=== PATIENT | female | born 1950 | race Caucasian/White ===

== ENCOUNTER → 2020-01-26 13:47 | Outpatient (BNVA) | payer MEDICARE, MEDICAID, SELFPAY | PROVIDERS: PCP Pediatrics; Visit Provider Surgery | DX: K40.90 Unilateral inguinal hernia, without obstruction or gangrene, not specified as recurrent (principal) | CPT/HCPCS: 99212 ==

== ENCOUNTER 2020-03-06 18:59 | Emergency (ER) | payer MEDICARE, MEDICAID, SELFPAY ==
[2020-03-06 19:07] VITALS: BP 185/91; PULSE 70; PULSE 74; RESP 18; TEMP 36.5; O2SAT 98; BMI 26.6
[2020-03-06 19:19] VITALS: BP 210/103; PULSE 69; RESP 18
--- NOTE | 2020-03-06 19:19 | XR_ITS ---
EXAMINATION: XR CHEST CLINICAL INFORMATION: Altered mental status COMPARISON: 12/29/2019 TECHNIQUE: Frontal view of the chest was obtained. FINDINGS: Again noted is a TAVR, spine stimulator and extensive clips in the midepigastrium. Heart size within normal limits. No evidence of CHF. Bibasilar atelectasis is seen, unchanged. XR/XR chest 1V IMPRESSION: No acute intrathoracic disease.
--- NOTE | 2020-03-06 19:19 | ECG_ITS ---
Test Reason : DIALYSIS Blood Pressure : / mmHG Vent. Rate : 075 BPM Atrial Rate : 075 BPM P-R Int : 218 ms QRS Dur : 098 ms QT Int : 434 ms P-R-T Axes : 069 -47 058 degrees QTc Int : 484 ms Sinus rhythm with 1st degree A-V block Left axis deviation Septal infarct (cited on or before 03-SEP-2014) Abnormal ECG When compared with ECG of 29-DEC-2019 09:39, QRS axis Shifted left Referred By: Bon Sanders Electronically Signed By:NEY VIVEROS
--- NOTE | 2020-03-06 19:35 | ED_ITS ---
HPI - General Adult General Chief complaint: General Medical Stated complaint: Dialysis Time Seen by Provider: 03/06/20 19:19 Source: patient Mode of arrival: EMS Limitations: no limitations History of Present Illness HPI narrative: patient's history of alcohol use cirrhosis and kidney failure on dialysis for last 1 year patient had dialysis 2 days ago and is due for dialysis tomorrow came by EMS for increased weakness lethargic since yesterday patient had chills also denied any fever cold symptoms cough shortness of breath Onset (ago): day(s) (1) Related Data Home Medications Medication Instructions Recorded Confirmed amlodipine 10 mg tablet 10 mg PO DAILY 01/26/20 aspirin 81 mg tablet,delayed 81 mg PO QAM 01/26/20 release famotidine 20 mg tablet mg PO 01/26/20 folic acid 1 mg tablet 1 mg PO DAILY 01/26/20 levothyroxine 25 mcg tablet 25 mcg PO DAILY 01/26/20 oxycodone 5 mg tablet 5 mg PO BID PRN 01/26/20 ropinirole 0.5 mg tablet 0.5 mg PO BEDTIME 01/26/20 rosuvastatin 10 mg tablet 10 mg PO BEDTIME 01/26/20 venlafaxine 37.5 mg 37.5 mg PO DAILY 01/26/20 capsule,extended release 24 hr Previous Rx's Medication Instructions Recorded cefuroxime axetil 250 mg PO BID 7 Days #14 tab 03/07/20 Allergies Allergy/AdvReac Type Severity Reaction Status Date / Time Sulfa (Sulfonamide Allergy Mild HIVES Unverified 12/16/19 15:47 Antibiotics) Heparin Analogues Allergy Unknown UNKNOWN Unverified 12/16/19 15:47 [Heparin Agents] verapamil Allergy Unknown unknown Verified 01/26/20 14:08 Review of Systems Review of Systems: REVIEW OF SYSTEMS: Pertinent positives and negatives are stated above in the history. GEN: no fever, chills+ , fatigue+ HEENT: no nasal congestion, sore throat, ear pain NEURO: no headache, dizziness, focal weakness PULM: no cough, shortness of breath CV: no chest pain, palpitations, LE edema ABD: no abdominal pain, nausea, vomiting, diarrhea : no dysuria, urgency, frequency SKIN: no rash ROS otherwise negative x 10 PMFSH Past Medical History Medical History Anemia Arthritis Asthma Bronchitis Cirrhosis COPD (chronic obstructive pulmonary disease) Coronary artery disease DJD (degenerative joint disease) of thoracic spine End-stage renal disease (ESRD) Neuropathy Surgical History History of liver transplant History of surgery on arm Social History Social History Alcohol intake: former Smoking Status: Current every day smoker Use of substances other than those prescribed or required for medical reasons: No Advance Directives: No Physical Exam Vital Signs: Vital Signs: Last Vital Signs Temp 97.4 F 03/06/20 22:32 Pulse 66 03/06/20 22:32 Resp 18 03/06/20 22:32 BP 195/104 H 03/06/20 22:32 Pulse Ox 96 03/06/20 22:32 Body Mass Index 26.6 VITAL SIGNS: Reviewed. GENERAL: Well developed, well nourished, in no acute distress. HEAD: Normocephalic/atraumatic, EYES: PERRLA No pallor/icterus noted OROPHARYNX: Oral mucosa moist no oral lesions NECK: Supple, no adenopathy LUNGS: Normal breath sounds. No adventitious sounds or accessory muscle use CARDIOVASCULAR: Regular rate and rhythm without noted murmurs, no JVD or lower extremity edema. ABDOMEN: Soft, non-tender, non-distended with normal bowel sounds. No rigidity. No guarding. No palpable masses or hernias noted MUSCULOSKELETAL: No tenderness, deformities, EXTREMITIES: No cyanosis or edema. SKIN: no rashes, ulcerations, jaundice, pallor NEUROLOGIC: Alert and oriented x 3. Strength and sensation to light touch were grossly intact normal speech Course Course Course Narrative: patient with dialysis renal failure urine shows wbc's suggestive of UTI patient feeling weak will give her IV Rocephin her lactic acid is normal white counts are normal in complaining of subjective weakness no signs of sepsis at this time will admit patient for weakness and UTI as patient lives alone and feeling weak Reevaluation(s) Reevaluation #1: pt decided to go Home by [facility] , will dc her home Medical Decision Making [facility] Narrative Medical decision making narrative: patient has nonspecific complaints weakness has slight UTI by WBC counts are normal not septic also has end-stage renal di sease plan for dialysis in the morning gave her Rocephin patient became very erratic and anxious not sure she is safe to go home as patient lives alone will get case management in 1 Lab Data Result diagrams: 03/06/20 19:37 03/06/20 20:36 Labs: Lab Results 03/06/20 03/06/20 03/06/20 Range/Units 19:37 19:37 19:37 WBC 7.1 (4.8-10.8) X10*3/uL RBC 4.53 (4.20-5.50) X10*6/uL Hgb 12.6 (12.0-16.0) g/dl Hct 40.2 (37-47) % MCV 88.7 (80-98) fL MCH 27.8 (27.0-33.0) pg MCHC 31.3 (31.0-35.0) g/dl RDW 17.2 H (11.0-16.0) % Plt Count 181 (160-400) X10*3/uL MPV 10.7 (9.4-12.3) fL Immature Gran % (Auto) 0.1 (0.0-0.4) % Neut % (Auto) 84.1 H (45-73) % Lymph % (Auto) 11.5 L (20-40) % [place]lin % (Auto) 3.5 (2-11) % Eos % (Auto) 0.4 (0-4) % Baso % (Auto) 0.4 (0-2) % Lymph # (Auto) 0.8 L (1.2-4.9) X10*3/uL [place] # (Auto) 0.3 (0.1-1.2) X10*3/uL Eos # (Auto) 0.0 (0.0-0.4) X10*3/uL Baso # (Auto) 0.0 (0.0-0.2) X10*3/uL Abs Immat Gran (auto) 0.01 (0.00-0.03) X10*3/uL Absolute Neuts (auto) 6.0 (2.0-8.3) X10*3/uL Absolute Nucleated RBC 0.000 (0.0-0.012) X10*3/uL Nucleated RBC % (auto) 0.0 (0.0-0.2) /100WBC PT (10.8-13.0) SEC INR (0.9-1.1) Sodium Cancelled Potassium Cancelled Chloride Cancelled Carbon Dioxide Cancelled Anion Gap Cancelled BUN Cancelled Creatinine Cancelled Estim Creat Clear Calc Cancelled Estimated GFR Cancelled Random Glucose Cancelled Lactic Acid 0.6 (0.5-2.0) mmol/L Calcium Cancelled Total Bilirubin Cancelled Direct Bilirubin Cancelled AST Cancelled ALT Cancelled Alkaline Phosphatase Cancelled Total Protein Cancelled Albumin Cancelled Urine Color Urine Appearance Urine pH (5.0-8.0) Ur Specific [place] (1.005-1.025) Urine Protein (NEG-TRACE) MG/DL Urine Glucose (UA) (NEG) MG/DL Urine Ketones (NEG) MG/DL Urine Blood (NEG) Urine Nitrite (NEG) Ur Leukocyte Esterase (NEG) Urine RBC (0) /HPF Urine WBC (0-4) /HPF Ur Squamous Epith Cells /LPF Urine Bacteria /LPF Coronavirus (PCR) (Negative) Influenza Type A (PCR) (Negative) Influenza Type B (PCR) (Negative) RSV RNA Qual (PCR) (Negative) 03/06/20 03/06/20 03/06/20 Range/Units 19:38 20:34 20:36 WBC (4.8-10.8) X10*3/uL RBC (4.20-5.50) X10*6/uL Hgb (12.0-16.0) g/dl Hct (37-47) % MCV (80-98) fL MCH (27.0-33.0) pg MCHC (31.0-35.0) g/dl RDW (11.0-16.0) % Plt Count (160-400) X10*3/uL MPV (9.4-12.3) fL Immature Gran % (Auto) (0.0-0.4) % Neut % (Auto) (45-73) % Lymph % (Auto) (20-40) % [place] % (Auto) (2-11) % Eos % (Auto) (0-4) % Baso % (Auto) (0-2) % Lymph # (Auto) (1.2-4.9) X10*3/uL [place] # (Auto) (0.1-1.2) X10*3/uL Eos # (Auto) (0.0-0.4) X10*3/uL Baso # (Auto) (0.0-0.2) X10*3/uL Abs Immat Gran (auto) (0.00-0.03) X10*3/uL Absolute Neuts (auto) (2.0-8.3) X10*3/uL Absolute Nucleated RBC (0.0-0.012) X10*3/uL Nucleated RBC % (auto) (0.0-0.2) /100WBC PT 11.7 (10.8-13.0) SEC INR 1.0 (0.9-1.1) Sodium 137 Potassium 5.2 H Chloride 98 Carbon Dioxide 22 Anion Gap 22 H BUN 52 H Creatinine 6.89 H* Estim Creat Clear Calc 7.5 Estimated GFR 6 Random Glucose 93 Lactic Acid (0.5-2.0) mmol/L Calcium 8.3 L Total Bilirubin 0.4 Direct Bilirubin 0.2 AST 24 ALT 14 Alkaline Phosphatase 112 Total Protein 6.5 Albumin 3.8 Urine Color Urine Appearance Urine pH (5.0-8.0) Ur Specific [place] (1.005-1.025) Urine Protein (NEG-TRACE) MG/DL Urine Glucose (UA) (NEG) MG/DL Urine Ketones (NEG) MG/DL Urine Blood (NEG) Urine Nitrite (NEG) Ur Leukocyte Esterase (NEG) Urine RBC (0) /HPF Urine WBC (0-4) /HPF Ur Squamous Epith Cells /LPF Urine Bacteria /LPF Coronavirus (PCR) NEGATIVE (Negative) Influenza Type A (PCR) NEGATIVE (Negative) Influenza Type B (PCR) NEGATIVE (Negative) RSV RNA Qual (PCR) NEGATIVE (Negative) 03/06/20 Range/Units 23:04 WBC (4.8-10.8) X10*3/uL RBC (4.20-5.50) X10*6/uL Hgb (12.0-16.0) g/dl Hct (37-47) % MCV (80-98) fL MCH (27.0-33.0) pg MCHC (31.0-35.0) g/dl RDW (11.0-16.0) % Plt Count (160-400) X10*3/uL MPV (9.4-12.3) fL Immature Gran % (Auto) (0.0-0.4) % Neut % (Auto) (45-73) % Lymph % (Auto) (20-40) % [place] % (Auto) (2-11) % Eos % (Auto) (0-4) % Baso % (Auto) (0-2) % Lymph # (Auto) (1.2-4.9) X10*3/uL [place] # (Auto) (0.1-1.2) X10*3/uL Eos # (Auto) (0.0-0.4) X10*3/uL Baso # (Auto) (0.0-0.2) X10*3/uL Abs Immat Gran (auto) (0.00-0.03) X10*3/uL Absolute Neuts (auto) (2.0-8.3) X10*3/uL Absolute Nucleated RBC (0.0-0.012) X10*3/uL Nucleated RBC % (auto) (0.0-0.2) /100WBC PT (10.8-13.0) SEC INR (0.9-1.1) Sodium Potassium Chloride Carbon Dioxide Anion Gap BUN Creatinine Estim Creat Clear Calc Estimated GFR Random Glucose Lactic Acid (0.5-2.0) mmol/L Calcium Total Bilirubin Direct Bilirubin AST ALT Alkaline Phosphatase Total Protein Albumin Urine Color YELLOW Urine Appearance HAZY Urine pH 7.5 (5.0-8.0) Ur Specific [place] 1.020 (1.005-1.025) Urine Protein 2+ H (NEG-TRACE) MG/DL Urine Glucose (UA) NEG (NEG) MG/DL Urine Ketones NEG (NEG) MG/DL Urine Blood 2+ H (NEG) Urine Nitrite NEG (NEG) Ur Leukocyte Esterase 1+ H (NEG) Urine RBC 5-9 H (0) /HPF Urine WBC 15-29 H (0-4) /HPF Ur Squamous Epith Cells 3+ /LPF Urine Bacteria 2+ /LPF Coronavirus (PCR) (Negative) Influenza Type A (PCR) (Negative) Influenza Type B (PCR) (Negative) RSV RNA Qual (PCR) (Negative) ECG Data Attestation: I personally reviewed and interpreted this ECG as follows: Interpretation: normal sinus rhythm with heart rate of 75 left axis deviation normal interval no acute ST T wave changes impression no acute ischemia Discharge Plan Discharge Clinical Impression: Weakness, Acute UTI Patient Disposition: Home, Self-Care Instructions: Weakness (ED), Urinary Tract Infection in Older Adults (ED) Additional Instructions: have dialysis in the morning as scheduled Take antibiotics for slight UTI which you have. Report to the ER if high fever vomiting not feeling good Prescriptions: New cefuroxime axetil 250 mg tablet 250 mg PO BID 7 Days Qty: 14 RF: 0 No Action oxycodone 5 mg tablet 5 mg PO BID PRNRF: 0 amlodipine 10 mg tablet 10 mg PO DAILY RF: 0 ropinirole 0.5 mg tablet 0.5 mg PO BEDTIME RF: 0 rosuvastatin 10 mg tablet 10 mg PO BEDTIME RF: 0 venlafaxine 37.5 mg capsule,extended release 24hr 37.5 mg PO DAILY RF: 0 aspirin 81 mg tablet,delayed release (DR/EC) 81 mg PO QAM RF: 0 famotidine 20 mg tablet PO RF: 0 folic acid 1 mg tablet 1 mg PO DAILY RF: 0 levothyroxine 25 mcg tablet 25 mcg PO DAILY RF: 0
[2020-03-06 19:44] LABS: MANUAL DIFF FLAG NO
[2020-03-06 19:48] LABS: Basophils Percent Auto 0.4 % (0-2); Eosinophils Percent Auto 0.4 % (0-4); Hematocrit 40.2 % (37-47); Hemoglobin 12.6 g/dl (12.0-16.0); Imm Gran Abs Auto 0.01 X10*3/uL (0.00-0.03); Imm Gran Pct Auto 0.1 % (0.0-0.4); Lymphocytes Absolute Auto 0.8 X10*3/uL (1.2-4.9); Lymphocytes Percent Auto 11.5 % (20-40); Mean Corpuscular HGB Conc 31.3 g/dl (31.0-35.0); Mean Corpuscular Hemoglobin 27.8 pg (27.0-33.0); Mean Corpuscular Volume 88.7 fL (80-98); Mean Platelet Volume 10.7 fL (9.4-12.3); Monocytes Absolute Auto 0.3 X10*3/uL (0.1-1.2); Monocytes Percent Auto 3.5 % (2-11); Neutrophils Percent Auto 84.1 % (45-73); Platelet Count 181 X10*3/uL (160-400); Red Blood Count 4.53 X10*6/uL (4.20-5.50); Red Cell Distribution Width 17.2 % (11.0-16.0); White Blood Count 7.1 X10*3/uL (4.8-10.8)
[2020-03-06 20:26] LABS: Lactic Acid 0.6 mmol/L (0.5-2.0)
[2020-03-06 20:28] LABS: Influenza A PCR NEGATIVE (Negative); Influenza B PCR NEGATIVE (Negative); Resp Syncy Virus RNA Qual PCR NEGATIVE (Negative); SARS COV2 PCR INHOUSE NEGATIVE (Negative)
[2020-03-06 20:50] LABS: Prothrombin Time 11.7 SEC (10.8-13.0)
[2020-03-06 21:43] LABS: Alanine Aminotransferase 14 U/L (0-31); Albumin Level 3.8 g/dL (3.5-5.0); Alkaline Phosphatase 112 U/L (39-117); Anion Gap 22 (12-20); Aspartate Amino Transferase 24 U/L (5-31); Bilirubin Direct 0.2 mg/dL (0.0-0.5); Bilirubin Total 0.4 mg/dL (0.0-1.0); Blood Urea Nitrogen 52 mg/dL (9-16); Calcium 8.3 mg/dL (8.4-10.2); Carbon Dioxide 22 mmol/L (22-29); Chloride 98 mmol/L (96-108); Creatinine Clr Calc Pharmacy 7.5; Estimated Glomerular Filt Rate 6; Glucose Random 93 mg/dL (60-115); Potassium 5.2 mmol/l (3.3-5.1); Sodium 137 mmol/L (135-145); Total Protein 6.5 g/dL (6.5-8.0)
[2020-03-06 22:32] VITALS: BP 195/104; PULSE 66; RESP 18; TEMP 36.3; O2SAT 96
[2020-03-06 23:10] LABS: Appearance Urine HAZY; Color Urine YELLOW; Glucose Urine UA NEG (NEG); Leukocyte Esterase Urine 1+ (NEG); Nitrite Urine NEG (NEG); PH 7.5 (5.0-8.0); Urine Blood 2+ (NEG); Urine Ketones NEG (NEG); Urine Protein 2+ MG/DL (NEG-TRACE)
[2020-03-06 23:16] LABS: Bacteria Urine 2+ /LPF; Squamous Epithelial Cell Urine 3+ /LPF
--- NOTE | 2020-03-06 23:21 | PC.NURSE ---
pt reports feeling weak and shakey. pt passed po challenge. monitoring at this time.
--- NOTE | 2020-03-07 | PC.NURSE ---
Pt stated i cant eat and drink. pt passed po challenge. without difficulty.
--- NOTE | 2020-03-07 00:03 | CT_ITS ---
EXAMINATION: CT HEAD WITHOUT CONTRAST CLINICAL INFORMATION: Altered mental status. COMPARISON: Multiple priors, most recently 12/29/2019 TECHNIQUE: Contiguous axial imaging was performed from the skull base to vertex without intravenous administration of contrast. This CT examination was performed using dose optimization techniques as appropriate, variously including the following: *Automated exposure control *Adjustment of mA and/or kV according to patient size (this includes techniques or standardized protocols for targeted exams where dose is matched to indication/reason for exam; i.e. extremities or head) *Use of iterative reconstruction technique DLP: 887 mGy-cm FINDINGS: There is no evidence of acute intracranial hemorrhage or territorial infarction. No abnormal mass effect or midline shift is seen. Villa to white matter differentiation is well preserved. No extra-axial fluid collections are identified. The ventricles are normal in size. Mild chronic white matter small vessel ischemic changes redemonstrated. The osseous structures and soft tissues are normal. The mastoid air cells and visualized portions of the paranasal sinuses are well aerated. CT/CT head/brain wo con IMPRESSION: No acute intracranial pathology.
[2020-03-07] MEDS: cefTRIAXone sodium 1 GM in 0.9 % Sodium Chloride 50 ML IV (00:27)
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
[2020-03-07 02:00] VITALS: RESP 18
--- NOTE | 2020-03-07 02:35 | PC.NURSE ---
pt now sleeping. staff remains at bedside for safety.
== END 2020-03-07 02:51 | disposition home or self-care (01) ==
PROVIDERS: Emergency Provider Internal Medicine
DX: R53.1 Weakness (principal); Z20.828 Contact with and (suspected) exposure to other viral communicable diseases; N30.00 Acute cystitis without hematuria; N18.6 End stage renal disease; Z99.2 Dependence on renal dialysis; K70.30 Alcoholic cirrhosis of liver without ascites
CPT/HCPCS: 0241U; 36415; 70450; 71045; 80048; 80076; 81001; 83605; 85025; 85610; 87040; 87086; 93005; 96365; 99284; J0696

== ENCOUNTER 2020-03-08 12:42 | Inpatient (IN) | payer MEDICARE, MEDICAID, SELFPAY ==
[2020-03-08 12:48] VITALS: BP 198/90; BP 200/91; PULSE 80; PULSE 85; RESP 16; TEMP 37; O2SAT 96; O2SAT 97; BMI 23.1
--- NOTE | 2020-03-08 13:13 | ECG_ITS ---
Test Reason : AMS Blood Pressure : / mmHG Vent. Rate : 081 BPM Atrial Rate : 081 BPM P-R Int : 204 ms QRS Dur : 108 ms QT Int : 420 ms P-R-T Axes : 053 -27 073 degrees QTc Int : 487 ms Normal sinus rhythm Septal infarct (cited on or before 03-SEP-2014) Abnormal ECG When compared with ECG of 06-MAR-2020 20:22, No significant change was found Referred By: Evelina Sterling Electronically Signed By:NEY VIVEROS
--- NOTE | 2020-03-08 13:16 | XR_ITS ---
EXAMINATION: XR CHEST CLINICAL INFORMATION: The kidneys. COMPARISON: Chest 03/06/2020 TECHNIQUE: Frontal view of the chest was obtained. FINDINGS: The lungs are well-expanded with platelike atelectasis right lung base. Rest of lungs are expanded and clear. The heart size is borderline enlarged. Pulmonary vascularity is normal. There is aortic valve stent in place. The surgical maninder in the epigastric region from previous intervention. There is a spinal electrode in mid dorsal spine. No gross bony abnormality. XR/XR chest 1V IMPRESSION: No acute process. Borderline cardiomegaly. No major change from 12/29/2019
--- NOTE | 2020-03-08 13:17 | ED.GENADULT ---
HPI - General Adult General Chief complaint: General Medical Stated complaint: diff speaking,weakness Time Seen by Provider: 03/08/20 13:03 Source: patient and EMS Mode of arrival: EMS History of Present Illness HPI narrative: 69-year-old female with a past medical history of alcohol use cirrhosis, kidney failure on dialysis (T/T/Sat), asthma, COPD, CAD, recent UTI diagnosed on 03/06, presenting to ED complaining increased lethargy/generalized fatigue & weakness. Patient was seen in the ED 2 days ago for same symptoms, plan was for admission for weakness and UTI however patient refused and went home. Patient denies taking prescribed Ceftin for UTI, also missed dialysis yesterday. Denies fever, chills, SOB/CP, abdominal pain, nausea/vomiting. Patient denies fall/trauma Onset (ago): day(s) Related Data Home Medications Medication Instructions Recorded Confirmed amlodipine 10 mg tablet 10 mg PO DAILY 01/26/20 03/08/20 aspirin 81 mg tablet,delayed 81 mg PO QAM 01/26/20 03/08/20 release famotidine 20 mg tablet 20 mg PO BID 01/26/20 03/08/20 folic acid 1 mg tablet 1 mg PO DAILY 01/26/20 03/08/20 levothyroxine 25 mcg tablet 25 mcg PO DAILY 01/26/20 03/08/20 oxycodone 5 mg tablet 5 mg PO BID PRN 01/26/20 03/08/20 ropinirole 0.5 mg tablet 0.5 mg PO BEDTIME 01/26/20 03/08/20 rosuvastatin 10 mg tablet 10 mg PO BEDTIME 01/26/20 03/08/20 venlafaxine 37.5 mg 37.5 mg PO DAILY 01/26/20 03/08/20 capsule,extended release 24 hr allopurinol 100 mg PO DAILY 03/08/20 03/08/20 docusate sodium [DOK] 100 mg PO BID 03/08/20 03/08/20 fluorouracil 1 appl TOPICAL DAILY 03/08/20 03/08/20 sevelamer carbonate 1,600 mg PO TIDAC 03/08/20 03/08/20 sucralfate 1 g PO Q6H PRN 03/08/20 03/08/20 tacrolimus 1 mg PO BID 03/08/20 03/08/20 Previous Rx's Medication Instructions Recorded cefuroxime axetil 250 mg PO BID 7 Days #14 tab 03/07/20 Allergies Allergy/AdvReac Type Severity Reaction Status Date / Time Sulfa (Sulfonamide Allergy Mild HIVES Unverified 12/16/19 15:47 Antibiotics) Heparin Analogues Allergy Unknown UNKNOWN Unverified 12/16/19 15:47 [Heparin Agents] verapamil Allergy Unknown unknown Verified 01/26/20 14:08 Review of Systems Review of Systems: Constitutional: No Weight loss, No Fever, No Chills, + Fatigue, + Malaise Cardiovascular: No Chest Pain, No SOB, No Edema, No Palpitations Respiratory: No Cough, No Sputum, No Dyspnea Gastrointestinal: No Nausea, No Vomiting, No Diarrhea, No Constipation, No Abdominal pain Genitourinary: No Dysuria, No Urinary Frequency, No Hematuria Musculoskeletal: No joint pain, No Myalgias, No Joint Swelling Skin: No Skin Lesions, No rash Neuro: + Weakness, No Numbness Yes all other systems are reviewed and are negative [facility] Past Medical History Attestation statement: The following information was validated with the patient. Medical History (Updated 03/08/20 @ 16:55 by CHUCKY Jain) Anemia Arthritis Asthma Bronchitis Cirrhosis COPD (chronic obstructive pulmonary disease) Coronary artery disease DJD (degenerative joint disease) of thoracic spine End-stage renal disease (ESRD) Neuropathy Surgical History (Updated 03/08/20 @ 16:50 by Erick Venegas MD) History of liver transplant History of surgery on arm Social History Social History Alcohol intake: unknown Smoking Status: Unknown if ever smoked Use of substances other than those prescribed or required for medical reasons: Unknown Advance Directives: No Advance Directives Information Provided: Yes Physical Exam Vital Signs: Vital Signs: Last Vital Signs Temp 98.6 F 03/08/20 14:00 Pulse 81 03/08/20 14:00 Resp 16 03/08/20 14:00 BP 189/90 H 03/08/20 14:00 Pulse Ox 98 03/08/20 14:00 Body Mass Index 23.1 Const: General: lethargic Orientation/consciousness: oriented to person, oriented to place and lethargic Limitations: no limitations HENMT: Other: Atraumatic Head: Yes normal to inspection Ears: hearing grossly normal bilaterally General nose exam: Normal external nose present Face and sinus: Yes normal facial exam Eyes: General: appearance normal, both eyes and all related structures Pupils: Equal, round and reactive pupils present EOM: EOMs intact bilaterally Neck: Neck: Yes normal visual inspection and Yes no meningeal signs Resp: Effort & Inspection: normal respiratory effort Auscultation: clear to auscultation bilaterally and no wheezes Cardio: Rate: regular rate Heart sounds: S1 normal heart sound present and S2 normal heart sound present GI: Inspection: Yes normal to inspection Palpation (GI): Soft to palpation, nontender, no guarding and not rigid Skin: Other: + ecchymosis of bilateral arms and superficial abrasions/skin tears Rashes: no rashes Neuro: General: oriented to person, oriented to place, moves all extremities, no meningeal signs and no focal motor deficits Cranial nerves: Yes Equal, round and reactive pupils present Speech: Other speech findings present (Neuro) (Slowed) Gait exam (Neuro): Normal gait present Extrem: Other: No LE edema General: Yes normal to inspection Course Course Course Narrative: -patient has been continually refusing labs, imaging, and COVID-19 swab -1600--no leukocytosis, H&H at baseline, lactic negative, ammonia WNL, troponin 105.9 > likely from renal dysfunction -head CT and CXR today without acute findings -1653--potassium 5.3, anion gap 20, BUN/creatinine elevated 84/9.0 > as anticipated due to patient missing dialysis. patient admitted to hospitalist Medical Decision Making [facility] Narrative Medical decision making narrative: 69-year-old female with a past medical history of alcohol use cirrhosis, kidney failure on dialysis (T/T/Sat), asthma, COPD, CAD, recent UTI diagnosed on 03/06, presenting to ED complaining increased lethargy/generalized fatigue & weakness. On exam hypertensive, NAD, A&Ox2, superficial bruising/skin tears noted, no focal deficits. Concern for encephalopathy/metabolic abnormalities due to ESRD and missing HD vs infectious etiology or sepsis with recent UTI not properly treated vs ICH. Plan: EKG, labs, Head CT, CXR, Lactic, Blood Cx, IV Ceftriaxone for previous UTI, anticipated admission Lab Data Result diagrams: 03/08/20 13:41 03/08/20 15:51 Labs: Lab Results 03/08/20 03/08/20 03/08/20 Range/Units 13:38 13:41 13:41 WBC 9.0 (4.8-10.8) X10*3/uL RBC 4.13 L (4.20-5.50) X10*6/uL Hgb 11.5 L (12.0-16.0) g/dl Hct 36.4 L (37-47) % MCV 88.1 (80-98) fL MCH 27.8 (27.0-33.0) pg MCHC 31.6 (31.0-35.0) g/dl RDW 17.5 H (11.0-16.0) % Plt Count 167 (160-400) X10*3/uL MPV 11.0 (9.4-12.3) fL Immature Gran % (Auto) 0.3 (0.0-0.4) % Neut % (Auto) 81.6 H (45-73) % Lymph % (Auto) 11.8 L (20-40) % [place] % (Auto) 5.3 (2-11) % Eos % (Auto) 0.3 (0-4) % Baso % (Auto) 0.7 (0-2) % Lymph # (Auto) 1.1 L (1.2-4.9) X10*3/uL [place] # (Auto) 0.5 (0.1-1.2) X10*3/uL Eos # (Auto) 0.0 (0.0-0.4) X10*3/uL Baso # (Auto) 0.1 (0.0-0.2) X10*3/uL Abs Immat Gran (auto) 0.03 (0.00-0.03) X10*3/uL Absolute Neuts (auto) 7.3 (2.0-8.3) X10*3/uL Absolute Nucleated RBC 0.000 (0.0-0.012) X10*3/uL Nucleated RBC % (auto) 0.0 (0.0-0.2) /100WBC PT 12.2 (10.8-13.0) SEC INR 1.0 (0.9-1.1) APTT 32.5 (24.1-38.0) SEC Sodium Potassium Chloride Carbon Dioxide Anion Gap BUN Creatinine Estim Creat Clear Calc Estimated GFR Random Glucose Lactic Acid 0.9 (0.5-2.0) mmol/L Calcium Magnesium Total Bilirubin Direct Bilirubin AST ALT Alkaline Phosphatase Ammonia (13-55) umol/L Troponin I High Sens (<3.5-17.0) ng/L Total Protein Albumin COVID-19 ([facility]) (Negative) COVID-19 Clin Com 03/08/20 03/08/20 03/08/20 Range/Units 13:41 13:41 14:40 WBC (4.8-10.8) X10*3/uL RBC (4.20-5.50) X10*6/uL Hgb (12.0-16.0) g/dl Hct (37-47) % MCV (80-98) fL MCH (27.0-33.0) pg MCHC (31.0-35.0) g/dl RDW (11.0-16.0) % Plt Count (160-400) X10*3/uL MPV (9.4-12.3) fL Immature Gran % (Auto) (0.0-0.4) % Neut % (Auto) (45-73) % Lymph % (Auto) (20-40) % [place] % (Auto) (2-11) % Eos % (Auto) (0-4) % Baso % (Auto) (0-2) % Lymph # (Auto) (1.2-4.9) X10*3/uL [place] # (Auto) (0.1-1.2) X10*3/uL Eos # (Auto) (0.0-0.4) X10*3/uL Baso # (Auto) (0.0-0.2) X10*3/uL Abs Immat Gran (auto) (0.00-0.03) X10*3/uL Absolute Neuts (auto) (2.0-8.3) X10*3/uL Absolute Nucleated RBC (0.0-0.012) X10*3/uL Nucleated RBC % (auto) (0.0-0.2) /100WBC PT (10.8-13.0) SEC INR (0.9-1.1) APTT (24.1-38.0) SEC Sodium Cancelled Potassium Cancelled Chloride Cancelled Carbon Dioxide Cancelled Anion Gap Cancelled BUN Cancelled Creatinine Cancelled Estim Creat Clear Calc Cancelled Estimated GFR Cancelled Random Glucose Cancelled Lactic Acid (0.5-2.0) mmol/L Calcium Cancelled Magnesium Cancelled Total Bilirubin Cancelled Direct Bilirubin Cancelled AST Cancelled ALT Cancelled Alkaline Phosphatase Cancelled Ammonia 41 (13-55) umol/L Troponin I High Sens 105.9 H (<3.5-17.0) ng/L Total Protein Cancelled Albumin Cancelled COVID-19 ([facility]) (Negative) COVID-19 Clin Com 03/08/20 03/08/20 Range/Units 15:51 16:19 WBC (4.8-10.8) X10*3/uL RBC (4.20-5.50) X10*6/uL Hgb (12.0-16.0) g/dl Hct (37-47) % MCV (80-98) fL MCH (27.0-33.0) pg MCHC (31.0-35.0) g/dl RDW (11.0-16.0) % Plt Count (160-400) X10*3/uL MPV (9.4-12.3) fL Immature Gran % (Auto) (0.0-0.4) % Neut % (Auto) (45-73) % Lymph % (Auto) (20-40) % [place] % (Auto) (2-11) % Eos % (Auto) (0-4) % Baso % (Auto) (0-2) % Lymph # (Auto) (1.2-4.9) X10*3/uL [place] # (Auto) (0.1-1.2) X10*3/uL Eos # (Auto) (0.0-0.4) X10*3/uL Baso # (Auto) (0.0-0.2) X10*3/uL Abs Immat Gran (auto) (0.00-0.03) X10*3/uL Absolute Neuts (auto) (2.0-8.3) X10*3/uL Absolute Nucleated RBC (0.0-0.012) X10*3/uL Nucleated RBC % (auto) (0.0-0.2) /100WBC PT (10.8-13.0) SEC INR (0.9-1.1) APTT (24.1-38.0) SEC Sodium 142 Potassium 5.3 H Chloride 102 Carbon Dioxide 17 L Anion Gap 28 H BUN 84 H* D Creatinine 9.02 H* Estim Creat Clear Calc 6.0 Estimated GFR 4 Random Glucose 66 Lactic Acid (0.5-2.0) mmol/L Calcium 7.3 L D Magnesium 2.2 Total Bilirubin 0.4 Direct Bilirubin 0.2 AST 28 ALT 15 Alkaline Phosphatase 105 Ammonia (13-55) umol/L Troponin I High Sens (<3.5-17.0) ng/L Total Protein 6.1 L Albumin 3.4 L COVID-19 ([facility]) Negative (Negative) COVID-19 Clin Com See Note Discharge Plan Discharge Clinical Impression: Acute UTI, AMS (altered mental status), End-stage renal disease (ESRD) Patient Disposition: Admitted As Inpatient
--- NOTE | 2020-03-08 13:38 | CT_ITS ---
EXAMINATION: CT HEAD WITHOUT CONTRAST CLINICAL INFORMATION: Fall COMPARISON: Previous head CT scans most recent from yesterday TECHNIQUE: Contiguous axial imaging was performed from the skull base to vertex without intravenous administration of contrast. This CT examination was performed using dose optimization techniques as appropriate, variously including the following: *Automated exposure control *Adjustment of mA and/or kV according to patient size (this includes techniques or standardized protocols for targeted exams where dose is matched to indication/reason for exam; i.e. extremities or head) *Use of iterative reconstruction technique DLP: 1132 mGy-cm FINDINGS: Exam is limited due to motion artifact. There is no evidence of an extra-axial collection. There is no evidence of intra-axial or extra-axial hemorrhage. The extra-axial CSF spaces adjacent to the frontal lobes are slightly prominent questionable for mild atrophy. Ventricles and extra-axial CSF spaces are otherwise appropriate. There is mild nonspecific periventricular white matter disease. No mass, mass effect or infarct is seen. Review of bone windows is normal. Visualized paranasal sinuses, mastoid air cells and middle ears are clear. CT/CT head/brain wo con IMPRESSION: No acute intracranial pathology.
--- NOTE | 2020-03-08 13:44 | PC.NURSE ---
Pt is admentally refusing COVID swab, swearing, yelling I dont have it , confused alert and oriented to place and person. Will attempt to swab at a later time
[2020-03-08 13:51] LABS: MANUAL DIFF FLAG NO
[2020-03-08 13:54] LABS: Basophils Absolute Auto 0.1 X10*3/uL (0.0-0.2); Basophils Percent Auto 0.7 % (0-2); Eosinophils Percent Auto 0.3 % (0-4); Hematocrit 36.4 % (37-47); Hemoglobin 11.5 g/dl (12.0-16.0); Imm Gran Abs Auto 0.03 X10*3/uL (0.00-0.03); Imm Gran Pct Auto 0.3 % (0.0-0.4); Lymphocytes Absolute Auto 1.1 X10*3/uL (1.2-4.9); Lymphocytes Percent Auto 11.8 % (20-40); Mean Corpuscular HGB Conc 31.6 g/dl (31.0-35.0); Mean Corpuscular Hemoglobin 27.8 pg (27.0-33.0); Mean Corpuscular Volume 88.1 fL (80-98); Monocytes Absolute Auto 0.5 X10*3/uL (0.1-1.2); Monocytes Percent Auto 5.3 % (2-11); Neutrophils Absolute Auto 7.3 X10*3/uL (2.0-8.3); Neutrophils Percent Auto 81.6 % (45-73); Platelet Count 167 X10*3/uL (160-400); Red Blood Count 4.13 X10*6/uL (4.20-5.50); Red Cell Distribution Width 17.5 % (11.0-16.0)
[2020-03-08 14:00] VITALS: BP 189/90; PULSE 81; RESP 16; TEMP 37; O2SAT 98
[2020-03-08 14:02] LABS: Prothrombin Time 12.2 SEC (10.8-13.0)
[2020-03-08 14:05] LABS: Partial Thromboplastin Time 32.5 SEC (24.1-38.0)
--- NOTE | 2020-03-08 14:12 | PC.NURSE ---
Pt refusing most/all care at this time, fixated on COVID test, attempted to re-direct/give reassurance, pt remains agitated/confused, attempting to get oob, not allowing IV fluids/labs/ ekg. Provider aware
[2020-03-08 14:30] LABS: Lactic Acid 0.9 mmol/L (0.5-2.0)
[2020-03-08 14:33] LABS: Troponin-I High Sensitivity 105.9 ng/L (<3.5-17.0)
[2020-03-08] MEDS: LORazepam 2 MG/ML VIAL 1 MG IVPUSH (14:56)
[2020-03-08] MEDS: 0.9 % Sodium Chloride 1,000 ML 999 ML IVCONT (14:56)
[2020-03-08] MEDS: cefTRIAXone sodium 1 GM in 0.9 % Sodium Chloride 50 ML IV (14:56)
--- NOTE | 2020-03-08 15:06 | PC.NURSE ---
Called sister, Jena, with darcy and dr. chan, pt hesitant but agreeable to additional labs and medication, medicated per mar after much redirection, pt remains confused, agitated, and sometimes physically combative.
[2020-03-08 15:20] LABS: Ammonia 41 umol/L (13-55)
--- NOTE | 2020-03-08 16:23 | PC.NURSE ---
Pt is sleeping on and off, remains mildly agitated when awoke. Dr. Neal able to obtain covid swab.
[2020-03-08 16:44] LABS: COVID-19 Test Negative (Negative); IDNOW Serial# 9DD0AD1C
[2020-03-08 16:45] LABS: Alanine Aminotransferase 15 U/L (0-31); Albumin Level 3.4 g/dL (3.5-5.0); Alkaline Phosphatase 105 U/L (39-117); Anion Gap 28 (12-20); Aspartate Amino Transferase 28 U/L (5-31); Bilirubin Direct 0.2 mg/dL (0.0-0.5); Bilirubin Total 0.4 mg/dL (0.0-1.0); Blood Urea Nitrogen 84 mg/dL (9-16); Calcium 7.3 mg/dL (8.4-10.2); Carbon Dioxide 17 mmol/L (22-29); Chloride 102 mmol/L (96-108); Estimated Glomerular Filt Rate 4; Glucose Random 66 mg/dL (60-115); Magnesium 2.2 mg/dL (1.6-2.6); Potassium 5.3 mmol/l (3.3-5.1); Sodium 142 mmol/L (135-145); Total Protein 6.1 g/dL (6.5-8.0)
--- NOTE | 2020-03-08 16:55 | PM.IMHP ---
History of Present Illness Date of Service: 03/08/20 Chief Complaint: ams 69F Past med history of end-stage renal disease on hemodialysis and history of alcoholic cirrhosis status post liver transplant with functioning liver. Was sent in by her sister due to altered mental status. Patient was in ED 2 days prior to presentation with similar presentation. At that time she was alert enough to leave against medical advice. Workup at that point revealed urine with positive and wbc's, thought to be UTI, however, urine cultures since been negative. Patient continued to decline, she does not eat or drink very well. She was too weak to go day hemodialysis her last session which was Friday. It is unclear whether she went last Friday. Patient's sister came to visit her on day of presentation and found extremely lethargic, minimally verbal, unable to get out of bed, therefore called ambulance. Patient herself is not participatory or following commands or answering any questions. in ED labs Significant for increase in BUN from 52 to 84. Review of Systems Review of Systems: Constitutional: Denies fever, denies Chills, weak, no appetite Eyes: denies blurry vision ENT: denies sore throat CVS: denies chest pain Respiratory: Denies dyspnea GI: no abdominal pain : denies dysuria MSK: denies neck pain Skin: denies rash Neuro: motor weakness Psych: denies suicidal ideation Endocrine: denies heat/cold intoleratnce Hematologic: denies easy bleeding Allergy: denies hives [facility] Medical History Anemia Arthritis Asthma Bronchitis Cirrhosis COPD (chronic obstructive pulmonary disease) Coronary artery disease DJD (degenerative joint disease) of thoracic spine End-stage renal disease (ESRD) Neuropathy Pertinent family history: denies cad Surgical History History of liver transplant History of surgery on arm Social History (Updated 03/08/20 @ 16:59 by Erick Venegas MD) Alcohol intake: former Smoking Status: Unknown if ever smoked Use of substances other than those prescribed or required for medical reasons: Unknown Advance Directives: No Advance Directives Information Provided: Yes Meds Allergies Allergy/AdvReac Type Severity Reaction Status Date / Time Sulfa (Sulfonamide Allergy Mild HIVES Unverified 12/16/19 15:47 Antibiotics) Heparin Analogues Allergy Unknown UNKNOWN Unverified 12/16/19 15:47 [Heparin Agents] verapamil Allergy Unknown unknown Verified 01/26/20 14:08 Home Medications Medication Instructions Recorded Confirmed Type amlodipine 10 mg tablet 10 mg PO DAILY 01/26/20 03/08/20 History aspirin 81 mg tablet,delayed 81 mg PO QAM 01/26/20 03/08/20 History release famotidine 20 mg tablet 20 mg PO BID 01/26/20 03/08/20 History folic acid 1 mg tablet 1 mg PO DAILY 01/26/20 03/08/20 History levothyroxine 25 mcg tablet 25 mcg PO DAILY 01/26/20 03/08/20 History oxycodone 5 mg tablet 5 mg PO BID PRN 01/26/20 03/08/20 History ropinirole 0.5 mg tablet 0.5 mg PO BEDTIME 01/26/20 03/08/20 History rosuvastatin 10 mg tablet 10 mg PO BEDTIME 01/26/20 03/08/20 History venlafaxine 37.5 mg 37.5 mg PO DAILY 01/26/20 03/08/20 History capsule,extended release 24 hr allopurinol 100 mg PO DAILY 03/08/20 03/08/20 History docusate sodium [DOK] 100 mg PO BID 03/08/20 03/08/20 History fluorouracil 1 appl TOPICAL DAILY 03/08/20 03/08/20 History sevelamer carbonate 1,600 mg PO TIDAC 03/08/20 03/08/20 History sucralfate 1 g PO Q6H PRN 03/08/20 03/08/20 History tacrolimus 1 mg PO BID 03/08/20 03/08/20 History Physical Exam Vital Signs and Narrative: Vital Signs: Last Vital Signs Temp 98.6 F 03/08/20 14:00 Pulse 81 03/08/20 14:00 Resp 16 03/08/20 14:00 BP 189/90 H 03/08/20 14:00 Pulse Ox 98 03/08/20 14:00 Body Mass Index 23.1 General: lethargic but awake, not answering questions HEENT: atraumatic Neck: normal to visual inspection CVS: S1, S2, RRR Resp: CTA bilateral Chest: non tender GI: soft, non tender, non distended : no CVA tenderness Skin: no rashes Extremities: no edema Neuro: grossly intact, not participatory Psych: impaired insight Results Labs CBC and Chem 7: 03/08/20 13:41 03/08/20 15:51 Labs: Laboratory Results - last 24 hr 03/08/20 03/08/20 03/08/20 13:38 13:41 13:41 MCV 88.1 MCH 27.8 MCHC 31.6 RDW 17.5 H Plt Count 167 MPV 11.0 Immature Gran % (Auto) 0.3 Neut % (Auto) 81.6 H Lymph % (Auto) 11.8 L [place] % (Auto) 5.3 Eos % (Auto) 0.3 Baso % (Auto) 0.7 Lymph # (Auto) 1.1 L [place] # (Auto) 0.5 Eos # (Auto) 0.0 Baso # (Auto) 0.1 Abs Immat Gran (auto) 0.03 Absolute Neuts (auto) 7.3 Absolute Nucleated RBC 0.000 Nucleated RBC % (auto) 0.0 PT 12.2 INR 1.0 APTT 32.5 Anion Gap Estim Creat Clear Calc Estimated GFR Random Glucose Lactic Acid 0.9 Calcium Magnesium Total Bilirubin Direct Bilirubin AST ALT Alkaline Phosphatase Ammonia Troponin I High Sens Total Protein Albumin COVID-19 ([facility]) COVID-[place] 03/08/20 03/08/20 03/08/20 13:41 13:41 14:40 MCV MCH MCHC RDW Plt Count MPV Immature Gran % (Auto) Neut % (Auto) Lymph % (Auto) [place] % (Auto) Eos % (Auto) Baso % (Auto) Lymph # (Auto) [place] # (Auto) Eos # (Auto) Baso # (Auto) Abs Immat Gran (auto) Absolute Neuts (auto) Absolute Nucleated RBC Nucleated RBC % (auto) PT INR APTT Anion Gap Cancelled Estim Creat Clear Calc Cancelled Estimated GFR Cancelled Random Glucose Cancelled Lactic Acid Calcium Cancelled Magnesium Cancelled Total Bilirubin Cancelled Direct Bilirubin Cancelled AST Cancelled ALT Cancelled Alkaline Phosphatase Cancelled Ammonia 41 Troponin I High Sens 105.9 H Total Protein Cancelled Albumin Cancelled COVID-19 ([facility]) COVID-Close Com 03/08/20 03/08/20 15:51 16:19 MCV MCH MCHC RDW Plt Count MPV Immature Gran % (Auto) Neut % (Auto) Lymph % (Auto) [place] % (Auto) Eos % (Auto) Baso % (Auto) Lymph # (Auto) [place] # (Auto) Eos # (Auto) Baso # (Auto) Abs Immat Gran (auto) Absolute Neuts (auto) Absolute Nucleated RBC Nucleated RBC % (auto) PT INR APTT Anion Gap 28 H Estim Creat Clear Calc 6.0 Estimated GFR 4 Random Glucose 66 Lactic Acid Calcium 7.3 L D Magnesium 2.2 Total Bilirubin 0.4 Direct Bilirubin 0.2 AST 28 ALT 15 Alkaline Phosphatase 105 Ammonia Troponin I High Sens Total Protein 6.1 L Albumin 3.4 L COVID-19 ([facility]) Negative COVID-19 Clin Com See Note Imaging Radiologist's Impressions: Impressions Chest X-Ray 03/08/20 13:16 IMPRESSION: No acute process. Borderline cardiomegaly. No major change from 12/29/[address] 03/08/20 13:38 IMPRESSION: No acute intracranial pathology. Assessment and Plan (1) Metabolic encephalopathy: Status: Acute (2) Cirrhosis: Problem details: s/p transplant, liver functioning Status: Acute (3) End-stage renal disease (ESRD): Status: Acute 69F presented with weaknes, ams metabolic encephalopathy differential: Uremic encephalopathy from missing hemodialysis, malnutrition, UTI, pseudodementia from depression nephrology consult psych eval empiric ceftriaxone hold ropinorole, oxycodone history of liver cirrhosis status post transplant continue tacrolimus cad asa, crestor
[2020-03-08 17:20] VITALS: BP 182/84; PULSE 83; RESP 14; TEMP 36.8; O2SAT 95
[2020-03-08 17:56] LABS: Troponin-I High Sensitivity 97.2 ng/L (<3.5-17.0)
[2020-03-08 18:57] VITALS: BP 179/84; PULSE 84; RESP 16; O2SAT 98
[2020-03-08 21:11] VITALS: BP 203/91; PULSE 88; RESP 19; TEMP 36.2; O2SAT 96
--- NOTE | 2020-03-08 22:47 | PC.NURSE ---
PATIENT VERY ANXIOUS,IRRITATED,CONFUSED AND UNCOOPERATIVE.HIGH BP 203/91,REFUSED RECHECK AND MEDS.DR BEE NOTIFIED VIA [employer].NO NEW ORDERS OF THIS POINT.
[2020-03-08 23:56] VITALS: BP 196/94; PULSE 81; RESP 20; TEMP 36.6; O2SAT 98
[2020-03-09] VITALS (7 sets, daily range): BP systolic 166–198; BP diastolic 82–104; PULSE 78–128; RESP 18–20; TEMP 36.2–36.9; O2SAT 95–99
[2020-03-09] MEDS: 0.9 % Sodium Chloride Flush 3 ML SYRINGE IVFLUSH ×2 (00:05→08:52)
[2020-03-09] MEDS: hydrOXYzine HCL 25 MG TABLET PO (00:47)
[2020-03-09 06:36] LABS: MANUAL DIFF FLAG NO
[2020-03-09 06:40] LABS: Basophils Absolute Auto 0.1 X10*3/uL (0.0-0.2); Basophils Percent Auto 0.7 % (0-2); Eosinophils Absolute Auto 0.1 X10*3/uL (0.0-0.4); Hematocrit 34.6 % (37-47); Hemoglobin 11.3 g/dl (12.0-16.0); Imm Gran Abs Auto 0.02 X10*3/uL (0.00-0.03); Imm Gran Pct Auto 0.3 % (0.0-0.4); Lymphocytes Absolute Auto 1.4 X10*3/uL (1.2-4.9); Lymphocytes Percent Auto 18.9 % (20-40); Mean Corpuscular HGB Conc 32.7 g/dl (31.0-35.0); Mean Corpuscular Hemoglobin 28.5 pg (27.0-33.0); Mean Corpuscular Volume 87.4 fL (80-98); Mean Platelet Volume 11.2 fL (9.4-12.3); Monocytes Absolute Auto 0.6 X10*3/uL (0.1-1.2); Neutrophils Absolute Auto 5.2 X10*3/uL (2.0-8.3); Neutrophils Percent Auto 71.1 % (45-73); Platelet Count 148 X10*3/uL (160-400); Red Blood Count 3.96 X10*6/uL (4.20-5.50); Red Cell Distribution Width 17.3 % (11.0-16.0); White Blood Count 7.3 X10*3/uL (4.8-10.8)
[2020-03-09 07:42] LABS: Anion Gap 30 (12-20); Blood Urea Nitrogen 94 mg/dL (9-16); Calcium 8.2 mg/dL (8.4-10.2); Carbon Dioxide 15 mmol/L (22-29); Chloride 101 mmol/L (96-108); Creatinine Clr Calc Pharmacy 5.2; Estimated Glomerular Filt Rate 4; Glucose Random 67 mg/dL (60-115); Potassium 5.6 mmol/l (3.3-5.1); Sodium 140 mmol/L (135-145)
[2020-03-09] MEDS: Venlafaxine HCl ER 37.5 MG CAP.ER.24H PO (08:51)
[2020-03-09] MEDS: amLODIPine Besylate 10 MG TABLET PO (08:51)
[2020-03-09] MEDS: Folic Acid 1 MG TABLET PO (08:51)
[2020-03-09] MEDS: Famotidine 20 MG TABLET PO (08:51)
[2020-03-09] MEDS: Tacrolimus 1 MG CAPSULE PO (08:51)
[2020-03-09] MEDS: Docusate Sodium 100 MG CAPSULE PO (08:51)
[2020-03-09] MEDS: Aspirin Enteric Coated 81 MG TABLET.DR PO (08:52)
[2020-03-09] MEDS: allopurinoL 100 MG TABLET PO (08:52)
--- NOTE | 2020-03-09 09:36 | MHC.CM.PN ---
CM met with pt who reports she lives alone but her son has been staying with her. She initially said he was there to help but later said he was not cooperative . pt reported having no services but being open top having referrals made if services were recommended. pt was able to provide some information but did have moments of difficulty and would pause or say I don't know . pt informed that her sister would be contacted for more information. Pt agreeable. Pts medicare rights explained to her. CM contacted pts sister/HCP, Jena Flowers ([phone]) who reports the pt does live alone but her son has been there quite a long time and refuses to leave. Jena reports the pt will lose her home if they discover her son is staying there. she states [place] has asked him to leave and he just doesn't. Jena reports the pt is also a hoarder. She expresses concern that if pt requires home services, a report may be filed due to the pts son being there and the condition of the home. Jena reports the pt does not have services at home and uses a rollator to ambulate. Pt lives in [facility] in [place], [place]. Pt goes to HD Tue-Carla-Sat at [facility] in [place]. According to pts sister, she typically goes as scheduled however they sometimes have difficulty due to not being able to access pts veins. Jena reports the pt usually drives herself to HD and at baseline is independent with no memory impairment. Current DC plan is TBD, home vs home with [facility] and [facility] referral.
--- NOTE | 2020-03-09 10:20 | MHC.CLN ---
CHANGED DIET PER RENAL R/T ESRD ON HD
--- NOTE | 2020-03-09 10:21 | P.PNIM_ITS ---
Subjective Subjective Date of Service: 03/09/20 Interval History: more alert, but weak, doesnt remember much from yesterday Cardiovascular Cardiovascular: Reports no additional cardiovascular complaints Respiratory Respiratory: Reports no additional respiratory complaints Physical Exam Vital Signs: Vital Signs: Last Vital Signs Temp 97.9 F 03/09/20 08:00 Pulse 80 03/09/20 08:00 Resp 20 03/09/20 08:00 BP 187/84 H 03/09/20 08:00 Pulse Ox 97 03/09/20 08:00 Body Mass Index 23.1 General: lethargic, slow speech, chronically ill appearing, no acute distress Resp: CTA bilateral CVS: S1,S2,RRR GI: soft, non tender, non distended Neuro: motor grossly intact Psych: impaired insight Objective Data Current Medications Generic Name Dose Route Start Last Admin Trade Name Freq PRN Reason Stop Dose Admin Allopurinol 100 mg 03/09/20 09:00 03/09/20 08:52 Allopurinol 100 Mg Tablet PO 100 mg DAILY [facility] Administration Amlodipine Besylate 10 mg 03/09/20 09:00 03/09/20 08:51 Amlodipine Besylate 10 Mg Tablet PO 10 mg DAILY [facility] Administration Protocol Aspirin 81 mg 03/09/20 09:00 03/09/20 08:52 Aspirin Enteric Coated 81 Mg Tablet.Dr PO 81 mg DAILY [facility] Administration Atorvastatin Calcium 40 mg 03/08/20 21:00 03/08/20 21:28 Atorvastatin Calcium 40 Mg Tablet PO Not Given BEDTIME [facility] Docusate Sodium 100 mg 03/08/20 21:00 03/09/20 08:51 Docusate Sodium 100 Mg Capsule PO 100 mg BID [facility] Administration Famotidine 20 mg 03/08/20 21:00 03/09/20 08:51 Famotidine 20 Mg Tablet PO 20 mg BID [facility] Administration Folic Acid 1 mg 03/09/20 09:00 03/09/20 08:51 Folic Acid 1 Mg Tablet PO 1 mg DAILY [facility] Administration Ceftriaxone Sodium 1 gm/ 50 mls @ 100 mls/hr 03/09/20 15:00 Sodium Chloride IV Q24H [facility] Levothyroxine Sodium 25 mcg 03/09/20 06:30 03/09/20 06:17 Levothyroxine Sodium 25 Mcg Tablet PO Not Given DAILY@0630 [facility] Pharmacy Consult 1 each 03/08/20 13:13 Consult Rx Perform Med Rec MISCELLANE ONCE PRN Consult order Sevelamer HCl 1,600 mg 03/09/20 07:30 03/09/20 08:51 Sevelamer Hcl 800 Mg Tablet PO 1,600 mg TIDAC [facility] Administration Sodium Chloride 3 ml 03/09/20 00:00 03/09/20 08:52 0.9 % Sodium Chloride Flush 3 Ml Syringe IVFLUSH 3 ml QSHIFT [facility] Administration Sucralfate 1 gm 03/08/20 16:43 Sucralfate 1 Gm Tablet PO Q6H PRN pain Tacrolimus 1 mg 03/08/20 21:00 03/09/20 08:51 Tacrolimus 1 Mg Capsule PO 1 mg BID [facility] Administration Trazodone HCl 25 mg 03/09/20 21:00 Trazodone Hcl 25 Mg Halftab PO BEDTIME [facility] Venlafaxine HCl 37.5 mg 03/09/20 09:00 03/09/20 08:51 Venlafaxine Hcl Er 37.5 Mg Cap.Er.24h PO 37.5 mg DAILY [facility] Administration Labs CBC & Chem 7: 03/09/20 05:53 03/09/20 05:53 Assessment and Plan (1) Metabolic encephalopathy: Status: Acute (2) Cirrhosis: Problem details: s/p transplant, liver functioning Status: Acute (3) End-stage renal disease (ESRD): Status: Acute Assessment and Plan: 69F presented with weaknes, ams metabolic encephalopathy likely multifactorial differential includes: Uremic encephalopathy from missing hemodialysis, malnutrition, UTI, pseudodementia from depression plan for HD today a bit more alert today psych eval continue empiric ceftriaxone continue to hold ropinorole, oxycodone history of liver cirrhosis status post transplant continue tacrolimus cad asa, crestor
--- NOTE | 2020-03-09 10:41 | PM.PNNEP ---
Subjective Subjective Date of Service: 03/09/20 Interval history: remains weak, no complaints today, has difficulty finding words Physical Exam Vital Signs: Vital Signs: Last Vital Signs Temp 97.9 F 03/09/20 08:00 Pulse 80 03/09/20 08:00 Resp 20 03/09/20 08:00 BP 187/84 H 03/09/20 08:00 Pulse Ox 97 03/09/20 08:00 Body Mass Index 23.1 oral moist mucosa lungs clear s1s2 abd soft +BSs ext no edema LUE AVF+thrill neuro difficultyr finding words, non focal Assessment & Plan Assessment and plan (1) End-stage renal disease (ESRD): Problem details: missed HD on friday, patient will have HD today Status: Acute (2) AMS (altered mental status): Problem details: ?UTI related, usually missing one treatment of dialysis does not cause this degree of encephalopathy, would check ammonia levels, consider decrease opioids (not sure who prescribes as outpt), treat for UTI, and follow course post dialysis. consider MRI brain and neuro eval if no improvement post HD Pt on Immunosuppression consider ADMINISTRATIVE PROCESSOR infectious processes if no improvement. Status: Acute (3) Hyperkalemia: Problem details: HD today Status: Acute (4) Cirrhosis: Problem details: s/p transplant, liver functioning, on TACROLIMUS Continue immunosuppressive therapy. Status: Acute Assessment and Plan: HD and plan as otlined above. will keep HD on TTS as per her regimen. Resume phos binders address HTN on amlodipine 10 mg daily, if persistent HTN start carvedilol 12.5 mg PO BID and use hydralazine 10 mg IV Q 4 hr prn for SBP>170 Time Spent With Patient Time: Total time spent is greater than 50% in coordination of care (as documented) at patient's floor/unit and/or counseling patient:
--- NOTE | 2020-03-09 13:52 | CONS_ITS ---
DATE OF SERVICE: 03/09/2020 REASON FOR CONSULTATION: Evaluation of end-stage kidney disease, due for hemodialysis. HISTORY OF PRESENT ILLNESS: Ms. Chery is a very pleasant 69-year-old female with known medical history of end-stage kidney disease on intermittent hemodialysis at the [facility] on Friday, , Friday, who was brought into [facility] for evaluation of change in mental status. The patient has been in the emergency room prior to this visit a couple of days before for evaluation of increased weakness and UTI. She was prescribed antibiotics/Ceftin for UTI and was sent back home. Subsequently, came 2 days later with increasing change in mental status. The patient was very lethargic and reported increased fatigue and weakness. Along with this, she had some bruising and skin tears on her right hand. She missed her dialysis treatment on Friday. On evaluation, she was found to have a white count of 9000, hemoglobin of 11.5, a potassium of 5.3, a BUN of 84 mg/dL and a creatinine of 9 mg/dL. Repeat lab earlier this morning showed a potassium level of 5.6, a BUN of 94 and a creatinine of 10 mg/dL. Her blood pressure has been elevated up to 187/84. The patient continues to report very weak and has had difficulty finding words. PAST MEDICAL HISTORY: As mentioned above, ESRD on intermittent hemodialysis on Friday, , and Friday; liver cirrhosis with history of liver transplant, on tacrolimus long-term therapy; hyperlipidemia; depression; gout; hypertension; hypothyroidism; degenerative joint disease; COPD. OUTPATIENT MEDICATIONS: Include amlodipine 10 mg daily, baby aspirin 81 mg a day, famotidine 20 mg twice a day, folic acid 1 mg daily, levothyroxine 25 mcg daily, oxycodone 5 mg b.i.d. p.r.n., ropinirole 0.5 mg daily at bedtime, rosuvastatin 10 mg daily at bedtime, venlafaxine 37.5 mg daily, allopurinol 100 mg daily, Colace 100 mg twice a day, sevelamer 1600 mg 3 times a day with meals, sucralfate 1 gram q.6 hours p.r.n., and tacrolimus 1 mg twice a day. PAST SURGICAL HISTORY: As mentioned above. Orthotopic liver transplantation in the past, history of left upper extremity AV fistula creation. ALLERGIES: SULFAS, HEPARIN, AND VERAPAMIL. REVIEW OF SYSTEMS: The patient reports increased weakness, fatigue, difficulty finding words as mentioned above. Denies any nausea, vomiting, diarrhea, abdominal pain, melena, headache, visual changes, chest pain, shortness of breath, palpitations, cough, hemoptysis, hematemesis, or bright red blood per rectum. Rest of the 10-point review of systems is negative. LABORATORY DATA: As mentioned above. In addition, a chest x-ray showed no infiltrates. Head CT showed no acute intracranial pathology. IMPRESSION: Ms. Chery is a very pleasant 69-year-old female with known history of end-stage kidney disease on intermittent hemodialysis on Friday, , and Friday, who has been admitted to the hospital with change in mental status, increased weakness, fatigue, previous urinary tract infection; on oral antibiotics. She has missed her dialysis treatment on Friday. She has continued to have increased symptoms of lethargy, likely associated with worsening encephalopathic disorder. She has been evaluated by Psych during hospital stay. She was started on IV antibiotics for urinary tract infection, and presently she is due for dialysis today. 1. End-stage renal disease. 2. History of liver cirrhosis status post liver transplantation, on long-term immunosuppression. 3. History of hypertension. 4. Recent urinary tract infection. RECOMMENDATIONS: She does have some degree of encephalopathy possibly associated with lack of dialysis and recent infection. The concern would be also for hepatic encephalopathy associated with her current state. At the present time, I would like her to arrange for dialysis treatment today as per her usual regimen x4 hours through her left upper arm AV fistula. I agree with the use of antibiotics for urinary tract infection. Check liver function studies and pneumonia. If mental status does not clear, consider MRI of the brain and Neurology consultation. She may also benefit from Mary-psych evaluation. At the end she was tested for COVID-19 which was negative. We will continue to follow during the hospital stay. Thank you for the consultation. Best regards, MD ROSANA Galeano/RD / [id number]
--- NOTE | 2020-03-09 15:36 | P.CNPS_ITS ---
History of Present Illness Date of Service: 03/09/2020 Chief Complaint: ams Reason for Consult: Depression, decreased appetite Requesting physician: Erick Venegas Discussed with referring provider: Yes Sources of Information: patient interviewed and chart reviewed HPI Narrative: patient is a 69 year old female with ESRD on HD, currently medically admitted with AMS after sister found her to be weak, minimally verbally responsive and unable to get out of bed. She also missed HD earlier this week. Pt seen in room 454. Awake, though appeared to be quite drowsy. Difficulty with word finding , slowed speech, minimal responses, displeased with having to answer questions. Denies any depressive sx, declines any medication changes to current antidepressants. Reports her PCP manges those medications and she can change them if she thinks I need it . Review of Systems Review of Systems Yes Unobtainable due to mental status (lethargic) [facility] Medical History Anemia Arthritis Asthma Bronchitis Cirrhosis COPD (chronic obstructive pulmonary disease) Coronary artery disease DJD (degenerative joint disease) of thoracic spine End-stage renal disease (ESRD) Neuropathy Surgical History History of liver transplant History of surgery on arm Diagnostics Vital Signs (24Hr): Vital Signs - 24 hr 03/08/20 17:20 03/08/20 18:57 03/08/20 21:11 Temperature 98.2 F 97.2 F Pulse Rate 83 84 88 Respiratory Rate 14 16 19 Blood Pressure 182/84 H 179/84 H 203/91 H Pulse Oximetry 95 98 96 03/08/20 23:56 03/09/20 04:00 03/09/20 08:00 Temperature 98 F 98.1 F 97.9 F Pulse Rate 81 85 80 Respiratory Rate 20 18 20 Blood Pressure 196/94 H 198/82 H 187/84 H Pulse Oximetry 98 97 97 03/09/20 12:00 03/09/20 15:29 Temperature 98.5 F 97.2 F Pulse Rate 83 78 Respiratory Rate 20 20 Blood Pressure 173/85 H 179/89 H Pulse Oximetry 99 95 Body Mass Index 23.1 Labs Results: 03/09/20 05:53 03/09/20 05:53 Labs: Laboratory Results - last 48 hr 03/08/20 03/08/2020 13:38 13:41 13:41 WBC 9.0 RBC 4.13 L Hgb 11.5 L Hct 36.4 L MCV 88.1 MCH 27.8 MCHC 31.6 RDW 17.5 H Plt Count 167 MPV 11.0 Immature Gran % (Auto) 0.3 Neut % (Auto) 81.6 H Lymph % (Auto) 11.8 L Coal % (Auto) 5.3 Eos % (Auto) 0.3 Baso % (Auto) 0.7 Lymph # (Auto) 1.1 L Coal # (Auto) 0.5 Eos # (Auto) 0.0 Baso # (Auto) 0.1 Abs Immat Gran (auto) 0.03 Absolute Neuts (auto) 7.3 Absolute Nucleated RBC 0.000 Nucleated RBC % (auto) 0.0 PT 12.2 INR 1.0 APTT 32.5 Sodium Potassium Chloride Carbon Dioxide Anion Gap BUN Creatinine Estim Creat Clear Calc Estimated GFR Random Glucose Lactic Acid 0.9 Calcium Magnesium Total Bilirubin Direct Bilirubin AST ALT Alkaline Phosphatase Ammonia Troponin I High Sens Total Protein Albumin COVID-19 ([facility]) COVID-19 [employer] 03/08/20 03/08/20 03/08/20 13:41 13:41 14:40 WBC RBC Hgb Hct MCV MCH MCHC RDW Plt Count MPV Immature Gran % (Auto) Neut % (Auto) Lymph % (Auto) Coal % (Auto) Eos % (Auto) Baso % (Auto) Lymph # (Auto) Coal # (Auto) Eos # (Auto) Baso # (Auto) Abs Immat Gran (auto) Absolute Neuts (auto) Absolute Nucleated RBC Nucleated RBC % (auto) PT INR APTT Sodium Cancelled Potassium Cancelled Chloride Cancelled Carbon Dioxide Cancelled Anion Gap Cancelled BUN Cancelled Creatinine Cancelled Estim Creat Clear Calc Cancelled Estimated GFR Cancelled Random Glucose Cancelled Lactic Acid Calcium Cancelled Magnesium Cancelled Total Bilirubin Cancelled Direct Bilirubin Cancelled AST Cancelled ALT Cancelled Alkaline Phosphatase Cancelled Ammonia 41 Troponin I High Sens 105.9 H Total Protein Cancelled Albumin Cancelled COVID-19 ([facility]) COVID-19 [employer] 03/08/20 03/08/20 03/08/20 15:51 16:19 17:18 WBC RBC Hgb Hct MCV MCH MCHC RDW Plt Count MPV Immature Gran % (Auto) Neut % (Auto) Lymph % (Auto) Coal % (Auto) Eos % (Auto) Baso % (Auto) Lymph # (Auto) Coal # (Auto) Eos # (Auto) Baso # (Auto) Abs Immat Gran (auto) Absolute Neuts (auto) Absolute Nucleated RBC Nucleated RBC % (auto) PT INR APTT Sodium 142 Potassium 5.3 H Chloride 102 Carbon Dioxide 17 L Anion Gap 28 H BUN 84 H* D Creatinine 9.02 H* Estim Creat Clear Calc 6.0 Estimated GFR 4 Random Glucose 66 Lactic Acid Calcium 7.3 L D Magnesium 2.2 Total Bilirubin 0.4 Direct Bilirubin 0.2 AST 28 ALT 15 Alkaline Phosphatase 105 Ammonia Troponin I High Sens 97.2 H Total Protein 6.1 L Albumin 3.4 L COVID-19 ([facility]) Negative COVID-19 Clin Com See Note 03/09/20 03/09/20 05:53 05:53 WBC 7.3 RBC 3.96 L Hgb 11.3 L Hct 34.6 L MCV 87.4 MCH 28.5 MCHC 32.7 RDW 17.3 H Plt Count 148 L MPV 11.2 Immature Gran % (Auto) 0.3 Neut % (Auto) 71.1 Lymph % (Auto) 18.9 L Coal % (Auto) 8.0 Eos % (Auto) 1.0 Baso % (Auto) 0.7 Lymph # (Auto) 1.4 Coal # (Auto) 0.6 Eos # (Auto) 0.1 Baso # (Auto) 0.1 Abs Immat Gran (auto) 0.02 Absolute Neuts (auto) 5.2 Absolute Nucleated RBC 0.000 Nucleated RBC % (auto) 0.0 PT INR APTT Sodium 140 Potassium 5.6 H Chloride 101 Carbon Dioxide 15 L Anion Gap 30 H BUN 94 H* Creatinine 10.32 H* Estim Creat Clear Calc 5.2 Estimated GFR 4 Random Glucose 67 Lactic Acid Calcium 8.2 L D Magnesium Total Bilirubin Direct Bilirubin AST ALT Alkaline Phosphatase Ammonia Troponin I High Sens Total Protein Albumin COVID-19 ([facility]) COVID-19 Clin Com Imaging Radiology Impressions: ITS Impressions Chest X-Ray 03/08/20 13:16 IMPRESSION: No acute process. Borderline cardiomegaly. No major change from 12/29/[address] 03/08/20 13:38 IMPRESSION: No acute intracranial pathology. Mental Status Exam Mental Status Exam Patient Appearance: Fatigued Patient Orientation: Person, Place and Situation Level of Consciousness: Drowsy and Lethargic Patient Behavior: Guarded and Fatigued Mood Description: Flat Affect Description: Flat and Apprehensive Speech Pattern: Difficulty Finding Words and Delayed Thought Process: Intact and Slowed Thinking Thought Content: positive for Intact Medications Medications Current Medications Generic Name Dose Route Start Last Admin Trade Name Freq PRN Reason Stop Dose Admin Allopurinol 100 mg 03/09/20 09:00 03/09/20 08:52 Allopurinol 100 Mg Tablet PO 100 mg DAILY [facility] Administration Amlodipine Besylate 10 mg 03/09/20 09:00 03/09/20 08:51 Amlodipine Besylate 10 Mg Tablet PO 10 mg DAILY [facility] Administration Protocol Aspirin 81 mg 03/09/20 09:00 03/09/20 08:52 Aspirin Enteric Coated 81 Mg Tablet. PO 81 mg DAILY [facility] Administration Atorvastatin Calcium 40 mg 03/08/20 21:00 03/08/20 21:28 Atorvastatin Calcium 40 Mg Tablet PO Not Given BEDTIME [facility] Docusate Sodium 100 mg 03/08/20 21:00 03/09/20 08:51 Docusate Sodium 100 Mg Capsule PO 100 mg BID [facility] Administration Famotidine 20 mg 03/08/20 21:00 03/09/20 08:51 Famotidine 20 Mg Tablet PO 20 mg BID [facility] Administration Folic Acid 1 mg 03/09/20 09:00 03/09/20 08:51 Folic Acid 1 Mg Tablet PO 1 mg DAILY [facility] Administration Ceftriaxone Sodium 1 gm/ 50 mls @ 100 mls/hr 03/09/20 15:00 Sodium Chloride IV Q24H [facility] Levothyroxine Sodium 25 mcg 03/09/20 06:30 03/09/20 06:17 Levothyroxine Sodium 25 Mcg Tablet PO Not Given DAILY@0630 [facility] Pharmacy Consult 1 each 03/08/20 13:13 Consult Rx Perform Med Rec MISCELLANE ONCE PRN Consult order Sevelamer HCl 1,600 mg 03/09/20 07:30 03/09/20 15:00 Sevelamer Hcl 800 Mg Tablet PO Not Given TIDAC [facility] Sodium Chloride 3 ml 03/09/20 00:00 03/09/20 08:52 0.9 % Sodium Chloride Flush 3 Ml Syringe IVFLUSH 3 ml QSHIFT [facility] Administration Sucralfate 1 gm 03/08/20 16:43 Sucralfate 1 Gm Tablet PO Q6H PRN pain Tacrolimus 1 mg 03/08/20 21:00 03/09/20 08:51 Tacrolimus 1 Mg Capsule PO 1 mg BID [facility] Administration Trazodone HCl 25 mg 03/09/20 21:00 Trazodone Hcl 25 Mg Halftab PO BEDTIME [facility] Venlafaxine HCl 37.5 mg 03/09/20 09:00 03/09/20 08:51 Venlafaxine Hcl Er 37.5 Mg Cap.Er.24h PO 37.5 mg DAILY [facility] Administration Allergies Allergies Allergy/AdvReac Type Severity Reaction Status Date / Time Sulfa (Sulfonamide Allergy Mild HIVES Verified 03/08/20 22:49 Antibiotics) Heparin Analogues Allergy Unknown UNKNOWN Verified 03/08/20 22:50 [Heparin Agents] verapamil Allergy Unknown unknown Verified 03/08/20 22:50 Assessment & Plan Assessment & Plan (1) Metabolic encephalopathy: Status: Acute Code(s): G93.41 - Metabolic encephalopathy Recommendations: unclear etiology 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
[2020-03-09] MEDS: Metoprolol Tartrate 5 MG/5 ML VIAL IVPUSH (23:32)
[2020-03-10] VITALS (8 sets, daily range): BP systolic 164–191; BP diastolic 77–91; PULSE 71–81; RESP 18–20; TEMP 36.4–37.1; O2SAT 97–99
[2020-03-10] MEDS: Levothyroxine Sodium 25 MCG TABLET PO (06:27)
[2020-03-10 06:33] LABS: Hematocrit 37.2 % (37-47); MANUAL DIFF FLAG SCAN; PLT CLUMP 1; Red Cell Distribution Width 17.3 % (11.0-16.0); SCAN SMEAR FLAG 1
[2020-03-10 06:36] LABS: Basophils Absolute Auto 0.1 X10*3/uL (0.0-0.2); Basophils Percent Auto 0.6 % (0-2); Eosinophils Absolute Auto 0.1 X10*3/uL (0.0-0.4); Eosinophils Percent Auto 0.9 % (0-4); Imm Gran Abs Auto 0.03 X10*3/uL (0.00-0.03); Imm Gran Pct Auto 0.4 % (0.0-0.4); Lymphocytes Absolute Auto 1.1 X10*3/uL (1.2-4.9); Lymphocytes Percent Auto 14.2 % (20-40); Mean Corpuscular HGB Conc 32.3 g/dl (31.0-35.0); Mean Corpuscular Hemoglobin 27.6 pg (27.0-33.0); Mean Corpuscular Volume 85.7 fL (80-98); Mean Platelet Volume 10.1 fL (9.4-12.3); Monocytes Absolute Auto 0.8 X10*3/uL (0.1-1.2); Monocytes Percent Auto 10.1 % (2-11); Neutrophils Absolute Auto 5.8 X10*3/uL (2.0-8.3); Neutrophils Percent Auto 73.8 % (45-73); Platelet Count 128 X10*3/uL (160-400); Red Blood Count 4.34 X10*6/uL (4.20-5.50); White Blood Count 7.9 X10*3/uL (4.8-10.8)
--- NOTE | 2020-03-10 07:27 | PC.NURSE ---
7P-7A SHIFT; PATIENT IN DIALYSIS BEGINNING OF SHIFT, PATIENT COMPLETED DIALYSIS AND BACK TO ROOM AT 2130. PATIENT ALERT TO SELF, UPON COMPLETION OF DIALYSIS PATIENT'S HEART RATE ELEVATED TO 100-TEENS TO 130s, AND PER TELE MONITORING PATIENT IS IN AFIB, BP 163/103. MD NOTIFIED, ORDER FOR IV LOPRESSOR 5 MG. NO EKG AT THIS TIME PER MD. IMC RN TO ADMINISTER IV LOPRESSOR, PATIENT REFUSING. MD NOTIFIED AND MD AT PATIENT'S BEDSIDE EDUCATING PATIENT ON IMPORTANCE OF TAKING MEDICATION. PATIENT AGREED. BP TAKEN 194/97, HR 128. ALSO, PATIENT REFUSED ALL PO BEDTIME MEDICATIONS AND IV ROCEPHIN ANTIBIOTIC. MD MADE AWARE.
--- NOTE | 2020-03-10 07:35 | PC.NURSE ---
0600; 1 OF 2 BLOOD CULTURES, GRAM STAIN RESULTS: GRAM POSITIVE COCCI IN CLUSTERS. MD NOTIFIED.
[2020-03-10 07:39] LABS: Anion Gap 21 (12-20); Blood Urea Nitrogen 28 mg/dL (9-16); Calcium 9.2 mg/dL (8.4-10.2); Carbon Dioxide 20 mmol/L (22-29); Chloride 100 mmol/L (96-108); Creatinine Clr Calc Pharmacy 10.6; Estimated Glomerular Filt Rate 8; Glucose Fasting 83 mg/dL (60-99); Potassium 4.6 mmol/l (3.3-5.1); Sodium 136 mmol/L (135-145)
[2020-03-10 07:59] LABS: SLIDE REVIEW VERIFIED
--- NOTE | 2020-03-10 10:09 | HO.PM.IMPN ---
Subjective Subjective Date of Service: 03/10/20 Interval History: tired, weak Cardiovascular Cardiovascular: Reports no additional cardiovascular complaints Respiratory Respiratory: Reports no additional respiratory complaints Physical Exam Vital Signs: Vital Signs: Last Vital Signs Temp 98.7 F 03/10/20 08:00 Pulse 75 03/10/20 08:00 Resp 20 03/10/20 08:00 BP 186/82 H 03/10/20 08:00 Pulse Ox 98 03/10/20 08:00 Body Mass Index 23.1 General: much more alert, but still sluggish Resp: CTA bilateral CVS: S1,S2,RRR GI: soft, non tender, non distended Neuro: diffuse weakness Psych: slow, flat affect Objective Data Current Medications Generic Name Dose Route Start Last Admin Trade Name Freq PRN Reason Stop Dose Admin Allopurinol 100 mg 03/09/20 09:00 03/09/20 08:52 Allopurinol 100 Mg Tablet PO 100 mg DAILY [facility] Administration Amlodipine Besylate 10 mg 03/09/20 09:00 03/09/20 08:51 Amlodipine Besylate 10 Mg Tablet PO 10 mg DAILY [facility] Administration Protocol Aspirin 81 mg 03/09/20 09:00 03/09/20 08:52 Aspirin Enteric Coated 81 Mg Tablet.Dr PO 81 mg DAILY [facility] Administration Atorvastatin Calcium 40 mg 03/08/20 21:00 03/09/20 22:54 Atorvastatin Calcium 40 Mg Tablet PO Not Given BEDTIME [facility] Docusate Sodium 100 mg 03/08/20 21:00 03/09/20 22:54 Docusate Sodium 100 Mg Capsule PO Not Given BID [facility] Famotidine 20 mg 03/08/20 21:00 03/09/20 22:54 Famotidine 20 Mg Tablet PO Not Given BID [facility] Folic Acid 1 mg 03/09/20 09:00 03/09/20 08:51 Folic Acid 1 Mg Tablet PO 1 mg DAILY [facility] Administration Ceftriaxone Sodium 1 gm/ 50 mls @ 100 mls/hr 03/09/20 22:00 03/09/20 22:59 Sodium Chloride IV Not Given Q24H [facility] Levothyroxine Sodium 25 mcg 03/09/20 06:30 03/10/20 06:27 Levothyroxine Sodium 25 Mcg Tablet PO 25 mcg DAILY@0630 [facility] Administration Lidocaine HCl 1 appl 03/09/20 15:53 Lidocaine 4 % Cream Kit TOPICAL ONCE PRN hd access Protocol Pharmacy Consult 1 each 03/08/20 13:13 Consult Rx Perform Med Rec MISCELLANE ONCE PRN Consult order Sevelamer HCl 1,600 mg 03/09/20 07:30 03/09/20 18:43 Sevelamer Hcl 800 Mg Tablet PO Not Given TIDAC [facility] Sodium Chloride 3 ml 03/09/20 00:00 03/10/20 00:55 0.9 % Sodium Chloride Flush 3 Ml Syringe IVFLUSH Not Given QSHIFT [facility] Sucralfate 1 gm 03/08/20 16:43 Sucralfate 1 Gm Tablet PO Q6H PRN pain Tacrolimus 1 mg 03/08/20 21:00 03/09/20 22:54 Tacrolimus 1 Mg Capsule PO Not Given BID [facility] Trazodone HCl 25 mg 03/09/20 21:00 03/09/20 22:55 Trazodone Hcl 25 Mg Halftab PO Not Given BEDTIME [facility] Venlafaxine HCl 37.5 mg 03/09/20 09:00 03/09/20 08:51 Venlafaxine Hcl Er 37.5 Mg Cap.Er.24h PO 37.5 mg DAILY [facility] Administration Labs CBC & Chem 7: 03/10/20 05:52 03/10/20 05:52 Microbiology Microbiology Results: Microbiology 03/08/20 13:37 Blood - Venous Blood Culture - Preliminary 03/08/20 14:40 Blood - Venous Blood Culture - Preliminary No growth after 24 hours. Assessment and Plan (1) Metabolic encephalopathy: Status: Acute (2) Cirrhosis: Problem details: s/p transplant, liver functioning, on TACROLIMUS Continue immunosuppressive therapy. Status: Acute (3) End-stage renal disease (ESRD): Problem details: missed HD on friday, patient will have HD today Status: Acute Assessment and Plan: 69F presented with weaknes, ams metabolic encephalopathy likely multifactorial differential includes: Uremic encephalopathy from missing hemodialysis, malnutrition, UTI, pseudodementia from depression, toxic from oxycodone s/p HD yesterday and significantly more awake today continue empiric ceftriaxone, cultures negative continue to hold ropinorole, oxycodone plan for PT eval, possible str history of liver cirrhosis status post transplant continue tacrolimus cad asa, crestor
[2020-03-10] MEDS: Folic Acid 1 MG TABLET PO (10:10)
[2020-03-10] MEDS: allopurinoL 100 MG TABLET PO (10:10)
[2020-03-10] MEDS: Famotidine 20 MG TABLET PO ×2 (10:10→21:20)
[2020-03-10] MEDS: Aspirin Enteric Coated 81 MG TABLET.DR PO (10:10)
[2020-03-10] MEDS: amLODIPine Besylate 10 MG TABLET PO (10:10)
[2020-03-10] MEDS: Venlafaxine HCl ER 37.5 MG CAP.ER.24H PO (10:11)
[2020-03-10] MEDS: 0.9 % Sodium Chloride Flush 3 ML SYRINGE IVFLUSH ×3 (10:11→21:21)
[2020-03-10] MEDS: Tacrolimus 1 MG CAPSULE PO ×2 (10:11→21:20)
--- NOTE | 2020-03-10 11:06 | MHC.CM.PN ---
pt does not want to go to STR, she would not even give me ref. choices. pt is sched. to have PT eval today. if the recomendation is for STR then pt may be willing to go to str, in which case we will revisit and make refs. if pt goes home then [facility] c nsg and home pt can follow, pt was open to this and requested a ref. to [facility] which has been done. cm to cont. to follow.
--- NOTE | 2020-03-10 13:18 | MHC.CM.PN ---
pt has reconsidered her position on going to STR, now she is requesting refs be put in for str's in [facility] being her first choice. these refs have been made. cm to cont. to follow.
[2020-03-10] MEDS: cefTRIAXone sodium 1 GM in 0.9 % Sodium Chloride 50 ML IV (21:20)
[2020-03-10] MEDS: Atorvastatin Calcium 40 MG TABLET PO (21:20)
[2020-03-10] MEDS: Docusate Sodium 100 MG CAPSULE PO (21:20)
[2020-03-10] MEDS: traZODone HCL 25 MG HALFTAB PO (21:20)
[2020-03-11 04:00] VITALS: BP 160/73; PULSE 72; RESP 18; TEMP 37.1; O2SAT 98
[2020-03-11] MEDS: Levothyroxine Sodium 25 MCG TABLET PO (06:10)
--- NOTE | 2020-03-11 10:22 | P.PNIM_ITS ---
Subjective Subjective Date of Service: 03/11/20 Interval History: weak, otherwise much better Cardiovascular Cardiovascular: Reports no additional cardiovascular complaints Respiratory Respiratory: Reports no additional respiratory complaints Physical Exam Vital Signs: Vital Signs: Last Vital Signs Temp 98.8 F 03/11/20 04:00 Pulse 72 03/11/20 04:00 Resp 18 03/11/20 04:00 BP 160/73 H 03/11/20 04:00 Pulse Ox 98 03/11/20 04:00 Body Mass Index 23.1 General: AO X 3, no acute distress Resp: CTA bilateral CVS: S1,S2,RRR GI: soft, non tender, non distended Neuro: motor grossly intact Psych: appropriate affect Objective Data Current Medications Generic Name Dose Route Start Last Admin Trade Name Freq PRN Reason Stop Dose Admin Allopurinol 100 mg 03/09/20 09:00 03/11/20 08:24 Allopurinol 100 Mg Tablet PO Not Given DAILY [facility] Amlodipine Besylate 10 mg 03/09/20 09:00 03/11/20 08:24 Amlodipine Besylate 10 Mg Tablet PO Not Given DAILY [facility] Protocol Aspirin 81 mg 03/09/20 09:00 03/11/20 08:27 Aspirin Enteric Coated 81 Mg Tablet.Dr PO Not Given DAILY [facility] Atorvastatin Calcium 40 mg 03/08/20 21:00 03/10/20 21:20 Atorvastatin Calcium 40 Mg Tablet PO 40 mg BEDTIME [facility] Administration Docusate Sodium 100 mg 03/08/20 21:00 03/11/20 08:27 Docusate Sodium 100 Mg Capsule PO Not Given BID [facility] Famotidine 20 mg 03/08/20 21:00 03/11/20 08:27 Famotidine 20 Mg Tablet PO Not Given BID [facility] Folic Acid 1 mg 03/09/20 09:00 03/11/20 08:27 Folic Acid 1 Mg Tablet PO Not Given DAILY [facility] Ceftriaxone Sodium 1 gm/ 50 mls @ 100 mls/hr 03/09/20 22:00 03/10/20 22:00 Sodium Chloride IV Infused Q24H [facility] Infusion Levothyroxine Sodium 25 mcg 03/09/20 06:30 03/11/20 06:10 Levothyroxine Sodium 25 Mcg Tablet PO 25 mcg DAILY@0630 [facility] Administration Lidocaine HCl 1 appl 03/09/20 15:53 Lidocaine 4 % Cream Kit TOPICAL ONCE PRN hd access Protocol Lidocaine HCl 0.5 ml 03/11/20 07:45 03/11/20 08:23 Lidocaine Hcl 1 % Mpf 2 Ml Ampul SUBCUT Not Given [id number] [facility] Pharmacy Consult 1 each 03/08/20 13:13 Consult Rx Perform Med Rec MISCELLANE ONCE PRN Consult order Sevelamer HCl 1,600 mg 03/09/20 07:30 03/11/20 08:23 Sevelamer Hcl 800 Mg Tablet PO Not Given TIDAC [facility] Sodium Chloride 3 ml 03/09/20 00:00 03/11/20 08:23 0.9 % Sodium Chloride Flush 3 Ml Syringe IVFLUSH Not Given QSHIFT [facility] Sucralfate 1 gm 03/08/20 16:43 Sucralfate 1 Gm Tablet PO Q6H PRN pain Tacrolimus 1 mg 03/08/20 21:00 03/11/20 08:27 Tacrolimus 1 Mg Capsule PO Not Given BID [facility] Trazodone HCl 25 mg 03/09/20 21:00 03/10/20 21:20 Trazodone Hcl 25 Mg Halftab PO 25 mg BEDTIME [facility] Administration Venlafaxine HCl 37.5 mg 03/09/20 09:00 03/11/20 08:28 Venlafaxine Hcl Er 37.5 Mg Cap.Er.24h PO Not Given DAILY [facility] Labs CBC & Chem 7: 03/10/20 05:52 03/10/20 05:52 Microbiology Microbiology Results: Microbiology 03/08/20 14:40 Blood - Venous Blood Culture - Preliminary No growth after 48 hours. 03/08/20 13:37 Blood - Venous Blood Culture - Preliminary Assessment and Plan (1) Metabolic encephalopathy: Status: Acute (2) Cirrhosis: Problem details: s/p transplant, liver functioning, on TACROLIMUS Continue immunosuppressive therapy. Status: Acute (3) End-stage renal disease (ESRD): Problem details: missed HD on friday, patient will have HD today Status: Acute Assessment and Plan: 69F presented with weaknes, ams metabolic encephalopathy likely multifactorial differential includes: Uremic encephalopathy from missing hemodialysis, malnutrition, UTI, pseudodementia from depression, toxic from oxycodone s/p HD times 2 and significantly more awake continue empiric ceftriaxone, cultures negative continue to hold ropinorole, oxycodone plan for possible str when available history of liver cirrhosis status post transplant continue tacrolimus cad asa, crestor
[2020-03-11 11:56] VITALS: BP 141/91; PULSE 101; RESP 18; TEMP 36.9; O2SAT 97
[2020-03-11] MEDS: amLODIPine Besylate 10 MG TABLET PO (15:11)
[2020-03-11] MEDS: 0.9 % Sodium Chloride Flush 3 ML SYRINGE IVFLUSH ×2 (15:12→21:22)
[2020-03-11] MEDS: Aspirin Enteric Coated 81 MG TABLET.DR PO (15:12)
[2020-03-11 16:00] VITALS: BP 180/84; PULSE 80; RESP 16; O2SAT 95
[2020-03-11 20:00] VITALS: BP 140/71; PULSE 81; RESP 16; TEMP 37.3; O2SAT 96
[2020-03-11] MEDS: Docusate Sodium 100 MG CAPSULE PO (21:22)
[2020-03-11] MEDS: traZODone HCL 25 MG HALFTAB PO (21:22)
[2020-03-11] MEDS: Tacrolimus 1 MG CAPSULE PO (21:22)
[2020-03-11] MEDS: cefTRIAXone sodium 1 GM in 0.9 % Sodium Chloride 50 ML IV (21:22)
[2020-03-11] MEDS: Famotidine 20 MG TABLET PO (21:22)
[2020-03-11] MEDS: Atorvastatin Calcium 40 MG TABLET PO (21:22)
[2020-03-11 23:48] VITALS: BP 141/74; PULSE 76; RESP 18; TEMP 37; O2SAT 98
--- NOTE | 2020-03-12 | XR_ITS ---
EXAMINATION: LEFT HAND/WRIST.. CLINICAL INFORMATION: Pain. COMPARISON: None TECHNIQUE: 3 views. FINDINGS: There is diffuse osteopenia with no visible fracture, dislocation or subluxation. There is loss of first carpometacarpal joint, PIP and DIP joint space. There is periarticular spurring along the PIP joint fifth digit with mild soft tissue swelling. The MCP joints are preserved. Soft tissues are unremarkable. XR/XR hand wrist LT IMPRESSION: Mild osteopenia. No acute fracture or dislocation seen. Degenerative osteoarthritic changes first carpometacarpal, PIP and DIP joints. There is periarticular spurring and soft tissue swelling fifth digit.
[2020-03-12 03:23] VITALS: BP 148/67; PULSE 76; RESP 18; TEMP 36.9; O2SAT 97
[2020-03-12] MEDS: Levothyroxine Sodium 25 MCG TABLET PO (06:04)
[2020-03-12 08:00] VITALS: BP 142/84; PULSE 85; RESP 18; TEMP 36.5; O2SAT 97
[2020-03-12] MEDS: Docusate Sodium 100 MG CAPSULE PO (08:52)
[2020-03-12] MEDS: Aspirin Enteric Coated 81 MG TABLET.DR PO (08:52)
[2020-03-12 08:53] VITALS: BP 148/67; PULSE 76
[2020-03-12] MEDS: Venlafaxine HCl ER 37.5 MG CAP.ER.24H PO (08:53)
[2020-03-12] MEDS: Folic Acid 1 MG TABLET PO (08:53)
[2020-03-12] MEDS: Famotidine 20 MG TABLET PO ×2 (08:53→20:46)
[2020-03-12] MEDS: Tacrolimus 1 MG CAPSULE PO ×2 (08:53→20:46)
[2020-03-12] MEDS: amLODIPine Besylate 10 MG TABLET PO (08:53)
[2020-03-12] MEDS: allopurinoL 100 MG TABLET PO (08:53)
[2020-03-12] MEDS: 0.9 % Sodium Chloride Flush 3 ML SYRINGE IVFLUSH ×3 (08:56→23:27)
--- NOTE | 2020-03-12 10:21 | HO.PM.IMPN ---
Subjective Subjective Date of Service: 03/12/20 Interval History: feeling ebtter Cardiovascular Cardiovascular: Reports no additional cardiovascular complaints Gastrointestinal Gastrointestinal: Reports no additional gastrointestinal complaints Physical Exam Vital Signs: Vital Signs: Last Vital Signs Temp 97.7 F 03/12/20 08:00 Pulse 76 03/12/20 08:53 Resp 18 03/12/20 08:00 BP 148/67 H 03/12/20 08:53 Pulse Ox 97 03/12/20 08:00 Body Mass Index 23.1 General: AO X 3, no acute distress Resp: CTA bilateral CVS: S1,S2,RRR GI: soft, non tender, non distended Neuro: motor grossly intact Psych: appropriate affect Objective Data Current Medications Generic Name Dose Route Start Last Admin Trade Name Freq PRN Reason Stop Dose Admin Allopurinol 100 mg 03/09/20 09:00 03/12/20 08:53 Allopurinol 100 Mg Tablet PO 100 mg DAILY [facility] Administration Amlodipine Besylate 10 mg 03/09/20 09:00 03/12/20 08:53 Amlodipine Besylate 10 Mg Tablet PO 10 mg DAILY [facility] Administration Protocol Aspirin 81 mg 03/09/20 09:00 03/12/20 08:52 Aspirin Enteric Coated 81 Mg Tablet.Dr PO 81 mg DAILY [facility] Administration Atorvastatin Calcium 40 mg 03/08/20 21:00 03/11/20 21:22 Atorvastatin Calcium 40 Mg Tablet PO 40 mg BEDTIME [facility] Administration Docusate Sodium 100 mg 03/08/20 21:00 03/12/20 08:52 Docusate Sodium 100 Mg Capsule PO 100 mg BID [facility] Administration Famotidine 20 mg 03/08/20 21:00 03/12/20 08:53 Famotidine 20 Mg Tablet PO 20 mg BID [facility] Administration Folic Acid 1 mg 03/09/20 09:00 03/12/20 08:53 Folic Acid 1 Mg Tablet PO 1 mg DAILY [facility] Administration Ceftriaxone Sodium 1 gm/ 50 mls @ 100 mls/hr 03/09/20 22:00 03/11/20 21:59 Sodium Chloride IV Infused Q24H [facility] Infusion Levothyroxine Sodium 25 mcg 03/09/20 06:30 03/12/20 06:04 Levothyroxine Sodium 25 Mcg Tablet PO 25 mcg DAILY@0630 [facility] Administration Lidocaine HCl 1 appl 03/09/20 15:53 Lidocaine 4 % Cream Kit TOPICAL ONCE PRN hd access Protocol Lidocaine HCl 0.5 ml 03/11/20 07:45 03/11/20 15:13 Lidocaine Hcl 1 % Mpf 2 Ml Ampul SUBCUT Not Given [id number] [facility] Pharmacy Consult 1 each 03/08/20 13:13 Consult Rx Perform Med Rec MISCELLANE ONCE PRN Consult order Sevelamer HCl 1,600 mg 03/09/20 07:30 03/12/20 08:52 Sevelamer Hcl 800 Mg Tablet PO 1,600 mg TIDAC [facility] Administration Sodium Chloride 3 ml 03/09/20 00:00 03/12/20 08:56 0.9 % Sodium Chloride Flush 3 Ml Syringe IVFLUSH 3 ml QSHIFT [facility] Administration Sucralfate 1 gm 03/08/20 16:43 Sucralfate 1 Gm Tablet PO Q6H PRN pain Tacrolimus 1 mg 03/08/20 21:00 03/12/20 08:53 Tacrolimus 1 Mg Capsule PO 1 mg BID [facility] Administration Trazodone HCl 25 mg 03/09/20 21:00 03/11/20 21:22 Trazodone Hcl 25 Mg Halftab PO 25 mg BEDTIME [facility] Administration Venlafaxine HCl 37.5 mg 03/09/20 09:00 03/12/20 08:53 Venlafaxine Hcl Er 37.5 Mg Cap.Er.24h PO 37.5 mg DAILY [facility] Administration Labs CBC & Chem 7: 03/10/20 05:52 03/10/20 05:52 Microbiology Microbiology Results: Microbiology 03/08/20 13:37 Blood - Venous Blood Culture - Final Coagulase-neg Staphyloccocus 03/08/20 14:40 Blood - Venous Blood Culture - Preliminary No growth after 48 hours. Assessment and Plan (1) Metabolic encephalopathy: Status: Acute (2) Cirrhosis: Problem details: s/p transplant, liver functioning, on TACROLIMUS Continue immunosuppressive therapy. Status: Acute (3) End-stage renal disease (ESRD): Problem details: missed HD on friday, patient will have HD today Status: Acute Assessment and Plan: 69F presented with weaknes, ams metabolic encephalopathy likely multifactorial differential includes: Uremic encephalopathy from missing hemodialysis, malnutrition, UTI, pseudodementia from depression, toxic from oxycodone s/p HD times 2 and significantly more awake continue empiric ceftriaxone, cultures negative continue to hold ropinorole, oxycodone stable for dc plan for possible str when available, as unsafe at home at this time history of liver cirrhosis status post transplant continue tacrolimus cad asa, crestor
[2020-03-12 11:26] VITALS: BP 136/72; PULSE 76; RESP 16; TEMP 36.4; O2SAT 97
--- NOTE | 2020-03-12 13:03 | MHC.CM.PN ---
CM informed pt could DC to STR today if a bed were secured. CM followed up on previously made referrals. One facility was offering a bed however did not have one available today. CM contacted pts sister/HCP Jena Flowers ([phone]) and informed her that the pt had refused referrals to several of the area SNFs and the search area would have to be widened. Jena reported the pt had been to several of the area rehabs and was not allowed to return to some of them. CM informed Jena that the pt initially said she would only go to [facility]. She reports the pt was at [facility] for STR and had someone pick her up so she could go to her house and get more belongings and they decided she could not return to that facility. Jena believes the pt is refusing [facility] because she worked there years ago and may be worried about seeing someone she knows, Jena will call and explain that the facility changed hands and likely has new staff. CM will make more referrals including [facility], based on discussion with HCP. Pt does require HD three times per week which also may be a barrier to placement. [facility], a facility that has dialysis on site, is following and may have a bed Friday. A referral was also made to [facility] based on their on site HD.
--- NOTE | 2020-03-12 15:18 | MHC.CM.PN ---
CM RECEIVED A CALL FROM PTS SISTER WHO ASKED FOR UPDATES ON PTS REFERRALS. RAYRAY EXPLAINED ONLY [facility] AND [facility] WERE OFFERING BUT NO ONE HAD A BED AVAILABLE BEFORE FRIDAY, SHE REPORTS THE PT HAS BEEN TO [facility] IN THE PAST AND HAD DIFFICULTY THERE. RAYRAY WILL FOLLOW UP ON REFERRAL FRIDAY MORNING AND CONTACT GABRIEL TO DISCUSS BED AVAILABILITY.
[2020-03-12 15:48] VITALS: BP 131/72; PULSE 82; RESP 18; TEMP 36.4; O2SAT 98
--- NOTE | 2020-03-12 18:15 | PC.NURSE ---
PATIENT COMPLAINED OF LEFT WRIST PAIN. PATIENT ASKED THIS RN TO SEE IF IT IS BROKEN OR SPRAINED. NOTIFIED DOCTOR JONO. NEW ORDER FOR A X-RAY OF THE WRIST. X-RAY SHOWS NO FRACTURES OR DISLOCATIONS.
[2020-03-12 20:00] VITALS: BP 143/67; PULSE 80; RESP 16; TEMP 37; O2SAT 97
[2020-03-12] MEDS: Atorvastatin Calcium 40 MG TABLET PO (20:46)
[2020-03-12] MEDS: cefTRIAXone sodium 1 GM in 0.9 % Sodium Chloride 50 ML IV (20:47)
[2020-03-13] VITALS: BP 144/79; PULSE 83; RESP 16; TEMP 37; O2SAT 98
[2020-03-13] MEDS: Acetaminophen 325 MG TABLET 650 MG PO (03:47)
[2020-03-13 03:57] VITALS: BP 143/74; PULSE 82; RESP 16; TEMP 36.9
--- NOTE | 2020-03-13 06:00 | MHC.PIE ---
p; pt c/o h/a and pain to nel arms/hands 09/07. pt asking for tylenol i; dr macedo notified; new order tylenol 650 mg po now e; pt asleep in bed, no sign of pain noted in facial expressions, will con to monitor
[2020-03-13 08:00] VITALS: BP 160/84; PULSE 76; RESP 18; TEMP 36.4; O2SAT 97
[2020-03-13 08:04] VITALS: BP 160/84; PULSE 76
[2020-03-13] MEDS: amLODIPine Besylate 10 MG TABLET PO (08:04)
[2020-03-13] MEDS: allopurinoL 100 MG TABLET PO (08:04)
[2020-03-13] MEDS: Folic Acid 1 MG TABLET PO (08:04)
[2020-03-13] MEDS: Famotidine 20 MG TABLET PO (08:04)
[2020-03-13] MEDS: Venlafaxine HCl ER 37.5 MG CAP.ER.24H PO (08:06)
[2020-03-13] MEDS: Docusate Sodium 100 MG CAPSULE PO (08:06)
[2020-03-13] MEDS: Aspirin Enteric Coated 81 MG TABLET.DR PO (08:06)
[2020-03-13] MEDS: Tacrolimus 1 MG CAPSULE PO (08:09)
[2020-03-13] MEDS: 0.9 % Sodium Chloride Flush 3 ML SYRINGE IVFLUSH (08:15)
[2020-03-13 11:11] VITALS: BP 153/74; PULSE 70; RESP 18; TEMP 36.6; O2SAT 97
[2020-03-13 11:54] VITALS: BP 153/74; PULSE 70; O2SAT 97
--- NOTE | 2020-03-13 12:44 | PM.DS ---
DS: Providers Provider Date of admission: 03/08/20 16:55 Primary care physician: Unknown Physician Consults: 03/08/20 20:24 Consult to Nephrology Routine Consulting Provider: Marko Umanzor Reason for consultation: esrd, missed HD Consult to Psychiatry Routine Consulting Provider: Jennifer Pimentel Reason for consultation: depression, not eating DS: Diagnosis Discharge Diagnosis (1) Metabolic encephalopathy: Status: Acute (2) Cirrhosis: Status: Acute Problem details: s/p transplant, liver functioning, on TACROLIMUS Continue immunosuppressive therapy. (3) End-stage renal disease (ESRD): Status: Acute Problem details: missed HD on friday, patient will have HD today DS: Medications Discharge Medications Home Medications: Home Medications Medication Instructions Recorded Confirmed amlodipine 10 mg tablet 10 mg PO DAILY 01/26/20 03/08/20 aspirin 81 mg tablet,delayed 81 mg PO QAM 01/26/20 03/08/20 release famotidine 20 mg tablet 20 mg PO BID 01/26/20 03/08/20 folic acid 1 mg tablet 1 mg PO DAILY 01/26/20 03/08/20 levothyroxine 25 mcg tablet 25 mcg PO DAILY 01/26/20 03/08/20 rosuvastatin 10 mg tablet 10 mg PO BEDTIME 01/26/20 03/08/20 venlafaxine 37.5 mg 37.5 mg PO DAILY 01/26/20 03/08/20 capsule,extended release 24 hr allopurinol 100 mg PO DAILY 03/08/20 03/08/20 docusate sodium [DOK] 100 mg PO BID 03/08/20 03/08/20 fluorouracil 1 appl TOPICAL DAILY 03/08/20 03/08/20 sevelamer carbonate 1,600 mg PO TIDAC 03/08/20 03/08/20 sucralfate 1 g PO Q6H PRN 03/08/20 03/08/20 tacrolimus 1 mg PO BID 03/08/20 03/08/20 Previous Rx's Medication Instructions Recorded cefuroxime axetil 250 mg PO BID 7 Days #10 tab 03/13/20 DS: Summary Hospital Course Hospital Course: patient was admitted for with toxic metabolic encephalopathy. Likely multifactorial due to uremic encephalopathy from missed hemodialysis, possible UTI, oxycodone use. Patient underwent hemodialysis, or oxycodone was held as was her ropinirole. She was given ceftriaxone. Urine culture was negative. Patient's mental status returned to baseline. She was seen by Physical therapy who recommended continuing home PT. she will complete 5 more days of p.o. Ceftin.. Time Spent with Patient Time attestation: Total time spent providing and/or coordinating discharge services: Physical Exam Vital Signs: Vital Signs: Last Vital Signs Temp 97.8 F 03/13/20 11:11 Pulse 70 03/13/20 11:54 Resp 18 03/13/20 11:11 BP 153/74 H 03/13/20 11:54 Pulse Ox 97 03/13/20 11:54 Body Mass Index 23.1 General: AO X 3, no acute distress Resp: CTA bilateral CVS: S1,S2,RRR GI: soft, non tender, non distended Neuro: motor grossly intact Psych: appropriate affect DS: Data Data Completed and Pending Labs on day of discharge: 03/08/20 13:13 ECG 12 lead EKG Stat EKG Documentation DIRECTED 03/08/20 13:16 XR chest 1V Stat cefTRIAXone sodium [Rocephin] 1 gm 0.9 % Sodium Chloride [Ns] 50 ml IV ONCE 03/08/20 13:30 0.9 % Sodium Chloride [Ns] 1,000 ml IVCONT 999 mls/hr 03/08/20 13:38 CT head/brain wo con Stat Lactic Acid Stat 03/08/20 13:41 Complete Blood Count Auto Diff Stat Partial Thromboplastin Time Stat Prothrombin Time INR Stat Troponin-I High Sensitivity Stat 03/08/20 13:57 cefTRIAXone sodium [Rocephin] 1 gm .ROUTE .STK-MED ONE 03/08/20 14:40 Ammonia Stat 03/08/20 14:48 LORazepam [Ativan] 1 mg IVPUSH ONCE ONE 03/08/20 14:50 LORazepam [Ativan] 2 mg .ROUTE .STK-MED ONE 03/08/20 15:51 Basic Metabolic Panel Stat Liver Panel Stat Magnesium Stat 03/08/20 16:19 COVID-19 ID NOW ([place]) Stat 03/08/20 16:43 oxyCODONE HCl Immed Release [Roxicodone] 5 mg PO BID PRN 03/08/20 16:50 Transfer Order Routine 03/08/20 17:18 Troponin-I High Sensitivity Stat 03/08/20 Dinner Cardiac Diet 03/08/20 22:00 Heparin Sodium,Porcine 5,000 unit SUBCUT Q12H 03/08/20 23:32 hydrOXYzine HCL [Atarax] 25 mg PO ONCE ONE 03/09/20 05:53 Basic Metabolic Panel DAILY@0600 Complete Blood Count Auto Diff DAILY@0600 03/09/20 15:00 cefTRIAXone sodium [Rocephin] 1 gm 0.9 % Sodium Chloride [Ns] 50 ml IV Q24H 03/09/20 16:11 Lidocaine HCl 1 % MPF [Xylocaine 1 % MPF] 0.5 ml SUBCUT ONCE ONE 03/09/20 21:19 Metoprolol Tartrate [Lopressor] 5 mg IVPUSH ONCE ONE 03/10/20 05:52 BMP [Basic Metabolic Panel Fasting] Routine Complete Blood Count Auto Diff Routine SLIDE REVIEW Routine 03/10/20 21:12 cefTRIAXone sodium [Rocephin] 1 gm .ROUTE .STK-MED ONE 03/11/20 21:15 cefTRIAXone sodium [Rocephin] 1 gm .ROUTE .STK-MED ONE 03/12/20 XR hand wrist LT Routine 03/12/20 20:40 cefTRIAXone sodium [Rocephin] 1 gm .ROUTE .STK-MED ONE 03/13/20 03:39 Acetaminophen [Tylenol] 650 mg PO ONCE ONE Laboratory Last Values WBC 7.9 X10*3/uL (4.8-10.8) 03/10/20 05:52 RBC 4.34 X10*6/uL (4.20-5.50) 03/10/20 05:52 Hgb 12.0 g/dl (12.0-16.0) 03/10/20 05:52 Hct 37.2 % (37-47) 03/10/20 05:52 MCV 85.7 fL (80-98) 03/10/20 05:52 MCH 27.6 pg (27.0-33.0) 03/10/20 05:52 MCHC 32.3 g/dl (31.0-35.0) 03/10/20 05:52 RDW 17.3 % (11.0-16.0) H 03/10/20 05:52 Plt Count 128 X10*3/uL (160-400) L 03/10/20 05:52 MPV 10.1 fL (9.4-12.3) 03/10/20 05:52 Immature Gran % (Auto) 0.4 % (0.0-0.4) 03/10/20 05:52 Neut % (Auto) 73.8 % (45-73) H 03/10/20 05:52 Lymph % (Auto) 14.2 % (20-40) L 03/10/20 05:52 [place] % (Auto) 10.1 % (2-11) 03/10/20 05:52 Eos % (Auto) 0.9 % (0-4) 03/10/20 05:52 Baso % (Auto) 0.6 % (0-2) 03/10/20 05:52 Lymph # (Auto) 1.1 X10*3/uL (1.2-4.9) L 03/10/20 05:52 [place] # (Auto) 0.8 X10*3/uL (0.1-1.2) 03/10/20 05:52 Eos # (Auto) 0.1 X10*3/uL (0.0-0.4) 03/10/20 05:52 Baso # (Auto) 0.1 X10*3/uL (0.0-0.2) 03/10/20 05:52 Abs Immat Gran (auto) 0.03 X10*3/uL (0.00-0.03) 03/10/20 05:52 Absolute Neuts (auto) 5.8 X10*3/uL (2.0-8.3) 03/10/20 05:52 Absolute Nucleated RBC 0.000 X10*3/uL (0.0-0.012) 03/10/20 05:52 Nucleated RBC % (auto) 0.0 /100WBC (0.0-0.2) 03/10/20 05:52 Smear Tech's Comments VERIFIED 03/10/20 05:52 PT 12.2 SEC (10.8-13.0) 03/08/20 13:41 INR 1.0 (0.9-1.1) 03/08/20 13:41 APTT 32.5 SEC (24.1-38.0) 03/08/20 13:41 Sodium 136 mmol/L (135-145) 03/10/20 05:52 Potassium 4.6 mmol/l (3.3-5.1) 03/10/20 05:52 Chloride 100 mmol/L (96-108) 03/10/20 05:52 Carbon Dioxide 20 mmol/L (22-29) L 03/10/20 05:52 Anion Gap 21 (12-20) H 03/10/20 05:52 BUN 28 mg/dL (9-16) H D 03/10/20 05:52 Creatinine 5.08 mg/dL (0.5-1.4) H* 03/10/20 05:52 Estim Creat Clear Calc 10.6 03/10/20 05:52 Estimated GFR 8 03/10/20 05:52 Random Glucose 67 mg/dL (60-115) 03/09/20 05:53 Fasting Glucose 83 mg/dL (60-99) 03/10/20 05:52 Lactic Acid 0.9 mmol/L (0.5-2.0) 03/08/20 13:38 Calcium 9.2 mg/dL (8.4-10.2) D 03/10/20 05:52 Magnesium 2.2 mg/dL (1.6-2.6) 03/08/20 15:51 Total Bilirubin 0.4 mg/dL (0.0-1.0) 03/08/20 15:51 Direct Bilirubin 0.2 mg/dL (0.0-0.5) 03/08/20 15:51 AST 28 U/L (5-31) 03/08/20 15:51 ALT 15 U/L (0-31) 03/08/20 15:51 Alkaline Phosphatase 105 U/L (39-117) 03/08/20 15:51 Ammonia 41 umol/L (13-55) 03/08/20 14:40 Troponin I High Sens 97.2 ng/L (<3.5-17.0) H 03/08/20 17:18 Total Protein 6.1 g/dL (6.5-8.0) L 03/08/20 15:51 Albumin 3.4 g/dL (3.5-5.0) L 03/08/20 15:51 COVID-19 ([facility]) Negative (Negative) 03/08/20 16:19 COVID-19 Clin Com See Note 03/08/20 16:19 Preliminary micro results at discharge 03/08/20 14:40 Blood Culture - Preliminary Blood - Venous No growth after 48 hours. Discharge Plan Discharge Patient Disposition: Home Health Service Referrals: Physician,Unknown [Primary Care Provider] - Discharge Medications: Continued sucralfate 1 gram tablet 1 g PO Q6H PRN (Reason: pain) RF: 0 allopurinol 100 mg tablet 100 mg PO DAILY RF: 0 docusate sodium [DOK] 100 mg capsule 100 mg PO BID RF: 0 tacrolimus 1 mg capsule 1 mg PO BID RF: 0 sevelamer carbonate 800 mg tablet 1,600 mg PO TIDAC RF: 0 fluorouracil 5 % cream 1 appl topical DAILY RF: 0 cefuroxime axetil 250 mg tablet 250 mg PO BID 7 Days Qty: 10 RF: 0 amlodipine 10 mg tablet 10 mg PO DAILY RF: 0 rosuvastatin 10 mg tablet 10 mg PO BEDTIME RF: 0 venlafaxine 37.5 mg capsule,extended release 24hr 37.5 mg PO DAILY RF: 0 aspirin 81 mg tablet,delayed release (DR/EC) 81 mg PO QAM RF: 0 famotidine 20 mg tablet 20 mg PO BID RF: 0 folic acid 1 mg tablet 1 mg PO DAILY RF: 0 levothyroxine 25 mcg tablet 25 mcg PO DAILY RF: 0 Discontinued oxycodone 5 mg tablet 5 mg PO BID PRN (Reason: Pain) RF: 0 ropinirole 0.5 mg tablet 0.5 mg PO BEDTIME RF: 0 Discharge Orders: Discharge Order (Routine); Ordered 03/13/20 Ordered By: Erick Venegas Diet: advance to usual diet Activity on Discharge: As tolerated Visit Report Forms: Patient Portal Discharge page Care Plan Goals: recovery Health Concerns: ams Plan of Treatment: home pt, stop oxycodone and ropinorole, 5 more days ceftin
--- NOTE | 2020-03-13 12:49 | MHC.CM.PN ---
pt is being dcd today lory from [facility] [phone] notified of dc pt is going home with hvns as well for sn and pt
--- NOTE | 2020-03-13 12:51 | MHC.CM.PN ---
spoke with pts sister jhonatan who offered to provide transportaion home pt if we are unable to make transportaion arrangements
--- NOTE | 2020-03-13 13:08 | W.MHC.F2F ---
Service Date Service Date: 03/13/20 Reasons for Services Homebound: Leaving the home is medically contraindicated at this time without the asist of a device and/or another person due th the listed conditions above and below. Certification: Based on the above findings, I certify that this patient is confined to the home and needs intermittent longterm care, physical therapy and/or speech therapy, or continues to need occupational therapy. The patient is under my care, and I have initiated the establishment of the plan of care. The patient will be followed by a physician who will periodically review the plan of care.
--- NOTE | 2020-03-13 13:37 | MHC.CM.PN ---
CHAIR BRITTANY BOOKED FOR PT FOOR 2:30 TODAY TO TRANSPORT PT HOME PT REPOPRTS HAVING THE [facility]ER OF [employer] LEAVE HER DOOR UNCLOCKED [facility]IE NOTIFIED OF DC WELL [facility] SISTER GABRIEL IS AWARE OF DC TODAY ALSO
== END 2020-03-13 15:29 | disposition home health service (06) | DRG 682 ==
LOC: HO.ED 16:19 → HO.IMC 20:17
PROVIDERS: Physician Assistant; Admitting Provider Internal Medicine; Emergency Provider Emergency Medicine Emergency Medical Services; Visit Provider Internal Medicine
DX: I12.0 Hypertensive chronic kidney disease with stage 5 chronic kidney disease or end stage renal disease (principal); G93.41 Metabolic encephalopathy; N18.6 End stage renal disease; Z94.4 Liver transplant status; Z91.14 Patient's other noncompliance with medication regimen; E87.5 Hyperkalemia; Z99.2 Dependence on renal dialysis; Z91.15 Patient's noncompliance with renal dialysis; K70.30 Alcoholic cirrhosis of liver without ascites; Z20.828 Contact with and (suspected) exposure to other viral communicable diseases; Z88.2 Allergy status to sulfonamides; Z79.82 Long term (current) use of aspirin; Z79.890 Hormone replacement therapy; Z79.899 Other long term (current) drug therapy
CPT/HCPCS: 0241U; 36415; 70450; 71045; 73110; 73130; 80048; 80076; 81001; 82140; 83605; 83735; 84484; 85025; 85610; 85730; 87040; 87086; 87147; 87635; 90999; 93005; 96361; 96365; 96375; 97110; 97116; 97162; 99233; 99284; 99285; J0696; J2060

== ENCOUNTER 2020-03-30 10:05 | Outpatient (REF) | payer MEDICARE, MEDICAID, SELFPAY ==
--- NOTE | 2020-03-30 | MM_ITS ---
EXAMINATION: MM SCREENING DIGITAL BREAST TOMOSYNTHESIS, BILATERAL CLINICAL INFORMATION: Screening. Asymptomatic. The lifetime risk of breast cancer based on the Tyrer-Cuzick Model is 4%. COMPARISON: Mammography: 05/14/2017, 04/18/2016 TECHNIQUE: Digital breast tomosynthesis is performed in both the craniocaudal and mediolateral oblique views along with computer-aided detection (CAD). Synthesized 2D images are generated from the tomosynthesis. FINDINGS: There are scattered areas of fibroglandular density (ACR BI-RADS breast composition Category b). Parenchymal pattern borders on predominantly fatty. Background stromal densities are stable. There are extensive bilateral vascular and ductal secretory calcifications and some round calcifications again seen. No significant changes. MM/MM tomosynthesis screening BI IMPRESSION: No mammographic evidence of malignancy. ASSESSMENT: BI-RADS 2: Benign RECOMMENDATION: Routine annual mammography screening. This patient's information was entered into a reminder system with a target due date for their next mammogram.
--- NOTE | 2020-03-30 | MM_ITS ---
EXAMINATION: BONE DENSITOMETRY CLINICAL INDICATION: Screening for osteoporosis. COMPARISON: Previous BD dated 04/18/2016 and baseline BD dated 03/18/2014. CT abdomen and pelvis 12/29/2019. TECHNIQUE: Using a [employer] DXA System (software version: 13.1) manufactured by [employer], dual-energy x-ray absorptiometry was performed of the lumbar spine and left hip. The images are of good technical quality. Summary results are attached. FINDINGS: AP SPINE L2-L4 (L3) (excluding L1 and L3): The data of L1-L4 has been changed to exclude the L1 and L3 vertebral bodies, which show vertebral compressions on CT 12/29/2019. Current: BMD 1.166 g/cm2, Z-score 1.4, T-score -0.3, normal, 6.5% decrease from previous, 10.2% decrease from baseline (<5% change is not significant). Prior: BMD 1.247 g/cm2. Baseline: BMD 1.299 g/cm2. LEFT FEMUR, NECK: Current: BMD 0.681 g/cm2, Z-score -0.9, T-score -2.6, osteoporosis. Prior: BMD 0.897 g/cm2. Baseline: BMD 0.882 g/cm2. LEFT FEMUR, TOTAL: Current: BMD 0.679 g/cm2, Z-score -1.2, T-score -2.6, osteoporosis, 20.3% decrease from previous, 26.1% decrease from baseline (<5% change is not significant). Prior: BMD 0.852 g/cm2. Baseline: BMD 0.919 g/cm2. IDENTIFIED RISK FACTORS: Early menopause, secondary osteoporosis, recurrent falls, height loss, low calcium intake, renal, history of fracture (adult). HISTORY OF FRACTURE: Spine, wrist. MEDICATIONS: Calcitonin. MM/XR DEXA axial skeleton IMPRESSION: 1. DIAGNOSIS: Severe osteoporosis based on the lowest T-score value of -2.6 in the femur neck and total femur and history of vertebral compression fractures applying World Health Organization criteria. 2. 10-YEAR FRACTURE RISK PREDICTION, FRAX: Major osteoporotic fracture (clinical spine, forearm, hip or shoulder) 22.5%. Hip fracture 5.8%. 3. Treatment Recommendations: NOF guidelines recommend consideration for treatment in postmenopausal women and men age 50 and older presenting with the following: -A hip or vertebral (clinical or morphometric) fracture. -T-score less than or equal to -2.5 at the femoral neck or spine after appropriate evaluation to exclude secondary causes. -Low bone mass at the hip or spine and a 10-year fracture probability by FRAX of greater than or equal to 3% for hip fracture or greater than or equal to 20% for major osteoporotic fracture based on the [place] adapted WHO algorithm. 4. Other Recommendations: All treatment decisions require clinical judgment and consideration of individual patient factors, including patient preferences, comorbidities, previous drug use, risk factors not captured in the FRAX model (e.g. frailty, falls, vitamin D deficiency, increased bone turnover, interval significant decline in bone density) and possible under or overestimation of fracture risk by FRAX. Additional medical evaluation for secondary cause of low bone mineral density may be appropriate. FUTURE SCAN RECOMMENDATION: People with diagnosed cases of osteoporosis or at high risk for fracture should have regular bone mineral density tests. For patients eligible for Medicare, routine testing is allowed once every 2 years. The testing frequency can be increased to one year for patients who have rapidly progressing disease, those who are receiving or discontinuing medical therapy to restore bone mass, or have additional risk factors.i
== END 2020-03-30 10:06 | disposition home or self-care (01) ==
LOC: HO.MAMMO 10:05
PROVIDERS: Visit Provider Pediatrics
DX: Z12.31 Encounter for screening mammogram for malignant neoplasm of breast (principal); M81.0 Age-related osteoporosis without current pathological fracture
CPT/HCPCS: 77063; 77067; 77080

== ENCOUNTER 2020-05-12 10:51 | Outpatient (REF) | payer MEDICARE, MEDICAID, SELFPAY ==
--- NOTE | ~2020-05-12 | CT_ITS ---
EXAMINATION: CT CHEST WITH CONTRAST CLINICAL INFORMATION: Left vocal cord paralysis COMPARISON: Previous chest x-ray February 2020 TECHNIQUE: Multidetector volumetric CT imaging of the chest was obtained after the administration of 65 mL of Omnipaque 350 intravenous contrast without immediate adverse reactions. Axial MIP volume rendering provided. Sagittal and coronal reformatted images were obtained. This CT examination was performed using dose optimization techniques as appropriate, variously including the following: *Automated exposure control *Adjustment of mA and/or kV according to patient size (this includes techniques or standardized protocols for targeted exams where dose is matched to indication/reason for exam; i.e. extremities or head) *Use of iterative reconstruction technique DLP: 148 mGy-cm FINDINGS: LUNGS: There is an irregularly-shaped linear 3 x 6 mm calcified right upper lobe nodule axial image 69 series 7. This may represent a calcified broncholiths. There is a 2 mm calcified left lower lobe nodule axial image 78 series 7. The lungs are otherwise clear. MEDIASTINUM: The heart is enlarged. There is an aortic valve stent graft. There is no pericardial effusion. There is mild coronary artery calcification. There are no enlarged hilar or mediastinal lymph nodes. There is a 7 x 8 mm precarinal mediastinal lymph node and a small 4 mm AP window lymph node. PLEURA: There is a 1.5 x 2 cm partially calcified right thyroid nodule. There is a subcentimeter left thyroid nodule. AXILLA: No lymphadenopathy. UPPER ABDOMEN: There are postsurgical changes from liver transplant. There is a low-attenuation cystic areas seen in the itz hepatis. This is unchanged from previous CT scans. The kidneys are small. There are bilateral renal cysts. There are bilateral renal calcifications questionable for small stones versus vascular calcifications. OSSEOUS STRUCTURES: There are degenerative changes of the spine. There are old mild T11 and L1 vertebral body compression fractures. There is a stimulator in the lower thoracic spinal canal with tip at the superior endplate of the T8 vertebral body. CT/CT chest w con IMPRESSION: Small calcified pulmonary nodules. No suspicious nodule. No enlarged hilar or mediastinal lymph nodes. Aortic valve stent graft, enlarged heart and mild coronary artery calcification. 1.5 x 2 cm partially calcified right thyroid nodule. Follow-up thyroid ultrasound recommended due to size. Stable postsurgical changes following liver transplant. Small kidneys with bilateral low-attenuation renal lesions probably representing cysts. Bilateral renal vascular calcifications questionable for small renal stones versus vascular calcifications.
[2020-05-12] MEDS: iohexoL 350 MG/ML 100 ML INFUS..BTL 65 ML IV (12:34)
== END 2020-05-12 10:52 | disposition home or self-care (01) ==
LOC: HO.CT 10:51
PROVIDERS: Visit Provider Otolaryngology
DX: J38.01 Paralysis of vocal cords and larynx, unilateral (principal)
CPT/HCPCS: 71260; Q9967

== ENCOUNTER 2020-06-09 10:35 | Outpatient (REF) | payer MEDICARE, MEDICAID, SELFPAY ==
--- NOTE | ~2020-06-09 | US_ITS ---
EXAMINATION: US THYROID CLINICAL INFORMATION: Single thyroid nodule. COMPARISON: None TECHNIQUE: Linear transducer grayscale and color Doppler examination with attention to the region of the thyroid. FINDINGS: SIZE: Measurements of the thyroid lobes and nodules are given in sagittal, anteroposterior and transverse dimensions respectively. Right Thyroid Lobe: 4.5 x 1.5 x 1.9 cm, volume 6.7 mL. Parenchyma: The gland echotexture is heterogeneous. Thyroid vascularity is normal. Left Thyroid Lobe: 4.3 x 1.6 x 1.1 cm, volume 4.0 mL. Parenchyma: The gland echotexture is homogeneous. Thyroid vascularity is normal. Isthmus: 0.1 cm in maximum AP dimension. Estimated total number of nodules greater than or equal to 1 cm: 1. Product Safety Officer nodules are described as follows: 1. Location: Right midpole. Size: 2.1 x 1.6 x 1.7 cm, volume 3.0 mL. Nodule characteristics: Composition: Solid/almost completely solid (2). Echogenicity: Hyperechoic (1). Shape: Not taller than wide (0). Margins: Smooth (0). Echogenic Foci: None (0). ACR TI-RADS total points: 3 ACR TI-RADS category: 3 2. Location: Right medial inferior. Size: 0.6 x 0.4 x 0.5 cm, volume 0.06 mL. Nodule characteristics: Composition: Solid (2). Echogenicity: Isoechoic (1). Shape: Not taller than wide (0). Margins: Smooth (0). Echogenic Foci: Macrocalcifications (1). ACR TI-RADS total points: 4 ACR TI-RADS category: 4 NODES: Small lymph nodes seen in the right neck. US/US thyroid IMPRESSION: Solid lesion midpole right lobe. TI-RADS RECOMMENDATION: A follow-up in one year can be performed. ACR TI-RADS RECOMMENDATION REFERENCE: Ultrasound-guided fine-needle aspiration, followup ultrasound, no further follow up. * TR1 (0 point) and TR 2 (2 points): No FNA or follow up * TR3 (3 points): FNA if more than or equal to 2.5 cm in maximum dimension, followup ultrasound in 1, 3 and 5 years if 1.5 to 2.4 cm in maximum dimension. * TR4 (4-6 points): FNA if more than or equal to 1.5 cm in maximum dimension, followup ultrasound in 1, 2, 3 and 5 years if 1 to 1.4 cm in maximum dimension. * TR5 (more than or equal to 7 points): FNA if more than or equal to 1 cm in maximum dimension, followup ultrasound every year for 5 years if 0.5 to 0.9 cm in maximum dimension. * TR3, TR4 or TR5 nodules that are below the size threshold for follow up receive no follow up.
== END 2020-06-09 10:36 | disposition home or self-care (01) ==
LOC: HO.HMGCX 10:35
PROVIDERS: Visit Provider Pediatrics
DX: L04.1 Acute lymphadenitis of trunk (principal)
CPT/HCPCS: 76536

== ENCOUNTER → 2020-08-04 09:06 | Outpatient (BNVA) | payer MEDICARE, MEDICAID, SELFPAY | PROVIDERS: PCP Pediatrics; Referring Provider Pediatrics; Visit Provider Surgery | DX: K40.90 Unilateral inguinal hernia, without obstruction or gangrene, not specified as recurrent (principal) | CPT/HCPCS: 99212 ==

== ENCOUNTER 2020-08-14 09:37 | Inpatient (IN) | payer MEDICARE, MEDICAID, SELFPAY ==
[2020-08-07 11:07] VITALS: BMI 22.8
--- NOTE | 2020-08-08 | ECG_ITS ---
Test Reason : PREOP Blood Pressure : / mmHG Vent. Rate : 074 BPM Atrial Rate : 074 BPM P-R Int : 188 ms QRS Dur : 090 ms QT Int : 434 ms P-R-T Axes : 089 007 048 degrees QTc Int : 481 ms Normal sinus rhythm Septal infarct (cited on or before 03-SEP-2014) Abnormal ECG When compared with ECG of 08-MAR-2020 14:02, No significant change was found Referred By: Yuli Fowler Electronically Signed By:Ralf Daniel
--- NOTE | 2020-08-08 11:01 | P.CONAN_ITS ---
Documented by User: Yuli Fowler 08/11/20 10:58 HPI - Anesthesia Eval Consult details Narrative: 69yo F for Left Hernia Repair Inguinal AV fistula LUE s/p tvar 2017 s/p liver tx 2008 esrd on hd awaiting renal tx Case reviewed with Dr Ragland. OK to proceed without updated ECHO under MAC. lytes dos PMFSH Active Problems Active Problems: All Active Problems (Updated 08/07/20 @ 11:50 by oMnik Mahmood) Left inguinal hernia (Acute) Acute UTI (Acute) AMS (altered mental status) (Acute) S/P TAVR (transcatheter aortic valve replacement) (Acute) Metabolic encephalopathy (Acute) Hyperkalemia (Acute) Cirrhosis (Acute) End-stage renal disease (ESRD) (Acute) Past Medical History Medical History Anemia Anxiety and depression Arthritis Asthma AV fistula Bronchitis Cirrhosis COPD (chronic obstructive pulmonary disease) Coronary artery disease COVID-19 vaccine series completed DJD (degenerative joint disease) of thoracic spine End-stage renal disease (ESRD) GERD (gastroesophageal reflux disease) Gout Hemodialysis patient History of blood transfusion History of transcatheter aortic valve replacement (TAVR) Murmur Neuropathy Patient on waiting list for kidney transplant Family History Family history of problems with anesthesia: No Surgical History Surgical History History of liver transplant History of surgery on arm Hx of colonoscopy History of Problems with Anesthesia: No Social History Social History Household Members: None Housing: House Are you a primary health care analyst to a significant other at home: No Do you presently have visiting nurse or other home services: Yes ([facility]-help with light housekeeping,laundry) Alcohol intake: former Year quit: 2008 Smoking Status: Former smoker Smoking Quit Date: Use of substances other than those prescribed or required for medical reasons: No Have you been hit, kicked, punched, or otherwise hurt by someone within the past year? If so, by whom?: No Are you DNR?: No Advance Directives: No Advance Directives Information Provided: No Advance Directives on File: No Recently lost weight without trying: No service: No Current occupational status: retired Meds Allergies Allergy/AdvReac Type Severity Reaction Status Date / Time Sulfa (Sulfonamide Allergy Intermediate HIVES Verified 08/07/20 10:48 Antibiotics) Heparin Analogues Allergy Unknown UNKNOWN Verified 03/08/20 22:50 [Heparin Agents] verapamil Allergy Unknown unknown Verified 03/08/20 22:50 Home Medications Medication Instructions Recorded Confirmed Last Taken Type aspirin 81 mg tablet,delayed 81 mg PO QAM 01/26/20 08/07/20 Unknown History release famotidine 20 mg tablet 20 mg PO BID 01/26/20 08/07/20 Unknown History folic acid 1 mg tablet 1 mg PO DAILY 01/26/20 08/07/20 Unknown History levothyroxine 25 mcg tablet 25 mcg PO DAILY 01/26/20 08/07/20 Unknown History rosuvastatin 10 mg tablet 10 mg PO BEDTIME 01/26/20 08/07/20 Unknown History venlafaxine 37.5 mg 37.5 mg PO DAILY 01/26/20 08/07/20 Unknown History capsule,extended release 24 hr allopurinol 100 mg PO DAILY 03/08/20 08/07/20 Unknown History docusate sodium [DOK] 100 mg PO BID PRN 03/08/20 08/07/20 Unknown History sevelamer carbonate 1,600 mg PO TIDAC 03/08/20 08/07/20 Unknown History sucralfate 1 g PO Q6H PRN 03/08/20 08/07/20 Unknown History tacrolimus 1 mg PO BID 03/08/20 08/07/20 Unknown History albuterol sulfate [Ventolin HFA] 2 puff INHALATION Q4-6H PRN 08/07/20 08/07/20 Unknown History oxycodone 1 tab PO BID PRN 08/07/20 08/07/20 Unknown History Exam Exam Date and Time: August 08, 2020 1101 Height,Weight and Vital Signs: Height 5 ft 8 in Weight 68.039 kg Narrative Narrative: EKG 07/2020 Vent. Rate : 074 BPM Atrial Rate : 074 BPM P-R Int : 188 ms QRS Dur : 090 ms QT Int : 434 ms P-R-T Axes : 089 007 048 degrees QTc Int : 481 ms Normal sinus rhythm Septal infarct (cited on or before 03-SEP-2014) Abnormal ECG When compared with ECG of 08-MAR-2020 14:02, No significant change was found ECHO 2018 LVEF 73%. Bioprosthetic AV with expected velocites/gradients and mild paravalvular aortic regurg LVH Biatrial enlargement Airway Mallampati Class: II TM Dist: >3cm Neck ROM: Full Denture: Upper and Lower Heart: RRR +valve Lungs: CTAB Assessment and Plan Assessment Anesthesia Assessment: Anesthesia Plan Discussed (mac vs ga) and PAT Visit Documented by User: Kristen Ragland 08/14/20 09:56 [facility] Past Medical History Medical History Anemia Anxiety and depression Arthritis Asthma AV fistula Bronchitis Cirrhosis COPD (chronic obstructive pulmonary disease) Coronary artery disease COVID-19 vaccine series completed DJD (degenerative joint disease) of thoracic spine End-stage renal disease (ESRD) GERD (gastroesophageal reflux disease) Gout Hemodialysis patient History of blood transfusion History of transcatheter aortic valve replacement (TAVR) Murmur Neuropathy Patient on waiting list for kidney transplant Surgical History Surgical History History of liver transplant History of surgery on arm Hx of colonoscopy Social History Social History Household Members: None Housing: House Are you a primary health care analyst to a significant other at home: No Do you presently have visiting nurse or other home services: Yes ([facility]-help with light housekeeping,laundry) Alcohol intake: former Year quit: 2008 Smoking Status: Former smoker Smoking Quit Date: 1969' Use of substances other than those prescribed or required for medical reasons: No Have you been hit, kicked, punched, or otherwise hurt by someone within the past year? If so, by whom?: No Are you DNR?: No Advance Directives: No Advance Directives Information Provided: No Advance Directives on File: No Recently lost weight without trying: No service: No Current occupational status: retired Meds Allergies Allergy/AdvReac Type Severity Reaction Status Date / Time Sulfa (Sulfonamide Allergy Intermediate HIVES Verified 08/07/20 10:48 Antibiotics) Heparin Analogues Allergy Unknown UNKNOWN Verified 03/08/20 22:50 [Heparin Agents] verapamil Allergy Unknown unknown Verified 03/08/20 22:50 Home Medications Medication Instructions Recorded Confirmed Last Taken Type aspirin 81 mg tablet,delayed 81 mg PO QAM 01/26/20 08/07/20 Unknown History release famotidine 20 mg tablet 20 mg PO BID 01/26/20 08/07/20 Unknown History folic acid 1 mg tablet 1 mg PO DAILY 01/26/20 08/07/20 Unknown History levothyroxine 25 mcg tablet 25 mcg PO DAILY 01/26/20 08/07/20 Unknown History rosuvastatin 10 mg tablet 10 mg PO BEDTIME 01/26/20 08/07/20 Unknown History venlafaxine 37.5 mg 37.5 mg PO DAILY 01/26/20 08/07/20 Unknown History capsule,extended release 24 hr allopurinol 100 mg PO DAILY 03/08/20 08/07/20 Unknown History docusate sodium [DOK] 100 mg PO BID PRN 03/08/20 08/07/20 Unknown History sevelamer carbonate 1,600 mg PO TIDAC 03/08/20 08/07/20 Unknown History sucralfate 1 g PO Q6H PRN 03/08/20 08/07/20 Unknown History tacrolimus 1 mg PO BID 03/08/20 08/07/20 Unknown History albuterol sulfate [Ventolin HFA] 2 puff INHALATION Q4-6H PRN 08/07/20 08/07/20 Unknown History oxycodone 1 tab PO BID PRN 08/07/20 08/07/20 Unknown History Exam Airway Mallampati Class: II TM Dist: >3cm Neck ROM: Full Assessment and Plan Assessment Anesthesia Assessment: Anesthesia Plan Discussed and Chart Reviewed Final Anesthetic Review NPO: Yes ASA Class: IV Final Preanesthetic Review: No Changes in Pt Med Stat, Meds/Allgs Chart Reviewed, Consent Obtained/Reviewed and Anes Risks/Benef Reviewed Patient Risk: High Procedure Risk: Low Assessment/Block/Sedation in SS: Assess/Block/Sedation-SS Anesthetic Plan Anesthetic Plan: MAC: Disposition: Standard PACU
[2020-08-08 12:01] VITALS: BP 178/90; PULSE 78; RESP 16; O2SAT 98
[2020-08-08 13:33] LABS: Hematocrit 38.9 % (37-47); Hemoglobin 12.5 g/dl (12.0-16.0); Mean Corpuscular HGB Conc 32.1 g/dl (31.0-35.0); Mean Corpuscular Hemoglobin 30.3 pg (27.0-33.0); Mean Corpuscular Volume 94.4 fL (80-98); Mean Platelet Volume 11.1 fL (9.4-12.3); Platelet Count 220 X10*3/uL (160-400); Red Blood Count 4.12 X10*6/uL (4.20-5.50); Red Cell Distribution Width 14.8 % (11.0-16.0); White Blood Count 7.9 X10*3/uL (4.8-10.8)
[2020-08-08 13:50] LABS: Alanine Aminotransferase 16 U/L (0-31); Alkaline Phosphatase 152 U/L (39-117); Anion Gap 15 (12-20); Aspartate Amino Transferase 22 U/L (5-31); Bilirubin Total 0.6 mg/dL (0.0-1.0); Blood Urea Nitrogen 25 mg/dL (9-16); Calcium 7.6 mg/dL (8.4-10.2); Carbon Dioxide 32 mmol/L (22-29); Chloride 96 mmol/L (96-108); Glucose Random 102 mg/dL (60-115); Potassium 4.5 mmol/L (3.3-5.1); Sodium 138 mmol/L (135-145); Total Protein 6.9 g/dL (6.5-8.0)
[2020-08-08 14:11] LABS: Creatinine Clr Calc Pharmacy 12.5; Estimated Glomerular Filt Rate 10
[2020-08-14] VITALS (10 sets, daily range): BP systolic 132–195; BP diastolic 65–90; PULSE 61–72; RESP 16–20; TEMP 36.1–36.6; O2SAT 97–100
--- NOTE | 2020-08-14 10:14 | MHC.SHP ---
Pre-Procedural Eval Section A The patient is an INPATIENT: No Changes since office visit: Yes Patient answered all questions; No Cold of Flu in the past 2 weeks, No New Medical Problems and No Changes in Medication The History & Physical has been completed within 30 days and I have reviewed it.: Yes Section B Chief Complaint: s/p inguinal Hernia repair Allergies: Allergies Allergy/AdvReac Type Severity Reaction Status Date / Time Sulfa (Sulfonamide Allergy Intermediate HIVES Verified 08/07/20 10:48 Antibiotics) Heparin Analogues Allergy Unknown UNKNOWN Verified 03/08/20 22:50 [Heparin Agents] verapamil Allergy Unknown unknown Verified 03/08/20 22:50 Plan Diagnosis/Plan: Unchanged I have reviewed the history and physical and performed a pertinent physical examination on my patient. No changes have occurred unless specified.
[2020-08-14] MEDS: 0.9 % Sodium Chloride 1,000 ML 50 ML IVCONT (10:16)
--- NOTE | 2020-08-14 11:52 | W.PM.OPN ---
Operative Note Operative Note Date of Service: 08/14/20 Narrative: Preoperative diagnosis: Left inguinal hernia Postoperative diagnosis: Same Procedure: Repair of left inguinal hernia with mesh Surgeon: Chele Hyde MD Last Dipper: ELVER Wong Anesthesia: MAC plus local Indications for procedure: 69-year-old female patient with history of liver transplant end-stage renal disease awaiting renal transplant presenting with a symptomatic left inguinal hernia. Initial attempts at watchful waiting were unsuccessful as the patient continued to have symptoms required ED visits for reduction of the hernia. She presents today for repair of the left inguinal hernia with mesh. She will be observed overnight and will require dialysis tomorrow. Operative findings: Large indirect left inguinal hernia extending down to the pubis. Specimen: Hernia sac Estimated blood loss: 10 mL Complications: None Procedure details: Patient was brought to the OR and placed in a supine position. After administering MAC anesthesia the patient's left inguinal abdomen was prepped with ChloraPrep and draped in a sterile fashion. A surgical time-out was called and the consent confirmed. Patient received preoperative antibiotics and Venodyne boots were in place. Local anesthesia consisting of lidocaine 1% plain was infiltrated over the left inguinal ligament. Incision was then made with a scalpel and carried down through subcutaneous tissue past Job's fashion up to the external oblique aponeurosis. Additional anesthesia consisting of Sensorcaine with epinephrine 0.25% was infiltrated in the subcutaneous tissue and below the external oblique aponeurosis. This was then incised with a scalpel widened with the Metzenbaum scissors. The round ligament was then dissected free from the inguinal canal and retracted using a [place] drain. The round ligament was noted to be thickened suggestive of an indirect hernia. The floor of the inguinal canal was normal. The fibers of the round ligament were and a large hernia sac identified. This was dissected down to the internal ring suture ligated and excised. This was sent to pathology as a specimen. Dissection through the internal ring created a preperitoneal space. This was then opened further with a Ray-July sponge. A medium PHS mesh was then obtained in the circular underlay placed it within the preperitoneal space through the internal ring. A slit was made in the mesh at the internal ring and wrapped around the round ligament. The mesh overlay was secured to the pubic tubercle, conjoined tendon, and shelving edge of the inguinal ligament using 0 Polysorb suture. The mesh was secured around the internal ring again using the 0 Polysorb suture to the shelving edge of the inguinal ligament. Wounds were then irrigated and suctioned dry. The external oblique aponeurosis was then closed using a running 2 0 Polysorb suture. Job's fascia and dermis reapproximated using interrupted 3-0 Polysorb sutures. Skin was then closed using a running subcuticular 4-0 Polysorb suture. Steri-Strips 2 x 2 gauze and Tegaderm were then applied. The patient tolerated the procedure well. Sponge instrument and needle counts reported as correct. The patient was transferred to PACU in stable condition.
[2020-08-14 11:54] LABS: Anion Gap 21 (12-20); Carbon Dioxide 25 mmol/L (22-29); Chloride 96 mmol/L (96-108); Potassium 5.4 mmol/L (3.3-5.1); Sodium 137 mmol/L (135-145)
[2020-08-14] MEDS: oxyCODONE HCl Immed Release 5 MG TABLET PO ×2 (11:59→22:16)
[2020-08-14] MEDS: Acetaminophen 325 MG TABLET 650 MG PO (12:00)
[2020-08-14] MEDS: HYDROmorphone HCl 0.5 MG/0.5 ML SYRINGE IVPUSH ×3 (12:21→20:01)
--- NOTE | 2020-08-14 13:59 | PM.IMCN ---
History of Present Illness Data of Consult Service Date: 08/14/20 Requesting physician: Chele Hyde Primary Care Provider: Vanessa Hu MD [facility] Reason for consult: Medical Management 61-year-old woman admitted by General surgery and is status post inguinal hernia repair. Surgery was unremarkable. Patient's vital signs have been stable though her blood pressure is on the higher side. She does have history of end-stage renal disease and liver cirrhosis status post liver transplant on tacrolimus. She has been able to eat a small amount full liquids without any nausea or vomiting. She reports no pain at this time as her surgical incisions still feels numb. She is currently resting in bed with no acute medical complaints. Review of Systems Review of Systems: Denies any recent fever chills or decrease in appetite respiratory denies any shortness of breath coverage production cardiovascular is adjustment of any PND or edema gastrointestinal small dressing to left lower extremity genitourinary denies any dysuria frequency or hematuria musculoskeletal denies any joint pain or swelling neuropsych denies any weakness or seizures all other systems reviewed are negative [facility] Medical History Anemia Anxiety and depression Arthritis Asthma AV fistula Bronchitis Cirrhosis COPD (chronic obstructive pulmonary disease) Coronary artery disease COVID-19 vaccine series completed DJD (degenerative joint disease) of thoracic spine End-stage renal disease (ESRD) GERD (gastroesophageal reflux disease) Gout Hemodialysis patient History of blood transfusion History of transcatheter aortic valve replacement (TAVR) Murmur Neuropathy Patient on waiting list for kidney transplant Surgical History History of liver transplant History of surgery on arm Hx of colonoscopy Social History Household Members: None Housing: House Are you a primary day care aide to a significant other at home: No Do you presently have visiting nurse or other home services: Yes ([facility]-help with light housekeeping,laundry) Alcohol intake: former Year quit: 2008 Smoking Status: Former smoker Smoking Quit Date: Use of substances other than those prescribed or required for medical reasons: No Have you been hit, kicked, punched, or otherwise hurt by someone within the past year? If so, by whom?: No Are you DNR?: No Advance Directives: No Advance Directives Information Provided: No Advance Directives on File: No Recently lost weight without trying: No service: No Current occupational status: retired Meds Allergies Allergy/AdvReac Type Severity Reaction Status Date / Time Sulfa (Sulfonamide Allergy Intermediate HIVES Verified 08/14/20 10:44 Antibiotics) Heparin Analogues Allergy Unknown UNKNOWN Verified 08/14/20 10:44 [Heparin Agents] verapamil Allergy Unknown unknown Verified 08/14/20 10:44 Active Medications: Current Medications Generic Name Dose Route Start Last Admin Trade Name Freq PRN Reason Stop Dose Admin Acetaminophen 650 mg 08/14/20 13:50 Acetaminophen 325 Mg Tablet PO Q6H PRN Pain, Mild (Pain Scale 1-3) Albuterol Sulfate 2 puff 08/14/20 13:50 Albuterol Sulfate 90 Mcg 8 Gm Inhaler INHALE Q4-6H PRN Shortness Of Breath Or Wheezing Allopurinol 100 mg 08/15/20 09:00 Allopurinol 100 Mg Tablet PO DAILY [facility] Aspirin 81 mg 08/14/20 13:50 Aspirin Enteric Coated 81 Mg Tablet.Dr TATUM YOON [facility] Docusate Sodium 100 mg 08/14/20 13:50 Docusate Sodium 100 Mg Capsule PO BID PRN Constipation Famotidine 20 mg 08/14/20 21:00 Famotidine 20 Mg Tablet PO BID [facility] Folic Acid 1 mg 08/15/20 09:00 Folic Acid 1 Mg Tablet PO DAILY [facility] Hydromorphone HCl 0.5 mg 08/14/20 13:50 Hydromorphone Hcl 0.5 Mg/0.5 Ml Syringe IVPUSH Q4H PRN Pain, Severe (Pain Scale 7-10) Levothyroxine Sodium 25 mcg 08/15/20 09:00 Levothyroxine Sodium 25 Mcg Tablet PO DAILY [facility] Lidocaine HCl 20 ml 08/14/20 13:50 Lidocaine Hcl 1 % 20 Ml Vial SUBCUT 08/14/20 13:51 ONCE ONE Non-Formulary Medication 1,600 mg 08/14/20 16:30 Sevelamer Carbonate PO TIDAC [facility] Non-Formulary Medication 10 mg 08/14/20 21:00 Rosuvastatin PO BEDTIME [facility] Ondansetron HCl 4 mg 08/14/20 13:50 Ondansetron Hcl 4 Mg/2 Ml Vial IVPUSH Q8H PRN Nausea and Vomiting Oxycodone HCl 5 mg 08/14/20 13:50 Oxycodone Hcl Immed Release 5 Mg Tablet PO BID PRN Pain Oxycodone HCl 5 mg 08/14/20 13:50 Oxycodone Hcl Immed Release 5 Mg Tablet PO Q6H PRN Pain, Moderate (Pain Scale 4-6 Sodium Chloride 3 ml 08/14/20 16:00 0.9 % Sodium Chloride Flush 3 Ml Syringe IVFLUSH QSHIFT [facility] Sucralfate 1 gm 08/14/20 13:50 Sucralfate 1 Gm Tablet PO Q6H PRN pain Tacrolimus 1 mg 08/14/20 21:00 Tacrolimus 1 Mg Capsule PO BID [facility] Temazepam 15 mg 08/14/20 13:50 Temazepam 15 Mg Capsule PO BEDTIME PRN Insomnia Venlafaxine HCl 37.5 mg 08/15/20 09:00 Venlafaxine Hcl Er 37.5 Mg Cap.Er.24h PO DAILY [facility] Home Medications Medication Instructions Recorded Confirmed Last Taken Type aspirin 81 mg tablet,delayed 81 mg PO QAM 01/26/20 08/07/20 Unknown History release famotidine 20 mg tablet 20 mg PO BID 01/26/20 08/07/20 Unknown History folic acid 1 mg tablet 1 mg PO DAILY 01/26/20 08/07/20 Unknown History levothyroxine 25 mcg tablet 25 mcg PO DAILY 01/26/20 08/07/20 Unknown History rosuvastatin 10 mg tablet 10 mg PO BEDTIME 01/26/20 08/07/20 Unknown History venlafaxine 37.5 mg 37.5 mg PO DAILY 01/26/20 08/07/20 Unknown History capsule,extended release 24 hr allopurinol 100 mg PO DAILY 03/08/20 08/07/20 Unknown History docusate sodium [DOK] 100 mg PO BID PRN 03/08/20 08/07/20 Unknown History sevelamer carbonate 1,600 mg PO TIDAC 03/08/20 08/07/20 Unknown History sucralfate 1 g PO Q6H PRN 03/08/20 08/07/20 Unknown History tacrolimus 1 mg PO BID 03/08/20 08/07/20 Unknown History albuterol sulfate [Ventolin HFA] 2 puff INHALATION Q4-6H PRN 08/07/20 08/07/20 Unknown History oxycodone 1 tab PO BID PRN 08/07/20 08/07/20 Unknown History amlodipine 1 tab PO DAILY 08/14/20 Unknown History calcium citrate [Calcitrate] 400 mg PO DAILY 08/14/20 Unknown History cholecalciferol (vitamin D3) 1 tab PO DAILY 08/14/20 Unknown History clonazepam 1 tab PO DAILY PRN 08/14/20 Unknown History hydroxyzine HCl 1 tab PO BID 08/14/20 Unknown History ropinirole 1 tab PO BEDTIME 08/14/20 Unknown History venlafaxine 1 tab PO DAILY 08/14/20 Unknown History Physical Exam Vital Signs and Narrative: Vital Signs: Last Vital Signs Temp 97.8 F 08/14/20 12:42 Pulse 63 08/14/20 12:42 Resp 16 08/14/20 12:42 BP 169/76 H 08/14/20 12:42 Pulse Ox 99 08/14/20 12:42 Body Mass Index 22.8 Appearing in no acute distress head is normocephalic atraumatic eyes pupils are PERRLA sclera is anicteric mouth throat mucous membranes are intact and moist neck is supple no lymphadenopathy, no JVD noted lung sounds are clear to auscultation heart regular rate rhythm, clear S1, S2 positive bowel sounds, abdomen is soft, still numb, surgical dressing in place, did not visualize incision neuro patient is alert x3, no focal deficits Results Labs CBC and Chem 7: 08/08/20 12:40 08/14/20 09:35 Labs: Laboratory Results - last 24 hr 08/14/20 09:35 Anion Gap 21 H Assessment and Plan (1) Left inguinal hernia: Status: Acute 61-year-old man admitted by General surgery and status post inguinal hernia repair. Left inguinal hernia repair. -management as per surgical team -pain management Hyperkalemia. 5.4 -Trend BMP End-stage renal disease. On dialysis Friday, and Friday -nephrology consultation for dialysis Liver cirrhosis. Status post liver transplant. -continue tacrolimus Hypertension. Eleavted BP. Also secondary to pain -Amlodipine COPD. No exacerbation. -albuterol as needed Hypothyroidism. -continue levothyroxine Depression. -continue home medications DVT prophylaxis as per surgical team Full code Attending: Dr. Pereira
[2020-08-14] MEDS: Aspirin Enteric Coated 81 MG TABLET.DR PO (15:20)
[2020-08-14] MEDS: 0.9 % Sodium Chloride Flush 3 ML SYRINGE IVFLUSH (16:03)
--- NOTE | 2020-08-14 16:48 | PM.CNNEP ---
History of Present Illness Reason for Consult Consult date: 08/14/20 Chief Complaint Chief complaint: Left inguinal hernia, ESRD [facility] Past Medical History Medical History Anemia Anxiety and depression Arthritis Asthma AV fistula Bronchitis Cirrhosis COPD (chronic obstructive pulmonary disease) Coronary artery disease COVID-19 vaccine series completed DJD (degenerative joint disease) of thoracic spine End-stage renal disease (ESRD) GERD (gastroesophageal reflux disease) Gout Hemodialysis patient History of blood transfusion History of transcatheter aortic valve replacement (TAVR) Murmur Neuropathy Patient on waiting list for kidney transplant Surgical History Surgical History History of liver transplant History of surgery on arm Hx of colonoscopy Social History Social History Household Members: None Housing: House Are you a primary caregivers non medical to a significant other at home: No Do you presently have visiting nurse or other home services: Yes ([facility]-help with light housekeeping,laundry) Alcohol intake: former Year quit: 2008 Smoking Status: Former smoker Smoking Quit Date: Use of substances other than those prescribed or required for medical reasons: No Currently Displaying Signs/Symptoms of Drug Intoxication Withdrawal: No Have you been hit, kicked, punched, or otherwise hurt by someone within the past year? If so, by whom?: No Are you DNR?: No Advance Directives: No Advance Directives Information Provided: No Advance Directives on File: No Do you have thoughts of harming others: None Do you have a plan to hurt others: No Plan Recently lost weight without trying: No service: No Current occupational status: retired Meds Allergies Allergy/AdvReac Type Severity Reaction Status Date / Time Sulfa (Sulfonamide Allergy Intermediate HIVES Verified 08/14/20 10:44 Antibiotics) Heparin Analogues Allergy Unknown UNKNOWN Verified 08/14/20 10:44 [Heparin Agents] verapamil Allergy Unknown unknown Verified 08/14/20 10:44 Active Medications: Current Medications Generic Name Dose Route Start Last Admin Trade Name Freq PRN Reason Stop Dose Admin Acetaminophen 650 mg 08/14/20 13:50 Acetaminophen 325 Mg Tablet PO Q6H PRN Pain, Mild (Pain Scale 1-3) Albuterol Sulfate 2 puff 08/14/20 13:50 Albuterol Sulfate 90 Mcg 8 Gm Inhaler INHALE Q4H PRN Shortness Of Breath Or Wheezing Allopurinol 100 mg 08/15/20 09:00 Allopurinol 100 Mg Tablet PO DAILY [facility] Aspirin 81 mg 08/14/20 13:50 08/14/20 15:20 Aspirin Enteric Coated 81 Mg Tablet.Dr PO 81 mg DAILY [facility] Administration Atorvastatin Calcium 40 mg 08/14/20 21:00 Atorvastatin Calcium 40 Mg Tablet PO BEDTIME [facility] Docusate Sodium 100 mg 08/14/20 13:50 Docusate Sodium 100 Mg Capsule PO BID PRN Constipation Famotidine 20 mg 08/14/20 21:00 Famotidine 20 Mg Tablet PO BID [facility] Folic Acid 1 mg 08/15/20 09:00 Folic Acid 1 Mg Tablet PO DAILY [facility] Hydromorphone HCl 0.5 mg 08/14/20 13:50 08/14/20 15:43 Hydromorphone Hcl 0.5 Mg/0.5 Ml Syringe IVPUSH 0.5 mg Q4H PRN Administration Pain, Severe (Pain Scale 7-10) Levothyroxine Sodium 25 mcg 08/15/20 06:00 Levothyroxine Sodium 25 Mcg Tablet PO DAILY@0600 [facility] Ondansetron HCl 4 mg 08/14/20 13:50 Ondansetron Hcl 4 Mg/2 Ml Vial IVPUSH Q8H PRN Nausea and Vomiting Oxycodone HCl 5 mg 08/14/20 13:50 Oxycodone Hcl Immed Release 5 Mg Tablet PO BID PRN Pain Oxycodone HCl 5 mg 08/14/20 13:50 Oxycodone Hcl Immed Release 5 Mg Tablet PO Q6H PRN Pain, Moderate (Pain Scale 4-6 Pharmacy Consult 1 each 08/14/20 15:12 Consult Rx Perform Med Rec MISCELLANE ONCE PRN Consult order Sevelamer Carbonate 1,600 mg 08/14/20 16:30 Sevelamer Carbonate 800 Mg Powd.Pack PO TIDAC [facility] Sevelamer HCl 1,600 mg 08/14/20 17:00 Sevelamer Hcl 800 Mg Tablet PO 08/14/20 17:01 ONCE ONE Sodium Chloride 3 ml 08/14/20 16:00 08/14/20 16:03 0.9 % Sodium Chloride Flush 3 Ml Syringe IVFLUSH 3 ml QSHIFT [facility] Administration Sucralfate 1 gm 08/14/20 13:50 Sucralfate 1 Gm Tablet PO Q6H PRN pain Tacrolimus 1 mg 08/14/20 21:00 Tacrolimus 1 Mg Capsule PO BID [facility] Temazepam 15 mg 08/14/20 13:50 Temazepam 15 Mg Capsule PO BEDTIME PRN Insomnia Venlafaxine HCl 25 mg 08/15/20 09:00 Venlafaxine Hcl 25 Mg Tablet PO DAILY [facility] Home Medications Medication Instructions Recorded Confirmed Last Taken Type aspirin 81 mg tablet,delayed 81 mg PO QAM 01/26/20 08/07/20 08/13/20 History release famotidine 20 mg tablet 20 mg PO BID 01/26/20 08/14/20 08/14/20 09:00 History folic acid 1 mg tablet 1 mg PO DAILY 01/26/20 08/07/20 08/13/20 History levothyroxine 25 mcg tablet 25 mcg PO DAILY 01/26/20 08/14/20 08/14/20 06:00 History rosuvastatin 10 mg tablet 10 mg PO BEDTIME 01/26/20 08/07/20 08/13/20 History allopurinol 100 mg PO DAILY 03/08/20 08/07/20 08/13/20 History docusate sodium [DOK] 100 mg PO BID PRN 03/08/20 08/07/20 Unknown History sevelamer carbonate 1,600 mg PO TIDAC 03/08/20 08/07/20 08/13/20 History sucralfate 1 g PO Q6H PRN 03/08/20 08/07/20 Unknown History tacrolimus 1 mg PO BID 03/08/20 08/14/20 08/14/20 09:00 History albuterol sulfate [Ventolin HFA] 2 puff INHALATION Q4-6H PRN 08/07/20 08/07/20 Unknown History oxycodone 1 tab PO BID PRN 08/07/20 08/07/20 Unknown History Fluorouracil 5% Topical Cream 1 appl TOPICAL DAILY 08/14/20 08/14/20 Unknown History calcium citrate [Calcitrate] 400 mg PO USEASDIRECTD 08/14/20 08/14/20 Unknown History cholecalciferol (vitamin D3) 1 tab PO DAILY 08/14/20 08/14/20 08/13/20 History clonazepam 1 tab PO DAILY PRN 08/14/20 08/14/20 Unknown History cyclobenzaprine 10 mg PO BID PRN 08/14/20 08/14/20 Unknown History hydroxyzine HCl 1 tab PO BID PRN 08/14/20 08/14/20 Unknown History loperamide 2 mg PO Q4H PRN 08/14/20 08/14/20 Unknown History methyl salicylate-menthol [BenGay] 1 ea TOPICAL DAILY PRN 08/14/20 08/14/20 08/13/20 History ondansetron HCl [Zofran] 4 mg PO Q8H PRN 08/14/20 08/14/20 Unknown History ropinirole 1 tab PO BEDTIME 08/14/20 08/14/20 08/13/20 History venlafaxine 1 tab PO DAILY 08/14/20 08/14/20 08/14/20 History Physical Exam Vital Signs: Last Vital Signs Temp 97 F 08/14/20 16:00 Pulse 68 08/14/20 16:00 Resp 20 08/14/20 16:00 BP 172/82 H 08/14/20 16:00 Pulse Ox 98 08/14/20 16:00 Body Mass Index 22.8 oral moist mucosa lungs clear s1s2 abd soft mild tender in hernia repar area AF +thrill neuro non focal Results Lab Results Result Diagrams: 08/08/20 12:40 08/14/20 09:35 Lab results: Chemistry 08/14/20 09:35 Sodium 137 Potassium 5.4 H Carbon Dioxide 25 Assessment and Plan (1) End-stage renal disease (ESRD): Problem details: plan for HD in AM Status: Acute (2) Cirrhosis: Problem details: s/p transplant, liver functioning, on TACROLIMUS Continue immunosuppressive therapy. Status: Acute (3) Hyperkalemia: Problem details: HD tomorrow Friday regular HD day Status: Acute when able to eat resume low K diet Procedures Date of Service Date of Service: 08/14/20
[2020-08-14] MEDS: Famotidine 20 MG TABLET PO (19:55)
[2020-08-14] MEDS: Atorvastatin Calcium 40 MG TABLET PO (19:55)
[2020-08-14] MEDS: Tacrolimus 1 MG CAPSULE PO (19:56)
[2020-08-14] MEDS: Sucralfate 1 GM TABLET PO (22:20)
--- NOTE | 2020-08-14 22:29 | CONS_ITS ---
DATE OF SERVICE: REASON FOR CONSULTATION: Evaluation of ESRD. HISTORY OF PRESENT ILLNESS: Ms. 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 She has been on intermittent hemodialysis at the [facility], she undergoes hemodialysis on Friday, , Friday via left upper extremity AV fistula. She has been doing remarkably well. She has been admitted to the hospital for elective hernia repair. She had uneventful procedure. She has had a longstanding history of hypertension and liver cirrhosis, for which she remains post liver transplantation on immunosuppression, tacrolimus therapy. She has been doing reasonably well. Denies any specific symptoms this afternoon, call for consultation as she will need dialysis tomorrow morning. 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. Anemia, arthritis, asthma, bronchitis, liver disease, cirrhosis, gout, depression, degenerative joint disease, aortic valve stenosis, status post transcatheter aortic valve replacement. PAST SURGICAL HISTORY: Liver transplant, left upper extremity AV fistula creation, colonoscopy. SOCIAL HISTORY: Lives at home by herself. She used to smoke and quit back in 2008. Denies any illicit drug use. FAMILY HISTORY: Noncontributory. ALLERGIES: SULFAS, HEPARIN, AND VERAPAMIL. MEDICATIONS: Acetaminophen, albuterol, allopurinol, aspirin, Colace, famotidine, folic acid, hydromorphone, lidocaine p.r.n., Zofran, temazepam, venlafaxine, and tacrolimus. REVIEW OF SYSTEMS: Presently, she denies any nausea, vomiting, diarrhea, abdominal pain, melena, headache, visual changes, chest pain, shortness of breath, palpitations, cough, hemoptysis, hematemesis, or bright red blood per rectum. Rest of the 10-point review of systems negative. PHYSICAL EXAMINATION: VITAL SIGNS: Her blood pressure is 169/76, heart rate of 63 per minute, oxygen saturation 99% on room air. HEENT: Oral moist mucosa. NECK: Reveals no jugular venous distention. LUNGS: Clear. HEART: S1, S2. No S3, no S4. No murmurs. ABDOMEN: Soft, nontender, nondistended. Positive bowel sounds. Minimal discomfort on the surgical site, status post hernia repair. NEUROLOGIC: Nonfocal. Left upper extremity AV fistula. LABORATORY DATA: Potassium 5.4, hemoglobin 12.5. IMPRESSION: Ms. 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 She does have a mild hyperkalemia, potassium of 5.4, which presently requires no acute urgent treatment. We will plan to do her regular dialysis treatment first thing tomorrow, Friday a.m. Continue with her current antihypertensive regimen including amlodipine and immunosuppression including tacrolimus for history of liver cirrhosis. Continue with antidepressant therapy, which she needs on a regular basis. If there is any concern for hypertension, may add hydralazine 10 mg IV p.r.n. q.4 hours for systolic blood pressure above 180. We will go ahead and plan for dialysis first thing Friday. Thank you for allowing me to be part of her care. MD ROSANA Galeano/RD / [phone]
[2020-08-15] VITALS: BP 171/81; PULSE 66; RESP 16; TEMP 37.2; O2SAT 99
[2020-08-15] MEDS: HYDROmorphone HCl 0.5 MG/0.5 ML SYRINGE IVPUSH ×2 (00:08→04:12)
[2020-08-15 04:00] VITALS: BP 107/61; PULSE 94; RESP 18; TEMP 37; O2SAT 100
[2020-08-15] MEDS: Acetaminophen 325 MG TABLET 650 MG PO ×2 (04:58→20:15)
[2020-08-15] MEDS: Levothyroxine Sodium 25 MCG TABLET PO (04:59)
[2020-08-15] MEDS: oxyCODONE HCl Immed Release 5 MG TABLET PO (04:59)
[2020-08-15] MEDS: ondansetron HCL 4 MG/2 ML VIAL IVPUSH (07:33)
[2020-08-15] MEDS: 0.9 % Sodium Chloride Flush 3 ML SYRINGE IVFLUSH ×3 (07:37→22:30)
[2020-08-15 07:58] VITALS: BP 176/81; PULSE 68; RESP 17; TEMP 36.5; O2SAT 97
[2020-08-15] MEDS: oxyCODONE HCl Immed Release 5 MG TABLET 10 MG PO ×2 (08:21→13:42)
[2020-08-15] MEDS: hydrOXYzine HCL 25 MG TABLET PO ×2 (09:15→20:15)
[2020-08-15] MEDS: allopurinoL 100 MG TABLET PO (09:38)
[2020-08-15] MEDS: Venlafaxine HCL 25 MG TABLET PO (09:38)
[2020-08-15] MEDS: Folic Acid 1 MG TABLET PO (09:38)
[2020-08-15] MEDS: Tacrolimus 1 MG CAPSULE PO ×2 (09:38→22:27)
[2020-08-15] MEDS: Famotidine 20 MG TABLET PO ×2 (09:38→22:27)
[2020-08-15] MEDS: Aspirin Enteric Coated 81 MG TABLET.DR PO (09:38)
--- NOTE | 2020-08-15 10:19 | HO.POSTANES ---
Post Anesthesia Evaluation Post Anesthesia Evaluation Vital Signs: Vital Signs Temp Pulse Resp BP Pulse Ox 08/15/20 07:58 97.7 F 68 17 176/81 H 97 08/15/20 04:00 98.6 F 94 18 107/61 100 08/15/20 00:00 98.9 F 66 16 171/81 H 99 Anesthesia: Monitored Mental Status: Awake Pain Control: Satisfactory Nausea/Vomiting: None Hydration: Adequate Anesthesia-Related Issues: No Anes. Related Issues
--- NOTE | 2020-08-15 12:30 | PM.PNGS ---
Subjective Subjective Date of Service: 08/15/20 Interval history: Patient complaining of incisional pain and swelling, reports having difficulty sleeping due to the pain. 5 mg of oxycodone is not touching her pain. Physical Exam Vital Signs: Vital Signs: Last Vital Signs Temp 97.7 F 08/15/20 07:58 Pulse 68 08/15/20 07:58 Resp 17 08/15/20 07:58 BP 176/81 H 08/15/20 07:58 Pulse Ox 97 08/15/20 07:58 Body Mass Index 22.8 Const: General: cooperative, no acute distress and in distress Nutritional Appearance: thin Orientation/consciousness: patient oriented x3 Resp: Effort & Inspection: normal respiratory effort GI: Other: Incision in the left groin is ecchymotic with some bloody discharge on the dressing. Dressing was changed and dry sterile dressing applied. No active bleeding identified. Skin: General skin exam: no rashes or lesions noted Neuro: General: patient oriented x3 Progress Note: A&P Assessment and plan (1) Left inguinal hernia: Status: Acute Assessment and Plan: Patient is postop day 1 status post left inguinal hernia repair. Major problems now are pain control following the procedure. She is due for dialysis this morning. I will adjust her pain medication and reassess this afternoon for possible discharge to home. She expressed understanding and agrees with the plan. Fall Risk Details Current Medications: Current Medications Generic Name Dose Route Start Last Admin Trade Name Freq PRN Reason Stop Dose Admin Acetaminophen 650 mg 08/14/20 13:50 08/15/20 04:58 Acetaminophen 325 Mg Tablet PO 650 mg Q6H PRN Administration Pain, Mild (Pain Scale 1-3) Albuterol Sulfate 2 puff 08/14/20 13:50 Albuterol Sulfate 90 Mcg 8 Gm Inhaler INHALE Q4H PRN Shortness Of Breath Or Wheezing Allopurinol 100 mg 08/15/20 09:00 08/15/20 09:38 Allopurinol 100 Mg Tablet PO 100 mg DAILY [facility] Administration Aspirin 81 mg 08/14/20 13:50 08/15/20 09:38 Aspirin Enteric Coated 81 Mg Tablet. PO 81 mg DAILY [facility] Administration Atorvastatin Calcium 40 mg 08/14/20 21:00 08/14/20 19:55 Atorvastatin Calcium 40 Mg Tablet PO 40 mg BEDTIME [facility] Administration Docusate Sodium 100 mg 08/14/20 13:50 Docusate Sodium 100 Mg Capsule PO BID PRN Constipation Famotidine 20 mg 08/14/20 21:00 08/15/20 09:38 Famotidine 20 Mg Tablet PO 20 mg BID [facility] Administration Folic Acid 1 mg 08/15/20 09:00 08/15/20 09:38 Folic Acid 1 Mg Tablet PO 1 mg DAILY [facility] Administration Hydromorphone HCl 0.5 mg 08/14/20 13:50 08/15/20 04:12 Hydromorphone Hcl 0.5 Mg/0.5 Ml Syringe IVPUSH 0.5 mg Q4H PRN Administration Pain, Severe (Pain Scale 7-10) Hydroxyzine HCl 25 mg 08/15/20 08:15 08/15/20 09:15 Hydroxyzine Hcl 25 Mg Tablet PO 25 mg Q6H PRN Administration Itching Levothyroxine Sodium 25 mcg 08/15/20 06:00 08/15/20 04:59 Levothyroxine Sodium 25 Mcg Tablet PO 25 mcg DAILY@0600 [facility] Administration Ondansetron HCl 4 mg 08/14/20 13:50 08/15/20 07:33 Ondansetron Hcl 4 Mg/2 Ml Vial IVPUSH 4 mg Q8H PRN Administration Nausea and Vomiting Oxycodone HCl 10 mg 08/15/20 08:04 08/15/20 08:21 Oxycodone Hcl Immed Release 5 Mg Tablet PO 10 mg Q4H PRN Administration Pain, Moderate (Pain Scale 4-6 Pharmacy Consult 1 each 08/14/20 15:12 Consult Rx Perform Med Rec MISCELLANE ONCE PRN Consult order Sevelamer Carbonate 1,600 mg 08/14/20 16:30 08/15/20 12:11 Sevelamer Carbonate 800 Mg Powd.Pack PO Not Given TIDAC [facility] Sodium Chloride 3 ml 08/14/20 16:00 08/15/20 07:37 0.9 % Sodium Chloride Flush 3 Ml Syringe IVFLUSH 3 ml QSHIFT [facility] Administration Sucralfate 1 gm 08/14/20 13:50 08/14/20 22:20 Sucralfate 1 Gm Tablet PO 1 gm Q6H PRN Administration pain Tacrolimus 1 mg 08/14/20 21:00 08/15/20 09:38 Tacrolimus 1 Mg Capsule PO 1 mg BID [facility] Administration Temazepam 15 mg 08/14/20 13:50 Temazepam 15 Mg Capsule PO BEDTIME PRN Insomnia Venlafaxine HCl 25 mg 08/15/20 09:00 08/15/20 09:38 Venlafaxine Hcl 25 Mg Tablet PO 25 mg DAILY [facility] Administration Time Spent With Patient Time: Total time spent is greater than 50% in coordination of care (as documented) at patient's floor/unit and/or counseling patient: Time with patient: 15 - 24 minutes Procedures Date of Service Date of Service: 08/15/20
--- NOTE | 2020-08-15 13:52 | PM.PNNEP ---
Subjective Subjective Date of Service: 08/15/20 Physical Exam Vital Signs: Vital Signs: Last Vital Signs Temp 97.7 F 08/15/20 07:58 Pulse 68 08/15/20 07:58 Resp 17 08/15/20 07:58 BP 176/81 H 08/15/20 07:58 Pulse Ox 97 08/15/20 07:58 Body Mass Index 22.8 oral moist mucosa lungs clear s1s2 abd soft +pain surgical site ext no edema AVF+thrill neuro NOn focal Objective Data Labs CBC & Chem 7: 08/08/20 12:40 08/14/20 09:35 Assessment & Plan Assessment and plan (1) End-stage renal disease (ESRD): Problem details: HD TTS Status: Acute (2) Hyperkalemia: Problem details: HD TTS, tolerated HD well, ?DC if still inhouse will dialyze on MEGAN her regular day, pls KEEP LOW K diet Status: Acute (3) Left inguinal hernia: Problem details: s/p repair Status: Acute Time Spent With Patient Time: Total time spent is greater than 50% in coordination of care (as documented) at patient's floor/unit and/or counseling patient: Procedures Date of Service Date of Service: 08/15/20
[2020-08-15 14:44] LABS: Anion Gap 18 (12-20); Blood Urea Nitrogen 18 mg/dL (9-16); Calcium 7.4 mg/dL (8.4-10.2); Carbon Dioxide 23 mmol/L (22-29); Chloride 97 mmol/L (96-108); Creatinine Clr Calc Pharmacy 14.9; Estimated Glomerular Filt Rate 12; Glucose Random 124 mg/dL (60-115); Potassium 4.6 mmol/L (3.3-5.1); Sodium 133 mmol/L (135-145)
[2020-08-15 15:02] VITALS: BP 170/64; PULSE 76; RESP 16; TEMP 36.2; O2SAT 99
--- NOTE | 2020-08-15 15:25 | P.PNIM_ITS ---
Subjective Subjective Date of Service: 08/15/20 Interval History: Left inguinal incision area pain, hyperkalemia. Review of Systems Patient denies any chest pain or shortness of breath or fever or chills. Still has left inguinal area pain, no los discharge. Physical Exam Vital Signs: Vital Signs: Last Vital Signs Temp 97.2 F 08/15/20 15:02 Pulse 76 08/15/20 15:02 Resp 16 08/15/20 15:02 BP 170/64 H 08/15/20 15:02 Pulse Ox 99 08/15/20 15:02 Body Mass Index 22.8 Physical exam: Constitutional: Not in acute distress Cvs: [id number], [id number] , no murmur res: clear to auscultation ,no rhonchii or wheezing abd: no rebound or guarding ,nt, bs present.left inguinal incision area pain but no discharge . ext pulses present , no cyanosis neuro: axo3 , nonfocal. Objective Data Current Medications Generic Name Dose Route Start Last Admin Trade Name Freq PRN Reason Stop Dose Admin Acetaminophen 650 mg 08/14/20 13:50 08/15/20 04:58 Acetaminophen 325 Mg Tablet PO 650 mg Q6H PRN Administration Pain, Mild (Pain Scale 1-3) Albuterol Sulfate 2 puff 08/14/20 13:50 Albuterol Sulfate 90 Mcg 8 Gm Inhaler INHALE Q4H PRN Shortness Of Breath Or Wheezing Allopurinol 100 mg 08/15/20 09:00 08/15/20 09:38 Allopurinol 100 Mg Tablet PO 100 mg DAILY STACI Administration Aspirin 81 mg 08/14/20 13:50 08/15/20 09:38 Aspirin Enteric Coated 81 Mg Tablet.Dr PO 81 mg DAILY STACI Administration Atorvastatin Calcium 40 mg 08/14/20 21:00 08/14/20 19:55 Atorvastatin Calcium 40 Mg Tablet PO 40 mg BEDTIME STACI Administration Docusate Sodium 100 mg 08/14/20 13:50 Docusate Sodium 100 Mg Capsule PO BID PRN Constipation Famotidine 20 mg 08/14/20 21:00 08/15/20 09:38 Famotidine 20 Mg Tablet PO 20 mg BID STACI Administration Folic Acid 1 mg 08/15/20 09:00 08/15/20 09:38 Folic Acid 1 Mg Tablet PO 1 mg DAILY STACI Administration Hydromorphone HCl 0.5 mg 08/14/20 13:50 08/15/20 04:12 Hydromorphone Hcl 0.5 Mg/0.5 Ml Syringe IVPUSH 0.5 mg Q4H PRN Administration Pain, Severe (Pain Scale 7-10) Hydroxyzine HCl 25 mg 08/15/20 08:15 08/15/20 09:15 Hydroxyzine Hcl 25 Mg Tablet PO 25 mg Q6H PRN Administration Itching Levothyroxine Sodium 25 mcg 08/15/20 06:00 08/15/20 04:59 Levothyroxine Sodium 25 Mcg Tablet PO 25 mcg DAILY@0600 STACI Administration Ondansetron HCl 4 mg 08/14/20 13:50 08/15/20 07:33 Ondansetron Hcl 4 Mg/2 Ml Vial IVPUSH 4 mg Q8H PRN Administration Nausea and Vomiting Oxycodone HCl 10 mg 08/15/20 08:04 08/15/20 13:42 Oxycodone Hcl Immed Release 5 Mg Tablet PO 10 mg Q4H PRN Administration Pain, Moderate (Pain Scale 4-6 Pharmacy Consult 1 each 08/14/20 15:12 Consult Rx Perform Med Rec MISCELLANE ONCE PRN Consult order Sevelamer Carbonate 1,600 mg 08/14/20 16:30 08/15/20 12:11 Sevelamer Carbonate 800 Mg Powd.Pack PO Not Given TIDAC [facility] Sodium Chloride 3 ml 08/14/20 16:00 08/15/20 07:37 0.9 % Sodium Chloride Flush 3 Ml Syringe IVFLUSH 3 ml QSHIFT [facility] Administration Sucralfate 1 gm 08/14/20 13:50 08/14/20 22:20 Sucralfate 1 Gm Tablet PO 1 gm Q6H PRN Administration pain Tacrolimus 1 mg 08/14/20 21:00 08/15/20 09:38 Tacrolimus 1 Mg Capsule PO 1 mg BID STACI Administration Temazepam 15 mg 08/14/20 13:50 Temazepam 15 Mg Capsule PO BEDTIME PRN Insomnia Venlafaxine HCl 25 mg 08/15/20 09:00 08/15/20 09:38 Venlafaxine Hcl 25 Mg Tablet PO 25 mg DAILY STACI Administration Labs CBC & Chem 7: 08/08/20 12:40 08/15/20 14:00 Assessment and Plan (1) Left inguinal hernia: Problem details: s/p repair Status: Acute (2) Hyperkalemia: Problem details: HD TTS, tolerated HD well, ?DC if still inhouse will dialyze on MEGAN her regular day, pls KEEP LOW K diet Status: Acute Assessment and Plan: 61-year-old man admitted by General surgery and status post inguinal hernia repair. 1.Left inguinal hernia repair. -management as per surgical team, switched to oxycodone 10 mg daily -pain management bowel regimen -continue colace , miralex Surgery to reeval the plan in afternoon depending on patient's pain. 2.Hyperkalemia. 5.4 s/p hd -resolved. 3.End-stage renal disease. On dialysis Friday, and Friday -nephrology consultation for dialysis 4.Liver cirrhosis. Status post liver transplant. -continue tacrolimus 5.Hypertension. Eleavted BP. Also secondary to pain -Amlodipine 6.COPD. No exacerbation. -albuterol as needed 7.Hypothyroidism. -continue levothyroxine 8.Depression. -continue home medications DVT prophylaxis as per surgical team
--- NOTE | 2020-08-15 15:36 | MHC.CM.PN ---
NURSE CONCERT SINGER NOTE ELECTRONIC MEDICAL RECORD REVIEWED ALONG WITH CASE DISCUSSED WITH STAFF NURSE AND ON MULTIPLE DISCIPLINARY ROUNDS S/P LEFT INGUINAL HERNIA REPAIR 08/14/20 PER DOCUMENTATION PATIENT WITH PAST HISTORY OF LIVER CIRRHOSIS POST LIVER TRANSPLANT SHE ALSO HAS END STAGE RENAL DISEASE AND HAS BEEN ON HEMODIALYSIS SHE REPORTED SHE IS FOLLOWED BY A DOCTOR IN [facility] AND HAS COMPLETED ON THE TESTING AND WAITING FOR A KIDNEY TRANSPLANT LIST SHE LIVES ALONE , HAS FAMILY IN AREA BUT THEY ARE VERY BUSY AND WORK, SHE WALKS DAILY SHE HAS A CANE AND A WALKER FOR LONGER DISTANCES. SHE HAS [facility] FOR LAUNDRY 1X WEEKLY. SHE HAS NO VNA NO DME SERVICES, [facility] ON [facility] T-T-F- AT 7AM PCP DR MAYLIN PHIPPS [facility]
[2020-08-15] MEDS: polyethylene glycoL 3350 17 GM POWD.PACK PO (16:39)
[2020-08-15] MEDS: HYDROmorphone HCl 2 MG TABLET PO ×2 (17:23→21:49)
[2020-08-15 19:11] VITALS: BP 174/70; PULSE 71; RESP 16; TEMP 36.5; O2SAT 98
[2020-08-15] MEDS: Atorvastatin Calcium 40 MG TABLET PO (22:27)
[2020-08-16] VITALS: BP 180/90; PULSE 71; RESP 18; TEMP 37; O2SAT 98
[2020-08-16] MEDS: HYDROmorphone HCl 2 MG TABLET PO ×2 (02:34→06:36)
[2020-08-16 04:00] VITALS: BP 174/90; PULSE 72; RESP 71; TEMP 36.4; O2SAT 95
[2020-08-16] MEDS: Levothyroxine Sodium 25 MCG TABLET PO (06:33)
[2020-08-16] MEDS: hydrOXYzine HCL 25 MG TABLET PO (06:37)
[2020-08-16 07:41] VITALS: BP 183/81; PULSE 73; RESP 21; TEMP 36.5; O2SAT 97
--- NOTE | 2020-08-16 09:03 | W.MHC.F2F ---
Service Date Service Date: 08/16/20 Encounter Date of encounter: 08/16/20 Encounter: examination of the left inguinal incision reveals some bloody discharge from the incision which will require daily dressing changes Reasons for Services Signs and symptoms assessed: Vital signs, left inguinal incision evaluated Reason for intermediate: wound care and postoperative assessment and/or care MD Overseeing Care: Chele Hyde Homebound: Leaving the home is medically contraindicated at this time without the asist of a device and/or another person due th the listed conditions above and below. Reason homebound: unsteady gait / fall risk, pain with ambulation and weakness related to hospital stay Homebound supporting statement: Patient has pain with ambulation due to her recent surgery. Certification: Based on the above findings, I certify that this patient is confined to the home and needs intermittent intermediate care, physical therapy and/or speech therapy, or continues to need occupational therapy. The patient is under my care, and I have initiated the establishment of the plan of care. The patient will be followed by a physician who will periodically review the plan of care.
--- NOTE | 2020-08-16 09:06 | PM.DS ---
DS: Providers Provider Date of Service: 08/16/20 Date of admission: 08/14/20 09:37 Date of discharge: 08/16/20 Primary care physician: Vanessa Hu MD Admitting clinician: Chele Hyde Consults: 08/14/20 13:50 Consult to Hospitalist Routine Consulting Provider: Hospitalist Reason For Exam: s/p hernia repair, ESRD, needs dialysis tomorrow 08/14/20 14:17 Consult to Nephrology Routine Consulting Provider: Marko Umanzor Reason for consultation: esrd dialysis t,th,sa Has provider been notified: No Discharging clinician: Chele Hyde DS: Diagnosis Discharge Diagnosis (1) Left inguinal hernia: Status: Acute Problem details: s/p repair (2) Hyperkalemia: Status: Acute Problem details: HD TTS, tolerated HD well, ?DC if still inhouse will dialyze on MEGAN her regular day, pls KEEP LOW K diet DS: Medications Discharge Medications Home Medications: Home Medications Medication Instructions Recorded Confirmed aspirin 81 mg tablet,delayed 81 mg PO QAM 01/26/20 08/07/20 release famotidine 20 mg tablet 20 mg PO BID 01/26/20 08/14/20 folic acid 1 mg tablet 1 mg PO DAILY 01/26/20 08/07/20 levothyroxine 25 mcg tablet 25 mcg PO DAILY 01/26/20 08/14/20 rosuvastatin 10 mg tablet 10 mg PO BEDTIME 01/26/20 08/07/20 allopurinol 100 mg PO DAILY 03/08/20 08/07/20 docusate sodium [DOK] 100 mg PO BID PRN 03/08/20 08/07/20 sevelamer carbonate 1,600 mg PO TIDAC 03/08/20 08/07/20 sucralfate 1 g PO Q6H PRN 03/08/20 08/07/20 tacrolimus 1 mg PO BID 03/08/20 08/14/20 albuterol sulfate [Ventolin HFA] 2 puff INHALATION Q4-6H PRN 08/07/20 08/07/20 Fluorouracil 5% Topical Cream 1 appl TOPICAL DAILY 08/14/20 08/14/20 calcium citrate 400 mg PO USEASDIRECTD 08/14/20 08/14/20 cholecalciferol (vitamin D3) 1 tab PO DAILY 08/14/20 08/14/20 clonazepam 1 tab PO DAILY PRN 08/14/20 08/14/20 cyclobenzaprine 10 mg PO BID PRN 08/14/20 08/14/20 hydroxyzine HCl 1 tab PO BID PRN 08/14/20 08/14/20 loperamide 2 mg PO Q4H PRN 08/14/20 08/14/20 methyl salicylate-menthol 1 ea TOPICAL DAILY PRN 08/14/20 08/14/20 ondansetron HCl [Zofran] 4 mg PO Q8H PRN 08/14/20 08/14/20 ropinirole 1 tab PO BEDTIME 08/14/20 08/14/20 venlafaxine 1 tab PO DAILY 08/14/20 08/14/20 Previous Rx's Medication Instructions Recorded hydromorphone [Dilaudid] 2 mg PO Q4-6H PRN #20 tab 08/16/20 DS: Summary Hospital Course Hospital Course: 69-year-old female previously evaluated for left inguinal hernia now presenting with increased symptoms related to protrusion of the hernia causing increased pain. Most recently she was being evaluated at the orthopedic office and developed severe pain. She was placed in a supine position and a heating blanket applied. Following this, the hernia reduced and her pain improved. She remains on the renal transplant list is undergoing renal dialysis on Friday and Saturdays. She is being followed by [facility] for possible renal transplant. She previously underwent a Liver Transplantation. She denies nausea, vomiting, fever, or chills. She was scheduled for repair of this symptomatic and partially incarcerated left inguinal hernia. She has a previous history of a aortic valve replacement as well. Because of her multiple medical problems the decision was made to keep the patient as an extended recovery. She was taken to the OR on 08/14/2020 for repair of the left inguinal hernia with mesh. A large indirect hernia was identified extending into the pubis. This was repaired using a medium PHS mesh. A small sliding component was noted within the hernia. She tolerated the procedure well, and as planned she was placed as an extended recovery. A hospitalist consultation and nephrology consultation was obtained. Arrangements were made for hemodialysis for following day. On postoperative day 1 the patient reported severe pain in the left inguinal region with swelling and bruising. The left inguinal dressing was changed and an area of ecchymosis was identified but no hematoma. Wounds were clean and intact. Dressings were reapplied. Because of the bruising and swelling she was observed for another 24 hours. She underwent hemodialysis and tolerated this well. She was able to get out of bed and walk with a walker but reported some pain with ambulation. The pain also was noted with changes of position out of bed. On postoperative day 2, the patient felt much improved with better pain control and no further swelling. Wounds were clean, dry and intact. She was tolerating a regular diet without nausea or vomiting. Patient has subsequently discharged to home in stable condition. She will follow up in the office approximately 1 week for wound check. She was instructed to call for fever, chills, increased pain or swelling or other concerns regarding her incision. Time Spent with Patient Time attestation: Total time spent providing and/or coordinating discharge services: Discharge coordination time: Less than 30 minutes Quality: Stroke Does the patient have a stroke diagnosis?: No Physical Exam Vital Signs: Vital Signs: Last Vital Signs Temp 97.7 F 08/16/20 07:41 Pulse 73 08/16/20 07:41 Resp 21 H 08/16/20 07:41 BP 183/81 H 08/16/20 07:41 Pulse Ox 97 08/16/20 07:41 Body Mass Index 22.8 Const: General: cooperative, comfortable, alert and awake Nutritional Appearance: thin Orientation/consciousness: patient oriented x3 Limitations: no limitations Resp: Effort & Inspection: normal respiratory effort, no audible wheezes, no cough and no stridor GI: Other: Left inguinal incision is clean, dry, and intact with surrounding ecchymosis but no hematoma Palpation (GI): Soft to palpation, nontender, no guarding and not rigid Skin: Other: Warm, dry, no rash Neuro: General: patient oriented x3 Extrem: General: Yes normal to inspection DS: Data Data Completed and Pending Completed studies during hospitalization [Text1]: Pending at discharge 08/14/20 10:58 Surgical [PTH] Routine Procedures Performance of Urinary Filtration, Intermittent, Less than 6 Hours Per Day (03/08/20) Labs on day of discharge: Laboratory Results - last 24 hr 08/15/20 14:00 Sodium 133 L Potassium 4.6 Chloride 97 Carbon Dioxide 23 Anion Gap 18 BUN 18 H Creatinine 3.64 H Estim Creat Clear Calc 14.9 Estimated GFR 12 Random Glucose 124 H Calcium 7.4 L Discharge Plan Discharge Patient Disposition: Home Health Service Discharge Diagnosis: Left inguinal hernia Referrals: [facility] [Other] - 1 Day (DISCHARGED HOME WITH RESUMPTION OF YOUR HEMODIALYSIS AT THE [facility] FRIDAY -FRIDAY-SAT 7AM ) [facility] [Outside] - 1 Day (patient to have the [facility] for [facility] come out every other day forsurgical qwound assessment and dresisng chnages, spoke with bedside nurse today she will provide dressing teaching and give patient some supplies, , she will be transferred by the [facility] transportation van ) Vanessa Hu MD [Primary Care Provider] - 1 Week Chele Hyde MD [Physician] - 2 Weeks Discharge Medications: New hydromorphone [Dilaudid] 2 mg tablet 2 mg PO Q4-6H PRN (Reason: pain) Qty: 20 RF: 0 polyethylene glycol 3350 [Miralax] 17 gram/dose powder 17 g PO DAILY PRN (Reason: constipation) Qty: 119 RF: 0 Continued albuterol sulfate [Ventolin HFA] 90 mcg/actuation Hfa Aerosol Inhaler 2 puff INHALATION Q4-6H PRN (Reason: Shortness Of Breath Or Wheezing) RF: 0 venlafaxine 25 mg tablet 1 tab PO DAILY RF: 0 clonazepam 0.5 mg tablet 1 tab PO DAILY PRN (Reason: panic attack) RF: 0 ropinirole 0.5 mg tablet 1 tab PO BEDTIME RF: 0 hydroxyzine HCl 25 mg tablet 1 tab PO BID PRN (Reason: Itching) RF: 0 calcium citrate 200 mg (950 mg) Tablet 400 mg PO USEASDIRECTD RF: 0 cholecalciferol (vitamin D3) 50 mcg (2,000 unit) tablet 1 tab PO DAILY RF: 0 cyclobenzaprine 10 mg Tablet 10 mg PO BID PRN (Reason: Muscle Spasm) RF: 0 ondansetron HCl [Zofran] 4 mg Tablet 4 mg PO Q8H PRN (Reason: Nausea) RF: 0 loperamide 2 mg Tablet 2 mg PO Q4H PRN (Reason: Diarrhea) RF: 0 methyl salicylate-menthol Gel 1 ea TOPICAL DAILY PRN (Reason: Dry Skin) RF: 0 Fluorouracil 5% Topical Cream 1 appl topical DAILY RF: 0 sucralfate 1 gram tablet 1 g PO Q6H PRN (Reason: pain) RF: 0 allopurinol 100 mg tablet 100 mg PO DAILY RF: 0 docusate sodium [DOK] 100 mg capsule 100 mg PO BID PRN (Reason: Constipation) RF: 0 tacrolimus 1 mg capsule 1 mg PO BID RF: 0 sevelamer carbonate 800 mg tablet 1,600 mg PO TIDAC RF: 0 rosuvastatin 10 mg tablet 10 mg PO BEDTIME RF: 0 aspirin 81 mg tablet,delayed release (DR/EC) 81 mg PO QAM RF: 0 famotidine 20 mg tablet 20 mg PO BID RF: 0 folic acid 1 mg tablet 1 mg PO DAILY RF: 0 levothyroxine 25 mcg tablet 25 mcg PO DAILY RF: 0 Discontinued oxycodone 5 mg tablet 1 tab PO BID PRN (Reason: Pain) RF: 0 Discharge Orders: Discharge Order (Routine); Ordered 08/16/20 Ordered By: Chele Hyde Diet: regular diet Activity on Discharge: No heavy lifting Stand Alone Forms: Patient Portal Discharge page Activity Restrictions/Additional Instructions: No lifting > 10 pounds for 4 weeks No driving for one week Ice to the incision x 24 hours Change left inguinal dressing daily Follow up in office in one week. Care Plan Goals: return to previous level of physical activity Health Concerns: ESRD, left inguinal hernia Plan of Treatment: Dressing changes to left groin daily until dry; s/p repair of left inguinal hernia with mesh Assessment: Left inguinal hernia Discharge Date/Time: 08/16/20 13:23
--- NOTE | 2020-08-16 09:07 | HO.PM.IMPN ---
Subjective Subjective Date of Service: 08/17/20 Interval History: Left inguinal incision area pain, hyperkalemia. Review of Systems Patient denies any chest pain or shortness of breath or abdominal pain or fever chills or cough or phlegm. Still has some soreness in inguinal area. Physical Exam Vital Signs: Vital Signs: Last Vital Signs Temp 97.7 F 08/16/20 07:41 Pulse 73 08/16/20 07:41 Resp 21 H 08/16/20 07:41 BP 183/81 H 08/16/20 07:41 Pulse Ox 97 08/16/20 07:41 Body Mass Index 22.8 Constitutional: Not in acute distress Cvs: rrr, [id number] , no murmur res: clear to auscultation ,no rhonchii or wheezing abd: no rebound or guarding ,nt, bs present.left inguinal incision area soreness improving but no discharge . ext pulses present , no cyanosis neuro: axo3 , nonfocal. Objective Data Current Medications Generic Name Dose Route Start Last Admin Trade Name Yuvalq PRN Reason Stop Dose Admin Acetaminophen 650 mg 08/14/20 13:50 08/15/20 20:15 Acetaminophen 325 Mg Tablet PO 650 mg Q6H PRN Administration Pain, Mild (Pain Scale 1-3) Albuterol Sulfate 2 puff 08/14/20 13:50 Albuterol Sulfate 90 Mcg 8 Gm Inhaler INHALE Q4H PRN Shortness Of Breath Or Wheezing Allopurinol 100 mg 08/15/20 09:00 08/15/20 09:38 Allopurinol 100 Mg Tablet PO 100 mg DAILY STACI Administration Aspirin 81 mg 08/14/20 13:50 08/15/20 09:38 Aspirin Enteric Coated 81 Mg Tablet.Dr PO 81 mg DAILY STACI Administration Atorvastatin Calcium 40 mg 08/14/20 21:00 08/15/20 22:27 Atorvastatin Calcium 40 Mg Tablet PO 40 mg BEDTIME STACI Administration Docusate Sodium 100 mg 08/14/20 13:50 Docusate Sodium 100 Mg Capsule PO BID PRN Constipation Famotidine 20 mg 08/14/20 21:00 08/15/20 22:27 Famotidine 20 Mg Tablet PO 20 mg BID STACI Administration Folic Acid 1 mg 08/15/20 09:00 08/15/20 09:38 Folic Acid 1 Mg Tablet PO 1 mg DAILY STACI Administration Hydromorphone HCl 2 mg 08/15/20 16:44 08/16/20 06:36 Hydromorphone Hcl 2 Mg Tablet PO 2 mg Q4H PRN Administration Pain, Severe (Pain Scale 7-10) Hydromorphone HCl 1 mg 08/15/20 16:45 Hydromorphone Hcl 2 Mg Tablet PO Q4H PRN Pain, Moderate (Pain Scale 4-6 Hydroxyzine HCl 25 mg 08/15/20 08:15 08/16/20 06:37 Hydroxyzine Hcl 25 Mg Tablet PO 25 mg Q6H PRN Administration Itching Levothyroxine Sodium 25 mcg 08/15/20 06:00 08/16/20 06:33 Levothyroxine Sodium 25 Mcg Tablet PO 25 mcg DAILY@0600 STACI Administration Ondansetron HCl 4 mg 08/14/20 13:50 08/15/20 07:33 Ondansetron Hcl 4 Mg/2 Ml Vial IVPUSH 4 mg Q8H PRN Administration Nausea and Vomiting Pharmacy Consult 1 each 08/14/20 15:12 Consult Rx Perform Med Rec MISCELLANE ONCE PRN Consult order Polyethylene Glycol 17 gm 08/15/20 15:45 08/15/20 16:39 Polyethylene Glycol 3350 17 Gm Powd.Pack PO 17 gm DAILY STACI Administration Sevelamer HCl 1,600 mg 08/15/20 16:45 08/16/20 07:31 Sevelamer Hcl 800 Mg Tablet PO 1,600 mg TIDAC STACI Administration Sodium Chloride 3 ml 08/14/20 16:00 08/15/20 22:30 0.9 % Sodium Chloride Flush 3 Ml Syringe IVFLUSH 3 ml QSHIFT STACI Administration Sucralfate 1 gm 08/14/20 13:50 08/14/20 22:20 Sucralfate 1 Gm Tablet PO 1 gm Q6H PRN Administration pain Tacrolimus 1 mg 08/14/20 21:00 08/15/20 22:27 Tacrolimus 1 Mg Capsule PO 1 mg BID STACI Administration Temazepam 15 mg 08/14/20 13:50 Temazepam 15 Mg Capsule PO BEDTIME PRN Insomnia Venlafaxine HCl 25 mg 08/15/20 09:00 08/15/20 09:38 Venlafaxine Hcl 25 Mg Tablet PO 25 mg DAILY STACI Administration Labs CBC & Chem 7: 08/08/20 12:40 08/15/20 14:00 Assessment and Plan (1) Hyperkalemia: Problem details: HD TTS, tolerated HD well, ?DC if still inhouse will dialyze on MEGAN her regular day, pls KEEP LOW K diet Status: Acute Assessment and Plan: 61-year-old man admitted by General surgery and status post inguinal hernia repair. 1.Left inguinal hernia repair. -management as per surgical team, oxycodone -pain management bowel regimen -continue colace , miralex Surgery to reeval the plan in afternoon depending on patient's pain. 2.Hyperkalemia. s/p hd -resolved. 3.End-stage renal disease. On dialysis Friday, and Friday -nephrology consultation for dialysis 4.Liver cirrhosis. Status post liver transplant. -continue tacrolimus 5.Hypertension. Eleavted BP. Also secondary to pain -Amlodipine 6.COPD. No exacerbation. -albuterol as needed 7.Hypothyroidism. -continue levothyroxine 8.Depression. -continue home medications DVT prophylaxis as per surgical team Will sign off now please call us for any questions.
[2020-08-16] MEDS: Tacrolimus 1 MG CAPSULE PO (10:30)
[2020-08-16] MEDS: Famotidine 20 MG TABLET PO (10:31)
[2020-08-16] MEDS: Docusate Sodium 100 MG CAPSULE PO (10:31)
[2020-08-16] MEDS: Folic Acid 1 MG TABLET PO (10:31)
[2020-08-16] MEDS: allopurinoL 100 MG TABLET PO (10:31)
[2020-08-16] MEDS: polyethylene glycoL 3350 17 GM POWD.PACK PO (10:31)
[2020-08-16] MEDS: Venlafaxine HCL 25 MG TABLET PO (10:31)
[2020-08-16] MEDS: Aspirin Enteric Coated 81 MG TABLET.DR PO (10:31)
--- NOTE | 2020-08-16 11:36 | MHC.CM.PN ---
Addendum entered by Noemí Blackwell 08/16/20 12:01: [facility] can not go out to services patient qd secondary to her going to hemodialysis 3x weekly (under her medicare this would be double dipping) tiger texted to surgeon and he reported they can go out every other day and patient will be taught by staff nurse how to change the dressing this was acceptable to patient Original Note: nurse adult daycare coordinator note electronic medical record reviewed and case discussed with staff nurse and met with patient , per surgeons she will need daily dressing changes by the vna , updated the [facility] and will check availability [facility] incision site assessment and dressing changes [facility] called to [facility] and faxed discharge summary .labs and dialysis faxed to them [facility] van
[2020-08-16 12:00] VITALS: RESP 18
== END 2020-08-16 13:23 | disposition home health service (06) | DRG 350 ==
LOC: HO.SSSA 09:41 → HO.S3 12:26
PROVIDERS: Internal Medicine; Nurse Practitioner; Admitting Provider Surgery; PCP Pediatrics; Visit Provider Surgery
PROC: 0YU60JZ Supplement Left Inguinal Region with Synthetic Substitute, Open Approach (ICD-10-PCS; CPT 49505; principal; 2020-08-14 10:50)
DX: K40.90 Unilateral inguinal hernia, without obstruction or gangrene, not specified as recurrent (principal); N18.6 End stage renal disease; I12.0 Hypertensive chronic kidney disease with stage 5 chronic kidney disease or end stage renal disease; Z94.4 Liver transplant status; Z94.0 Kidney transplant status; E87.5 Hyperkalemia; Z99.2 Dependence on renal dialysis; J44.9 Chronic obstructive pulmonary disease, unspecified; E03.9 Hypothyroidism, unspecified; F32.9 Major depressive disorder, single episode, unspecified; Z87.891 Personal history of nicotine dependence; Z88.2 Allergy status to sulfonamides; Z79.82 Long term (current) use of aspirin; Z79.890 Hormone replacement therapy; Z79.899 Other long term (current) drug therapy
CPT/HCPCS: 49505; 36415; 80048; 80051; 80053; 85027; 88302; 90999; 93005; 99024; 99232; C1781; J0690; J1100; J1170; J2250; J2405; J3010

== ENCOUNTER → 2020-08-24 15:02 | Outpatient (BNVA) | payer MEDICARE, MEDICAID, SELFPAY | PROVIDERS: PCP Pediatrics; Visit Provider Surgery | DX: Z48.815 Encounter for surgical aftercare following surgery on the digestive system (principal); Z87.19 Personal history of other diseases of the digestive system | CPT/HCPCS: 99212 ==

== ENCOUNTER 2021-02-01 09:35 | Inpatient (IN) | payer MEDICARE, MEDICAID, SELFPAY ==
--- NOTE | ~2021-02-01 | NM_ITS ---
Myocardial perfusion study Indication: Pulmonary edema with calculated performance evaluate for myocardial ischemia Technique: The patient was brought in for a Lexiscan perfusion study on 02/05/2021. Patient performed low-level exercise and was injected 0.4 mg of Lexiscan intravenously. Within a minute of injection, 25 mCi of sestamibi was given intravenously. Images were obtained using the SPECT gamma camera interlaced with the gating device. Images were obtained in supine position. Resting perfusion study was performed on 02/06/2021. Patient was administered 25 mCi of sestamibi intravenously at rest. Images were then obtained in supine position. Images obtained with and without CT attenuation. Total DLP 106 mGy-cm. Images were processed with the software and compared side to side in short axis, horizontal long axis and vertical long axis views. Findings: The stress perfusion study showed nonattenuated images show mildly reduced uptake in the inferolateral wall as well as mildly to moderately reduced uptake in the distal anterior wall of the LV myocardium. Remainder of the LV myocardium is normally perfused. Attenuation corrected images show mildly to moderately reduced uptake in the mid and distal anterior as well as moderately reduced cardiac and mildly reduced uptake in the chest and inferolateral wall of the LV myocardium.. The gated study shows normal LV systolic function with calculated LVEF of 70%. LV cavity is mildly dilated size. The gated study shows normal wall thickening and contraction of segments. Resting study shows nonattenuated images as well as attenuation corrected images. show mostly normal uptake of radiotracer in all segments of LV myocardium Gating at rest reveals normal systolic wall motion with ejection fraction at 67%. The findings are consistent with mild to moderate intensity reversible defect of the mid and distal anterior, apex as well as adjacent anterolateral wall, consistent with ischemia in the LAD territory NM/NM tj perf SPECT rest & str Impression: 1. Myocardial perfusion imaging study shows moderate size mild to moderate intensity LAD territory ischemia 2. Gated LVEF is 57% with stress and 67% with rest 3. Transient ischemic dilatation present EKG is nondiagnostic for ischemia
--- NOTE | ~2021-02-01 | XR_ITS ---
EXAMINATION: XR CHEST CLINICAL INFORMATION: Mental status change. COMPARISON: Chest radiograph dated from 03/08/2020. TECHNIQUE: AP view of the chest was obtained. FINDINGS: New multifocal patchy airspace opacities. No significant pleural effusion or pneumothorax. Stable appearance of the cardiomediastinal silhouette including the presence of an aortic valve and a spinal electrode projecting over the mid thoracic spine. No acute osseous abnormalities. Epigastric surgical clips. XR/XR chest 1V IMPRESSION: New multifocal patchy airspace disease, concerning for multifocal pneumonia. Correlate clinically and follow-up to ensure resolution.
--- NOTE | ~2021-02-01 | CT_ITS ---
EXAMINATION: CT HEAD WITHOUT CONTRAST CLINICAL INFORMATION: Mental status change. COMPARISON: CT head dated from 03/08/2020. TECHNIQUE: Contiguous axial imaging was performed from the skull base to vertex without intravenous administration of contrast. This CT examination was performed using dose optimization techniques as appropriate, variously including the following: *Automated exposure control *Adjustment of mA and/or kV according to patient size (this includes techniques or standardized protocols for targeted exams where dose is matched to indication/reason for exam; i.e. extremities or head) *Use of iterative reconstruction technique DLP: 735 mGy-cm FINDINGS: There is no evidence of acute intracranial hemorrhage or edematous territorial infarction. A few foci of hypoattenuation in the periventricular and deep white matter are consistent with mild microangiopathy. Villa-white matter differentiation is preserved. There is a small chronic lacunar infarct adjacent to the left caudate on image 18 of series 8. There is unchanged prominence of the extra-axial space adjacent to the frontal lobes. No evidence for obstructive hydrocephalus. No abnormal mass effect or midline shift. No extra-axial fluid collections. No acute soft tissue or osseous abnormalities. The mastoid air cells and paranasal sinuses are clear. CT/CT head/brain wo con IMPRESSION: No evidence of acute intracranial hemorrhage or edematous territorial infarction.
--- NOTE | ~2021-02-01 | CT_ITS ---
EXAMINATION: CT ABDOMEN AND PELVIS WITHOUT CONTRAST CLINICAL INFORMATION: Left-sided abdominal tenderness and mental status change. COMPARISON: CT abdomen/pelvis dated from 12/29/2019. CT chest dated from 05/12/2020. TECHNIQUE: Multidetector volumetric imaging was performed from the superior aspect of the liver through the pubic symphysis. Sagittal and coronal reformatted images were obtained on the technologist's workstation. This CT examination was performed using dose optimization techniques as appropriate, variously including the following: *Automated exposure control *Adjustment of mA and/or kV according to patient size (this includes techniques or standardized protocols for targeted exams where dose is matched to indication/reason for exam; i.e. extremities or head) *Use of iterative reconstruction technique DLP: 735 mGy-cm FINDINGS: LUNG BASES: New multifocal patchy airspace opacities with new small bilateral pleural effusions since May. Cardiomegaly with trace amount of pericardial fluid. Aortic valve stent is visualized. There are coronary calcifications. LIVER, GALLBLADDER, AND BILIARY TREE: Postsurgical changes following a liver transplant. The noncontrast liver appears normal in size, tip in attenuation without focal abnormalities. The CBD is dilated up to 1.3 cm which is unchanged since 2019. There is no intrahepatic biliary duct dilatation. PANCREAS: Slightly atrophic without focal abnormalities. The main pancreatic duct is nondilated. There is no significant peripancreatic fat stranding or free fluid. SPLEEN: Unremarkable. ADRENAL GLANDS: Unremarkable. KIDNEYS AND URETERS: Atrophic kidneys with vascular calcifications. There is redemonstration of a 1.4 cm cyst in the lateral surface of the mid pole of the right kidney. Unchanged calcification in the upper pole of the right kidney. No hydronephrosis. There is very mild bilateral perinephric fat stranding, similar to prior. BLADDER: Underdistended limiting evaluation of wall thickening. There is no significant perivesical fat stranding or free fluid. GASTROINTESTINAL TRACT: There is a small hiatal hernia. There are a few prominent loops of small bowel in the left upper abdomen measuring up to 3.3 cm in maximum diameter (image 39 of series 14) and in the right lower quadrant (image 50 of series 14). There is no associated wall thickening or inflammatory changes. The distal colon is under distended which limits assessment of wall thickening. There is extensive colonic diverticulosis but no significant associated inflammatory changes to suspect acute diverticulitis or colitis. There is no bowel obstruction. ABDOMINAL WALL: Architectural distortion in the left inguinal canal (image 78 of series 14) possibly from prior hernia repair without significant hernia recurrence. There is a small fat-containing right inguinal hernia and a small fat-containing umbilical hernia. There is redemonstration of soft tissue thickening with a linear configuration in the right upper abdomen on image 40 of series 14, likely sequela of prior surgery. There is a subtle midline abdominal scar. There is redemonstration of a neurostimulator with lead terminating in the posterior thecal sac at the level of the lower thoracic spine. LYMPH NODES: Evaluation of lymph nodes is limited in the absence of intravenous contrast and decreased intra-abdominal fat. Accounting for these limitations, no bulky lymphadenopathy is identified. VASCULAR: Extensive atherosclerotic disease of the abdominal aorta and its major branches. The abdominal aorta is of normal caliber. There is redemonstration of several prominent vascular collaterals and varicosities in the left retroperitoneum suggesting portal hypertension. PELVIC VISCERA: Unremarkable. OSSEOUS STRUCTURES: L5 vertebroplasty/kyphoplasty cement is redemonstrated. Stable compression deformities at T11, L1, and L3. No acute or aggressive osseous abnormalities. Degenerative changes in both hips. Unchanged sclerotic bony lesion in the left sacrum on image [address]/CT abdomen pelvis wo con IMPRESSION: Chest: Multifocal patchy opacities and small bilateral pleural effusions, new since May and worrisome for a multifocal infection. Correlate clinically and follow-up to ensure resolution. Abdomen/pelvis: There are a few prominent loops of small bowel of uncertain significance in the absence of associated wall thickening or inflammatory changes. This could be seen in the setting of gastroenteritis or segmental ileus. Less likely, very early and partial small bowel obstruction. There is extensive diverticulosis of the sigmoid colon without significant associated inflammatory changes to suspect acute diverticulitis. Other chronic findings are detailed in the body of the report.
[2021-02-01 09:50] VITALS: BP 180/100; BP 187/100; PULSE 105; PULSE 110; RESP 28; TEMP 37.1; O2SAT 88; O2SAT 95; BMI 25.6
--- NOTE | 2021-02-01 09:56 | ECG_ITS ---
Test Reason : mental status change Blood Pressure : / mmHG Vent. Rate : 102 BPM Atrial Rate : 102 BPM P-R Int : 200 ms QRS Dur : 140 ms QT Int : 368 ms P-R-T Axes : 000 -25 103 degrees QTc Int : 479 ms Sinus tachycardia Left anterior fascicular block Non-specific intra-ventricular conduction block Minimal voltage criteria for LVH, may be normal variant ( [place] product ) T wave abnormality, consider lateral ischemia Abnormal ECG QRS duration has increased Heart rate has increased Left anterior fascicular block is new Referred By: Hamzah Tomlinson Electronically Signed By:SAVITA ORDOÑEZ MD
--- NOTE | 2021-02-01 10:00 | ED.GENADULT ---
HPI - General Adult General Chief complaint: Weakness Stated complaint: AMS Time Seen by Provider: 02/01/21 09:55 Source: patient Mode of arrival: ambulatory Limitations: altered mental status History of Present Illness HPI narrative: 70-year-old female on hemodialysis, patient did not show for dialysis this sent EMS stir house patient found in bed with change mental status, patient decline headache, or chest pain, or abdominal pain, or fever, or chills. Patient found to be satting at 88% on room air, with tachypnea patient declined any abdominal pain, but found to have left lower quadrant tenderness without rebound tenderness. Related Data Home Medications Medication Instructions Recorded Confirmed aspirin 81 mg tablet,delayed 81 mg PO QAM 01/26/20 08/07/20 release famotidine 20 mg tablet 20 mg PO BID 01/26/20 08/14/20 folic acid 1 mg tablet 1 mg PO DAILY 01/26/20 08/07/20 levothyroxine 25 mcg tablet 25 mcg PO DAILY 01/26/20 08/14/20 rosuvastatin 10 mg tablet 10 mg PO BEDTIME 01/26/20 08/07/20 allopurinol 100 mg tablet 100 mg PO DAILY 03/08/20 08/07/20 docusate sodium 100 mg capsule 100 mg PO BID PRN 03/08/20 08/07/20 (DOK) sevelamer carbonate 800 mg tablet 1,600 mg PO TIDAC 03/08/20 08/07/20 sucralfate 1 gram tablet 1 g PO Q6H PRN 03/08/20 08/07/20 tacrolimus 1 mg capsule, 1 mg PO BID 03/08/20 08/14/20 immediate-release albuterol sulfate 90 mcg/actuation 2 puff INHALATION Q4-6H PRN 08/07/20 08/07/20 aerosol inhaler (Ventolin HFA) Fluorouracil 5% Topical Cream 1 appl TOPICAL DAILY 08/14/20 08/14/20 calcium citrate 200 mg (950 mg) 400 mg PO USEASDIRECTD 08/14/20 08/14/20 tablet cholecalciferol (vitamin D3) 50 1 tab PO DAILY 08/14/20 08/14/20 mcg (2,000 unit) tablet clonazepam 0.5 mg tablet 1 tab PO DAILY PRN 08/14/20 08/14/20 cyclobenzaprine 10 mg tablet 10 mg PO BID PRN 08/14/20 08/14/20 hydroxyzine HCl 25 mg tablet 1 tab PO BID PRN 08/14/20 08/14/20 loperamide 2 mg tablet 2 mg PO Q4H PRN 08/14/20 08/14/20 methyl salicylate-menthol topical 1 ea TOPICAL DAILY PRN 08/14/20 08/14/20 gel ondansetron HCl 4 mg tablet 4 mg PO Q8H PRN 08/14/20 08/14/20 (Zofran) ropinirole 0.5 mg tablet 1 tab PO BEDTIME 08/14/20 08/14/20 venlafaxine 25 mg tablet 1 tab PO DAILY 08/14/20 08/14/20 Previous Rx's Medication Instructions Recorded hydromorphone 2 mg tablet 2 mg PO Q4-6H PRN #20 tab 08/16/20 (Dilaudid) polyethylene glycol 3350 17 17 g PO DAILY PRN #119 g 08/16/20 gram/dose oral powder (Miralax) Allergies Allergy/AdvReac Type Severity Reaction Status Date / Time Sulfa (Sulfonamide Allergy Intermediate HIVES Verified 08/14/20 10:44 Antibiotics) Heparin Analogues Allergy Unknown UNKNOWN Verified 08/14/20 10:44 [Heparin Agents] verapamil Allergy Unknown unknown Verified 08/14/20 10:44 Review of Systems Review of Systems: All other systems are reviewed and are negative Constitutional: Reports as per HPI and Reports no additional constitutional complaints Eyes: Reports as per HPI and Reports no additional eye complaints Reports system reviewed and no additional complaints, except as documented Cardiovascular: Reports as per HPI and Reports no additional cardiovascular complaints Respiratory: Reports as per HPI and Reports no additional respiratory complaints Gastrointestinal: Reports as per HPI and Reports no additional gastrointestinal complaints Genitourinary: Reports no additional female genitourinary complaints Musculoskeletal: Reports no additional musculoskeletal complaints Skin/Breast: Reports system reviewed and no additional complaints, except as docu Psychiatric: Reports no additional psychiatric complaints Endocrine: Reports no additional endocrine complaints Hematologic/Lymphatic: Reports no additional hematologic/lymphatic complaints Allergic/Immunologic: Reports no additional allergic/immunologic complaints Reports system reviewed and no additional complaints, except as documented and Reports Abnormal speech present [facility] Past Medical History Medical History Anemia Anxiety and depression Arthritis Asthma AV fistula Bronchitis Cirrhosis COPD (chronic obstructive pulmonary disease) Coronary artery disease COVID-19 vaccine series completed DJD (degenerative joint disease) of thoracic spine End-stage renal disease (ESRD) GERD (gastroesophageal reflux disease) Gout Hemodialysis patient History of blood transfusion History of transcatheter aortic valve replacement (TAVR) Hyperkalemia Left inguinal hernia Murmur Neuropathy Patient on waiting list for kidney transplant Surgical History History of liver transplant History of surgery on arm Hx of colonoscopy Social History Social History Household Members: None Housing: House Are you a primary animal caretaker supervisor to a significant other at home: No Do you presently have visiting nurse or other home services: Yes ([facility]-help with light housekeeping,laundry) Alcohol intake: former Year quit: 2008 Advance Directives: Yes Advance Directives on File: Yes Advance Directives Date on File: 03/08/20 service: No Current occupational status: retired Physical Exam Vital Signs: Vital Signs: Last Vital Signs Temp 98.8 F 02/01/21 09:50 Pulse 105 H 02/01/21 09:50 Resp 28 H 02/01/21 09:50 BP 187/100 H 02/01/21 09:50 Pulse Ox 88 L 02/01/21 09:50 Body Mass Index 25.6 Vital signs have been reviewed as appeared to be correct. Blood pressure elevated. Heart rate elevated. Respiration rate normal. Temperature normal. Oxygen saturation normal. Appearance: Alert. No acute distress. Head: Normal external exam. Normocephalic. Atraumatic. No Blankenship signs noted. No raccoon eyes noted Eyes: PERRLA. EOMI. Conjunctiva and sclera normal. Eyelids normal. ENT: TM's Normal. Pharynx normal. Uvula midline. Moist mucous membranes. No trismus noted. No drooling noted. No muffled voice noted. Neck: Normal inspection. Neck supple. FROM. No adenopathy. Thyroid Normal. No meningeal signs. No neck mass noted. CVS: Normal heart rate and rhythm. Heart sound normal. No murmurs noted. Pulses normal throughout. Respiratory: No respiratory distress. Painless inspiration. Breath sounds normal. No wheezes/rales/rhonchi noted. Chest nontender. No accessory muscle usage noted or decreased air movement noted. Abdomen: Soft and nontender. Bowel sounds normal in all 4 quadrants. No distention noted. No organomegaly noted. No visible injury noted. Back: No CVA tenderness. Full range of motion noted. Skin: Skin warm and dry. Normal skin color. Normal skin turgor. No rashes/lesions/lacerations noted. Extremities: No lower extremity edema. Extremities exhibit normal range of motion. Extremities nontender. Neuro:. Cranial nerve exam: II-XII are grossly intact No motor deficit. No sensory deficit. Reflexes normal. Course Course Course Narrative: Assessment and plan: 70-year-old female with end-stage renal disease on dialysis, patient did not show up for dialysis EMS were sent home and found to be in mental status change, workup is consistent with community-acquired pneumonia with SIRS meeting criteria, will gentle hydration, start on antibiotic, case discussed with Juma from renal will admit the patient for inpatient dialysis. Medical Decision Making Medical Records Medical records reviewed: Yes I reviewed the patient's medical records. Lab Data Lab results reviewed: Yes I reviewed the patient's lab results. Result diagrams: 02/01/21 10:11 02/01/21 10:11 Labs: Lab Results 02/01/21 02/01/21 02/01/21 Range/Units 10:10 10:11 10:11 WBC 14.0 H (4.8-10.8) X10*3/uL RBC 3.80 L (4.20-5.50) X10*6/uL Hgb 11.5 L (12.0-16.0) g/dl Hct 34.9 L (37.0-47.0) % MCV 91.8 (80.0-98.0) fL MCH 30.3 (27.0-33.0) pg MCHC 33.0 (31.0-35.0) g/dl RDW 14.9 (11.0-16.0) % Plt Count 144 L (160-400) X10*3/uL MPV 9.9 (9.4-12.3) fL Immature Gran % (Auto) 0.4 (0.0-0.4) % Neut % (Auto) 83.2 H (45-73) % Lymph % (Auto) 9.7 L (20-40) % [place] % (Auto) 6.1 (2-11) % Eos % (Auto) 0.2 (0-4) % Baso % (Auto) 0.4 (0-2) % Lymph # (Auto) 1.4 (1.2-4.9) X10*3/uL [place] # (Auto) 0.9 (0.1-1.2) X10*3/uL Eos # (Auto) 0.0 (0.0-0.4) X10*3/uL Baso # (Auto) 0.1 (0.0-0.2) X10*3/uL Abs Immat Gran (auto) 0.06 H (0.00-0.03) X10*3/uL Absolute Neuts (auto) 11.67 H (2.0-8.3) x10*3/uL Absolute Nucleated RBC 0.000 (0.0-0.012) X10*3/uL Nucleated RBC % (auto) 0.0 (0.0-0.2) /100WBC Sodium 135 (135-145) mmol/L Potassium 7.8 H* D (3.3-5.1) mmol/L Chloride 98 (96-108) mmol/L Carbon Dioxide 19 L (22-29) mmol/L Anion Gap 26 H (12-20) BUN 92 H* D (9-16) mg/dL Creatinine 12.65 H* (0.5-1.4) mg/dL Estim Creat Clear Calc 4.3 Estimated GFR 3 Random Glucose 81 (60-115) mg/dL Lactic Acid (0.5-2.0) mmol/L Calcium 9.5 D (8.4-10.2) mg/dL Total Bilirubin 0.5 (0.0-1.0) mg/dL Direct Bilirubin 0.3 (0.0-0.5) mg/dL AST 21 (5-31) U/L ALT 15 (0-31) U/L Alkaline Phosphatase 80 D (39-117) U/L Troponin I High Sens (<3.5-17.0) ng/L B-Natriuretic Peptide 8241 H (<100) pg/mL Total Protein 6.3 L (6.5-8.0) g/dL Albumin 3.5 (3.5-5.0) g/dL Lipase 29 (8-78) U/L COVID-19 ([facility]) (Negative) COVID-19 Clin Com 02/01/21 02/01/21 02/01/21 Range/Units 10:11 10:11 10:19 WBC (4.8-10.8) X10*3/uL RBC (4.20-5.50) X10*6/uL Hgb (12.0-16.0) g/dl Hct (37.0-47.0) % MCV (80.0-98.0) fL MCH (27.0-33.0) pg MCHC (31.0-35.0) g/dl RDW (11.0-16.0) % Plt Count (160-400) X10*3/uL MPV (9.4-12.3) fL Immature Gran % (Auto) (0.0-0.4) % Neut % (Auto) (45-73) % Lymph % (Auto) (20-40) % [place] % (Auto) (2-11) % Eos % (Auto) (0-4) % Baso % (Auto) (0-2) % Lymph # (Auto) (1.2-4.9) X10*3/uL [place] # (Auto) (0.1-1.2) X10*3/uL Eos # (Auto) (0.0-0.4) X10*3/uL Baso # (Auto) (0.0-0.2) X10*3/uL Abs Immat Gran (auto) (0.00-0.03) X10*3/uL Absolute Neuts (auto) (2.0-8.3) x10*3/uL Absolute Nucleated RBC (0.0-0.012) X10*3/uL Nucleated RBC % (auto) (0.0-0.2) /100WBC Sodium (135-145) mmol/L Potassium (3.3-5.1) mmol/L Chloride (96-108) mmol/L Carbon Dioxide (22-29) mmol/L Anion Gap (12-20) BUN (9-16) mg/dL Creatinine (0.5-1.4) mg/dL Estim Creat Clear Calc Estimated GFR Random Glucose (60-115) mg/dL Lactic Acid 1.5 (0.5-2.0) mmol/L Calcium (8.4-10.2) mg/dL Total Bilirubin (0.0-1.0) mg/dL Direct Bilirubin (0.0-0.5) mg/dL AST (5-31) U/L ALT (0-31) U/L Alkaline Phosphatase (39-117) U/L Troponin I High Sens 680.1 H* (<3.5-17.0) ng/L B-Natriuretic Peptide (<100) pg/mL Total Protein (6.5-8.0) g/dL Albumin (3.5-5.0) g/dL Lipase (8-78) U/L COVID-19 ([facility]) Negative (Negative) COVID-19 Clin Com See Note Imaging Data Chest x-ray: Radiologist's impression: New multifocal patchy airspace disease, concerning for multifocal pneumonia. Correlate clinically and follow-up to ensure resolution. ? CT scan - head: Radiologist's impression: No evidence of acute intracranial hemorrhage or edematous territorial infarction. CT scan - abdomen: Radiologist's impression: Chest: Multifocal patchy opacities and small bilateral pleural effusions, new since May and worrisome for a multifocal infection. Correlate clinically and follow-up to ensure resolution. ? Abdomen/pelvis: There are a few prominent loops of small bowel of uncertain significance in the absence of associated wall thickening or inflammatory changes. This could be seen in the setting of gastroenteritis or segmental ileus. Less likely, very early and partial small bowel obstruction. ? There is extensive diverticulosis of the sigmoid colon without significant associated inflammatory changes to suspect acute diverticulitis. ? ECG Data Attestation: I personally reviewed and interpreted this ECG as follows: Interpretation: Sinus tachycardia at 1 2 beats per minutes, left axis deviation, LVH. Critical Care Time Critical Care Time Critical Care Time: Yes Total Critical Care Time: 60 Attestation: I spent 60 minutes providing critical care service to the patient, this including time spent at the bedside to evaluate the patient, reassess the patient, monitoring vital signs, review labs, and radiographic studies, counseling the patient/family, discussing the case with consultants, disposition the patient. Discharge Plan Discharge Clinical Impression: End-stage renal disease (ESRD), AMS (altered mental status), Acute hyperkalemia, Pneumonia Patient Disposition: Admitted As Inpatient
[2021-02-01 10:16] LABS: MANUAL DIFF FLAG NO
[2021-02-01 10:17] LABS: Basophils Absolute Auto 0.1 X10*3/uL (0.0-0.2); Basophils Percent Auto 0.4 % (0-2); Eosinophils Percent Auto 0.2 % (0-4); Hematocrit 34.9 % (37.0-47.0); Hemoglobin 11.5 g/dl (12.0-16.0); Imm Gran Abs Auto 0.06 X10*3/uL (0.00-0.03); Imm Gran Pct Auto 0.4 % (0.0-0.4); Lymphocytes Absolute Auto 1.4 X10*3/uL (1.2-4.9); Lymphocytes Percent Auto 9.7 % (20-40); Mean Corpuscular Hemoglobin 30.3 pg (27.0-33.0); Mean Corpuscular Volume 91.8 fL (80.0-98.0); Mean Platelet Volume 9.9 fL (9.4-12.3); Monocytes Absolute Auto 0.9 X10*3/uL (0.1-1.2); Monocytes Percent Auto 6.1 % (2-11); Neutrophils Absolute Auto 11.67 x10*3/uL (2.0-8.3); Neutrophils Percent Auto 83.2 % (45-73); Platelet Count 144 X10*3/uL (160-400); Red Cell Distribution Width 14.9 % (11.0-16.0)
--- NOTE | 2021-02-01 10:27 | PC.NURSE ---
labs drawn, iv placed, cxr completed at bedside, awaiting ct scan. pt continues to yell no no no when being told that blood work and imaging will be ordered and started. when asked why pt saying no by this rn, pt continues to just say no no no . [facility] for dc needs.
[2021-02-01 10:28] LABS: Lactic Acid 1.5 mmol/L (0.5-2.0)
[2021-02-01 10:42] LABS: COVID-19 Test Negative (Negative)
[2021-02-01 10:50] LABS: Troponin-I High Sensitivity 680.1 ng/L (<3.5-17.0)
[2021-02-01 10:51] LABS: Alanine Aminotransferase 15 U/L (0-31); Albumin Level 3.5 g/dL (3.5-5.0); Alkaline Phosphatase 80 U/L (39-117); Anion Gap 26 (12-20); Aspartate Amino Transferase 21 U/L (5-31); Bilirubin Direct 0.3 mg/dL (0.0-0.5); Bilirubin Total 0.5 mg/dL (0.0-1.0); Blood Urea Nitrogen 92 mg/dL (9-16); Calcium 9.5 mg/dL (8.4-10.2); Carbon Dioxide 19 mmol/L (22-29); Chloride 98 mmol/L (96-108); Creatinine Clr Calc Pharmacy 4.3; Estimated Glomerular Filt Rate 3; Glucose Random 81 mg/dL (60-115); Lipase 29 U/L (8-78); Potassium 7.8 mmol/L (3.3-5.1); Sodium 135 mmol/L (135-145); Total Protein 6.3 g/dL (6.5-8.0)
[2021-02-01 11:05] LABS: B Type Natriuretic Peptide 8241 pg/mL (<100)
[2021-02-01] MEDS: cefTRIAXone sodium 1 GM in 0.9 % Sodium Chloride 50 ML IV (11:12)
[2021-02-01] MEDS: 0.9 % Sodium Chloride 1,000 ML 500 ML IVCONT (11:12)
[2021-02-01] MEDS: Calcium Gluconate/NaCl,Iso-Osm 1 GM/50 ML PLAST..BAG IV (12:01)
[2021-02-01] MEDS: Sodium Bicarbonate 8.4% 50 MEQ/50 ML VIAL IVPUSH (12:01)
[2021-02-01] MEDS: Azithromycin 500 MG in 0.9 % Sodium Chloride 250 ML 125 MG IV (12:01)
[2021-02-01] MEDS: Sodium Polystyrene Sulfon/Sorb 15 GM/60 ML ORAL.SUSP 30 GM PO (12:02)
--- NOTE | 2021-02-01 12:33 | P.HPHOSP_ITS ---
History of Present Illness Date of Service: 02/01/21 <CHUCKY Weinstein - Last Filed: 02/01/21 13:56> Attending physician on admission: Juancho Henriquez <CHUCKY Weinstein - Last Filed: 02/01/21 13:56> Chief Complaint: AMS <CHUCKY Weinstein - Last Filed: 02/01/21 13:56> This is a 70-year-old female with history of ESRD was brought to the emergency department due to altered mental status. History was primarily obtained from her sister at the bedside as the patient is confused and unable to provide any significant history. She reportedly did not go to dialysis on Friday, the reason is unclear. She went to visit her son yesterday and he called the patient's sister saying that something was not right with her. Today she did not show up to dialysis again and EMS was sent for a wellness check. She was found in bed and confused. She was brought to the hospital for further evaluation. Found to be hypoxic with an oxygen saturation of 88% on room air chest x-ray showed concern over multifocal pneumonia. She was started on IV antibiotics brain CT showed no acute abnormalities. Lab work showed elevated potassium at 7.8. She received calcium glucagon, Kayexalate and sodium bicarbonate. <CHUCKY Weinstein - Last Filed: 02/01/21 13:56> Review of Systems Neurologic: Reports confusion <CHUCKY Weinstein - Last Filed: 02/01/21 13:56> Psychiatric: Psychiatric: Reports confusion <CHUCKY Weinstein - Last Filed: 02/01/21 13:56> [facility] Medical History: Medical History Anemia Anxiety and depression Arthritis Asthma AV fistula Bronchitis Cirrhosis COPD (chronic obstructive pulmonary disease) Coronary artery disease COVID-19 vaccine series completed DJD (degenerative joint disease) of thoracic spine End-stage renal disease (ESRD) GERD (gastroesophageal reflux disease) Gout Hemodialysis patient History of blood transfusion History of transcatheter aortic valve replacement (TAVR) Hyperkalemia Left inguinal hernia Murmur Neuropathy Patient on waiting list for kidney transplant <CHUCKY Weinstein Last Filed: 02/01/21 13:56> Functional capacity: uses cane/walker <CHUCKY Weinstein - Last Filed: 02/01/21 13:56> Pertinent family history: no known h/o cad <CUHCKY Weinstein - Last Filed: 02/01/21 13:56> Surgical History: Surgical History History of liver transplant History of surgery on arm Hx of colonoscopy <CHUCKY Weinstein - Last Filed: 02/01/21 13:56> Social History: Social History Household Members: Unknown / Unable to assess Housing: Unknown / Unable to assess Are you a primary family day care provider to a significant other at home: No Unable to assess alcohol history related to: Unable to respond Alcohol intake: former Year quit: 2008 Patient Tobacco Use Status: Tobacco use Unknown Use of substances other than those prescribed or required for medical reasons: Unable to respond Advance Directives: Yes Advance Directives on File: Yes Advance Directives Date on File: 03/08/20 Recently lost weight without trying: Unsure Patient : No : No Poor oral hygiene: Yes (Upper dentures. No bottom teeth or dentures. Mouth dry.) service: No Current occupational status: retired <CHUCKY Weinstein - Last Filed: 02/01/21 13:56> Meds Allergies/Adverse reactions: Allergies Allergy/AdvReac Type Severity Reaction Status Date / Time Sulfa (Sulfonamide Allergy Intermediate HIVES Verified 08/14/20 10:44 Antibiotics) Heparin Analogues Allergy Unknown UNKNOWN Verified 08/14/20 10:44 [Heparin Agents] verapamil Allergy Unknown unknown Verified 08/14/20 10:44 <CHUCKY Weinstein - Last Filed: 02/01/21 13:56> Active Medications: Current Medications Acetaminophen (Acetaminophen 325 Mg Tablet) 650 mg PO Q6H PRN PRN Reason: Pain, Mild (Pain Scale 1-3) Docusate Sodium (Docusate Sodium 100 Mg Capsule) 100 mg PO DAILY PRN PRN Reason: Constipation Azithromycin 500 mg/ Sodium (Chloride) 250 mls @ 125 mls/hr IV ONCE ONE Stop: 02/01/21 12:58 Last Admin: 02/01/21 12:01 Dose: 125 mls/hr Documented by: Sodium Chloride (Ns) 1,000 mls @ 500 mls/hr IVCONT .Q2H STACI Stop: 02/01/21 12:59 Last Admin: 02/01/21 11:12 Dose: 500 mls/hr Documented by: Ceftriaxone Sodium 1 gm/ (Sodium Chloride) 50 mls @ 100 mls/hr IV Q24H STACI Doxycycline Hyclate 100 mg/ (Sodium Chloride) 250 mls @ 166.67 mls/hr IV Q12H STACI Ondansetron HCl (Ondansetron Hcl 4 Mg/2 Ml Vial) 4 mg IVPUSH Q8H PRN PRN Reason: Nausea and Vomiting Pharmacy Consult (Consult Rx Perform Med Rec) 1 each MISCELLANE ONCE PRN PRN Reason: Consult order Sodium Chloride (0.9 % Sodium Chloride Flush 3 Ml Syringe) 3 ml IVFLUSH QSHIFT [facility] <CHUCKY Weinstein - Last Filed: 02/01/21 13:56> Home medications: Home Medications Medication Instructions Recorded Confirmed Last Taken Type aspirin 81 mg tablet,delayed 81 mg PO QAM 01/26/20 02/01/21 08/13/20 History release famotidine 20 mg tablet 20 mg PO DAILY 01/26/20 02/01/21 08/14/20 09:00 History folic acid 1 mg tablet 1 mg PO DAILY 01/26/20 02/01/21 08/13/20 History rosuvastatin 10 mg tablet 10 mg PO BEDTIME 01/26/20 02/01/21 08/13/20 History allopurinol 100 mg tablet 100 mg PO DAILY 03/08/20 02/01/21 08/13/20 History docusate sodium 100 mg capsule 100 mg PO BID PRN 03/08/20 02/01/21 Unknown History (DOK) tacrolimus 1 mg capsule, 1 mg PO BID 03/08/20 02/01/21 08/14/20 09:00 History immediate-release albuterol sulfate 90 mcg/actuation 2 puff INHALATION Q4-6H PRN 08/07/20 02/01/21 Unknown History aerosol inhaler (Ventolin HFA) calcium citrate 200 mg (950 mg) 400 mg PO USEASDIRECTD 08/14/20 02/01/21 Unknown History tablet cholecalciferol (vitamin D3) 50 1 tab PO DAILY 08/14/20 02/01/21 08/13/20 History mcg (2,000 unit) tablet clonazepam 0.5 mg tablet 1 tab PO DAILY PRN 08/14/20 02/01/21 Unknown History hydroxyzine HCl 25 mg tablet 1 tab PO TID PRN 08/14/20 02/01/21 Unknown History ondansetron HCl 4 mg tablet 4 mg PO Q8H PRN 08/14/20 02/01/21 Unknown History (Zofran) ropinirole 0.5 mg tablet 1 tab PO BEDTIME 08/14/20 02/01/21 08/13/20 History venlafaxine 25 mg tablet 1 tab PO DAILY 08/14/20 02/01/21 08/14/20 History famotidine 20 mg tablet 1 tab PO BEDTIME PRN 02/01/21 02/01/21 Unknown History levothyroxine 100 mcg tablet 1 tab PO DAILY 02/01/21 02/01/21 Unknown History oxycodone 5 mg tablet 1 tab PO BID PRN 02/01/21 02/01/21 Unknown History <CHUCKY Weinstein - Last Filed: 02/01/21 13:56> Physical Exam Vital Signs and Narrative: Vital Signs: Last Vital Signs Temp 98.8 F 02/01/21 09:50 Pulse 105 H 02/01/21 09:50 Resp 28 H 02/01/21 09:50 BP 187/100 H 02/01/21 09:50 Pulse Ox 88 L 02/01/21 09:50 Body Mass Index 25.6 <CHUCKY Weinstein - Last Filed: 02/01/21 13:56> Const: General: alert, awake and confusion <CHUCKY Weinstein Last Filed: 02/01/21 13:56> Nutritional Appearance: well nourished <CHUCKY Weinstein Last Filed: 02/01/21 13:56> Orientation/consciousness: oriented to person and confusion <CHUCKY Weinstein Last Filed: 02/01/21 13:56> HENMT: Other: dry mucous membranes <CHUCKY Weinstein Last Filed: 02/01/21 13:56> Head: Yes normocephalic and Yes atraumatic <CHUCKY Weinstein - Last Filed: 02/01/21 13:56> Eyes: Sclerae: sclerae normal <CHUCKY Weinstein - Last Filed: 02/01/21 13:56> Pupils: Equal, round and reactive pupils present <CHUCKY Weinstein - Last Filed: 02/01/21 13:56> Resp: Effort & Inspection: normal respiratory effort and no respiratory distress <CHUCKY Weinstein - Last Filed: 02/01/21 13:56> Cardio: Rate: regular rate <CHUCKY Weinstein - Last Filed: 02/01/21 13:56> Rhythm: regular rhythm <CHUCKY Weinstein - Last Filed: 02/01/21 13:56> GI: Palpation (GI): Soft to palpation and nontender <CHUCKY Weinstein - Last Filed: 02/01/21 13:56> Neuro: General: oriented to person and confusion <CHUCKY Weinstein - Last Filed: 02/01/21 13:56> Cranial nerves: Yes CN's II-XII intact bilaterally, Yes Equal, round and reactive pupils present and Yes Bilaterally intact EOM present <CHUCKY Weinstein - Last Filed: 02/01/21 13:56> Extrem: Other: no leg edema <CHUCKY Weinstein - Last Filed: 02/01/21 13:56> Results Labs CBC and Chem 7: : 02/02/21 05:54 02/02/21 05:54 <CHUCKY Weinstein - Last Filed: 02/01/21 13:56> Labs: Laboratory Results - last 24 hr 02/01/21 02/01/21 02/01/21 10:10 10:11 10:11 MCV 91.8 MCH 30.3 MCHC 33.0 RDW 14.9 Plt Count 144 L MPV 9.9 Immature Gran % (Auto) 0.4 Neut % (Auto) 83.2 H Lymph % (Auto) 9.7 L [place] % (Auto) 6.1 Eos % (Auto) 0.2 Baso % (Auto) 0.4 Lymph # (Auto) 1.4 [place] # (Auto) 0.9 Eos # (Auto) 0.0 Baso # (Auto) 0.1 Abs Immat Gran (auto) 0.06 H Absolute Neuts (auto) 11.67 H Absolute Nucleated RBC 0.000 Nucleated RBC % (auto) 0.0 Anion Gap 26 H Estim Creat Clear Calc 4.3 Estimated GFR 3 Random Glucose 81 Lactic Acid Calcium 9.5 D Total Bilirubin 0.5 Direct Bilirubin 0.3 AST 21 ALT 15 Alkaline Phosphatase 80 D Troponin I High Sens B-Natriuretic Peptide 8241 H Total Protein 6.3 L Albumin 3.5 Lipase 29 COVID-19 ([facility]) COVID-19 Clin Com 02/01/21 02/01/21 02/01/21 10:11 10:11 10:19 MCV MCH MCHC RDW Plt Count MPV Immature Gran % (Auto) Neut % (Auto) Lymph % (Auto) [place] % (Auto) Eos % (Auto) Baso % (Auto) Lymph # (Auto) [place] # (Auto) Eos # (Auto) Baso # (Auto) Abs Immat Gran (auto) Absolute Neuts (auto) Absolute Nucleated RBC Nucleated RBC % (auto) Anion Gap Estim Creat Clear Calc Estimated GFR Random Glucose Lactic Acid 1.5 Calcium Total Bilirubin Direct Bilirubin AST ALT Alkaline Phosphatase Troponin I High Sens 680.1 H* B-Natriuretic Peptide Total Protein Albumin Lipase COVID-19 ([facility]) Negative COVID-19 Clin Com See Note <CHUCKY Weinstein - Last Filed: 02/01/21 13:56> Imaging Radiologist's Impressions: Impressions Abdomen/Pelvis CT 02/01/21 09:55 IMPRESSION: Chest: Multifocal patchy opacities and small bilateral pleural effusions, new since May and worrisome for a multifocal infection. Correlate clinically and follow-up to ensure resolution. Abdomen/pelvis: There are a few prominent loops of small bowel of uncertain significance in the absence of associated wall thickening or inflammatory changes. This could be seen in the setting of gastroenteritis or segmental ileus. Less likely, very early and partial small bowel obstruction. There is extensive diverticulosis of the sigmoid colon without significant associated inflammatory changes to suspect acute diverticulitis. Other chronic findings are detailed in the body of the report. Chest X-Ray 02/01/21 09:56 IMPRESSION: New multifocal patchy airspace disease, concerning for multifocal pneumonia. Correlate clinically and follow-up to ensure resolution. Head CT 02/01/21 09:57 IMPRESSION: No evidence of acute intracranial hemorrhage or edematous territorial infarction. <CHUCKY Weinstien - Last Filed: 02/01/21 13:56> Assessment and Plan (1) Acute hyperkalemia: Status: Acute <CHUCKY Weinstein - Last Filed: 02/01/21 13:56> (2) Pneumonia: Status: Acute <CHUCKY Weinstein - Last Filed: 02/01/21 13:56> (3) AMS (altered mental status): Status: Acute <CHUCKY Weinstein - Last Filed: 02/01/21 13:56> This is a 70-year-old female with history of ESRD on hemodialysis brought to the emergency department and found to have altered mental status, pneumonia and hyperkalemia Hyperkalemia In the setting of missing dialysis Status post calcium gluconate, Kayexalate, sodium bicarb in the ED Urgent dialysis planned Repeat BMP this afternoon Metabolic encephalopathy Likely secondary to uremia/hyperkalemia Brain CT negative, no focal neurological deficits Should improve with dialysis Acute respiratory failure with hypoxia Oxygen saturation eat 88% on room air Likely multifactorial related to pulmonary edema from missing dialysis as well as pneumonia Continue supplemental oxygen as needed ESRD on HD , , missed HD Friday urgent HD for hyperkalemia, AMS Multifocal pneumonia Continue IV antibiotics Follow blood cultures Elevated troponin Likely related to ESRD Will trend Med rec pending at this time dvt ppx - allergic to heparin analogs, compression device HCP-sister Wendy Bella [phone] Code status-full code <CHUCKY Weinstein - Last Filed: 02/01/21 13:56> This is a 70-year-old female with history of ESRD on hemodialysis brought to the emergency department and found to have altered mental status, pneumonia and hyperkalemia Hyperkalemia In the setting of missing dialysis Status post calcium gluconate, Kayexalate, sodium bicarb in the ED Urgent dialysis planned Repeat BMP this afternoon Metabolic encephalopathy Likely secondary to uremia/hyperkalemia Brain CT negative, no focal neurological deficits Should improve with dialysis Acute respiratory failure with hypoxia Oxygen saturation eat 88% on room air Likely multifactorial related to pulmonary edema from missing dialysis as well as pneumonia Continue supplemental oxygen as needed ESRD on HD , , Sa missed HD Friday urgent HD for hyperkalemia, AMS Multifocal pneumonia Continue IV antibiotics Follow blood cultures Elevated troponin Likely related to ESRD Will trend Med rec pending at this time dvt ppx - allergic to heparin analogs, compression device HCP-sister Wendy Bella [phone] Code status-full code I saw and examined and participate in mittal portion of E/M service, I agree with a/p, findings as documented by midlevel provider above--T. Mlsarah <Juancho Henriquez MD - Last Filed: 02/02/21 11:08> Quality Stroke Does the patient have a stroke diagnosis?: No <CHUCKY Weinstein - Last Filed: 02/01/21 13:56> VTE Prior VTE?: No <CHUCKY Weinstein - Last Filed: 02/01/21 13:56> VTE Risk Level:: Medical - moderate - high <CHUCKY Weinstein - Last Filed: 02/01/21 13:56> VTE Device Contraindication: N/A - Device Ordered <CHUCKY Weinstein - Last Filed: 02/01/21 13:56> VTE Drug Contraindication: N/A - Med Ordered <CHUCKY Weinstein - Last Filed: 02/01/21 13:56>
[2021-02-01 12:50] VITALS: BP 179/98; PULSE 120; RESP 18; O2SAT 89
[2021-02-01 12:56] VITALS: O2SAT 93
--- NOTE | 2021-02-01 13:28 | PC.NURSE ---
Pt's o2 demand increasing and is now on 6liters via Saab cannula with sats 90-93%. Natalie LOCKE aware. 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 Doxycycline not yet given in anticipation for dialysis.
--- NOTE | 2021-02-01 13:59 | PHA.MEDREC ---
Pharmacy Consult ? Medication Reconciliation Pharmacy has completed the medication reconciliation. Received medication list from dialysis Elise Guerra PharmD
[2021-02-01] MEDS: Doxycycline Hyclate 100 MG in 0.9 % Sodium Chloride 250 ML 166.67 MG IV (14:26)
[2021-02-01 14:47] LABS: Troponin-I High Sensitivity 595.4 ng/L (<3.5-17.0)
[2021-02-01 15:45] VITALS: BP 171/105; PULSE 114; RESP 24; TEMP 36.9; O2SAT 94
--- NOTE | 2021-02-01 16:13 | PM.CNNEP ---
History of Present Illness Reason for Consult Consult date: 02/01/21 Reason for consult: Hyperkalemia Chief Complaint Chief complaint: hyperkalemia, hypoxia History of Present Illness Narrative: Guadalupe is a 70-year-old female with history of ESRD was brought to the emergency department due to altered mental status.? History was primarily obtained from her sister at the bedside as the patient is confused and unable to provide any significant history.? She reportedly did not go to dialysis on Friday, the reason is unclear.? She went to visit her son yesterday and he called the patient's sister saying that something was not right with her.? Today she did not show up to dialysis again and EMS was sent for a wellness check.? She was found in bed and confused.? She was brought to the hospital for further evaluation.? Found to be hypoxic with an oxygen saturation of 88% on room air chest x-ray showed concern over multifocal pneumonia.? She was started on IV antibiotics brain CT showed no acute abnormalities.? Lab work showed elevated potassium at 7.8.?Nephrology was consulted to assist in her clinical care during her current hospital stay. Review of Systems Review of Systems Yes Unobtainable due to mental status Reports confusion Psychiatric: Reports confusion PMFSH Past Medical History Medical History Anemia Anxiety and depression Arthritis Asthma AV fistula Bronchitis Cirrhosis COPD (chronic obstructive pulmonary disease) Coronary artery disease COVID-19 vaccine series completed DJD (degenerative joint disease) of thoracic spine End-stage renal disease (ESRD) GERD (gastroesophageal reflux disease) Gout Hemodialysis patient History of blood transfusion History of transcatheter aortic valve replacement (TAVR) Hyperkalemia Left inguinal hernia Murmur Neuropathy Patient on waiting list for kidney transplant Functional capacity: uses cane/walker Family History Family history: reviewed and not pertinent Surgical History Surgical History History of liver transplant History of surgery on arm Hx of colonoscopy Social History Social History (Updated 02/01/21 @ 12:39 by CHUCKY Weinstein) Household Members: None Housing: House Are you a primary care aide to a significant other at home: No Do you presently have visiting nurse or other home services: Yes ([facility]-help with light housekeeping,laundry) Alcohol intake: former Year quit: 2008 Use of substances other than those prescribed or required for medical reasons: No Advance Directives: Yes Advance Directives on File: Yes Advance Directives Date on File: 03/08/20 service: No Current occupational status: retired Meds Allergies Allergy/AdvReac Type Severity Reaction Status Date / Time Sulfa (Sulfonamide Allergy Intermediate HIVES Verified 08/14/20 10:44 Antibiotics) Heparin Analogues Allergy Unknown UNKNOWN Verified 08/14/20 10:44 [Heparin Agents] verapamil Allergy Unknown unknown Verified 08/14/20 10:44 Active Medications: Current Medications Acetaminophen (Acetaminophen 325 Mg Tablet) 650 mg PO Q6H PRN PRN Reason: Pain, Mild (Pain Scale 1-3) Albuterol Sulfate (Albuterol Sulfate 90 Mcg 8 Gm Inhaler) 1 puff INHALE Q4H PRN PRN Reason: Shortness Of Breath Or Wheezin Allopurinol (Allopurinol 100 Mg Tablet) 100 mg PO DAILY [facility] Aspirin (Aspirin Enteric Coated 81 Mg Tablet.Dr) 81 mg PO DAILY [facility] Atorvastatin Calcium (Atorvastatin Calcium 20 Mg Tablet) 20 mg PO BEDTIME [facility] Calcium Carbonate (Calcium Carbonate 500 Mg Tablet) 500 mg PO DAILY PRN PRN Reason: DIALYSIS Docusate Sodium (Docusate Sodium 100 Mg Capsule) 100 mg PO DAILY PRN PRN Reason: Constipation Famotidine (Famotidine 20 Mg Tablet) 20 mg PO DAILY [facility] Folic Acid (Folic Acid 1 Mg Tablet) 1 mg PO DAILY [facility] Ceftriaxone Sodium 1 gm/ (Sodium Chloride) 50 mls @ 100 mls/hr IV Q24H [facility] Doxycycline Hyclate 100 mg/ (Sodium Chloride) 250 mls @ 166.67 mls/hr IV Q12H [facility] Last Admin: 02/01/21 14:26 Dose: 166.67 mls/hr Documented by: Levothyroxine Sodium (Levothyroxine Sodium 100 Mcg Tablet) 100 mcg PO DAILY [facility] Ondansetron HCl (Ondansetron Hcl 4 Mg/2 Ml Vial) 4 mg IVPUSH Q8H PRN PRN Reason: Nausea and Vomiting Pharmacy Consult (Consult Rx Perform Med Rec) 1 each MISCELLANE ONCE PRN PRN Reason: Consult order Sodium Chloride (0.9 % Sodium Chloride Flush 3 Ml Syringe) 3 ml IVFLUSH QSHIFT [facility] Last Admin: 02/01/21 16:07 Dose: Not Given Documented by: Tacrolimus (Tacrolimus 1 Mg Capsule) 1 mg PO BID [facility] Venlafaxine HCl (Venlafaxine Hcl 25 Mg Tablet) 25 mg PO DAILY [facility] Vitamin D (Cholecalciferol (Vitamin D3) 25 Mcg Tablet) 50 mcg PO DAILY [facility] Home Medications Medication Instructions Recorded Confirmed Last Taken Type aspirin 81 mg tablet,delayed 81 mg PO QAM 01/26/20 02/01/21 08/13/20 History release famotidine 20 mg tablet 20 mg PO DAILY 01/26/20 02/01/21 08/14/20 09:00 History folic acid 1 mg tablet 1 mg PO DAILY 01/26/20 02/01/21 08/13/20 History rosuvastatin 10 mg tablet 10 mg PO BEDTIME 01/26/20 02/01/21 08/13/20 History allopurinol 100 mg tablet 100 mg PO DAILY 03/08/20 02/01/21 08/13/20 History docusate sodium 100 mg capsule 100 mg PO BID PRN 03/08/20 02/01/21 Unknown History (DOK) tacrolimus 1 mg capsule, 1 mg PO BID 03/08/20 02/01/21 08/14/20 09:00 History immediate-release albuterol sulfate 90 mcg/actuation 2 puff INHALATION Q4-6H PRN 08/07/20 02/01/21 Unknown History aerosol inhaler (Ventolin HFA) calcium citrate 200 mg (950 mg) 400 mg PO USEASDIRECTD 08/14/20 02/01/21 Unknown History tablet cholecalciferol (vitamin D3) 50 1 tab PO DAILY 08/14/20 02/01/21 08/13/20 History mcg (2,000 unit) tablet clonazepam 0.5 mg tablet 1 tab PO DAILY PRN 08/14/20 02/01/21 Unknown History hydroxyzine HCl 25 mg tablet 1 tab PO TID PRN 08/14/20 02/01/21 Unknown History ondansetron HCl 4 mg tablet 4 mg PO Q8H PRN 08/14/20 02/01/21 Unknown History (Zofran) ropinirole 0.5 mg tablet 1 tab PO BEDTIME 08/14/20 02/01/21 08/13/20 History venlafaxine 25 mg tablet 1 tab PO DAILY 08/14/20 02/01/21 08/14/20 History famotidine 20 mg tablet 1 tab PO BEDTIME PRN 02/01/21 02/01/21 Unknown History levothyroxine 100 mcg tablet 1 tab PO DAILY 02/01/21 02/01/21 Unknown History oxycodone 5 mg tablet 1 tab PO BID PRN 02/01/21 02/01/21 Unknown History Physical Exam Vital Signs: Last Vital Signs Temp 98.4 F 02/01/21 15:45 Pulse 114 H 02/01/21 15:45 Resp 24 H 02/01/21 15:45 BP 171/105 H 02/01/21 15:45 Pulse Ox 94 02/01/21 15:45 Body Mass Index 25.6 Const General: confusion Orientation/consciousness: confusion HENMT Head: Yes normocephalic and Yes atraumatic Neck Neck: Yes supple Resp Auscultation: diminished lung sounds Cardio Rate: regular rate Rhythm: regular rhythm GI Palpation (GI): Soft to palpation Neuro Other: confused General: moves all extremities and confusion Results Lab Results Result Diagrams: 02/01/21 10:11 02/01/21 10:11 Lab results: Chemistry 02/01/21 10:11 Sodium 135 Potassium 7.8 H* D Carbon Dioxide 19 L BUN 92 H* D Creatinine 12.65 H* Calcium 9.5 D Hematology 02/01/21 10:11 WBC 14.0 H Hgb 11.5 L Plt Count 144 L Assessment and Plan (1) End-stage renal disease (ESRD): Status: Acute Usually gets HD on TTS Has not had HD this week Hyperkalemic- medically treated Shall arrange urgent HD Low K diet; Phos binders with meals All medications should be dosed for GFR Shall closely follow up closely Procedures Date of Service Date of Service: 02/01/21
[2021-02-01] MEDS: Aspirin Enteric Coated 81 MG TABLET.DR PO (16:34)
[2021-02-01 16:53] LABS: Blood Urea Nitrogen 93 mg/dL (9-16); Calcium 9.1 mg/dL (8.4-10.2); Creatinine Clr Calc Pharmacy 4.2; Estimated Glomerular Filt Rate 3; Glucose Random 97 mg/dL (60-115)
[2021-02-01 17:03] LABS: Anion Gap 26 (12-20); Carbon Dioxide 20 mmol/L (22-29); Chloride 100 mmol/L (96-108); Potassium 5.7 mmol/L (3.3-5.1); Sodium 140 mmol/L (135-145)
--- NOTE | 2021-02-01 17:44 | MHC.CM.PN ---
CM attempted to meet with patient. Pt with AMS. Only answers YES to CM questions. Pt searching for words. IMM reviewed and signed by Jena Flowers per protocol 02/01/2021@1635. Sister/HCP Jena Flowers present. CM interviewed HCP and reviewed medical record. Pt lives in elderly housing. Pt uses a walker and still drives. 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 Pt is fully vaccinated with Moderna. Given at dialysis. Pt has dialysis at [facility] in [place], Friday, and Friday. Pt has received a liver transplant and is on a waiting list for a kidney. Sister states patient did not show up for dialysis on Friday or Today. When she arrived at her sisters, the ambulance was already there. Sister states she was told the patient was driving erratically yesterday and sister states the car is dented along the side. Sister also tells CM that her sister is a hoarder. D/C plan depending on hospital course. Home vs STR. Sister/HCP wanted to update the HCP, but CM explained that even though the addresses have changed, it was still valid and CM would need for her sister to be more lucid to complete another. Explained that CM can update a new HCP while patient is hospitalized when she becomes more lucid after dialysis treatments. CM to follow for d/c needs.
--- NOTE | 2021-02-01 19:10 | PM.EVENT ---
Event Note Date of Service: 02/01/21 Event Note: Called to see patient since noted to have ventricular rate 150s tele monitor showing atrial fibrillation Patient admitted this morning due to acute mental status and diagnosed to have hyperkalemia due to missing hemodialysis Currently patient receiving hemodialysis awake alert, denies chest pain, shortness of breath or palpitation On examination No acute distress Heart irregularly irregular Extremities no edema Assessment plan New onset atrial fibrillation Reviewed old records it shows that patient is status post TAVR with bioprosthetic valve at [facility] in 2018, no history of AFib, not on beta-pamela Likely AFib due to volume overload, electrolyte abnormality, no evidence of hypoxia, noted to elevated troponin ? ischemia Will checks EKG, TSH and obtain echocardiogram to check for wall motion abnormality Will give IV Lopressor 5 mg, follow clinical course, continue aspirin and Lipitor Patient receiving hemodialysis will have maximum fluid removed.
[2021-02-01 19:18] VITALS: BP 154/96; PULSE 146
[2021-02-01] MEDS: Metoprolol Tartrate 5 MG/5 ML VIAL IVPUSH (19:18)
[2021-02-01 20:11] LABS: Thyroid Stimulating Hormone 0.14 uIU/mL (0.32-4.0)
[2021-02-01 22:25] VITALS: BMI 25.4
[2021-02-01 22:31] VITALS: BP 98/82; PULSE 88; RESP 17; TEMP 36.9; O2SAT 98
[2021-02-02] VITALS (8 sets, daily range): BP systolic 135–189; BP diastolic 64–98; PULSE 71–120; RESP 14–19; TEMP 36.4–37.1; O2SAT 93–100
[2021-02-02] MEDS: Doxycycline Hyclate 100 MG in 0.9 % Sodium Chloride 250 ML 166.67 MG IV ×2 (00:48→14:05)
[2021-02-02] MEDS: 0.9 % Sodium Chloride Flush 3 ML SYRINGE IVFLUSH ×4 (00:48→20:57)
--- NOTE | 2021-02-02 05:34 | PC.NURSE ---
AM VSS. Telemetry Afib 110-120. Pt drowsy-arouses to voice. Pt is still confused, unable to stay awake and unable to answer questions. When asked her name, pt looks at you but doesn't answer. She then closes her eyes and goes back to sleep. IV antibiotics given as ordered. Kept pt NPO due to lethargy. Fistula in LA +bruit and thrill. Dressing, CD&I. Bed alarm on for safety. Will continue to monitor.
[2021-02-02 06:21] LABS: MANUAL DIFF FLAG NO
[2021-02-02 06:44] LABS: Basophils Percent Auto 0.3 % (0-2); Eosinophils Absolute Auto 0.1 X10*3/uL (0.0-0.4); Eosinophils Percent Auto 0.6 % (0-4); Hematocrit 36.1 % (37.0-47.0); Hemoglobin 11.4 g/dl (12.0-16.0); Imm Gran Abs Auto 0.08 X10*3/uL (0.00-0.03); Imm Gran Pct Auto 0.7 % (0.0-0.4); Lymphocytes Absolute Auto 1.8 X10*3/uL (1.2-4.9); Lymphocytes Percent Auto 15.8 % (20-40); Mean Corpuscular HGB Conc 31.6 g/dl (31.0-35.0); Mean Corpuscular Hemoglobin 29.8 pg (27.0-33.0); Mean Corpuscular Volume 94.5 fL (80.0-98.0); Monocytes Percent Auto 9.1 % (2-11); Neutrophils Absolute Auto 8.4 x10*3/uL (2.0-8.3); Neutrophils Percent Auto 73.5 % (45-73); Platelet Count 140 X10*3/uL (160-400); Red Blood Count 3.82 X10*6/uL (4.20-5.50); Red Cell Distribution Width 15.3 % (11.0-16.0); White Blood Count 11.5 X10*3/uL (4.8-10.8)
[2021-02-02 06:52] LABS: Anion Gap 22 (12-20); Blood Urea Nitrogen 34 mg/dL (9-16); Calcium 8.1 mg/dL (8.4-10.2); Carbon Dioxide 18 mmol/L (22-29); Chloride 102 mmol/L (96-108); Potassium 4.4 mmol/L (3.3-5.1); Sodium 138 mmol/L (135-145)
[2021-02-02 07:12] LABS: Creatinine Clr Calc Pharmacy 8.4; Estimated Glomerular Filt Rate 7; Glucose Random 57 mg/dL (60-115)
--- NOTE | 2021-02-02 07:30 | CA_ITS ---
Transthoracic Echocardiogram Patient (Last, First, Middle): Guadalupe Kay, Gender: Female Date of : 1950 Age: 70 Procedure Date: 02/02/2021 Procedure Type: Transthoracic Echocardiogram [place] [facility] [place]: 167.64 cm Weight: 71.22 kg BSA: 1.80 m2 Heart Rate: bpm BP: 135 / 80 mmHg Group Practice Pediatrician: YVETTE/KESHIA Referring MD: Alvino Jones MD Cargo Worker: Jermaine Yepez MD Symptoms: at fib elevated trop Study Quality: Fair ECG Rhythm: Sinus Conclusions: - 1. Mildly reduced LV systolic function with mild LVH with impaired relaxation filling pattern with wall motion abnormality in RCA territory 2. Mildly dilated left atrium 3. Normally function bioprosthetic aortic valve with mean gradient of 11 mm mercury 4. Normal RV systolic pressure 5. No gross pericardial effusion Findings Left Ventricle Normal left ventricular cavity size. There is mildly increased left ventricular wall thickness. The left ventricular systolic function is mildly decreased. The visually estimated ejection fraction is between 45-50%. Spectral Doppler is indicative of an impaired relaxation filling pattern. E/E prime ratio is between 8 and 15 consistent with indeterminate filling pressures. Wall Motion Rest Echo Findings The apical inferior, mid inferior, apical septum, mid inferoseptal, and mid anteroseptal segments are hypokinetic. The basal inferior and basal inferoseptal segments are akinetic. All other scored wall segments showed normal motion. Right Ventricle Normal right ventricular cavity size. There is borderline right ventricular systolic function. Atria The left atrium is mildly dilated. Interatrial shunt cannot be excluded. The right atrium is likely dilated. Aortic Valve A bioprosthetic aortic valve is present. The prosthetic aortic valve appears to be functioning normally. The mean gradient is 11 mmHg. There is no aortic valve regurgitation. The bioprosthetic valve is well seated with no abnormal rocking motion Mitral Valve There is mild anterior and moderate posterior mitral leaflet thickening. There is mild mitral annular calcification. There is trace mitral valve regurgitation. There is no mitral valve stenosis. Pulmonic Valve The pulmonic valve was not well visualized. Tricuspid Valve Likely normal tricuspid valve structure and function. There is mild tricuspid valve regurgitation. The right ventricular systolic pressure is normal. The right ventricular systolic pressure is 37 mmHg. Normal right atrial pressure. There is no evidence of pulmonary hypertension. Great Vessels All visible segments of the aorta are normal in size. The pulmonary artery was not well visualized. Venous The inferior vena cava is normal in size and collapses greater than 50% with inspiration. Pericardium/Pleural There is no evidence of pericardial effusion. Prior Study Comparison Changes noted compared to prior study dated: 05/04/2018. LV systolic function is reduced with new wall motion abnormality Measurements 2D Linear Measurements IVSd: 1.29 0.6-0.9/0.6-1.0 cm LVIDd: 4.77 3.9-5.3/4.2-5.9 cm LVIDd Index: 2.65 2.4-3.2/2.2-3.1 cm/m2 LVIDs: 3.34 2.0-3.6 cm LVPWd: 1.13 0.7-1.1 cm Ao Root: 3.50 2.1-3.5 cm LA Diam: 4.80 2.7-3.8/3.0-4.0 cm LAIDs Index: 2.67 1.5-2.3 cm/m2 LV Mass: 273.69 67-162/88-224 g LV Mass Index: 152.05 43-95/49-115 g/m2 LVOT Diam: 2.00 3.0+(-)1.3 cm 2D Systolic Function EF 4C: 46.40 >55% EF 2C: 49.10 >55% EF BiP: 46.90 >55% Mitral Valve MV Pk E: 0.72 MV PK A: 0.99 MV Decel Time: 247.00 E/A: 0.70 E'Lateral: 7.40 E'Medial: 4.46 E/E' Med: 16.20 E/E' Lat: 9.80 PHT: 72.00 MVA PHT: 3.06 Decel Luce: 2.93 Aortic Valve AoV Pk Hayden: 2.05 AoV Mn Hayden: 1.56 AoV VTI: 0.39 AoV Pk Grad: 17.00 Aov Mn Grad: 11.00 ERNESTINE Cont.VTI: 1.50 LVOT LVOT Pk Hayden: 0.95 LVOT Mn Hayden: 0.60 LVOT VTI: 0.19 LVOT Pk Grad: 4.00 LVOT Mn Grad: 2.00 LVOT Diam: 2.00 LVOT Area: 3.14 Diastolic Function MV Pk E: 0.72 MV Pk A: 0.99 E/A: 0.70 E'Medial: 4.46 E/E' Med: 16.20 E' Laterial: 7.40 E/E' Lat: 9.80 Right Ventricle TAPSE (mm): 1.65 TVS' Hayden: 10.80 Tricuspid Valve TR Pk Hayden: 2.93 TR Pk Grad: 34.00 RA Press: 3.00 RVSP: 37.00 Great Vessels Aorta Ao Root-2D: 3.50 2.0-3.7 cm Ao Asc: 3.60 2.1-3.4 cm Ao Arch: 2.90 Updated in Other Vendor System with Status of Final Jermaine Yepez MD electronically signed on 02/02/2021 3:29:13 PM with status of Final
[2021-02-02 07:53] LABS: Glucose, Whole Blood 65 mg/dL (60-115)
[2021-02-02 07:57] LABS: Glucose, Whole Blood 64 mg/dL (60-115)
[2021-02-02 08:29] LABS: Free T4 (Free Thyroxine) 0.88 ng/dL (0.71-1.85)
[2021-02-02 08:38] LABS: Glucose, Whole Blood 108 mg/dL (60-115)
--- NOTE | 2021-02-02 09:19 | ECG_ITS ---
Test Reason : converted to sinus Blood Pressure : / mmHG Vent. Rate : 088 BPM Atrial Rate : 088 BPM P-R Int : 204 ms QRS Dur : 092 ms QT Int : 448 ms P-R-T Axes : 020 -07 165 degrees QTc Int : 542 ms Sinus rhythm with occasional Premature ventricular complexes Minimal voltage criteria for LVH, may be normal variant ( Duane product ) Anteroseptal infarct , age undetermined ST elevation in Anterior leads T-wave inversion in Anterolateral leads Prolonged QT Abnormal ECG When compared with ECG of 01-FEB-2021 10:18, T wave inversion now evident in Anterolateral leads QRS duration has decreased Heart rate has decreased Premature ventricular complexes are new Referred By: Natalie Fernandez Electronically Signed By:SAVITA ORDOÑEZ MD
[2021-02-02] MEDS: Cholecalciferol (Vitamin D3) 25 MCG TABLET 50 MCG PO (09:51)
[2021-02-02] MEDS: Venlafaxine HCL 25 MG TABLET PO (09:51)
[2021-02-02] MEDS: Aspirin Enteric Coated 81 MG TABLET.DR PO (09:51)
[2021-02-02] MEDS: allopurinoL 100 MG TABLET PO (09:52)
[2021-02-02] MEDS: Famotidine 20 MG TABLET PO (09:52)
[2021-02-02] MEDS: Folic Acid 1 MG TABLET PO (09:52)
[2021-02-02] MEDS: Tacrolimus 1 MG CAPSULE PO ×2 (09:52→20:57)
[2021-02-02 09:53] LABS: Magnesium 2.4 mg/dL (1.6-2.6)
[2021-02-02] MEDS: cefTRIAXone sodium 1 GM in 0.9 % Sodium Chloride 50 ML IV (10:45)
[2021-02-02] MEDS: Levothyroxine Sodium 75 MCG TABLET PO (10:45)
--- NOTE | 2021-02-02 10:52 | P.CONCA_ITS ---
History of Present Illness History of Present Illness Date of Service: 02/02/21 Requesting physician: Natalie Fernandez Consult reason: atrial fibrillation Chief complaint: Atrial fibrillation, elevated troponins Narrative: I was requested to see Guadalupe in cardiology consultation today as she was admitted with altered mental status yesterday after missing a dialysis session brought in with all altered mental status and hypoxemia. Chest x-ray was suggestive of multifocal pneumonia. She had elevated troponins. She also had marked hyperkalemia. Underwent urgent dialysis yesterday. During dialysis she developed atrial fibrillation rapid ventricular response. Overnight she was rapid and this morning is converted back to sinus rhythm. Initial EKG on presentation showed sinus tachycardia with nonspecific intraventricular conducti on delay most likely related to hyperkalemia. Repeat EKG this morning shows normal sinus rhythm with narrow QRS complexes leftward axis with deep T-wave inversions in the precordial leads suggestive myocardial ischemia. Her troponin on admissions were elevated in the 600 range, down trending to 500 range. She had no chest discomfort, however this is difficult to evaluate. Patient says she feels tired. She is currently being treated with dialysis, antibiotics and supportive care. She is using oxygen currently. Her respiratory status seems to have improved. She is well aware of her overall prior history at this time. She said she had transcatheter aortic valve replacement about couple years ago at [facility]. Has coronary artery disease and prior stenting, known year at this point in time for her. She also has history of liver transplant done at [facility]. She also has end-stage renal disease on hemodialysis. Her BNP was markedly elevated yesterday. Review of Systems Review of Systems: Yes Unobtainable due to mental condition and Unobtainable due to mental status [facility] Past Medical History Medical History Anemia Anxiety and depression Arthritis Asthma AV fistula Bronchitis Cirrhosis COPD (chronic obstructive pulmonary disease) Coronary artery disease COVID-19 vaccine series completed DJD (degenerative joint disease) of thoracic spine End-stage renal disease (ESRD) GERD (gastroesophageal reflux disease) Gout Hemodialysis patient History of blood transfusion History of transcatheter aortic valve replacement (TAVR) Hyperkalemia Left inguinal hernia Murmur Neuropathy Patient on waiting list for kidney transplant Functional capacity: uses cane/walker Family History Family history: reviewed and not pertinent Surgical History Surgical History History of liver transplant History of surgery on arm Hx of colonoscopy Social History Social History Household Members: Unknown / Unable to assess Housing: Unknown / Unable to assess Are you a primary career technical education instructor to a significant other at home: No Unable to assess alcohol history related to: Unable to respond Alcohol intake: former Year quit: 2008 Patient Tobacco Use Status: Tobacco use Unknown Use of substances other than those prescribed or required for medical reasons: Unable to respond Advance Directives: Yes Advance Directives on File: Yes Advance Directives Date on File: 03/08/20 Recently lost weight without trying: Unsure Patient : No : No Poor oral hygiene: Yes (Upper dentures. No bottom teeth or dentures. Mouth dry.) service: No Current occupational status: retired [employer] Allergies Allergy/AdvReac Type Severity Reaction Status Date / Time Sulfa (Sulfonamide Allergy Intermediate HIVES Verified 08/14/20 10:44 Antibiotics) Heparin Analogues Allergy Unknown UNKNOWN Verified 08/14/20 10:44 [Heparin Agents] verapamil Allergy Unknown unknown Verified 08/14/20 10:44 Active Medications: Current Medications Acetaminophen (Acetaminophen 325 Mg Tablet) 650 mg PO Q6H PRN PRN Reason: Pain, Mild (Pain Scale 1-3) Albuterol Sulfate (Albuterol Sulfate 90 Mcg 8 Gm Inhaler) 1 puff INHALE Q4H PRN PRN Reason: Shortness Of Breath Or Wheezin Allopurinol (Allopurinol 100 Mg Tablet) 100 mg PO DAILY [facility] Last Admin: 02/02/21 09:52 Dose: 100 mg Documented by: Aspirin (Aspirin Enteric Coated 81 Mg Tablet.) 81 mg PO DAILY [facility] Last Admin: 02/02/21 09:51 Dose: 81 mg Documented by: Atorvastatin Calcium (Atorvastatin Calcium 20 Mg Tablet) 20 mg PO BEDTIME [facility] Last Admin: 02/01/21 23:15 Dose: Not Given Documented by: Calcium Carbonate (Calcium Carbonate 500 Mg Tablet) 500 mg PO DAILY PRN PRN Reason: DIALYSIS Docusate Sodium (Docusate Sodium 100 Mg Capsule) 100 mg PO DAILY PRN PRN Reason: Constipation Famotidine (Famotidine 20 Mg Tablet) 20 mg PO DAILY [facility] Last Admin: 02/02/21 09:52 Dose: 20 mg Documented by: Folic Acid (Folic Acid 1 Mg Tablet) 1 mg PO DAILY [facility] Last Admin: 02/02/21 09:52 Dose: 1 mg Documented by: Ceftriaxone Sodium 1 gm/ (Sodium Chloride) 50 mls @ 100 mls/hr IV Q24H [facility] Last Admin: 02/02/21 10:45 Dose: 100 mls/hr Documented by: Doxycycline Hyclate 100 mg/ (Sodium Chloride) 250 mls @ 166.67 mls/hr IV Q12H [facility] Last Infusion: 02/02/21 02:20 Dose: Infused Documented by: Levothyroxine Sodium (Levothyroxine Sodium 75 Mcg Tablet) 75 mcg PO DAILY@0630 [facility] Last Admin: 02/02/21 10:45 Dose: 75 mcg Documented by: Ondansetron HCl (Ondansetron Hcl 4 Mg/2 Ml Vial) 4 mg IVPUSH Q8H PRN PRN Reason: Nausea and Vomiting Pharmacy Consult (Consult Rx Perform Med Rec) 1 each MISCELLANE ONCE PRN PRN Reason: Consult order Sodium Chloride (0.9 % Sodium Chloride Flush 3 Ml Syringe) 3 ml IVFLUSH QSHIFT [facility] Last Admin: 02/02/21 09:59 Dose: 3 ml Documented by: Tacrolimus (Tacrolimus 1 Mg Capsule) 1 mg PO BID [facility] Last Admin: 02/02/21 09:52 Dose: 1 mg Documented by: Venlafaxine HCl (Venlafaxine Hcl 25 Mg Tablet) 25 mg PO DAILY [facility] Last Admin: 02/02/21 09:51 Dose: 25 mg Documented by: Vitamin D (Cholecalciferol (Vitamin D3) 25 Mcg Tablet) 50 mcg PO DAILY [facility] Last Admin: 02/02/21 09:51 Dose: 50 mcg Documented by: Home Medications Medication Instructions Recorded Confirmed Last Taken Type aspirin 81 mg tablet,delayed 81 mg PO QAM 01/26/20 02/01/21 08/13/20 History release famotidine 20 mg tablet 20 mg PO DAILY 01/26/20 02/01/21 08/14/20 09:00 History folic acid 1 mg tablet 1 mg PO DAILY 01/26/20 02/01/21 08/13/20 History rosuvastatin 10 mg tablet 10 mg PO BEDTIME 01/26/20 02/01/21 08/13/20 History allopurinol 100 mg tablet 100 mg PO DAILY 03/08/20 02/01/21 08/13/20 History docusate sodium 100 mg capsule 100 mg PO BID PRN 03/08/20 02/01/21 Unknown History (DOK) tacrolimus 1 mg capsule, 1 mg PO BID 03/08/20 02/01/21 08/14/20 09:00 History immediate-release albuterol sulfate 90 mcg/actuation 2 puff INHALATION Q4-6H PRN 08/07/20 02/01/21 Unknown History aerosol inhaler (Ventolin HFA) calcium citrate 200 mg (950 mg) 400 mg PO USEASDIRECTD 08/14/20 02/01/21 Unknown History tablet cholecalciferol (vitamin D3) 50 1 tab PO DAILY 08/14/20 02/01/21 08/13/20 History mcg (2,000 unit) tablet clonazepam 0.5 mg tablet 1 tab PO DAILY PRN 08/14/20 02/01/21 Unknown History hydroxyzine HCl 25 mg tablet 1 tab PO TID PRN 08/14/20 02/01/21 Unknown History ondansetron HCl 4 mg tablet 4 mg PO Q8H PRN 08/14/20 02/01/21 Unknown History (Zofran) ropinirole 0.5 mg tablet 1 tab PO BEDTIME 08/14/20 02/01/21 08/13/20 History venlafaxine 25 mg tablet 1 tab PO DAILY 08/14/20 02/01/21 08/14/20 History famotidine 20 mg tablet 1 tab PO BEDTIME PRN 02/01/21 02/01/21 Unknown History levothyroxine 100 mcg tablet 1 tab PO DAILY 02/01/21 02/01/21 Unknown History oxycodone 5 mg tablet 1 tab PO BID PRN 02/01/21 02/01/21 Unknown History Physical Exam Vital Signs: Vital Signs: Last Vital Signs Temp 98.5 F 02/02/21 07:55 Pulse 90 02/02/21 07:55 Resp 19 02/02/21 07:55 BP 189/98 H 02/02/21 07:55 Pulse Ox 99 02/02/21 07:55 Body Mass Index 25.4 Const: General: cooperative, comfortable, ill appearing and tired appearing Nutritional Appearance: thin Orientation/consciousness: oriented to person and oriented to place HENMT: Head: Yes normocephalic and Yes atraumatic Neck: Neck: Yes trachea midline, Yes supple and Yes no JVD Resp: Effort & Inspection: decreased respiratory effort Auscultation: no rales, wheezes and diminished lung sounds Cardio: Palpation: normal PMI Rate: regular rate Rhythm: regular rhythm Heart sounds: S1 normal heart sound present, S2 normal heart sound present, no click, no gallops and no murmurs GI: Auscultation: normal bowel sounds Skin: General skin exam: no rashes or lesions noted Neuro: General: oriented to person, oriented to place and no focal motor deficits Extrem: General: Yes no clubbing, cyanosis or edema Results Labs and Meds Result diagrams: 02/02/21 05:54 02/02/21 05:54 Lab results: Laboratory Results - last 24 hr 02/01/21 02/01/21 02/01/21 10:10 14:14 16:24 WBC RBC Hgb Hct MCV MCH MCHC RDW Plt Count MPV Immature Gran % (Auto) Neut % (Auto) Lymph % (Auto) [place] % (Auto) Eos % (Auto) Baso % (Auto) Lymph # (Auto) [place] # (Auto) Eos # (Auto) Baso # (Auto) Abs Immat Gran (auto) Absolute Neuts (auto) Absolute Nucleated RBC Nucleated RBC % (auto) Sodium 140 Potassium 5.7 H D Chloride 100 Carbon Dioxide 20 L Anion Gap 26 H BUN 93 H* Creatinine 12.92 H* Estim Creat Clear Calc 4.2 Estimated GFR 3 POC Glucose Random Glucose 97 Calcium 9.1 Magnesium Troponin I High Sens 595.4 H* B-Natriuretic Peptide 8241 H TSH 0.14 L Free T4 02/02/21 02/02/21 02/02/21 05:54 05:54 07:36 WBC 11.5 H RBC 3.82 L Hgb 11.4 L Hct 36.1 L MCV 94.5 MCH 29.8 MCHC 31.6 RDW 15.3 Plt Count 140 L MPV 11.0 Immature Gran % (Auto) 0.7 H Neut % (Auto) 73.5 H Lymph % (Auto) 15.8 L [place] % (Auto) 9.1 Eos % (Auto) 0.6 Baso % (Auto) 0.3 Lymph # (Auto) 1.8 [place] # (Auto) 1.0 Eos # (Auto) 0.1 Baso # (Auto) 0.0 Abs Immat Gran (auto) 0.08 H Absolute Neuts (auto) 8.4 H Absolute Nucleated RBC 0.000 Nucleated RBC % (auto) 0.0 Sodium 138 Potassium 4.4 D Chloride 102 Carbon Dioxide 18 L Anion Gap 22 H BUN 34 H D Creatinine 6.36 H* Estim Creat Clear Calc 8.4 Estimated GFR 7 POC Glucose 65 Random Glucose 57 L* Calcium 8.1 L D Magnesium 2.4 Troponin I High Sens B-Natriuretic Peptide TSH Free T4 0.88 02/02/21 02/02/21 07:54 08:34 WBC RBC Hgb Hct MCV MCH MCHC RDW Plt Count MPV Immature Gran % (Auto) Neut % (Auto) Lymph % (Auto) [place] % (Auto) Eos % (Auto) Baso % (Auto) Lymph # (Auto) [place] # (Auto) Eos # (Auto) Baso # (Auto) Abs Immat Gran (auto) Absolute Neuts (auto) Absolute Nucleated RBC Nucleated RBC % (auto) Sodium Potassium Chloride Carbon Dioxide Anion Gap BUN Creatinine Estim Creat Clear Calc Estimated GFR POC Glucose 64 108 Random Glucose Calcium Magnesium Troponin I High Sens B-Natriuretic Peptide TSH Free T4 Imaging Radiologist's impression: Impressions Abdomen/Pelvis CT 02/01/21 09:55 IMPRESSION: Chest: Multifocal patchy opacities and small bilateral pleural effusions, new since May and worrisome for a multifocal infection. Correlate clinically and follow-up to ensure resolution. Abdomen/pelvis: There are a few prominent loops of small bowel of uncertain significance in the absence of associated wall thickening or inflammatory changes. This could be seen in the setting of gastroenteritis or segmental ileus. Less likely, very early and partial small bowel obstruction. There is extensive diverticulosis of the sigmoid colon without significant associated inflammatory changes to suspect acute diverticulitis. Other chronic findings are detailed in the body of the report. Head CT 02/01/21 09:57 IMPRESSION: No evidence of acute intracranial hemorrhage or edematous territorial infarction. Assessment and Plan (1) Congestive heart failure: Status: Acute Patient's pulmonary findings on admission are most suggestive of pulmonary edema, multifocal pneumonia cannot be ruled out. However marked BNP elevation, missing a dialysis and prior cardiovascular issues are suggestive more of congestive heart failure issue. She seems to have clinically improved. Continue dialysis session as needed as per renal team. Continue supportive c are. Continue to follow chest x-ray and BNP. Obtain echocardiogram to assess for LV systolic function given her EKG changes, could represent stress-induced cardiomyopathy/myocardial injury related to acute heart failure and missing her dialysis session in setting of prior known CAD. (2) Elevated troponin: Status: Acute Elevated troponins are most suggestive myocardial injury secondary to acute medical illness with hypoxia and pulmonary edema as well as known underlying CAD and anti renal disease. This is not suggestive primary acute coronary syndrome. EKG shows new changes in the lateral leads. No need for IV heparin. Echocardiogram as above. Continue her usual medical therapy with low- dose aspirin therapy, and anti ischemic therapy with metoprolol and add Norvasc. Her blood pressure remains difficult control can add hydralazine to her regimen as well. Continue statin therapy. (3) Paroxysmal atrial fibrillation: Status: Acute Patient developed atrial fibrillation during dialysis session, most likely due to acute medical illness and rapidly changing electrolyte balance. However given her underlying structural heart issues likely to have recurrent atrial fibrillation the future. If she develops again atrial fibrillation may require antiarrhythmic drug support to prevent recurrent atrial fibrillation. Echocardiogram as above. Given her risk for thromboembolic complication should consider adding oral anticoagulation, consider Eliquis 2.5 mg b.i.d. given her end-stage renal disease status. Will follow with you. Procedures Date of Service Date of Service: 02/02/21
--- NOTE | 2021-02-02 14:01 | P.PNNP_ITS ---
Subjective Subjective Date of Service: 02/02/21 Principal diagnosis: no complaint ths AM Physical Exam Vital Signs: Vital Signs: Last Vital Signs Temp 98.5 F 02/02/21 07:55 Pulse 90 02/02/21 07:55 Resp 19 02/02/21 07:55 BP 189/98 H 02/02/21 07:55 Pulse Ox 99 02/02/21 07:55 Body Mass Index 25.4 oral moist mucosa on O2 supplements lungs rales on Rt base s1s2 irregular ext no edema, LUE AVF +thrill Objective Data Labs CBC & Chem 7: 02/02/21 05:54 02/02/21 05:54 Labs: Laboratory Results - last 24 hr 02/01/21 02/01/21 02/02/21 14:14 16:24 05:54 WBC 11.5 H RBC 3.82 L Hgb 11.4 L Hct 36.1 L MCV 94.5 MCH 29.8 MCHC 31.6 RDW 15.3 Plt Count 140 L MPV 11.0 Immature Gran % (Auto) 0.7 H Neut % (Auto) 73.5 H Lymph % (Auto) 15.8 L [place] % (Auto) 9.1 Eos % (Auto) 0.6 Baso % (Auto) 0.3 Lymph # (Auto) 1.8 [place] # (Auto) 1.0 Eos # (Auto) 0.1 Baso # (Auto) 0.0 Abs Immat Gran (auto) 0.08 H Absolute Neuts (auto) 8.4 H Absolute Nucleated RBC 0.000 Nucleated RBC % (auto) 0.0 Sodium 140 Potassium 5.7 H D Chloride 100 Carbon Dioxide 20 L Anion Gap 26 H BUN 93 H* Creatinine 12.92 H* Estim Creat Clear Calc 4.2 Estimated GFR 3 POC Glucose Random Glucose 97 Calcium 9.1 Magnesium Troponin I High Sens 595.4 H* TSH 0.14 L Free T4 02/02/21 02/02/21 02/02/21 05:54 07:36 07:54 WBC RBC Hgb Hct MCV MCH MCHC RDW Plt Count MPV Immature Gran % (Auto) Neut % (Auto) Lymph % (Auto) [place] % (Auto) Eos % (Auto) Baso % (Auto) Lymph # (Auto) [place] # (Auto) Eos # (Auto) Baso # (Auto) Abs Immat Gran (auto) Absolute Neuts (auto) Absolute Nucleated RBC Nucleated RBC % (auto) Sodium 138 Potassium 4.4 D Chloride 102 Carbon Dioxide 18 L Anion Gap 22 H BUN 34 H D Creatinine 6.36 H* Estim Creat Clear Calc 8.4 Estimated GFR 7 POC Glucose 65 64 Random Glucose 57 L* Calcium 8.1 L D Magnesium 2.4 Troponin I High Sens TSH Free T4 0.88 02/02/21 08:34 WBC RBC Hgb Hct MCV MCH MCHC RDW Plt Count MPV Immature Gran % (Auto) Neut % (Auto) Lymph % (Auto) [place] % (Auto) Eos % (Auto) Baso % (Auto) Lymph # (Auto) [place] # (Auto) Eos # (Auto) Baso # (Auto) Abs Immat Gran (auto) Absolute Neuts (auto) Absolute Nucleated RBC Nucleated RBC % (auto) Sodium Potassium Chloride Carbon Dioxide Anion Gap BUN Creatinine Estim Creat Clear Calc Estimated GFR POC Glucose 108 Random Glucose Calcium Magnesium Troponin I High Sens TSH Free T4 Microbiology Microbiology Results: Microbiology 02/01/21 10:10 Blood - Venous Blood Culture - Preliminary No growth after 24 hours. Procedures Date of Service Date of Service: 02/02/21 Assessment & Plan Assessment and plan (1) Acute hyperkalemia: Start date: 02/02/21 Status: Acute (2) End-stage renal disease (ESRD): Status: Acute Assessment and Plan: resolved HyperK post HD Liver transplant on buttermaker helper imunosuppression, continue with her immunosuppression. as per [facility] h/o TAVR at [facility], new onset afib check consider cards eval Multifocal PNA on antibx consider adding coverage for atypical and oportunistic infections in a pt with know buttermaker helper immunosuppression plan HD in AM Assessment and Plan: plan to resume HD in AM Time Spent With Patient Time: Total time spent is greater than 50% in coordination of care (as documented) at patient's floor/unit and/or counseling patient: Progress Note: Quality Stroke Does the patient have a stroke diagnosis?: No
--- NOTE | 2021-02-02 14:03 | MHC.CM.PN ---
Female 70 DX HyperK+ Hypoxia. HD T/TH/Sat. DP resumption of HD and [facility] [employer] services. Family will provide transportation home.
--- NOTE | 2021-02-02 14:07 | HO.PM.IMPN ---
Subjective Subjective Date of Service: 02/02/21 <CHUCKY Weinstein - Last Filed: 02/02/21 14:40> 02/24/21 <Juancho Henriquez MD - Last Filed: 02/24/21 16:12> Interval History: seen and examined this morning follow up for encephalopathy, hyperkalemia Went into rapid AFib last evening during dialysis. Received a dose of IV Lopressor with good effect Less confused this morning, reports feeling better <CHUCKY Weinstein - Last Filed: 02/02/21 14:40> Review of Systems Review of Systems: Yes all other systems are reviewed and are negative <CHUCKY Weinstein - Last Filed: 02/02/21 14:40> Constitutional Constitutional: Denies chills and Denies fever(s) <CHUCKY Weinstein Last Filed: 02/02/21 14:40> Cardiovascular Cardiovascular: Denies chest pain <CHUCKY Weinstein - Last Filed: 02/02/21 14:40> Respiratory Respiratory: Denies cough <CHUCKY Weinstein - Last Filed: 02/02/21 14:40> Gastrointestinal Gastrointestinal: Denies abdominal pain <CHUCKY Weinstein Last Filed: 02/02/21 14:40> Physical Exam Vital Signs: Vital Signs: Last Vital Signs Temp 98.5 F 02/02/21 07:55 Pulse 90 02/02/21 07:55 Resp 19 02/02/21 07:55 BP 189/98 H 02/02/21 07:55 Pulse Ox 99 02/02/21 07:55 Body Mass Index 25.4 <CHUCKY Weinstein - Last Filed: 02/02/21 14:40> Const: General: alert and awake <CHUCKY Weinstein Last Filed: 02/02/21 14:40> Nutritional Appearance: well nourished <CHUCKY Weinstein Last Filed: 02/02/21 14:40> Orientation/consciousness: oriented to person and oriented to place <CHUCKY Weinstein Last Filed: 02/02/21 14:40> HENMT: Other: dry mucous membranes <CHUCKY Weinstein - Last Filed: 02/02/21 14:40> Head: Yes normocephalic and Yes atraumatic <CHUCKY Weinstein Last Filed: 02/02/21 14:40> Eyes: Sclerae: sclerae normal <CHUCKY Weinstein Last Filed: 02/02/21 14:40> Pupils: Equal, round and reactive pupils present <CHUCKY Weinstein Last Filed: 02/02/21 14:40> Resp: Effort & Inspection: normal respiratory effort and no respiratory distress <CHUCKY Weinstein Last Filed: 02/02/21 14:40> Cardio: Rate: regular rate <CHUCKY Weinstein Last Filed: 02/02/21 14:40> Rhythm: regular rhythm <CHUCKY Weinstein Last Filed: 02/02/21 14:40> GI: Palpation (GI): Soft to palpation and nontender <CHUCKY Weinstein - Last Filed: 02/02/21 14:40> Neuro: General: oriented to person and oriented to place <CHUCKY Weinstein Last Filed: 02/02/21 14:40> Cranial nerves: Yes CN's II-XII intact bilaterally, Yes Equal, round and reactive pupils present and Yes Bilaterally intact EOM present <CHUCKY Weinstein Last Filed: 02/02/21 14:40> Extrem: Other: no leg edema <CHUCKY Weinstein Last Filed: 02/02/21 14:40> Objective Data Active Medications Acetaminophen (Acetaminophen 325 Mg Tablet) 650 mg PO Q6H PRN PRN Reason: Pain, Mild (Pain Scale 1-3) Albuterol Sulfate (Albuterol Sulfate 90 Mcg 8 Gm Inhaler) 1 puff INHALE Q4H PRN PRN Reason: Shortness Of Breath Or Wheezin Allopurinol (Allopurinol 100 Mg Tablet) 100 mg PO DAILY REPLACED BY [facility] Last Admin: 02/02/21 09:52 Dose: 100 mg Documented by: REJI Aspirin (Aspirin Enteric Coated 81 Mg Tablet.) 81 mg PO DAILY REPLACED BY [facility] Last Admin: 02/02/21 09:51 Dose: 81 mg Documented by: REJI Atorvastatin Calcium (Atorvastatin Calcium 20 Mg Tablet) 20 mg PO BEDTIME REPLACED BY [facility] Last Admin: 02/01/21 23:15 Dose: Not Given Documented by: VIVINA Non-Admin Reason: Off unit: Dialysis Calcium Carbonate (Calcium Carbonate 500 Mg Tablet) 500 mg PO DAILY PRN PRN Reason: DIALYSIS Docusate Sodium (Docusate Sodium 100 Mg Capsule) 100 mg PO DAILY PRN PRN Reason: Constipation Famotidine (Famotidine 20 Mg Tablet) 20 mg PO DAILY REPLACED BY [facility] Last Admin: 02/02/21 09:52 Dose: 20 mg Documented by: REJI Folic Acid (Folic Acid 1 Mg Tablet) 1 mg PO DAILY REPLACED BY [facility] Last Admin: 02/02/21 09:52 Dose: 1 mg Documented by: REJI Ceftriaxone Sodium 1 gm/ (Sodium Chloride) 50 mls @ 100 mls/hr IV Q24H REPLACED BY [facility] Last Infusion: 02/02/21 11:39 Dose: 0 mls/hr Documented by: REJI Doxycycline Hyclate 100 mg/ (Sodium Chloride) 250 mls @ 166.67 mls/hr IV Q12H REPLACED BY [facility] Last Infusion: 02/02/21 02:20 Dose: 0 mls/hr Documented by: VIVIAN Levothyroxine Sodium (Levothyroxine Sodium 75 Mcg Tablet) 75 mcg PO DAILY@0630 REPLACED BY [facility] Last Admin: 02/02/21 10:45 Dose: 75 mcg Documented by: REJI Ondansetron HCl (Ondansetron Hcl 4 Mg/2 Ml Vial) 4 mg IVPUSH Q8H PRN PRN Reason: Nausea and Vomiting Pharmacy Consult (Consult Rx Perform Med Rec) 1 each MISCELLANE ONCE PRN PRN Reason: Consult order Sodium Chloride (0.9 % Sodium Chloride Flush 3 Ml Syringe) 3 ml IVFLUSH QSHIFT REPLACED BY [facility] Last Admin: 02/02/21 09:59 Dose: 3 ml Documented by: REJI Tacrolimus (Tacrolimus 1 Mg Capsule) 1 mg PO BID REPLACED BY [facility] Last Admin: 02/02/21 09:52 Dose: 1 mg Documented by: REJI Venlafaxine HCl (Venlafaxine Hcl 25 Mg Tablet) 25 mg PO DAILY REPLACED BY [facility] Last Admin: 02/02/21 09:51 Dose: 25 mg Documented by: REJI Vitamin D (Cholecalciferol (Vitamin D3) 25 Mcg Tablet) 50 mcg PO DAILY [facility] Last Admin: 02/02/21 09:51 Dose: 50 mcg Documented by: REJI <CHUCKY Weinstein - Last Filed: 02/02/21 14:40> Labs CBC & Chem 7: : 02/04/21 06:06 02/06/21 06:28 <CHUCKY Weinstein - Last Filed: 02/02/21 14:40> Labs: Laboratory Results - last 24 hr 02/01/21 02/01/21 02/02/21 14:14 16:24 05:54 MCV 94.5 MCH 29.8 MCHC 31.6 RDW 15.3 Plt Count 140 L MPV 11.0 Immature Gran % (Auto) 0.7 H Neut % (Auto) 73.5 H Lymph % (Auto) 15.8 L [place] % (Auto) 9.1 Eos % (Auto) 0.6 Baso % (Auto) 0.3 Lymph # (Auto) 1.8 [place] # (Auto) 1.0 Eos # (Auto) 0.1 Baso # (Auto) 0.0 Abs Immat Gran (auto) 0.08 H Absolute Neuts (auto) 8.4 H Absolute Nucleated RBC 0.000 Nucleated RBC % (auto) 0.0 Anion Gap 26 H Estim Creat Clear Calc 4.2 Estimated GFR 3 POC Glucose Random Glucose 97 Calcium 9.1 Magnesium Troponin I High Sens 595.4 H* TSH 0.14 L Free T4 02/02/21 02/02/21 02/02/21 05:54 07:36 07:54 MCV MCH MCHC RDW Plt Count MPV Immature Gran % (Auto) Neut % (Auto) Lymph % (Auto) [place] % (Auto) Eos % (Auto) Baso % (Auto) Lymph # (Auto) [place] # (Auto) Eos # (Auto) Baso # (Auto) Abs Immat Gran (auto) Absolute Neuts (auto) Absolute Nucleated RBC Nucleated RBC % (auto) Anion Gap 22 H Estim Creat Clear Calc 8.4 Estimated GFR 7 POC Glucose 65 64 Random Glucose 57 L* Calcium 8.1 L D Magnesium 2.4 Troponin I High Sens TSH Free T4 0.88 11/05/21 08:34 MCV MCH MCHC RDW Plt Count MPV Immature Gran % (Auto) Neut % (Auto) Lymph % (Auto) [place] % (Auto) Eos % (Auto) Baso % (Auto) Lymph # (Auto) [place] # (Auto) Eos # (Auto) Baso # (Auto) Abs Immat Gran (auto) Absolute Neuts (auto) Absolute Nucleated RBC Nucleated RBC % (auto) Anion Gap Estim Creat Clear Calc Estimated GFR POC Glucose 108 Random Glucose Calcium Magnesium Troponin I High Sens TSH Free T4 <CHUCKY Weinstein - Last Filed: 02/02/21 14:40> Microbiology Microbiology Results: Microbiology 02/01/21 10:10 Blood Culture - Preliminary Blood - Venous No growth after 24 hours. <CHUCKY Weinstein - Last Filed: 02/02/21 14:40> Assessment and Plan (1) Paroxysmal atrial fibrillation: Status: Acute <CHUCKY Weinstein - Last Filed: 02/02/21 14:40> (2) Elevated troponin: Status: Acute <CHUCKY Weinstein - Last Filed: 02/02/21 14:40> Assessment and Plan: This is a 70-year-old female with history of ESRD on hemodialysis brought to the emergency department and found to have altered mental status, pneumonia and hyperkalemia New onset paroxysmal atrial fibrillation HR elevated overnight, received 1 dose IV metoprolol with good effect. This morning converted back to normal sinus rhythm [id number] score 4, will start renally dosed eliquis per cardiology recommendation Elevated troponin, type 2 NSTEMI likely r/t underlying medical illness/hypoxia on a background of CAD. no chest pain repeat EKG 02/02 showing new t wave inversions seen by cardiology, no need for IV heparin echo pending continue asa, statin will start low dose metoprolol uncontrolled HTN will start norvasc, metoprolol monitor bp closely Hyperkalemia Resolved following dialysis tx w/ calcium gluconate, Kayexalate, sodium bicarb in the ED Metabolic encephalopathy. Improving. Likely secondary to uremia/hyperkalemia Brain CT negative, no focal neurological deficits Oxycodone, clonazepam and ropinirole are on hold h/o previous admission for encephalopathy which was thought to be multifactorial due to uremic encephalopathy from missed hemodialysis as well as medications. At that time her oxycodone and ropinirole were discontinued Acute respiratory failure with hypoxia Oxygen saturation eat 88% on room air Likely multifactorial related to pulmonary edema from missing dialysis as well as pneumonia Continue supplemental oxygen as needed ESRD on HD , missed HD Friday last HD 02/01 nephrology following Multifocal pneumonia Continue IV antibiotics started 02/01 Follow blood cultures h/o liver transplant continue tacrolimus Hypothyroidism Status post total thyroidectomy TSH, low at 0.14 with free T4 0.88 continue lower dose of synthroid repeat thyroid functions as outpatient Mood continue effexor dvt ppx - allergic to heparin analogs, compression device HCP-sister Wendy Bella [phone] Code status-full code <CHUCKY Weinstein - Last Filed: 02/02/21 14:40> This is a 70-year-old female with history of ESRD on hemodialysis brought to the emergency department and found to have altered mental status, pneumonia and hyperkalemia New onset paroxysmal atrial fibrillation HR elevated overnight, received 1 dose IV metoprolol with good effect. This morning converted back to normal sinus rhythm [id number] score 4, will start renally dosed eliquis per cardiology recommendation Elevated troponin, type 2 NSTEMI likely r/t underlying medical illness/hypoxia on a background of CAD. no chest pain repeat EKG 02/02 showing new t wave inversions seen by cardiology, no need for IV heparin echo pending continue asa, statin will start low dose metoprolol uncontrolled HTN will start norvasc, metoprolol monitor bp closely Hyperkalemia Resolved following dialysis tx w/ calcium gluconate, Kayexalate, sodium bicarb in the ED Metabolic encephalopathy. Improving. Likely secondary to uremia/hyperkalemia Brain CT negative, no focal neurological deficits Oxycodone, clonazepam and ropinirole are on hold h/o previous admission for encephalopathy which was thought to be multifactorial due to uremic encephalopathy from missed hemodialysis as well as medications. At that time her oxycodone and ropinirole were discontinued Acute respiratory failure with hypoxia Oxygen saturation eat 88% on room air Likely multifactorial related to pulmonary edema from missing dialysis as well as pneumonia Continue supplemental oxygen as needed ESRD on HD , missed HD Friday last HD 02/01 nephrology following Multifocal pneumonia Continue IV antibiotics started 11/4 Follow blood cultures h/o liver transplant continue tacrolimus Hypothyroidism Status post total thyroidectomy TSH, low at 0.14 with free T4 0.88 continue lower dose of synthroid repeat thyroid functions as outpatient Mood continue effexor dvt ppx - allergic to heparin analogs, compression device HCP-sister Wendy Bella [phone] Code status-full code Seen/evaluated and discussed with midlevel and I agree withmagdy dye <Juancho Henriquez MD - Last Filed: 02/24/21 16:12> Quality Stroke Does the patient have a stroke diagnosis?: No <CHUCKY Weinstein - Last Filed: 02/02/21 14:40> VTE Prior VTE?: No <CHUCKY Weinstein - Last Filed: 02/02/21 14:40> VTE Risk Level:: Medical - moderate - high <CHUCKY Weinstein - Last Filed: 02/02/21 14:40> VTE Device Contraindication: N/A - Device Ordered <CHUCKY Weinstein - Last Filed: 02/02/21 14:40> VTE Drug Contraindication: N/A - Med Ordered <CHUCKY Weinstein - Last Filed: 02/02/21 14:40>
--- NOTE | 2021-02-02 14:08 | P.PNNP_ITS ---
Subjective Subjective Date of Service: 02/03/21 Principal diagnosis: no complaint ths AM Physical Exam Vital Signs: Vital Signs: Last Vital Signs Temp 98.5 F 02/02/21 07:55 Pulse 90 02/02/21 07:55 Resp 19 02/02/21 07:55 BP 189/98 H 02/02/21 07:55 Pulse Ox 99 02/02/21 07:55 Body Mass Index 25.4 Objective Data Labs CBC & Chem 7: 02/03/21 06:51 02/03/21 06:51 Labs: Laboratory Results - last 24 hr 02/01/21 02/01/21 02/02/21 14:14 16:24 05:54 WBC 11.5 H RBC 3.82 L Hgb 11.4 L Hct 36.1 L MCV 94.5 MCH 29.8 MCHC 31.6 RDW 15.3 Plt Count 140 L MPV 11.0 Immature Gran % (Auto) 0.7 H Neut % (Auto) 73.5 H Lymph % (Auto) 15.8 L [place] % (Auto) 9.1 Eos % (Auto) 0.6 Baso % (Auto) 0.3 Lymph # (Auto) 1.8 [place] # (Auto) 1.0 Eos # (Auto) 0.1 Baso # (Auto) 0.0 Abs Immat Gran (auto) 0.08 H Absolute Neuts (auto) 8.4 H Absolute Nucleated RBC 0.000 Nucleated RBC % (auto) 0.0 Sodium 140 Potassium 5.7 H D Chloride 100 Carbon Dioxide 20 L Anion Gap 26 H BUN 93 H* Creatinine 12.92 H* Estim Creat Clear Calc 4.2 Estimated GFR 3 POC Glucose Random Glucose 97 Calcium 9.1 Magnesium Troponin I High Sens 595.4 H* TSH 0.14 L Free T4 02/02/21 02/02/21 02/02/21 05:54 07:36 07:54 WBC RBC Hgb Hct MCV MCH MCHC RDW Plt Count MPV Immature Gran % (Auto) Neut % (Auto) Lymph % (Auto) [place] % (Auto) Eos % (Auto) Baso % (Auto) Lymph # (Auto) [place] # (Auto) Eos # (Auto) Baso # (Auto) Abs Immat Gran (auto) Absolute Neuts (auto) Absolute Nucleated RBC Nucleated RBC % (auto) Sodium 138 Potassium 4.4 D Chloride 102 Carbon Dioxide 18 L Anion Gap 22 H BUN 34 H D Creatinine 6.36 H* Estim Creat Clear Calc 8.4 Estimated GFR 7 POC Glucose 65 64 Random Glucose 57 L* Calcium 8.1 L D Magnesium 2.4 Troponin I High Sens TSH Free T4 0.88 02/02/21 08:34 WBC RBC Hgb Hct MCV MCH MCHC RDW Plt Count MPV Immature Gran % (Auto) Neut % (Auto) Lymph % (Auto) [place] % (Auto) Eos % (Auto) Baso % (Auto) Lymph # (Auto) [place] # (Auto) Eos # (Auto) Baso # (Auto) Abs Immat Gran (auto) Absolute Neuts (auto) Absolute Nucleated RBC Nucleated RBC % (auto) Sodium Potassium Chloride Carbon Dioxide Anion Gap BUN Creatinine Estim Creat Clear Calc Estimated GFR POC Glucose 108 Random Glucose Calcium Magnesium Troponin I High Sens TSH Free T4 Microbiology Microbiology Results: Microbiology 02/01/21 10:10 Blood - Venous Blood Culture - Preliminary No growth after 24 hours. Procedures Date of Service Date of Service: 02/03/21 Assessment & Plan Time Spent With Patient Time: Total time spent is greater than 50% in coordination of care (as documented) at patient's floor/unit and/or counseling patient: Progress Note: Quality Stroke Does the patient have a stroke diagnosis?: No
[2021-02-02] MEDS: amLODIPine Besylate 5 MG TABLET PO (15:01)
[2021-02-02 15:09] LABS: Procalcitonin 3.43 ng/mL
[2021-02-02] MEDS: Atorvastatin Calcium 20 MG TABLET PO (20:57)
[2021-02-02] MEDS: Apixaban 2.5 MG TABLET PO (20:57)
[2021-02-02] MEDS: Metoprolol Tartrate 25 MG TABLET PO (20:57)
[2021-02-03] VITALS (7 sets, daily range): BP systolic 112–150; BP diastolic 60–69; PULSE 56–68; RESP 17–20; TEMP 36.3–36.6; O2SAT 96–100
--- NOTE | 2021-02-03 00:10 | CONS_ITS ---
DATE OF SERVICE: 02/02/2021 REASON FOR CONSULTATION: Evaluation of ESRD. HISTORY OF PRESENT ILLNESS: Ms. 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 She has been followed by transplant team at [facility] for many years, she has been on intermittent hemodialysis at [facility] via a left upper extremity AV fistula on Friday, , Friday. She was brought in overnight after being found confused at home, she did not show to dialysis on Friday, on as she did not show to dialysis a wellness call was done who called EMS. When EMS came she was in bed, very confused, was brought into the hospital for further evaluation. She was found hypoxic with oxygen saturations in the 88% range showed multifocal pneumonia. She was initiated on IV antibiotics, ceftriaxone and doxycycline. A brain CT showed no evidence of acute abnormalities. Her potassium was 7.8. She was given calcium gluconate, Kayexalate, sodium bicarbonate and was taken for urgent dialysis. This morning she is awake, alert, feels back to her baseline. She reports a history of diarrhea on Friday night, otherwise, she feels no other symptoms. Denies any fevers, chills, headache. She has noticed some yellow sputum production. She is due for dialysis tomorrow. 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 Liver transplantation on long-term immunosuppression. Hypertensive disease. Arthritis. Bronchitis. Liver cirrhosis. Degenerative joint disease. Gastroesophageal reflux disease. Gout. PAST SURGICAL HISTORY: Liver transplantation. Left upper extremity AV fistula. History of TAVR/transcatheter aortic valve replacement and history of colonoscopies. SOCIAL HISTORY: Lives at home by herself. Denies any history of smoking cigarettes or drinking alcohol. Denies illicit drugs. FAMILY HISTORY: Noncontributory. REVIEW OF SYSTEMS: Presently, denies any nausea, vomiting, diarrhea, abdominal pain, melena, headache, visual changes, chest pain, shortness of breath, palpitations. She reports cough with yellowish sputum. Denies any other symptoms on a 10-point review of systems. PHYSICAL EXAMINATION: GENERAL: On physical evaluation, she is alert, oriented x3. VITAL SIGNS: Blood pressure this morning is 142/70, heart rate of 88 per minute. She is on supplemental oxygen. Saturations have been 98% on 2 L nasal cannula. HEENT: Oral moist mucosa. LUNGS: Decreased breath sounds on both bases, right side with rales. HEART: S1, S2, irregular in rate and rhythm. Recent heart rate has been in the range of 88 to 120. ABDOMEN: Soft, nontender. Positive bowel sounds. EXTREMITIES: Showed no ankle edema. Left upper extremity with positive AV fistula, good thrill and good bruit. NEUROLOGIC: Nonfocal. LABORATORY DATA: Rest of the labs: Her potassium is now down to 4.4, bicarbonate is 18, creatinine 6.3 mg/dL. White cell count 11,000, coming down from 14,000; hemoglobin 11.4. COVID test was negative. IMAGING STUDIES: As mentioned above, chest x-ray with multiple patchy opacities consistent with multifocal pneumonia. Abdominal CT showed extensive diverticulosis, few prominent loops of small bowel and a CT scan showed no evidence of acute hemorrhage or abnormalities. IMPRESSION: Ms. Kay is a very pleasant 70-year-old female known to our service for long-term end-stage renal disease associated with calcineurin inhibitor nephrotoxicity on intermittent hemodialysis 3 times a week. 1. End-stage renal disease. 2. Hyperkalemia. 3. Multifocal pneumonia. She has received urgent dialysis, I appreciate medical team assisting, during the clinical presentation she also presented with sinus tachycardia and intraventricular conduction delay per EKGs, likely associated with hyperkalemic changes. This morning, her EKG showed normal sinus rhythm with T-wave inversions, troponins were elevated since admission and essentially unchanged, her volume status is near euvolemic, her potassium has been controlled as mentioned above. RECOMMENDATIONS: I would recommend to continue with IV antibiotics as you are doing for broader spectrum multifocal pneumonia or community-acquired pneumonia. If no improvement, consider Infectious Disease involvement as the patient is long-term immunosuppressed. Consider checking for other pathogens. Regarding atrial fibrillation, consider Cardiology consult. She has been seen in the past by Cardiology at [facility] as she has had a history of TAVR. For now, continue with metoprolol as is amlodipine for blood pressure control. From the ESRD perspective, we can hold off on resuming dialysis until tomorrow, her regular day which I have put orders in the computer system. I will be happy to continue to follow during the hospital stay. Thank you for allowing me to be part of her care. MD ROSANA Galeano/RD / [phone] ERIK
[2021-02-03] MEDS: Doxycycline Hyclate 100 MG in 0.9 % Sodium Chloride 250 ML 166.67 MG IV ×2 (01:01→15:44)
[2021-02-03] MEDS: Levothyroxine Sodium 75 MCG TABLET PO (06:35)
[2021-02-03 07:44] LABS: Hematocrit 30.8 % (37.0-47.0); Hemoglobin 9.7 g/dl (12.0-16.0); Mean Corpuscular HGB Conc 31.5 g/dl (31.0-35.0); Mean Corpuscular Hemoglobin 29.7 pg (27.0-33.0); Mean Corpuscular Volume 94.2 fL (80.0-98.0); Mean Platelet Volume 11.3 fL (9.4-12.3); Platelet Count 119 X10*3/uL (160-400); Red Blood Count 3.27 X10*6/uL (4.20-5.50); Red Cell Distribution Width 14.6 % (11.0-16.0)
[2021-02-03 08:13] LABS: Anion Gap 19 (12-20); Blood Urea Nitrogen 63 mg/dL (9-16); Calcium 7.8 mg/dL (8.4-10.2); Carbon Dioxide 20 mmol/L (22-29); Chloride 100 mmol/L (96-108); Creatinine Clr Calc Pharmacy 6.4; Estimated Glomerular Filt Rate 5; Glucose Random 81 mg/dL (60-115); Sodium 135 mmol/L (135-145)
[2021-02-03] MEDS: Venlafaxine HCL 25 MG TABLET PO (08:22)
[2021-02-03] MEDS: Cholecalciferol (Vitamin D3) 25 MCG TABLET 50 MCG PO (08:22)
[2021-02-03] MEDS: Apixaban 2.5 MG TABLET PO ×2 (08:22→20:35)
[2021-02-03] MEDS: Famotidine 20 MG TABLET PO (08:22)
[2021-02-03] MEDS: allopurinoL 100 MG TABLET PO (08:22)
[2021-02-03] MEDS: 0.9 % Sodium Chloride Flush 3 ML SYRINGE IVFLUSH ×3 (08:22→20:35)
[2021-02-03] MEDS: Aspirin Enteric Coated 81 MG TABLET.DR PO (08:23)
[2021-02-03] MEDS: Tacrolimus 1 MG CAPSULE PO ×2 (08:23→20:35)
[2021-02-03] MEDS: amLODIPine Besylate 5 MG TABLET PO (08:23)
[2021-02-03] MEDS: Folic Acid 1 MG TABLET PO (08:23)
[2021-02-03] MEDS: Metoprolol Tartrate 25 MG TABLET PO (08:44)
--- NOTE | 2021-02-03 12:00 | HO.PM.IMPN ---
Subjective Subjective Date of Service: 02/03/21 Interval History: seen and examined this morning reports episode of chest pressure overnight; resolved; none at this time still having cough, no fever, chills Review of Systems Review of Systems: Yes all other systems are reviewed and are negative Constitutional Constitutional: Denies chills and Denies fever(s) Cardiovascular Cardiovascular: Reports chest pain Respiratory Respiratory: Reports cough Physical Exam Vital Signs: Vital Signs: Last Vital Signs Temp 97.6 F 02/03/21 07:54 Pulse 66 02/03/21 08:44 Resp 20 02/03/21 07:54 BP 131/67 02/03/21 08:44 Pulse Ox 99 02/03/21 07:54 Body Mass Index 25.4 Const: General: comfortable, no acute distress, alert and awake Nutritional Appearance: well nourished HENMT: Other: dry mucous membranes Head: Yes normocephalic and Yes atraumatic Eyes: Sclerae: sclerae normal Pupils: Equal, round and reactive pupils present Resp: Effort & Inspection: normal respiratory effort and no respiratory distress Cardio: Rate: regular rate Rhythm: regular rhythm Heart sounds: Murmur heart sound present GI: Palpation (GI): Soft to palpation and nontender Neuro: Cranial nerves: Yes CN's II-XII intact bilaterally, Yes Equal, round and reactive pupils present and Yes Bilaterally intact EOM present Extrem: Other: no leg edema Objective Data Active Medications Acetaminophen (Acetaminophen 325 Mg Tablet) 650 mg PO Q6H PRN PRN Reason: Pain, Mild (Pain Scale 1-3) Albuterol Sulfate (Albuterol Sulfate 90 Mcg 8 Gm Inhaler) 1 puff INHALE Q4H PRN PRN Reason: Shortness Of Breath Or Wheezin Allopurinol (Allopurinol 100 Mg Tablet) 100 mg PO DAILY [facility] Last Admin: 02/03/21 08:22 Dose: 100 mg Documented by: MAX Amlodipine Besylate (Amlodipine Besylate 5 Mg Tablet) 5 mg PO DAILY [facility]; Protocol Last Admin: 02/03/21 08:23 Dose: 5 mg Documented by: MAX Aspirin (Aspirin Enteric Coated 81 Mg Tablet.) 81 mg PO DAILY [facility] Last Admin: 02/03/21 08:23 Dose: 81 mg Documented by: MAX Atorvastatin Calcium (Atorvastatin Calcium 20 Mg Tablet) 20 mg PO BEDTIME [facility] Last Admin: 02/02/21 20:57 Dose: 20 mg Documented by: ANTKALINA Calcium Carbonate (Calcium Carbonate 500 Mg Tablet) 500 mg PO DAILY PRN PRN Reason: DIALYSIS Docusate Sodium (Docusate Sodium 100 Mg Capsule) 100 mg PO DAILY PRN PRN Reason: Constipation Famotidine (Famotidine 20 Mg Tablet) 20 mg PO DAILY [facility] Last Admin: 02/03/21 08:22 Dose: 20 mg Documented by: MAX Folic Acid (Folic Acid 1 Mg Tablet) 1 mg PO DAILY [facility] Last Admin: 02/03/21 08:23 Dose: 1 mg Documented by: MAX Ceftriaxone Sodium 1 gm/ (Sodium Chloride) 50 mls @ 100 mls/hr IV Q24H [facility] Last Infusion: 02/02/21 11:39 Dose: 0 mls/hr Documented by: REJI Doxycycline Hyclate 100 mg/ (Sodium Chloride) 250 mls @ 166.67 mls/hr IV Q12H [facility] Last Infusion: 02/03/21 03:21 Dose: 0 mls/hr Documented by: TRUNG Levothyroxine Sodium (Levothyroxine Sodium 75 Mcg Tablet) 75 mcg PO DAILY@0630 [facility] Last Admin: 02/03/21 06:35 Dose: 75 mcg Documented by: ANTOIC Lidocaine HCl (Lidocaine Hcl 1 % Mpf 2 Ml Ampul) 0.5 ml SUBCUT TUTHSA@1645 [facility] Metoprolol Tartrate (Metoprolol Tartrate 50 Mg Tablet) 50 mg PO BID [facility]; Protocol Ondansetron HCl (Ondansetron Hcl 4 Mg/2 Ml Vial) 4 mg IVPUSH Q8H PRN PRN Reason: Nausea and Vomiting Pharmacy Consult (Consult Rx Perform Med Rec) 1 each MISCELLANE ONCE PRN PRN Reason: Consult order Sodium Chloride (0.9 % Sodium Chloride Flush 3 Ml Syringe) 3 ml IVFLUSH QSHIFT [facility] Last Admin: 02/03/21 08:22 Dose: 3 ml Documented by: MAX Tacrolimus (Tacrolimus 1 Mg Capsule) 1 mg PO BID [facility] Last Admin: 02/03/21 08:23 Dose: 1 mg Documented by: MAX Venlafaxine HCl (Venlafaxine Hcl 25 Mg Tablet) 25 mg PO DAILY [facility] Last Admin: 02/03/21 08:22 Dose: 25 mg Documented by: MAX Vitamin D (Cholecalciferol (Vitamin D3) 25 Mcg Tablet) 50 mcg PO DAILY [facility] Last Admin: 02/03/21 08:22 Dose: 50 mcg Documented by: MAX Labs CBC & Chem 7: 02/03/21 06:51 02/03/21 06:51 Labs: Laboratory Results - last 24 hr 02/02/21 02/03/21 02/03/21 08:54 06:51 06:51 MCV 94.2 MCH 29.7 MCHC 31.5 RDW 14.6 Plt Count 119 L MPV 11.3 Absolute Nucleated RBC 0.000 Nucleated RBC % (auto) 0.0 Anion Gap 19 Estim Creat Clear Calc 6.4 Estimated GFR 5 Random Glucose 81 Calcium 7.8 L Procalcitonin 3.43 Microbiology Microbiology Results: Microbiology 02/01/21 14:14 Blood Culture - Preliminary Blood - Venous No growth after 24 hours. 02/01/21 10:10 Blood Culture - Preliminary Blood - Venous No growth after 24 hours. Assessment and Plan (1) Paroxysmal atrial fibrillation: Status: Acute (2) Elevated troponin: Status: Acute (3) Pneumonia: Status: Acute (4) AMS (altered mental status): Status: Acute Assessment and Plan: This is a 70-year-old female with history of ESRD on hemodialysis brought to the emergency department and found to have altered mental status, pneumonia and hyperkalemia Unstable angina cardiac enzymes initially elevated on admission, thought to be secondary to acute illness/pneumonia. Had episode of chest pain overnight and given history of CAD, will treat for UA. repeat EKG 02/02 showing new twave inversions echo with WMA continue asa, statin, increase dose of metoprolol from 25 b.i.d. to 50 b.i.d. repeat trop now had been started on Eliquis for afib, cardiology rec d/c Eliquis and start IV heparin drip, but pt reports hives with heparin, will d/w phamacy about cross re-activity with lovenox New onset paroxysmal atrial fibrillation Converted back to NSR yesterdday [id number] score 4, started on renally dosed eliquis per cardiology recommendation. see above for update on AC HTN BP improved with addition of medication continue norvasc, increased dose metoprolol monitor bp closely Hyperkalemia Resolved following dialysis tx w/ calcium gluconate, Kayexalate, sodium bicarb in the ED Metabolic encephalopathy. Improving. seems back to baseline Likely secondary to uremia/hyperkalemia Brain CT negative, no focal neurological deficits Oxycodone, clonazepam and ropinirole are on hold h/o previous admission for encephalopathy which was thought to be multifactorial due to uremic encephalopathy from missed hemodialysis as well as medications. At that time her oxycodone and ropinirole were discontinued Acute respiratory failure with hypoxia Oxygen saturation eat 88% on room air. still requiring 6L NC Likely multifactorial related to pulmonary edema from missing dialysis as well as pneumonia Continue supplemental oxygen as needed ESRD on HD , , missed HD Friday last HD 02/01, dialysis planned for today nephrology following Multifocal pneumonia Continue IV antibiotics started 02/01 Follow blood cultures h/o liver transplant continue tacrolimus Hypothyroidism Status post total thyroidectomy TSH, low at 0.14 with free T4 0.88 continue lower dose of synthroid repeat thyroid functions as outpatient Mood continue effexor dvt ppx - allergic to heparin analogs, compression device HCP-sister Wendy Bella [phone] Code status-full code attending: dr. allen Quality Stroke Does the patient have a stroke diagnosis?: No VTE Prior VTE?: No VTE Risk Level:: Medical - moderate - high VTE Device Contraindication: N/A - Device Ordered VTE Drug Contraindication: N/A - Med Ordered
--- NOTE | 2021-02-03 13:01 | PM.PNCARD ---
Subjective Subjective Date of Service: 02/03/21 Principal diagnosis: no complaint ths AM Interval history: Patient developed chest heaviness, described as somebody sitting her chest last night. This resolved. No new EKGs or troponins were done. Patient currently comfortable. Undergoing dialysis. Denies any worsening shortness of breath. Review of Systems Constitutional: Reports malaise and Reports weakness Cardiovascular: Reports chest pain at rest and Reports dyspnea Respiratory: Reports cough and Reports dyspnea Gastrointestinal: Reports no additional gastrointestinal complaints Genitourinary: Reports no additional female genitourinary complaints Skin/Breast: Reports system reviewed and no additional complaints, except as docu Reports system reviewed and no additional complaints, except as documented and Reports weakness Physical Exam Vital Signs: Last Vital Signs Temp 97.6 F 02/03/21 07:54 Pulse 66 02/03/21 08:44 Resp 20 02/03/21 07:54 BP 131/67 02/03/21 08:44 Pulse Ox 99 02/03/21 07:54 Body Mass Index 25.4 Const General: cooperative, comfortable, no acute distress, alert, awake and tired appearing Nutritional Appearance: average body habitus Orientation/consciousness: patient oriented x3 Neck Neck: Yes trachea midline, Yes supple and Yes no JVD Resp Effort & Inspection: normal respiratory effort Auscultation: crackles bilateral at the base Cardio Jugular venous distension: no JVD Palpation: normal PMI Rate: regular rate Rhythm: regular rhythm Heart sounds: S1 normal heart sound present, S2 normal heart sound present, no click, no gallops and Murmur heart sound present systolic GI Auscultation: normal bowel sounds Skin General skin exam: no rashes or lesions noted Neuro General: patient oriented x3 and no focal motor deficits Extrem General: Yes no clubbing, cyanosis or edema Results Labs and Meds Result diagrams: 02/03/21 06:51 02/03/21 06:51 Lab results: Laboratory Results - last 24 hr 02/02/21 02/03/21 02/03/21 08:54 06:51 06:51 WBC 8.0 RBC 3.27 L Hgb 9.7 L Hct 30.8 L MCV 94.2 MCH 29.7 MCHC 31.5 RDW 14.6 Plt Count 119 L MPV 11.3 Absolute Nucleated RBC 0.000 Nucleated RBC % (auto) 0.0 Sodium 135 Potassium 4.0 Chloride 100 Carbon Dioxide 20 L Anion Gap 19 BUN 63 H D Creatinine 8.43 H* Estim Creat Clear Calc 6.4 Estimated GFR 5 Random Glucose 81 Calcium 7.8 L Procalcitonin 3.43 Progress Note: A&P Assessment and plan (1) Unstable angina: Status: Acute Assessment and Plan: Patient developed chest discomfort last night, with abnormal EKG prior to that and elevated troponin admission with prior CAD. Highly likely for acute coronary syndrome/unstable angina. This needs to be evaluated further in treated further. Continue metoprolol can maximize to 50 b.i.d.. Continue Norvasc. If develops recurrent chest discomfort use nitroglycerin as needed. Repeat EKGs and troponins. Start on parenteral anticoagulation. Hold on oral Eliquis therapy. Will require inpatient myocardial perfusion imaging. If she develops unrelenting chest discomfort or acute syndrome, will further require transfer for cardiac catheterization urgently. Will follow with you closely. Please keep me informed Continue high-intensity statin therapy. Also continue low-dose aspirin therapy. (2) CHF exacerbation: Status: Acute Assessment and Plan: Presentation with acute pulmonary edema. This was probably due to missing dialysis, ischemic etiology cannot be entirely ruled out. Pursue aggressive treatment for myocardial ischemia as above. Ischemic workup. Continue dialysis sessions as prescribed. Continue aggressive control of blood pressure. Fall Risk Details Current Medications: Current Medications Acetaminophen (Acetaminophen 325 Mg Tablet) 650 mg PO Q6H PRN PRN Reason: Pain, Mild (Pain Scale 1-3) Albuterol Sulfate (Albuterol Sulfate 90 Mcg 8 Gm Inhaler) 1 puff INHALE Q4H PRN PRN Reason: Shortness Of Breath Or Wheezin Allopurinol (Allopurinol 100 Mg Tablet) 100 mg PO DAILY [facility] Last Admin: 02/03/21 08:22 Dose: 100 mg Documented by: Amlodipine Besylate (Amlodipine Besylate 5 Mg Tablet) 5 mg PO DAILY [facility]; Protocol Last Admin: 02/03/21 08:23 Dose: 5 mg Documented by: Aspirin (Aspirin Enteric Coated 81 Mg Tablet.) 81 mg PO DAILY [facility] Last Admin: 02/03/21 08:23 Dose: 81 mg Documented by: Atorvastatin Calcium (Atorvastatin Calcium 20 Mg Tablet) 20 mg PO BEDTIME [facility] Last Admin: 02/02/21 20:57 Dose: 20 mg Documented by: Calcium Carbonate (Calcium Carbonate 500 Mg Tablet) 500 mg PO DAILY PRN PRN Reason: DIALYSIS Docusate Sodium (Docusate Sodium 100 Mg Capsule) 100 mg PO DAILY PRN PRN Reason: Constipation Famotidine (Famotidine 20 Mg Tablet) 20 mg PO DAILY [facility] Last Admin: 02/03/21 08:22 Dose: 20 mg Documented by: Folic Acid (Folic Acid 1 Mg Tablet) 1 mg PO DAILY [facility] Last Admin: 02/03/21 08:23 Dose: 1 mg Documented by: Ceftriaxone Sodium 1 gm/ (Sodium Chloride) 50 mls @ 100 mls/hr IV Q24H [facility] Last Infusion: 02/02/21 11:39 Dose: Infused Documented by: Doxycycline Hyclate 100 mg/ (Sodium Chloride) 250 mls @ 166.67 mls/hr IV Q12H [facility] Last Infusion: 02/03/21 03:21 Dose: Infused Documented by: Levothyroxine Sodium (Levothyroxine Sodium 75 Mcg Tablet) 75 mcg PO DAILY@0630 [facility] Last Admin: 02/03/21 06:35 Dose: 75 mcg Documented by: Lidocaine HCl (Lidocaine Hcl 1 % Mpf 2 Ml Ampul) 0.5 ml SUBCUT TUTHSA@1645 [facility] Metoprolol Tartrate (Metoprolol Tartrate 50 Mg Tablet) 50 mg PO BID [facility]; Protocol Ondansetron HCl (Ondansetron Hcl 4 Mg/2 Ml Vial) 4 mg IVPUSH Q8H PRN PRN Reason: Nausea and Vomiting Pharmacy Consult (Consult Rx Perform Med Rec) 1 each MISCELLANE ONCE PRN PRN Reason: Consult order Sodium Chloride (0.9 % Sodium Chloride Flush 3 Ml Syringe) 3 ml IVFLUSH QSHIFT [facility] Last Admin: 02/03/21 08:22 Dose: 3 ml Documented by: Tacrolimus (Tacrolimus 1 Mg Capsule) 1 mg PO BID [facility] Last Admin: 02/03/21 08:23 Dose: 1 mg Documented by: Venlafaxine HCl (Venlafaxine Hcl 25 Mg Tablet) 25 mg PO DAILY [facility] Last Admin: 02/03/21 08:22 Dose: 25 mg Documented by: Vitamin D (Cholecalciferol (Vitamin D3) 25 Mcg Tablet) 50 mcg PO DAILY [facility] Last Admin: 02/03/21 08:22 Dose: 50 mcg Documented by: Time Spent With Patient Time: Total time spent is greater than 50% in coordination of care (as documented) at patient's floor/unit and/or counseling patient: Time with patient: 25 - 35 minutes Progress Note: Quality Stroke Does the patient have a stroke diagnosis?: No Procedures Date of Service Date of Service: 02/03/21
[2021-02-03 13:17] LABS: Troponin-I High Sensitivity 301.3 ng/L (<3.5-17.0)
--- NOTE | 2021-02-03 13:49 | PM.PNNEP ---
Subjective Subjective Date of Service: 02/03/21 Principal diagnosis: no complaint ths AM Interval history: no concerns during HD Physical Exam Vital Signs: Vital Signs: Last Vital Signs Temp 97.6 F 02/03/21 07:54 Pulse 66 02/03/21 08:44 Resp 20 02/03/21 07:54 BP 131/67 02/03/21 08:44 Pulse Ox 99 02/03/21 07:54 Body Mass Index 25.4 oral moist mucosa lungs decreased BSs on bases s1s2 abd soft +BSs ext no edema LUE AVF OK Objective Data Labs CBC & Chem 7: 02/03/21 06:51 02/03/21 06:51 Labs: Laboratory Results - last 24 hr 02/02/21 02/03/21 02/03/21 08:54 06:51 06:51 WBC 8.0 RBC 3.27 L Hgb 9.7 L Hct 30.8 L MCV 94.2 MCH 29.7 MCHC 31.5 RDW 14.6 Plt Count 119 L MPV 11.3 Absolute Nucleated RBC 0.000 Nucleated RBC % (auto) 0.0 Sodium 135 Potassium 4.0 Chloride 100 Carbon Dioxide 20 L Anion Gap 19 BUN 63 H D Creatinine 8.43 H* Estim Creat Clear Calc 6.4 Estimated GFR 5 Random Glucose 81 Calcium 7.8 L Troponin I High Sens Procalcitonin 3.43 02/03/21 12:30 WBC RBC Hgb Hct MCV MCH MCHC RDW Plt Count MPV Absolute Nucleated RBC Nucleated RBC % (auto) Sodium Potassium Chloride Carbon Dioxide Anion Gap BUN Creatinine Estim Creat Clear Calc Estimated GFR Random Glucose Calcium Troponin I High Sens 301.3 H* Procalcitonin Microbiology Microbiology Results: Microbiology 02/01/21 10:10 Blood - Venous Blood Culture - Preliminary No growth after 48 hours. 02/01/21 14:14 Blood - Venous Blood Culture - Preliminary No growth after 24 hours. Procedures Date of Service Date of Service: 02/03/21 Assessment & Plan Assessment and plan (1) End-stage renal disease (ESRD): Status: Acute Assessment and Plan: COntinue with HD rx while inpatient Antibx therapy for PNA meds reviewed BP stable on DC plan to continue HD on TTS at [facility] Time Spent With Patient Time: Total time spent is greater than 50% in coordination of care (as documented) at patient's floor/unit and/or counseling patient: Progress Note: Quality Stroke Does the patient have a stroke diagnosis?: No
[2021-02-03] MEDS: cefTRIAXone sodium 1 GM in 0.9 % Sodium Chloride 50 ML IV (14:47)
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
[2021-02-03] MEDS: Metoprolol Tartrate 50 MG TABLET PO (20:35)
[2021-02-03] MEDS: Atorvastatin Calcium 20 MG TABLET PO (20:35)
[2021-02-03] MEDS: Acetaminophen 325 MG TABLET 650 MG PO (20:36)
[2021-02-04] VITALS (9 sets, daily range): BP systolic 117–155; BP diastolic 49–74; PULSE 51–69; RESP 18–20; TEMP 36.2–36.6; O2SAT 92–100
[2021-02-04 06:15] LABS: MANUAL DIFF FLAG NO
[2021-02-04 06:23] LABS: Basophils Percent Auto 0.4 % (0-2); Eosinophils Absolute Auto 0.3 X10*3/uL (0.0-0.4); Eosinophils Percent Auto 3.9 % (0-4); Hematocrit 31.8 % (37.0-47.0); Hemoglobin 10.2 g/dl (12.0-16.0); Imm Gran Abs Auto 0.02 X10*3/uL (0.00-0.03); Imm Gran Pct Auto 0.3 % (0.0-0.4); Lymphocytes Absolute Auto 1.7 X10*3/uL (1.2-4.9); Lymphocytes Percent Auto 23.3 % (20-40); Mean Corpuscular HGB Conc 32.1 g/dl (31.0-35.0); Mean Corpuscular Hemoglobin 29.6 pg (27.0-33.0); Mean Corpuscular Volume 92.2 fL (80.0-98.0); Mean Platelet Volume 12.1 fL (9.4-12.3); Monocytes Percent Auto 12.9 % (2-11); Neutrophils Absolute Auto 4.4 x10*3/uL (2.0-8.3); Neutrophils Percent Auto 59.2 % (45-73); Platelet Count 148 X10*3/uL (160-400); Red Blood Count 3.45 X10*6/uL (4.20-5.50); Red Cell Distribution Width 14.5 % (11.0-16.0); White Blood Count 7.4 X10*3/uL (4.8-10.8)
[2021-02-04] MEDS: Levothyroxine Sodium 75 MCG TABLET PO (06:40)
[2021-02-04] MEDS: Doxycycline Hyclate 100 MG in 0.9 % Sodium Chloride 250 ML 166.67 MG IV ×2 (06:40→15:24)
[2021-02-04 07:16] LABS: Anion Gap 16 (12-20); Blood Urea Nitrogen 44 mg/dL (9-16); Calcium 8.4 mg/dL (8.4-10.2); Carbon Dioxide 25 mmol/L (22-29); Chloride 102 mmol/L (96-108); Creatinine Clr Calc Pharmacy 8.7; Estimated Glomerular Filt Rate 7; Glucose Random 75 mg/dL (60-115); Potassium 4.2 mmol/L (3.3-5.1); Sodium 139 mmol/L (135-145)
[2021-02-04] MEDS: allopurinoL 100 MG TABLET PO (09:10)
[2021-02-04] MEDS: Aspirin Enteric Coated 81 MG TABLET.DR PO (09:10)
[2021-02-04] MEDS: Acetaminophen 325 MG TABLET 650 MG PO ×2 (09:10→17:13)
[2021-02-04] MEDS: Folic Acid 1 MG TABLET PO (09:10)
[2021-02-04] MEDS: Famotidine 20 MG TABLET PO (09:10)
[2021-02-04] MEDS: Venlafaxine HCL 25 MG TABLET PO (09:10)
[2021-02-04] MEDS: Apixaban 2.5 MG TABLET PO ×2 (09:10→23:05)
[2021-02-04] MEDS: Tacrolimus 1 MG CAPSULE PO ×2 (09:11→23:05)
[2021-02-04] MEDS: Cholecalciferol (Vitamin D3) 25 MCG TABLET 50 MCG PO (09:14)
[2021-02-04] MEDS: amLODIPine Besylate 5 MG TABLET PO (09:19)
[2021-02-04] MEDS: Metoprolol Tartrate 50 MG TABLET PO ×2 (09:20→23:05)
--- NOTE | 2021-02-04 11:15 | PM.PNCARD ---
Subjective Subjective Date of Service: 02/04/21 Principal diagnosis: no complaint ths AM Interval history: NO chest pain. Denies any worsening shortness of breath. Complains of some headache and seeing floaters. Being evaluated by hospitalist team. Blood pressure is slightly elevated again today. Review of Systems Constitutional: Reports headache(s) and Reports malaise Eyes: Reports floaters Reports headache(s) Cardiovascular: Reports no additional cardiovascular complaints Respiratory: Reports no additional respiratory complaints Musculoskeletal: Reports no additional musculoskeletal complaints Reports headache(s) Physical Exam Vital Signs: Last Vital Signs Temp 97.4 F 02/04/21 08:00 Pulse 63 02/04/21 09:20 Resp 20 02/04/21 08:00 BP 155/73 H 02/04/21 09:20 Pulse Ox 100 02/04/21 08:00 Body Mass Index 25.4 Const General: cooperative, comfortable, alert, awake and tired appearing Nutritional Appearance: average body habitus Orientation/consciousness: patient oriented x3 Neck Neck: Yes trachea midline, Yes supple and Yes no JVD Resp Effort & Inspection: normal respiratory effort Auscultation: clear to auscultation bilaterally Cardio Jugular venous distension: no JVD Rate: regular rate Rhythm: regular rhythm Heart sounds: S1 normal heart sound present, S2 normal heart sound present, no click, no gallops and no murmurs GI Auscultation: normal bowel sounds Skin General skin exam: no rashes or lesions noted and ecchymosis Neuro General: patient oriented x3 and no focal motor deficits Extrem General: Yes no clubbing, cyanosis or edema Results Labs and Meds Result diagrams: 02/04/21 06:06 02/04/21 06:06 Lab results: Laboratory Results - last 24 hr 02/03/21 02/04/21 02/04/21 12:30 06:06 06:06 WBC 7.4 RBC 3.45 L Hgb 10.2 L Hct 31.8 L MCV 92.2 MCH 29.6 MCHC 32.1 RDW 14.5 Plt Count 148 L MPV 12.1 Immature Gran % (Auto) 0.3 Neut % (Auto) 59.2 Lymph % (Auto) 23.3 [place] % (Auto) 12.9 H Eos % (Auto) 3.9 Baso % (Auto) 0.4 Lymph # (Auto) 1.7 [place] # (Auto) 1.0 Eos # (Auto) 0.3 Baso # (Auto) 0.0 Abs Immat Gran (auto) 0.02 Absolute Neuts (auto) 4.4 Absolute Nucleated RBC 0.000 Nucleated RBC % (auto) 0.0 Sodium 139 Potassium 4.2 Chloride 102 Carbon Dioxide 25 Anion Gap 16 BUN 44 H Creatinine 6.15 H* Estim Creat Clear Calc 8.7 Estimated GFR 7 Random Glucose 75 Calcium 8.4 D Troponin I High Sens 301.3 H* Progress Note: A&P Assessment and plan (1) Unstable angina: Status: Acute Assessment and Plan: Unstable angina with no recurrent chest pain. Her troponins had down trended yesterday. EKG still shows T-wave inversion in anterolateral leads. However she is allergic to heparin and given her N/C renal disease not a candidate for Lovenox. She was continued on Eliquis therapy. Continue aspirin therapy. Continue high-intensity statin therapy. Continue metoprolol therapy. Maximize Norvasc. Inpatient stress test tomorrow (2) CHF exacerbation: Status: Acute Assessment and Plan: Pulmonary edema on presentation, could be ischemic in addition to missing her dialysis session. Clinically doing well. Continue with dialysis. Continue management of hypertension. See above. Low-salt diet (3) Paroxysmal atrial fibrillation: Status: Acute Assessment and Plan: Paroxysmal atrial fibrillation, currently suppressed. No recurrence since then. Continue Eliquis. Continue metoprolol therapy. Will follow with you. Fall Risk Details Current Medications: Current Medications Acetaminophen (Acetaminophen 325 Mg Tablet) 650 mg PO Q6H PRN PRN Reason: Pain, Mild (Pain Scale 1-3) Last Admin: 02/04/21 09:10 Dose: 650 mg Documented by: Albuterol Sulfate (Albuterol Sulfate 90 Mcg 8 Gm Inhaler) 1 puff INHALE Q4H PRN PRN Reason: Shortness Of Breath Or Wheezin Allopurinol (Allopurinol 100 Mg Tablet) 100 mg PO DAILY [facility] Last Admin: 02/04/21 09:10 Dose: 100 mg Documented by: Amlodipine Besylate (Amlodipine Besylate 5 Mg Tablet) 5 mg PO DAILY [facility]; Protocol Last Admin: 02/04/21 09:19 Dose: 5 mg Documented by: Apixaban (Apixaban 2.5 Mg Tablet) 2.5 mg PO BID [facility] Last Admin: 02/04/21 09:10 Dose: 2.5 mg Documented by: Aspirin (Aspirin Enteric Coated 81 Mg Tablet.) 81 mg PO DAILY [facility] Last Admin: 02/04/21 09:10 Dose: 81 mg Documented by: Atorvastatin Calcium (Atorvastatin Calcium 20 Mg Tablet) 20 mg PO BEDTIME [facility] Last Admin: 02/03/21 20:35 Dose: 20 mg Documented by: Calcium Carbonate (Calcium Carbonate 500 Mg Tablet) 500 mg PO DAILY PRN PRN Reason: DIALYSIS Docusate Sodium (Docusate Sodium 100 Mg Capsule) 100 mg PO DAILY PRN PRN Reason: Constipation Famotidine (Famotidine 20 Mg Tablet) 20 mg PO DAILY [facility] Last Admin: 02/04/21 09:10 Dose: 20 mg Documented by: Folic Acid (Folic Acid 1 Mg Tablet) 1 mg PO DAILY [facility] Last Admin: 02/04/21 09:10 Dose: 1 mg Documented by: Ceftriaxone Sodium 1 gm/ (Sodium Chloride) 50 mls @ 100 mls/hr IV Q24H [facility] Last Infusion: 02/03/21 15:28 Dose: Infused Documented by: Doxycycline Hyclate 100 mg/ (Sodium Chloride) 250 mls @ 166.67 mls/hr IV Q12H [facility] Last Infusion: 02/04/21 08:23 Dose: Infused Documented by: Levothyroxine Sodium (Levothyroxine Sodium 75 Mcg Tablet) 75 mcg PO DAILY@0630 [facility] Last Admin: 02/04/21 06:40 Dose: 75 mcg Documented by: Lidocaine HCl (Lidocaine Hcl 1 % Mpf 2 Ml Ampul) 0.5 ml SUBCUT TUTHSA@1645 [facility] Last Admin: 02/03/21 17:19 Dose: Not Given Documented by: Metoprolol Tartrate (Metoprolol Tartrate 50 Mg Tablet) 50 mg PO BID [facility]; Protocol Last Admin: 02/04/21 09:20 Dose: 50 mg Documented by: Ondansetron HCl (Ondansetron Hcl 4 Mg/2 Ml Vial) 4 mg IVPUSH Q8H PRN PRN Reason: Nausea and Vomiting Pharmacy Consult (Consult Rx Perform Med Rec) 1 each MISCELLANE ONCE PRN PRN Reason: Consult order Sodium Chloride (0.9 % Sodium Chloride Flush 3 Ml Syringe) 3 ml IVFLUSH QSHIFT [facility] Last Admin: 02/04/21 08:23 Dose: Not Given Documented by: Tacrolimus (Tacrolimus 1 Mg Capsule) 1 mg PO BID [facility] Last Admin: 02/04/21 09:11 Dose: 1 mg Documented by: Venlafaxine HCl (Venlafaxine Hcl 25 Mg Tablet) 25 mg PO DAILY [facility] Last Admin: 02/04/21 09:10 Dose: 25 mg Documented by: Vitamin D (Cholecalciferol (Vitamin D3) 25 Mcg Tablet) 50 mcg PO DAILY [facility] Last Admin: 02/04/21 09:14 Dose: 50 mcg Documented by: Time Spent With Patient Time: Total time spent is greater than 50% in coordination of care (as documented) at patient's floor/unit and/or counseling patient: Time with patient: 25 - 35 minutes Progress Note: Quality Stroke Does the patient have a stroke diagnosis?: No Procedures Date of Service Date of Service: 02/04/21
--- NOTE | 2021-02-04 11:29 | HO.PM.IMPN ---
Subjective Subjective Date of Service: 02/04/21 Interval History: Seen and examined this morning Follow-up for encephalopathy, hyperkalemia, pneumonia reporting headache with floaters in both eyes no more chest pressure Review of Systems Review of Systems: Yes all other systems are reviewed and are negative Constitutional Constitutional: Denies chills and Denies fever(s) Cardiovascular Cardiovascular: Denies chest pain Gastrointestinal Gastrointestinal: Denies abdominal pain Physical Exam Vital Signs: Vital Signs: Last Vital Signs Temp 97.4 F 02/04/21 08:00 Pulse 63 02/04/21 09:20 Resp 20 02/04/21 08:00 BP 155/73 H 02/04/21 09:20 Pulse Ox 100 02/04/21 08:00 Body Mass Index 25.4 Const: General: comfortable, no acute distress, alert and awake Nutritional Appearance: well nourished Orientation/consciousness: oriented to person and oriented to place HENMT: Other: dry mucous membranes Head: Yes normocephalic and Yes atraumatic Eyes: Sclerae: sclerae normal Pupils: Equal, round and reactive pupils present Resp: Effort & Inspection: normal respiratory effort and no respiratory distress Cardio: Rate: regular rate Rhythm: regular rhythm Heart sounds: Murmur heart sound present GI: Palpation (GI): Soft to palpation and nontender Neuro: General: oriented to person and oriented to place Cranial nerves: Yes CN's II-XII intact bilaterally, Yes Equal, round and reactive pupils present and Yes Bilaterally intact EOM present Extrem: Other: no leg edema Objective Data Active Medications Acetaminophen (Acetaminophen 325 Mg Tablet) 650 mg PO Q6H PRN PRN Reason: Pain, Mild (Pain Scale 1-3) Last Admin: 02/04/21 09:10 Dose: 650 mg Documented by: MAX Albuterol Sulfate (Albuterol Sulfate 90 Mcg 8 Gm Inhaler) 1 puff INHALE Q4H PRN PRN Reason: Shortness Of Breath Or Wheezin Allopurinol (Allopurinol 100 Mg Tablet) 100 mg PO DAILY [facility] Last Admin: 02/04/21 09:10 Dose: 100 mg Documented by: MAX Amlodipine Besylate (Amlodipine Besylate 5 Mg Tablet) 5 mg PO DAILY [facility]; Protocol Last Admin: 02/04/21 09:19 Dose: 5 mg Documented by: MAX Apixaban (Apixaban 2.5 Mg Tablet) 2.5 mg PO BID [facility] Last Admin: 02/04/21 09:10 Dose: 2.5 mg Documented by: MAX Aspirin (Aspirin Enteric Coated 81 Mg Tablet.) 81 mg PO DAILY [facility] Last Admin: 02/04/21 09:10 Dose: 81 mg Documented by: MAX Atorvastatin Calcium (Atorvastatin Calcium 20 Mg Tablet) 20 mg PO BEDTIME [facility] Last Admin: 02/03/21 20:35 Dose: 20 mg Documented by: TRUNG Calcium Carbonate (Calcium Carbonate 500 Mg Tablet) 500 mg PO DAILY PRN PRN Reason: DIALYSIS Docusate Sodium (Docusate Sodium 100 Mg Capsule) 100 mg PO DAILY PRN PRN Reason: Constipation Famotidine (Famotidine 20 Mg Tablet) 20 mg PO DAILY [facility] Last Admin: 02/04/21 09:10 Dose: 20 mg Documented by: MAX Folic Acid (Folic Acid 1 Mg Tablet) 1 mg PO DAILY [facility] Last Admin: 02/04/21 09:10 Dose: 1 mg Documented by: MAX Ceftriaxone Sodium 1 gm/ (Sodium Chloride) 50 mls @ 100 mls/hr IV Q24H [facility] Last Infusion: 02/03/21 15:28 Dose: 0 mls/hr Documented by: MAX Doxycycline Hyclate 100 mg/ (Sodium Chloride) 250 mls @ 166.67 mls/hr IV Q12H [facility] Last Infusion: 02/04/21 08:23 Dose: 0 mls/hr Documented by: MAX Levothyroxine Sodium (Levothyroxine Sodium 75 Mcg Tablet) 75 mcg PO DAILY@0630 [facility] Last Admin: 02/04/21 06:40 Dose: 75 mcg Documented by: TRUNG Lidocaine HCl (Lidocaine Hcl 1 % Mpf 2 Ml Ampul) 0.5 ml SUBCUT TUTHSA@1645 [facility] Last Admin: 02/03/21 17:19 Dose: Not Given Documented by: MAX Non-Admin Reason: Given in Dialysis Metoprolol Tartrate (Metoprolol Tartrate 50 Mg Tablet) 50 mg PO BID [facility]; Protocol Last Admin: 02/04/21 09:20 Dose: 50 mg Documented by: MAX Ondansetron HCl (Ondansetron Hcl 4 Mg/2 Ml Vial) 4 mg IVPUSH Q8H PRN PRN Reason: Nausea and Vomiting Pharmacy Consult (Consult Rx Perform Med Rec) 1 each MISCELLANE ONCE PRN PRN Reason: Consult order Sodium Chloride (0.9 % Sodium Chloride Flush 3 Ml Syringe) 3 ml IVFLUSH QSHIFT [facility] Last Admin: 02/04/21 08:23 Dose: Not Given Documented by: MAX Non-Admin Reason: IV Running Tacrolimus (Tacrolimus 1 Mg Capsule) 1 mg PO BID [facility] Last Admin: 02/04/21 09:11 Dose: 1 mg Documented by: MAX Venlafaxine HCl (Venlafaxine Hcl 25 Mg Tablet) 25 mg PO DAILY [facility] Last Admin: 02/04/21 09:10 Dose: 25 mg Documented by: MAX Vitamin D (Cholecalciferol (Vitamin D3) 25 Mcg Tablet) 50 mcg PO DAILY [facility] Last Admin: 02/04/21 09:14 Dose: 50 mcg Documented by: MAX Labs CBC & Chem 7: 02/04/21 06:06 02/04/21 06:06 Labs: Laboratory Results - last 24 hr 02/03/21 02/04/21 02/04/21 12:30 06:06 06:06 MCV 92.2 MCH 29.6 MCHC 32.1 RDW 14.5 Plt Count 148 L MPV 12.1 Immature Gran % (Auto) 0.3 Neut % (Auto) 59.2 Lymph % (Auto) 23.3 [place] % (Auto) 12.9 H Eos % (Auto) 3.9 Baso % (Auto) 0.4 Lymph # (Auto) 1.7 [place] # (Auto) 1.0 Eos # (Auto) 0.3 Baso # (Auto) 0.0 Abs Immat Gran (auto) 0.02 Absolute Neuts (auto) 4.4 Absolute Nucleated RBC 0.000 Nucleated RBC % (auto) 0.0 Anion Gap 16 Estim Creat Clear Calc 8.7 Estimated GFR 7 Random Glucose 75 Calcium 8.4 D Troponin I High Sens 301.3 H* Microbiology Microbiology Results: Microbiology 02/01/21 14:14 Blood Culture - Preliminary Blood - Venous No growth after 48 hours. 02/01/21 10:10 Blood Culture - Preliminary Blood - Venous No growth after 48 hours. Assessment and Plan (1) Unstable angina: Status: Acute (2) Paroxysmal atrial fibrillation: Status: Acute (3) Acute hyperkalemia: Status: Acute (4) Pneumonia: Status: Acute Assessment and Plan: This is a 70-year-old female with history of ESRD on hemodialysis brought to the emergency department and found to have altered mental status, pneumonia and hyperkalemia Unstable angina No further episodes of chest pressure cardiac enzymes initially elevated on admission, thought to be secondary to acute illness/pneumonia. Had episode of chest pain overnight 02/02 and given history of CAD, will treat for UA. repeat EKG 02/02 showing new twave inversions echo with WMA continue asa, statin, increase dose of metoprolol from 25 b.i.d. to 50 b.i.d. repeat trop decreased from admission had been started on Eliquis for afib cardiology rec to change to IV heparin drip, but pt reports hives with heparin (Lovenox CI in ESRD, limited data with argatroban and bilvalrudin not available here) after discussion with Cardiology ultimately decided to resume Eliquis for AC plan for stress test Friday New onset paroxysmal atrial fibrillation Converted back to NSR [id number] score 4, started on renally dosed eliquis per cardiology recommendation. contiue metoprolol HTN BP improved with addition of medication continue norvasc, metoprolol monitor bp closely Acute respiratory failure with hypoxia Oxygen saturation eat 88% on room air. still requiring 6L NC Likely multifactorial related to pulmonary edema from missing dialysis as well as pneumonia Continue supplemental oxygen as needed ESRD on HD , missed HD Friday last HD 02/03 nephrology following Multifocal pneumonia Continue IV antibiotics started 02/01 Blood cultures negative x 48 hours Hyperkalemia Resolved following dialysis tx w/ calcium gluconate, Kayexalate, sodium bicarb in the ED Metabolic encephalopathy. Improving. seems back to baseline Likely secondary to uremia/hyperkalemia Brain CT negative, no focal neurological deficits Oxycodone, clonazepam and ropinirole are on hold h/o previous admission for encephalopathy which was thought to be multifactorial due to uremic encephalopathy from missed hemodialysis as well as medications. At that time her oxycodone and ropinirole were discontinued h/o liver transplant continue tacrolimus Hypothyroidism Status post total thyroidectomy TSH, low at 0.14 with free T4 0.88 continue lower dose of synthroid repeat thyroid functions as outpatient Mood continue effexor dvt ppx - allergic to heparin analogs, compression device HCP-sister Wendy Bella [phone] Code status-full code attending: dr. allen Quality Stroke Does the patient have a stroke diagnosis?: No VTE Prior VTE?: No VTE Risk Level:: Medical - moderate - high VTE Device Contraindication: N/A - Device Ordered VTE Drug Contraindication: N/A - Med Ordered
[2021-02-04] MEDS: Butalb/Acetamin/Caff 50/325/40 TABLET 1 TAB PO (12:10)
[2021-02-04] MEDS: cefTRIAXone sodium 1 GM in 0.9 % Sodium Chloride 50 ML IV (14:35)
[2021-02-04] MEDS: 0.9 % Sodium Chloride Flush 3 ML SYRINGE IVFLUSH (23:05)
[2021-02-04] MEDS: Atorvastatin Calcium 20 MG TABLET PO (23:05)
[2021-02-05] VITALS (8 sets, daily range): BP systolic 120–151; BP diastolic 53–71; PULSE 54–60; RESP 18–19; TEMP 36.1–37.1; O2SAT 96–98
--- NOTE | 2021-02-05 | CA_ITS ---
Acquisition Time: 2021-02-05 08:12:02 Total Exercise Time: 00:02:00 Test Indications: CP Medications: Protocol: LEXISCAN Max HR: 075 BPM 49% of Pred: 151 BPM Max BP: 126/070 mmHG Max Work Load: 1.0 METS Pharmacological stress test with Lexiscan injection, while sitting and kicking her legs, without anginal symptoms, without arrythmia, with normotensive response to injection, with nondiagnostic EKG for ischemia. In recovery she reported have mild lightheadedness and nausea that was treated with Aminophylline 75mg IVP with resolution of symptom. Nuclear images pending. Test reviewed with Dr Yepez. Referred By: Jermaine Yepez Overread By: IGNACIO SHAHID
[2021-02-05] MEDS: Doxycycline Hyclate 100 MG in 0.9 % Sodium Chloride 250 ML 166.67 MG IV ×2 (04:59→16:03)
[2021-02-05] MEDS: Levothyroxine Sodium 75 MCG TABLET PO (04:59)
--- NOTE | 2021-02-05 08:12 | PC.NURSE ---
Transferred to [facility] with RN in wheelchair for test. NPO since MN.
[2021-02-05] MEDS: 0.9 % Sodium Chloride Flush 3 ML SYRINGE IVFLUSH ×2 (10:56→16:03)
[2021-02-05] MEDS: Aspirin Enteric Coated 81 MG TABLET.DR PO (10:56)
[2021-02-05] MEDS: allopurinoL 100 MG TABLET PO (10:56)
[2021-02-05] MEDS: amLODIPine Besylate 5 MG TABLET PO (10:57)
[2021-02-05] MEDS: Folic Acid 1 MG TABLET PO (10:57)
[2021-02-05] MEDS: Venlafaxine HCL 25 MG TABLET PO (10:57)
[2021-02-05] MEDS: Cholecalciferol (Vitamin D3) 25 MCG TABLET 50 MCG PO (10:57)
[2021-02-05] MEDS: Famotidine 20 MG TABLET PO (10:57)
[2021-02-05] MEDS: Apixaban 2.5 MG TABLET PO ×2 (10:58→20:46)
[2021-02-05] MEDS: Tacrolimus 1 MG CAPSULE PO ×2 (11:01→20:46)
--- NOTE | 2021-02-05 11:18 | P.PNIM_ITS ---
Subjective Subjective Date of Service: 02/05/21 <CHUCKY Weinstein - Last Filed: 02/05/21 14:42> 02/24/21 <Juancho Henriquez MD - Last Filed: 02/24/21 16:27> Interval History: seen and examined this morning follow up for encephalopathy, pna, hyperkalemia no overnight events had first part of stress test this morning headache improved no recurrent episodes of chest pain off of oxygen <CHUCKY Weinstein - Last Filed: 02/05/21 14:42> Review of Systems Review of Systems: Yes all other systems are reviewed and are negative <CHUCKY Weinstein - Last Filed: 02/05/21 14:42> Constitutional Constitutional: Denies chills and Denies fever(s) <CHUCKY Weinstein - Last Filed: 02/05/21 14:42> Cardiovascular Cardiovascular: Denies chest pain <CHUCKY Weinstein - Last Filed: 02/05/21 14:42> Gastrointestinal Gastrointestinal: Denies abdominal pain <CHUCKY Weinstein - Last Filed: 02/05/21 14:42> Physical Exam Vital Signs: Vital Signs: Last Vital Signs Temp 97.0 F 02/05/21 07:29 Pulse 58 02/05/21 11:00 Resp 18 02/05/21 07:29 BP 140/71 H 02/05/21 11:00 Pulse Ox 97 02/05/21 07:29 Body Mass Index 25.4 <CHUCKY Weinstein - Last Filed: 02/05/21 14:42> Const: General: comfortable, no acute distress, alert and awake <CHUCKY Weinstein - Last Filed: 02/05/21 14:42> Nutritional Appearance: well nourished <CHUCKY Weinstein Last Filed: 02/05/21 14:42> Orientation/consciousness: oriented to person and oriented to place <CHUCKY Weinstein - Last Filed: 02/05/21 14:42> HENMT: Other: dry mucous membranes <CHUCKY Weinstein Last Filed: 02/05/21 14:42> Head: Yes normocephalic and Yes atraumatic <CHUCKY Weinstein - Last Filed: 02/05/21 14:42> Eyes: Sclerae: sclerae normal <CHUCKY Weinstein Last Filed: 11/18 14:42> Pupils: Equal, round and reactive pupils present <CHUCKY Weinstein Last Filed: 02/05/21 14:42> Resp: Effort & Inspection: normal respiratory effort and no respiratory distress <CHUCKY Weinstein - Last Filed: 02/05/21 14:42> Cardio: Rate: regular rate <CHUCKY Weinstein Last Filed: 02/05/21 14:42> Rhythm: regular rhythm <CHUCKY Weinstein Last Filed: 02/05/21 14:42> Heart sounds: Murmur heart sound present <CHUCKY Weinstein Last Filed: 02/05/21 14:42> GI: Palpation (GI): Soft to palpation and nontender <CHUCKY Weinstein Last Filed: 02/05/21 14:42> Neuro: General: oriented to person and oriented to place <CHUCKY Weinstein Last Filed: 02/05/21 14:42> Cranial nerves: Yes CN's II-XII intact bilaterally, Yes Equal, round and reactive pupils present and Yes Bilaterally intact EOM present <CHUCKY Weinstein - Last Filed: 02/05/21 14:42> Extrem: Other: no leg edema <CHUCKY Weinstein - Last Filed: 02/05/21 14:42> Objective Data Active Medications Acetaminophen (Acetaminophen 325 Mg Tablet) 650 mg PO Q6H PRN PRN Reason: Pain, Mild (Pain Scale 1-3) Last Admin: 02/04/21 17:13 Dose: 650 mg Documented by: MAX Albuterol Sulfate (Albuterol Sulfate 90 Mcg 8 Gm Inhaler) 1 puff INHALE Q4H PRN PRN Reason: Shortness Of Breath Or Wheezin Allopurinol (Allopurinol 100 Mg Tablet) 100 mg PO DAILY [facility] Last Admin: 02/05/21 10:56 Dose: 100 mg Documented by: MARCO A Amlodipine Besylate (Amlodipine Besylate 5 Mg Tablet) 5 mg PO DAILY [facility]; Protocol Last Admin: 02/05/21 10:57 Dose: 5 mg Documented by: MARCO A Apixaban (Apixaban 2.5 Mg Tablet) 2.5 mg PO BID [facility] Last Admin: 02/05/21 10:58 Dose: 2.5 mg Documented by: MARCO A Aspirin (Aspirin Enteric Coated 81 Mg Tablet.Dr) 81 mg PO DAILY [facility] Last Admin: 02/05/21 10:56 Dose: 81 mg Documented by: MARCO A Atorvastatin Calcium (Atorvastatin Calcium 20 Mg Tablet) 20 mg PO BEDTIME [facility] Last Admin: 02/04/21 23:05 Dose: 20 mg Documented by: ANTKALINA Calcium Carbonate (Calcium Carbonate 500 Mg Tablet) 500 mg PO DAILY PRN PRN Reason: DIALYSIS Docusate Sodium (Docusate Sodium 100 Mg Capsule) 100 mg PO DAILY PRN PRN Reason: Constipation Famotidine (Famotidine 20 Mg Tablet) 20 mg PO DAILY [facility] Last Admin: 02/05/21 10:57 Dose: 20 mg Documented by: MARCO A Folic Acid (Folic Acid 1 Mg Tablet) 1 mg PO DAILY [facility] Last Admin: 02/05/21 10:57 Dose: 1 mg Documented by: MARCO A Ceftriaxone Sodium 1 gm/ (Sodium Chloride) 50 mls @ 100 mls/hr IV Q24H [facility] Last Infusion: 02/04/21 15:22 Dose: 0 mls/hr Documented by: MAX Doxycycline Hyclate 100 mg/ (Sodium Chloride) 250 mls @ 166.67 mls/hr IV Q12H [facility] Last Infusion: 02/05/21 06:46 Dose: 0 mls/hr Documented by: TRUNG Levothyroxine Sodium (Levothyroxine Sodium 75 Mcg Tablet) 75 mcg PO DAILY@0630 [facility] Last Admin: 02/05/21 04:59 Dose: 75 mcg Documented by: ANTKALINA Lidocaine HCl (Lidocaine Hcl 1 % Mpf 2 Ml Ampul) 0.5 ml SUBCUT TUTHSA@1645 [facility] Last Admin: 02/03/21 17:19 Dose: Not Given Documented by: MAX Non-Admin Reason: Given in Dialysis Metoprolol Tartrate (Metoprolol Tartrate 50 Mg Tablet) 50 mg PO BID [facility]; Protocol Last Admin: 02/05/21 11:00 Dose: Not Given Documented by: MARCO A Non-Admin Reason: HR 58 Ondansetron HCl (Ondansetron Hcl 4 Mg/2 Ml Vial) 4 mg IVPUSH Q8H PRN PRN Reason: Nausea and Vomiting Pharmacy Consult (Consult Rx Perform Med Rec) 1 each MISCELLANE ONCE PRN PRN Reason: Consult order Sodium Chloride (0.9 % Sodium Chloride Flush 3 Ml Syringe) 3 ml IVFLUSH QSHIFT [facility] Last Admin: 02/05/21 10:56 Dose: 3 ml Documented by: MARCO A Tacrolimus (Tacrolimus 1 Mg Capsule) 1 mg PO BID [facility] Last Admin: 02/05/21 11:01 Dose: 1 mg Documented by: MARCO A Venlafaxine HCl (Venlafaxine Hcl 25 Mg Tablet) 25 mg PO DAILY [facility] Last Admin: 02/05/21 10:57 Dose: 25 mg Documented by: MARCO A Vitamin D (Cholecalciferol (Vitamin D3) 25 Mcg Tablet) 50 mcg PO DAILY [facility] Last Admin: 02/05/21 10:57 Dose: 50 mcg Documented by: MARCO A <CHUCKY Weinstein - Last Filed: 02/05/21 14:42> Labs CBC & Chem 7: : 02/04/21 06:06 02/06/21 06:28 <CHUCKY Weinstein - Last Filed: 02/05/21 14:42> Assessment and Plan (1) NSTEMI (non-ST elevated myocardial infarction): Status: Acute <CHUCKY Weinstein - Last Filed: 02/05/21 14:42> (2) Acute hyperkalemia: Status: Acute <CHUCKY Weinstein - Last Filed: 02/05/21 14:42> (3) Pneumonia: Status: Acute <CHUCKY Weinstein - Last Filed: 02/05/21 14:42> (4) AMS (altered mental status): Status: Acute <CHUCKY Weinstein - Last Filed: 02/05/21 14:42> Assessment and Plan: This is a 70-year-old female with history of ESRD on hemodialysis brought to the emergency department and found to have altered mental status, pne umonia and hyperkalemia Unstable angina No further episodes of chest pressure cardiac enzymes initially elevated on admission, thought to be secondary to acute illness/pneumonia. Had episode of chest pain overnight 02/02 and repeat EKG showed new twave inversions echo from 02/02 showing WMA First part of stress test done today (02/05), plan for resting images in AM continue asa, statin, increase dose of metoprolol from 25 b.i.d. to 50 b.i.d. had been started on Eliquis for afib cardiology rec to change to IV heparin drip, but pt reports hives with heparin (Lovenox CI in ESRD, limited data with argatroban and bilvalrudin not available here) after discussion with Cardiology ultimately decided to resume Eliquis for AC New onset paroxysmal atrial fibrillation Converted back to NSR [id number] score 4, started on renally dosed eliquis per cardiology recommendation. continue metoprolol HTN BP improved with addition of medication continue norvasc, metoprolol monitor bp closely Acute respiratory failure with hypoxia. Resolved, currently on room air Oxygen saturation eat 88% on room air. still requiring 6L NC Likely multifactorial related to pulmonary edema from missing dialysis as well as pneumonia ESRD on HD , last HD 02/03 nephrology following Multifocal pneumonia Continue IV antibiotics started 02/01, plan for total 7 days Blood cultures negative to date Metabolic encephalopathy. Improving. seems back to baseline Likely secondary to uremia/hyperkalemia Brain CT negative, no focal neurological deficits Oxycodone, clonazepam and ropinirole are on hold h/o previous admission for encephalopathy which was thought to be multifactorial due to uremic encephalopathy from missed hemodialysis as well as medications. At that time her oxycodone and ropinirole were discontinued Hyperkalemia Resolved following dialysis tx w/ calcium gluconate, Kayexalate, sodium bicarb in the ED h/o liver transplant continue tacrolimus Hypothyroidism Status post total thyroidectomy TSH, low at 0.14 with free T4 0.88 continue lower dose of synthroid repeat thyroid functions as outpatient Mood continue effexor dvt ppx - allergic to heparin analogs, compression device HCP-sister Wendy Bella [phone] Code status-full code attending: dr. Henriquez <CHUCKY Weinstein - Last Filed: 02/05/21 14:42> This is a 70-year-old female with history of ESRD on hemodialysis brought to the emergency department and found to have altered mental status, pneumonia and hyperkalemia Unstable angina No further episodes of chest pressure cardiac enzymes initially elevated on admission, thought to be secondary to acute illness/pneumonia. Had episode of chest pain overnight 02/02 and repeat EKG showed new twave inversions echo from 02/02 showing WMA First part of stress test done today (02/05), plan for resting images in AM continue asa, statin, increase dose of metoprolol from 25 b.i.d. to 50 b.i.d. had been started on Eliquis for afib cardiology rec to change to IV heparin drip, but pt reports hives with heparin (Lovenox CI in ESRD, limited data with argatroban and bilvalrudin not available here) after discussion with Cardiology ultimately decided to resume Eliquis for AC New onset paroxysmal atrial fibrillation Converted back to NSR [id number] score 4, started on renally dosed eliquis per cardiology recommendation. continue metoprolol HTN BP improved with addition of medication continue norvasc, metoprolol monitor bp closely Acute respiratory failure with hypoxia. Resolved, currently on room air Oxygen saturation eat 88% on room air. still requiring 6L NC Likely multifactorial related to pulmonary edema from missing dialysis as well as pneumonia ESRD on HD , last HD 02/03 nephrology following Multifocal pneumonia Continue IV antibiotics started 02/01, plan for total 7 days Blood cultures negative to date Metabolic encephalopathy. Improving. seems back to baseline Likely secondary to uremia/hyperkalemia Brain CT negative, no focal neurological deficits Oxycodone, clonazepam and ropinirole are on hold h/o previous admission for encephalopathy which was thought to be multifactorial due to uremic encephalopathy from missed hemodialysis as well as medications. At that time her oxycodone and ropinirole were discontinued Hyperkalemia Resolved following dialysis tx w/ calcium gluconate, Kayexalate, sodium bicarb in the ED h/o liver transplant continue tacrolimus Hypothyroidism Status post total thyroidectomy TSH, low at 0.14 with free T4 0.88 continue lower dose of synthroid repeat thyroid functions as outpatient Mood continue effexor dvt ppx - allergic to heparin analogs, compression device HCP-sister Wendy Bella [phone] Code status-full code attending: dr. Henriquez I saw patient and discussed finding with midlevel provider and i agree with the above <Juancho Henriquez MD - Last Filed: 02/24/21 16:27> Quality Stroke Does the patient have a stroke diagnosis?: No <CHUCKY Weinstein - Last Filed: 02/05/21 14:42> VTE Prior VTE?: No <CHUCKY Weinstein - Last Filed: 02/05/21 14:42> VTE Risk Level:: Medical - moderate - high <CHUCKY Weinstein - Last Filed: 02/05/21 14:42> VTE Device Contraindication: N/A - Device Ordered <CHUCKY Weinstein - Last Filed: 02/05/21 14:42> VTE Drug Contraindication: N/A - Med Ordered <CHUCKY Weinstein - Last Filed: 02/05/21 14:42>
--- NOTE | 2021-02-05 11:21 | PM.PNCARD ---
Subjective Subjective Date of Service: 02/05/21 Principal diagnosis: no complaint ths AM Interval history: She states that she is exhausted but otherwise denies any anginal type chest pains. Review of Systems Review of Systems Yes all other systems are reviewed and are negative Cardiovascular: Reports as per HPI, Reports no additional cardiovascular complaints, Denies acrocyanosis, Denies cool extremities, Denies painful fingertips, Denies chest pain, Denies chest pain at rest, Denies diaphoresis, Denies syncope, Denies irregular heart rhythm, Denies claudication, Denies leg edema, Denies lightheadedness, Denies palpitations and Denies dyspnea Respiratory: Denies dyspnea Denies syncope Endocrine: Denies palpitations Physical Exam Vital Signs: Last Vital Signs Temp 97.7 F 02/05/21 11:17 Pulse 58 02/05/21 11:17 Resp 18 02/05/21 11:17 BP 151/63 H 02/05/21 11:17 Pulse Ox 96 02/05/21 11:17 Body Mass Index 25.4 Const General: cooperative and no acute distress [facility] Other: Unremarkable Neck Neck: Yes normal visual inspection Chest Chest palpation & inspection: normal inspection of the chest Resp Auscultation: clear to auscultation bilaterally, no crackles and no wheezes Cardio Jugular venous distension: no JVD Palpation: normal PMI Heart sounds: S1 normal heart sound present, S2 normal heart sound present, no gallops, Murmur heart sound present (2/6 JESSICA aortic area) and no rubs GI Palpation (GI): Soft to palpation Back/Spine/Pelvis Other: unremarkable Skin General skin exam: no rashes or lesions noted Neuro Cranial nerves: Yes Other cranial nerve findings present Extrem General: Yes no clubbing, cyanosis or edema Psych Mental Status: other Results Labs and Meds Result diagrams: 02/04/21 06:06 02/04/21 06:06 Progress Note: A&P Assessment and plan (1) NSTEMI (non-ST elevated myocardial infarction): Status: Acute (2) Elevated troponin: Status: Acute (3) Paroxysmal atrial fibrillation: Status: Acute (4) S/P TAVR (transcatheter aortic valve replacement): Status: Acute (5) End-stage renal disease (ESRD): Status: Acute (6) History of liver transplant: Status: Acute Assessment and Plan: She denies any further chest pains at this time. Undergoing stress perfusion imaging to assess for etiology of her chest discomfort that she has had earlier. Otherwise, recent echocardiogram with LVEF 45-50%; wall motion abnormalities noted. Normally functioning TAVR valve. Will follow-up with you. Fall Risk Details Current Medications: Current Medications Acetaminophen (Acetaminophen 325 Mg Tablet) 650 mg PO Q6H PRN PRN Reason: Pain, Mild (Pain Scale 1-3) Last Admin: 02/04/21 17:13 Dose: 650 mg Documented by: Albuterol Sulfate (Albuterol Sulfate 90 Mcg 8 Gm Inhaler) 1 puff INHALE Q4H PRN PRN Reason: Shortness Of Breath Or Wheezin Allopurinol (Allopurinol 100 Mg Tablet) 100 mg PO DAILY [facility] Last Admin: 02/05/21 10:56 Dose: 100 mg Documented by: Amlodipine Besylate (Amlodipine Besylate 5 Mg Tablet) 5 mg PO DAILY [facility]; Protocol Last Admin: 02/05/21 10:57 Dose: 5 mg Documented by: Apixaban (Apixaban 2.5 Mg Tablet) 2.5 mg PO BID [facility] Last Admin: 02/05/21 10:58 Dose: 2.5 mg Documented by: Aspirin (Aspirin Enteric Coated 81 Mg Tablet.) 81 mg PO DAILY [facility] Last Admin: 02/05/21 10:56 Dose: 81 mg Documented by: Atorvastatin Calcium (Atorvastatin Calcium 20 Mg Tablet) 20 mg PO BEDTIME [facility] Last Admin: 02/04/21 23:05 Dose: 20 mg Documented by: Calcium Carbonate (Calcium Carbonate 500 Mg Tablet) 500 mg PO DAILY PRN PRN Reason: DIALYSIS Docusate Sodium (Docusate Sodium 100 Mg Capsule) 100 mg PO DAILY PRN PRN Reason: Constipation Famotidine (Famotidine 20 Mg Tablet) 20 mg PO DAILY [facility] Last Admin: 02/05/21 10:57 Dose: 20 mg Documented by: Folic Acid (Folic Acid 1 Mg Tablet) 1 mg PO DAILY [facility] Last Admin: 02/05/21 10:57 Dose: 1 mg Documented by: Ceftriaxone Sodium 1 gm/ (Sodium Chloride) 50 mls @ 100 mls/hr IV Q24H [facility] Last Infusion: 02/04/21 15:22 Dose: Infused Documented by: Doxycycline Hyclate 100 mg/ (Sodium Chloride) 250 mls @ 166.67 mls/hr IV Q12H [facility] Last Infusion: 02/05/21 06:46 Dose: Infused Documented by: Levothyroxine Sodium (Levothyroxine Sodium 75 Mcg Tablet) 75 mcg PO DAILY@0630 [facility] Last Admin: 02/05/21 04:59 Dose: 75 mcg Documented by: Lidocaine HCl (Lidocaine Hcl 1 % Mpf 2 Ml Ampul) 0.5 ml SUBCUT TUTHSA@1645 [facility] Last Admin: 02/03/21 17:19 Dose: Not Given Documented by: Metoprolol Tartrate (Metoprolol Tartrate 50 Mg Tablet) 50 mg PO BID [facility]; Protocol Last Admin: 02/05/21 11:00 Dose: Not Given Documented by: Ondansetron HCl (Ondansetron Hcl 4 Mg/2 Ml Vial) 4 mg IVPUSH Q8H PRN PRN Reason: Nausea and Vomiting Pharmacy Consult (Consult Rx Perform Med Rec) 1 each MISCELLANE ONCE PRN PRN Reason: Consult order Sodium Chloride (0.9 % Sodium Chloride Flush 3 Ml Syringe) 3 ml IVFLUSH QSHIFT [facility] Last Admin: 02/05/21 10:56 Dose: 3 ml Documented by: Tacrolimus (Tacrolimus 1 Mg Capsule) 1 mg PO BID [facility] Last Admin: 02/05/21 11:01 Dose: 1 mg Documented by: Venlafaxine HCl (Venlafaxine Hcl 25 Mg Tablet) 25 mg PO DAILY [facility] Last Admin: 02/05/21 10:57 Dose: 25 mg Documented by: Vitamin D (Cholecalciferol (Vitamin D3) 25 Mcg Tablet) 50 mcg PO DAILY [facility] Last Admin: 02/05/21 10:57 Dose: 50 mcg Documented by: Time Spent With Patient Time: Total time spent is greater than 50% in coordination of care (as documented) at patient's floor/unit and/or counseling patient: Time with patient: less than 15 minutes Progress Note: Quality Stroke Does the patient have a stroke diagnosis?: No Procedures Date of Service Date of Service: 02/05/21
[2021-02-05] MEDS: Acetaminophen 325 MG TABLET 650 MG PO (12:48)
[2021-02-05] MEDS: Butalb/Acetamin/Caff 50/325/40 TABLET 1 TAB PO (14:41)
[2021-02-05] MEDS: cefTRIAXone sodium 1 GM in 0.9 % Sodium Chloride 50 ML IV (14:41)
[2021-02-05] MEDS: Metoprolol Tartrate 50 MG TABLET PO (20:45)
[2021-02-05] MEDS: Atorvastatin Calcium 20 MG TABLET PO (20:45)
--- NOTE | 2021-02-05 23:08 | PC.NURSE ---
Pt a&ox4, vss. NS first degree block on tele. +bs, voiding adequately. LS clear on RA. Tolerating diet. LUE AV fistula, + bruie/thrill. Pt refusing alarms, educated on safety and hospital environment. Ambulating indept with RW.
[2021-02-06] VITALS (10 sets, daily range): BP systolic 109–152; BP diastolic 48–73; PULSE 53–70; RESP 16–18; TEMP 36.2–36.6; O2SAT 95–99
[2021-02-06] MEDS: 0.9 % Sodium Chloride Flush 3 ML SYRINGE IVFLUSH ×3 (00:35→21:36)
[2021-02-06] MEDS: Doxycycline Hyclate 100 MG in 0.9 % Sodium Chloride 250 ML 166.67 MG IV (04:46)
[2021-02-06] MEDS: Levothyroxine Sodium 75 MCG TABLET PO (06:13)
[2021-02-06 08:14] LABS: Anion Gap 20 (12-20); Blood Urea Nitrogen 87 mg/dL (9-16); Calcium 7.9 mg/dL (8.4-10.2); Carbon Dioxide 18 mmol/L (22-29); Chloride 104 mmol/L (96-108); Creatinine Clr Calc Pharmacy 5.5; Estimated Glomerular Filt Rate 4; Glucose Random 68 mg/dL (60-115); Sodium 137 mmol/L (135-145)
[2021-02-06] MEDS: Venlafaxine HCL 25 MG TABLET PO (08:52)
[2021-02-06] MEDS: Aspirin Enteric Coated 81 MG TABLET.DR PO (08:52)
[2021-02-06] MEDS: amLODIPine Besylate 5 MG TABLET PO (08:52)
[2021-02-06] MEDS: Folic Acid 1 MG TABLET PO (08:54)
[2021-02-06] MEDS: Metoprolol Tartrate 50 MG TABLET PO (08:55)
[2021-02-06] MEDS: allopurinoL 100 MG TABLET PO (08:55)
[2021-02-06] MEDS: Apixaban 2.5 MG TABLET PO ×2 (08:55→21:36)
[2021-02-06] MEDS: Famotidine 20 MG TABLET PO (08:55)
[2021-02-06] MEDS: Tacrolimus 1 MG CAPSULE PO ×2 (08:56→21:36)
[2021-02-06] MEDS: Cholecalciferol (Vitamin D3) 25 MCG TABLET 50 MCG PO (08:56)
--- NOTE | 2021-02-06 10:08 | HO.PM.IMPN ---
Subjective Subjective Date of Service: 02/06/21 Interval History: seen and examined this morning no overnight events cough improving Review of Systems Review of Systems: Yes all other systems are reviewed and are negative Constitutional Constitutional: Denies chills and Denies fever(s) Cardiovascular Cardiovascular: Denies chest pain Respiratory Respiratory: Denies cough Gastrointestinal Gastrointestinal: Denies abdominal pain Physical Exam Vital Signs: Vital Signs: Last Vital Signs Temp 97.9 F 02/06/21 07:12 Pulse 60 02/06/21 08:55 Resp 16 02/06/21 07:12 BP 114/48 L 02/06/21 08:55 Pulse Ox 98 02/06/21 07:12 Body Mass Index 25.4 Const: General: comfortable, no acute distress, alert and awake Nutritional Appearance: well nourished Orientation/consciousness: oriented to person and oriented to place HENMT: Other: dry mucous membranes Head: Yes normocephalic and Yes atraumatic Eyes: Sclerae: sclerae normal Pupils: Equal, round and reactive pupils present Resp: Effort & Inspection: normal respiratory effort and no respiratory distress Cardio: Rate: regular rate Rhythm: regular rhythm Heart sounds: Murmur heart sound present GI: Palpation (GI): Soft to palpation and nontender Neuro: General: oriented to person and oriented to place Cranial nerves: Yes CN's II-XII intact bilaterally, Yes Equal, round and reactive pupils present and Yes Bilaterally intact EOM present Extrem: Other: no leg edema Objective Data Active Medications Acetaminophen (Acetaminophen 325 Mg Tablet) 650 mg PO Q6H PRN PRN Reason: Pain, Mild (Pain Scale 1-3) Last Admin: 02/05/21 12:48 Dose: 650 mg Documented by: MARCO A Albuterol Sulfate (Albuterol Sulfate 90 Mcg 8 Gm Inhaler) 1 puff INHALE Q4H PRN PRN Reason: Shortness Of Breath Or Wheezin Allopurinol (Allopurinol 100 Mg Tablet) 100 mg PO DAILY [facility] Last Admin: 02/06/21 08:55 Dose: 100 mg Documented by: MARCO A Amlodipine Besylate (Amlodipine Besylate 5 Mg Tablet) 5 mg PO DAILY [facility]; Protocol Last Admin: 02/06/21 08:52 Dose: 5 mg Documented by: MARCO A Apixaban (Apixaban 2.5 Mg Tablet) 2.5 mg PO BID [facility] Last Admin: 02/06/21 08:55 Dose: 2.5 mg Documented by: MARCO A Aspirin (Aspirin Enteric Coated 81 Mg Tablet.) 81 mg PO DAILY [facility] Last Admin: 02/06/21 08:52 Dose: 81 mg Documented by: MARCO A Atorvastatin Calcium (Atorvastatin Calcium 20 Mg Tablet) 20 mg PO BEDTIME [facility] Last Admin: 02/05/21 20:45 Dose: 20 mg Documented by: GOPI Calcium Carbonate (Calcium Carbonate 500 Mg Tablet) 500 mg PO DAILY PRN PRN Reason: DIALYSIS Docusate Sodium (Docusate Sodium 100 Mg Capsule) 100 mg PO DAILY PRN PRN Reason: Constipation Famotidine (Famotidine 20 Mg Tablet) 20 mg PO DAILY [facility] Last Admin: 02/06/21 08:55 Dose: 20 mg Documented by: MARCO A Folic Acid (Folic Acid 1 Mg Tablet) 1 mg PO DAILY [facility] Last Admin: 02/06/21 08:54 Dose: 1 mg Documented by: MARCO A Ceftriaxone Sodium 1 gm/ (Sodium Chloride) 50 mls @ 100 mls/hr IV Q24H [facility] Stop: 02/10/21 14:59 Last Infusion: 02/05/21 15:39 Dose: 0 mls/hr Documented by: MARCO A Doxycycline Hyclate 100 mg/ (Sodium Chloride) 250 mls @ 166.67 mls/hr IV Q12H [facility] Stop: 02/10/21 15:59 Last Infusion: 02/06/21 06:21 Dose: 0 mls/hr Documented by: RAVI Levothyroxine Sodium (Levothyroxine Sodium 75 Mcg Tablet) 75 mcg PO DAILY@0630 [facility] Last Admin: 02/06/21 06:13 Dose: 75 mcg Documented by: RAVI Lidocaine HCl (Lidocaine Hcl 1 % Mpf 2 Ml Ampul) 0.5 ml SUBCUT TUTHSA@1645 [facility] Last Admin: 02/03/21 17:19 Dose: Not Given Documented by: MAX Non-Admin Reason: Given in Dialysis Metoprolol Tartrate (Metoprolol Tartrate 50 Mg Tablet) 50 mg PO BID [facility]; Protocol Last Admin: 02/06/21 08:55 Dose: 50 mg Documented by: MARCO A Ondansetron HCl (Ondansetron Hcl 4 Mg/2 Ml Vial) 4 mg IVPUSH Q8H PRN PRN Reason: Nausea and Vomiting Pharmacy Consult (Consult Rx Perform Med Rec) 1 each MISCELLANE ONCE PRN PRN Reason: Consult order Sodium Chloride (0.9 % Sodium Chloride Flush 3 Ml Syringe) 3 ml IVFLUSH QSHIFT [facility] Last Admin: 02/06/21 08:56 Dose: 3 ml Documented by: MARCO A Tacrolimus (Tacrolimus 1 Mg Capsule) 1 mg PO BID [facility] Last Admin: 02/06/21 08:56 Dose: 1 mg Documented by: MARCO A Venlafaxine HCl (Venlafaxine Hcl 25 Mg Tablet) 25 mg PO DAILY [facility] Last Admin: 02/06/21 08:52 Dose: 25 mg Documented by: MARCO A Vitamin D (Cholecalciferol (Vitamin D3) 25 Mcg Tablet) 50 mcg PO DAILY [facility] Last Admin: 02/06/21 08:56 Dose: 50 mcg Documented by: MARCO A Labs CBC & Chem 7: 02/04/21 06:06 02/06/21 06:28 Labs: Laboratory Results - last 24 hr 02/06/21 06:28 Anion Gap 20 Estim Creat Clear Calc 5.5 Estimated GFR 4 Random Glucose 68 Calcium 7.9 L Assessment and Plan (1) NSTEMI (non-ST elevated myocardial infarction): Status: Acute (2) Unstable angina: Status: Acute (3) History of liver transplant: Status: Acute (4) Paroxysmal atrial fibrillation: Status: Acute (5) Acute hyperkalemia: Status: Acute (6) Pneumonia: Status: Acute (7) Metabolic encephalopathy: Status: Acute Assessment and Plan: This is a 70-year-old female with history of ESRD on hemodialysis CAD, s/p TAVR, HFrEF (EF 45%), liver transplant on tacrolimus, brought to the emergency department and found to have altered mental status, pneumonia and hyperkalemia Unstable angina No further episodes of chest pressure cardiac enzymes initially elevated on admission, thought to be secondary to acute illness/pneumonia. Had episode of chest pain overnight 02/02 and repeat EKG showed new twave inversions echo from 02/02 showing WMA continue asa, statin, metoprolol had been started on Eliquis for afib cardiology rec to change to IV heparin drip, but pt reports hives with heparin (Lovenox CI in ESRD, limited data with argatroban and bilvalrudin not available here) after discussion with Cardiology ultimately decided to resume Eliquis for AC First part of stress test done 02/05, plan for resting images today - further management based on outcome New onset paroxysmal atrial fibrillation Converted back to NSR [id number] score 4, started on renally dosed eliquis per cardiology recommendation. continue metoprolol HTN BP improved with addition of medication continue norvasc, metoprolol monitor bp closely Acute respiratory failure with hypoxia. Resolved, currently on room air Oxygen saturation eat 88% on room air. still requiring 6L NC Likely multifactorial related to pulmonary edema from missing dialysis as well as pneumonia ESRD on HD , , last HD 02/03 nephrology following Multifocal pneumonia Continue IV antibiotics started 02/01, plan for total 7 days. will change to PO doxy, po ceftin (renally dosed, when scheduled dose falls on dialysis day, administer after dialysis) Blood cultures negative to date Metabolic encephalopathy. Improving. seems back to baseline Likely secondary to uremia/hyperkalemia Brain CT negative, no focal neurological deficits Oxycodone, clonazepam and ropinirole are on hold h/o previous admission for encephalopathy which was thought to be multifactorial due to uremic encephalopathy from missed hemodialysis as well as medications. At that time her oxycodone and ropinirole were discontinued Hyperkalemia Resolved following dialysis tx w/ calcium gluconate, Kayexalate, sodium bicarb in the ED h/o liver transplant continue tacrolimus Hypothyroidism Status post total thyroidectomy TSH, low at 0.14 with free T4 0.88 continue lower dose of synthroid repeat thyroid functions as outpatient Mood continue effexor dvt ppx - allergic to heparin analogs, compression device HCP-sister Wendy Bella [phone] Code status-full code attending: dr. allen dispo - patient refusing rehab, wants to go home Quality Stroke Does the patient have a stroke diagnosis?: No VTE Prior VTE?: No VTE Risk Level:: Medical - moderate - high VTE Device Contraindication: N/A - Device Ordered VTE Drug Contraindication: N/A - Med Ordered
--- NOTE | 2021-02-06 10:49 | PM.PNCARD ---
Subjective Subjective Date of Service: 02/06/21 Principal diagnosis: no complaint ths AM Interval history: No cardiac symptoms. Generally not feeling well, nausea, vomited. Review of Systems Review of Systems Yes all other systems are reviewed and are negative Cardiovascular: Reports as per HPI, Reports no additional cardiovascular complaints, Denies acrocyanosis, Denies cool extremities, Denies painful fingertips, Denies chest pain, Denies chest pain at rest, Denies diaphoresis, Denies syncope, Denies irregular heart rhythm, Denies claudication, Denies leg edema, Denies lightheadedness, Denies palpitations and Denies dyspnea Respiratory: Denies dyspnea Denies syncope Endocrine: Denies palpitations Physical Exam Vital Signs: Last Vital Signs Temp 97.9 F 02/06/21 07:12 Pulse 60 02/06/21 08:55 Resp 16 02/06/21 07:12 BP 114/48 L 02/06/21 08:55 Pulse Ox 98 02/06/21 07:12 Body Mass Index 25.4 Const General: cooperative and no acute distress [facility] Other: Unremarkable Neck Neck: Yes normal visual inspection Chest Chest palpation & inspection: normal inspection of the chest Resp Auscultation: clear to auscultation bilaterally, no crackles and no wheezes Cardio Jugular venous distension: no JVD Palpation: normal PMI Heart sounds: S1 normal heart sound present, S2 normal heart sound present, no gallops, Murmur heart sound present (2/6 JESSICA aortic area) and no rubs GI Palpation (GI): Soft to palpation Back/Spine/Pelvis Other: unremarkable Skin General skin exam: no rashes or lesions noted Neuro Cranial nerves: Yes Other cranial nerve findings present Extrem General: Yes no clubbing, cyanosis or edema Psych Mental Status: other Results Labs and Meds Result diagrams: 02/04/21 06:06 02/06/21 06:28 Lab results: Laboratory Results - last 24 hr 02/06/21 06:28 Sodium 137 Potassium 5.0 Chloride 104 Carbon Dioxide 18 L Anion Gap 20 BUN 87 H* D Creatinine 9.68 H* Estim Creat Clear Calc 5.5 Estimated GFR 4 Random Glucose 68 Calcium 7.9 L Progress Note: A&P Assessment and plan (1) NSTEMI (non-ST elevated myocardial infarction): Status: Acute (2) Elevated troponin: Status: Acute (3) Paroxysmal atrial fibrillation: Status: Acute (4) S/P TAVR (transcatheter aortic valve replacement): Status: Acute (5) End-stage renal disease (ESRD): Status: Acute (6) History of liver transplant: Status: Acute Assessment and Plan: She denies any further chest pains at this time. Undergoing stress perfusion imaging to assess for etiology of her chest discomfort that she has had earlier. Otherwise, recent echocardiogram with LVEF 45-50%; wall motion abnormalities noted. Normally functioning TAVR valve. Disposition pending stress test findings. Fall Risk Details Current Medications: Current Medications Acetaminophen (Acetaminophen 325 Mg Tablet) 650 mg PO Q6H PRN PRN Reason: Pain, Mild (Pain Scale 1-3) Last Admin: 02/05/21 12:48 Dose: 650 mg Documented by: Albuterol Sulfate (Albuterol Sulfate 90 Mcg 8 Gm Inhaler) 1 puff INHALE Q4H PRN PRN Reason: Shortness Of Breath Or Wheezin Allopurinol (Allopurinol 100 Mg Tablet) 100 mg PO DAILY [facility] Last Admin: 02/06/21 08:55 Dose: 100 mg Documented by: Amlodipine Besylate (Amlodipine Besylate 5 Mg Tablet) 5 mg PO DAILY [facility]; Protocol Last Admin: 02/06/21 08:52 Dose: 5 mg Documented by: Apixaban (Apixaban 2.5 Mg Tablet) 2.5 mg PO BID [facility] Last Admin: 02/06/21 08:55 Dose: 2.5 mg Documented by: Aspirin (Aspirin Enteric Coated 81 Mg Tablet.) 81 mg PO DAILY [facility] Last Admin: 02/06/21 08:52 Dose: 81 mg Documented by: Atorvastatin Calcium (Atorvastatin Calcium 20 Mg Tablet) 20 mg PO BEDTIME [facility] Last Admin: 02/05/21 20:45 Dose: 20 mg Documented by: Calcium Carbonate (Calcium Carbonate 500 Mg Tablet) 500 mg PO DAILY PRN PRN Reason: DIALYSIS Cefuroxime Axetil (Cefuroxime Axetil 250 Mg Tablet) 250 mg PO DAILY@1900 [facility] Docusate Sodium (Docusate Sodium 100 Mg Capsule) 100 mg PO DAILY PRN PRN Reason: Constipation Doxycycline Hyclate (Doxycycline Hyclate 100 Mg Tablet) 100 mg PO BID [facility] Famotidine (Famotidine 20 Mg Tablet) 20 mg PO DAILY [facility] Last Admin: 02/06/21 08:55 Dose: 20 mg Documented by: Folic Acid (Folic Acid 1 Mg Tablet) 1 mg PO DAILY [facility] Last Admin: 02/06/21 08:54 Dose: 1 mg Documented by: Levothyroxine Sodium (Levothyroxine Sodium 75 Mcg Tablet) 75 mcg PO DAILY@0630 [facility] Last Admin: 02/06/21 06:13 Dose: 75 mcg Documented by: Lidocaine HCl (Lidocaine Hcl 1 % Mpf 2 Ml Ampul) 0.5 ml SUBCUT TUTHSA@1645 [facility] Last Admin: 02/03/21 17:19 Dose: Not Given Documented by: Metoprolol Tartrate (Metoprolol Tartrate 50 Mg Tablet) 50 mg PO BID [facility]; Protocol Last Admin: 02/06/21 08:55 Dose: 50 mg Documented by: Ondansetron HCl (Ondansetron Hcl 4 Mg/2 Ml Vial) 4 mg IVPUSH Q8H PRN PRN Reason: Nausea and Vomiting Pharmacy Consult (Consult Rx Perform Med Rec) 1 each MISCELLANE ONCE PRN PRN Reason: Consult order Sodium Chloride (0.9 % Sodium Chloride Flush 3 Ml Syringe) 3 ml IVFLUSH QSHIFT [facility] Last Admin: 02/06/21 08:56 Dose: 3 ml Documented by: Tacrolimus (Tacrolimus 1 Mg Capsule) 1 mg PO BID [facility] Last Admin: 02/06/21 08:56 Dose: 1 mg Documented by: Venlafaxine HCl (Venlafaxine Hcl 25 Mg Tablet) 25 mg PO DAILY [facility] Last Admin: 02/06/21 08:52 Dose: 25 mg Documented by: Vitamin D (Cholecalciferol (Vitamin D3) 25 Mcg Tablet) 50 mcg PO DAILY [facility] Last Admin: 02/06/21 08:56 Dose: 50 mcg Documented by: Time Spent With Patient Time: Total time spent is greater than 50% in coordination of care (as documented) at patient's floor/unit and/or counseling patient: Time with patient: less than 15 minutes Progress Note: Quality Stroke Does the patient have a stroke diagnosis?: No Procedures Date of Service Date of Service: 02/06/21
--- NOTE | 2021-02-06 10:54 | W.PM.DNNEP ---
Subjective Subjective Principal diagnosis: no complaint ths AM This patient was seen during dialysis. Interval history: due for dialysis today Physical Exam Vital Signs: Vital Signs: Last Vital Signs Temp 97.9 F 02/06/21 07:12 Pulse 60 02/06/21 08:55 Resp 16 02/06/21 07:12 BP 114/48 L 02/06/21 08:55 Pulse Ox 98 02/06/21 07:12 Body Mass Index 25.4 oral moist mucosa lungs decrease BSs on bases s1s2 abd soft nt ext no edema LUE AVF Assessment & Plan Assessment and plan (1) End-stage renal disease (ESRD): Start date: 02/06/21 Status: Acute Assessment and Plan: due for HD today continue on TTS schedule (2) Pneumonia: Status: Acute Assessment and Plan: continue antibx therapy as per medical team Time Spent With Patient Time: Total time spent is greater than 50% in coordination of care (as documented) at patient's floor/unit and/or counseling patient: Procedures Date of Service Date of Service: 02/06/21
--- NOTE | 2021-02-06 11:22 | PC.NURSE ---
Patient transferred to [facility] this am at 0845 and then went to dialysis immediately after. Currently still in dialysis at this time.
--- NOTE | 2021-02-06 13:59 | PC.NURSE ---
HR currently in 40-50's while in dialysis. asymptomatic at this time. bp 142/70. Dr Jones aware. suggested looking at Lopressor AM dose for adjustment
--- NOTE | 2021-02-06 14:57 | MHC.CM.PN ---
met with pts sister jhonatan ,pt is in dialysis pt anne will indicate what is a safe dc plan at this point dc planb is tbd home with servcies and hvns vs str sister would requesta a mrehab near her in [place]
[2021-02-06] MEDS: oxyCODONE HCl Immed Release 5 MG TABLET PO (21:35)
[2021-02-06] MEDS: Atorvastatin Calcium 20 MG TABLET PO (21:35)
[2021-02-06] MEDS: Metoprolol Tartrate 25 MG TABLET PO (21:36)
[2021-02-07 04:00] VITALS: BP 133/60; PULSE 51; RESP 18; TEMP 36.5; O2SAT 97
[2021-02-07 07:37] VITALS: BP 145/65; PULSE 56; RESP 17; TEMP 36.7; O2SAT 92
[2021-02-07 08:58] VITALS: BP 145/65; PULSE 68
[2021-02-07] MEDS: Folic Acid 1 MG TABLET PO (08:58)
[2021-02-07] MEDS: Metoprolol Tartrate 25 MG TABLET PO (08:58)
[2021-02-07] MEDS: Tacrolimus 1 MG CAPSULE PO (08:58)
[2021-02-07] MEDS: Venlafaxine HCL 25 MG TABLET PO (08:58)
[2021-02-07] MEDS: Cholecalciferol (Vitamin D3) 25 MCG TABLET 50 MCG PO (08:58)
[2021-02-07] MEDS: Famotidine 20 MG TABLET PO (08:58)
[2021-02-07] MEDS: Aspirin Enteric Coated 81 MG TABLET.DR PO (08:58)
[2021-02-07 08:59] VITALS: BP 145/65; PULSE 68
[2021-02-07] MEDS: Apixaban 2.5 MG TABLET PO (08:59)
[2021-02-07] MEDS: allopurinoL 100 MG TABLET PO (08:59)
[2021-02-07] MEDS: amLODIPine Besylate 5 MG TABLET PO (08:59)
--- NOTE | 2021-02-07 11:49 | P.PNCA_ITS ---
Subjective Subjective Date of Service: 02/07/21 Principal diagnosis: no complaint ths AM Interval history: No chest pain or cardiac symptoms. Review of Systems Review of Systems Yes all other systems are reviewed and are negative Cardiovascular: Reports as per HPI, Reports no additional cardiovascular complaints, Denies acrocyanosis, Denies cool extremities, Denies painful fi ngertips, Denies chest pain, Denies chest pain at rest, Denies diaphoresis, Denies syncope, Denies irregular heart rhythm, Denies claudication, Denies leg edema, Denies lightheadedness, Denies palpitations and Denies dyspnea Respiratory: Denies dyspnea Denies syncope Endocrine: Denies palpitations Physical Exam Vital Signs: Last Vital Signs Temp 98.1 F 02/07/21 07:37 Pulse 68 02/07/21 08:59 Resp 17 02/07/21 07:37 BP 145/65 H 02/07/21 08:59 Pulse Ox 92 02/07/21 07:37 Body Mass Index 25.4 Const General: cooperative and no acute distress [facility] Other: Unremarkable Neck Neck: Yes normal visual inspection Chest Chest palpation & inspection: normal inspection of the chest Resp Auscultation: clear to auscultation bilaterally, no crackles and no wheezes Cardio Jugular venous distension: no JVD Palpation: normal PMI Heart sounds: S1 normal heart sound present, S2 normal heart sound present, no gallops, Murmur heart sound present (2/6 JESSICA aortic area) and no rubs GI Palpation (GI): Soft to palpation Back/Spine/Pelvis Other: unremarkable Skin General skin exam: no rashes or lesions noted Neuro Cranial nerves: Yes Other cranial nerve findings present Extrem General: Yes no clubbing, cyanosis or edema Psych Mental Status: other Results Labs and Meds Result diagrams: 02/04/21 06:06 02/06/21 06:28 Imaging Radiologist's impression: Impressions Myocardial Perfusion Scan Nuc Med 02/03/21 13:24 Impression: 1. Myocardial perfusion imaging study shows moderate size mild to moderate intensity LAD territory ischemia 2. Gated LVEF is 57% with stress and 67% with rest 3. Transient ischemic dilatation present EKG is nondiagnostic for ischemia Progress Note: A&P Assessment and plan (1) NSTEMI (non-ST elevated myocardial infarction): Status: Acute (2) Elevated troponin: Status: Acute (3) Paroxysmal atrial fibrillation: Status: Acute (4) S/P TAVR (transcatheter aortic valve replacement): Status: Acute (5) End-stage renal disease (ESRD): Status: Acute (6) History of liver transplant: Status: Acute Assessment and Plan: Recent echocardiogram with LVEF of 45-50%; wall motion abnormalities in the right coronary artery territory. Normally functioning bioprosthetic aortic valve. In the stress perfusion imaging, reported to have moderate-sized ischemia in the LAD territory. Overall, not clear if these are true findings or artifactual as she has had normal cardiac catheterization in 2017 at [facility], preTAVR. Other findings current admission including diffuse T inversions across the pericardium are also different from the original admission EKG where T-waves are upright. High sensitive troponins are 680, 595 and 301. Overall confusing picture. She has had apparently had chest pain earlier in the admission but nothing at this time. Has had episodes of nausea since yesterday. We will plan for diagnostic cardiac catheterization and we discussed this with the patient and she is agreeable. We will transfer her to [facility] today. Possibly cardiac catheterization tomorrow. Will hold Abiola. Fall Risk Details Current Medications: Current Medications Acetaminophen (Acetaminophen 325 Mg Tablet) 650 mg PO Q6H PRN PRN Reason: Pain, Mild (Pain Scale 1-3) Last Admin: 02/05/21 12:48 Dose: 650 mg Documented by: Albuterol Sulfate (Albuterol Sulfate 90 Mcg 8 Gm Inhaler) 1 puff INHALE Q4H PRN PRN Reason: Shortness Of Breath Or Wheezin Allopurinol (Allopurinol 100 Mg Tablet) 100 mg PO DAILY [facility] Last Admin: 02/07/21 08:59 Dose: 100 mg Documented by: Amlodipine Besylate (Amlodipine Besylate 5 Mg Tablet) 5 mg PO DAILY [facility]; Protocol Last Admin: 02/07/21 08:59 Dose: 5 mg Documented by: Apixaban (Apixaban 2.5 Mg Tablet) 2.5 mg PO BID [facility] Last Admin: 02/07/21 08:59 Dose: 2.5 mg Documented by: Aspirin (Aspirin Enteric Coated 81 Mg Tablet.) 81 mg PO DAILY [facility] Last Admin: 02/07/21 08:58 Dose: 81 mg Documented by: Atorvastatin Calcium (Atorvastatin Calcium 20 Mg Tablet) 20 mg PO BEDTIME [facility] Last Admin: 02/06/21 21:35 Dose: 20 mg Documented by: Calcium Carbonate (Calcium Carbonate 500 Mg Tablet) 500 mg PO DAILY PRN PRN Reason: DIALYSIS Cefuroxime Axetil (Cefuroxime Axetil 250 Mg Tablet) 250 mg PO DAILY@1900 [facility] Last Admin: 02/06/21 18:39 Dose: 250 mg Documented by: Docusate Sodium (Docusate Sodium 100 Mg Capsule) 100 mg PO DAILY PRN PRN Reason: Constipation Doxycycline Hyclate (Doxycycline Hyclate 100 Mg Tablet) 100 mg PO BID [facility] Last Admin: 02/07/21 08:58 Dose: 100 mg Documented by: Famotidine (Famotidine 20 Mg Tablet) 20 mg PO DAILY [facility] Last Admin: 02/07/21 08:58 Dose: 20 mg Documented by: Folic Acid (Folic Acid 1 Mg Tablet) 1 mg PO DAILY [facility] Last Admin: 02/07/21 08:58 Dose: 1 mg Documented by: Levothyroxine Sodium (Levothyroxine Sodium 75 Mcg Tablet) 75 mcg PO DAILY@0630 [facility] Last Admin: 02/07/21 06:37 Dose: Not Given Documented by: Lidocaine HCl (Lidocaine Hcl 1 % Mpf 2 Ml Ampul) 0.5 ml SUBCUT TUTA@1645 [facility] Last Admin: 02/06/21 15:42 Dose: Not Given Documented by: Lidocaine HCl (Lidocaine Hcl 1 % Mpf 2 Ml Ampul) 0.5 ml SUBCUT TUTA@1645 [facility] Last Admin: 02/06/21 15:42 Dose: Not Given Documented by: Metoprolol Tartrate (Metoprolol Tartrate 25 Mg Tablet) 25 mg PO BID [facility]; Protocol Last Admin: 02/07/21 08:58 Dose: 25 mg Documented by: Ondansetron HCl (Ondansetron Hcl 4 Mg/2 Ml Vial) 4 mg IVPUSH Q8H PRN PRN Reason: Nausea and Vomiting Pharmacy Consult (Consult Rx Perform Med Rec) 1 each MISCELLANE ONCE PRN PRN Reason: Consult order Sodium Chloride (0.9 % Sodium Chloride Flush 3 Ml Syringe) 3 ml IVFLUSH QSHIFT [facility] Last Admin: 02/07/21 08:59 Dose: Not Given Documented by: Tacrolimus (Tacrolimus 1 Mg Capsule) 1 mg PO BID [facility] Last Admin: 02/07/21 08:58 Dose: 1 mg Documented by: Venlafaxine HCl (Venlafaxine Hcl 25 Mg Tablet) 25 mg PO DAILY [facility] Last Admin: 02/07/21 08:58 Dose: 25 mg Documented by: Vitamin D (Cholecalciferol (Vitamin D3) 25 Mcg Tablet) 50 mcg PO DAILY [facility] Last Admin: 02/07/21 08:58 Dose: 50 mcg Documented by: Time Spent With Patient Time: Total time spent is greater than 50% in coordination of care (as documented) at patient's floor/unit and/or counseling patient: Time with patient: less than 15 minutes Progress Note: Quality Stroke Does the patient have a stroke diagnosis?: No Procedures Date of Service Date of Service: 02/07/21
[2021-02-07 11:50] VITALS: BP 109/52; PULSE 53; RESP 16; TEMP 36.5; O2SAT 98
--- NOTE | 2021-02-07 12:55 | MHC.CM.PN ---
per rounds pt maybe transferred to [facility]
--- NOTE | 2021-02-07 14:31 | P.PNIM_ITS ---
Subjective Subjective Date of Service: 02/07/21 Interval History: cc: chest pain interval history: resolved Cardiovascular Cardiovascular: Reports no additional cardiovascular complaints Respiratory Respiratory: Reports no additional respiratory complaints Physical Exam Vital Signs: Vital Signs: Last Vital Signs Temp 97.7 F 02/07/21 11:50 Pulse 53 02/07/21 11:50 Resp 16 02/07/21 11:50 BP 109/52 L 02/07/21 11:50 Pulse Ox 98 02/07/21 11:50 Body Mass Index 25.4 General: AO X 3, no acute distress Resp: CTA bilateral, no accessory muscles used CVS: S1,S2,RRR GI: soft, non tender, non distended Neuro: motor grossly intact, alert Psych: appropriate affect, appropriate insight Objective Data Active Medications Acetaminophen (Acetaminophen 325 Mg Tablet) 650 mg PO Q6H PRN PRN Reason: Pain, Mild (Pain Scale 1-3) Last Admin: 02/05/21 12:48 Dose: 650 mg Documented by: MARCO A Albuterol Sulfate (Albuterol Sulfate 90 Mcg 8 Gm Inhaler) 1 puff INHALE Q4H PRN PRN Reason: Shortness Of Breath Or Wheezin Allopurinol (Allopurinol 100 Mg Tablet) 100 mg PO DAILY [facility] Last Admin: 02/07/21 08:59 Dose: 100 mg Documented by: MARGARITA Amlodipine Besylate (Amlodipine Besylate 5 Mg Tablet) 5 mg PO DAILY [facility]; Protocol Last Admin: 02/07/21 08:59 Dose: 5 mg Documented by: MARGARITA Apixaban (Apixaban 2.5 Mg Tablet) 2.5 mg PO BID [facility] Last Admin: 02/07/21 08:59 Dose: 2.5 mg Documented by: MARGARITA Aspirin (Aspirin Enteric Coated 81 Mg Tablet.) 81 mg PO DAILY [facility] Last Admin: 02/07/21 08:58 Dose: 81 mg Documented by: MARGARITA Atorvastatin Calcium (Atorvastatin Calcium 20 Mg Tablet) 20 mg PO BEDTIME [facility] Last Admin: 02/06/21 21:35 Dose: 20 mg Documented by: ABDELRAHMAN Calcium Carbonate (Calcium Carbonate 500 Mg Tablet) 500 mg PO DAILY PRN PRN Reason: DIALYSIS Cefuroxime Axetil (Cefuroxime Axetil 250 Mg Tablet) 250 mg PO DAILY@1900 [facility] Last Admin: 02/06/21 18:39 Dose: 250 mg Documented by: MAX Docusate Sodium (Docusate Sodium 100 Mg Capsule) 100 mg PO DAILY PRN PRN Reason: Constipation Doxycycline Hyclate (Doxycycline Hyclate 100 Mg Tablet) 100 mg PO BID [facility] Last Admin: 02/07/21 08:58 Dose: 100 mg Documented by: MARGARITA Famotidine (Famotidine 20 Mg Tablet) 20 mg PO DAILY [facility] Last Admin: 02/07/21 08:58 Dose: 20 mg Documented by: MARGARITA Folic Acid (Folic Acid 1 Mg Tablet) 1 mg PO DAILY [facility] Last Admin: 02/07/21 08:58 Dose: 1 mg Documented by: MARGARITA Levothyroxine Sodium (Levothyroxine Sodium 75 Mcg Tablet) 75 mcg PO DAILY@0630 [facility] Last Admin: 02/07/21 06:37 Dose: Not Given Documented by: GILBERT Non-Admin Reason: Patient Refused Lidocaine HCl (Lidocaine Hcl 1 % Mpf 2 Ml Ampul) 0.5 ml SUBCUT TUTA@1645 [facility] Last Admin: 02/06/21 15:42 Dose: Not Given Documented by: MARCO A Non-Admin Reason: Given in Dialysis Lidocaine HCl (Lidocaine Hcl 1 % Mpf 2 Ml Ampul) 0.5 ml SUBCUT TUTA@1645 [facility] Last Admin: 02/06/21 15:42 Dose: Not Given Documented by: MARCO A Non-Admin Reason: Given in Dialysis Metoprolol Tartrate (Metoprolol Tartrate 25 Mg Tablet) 25 mg PO BID [facility]; Protocol Last Admin: 02/07/21 08:58 Dose: 25 mg Documented by: MARGARITA Ondansetron HCl (Ondansetron Hcl 4 Mg/2 Ml Vial) 4 mg IVPUSH Q8H PRN PRN Reason: Nausea and Vomiting Pharmacy Consult (Consult Rx Perform Med Rec) 1 each MISCELLANE ONCE PRN PRN Reason: Consult order Sodium Chloride (0.9 % Sodium Chloride Flush 3 Ml Syringe) 3 ml IVFLUSH QSHIFT [facility] Last Admin: 02/07/21 08:59 Dose: Not Given Documented by: MARGARITA Non-Admin Reason: No Access Tacrolimus (Tacrolimus 1 Mg Capsule) 1 mg PO BID [facility] Last Admin: 02/07/21 08:58 Dose: 1 mg Documented by: MARGARITA Venlafaxine HCl (Venlafaxine Hcl 25 Mg Tablet) 25 mg PO DAILY [facility] Last Admin: 02/07/21 08:58 Dose: 25 mg Documented by: MARGARITA Vitamin D (Cholecalciferol (Vitamin D3) 25 Mcg Tablet) 50 mcg PO DAILY [facility] Last Admin: 02/07/21 08:58 Dose: 50 mcg Documented by: MARGARITA Labs CBC & Chem 7: 02/04/21 06:06 02/06/21 06:28 Microbiology Microbiology Results: Microbiology 02/01/21 14:14 Blood Culture - Final Blood - Venous No growth after 5 days. 02/01/21 10:10 Blood Culture - Final Blood - Venous No growth after 5 days. Assessment and Plan (1) NSTEMI (non-ST elevated myocardial infarction): Status: Acute (2) Unstable angina: Status: Acute (3) History of liver transplant: Status: Acute (4) Paroxysmal atrial fibrillation: Status: Acute (5) Acute hyperkalemia: Status: Acute (6) Pneumonia: Status: Acute (7) Metabolic encephalopathy: Status: Acute Assessment and Plan: 70-year-old female with history of ESRD on hemodialysis CAD, s/p TAVR, HFrEF (EF 45%), liver transplant on tacrolimus, brought to the emergency department and found to have altered mental status, pneumonia and hyperkalemia Unstable angina No further episodes of chest pressure cardiac enzymes initially elevated on admission, thought to be secondary to acute illness/pneumonia. Had episode of chest pain overnight 02/02 and repeat EKG showed new twave inversions echo from 02/02 showing WMA continue asa, statin, metoprolol stress test postiive, plan for transfer for cath New onset paroxysmal atrial fibrillation Converted back to NSR [id number] score 4, started on renally dosed eliquis per cardiology recommendation. (now on hold for cath) continue metoprolol HTN BP improved with addition of medication continue norvasc, metoprolol monitor bp closely Acute respiratory failure with hypoxia. Resolved, currently on room air ESRD on HD , , Sa last HD 02/03 nephrology following Multifocal pneumonia Continue antibiotics started 02/01, plan for total 7 days. now on PO doxy, po ceftin (renally dosed, when scheduled dose falls on dialysis day, administer after dialysis) Blood cultures negative to date Metabolic encephalopathy. Improving. seems back to baseline Likely secondary to uremia/hyperkalemia Brain CT negative, no focal neurological deficits Oxycodone, clonazepam and ropinirole are on hold h/o previous admission for encephalopathy which was thought to be multifactorial due to uremic encephalopathy from missed hemodialysis as well as medications. At that time her oxycodone and ropinirole were discontinued Hyperkalemia Resolved following dialysis tx w/ calcium gluconate, Kayexalate, sodium bicarb in the ED h/o liver transplant continue tacrolimus Hypothyroidism Status post total thyroidectomy TSH, low at 0.14 with free T4 0.88 continue lower dose of synthroid repeat thyroid functions as outpatient Mood continue effexor dvt ppx - allergic to heparin analogs, compression device HCP-sister Wendy Bella [phone] Code status-full code dispo - [facility] when bed available Quality Stroke Does the patient have a stroke diagnosis?: No VTE Prior VTE?: No VTE Risk Level:: Medical - moderate - high VTE Device Contraindication: N/A - Device Ordered VTE Drug Contraindication: N/A - Med Ordered
--- NOTE | 2021-02-07 14:42 | P.DS_ITS ---
DS: Providers Provider Date of Service: 02/07/21 Date of admission: 02/01/21 12:14 Primary care physician: Vanessa Hu MD Consults: 02/01/21 12:19 Consult to Nephrology Routine Consulting Provider: Marty Dennison Reason for consultation: esrd, missed HD; hyperkalemia Has provider been notified: No 02/02/21 09:33 Consult to Cardiology Routine Consulting Provider: Jermaine Yepez Reason for consultation: elevated trops; new afib; ekg changes Has provider been notified: No DS: Diagnosis Discharge Diagnosis (1) NSTEMI (non-ST elevated myocardial infarction): Status: Acute (2) Unstable angina: Status: Acute (3) History of liver transplant: Status: Acute (4) Paroxysmal atrial fibrillation: Status: Acute (5) Acute hyperkalemia: Status: Acute (6) Pneumonia: Status: Acute (7) Metabolic encephalopathy: Status: Acute DS: Summary Hospital Course Hospital Course: 70-year-old female with history of ESRD on hemodialysis CAD, s/p TAVR, HFrEF (EF 45%), liver transplant on tacrolimus, brought to the emergency department and found to have altered mental status, pneumonia and hyperkalemia. pateint was treated for unstable angina, no heparin due to documented allergy (history of hives). stress test was positive, plan to transfer to [facility] for catheterization. She was found to have new onset atrial fibrillation. She converted back to normal sinus rhythm. She was started on Eliquis, this is now held for catheterization. Course was complicated by acute hypoxic respiratory failure due to multifocal pneumonia, she was treated with 7 days of antibiotics and she is now on room air. Patient Initially presented with metabolic encephalopathy due to uremia and hypoxia. This quickly resolved and she is back at her baseline. For her hyperkalemia this resolved after dialysis. For liver transplant she was continued on prograf. Time Spent with Patient Time attestation: Total time spent providing and/or coordinating discharge services: Discharge coordination time: Greater than 30 minutes Quality: Stroke Does the patient have a stroke diagnosis?: No Physical Exam Vital Signs: Vital Signs: Last Vital Signs Temp 97.7 F 02/07/21 11:50 Pulse 53 02/07/21 11:50 Resp 16 02/07/21 11:50 BP 109/52 L 02/07/21 11:50 Pulse Ox 98 02/07/21 11:50 Body Mass Index 25.4 General: AO X 3, no acute distress Resp: CTA bilateral, no accessory muscles used CVS: S1,S2,RRR GI: soft, non tender, non distended Neuro: motor grossly intact, alert Psych: appropriate affect, appropriate insight DS: Data Data Completed and Pending Completed studies during hospitalization [Text1]: Procedures Performance of Urinary Filtration, Intermittent, Less than 6 Hours Per Day (08/14/20) Supplement Left Inguinal Region with Synthetic Substitute, Open Approach (08/14/20) Discharge Plan Discharge Patient Disposition: Xfer Acute [facility] Discharge Diagnosis: acs Referrals: Vanessa Hu MD [Primary Care Provider] - 1 Week Discharge Medications: New amlodipine 5 mg Tablet 5 mg PO DAILY Qty: 0 RF: 0 metoprolol tartrate 25 mg Tablet 25 mg PO BID Qty: 0 RF: 0 Continued albuterol sulfate [Ventolin HFA] 90 mcg/actuation Hfa Aerosol Inhaler 2 puff INHALATION Q4-6H PRN (Reason: Shortness Of Breath Or Wheezing) RF: 0 venlafaxine 25 mg tablet 1 tab PO DAILY RF: 0 clonazepam 0.5 mg tablet 1 tab PO DAILY PRN (Reason: panic attack) RF: 0 ropinirole 0.5 mg tablet 1 tab PO BEDTIME RF: 0 hydroxyzine HCl 25 mg tablet 1 tab PO TID PRN (Reason: Itching) RF: 0 calcium citrate 200 mg (950 mg) Tablet 400 mg PO USEASDIRECTD RF: 0 cholecalciferol (vitamin D3) 50 mcg (2,000 unit) tablet 1 tab PO DAILY RF: 0 ondansetron HCl [Zofran] 4 mg Tablet 4 mg PO Q8H PRN (Reason: Nausea) RF: 0 allopurinol 100 mg tablet 100 mg PO DAILY RF: 0 docusate sodium [DOK] 100 mg capsule 100 mg PO BID PRN (Reason: Constipation) RF: 0 tacrolimus 1 mg capsule 1 mg PO BID RF: 0 levothyroxine 100 mcg tablet 1 tab PO DAILY RF: 0 oxycodone 5 mg tablet 1 tab PO BID PRN (Reason: pain) RF: 0 famotidine 20 mg tablet 1 tab PO BEDTIME PRN (Reason: Acid Reflux) RF: 0 rosuvastatin 10 mg tablet 10 mg PO BEDTIME RF: 0 aspirin 81 mg tablet,delayed release (DR/EC) 81 mg PO QAM RF: 0 famotidine 20 mg tablet 20 mg PO DAILY RF: 0 folic acid 1 mg tablet 1 mg PO DAILY RF: 0 Discharge Orders: Discharge Order (Routine); Ordered 02/07/21 Ordered By: Erick Venegas Diet: advance to usual diet Activity on Discharge: As tolerated Stand Alone Forms: Patient Portal Discharge page Care Plan Goals: recovery Health Concerns: acs Plan of Treatment: transfer to [facility] for cath Assessment: see above
--- NOTE | 2021-02-07 14:46 | MHC.CM.PN ---
Patient is discharged to [facility] via ALS.
[2021-02-07 15:37] VITALS: BP 120/54; PULSE 56; RESP 18; TEMP 37; O2SAT 96
--- NOTE | 2021-02-07 17:20 | PC.NURSE ---
Report called to RN at [facility], to transfer to room 123, . To be transferred via [facility].
[2021-02-07] MEDS: Acetaminophen 325 MG TABLET 650 MG PO (18:09)
== END 2021-02-07 18:44 | disposition short-term general hospital (02) | DRG 193 ==
LOC: HO.ED 11:30 → HO.EDOVER 13:27 → HO.IMC 17:27
PROVIDERS: Hospitalist; Admitting Provider Physician Assistant Medical; Emergency Provider Emergency Medicine; PCP Pediatrics; Visit Provider Internal Medicine
DX: J18.9 Pneumonia, unspecified organism (principal); G93.41 Metabolic encephalopathy; J96.01 Acute respiratory failure with hypoxia; N18.6 End stage renal disease; I21.A1 Myocardial infarction type 2; Z94.4 Liver transplant status; I12.0 Hypertensive chronic kidney disease with stage 5 chronic kidney disease or end stage renal disease; I25.110 Atherosclerotic heart disease of native coronary artery with unstable angina pectoris; K21.9 Gastro-esophageal reflux disease without esophagitis; M10.9 Gout, unspecified; E87.5 Hyperkalemia; I48.0 Paroxysmal atrial fibrillation; E89.0 Postprocedural hypothyroidism; Z91.15 Patient's noncompliance with renal dialysis; Z20.822 Contact with and (suspected) exposure to COVID-19; Z95.2 Presence of prosthetic heart valve; Z99.2 Dependence on renal dialysis; Z88.2 Allergy status to sulfonamides; Z79.82 Long term (current) use of aspirin; Z79.890 Hormone replacement therapy; Z79.899 Other long term (current) drug therapy
CPT/HCPCS: 36415; 70450; 71045; 74176; 78452; 80048; 80076; 82947; 83605; 83690; 83735; 83880; 84145; 84439; 84443; 84484; 85025; 85027; 87040; 87635; 90999; 93005; 93017; 93306; 96365; 96367; 96375; 99285; 99291; A9500; J0456; J0610; J0696; J2785

== ENCOUNTER 2021-05-18 14:48 | Outpatient (REF) | payer MEDICARE, MEDICAID, SELFPAY ==
--- NOTE | ~2021-05-18 | MM_ITS ---
EXAMINATION: MM SCREENING DIGITAL BREAST TOMOSYNTHESIS, BILATERAL CLINICAL INFORMATION: Screening. Asymptomatic. The lifetime risk of breast cancer based on the Tyrer-Cuzick Model is 4%. COMPARISON: Mammography: 03/30/2020, 05/14/2017, 04/18/2016, 01/12/2015 TECHNIQUE: Digital breast tomosynthesis is performed in both the craniocaudal and mediolateral oblique views along with computer-aided detection (CAD). Synthesized 2D images are generated from the tomosynthesis. FINDINGS: The breasts are almost entirely fatty (ACR BI-RADS breast composition Category a). Background stromal markings are stable. There are numerous bilateral vascular and probable ductal secretory and dermal calcifications as before. Low right axillary tail node is similar to prior studies. Neither breast shows interval mass or architectural abnormality or developing density. No significant changes. MM/MM tomosynthesis screening BI IMPRESSION: No mammographic evidence of malignancy. ASSESSMENT: BI-RADS 2: Benign RECOMMENDATION: Routine annual mammography screening. This patient's information was entered into a reminder system with a target due date for their next mammogram.
== END 2021-05-18 14:49 | disposition home or self-care (01) ==
LOC: HO.MAMMO 14:48
PROVIDERS: Visit Provider Pediatrics
DX: Z12.31 Encounter for screening mammogram for malignant neoplasm of breast (principal)
CPT/HCPCS: 77063; 77067

== ENCOUNTER 2021-08-15 15:00 | Outpatient (RCR) | payer OTHER, SELFPAY ==
[2021-06-29 12:03] VITALS: BP 150/82; PULSE 71
== END 2021-09-04 11:32 | disposition home or self-care (01) ==
LOC: HO.PT 15:00
PROVIDERS: PCP Pediatrics; Visit Provider Internal Medicine Nephrology
DX: Z72.3 Lack of physical exercise (principal)
CPT/HCPCS: 97110; 97112; 97163

== ENCOUNTER 2021-10-17 22:23 | Emergency (ER) | payer OTHER, SELFPAY ==
[2021-10-17 22:47] VITALS: BP 135/87; PULSE 78; RESP 18; TEMP 37.3; O2SAT 99; BMI 23.6
[2021-10-17] MEDS: Lidocaine HCl 1 % MPF 5 ML VIAL INFILTRATI (23:24)
[2021-10-17] MEDS: Silver Nitrate Applicator STICK..EA. 1 APPL TOPICAL ×2 (23:24)
--- NOTE | 2021-10-18 00:55 | ED.WOUNDLAC ---
HPI - Wound/Laceration General Chief Complaint: Wound/Laceration Stated Complaint: skin scrape wont stop bleeding post op Time Seen by Provider: 10/17/21 23:10 Source: patient Mode of arrival: ambulatory Limitations: no limitations History of Present Illness HPI narrative: 71year-old female presents to ED from bleeding from biopsy wound on her chest wall. Patient had biopsy done at [facility] yesterday and since for seizure has had bleeding from the wound on her chest. Patient denies any weakness, dizziness, chest pain, shortness of breath. Related Data Home Medications Medication Instructions Recorded Confirmed aspirin 81 mg tablet,delayed 81 mg PO QAM 01/26/20 02/01/21 release famotidine 20 mg tablet 20 mg PO DAILY 01/26/20 02/01/21 folic acid 1 mg tablet 1 mg PO DAILY 01/26/20 02/01/21 rosuvastatin 10 mg tablet 10 mg PO BEDTIME 01/26/20 02/01/21 allopurinol 100 mg tablet 100 mg PO DAILY 03/08/20 02/01/21 docusate sodium 100 mg capsule 100 mg PO BID PRN Constipation 03/08/20 02/01/21 (DOK) tacrolimus 1 mg capsule, 1 mg PO BID 03/08/20 02/01/21 immediate-release albuterol sulfate 90 mcg/actuation 2 puff inhalation Q4-6H PRN 08/07/20 02/01/21 aerosol inhaler (Ventolin HFA) Shortness Of Breath Or Wheezing calcium citrate 200 mg (950 mg) 400 mg PO USEASDIRECTD 08/14/20 02/01/21 tablet cholecalciferol (vitamin D3) 50 1 tab PO DAILY 08/14/20 02/01/21 mcg (2,000 unit) tablet clonazepam 0.5 mg tablet 1 tab PO DAILY PRN panic attack 08/14/20 02/01/21 hydroxyzine HCl 25 mg tablet 1 tab PO TID PRN Itching 08/14/20 02/01/21 ondansetron HCl 4 mg tablet 4 mg PO Q8H PRN Nausea 08/14/20 02/01/21 (Zofran) ropinirole 0.5 mg tablet 1 tab PO BEDTIME 08/14/20 02/01/21 venlafaxine 25 mg tablet 1 tab PO DAILY 08/14/20 02/01/21 famotidine 20 mg tablet 1 tab PO BEDTIME PRN Acid Reflux 02/01/21 02/01/21 levothyroxine 100 mcg tablet 1 tab PO DAILY 02/01/21 02/01/21 oxycodone 5 mg tablet 1 tab PO BID PRN pain 02/01/21 02/01/21 Previous Rx's Medication Instructions Recorded amlodipine 5 mg tablet 5 mg PO DAILY #0 tabs 02/07/21 metoprolol tartrate 25 mg tablet 25 mg PO BID #0 tabs 02/07/21 Allergies Allergy/AdvReac Type Severity Reaction Status Date / Time Sulfa (Sulfonamide Allergy Intermediate HIVES Verified 08/14/20 10:44 Antibiotics) Heparin Analogues Allergy Unknown UNKNOWN Verified 08/14/20 10:44 [Heparin Agents] verapamil Allergy Unknown unknown Verified 08/14/20 10:44 Review of Systems Review of Systems: bleeding from postop ordered Yes all other systems are reviewed and are negative [facility] Past Medical History Medical History (Updated 10/18/21 @ 01:02 by CHUCKY Rios) Anemia Anxiety and depression Arthritis Asthma AV fistula Bronchitis Cirrhosis COPD (chronic obstructive pulmonary disease) Coronary artery disease COVID-19 vaccine series completed DJD (degenerative joint disease) of thoracic spine End-stage renal disease (ESRD) GERD (gastroesophageal reflux disease) Gout Hemodialysis patient History of blood transfusion History of transcatheter aortic valve replacement (TAVR) Hyperkalemia Left inguinal hernia Murmur Neuropathy Patient on waiting list for kidney transplant Surgical History (Updated 02/02/21 @ 14:02 by Marko Umanzor MD) History of liver transplant History of surgery on arm Hx of colonoscopy Social History Social History Household Members: Unknown / Unable to assess Housing: Unknown / Unable to assess Are you a primary certified social workers in health care to a significant other at home: No Unable to assess alcohol history related to: Unable to respond Alcohol intake: former Year quit: 2008 Patient Tobacco Use Status: Tobacco use Unknown Advance Directives: Yes Advance Directives on File: Yes Advance Directives Date on File: 03/08/20 service: No Current occupational status: retired Physical Exam Vital Signs: Vital Signs: Last Vital Signs Temp 99.1 F 10/17/21 22:47 Pulse 78 10/17/21 22:47 Resp 18 10/17/21 22:47 BP 135/87 10/17/21 22:47 Pulse Ox 99 10/17/21 22:47 O2 Del Method 10/17/21 22:47 BMI result Body Mass Index 23.6 Const: General: cooperative, healthy appearing, comfortable, no acute distress, well developed, alert, awake and Physically active Orientation/consciousness: patient oriented x3 HEENT: Head: Yes normal to inspection, Yes No palpable skull fracture present, Yes normocephalic, Yes atraumatic and No abrasion Eyes: General: appearance normal, both eyes and all related structures Neck: Neck: Yes normal visual inspection, Yes full ROM, Yes no lymphadenopathy, Yes no meningeal signs, Yes trachea midline, Yes supple, No anterior neck swelling and No tender Chest: Chest palpation & inspection: normal inspection of the chest and normal palpation of entire chest wall Chest/axillae images: 1. Bleeding from biopsy wound Resp: Effort & Inspection: normal respiratory effort and able to speak in complete sentences Auscultation: clear to auscultation bilaterally Cardio: Jugular venous distension: no JVD Heart sounds: S1 normal heart sound present and S2 normal heart sound present GI: Inspection: Yes normal to inspection and No abdominal wall ecchymosis Palpation (GI): Soft to palpation, not firm, nontender, no guarding and not rigid : General: No CVA tenderness and Yes no CVA tenderness Back/Spine/Pelvis: Back: no CVA tenderness, No CVA tenderness and No back tenderness Skin: General skin exam: no rashes or lesions noted and elasticity normal Neuro: General: patient oriented x3, gait normal, tone normal and no meningeal signs Cranial nerves: Yes CN's II-XII intact bilaterally Extrem: General: Yes normal to inspection and Yes full ROM Psych: Appearance: grossly normal, well kempt and not disheveled Course Course Course Narrative: Silver nitrate Reevaluation(s) Reevaluation #1: Dr. Valle placed silver nitrate on wound and wrapped with surgeon Gelfoam and bleeding resolved. Time: 01:00 MDM - Wound/Laceration MDM Narrative Medical decision making narrative: post op wound Discharge Plan Discharge Clinical Impression: Bleeding from wound Patient Disposition: Home, Self-Care Instructions: Wound Dehiscence (ED) Additional Instructions: Please follow up wtih PCP and Dermalotogist who perfomred procedure. REturn to the ED immediatley for worsening bleeding, chest pain, shortness of breath, fever, chills, weakness, dizzniess, or any other concerning symptoms. Prescriptions: No Action albuterol sulfate [Ventolin HFA] 90 mcg/actuation Hfa Aerosol Inhaler 2 puff INHALATION Q4-6H PRN (Reason: Shortness Of Breath Or Wheezing) venlafaxine 25 mg tablet 1 tab PO DAILY clonazepam 0.5 mg tablet 1 tab PO DAILY PRN (Reason: panic attack) ropinirole 0.5 mg tablet 1 tab PO BEDTIME hydroxyzine HCl 25 mg tablet 1 tab PO TID PRN (Reason: Itching) calcium citrate 200 mg (950 mg) Tablet 400 mg PO USEASDIRECTD Label Comments: PREVIOUSLY WAS DAILY BUT REPORTS ONLY DIALYSIS DAYS NOW Rx Instructions: DIALYSIS DAYS cholecalciferol (vitamin D3) 50 mcg (2,000 unit) tablet 1 tab PO DAILY ondansetron HCl [Zofran] 4 mg Tablet 4 mg PO Q8H PRN (Reason: Nausea) allopurinol 100 mg tablet 100 mg PO DAILY docusate sodium [DOK] 100 mg capsule 100 mg PO BID PRN (Reason: Constipation) tacrolimus 1 mg capsule 1 mg PO BID levothyroxine 100 mcg tablet 1 tab PO DAILY oxycodone 5 mg tablet 1 tab PO BID PRN (Reason: pain) famotidine 20 mg tablet 1 tab PO BEDTIME PRN (Reason: Acid Reflux) amlodipine 5 mg Tablet 5 mg PO DAILY Qty: 0 0RF Protocol: Hold for SBP< HOLD for SBP < : 90 metoprolol tartrate 25 mg Tablet 25 mg PO BID Qty: 0 0RF Protocol: Hold for SBP/HR < HOLD for SBP < : 90 HOLD for HR < : 60 rosuvastatin 10 mg tablet 10 mg PO BEDTIME aspirin 81 mg tablet,delayed release (DR/EC) 81 mg PO QAM famotidine 20 mg tablet 20 mg PO DAILY folic acid 1 mg tablet 1 mg PO DAILY Interventions: ED Discharge Assessment Last Done: 10/18/21 01:11 Discharge Date/Time: 10/18/21 01:11 Print Language: Occitan
== END 2021-10-18 01:11 | disposition home or self-care (01) ==
PROVIDERS: Emergency Provider Internal Medicine
DX: Z48.00 Encounter for change or removal of nonsurgical wound dressing (principal); Z79.899 Other long term (current) drug therapy
CPT/HCPCS: 99283

== ENCOUNTER 2022-01-13 17:22 | Inpatient (IN) | payer OTHER, SELFPAY ==
--- NOTE | ~2022-01-13 | XR_ITS ---
EXAMINATION: XR CHEST CLINICAL INFORMATION: Elevated BNP COMPARISON: 02/01/2021 TECHNIQUE: Frontal view of the chest was obtained. FINDINGS: The previously seen multifocal airspace disease at the time of the prior study has cleared. Heart size is normal without evidence of CHF, infiltrates or effusions. Some mild bibasilar atelectasis is present. Again noted are surgical clips near the GE junction along with a TAVR and spinal electrode overlying the midthoracic spine. Mild right hemidiaphragm elevation again noted. XR/XR chest 1V IMPRESSION: No acute intrathoracic disease. Airspace disease seen previously has cleared.
--- NOTE | ~2022-01-13 | US_ITS ---
EXAMINATION: US VENOUS ULTRASOUND WITH DOPPLER LOWER EXTREMITY, LEFT CLINICAL INFORMATION: Left lower extremity swelling and redness. COMPARISON: None TECHNIQUE: Ultrasound of the deep veins is performed from the hip to the calf with compression sonography and color and pulse Doppler assessment. Spectral analysis with color-flow imaging is performed. FINDINGS: There is normal venous compression and respiratory variation and augmented flow. The visualized common femoral vein, superficial femoral vein, profunda femoral vein, popliteal vein, and the trifurcation region shows no evidence of deep venous thrombosis. Unable to evaluate posterior tibial and peroneal veins due to extreme pain and tenderness. There is no significant popliteal fossa cyst. If the patient's symptoms persist, followup ultrasound in 5 days 7 days might be of value to exclude proximal propagation from a non-visualized calf vein. US/US venous duplex LE IMPRESSION: No DVT demonstrated in the left lower extremity.
[2022-01-13 17:46] VITALS: BP 159/68; PULSE 77; RESP 18; TEMP 36.6; O2SAT 96; BMI 24.3
[2022-01-13 18:18] LABS: MANUAL DIFF FLAG NO
[2022-01-13 18:22] LABS: Basophils Percent Auto 0.2 % (0-2); Eosinophils Absolute Auto 0.2 X10*3/uL (0.0-0.4); Eosinophils Percent Auto 1.7 % (0-4); Hematocrit 39.8 % (37.0-47.0); Hemoglobin 12.8 g/dl (12.0-16.0); Imm Gran Abs Auto 0.04 X10*3/uL (0.00-0.03); Imm Gran Pct Auto 0.4 % (0.0-0.4); Lymphocytes Absolute Auto 1.2 X10*3/uL (1.2-4.9); Lymphocytes Percent Auto 11.4 % (20-40); Mean Corpuscular HGB Conc 32.2 g/dl (31.0-35.0); Mean Corpuscular Hemoglobin 29.5 pg (27.0-33.0); Mean Corpuscular Volume 91.7 fL (80.0-98.0); Monocytes Absolute Auto 0.7 X10*3/uL (0.1-1.2); Monocytes Percent Auto 6.8 % (2-11); Neutrophils Absolute Auto 8.3 x10*3/uL (2.0-8.3); Neutrophils Percent Auto 79.5 % (45-73); Platelet Count 178 X10*3/uL (160-400); Red Blood Count 4.34 X10*6/uL (4.20-5.50); Red Cell Distribution Width 14.2 % (11.0-16.0); White Blood Count 10.4 X10*3/uL (4.8-10.8)
[2022-01-13 18:29] LABS: Lactic Acid 0.9 mmol/L (0.5-2.0)
[2022-01-13 18:56] LABS: Alanine Aminotransferase 14 U/L (0-31); Albumin Level 3.8 g/dL (3.5-5.0); Alkaline Phosphatase 92 U/L (39-117); Anion Gap 25 (12-20); Aspartate Amino Transferase 18 U/L (5-31); Bilirubin Total 0.6 mg/dL (0.0-1.0); Blood Urea Nitrogen 79 mg/dL (9-16); Calcium 9.3 mg/dL (8.4-10.2); Carbon Dioxide 23 mmol/L (22-29); Chloride 89 mmol/L (96-108); Creatinine Clr Calc Pharmacy 5.4; Estimated Glomerular Filt Rate 4; Glucose Random 121 mg/dL (60-115); Potassium 6.1 mmol/L (3.3-5.1); Sodium 131 mmol/L (135-145); Total Protein 6.7 g/dL (6.5-8.0)
--- NOTE | 2022-01-13 19:27 | ED_ITS ---
HPI - General Adult General Chief complaint: General Medical Stated complaint: leg injury, swollen, red Time Seen by Provider: 01/13/22 18:33 Source: patient Mode of arrival: ambulatory Limitations: no limitations History of Present Illness HPI narrative: 69-year-old female with a past medical history of alcohol use cirrhosis, kidney failure on dialysis (T/T/Sat), asthma, COPD, CAD presenting to the emergency dep artment with left lower leg pain, swelling, redness x4 days. Patient states this began night after her dialysis appointment. She does not recall where the redness began, however she states it has gotten severely worse. The patient skipped her dialysis appointment on Friday due to pain. Patient states she reports it is painful to the touch 4th worse with ambulation, better at rest. Reports it is severe, excruciating 10/10 pain. She item she has subjective fevers and chills. She states he has tried taking oxycodone for the pain and it did not relieve her pain. Patient denies history of DVT/PE. Patient states she smokes previously in her life but has not in many years. Ana Lilia florence takes 81 mg of aspirin daily. Denies chest pain, shortness of breath, dizziness, weakness, nausea,vomiting. Denies any trauma to the area Related Data Home Medications Medication Instructions Recorded Confirmed aspirin 81 mg tablet,delayed 81 mg PO QAM 01/26/20 02/01/21 release famotidine 20 mg tablet 20 mg PO DAILY 01/26/20 02/01/21 folic acid 1 mg tablet 1 mg PO DAILY 01/26/20 02/01/21 rosuvastatin 10 mg tablet 10 mg PO BEDTIME 01/26/20 02/01/21 allopurinol 100 mg tablet 100 mg PO DAILY 03/08/20 02/01/21 docusate sodium 100 mg capsule 100 mg PO BID PRN Constipation 03/08/20 02/01/21 (DOK) tacrolimus 1 mg capsule, 1 mg PO BID 03/08/20 02/01/21 immediate-release albuterol sulfate 90 mcg/actuation 2 puff inhalation Q4-6H PRN 08/07/20 02/01/21 aerosol inhaler (Ventolin HFA) Shortness Of Breath Or Wheezing calcium citrate 200 mg (950 mg) 400 mg PO USEASDIRECTD 08/14/20 02/01/21 tablet cholecalciferol (vitamin D3) 50 1 tab PO DAILY 08/14/20 02/01/21 mcg (2,000 unit) tablet clonazepam 0.5 mg tablet 1 tab PO DAILY PRN panic attack 08/14/20 02/01/21 hydroxyzine HCl 25 mg tablet 1 tab PO TID PRN Itching 08/14/20 02/01/21 ondansetron HCl 4 mg tablet 4 mg PO Q8H PRN Nausea 08/14/20 02/01/21 (Zofran) ropinirole 0.5 mg tablet 1 tab PO BEDTIME 08/14/20 02/01/21 venlafaxine 25 mg tablet 1 tab PO DAILY 08/14/20 02/01/21 famotidine 20 mg tablet 1 tab PO BEDTIME PRN Acid Reflux 02/01/21 02/01/21 levothyroxine 100 mcg tablet 1 tab PO DAILY 02/01/21 02/01/21 oxycodone 5 mg tablet 1 tab PO BID PRN pain 02/01/21 02/01/21 fluorouracil 5 % topical cream 1 appl topical BID 11/27/21 Previous Rx's Medication Instructions Recorded amlodipine 5 mg tablet 5 mg PO DAILY #0 tabs 02/07/21 metoprolol tartrate 25 mg tablet 25 mg PO BID #0 tabs 02/07/21 hydrocortisone 2.5 % topical cream 1 appl topical BID PRN skin 11/27/21 irritation #20 grams Allergies Allergy/AdvReac Type Severity Reaction Status Date / Time Sulfa (Sulfonamide Allergy Intermediate HIVES Verified 08/14/20 10:44 Antibiotics) Heparin Analogues Allergy Unknown UNKNOWN Verified 08/14/20 10:44 [Heparin Agents] verapamil Allergy Unknown unknown Verified 08/14/20 10:44 Review of Systems Review of Systems: Constitutional : No Weight loss, No Fever, No Chills, No Fatigue, No Malaise ENT/Mouth : No sore throat, No Rhinorrhea Eyes: No Eye Pain, No Swelling, No Redness Cardiovascular : No Chest Pain, No SOB, No Dyspnea on Exertion, No Orthopnea, No Edema, No Palpitations Respiratory : No Cough, No Sputum, No Wheezing Gastrointestinal : No Nausea, No Vomiting, No Diarrhea, No Constipation, No abdominal Pain, No Hematochezia, No Melena Genitourinary : No Dysuria, No Urinary Frequency, No Hematuria, Musculoskeletal : + joint pain, No Myalgias, Joint Swelling Skin : No Skin Lesions, No rash, + redness to LLE Neuro : No Weakness, No Numbness, No Dizziness, No Headache Psych : No Anxiety/Panic, No Depression All other systems reviewed and are negative Yes all other systems are reviewed and are negative [facility] Past Medical History Attestation statement: The following information was validated with the patient. Source: old records reviewed and nursing notes reviewed Medical History Anemia Anxiety and depression Arthritis Asthma AV fistula Bronchitis Cirrhosis COPD (chronic obstructive pulmonary disease) Coronary artery disease COVID-19 vaccine series completed DJD (degenerative joint disease) of thoracic spine End-stage renal disease (ESRD) GERD (gastroesophageal reflux disease) Gout Hemodialysis patient History of blood transfusion History of transcatheter aortic valve replacement (TAVR) Hyperkalemia Left inguinal hernia Murmur Neuropathy Patient on waiting list for kidney transplant Surgical History History of liver transplant History of surgery on arm Hx of colonoscopy Social History Social History Household Members: Unknown / Unable to assess Housing: Unknown / Unable to assess Are you a primary acute care occupational therapist to a significant other at home: No Unable to assess alcohol history related to: Unable to respond Alcohol intake: former Year quit: 2008 Patient Tobacco Use Status: Never used Tobacco Use of substances other than those prescribed or required for medical reasons: No Advance Directives: Yes Advance Directives on File: Yes Advance Directives Date on File: 03/08/20 service: No Current occupational status: retired Physical Exam ED Vital Signs: Vital Signs - 24 hr 01/13/22 17:46 01/13/22 20:38 01/13/22 21:31 Temperature 97.8 F 98.3 F 98.5 F Pulse Rate 77 74 104 H Respiratory Rate 18 14 15 Blood Pressure 159/68 H 178/85 H 160/56 H Pulse Oximetry 96 98 96 Oxygen Delivery Method Room Air Room Air BMI result Body Mass Index 24.3 vss Appearance: Alert.? Oriented X3.? No acute distress.? Head: Normocephalic, atraumatic, no step-offs or deformities Eyes: Pupils equal, round and reactive to light.? Neck: Normal inspection.? Neck supple.? CVS: Normal heart rate and rhythm.? Pulses normal.? Respiratory: No respiratory distress.? Breath sounds normal.? Abdomen: Soft and nontender.? Skin: Skin warm and dry.? Normal skin color.? Normal skin turgor.? Extremities: 3+ non pitting edema on the LLE knee down and 2+ non pitting edema on the RLE knee down.?- jossie bilaterally. No calf ttp. global weakness. Erythematous, tender, LLE from the knee down. painful to the touch. Full ROM to bilateral knees, pain free, pulses 2+ dorsalis pedis, posterior tibialis and anterior tibiallis equal and bilateral and normal sensation bilaterally to lower extremities. Neuro: Oriented X 3.? No motor deficit.? No sensory deficit. CN 2-12 intact Course Reevaluation(s) Reevaluation #1: CBC within normal limits. Chemistry reveals sodium of 131, patient will receive IV fluids. Potassium of 6.1 will receive Lokelma insulin D50 calcium gluconate, albuterol. Patient's chloride 89 will receive IV fluids. Patient is noted to have an elevated anion gap. BUN and creatinine significantly elevated 79 for BUN creatinine 9.56 consistent with patient missing dialysis on Friday. Will reach out to Nephrology as I plan to admit patient and she will require hemodialysis. Random glucose of 121. Lactic acid negative. Will initiate ceftriaxone and vancomycin for suspected erysipelas to left lower extremity. Time: 20:52 Reevaluation #2: Spoke to Dr. Draper, will dialyze patient tomorrow morning. Repeat BMP pending. Time: 23:17 Medical Decision Making [facility] Narrative Medical decision making narrative: 1834 71-year-old female presents with painful and red left lower extremity x4 days worsening. Patient also on hemodialysis and reports she missed dialysis on Friday secondary to pain. No history of DVT/PE. Subjective fevers and chills Physical examination with a significantly red and swollen left lower extremity from the knee down. Normal pulses. Normal sensation however very tender to the touch. Images in chart. Most likely erysipelas. Other differentials include cellulitis. Low suspicion for septic joint. Will rule out DVT although unlikely. No signs of arterial occlusion at this time. Will rule out electrolyte abnormalities as patient missed dialysis. Plan at this time is DVT study, blood cultures, lactic acid, basic labs, EKG. Medical Records Medical records reviewed: Yes I reviewed the patient's medical records. Lab Data Lab results reviewed: Yes I reviewed the patient's lab results. Result diagrams: 01/13/22 18:01 01/13/22 18:01 Labs: Lab Results 01/13/22 01/13/22 01/13/22 Range/Units 18:01 18:01 18:02 WBC 10.4 (4.8-10.8) X10*3/uL RBC 4.34 D (4.20-5.50) X10*6/uL Hgb 12.8 D (12.0-16.0) g/dl Hct 39.8 D (37.0-47.0) % MCV 91.7 (80.0-98.0) fL MCH 29.5 (27.0-33.0) pg MCHC 32.2 (31.0-35.0) g/dl RDW 14.2 (11.0-16.0) % Plt Count 178 (160-400) X10*3/uL MPV 11.0 (9.4-12.3) fL Immature Gran % (Auto) 0.4 (0.0-0.4) % Neut % (Auto) 79.5 H (45-73) % Lymph % (Auto) 11.4 L (20-40) % [place] % (Auto) 6.8 (2-11) % Eos % (Auto) 1.7 (0-4) % Baso % (Auto) 0.2 (0-2) % Lymph # (Auto) 1.2 (1.2-4.9) X10*3/uL [place] # (Auto) 0.7 (0.1-1.2) X10*3/uL Eos # (Auto) 0.2 (0.0-0.4) X10*3/uL Baso # (Auto) 0.0 (0.0-0.2) X10*3/uL Abs Immat Gran (auto) 0.04 H (0.00-0.03) X10*3/uL Absolute Neuts (auto) 8.3 (2.0-8.3) x10*3/uL Absolute Nucleated RBC 0.000 (0.0-0.012) X10*3/uL Nucleated RBC % (auto) 0.0 (0.0-0.2) /100WBC Sodium 131 L (135-145) mmol/L Potassium 6.1 H* D (3.3-5.1) mmol/L Chloride 89 L (96-108) mmol/L Carbon Dioxide 23 (22-29) mmol/L Anion Gap 25 H (12-20) BUN 79 H (9-16) mg/dL Creatinine 9.56 H* (0.5-1.4) mg/dL Estim Creat Clear Calc 5.4 Estimated GFR 4 Random Glucose 121 H (60-115) mg/dL Lactic Acid 0.9 (0.5-2.0) mmol/L Calcium 9.3 D (8.4-10.2) mg/dL Total Bilirubin 0.6 (0.0-1.0) mg/dL AST 18 (5-31) U/L ALT 14 (0-31) U/L Alkaline Phosphatase 92 (39-117) U/L B-Natriuretic Peptide (<100) pg/mL Total Protein 6.7 (6.5-8.0) g/dL Albumin 3.8 (3.5-5.0) g/dL 01/13/22 Range/Units 18:02 WBC (4.8-10.8) X10*3/uL RBC (4.20-5.50) X10*6/uL Hgb (12.0-16.0) g/dl Hct (37.0-47.0) % MCV (80.0-98.0) fL MCH (27.0-33.0) pg MCHC (31.0-35.0) g/dl RDW (11.0-16.0) % Plt Count (160-400) X10*3/uL MPV (9.4-12.3) fL Immature Gran % (Auto) (0.0-0.4) % Neut % (Auto) (45-73) % Lymph % (Auto) (20-40) % [place] % (Auto) (2-11) % Eos % (Auto) (0-4) % Baso % (Auto) (0-2) % Lymph # (Auto) (1.2-4.9) X10*3/uL [place] # (Auto) (0.1-1.2) X10*3/uL Eos # (Auto) (0.0-0.4) X10*3/uL Baso # (Auto) (0.0-0.2) X10*3/uL Abs Immat Gran (auto) (0.00-0.03) X10*3/uL Absolute Neuts (auto) (2.0-8.3) x10*3/uL Absolute Nucleated RBC (0.0-0.012) X10*3/uL Nucleated RBC % (auto) (0.0-0.2) /100WBC Sodium (135-145) mmol/L Potassium (3.3-5.1) mmol/L Chloride (96-108) mmol/L Carbon Dioxide (22-29) mmol/L Anion Gap (12-20) BUN (9-16) mg/dL Creatinine (0.5-1.4) mg/dL Estim Creat Clear Calc Estimated GFR Random Glucose (60-115) mg/dL Lactic Acid (0.5-2.0) mmol/L Calcium (8.4-10.2) mg/dL Total Bilirubin (0.0-1.0) mg/dL AST (5-31) U/L ALT (0-31) U/L Alkaline Phosphatase (39-117) U/L B-Natriuretic Peptide 808 H (<100) pg/mL Total Protein (6.5-8.0) g/dL Albumin (3.5-5.0) g/dL Critical Care Time Critical Care Time Critical Care Time: Yes Total Critical Care Time: 45 Attestation: I attest to this time spent taking care of the patient, obtaining history, physical, reviewing labs, imaging, speaking to my attending, speaking to specialist. Discharge Plan Discharge Clinical Impression: End-stage renal disease (ESRD), Acute hyperkalemia, Erysipelas Patient Disposition: Admitted As Inpatient
--- NOTE | 2022-01-13 19:32 | ECG_ITS ---
Test Reason : LEG SWELLING Blood Pressure : / mmHG Vent. Rate : 075 BPM Atrial Rate : 075 BPM P-R Int : 204 ms QRS Dur : 096 ms QT Int : 390 ms P-R-T Axes : 082 -13 029 degrees QTc Int : 435 ms Normal sinus rhythm Septal infarct (cited on or before 02-FEB-2021) Intra-ventricular conduction delay Borderline ECG When compared with ECG of 02-FEB-2021 09:21, Premature ventricular complexes are no longer Present Questionable change in initial forces of Septal leads T wave inversion no longer evident in Anterolateral leads QT has shortened Referred By: Homer Darden Electronically Signed By:SAVITA ORDOÑEZ MD
[2022-01-13] MEDS: cefTRIAXone sodium 1 GM in 0.9 % Sodium Chloride 50 ML IV (20:30)
[2022-01-13] MEDS: Sodium Zirconium Cyclosilicate 10 GM POWD.PACK PO (20:31)
[2022-01-13] MEDS: Morphine Sulfate 4 MG/ML CARTRIDGE IVPUSH (20:31)
[2022-01-13 20:38] VITALS: BP 178/85; PULSE 74; RESP 14; TEMP 36.8; O2SAT 98
[2022-01-13] MEDS: Albuterol Sulfate 7.5 MG, Albuterol Sulfate (0.083%) 2.5 MG 10 MG INHALE (20:48)
--- NOTE | 2022-01-13 20:50 | PC.NURSE ---
Pt aox4. Breaths even and unlabored. NSR on monitor with t wave elevation. Serum potassium 6.1. Abd soft and non tender with small wound noted on right upper quadrant. Left leg is warm, red, and edematous. Pt reports left leg pain, 10/10. Respiratory therapist at the bedside to administer medication. Pt aware of plan of care.
[2022-01-13 21:01] LABS: B Type Natriuretic Peptide 808 pg/mL (<100)
[2022-01-13] MEDS: vancomycin HCL 1,250 MG in 0.9 % Sodium Chloride 250 ML 166.67 MG IV (21:09)
[2022-01-13] MEDS: Calcium Gluconate/NaCl,Iso-Osm 1 GM/50 ML PLAST..BAG IV (21:13)
[2022-01-13] MEDS: Dextrose 50 % 25 GM/50 ML SYRINGE IVPUSH (21:15)
--- NOTE | 2022-01-13 21:17 | P.HPHOSP_ITS ---
History of Present Illness Date of Service: 01/13/22 Chief Complaint: Leg pain This is a 71-year-old female with a pertinent history of ESRD on hemodialysis, alcoholic cirrhosis status post liver transplant, hypothyroidism, essential hypertension, mood disorder, gout, obstructive lung disease not on home oxygen who presents to the emergency department for evaluation of left lower extremity pain. Patient states it started about 3 days prior to presentation. It is associated with redness from left knee to left ankle. The pain is constant, progressive, nonradiating and without any relieving and aggravating factors. Patient has difficulty ambulating due to the pain and missed her hemodialysis session on 01/12/2022. Denies any trauma. Does endorse chills but denies fever, chills, chest discomfort, palpitations, shortness of breath, changes in bowel habits. States a similar episode of lower extremity pain and redness happened about 12 years ago when she was bit by a cat. In the emergency department, patient was found to be hyperkalemic at 6.1. Nephrology was consulted for severe hyperkalemia Review of Systems Review of Systems: All 13 review of systems are negative except as noted in [facility] Medical History Anemia Anxiety and depression Arthritis Asthma AV fistula Bronchitis Cirrhosis COPD (chronic obstructive pulmonary disease) Coronary artery disease COVID-19 vaccine series completed DJD (degenerative joint disease) of thoracic spine End-stage renal disease (ESRD) GERD (gastroesophageal reflux disease) Gout Hemodialysis patient History of blood transfusion History of transcatheter aortic valve replacement (TAVR) Hyperkalemia Left inguinal hernia Murmur Neuropathy Patient on waiting list for kidney transplant Surgical History History of liver transplant History of surgery on arm Hx of colonoscopy Social History Household Members: Unknown / Unable to assess Housing: Unknown / Unable to assess Are you a primary nurse wound care to a significant other at home: No Unable to assess alcohol history related to: Unable to respond Alcohol intake: former Year quit: 2008 Patient Tobacco Use Status: Never used Tobacco Use of substances other than those prescribed or required for medical reasons: No Advance Directives: Yes Advance Directives on File: Yes Advance Directives Date on File: 03/08/20 service: No Current occupational status: retired Meds Allergies Allergy/AdvReac Type Severity Reaction Status Date / Time Sulfa (Sulfonamide Allergy Intermediate HIVES Verified 08/14/20 10:44 Antibiotics) Heparin Analogues Allergy Unknown UNKNOWN Verified 08/14/20 10:44 [Heparin Agents] verapamil Allergy Unknown unknown Verified 08/14/20 10:44 Active Medications: Current Medications Acetaminophen (Acetaminophen 325 Mg Tablet) 650 mg PO Q6H PRN PRN Reason: Pain, Mild (Pain Scale 1-3) Albuterol/Ipratropium (Albuterol/Iprat 2.5/0.5mg 3 Ml Ampul.Neb) 3 ml INHALE Q4H PRN PRN Reason: Wheezing Enoxaparin Sodium (Enoxaparin Sodium 30 Mg/0.3 Ml Syringe) 30 mg SUBCUT Q24H SC H Calcium Gluconate (Calcium Gluconate) 1 gm in 50 mls @ 50 mls/hr IV ONCE ONE Stop: 01/13/22 21:22 Last Admin: 01/13/22 21:13 Dose: 50 mls/hr Vancomycin HCl 1,250 mg/ (Sodium Chloride) 250 mls @ 166.667 mls/hr IV ONCE ONE Stop: 01/13/22 22:14 Last Admin: 01/13/22 21:09 Dose: 166.67 mls/hr Calcium Gluconate (Calcium Gluconate) 1 gm in 50 mls @ 50 mls/hr IV ONCE ONE Stop: 01/13/22 22:12 Melatonin (Melatonin 3 Mg Tablet) 6 mg PO BEDTIME PRN PRN Reason: Insomnia Ondansetron HCl (Ondansetron Hcl 4 Mg/2 Ml Vial) 4 mg IVPUSH Q8H PRN PRN Reason: Nausea and Vomiting Pharmacy Consult (Consult Rx Vancomycin Dosing) 1 each MISCELLANE DAILY PRN PRN Reason: Consult order Pharmacy Consult (Consult Rx Vancomycin Dosing) 1 each MISCELLANE DAILY PRN PRN Reason: Consult order Sodium Chloride (0.9 % Sodium Chloride Flush 3 Ml Syringe) [facility] Sodium Zirconium Cyclosilicate (Sodium Zirconium Cyclosilicate 10 Gm Powd.Pack) 10 gm PO BID [facility] Home Medications Medication Instructions Recorded Confirmed Last Taken Type aspirin 81 mg tablet,delayed 81 mg PO QAM 01/26/20 02/01/21 08/13/20 History release famotidine 20 mg tablet 20 mg PO DAILY 01/26/20 02/01/21 08/14/20 09:00 History folic acid 1 mg tablet 1 mg PO DAILY 01/26/20 02/01/21 08/13/20 History rosuvastatin 10 mg tablet 10 mg PO BEDTIME 01/26/20 02/01/21 08/13/20 History allopurinol 100 mg tablet 100 mg PO DAILY 03/08/20 02/01/21 08/13/20 History docusate sodium 100 mg capsule 100 mg PO BID PRN Constipation 03/08/20 02/01/21 Unknown History (DOK) tacrolimus 1 mg capsule, 1 mg PO BID 03/08/20 02/01/21 08/14/20 09:00 History immediate-release albuterol sulfate 90 mcg/actuation 2 puff inhalation Q4-6H PRN 08/07/20 02/01/21 Unknown History aerosol inhaler (Ventolin HFA) Shortness Of Breath Or Wheezing calcium citrate 200 mg (950 mg) 400 mg PO USEASDIRECTD 08/14/20 02/01/21 Unknown History tablet cholecalciferol (vitamin D3) 50 1 tab PO DAILY 08/14/20 02/01/21 08/13/20 History mcg (2,000 unit) tablet clonazepam 0.5 mg tablet 1 tab PO DAILY PRN panic attack 08/14/20 02/01/21 Unknown History hydroxyzine HCl 25 mg tablet 1 tab PO TID PRN Itching 08/14/20 02/01/21 Unknown History ondansetron HCl 4 mg tablet 4 mg PO Q8H PRN Nausea 08/14/20 02/01/21 Unknown History (Zofran) ropinirole 0.5 mg tablet 1 tab PO BEDTIME 08/14/20 02/01/21 08/13/20 History venlafaxine 25 mg tablet 1 tab PO DAILY 08/14/20 02/01/21 08/14/20 History famotidine 20 mg tablet 1 tab PO BEDTIME PRN Acid Reflux 02/01/21 02/01/21 Unknown History levothyroxine 100 mcg tablet 1 tab PO DAILY 02/01/21 02/01/21 Unknown History oxycodone 5 mg tablet 1 tab PO BID PRN pain 02/01/21 02/01/21 Unknown History fluorouracil 5 % topical cream 1 appl topical BID 11/27/21 Unknown History Physical Exam Vital Signs and Narrative: Vital Signs: Last Vital Signs Temp 98.3 F 01/13/22 20:38 Pulse 74 01/13/22 20:38 Resp 14 01/13/22 20:38 BP 178/85 H 01/13/22 20:38 Pulse Ox 98 01/13/22 20:38 O2 Del Method 01/13/22 17:46 BMI result Body Mass Index 24.3 Elderly female lying in bed in no distress Neck supple, no JVD Regular rate and rhythm, S1-S2 heard Decreased breath sound at bases, no wheezing or crackles appreciated Abdomen soft nontender, no guarding, no rigidity Patient is awake, alert and oriented to self, place, time and person ; no focal motor deficit Skin: Erythema present left lower extremity extending from knee to ankle with clear demarcation, associated warmth and tenderness present Psych: Normal mood Results Labs CBC and Chem 7: 01/13/22 18:01 01/13/22 18:01 Labs: Laboratory Results - last 24 hr 01/13/22 01/13/22 01/13/22 18:01 18:01 18:02 MCV 91.7 MCH 29.5 MCHC 32.2 RDW 14.2 Plt Count 178 MPV 11.0 Immature Gran % (Auto) 0.4 Neut % (Auto) 79.5 H Lymph % (Auto) 11.4 L [place] % (Auto) 6.8 Eos % (Auto) 1.7 Baso % (Auto) 0.2 Lymph # (Auto) 1.2 [place] # (Auto) 0.7 Eos # (Auto) 0.2 Baso # (Auto) 0.0 Abs Immat Gran (auto) 0.04 H Absolute Neuts (auto) 8.3 Absolute Nucleated RBC 0.000 Nucleated RBC % (auto) 0.0 Anion Gap 25 H Estim Creat Clear Calc 5.4 Estimated GFR 4 Random Glucose 121 H Lactic Acid 0.9 Calcium 9.3 D Total Bilirubin 0.6 AST 18 ALT 14 Alkaline Phosphatase 92 B-Natriuretic Peptide Total Protein 6.7 Albumin 3.8 01/13/22 18:02 MCV MCH MCHC RDW Plt Count MPV Immature Gran % (Auto) Neut % (Auto) Lymph % (Auto) [place] % (Auto) Eos % (Auto) Baso % (Auto) Lymph # (Auto) [place] # (Auto) Eos # (Auto) Baso # (Auto) Abs Immat Gran (auto) Absolute Neuts (auto) Absolute Nucleated RBC Nucleated RBC % (auto) Anion Gap Estim Creat Clear Calc Estimated GFR Random Glucose Lactic Acid Calcium Total Bilirubin AST ALT Alkaline Phosphatase B-Natriuretic Peptide 808 H Total Protein Albumin Imaging Radiologist's Impressions: Impressions Venous Duplex 01/13/22 19:29 IMPRESSION: No DVT demonstrated in the left lower extremity. Assessment and Plan (1) Acute hyperkalemia: Status: Acute (2) Erysipelas: Status: Acute (3) History of liver transplant: Status: Acute (4) End-stage renal disease (ESRD): Status: Acute Plan This is a 71-year-old female with a pertinent history of ESRD on hemodialysis, alcoholic cirrhosis status post liver transplant, hypothyroidism, essential hypertension, mood disorder, gout, obstructive lung disease not on home oxygen who presents to the emergency department for evaluation of left lower extremity pain. #. Hyperkalemia with EKG changes -due to missed hemodialysis session. Does have peaked T waves on admission. Will admit with cardiac cath lab radiology technologist. Patient given temporizing measures in the ER. Initiating Lokelma b.i.d and add calcium gluconate. Closely follow BMP. Nephrology consulted from the ER, appreciate recommendations. #. Left lower extremity erysipelas -initiating parenteral therapy due to extensive erythema. Will cover for MRSA in this patient with immuno compromising conditions. Continue vancomycin and monitor for improvement. #. End-stage renal disease -Friday//Friday. Nephrology on board as above #. Essential hypertension -continue home p.o. medications #. Mixed hyperlipidemia -on statin #. Mood disorder -continue p.o. medications. Mood stable DVT prophylaxis: Heparin Diet: Low-potassium low-sodium diet Full code Will admit as inpatient for need for IV antibiotics and evaluation and management of hyperkalemia. Quality Stroke Does the patient have a stroke diagnosis?: No VTE Prior VTE?: No VTE Risk Level:: Medical - moderate - high VTE Device Contraindication: Treatment Not Indicated VTE Drug Contraindication: N/A - Med Ordered
[2022-01-13 21:31] VITALS: BP 160/56; PULSE 104; RESP 15; TEMP 36.9; O2SAT 96
[2022-01-13] MEDS: Insulin Regular, Human 100 UNIT/ML 3 ML VIAL IVPUSH (21:37)
--- NOTE | 2022-01-13 21:52 | HE.PHANOTE ---
Lovenox was initially order however it is not recommended in dialysis patients. Best alternative is UFH. Patient has documented allergy the heparin analogues. SEPIDEH Le spoke with patient to confirm the reaction which is hives. Spoke with Dr. Vasquez, he wants to continue with heparin since patient is high risk. I reached out to Mimi to inform her to monitor the patient for a rash/hives after administering. If rash occurs, benadryl can be added on. Che Maier, PharmD
--- NOTE | 2022-01-13 22:03 | PHA.PROG ---
Admission Date/Time: Indication: Cellulitis Weight in k.575 kg Adjusted body weight in K.37 kg [place] body weight in K.9 Obesity Dosing Indication % IBW: 113% Serum Creatinine - Last 168 Hours 01/13/22 18:01 Creatinine 9.56 H* Estimated CrCl and GFR - Last 168 Hours 01/13/22 18:01 Estim Creat Clear Calc 5.4 Estimated GFR 4 Vancomycin Loading Dose: 1250 mg Current Vancomycin Dosing Regimen: dose by post-dialysis random level Date and Time for next Vancomycin Level to be drawn: 01/15 @ 1800 (will adjust if patient get diaylsis sooner) Pharmacist Comments on Vancomycin Plan: Patient's home dialysis schedule is [facility]. Waiting to see when nephro wants patient to relieve dialysis inpatient. Pharmacy will follow daily. Patient receive loading dose vancomyinc 1250 mg in the ED 0n 01/13 @5054. Patient will receive vancomycin post dialysis and will be dose base on a post dialysis random level. Pharmacy will follow and adjust daily as needed Che Maier, LewisD Vancomycin dosing will take advantage of [employer] as a clinical decision support tool that uses Bayesian modeling to calculate individual patient's pharmacokinetic parameters and forecast the patient's drug concentration time course with the target goal AUC 24 range of 400 - 600 mg/L/hr.
[2022-01-13] MEDS: Heparin Sodium,Porcine 5,000 UNIT/ML VIAL 5000 UNIT SUBCUT (22:15)
--- NOTE | 2022-01-13 22:22 | PC.NURSE ---
Pharmacy called regarding Heparin allergy. MD aware and will continue with order. Pharmacy and MD aware of heparin allergy and reaction. Pt aware of plan of care. Will continue to monitor. Pt able to ambulate to bathroom with assistance.
--- NOTE | 2022-01-13 22:27 | PC.NURSE ---
Pt ambulated to the bathroom with assistance. Unable to void at this time.
--- NOTE | 2022-01-14 | PC.NURSE ---
Calcium and Vanco infusion completed.
[2022-01-14] MEDS: Calcium Gluconate/NaCl,Iso-Osm 1 GM/50 ML PLAST..BAG IV ×2 (00:02→07:22)
[2022-01-14 00:12] LABS: INTERNATIONAL NORM RATIO 1.1 (0.9-1.1); Prothrombin Time 13.2 SEC (10.0-13.1)
[2022-01-14 00:13] VITALS: BP 160/69; PULSE 103; RESP 12; TEMP 36.8; O2SAT 97
[2022-01-14 00:34] LABS: Anion Gap 25 (12-20); Blood Urea Nitrogen 81 mg/dL (9-16); Carbon Dioxide 20 mmol/L (22-29); Chloride 92 mmol/L (96-108); Creatinine Clr Calc Pharmacy 5.3; Estimated Glomerular Filt Rate 4; Glucose Random 241 mg/dL (60-115); Potassium 4.8 mmol/L (3.3-5.1); Sodium 132 mmol/L (135-145)
[2022-01-14 00:49] VITALS: BP 158/72; PULSE 96; RESP 16; O2SAT 95
--- NOTE | 2022-01-14 01:37 | PC.NURSE ---
Pt ambulated to the bathroom with assistance. Unable to void at this time.
--- NOTE | 2022-01-14 03:27 | PC.NURSE ---
Pt ambulated to the bathroom with assistance. Unable to void at this time.
[2022-01-14 04:47] LABS: COVID-19 Test Negative (Negative)
[2022-01-14] MEDS: Heparin Sodium,Porcine 5,000 UNIT/ML VIAL 5000 UNIT SUBCUT ×2 (05:15→13:31)
[2022-01-14] MEDS: Sodium Zirconium Cyclosilicate 10 GM POWD.PACK PO (05:15)
[2022-01-14 06:07] LABS: MANUAL DIFF FLAG NO
[2022-01-14 06:09] LABS: Basophils Percent Auto 0.2 % (0-2); Eosinophils Percent Auto 0.3 % (0-4); Hematocrit 34.2 % (37.0-47.0); Hemoglobin 11.2 g/dl (12.0-16.0); Imm Gran Abs Auto 0.03 X10*3/uL (0.00-0.03); Imm Gran Pct Auto 0.3 % (0.0-0.4); Lymphocytes Absolute Auto 0.9 X10*3/uL (1.2-4.9); Lymphocytes Percent Auto 9.8 % (20-40); Mean Corpuscular HGB Conc 32.7 g/dl (31.0-35.0); Mean Corpuscular Hemoglobin 29.8 pg (27.0-33.0); Mean Platelet Volume 11.3 fL (9.4-12.3); Monocytes Absolute Auto 0.8 X10*3/uL (0.1-1.2); Monocytes Percent Auto 8.7 % (2-11); Neutrophils Absolute Auto 7.7 x10*3/uL (2.0-8.3); Neutrophils Percent Auto 80.7 % (45-73); Platelet Count 158 X10*3/uL (160-400); Red Blood Count 3.76 X10*6/uL (4.20-5.50); Red Cell Distribution Width 13.8 % (11.0-16.0); White Blood Count 9.6 X10*3/uL (4.8-10.8)
[2022-01-14 06:41] LABS: Anion Gap 25 (12-20); Blood Urea Nitrogen 86 mg/dL (9-16); Calcium 9.5 mg/dL (8.4-10.2); Carbon Dioxide 23 mmol/L (22-29); Chloride 91 mmol/L (96-108); Creatinine Clr Calc Pharmacy 5.2; Estimated Glomerular Filt Rate 4; Glucose Random 115 mg/dL (60-115); Potassium 6.1 mmol/L (3.3-5.1); Sodium 133 mmol/L (135-145)
[2022-01-14 07:15] LABS: Glucose, Whole Blood 105 mg/dL (60-115)
[2022-01-14] MEDS: Insulin Regular, Human 100 UNIT/ML 3 ML VIAL IVPUSH (07:24)
[2022-01-14] MEDS: Dextrose 50 % 25 GM/50 ML SYRINGE IVPUSH (07:27)
[2022-01-14] MEDS: 0.9 % Sodium Chloride Flush 3 ML SYRINGE IVFLUSH ×2 (07:32→21:45)
[2022-01-14 07:34] VITALS: BP 132/55; PULSE 79; RESP 16; O2SAT 98
--- NOTE | 2022-01-14 07:39 | PC.NURSE ---
pt alert and oriented, skin pwd, respirations even and unlabored. pt denies chest pain/sob but is reporting left leg pain and chronic back pain, left red all the way up to the knee, very warm to touch and tender. ns on the monitor tigered dr Vasquez that this rn is using the prn dextrose along with IV insulin to shift the potassium because the pt's poc was 105
--- NOTE | 2022-01-14 09:02 | PHA.MEDREC ---
Pharmacy Consult ? Medication Reconciliation Pharmacy has completed the medication reconciliation. Used pharmacy claims and the patient to compile list. Patient was not the best historian, could not remember last time taken. OF NOTE: patient says shes on metoprolol, however, I see no claims to support this.
--- NOTE | 2022-01-14 09:20 | PC.NURSE ---
pt of to dialysis
--- NOTE | 2022-01-14 12:08 | HO.PM.IMPN ---
Subjective Subjective Date of Service: 01/14/22 Interval History: Seen in f/u for Hyperkalemia d/t missed dialysis, left leg pain d/t erysepelas/cellulitis Interval history: pain in the left leg, dialysis is planned for hyperkalemia Review of Systems no fever, loeg pain, no confusion Physical Exam Vital Signs: Vital Signs: Last Vital Signs Temp 98.3 F 01/14/22 00:13 Pulse 79 01/14/22 07:34 Resp 16 01/14/22 07:34 BP 132/55 L 01/14/22 07:34 Pulse Ox 98 01/14/22 07:34 O2 Del Method 01/14/22 07:34 BMI result Body Mass Index 24.3 Const: Other: General: AO X 3, no acute distress Resp: CTA bilateral CVS: S1,S2,RRR GI: +BS, NT, no distention Skin: redness and tenderness of most left leg Neuro: motor grossly intact Psych: appropriate affect Objective Data Active Medications Acetaminophen (Acetaminophen 325 Mg Tablet) 650 mg PO Q6H PRN PRN Reason: Pain, Mild (Pain Scale 1-3) Albuterol/Ipratropium (Albuterol/Iprat 2.5/0.5mg 3 Ml Ampul.Neb) 3 ml INHALE Q4H PRN PRN Reason: Wheezing Dextrose (Dextrose 50 % 25 Gm/50 Ml Syringe) 25 gm IVPUSH Q15M PRN; Protocol PRN Reason: per Hypoglycemia Standing Ord. Last Admin: 01/14/22 07:27 Dose: 25 gm Documented By: DARIA Heparin Sodium (Porcine) (Heparin Sodium,Porcine 5,000 Unit/Ml Vial) 5,000 unit SUBCUT Q8H [facility] Last Admin: 01/14/22 05:15 Dose: 5,000 unit Documented By: ANGELICA Vancomycin HCl 500 mg/ Sodium (Chloride) 110 mls @ 110 mls/hr IV TUTHSA@2000 [facility] Melatonin (Melatonin 3 Mg Tablet) 6 mg PO BEDTIME PRN PRN Reason: Insomnia Ondansetron HCl (Ondansetron Hcl 4 Mg/2 Ml Vial) 4 mg IVPUSH Q8H PRN PRN Reason: Nausea and Vomiting Pharmacy Consult (Consult Rx Vancomycin Dosing) 1 each MISCELLANE DAILY PRN PRN Reason: Consult order Pharmacy Consult (Consult Rx Vancomycin Dosing) 1 each MISCELLANE DAILY PRN PRN Reason: Consult order Pharmacy Consult (Consult Rx Perform Med Rec) 1 each MISCELLANE ONCE PRN PRN Reason: Consult order Sodium Chloride (0.9 % Sodium Chloride Flush 3 Ml Syringe) 3 ml IVFLUSH QSHIFT [facility] Last Admin: 01/14/22 07:32 Dose: 3 ml Documented By: DARIA Sodium Zirconium Cyclosilicate (Sodium Zirconium Cyclosilicate 10 Gm Powd.Pack) 10 gm PO Q12H [facility] Last Admin: 01/14/22 05:15 Dose: 10 gm Documented By: ANGELICA Labs CBC & Chem 7: 01/14/22 05:26 01/14/22 05:26 Labs: Laboratory Results - last 24 hr 01/13/22 01/13/22 01/13/22 18:01 18:01 18:02 MCV 91.7 MCH 29.5 MCHC 32.2 RDW 14.2 Plt Count 178 MPV 11.0 Immature Gran % (Auto) 0.4 Neut % (Auto) 79.5 H Lymph % (Auto) 11.4 L [place] % (Auto) 6.8 Eos % (Auto) 1.7 Baso % (Auto) 0.2 Lymph # (Auto) 1.2 [place] # (Auto) 0.7 Eos # (Auto) 0.2 Baso # (Auto) 0.0 Abs Immat Gran (auto) 0.04 H Absolute Neuts (auto) 8.3 Absolute Nucleated RBC 0.000 Nucleated RBC % (auto) 0.0 PT INR Anion Gap 25 H Estim Creat Clear Calc 5.4 Estimated GFR 4 POC Glucose Random Glucose 121 H Lactic Acid 0.9 Calcium 9.3 D Total Bilirubin 0.6 AST 18 ALT 14 Alkaline Phosphatase 92 B-Natriuretic Peptide Total Protein 6.7 Albumin 3.8 COVID-19 ([facility]) COVID-19 Clin Com 01/13/22 01/13/22 01/13/22 18:02 23:57 23:57 MCV MCH MCHC RDW Plt Count MPV Immature Gran % (Auto) Neut % (Auto) Lymph % (Auto) [place] % (Auto) Eos % (Auto) Baso % (Auto) Lymph # (Auto) [place] # (Auto) Eos # (Auto) Baso # (Auto) Abs Immat Gran (auto) Absolute Neuts (auto) Absolute Nucleated RBC Nucleated RBC % (auto) PT 13.2 H INR 1.1 Anion Gap 25 H Estim Creat Clear Calc 5.3 Estimated GFR 4 POC Glucose Random Glucose 241 H Lactic Acid Calcium 9.0 Total Bilirubin AST ALT Alkaline Phosphatase B-Natriuretic Peptide 808 H Total Protein Albumin COVID-19 ([facility]) COVID-19 Clin Com 01/14/22 01/14/22 01/14/22 04:22 05:26 05:26 MCV 91.0 MCH 29.8 MCHC 32.7 RDW 13.8 Plt Count 158 L MPV 11.3 Immature Gran % (Auto) 0.3 Neut % (Auto) 80.7 H Lymph % (Auto) 9.8 L [place] % (Auto) 8.7 Eos % (Auto) 0.3 Baso % (Auto) 0.2 Lymph # (Auto) 0.9 L [place] # (Auto) 0.8 Eos # (Auto) 0.0 Baso # (Auto) 0.0 Abs Immat Gran (auto) 0.03 Absolute Neuts (auto) 7.7 Absolute Nucleated RBC 0.000 Nucleated RBC % (auto) 0.0 PT INR Anion Gap 25 H Estim Creat Clear Calc 5.2 Estimated GFR 4 POC Glucose Random Glucose 115 Lactic Acid Calcium 9.5 Total Bilirubin AST ALT Alkaline Phosphatase B-Natriuretic Peptide Total Protein Albumin COVID-19 ([facility]) Negative COVID-19 Clin Com See Note 01/14/22 07:10 MCV MCH MCHC RDW Plt Count MPV Immature Gran % (Auto) Neut % (Auto) Lymph % (Auto) [place] % (Auto) Eos % (Auto) Baso % (Auto) Lymph # (Auto) [place] # (Auto) Eos # (Auto) Baso # (Auto) Abs Immat Gran (auto) Absolute Neuts (auto) Absolute Nucleated RBC Nucleated RBC % (auto) PT INR Anion Gap Estim Creat Clear Calc Estimated GFR POC Glucose 105 Random Glucose Lactic Acid Calcium Total Bilirubin AST ALT Alkaline Phosphatase B-Natriuretic Peptide Total Protein Albumin COVID-19 ([facility]) COVID-19 Clin Com Assessment and Plan (1) Acute hyperkalemia: Status: Acute (2) Erysipelas: Status: Acute (3) Rash: Status: Acute Plan This is a 71-year-old female with a pertinent history of ESRD on hemodialysis, alcoholic cirrhosis status post liver transplant, hypothyroidism, essential hypertension, mood disorder, gout, obstructive lung disease not on home oxygen who presents to the emergency department for evaluation of left lower extremity pain. #.? Hyperkalemia with EKG changes -due to missed hemodialysis session. Does have peaked T waves on admission.? On tele. Got Lokelma 10 b.i.d and add calcium gluconate.? -Urgent dialysis is planned today, usually TTS dialysis. #.? Left lower extremity erysipelas/Cellulitis -On Vanco D2, cultures pending. -No DVT #.? End-stage renal disease -Friday//Friday.? Nephrology on board as above #.? Essential hypertension -continue home p.o. medications #.? Mixed hyperlipidemia -on statin #.? Mood disorder -continue p.o. medications.? Mood stable DVT prophylaxis:? Heparin Diet:? Low-potassium low-sodium diet Full code Quality Stroke Does the patient have a stroke diagnosis?: No VTE Prior VTE?: No VTE Risk Level:: Medical - moderate - high VTE Device Contraindication: Treatment Not Indicated VTE Drug Contraindication: N/A - Med Ordered
[2022-01-14] MEDS: Aspirin Enteric Coated 81 MG TABLET.DR PO (13:29)
[2022-01-14] MEDS: Metoprolol Tartrate 25 MG TABLET PO ×2 (13:30→21:45)
[2022-01-14] MEDS: Cholecalciferol (Vitamin D3) 25 MCG TABLET 50 MCG PO (13:30)
[2022-01-14] MEDS: oxyCODONE HCl Immed Release 5 MG TABLET PO ×2 (13:30→21:44)
[2022-01-14 13:37] VITALS: BP 141/71; PULSE 68; RESP 16; O2SAT 99
[2022-01-14] MEDS: Tacrolimus 1 MG CAPSULE PO ×2 (14:00→21:44)
[2022-01-14] MEDS: Venlafaxine HCL 25 MG TABLET PO (14:00)
--- NOTE | 2022-01-14 14:08 | MHC.CM.PN ---
Addendum entered by Jenelle Dumont 01/14/22 15:32: PT IS NOT ACTIVE WITH [facility]. MORE REFERRALS SENT OUT. SPOKE WITH SISTER/HCP GABRIEL WHO DOES NOT KNOW IF SHE IS ACTIVE WITH A VNA. GABRIEL IS ALSO WILLING TO TRANSPORT PT HOME IF NEEDED. Original Note: IMM DELIVERED CM MET WITH PT WHO LIVES ALONE IN AN APARTMENT. PT STATES SHE IS INDEPENDENT AND STILL DRIVES. SOMEWHAT LETHARGIC AT X'S DURING MEETING, JUST RETURNED FROM HD. USES WALKER/CANE, ATTENDS DIALYSIS T-TH-SAT AT [facility] ON [address]. STATES SHE IS ACTIVE WITH A VNA, BELIEVES IT IS [facility]. RETURN REFERRAL SENT. + HCP ON FILE, ROSE ANDREW X 4/ PCP DR. MAYLIN HDZ AT [facility]. DP: PT STATES SHE DRIVES HERSELF, UNSURE OF PLAN FOR TRANSPORT ON DC. WILL CONTINUE TO FOLLOW.
[2022-01-14 14:59] LABS: Vancomycin Trough 13.7 mcg/mL (10.0-20.0)
--- NOTE | 2022-01-14 15:06 | HE.PHANOTE ---
RE NALLELY [facility] TROUGH WAS 13.7. PT TO GET DIALYSIS TOMORROW AND THEN RESUME SCHEDULE OF TUTHSA. WILL PUT IN A 1X 500MG DOSE AND ANOTHER POST DIALYSIS TROUGH FOR TOMORROW SPRING
[2022-01-14 17:25] VITALS: BP 117/64; PULSE 68; RESP 18; TEMP 36.7; O2SAT 97
[2022-01-14] MEDS: vancomycin HCL 500 MG in 0.9 % Sodium Chloride 100 ML 110 MG IV (17:36)
[2022-01-14] MEDS: Sevelamer Carbonate Tablet 800 MG TABLET PO (17:38)
[2022-01-14 19:08] VITALS: BP 131/73; PULSE 81; RESP 18; TEMP 36.6; O2SAT 98
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
[2022-01-14] MEDS: rOPINIRole HCL 0.5 MG TABLET PO (21:45)
[2022-01-15] VITALS (7 sets, daily range): BP systolic 86–137; BP diastolic 42–63; PULSE 55–63; RESP 18–20; TEMP 36.2–36.4; O2SAT 94–99
[2022-01-15] MEDS: Heparin Sodium,Porcine 5,000 UNIT/ML VIAL 5000 UNIT SUBCUT ×2 (05:49→13:40)
[2022-01-15] MEDS: Levothyroxine Sodium 100 MCG TABLET PO (05:49)
[2022-01-15] MEDS: oxyCODONE HCl Immed Release 5 MG TABLET PO (05:49)
[2022-01-15] MEDS: Sodium Zirconium Cyclosilicate 10 GM POWD.PACK PO ×2 (05:49→17:07)
[2022-01-15 06:20] LABS: Basophils Percent Auto 0.4 % (0-2); Eosinophils Absolute Auto 0.3 X10*3/uL (0.0-0.4); Eosinophils Percent Auto 4.3 % (0-4); Hematocrit 36.1 % (37.0-47.0); Hemoglobin 11.9 g/dl (12.0-16.0); Imm Gran Abs Auto 0.06 X10*3/uL (0.00-0.03); Imm Gran Pct Auto 0.8 % (0.0-0.4); Lymphocytes Absolute Auto 1.6 X10*3/uL (1.2-4.9); Lymphocytes Percent Auto 21.2 % (20-40); MANUAL DIFF FLAG SCAN; Mean Corpuscular Hemoglobin 29.9 pg (27.0-33.0); Mean Corpuscular Volume 90.7 fL (80.0-98.0); Monocytes Percent Auto 13.8 % (2-11); Neutrophils Absolute Auto 4.4 x10*3/uL (2.0-8.3); Neutrophils Percent Auto 59.5 % (45-73); PLT CLUMP 1; Red Blood Count 3.98 X10*6/uL (4.20-5.50); Red Cell Distribution Width 14.1 % (11.0-16.0); SCAN SMEAR FLAG 1
[2022-01-15 06:47] LABS: Anion Gap 22 (12-20); Blood Urea Nitrogen 35 mg/dL (9-16); Calcium 8.7 mg/dL (8.4-10.2); Carbon Dioxide 18 mmol/L (22-29); Chloride 99 mmol/L (96-108); Creatinine Clr Calc Pharmacy 8.1; Estimated Glomerular Filt Rate 6; Glucose Random 80 mg/dL (60-115); Iron 43 mcg/dL (30-160); Percent Iron Saturation 23 % (15-50); Phosphorus 2.9 mg/dL (2.7-4.5); Potassium 5.2 mmol/L (3.3-5.1); Sodium 134 mmol/L (135-145); Total Iron Binding Capacity 185 mcg/dL (228-428); Unsaturated Iron Binding 142 ug/dL
[2022-01-15 07:02] LABS: Platelet Count 173 X10*3/uL (160-400); SLIDE REVIEW VERIFIED; White Blood Count 7.5 X10*3/uL (4.8-10.8)
[2022-01-15] MEDS: Metoprolol Tartrate 25 MG TABLET PO (08:13)
[2022-01-15] MEDS: Folic Acid 1 MG TABLET PO (08:13)
[2022-01-15] MEDS: Famotidine 20 MG TABLET PO (08:13)
[2022-01-15] MEDS: Sevelamer Carbonate Tablet 800 MG TABLET PO ×3 (08:13→17:07)
[2022-01-15] MEDS: Tacrolimus 1 MG CAPSULE PO (08:13)
[2022-01-15] MEDS: Venlafaxine HCL 25 MG TABLET PO (08:14)
[2022-01-15] MEDS: 0.9 % Sodium Chloride Flush 3 ML SYRINGE IVFLUSH ×2 (08:14→13:40)
[2022-01-15] MEDS: Aspirin Enteric Coated 81 MG TABLET.DR PO (08:14)
[2022-01-15] MEDS: Cholecalciferol (Vitamin D3) 25 MCG TABLET 50 MCG PO (08:14)
[2022-01-15] MEDS: Midodrine HCl 5 MG TABLET PO (08:20)
--- NOTE | 2022-01-15 09:45 | PC.NURSE ---
Patient brought to dialysis at this time via bed. Patient agreeable for procedure.
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
[2022-01-15] MEDS: allopurinoL 100 MG TABLET PO (17:07)
--- NOTE | 2022-01-15 19:09 | PM.PNNEP ---
Subjective Subjective Date of Service: 01/15/22 Interval history: Hyperkalemia, left lower extremity cellulitis Physical Exam Vital Signs: Vital Signs: Last Vital Signs Temp 97.4 F 01/15/22 15:00 Pulse 62 01/15/22 16:50 Resp 18 01/15/22 15:00 BP 110/58 L 01/15/22 16:50 Pulse Ox 94 01/15/22 15:00 O2 Del Method 01/15/22 15:00 BMI result Body Mass Index 24.3 Const: General: cooperative, comfortable and no acute distress HEENT: Head: Yes normocephalic and Yes atraumatic Neck: Neck: Yes no JVD Resp: Auscultation: clear to auscultation bilaterally Cardio: Jugular venous distension: no JVD Rate: regular rate Rhythm: regular rhythm Heart sounds: S1 normal heart sound present and S2 normal heart sound present GI: Auscultation: normal bowel sounds Neuro: General: tone normal and moves all extremities Extrem: General: Yes no clubbing, cyanosis or edema Objective Data Labs CBC & Chem 7: 01/15/22 05:47 01/15/22 05:47 Labs: Laboratory Results - last 24 hr 01/15/22 01/15/22 01/15/22 05:47 05:47 15:18 WBC 7.5 RBC 3.98 L Hgb 11.9 L Hct 36.1 L MCV 90.7 MCH 29.9 MCHC 33.0 RDW 14.1 Plt Count 173 MPV Not Reportable Immature Gran % (Auto) 0.8 H Neut % (Auto) 59.5 Lymph % (Auto) 21.2 [place] % (Auto) 13.8 H Eos % (Auto) 4.3 H Baso % (Auto) 0.4 Lymph # (Auto) 1.6 [place] # (Auto) 1.0 Eos # (Auto) 0.3 Baso # (Auto) 0.0 Abs Immat Gran (auto) 0.06 H Absolute Neuts (auto) 4.4 Absolute Nucleated RBC 0.000 Nucleated RBC % (auto) 0.0 Smear Tech's Comments VERIFIED Sodium 134 L Potassium 5.2 H Chloride 99 Carbon Dioxide 18 L Anion Gap 22 H BUN 35 H D Creatinine 6.48 H* Estim Creat Clear Calc 8.1 Estimated GFR 6 Random Glucose 80 Calcium 8.7 D Phosphorus 2.9 Iron 43 TIBC 185 L % Saturation 23 Unsat Iron Binding 142 Vancomycin Trough 15.0 Procedures Date of Service Date of Service: 01/15/22 Assessment & Plan Assessment and plan (1) End-stage renal disease (ESRD): Status: Acute Assessment and Plan: #ESRD on HD. HD per TTS schedule. Receiving 1Gm IV vancomycin post HD. WIll need to be communicated to outpatient HD unit. (7-10 days per ID note) [facility] [place] noted hyperkalemia. Will monitor for recirc study needs. Protect access arm K bath per protocol. NORMA per protocol. check phosphorus for am. rest per primary team. Time Spent With Patient Time: Total time spent is greater than 50% in coordination of care (as documented) at patient's floor/unit and/or counseling patient: Progress Note: Quality Stroke Does the patient have a stroke diagnosis?: No
--- NOTE | 2022-01-16 07:37 | HE.PHANOTE ---
RE NALLELY NO DOSE GIVEN TODAY; POST DISLYSIS TROUGH WAS 15. GET A TROUGH TOMORROW AFTER DIALYSIS. SPOKE TO SEPIDEH MORILLO TO CONFIRM SCHEDULE SPRING
[2022-01-16 07:38] VITALS: BP 113/62; PULSE 67; RESP 17; TEMP 36.4; O2SAT 94
--- NOTE | 2022-01-16 08:06 | P.CDIC_ITS ---
CDI Concurrent Query Documentation Clarification: PHYSICIAN'S DOCUMENTATION REQUEST Date of Query: 01/16/22 0807 Patient Name: Guadalupe Kay Admit Date: 01/13/22 Dear Doctor, Please review the following and provide your response in the progress notes. Clinical Indicators: Risk Factors/Clinical Indicators/Treatments H&P: PMH- Asthma Albuterol prn ordered (01/13) for sob and wheezing. Based on the above, please clarify in the Progress Notes further specificity regarding the type and acuity of the asthma: Type: * Mild intermittent - less than 2x/week * Mild persistent - more than 2x/week but not daily * Moderate persistent - daily and may restrict physical activity * Severe persistent - throughout the day with frequent attacks, limiting activities * Exercise induced * Chronic obstructive asthma * Other if known * Unable to determine Use of terms such as suspected, likely, concern for, or probable (associated with a specific diagnosis that is being evaluated, monitored, or treated as if it exists) are acceptable and can be coded in the inpatient setting, when documented at the time of discharge. Thank you, Cande Covarrubias [facility], CDIS Extension: [phone] Please use your independent medical judgment in providing your response. THIS QUERY IS PART OF THE PERMANENT MEDICAL RECORD Provider Response: Other Other Diagnosis: asthma mild intermittent
--- NOTE | 2022-01-16 08:06 | MHC.CDI.CONC ---
CDI Concurrent Query Documentation Clarification: PHYSICIAN'S DOCUMENTATION REQUEST Date of Query: 01/16/22 0807 Patient Name: Guadalupe Kay Admit Date: 01/13/22 Dear Doctor, Please review the following and provide your response in the progress notes. Clinical Indicators: Risk Factors/Clinical Indicators/Treatments H&P: PMH- Asthma Albuterol prn ordered (01/13) for sob and wheezing. Based on the above, please clarify in the Progress Notes further specificity regarding the type and acuity of the asthma: Type: Mild intermittent - less than 2x/week Mild persistent - more than 2x/week but not daily Moderate persistent - daily and may restrict physical activity Severe persistent - throughout the day with frequent attacks, limiting activities Exercise induced Chronic obstructive asthma Other if known Unable to determine Use of terms such as suspected, likely, concern for, or probable (associated with a specific diagnosis that is being evaluated, monitored, or treated as if it exists) are acceptable and can be coded in the inpatient setting, when documented at the time of discharge. Thank you, Cande Covarrubias [facility], CDIS Extension: [phone] Please use your independent medical judgment in providing your response. THIS QUERY IS PART OF THE PERMANENT MEDICAL RECORD Provider Response: Other Other Diagnosis: asthma mild intermittent
[2022-01-16 08:20] LABS: Anion Gap 21 (12-20); Blood Urea Nitrogen 25 mg/dL (9-16); Calcium 8.8 mg/dL (8.4-10.2); Carbon Dioxide 20 mmol/L (22-29); Chloride 99 mmol/L (96-108); Creatinine Clr Calc Pharmacy 9.6; Estimated Glomerular Filt Rate 8; Glucose Random 89 mg/dL (60-115); Phosphorus 2.4 mg/dL (2.7-4.5); Potassium 5.3 mmol/L (3.3-5.1); Sodium 135 mmol/L (135-145)
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
[2022-01-16] MEDS: 0.9 % Sodium Chloride Flush 3 ML SYRINGE IVFLUSH ×3 (10:35→21:07)
[2022-01-16] MEDS: Tacrolimus 1 MG CAPSULE PO ×2 (10:36→21:04)
[2022-01-16] MEDS: Sevelamer Carbonate Tablet 800 MG TABLET PO (10:36)
[2022-01-16] MEDS: Cholecalciferol (Vitamin D3) 25 MCG TABLET 50 MCG PO (10:36)
[2022-01-16] MEDS: Venlafaxine HCL 25 MG TABLET PO (10:37)
[2022-01-16] MEDS: Folic Acid 1 MG TABLET PO (10:37)
[2022-01-16] MEDS: Aspirin Enteric Coated 81 MG TABLET.DR PO (10:37)
[2022-01-16 12:00] VITALS: BP 108/57; PULSE 60; RESP 17; TEMP 36.4; O2SAT 95
--- NOTE | 2022-01-16 13:20 | HO.PM.IMPN ---
Subjective Subjective Date of Service: 01/17/22 Interval History: Hyperkalemia, left lower extremity cellulitis Review of Systems Denies any shortness of breath or abdominal pain or fever chills Leg is still swollen and very erythema Physical Exam Vital Signs: Vital Signs: Last Vital Signs Temp 97.6 F 01/16/22 12:00 Pulse 60 01/16/22 12:00 Resp 17 01/16/22 12:00 BP 108/57 L 01/16/22 12:00 Pulse Ox 95 01/16/22 12:00 O2 Del Method 01/16/22 12:00 BMI result Body Mass Index 24.3 ? aox3 ,not in distress Regular rate and rhythm, S1-S2 heard Decreased breath sound at bases, no wheezing or rales Abdomen soft nontender, no guarding, no rigidity ? small puch out wounds on abd ?she does not want me to examine -staff examined -seems clean , no dischrage. Skin:? Erythema present left lower extremity extending from knee to ankle with clear demarcation, associated warmth and tenderness present Psych: upset. Objective Data Active Medications Acetaminophen (Acetaminophen 325 Mg Tablet) 650 mg PO Q6H PRN PRN Reason: Pain, Mild (Pain Scale 1-3) Albuterol Sulfate (Albuterol Sulfate 90 Mcg 8 Gm Inhaler) 2 puff INHALE Q4H PRN PRN Reason: Shortness Of Breath Or Wheezing Albuterol/Ipratropium (Albuterol/Iprat 2.5/0.5mg 3 Ml Ampul.Neb) 3 ml INHALE Q4H PRN PRN Reason: Wheezing Allopurinol (Allopurinol 100 Mg Tablet) 100 mg PO TuThSa@1800 [facility] Last Admin: 01/15/22 17:07 Dose: 100 mg Documented By: KADI Aspirin (Aspirin Enteric Coated 81 Mg Tablet.) 81 mg PO DAILY [facility] Last Admin: 01/16/22 10:37 Dose: 81 mg Documented By: ARJUN Atorvastatin Calcium (Atorvastatin Calcium 20 Mg Tablet) 20 mg PO BEDTIME [facility] Last Admin: 01/15/22 20:48 Dose: Not Given Documented By: ABDELRAHMAN Non-Admin Reason: Patient Refused Calcium Carbonate (Calcium Carbonate 500 Mg Tablet) 500 mg PO DAILY [facility] Last Admin: 01/16/22 10:37 Dose: 500 mg Documented By: ARJUN Clonazepam (Clonazepam 1 Mg Tablet) 1 mg PO DAILY PRN PRN Reason: panic attack Dextrose (Dextrose 50 % 25 Gm/50 Ml Syringe) 25 gm IVPUSH Q15M PRN; Protocol PRN Reason: per Hypoglycemia Standing Ord. Last Admin: 01/14/22 07:27 Dose: 25 gm Documented By: DARIA Famotidine (Famotidine 20 Mg Tablet) 20 mg PO Q48H [facility] Last Admin: 01/15/22 08:13 Dose: 20 mg Documented By: KADI Folic Acid (Folic Acid 1 Mg Tablet) 1 mg PO DAILY [facility] Last Admin: 01/16/22 10:37 Dose: 1 mg Documented By: ARJUN Heparin Sodium (Porcine) (Heparin Sodium,Porcine 5,000 Unit/Ml Vial) 5,000 unit SUBCUT Q8H [facility] Last Admin: 01/16/22 05:20 Dose: Not Given Documented By: ABDELRAHMAN Non-Admin Reason: Patient Refused Hydrocortisone (Hydrocortisone 2.5 % Rectal Cr 30 Gm Tube) 1 appl TOPICAL BID PRN PRN Reason: skin irritation Hydroxyzine HCl (Hydroxyzine Hcl 25 Mg Tablet) 25 mg PO TID PRN PRN Reason: Itching Vancomycin HCl 1,000 mg/ (Sodium Chloride) 120 mls @ 110 mls/hr IV TUTHSA@2000 [facility] Levothyroxine Sodium (Levothyroxine Sodium 100 Mcg Tablet) 100 mcg PO DAILY@0600 [facility] Last Admin: 01/16/22 05:20 Dose: Not Given Documented By: ABDELRAHMAN Non-Admin Reason: Patient Refused Melatonin (Melatonin 3 Mg Tablet) 6 mg PO BEDTIME PRN PRN Reason: Insomnia Metoprolol Tartrate (Metoprolol Tartrate 25 Mg Tablet) 25 mg PO BID [facility]; Protocol Last Admin: 01/15/22 08:13 Dose: 25 mg Documented By: KADI Midodrine (Midodrine Hcl 5 Mg Tablet) 5 mg PO TuThSa [facility] Last Admin: 01/15/22 08:20 Dose: 5 mg Documented By: KADI Ondansetron HCl (Ondansetron Hcl 4 Mg/2 Ml Vial) 4 mg IVPUSH Q8H PRN PRN Reason: Nausea and Vomiting Oxycodone HCl (Oxycodone Hcl Immed Release 5 Mg Tablet) 5 mg PO Q6H PRN PRN Reason: Pain, Severe (Pain Scale 7-10) Last Admin: 01/15/22 05:49 Dose: 5 mg Documented By: ULYSSES Pharmacy Consult (Consult Rx Vancomycin Dosing) 1 each MISCELLANE DAILY PRN PRN Reason: Consult order Pharmacy Consult (Consult Rx Vancomycin Dosing) 1 each MISCELLANE DAILY PRN PRN Reason: Consult order Pharmacy Consult (Consult Rx Perform Med Rec) 1 each MISCELLANE ONCE PRN PRN Reason: Consult order Ropinirole HCl (Ropinirole Hcl 0.5 Mg Tablet) 0.5 mg PO BEDTIME [facility] Last Admin: 01/15/22 20:48 Dose: Not Given Documented By: ABDELRAHMAN Non-Admin Reason: Patient Refused Sevelamer Carbonate (Sevelamer Carbonate Tablet 800 Mg Tablet) 800 mg PO TIDWM [facility] Last Admin: 01/16/22 10:36 Dose: 800 mg Documented By: ARJUN Sodium Chloride (0.9 % Sodium Chloride Flush 3 Ml Syringe) 3 ml IVFLUSH QSHIFT [facility] Last Admin: 01/16/22 10:35 Dose: 3 ml Documented By: ARJUN Sodium Zirconium Cyclosilicate (Sodium Zirconium Cyclosilicate 10 Gm Powd.Pack) 10 gm PO Q12H [facility] Last Admin: 01/16/22 05:20 Dose: Not Given Documented By: ABDELRAHMAN Non-Admin Reason: Patient Refused Tacrolimus (Tacrolimus 1 Mg Capsule) 1 mg PO BID [facility] Last Admin: 01/16/22 10:36 Dose: 1 mg Documented By: ARJUN Venlafaxine HCl (Venlafaxine Hcl 25 Mg Tablet) 25 mg PO DAILY [facility] Last Admin: 01/16/22 10:37 Dose: 25 mg Documented By: ARJUN Vitamin D (Cholecalciferol (Vitamin D3) 25 Mcg Tablet) 50 mcg PO DAILY [facility] Last Admin: 01/16/22 10:36 Dose: 50 mcg Documented By: ARJUN Labs CBC & Chem 7: 01/15/22 05:47 01/16/22 07:24 Labs: Laboratory Results - last 24 hr 01/15/22 01/16/22 01/16/22 15:18 07:24 07:24 Anion Gap 21 H Estim Creat Clear Calc 9.6 Estimated GFR 8 Random Glucose 89 Calcium 8.8 Phosphorus 2.4 L Vancomycin Trough 15.0 Assessment and Plan (1) Acute hyperkalemia: Status: Acute (2) Erysipelas: Status: Acute Plan 71-year-old female with a pertinent history of ESRD on hemodialysis, alcoholic cirrhosis status post liver transplant, hypothyroidism, essential hypertension, mood disorder, gout, obstructive lung disease not on home oxygen who presents to the emergency department for evaluation of left lower extremity pain. #.? Hyperkalemia improving but still elevated continue HD. #.? Left lower extremity erysipelas/Cellulitis -On Vanco D2, cultures pending. -No DVT Id eval #.? End-stage renal disease -Friday//Friday.? Nephrology on board as above #.? Essential hypertension: flactuating hold metoprolol -continue midodrine. #.? Mixed hyperlipidemia -on statin #.? Mood disorder -continue p.o. medications.? Mood stable small punch out wounds on abd-d/w surgery-does not seems infection,possible related to surgical scar . patient willfollow up outpatient pcp,also she said they rearrange their outpatient dermatolgy appointment mild intermittent asthma: No shortness of breath, stable continue home medication. DVT prophylaxis:? Heparin Diet:? Low-potassium low-sodium diet. inpatient need : hyperkalemia requiring hemodialysis, left lower extremity cellulitis need IV antibiotic. Quality Stroke Does the patient have a stroke diagnosis?: No VTE Prior VTE?: No VTE Risk Level:: Medical - moderate - high VTE Device Contraindication: Treatment Not Indicated VTE Drug Contraindication: N/A - Med Ordered
--- NOTE | 2022-01-16 13:34 | P.PNNP_ITS ---
Subjective Subjective Date of Service: 01/16/22 Interval history: Hyperkalemia, left lower extremity cellulitis Chart Reviewed. Events noted. Physical Exam Vital Signs: Vital Signs: Last Vital Signs Temp 97.6 F 01/16/22 12:00 Pulse 60 01/16/22 12:00 Resp 17 01/16/22 12:00 BP 108/57 L 01/16/22 12:00 Pulse Ox 95 01/16/22 12:00 O2 Del Method 01/16/22 12:00 BMI result Body Mass Index 24.3 Const: General: cooperative and no acute distress Orientation/consciousness: patient oriented x3 HEENT: Head: Yes normocephalic and Yes atraumatic Resp: Auscultation: clear to auscultation bilaterally Cardio: Jugular venous distension: no JVD Rate: regular rate Rhythm: regular rhythm Heart sounds: S1 normal heart sound present and S2 normal heart sound present GI: Auscultation: normal bowel sounds Neuro: General: patient oriented x3 Extrem: General: Yes no clubbing, cyanosis or edema Objective Data Labs CBC & Chem 7: 01/15/22 05:47 01/16/22 07:24 Labs: Laboratory Results - last 24 hr 01/15/22 01/16/22 01/16/22 15:18 07:24 07:24 Sodium 135 Potassium 5.3 H Chloride 99 Carbon Dioxide 20 L Anion Gap 21 H BUN 25 H Creatinine 5.47 H* Estim Creat Clear Calc 9.6 Estimated GFR 8 Random Glucose 89 Calcium 8.8 Phosphorus 2.4 L Vancomycin Trough 15.0 Procedures Date of Service Date of Service: 01/16/22 Assessment & Plan Assessment and plan (1) End-stage renal disease (ESRD): Status: Acute Assessment and Plan: #ESRD on HD. HD per TTS schedule. Receiving 1Gm IV vancomycin post HD. WIll need to be communicated to outpatient HD unit. (7-10 days per ID note) [facility] [place] noted hyperkalemia. Suggest scheduling 10 Gm lokelma on Non-HD days. She should have URR calculated at time of next HD Protect access arm K bath per protocol. NORMA per protocol. Hold sevelamer for now. Phos on lower side. tacrolimus level pending. will follow up. (2) Acute hyperkalemia: Status: Acute Time Spent With Patient Time: Total time spent is greater than 50% in coordination of care (as documented) at patient's floor/unit and/or counseling patient: Progress Note: Quality Stroke Does the patient have a stroke diagnosis?: No
--- NOTE | 2022-01-16 14:46 | MHC.CM.PN ---
Addendum entered by Jeana Horne 01/16/22 15:45: PER MD, Discharge is on hold. LE cellulitis not improved. Original Note: IMM 01/16/22 Patient was evaluated by P.T.. The recommendation is home self care. 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 She has arranged for transport home.
[2022-01-16 16:00] VITALS: BP 120/59; PULSE 53; RESP 18; TEMP 36.6; O2SAT 97
[2022-01-16] MEDS: Sodium Zirconium Cyclosilicate 10 GM POWD.PACK PO (18:10)
[2022-01-16 19:14] VITALS: BP 118/56; PULSE 61; RESP 19; TEMP 36.5; O2SAT 99
[2022-01-16] MEDS: rOPINIRole HCL 0.5 MG TABLET PO (21:04)
[2022-01-16] MEDS: Atorvastatin Calcium 20 MG TABLET PO (21:04)
[2022-01-16 23:16] VITALS: BP 141/71; PULSE 80; RESP 18; TEMP 36.3; O2SAT 94
[2022-01-17 08:00] VITALS: BP 131/65; PULSE 75; RESP 16; TEMP 36.8; O2SAT 94
--- NOTE | 2022-01-17 08:46 | HE.PHANOTE ---
Matilde Espinosa Called Dialysis. Pt getting dialysis soon. Will put in post dialysis level for 1600 and reevaluate at that time Alon
--- NOTE | 2022-01-17 12:02 | P.DS_ITS ---
DS: Providers Provider Date of Service: 01/17/22 Date of admission: 01/13/22 21:11 Primary care physician: Vanessa Hu MD Consults: 01/13/22 23:15 Consult to Nephrology Stat Consulting Provider: Piedad Draper Reason for consultation: hyper k 01/15/22 09:39 Consult to Infectious Diseases Routine Consulting Provider: Katya Hanson Reason for consultation: Left lower extremity erysipelas/esrd-antibiotics manageent Has provider been notified: No 01/15/22 16:59 Consult to General Surgery Routine Consulting Provider: [facility] Surgeons Reason for consultation: b/l punch out wounds of abd Has provider been notified: No DS: Diagnosis Discharge Diagnosis (1) Acute hyperkalemia: Status: Acute (2) Erysipelas: Status: Acute DS: Summary Hospital Course Hospital Course: 71-year-old female with a pertinent history of ESRD on hemodialysis, alcoholic cirrhosis status post liver transplant, hypothyroidism, essential hypertension, mood disorder, gout, obstructive lung disease not on home oxygen who presents to the emergency department for evaluation of left lower extremity pain.? Patient states it started about 3 days prior to presentation.? It is associated with redness from left knee to left ankle.? The pain is constant, progressive, nonradiating and without any relieving and aggravating factors.? Patient has difficulty ambulating due to the pain and missed her hemodialysis session on 01/12/2022.? Denies any trauma.? Does endorse chills but denies fever, chills, chest discomfort, palpitations, shortness of breath, changes in bowel habits.? States a similar episode of lower extremity pain and redness happened about 12 years ago when she was bit by a cat. In the emergency department, patient was found to be hyperkalemic at 6.1.? Nephrology was consulted for severe hyperkalemia. Hospital course:Patient was admitted due to acute hyperkalemia and missing dialysis : Patient was started on hemodialysis and potassium is improving still borderline 5.2-5.3 range: Discussed with the nephrology will start Lokelma on non hemodialysis day and advised to continue low-potassium diet. Nephrology will repeat labs including BMP outpatient. LegErysipelas: Discussed with the nephrology patient will need-Would give 1 g IV with dialysis for ten days, Nephro will arrange it out patiently-[facility]. d/w nephro in detail. Abdominal punch out ( small areas): Patient says she was supposed to follow-up with tobacco sampler out patiently, seen by surgery here was thought to be related to her sports cars and further management outpatient as per Dermatology and PCP. plan: Continue to monitor-if any new symptoms including fever or worsening of leg pain or rash please go to nearest emergency room for further evaluation. Please complete the course of IV antibiotics as per Nephrology outpatient Follow-up with Dermatology for above. Above management discussed with the patient and her in detail length-both understand and in agreement with the above plan. Further management outpatient as per PCP. Time Spent with Patient Time attestation: Total time spent providing and/or coordinating discharge services: Discharge coordination time: Greater than 30 minutes Quality: Safe Use of Opioids Does Pt have an Active Cancer Diagnosis on the Problem List?: No Quality: Stroke Does the patient have a stroke diagnosis?: No Physical Exam Vital Signs: Vital Signs: Last Vital Signs Temp 98.3 F 01/17/22 08:00 Pulse 75 01/17/22 08:00 Resp 16 01/17/22 08:00 BP 131/65 01/17/22 08:00 Pulse Ox 94 01/17/22 08:00 O2 Del Method 01/17/22 08:00 BMI result Body Mass Index 24.3 aox3 ,not in distress Regular rate and rhythm, S1-S2 heard Decreased breath sound at bases, no wheezing or rales Abdomen soft nontender, no guarding, no rigidity ? small puch out wounds on abd ?she does not want me to examine -seems clean , no dischrage. Skin:? Erythema present left lower extremity -seems improving Psych: calm and cooperative DS: Data Data Completed and Pending Completed studies during hospitalization [Text1]: Procedures Performance of Urinary Filtration, Intermittent, Less than 6 Hours Per Day (02/01/21) Supplement Left Inguinal Region with Synthetic Substitute, Open Approach (08/14/20) Pending studies at discharge: ? 01/15/22 01/16/22 01/16/22 ? 15:18 07:24 07:24 Anion Gap ? ? ?21 H Estim Creat Clear Calc ? ? ?9.6 Estimated GFR ? ? ?8 Random Glucose ? ? ?89 Calcium ? ? ?8.8 Phosphorus ? ?2.4 L ? Vancomycin Trough ?15.0 ? ? Imaging Chest x-ray: Radiologist's impression: ITS Impressions Venous Duplex 01/13/22 19:29 IMPRESSION: No DVT demonstrated in the left lower extremity. Chest X-Ray 01/13/22 21:32 IMPRESSION: No acute intrathoracic disease. Airspace disease seen previously has cleared. Discharge Plan Discharge Anticipated Discharge Date/Time: 01/17/22 11:47 Patient Disposition: Home Health Service Discharge Diagnosis: Hyperkalemia, end-stage renal disease, leg cellulitis/erysipelas Referrals: [facility] [Outside] - 1 Week Physician,Nonstaff [Physician] - 1 Week Discharge Medications: New Lokelma 10 gram powder in packet 10 g PO .3xweek Qty: 11 0RF Rx Instructions: use loklema 3 times a week on non HD day. Continued albuterol sulfate [Ventolin HFA] 90 mcg/actuation Hfa Aerosol Inhaler 2 puff INHALATION Q4-6H PRN (Reason: Shortness Of Breath Or Wheezing) venlafaxine 25 mg tablet 1 tab PO DAILY ropinirole 0.5 mg tablet 1 tab PO BEDTIME hydroxyzine HCl 25 mg tablet 1 tab PO TID PRN (Reason: Itching) calcium citrate 200 mg (950 mg) Tablet 400 mg PO USEASDIRECTD Label Comments: PREVIOUSLY WAS DAILY BUT REPORTS ONLY DIALYSIS DAYS NOW Rx Instructions: DIALYSIS DAYS cholecalciferol (vitamin D3) 50 mcg (2,000 unit) tablet 1 tab PO DAILY ondansetron HCl [Zofran] 4 mg Tablet 4 mg PO Q8H PRN (Reason: Nausea) allopurinol 100 mg tablet 100 mg PO DAILY tacrolimus 1 mg capsule 1 mg PO BID levothyroxine 100 mcg tablet 1 tab PO DAILY oxycodone 5 mg tablet 1 tab PO BID PRN (Reason: pain) metoprolol tartrate 25 mg Tablet 25 mg PO BID Qty: 0 0RF Protocol: Hold for SBP/HR < HOLD for SBP < : 90 HOLD for HR < : 60 clonazepam 1 mg tablet 1 tab PO DAILY PRN (Reason: panic attack) midodrine 5 mg tablet 1 tab PO 3XW famotidine 20 mg tablet 1 tab PO BID rosuvastatin 5 mg tablet 1 tab PO DAILY sevelamer carbonate 800 mg tablet 1 tab PO TIDWM hydrocortisone 2.5 % cream 1 appl topical BID PRN (Reason: skin irritation) Qty: 20 0RF aspirin 81 mg tablet,delayed release (DR/EC) 81 mg PO QAM folic acid 1 mg tablet 1 mg PO DAILY Discharge Orders: Discharge Order (Routine); Ordered 01/17/22 Ordered By: Prince Florentino Diet: low potassium diet Activity on Discharge: As tolerated Stand Alone Forms: Patient Portal Discharge page Care Plan Goals: Patient was admitted due to acute hyperkalemia and missing dialysis : Patient was started on hemodialysis and potassium is improving still borderline 5.2-5.3 range: Discussed with the nephrology will start Lokelma on non hemodialysis day and advised to continue low-potassium diet. Nephrology will repeat labs including BMP outpatient. LegErysipelas: Discussed with the nephrology patient will need-Would give 1 g IV with dialysis for ten days, Nephro will arrange it out patiently-[facility]. d/w nephro in detail. Abdominal punch out ( small areas): Patient says she was supposed to follow-up with tobacco sampler out patiently, seen by surgery here was thought to be related to her sports cars and further management outpatient as per Dermatology and PCP. Health Concerns: Continue to monitor-if any new symptoms including fever or worsening of leg pain or rash please go to nearest emergency room for further evaluation. Please complete the course of IV antibiotics as per Nephrology outpatient Follow-up with Dermatology for above. Plan of Treatment: As above. Assessment: as above. Patient Instructions: Cellulitis (DC), Hyperkalemia (DC)
--- NOTE | 2022-01-17 12:12 | PM.PNNEP ---
Subjective Subjective Date of Service: 01/17/22 Interval history: Hyperkalemia, left lower extremity cellulitis Chart Reviewed. Events noted. Physical Exam Vital Signs: Vital Signs: Last Vital Signs Temp 98.3 F 01/17/22 08:00 Pulse 75 01/17/22 08:00 Resp 16 01/17/22 08:00 BP 131/65 01/17/22 08:00 Pulse Ox 94 01/17/22 08:00 O2 Del Method 01/17/22 08:00 BMI result Body Mass Index 24.3 Const: General: comfortable and no acute distress Orientation/consciousness: patient oriented x3 HEENT: Head: Yes No palpable skull fracture present, Yes normocephalic and Yes atraumatic Resp: Auscultation: clear to auscultation bilaterally Cardio: Jugular venous distension: no JVD Rate: regular rate Rhythm: regular rhythm Heart sounds: S1 normal heart sound present and S2 normal heart sound present GI: Auscultation: normal bowel sounds Neuro: General: patient oriented x3 Extrem: General: Yes no clubbing, cyanosis or edema Objective Data Labs CBC & Chem 7: 01/15/22 05:47 01/16/22 07:24 Procedures Date of Service Date of Service: 01/17/22 Assessment & Plan Assessment and plan (1) End-stage renal disease (ESRD): Status: Acute Assessment and Plan: #ESRD on HD. HD per TTS schedule. Receiving 1Gm IV vancomycin post HD. WIll need to be communicated to outpatient HD unit. (7-10 days per ID note). Ends on 02/05 [facility] [place] to have noted hyperkalemia. Suggest scheduling 10 Gm lokelma on Non-HD days. She should have URR calculated at time of next HD Protect access arm K bath per protocol. NORMA per protocol. Hold sevelamer for now. Phos on lower side. tacrolimus level pending. will follow up. Time Spent With Patient Time: Total time spent is greater than 50% in coordination of care (as documented) at patient's floor/unit and/or counseling patient: Progress Note: Quality Stroke Does the patient have a stroke diagnosis?: No
--- NOTE | 2022-01-17 12:23 | MHC.CM.PN ---
Patient has been medically cleared for dc to home today, self care. IMM addressed with Patient at bedside and original has been given to Patient and a copy has been placed on the chart.
[2022-01-17 13:03] LABS: Tacrolimus Prograf 4.4 mcg/L
--- NOTE | 2022-01-17 13:17 | MHC.CM.PN ---
Per MD, Patient needs VNA. [facility] has been notified of today's dc.
--- NOTE | 2022-01-17 13:34 | W.MHC.F2F ---
Service Date Service Date: 01/17/22 Encounter Date of encounter: 01/17/22 Encounter: leg erysiplas, hyperkalemia Reasons for Services Signs and symptoms assessed: leg erysiplas, hyperkalemia Reason for correction: medication management, medication treatment and teach disease management MD Overseeing Care: Vanessa Hu Homebound: Leaving the home is medically contraindicated at this time without the asist of a device and/or another person due th the listed conditions above and below. Reason homebound: weakness related to hospital stay Homebound supporting statement: Patient is generalized weak post hospitalization and needed help with going to appointment as well as lab draws Certification: Based on the above findings, I certify that this patient is confined to the home and needs intermittent correction care, physical therapy and/or speech therapy, or continues to need occupational therapy. The patient is under my care, and I have initiated the establishment of the plan of care. The patient will be followed by a physician who will periodically review the plan of care.
[2022-01-17 15:33] VITALS: BP 87/56; PULSE 70; RESP 16; TEMP 35.9; O2SAT 99
== END 2022-01-17 18:51 | disposition home health service (06) | DRG 640 ==
LOC: HO.ED 23:01 → HO.EDOVER 23:35 → HO.IMC 01-14 16:20
PROVIDERS: Internal Medicine; Internal Medicine Nephrology; Physician Assistant; Admitting Provider Student in an Organized Health Care Education/Training Program; Emergency Provider Internal Medicine; PCP Pediatrics; Visit Provider Internal Medicine
DX: E87.5 Hyperkalemia (principal); N18.6 End stage renal disease; I12.0 Hypertensive chronic kidney disease with stage 5 chronic kidney disease or end stage renal disease; D84.821 Immunodeficiency due to drugs; Z94.4 Liver transplant status; Z99.2 Dependence on renal dialysis; A46 Erysipelas; E03.9 Hypothyroidism, unspecified; F41.9 Anxiety disorder, unspecified; J45.20 Mild intermittent asthma, uncomplicated; F32.A Depression, unspecified; M10.9 Gout, unspecified; E78.2 Mixed hyperlipidemia; I25.10 Atherosclerotic heart disease of native coronary artery without angina pectoris; Z20.822 Contact with and (suspected) exposure to COVID-19; Z91.15 Patient's noncompliance with renal dialysis; Z79.621 Long term (current) use of calcineurin inhibitor; Z95.2 Presence of prosthetic heart valve; Z88.2 Allergy status to sulfonamides; Z88.8 Allergy status to other drugs, medicaments and biological substances; Z79.82 Long term (current) use of aspirin; Z79.890 Hormone replacement therapy; Z79.899 Other long term (current) drug therapy
CPT/HCPCS: 36415; 71045; 80048; 80053; 80197; 80202; 82947; 83540; 83605; 83880; 84100; 85025; 85610; 87635; 90935; 90999; 93005; 93971; 97162; 99285; J0610; J0696; J2270; J3370

== ENCOUNTER 2022-06-17 14:05 | Outpatient (REF) | payer OTHER, SELFPAY ==
--- NOTE | ~2022-06-17 | MM_ITS ---
EXAMINATION: MM SCREENING DIGITAL BREAST TOMOSYNTHESIS, BILATERAL CLINICAL INFORMATION: Screening. Asymptomatic. The lifetime risk of breast cancer based on the Tyrer-Cuzick Model is 3%. COMPARISON: Mammography: 05/18/2021, 03/30/2020, 05/14/2017 TECHNIQUE: Digital breast tomosynthesis is performed in both the craniocaudal and mediolateral oblique views along with computer-aided detection (CAD). Synthesized 2D images are generated from the tomosynthesis. Additional right MLO view is provided. FINDINGS: The breasts are almost entirely fatty (ACR BI-RADS breast composition Category a). Background stromal markings are stable. No developing density or architectural abnormality or significant mass. Again, there are numerous benign bilateral calcifications, most are vascular, ductal secretory, as well as dermal. The axilla and skin contours are unremarkable. There are no significant changes. MM/MM tomosynthesis screening BI IMPRESSION: No mammographic evidence of malignancy. ASSESSMENT: BI-RADS 2: Benign RECOMMENDATION: Routine annual mammography screening. This patient's information was entered into a reminder system with a target due date for their next mammogram.
== END 2022-06-17 14:06 | disposition home or self-care (01) ==
LOC: HO.MAMMO 14:05
PROVIDERS: PCP Pediatrics; Visit Provider Pediatrics
DX: Z12.31 Encounter for screening mammogram for malignant neoplasm of breast (principal)
CPT/HCPCS: 77063; 77067

== ENCOUNTER 2022-12-10 11:48 | Outpatient (REF) | payer OTHER, SELFPAY ==
--- NOTE | ~2022-12-10 | XR_ITS ---
EXAMINATION: XR FOOT, LEFT CLINICAL INFORMATION: Toe infection COMPARISON: None available. TECHNIQUE: AP, lateral, and oblique views of the left foot. FINDINGS: Osteopenia. No fracture or dislocation. There is osseous fusion across multiple interphalangeal joints, including the first digit interphalangeal joint as well as the proximal interphalangeal joints of the second and third digits. Mild degenerative change at the first metatarsophalangeal joint. Prominent plantar heel spur. Diffuse vascular calcifications. No osseous erosions. Mild diffuse soft tissue swelling. XR/XR foot LT min 3V IMPRESSION: 1. Osteopenia. No acute osseous abnormality. No osseous erosions. 2. Osseous fusion across multiple interphalangeal joints.
[2022-12-10 14:38] LABS: MANUAL DIFF FLAG NO
[2022-12-10 14:42] LABS: Basophils Absolute Auto 0.1 X10*3/uL (0.0-0.2); Basophils Percent Auto 0.4 % (0-2); Eosinophils Absolute Auto 0.1 X10*3/uL (0.0-0.4); Eosinophils Percent Auto 0.5 % (0-4); Hematocrit 41.3 % (37.0-47.0); Hemoglobin 12.7 g/dl (12.0-16.0); Imm Gran Abs Auto 0.06 X10*3/uL (0.00-0.03); Imm Gran Pct Auto 0.5 % (0.0-0.4); Lymphocytes Absolute Auto 1.3 X10*3/uL (1.2-4.9); Lymphocytes Percent Auto 9.8 % (20-40); Mean Corpuscular HGB Conc 30.8 g/dl (31.0-35.0); Mean Corpuscular Hemoglobin 27.4 pg (27.0-33.0); Mean Platelet Volume 10.9 fL (9.4-12.3); Monocytes Absolute Auto 0.9 X10*3/uL (0.1-1.2); Monocytes Percent Auto 6.7 % (2-11); Neutrophils Absolute Auto 10.5 x10*3/uL (2.0-8.3); Neutrophils Percent Auto 82.1 % (45-73); Platelet Count 289 X10*3/uL (160-400); Red Blood Count 4.64 X10*6/uL (4.20-5.50); Red Cell Distribution Width 16.4 % (11.0-16.0); White Blood Count 12.8 X10*3/uL (4.8-10.8)
[2022-12-10 14:56] LABS: C Reactive Protein 4.68 mg/dL (< or = 0.50)
[2022-12-10 15:27] LABS: Erythrocyte Sedimentation Rate 23 MM/HR (0-20)
== END 2022-12-10 11:49 | disposition home or self-care (01) ==
LOC: HO.CHCLDS 11:48
PROVIDERS: PCP Internal Medicine; Visit Provider Internal Medicine
DX: L08.9 Local infection of the skin and subcutaneous tissue, unspecified (principal)
CPT/HCPCS: 36415; 73630; 85025; 85652; 86140

== ENCOUNTER 2022-12-31 15:07 | Outpatient (REF) | payer OTHER, SELFPAY | END 2022-12-31 15:08 | disposition home or self-care (01) | LOC: HO.XRAY 15:07 | PROVIDERS: PCP Pediatrics; Visit Provider Pediatrics | DX: M54.9 Dorsalgia, unspecified (principal) | CPT/HCPCS: 72072; 72100 ==

== ENCOUNTER 2023-01-20 15:05 | Emergency (ER) | payer OTHER, SELFPAY ==
--- NOTE | ~2023-01-20 | CT_ITS ---
EXAMINATION: CT ABDOMEN AND PELVIS WITHOUT CONTRAST CLINICAL INFORMATION: Lower abdominal pain, rule out diverticulitis, obs. COMPARISON: 02/01/2021. TECHNIQUE: Multidetector volumetric imaging was performed from the superior aspect of the liver through the pubic symphysis without contrast per request. Sagittal and coronal reformatted images were obtained on the technologist workstation. This CT examination was performed using dose optimization techniques as appropriate, variously including the following: *Automated exposure control *Adjustment of mA and/or kV according to patient size (this includes techniques or standardized protocols for targeted exams where dose is matched to indication/reason for exam; i.e. extremities or head) *Use of iterative reconstruction technique DLP: 429 mGy-cm. FINDINGS: LUNG BASES: Minimal dependent atelectasis. TAVR stent. LIVER, GALLBLADDER, BILIARY TREE: Multiple surgical clips are seen about the liver suggesting the possibility of prior liver transplant with this configuration. This could be clinically correlated. Otherwise the non-contrast liver is normal in size, shape, and attenuation. No focal hepatic lesion or biliary ductal dilatation is present. The gallbladder surgically absent. PANCREAS: Unremarkable. SPLEEN: Unremarkable. ADRENAL GLANDS: Unremarkable. KIDNEYS AND URETERS: The kidneys are symmetrically atrophic and similar to the prior study. No hydronephrosis, hydroureter, or calculi seen. No perinephric stranding. BLADDER: Completely decompressed GASTROINTESTINAL TRACT: Colon is tortuous. Extensive colonic diverticulosis. No focal colonic wall thickening or pericolonic inflammatory change to suggest acute diverticulitis. No obstructive changes to the small bowel. Small portion of nonobstructed distal small bowel now extends within the right inguinal hernia ABDOMINAL WALL: Nonobstructed small bowel seen within the small right inguinal hernia. Patient is likely status post left inguinal hernia repair orphaned spinal stimulator lead is noted. LYMPHOVASCULAR STRUCTURES: Prominent vascular calcification within the aorta iliac system. Although this is a noncontrast study, spontaneous mesocaval shunt vessels are seen extending within the left retroperitoneum. PELVIC VISCERA: Unremarkable. OSSEUS STRUCTURES: Multilevel degenerative changes in the spine compression deformities of L1, L3, and L5 with vertebroplasty cement again seen at L5. The degree of compression deformities appears similar to the 02/01/[address]/CT abdomen pelvis wo IV con IMPRESSION: Extensive diverticulosis but no evidence for acute diverticulitis. Chronic appearing and postoperative changes as described above. Nonobstructed distal small bowel seen within the right inguinal hernia.
[2023-01-20 15:12] VITALS: BP 200/100; PULSE 70; O2SAT 98
[2023-01-20 15:20] VITALS: BP 174/76; PULSE 70; RESP 18; TEMP 36.7; O2SAT 99; BMI 25.8
--- NOTE | 2023-01-20 15:30 | ED_ITS ---
HPI - Abdominal Pain General Chief Complaint: Abdominal Pain Stated Complaint: ABD PAIN W/FALL PER EMS Time Seen by Provider: 01/20/23 15:26 Source: patient Mode of arrival: EMS Limitations: no limitations History of Present Illness HPI narrative: 72-year-old female with a pertinent history of gout, GERD, aortic valve replaced (TAVR) anxiety, depression, hyperkalemia, DJD thoracic spine, COPD, anemia, ESRD on hemodialysis (), alcoholic cirrhosis status post liver transplant, hypothyroidism, essential hypertension, mood disorder, gout, who presents to the emergency department for evaluation of abdominal pain. Patient states she has been having abdominal pain for approximately 4-5 weeks. She states that approximately 1 1/2 weeks ago she saw her PCP who started her on tizanidine and carbamazepine for her abdominal/back pain, she states that this has not helped. She states that today she had 4-5 episodes of abdominal pain she points to her lower abdomen when asked to localize the pain. She states the pain is a sharp stabbing pain which will last for minutes and then resolved. According to nursing notes the patient was folding laundry when she had the spasm/sharp pain in her abdomen, back caused her to buckle at the knees and fall to her knees. She then activated [facility] initially refuse transport but then did agree to come to the hospital for evaluation. She states that she has chronic back pain and takes oxycodone 10 mg every 4-6 hours as needed for pain. She states she has been having trouble walking at home even when she is using her walker. She states that she currently is having lower abdominal pain which is, constant, sharp and is 10/10. The patient denied fever, chills, rhinorrhea, chest pain, shortness of breath, nausea, vomiting, diarrhea. She is a dialysis patient she does not make urine. Patient states that she has not missed dialysis and she had a full dialysis on Friday. Related Data Home Medications Medication Instructions Recorded Confirmed aspirin 81 mg tablet,delayed 81 mg PO QAM 01/26/20 01/14/22 release folic acid 1 mg tablet 1 mg PO DAILY 01/26/20 01/14/22 allopurinol 100 mg tablet 100 mg PO DAILY 03/08/20 01/14/22 tacrolimus 1 mg capsule, 1 mg PO BID 03/08/20 01/14/22 immediate-release albuterol sulfate 90 mcg/actuation 2 puff inhalation Q4-6H PRN 08/07/20 01/14/22 aerosol inhaler (Ventolin HFA) Shortness Of Breath Or Wheezing calcium citrate 200 mg (950 mg) 400 mg PO USEASDIRECTD 08/14/20 01/14/22 tablet cholecalciferol (vitamin D3) 50 1 tab PO DAILY 08/14/20 01/14/22 mcg (2,000 unit) tablet hydroxyzine HCl 25 mg tablet 1 tab PO TID PRN Itching 08/14/20 01/14/22 ondansetron HCl 4 mg tablet 4 mg PO Q8H PRN Nausea 08/14/20 01/14/22 (Zofran) ropinirole 0.5 mg tablet 1 tab PO BEDTIME 08/14/20 01/14/22 venlafaxine 25 mg tablet 1 tab PO DAILY 08/14/20 01/14/22 levothyroxine 100 mcg tablet 1 tab PO DAILY 02/01/21 01/14/22 oxycodone 5 mg tablet 1 tab PO BID PRN pain 02/01/21 01/14/22 clonazepam 1 mg tablet 1 tab PO DAILY PRN panic attack 01/14/22 01/14/22 famotidine 20 mg tablet 1 tab PO BID 01/14/22 01/14/22 midodrine 5 mg tablet 1 tab PO 3XW 01/14/22 01/14/22 rosuvastatin 5 mg tablet 1 tab PO DAILY 01/14/22 01/14/22 sevelamer carbonate 800 mg tablet 1 tab PO TIDWM 01/14/22 01/14/22 alclometasone 0.05 % topical topical 02/13/22 ointment Previous Rx's Medication Instructions Recorded metoprolol tartrate 25 mg tablet 25 mg PO BID #0 tabs 02/07/21 hydrocortisone 2.5 % topical cream 1 appl topical BID PRN skin 11/27/21 irritation #20 grams sodium zirconium cyclosilicate 10 10 g PO .3xweek hyperkalemia #11 01/17/22 gram oral powder packet (Lokelma) ea Allergies Allergy/AdvReac Type Severity Reaction Status Date / Time Sulfa (Sulfonamide Allergy Intermediate HIVES Verified 02/13/22 14:50 Antibiotics) Heparin Analogues Allergy Unknown UNKNOWN Verified 02/13/22 14:50 [Heparin Agents] verapamil Allergy Unknown unknown Verified 02/13/22 14:50 Review of Systems Review of Systems Yes all other systems are reviewed and are negative [facility] Past Medical History Medical History Patient on waiting list for kidney transplant Gout History of transcatheter aortic valve replacement (TAVR) History of blood transfusion GERD (gastroesophageal reflux disease) Anxiety and depression AV fistula Hemodialysis patient COVID-19 vaccine series completed Murmur Hyperkalemia Left inguinal hernia DJD (degenerative joint disease) of thoracic spine Neuropathy End-stage renal disease (ESRD) COPD (chronic obstructive pulmonary disease) Coronary artery disease Bronchitis Asthma Arthritis Anemia Cirrhosis Surgical History Hx of colonoscopy History of liver transplant History of surgery on arm Social History Social History Household Members: None Housing: House Are you a primary intensive care ambulance paramedic to a significant other at home: No Do you presently have visiting nurse or other home services: No Unable to assess alcohol history related to: Unable to respond Alcohol intake: former Year quit: 2008 Patient Tobacco Use Status: Never used Tobacco e-Cigarette/Vaping Use: Never Used Second Hand Smoke Exposure: No Advance Directives: Yes Advance Directives on File: Yes Advance Directives Date on File: 03/08/20 service: No Current occupational status: retired Physical Exam ED Vital Signs: Vital Signs - 24 hr 01/20/23 15:20 Temperature 98.1 F Pulse Rate 70 Respiratory Rate 18 Blood Pressure 174/76 H Pulse Oximetry 99 Oxygen Delivery Method Room Air BMI result Body Mass Index 25.8 Vital signs were normal Exam: General: Awake, alert in no distress Head: Normocephalic, atraumatic EENT: PERRL, Lids normal, sclera normal, conjunctiva normal, nose normal , ears normal, throat without erythema or exudates Neck: Supple, no adenopathy, no trachea midline or C-spine tenderness Lung: breath sounds symmetric, no wheezing, rales or rhonchi Chest: symmetric movement, nontender Heart: regular rate and rhythm, normal S1, S2 no murmurs or rubs Abdomen: soft, distended hyperactive bowel sounds, diffuse tenderness with increased tenderness with palpation of the lower abdomen, no rebound Back: no vertebral tenderness, no CVAT Extremities: no deformities, moves all extremities symmetrically Skin: no rashes, no lesion, normal color and warmth Neuro: Awake, alert, oriented, normal speech, cranial nerves intact, moves all extremities symmetrically Psych: Pleasant, cooperative Medical Decision Making Medical Decision Making MDM Narrative: 72-year-old female with a pertinent history of gout, GERD, aortic valve replaced (TAVR) anxiety, depression, hyperkalemia, DJD thoracic spine, COPD, anemia, ESRD on hemodialysis (), alcoholic cirrhosis status post liver transplant, hypothyroidism, essential hypertension, mood disorder, gout, who presents to the emergency department for evaluation of abdominal pain times 4-5 weeks, multiple episodes per day, 5 episodes today with 1 episode having severe pain that caused her to buckle at the knee, fall and she activated her lifeline. Patient's vital signs were normal. Patient does have a distended abdomen with hyperactive bowel sounds, she has diffuse tenderness with increased tenderness palpation over lower abdomen. I ordered the following evaluation: CBC, CMP, lipase, CT scan of the abdomen pelvis without IV contrast. Patient does have chronic thoracic back pain and takes oxycodone at home. Recently seen by her PCP and started on muscle relaxants with no relief for pain. Patient was ordered to get oxycodone 10 mg orally. 19:12 The patient got minimal relief with the oral oxycodone, therefore oxycodone [address] scan of the abdomen pelvis did not reveal a clear cause for the patient's abdominal pain, however she does have multilevel degenerative changes in the spine compression deformities of L1, L3, and L5 with vertebroplasty cement again seen at L5. The degree of compression deformities appears similar to the 02/01/2021 CT scan. At this time, I suspect the patient's pain may be related to her degenerative lumbar disease. Patient was having difficulty walking here in the emergency department even using her walker. Given her persistent back pain, abdominal pain and unstable gait, I do not think that she can be discharged home and should be admitted for pain management, PT evaluation case management evaluation. I did discuss the patient with covering chairman & chief executive officer, Dr. Miranda he states the patient will be dialyzed in the morning. Patient was given lokelma 10 mg orally. I did discuss admission with the covering hospitalist. 20:20 The patient was seen by the hospitalist, Dr. Vasquez. The patient does not want to be placed in a nursing facility. Patient was able to walk using her walker without difficulty. The patient will be discharged home and advised to keep her dialysis appointment in the morning in to discuss getting further home services with her PCP. Differential Diagnosis Differential Diagnoses: The differential diagnosis associated with the presentation includes Differential diagnosis includes was not limited to pancreatitis, bowel obstruction, viral syndrome, gastritis, muscle spasm Admission/Observation Consideration of admission/observation: Escalation of care including admission/observation considered Lab Data 01/20/23 18:23 01/20/23 18:23 Labs: Lab Results 01/20/23 Range/Units 18:23 WBC 10.7 (4.8-10.8) X10*3/uL RBC 4.09 L (4.20-5.50) X10*6/uL Hgb 11.5 L (12.0-16.0) g/dl Hct 37.2 (37.0-47.0) % MCV 91.0 (80.0-98.0) fL MCH 28.1 (27.0-33.0) pg MCHC 30.9 L (31.0-35.0) g/dl RDW 16.9 H (11.0-16.0) % Plt Count 229 (160-400) X10*3/uL MPV 11.1 (9.4-12.3) fL Immature Gran % (Auto) 0.8 H (0.0-0.4) % Neut % (Auto) 77.8 H (45-73) % Lymph % (Auto) 14.7 L (20-40) % [place] % (Auto) 5.5 (2-11) % Eos % (Auto) 0.8 (0-4) % Baso % (Auto) 0.4 (0-2) % Lymph # (Auto) 1.6 (1.2-4.9) X10*3/uL [place] # (Auto) 0.6 (0.1-1.2) X10*3/uL Eos # (Auto) 0.1 (0.0-0.4) X10*3/uL Baso # (Auto) 0.0 (0.0-0.2) X10*3/uL Abs Immat Gran (auto) 0.09 H (0.00-0.03) X10*3/uL Absolute Neuts (auto) 8.3 (2.0-8.3) x10*3/uL Absolute Nucleated RBC 0.000 (0.0-0.012) X10*3/uL Nucleated RBC % (auto) 0.0 (0.0-0.2) /100WBC Sodium 138 (135-145) mmol/L Potassium 6.0 H* (3.3-5.1) mmol/L Chloride 101 (96-108) mmol/L Carbon Dioxide 27 (22-29) mmol/L Anion Gap 16 (12-20) BUN 53 H (9-16) mg/dL Creatinine 5.95 H* (0.5-1.4) mg/dL Estim Creat Clear Calc 9.4 Estimated GFR 7 Random Glucose 106 (60-115) mg/dL Calcium 9.0 (8.4-10.2) mg/dL Total Bilirubin 0.5 (0.0-1.0) mg/dL AST 18 (5-31) U/L ALT 12 (0-31) U/L Alkaline Phosphatase 167 H (39-117) U/L Total Protein 6.8 (6.5-8.0) g/dL Albumin 3.4 L (3.5-5.0) g/dL Lipase 42 (8-78) U/L Radiology Impression Discussion of test interpretation with radiology: I have reviewed the radiologist's reading. Radiologist Impression: EXAMINATION: CT ABDOMEN AND PELVIS WITHOUT CONTRAST CLINICAL INFORMATION: Lower abdominal pain, rule out diverticulitis, obs. COMPARISON: 02/01/2021. FINDINGS: LUNG BASES: Minimal dependent atelectasis. TAVR stent. LIVER, GALLBLADDER, BILIARY TREE: Multiple surgical clips are seen about the liver suggesting the possibility of prior liver transplant with this configuration. This could be clinically correlated. Otherwise the non-contrast liver is normal in size, shape, and attenuation. No focal hepatic lesion or biliary ductal dilatation is present. The gallbladder surgically absent. PANCREAS: Unremarkable. SPLEEN: Unremarkable. ADRENAL GLANDS: Unremarkable. KIDNEYS AND URETERS: The kidneys are symmetrically atrophic and similar to the prior study. No hydronephrosis, hydroureter, or calculi seen. No perinephric stranding. BLADDER: Completely decompressed GASTROINTESTINAL TRACT: Colon is tortuous. Extensive colonic diverticulosis. No focal colonic wall thickening or pericolonic inflammatory change to suggest acute diverticulitis. No obstructive changes to the small bowel. Small portion of nonobstructed distal small bowel now extends within the right inguinal hernia ABDOMINAL WALL: Nonobstructed small bowel seen within the small right inguinal hernia. Patient is likely status post left inguinal hernia repair orphaned spinal stimulator lead is noted. LYMPHOVASCULAR STRUCTURES: Prominent vascular calcification within the aorta iliac system. Although this is a noncontrast study, spontaneous mesocaval shunt vessels are seen extending within the left retroperitoneum. PELVIC VISCERA: Unremarkable. OSSEUS STRUCTURES: Multilevel degenerative changes in the spine compression deformities of L1, L3, and L5 with vertebroplasty cement again seen at L5. The degree of compression deformities appears similar to the 02/01/[address]/CT abdomen pelvis wo IV con IMPRESSION: Extensive diverticulosis but no evidence for acute diverticulitis. Chronic appearing and postoperative changes as described above. Nonobstructed distal small bowel seen within the right inguinal hernia. Dictated By: Amrit Dolan MD Medications Administered Discontinued Medications Generic Name Dose Route Start Last Admin Trade Name Freq PRN Reason Stop Dose Admin Bacitracin 1 appl 01/20/23 19:13 01/20/23 19:29 Bacitracin Oint 0.9 Gm Packet TOPICAL 01/20/23 19:14 1 appl ONCE ONE Administration Protocol Oxycodone HCl 10 mg 01/20/23 15:46 01/20/23 15:58 Oxycodone Hcl Immed Release 5 Mg Tablet PO 01/20/23 15:47 10 mg ONCE STA Administration Oxycodone HCl 10 mg 01/20/23 19:15 01/20/23 19:29 Oxycodone Hcl Immed Release 5 Mg Tablet PO 01/20/23 19:16 10 mg ONCE ONE Administration Discharge Plan Discharge Clinical Impression: Unsteady gait, Acute hyperkalemia, End stage chronic kidney disease Abdominal pain Qualifiers: Abdominal location: generalized Qualified Code(s): R10.84 - Generalized abdominal pain Back pain Qualifiers: Back pain location: low back pain Fall Qualifiers: Encounter type: initial encounter Qualified Code(s): W19.XXXA - Unspecified fall, initial encounter Patient Disposition: Home, Self-Care Instructions: Acute Low Back Pain (ED) Additional Instructions: Your blood work was unremarkable except for an elevated potassium. The CT scan of your abdomen and pelvis did not reveal a cause for your abdominal pain however you do have significant arthritis of your back in your abdominal pain is most likely caused by your arthritis of your back. Continue taking medications as prescribed by your primary care provider. You should discuss getting more services at home with her primary care provider. Make sure you keep your dialysis appointment tomorrow as scheduled. Follow-up with your doctor in 2 days. Please return to the emergency department if your symptoms get worse or if you develop any symptoms that are concerning to you. Prescriptions: No Action albuterol sulfate [Ventolin HFA] 90 mcg/actuation Hfa Aerosol Inhaler 2 puff INHALATION Q4-6H PRN (Reason: Shortness Of Breath Or Wheezing) venlafaxine 25 mg tablet 1 tab PO DAILY ropinirole 0.5 mg tablet 1 tab PO BEDTIME hydroxyzine HCl 25 mg tablet 1 tab PO TID PRN (Reason: Itching) calcium citrate 200 mg (950 mg) Tablet 400 mg PO USEASDIRECTD Patient Comments: PREVIOUSLY WAS DAILY BUT REPORTS ONLY DIALYSIS DAYS NOW Rx Instructions: DIALYSIS DAYS cholecalciferol (vitamin D3) 50 mcg (2,000 unit) tablet 1 tab PO DAILY ondansetron HCl [Zofran] 4 mg Tablet 4 mg PO Q8H PRN (Reason: Nausea) allopurinol 100 mg tablet 100 mg PO DAILY tacrolimus 1 mg capsule 1 mg PO BID levothyroxine 100 mcg tablet 1 tab PO DAILY oxycodone 5 mg tablet 1 tab PO BID PRN (Reason: pain) metoprolol tartrate 25 mg Tablet 25 mg PO BID Qty: 0 0RF Protocol: Hold for SBP/HR < HOLD for SBP < : 90 HOLD for HR < : 60 clonazepam 1 mg tablet 1 tab PO DAILY PRN (Reason: panic attack) midodrine 5 mg tablet 1 tab PO 3XW famotidine 20 mg tablet 1 tab PO BID rosuvastatin 5 mg tablet 1 tab PO DAILY sevelamer carbonate 800 mg tablet 1 tab PO TIDWM Lokelma 10 gram powder in packet 10 g PO .3xweek Qty: 11 0RF Rx Instructions: use loklema 3 times a week on non HD day. hydrocortisone 2.5 % cream 1 appl topical BID PRN (Reason: skin irritation) Qty: 20 0RF alclometasone 0.05 % ointment topical aspirin 81 mg tablet,delayed release (DR/EC) 81 mg PO QAM folic acid 1 mg tablet 1 mg PO DAILY
[2023-01-20] MEDS: oxyCODONE HCl Immed Release 5 MG TABLET 10 MG PO ×2 (15:58→19:29)
[2023-01-20 18:26] LABS: MANUAL DIFF FLAG NO
[2023-01-20 18:46] LABS: Basophils Percent Auto 0.4 % (0-2); Eosinophils Absolute Auto 0.1 X10*3/uL (0.0-0.4); Eosinophils Percent Auto 0.8 % (0-4); Hematocrit 37.2 % (37.0-47.0); Hemoglobin 11.5 g/dl (12.0-16.0); Imm Gran Abs Auto 0.09 X10*3/uL (0.00-0.03); Imm Gran Pct Auto 0.8 % (0.0-0.4); Lymphocytes Absolute Auto 1.6 X10*3/uL (1.2-4.9); Lymphocytes Percent Auto 14.7 % (20-40); Mean Corpuscular HGB Conc 30.9 g/dl (31.0-35.0); Mean Corpuscular Hemoglobin 28.1 pg (27.0-33.0); Mean Platelet Volume 11.1 fL (9.4-12.3); Monocytes Absolute Auto 0.6 X10*3/uL (0.1-1.2); Monocytes Percent Auto 5.5 % (2-11); Neutrophils Absolute Auto 8.3 x10*3/uL (2.0-8.3); Neutrophils Percent Auto 77.8 % (45-73); Platelet Count 229 X10*3/uL (160-400); Red Blood Count 4.09 X10*6/uL (4.20-5.50); Red Cell Distribution Width 16.9 % (11.0-16.0); White Blood Count 10.7 X10*3/uL (4.8-10.8)
[2023-01-20 18:50] LABS: Alanine Aminotransferase 12 U/L (0-31); Albumin Level 3.4 g/dL (3.5-5.0); Alkaline Phosphatase 167 U/L (39-117); Anion Gap 16 (12-20); Aspartate Amino Transferase 18 U/L (5-31); Bilirubin Total 0.5 mg/dL (0.0-1.0); Blood Urea Nitrogen 53 mg/dL (9-16); Carbon Dioxide 27 mmol/L (22-29); Chloride 101 mmol/L (96-108); Creatinine Clr Calc Pharmacy 9.4; Estimated Glomerular Filt Rate 7; Glucose Random 106 mg/dL (60-115); Lipase 42 U/L (8-78); Sodium 138 mmol/L (135-145); Total Protein 6.8 g/dL (6.5-8.0)
--- NOTE | 2023-01-20 19:28 | PC.NURSE ---
Critical creat 5.95 reported to SEPIDEH Mohan and provider Dr Miguel
[2023-01-20] MEDS: Bacitracin Oint 0.9 GM PACKET 1 APPL TOPICAL (19:29)
--- NOTE | 2023-01-20 20:41 | PHA.MEDREC ---
Pharmacy Consult ? Medication Reconciliation Pharmacy has completed the medication reconciliation.PAtient no a good historian has to use mostly claim history
[2023-01-20] MEDS: Sodium Zirconium Cyclosilicate 10 GM POWD.PACK PO (20:50)
== END 2023-01-20 21:42 | disposition home or self-care (01) ==
PROVIDERS: Emergency Provider Emergency Medicine Emergency Medical Services; PCP Pediatrics
DX: R10.84 Generalized abdominal pain (principal); R26.81 Unsteadiness on feet; N18.6 End stage renal disease; I25.10 Atherosclerotic heart disease of native coronary artery without angina pectoris; E87.5 Hyperkalemia; Z79.899 Other long term (current) drug therapy
CPT/HCPCS: 36415; 74176; 80053; 83690; 85025; 99284

== ENCOUNTER 2023-02-22 02:41 | Emergency (ER) | payer OTHER, SELFPAY ==
[2023-02-22 02:42] VITALS: BP 182/88; BP 182/96; PULSE 92; PULSE 93; RESP 20; TEMP 36.2; O2SAT 96; O2SAT 97; BMI 21.9
[2023-02-22 03:55] LABS: MANUAL DIFF FLAG NO
[2023-02-22 03:59] LABS: Basophils Absolute Auto 0.1 X10*3/uL (0.0-0.2); Basophils Percent Auto 0.5 % (0-2); Eosinophils Absolute Auto 0.1 X10*3/uL (0.0-0.4); Eosinophils Percent Auto 0.6 % (0-4); Hematocrit 28.4 % (37.0-47.0); Hemoglobin 9.1 g/dl (12.0-16.0); Imm Gran Abs Auto 0.08 X10*3/uL (0.00-0.03); Imm Gran Pct Auto 0.8 % (0.0-0.4); Lymphocytes Absolute Auto 1.1 X10*3/uL (1.2-4.9); Lymphocytes Percent Auto 11.2 % (20-40); Mean Corpuscular Hemoglobin 28.7 pg (27.0-33.0); Mean Corpuscular Volume 89.6 fL (80.0-98.0); Mean Platelet Volume 10.9 fL (9.4-12.3); Monocytes Absolute Auto 0.7 X10*3/uL (0.1-1.2); Monocytes Percent Auto 6.8 % (2-11); Neutrophils Percent Auto 80.1 % (45-73); Platelet Count 241 X10*3/uL (160-400); Red Blood Count 3.17 X10*6/uL (4.20-5.50); Red Cell Distribution Width 15.6 % (11.0-16.0)
[2023-02-22 04:18] LABS: Alanine Aminotransferase 8 U/L (0-31); Albumin Level 2.7 g/dL (3.5-5.0); Alkaline Phosphatase 170 U/L (39-117); Anion Gap 21 (12-20); Aspartate Amino Transferase 15 U/L (5-31); Bilirubin Total 0.4 mg/dL (0.0-1.0); Blood Urea Nitrogen 60 mg/dL (9-16); Calcium 8.7 mg/dL (8.4-10.2); Carbon Dioxide 21 mmol/L (22-29); Chloride 104 mmol/L (96-108); Creatinine Clr Calc Pharmacy 5.8; Estimated Glomerular Filt Rate 5; Glucose Random 105 mg/dL (60-115); Lipase 40 U/L (8-78); Potassium 6.1 mmol/L (3.3-5.1); Sodium 140 mmol/L (135-145); Total Protein 6.4 g/dL (6.5-8.0)
--- NOTE | 2023-02-22 04:38 | PC.NURSE ---
pt a hard stick, could not place IV, placed EJ to R neck
--- NOTE | 2023-02-22 04:46 | ED.GENADULT ---
HPI - General Adult General Chief complaint: Nausea/Vomiting/Diarrhea Stated complaint: nausea and vomiting Time Seen by Provider: 02/22/23 04:16 Source: patient Mode of arrival: ambulatory Limitations: no limitations History of Present Illness HPI narrative: Patient with history of end-stage renal disease on dialysis Friday//Friday missed her last dialysis 2 days ago since yesterday patient has been nauseated vomited few times having body aches has slight loose stools no signal abdominal pain feel weak and tired no cough or upper respiratory symptoms Related Data Home Medications Medication Instructions Recorded Confirmed aspirin 81 mg tablet,delayed 81 mg PO QAM 01/26/20 01/20/23 release allopurinol 100 mg tablet 100 mg PO DAILY 03/08/20 01/20/23 tacrolimus 1 mg capsule, 1 mg PO BID 03/08/20 01/20/23 immediate-release albuterol sulfate 90 mcg/actuation 2 puff inhalation Q4-6H PRN 08/07/20 01/20/23 aerosol inhaler (Ventolin HFA) Shortness Of Breath Or Wheezing calcium citrate 200 mg (950 mg) 400 mg PO USEASDIRECTD 08/14/20 01/20/23 tablet cholecalciferol (vitamin D3) 50 1 tab PO DAILY 08/14/20 01/20/23 mcg (2,000 unit) tablet hydroxyzine HCl 25 mg tablet 1 tab PO TID PRN Itching 08/14/20 01/20/23 ropinirole 0.5 mg tablet 1 tab PO BEDTIME 08/14/20 01/20/23 venlafaxine 25 mg tablet 1 tab PO DAILY 08/14/20 01/20/23 oxycodone 5 mg tablet 1 tab PO BID PRN pain 02/01/21 01/20/23 clonazepam 1 mg tablet 1 tab PO DAILY PRN panic attack 01/14/22 01/20/23 famotidine 20 mg tablet 1 tab PO BID 01/14/22 01/20/23 midodrine 5 mg tablet 1 tab PO 3XW 01/14/22 01/20/23 rosuvastatin 5 mg tablet 1 tab PO DAILY 01/14/22 01/20/23 sevelamer carbonate 800 mg tablet 1 tab PO TIDWM 01/14/22 01/20/23 cyclobenzaprine 10 mg tablet 10 mg PO TID 01/20/23 01/20/23 levothyroxine 88 mcg tablet 88 mcg PO DAILY 01/20/23 01/20/23 nystatin 100,000 unit/gram topical 1 appl topical BID 01/20/23 01/20/23 cream Previous Rx's Medication Instructions Recorded metoprolol tartrate 25 mg tablet 25 mg PO BID #0 tabs 02/07/21 sodium zirconium cyclosilicate 10 10 g PO .3xweek hyperkalemia #11 01/17/22 gram oral powder packet (Lokelma) ea Allergies Allergy/AdvReac Type Severity Reaction Status Date / Time Sulfa (Sulfonamide Allergy Intermediate HIVES Verified 02/13/22 14:50 Antibiotics) Heparin Analogues Allergy Unknown UNKNOWN Verified 02/13/22 14:50 [Heparin Agents] verapamil Allergy Unknown unknown Verified 02/13/22 14:50 Review of Systems Review of Systems: Yes all other systems are reviewed and are negative PMFSH Past Medical History Medical History Patient on waiting list for kidney transplant Gout History of transcatheter aortic valve replacement (TAVR) History of blood transfusion GERD (gastroesophageal reflux disease) Anxiety and depression AV fistula Hemodialysis patient COVID-19 vaccine series completed Murmur Hyperkalemia Left inguinal hernia DJD (degenerative joint disease) of thoracic spine Neuropathy End-stage renal disease (ESRD) COPD (chronic obstructive pulmonary disease) Coronary artery disease Bronchitis Asthma Arthritis Anemia Cirrhosis Surgical History Hx of colonoscopy History of liver transplant History of surgery on arm Social History Household Members: None Housing: House Are you a primary home health care respiratory therapist to a significant other at home: No Do you presently have visiting nurse or other home services: No Unable to assess alcohol history related to: Unable to respond Alcohol intake: former Year quit: 2008 Patient Tobacco Use Status: Never used Tobacco Smoked in Last 30 Days: No e-Cigarette/Vaping Use: Never Used Second Hand Smoke Exposure: No Use of substances other than those prescribed or required for medical reasons: No Advance Directives: Yes Advance Directives on File: Yes Advance Directives Date on File: 03/08/20 service: No Current occupational status: retired Physical Exam ED Vital Signs: Vital Signs - 24 hr 02/22/23 02:42 02/22/23 05:03 Temperature 97.2 F 97.0 F Pulse Rate 93 93 Respiratory Rate 20 18 Blood Pressure 182/96 H 169/80 H Pulse Oximetry 97 95 Oxygen Delivery Method Room Air Room Air BMI result Body Mass Index 21.9 Appearance: Alert. Oriented X3. No acute distress. Eyes: PERRLA, No Nystagmus ENT: Pharynx normal. Oral Mucosa moist Neck: Normal inspection. Neck supple. CVS: Normal heart rate and rhythm. Pulses normal. Respiratory: No respiratory distress. Equal air entry bilateral, no wheezing/rales/rhonchi Abdomen: Soft and nontender. Bowel sounds are present, no mass palpable, no CVA tenderness Skin: Skin warm and dry. Normal skin color. Normal skin turgor. Extremities: No lower extremity edema. No calf tenderness Neuro: Oriented X 3. No motor deficit. No sensory deficit.No cerebellar signs , cranial nerves II-XII intact Medications Administered Discontinued Medications Generic Name Dose Route Start Last Admin Trade Name Freq PRN Reason Stop Dose Admin Calcium Gluconate 2 gm in 100 mls @ 50 mls/hr 02/22/23 04:24 02/22/23 04:52 Calcium Gluconate IV 02/22/23 06:23 50 mls/hr ONCE ONE Administration Sodium Bicarbonate 50 meq 02/22/23 04:25 02/22/23 04:55 Sodium Bicarbonate 8.4% 50 Meq/50 Ml Syringe IVPUSH 02/22/23 04:26 50 meq ONCE ONE Administration Sodium Zirconium Cyclosilicate 10 gm 02/22/23 04:24 02/22/23 04:52 Sodium Zirconium Cyclosilicate 10 Gm Powd.Pack PO 02/22/23 04:25 10 gm ONCE ONE Administration Medical Decision Making Medical Decision Making [facility] Narrative: Patient with end-stage renal disease on dialysis missed dialysis comes here a body aches likely uremia as a cause for the symptoms have slow slight hyperkalemia without EKG changes Patient received sodium bicarb calcium gluconate and Lokelma for hyperkalemia and transferred to Dialysis Center to have dialysis in a.m. Differential Diagnosis Differential Diagnoses: The differential diagnosis associated with the presentation includes Viral syndrome/end-stage renal disease/uremia/metabolic Lab Data [facility] Lab Attestation statement: I reviewed the patient's lab results. 02/22/23 03:51 02/22/23 03:51 Labs: Lab Results 02/22/23 02/22/23 Range/Units 03:51 05:07 WBC 10.0 (4.8-10.8) X10*3/uL RBC 3.17 L D (4.20-5.50) X10*6/uL Hgb 9.1 L D (12.0-16.0) g/dl Hct 28.4 L D (37.0-47.0) % MCV 89.6 (80.0-98.0) fL MCH 28.7 (27.0-33.0) pg MCHC 32.0 (31.0-35.0) g/dl RDW 15.6 (11.0-16.0) % Plt Count 241 (160-400) X10*3/uL MPV 10.9 (9.4-12.3) fL Immature Gran % (Auto) 0.8 H (0.0-0.4) % Neut % (Auto) 80.1 H (45-73) % Lymph % (Auto) 11.2 L (20-40) % [place] % (Auto) 6.8 (2-11) % Eos % (Auto) 0.6 (0-4) % Baso % (Auto) 0.5 (0-2) % Lymph # (Auto) 1.1 L (1.2-4.9) X10*3/uL [place] # (Auto) 0.7 (0.1-1.2) X10*3/uL Eos # (Auto) 0.1 (0.0-0.4) X10*3/uL Baso # (Auto) 0.1 (0.0-0.2) X10*3/uL Abs Immat Gran (auto) 0.08 H (0.00-0.03) X10*3/uL Absolute Neuts (auto) 8.0 (2.0-8.3) x10*3/uL Absolute Nucleated RBC 0.000 (0.0-0.012) X10*3/uL Nucleated RBC % (auto) 0.0 (0.0-0.2) /100WBC Sodium 140 (135-145) mmol/L Potassium 6.1 H* (3.3-5.1) mmol/L Chloride 104 (96-108) mmol/L Carbon Dioxide 21 L (22-29) mmol/L Anion Gap 21 H (12-20) BUN 60 H (9-16) mg/dL Creatinine 8.66 H* (0.5-1.4) mg/dL Estim Creat Clear Calc 5.8 Estimated GFR 5 Random Glucose 105 (60-115) mg/dL Calcium 8.7 (8.4-10.2) mg/dL Total Bilirubin 0.4 (0.0-1.0) mg/dL AST 15 (5-31) U/L ALT 8 (0-31) U/L Alkaline Phosphatase 170 H (39-117) U/L Total Protein 6.4 L (6.5-8.0) g/dL Albumin 2.7 L (3.5-5.0) g/dL Lipase 40 (8-78) U/L Influenza Type A (PCR) NEGATIVE (Negative) Influenza Type B (PCR) NEGATIVE (Negative) RSV RNA Qual (PCR) NEGATIVE (Negative) SARS-CoV-2 RNA (RT-PCR) NEGATIVE (Negative) Independent Interpretation I performed an independent interpretation of an: EKG Interpretation: Normal sinus rhythm 192 beats per minute no acute ST deviation and no acute ischemia Critical Care Time Critical Care Time Critical Care Time: Yes Total Critical Care Time: 50 Attestation: The patient was critically ill with a high probability of imminent or life threatening deterioration. I spent greater than 60 minutes of discontinuous time evaluating the patient,delivering critical care at the bedside, discussing and evaluating pertinent data with consultants. Critical care time does not include time spent performing separately billable procedures or teaching. Total time spent performing critical care was 50 minutes. Discharge Plan Discharge Clinical Impression: End-stage renal disease (ESRD), Acute hyperkalemia Patient Disposition: Still a Patient Transfer Details: Okay to have dialysis today Instructions: Hyperkalemia (ED), End Stage Kidney Disease (ED) Prescriptions: No Action albuterol sulfate [Ventolin HFA] 90 mcg/actuation Hfa Aerosol Inhaler 2 puff INHALATION Q4-6H PRN (Reason: Shortness Of Breath Or Wheezing) venlafaxine 25 mg tablet 1 tab PO DAILY ropinirole 0.5 mg tablet 1 tab PO BEDTIME hydroxyzine HCl 25 mg tablet 1 tab PO TID PRN (Reason: Itching) calcium citrate 200 mg (950 mg) Tablet 400 mg PO USEASDIRECTD Patient Comments: PREVIOUSLY WAS DAILY BUT REPORTS ONLY DIALYSIS DAYS NOW Rx Instructions: DIALYSIS DAYS cholecalciferol (vitamin D3) 50 mcg (2,000 unit) tablet 1 tab PO DAILY allopurinol 100 mg tablet 100 mg PO DAILY tacrolimus 1 mg capsule 1 mg PO BID oxycodone 5 mg tablet 1 tab PO BID PRN (Reason: pain) metoprolol tartrate 25 mg Tablet 25 mg PO BID Qty: 0 0RF Protocol: Hold for SBP/HR < HOLD for SBP < : 90 HOLD for HR < : 60 clonazepam 1 mg tablet 1 tab PO DAILY PRN (Reason: panic attack) midodrine 5 mg tablet 1 tab PO 3XW Rx Instructions: ON DIALYSIS DAYS famotidine 20 mg tablet 1 tab PO BID rosuvastatin 5 mg tablet 1 tab PO DAILY sevelamer carbonate 800 mg tablet 1 tab PO TIDWM Lokelma 10 gram powder in packet 10 g PO .3xweek Qty: 11 0RF Rx Instructions: use loklema 3 times a week on non HD day. cyclobenzaprine 10 mg tablet 10 mg PO TID levothyroxine 88 mcg tablet 88 mcg PO DAILY nystatin 100,000 unit/gram cream 1 appl topical BID aspirin 81 mg tablet,delayed release (DR/EC) 81 mg PO QAM Interventions: ED Discharge Assessment Last Done: 02/22/23 06:14 Discharge Date/Time: 02/22/23 06:15
--- NOTE | 2023-02-22 04:50 | ECG_ITS ---
Test Reason : HYPOTENSION Blood Pressure : / mmHG Vent. Rate : 092 BPM Atrial Rate : 092 BPM P-R Int : 224 ms QRS Dur : 092 ms QT Int : 388 ms P-R-T Axes : 040 -11 075 degrees QTc Int : 479 ms Sinus rhythm with 1st degree A-V block Septal infarct (cited on or before 02-FEB-2021) Abnormal ECG When compared with ECG of 13-JAN-2022 20:38, T wave amplitude has decreased in Lateral leads Referred By: [place] Electronically Signed By:SAVITA ORDOÑEZ MD
[2023-02-22] MEDS: Sodium Zirconium Cyclosilicate 10 GM POWD.PACK PO (04:52)
[2023-02-22] MEDS: Calcium Gluconate/NaCl,Iso-Osm 2 GM/100 ML PLAST..BAG IV (04:52)
[2023-02-22] MEDS: Sodium Bicarbonate 8.4% 50 MEQ/50 ML SYRINGE IVPUSH (04:55)
[2023-02-22 05:03] VITALS: BP 169/80; PULSE 93; RESP 18; TEMP 36.1; O2SAT 95
[2023-02-22 05:49] LABS: Influenza A PCR NEGATIVE (Negative); Influenza B PCR NEGATIVE (Negative); Resp Syncy Virus RNA Qual PCR NEGATIVE (Negative); SARS COV2 PCR INHOUSE NEGATIVE (Negative)
--- NOTE | 2023-02-22 05:54 | PC.NURSE ---
pt resting in bed, IV EJ very positional, medication slow to go in d/t frequent downstream occlusion . no c/o pain or discomfort at this time. awaiting transport to dialysis. pt aware of plan of care
== END 2023-02-22 06:15 | disposition still patient (30) ==
PROVIDERS: Emergency Provider Internal Medicine
DX: N18.6 End stage renal disease (principal); Z99.2 Dependence on renal dialysis; E87.5 Hyperkalemia; Z20.822 Contact with and (suspected) exposure to COVID-19; Z20.828 Contact with and (suspected) exposure to other viral communicable diseases; I48.0 Paroxysmal atrial fibrillation; Z95.2 Presence of prosthetic heart valve; Z79.82 Long term (current) use of aspirin; Z79.899 Other long term (current) drug therapy
CPT/HCPCS: 0241U; 36415; 80053; 83690; 85025; 93005; 96374; 96375; 99285; J0613

== ENCOUNTER 2023-04-04 21:01 | Emergency (ER) | payer OTHER, SELFPAY ==
[2023-04-04 21:29] VITALS: BP 155/82; BP 172/66; PULSE 64; PULSE 75; RESP 18; O2SAT 98; O2SAT 99; BMI 23.8
[2023-04-04 21:32] VITALS: BP 172/66; PULSE 64; RESP 18; O2SAT 98
--- NOTE | 2023-04-04 21:33 | PC.NURSE ---
Pt presents to ED via EMS from home for reports of abd pain. Pt is a //Fri dialysis patient. On friday, her access site infiltrated and left her sore. Pt did not go to dialysis on as she did not feel well. Pt has been reporting abd pain and diarrhea over the past day. Pt stated she is concerned that her potassium may be increased due to not being at dialysis yesterday. Dr. Mcdonald is at the bedside at this time. 20gIV placed in the right AC, labs drawn and sent.
--- NOTE | 2023-04-04 21:40 | ED.GENADULT ---
HPI - General Adult General Chief complaint: Abdominal Pain Stated complaint: ABD PAIN, MISSED DIALYSIS Time Seen by Provider: 04/04/23 21:26 Source: patient Mode of arrival: EMS Limitations: no limitations History of Present Illness HPI narrative: patient comes to the emergency room complaining of 2 days of abdominal pain and general malaise. Patient is a dialysis patient. Patient states that yesterday she was supposed to get dialysis but she was not feeling well the for skipped it. Patient concerned that her potassium may be elevated . Patient had similar symptoms a month ago and her potassium was high. Patient denies any chest pain or shortness of breath. Patient states she has been having diarrhea for about 3 days. No nausea or vomiting. Patient complaining of diffuse abdominal cramping accompanied by diarrhea. Patient denies fever chills. Patient is currently on topical antibiotics, mupirocin for a skin biopsy of her right leg. Patient states that she has skin cancer lesions that frequently get it removed. Patient states it is either squamous versus basal cell. - patient complaining of mild left upper arm discomfort. Patient states that 3 days ago, when she was on dialysis, it infiltrated and she had baseball size lump at the site of the catheter. Related Data Home Medications Medication Instructions Recorded Confirmed aspirin 81 mg tablet,delayed 81 mg PO QAM 01/26/20 04/05/23 release allopurinol 100 mg tablet 100 mg PO DAILY 03/08/20 04/05/23 tacrolimus 1 mg capsule, 1 mg PO BID 03/08/20 04/05/23 immediate-release cholecalciferol (vitamin D3) 50 1 tab PO DAILY 08/14/20 04/05/23 mcg (2,000 unit) tablet hydroxyzine HCl 25 mg tablet 1 tab PO TID PRN Itching 08/14/20 04/05/23 ropinirole 0.5 mg tablet 1 tab PO BEDTIME 08/14/20 04/05/23 venlafaxine 25 mg tablet 1 tab PO DAILY 08/14/20 04/05/23 oxycodone 5 mg tablet 1 tab PO BID PRN pain 02/01/21 04/05/23 clonazepam 1 mg tablet 1 tab PO DAILY PRN panic attack 01/14/22 04/05/23 famotidine 20 mg tablet 1 tab PO BID 01/14/22 04/05/23 midodrine 5 mg tablet 1 tab PO 3XW 01/14/22 04/05/23 rosuvastatin 5 mg tablet 1 tab PO DAILY 01/14/22 04/05/23 cyclobenzaprine 10 mg tablet 10 mg PO TID 01/20/23 04/05/23 levothyroxine 88 mcg tablet 88 mcg PO DAILY 01/20/23 04/05/23 Previous Rx's Medication Instructions Recorded metoprolol tartrate 25 mg tablet 25 mg PO BID #0 tabs 02/07/21 sodium zirconium cyclosilicate 10 10 g PO .3xweek hyperkalemia #11 01/17/22 gram oral powder packet (Lokelid) ea Allergies Allergy/AdvReac Type Severity Reaction Status Date / Time Sulfa (Sulfonamide Allergy Intermediate HIVES Verified 02/13/22 14:50 Antibiotics) Heparin Analogues Allergy Unknown UNKNOWN Verified 02/13/22 14:50 [Heparin Agents] verapamil Allergy Unknown unknown Verified 02/13/22 14:50 Review of Systems Review of Systems: Constitutional : No Weight loss, No Fever, No Chills, No Night Sweats, No Fatigue, No Malaise ENT/Mouth : No Hearing loss, No Ear Pain, No Nasal Congestion, No Sinus Pain, No Hoarseness, No sore throat, No Rhinorrhea, No Swallowing Difficulty Eyes: No Eye Pain, No Swelling, No Redness, No Foreign Body, No Discharge, No Vision Changes Cardiovascular : No Chest Pain, No SOB, No Dyspnea on Exertion, No Orthopnea, No Edema, No Palpitations Respiratory : No Cough, No Sputum, No Wheezing, No Smoke Exposure, No Dyspnea Gastrointestinal : No Nausea, No Vomiting, Complaining of diarrhea and diffuse abdominal cramping Genitourinary : no irregular bleeding, No Dysuria, No Urinary Frequency, No Hematuria, No Urinary Incontinence, No Urgency, No Flank Pain, No Urinary Flow Changes, No Hesitancy Musculoskeletal : No joint pain, No Myalgias, No Joint Swelling Skin : No Skin Lesions, No rash Neuro : No Weakness, No Numbness, No Paresthesias, No Loss of Consciousness, No Dizziness, No Headache Psych : No Anxiety/Panic, No Depression, No SI/HI/AH/VH, No Social Issues, Heme/Lymph: No Bruising, No Bleeding,No Lymphadenopathy Endocrine : No Polyuria, No Polydipsia, No Temperature Intolerance PMFSH Past Medical History Onset Date is defined in the Problem List Problems that require an onset date and time if occurred within 24 hrs of arrival to the ED Aortic Dissection and Rupture; Neurologic impairment; Cardiopulmonary Arrest; Endotracheal Intubation; Insertion or Replacement of Mechanical Circulatory Assist Device Medical History Patient on waiting list for kidney transplant Gout History of transcatheter aortic valve replacement (TAVR) History of blood transfusion GERD (gastroesophageal reflux disease) Anxiety and depression AV fistula Hemodialysis patient COVID-19 vaccine series completed Murmur Hyperkalemia Left inguinal hernia DJD (degenerative joint disease) of thoracic spine Neuropathy End-stage renal disease (ESRD) COPD (chronic obstructive pulmonary disease) Coronary artery disease Bronchitis Asthma Arthritis Anemia Cirrhosis Surgical History Hx of colonoscopy History of liver transplant History of surgery on arm Social History Social History Household Members: None Housing: House Are you a primary personal care worker to a significant other at home: No Do you presently have visiting nurse or other home services: No Unable to assess alcohol history related to: Unable to respond Alcohol intake: former Year quit: 2008 Comment: pt refused bed alarm Patient Tobacco Use Status: Never used Tobacco Smoked in Last 30 Days: No e-Cigarette/Vaping Use: Never Used Second Hand Smoke Exposure: No Use of substances other than those prescribed or required for medical reasons: No Advance Directives: Yes Advance Directives on File: Yes Advance Directives Date on File: 03/08/20 service: No Current occupational status: retired Physical Exam ED Vital Signs: Vital Signs - 24 hr 04/04/23 21:29 04/04/23 21:32 04/05/23 00:00 Pulse Rate 64 64 79 Respiratory Rate 18 18 14 Blood Pressure 172/66 H 172/66 H 188/93 H Pulse Oximetry 98 98 96 Oxygen Delivery Method Room Air Room Air Room Air 04/05/23 04:00 Pulse Rate 66 Respiratory Rate 12 Blood Pressure 148/64 H Pulse Oximetry 96 Oxygen Delivery Method Room Air BMI result Body Mass Index 23.8 Const Other: Appearance: Alert. Oriented X3. No acute distress. Eyes: Pupils equal, round and reactive to light. ENT: Pharynx normal. Neck: Normal inspection. Neck supple. No lymph nodes noted. No crepitus CVS: Normal heart rate and rhythm. Pulses normal. Normal S1 and S2 Respiratory: No respiratory distress. Breath sounds normal. No Wheezing. No rales Abdomen: Soft , diffuse abdominal discomfort with palpation in all quadrants,No rigidity. No distention. Skin: Skin warm and dry. Normal skin color. Normal skin turgor. Incision in right lower extremity healing well, no signs of cellulitis, no drainage Extremities: No lower extremity edema. No Lacerations. No Rash Neuro: Oriented X 3. No motor deficit. No sensory deficit. Moving all extremities. No slurred speech. CN 2 through 12 grossly intact Psych: calm, cooperative, normal affect Course Course Course Narrative: - patient has no signs of respiratory distress or fluid overload - all of patient's labs pending Medications Administered Generic Name Dose Route Start Last Admin Trade Name Freq PRN Reason Stop Dose Admin Famotidine 20 mg 04/05/23 04:45 04/05/23 05:02 Famotidine 20 Mg Tablet PO 20 mg BID STACI Administration Metoprolol Tartrate 25 mg 04/05/23 04:45 04/05/23 05:02 Metoprolol Tartrate 25 Mg Tablet PO 25 mg BID STACI Administration Protocol Discontinued Medications Generic Name Dose Route Start Last Admin Trade Name Freq PRN Reason Stop Dose Admin Dextrose 50 gm 04/04/23 22:38 04/04/23 23:20 Dextrose 50 % 25 Gm/50 Ml Syringe IVPUSH 04/04/23 22:39 50 gm ONCE ONE Administration Calcium Gluconate 2 gm in 100 mls @ 50 mls/hr 04/04/23 22:38 04/05/23 01:08 Calcium Gluconate IV 04/05/23 00:37 Infused ONCE ONE Infusion Insulin Human Regular 10 unit 04/04/23 22:38 04/04/23 23:21 Insulin Regular, Human 100 Unit/Ml 3 Ml Vial IVPUSH 04/04/23 22:39 10 unit ONCE ONE Administration Sodium Bicarbonate 50 meq 04/04/23 22:38 04/04/23 23:20 Sodium Bicarbonate 8.4% 50 Meq/50 Ml Syringe IVPUSH 04/04/23 22:39 50 meq ONCE ONE Administration Medical Decision Making Medical Decision Making [facility] Narrative: -my interpretation of labs: White blood cell count within normal limits, hematology and hematocrit and platelets at baseline. Patient's potassium 6.6. Patient was given IV calcium gluconate,, D50, insulin and sodium bicarbonate. -my interpretation of CT scan of the abdomen: No obvious acute abnormality, bilateral kidneys significantly decreased in size -overall, patient feels much better. -patient does not produce urine -patient is scheduled for dialysis in the morning -patient requesting more care at home. However, also patient requesting to be discharged home because she has dialysis in the morning and does not want to miss it since she missed the last time. Discussed with the patient that I will put a referral for case management and they will follow up with her at home Differential Diagnosis Differential Diagnoses: The differential diagnosis associated with the presentation includes (Hyperkalemia, gastroenteritis, gastritis) Admission/Observation Consideration of admission/observation: Escalation of care including admission/observation considered (Given patient's labs and symptoms, admission was considered) Lab Data MDM Lab Attestation statement: I reviewed the patient's lab results. 04/04/23 21:27 04/05/23 00:46 Labs: Lab Results 04/04/23 04/04/23 04/05/23 Range/Units 21:27 23:43 00:46 WBC 8.9 (4.8-10.8) X10*3/uL RBC 3.57 L (4.20-5.50) X10*6/uL Hgb 10.7 L (12.0-16.0) g/dl Hct 34.1 L D (37.0-47.0) % MCV 95.5 (80.0-98.0) fL MCH 30.0 (27.0-33.0) pg MCHC 31.4 (31.0-35.0) g/dl RDW 15.1 (11.0-16.0) % Plt Count 168 D (160-400) X10*3/uL MPV 11.3 (9.4-12.3) fL Absolute Nucleated RBC 0.000 (0.0-0.012) X10*3/uL Nucleated RBC % (auto) 0.0 (0.0-0.2) /100WBC Sodium 142 142 (135-145) mmol/L Potassium 6.6 H* 5.4 H (3.3-5.1) mmol/L Chloride 104 106 (96-108) mmol/L Carbon Dioxide 26 26 (22-29) mmol/L Anion Gap 18 15 (12-20) BUN 52 H 51 H (9-16) mg/dL Creatinine 7.78 H* 7.79 H* (0.5-1.4) mg/dL Estim Creat Clear Calc 6.4 6.4 Estimated GFR 5 5 POC Glucose (60-115) mg/dL Random Glucose 109 170 H (60-115) mg/dL Calcium 9.5 D 9.7 (8.4-10.2) mg/dL Magnesium 2.8 H (1.6-2.6) mg/dL Total Bilirubin 0.4 (0.0-1.0) mg/dL AST 13 (5-31) U/L ALT 5 (0-31) U/L Alkaline Phosphatase 105 (39-117) U/L Total Protein 6.4 L (6.5-8.0) g/dL Albumin 3.1 L (3.5-5.0) g/dL Lipase 47 (8-78) U/L COVID-19 (ELROY) Negative (Negative) COVID-19 Clin Com See Note Influenza Type A (MARICARMEN) Negative (Negative) Influenza Type B (MARICARMEN) Negative (Negative) Influenza A & B Note See Note 04/05/23 Range/Units 04:30 WBC (4.8-10.8) X10*3/uL RBC (4.20-5.50) X10*6/uL Hgb (12.0-16.0) g/dl Hct (37.0-47.0) % MCV (80.0-98.0) fL MCH (27.0-33.0) pg MCHC (31.0-35.0) g/dl RDW (11.0-16.0) % Plt Count (160-400) X10*3/uL MPV (9.4-12.3) fL Absolute Nucleated RBC (0.0-0.012) X10*3/uL Nucleated RBC % (auto) (0.0-0.2) /100WBC Sodium (135-145) mmol/L Potassium (3.3-5.1) mmol/L Chloride (96-108) mmol/L Carbon Dioxide (22-29) mmol/L Anion Gap (12-20) BUN (9-16) mg/dL Creatinine (0.5-1.4) mg/dL Estim Creat Clear Calc Estimated GFR POC Glucose 71 (60-115) mg/dL Random Glucose (60-115) mg/dL Calcium (8.4-10.2) mg/dL Magnesium (1.6-2.6) mg/dL Total Bilirubin (0.0-1.0) mg/dL AST (5-31) U/L ALT (0-31) U/L Alkaline Phosphatase (39-117) U/L Total Protein (6.5-8.0) g/dL Albumin (3.5-5.0) g/dL Lipase (8-78) U/L COVID-19 (ELROY) (Negative) COVID-19 Clin Com Influenza Type A (MARICARMEN) (Negative) Influenza Type B (MARICARMEN) (Negative) Influenza A & B Note Independent Interpretation I performed an independent interpretation of an: EKG (My interpretation of EKG: Sinus rhythm, heart rate 66, no ST segment depression elevation, no T-wave inversion, QTC 400, no peaked T-waves) and CT Scan Radiology Impression Discussion of test interpretation with radiology: I have reviewed the radiologist's reading. Radiologist Impression: FINDINGS: LUNG BASES: Scarring/interstitial coarsening at the lung bases. LIVER, GALLBLADDER, AND BILIARY TREE: The liver is normal in size, shape, and attenuation. No focal hepatic lesion or biliary ductal dilatation is present. There has been a prior cholecystectomy PANCREAS: Unremarkable. SPLEEN: Unremarkable. ADRENAL GLANDS: Unremarkable. KIDNEYS AND URETERS: The kidneys are atrophic. Scattered renal calculi. There is no hydronephrosis. BLADDER: Unremarkable. GASTROINTESTINAL TRACT: There are diverticula throughout the colon. There appears to be mild mid sigmoid colonic thickening. ABDOMINAL WALL: There is a right inguinal hernia containing a small portion of bowel without evidence for bowel obstruction. LYMPH NODES: Normal. VASCULAR: Atherosclerotic plaque of the abdominal aorta and proximal branches. PELVIC VISCERA: Unremarkable. OSSEOUS STRUCTURES: The bony structures are heterogeneous/osteopenic. There is mild loss of height of multiple lower thoracic and lumbar vertebral bodies. There has been a prior L5 vertebroplasty. CT/CT abdomen pelvis wo IV con IMPRESSION: There appears to be mild mid sigmoid colonic thickening of uncertain significance. Consider a mild diverticulitis or a chronic diverticular process. There are diverticula throughout the colon. There is a right inguinal hernia containing a small portion of bowel without evidence of bowel obstruction. Heterogeneous/osteopenic appearance of the bony structures with mild loss of height of multiple lower thoracic and lumbar vertebral bodies. Critical Care Time Critical Care Time Critical Care Time: Yes Total Critical Care Time: 60 Attestation: I have personally provided critical care time. Time includes review of lab data, radiology results, discussion with consultants, and monitoring for potential decompensation. Intervention performed as documented. Discharge Plan Discharge Clinical Impression: Acute hyperkalemia, Abdominal pain Patient Disposition: Home, Self-Care Instructions: Hyperkalemia (ED) Additional Instructions: Please follow-up with your primary care physician tomorrow. If you have any worsening or new symptoms, please return to the emergency room or call 911 Prescriptions: No Action venlafaxine 25 mg tablet 1 tab PO DAILY ropinirole 0.5 mg tablet 1 tab PO BEDTIME hydroxyzine HCl 25 mg tablet 1 tab PO TID PRN (Reason: Itching) cholecalciferol (vitamin D3) 50 mcg (2,000 unit) tablet 1 tab PO DAILY allopurinol 100 mg tablet 100 mg PO DAILY tacrolimus 1 mg capsule 1 mg PO BID oxycodone 5 mg tablet 1 tab PO BID PRN (Reason: pain) metoprolol tartrate 25 mg Tablet 25 mg PO BID Qty: 0 0RF Protocol: Hold for SBP/HR < HOLD for SBP < : 90 HOLD for HR < : 60 clonazepam 1 mg tablet 1 tab PO DAILY PRN (Reason: panic attack) midodrine 5 mg tablet 1 tab PO 3XW Rx Instructions: ON DIALYSIS DAYS famotidine 20 mg tablet 1 tab PO BID rosuvastatin 5 mg tablet 1 tab PO DAILY Lokelma 10 gram powder in packet 10 g PO .3xweek Qty: 11 0RF Rx Instructions: use loklema 3 times a week on non HD day. cyclobenzaprine 10 mg tablet 10 mg PO TID levothyroxine 88 mcg tablet 88 mcg PO DAILY aspirin 81 mg tablet,delayed release (DR/EC) 81 mg PO QAM
[2023-04-05] VITALS: BP 188/93; PULSE 79; RESP 14; O2SAT 96
[2023-04-05 04:00] VITALS: BP 148/64; PULSE 66; RESP 12; O2SAT 96
--- NOTE | 2023-04-05 04:56 | MHC.EDTECH ---
call out to emil at [phone] to book transport for pt to dialysis, estimated eta given is [id number]
--- NOTE | 2023-04-05 05:07 | PC.NURSE ---
Pt is to be transported directly to her dialysis center in [place]. I attempted to call the facility to infom them of the current situation but no one was able to answer. I left a message with [facility] phone number requesting a call back.
== END 2023-04-05 07:33 | disposition home or self-care (01) ==
PROVIDERS: Emergency Provider Emergency Medicine
DX: R10.9 Unspecified abdominal pain (principal); E87.5 Hyperkalemia; R94.31 Abnormal electrocardiogram [ECG] [EKG]; Z20.822 Contact with and (suspected) exposure to COVID-19; Z20.828 Contact with and (suspected) exposure to other viral communicable diseases; Z79.899 Other long term (current) drug therapy
CPT/HCPCS: 36415; 74176; 80048; 80053; 82947; 83690; 83735; 85027; 87502; 87635; 93005; 96365; 96366; 96375; 99285; J0613

== ENCOUNTER → 2023-04-04 21:38 | Outpatient (BNV) | payer OTHER, SELFPAY | PROVIDERS: Emergency Provider Emergency Medicine; Visit Provider Internal Medicine Cardiovascular Disease | DX: I44.0 Atrioventricular block, first degree (principal); R94.31 Abnormal electrocardiogram [ECG] [EKG] | CPT/HCPCS: 93010 ==

== ENCOUNTER 2023-04-16 13:18 | Emergency (ER) | payer OTHER, SELFPAY ==
--- NOTE | ~2023-04-16 | CT_ITS ---
Examination: CT brain and CT cervical spine without contrast. Clinical indications: Fall, hallucinations. COMPARISON: CT brain 03/07/2020. TECHNIQUE: 5 mm thin axial and reformatted 2 mm thin sagittal and coronal images of brain were obtained without contrast. DLP [id number]. FINDINGS: Brain: There is no acute intra-axial, extra-axial bleed, masses or midline shift. There is no acute infarction evolution. There is no edema. The ballard to white matter differentiation is maintained normal. There is prominent bifrontal subarachnoid space. The lateral ventricles are symmetrical in size and configuration without enlargement. Bone windows reveal no calvarial abnormality. There is no scalp soft tissue abnormality. Bilateral paranasal sinuses and mastoid air cells are well-aerated. Cervical spine: There is reversal of cervical lordosis. The vertebral heights is normal. There is grade 1 anterolisthesis C4 over C5 and C7 over T1.. Rest of the vertebral alignment is normal. Mild loss of C5-C6, C6-C7 and C7-T1 disc heights is noted. The craniovertebral junction and the C1-C2 alignment is normal. No visible acute fracture, dislocation or subluxation seen. There is moderate right C2-C3 bilateral C3-C4 facet joint arthropathy and hypertrophy. The prevertebral and paravertebral soft tissues are normal. The airways widely patent. Lung apices are clear. CT/CT cervical spine wo IV con IMPRESSION: 1. No acute intracranial process seen. 2. There is reversal of cervical lordosis with grade 1 anterolisthesis C4 over C5 and C7 over T1. There are degenerative disc changes C5-C6, C6-C7 and C7-T1 disc levels. No visible acute fracture, dislocation or subluxation seen.
--- NOTE | ~2023-04-16 | CT_ITS ---
Examination: CT brain and CT cervical spine without contrast. Clinical indications: Fall, hallucinations. COMPARISON: CT brain 03/07/2020. TECHNIQUE: 5 mm thin axial and reformatted 2 mm thin sagittal and coronal images of brain were obtained without contrast. DLP [id number]. FINDINGS: Brain: There is no acute intra-axial, extra-axial bleed, masses or midline shift. There is no acute infarction evolution. There is no edema. The ballard to white matter differentiation is maintained normal. There is prominent bifrontal subarachnoid space. The lateral ventricles are symmetrical in size and configuration without enlargement. Bone windows reveal no calvarial abnormality. There is no scalp soft tissue abnormality. Bilateral paranasal sinuses and mastoid air cells are well-aerated. Cervical spine: There is reversal of cervical lordosis. The vertebral heights is normal. There is grade 1 anterolisthesis C4 over C5 and C7 over T1.. Rest of the vertebral alignment is normal. Mild loss of C5-C6, C6-C7 and C7-T1 disc heights is noted. The craniovertebral junction and the C1-C2 alignment is normal. No visible acute fracture, dislocation or subluxation seen. There is moderate right C2-C3 bilateral C3-C4 facet joint arthropathy and hypertrophy. The prevertebral and paravertebral soft tissues are normal. The airways widely patent. Lung apices are clear. CT/CT head/brain wo IV con IMPRESSION: 1. No acute intracranial process seen. 2. There is reversal of cervical lordosis with grade 1 anterolisthesis C4 over C5 and C7 over T1. There are degenerative disc changes C5-C6, C6-C7 and C7-T1 disc levels. No visible acute fracture, dislocation or subluxation seen.
--- NOTE | ~2023-04-16 | XR_ITS ---
EXAMINATION: XR CHEST CLINICAL INFORMATION: Weakness. COMPARISON: Chest 01/13/2022 TECHNIQUE: Frontal view of the chest was obtained. FINDINGS: The lungs are well-expanded and clear of acute process. Heart size and pulmonary vascularity is normal. There is TAVR stent, posterior mid thoracic spinal electrode visualized. Heart size is borderline enlarged. Pulmonary vascularity is normal. No gross bony abnormality seen. XR/XR chest 1V IMPRESSION: No acute cardiopulmonary process seen. No change from 01/13/2022.
--- NOTE | 2023-04-16 13:38 | ECG_ITS ---
Test Reason : HALLUCINATIONS Blood Pressure : / mmHG Vent. Rate : 059 BPM Atrial Rate : 059 BPM P-R Int : 230 ms QRS Dur : 092 ms QT Int : 412 ms P-R-T Axes : 035 -32 094 degrees QTc Int : 407 ms Sinus bradycardia with 1st degree A-V block Left axis deviation Septal infarct (cited on or before 02-FEB-2021) T wave abnormality, consider lateral ischemia Abnormal ECG When compared with ECG of 04-APR-2023 21:58, No significant changes seen Referred By: Jessica Neal Electronically Signed By:NEY VIVEROS
[2023-04-16 13:43] VITALS: BP 167/63; BP 176/77; PULSE 58; PULSE 60; RESP 16; TEMP 36.7; O2SAT 96; O2SAT 99; BMI 24.9
--- NOTE | 2023-04-16 13:47 | ED_ITS ---
HPI - Altered Mental Status General Chief Complaint: General Medical Stated Complaint: HALLUCINATIONS X'S DAYS PER EMS Time Seen by Provider: 04/16/23 13:24 Source: patient, EMS and old records reviewed Mode of arrival: EMS Limitations: no limitations History of Present Illness HPI narrative: 72 yo female with PMH of ESRD on HD T TH S - missed yesterday, ETOH cirrhosis s/p liver transplant on tacrolimus, hypothyroidism, HTN, mood disorder, gout, COPD not on home O2, GERD, anemia, notes two days ago she fell cannot really tell me why but since then she has been seeing flying teacups, purple dots, and small children in her home. She denies fevers, n/v/d, pain, change in medications. She missed HD because of this. Apparently a clinic lead came today and called 911. complaint: other (visual hallucinations) Onset (ago): day(s) (2) Timing confirmed by: other (self) Severity: moderate Consistency of symptoms: waxing and waning Context: other (states it started after she fell and hit her head) Associated symptoms: loss of appetite and malaise Related Data Home Medications Medication Instructions Recorded Confirmed aspirin 81 mg tablet,delayed 81 mg PO QAM 01/26/20 04/05/23 release allopurinol 100 mg tablet 100 mg PO DAILY 03/08/20 04/05/23 tacrolimus 1 mg capsule, 1 mg PO BID 03/08/20 04/05/23 immediate-release cholecalciferol (vitamin D3) 50 1 tab PO DAILY 08/14/20 04/05/23 mcg (2,000 unit) tablet hydroxyzine HCl 25 mg tablet 1 tab PO TID PRN Itching 08/14/20 04/05/23 ropinirole 0.5 mg tablet 1 tab PO BEDTIME 08/14/20 04/05/23 venlafaxine 25 mg tablet 1 tab PO DAILY 08/14/20 04/05/23 oxycodone 5 mg tablet 1 tab PO BID PRN pain 02/01/21 04/05/23 clonazepam 1 mg tablet 1 tab PO DAILY PRN panic attack 01/14/22 04/05/23 famotidine 20 mg tablet 1 tab PO BID 01/14/22 04/05/23 midodrine 5 mg tablet 1 tab PO 3XW 01/14/22 04/05/23 rosuvastatin 5 mg tablet 1 tab PO DAILY 01/14/22 04/05/23 cyclobenzaprine 10 mg tablet 10 mg PO TID 01/20/23 04/05/23 levothyroxine 88 mcg tablet 88 mcg PO DAILY 01/20/23 04/05/23 Previous Rx's Medication Instructions Recorded metoprolol tartrate 25 mg tablet 25 mg PO BID #0 tabs 02/07/21 sodium zirconium cyclosilicate 10 10 g PO .3xweek hyperkalemia #11 01/17/22 gram oral powder packet (Lokelma) ea Allergies Allergy/AdvReac Type Severity Reaction Status Date / Time Sulfa (Sulfonamide Allergy Intermediate HIVES Verified 02/13/22 14:50 Antibiotics) Heparin Analogues Allergy Unknown UNKNOWN Verified 02/13/22 14:50 [Heparin Agents] verapamil Allergy Unknown unknown Verified 02/13/22 14:50 Review of Systems 2 Review of Systems: Constitutional : No Fever, No Chills, pos Fatigue, pos malaise ENT/Mouth : No sore throat, No Rhinorrhea Eyes: No Eye Pain, No Swelling, No Redness Cardiovascular : No Chest Pain, No SOB, No Dyspnea on Exertion Respiratory : No Cough, No Sputum Gastrointestinal : No Nausea, No Vomiting, No Diarrhea, No abdominal Pain Genitourinary : No Dysuria, No Urinary Frequency, No Hematuria, Musculoskeletal : No joint pain, No Myalgias, No Joint Swelling Skin : No Skin Lesions, No rash Neuro : No Weakness, No Numbness, No Dizziness, no Headache Psych : No Anxiety/Panic, No Depression, pos visual hallucinations All other systems reviewed and are negative PMFSH Past Medical History Attestation statement: The following information was validated with the patient. Source: old records reviewed Onset Date is defined in the Problem List Problems that require an onset date and time if occurred within 24 hrs of arrival to the ED Aortic Dissection and Rupture; Neurologic impairment; Cardiopulmonary Arrest; Endotracheal Intubation; Insertion or Replacement of Mechanical Circulatory Assist Device Medical History Patient on waiting list for kidney transplant Gout History of transcatheter aortic valve replacement (TAVR) History of blood transfusion GERD (gastroesophageal reflux disease) Anxiety and depression AV fistula Hemodialysis patient COVID-19 vaccine series completed Murmur Hyperkalemia Left inguinal hernia DJD (degenerative joint disease) of thoracic spine Neuropathy End-stage renal disease (ESRD) COPD (chronic obstructive pulmonary disease) Coronary artery disease Bronchitis Asthma Arthritis Anemia Cirrhosis Surgical History Hx of colonoscopy History of liver transplant History of surgery on arm Social History Social History Household Members: None Housing: House Are you a primary care transition coordinator to a significant other at home: No Do you presently have visiting nurse or other home services: No Unable to assess alcohol history related to: Unable to respond Alcohol intake: former Year quit: 2008 Comment: pt refused bed alarm Patient Tobacco Use Status: Never used Tobacco Smoked in Last 30 Days: No e-Cigarette/Vaping Use: Never Used Second Hand Smoke Exposure: No Use of substances other than those prescribed or required for medical reasons: No Advance Directives: Yes Advance Directives on File: Yes Advance Directives Date on File: 03/08/20 service: No Current occupational status: retired Physical Exam ED Vital Signs: Vital Signs - 24 hr 04/16/23 13:43 04/16/23 14:30 04/16/23 15:11 Temperature 98.0 F 98.3 F Pulse Rate 58 58 60 Respiratory Rate 16 15 18 Blood Pressure 167/63 H 142/61 H 164/58 H Pulse Oximetry 96 97 Oxygen Delivery Method Room Air Room Air BMI result Body Mass Index 24.9 Appearance: Alert. Oriented X3. No acute distress. she is oriented x 3 but then states she is seeing things Eyes: Pupils equal, round and reactive to light. ENT: Pharynx normal. atraumatic Neck: Normal inspection. Neck supple. CVS: Normal heart rate and rhythm. Pulses normal. Respiratory: No respiratory distress. Breath sounds normal. Abdomen: Soft and nontender. Skin: Skin warm and dry. pale skin color. Normal skin turgor. Extremities: No lower extremity edema. No calf ttp Neuro: Oriented X 3. No motor deficit. No sensory deficit. Course Course Course Narrative: signed out to Dr. Valle pending urine and reassessment Medications Administered Generic Name Dose Route Start Last Admin Trade Name Freq PRN Reason Stop Dose Admin Calcium Gluconate 2 gm in 100 mls @ 50 mls/hr 04/16/23 15:01 04/16/23 15:20 Calcium Gluconate IV 04/16/23 17:00 50 mls/hr ONCE ONE Administration Discontinued Medications Generic Name Dose Route Start Last Admin Trade Name Anais PRN Reason Stop Dose Admin Sodium Zirconium Cyclosilicate 5 gm 04/16/23 15:01 04/16/23 15:20 Sodium Zirconium Cyclosilicate 5 Gm Powd.Pack PO 04/16/23 15:02 5 gm ONCE ONE Administration Medical Decision Making Medical Decision Making [facility] Narrative: 72 yo female with PMH of ESRD on HD T TH S - missed yesterday, ETOH cirrhosis s/p liver transplant on tacrolimus, hypothyroidism, HTN, mood disorder, gout, COPD not on home O2, GERD, anemia here with new onset hallucinations in the setting of head trauma. It is not clear why she fell but does not report a LOC. She is very vague about it. She will need labs, EKG, CXR, UA, TSH, ETOH level, ammonia - CT head is ordered - possible metabolic and toxic etiology vs BUN from missed HD. Differential Diagnosis Differential Diagnoses: The differential diagnosis associated with the presentation includes lyte abnormality, encephalopathy, stroke, head trauma Admission/Observation Consideration of admission/observation: Escalation of care including admission/observation considered trop at baseline lower than usual, K only 5.5 no EKG changes given calcium and lokelma no ICH on CT head Lab Data [facility] Lab Attestation statement: I reviewed the patient's lab results. 04/16/23 14:14 04/16/23 14:14 Labs: Lab Results 04/16/23 04/16/23 Range/Units 14:14 14:18 WBC 8.2 (4.8-10.8) X10*3/uL RBC 3.64 L (4.20-5.50) X10*6/uL Hgb 11.2 L (12.0-16.0) g/dl Hct 35.0 L (37.0-47.0) % MCV 96.2 (80.0-98.0) fL MCH 30.8 (27.0-33.0) pg MCHC 32.0 (31.0-35.0) g/dl RDW 15.9 (11.0-16.0) % Plt Count 190 (160-400) X10*3/uL MPV 11.3 (9.4-12.3) fL Immature Gran % (Auto) 0.4 (0.0-0.4) % Neut % (Auto) 71.1 (45-73) % Lymph % (Auto) 17.2 L (20-40) % [place] % (Auto) 7.2 (2-11) % Eos % (Auto) 3.7 (0-4) % Baso % (Auto) 0.4 (0-2) % Lymph # (Auto) 1.4 (1.2-4.9) X10*3/uL [place] # (Auto) 0.6 (0.1-1.2) X10*3/uL Eos # (Auto) 0.3 (0.0-0.4) X10*3/uL Baso # (Auto) 0.0 (0.0-0.2) X10*3/uL Abs Immat Gran (auto) 0.03 (0.00-0.03) X10*3/uL Absolute Neuts (auto) 5.8 (2.0-8.3) x10*3/uL Absolute Nucleated RBC 0.000 (0.0-0.012) X10*3/uL Nucleated RBC % (auto) 0.0 (0.0-0.2) /100WBC PT 11.8 (11.1-13.3) SEC INR 1.0 (0.9-1.1) VBG pH 7.43 (7.32-7.43) VBG pCO2 41 mmHg VBG pO2 50 mmHg VBG HCO3 28 H (22-26) mmol/L VBG O2 Saturation 81.0 % VBG Base Excess 3.7 mmol/L Sodium 137 (135-145) mmol/L Potassium 5.5 H (3.3-5.1) mmol/L Chloride 101 (96-108) mmol/L Carbon Dioxide 27 (22-29) mmol/L Anion Gap 15 (12-20) BUN 36 H (9-16) mg/dL Creatinine 9.01 H* (0.5-1.4) mg/dL Estim Creat Clear Calc 5.4 Estimated GFR 4 Random Glucose 98 (60-115) mg/dL Calcium 9.1 D (8.4-10.2) mg/dL Magnesium 2.8 H (1.6-2.6) mg/dL Total Bilirubin 0.3 (0.0-1.0) mg/dL Direct Bilirubin 0.2 (0.0-0.5) mg/dL AST 13 (5-31) U/L ALT 7 (0-31) U/L Alkaline Phosphatase 100 (39-117) U/L Ammonia 31 (13-55) umol/L Total Creatine Kinase 37 (26-140) U/L Troponin I High Sens 26.0 H (<3.5-17.0) ng/L Total Protein 6.0 L (6.5-8.0) g/dL Albumin 3.0 L (3.5-5.0) g/dL Lipase 10 (8-78) U/L TSH 0.18 L (0.32-4.0) uIU/mL Free T4 0.93 (0.71-1.85) ng/dL COVID-19 ([facility]) Negative (Negative) COVID-19 Clin Com See Note Independent Interpretation I performed an independent interpretation of an: EKG, Plain X-Ray and CT Scan Interpretation: Rate: 59 Rhythm: sinus bradycardia with 1st degree AVB [place]: left Normal P waves. Normal [place]. Normal QRS complex. ST T wave : no MARIA E, inverted t wave aVL qTC: 407 prior studies: no change from prior The study has been interpreted contemporaneously by me. . Radiology Impression Discussion of test interpretation with radiology: I have reviewed the radiologist's reading. Independent Historian Clinical information obtained from an independent historian. History obtained from or confirmed by: EMS External Record Review External record reviewed: Inpatient record Discharge Plan Discharge Clinical Impression: Hallucinations, visual Patient Disposition: Still a Patient Prescriptions: No Action venlafaxine 25 mg tablet 1 tab PO DAILY ropinirole 0.5 mg tablet 1 tab PO BEDTIME hydroxyzine HCl 25 mg tablet 1 tab PO TID PRN (Reason: Itching) cholecalciferol (vitamin D3) 50 mcg (2,000 unit) tablet 1 tab PO DAILY allopurinol 100 mg tablet 100 mg PO DAILY tacrolimus 1 mg capsule 1 mg PO BID oxycodone 5 mg tablet 1 tab PO BID PRN (Reason: pain) metoprolol tartrate 25 mg Tablet 25 mg PO BID Qty: 0 0RF Protocol: Hold for SBP/HR < HOLD for SBP < : 90 HOLD for HR < : 60 clonazepam 1 mg tablet 1 tab PO DAILY PRN (Reason: panic attack) midodrine 5 mg tablet 1 tab PO 3XW Rx Instructions: ON DIALYSIS DAYS famotidine 20 mg tablet 1 tab PO BID rosuvastatin 5 mg tablet 1 tab PO DAILY Lokelma 10 gram powder in packet 10 g PO .3xweek Qty: 11 0RF Rx Instructions: use loklema 3 times a week on non HD day. cyclobenzaprine 10 mg tablet 10 mg PO TID levothyroxine 88 mcg tablet 88 mcg PO DAILY aspirin 81 mg tablet,delayed release (DR/EC) 81 mg PO QAM
[2023-04-16 14:20] LABS: MANUAL DIFF FLAG NO
[2023-04-16 14:20] LABS: Venous Blood Gas Refer to POC result
[2023-04-16 14:23] LABS: VBG Base Excess 3.7 mmol/L; VBG HCO3 28 mmol/L (22-26); VBG pCO2 41 mmHg; VBG pH 7.43 (7.32-7.43); VBG pO2 50 mmHg
[2023-04-16 14:27] LABS: Prothrombin Time 11.8 SEC (11.1-13.3)
[2023-04-16 14:29] LABS: Ammonia 31 umol/L (13-55); Basophils Percent Auto 0.4 % (0-2); Eosinophils Absolute Auto 0.3 X10*3/uL (0.0-0.4); Eosinophils Percent Auto 3.7 % (0-4); Hemoglobin 11.2 g/dl (12.0-16.0); Imm Gran Abs Auto 0.03 X10*3/uL (0.00-0.03); Imm Gran Pct Auto 0.4 % (0.0-0.4); Lymphocytes Absolute Auto 1.4 X10*3/uL (1.2-4.9); Lymphocytes Percent Auto 17.2 % (20-40); Mean Corpuscular Hemoglobin 30.8 pg (27.0-33.0); Mean Corpuscular Volume 96.2 fL (80.0-98.0); Mean Platelet Volume 11.3 fL (9.4-12.3); Monocytes Absolute Auto 0.6 X10*3/uL (0.1-1.2); Monocytes Percent Auto 7.2 % (2-11); Neutrophils Absolute Auto 5.8 x10*3/uL (2.0-8.3); Neutrophils Percent Auto 71.1 % (45-73); Platelet Count 190 X10*3/uL (160-400); Red Blood Count 3.64 X10*6/uL (4.20-5.50); Red Cell Distribution Width 15.9 % (11.0-16.0); White Blood Count 8.2 X10*3/uL (4.8-10.8)
[2023-04-16 14:30] VITALS: BP 142/61; PULSE 58; RESP 15; TEMP 36.8; O2SAT 97
[2023-04-16 14:39] LABS: Alanine Aminotransferase 7 U/L (0-31); Alkaline Phosphatase 100 U/L (39-117); Anion Gap 15 (12-20); Aspartate Amino Transferase 13 U/L (5-31); Bilirubin Direct 0.2 mg/dL (0.0-0.5); Bilirubin Total 0.3 mg/dL (0.0-1.0); Blood Urea Nitrogen 36 mg/dL (9-16); Calcium 9.1 mg/dL (8.4-10.2); Carbon Dioxide 27 mmol/L (22-29); Chloride 101 mmol/L (96-108); Creatinine Clr Calc Pharmacy 5.4; Estimated Glomerular Filt Rate 4; Glucose Random 98 mg/dL (60-115); Lipase 10 U/L (8-78); Magnesium 2.8 mg/dL (1.6-2.6); Potassium 5.5 mmol/L (3.3-5.1); Sodium 137 mmol/L (135-145)
[2023-04-16 14:46] LABS: COVID-19 Test Negative (Negative); IDNOW Serial# 152EDE1D
[2023-04-16 14:57] LABS: TSH reflex Free T4 0.18 uIU/mL (0.32-4.0)
[2023-04-16 15:11] VITALS: BP 164/58; PULSE 60; RESP 18
[2023-04-16] MEDS: Sodium Zirconium Cyclosilicate 5 GM POWD.PACK PO (15:20)
[2023-04-16] MEDS: Calcium Gluconate/NaCl,Iso-Osm 2 GM/100 ML PLAST..BAG IV (15:20)
[2023-04-16 15:35] LABS: Free T4 (Free Thyroxine) 0.93 ng/dL (0.71-1.85)
--- NOTE | 2023-04-16 16:26 | MHC.EDTECH ---
Pt given warm blanket and assisted with atg architect phone.
[2023-04-16 16:56] VITALS: BP 162/62; PULSE 59; RESP 14; TEMP 36.8; O2SAT 96
--- NOTE | 2023-04-16 17:00 | MHC.EDTECH ---
Pt given diet yin keny per RN Gianluca, pt repositioned and given pillow
[2023-04-16 18:13] VITALS: BP 181/55; PULSE 60; RESP 16; TEMP 36.8; O2SAT 96
--- NOTE | 2023-04-16 18:19 | PC.NURSE ---
Assumed care of patient who states that she missed her dialysis appointment yesterday. She has a fistula in her left arm and an IV in her right arm.
[2023-04-16 19:51] VITALS: BP 181/78; PULSE 62; RESP 14; TEMP 36.8; O2SAT 97
== END 2023-04-16 20:57 | disposition home or self-care (01) ==
PROVIDERS: Emergency Medicine; Emergency Provider Internal Medicine; PCP Internal Medicine
DX: R44.1 Visual hallucinations (principal); Z11.52 Encounter for screening for COVID-19; I48.0 Paroxysmal atrial fibrillation; Z79.82 Long term (current) use of aspirin
CPT/HCPCS: 36415; 70450; 71045; 72125; 80048; 80076; 82140; 82550; 82803; 83690; 83735; 84439; 84443; 84484; 85025; 85610; 87635; 93005; 96365; 96366; 99285; J0613

== ENCOUNTER → 2023-04-16 13:38 | Outpatient (BNV) | payer OTHER, SELFPAY | PROVIDERS: Emergency Provider Internal Medicine; PCP Internal Medicine; Visit Provider Internal Medicine | DX: R00.1 Bradycardia, unspecified (principal); I44.0 Atrioventricular block, first degree | CPT/HCPCS: 93010 ==

== ENCOUNTER 2023-06-09 15:59 | Inpatient (IN) | payer OTHER, SELFPAY ==
--- NOTE | ~2023-06-09 | CT_ITS ---
EXAMINATION: CT ABDOMEN AND PELVIS WITHOUT CONTRAST CLINICAL INFORMATION: Diffuse lower abdominal pain. Tenderness to palpation. Nausea. COMPARISON: 04/05/2023 TECHNIQUE: Multidetector volumetric imaging was performed from the superior aspect of the liver through the pubic symphysis. Sagittal and coronal reformatted images were obtained on the technologist's workstation. This CT examination was performed using dose optimization techniques as appropriate, variously including the following: *Automated exposure control *Adjustment of mA and/or kV according to patient size (this includes techniques or standardized protocols for targeted exams where dose is matched to indication/reason for exam; i.e. extremities or head) *Use of iterative reconstruction technique DLP: 420 mGy-cm FINDINGS: LUNG BASES: Status post TAVR. Left heart enlargement. No parenchymal scarring is present at the lung bases. LIVER, GALLBLADDER, AND BILIARY TREE: Numerous surgical clips are present around the hepatic hilum, possibly the result of a prior transplant. Liver is normal in size and contour. No focal lesions or appreciable biliary ductal dilatation. The gallbladder appears surgically absent, though there is a dilated structure contiguous with the gallbladder situated within the gallbladder fossa, potentially corresponding to a distended cystic duct remnant. PANCREAS: Mild atrophy. No focal abnormalities. SPLEEN: Unremarkable. ADRENAL GLANDS: Unremarkable. KIDNEYS AND URETERS: [place] kidneys are atrophic, unchanged. Enthesopathic calcifications are present within the renal sinuses bilaterally. No nephrolithiasis or hydronephrosis. No hydroureter. BLADDER: Decompressed GASTROINTESTINAL TRACT: There is a long segment of circumferential wall thickening in the sigmoid colon with surrounding fat stranding and marked diverticulosis, most concerning for acute diverticulitis. Focal colitis is also possible, though less likely. No appreciable perforation. No surrounding abscess, though there is a trace amount of adjacent free fluid. Moderate volume of stool is present throughout the colon. A short segment of ileum extends into the right inguinal hernia without evidence of obstruction or strangulation. ABDOMINAL WALL: As noted above, there is a small bowel containing right inguinal hernia which is relatively short segment. No strangulation or obstruction. LYMPH NODES: No adenopathy. VASCULAR: Calcific atherosclerosis is present in the abdominal aorta and iliac arteries. There is a tortuous portosystemic collaterals on the left periaortic region in the midabdomen. PELVIC VISCERA: Unremarkable. OSSEOUS STRUCTURES: Bones are osteopenic. Superior endplate compression fractures at T9, T10, T11, T12, L1, L3, and L5 appear unchanged. Prior L5 vertebroplasty is noted. There is multilevel degenerative spondylosis. Osteoarthritis is evident in the hips and SI joints. No aggressive osseous lesions. CT/CT abdomen pelvis wo IV con IMPRESSION: 1. Circumferential inflammation in the sigmoid colon, favored to correspond to acute diverticulitis. Is more pronounced as compared to prior. No evidence of perforation or abscess. 2. Small bowel containing right inguinal hernia without evidence of obstruction or strangulation.
--- NOTE | 2023-06-09 16:08 | ED_ITS ---
HPI - Abdominal Pain General Chief Complaint: Abdominal Pain Stated Complaint: abd psin,past liver transplant, waiting for kidney Time Seen by Provider: 06/09/23 16:05 Source: patient Mode of arrival: EMS Limitations: no limitations History of Present Illness HPI narrative: Patient is a 72-year-old female who presents emergency department for evaluation via EMS. She expresses mid abdominal pain that radiates to the bilateral sides and into her back with onset yesterday evening. Associated nausea but denies any vomiting. Reports history of chronic constipation, endorses last bowel movement to be approximately 1 week ago. Admits to making very minimal urine output due to her end-stage renal disease, when asked whether she has noted any hematuria she does admit that she has noticed streaks of bright red blood in the toilet, uncertain whether it is when she is urinating or from her rectum. Denies associated fevers or chills. Denies history of chronic abdominal pain. Reports past history of liver transplant approximately 15 years ago, has history of diverticulitis. Related Data Home Medications Medication Instructions Recorded Confirmed aspirin 81 mg tablet,delayed 81 mg PO QAM 01/26/20 06/09/23 release allopurinol 100 mg tablet 100 mg PO DAILY 03/08/20 06/09/23 tacrolimus 1 mg capsule, 1 mg PO BID 03/08/20 06/09/23 immediate-release cholecalciferol (vitamin D3) 50 1 tab PO DAILY 08/14/20 06/09/23 mcg (2,000 unit) tablet hydroxyzine HCl 25 mg tablet 1 tab PO TID PRN Itching 08/14/20 06/09/23 ropinirole 0.5 mg tablet 1 tab PO BEDTIME 08/14/20 06/09/23 venlafaxine 25 mg tablet 1 tab PO DAILY 08/14/20 06/09/23 oxycodone 5 mg tablet 1 tab PO BID PRN Moderate Pain 02/01/21 06/09/23 (Scale Score 5-6) clonazepam 1 mg tablet 1 tab PO TUTHSA@0900 PRN anxiety 01/14/22 06/09/23 famotidine 20 mg tablet 1 tab PO BID 01/14/22 06/09/23 midodrine 5 mg tablet 1 tab PO TUTHSA PRN Hypotension 01/14/22 06/09/23 rosuvastatin 5 mg tablet 1 tab PO DAILY 01/14/22 06/09/23 levothyroxine 88 mcg tablet 88 mcg PO DAILY 01/20/23 06/09/23 albuterol sulfate 90 mcg/actuation 1 puff inhalation Q6H PRN wheezing 06/09/23 06/09/23 aerosol inhaler (Ventolin HFA) calcium citrate 200 mg (950 mg) 400 mg PO BID 06/09/23 06/09/23 tablet camphor 4 %-methyl salicylate 30 1 appl topical BEDTIME PRN Muscle 06/09/23 06/09/23 %-menthol 10 % topical cream Pain (Bengay Ultra Strength) sevelamer carbonate 800 mg tablet 800 mg PO TID 06/09/23 06/09/23 Previous Rx's Medication Instructions Recorded metoprolol tartrate 25 mg tablet 25 mg PO BID #0 tabs 02/07/21 Allergies Allergy/AdvReac Type Severity Reaction Status Date / Time Sulfa (Sulfonamide Allergy Intermediate HIVES Verified 06/09/23 16:25 Antibiotics) Heparin Analogues Allergy Unknown UNKNOWN Verified 06/09/23 16:25 [Heparin Agents] verapamil Allergy Unknown unknown Verified 06/09/23 16:25 Review of Systems Review of Systems Yes all other systems are reviewed and are negative PMFSH Past Medical History Attestation statement: The following information was validated with the patient. Source: old records reviewed Medical History Patient on waiting list for kidney transplant Gout History of transcatheter aortic valve replacement (TAVR) History of blood transfusion GERD (gastroesophageal reflux disease) Anxiety and depression AV fistula Hemodialysis patient COVID-19 vaccine series completed Murmur Hyperkalemia Left inguinal hernia DJD (degenerative joint disease) of thoracic spine Neuropathy End-stage renal disease (ESRD) COPD (chronic obstructive pulmonary disease) Coronary artery disease Bronchitis Asthma Arthritis Anemia Cirrhosis Surgical History Hx of colonoscopy History of liver transplant History of surgery on arm Social History Social History Household Members: None Housing: Apartment Are you a primary after school caregiver to a significant other at home: No Do you presently have visiting nurse or other home services: No Unable to assess alcohol history related to: Unable to respond Alcohol intake: former Year quit: 2008 Comment: pt refused bed alarm Patient Tobacco Use Status: Former Tobacco user Quit Date: 40 years ago Tobacco use type: Cigarette Cigarette Packs Per Day: 2 Cigarettes Per Day: 40.0 Years Smoked: 25 e-Cigarette/Vaping Use: Never Used Second Hand Smoke Exposure: No Advance Directives Date on File: 03/08/20 service: No Current occupational status: retired Physical Exam ED Vital Signs: Vital Signs - 24 hr 06/09/23 16:12 06/09/23 18:11 06/09/23 19:45 Temperature 98.5 F 98.6 F 98.4 F Pulse Rate 61 59 66 Respiratory Rate 18 16 16 Blood Pressure 160/70 H 120/51 L 114/54 L Pulse Oximetry 99 98 95 Oxygen Delivery Method Room Air Room Air Room Air BMI result Body Mass Index 24.0 Appearance: Alert.?Oriented to person, place and time. No acute distress.?Normal affect. Eyes: Pupils equal, round and reactive to light.? ENT: Pharynx normal.?? Neck: Normal inspection.? Neck supple.?? CVS: Heart sounds normal. Normal heart rate and rhythm.? Pulses normal.?? Respiratory: No respiratory distress.? Lung sounds clear to auscultation bilaterally?? Abdomen: Soft with guarding, exquisite left and right lower quadrant tenderness upon palpation, upper ABD mildly tender upon palpation. Hypo active bowel sounds. No pulsatile mass.??Horizontal surgical scar transabdominally Skin: Skin warm and dry.? Normal skin color.? Extremities: No lower extremity edema.? Neuro: Moves all extremities spontaneously. Sensation intact bilaterally. CN II- XII intact. No focal neuro deficits. Ambulates with normal steady gait. Course Reevaluation(s) Reevaluation #1: CBC reveals a mild leukocytosis of 11.2 with left shift, mild normocytic anemia H&H 11.4/36.8. Occult stool is positive. EKG reveals some acute changes when compared to prior in March 2023 including T-wave inversion in lead V2, biphasic T-waves in aVF, V3, V4, troponin 21.4 which is consistent with prior levels, suspect this is less likely secondary to ACS, however will obtain delta troponin. Hyperkalemic at 5.9, renal function consistent with baseline, hypocalcemia 7.5, patient receive calcium gluconate 2 g, D50 IV, insulin regular IV, sodium bicarb. Reevaluation #2: CT of the abdomen and pelvis reveals acute diverticulitis without evidence of perforation or abscess, right inguinal hernia without obstruction or strangulation. Pain is persistent despite morphine, feels not well enough to go home due to nausea and vomiting. IV Zosyn ordered. Spoke with hospitalist, Dr. Vasquez accepts patient for admission to medicine service Time: 20:50 Medical Decision Making Medical Decision Making MDM Narrative: Patient is a 72-year-old female with past medical history of arthritis, anemia, ETOH cirrhosis s/p liver transplant on tacrolimus, CAD, COPD, DJD of the thoracic spine, left inguinal hernia with repair, ESRD (with AV fistula to the left dialysis Friday, , Friday), GERD, TAVR, gout, presenting to emergency department for evaluation of abdominal pain and nausea as per HPI. On examination has exquisite tenderness diffusely across the lower abdomen and noted to be guarding, upper abdomen is tender as well but not as significant, no CVA tenderness. Will obtain CBC to evaluate for leukocytosis/ anemia, CMP and lipase to evaluate for abnormal electrolytes /abnormal renal function/ abnormal hepatic/biliary function, EKG and troponin to evaluate for ischemia/ACS. CT abdomen and pelvis and Urinalysis. Patient will receive Zofran IV and morphine IV Differential Diagnosis Differential Diagnoses: The differential diagnosis associated with the presentation includes (Diverticulitis, colitis, obstruction, appendicitis, hydronephrosis, cholecystitis, pancreatitis, GIB, UTI) Admission/Observation Consideration of admission/observation: Escalation of care including admission/observation considered (See narrative above and course narrative for further detail) Lab Data [facility] Lab Attestation statement: I reviewed the patient's lab results. (See course narrative) 06/09/23 16:47 06/09/23 16:47 Labs: Lab Results 06/09/23 06/09/23 06/09/23 Range/Units 16:47 16:48 16:51 WBC 11.2 H (4.8-10.8) X10*3/uL RBC 3.88 L (4.20-5.50) X10*6/uL Hgb 11.4 L (12.0-16.0) g/dl Hct 36.8 L (37.0-47.0) % MCV 94.8 (80.0-98.0) fL MCH 29.4 (27.0-33.0) pg MCHC 31.0 (31.0-35.0) g/dl RDW 15.9 (11.0-16.0) % Plt Count 200 (160-400) X10*3/uL MPV 10.9 (9.4-12.3) fL Immature Gran % (Auto) 0.4 (0.0-0.4) % Neut % (Auto) 78.2 H (45-73) % Lymph % (Auto) 12.6 L (20-40) % King[place]isher % (Auto) 7.6 (2-11) % Eos % (Auto) 0.8 (0-4) % Baso % (Auto) 0.4 (0-2) % Lymph # (Auto) 1.4 (1.2-4.9) X10*3/uL [place] # (Auto) 0.9 (0.1-1.2) X10*3/uL Eos # (Auto) 0.1 (0.0-0.4) X10*3/uL Baso # (Auto) 0.0 (0.0-0.2) X10*3/uL Abs Immat Gran (auto) 0.05 H (0.00-0.03) X10*3/uL Absolute Neuts (auto) 8.8 H (2.0-8.3) x10*3/uL Absolute Nucleated RBC 0.000 (0.0-0.012) X10*3/uL Nucleated RBC % (auto) 0.0 (0.0-0.2) /100WBC ESR 44 H (0-20) MM/HR PT 11.3 (11.1-13.3) SEC INR 0.9 (0.9-1.1) Sodium 138 (135-145) mmol/L Potassium 5.9 H (3.3-5.1) mmol/L Chloride 100 (96-108) mmol/L Carbon Dioxide 29 (22-29) mmol/L Anion Gap 15 (12-20) BUN 36 H (9-16) mg/dL Creatinine 6.42 H* (0.5-1.4) mg/dL Estim Creat Clear Calc 8.1 Estimated GFR 6 POC Glucose (60-115) mg/dL Random Glucose 91 (60-115) mg/dL Calcium 7.5 L D (8.4-10.2) mg/dL Magnesium 2.6 (1.6-2.6) mg/dL Total Bilirubin 0.4 (0.0-1.0) mg/dL AST 17 (5-31) U/L ALT 9 (0-31) U/L Alkaline Phosphatase 99 (39-117) U/L Troponin I High Sens 21.4 H (<3.5-17.0) ng/L C-Reactive Protein 4.14 H (< or = 0.50) mg/dL B-Natriuretic Peptide 2149 H (<100) pg/mL Total Protein 7.0 (6.5-8.0) g/dL Albumin 3.3 L (3.5-5.0) g/dL Lipase 21 (8-78) U/L Stool Occult Blood POSITIVE (NEGATIVE) Blood Type B Positive Antibody Screen NEGATIVE Crossmatch (AHG) See Detail 06/09/23 06/09/23 Range/Units 19:48 20:30 WBC (4.8-10.8) X10*3/uL RBC (4.20-5.50) X10*6/uL Hgb (12.0-16.0) g/dl Hct (37.0-47.0) % MCV (80.0-98.0) fL MCH (27.0-33.0) pg MCHC (31.0-35.0) g/dl RDW (11.0-16.0) % Plt Count (160-400) X10*3/uL MPV (9.4-12.3) fL Immature Gran % (Auto) (0.0-0.4) % Neut % (Auto) (45-73) % Lymph % (Auto) (20-40) % Kingfisher % (Auto) (2-11) % Eos % (Auto) (0-4) % Baso % (Auto) (0-2) % Lymph # (Auto) (1.2-4.9) X10*3/uL [place]isher # (Auto) (0.1-1.2) X10*3/uL Eos # (Auto) (0.0-0.4) X10*3/uL Baso # (Auto) (0.0-0.2) X10*3/uL Abs Immat Gran (auto) (0.00-0.03) X10*3/uL Absolute Neuts (auto) (2.0-8.3) x10*3/uL Absolute Nucleated RBC (0.0-0.012) X10*3/uL Nucleated RBC % (auto) (0.0-0.2) /100WBC ESR (0-20) MM/HR PT (11.1-13.3) SEC INR (0.9-1.1) Sodium (135-145) mmol/L Potassium (3.3-5.1) mmol/L Chloride (96-108) mmol/L Carbon Dioxide (22-29) mmol/L Anion Gap (12-20) BUN (9-16) mg/dL Creatinine (0.5-1.4) mg/dL Estim Creat Clear Calc Estimated GFR POC Glucose 49 L* 164 H (60-115) mg/dL Random Glucose (60-115) mg/dL Calcium (8.4-10.2) mg/dL Magnesium (1.6-2.6) mg/dL Total Bilirubin (0.0-1.0) mg/dL AST (5-31) U/L ALT (0-31) U/L Alkaline Phosphatase (39-117) U/L Troponin I High Sens (<3.5-17.0) ng/L C-Reactive Protein (< or = 0.50) mg/dL B-Natriuretic Peptide (<100) pg/mL Total Protein (6.5-8.0) g/dL Albumin (3.5-5.0) g/dL Lipase (8-78) U/L Stool Occult Blood (NEGATIVE) Blood Type Antibody Screen Crossmatch (AHG) Independent Interpretation I performed an independent interpretation of an: EKG Interpretation: Rate: 57 Rhythm:?Sinus rhythm first-degree AV block (seen prior) Normal P waves.? Prolonged MAITE; 224ms.?? Normal QRS complex.?? ST T wave :??No ST elevation, no ST depression. T-wave inversion in V2, biphasic T-waves in aVF, V3, V4 which is new when compared to prior EKG in March 2023 (prior biphasic T-wave III, aVL. V5, V6) qTC:478 prior studies:?Jamuary 2023 The study has been interpreted contemporaneously by me. Radiology Impression Discussion of test interpretation with radiology: I have reviewed the radiologist's reading. Radiologist Impression: CT/CT abdomen pelvis wo IV con IMPRESSION: 1. Circumferential inflammation in the sigmoid colon, favored to correspond to acute diverticulitis. Is more pronounced as compared to prior. No evidence of perforation or abscess. 2. Small bowel containing right inguinal hernia without evidence of obstruction or strangulation. Independent Historian Clinical information obtained from an independent historian. History obtained from or confirmed by: EMS External Record Review External record reviewed: Inpatient record and Outpatient record Medications Administered Generic Name Dose Route Start Last Admin Trade Name Freq PRN Reason Stop Dose Admin Hydromorphone HCl 1 mg 06/09/23 21:25 06/10/23 00:12 Hydromorphone Hcl 1 Mg/Ml Syringe IVPUSH 1 mg Q4H PRN Administration Pain, Severe (Pain Scale 7-10) Protocol Piperacillin Sod/Tazobactam 100 mls @ 200 mls/hr 06/09/23 22:00 06/09/23 22:59 Sod 4.5 gm/ Sodium Chloride IV Infused Q12H STACI Infusion Ondansetron HCl 4 mg 06/09/23 21:12 06/10/23 00:13 Ondansetron Hcl 4 Mg/2 Ml Vial IVPUSH 4 mg Q8H PRN Administration Nausea and Vomiting Sodium Chloride 3 ml 06/10/23 00:00 06/10/23 00:26 0.9 % Sodium Chloride Flush 3 Ml Syringe IVFLUSH Not Given QSHIFT STACI Trolamine Salicylate 1 appl 06/09/23 22:00 06/09/23 22:20 Trolamine Salicylate 10 % Cream 141 Gm Tube TOPICAL 1 appl BEDTIME PRN Administration Muscle Pain Discontinued Medications Generic Name Dose Route Start Last Admin Trade Name Freq PRN Reason Stop Dose Admin Dextrose 25 gm 06/09/23 17:48 06/09/23 18:17 Dextrose 50 % 25 Gm/50 Ml Syringe IVPUSH 06/09/23 17:49 25 gm ONCE ONE Administration Dextrose 25 gm 06/09/23 19:52 06/09/23 19:59 Dextrose 50 % 25 Gm/50 Ml Syringe IVPUSH 06/09/23 19:53 25 gm ONCE ONE Administration Calcium Gluconate 2 gm in 100 mls @ 400 mls/hr 06/09/23 17:48 06/09/23 19:15 Calcium Gluconate IV 06/09/23 18:02 Infused ONCE ONE Infusion Insulin Human Regular 5 unit 06/09/23 17:48 06/09/23 18:18 Insulin Regular, Human 100 Unit/Ml 3 Ml Vial IVPUSH 06/09/23 17:49 5 unit ONCE ONE Administration Morphine Sulfate 4 mg 06/09/23 16:21 06/09/23 17:04 Morphine Sulfate 4 Mg/Ml Cartridge IVPUSH 06/09/23 16:22 4 mg ONCE ONE Administration Protocol Morphine Sulfate 4 mg 06/09/23 20:28 06/09/23 20:46 Morphine Sulfate 4 Mg/Ml Cartridge IVPUSH 06/09/23 20:29 4 mg ONCE ONE Administration Protocol Ondansetron HCl 4 mg 06/09/23 16:21 06/09/23 17:04 Ondansetron Hcl 4 Mg/2 Ml Vial IVPUSH 06/09/23 16:22 4 mg ONCE ONE Administration Sodium Zirconium Cyclosilicate 10 gm 06/09/23 17:48 06/09/23 18:18 Sodium Zirconium Cyclosilicate 10 Gm Powd.Pack PO 06/09/23 17:49 10 gm ONCE ONE Administration Critical Care Time Critical Care Time Critical Care Time: Yes Total Critical Care Time: 60 Attestation: I personally attest to this critical care time spent taking care of the patient exclusive of all other billable procedures was approximately 60 minutes including initial evaluation of patient, ordering tests, CT interpretation, EKG interpretation, medical consultation, documentation, re-evaluation. Discharge Plan Discharge Clinical Impression: Acute diverticulitis of intestine Patient Disposition: Admitted As Inpatient Interventions: Admission Worksheet (ED) Last Done: 06/09/23 22:52 Discharge Date/Time: 06/09/23 23:49
[2023-06-09 16:12] VITALS: BP 125/64; BP 160/70; PULSE 61; PULSE 64; RESP 18; TEMP 36.9; O2SAT 100; O2SAT 99; BMI 24.0
--- NOTE | 2023-06-09 16:21 | ECG_ITS ---
Test Reason : ABD PAIN Blood Pressure : / mmHG Vent. Rate : 057 BPM Atrial Rate : 057 BPM P-R Int : 224 ms QRS Dur : 090 ms QT Int : 492 ms P-R-T Axes : -14 087 -06 degrees QTc Int : 478 ms Sinus bradycardia with 1st degree A-V block Septal infarct (cited on or before 02-FEB-2021) T wave abnormality, consider inferior ischemia T wave abnormality, consider anterior ischemia Abnormal ECG When compared with ECG of 16-APR-2023 13:45, Significant changes have occurred Referred By: Tammy Bustos Electronically Signed By:JACKIE KING MD
[2023-06-09 16:59] LABS: MANUAL DIFF FLAG NO
[2023-06-09 17:02] LABS: Basophils Percent Auto 0.4 % (0-2); Eosinophils Absolute Auto 0.1 X10*3/uL (0.0-0.4); Eosinophils Percent Auto 0.8 % (0-4); Hematocrit 36.8 % (37.0-47.0); Hemoglobin 11.4 g/dl (12.0-16.0); Imm Gran Abs Auto 0.05 X10*3/uL (0.00-0.03); Imm Gran Pct Auto 0.4 % (0.0-0.4); Lymphocytes Absolute Auto 1.4 X10*3/uL (1.2-4.9); Lymphocytes Percent Auto 12.6 % (20-40); Mean Corpuscular Hemoglobin 29.4 pg (27.0-33.0); Mean Corpuscular Volume 94.8 fL (80.0-98.0); Mean Platelet Volume 10.9 fL (9.4-12.3); Monocytes Absolute Auto 0.9 X10*3/uL (0.1-1.2); Monocytes Percent Auto 7.6 % (2-11); Neutrophils Absolute Auto 8.8 x10*3/uL (2.0-8.3); Neutrophils Percent Auto 78.2 % (45-73); Platelet Count 200 X10*3/uL (160-400); Red Blood Count 3.88 X10*6/uL (4.20-5.50); Red Cell Distribution Width 15.9 % (11.0-16.0); White Blood Count 11.2 X10*3/uL (4.8-10.8)
[2023-06-09] MEDS: Morphine Sulfate 4 MG/ML CARTRIDGE IVPUSH ×2 (17:04→20:46)
[2023-06-09] MEDS: ondansetron HCL 4 MG/2 ML VIAL IVPUSH (17:04)
[2023-06-09 17:13] LABS: INTERNATIONAL NORM RATIO 0.9 (0.9-1.1); Prothrombin Time 11.3 SEC (11.1-13.3)
[2023-06-09 17:14] LABS: OBS Int Ctl Valid YES; OBS1 POSITIVE (NEGATIVE)
[2023-06-09 17:35] LABS: Alanine Aminotransferase 9 U/L (0-31); Albumin Level 3.3 g/dL (3.5-5.0); Alkaline Phosphatase 99 U/L (39-117); Anion Gap 15 (12-20); Aspartate Amino Transferase 17 U/L (5-31); Bilirubin Total 0.4 mg/dL (0.0-1.0); Blood Urea Nitrogen 36 mg/dL (9-16); C Reactive Protein 4.14 mg/dL (< or = 0.50); Calcium 7.5 mg/dL (8.4-10.2); Carbon Dioxide 29 mmol/L (22-29); Chloride 100 mmol/L (96-108); Creatinine Clr Calc Pharmacy 8.1; Estimated Glomerular Filt Rate 6; Glucose Random 91 mg/dL (60-115); Lipase 21 U/L (8-78); Magnesium 2.6 mg/dL (1.6-2.6); Potassium 5.9 mmol/L (3.3-5.1); Sodium 138 mmol/L (135-145)
[2023-06-09 17:38] LABS: Troponin-I High Sensitivity 21.4 ng/L (<3.5-17.0)
[2023-06-09 17:39] LABS: B Type Natriuretic Peptide 2149 pg/mL (<100)
--- NOTE | 2023-06-09 17:55 | PC.NURSE ---
[facility], SISTER [phone].
[2023-06-09 18:03] LABS: Erythrocyte Sedimentation Rate 44 MM/HR (0-20)
[2023-06-09 18:11] VITALS: BP 120/51; PULSE 59; RESP 16; TEMP 37; O2SAT 98
[2023-06-09] MEDS: Calcium Gluconate/NaCl,Iso-Osm 2 GM/100 ML PLAST..BAG IV (18:17)
[2023-06-09] MEDS: Dextrose 50 % 25 GM/50 ML SYRINGE IVPUSH ×2 (18:17→19:59)
[2023-06-09] MEDS: Sodium Zirconium Cyclosilicate 10 GM POWD.PACK PO (18:18)
[2023-06-09] MEDS: Insulin Regular, Human 100 UNIT/ML 3 ML VIAL IVPUSH (18:18)
[2023-06-09 19:45] VITALS: BP 114/54; PULSE 66; RESP 16; TEMP 36.9; O2SAT 95
[2023-06-09 19:54] LABS: Glucose, Whole Blood 49 mg/dL (60-115)
--- NOTE | 2023-06-09 19:54 | MHC.EDTECH ---
Pt given cranberry juice and ice cream at there request due to low sugar
--- NOTE | 2023-06-09 19:59 | PC.NURSE ---
Patient's POC found to be 49, provider made aware, additional amp ordered and given.
[2023-06-09 20:34] LABS: Glucose, Whole Blood 164 mg/dL (60-115)
--- NOTE | 2023-06-09 21:15 | PM.IMHP ---
History of Present Illness Date of Service: 06/09/23 Chief Complaint: Abdominal Pain This is a 72-year-old female with pertinent history of ESRD on hemodialysis (T/T/S), alcoholic cirrhosis status post liver transplant, hypothyroidism, essential hypertension, mood disorder, gout, s/p TAVR, who presents to the emergency department for evaluation of abdominal discomfort. Patient states she started having left-sided abdominal pain 1 day prior to presentation. It has been constant, nonradiating and progressive over the last 24 hours and without any relieving factors. It is associated with multiple episodes of nausea and nonbloody emesis. Has associated chills but no fever. Patient states she had an episode of diverticulitis about 50 years ago. Patient also states that over the last 1 week she has noticed intermittent minimal scant blood when wiping after stools. No fever, chest discomfort, palpitations, shortness of breath, changes in urinary habits. In the emergency department, imaging with uncomplicated diverticulitis. Patient with intractable abdominal discomfort despite 2 doses of IV morphine. Review of Systems Constitutional: Constitutional: Reports poor appetite Cardiovascular: Cardiovascular: Reports no additional cardiovascular complaints Respiratory: Respiratory: Reports no additional respiratory complaints Gastrointestinal: Gastrointestinal: Reports abdominal pain, Reports nausea and Reports vomiting Genitourinary: Genitourinary: Reports no additional female genitourinary complaints Neurologic: Reports system reviewed and no additional complaints, except as documented Psychiatric: Psychiatric: Reports no additional psychiatric complaints [facility] Medical History Patient on waiting list for kidney transplant Gout History of transcatheter aortic valve replacement (TAVR) History of blood transfusion GERD (gastroesophageal reflux disease) Anxiety and depression AV fistula Hemodialysis patient COVID-19 vaccine series completed Murmur Hyperkalemia Left inguinal hernia DJD (degenerative joint disease) of thoracic spine Neuropathy End-stage renal disease (ESRD) COPD (chronic obstructive pulmonary disease) Coronary artery disease Bronchitis Asthma Arthritis Anemia Cirrhosis Surgical History Hx of colonoscopy History of liver transplant History of surgery on arm Social History Household Members: None Housing: House Are you a primary congregational care pastor to a significant other at home: No Do you presently have visiting nurse or other home services: No Unable to assess alcohol history related to: Unable to respond Alcohol intake: former Year quit: 2008 Comment: pt refused bed alarm Patient Tobacco Use Status: Never used Tobacco Smoked in Last 30 Days: No e-Cigarette/Vaping Use: Never Used Second Hand Smoke Exposure: No Use of substances other than those prescribed or required for medical reasons: No Advance Directives: Yes Advance Directives on File: Yes Advance Directives Date on File: 03/08/20 service: No Current occupational status: retired Meds Allergies Allergy/AdvReac Type Severity Reaction Status Date / Time Sulfa (Sulfonamide Allergy Intermediate HIVES Verified 06/09/23 16:25 Antibiotics) Heparin Analogues Allergy Unknown UNKNOWN Verified 06/09/23 16:25 [Heparin Agents] verapamil Allergy Unknown unknown Verified 06/09/23 16:25 Active Medications: Current Medications Piperacillin Sod/Tazobactam (Sod 3.375 gm/ Sodium Chloride) 50 mls @ 100 mls/hr IV ONCE ONE Stop: 06/09/23 21:36 Home Medications Medication Instructions Recorded Confirmed Last Taken Type aspirin 81 mg tablet,delayed 81 mg PO QAM 01/26/20 06/09/23 06/09/23 History release allopurinol 100 mg tablet 100 mg PO DAILY 03/08/20 06/09/23 06/09/23 History tacrolimus 1 mg capsule, 1 mg PO BID 03/08/20 06/09/23 06/09/23 History immediate-release cholecalciferol (vitamin D3) 50 1 tab PO DAILY 08/14/20 06/09/23 06/09/23 History mcg (2,000 unit) tablet hydroxyzine HCl 25 mg tablet 1 tab PO TID PRN Itching 08/14/20 06/09/23 04/04/23 History ropinirole 0.5 mg tablet 1 tab PO BEDTIME 08/14/20 06/09/23 06/08/23 History venlafaxine 25 mg tablet 1 tab PO DAILY 08/14/20 06/09/23 06/09/23 History oxycodone 5 mg tablet 1 tab PO BID PRN Moderate Pain 02/01/21 06/09/23 04/04/23 History (Scale Score 5-6) clonazepam 1 mg tablet 1 tab PO TUTHSA@0900 PRN anxiety 10/06/09/23 04/04/23 History famotidine 20 mg tablet 1 tab PO BID 01/14/22 06/09/23 06/09/23 History midodrine 5 mg tablet 1 tab PO TUTHSA PRN Hypotension 01/14/22 06/09/23 04/04/23 History rosuvastatin 5 mg tablet 1 tab PO DAILY 01/14/22 06/09/23 06/09/23 History levothyroxine 88 mcg tablet 88 mcg PO DAILY 01/20/23 06/09/23 06/09/23 History albuterol sulfate 90 mcg/actuation 1 puff inhalation Q6H PRN wheezing 06/09/23 06/09/23 Unknown History aerosol inhaler (Ventolin HFA) calcium citrate 200 mg (950 mg) 400 mg PO BID 06/09/23 06/09/23 06/09/23 History tablet camphor 4 %-methyl salicylate 30 1 appl topical BEDTIME PRN Muscle 06/09/23 06/09/23 Unknown History %-menthol 10 % topical cream Pain (Bengay Ultra Strength) sevelamer carbonate 800 mg tablet 800 mg PO TID 06/09/23 06/09/23 06/09/23 History Physical Exam Vital Signs and Narrative: Vital Signs: Last Vital Signs Temp 98.4 F 06/09/23 19:45 Pulse 66 06/09/23 19:45 Resp 16 06/09/23 19:45 BP 114/54 L 06/09/23 19:45 Pulse Ox 95 06/09/23 19:45 O2 Del Method Room Air 06/09/23 19:45 BMI result Body Mass Index 24.0 Elderly female lying in bed in no distress Neck supple, no JVD Regular rate and rhythm, S1-S2 heard Regular breath sounds bilaterally, no wheezing or crackles appreciated Abdomen with left lower quadrant tenderness and mild guarding, no rigidity, no rebound tenderness Patient is awake, alert and oriented to self, place, time and person ; no focal motor deficit Psych: Normal mood No pedal edema Results Labs 06/09/23 16:47 06/09/23 16:47 Labs: Laboratory Results - last 24 hr 06/09/23 06/09/23 06/09/23 16:47 16:48 16:51 MCV 94.8 MCH 29.4 MCHC 31.0 RDW 15.9 Plt Count 200 MPV 10.9 Immature Gran % (Auto) 0.4 Neut % (Auto) 78.2 H Lymph % (Auto) 12.6 L [place] % (Auto) 7.6 Eos % (Auto) 0.8 Baso % (Auto) 0.4 Lymph # (Auto) 1.4 [place] # (Auto) 0.9 Eos # (Auto) 0.1 Baso # (Auto) 0.0 Abs Immat Gran (auto) 0.05 H Absolute Neuts (auto) 8.8 H Absolute Nucleated RBC 0.000 Nucleated RBC % (auto) 0.0 ESR 44 H PT 11.3 INR 0.9 Anion Gap 15 Estim Creat Clear Calc 8.1 Estimated GFR 6 POC Glucose Random Glucose 91 Calcium 7.5 L D Magnesium 2.6 Total Bilirubin 0.4 AST 17 ALT 9 Alkaline Phosphatase 99 Troponin I High Sens 21.4 H C-Reactive Protein 4.14 H B-Natriuretic Peptide 2149 H Total Protein 7.0 Albumin 3.3 L Lipase 21 Stool Occult Blood POSITIVE Blood Type B Positive Antibody Screen NEGATIVE 06/09/23 06/09/23 19:48 20:30 MCV MCH MCHC RDW Plt Count MPV Immature Gran % (Auto) Neut % (Auto) Lymph % (Auto) [place] % (Auto) Eos % (Auto) Baso % (Auto) Lymph # (Auto) [place] # (Auto) Eos # (Auto) Baso # (Auto) Abs Immat Gran (auto) Absolute Neuts (auto) Absolute Nucleated RBC Nucleated RBC % (auto) ESR PT INR Anion Gap Estim Creat Clear Calc Estimated GFR POC Glucose 49 L* 164 H Random Glucose Calcium Magnesium Total Bilirubin AST ALT Alkaline Phosphatase Troponin I High Sens C-Reactive Protein B-Natriuretic Peptide Total Protein Albumin Lipase Stool Occult Blood Blood Type Antibody Screen Imaging Radiologist's Impressions: Impressions Abdomen/Pelvis CT 06/09/23 19:28 IMPRESSION: 1. Circumferential inflammation in the sigmoid colon, favored to correspond to acute diverticulitis. Is more pronounced as compared to prior. No evidence of perforation or abscess. 2. Small bowel containing right inguinal hernia without evidence of obstruction or strangulation. Assessment and Plan (1) Acute diverticulitis: Status: Acute Plan This is a 72-year-old female with pertinent history of ESRD on hemodialysis (T/T/S), alcoholic cirrhosis status post liver transplant, hypothyroidism, essential hypertension, mood disorder, gout, s/p TAVR, who presents to the emergency department for evaluation of abdominal discomfort. #. Acute uncomplicated diverticulitis: Patient meets inpatient admission criteria as age>70 with significant comorbidities and has intractable abdominal discomfort. Initiating empiric IV antibiotics. Clear liquid diet and advance as tolerated. IV opioids p.r.n. for analgesia #. Intermittent blood per rectum : Ongoing for a week. Hemoglobin has remained stable. Continue to monitor H and H. Initiating Protonix #. ESRD on hemodialysis: Consulted Nephrology #. Hypothyroidism: On Synthroid #. Hyperkalemia: Given Lokelma. Consulted Nephrology for dialysis in a.m. #. Essential hypertension: Continue home antihypertensives #. Mood disorder: Continue home mood stabilizers. No suicidal or homicidal ideation #. Mixed hyperlipidemia: On statin DVT prophylaxis: Mechanical Full code Admit as inpatient and will require two night minimum hospital stay for IV antibiotics, management of intractable pain with IV opioids and monitoring of bowel function (as above), which is not possible in a lesser acute setting. Quality Stroke Does the patient have a stroke diagnosis?: No VTE Prior VTE?: No VTE Risk Level:: Medical - moderate - high VTE Device Contraindication: N/A - Device Ordered VTE Drug Contraindication: Treatment Not Indicated
--- NOTE | 2023-06-09 21:16 | PC.NURSE ---
pt tough stick, delay on troponin redraw
--- NOTE | 2023-06-09 21:32 | PC.NURSE ---
Patient to be admitted to hospital, abx ordered, intermittent abd pain well controlled with PRN pain medications.
[2023-06-09 21:40] LABS: Troponin-I High Sensitivity 20.7 ng/L (<3.5-17.0)
--- NOTE | 2023-06-09 21:41 | PHA.MEDREC ---
Pharmacy Consult ? Medication Reconciliation Pharmacy has completed the medication reconciliation. Patient confirmed medications based on claim history. Midodrine is on prn on diaylisis days. Patient reported no longer taking lasix. Che Maier, LewisD
[2023-06-09 21:42] VITALS: BP 162/67; PULSE 64; RESP 18; O2SAT 99
[2023-06-09] MEDS: Piperacillin Sodium/Tazobactam 4.5 GM in 0.9 % Sodium Chloride 100 ML IV (21:44)
[2023-06-09] MEDS: Trolamine Salicylate 10 % Cream 141 gm Tube 1 APPL TOPICAL (22:20)
[2023-06-09 23:47] VITALS: BP 169/83; PULSE 64; RESP 16; TEMP 37.2; O2SAT 99
[2023-06-10 00:01] VITALS: BMI 24.0
[2023-06-10] MEDS: HYDROmorphone HCl 1 MG/ML SYRINGE IVPUSH ×4 (00:12→21:09)
[2023-06-10] MEDS: ondansetron HCL 4 MG/2 ML VIAL IVPUSH (00:13)
[2023-06-10 03:07] VITALS: BP 164/76; PULSE 67; RESP 18; TEMP 36.2; O2SAT 98
[2023-06-10] MEDS: Omeprazole 40 MG CAPSULE.DR PO ×2 (06:02→17:06)
[2023-06-10] MEDS: Levothyroxine Sodium 88 MCG TABLET PO (06:02)
[2023-06-10 06:48] LABS: MANUAL DIFF FLAG NO
[2023-06-10 07:01] LABS: Basophils Percent Auto 0.4 % (0-2); Eosinophils Absolute Auto 0.3 X10*3/uL (0.0-0.4); Eosinophils Percent Auto 3.1 % (0-4); Hematocrit 32.5 % (37.0-47.0); Hemoglobin 10.4 g/dl (12.0-16.0); Imm Gran Abs Auto 0.04 X10*3/uL (0.00-0.03); Imm Gran Pct Auto 0.4 % (0.0-0.4); Lymphocytes Absolute Auto 1.7 X10*3/uL (1.2-4.9); Lymphocytes Percent Auto 18.7 % (20-40); Mean Corpuscular Hemoglobin 29.8 pg (27.0-33.0); Mean Corpuscular Volume 93.1 fL (80.0-98.0); Mean Platelet Volume 11.3 fL (9.4-12.3); Monocytes Absolute Auto 0.9 X10*3/uL (0.1-1.2); Monocytes Percent Auto 9.8 % (2-11); Neutrophils Absolute Auto 6.2 x10*3/uL (2.0-8.3); Neutrophils Percent Auto 67.6 % (45-73); Platelet Count 165 X10*3/uL (160-400); Red Blood Count 3.49 X10*6/uL (4.20-5.50); Red Cell Distribution Width 15.6 % (11.0-16.0); White Blood Count 9.3 X10*3/uL (4.8-10.8)
[2023-06-10 07:23] LABS: Anion Gap 14 (12-20); Blood Urea Nitrogen 38 mg/dL (9-16); Calcium 7.4 mg/dL (8.4-10.2); Carbon Dioxide 23 mmol/L (22-29); Chloride 103 mmol/L (96-108); Creatinine Clr Calc Pharmacy 7.6; Estimated Glomerular Filt Rate 6; Glucose Random 63 mg/dL (60-115); Potassium 5.8 mmol/L (3.3-5.1); Sodium 134 mmol/L (135-145)
[2023-06-10] MEDS: hydrOXYzine HCL 25 MG TABLET PO (07:33)
[2023-06-10] MEDS: Sodium Zirconium Cyclosilicate 10 GM POWD.PACK PO (07:33)
[2023-06-10 07:35] VITALS: BP 163/70; PULSE 63; RESP 18; TEMP 36.7; O2SAT 94
[2023-06-10] MEDS: Sevelamer Carbonate Tablet 800 MG TABLET PO ×2 (08:41→20:58)
[2023-06-10] MEDS: allopurinoL 100 MG TABLET PO (08:41)
[2023-06-10] MEDS: Cholecalciferol (Vitamin D3) 25 MCG TABLET 50 MCG PO (08:41)
[2023-06-10] MEDS: Metoprolol Tartrate 25 MG TABLET PO ×2 (08:41→20:58)
[2023-06-10] MEDS: oxyCODONE HCl Immed Release 5 MG TABLET PO (08:41)
[2023-06-10] MEDS: Venlafaxine HCL 25 MG TABLET PO (08:41)
[2023-06-10] MEDS: 0.9 % Sodium Chloride Flush 3 ML SYRINGE IVFLUSH ×2 (08:42→21:57)
--- NOTE | 2023-06-10 09:39 | MHC.CM.PN ---
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
[2023-06-10] MEDS: Piperacillin Sodium/Tazobactam 4.5 GM in 0.9 % Sodium Chloride 100 ML IV ×2 (10:30→21:09)
[2023-06-10] MEDS: Tacrolimus 1 MG CAPSULE PO ×2 (10:30→20:59)
--- NOTE | 2023-06-10 10:58 | P.CONNP_ITS ---
History of Present Illness Reason for Consult Consult date: 06/10/23 Reason for consult: ESRD Chief Complaint Chief complaint: Abdominal pain History of Present Illness Narrative: 72-year-old female with pertinent history of ESRD on hemodialysis (T/T/S), at [facility] - Usually sees Dr.Arley Umanzor, h/o alcoholic cirrhosis status post liver transplant, hypothyroidism, essential hypertension, mood disorder, gout, s/p TAVR, who presents to the emergency department for evaluation of abdominal discomfort. Patient states she started having left- sided abdominal pain 1 day prior to presentation. It has been constant, nonradiating and progressive over the last 24 hours and without any relieving factors. It is associated with multiple episodes of nausea and nonbloody emesis. Has associated chills but no fever. Patient states she had an episode of diverticulitis about 50 years ago. Patient also states that over the last 1 week she has noticed intermittent minimal scant blood when wiping after stools. No fever, chest discomfort, palpitations, shortness of breath, changes in urinary habits. Review of Systems Review of Systems Yes all other systems are reviewed and are negative PMFSH Past Medical History Medical History Patient on waiting list for kidney transplant Gout History of transcatheter aortic valve replacement (TAVR) History of blood transfusion GERD (gastroesophageal reflux disease) Anxiety and depression AV fistula Hemodialysis patient COVID-19 vaccine series completed Murmur Hyperkalemia Left inguinal hernia DJD (degenerative joint disease) of thoracic spine Neuropathy End-stage renal disease (ESRD) COPD (chronic obstructive pulmonary disease) Coronary artery disease Bronchitis Asthma Arthritis Anemia Cirrhosis Surgical History Surgical History Hx of colonoscopy History of liver transplant History of surgery on arm Social History Social History Household Members: None Housing: Apartment Are you a primary child caregiver private home to a significant other at home: No Do you presently have visiting nurse or other home services: No Unable to assess alcohol history related to: Unable to respond Alcohol intake: former Year quit: 2008 Comment: pt refused bed alarm Patient Tobacco Use Status: Former Tobacco user Quit Date: 40 years ago Tobacco use type: Cigarette Cigarette Packs Per Day: 2 Cigarettes Per Day: 40.0 Years Smoked: 25 e-Cigarette/Vaping Use: Never Used Second Hand Smoke Exposure: No Advance Directives Date on File: 03/08/20 service: No Current occupational status: retired Meds Allergies Allergy/AdvReac Type Severity Reaction Status Date / Time Sulfa (Sulfonamide Allergy Intermediate HIVES Verified 06/09/23 16:25 Antibiotics) Heparin Analogues Allergy Unknown UNKNOWN Verified 06/09/23 16:25 [Heparin Agents] verapamil Allergy Unknown unknown Verified 06/09/23 16:25 Active Medications: Current Medications Acetaminophen (Acetaminophen 325 Mg Tablet) 650 mg PO Q6H PRN PRN Reason: Pain, Mild (Pain Scale 1-3) Allopurinol (Allopurinol 100 Mg Tablet) 100 mg PO DAILY PENDING SALE TO [facility] Last Admin: 06/10/23 08:41 Dose: 100 mg Atorvastatin Calcium (Atorvastatin Calcium 20 Mg Tablet) 20 mg PO BEDTIME STACI Calcium Carbonate (Calcium Carbonate 500 Mg Tablet) 500 mg PO BID PENDING SALE TO [facility] Last Admin: 06/10/23 08:41 Dose: 500 mg Clonazepam (Clonazepam 1 Mg Tablet) 1 mg PO TUTHSA@0900 PRN PRN Reason: anxiety Hydromorphone HCl (Hydromorphone Hcl 1 Mg/Ml Syringe) 1 mg IVPUSH Q4H PRN; Protocol PRN Reason: Pain, Severe (Pain Scale 7-10) Last Admin: 06/10/23 04:09 Dose: 1 mg Hydroxyzine HCl (Hydroxyzine Hcl 25 Mg Tablet) 25 mg PO TID PRN PRN Reason: Itching Last Admin: 06/10/23 07:33 Dose: 25 mg Piperacillin Sod/Tazobactam (Sod 4.5 gm/ Sodium Chloride) 100 mls @ 200 mls/hr IV Q12H PENDING SALE TO [facility] Last Admin: 06/10/23 10:30 Dose: 200 mls/hr Levothyroxine Sodium (Levothyroxine Sodium 88 Mcg Tablet) 88 mcg PO DAILY@0600 PENDING SALE TO [facility] Last Admin: 06/10/23 06:02 Dose: 88 mcg Melatonin (Melatonin 3 Mg Tablet) 6 mg PO BEDTIME PRN PRN Reason: Insomnia Metoprolol Tartrate (Metoprolol Tartrate 25 Mg Tablet) 25 mg PO BID PENDING SALE TO [facility]; Protocol Last Admin: 06/10/23 08:41 Dose: 25 mg Midodrine (Midodrine Hcl 5 Mg Tablet) 5 mg PO TUTHSA PRN PRN Reason: Hypotension Omeprazole (Omeprazole 40 Mg Capsule.Dr) 40 mg PO BID@0630,1630 PENDING SALE TO [facility] Last Admin: 06/10/23 06:02 Dose: 40 mg Ondansetron HCl (Ondansetron Hcl 4 Mg/2 Ml Vial) 4 mg IVPUSH Q8H PRN PRN Reason: Nausea and Vomiting Last Admin: 06/10/23 00:13 Dose: 4 mg Oxycodone HCl (Oxycodone Hcl Immed Release 5 Mg Tablet) 5 mg PO BID PRN PRN Reason: Pain, Moderate(Pain Scale 4-6) Last Admin: 06/10/23 08:41 Dose: 5 mg Ropinirole HCl (Ropinirole Hcl 0.5 Mg Tablet) 0.5 mg PO BEDTIME PENDING SALE TO [facility] Sevelamer Carbonate (Sevelamer Carbonate Tablet 800 Mg Tablet) 800 mg PO TID PENDING SALE TO [facility] Last Admin: 06/10/23 08:41 Dose: 800 mg Sodium Chloride (0.9 % Sodium Chloride Flush 3 Ml Syringe) 3 ml IVFLUSH QSHIFT PENDING SALE TO [facility] Last Admin: 06/10/23 08:42 Dose: 3 ml Tacrolimus (Tacrolimus 1 Mg Capsule) 1 mg PO BID PENDING SALE TO [facility] Last Admin: 06/10/23 10:30 Dose: 1 mg Trolamine Salicylate (Trolamine Salicylate 10 % Cream 141 Gm Tube) 1 appl TOPICAL BEDTIME PRN PRN Reason: Muscle Pain Last Admin: 06/09/23 22:20 Dose: 1 appl Venlafaxine HCl (Venlafaxine Hcl 25 Mg Tablet) 25 mg PO DAILY PENDING SALE TO [facility] Last Admin: 06/10/23 08:41 Dose: 25 mg Vitamin D (Cholecalciferol (Vitamin D3) 25 Mcg Tablet) 50 mcg PO DAILY PENDING SALE TO [facility] Last Admin: 06/10/23 08:41 Dose: 50 mcg Home Medications Medication Instructions Recorded Confirmed Last Taken Type aspirin 81 mg tablet,delayed 81 mg PO QAM 01/26/20 06/09/23 06/09/23 History release allopurinol 100 mg tablet 100 mg PO DAILY 03/08/20 06/09/23 06/09/23 History tacrolimus 1 mg capsule, 1 mg PO BID 03/08/20 06/09/23 06/09/23 History immediate-release cholecalciferol (vitamin D3) 50 1 tab PO DAILY 08/14/20 06/09/23 06/09/23 History mcg (2,000 unit) tablet hydroxyzine HCl 25 mg tablet 1 tab PO TID PRN Itching 08/14/20 06/09/23 04/04/23 History ropinirole 0.5 mg tablet 1 tab PO BEDTIME 08/14/20 06/09/23 06/08/23 History venlafaxine 25 mg tablet 1 tab PO DAILY 08/14/20 06/09/23 06/09/23 History oxycodone 5 mg tablet 1 tab PO BID PRN Moderate Pain 02/01/21 06/09/23 04/04/23 History (Scale Score 5-6) clonazepam 1 mg tablet 1 tab PO TUTHSA@0900 PRN anxiety 01/14/22 06/09/23 04/04/23 History famotidine 20 mg tablet 1 tab PO BID 01/14/22 06/09/23 06/09/23 History midodrine 5 mg tablet 1 tab PO TUTHSA PRN Hypotension 01/14/22 06/09/23 04/04/23 History rosuvastatin 5 mg tablet 1 tab PO DAILY 01/14/22 06/09/23 06/09/23 History levothyroxine 88 mcg tablet 88 mcg PO DAILY 01/20/23 06/09/23 06/09/23 History albuterol sulfate 90 mcg/actuation 1 puff inhalation Q6H PRN wheezing 06/09/23 06/09/23 Unknown History aerosol inhaler (Ventolin HFA) calcium citrate 200 mg (950 mg) 400 mg PO BID 06/09/23 06/09/23 06/09/23 History tablet camphor 4 %-methyl salicylate 30 1 appl topical BEDTIME PRN Muscle 06/09/23 06/09/23 Unknown History %-menthol 10 % topical cream Pain (Bengay Ultra Strength) sevelamer carbonate 800 mg tablet 800 mg PO TID 06/09/23 06/09/23 06/09/23 History Physical Exam Vital Signs: Last Vital Signs Temp 98.1 F 06/10/23 07:35 Pulse 63 06/10/23 07:35 Resp 18 06/10/23 07:35 BP 163/70 H 06/10/23 07:35 Pulse Ox 94 06/10/23 07:35 O2 Del Method Room Air 06/10/23 07:35 BMI result Body Mass Index 24.0 Const General: ill appearing Neck Neck: Yes supple Resp Auscultation: clear to auscultation bilaterally Cardio Palpation: no palpable S3 Heart sounds: no rubs GI Palpation (GI): Soft to palpation Auscultation: normal bowel sounds Neuro Motor exam (neuro): no asterixis Results Lab Results 06/10/23 05:45 06/10/23 05:45 Lab results: Chemistry 06/09/23 06/10/23 16:47 05:45 Sodium 138 134 L Potassium 5.9 H 5.8 H Carbon Dioxide 29 23 BUN 36 H 38 H Creatinine 6.42 H* 6.85 H* Calcium 7.5 L D 7.4 L Hematology 06/09/23 06/10/23 16:47 05:45 WBC 11.2 H 9.3 Hgb 11.4 L 10.4 L Plt Count 200 165 Assessment and Plan (1) Acute diverticulitis: Status: Acute (2) Acute hyperkalemia: Status: Acute (3) End-stage renal disease (ESRD): Status: Acute (4) Cirrhosis: Status: Acute Plan HD today with low K bath to correct hyperkalemia Keep on low K diet Fluid removal as tolerated Check Tacrolimus level - ordered Concur with other medical management Procedures Date of Service Date of Service: 06/10/23
--- NOTE | 2023-06-10 12:05 | PC.NURSE ---
Pt IV zosyn hung at 1030. IV pump alarming for downstream occlusion 2x. IV assessed, first assessment, IV patent, and draining, but positional. Second assessment t/w found IV leaking. IV abx paused with 6.42ml administrated. New IV attempted with no success. Pt brought up to dialysis. 93.58 ml wasted.
--- NOTE | 2023-06-10 14:10 | HO.PM.IMPN ---
Subjective Subjective Date of Service: 06/11/23 Interval History: f/u on acute diverticulitis, hyperkalemia, abd better and asking for diet upgrade Physical Exam Vital Signs: Vital Signs: Last Vital Signs Temp 98.1 F 06/10/23 07:35 Pulse 63 06/10/23 07:35 Resp 18 06/10/23 07:35 BP 163/70 H 06/10/23 07:35 Pulse Ox 94 06/10/23 07:35 O2 Del Method Room Air 06/10/23 07:35 BMI result Body Mass Index 24.0 General: AO X 3, no acute distress Resp: CTA bilateral CVS: S1,S2,RRR GI: +BS, NT, no distention Skin: No rash Neuro: motor grossly intact Psych: appropriate affect Objective Data Active Medications Acetaminophen (Acetaminophen 325 Mg Tablet) 650 mg PO Q6H PRN PRN Reason: Pain, Mild (Pain Scale 1-3) Allopurinol (Allopurinol 100 Mg Tablet) 100 mg PO DAILY [facility] Last Admin: 06/10/23 08:41 Dose: 100 mg Documented By: MP Atorvastatin Calcium (Atorvastatin Calcium 20 Mg Tablet) 20 mg PO BEDTIME [facility] Calcium Carbonate (Calcium Carbonate 500 Mg Tablet) 500 mg PO BID [facility] Last Admin: 06/10/23 08:41 Dose: 500 mg Documented By: MP Clonazepam (Clonazepam 1 Mg Tablet) 1 mg PO TUTHSA@0900 PRN PRN Reason: anxiety Hydromorphone HCl (Hydromorphone Hcl 1 Mg/Ml Syringe) 1 mg IVPUSH Q4H PRN; Protocol PRN Reason: Pain, Severe (Pain Scale 7-10) Last Admin: 06/10/23 04:09 Dose: 1 mg Documented By: PATRICK Hydroxyzine HCl (Hydroxyzine Hcl 25 Mg Tablet) 25 mg PO TID PRN PRN Reason: Itching Last Admin: 06/10/23 07:33 Dose: 25 mg Documented By: MP Piperacillin Sod/Tazobactam (Sod 4.5 gm/ Sodium Chloride) 100 mls @ 200 mls/hr IV Q12H [facility] Last Infusion: 06/10/23 11:52 Dose: Infused Documented By: MP Levothyroxine Sodium (Levothyroxine Sodium 88 Mcg Tablet) 88 mcg PO DAILY@0600 [facility] Last Admin: 06/10/23 06:02 Dose: 88 mcg Documented By: PATRICK Melatonin (Melatonin 3 Mg Tablet) 6 mg PO BEDTIME PRN PRN Reason: Insomnia Metoprolol Tartrate (Metoprolol Tartrate 25 Mg Tablet) 25 mg PO BID [facility]; Protocol Last Admin: 06/10/23 08:41 Dose: 25 mg Documented By: MP Midodrine (Midodrine Hcl 5 Mg Tablet) 5 mg PO TUTHSA PRN PRN Reason: Hypotension Omeprazole (Omeprazole 40 Mg Capsule.) 40 mg PO BID@0630,1630 [facility] Last Admin: 06/10/23 06:02 Dose: 40 mg Documented By: PATRICK Ondansetron HCl (Ondansetron Hcl 4 Mg/2 Ml Vial) 4 mg IVPUSH Q8H PRN PRN Reason: Nausea and Vomiting Last Admin: 06/10/23 00:13 Dose: 4 mg Documented By: PATRICK Oxycodone HCl (Oxycodone Hcl Immed Release 5 Mg Tablet) 5 mg PO BID PRN PRN Reason: Pain, Moderate(Pain Scale 4-6) Last Admin: 06/10/23 08:41 Dose: 5 mg Documented By: MP Ropinirole HCl (Ropinirole Hcl 0.5 Mg Tablet) 0.5 mg PO BEDTIME [facility] Sevelamer Carbonate (Sevelamer Carbonate Tablet 800 Mg Tablet) 800 mg PO TID [facility] Last Admin: 06/10/23 08:41 Dose: 800 mg Documented By: MP Sodium Chloride (0.9 % Sodium Chloride Flush 3 Ml Syringe) 3 ml IVFLUSH QSHIFT [facility] Last Admin: 06/10/23 08:42 Dose: 3 ml Documented By: MP Tacrolimus (Tacrolimus 1 Mg Capsule) 1 mg PO BID [facility] Last Admin: 06/10/23 10:30 Dose: 1 mg Documented By: MP Trolamine Salicylate (Trolamine Salicylate 10 % Cream 141 Gm Tube) 1 appl TOPICAL BEDTIME PRN PRN Reason: Muscle Pain Last Admin: 06/09/23 22:20 Dose: 1 appl Documented By: DITOLC Venlafaxine HCl (Venlafaxine Hcl 25 Mg Tablet) 25 mg PO DAILY [facility] Last Admin: 06/10/23 08:41 Dose: 25 mg Documented By: MP Vitamin D (Cholecalciferol (Vitamin D3) 25 Mcg Tablet) 50 mcg PO DAILY STACI Last Admin: 06/10/23 08:41 Dose: 50 mcg Documented By: MP Labs 06/10/23 05:45 06/10/23 05:45 Labs: Laboratory Results - last 24 hr 06/09/23 06/09/23 06/09/23 16:47 16:48 16:51 MCV 94.8 MCH 29.4 MCHC 31.0 RDW 15.9 Plt Count 200 MPV 10.9 Immature Gran % (Auto) 0.4 Neut % (Auto) 78.2 H Lymph % (Auto) 12.6 L Henderson % (Auto) 7.6 Eos % (Auto) 0.8 Baso % (Auto) 0.4 Lymph # (Auto) 1.4 Henderson # (Auto) 0.9 Eos # (Auto) 0.1 Baso # (Auto) 0.0 Abs Immat Gran (auto) 0.05 H Absolute Neuts (auto) 8.8 H Absolute Nucleated RBC 0.000 Nucleated RBC % (auto) 0.0 ESR 44 H PT 11.3 INR 0.9 Anion Gap 15 Estim Creat Clear Calc 8.1 Estimated GFR 6 POC Glucose Random Glucose 91 Calcium 7.5 L D Magnesium 2.6 Total Bilirubin 0.4 AST 17 ALT 9 Alkaline Phosphatase 99 Troponin I High Sens 21.4 H C-Reactive Protein 4.14 H B-Natriuretic Peptide 2149 H Total Protein 7.0 Albumin 3.3 L Lipase 21 Stool Occult Blood POSITIVE Blood Type B Positive Antibody Screen NEGATIVE Crossmatch ([facility]) See Detail 06/09/23 06/09/23 06/09/23 19:48 20:30 21:14 MCV MCH MCHC RDW Plt Count MPV Immature Gran % (Auto) Neut % (Auto) Lymph % (Auto) Henderson % (Auto) Eos % (Auto) Baso % (Auto) Lymph # (Auto) Henderson # (Auto) Eos # (Auto) Baso # (Auto) Abs Immat Gran (auto) Absolute Neuts (auto) Absolute Nucleated RBC Nucleated RBC % (auto) ESR PT INR Anion Gap Estim Creat Clear Calc Estimated GFR POC Glucose 49 L* 164 H Random Glucose Calcium Magnesium Total Bilirubin AST ALT Alkaline Phosphatase Troponin I High Sens 20.7 H C-Reactive Protein B-Natriuretic Peptide Total Protein Albumin Lipase Stool Occult Blood Blood Type Antibody Screen Crossmatch ([facility]) 06/10/23 05:45 MCV 93.1 MCH 29.8 MCHC 32.0 RDW 15.6 Plt Count 165 MPV 11.3 Immature Gran % (Auto) 0.4 Neut % (Auto) 67.6 Lymph % (Auto) 18.7 L Henderson % (Auto) 9.8 Eos % (Auto) 3.1 Baso % (Auto) 0.4 Lymph # (Auto) 1.7 Henderson # (Auto) 0.9 Eos # (Auto) 0.3 Baso # (Auto) 0.0 Abs Immat Gran (auto) 0.04 H Absolute Neuts (auto) 6.2 Absolute Nucleated RBC 0.000 Nucleated RBC % (auto) 0.0 ESR PT INR Anion Gap 14 Estim Creat Clear Calc 7.6 Estimated GFR 6 POC Glucose Random Glucose 63 Calcium 7.4 L Magnesium Total Bilirubin AST ALT Alkaline Phosphatase Troponin I High Sens C-Reactive Protein B-Natriuretic Peptide Total Protein Albumin Lipase Stool Occult Blood Blood Type Antibody Screen Crossmatch ([facility]) Assessment and Plan (1) Acute hyperkalemia: Status: Acute (2) Erysipelas: Status: Acute Plan This is a 72-year-old female with pertinent history of ESRD on hemodialysis (T/T/S), alcoholic cirrhosis status post liver transplant, hypothyroidism, essential hypertension, mood disorder, gout, s/p TAVR, who presents to the emergency department for evaluation of abdominal discomfort. Acute uncomplicated diverticulitis, continue zosyn, advance diet as kirstie Intermittent blood per rectum : Ongoing for a week. Hemoglobin has remained stable. Continue to monitor H and H. IV PPI ESRD on hemodialysis: Consulted Nephrology Hypothyroidism: On Synthroid Hyperkalemia: Given Lokelma. should resolved with HD Essential hypertension: Continue home antihypertensives Mood disorder: Continue home mood stabilizers. No suicidal or homicidal ideation Mixed hyperlipidemia: On statin DVT prophylaxis: Mechanical Full code need for inpt: acute diverticulitis needing IV Abx, hyperkalemia that requires acute dialysis Quality Stroke Does the patient have a stroke diagnosis?: No VTE Prior VTE?: No VTE Risk Level:: Medical - moderate - high VTE Device Contraindication: N/A - Device Ordered VTE Drug Contraindication: Treatment Not Indicated
[2023-06-10 16:00] VITALS: BP 138/94; PULSE 64; RESP 18; TEMP 36.8; O2SAT 95
[2023-06-10 18:59] VITALS: BP 123/64; PULSE 70; RESP 18; TEMP 36.3; O2SAT 97
[2023-06-10] MEDS: Atorvastatin Calcium 20 MG TABLET PO (20:58)
[2023-06-10] MEDS: rOPINIRole HCL 0.5 MG TABLET PO (20:58)
[2023-06-11 03:07] VITALS: BP 114/55; PULSE 71; RESP 18; TEMP 36.5; O2SAT 94
[2023-06-11] MEDS: Omeprazole 40 MG CAPSULE.DR PO (06:07)
[2023-06-11] MEDS: Levothyroxine Sodium 88 MCG TABLET PO (06:07)
[2023-06-11] MEDS: oxyCODONE HCl Immed Release 5 MG TABLET PO (07:16)
[2023-06-11] MEDS: Tacrolimus 1 MG CAPSULE PO (07:16)
[2023-06-11] MEDS: Metoprolol Tartrate 25 MG TABLET PO (07:17)
[2023-06-11] MEDS: allopurinoL 100 MG TABLET PO (07:17)
[2023-06-11] MEDS: Sevelamer Carbonate Tablet 800 MG TABLET PO (07:17)
[2023-06-11] MEDS: Cholecalciferol (Vitamin D3) 25 MCG TABLET 50 MCG PO (07:17)
[2023-06-11] MEDS: Venlafaxine HCL 25 MG TABLET PO (07:17)
[2023-06-11 07:21] VITALS: BP 135/64; PULSE 63; RESP 18; TEMP 36.5; O2SAT 94
--- NOTE | 2023-06-11 08:54 | P.DS_ITS ---
DS: Providers Provider Date of Service: 06/11/23 Date of admission: 06/09/23 21:13 Primary care physician: Unknown Physician Consults: 06/09/23 21:17 Consult to Nephrology Routine Consulting Provider: [facility] [place] [facility] Reason for consultation: ESRD on HD DS: Diagnosis Discharge Diagnosis (1) Acute hyperkalemia: Status: Acute (2) Erysipelas: Status: Acute DS: Summary Hospital Course Hospital Course: admission hpi Chief Complaint: Abdominal Pain This is a 72-year-old female with pertinent history of ESRD on hemodialysis (T/T/S), alcoholic cirrhosis status post liver transplant, hypothyroidism, essential hypertension, mood disorder, gout, s/p TAVR, who presents to the emergency department for evaluation of abdominal discomfort. Patient states she started having left-sided abdominal pain 1 day prior to presentation. It has been constant, nonradiating and progressive over the last 24 hours and without any relieving factors. It is associated with multiple episodes of nausea and nonbloody emesis. Has associated chills but no fever. Patient states she had an episode of diverticulitis about 50 years ago. Patient also states that over the last 1 week she has noticed intermittent minimal scant blood when wiping after stools. No fever, chest discomfort, palpitations, shortness of breath, changes in urinary habits. In the emergency department, imaging with uncomplicated diverticulitis. Patient with intractable abdominal discomfort despite 2 doses of IV morphine. hospital course: She presented with abdominal pain and was diagnosed with acute diverticulitis on CT scan. Intravenous (IV) Zosyn was started, and she received IV fluids. Initially, she was nothing by mouth (NPO), but her diet was gradually advanced from liquids to regular food, which she is now tolerating well. She reported intermittent rectal bleeding, likely associated with the diverticulitis, which has resolved. Her hemoglobin has remained stable. She is no longer in pain and has no fever or chills. She wishes to go home and will be discharged with Augmentin. She was also found to have acute hyperkalemia (high potassium) related to her end-stage renal disease (ESRD). This was treated with Lokelma and ultimately hemodialysis, with successful resolution of the hyperkalemia. Final diagnoses: Acute diverticulitis Hyperkalemia blood per rectuam ESRD on HD Time Attestation Discharge Coordination Time (in mins): 38 Quality: Safe Use of Opioids Does Pt have an Active Cancer Diagnosis on the Problem List?: No Quality: Stroke Does the patient have a stroke diagnosis?: No Physical Exam Vital Signs: Vital Signs: Last Vital Signs Temp 97.7 F 06/11/23 07:21 Pulse 63 06/11/23 07:21 Resp 18 06/11/23 07:21 BP 135/64 06/11/23 07:21 Pulse Ox 94 06/11/23 07:21 O2 Del Method Room Air 06/11/23 07:21 BMI result Body Mass Index 24.0 General: AO X 3, no acute distress Resp: CTA bilateral CVS: S1,S2,RRR GI: +BS, NT, no distention Skin: No rash Neuro: motor grossly intact Psych: appropriate affect DS: Data Data Completed and Pending Completed studies during hospitalization [Text1]: Procedures Performance of Urinary Filtration, Intermittent, Less than 6 Hours Per Day (01/13/22) Supplement Left Inguinal Region with Synthetic Substitute, Open Approach (08/14/20) Labs on day of discharge: Laboratory Results - last 24 hr 06/10/23 20:11 Hold Yellow Top See Note Discharge Plan Discharge Anticipated Discharge Date/Time: 06/11/23 08:55 Patient Disposition: Home, Self-Care Discharge Diagnosis: Acute diverticulitis Referrals: Physician,Unknown J [Primary Care Provider] - 1 Week Discharge Medications: New amoxicillin-pot clavulanate 500-125 mg Tablet 1 tab PO Q12H Qty: 10 0RF Continued venlafaxine 25 mg tablet 1 tab PO DAILY ropinirole 0.5 mg tablet 1 tab PO BEDTIME hydroxyzine HCl 25 mg tablet 1 tab PO TID PRN (Reason: Itching) cholecalciferol (vitamin D3) 50 mcg (2,000 unit) tablet 1 tab PO DAILY allopurinol 100 mg tablet 100 mg PO DAILY tacrolimus 1 mg capsule 1 mg PO BID oxycodone 5 mg tablet 1 tab PO BID PRN (Reason: Moderate Pain (Scale Score 5-6)) metoprolol tartrate 25 mg Tablet 25 mg PO BID Qty: 0 0RF Protocol: Hold for SBP/HR < HOLD for SBP < : 90 HOLD for HR < : 60 clonazepam 1 mg tablet 1 tab PO TUTHSA@0900 PRN (Reason: anxiety ) midodrine 5 mg tablet 1 tab PO TUTHSA PRN (Reason: Hypotension) Rx Instructions: ON DIALYSIS DAYS famotidine 20 mg tablet 1 tab PO BID rosuvastatin 5 mg tablet 1 tab PO DAILY albuterol sulfate [Ventolin HFA] 90 mcg/actuation HFA aerosol inhaler 1 puff INHALATION Q6H PRN (Reason: wheezing) calcium citrate 200 mg (950 mg) tablet 400 mg PO BID sevelamer carbonate 800 mg tablet 800 mg PO TID Bengay Ultra Strength 4-30-10 % Cream 1 appl TOPICAL BEDTIME PRN (Reason: Muscle Pain) levothyroxine 88 mcg tablet 88 mcg PO DAILY aspirin 81 mg tablet,delayed release (DR/EC) 81 mg PO QAM Diet: Advance to usual diet Activity on Discharge: As tolerated Stand Alone Forms: Patient Portal Discharge page Care Plan Goals: For recovery from diverticulitis Health Concerns: Acute diverticulitis Hyperkalemia Plan of Treatment: Take Augmentin as directed and follow-up with your primary care provider within a week, call for appointment Follow-up with dialysis as usual on Friday and Friday Assessment: See above
[2023-06-11 09:31] LABS: Anion Gap 14 (12-20); Blood Urea Nitrogen 19 mg/dL (9-16); Calcium 7.1 mg/dL (8.4-10.2); Carbon Dioxide 31 mmol/L (22-29); Chloride 98 mmol/L (96-108); Creatinine Clr Calc Pharmacy 11.6; Estimated Glomerular Filt Rate 10; Glucose Random 84 mg/dL (60-115); Potassium 4.3 mmol/L (3.3-5.1); Sodium 139 mmol/L (135-145)
[2023-06-11] MEDS: Amoxicillin/Potassium Clav 500 MG TABLET PO (09:34)
--- NOTE | 2023-06-11 10:07 | MHC.CM.PN ---
pt dcd home no servies
--- NOTE | 2023-06-11 10:10 | MHC.CLN ---
NUTRITION PATIENT WITH ESRD ON HEMODIALYSIS. DIET CHANGED TO REGULAR, LOW POTASSIUM.
--- NOTE | 2023-06-11 13:17 | P.PNNP_ITS ---
Subjective Subjective Date of Service: 06/11/23 Interval history: f/u for ESRD on a back drop of acute diverticulitis, hyperkalemia. Asking for diet upgrade Physical Exam 2 Vital Signs: Vital Signs: Last Vital Signs Temp 97.7 F 06/11/23 07:21 Pulse 63 06/11/23 07:21 Resp 18 06/11/23 07:21 BP 135/64 06/11/23 07:21 Pulse Ox 94 06/11/23 07:21 O2 Del Method Room Air 06/11/23 07:21 BMI result Body Mass Index 24.0 Const: General: comfortable and no acute distress HEENT: Head: Yes normocephalic Mouth: Normal oral and palatal mucosa present Eyes: EOM: EOMs intact bilaterally Neck: Neck: Yes supple Resp: Auscultation: clear to auscultation bilaterally Cardio: Jugular venous distension: no JVD Rate: regular rate GI: Palpation (GI): Soft to palpation Auscultation: normal bowel sounds : General: Yes no CVA tenderness Back/Spine/Pelvis: Back: no CVA tenderness Skin: General skin exam: no rashes or lesions noted Objective Data Labs 06/10/23 05:45 06/11/23 08:45 Labs: Laboratory Results - last 24 hr 06/10/23 06/11/23 20:11 08:45 Hold Purple Top SEE NOTE Sodium 139 Potassium 4.3 D Chloride 98 Carbon Dioxide 31 H Anion Gap 14 BUN 19 H Creatinine 4.48 H* Estim Creat Clear Calc 11.6 Estimated GFR 10 Random Glucose 84 Calcium 7.1 L Hold Yellow Top See Note Procedures Date of Service Date of Service: 06/11/23 Assessment & Plan Assessment and plan (1) ESRD (end stage renal disease) on dialysis: Status: Acute Plan Usually gets HD on TTS Serum potassium normalized Volume status optimal Renal Diet; No change in tacrolimus dosage Continue rest of current management Progress Note: Quality Stroke Does the patient have a stroke diagnosis?: No
--- NOTE | 2023-06-12 08:06 | P.CDIM_ITS ---
PROVIDER RESPONSE TEXT: To clarify, the appropriate diagnosis supported by the clinical indicators: Hypoglycemia: resolved QUERY TEXT: PHYSICIAN'S DOCUMENTATION REQUEST Date of Query: 06/11/2023 08:44 AM EDT Patient Name: Guadalupe Kay Admit Date: 06/10/2023 Dear Juancho Henriquez, A review of the medical record indicates additional documentation may be needed. Please review below and update the documentation accordingly. Clinical Indicators: LAB FINDINGS: POC glucose 49 L 164 H Ed - D50 IV insulin Based on the above, is there a diagnosis that correlates with these lab findings: Hypoglycemia resolved, possible, probable, etc. Labs indicate a diagnosis of (please specify) Other (explain) Clinically unable to determine (explain) Thank you, Cande Covarrubias, CCS, CDIS Use of terms such as suspected, likely, concern for, or probable (associated with a specific diagnosi s that is being evaluated, monitored, or treated as if it exists) are acceptable and can be coded in the inpatient se tting, when documented at the time of discharge. Please use your independent medical judgment in providing your response. THIS QUERY IS PART OF THE PERMANENT MEDICAL RECORD
[2023-06-16 07:43] LABS: Tacrolimus Prograf 4.7
== END 2023-06-11 13:19 | disposition home or self-care (01) | DRG 377 ==
LOC: HO.ED 17:24 → HO.EDOVER 21:44 → HO.S3 22:12
PROVIDERS: Internal Medicine Hypertension Specialist; Nurse Practitioner Family; Admitting Provider Student in an Organized Health Care Education/Training Program; Emergency Provider Internal Medicine; PCP Internal Medicine; Visit Provider Internal Medicine
DX: K57.31 Diverticulosis of large intestine without perforation or abscess with bleeding (principal); N18.6 End stage renal disease; Z94.4 Liver transplant status; I25.10 Atherosclerotic heart disease of native coronary artery without angina pectoris; E87.5 Hyperkalemia; A46 Erysipelas; F39 Unspecified mood [affective] disorder; E16.2 Hypoglycemia, unspecified; E78.2 Mixed hyperlipidemia; E03.9 Hypothyroidism, unspecified; Z99.2 Dependence on renal dialysis; K21.9 Gastro-esophageal reflux disease without esophagitis; Z79.621 Long term (current) use of calcineurin inhibitor; Z95.2 Presence of prosthetic heart valve; Z87.891 Personal history of nicotine dependence; Z79.82 Long term (current) use of aspirin; Z79.890 Hormone replacement therapy; Z79.899 Other long term (current) drug therapy
CPT/HCPCS: 36415; 74176; 80048; 80053; 80197; 82272; 82947; 83690; 83735; 83880; 84484; 85025; 85610; 85652; 86140; 86850; 86900; 86901; 86902; 86920; 86922; 90999; 93005; 99285; J0613; J1170; J2270; J2405; J2543

== ENCOUNTER → 2023-06-09 16:21 | Outpatient (BNV) | payer OTHER, SELFPAY | PROVIDERS: Admitting Provider Student in an Organized Health Care Education/Training Program; Emergency Provider Internal Medicine; Visit Provider Internal Medicine Cardiovascular Disease | DX: I44.0 Atrioventricular block, first degree (principal) | CPT/HCPCS: 93010 ==

== ENCOUNTER → 2023-06-09 21:13 | Outpatient (BNV) | payer OTHER, SELFPAY | PROVIDERS: Admitting Provider Student in an Organized Health Care Education/Training Program; Emergency Provider Internal Medicine; PCP Internal Medicine; Visit Provider Internal Medicine Nephrology | DX: K57.92 Diverticulitis of intestine, part unspecified, without perforation or abscess without bleeding (principal); E87.5 Hyperkalemia; N18.6 End stage renal disease; K74.60 Unspecified cirrhosis of liver; Z99.2 Dependence on renal dialysis | CPT/HCPCS: 99223; 99232 ==

== ENCOUNTER → 2023-06-09 21:13 | Outpatient (BNV) | payer OTHER, SELFPAY | PROVIDERS: Admitting Provider Student in an Organized Health Care Education/Training Program; Emergency Provider Internal Medicine; Visit Provider Student in an Organized Health Care Education/Training Program | DX: E87.5 Hyperkalemia (principal); A46 Erysipelas | CPT/HCPCS: 99222; 99232; 99239 ==

== ENCOUNTER 2023-06-12 21:44 | Emergency (ER) | payer OTHER, SELFPAY ==
--- NOTE | ~2023-06-12 | CT_ITS ---
EXAMINATION: NONCONTRAST HEAD CT NONCONTRAST MAXILLOFACIAL CT NONCONTRAST CERVICAL SPINE CT INDICATION INFORMATION: Fall, head strike. COMPARISON: CT head and cervical spine 04/16/2023. TECHNIQUE: Separate noncontrast CT examinations of the head, maxillofacial bones, and cervical spine were performed. Coronal and sagittal images were created for each examination at the technologist workstation. This CT examination was performed using dose optimization techniques as appropriate, variously including the following: *Automated exposure control *Adjustment of mA and/or kV according to patient size (this includes techniques or standardized protocols for targeted exams where dose is matched to indication/reason for exam; i.e. extremities or head) *Use of iterative reconstruction technique DLP: 867, 291 and 304 mGy-cm FINDINGS: Head: There is no evidence of acute intracranial hemorrhage or territorial infarction. No abnormal mass effect or midline shift is seen. Villa to white matter differentiation is well preserved. No extra-axial fluid collections are identified. Stable bifrontal CSF prominence. No hydrocephalus. Proportional prominence of the ventricles and sulcal spaces is consistent with moderate volume loss. Patchy periventricular and deep white matter hypoattenuation is consistent with moderate small vessel ischemic changes. No acute soft tissue abnormality. No calvarial fracture. The mastoid air cells are well aerated. Maxillofacial: No acute maxillofacial fractures are seen. The frontal, maxillary, ethmoid, and sphenoid sinuses are well aerated. The mandibular heads are well-seated in the condylar fossa. Patient is edentulous. The orbits demonstrate a normal appearance bilaterally. The globes are intact, and there are no suspicious findings to suggest retrobulbar hemorrhage. Cervical spine: The atlantoaxial and atlantooccipital articulations are intact. Stable trace anterolisthesis of C4 on C5. Vertebral body heights are maintained. There is multilevel intervertebral disc space narrowing with endplate osteophyte formation and facet arthropathy. No evidence of acute fracture. No prevertebral soft tissue swelling. Visualized portions of the lung apices are unremarkable. CT/CT cervical spine wo IV con IMPRESSION: 1. No acute intracranial hemorrhage or territorial infarction. 2. No acute maxillofacial fractures. 3. No acute cervical spinal fracture or malalignment.
--- NOTE | ~2023-06-12 | CT_ITS ---
EXAMINATION: CT ABDOMEN AND PELVIS WITHOUT CONTRAST CLINICAL INFORMATION: Worsening diffuse abdominal pain, history of diverticulitis. COMPARISON: CT abdomen/pelvis 06/09/2023. TECHNIQUE: Multidetector volumetric imaging was performed from the superior aspect of the liver through the pubic symphysis. Sagittal and coronal reformatted images were obtained on the technologist's workstation. This CT examination was performed using dose optimization techniques as appropriate, variously including the following: *Automated exposure control *Adjustment of mA and/or kV according to patient size (this includes techniques or standardized protocols for targeted exams where dose is matched to indication/reason for exam; i.e. extremities or head) *Use of iterative reconstruction technique DLP: 412 mGy-cm FINDINGS: The lack of intravenous contrast limits evaluation of the solid visceral organs including the liver, spleen, pancreas, and kidneys. LUNG BASES: No focal consolidation or pleural effusion. Partially seen cardiomegaly with aortic valve replacement. LIVER, GALLBLADDER, AND BILIARY TREE: Again noted innumerable surgical clips overlying the medial surface of the liver/hepatic hilum. Liver is normal in size, attenuation and morphology. No discrete focal lesion in this limited noncontrast examination. Cholecystectomy. Stable extrahepatic biliary ductal dilatation, CBD measuring up to 1.2 cm in diameter. No significant intrahepatic biliary ductal dilatation. PANCREAS: Limited noncontrast examination. Diffuse atrophy. No ductal dilatation. No significant peripancreatic inflammatory changes. SPLEEN: Unremarkable. ADRENAL GLANDS: Unremarkable. KIDNEYS AND URETERS: Atrophic kidneys with cortical thinning. Severe vascular calcifications bilaterally. No hydronephrosis. No perinephric fat stranding. Simple appearing small parapelvic cyst in the right kidney (3:31). A few bilateral too small to characterize cortical hypodensities, statistically favoring to represent simple cysts for which no imaging follow-up is recommended. BLADDER: Decompressed limiting evaluation. GASTROINTESTINAL TRACT: The stomach and the small bowel are nondilated. Appendix is not visualized, though there are no significant regional inflammatory changes to suspect acute appendicitis. Background of severe colonic diverticulosis. Significant amount of colonic stool content. Redemonstration of wall thickening and inflammatory changes centered in the sigmoid colon, now with increased extension into the lower descending colon for instance as visualized on coronal image 50 series 7. A few eccentric pockets of air are noted adjacent to the colonic wall suspicious for microperforation/contained perforation, for instance as visualized posterior to the descending colon on axial image 41 series 3. ABDOMINAL WALL: Right upper abdominal wall scarring. Fat-containing right inguinal hernia. LYMPH NODES: Evaluation is limited due to lack of IV contrast as well as extensive retroperitoneal portosystemic varices. Some prominent pericolonic lymph nodes are seen adjacent to the area of abnormal wall thickening within the GIOVANNI territory, as well as some prominent retroperitoneal lymph nodes. VASCULAR: Severe atherosclerotic disease. Normal caliber abdominal aorta. Again noted tortuous portosystemic collaterals in the left retroperitoneum. PELVIC VISCERA: The ovaries are not well delineated. Normal appearance of the uterus. No free fluid. OSSEOUS STRUCTURES: Stable multilevel compression deformities more pronounced at L1, L3 and L5 with augmentation segment at L5. Severe degenerative changes. Decreased bone mineralization. Partially seen neurostimulator with leads at the level of the lower thoracic spinal canal. CT/CT abdomen pelvis wo IV con IMPRESSION: Wall thickening and inflammatory changes in the sigmoid colon with now progressive extension into the descending colon. A few pockets of eccentric air are noted that appear to be extraluminal concerning for microperforation/contained perforation. Constellation of findings are indicative of worsening acute colitis or stercoral colitis, less likely acute diverticulitis giving long segment of involvement as well as less than usual inflammatory changes for degree of colonic wall thickening. It is important to note that an underlying inflammatory neoplasm cannot be entirely excluded and close attention on follow-up is recommended. Evaluation of lymph nodes is very limited due to lack of IV contrast and very prominent portosystemic collaterals in the retroperitoneum, however accounting for these limitations a few prominent retroperitoneal and GIOVANNI lymph nodes are seen, attention on follow-up is recommended. Stable nonspecific extrahepatic biliary ductal dilatation. Severe renal atrophy. Severe vascular calcifications. Redemonstration of multilevel compression deformities in the thoracolumbar spine, not significantly changed. This critical result was discussed with Dr. Mcdonald at 06/13/2023 12:25 AM and it was ascertained that the content and urgency of the report was understood at the time of direct communication.
[2023-06-12 21:59] VITALS: BP 140/63; BP 178/89; PULSE 73; PULSE 78; RESP 14; TEMP 37.7; O2SAT 96; O2SAT 98; BMI 23.3
--- NOTE | 2023-06-12 22:04 | PHA.MEDREC ---
Pharmacy Consult ? Medication Reconciliation Pharmacy has completed the medication reconciliation. Patient just discharge on 06/10 from [facility] [place]. Med rec completed by this [facility] on admission. Utilized discharge summary for med rec. Lewis SheetsD
[2023-06-12 22:15] LABS: MANUAL DIFF FLAG NO
[2023-06-12 22:18] LABS: Basophils Percent Auto 0.3 % (0-2); Eosinophils Absolute Auto 0.2 X10*3/uL (0.0-0.4); Eosinophils Percent Auto 2.1 % (0-4); Hemoglobin 10.9 g/dl (12.0-16.0); Imm Gran Abs Auto 0.03 X10*3/uL (0.00-0.03); Imm Gran Pct Auto 0.3 % (0.0-0.4); Lymphocytes Percent Auto 9.6 % (20-40); Mean Corpuscular HGB Conc 32.1 g/dl (31.0-35.0); Mean Corpuscular Hemoglobin 30.1 pg (27.0-33.0); Mean Corpuscular Volume 93.9 fL (80.0-98.0); Mean Platelet Volume 10.2 fL (9.4-12.3); Monocytes Absolute Auto 0.9 X10*3/uL (0.1-1.2); Monocytes Percent Auto 8.5 % (2-11); Neutrophils Absolute Auto 8.4 x10*3/uL (2.0-8.3); Neutrophils Percent Auto 79.2 % (45-73); Platelet Count 186 X10*3/uL (160-400); Red Blood Count 3.62 X10*6/uL (4.20-5.50); Red Cell Distribution Width 15.7 % (11.0-16.0); White Blood Count 10.6 X10*3/uL (4.8-10.8)
--- NOTE | 2023-06-12 22:30 | ED.ABDPAIN ---
HPI - Abdominal Pain General Chief Complaint: Abdominal Pain Stated Complaint: abd pain Time Seen by Provider: 06/12/23 22:03 Source: patient and RN notes reviewed Mode of arrival: ambulatory Limitations: no limitations History of Present Illness HPI narrative: This is a 72-year-old female, with a history of arthritis, anemia, ETOH cirrhosis s/p liver transplant on tacrolimus, CAD, COPD, DJD of the thoracic spine, left inguinal hernia with repair, ESRD (with AV fistula to the left dialysis Friday, , Friday), GERD, TAVR, gout,who presents emergency department via EMS due to worsening abdominal pain. Patient reports that she was seen in the emergency room on June 08 due to severe abdominal pain and was diagnosed with diverticulitis. She was admitted for 2 days and was discharged on Augmentin. She has been taking this medication however states that when she arrived home yesterday she states that her abdominal pain worsened significantly. She states that she is unable to move secondary to pain. She also endorses episodes of chest tightness, last had this several hours ago. She reports subjective fevers and chills, chest tightness, nausea, severe abdominal pain. She reports that she had a bowel movement yesterday however this did not alleviate any pain. She reports that about 1 week ago she had a mechanical fall, states that she was leaning over and accidentally bumped her left side of her face on a table. Denies loss of consciousness. Denies any other complaints or concerns at this time. MD elicited complaint: abdominal pain Pertinent past history: none Associated symptoms: denies other symptoms Related Data Home Medications Medication Instructions Recorded Confirmed aspirin 81 mg tablet,delayed 81 mg PO QAM 01/26/20 06/12/23 release allopurinol 100 mg tablet 100 mg PO DAILY 03/08/20 06/12/23 tacrolimus 1 mg capsule, 1 mg PO BID 03/08/20 06/12/23 immediate-release cholecalciferol (vitamin D3) 50 1 tab PO DAILY 08/14/20 06/12/23 mcg (2,000 unit) tablet hydroxyzine HCl 25 mg tablet 1 tab PO TID PRN Itching 08/14/20 06/12/23 ropinirole 0.5 mg tablet 1 tab PO BEDTIME 08/14/20 06/12/23 venlafaxine 25 mg tablet 1 tab PO DAILY 08/14/20 06/12/23 oxycodone 5 mg tablet 1 tab PO BID PRN Moderate Pain 02/01/21 06/12/23 (Scale Score 5-6) clonazepam 1 mg tablet 1 tab PO TUTHSA@0900 PRN anxiety 01/14/22 06/12/23 famotidine 20 mg tablet 1 tab PO BID 01/14/22 06/12/23 midodrine 5 mg tablet 1 tab PO TUTHSA PRN Hypotension 01/14/22 06/12/23 rosuvastatin 5 mg tablet 1 tab PO DAILY 01/14/22 06/12/23 levothyroxine 88 mcg tablet 88 mcg PO DAILY 01/20/23 06/12/23 albuterol sulfate 90 mcg/actuation 1 puff inhalation Q6H PRN wheezing 06/09/23 06/12/23 aerosol inhaler (Ventolin HFA) calcium citrate 200 mg (950 mg) 400 mg PO BID 06/09/23 06/12/23 tablet camphor 4 %-methyl salicylate 30 1 appl topical BEDTIME PRN Muscle 06/09/23 06/12/23 %-menthol 10 % topical cream Pain (Bengay Ultra Strength) sevelamer carbonate 800 mg tablet 800 mg PO TID 06/09/23 06/12/23 Previous Rx's Medication Instructions Recorded metoprolol tartrate 25 mg tablet 25 mg PO BID #0 tabs 02/07/21 amoxicillin 500 mg-potassium 1 tab PO Q12H #10 tabs 06/11/23 clavulanate 125 mg tablet Allergies Allergy/AdvReac Type Severity Reaction Status Date / Time Sulfa (Sulfonamide Allergy Intermediate HIVES Verified 06/09/23 16:25 Antibiotics) Heparin Analogues Allergy Unknown UNKNOWN Verified 06/09/23 16:25 [Heparin Agents] verapamil Allergy Unknown unknown Verified 06/09/23 16:25 Review of Systems Review of Systems Yes all other systems are reviewed and are negative Constitutional: Reports as per [facility] Past Medical History Attestation statement: The following information was validated with the patient. Medical History Patient on waiting list for kidney transplant Gout History of transcatheter aortic valve replacement (TAVR) History of blood transfusion GERD (gastroesophageal reflux disease) Anxiety and depression AV fistula Hemodialysis patient COVID-19 vaccine series completed Murmur Hyperkalemia Left inguinal hernia DJD (degenerative joint disease) of thoracic spine Neuropathy End-stage renal disease (ESRD) COPD (chronic obstructive pulmonary disease) Coronary artery disease Bronchitis Asthma Arthritis Anemia Cirrhosis Surgical History Hx of colonoscopy History of liver transplant History of surgery on arm Social History Social History Household Members: None Housing: Apartment Are you a primary career law clerk to a significant other at home: No Do you presently have visiting nurse or other home services: No Unable to assess alcohol history related to: Unable to respond Alcohol intake: former Year quit: 2008 Comment: pt refused bed alarm Patient Tobacco Use Status: Former Tobacco user Quit Date: 40 years ago Tobacco use type: Cigarette Cigarette Packs Per Day: 2 Cigarettes Per Day: 40.0 Years Smoked: 25 Smoked in Last 30 Days: No e-Cigarette/Vaping Use: Never Used Second Hand Smoke Exposure: No Use of substances other than those prescribed or required for medical reasons: No Advance Directives: Yes Advance Directives on File: Yes Advance Directives Date on File: 03/08/20 service: No Current occupational status: retired Physical Exam ED Vital Signs: Vital Signs - 24 hr 06/12/23 21:59 Temperature 100 F Pulse Rate 73 Respiratory Rate 14 Blood Pressure 140/63 H Pulse Oximetry 96 Oxygen Delivery Method Room Air BMI result Body Mass Index 23.3 Const General: cooperative, comfortable and no acute distress Orientation/consciousness: patient oriented x3 Limitations: no limitations HENMT Other: Cervical midline spine tenderness. Healing ecchymosis noted to the left infraorbital region. no crepitus or step off noted. Head: Yes normal to inspection, Yes normocephalic and Yes atraumatic Ears: hearing grossly normal bilaterally General nose exam: Normal external nose present Face and sinus: Yes normal facial exam Mouth: Normal oral and palatal mucosa present, oropharynx normal and moist mucous membranes Throat: Yes posterior oropharynx normal Eyes General: appearance normal, both eyes and all related structures Eyelids: Yes eyelids normal Conjunctivae: conjunctivae normal Sclerae: sclerae normal Pupils: Equal, round and reactive pupils present EOM: EOMs intact bilaterally Neck Other: No midline spine tenderness Neck: Yes normal visual inspection, Yes full ROM and Yes no lymphadenopathy Lymphatic: no lymphadenopathy noted Chest Chest palpation & inspection: normal inspection of the chest Resp Effort & Inspection: normal respiratory effort and able to speak in complete sentences Auscultation: clear to auscultation bilaterally, no crackles, no rales, no rhonchi and no wheezes Cardio Rate: regular rate Rhythm: regular rhythm Heart sounds: S1 normal heart sound present and S2 normal heart sound present GI Other: Abdomen is soft, however diffusely exquisitely tender even to light palpation, with rebound and guarding. Hypoactive bowel sounds present in all 4 quadrants. Inspection: Yes normal to inspection Skin General skin exam: no rashes or lesions noted Trauma: no lacerations or abrasions Wounds: no wounds Neuro General: patient oriented x3 and moves all extremities Cranial nerves: Yes Equal, round and reactive pupils present Extrem General: Yes normal to inspection Right upper extremity: normal to inspection Left upper extremity: normal to inspection Right lower extremity: normal to inspection Left lower extremity: normal to inspection Course Reevaluation(s) Reevaluation #1: CT head and neck do not show any acute findings. CT scan returns, revealing microperforation. I discussed case with Dr. Bueno, who given her extensive past medical history including liver transplant, he thinks it is ill advised to have her be admitted in the hospital especially if this is a surgical case. He is in agreement with Zosyn. Will medicate with Zosyn 2.25mg IV. Lactic and blood cultures ordered. Patient out to [facility] as this is where she received her liver transplant. She is up-to-date with them, last saw them several weeks ago, and is scheduled to see them next Friday. Time: 01:01 Reevaluation #2: EMS refused, patient will be transferred to [facility] ED to ED transfer, Dr. Florentino. Transfer of care initiated. Time: 01:41 Medical Decision Making Medical Decision Making MDM Narrative: This is a 72-year-old female, with a history of arthritis, anemia, ETOH cirrhosis s/p liver transplant on tacrolimus, CAD, COPD, DJD of the thoracic spine, left inguinal hernia with repair, ESRD (with AV fistula to the left dialysis Friday, , Friday), GERD, TAVR, gout,who presents emergency department via EMS due to worsening abdominal pain. On arrival, patient nontoxic appearing, speaking full sentences. Blood pressure within normal range. She is afebrile. Abdomen is soft but diffusely tender, with rebound and guarding. She was recently admitted to the hospital on June 09, 2023 due to acute diverticulitis. At that time the CT scan revealed circumferential inflammation in the sigmoid colon, favored to correspond with acute diverticulitis. There is no evidence of perforation or abscess at that time. She was discharged after being admitted for 2 days on Augmentin. Upon her arrival back at home she reported worsening abdominal pain. She also reports that she has had episodes of chest pain today. She also had a mechanical fall last week. Plan: Labs, UA, EKG, abdomen and pelvis, head CT, face CT, cervical spine CT Differential Diagnosis Differential Diagnoses: The differential diagnosis associated with the presentation includes Diverticulitis, diverticulosis, bowel perforation, ischemic bowel, bowel obstruction Admission/Observation Consideration of admission/observation: Escalation of care including admission/observation considered Consult Healthcare Provider Management of the patient was discussed with: Insurance Risk Manager Dr. Bueno, surgeon Lab Data MDM Lab Attestation statement: I reviewed the patient's lab results. No leukocytosis, H&H revealing a normocytic anemia at 10.9/34%, creatinine 3.89, calcium 7.1, troponin 17.9, total protein 6.3, albumin 3.0. Lipase 24 06/12/23 22:10 06/12/23 22:10 Labs: Lab Results 06/12/23 06/13/23 Range/Units 22:10 01:33 WBC 10.6 (4.8-10.8) X10*3/uL RBC 3.62 L (4.20-5.50) X10*6/uL Hgb 10.9 L (12.0-16.0) g/dl Hct 34.0 L (37.0-47.0) % MCV 93.9 (80.0-98.0) fL MCH 30.1 (27.0-33.0) pg MCHC 32.1 (31.0-35.0) g/dl RDW 15.7 (11.0-16.0) % Plt Count 186 (160-400) X10*3/uL MPV 10.2 (9.4-12.3) fL Immature Gran % (Auto) 0.3 (0.0-0.4) % Neut % (Auto) 79.2 H (45-73) % Lymph % (Auto) 9.6 L (20-40) % Gonzales % (Auto) 8.5 (2-11) % Eos % (Auto) 2.1 (0-4) % Baso % (Auto) 0.3 (0-2) % Lymph # (Auto) 1.0 L (1.2-4.9) X10*3/uL Gonzales # (Auto) 0.9 (0.1-1.2) X10*3/uL Eos # (Auto) 0.2 (0.0-0.4) X10*3/uL Baso # (Auto) 0.0 (0.0-0.2) X10*3/uL Abs Immat Gran (auto) 0.03 (0.00-0.03) X10*3/uL Absolute Neuts (auto) 8.4 H (2.0-8.3) x10*3/uL Absolute Nucleated RBC 0.000 (0.0-0.012) X10*3/uL Nucleated RBC % (auto) 0.0 (0.0-0.2) /100WBC Sodium 141 (135-145) mmol/L Potassium 3.8 (3.3-5.1) mmol/L Chloride 102 (96-108) mmol/L Carbon Dioxide 31 H (22-29) mmol/L Anion Gap 12 (12-20) BUN 14 (9-16) mg/dL Creatinine 3.89 H (0.5-1.4) mg/dL Estim Creat Clear Calc 13.3 Estimated GFR 11 Random Glucose 113 (60-115) mg/dL Lactic Acid 0.8 (0.5-2.0) mmol/L Calcium 7.1 L (8.4-10.2) mg/dL Total Bilirubin 0.3 (0.0-1.0) mg/dL Direct Bilirubin 0.1 (0.0-0.5) mg/dL AST 15 (5-31) U/L ALT 7 (0-31) U/L Alkaline Phosphatase 94 (39-117) U/L Troponin I High Sens 17.9 H (<3.5-17.0) ng/L Total Protein 6.3 L (6.5-8.0) g/dL Albumin 3.0 L (3.5-5.0) g/dL Lipase 24 (8-78) U/L Independent Interpretation I performed an independent interpretation of an: EKG Interpretation: EKG normal sinus rhythm at a ventricular rate of 69 beats per minute, WI interval 208, QTC 484, no ST elevation or depression. Radiology Impression Discussion of test interpretation with radiology: I have reviewed the radiologist's reading. Radiologist Impression: FINDINGS: The lack of intravenous contrast limits evaluation of the solid visceral organs including the liver, spleen, pancreas, and kidneys. LUNG BASES: No focal consolidation or pleural effusion. Partially seen cardiomegaly with aortic valve replacement. LIVER, GALLBLADDER, AND BILIARY TREE: Again noted innumerable surgical clips overlying the medial surface of the liver/hepatic hilum. Liver is normal in size, attenuation and morphology. No discrete focal lesion in this limited noncontrast examination. Cholecystectomy. Stable extrahepatic biliary ductal dilatation, CBD measuring up to 1.2 cm in diameter. No significant intrahepatic biliary ductal dilatation. PANCREAS: Limited noncontrast examination. Diffuse atrophy. No ductal dilatation. No significant peripancreatic inflammatory changes. SPLEEN: Unremarkable. ADRENAL GLANDS: Unremarkable. KIDNEYS AND URETERS: Atrophic kidneys with cortical thinning. Severe vascular calcifications bilaterally. No hydronephrosis. No perinephric fat stranding. Simple appearing small parapelvic cyst in the right kidney (3:31). A few bilateral too small to characterize cortical hypodensities, statistically favoring to represent simple cysts for which no imaging follow-up is recommended. BLADDER: Decompressed limiting evaluation. GASTROINTESTINAL TRACT: The stomach and the small bowel are nondilated. Appendix is not visualized, though there are no significant regional inflammatory changes to suspect acute appendicitis. Background of severe colonic diverticulosis. Significant amount of colonic stool content. Redemonstration of wall thickening and inflammatory changes centered in the sigmoid colon, now with increased extension into the lower descending colon for instance as visualized on coronal image 50 series 7. A few eccentric pockets of air are noted adjacent to the colonic wall suspicious for microperforation/contained perforation, for instance as visualized posterior to the descending colon on axial image 41 series 3. ABDOMINAL WALL: Right upper abdominal wall scarring. Fat-containing right inguinal hernia. LYMPH NODES: Evaluation is limited due to lack of IV contrast as well as extensive retroperitoneal portosystemic varices. Some prominent pericolonic lymph nodes are seen adjacent to the area of abnormal wall thickening within the GIOVANNI territory, as well as some prominent retroperitoneal lymph nodes. VASCULAR: Severe atherosclerotic disease. Normal caliber abdominal aorta. Again noted tortuous portosystemic collaterals in the left retroperitoneum. PELVIC VISCERA: The ovaries are not well delineated. Normal appearance of the uterus. No free fluid. OSSEOUS STRUCTURES: Stable multilevel compression deformities more pronounced at L1, L3 and L5 with augmentation segment at L5. Severe degenerative changes. Decreased bone mineralization. Partially seen neurostimulator with leads at the level of the lower thoracic spinal canal. CT/CT abdomen pelvis wo IV con IMPRESSION: Wall thickening and inflammatory changes in the sigmoid colon with now progressive extension into the descending colon. A few pockets of eccentric air are noted that appear to be extraluminal concerning for microperforation/contained perforation. Constellation of findings are indicative of worsening acute colitis or stercoral colitis, less likely acute diverticulitis giving long segment of involvement as well as less than usual inflammatory changes for degree of colonic wall thickening. It is important to note that an underlying inflammatory neoplasm cannot be entirely excluded and close attention on follow-up is recommended. Evaluation of lymph nodes is very limited due to lack of IV contrast and very prominent portosystemic collaterals in the retroperitoneum, however accounting for these limitations a few prominent retroperitoneal and GIOVANNI lymph nodes are seen, attention on follow-up is recommended. Stable nonspecific extrahepatic biliary ductal dilatation. Severe renal atrophy. Severe vascular calcifications. Redemonstration of multilevel compression deformities in the thoracolumbar spine, not significantly changed. This critical result was discussed with Dr. Mcdonald at 06/13/2023 12:25 AM and it was ascertained that the content and urgency of the report was understood at the time of direct communication. Dictated By: Hailee Carmen EXAMINATION: NONCONTRAST HEAD CT NONCONTRAST MAXILLOFACIAL CT NONCONTRAST CERVICAL SPINE CT INDICATION INFORMATION: Fall, head strike. COMPARISON: CT head and cervical spine 04/16/2023. TECHNIQUE: Separate noncontrast CT examinations of the head, maxillofacial bones, and cervical spine were performed. Coronal and sagittal images were created for each examination at the technologist workstation. This CT examination was performed using dose optimization techniques as appropriate, variously including the following: *Automated exposure control *Adjustment of mA and/or kV according to patient size (this includes techniques or standardized protocols for targeted exams where dose is matched to indication/reason for exam; i.e. extremities or head) *Use of iterative reconstruction technique DLP: 867, 291 and 304 mGy-cm FINDINGS: Head: There is no evidence of acute intracranial hemorrhage or territorial infarction. No abnormal mass effect or midline shift is seen. Villa to white matter differentiation is well preserved. No extra-axial fluid collections are identified. Stable bifrontal CSF prominence. No hydrocephalus. Proportional prominence of the ventricles and sulcal spaces is consistent with moderate volume loss. Patchy periventricular and deep white matter hypoattenuation is consistent with moderate small vessel ischemic changes. No acute soft tissue abnormality. No calvarial fracture. The mastoid air cells are well aerated. Maxillofacial: No acute maxillofacial fractures are seen. The frontal, maxillary, ethmoid, and sphenoid sinuses are well aerated. The mandibular heads are well-seated in the condylar fossa. Patient is edentulous. The orbits demonstrate a normal appearance bilaterally. The globes are intact, and there are no suspicious findings to suggest retrobulbar hemorrhage. Cervical spine: The atlantoaxial and atlantooccipital articulations are intact. Stable trace anterolisthesis of C4 on C5. Vertebral body heights are maintained. There is multilevel intervertebral disc space narrowing with endplate osteophyte formation and facet arthropathy. No evidence of acute fracture. No prevertebral soft tissue swelling. Visualized portions of the lung apices are unremarkable. CT/CT head/brain wo IV con IMPRESSION: 1. No acute intracranial hemorrhage or territorial infarction. 2. No acute maxillofacial fractures. 3. No acute cervical spinal fracture or malalignment. Dictated By: Hailee Carmen Prescription Management I considered prescription management with: Pain Medication and Antibiotic Chronic Conditions End-stage renal disease, liver transplantation Medications Administered Discontinued Medications Generic Name Dose Route Start Last Admin Trade Name Freq PRN Reason Stop Dose Admin Hydromorphone HCl 1 mg 06/13/23 01:01 06/13/23 01:28 Hydromorphone Hcl 1 Mg/Ml Syringe IVPUSH 06/13/23 01:02 1 mg ONCE ONE Administration Protocol Piperacillin Sod/Tazobactam 50 mls @ 100 mls/hr 06/13/23 00:50 06/13/23 01:27 Sod 2.25 gm/ Sodium Chloride IV 06/13/23 01:19 100 mls/hr ONCE ONE Administration Morphine Sulfate 4 mg 06/12/23 23:04 06/12/23 23:49 Morphine Sulfate 4 Mg/Ml Cartridge IVPUSH 06/12/23 23:05 4 mg ONCE ONE Administration Protocol Critical Care Time Critical Care Time Critical Care Time: Yes Total Critical Care Time: 60 Attestation: I have personally provided critical care time exclusive of time spent on separately billable procedures. Time includes review of lab data, radiology results, discussion with consultants, and monitoring for potential decompensation. Intervention performed as documented. Discharge Plan Discharge Clinical Impression: Bowel perforation Patient Disposition: [facility] Transfer Details: ED to ED transfer > [place] Prescriptions: No Action venlafaxine 25 mg tablet 1 tab PO DAILY ropinirole 0.5 mg tablet 1 tab PO BEDTIME hydroxyzine HCl 25 mg tablet 1 tab PO TID PRN (Reason: Itching) cholecalciferol (vitamin D3) 50 mcg (2,000 unit) tablet 1 tab PO DAILY allopurinol 100 mg tablet 100 mg PO DAILY tacrolimus 1 mg capsule 1 mg PO BID oxycodone 5 mg tablet 1 tab PO BID PRN (Reason: Moderate Pain (Scale Score 5-6)) metoprolol tartrate 25 mg Tablet 25 mg PO BID Qty: 0 0RF Protocol: Hold for SBP/HR < HOLD for SBP < : 90 HOLD for HR < : 60 clonazepam 1 mg tablet 1 tab PO TUTHSA@0900 PRN (Reason: anxiety ) midodrine 5 mg tablet 1 tab PO TUTHSA PRN (Reason: Hypotension) Rx Instructions: ON DIALYSIS DAYS famotidine 20 mg tablet 1 tab PO BID rosuvastatin 5 mg tablet 1 tab PO DAILY albuterol sulfate [Ventolin HFA] 90 mcg/actuation HFA aerosol inhaler 1 puff INHALATION Q6H PRN (Reason: wheezing) calcium citrate 200 mg (950 mg) tablet 400 mg PO BID sevelamer carbonate 800 mg tablet 800 mg PO TID Bengay Ultra Strength 4-30-10 % Cream 1 appl TOPICAL BEDTIME PRN (Reason: Muscle Pain) amoxicillin-pot clavulanate 500-125 mg Tablet 1 tab PO Q12H Qty: 10 0RF levothyroxine 88 mcg tablet 88 mcg PO DAILY aspirin 81 mg tablet,delayed release (DR/EC) 81 mg PO QAM
[2023-06-12 22:37] LABS: Alanine Aminotransferase 7 U/L (0-31); Alkaline Phosphatase 94 U/L (39-117); Anion Gap 12 (12-20); Aspartate Amino Transferase 15 U/L (5-31); Bilirubin Direct 0.1 mg/dL (0.0-0.5); Bilirubin Total 0.3 mg/dL (0.0-1.0); Blood Urea Nitrogen 14 mg/dL (9-16); Calcium 7.1 mg/dL (8.4-10.2); Carbon Dioxide 31 mmol/L (22-29); Chloride 102 mmol/L (96-108); Creatinine Clr Calc Pharmacy 13.3; Estimated Glomerular Filt Rate 11; Glucose Random 113 mg/dL (60-115); Lipase 24 U/L (8-78); Potassium 3.8 mmol/L (3.3-5.1); Sodium 141 mmol/L (135-145); Total Protein 6.3 g/dL (6.5-8.0)
--- NOTE | 2023-06-12 22:48 | ECG_ITS ---
Test Reason : ABD PAIN Blood Pressure : / mmHG Vent. Rate : 069 BPM Atrial Rate : 069 BPM P-R Int : 208 ms QRS Dur : 090 ms QT Int : 452 ms P-R-T Axes : 000 -27 083 degrees QTc Int : 484 ms Normal sinus rhythm Septal infarct (cited on or before 02-FEB-2021) Abnormal ECG When compared with ECG of 09-JUN-2023 16:53, QRS axis Shifted left T wave inversion no longer evident in Inferior leads T wave inversion no longer evident in Anterior leads Referred By: Libby Arita Electronically Signed By:JACKIE KING MD
[2023-06-12 23:18] LABS: Troponin-I High Sensitivity 17.9 ng/L (<3.5-17.0)
[2023-06-12] MEDS: Morphine Sulfate 4 MG/ML CARTRIDGE IVPUSH (23:49)
[2023-06-13] MEDS: Piperacillin Sodium/Tazobactam 2.25 GM in 0.9 % Sodium Chloride 50 ML IV (01:27)
[2023-06-13] MEDS: HYDROmorphone HCl 1 MG/ML SYRINGE IVPUSH ×2 (01:28→03:30)
[2023-06-13 01:50] LABS: Lactic Acid 0.8 mmol/L (0.5-2.0)
[2023-06-13 02:59] VITALS: BP 159/64; PULSE 75; RESP 14; TEMP 37; O2SAT 96
[2023-06-13 03:45] VITALS: BP 159/64; PULSE 75; RESP 14; TEMP 37; O2SAT 96
--- NOTE | 2023-06-13 03:45 | PC.NURSE ---
Report called to [facility] ED. Pt is with EMS at this time.
== END 2023-06-13 03:46 | disposition short-term general hospital (02) ==
PROVIDERS: Physician Assistant Medical; Emergency Provider Emergency Medicine; PCP Pediatrics
DX: S09.90XA Unspecified injury of head, initial encounter (principal); K63.1 Perforation of intestine (nontraumatic); R10.9 Unspecified abdominal pain; R51.9 Headache, unspecified; M54.2 Cervicalgia; R07.89 Other chest pain; W01.10XA Fall on same level from slipping, tripping and stumbling with subsequent striking against unspecified object, initial encounter; Y93.9 Activity, unspecified; Y92.9 Unspecified place or not applicable; Y99.8 Other external cause status; Z79.899 Other long term (current) drug therapy
CPT/HCPCS: 36415; 70450; 70486; 72125; 74176; 80048; 80076; 83605; 83690; 84484; 85025; 87040; 93005; 96365; 96375; 96376; 99285; J1170; J2270; J2543

== ENCOUNTER → 2023-06-12 22:48 | Outpatient (BNV) | payer OTHER, SELFPAY | PROVIDERS: Emergency Provider Emergency Medicine; PCP Pediatrics; Visit Provider Internal Medicine Cardiovascular Disease | DX: R94.31 Abnormal electrocardiogram [ECG] [EKG] (principal) | CPT/HCPCS: 93010 ==

== ENCOUNTER 2023-06-27 11:15 | Outpatient (REF) | payer OTHER, SELFPAY ==
[2023-06-27 15:23] LABS: CDiff Gene PCR NEGATIVE (Negative)
== END 2023-06-27 11:16 | disposition home or self-care (01) ==
LOC: HO.CHCLNP 11:15
PROVIDERS: Visit Provider Pediatrics
DX: R19.5 Other fecal abnormalities (principal)
CPT/HCPCS: 87493

== ENCOUNTER 2023-07-15 05:40 | Inpatient (IN) | payer OTHER, SELFPAY ==
--- NOTE | 2023-07-15 | ECG_ITS ---
Test Reason : SOB Blood Pressure : / mmHG Vent. Rate : 075 BPM Atrial Rate : 075 BPM P-R Int : 224 ms QRS Dur : 090 ms QT Int : 406 ms P-R-T Axes : -29 -28 084 degrees QTc Int : 453 ms Sinus rhythm with 1st degree A-V block Septal infarct (cited on or before 02-FEB-2021) Abnormal ECG When compared with ECG of 12-JUN-2023 23:20, No significant change was found Referred By: Generic ED Physician Electronically Signed By:NEY VIVEROS
--- NOTE | ~2023-07-15 | XR_ITS ---
EXAMINATION: XR CHEST CLINICAL INFORMATION: Shortness of breath COMPARISON: 04/16/2023 TECHNIQUE: Frontal view of the chest was obtained. FINDINGS: Lung volumes are symmetric. There is symmetric prominence of the central vasculature and surrounding interstitium along with heterogeneous infrahilar opacities, suspicious for vascular congestion and interstitial edema. No evidence of pneumothorax. Trace pleural effusions cannot be excluded. The cardiomediastinal silhouette is stable. TAVR prosthesis noted. Leads overlie the lower thoracic spine. Multiple clips overlie the upper abdomen. No acute osseous findings are seen. XR/XR chest 1V IMPRESSION: Findings suspicious for vascular congestion and interstitial edema.
[2023-07-15 05:50] VITALS: BP 175/88; BP 182/88; PULSE 74; PULSE 76; RESP 20; TEMP 36.6; O2SAT 94; O2SAT 96; BMI 24.1
[2023-07-15 06:44] LABS: MANUAL DIFF FLAG NO
[2023-07-15 06:49] LABS: Troponin-I High Sensitivity 18.3 ng/L (<3.5-17.0)
[2023-07-15 06:52] LABS: Basophils Absolute Auto 0.1 X10*3/uL (0.0-0.2); Basophils Percent Auto 0.6 % (0-2); Eosinophils Absolute Auto 0.3 X10*3/uL (0.0-0.4); Eosinophils Percent Auto 3.2 % (0-4); Hematocrit 33.1 % (37.0-47.0); Hemoglobin 10.4 g/dl (12.0-16.0); Imm Gran Abs Auto 0.03 X10*3/uL (0.00-0.03); Imm Gran Pct Auto 0.4 % (0.0-0.4); Lymphocytes Absolute Auto 1.3 X10*3/uL (1.2-4.9); Lymphocytes Percent Auto 15.5 % (20-40); Mean Corpuscular HGB Conc 31.4 g/dl (31.0-35.0); Mean Corpuscular Volume 95.4 fL (80.0-98.0); Mean Platelet Volume 10.8 fL (9.4-12.3); Monocytes Absolute Auto 0.7 X10*3/uL (0.1-1.2); Monocytes Percent Auto 8.4 % (2-11); Neutrophils Absolute Auto 6.2 x10*3/uL (2.0-8.3); Neutrophils Percent Auto 71.9 % (45-73); Platelet Count 244 X10*3/uL (160-400); Red Blood Count 3.47 X10*6/uL (4.20-5.50); Red Cell Distribution Width 16.8 % (11.0-16.0); White Blood Count 8.6 X10*3/uL (4.8-10.8)
[2023-07-15 06:52] LABS: Alanine Aminotransferase 7 U/L (0-31); Albumin Level 2.8 g/dL (3.5-5.0); Alkaline Phosphatase 97 U/L (39-117); Anion Gap 15 (12-20); Aspartate Amino Transferase 29 U/L (5-31); Bilirubin Total 0.4 mg/dL (0.0-1.0); Blood Urea Nitrogen 28 mg/dL (9-16); Calcium 7.5 mg/dL (8.4-10.2); Carbon Dioxide 25 mmol/L (22-29); Chloride 103 mmol/L (96-108); Creatinine Clr Calc Pharmacy 7.6; Estimated Glomerular Filt Rate 6; Glucose Random 124 mg/dL (60-115); Potassium 4.4 mmol/L (3.3-5.1); Sodium 139 mmol/L (135-145); Total Protein 6.5 g/dL (6.5-8.0)
[2023-07-15 07:05] LABS: Influenza A PCR NEGATIVE (Negative); Influenza B PCR NEGATIVE (Negative); Resp Syncy Virus RNA Qual PCR NEGATIVE (Negative); SARS COV2 PCR INHOUSE NEGATIVE (Negative)
--- NOTE | 2023-07-15 07:18 | ED_ITS ---
HPI - SOB/Dyspnea General Chief Complaint: Dyspnea Stated Complaint: SOB Time Seen by Provider: 07/15/23 06:58 Source: patient and EMS Mode of arrival: EMS Limitations: no limitations History of Present Illness HPI Narrative: 2 days of shortness of breath, patient with liver transplant, on dialysis, and recently admitted to [facility] for diverticulitis. Patient denies fever or cough. MD elicited complaint: shortness of breath Pertinent past history: COPD and congestive heart failure Onset (ago): day(s) Related Data Home Medications ?Medication ?Instructions ?Recorded ?Confirmed aspirin 81 mg tablet,delayed 81 mg PO QAM 01/26/20 06/12/23 release allopurinol 100 mg tablet 100 mg PO DAILY 03/08/20 06/12/23 tacrolimus 1 mg capsule, 1 mg PO BID 03/08/20 06/12/23 immediate-release cholecalciferol (vitamin D3) 50 1 tab PO DAILY 08/14/20 06/12/23 mcg (2,000 unit) tablet hydroxyzine HCl 25 mg tablet 1 tab PO TID PRN Itching 08/14/20 06/12/23 ropinirole 0.5 mg tablet 1 tab PO BEDTIME 08/14/20 06/12/23 venlafaxine 25 mg tablet 1 tab PO DAILY 08/14/20 06/12/23 oxycodone 5 mg tablet 1 tab PO BID PRN Moderate Pain 02/01/21 06/12/23 (Scale Score 5-6) clonazepam 1 mg tablet 1 tab PO TUTHSA@0900 PRN anxiety 01/14/22 06/12/23 famotidine 20 mg tablet 1 tab PO BID 01/14/22 06/12/23 midodrine 5 mg tablet 1 tab PO TUTHSA PRN Hypotension 01/14/22 06/12/23 rosuvastatin 5 mg tablet 1 tab PO DAILY 01/14/22 06/12/23 levothyroxine 88 mcg tablet 88 mcg PO DAILY 01/20/23 06/12/23 albuterol sulfate 90 mcg/actuation 1 puff inhalation Q6H PRN wheezing 06/09/23 06/12/23 aerosol inhaler (Ventolin HFA) calcium citrate 200 mg (950 mg) 400 mg PO BID 06/09/23 06/12/23 tablet camphor 4 %-methyl salicylate 30 1 appl topical BEDTIME PRN Muscle 06/09/23 06/12/23 %-menthol 10 % topical cream Pain (Bengay Ultra Strength) sevelamer carbonate 800 mg tablet 800 mg PO TID 06/09/23 06/12/23 Previous Rx's ?Medication ?Instructions ?Recorded metoprolol tartrate 25 mg tablet 25 mg PO BID #0 tabs 02/07/21 amoxicillin 500 mg-potassium 1 tab PO Q12H #10 tabs 06/11/23 clavulanate 125 mg tablet Allergies Allergy/AdvReac Type Severity Reaction Status Date / Time Sulfa (Sulfonamide Allergy Intermediate HIVES Verified 07/15/23 05:56 Antibiotics) Heparin Analogues Allergy Unknown UNKNOWN Verified 07/15/23 05:56 [Heparin Agents] verapamil Allergy Unknown unknown Verified 07/15/23 05:56 Review of Systems 2 Review of Systems: Yes all other systems are reviewed and are negative Neurologic: Denies Sensory deficit (Neuro) PMFSH Past Medical History Medical History Patient on waiting list for kidney transplant Gout History of transcatheter aortic valve replacement (TAVR) History of blood transfusion GERD (gastroesophageal reflux disease) Anxiety and depression AV fistula Hemodialysis patient COVID-19 vaccine series completed Murmur Hyperkalemia Left inguinal hernia DJD (degenerative joint disease) of thoracic spine Neuropathy End-stage renal disease (ESRD) COPD (chronic obstructive pulmonary disease) Coronary artery disease Bronchitis Asthma Arthritis Anemia Cirrhosis Surgical History Hx of colonoscopy History of liver transplant History of surgery on arm Social History Social History Household Members: None Housing: Apartment Are you a primary director career to a significant other at home: No Do you presently have visiting nurse or other home services: No Unable to assess alcohol history related to: Unable to respond Alcohol intake: former Year quit: 2008 Comment: pt refused bed alarm Patient Tobacco Use Status: Former Tobacco user Quit Date: 40 years ago Tobacco use type: Cigarette Cigarette Packs Per Day: 2 Cigarettes Per Day: 40.0 Years Smoked: 25 Smoked in Last 30 Days: No e-Cigarette/Vaping Use: Never Used Second Hand Smoke Exposure: No Use of substances other than those prescribed or required for medical reasons: No Advance Directives: Yes Advance Directives on File: Yes Advance Directives Date on File: 03/08/20 service: No Current occupational status: retired Physical Exam 2 Vital Signs: Vital Signs: Last Vital Signs Temp 97.9 F 07/15/23 05:50 Pulse 74 07/15/23 08:07 Resp 20 07/15/23 08:07 BP 152/78 H 07/15/23 08:07 Pulse Ox 94 07/15/23 08:07 O2 Del Method Room Air 07/15/23 08:07 BMI result Body Mass Index 24.1 Const: Other: chronically ill female looking older than stated age Nutritional Appearance: average body habitus Orientation/consciousness: oriented to person and patient oriented x3 Limitations: no limitations HEENT: Head: Yes normal to inspection Ears: external ears normal General nose exam: Normal external nose present Mouth: Normal oral and palatal mucosa present and oropharynx normal Throat: Yes posterior oropharynx normal Eyes: General: appearance normal, both eyes and all related structures Neck: Other: supple Neck: Yes normal visual inspection Chest: Chest palpation & inspection: normal inspection of the chest Resp: Other: Bilateral rales in lower lobes Cardio: Jugular venous distension: no JVD Rate: regular rate Rhythm: r egular rhythm Heart sounds: S1 normal heart sound present and S2 normal heart sound present GI: Inspection: Yes normal to inspection Palpation (GI): Soft to palpation, nontender and No hepatosplenomegaly present Auscultation: normal bowel sounds : General: Yes no CVA tenderness Back/Spine/Pelvis: Back: no CVA tenderness Skin: General skin exam: no rashes or lesions noted Neuro: General: oriented to person and patient oriented x3 Cranial nerves: Yes CN's II-XII intact bilaterally Motor exam (neuro): 5/5 motor strength present throughout Sensory Exam: No Sensory deficit (Neuro) Extrem: Other: good thrill left arm Psych: Appearance: grossly normal Course Reevaluation(s) Reevaluation #1: Discussed with Dr. Tucker will admit for dialysis, as patient with fluid in her lungs and needs dialysis, no infection Time: 08:41 Reevaluation #2: I spent 40 minutes of critical care, with interventions, assessments, speaking to patient, consultants, and family. Time: 09:07 Medical Decision Making Differential Diagnosis Differential Diagnoses: The differential diagnosis associated with the presentation includes (Pneumonia, CHF, fluid overload, COPD exacerbation) Admission/Observation Consideration of admission/observation: Escalation of care including admission/observation considered (upon arrival patient considered for admission) Consult Healthcare Provider Management of the patient was discussed with: Deep Submergence Vehicle Crewmember (Nephrology: Dr. Tucker) Lab Data 07/15/23 06:33 07/15/23 06:19 Labs: Lab Results 07/15/23 07/15/23 07/15/23 Range/Units 06:19 06:33 06:37 WBC 8.6 (4.8-10.8) X10*3/uL RBC 3.47 L (4.20-5.50) X10*6/uL Hgb 10.4 L (12.0-16.0) g/dl Hct 33.1 L (37.0-47.0) % MCV 95.4 (80.0-98.0) fL MCH 30.0 (27.0-33.0) pg MCHC 31.4 (31.0-35.0) g/dl RDW 16.8 H (11.0-16.0) % Plt Count 244 D (160-400) X10*3/uL MPV 10.8 (9.4-12.3) fL Immature Gran % (Auto) 0.4 (0.0-0.4) % Neut % (Auto) 71.9 (45-73) % Lymph % (Auto) 15.5 L (20-40) % Evans % (Auto) 8.4 (2-11) % Eos % (Auto) 3.2 (0-4) % Baso % (Auto) 0.6 (0-2) % Lymph # (Auto) 1.3 (1.2-4.9) X10*3/uL Evans # (Auto) 0.7 (0.1-1.2) X10*3/uL Eos # (Auto) 0.3 (0.0-0.4) X10*3/uL Baso # (Auto) 0.1 (0.0-0.2) X10*3/uL Abs Immat Gran (auto) 0.03 (0.00-0.03) X10*3/uL Absolute Neuts (auto) 6.2 (2.0-8.3) x10*3/uL Absolute Nucleated RBC 0.000 (0.0-0.012) X10*3/uL Nucleated RBC % (auto) 0.0 (0.0-0.2) /100WBC Hold Blue Top SEE NOTE Sodium 139 (135-145) mmol/L Potassium 4.4 (3.3-5.1) mmol/L Chloride 103 (96-108) mmol/L Carbon Dioxide 25 (22-29) mmol/L Anion Gap 15 (12-20) BUN 28 H (9-16) mg/dL Creatinine 6.87 H* (0.5-1.4) mg/dL Estim Creat Clear Calc 7.6 Estimated GFR 6 Random Glucose 124 H (60-115) mg/dL Calcium 7.5 L (8.4-10.2) mg/dL Total Bilirubin 0.4 (0.0-1.0) mg/dL AST 29 (5-31) U/L ALT 7 (0-31) U/L Alkaline Phosphatase 97 (39-117) U/L Troponin I High Sens 18.3 H (<3.5-17.0) ng/L Total Protein 6.5 (6.5-8.0) g/dL Albumin 2.8 L (3.5-5.0) g/dL Hold Green Top See Note Influenza Type A (PCR) NEGATIVE (Negative) Influenza Type B (PCR) NEGATIVE (Negative) RSV RNA Qual (PCR) NEGATIVE (Negative) SARS-CoV-2 RNA (RT-PCR) NEGATIVE (Negative) Independent Interpretation I performed an independent interpretation of an: EKG (sinus rate 75, old inferior and septal [place]) and Plain X-Ray (CXR: edema) Prescription Management I considered prescription management with: Antibiotic (xray more consistent with CHF than pneumonia) Chronic Conditions Patient?s care impacted by: Diabetes, Hypertension and Other (dialysis, liver transplant) Discharge Plan Discharge Clinical Impression: Congestive heart failure, ESRD (end stage renal disease) on dialysis Patient Disposition: Admitted As Inpatient Print Language: Mongolian
[2023-07-15 08:07] VITALS: BP 152/78; PULSE 74; RESP 20; O2SAT 94
--- NOTE | 2023-07-15 10:12 | P.HPHOSP_ITS ---
History of Present Illness Date of Service: 07/15/23 Attending physician on admission: Kailee Vasquez Chief Complaint: sob 72-year-old female with history of CAD with history of NSTEMI, asthma/COPD overlap, hepatic cirrhosis, ESRD on dialysis awaiting renal transplant with AV fistula in placed, and heart failure reduced ejection fraction presented to the ED earlier today for evaluation of worsening dyspnea with exertion ongoing for 2.5 days. She is also reporting 10/10 retrosternal chest pressure that is nonradiating. There is also orthopnea, no ble edema or weight gain. Denies any shortness a breath at rest, lightheadedness, palpitations, or diaphoresis. No nausea or vomiting. She does make a small amount of urine and is on dialysis scheduled for Friday, /Friday. Since arrival, vital signs stable. Hematology studies significant for a stable normocytic anemia with H/H 10.4/33.1%. Creatinine 6.87, BUN 28, electrolyte levels normal. Hepatic function within normal limits. Initial troponin 18.3, repeat pending. Negative for COVID-19, RSV, influenza. Chest x-ray shows vascular congestion interstitial edema. EKG shows sinus rhythm with first-degree AV aron block but no acute ischemic changes. ED discuss case with nephrology recommending admission for volume overload and dialysis. Review of Systems 2 Review of Systems: General: No fevers, malaise, unintentional weight loss HEENT: No blurred vision, diplopia. No sore throat, nasal congestion, rhinorrhea, sinus pain, ear pain Cardiovascular: +chest pain. No palpitations, or leg edema Respiratory:dyspnea. No wheezing, cough GI: No abdominal pain, nausea, vomiting, diarrhea, constipation, melena, hematochezia : No dysuria, hematuria, increased urinary frequency, decreased urinary output MSK: No myalgia, back pain Neuro: No headaches, weakness, paresthesias Skin: No rashes or lesions [facility] Medical History Patient on waiting list for kidney transplant Gout History of transcatheter aortic valve replacement (TAVR) History of blood transfusion GERD (gastroesophageal reflux disease) Anxiety and depression AV fistula Hemodialysis patient COVID-19 vaccine series completed Murmur Hyperkalemia Left inguinal hernia DJD (degenerative joint disease) of thoracic spine Neuropathy End-stage renal disease (ESRD) COPD (chronic obstructive pulmonary disease) Coronary artery disease Bronchitis Asthma Arthritis Anemia Cirrhosis Surgical History Hx of colonoscopy History of liver transplant History of surgery on arm Social History Household Members: None Housing: Apartment Are you a primary manager care to a significant other at home: No Do you presently have visiting nurse or other home services: No Unable to assess alcohol history related to: Unable to respond Alcohol intake: former Year quit: 2008 Comment: pt refused bed alarm Patient Tobacco Use Status: Former Tobacco user Quit Date: 40 years ago Tobacco use type: Cigarette Cigarette Packs Per Day: 2 Cigarettes Per Day: 40.0 Years Smoked: 25 Smoked in Last 30 Days: No e-Cigarette/Vaping Use: Never Used Second Hand Smoke Exposure: No Use of substances other than those prescribed or required for medical reasons: No Advance Directives: Yes Advance Directives on File: Yes Advance Directives Date on File: 03/08/20 service: No Current occupational status: retired [employer] Allergies Allergy/AdvReac Type Severity Reaction Status Date / Time Sulfa (Sulfonamide Allergy Intermediate HIVES Verified 07/15/23 05:56 Antibiotics) Heparin Analogues Allergy Unknown UNKNOWN Verified 07/15/23 05:56 [Heparin Agents] verapamil Allergy Unknown unknown Verified 07/15/23 05:56 Home Medications ?Medication ?Instructions ?Recorded ?Confirmed ?Last Taken ?Type aspirin 81 mg tablet,delayed 81 mg PO DAILY 01/26/20 07/15/23 07/14/23 History release allopurinol 100 mg tablet 100 mg PO DAILY 03/08/20 07/15/23 07/14/23 History cholecalciferol (vitamin D3) 50 1 tab PO DAILY 08/14/20 07/15/23 07/14/23 History mcg (2,000 unit) tablet hydroxyzine HCl 25 mg tablet 1 tab PO TID PRN Itching 08/14/20 07/15/23 04/04/23 History ropinirole 0.5 mg tablet 1 tab PO BEDTIME 08/14/20 07/15/23 07/14/23 History venlafaxine 25 mg tablet 1 tab PO DAILY 0507/15/23 07/14/23 History oxycodone 5 mg tablet 1 tab PO BID PRN Moderate Pain 02/01/21 07/15/23 04/04/23 History (Scale Score 5-6) clonazepam 1 mg tablet 1 tab PO DAILY PRN anxiety 01/14/22 07/15/23 04/04/23 History famotidine 20 mg tablet 1 tab PO BID 01/14/22 07/15/23 07/14/23 History rosuvastatin 5 mg tablet 1 tab PO DAILY 01/14/22 07/15/23 07/14/23 History levothyroxine 88 mcg tablet 88 mcg PO DAILY 01/20/23 07/15/23 07/14/23 History albuterol sulfate 90 mcg/actuation 1 puff inhalation Q6H PRN wheezing 06/09/23 07/15/23 Unknown History aerosol inhaler (Ventolin HFA) calcium citrate 200 mg (950 mg) 200 mg PO BID 06/09/23 07/15/23 07/14/23 History tablet sevelamer carbonate 800 mg tablet 800 mg PO BIDWMEAL 06/09/23 07/15/23 07/14/23 History tacrolimus 0.5 mg capsule, 0.5 mg PO BID 07/15/23 07/15/23 07/14/23 History immediate-release Physical Exam 2 Vital Signs and Narrative: Vital Signs: Last Vital Signs Temp 97.9 F 07/15/23 05:50 Pulse 74 07/15/23 08:07 Resp 20 07/15/23 08:07 BP 152/78 H 07/15/23 08:07 Pulse Ox 94 07/15/23 08:07 O2 Del Method Room Air 07/15/23 08:07 BMI result Body Mass Index 24.1 Constitutional - Awake and Alert, No apparent distress Eyes - PERRLA, EOMI Cardiovascular - S1S2, RRR, No edema Respiratory - Normal lung expansion, Normal respiratory effort, No respiratory distress, scattered crackles bilaterally Gastrointestinal - NT / ND; +BS; No rebound or guarding Extremities - no calf tenderness bilaterally, no swelling. LUE with AV fistula Skin - Warm/Dry Neurological - Alert & oriented x3 Psychological - Appropriate affect Results Labs 07/15/23 06:33 07/15/23 06:19 Labs: Laboratory Results - last 24 hr 07/15/23 07/15/23 07/15/23 06:19 06:33 06:37 MCV 95.4 MCH 30.0 MCHC 31.4 RDW 16.8 H Plt Count 244 D MPV 10.8 Immature Gran % (Auto) 0.4 Neut % (Auto) 71.9 Lymph % (Auto) 15.5 L Cassia % (Auto) 8.4 Eos % (Auto) 3.2 Baso % (Auto) 0.6 Lymph # (Auto) 1.3 Cassia # (Auto) 0.7 Eos # (Auto) 0.3 Baso # (Auto) 0.1 Abs Immat Gran (auto) 0.03 Absolute Neuts (auto) 6.2 Absolute Nucleated RBC 0.000 Nucleated RBC % (auto) 0.0 Hold Blue Top SEE NOTE Anion Gap 15 Estim Creat Clear Calc 7.6 Estimated GFR 6 Random Glucose 124 H Calcium 7.5 L Total Bilirubin 0.4 AST 29 ALT 7 Alkaline Phosphatase 97 Troponin I High Sens 18.3 H Total Protein 6.5 Albumin 2.8 L Hold Green Top See Note Influenza Type A (PCR) NEGATIVE Influenza Type B (PCR) NEGATIVE RSV RNA Qual (PCR) NEGATIVE SARS-CoV-2 RNA (RT-PCR) NEGATIVE Imaging Radiologist's Impressions: Impressions Chest X-Ray 07/15/23 06:02 IMPRESSION: Findings suspicious for vascular congestion and interstitial edema. Assessment and Plan (1) ESRD (end stage renal disease) on dialysis: Status: Acute (2) CHF exacerbation: Status: Acute Plan 72-year-old female with history of CAD with history of NSTEMI, asthma/COPD overlap, hepatic cirrhosis, ESRD on dialysis awaiting renal transplant with AV fistula in placed, and heart failure reduced ejection fraction admitted for acute CHF exacerbation #ACute CHF exacerbation -CXR shows vascular congestion and interstitial edema -per nephrology will be dialyzed today -reviewed last echocardiogram which showed decreased LV systolic function with EF 45-50% -cardiac diet -strict I&O -follow renal function, electrolyte levels # ESRD on dialysis -creatinine 6.87, BUN 28. Electrolyte levels normal. -per nephrology, HD scheduled for today. AV fistula left upper extremity -continue potassium binders -cardiac diet -follow renal function, lytes # typical chest pain -suspect secondary to CHF exacerbation -initial troponin 18, repeat pending -EKG without any acute ischemic changes -monitor on telemetry # asthma/COPD overlap -no acute exacerbation -albuterol p.r.n. # CAD -as above -continue beta-pamela, statin, asa DVT prophylaxis- SCPs, early ambulation FUll code Given patient's significant volume overload with ongoing dyspnea, patient will require hemodialysis and close monitoring of renal function and electrolyte levels as well as strict monitoring of I and O Quality Stroke Does the patient have a stroke diagnosis?: No VTE Prior VTE?: No VTE Risk Level:: Medical - moderate - high VTE Device Contraindication: Treatment Not Indicated VTE Drug Contraindication: N/A - Med Ordered
[2023-07-15 11:31] LABS: Troponin-I High Sensitivity 19.2 ng/L (<3.5-17.0)
--- NOTE | 2023-07-15 11:53 | PC.NURSE ---
Pt to dialysis at this time
--- NOTE | 2023-07-15 12:16 | PM.CNNEP ---
History of Present Illness Reason for Consult Consult date: 07/16/23 Chief Complaint Chief complaint: chf exacerbation esrd needing dialysia History of Present Illness Narrative: 72-year-old female with history of CAD with history of NSTEMI, asthma/COPD overlap, hepatic cirrhosis, ESRD on dialysis awaiting renal transplant with AV fistula in placed, and heart failure reduced ejection fraction presented to the ED earlier today for evaluation of worsening dyspnea with exertion ongoing for 2.5 days. She is also reporting 10/10 retrosternal chest pressure that is nonradiating. There is also orthopnea, no ble edema or weight gain. Denies any shortness a breath at rest, lightheadedness, palpitations, or diaphoresis. No nausea or vomiting. She does make a small amount of urine and is on dialysis scheduled for Friday, /Friday. Since arrival, vital signs stable. Hematology studies significant for a stable normocytic anemia with H/H 10.4/33.1%. Creatinine 6.87, BUN 28, electrolyte levels normal. Hepatic function within normal limits Last HD was on Friday. USually gets HD TTS at [facility] and under the care of Review of Systems Review of Systems Yes all other systems are reviewed and are negative Denies Sensory deficit (Neuro) PMFSH Past Medical History Medical History Patient on waiting list for kidney transplant Gout History of transcatheter aortic valve replacement (TAVR) History of blood transfusion GERD (gastroesophageal reflux disease) Anxiety and depression AV fistula Hemodialysis patient COVID-19 vaccine series completed Murmur Hyperkalemia Left inguinal hernia DJD (degenerative joint disease) of thoracic spine Neuropathy End-stage renal disease (ESRD) COPD (chronic obstructive pulmonary disease) Coronary artery disease Bronchitis Asthma Arthritis Anemia Cirrhosis Surgical History Surgical History Hx of colonoscopy History of liver transplant History of surgery on arm Social History Social History Household Members: None Housing: Apartment Are you a primary memory care program resident to a significant other at home: No Do you presently have visiting nurse or other home services: No Unable to assess alcohol history related to: Unable to respond Alcohol intake: former Year quit: 2008 Comment: pt refused bed alarm Patient Tobacco Use Status: Former Tobacco user Quit Date: 40 years ago Tobacco use type: Cigarette Cigarette Packs Per Day: 2 Cigarettes Per Day: 40.0 Years Smoked: 25 Smoked in Last 30 Days: No e-Cigarette/Vaping Use: Never Used Second Hand Smoke Exposure: No Use of substances other than those prescribed or required for medical reasons: No Advance Directives: Yes Advance Directives on File: Yes Advance Directives Date on File: 03/08/20 Nutrition Risks: No Nutritional Risk service: No Current occupational status: retired Meds Allergies Allergy/AdvReac Type Severity Reaction Status Date / Time Sulfa (Sulfonamide Allergy Intermediate HIVES Verified 07/15/23 05:56 Antibiotics) Heparin Analogues Allergy Unknown UNKNOWN Verified 07/15/23 05:56 [Heparin Agents] verapamil Allergy Unknown unknown Verified 07/15/23 05:56 Active Medications: Current Medications Acetaminophen (Acetaminophen 325 Mg Tablet) 650 mg PO Q6H PRN PRN Reason: Pain, Mild (Pain Scale 1-3) Ondansetron HCl (Ondansetron Hcl 4 Mg/2 Ml Vial) 4 mg IVPUSH Q8H PRN PRN Reason: Nausea and Vomiting Senna (Sennosides 8.6 Mg Tablet) 17.2 mg PO BEDTIME PRN PRN Reason: Constipation Home Medications ?Medication ?Instructions ?Recorded ?Confirmed ?Last Taken ?Type aspirin 81 mg tablet,delayed 81 mg PO DAILY 01/26/20 07/15/23 07/14/23 History release allopurinol 100 mg tablet 100 mg PO DAILY 03/08/20 07/15/23 07/14/23 History cholecalciferol (vitamin D3) 50 1 tab PO DAILY 08/14/20 07/15/23 07/14/23 History mcg (2,000 unit) tablet hydroxyzine HCl 25 mg tablet 1 tab PO TID PRN Itching 08/14/20 07/15/23 04/04/23 History ropinirole 0.5 mg tablet 1 tab PO BEDTIME 08/14/20 07/15/23 07/14/23 History venlafaxine 25 mg tablet 1 tab PO DAILY 08/14/20 07/15/23 07/14/23 History oxycodone 5 mg tablet 1 tab PO BID PRN Moderate Pain 02/01/21 07/15/23 04/04/23 History (Scale Score 5-6) clonazepam 1 mg tablet 1 tab PO DAILY PRN anxiety 01/14/22 07/15/23 04/04/23 History famotidine 20 mg tablet 1 tab PO BID 01/14/22 07/15/23 07/14/23 History rosuvastatin 5 mg tablet 1 tab PO DAILY 01/14/22 07/15/23 07/14/23 History levothyroxine 88 mcg tablet 88 mcg PO DAILY 01/20/23 07/15/23 07/14/23 History albuterol sulfate 90 mcg/actuation 1 puff inhalation Q6H PRN wheezing 06/09/23 07/15/23 Unknown History aerosol inhaler (Ventolin HFA) calcium citrate 200 mg (950 mg) 200 mg PO BID 06/09/23 07/15/23 07/14/23 History tablet sevelamer carbonate 800 mg tablet 800 mg PO BIDWMEAL 06/09/23 07/15/23 07/14/23 History tacrolimus 0.5 mg capsule, 0.5 mg PO BID 07/15/23 07/15/23 07/14/23 History immediate-release Physical Exam Vital Signs: Last Vital Signs Temp 97.9 F 07/15/23 05:50 Pulse 74 07/15/23 08:07 Resp 20 07/15/23 08:07 BP 152/78 H 07/15/23 08:07 Pulse Ox 94 07/15/23 08:07 O2 Del Method Room Air 07/15/23 08:07 BMI result Body Mass Index 24.1 Const Other: chronically ill female looking older than stated age Nutritional Appearance: average body habitus Orientation/consciousness: oriented to person and patient oriented x3 Limitations: no limitations Eyes General: appearance normal, both eyes and all related structures Neck Other: supple Neck: Yes normal visual inspection Chest Chest palpation & inspection: normal inspection of the chest Resp Other: Bilateral rales in lower lobes Cardio Jugular venous distension: no JVD Rate: regular rate Rhythm: regular rhythm Heart sounds: S1 normal heart sound present and S2 normal heart sound present GI Inspection: Yes normal to inspection Palpation (GI): Soft to palpation, nontender and No hepatosplenomegaly present Auscultation: normal bowel sounds General: Yes no CVA tenderness Back/Spine/Pelvis Back: no CVA tenderness Skin General skin exam: no rashes or lesions noted Neuro General: oriented to person and patient oriented x3 Cranial nerves: Yes CN's II-XII intact bilaterally Motor exam (neuro): 5/5 motor strength present throughout Sensory Exam: No Sensory deficit (Neuro) Extrem Other: good thrill left arm Psych Appearance: grossly normal Results Lab Results 07/15/23 06:33 07/16/23 06:11 Lab results: Chemistry 07/15/23 06:19 Sodium 139 Potassium 4.4 Carbon Dioxide 25 BUN 28 H Creatinine 6.87 H* Calcium 7.5 L Hematology 07/15/23 06:33 WBC 8.6 Hgb 10.4 L Plt Count 244 D Assessment and Plan (1) ESRD (end stage renal disease) on dialysis: Status: Acute Plan Elderly woman with end stage renal disease presenting with fluid overload. She is due for dialysis on Saturdays. I will arrange for dialysis today and remove fluid as tolerated. 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 Concur with other medical management and we will follow along with the team. Thank you Procedures Date of Service Date of Service: 07/16/23
--- NOTE | 2023-07-15 12:55 | PC.NURSE ---
Pharmacy contacted for med rec.
--- NOTE | 2023-07-15 14:13 | PHA.MEDREC ---
Pharmacy Consult ? Medication Reconciliation Pharmacy has completed the medication reconciliation. Spoke to patient and confirmed medication list. Patient confirmed that her dose for tacrolimus was decreased to 0.5 mg bid since last week on when she saw the doctor. She only takes furosemide 40 mg daily as needed when her weight goes up and she hasn't taken it in the last week.
[2023-07-15 16:00] VITALS: BP 162/64; PULSE 70; RESP 15; TEMP 36.7; O2SAT 96
[2023-07-15] MEDS: oxyCODONE HCl Immed Release 5 MG TABLET PO ×2 (16:07→23:48)
[2023-07-15 16:08] VITALS: BP 162/64; PULSE 70
[2023-07-15] MEDS: allopurinoL 100 MG TABLET PO (16:08)
[2023-07-15] MEDS: Metoprolol Tartrate 25 MG TABLET PO ×2 (16:08→20:59)
[2023-07-15] MEDS: Tacrolimus 0.5 MG CAPSULE PO ×2 (16:26→20:59)
[2023-07-15] MEDS: Venlafaxine HCL 25 MG TABLET PO (16:26)
[2023-07-15] MEDS: Sevelamer Carbonate Tablet 800 MG TABLET PO (18:39)
[2023-07-15 20:46] VITALS: BP 151/69; PULSE 67; RESP 23; TEMP 36.7; O2SAT 94
[2023-07-15 20:59] VITALS: BP 151/69; PULSE 65
[2023-07-15] MEDS: rOPINIRole HCL 0.5 MG TABLET PO (20:59)
[2023-07-15] MEDS: Famotidine 20 MG TABLET PO (21:00)
[2023-07-16 05:57] VITALS: BP 150/67; PULSE 70; TEMP 36.8; O2SAT 94
[2023-07-16] MEDS: Levothyroxine Sodium 88 MCG TABLET PO (06:44)
[2023-07-16 06:52] LABS: Anion Gap 12 (12-20); Blood Urea Nitrogen 17 mg/dL (9-16); Calcium 8.4 mg/dL (8.4-10.2); Carbon Dioxide 28 mmol/L (22-29); Chloride 101 mmol/L (96-108); Creatinine Clr Calc Pharmacy 12.2; Estimated Glomerular Filt Rate 10; Glucose Random 88 mg/dL (60-115); Potassium 4.8 mmol/L (3.3-5.1); Sodium 136 mmol/L (135-145)
--- NOTE | 2023-07-16 07:00 | CA_ITS ---
Transthoracic Echocardiogram Patient (Last, First, Middle): Guadalupe Kay, Gender: Female Date of : 1950 Age: 72 Procedure Date: 07/16/2023 Procedure Type: Transthoracic Echocardiogram Location: ER Height: 172.72 cm Weight: 71.67 kg BSA: 1.85 m2 Heart Rate: 61 bpm BP: 150 / 67 mmHg Knowledge Management Consultant: SB Referring MD: Steve Pandya DO Symptoms: CHF Study Quality: Adequate ECG Rhythm: Sinus Conclusions: - The left ventricular systolic function is low normal. The calculated ejection fraction is 54% by biplane method. - The basal inferior segment is akinetic. - The basal inferolateral segment is hypokinetic. - A bioprosthetic aortic valve is present. The prosthetic aortic valve appears to be functioning normally. Findings Left Ventricle Normal left ventricular cavity size. The left ventricular systolic function is low normal. The calculated ejection fraction is 54% by biplane method. There is evidence of regional wall motion abnormalities. Evidence suggests grade II (moderate) diastolic dysfunction. There is mild septal asymmetric hypertrophy. Wall Motion Rest Echo Findings The basal inferolateral segment is hypokinetic. The basal inferior segment is akinetic. Right Ventricle Normal right ventricular cavity size and systolic function. Atria The left atrium is severely dilated. The right atrium is normal in size. Aortic Valve A bioprosthetic aortic valve is present. The prosthetic aortic valve appears to be functioning normally. There is no aortic valve regurgitation. Mitral Valve The mitral valve appears normal. There is mild mitral annular calcification. There is mild mitral valve regurgitation. There is no mitral valve stenosis. Pulmonic Valve The pulmonic valve is likely normal. Tricuspid Valve There is mild tricuspid valve regurgitation. There is no evidence of pulmonary hypertension. Great Vessels The asc aorta is normal in size. Venous The inferior vena cava is normal in size and collapses greater than 50% with inspiration. Pericardium/Pleural There is no evidence of pericardial effusion. There is a moderate left sided pleural effusion. Prior Study Comparison No significant change compared to prior study dated: 02/02/2021. Measurements 2D Linear Measurements IVSd: 1.19 0.6-0.9/0.6-1.0 cm LVIDd: 5.49 3.9-5.3/4.2-5.9 cm LVIDd Index: 2.97 2.4-3.2/2.2-3.1 cm/m2 LVIDs: 4.09 2.0-3.6 cm LVPWd: 1.00 0.7-1.1 cm LA Diam: 5.00 2.7-3.8/3.0-4.0 cm LAIDs Index: 2.70 1.5-2.3 cm/m2 LV Mass: 298.28 67-162/88-224 g LV Mass Index: 161.23 43-95/49-115 g/m2 LVOT Diam: 2.40 3.0+(-)1.3 cm 2D Systolic Function EF 4C: 50.50 >55% EF 2C: 56.70 >55% EF BiP: 53.90 >55% Mitral Valve MV Pk E: 1.11 MV PK A: 0.44 MV Decel Time: 256.00 E/A: 2.50 E'Lateral: 5.25 E'Medial: 5.43 E/E' Med: 20.40 E/E' Lat: 21.10 PHT: 75.00 MVA PHT: 2.93 Decel [place]: 4.33 Aortic Valve AoV Pk Hayden: 2.02 AoV Mn [place]den: 1.34 AoV VTI: 0.45 AoV Pk Grad: 16.00 Aov Mn Grad: 9.00 ERNESTINE Cont.VTI: 1.85 LVOT LVOT Pk Hayden: 0.76 LVOT Mn Hayden: 0.50 LVOT VTI: 0.18 LVOT Pk Grad: 2.00 LVOT Mn Grad: 1.00 LVOT Diam: 2.40 LVOT Area: 4.52 Diastolic Function MV Pk E: 1.11 MV Pk A: 0.44 E/A: 2.50 E'Medial: 5.43 E/E' Med: 20.40 E' Laterial: 5.25 E/E' Lat: 21.10 Right Ventricle TAPSE (mm): 20.90 TVS' Hayden: 11.70 Tricuspid Valve TR Pk Hayden: 2.23 TR Pk Grad: 20.00 RA Press: 3.00 RVSP: 23.00 Great Vessels Aorta Ao Asc: 3.60 2.1-3.4 cm Pulmonary Veins Pulm Vein S/D 0.50 Pulmonary Valve PV Pk Hayden: 0.72 Peak PV Grad: 2.00 Updated in Other Vendor System with Status of Final Gerardo Pang MD electronically signed on 07/16/2023 4:34:49 PM with status of Final
[2023-07-16] MEDS: Metoprolol Tartrate 25 MG TABLET PO ×2 (08:21→22:06)
[2023-07-16] MEDS: allopurinoL 100 MG TABLET PO (08:21)
[2023-07-16] MEDS: Sevelamer Carbonate Tablet 800 MG TABLET PO ×2 (08:21→16:39)
[2023-07-16] MEDS: Aspirin Enteric Coated 81 MG TABLET.DR PO (08:21)
[2023-07-16] MEDS: Cholecalciferol (Vitamin D3) 25 MCG TABLET 50 MCG PO (08:21)
[2023-07-16] MEDS: Famotidine 20 MG TABLET PO ×2 (08:21→22:08)
[2023-07-16] MEDS: Atorvastatin Calcium 20 MG TABLET PO (08:21)
--- NOTE | 2023-07-16 08:40 | PC.NURSE ---
this RN resumed care of pt at this time. a&ox4. vss and up to date. nsr on the posting clerk. pt currently sitting in recliner in room in no apparent distress. pt has no complaints. denies pain. no sob/wob noted. medication administered per provider order. pharmacy called/notified of missing medication in pyxis - will administer when able. pt continues to wait for bed assignment at this time. respirations remain even and unlabored. plan of care ongoing. call hernandez placed within reach.
[2023-07-16] MEDS: Venlafaxine HCL 25 MG TABLET PO (09:22)
[2023-07-16] MEDS: Tacrolimus 0.5 MG CAPSULE PO ×2 (09:22→22:09)
--- NOTE | 2023-07-16 09:45 | PC.NURSE ---
medication delivered from pharmacy/administered at this time. plan of care ongoing. call hernandez placed within reach.
[2023-07-16 11:58] VITALS: BP 167/92; PULSE 59; RESP 18; TEMP 36.6; O2SAT 94
--- NOTE | 2023-07-16 12:22 | MHC.CM.PN ---
CM met with Patient at bedside, in the ED, and addressed IMM with her (original was given to Patient and a copy has been placed on the chart). Patient lives alone in an apartment and she uses a walker to assist with mobility. Patient receives a [employer] [facility] [employer] 7.5 hours per week and she is active with [employer]. Home/resume said services is the goal and CM has initiated and will follow for dc planning. Patient's Sister/Jena is the HCP and the PCP is Dr. Vanessa Hu.
--- NOTE | 2023-07-16 12:32 | MHC.CM.PN ---
Patient receives HD at [facility] in [place] Q T//FRI.
--- NOTE | 2023-07-16 15:23 | PC.NURSE ---
pt continues to rest comfortably in no apparent distress at this time. echocardiogram being completed. no sob/wob noted. respirations even and unlabored. pt continues to wait for bed assignment at this time. plan of care ongoing. call hernandez placed within reach.
[2023-07-16 15:52] VITALS: BP 177/87; PULSE 61; RESP 16; TEMP 36.7; O2SAT 97
--- NOTE | 2023-07-16 16:02 | HO.PM.IMPN ---
Subjective Subjective Date of Service: 07/16/23 Interval History: Notes improvement after dialysis. Shortness of breath markedly improved Review of Systems Denies chest pain Denies shortness of breath Denies nausea vomiting diarrhea Denies fever chills Physical Exam Vital Signs: Vital Signs: Last Vital Signs Temp 98.1 F 07/16/23 15:52 Pulse 61 07/16/23 15:52 Resp 16 07/16/23 15:52 BP 177/87 H 07/16/23 15:52 Pulse Ox 97 07/16/23 15:52 O2 Del Method Room Air 07/16/23 15:52 BMI result Body Mass Index 24.1 Const: Other: Awake alert no acute distress Resp: Other: Clear to auscultation bilaterally no rales rhonchi or wheezes Cardio: Other: No S4; positive S1-S2; no S3 murmurs rubs or gallops GI: Other: Soft nontender nondistended normoactive bowel sounds Extrem: Other: No edema bilaterally Objective Data Active Medications Acetaminophen (Acetaminophen 325 Mg Tablet) 650 mg PO Q6H PRN PRN Reason: Pain, Mild (Pain Scale 1-3) Albuterol Sulfate (Albuterol Sulfate 90 Mcg 8 Gm Inhaler) 1 puff INHALE Q6H PRN PRN Reason: wheezing Allopurinol (Allopurinol 100 Mg Tablet) 100 mg PO DAILY [facility] Last Admin: 07/16/23 08:21 Dose: 100 mg Documented By: ENE Aspirin (Aspirin Enteric Coated 81 Mg Tablet.) 81 mg PO DAILY [facility] Last Admin: 07/16/23 08:21 Dose: 81 mg Documented By: ENE Atorvastatin Calcium (Atorvastatin Calcium 20 Mg Tablet) 20 mg PO DAILY [facility] Last Admin: 07/16/23 08:21 Dose: 20 mg Documented By: ENE Calcium Carbonate (Calcium Carbonate 500 Mg Tablet) 500 mg PO BID [facility] Last Admin: 07/16/23 08:21 Dose: 500 mg Documented By: ENE Clonazepam (Clonazepam 1 Mg Tablet) 1 mg PO DAILY PRN PRN Reason: anxiety Famotidine (Famotidine 20 Mg Tablet) 20 mg PO BID [facility] Last Admin: 07/16/23 08:21 Dose: 20 mg Documented By: ENE Hydroxyzine HCl (Hydroxyzine Hcl 25 Mg Tablet) 25 mg PO TID PRN PRN Reason: Itching Levothyroxine Sodium (Levothyroxine Sodium 88 Mcg Tablet) 88 mcg PO DAILY@0600 [facility] Last Admin: 07/16/23 06:44 Dose: 88 mcg Documented By: JAS Metoprolol Tartrate (Metoprolol Tartrate 25 Mg Tablet) 25 mg PO BID [facility]; Protocol Last Admin: 07/16/23 08:21 Dose: 25 mg Documented By: ENE Ondansetron HCl (Ondansetron Hcl 4 Mg/2 Ml Vial) 4 mg IVPUSH Q8H PRN PRN Reason: Nausea and Vomiting Oxycodone HCl (Oxycodone Hcl Immed Release 5 Mg Tablet) 5 mg PO BID PRN PRN Reason: Moderate Pain (Scale Score 5-6) Last Admin: 07/15/23 23:48 Dose: 5 mg Documented By: JAS Ropinirole HCl (Ropinirole Hcl 0.5 Mg Tablet) 0.5 mg PO BEDTIME [facility] Last Admin: 07/15/23 20:59 Dose: 0.5 mg Documented By: JAS Senna (Sennosides 8.6 Mg Tablet) 17.2 mg PO BEDTIME PRN PRN Reason: Constipation Sevelamer Carbonate (Sevelamer Carbonate Tablet 800 Mg Tablet) 800 mg PO BIDWM [facility] Last Admin: 07/16/23 08:21 Dose: 800 mg Documented By: ENE Tacrolimus (Tacrolimus 0.5 Mg Capsule) 0.5 mg PO BID [facility] Last Admin: 07/16/23 09:22 Dose: 0.5 mg Documented By: ENE Venlafaxine HCl (Venlafaxine Hcl 25 Mg Tablet) 25 mg PO DAILY [facility] Last Admin: 07/16/23 09:22 Dose: 25 mg Documented By: ENE Vitamin D (Cholecalciferol (Vitamin D3) 25 Mcg Tablet) 50 mcg PO DAILY [facility] Last Admin: 07/16/23 08:21 Dose: 50 mcg Documented By: ENE Labs 07/15/23 06:33 07/16/23 06:11 Labs: Laboratory Results - last 24 hr 07/16/23 06:11 Anion Gap 12 Estim Creat Clear Calc 12.2 Estimated GFR 10 Random Glucose 88 Calcium 8.4 D Assessment and Plan (1) CHF exacerbation: Status: Acute (2) ESRD (end stage renal disease) on dialysis: Status: Acute Plan 72-year-old female with history of CAD with history of NSTEMI, asthma/COPD overlap, hepatic cirrhosis, ESRD on dialysis awaiting renal transplant with AV fistula in placed, and heart failure reduced ejection fraction admitted for acute CHF exacerbation 1.Acute CHF exacerbation -markedly improved after dialysis -repeat echocardiogram -follow renals/divalents 2.ESRD on dialysis -hemodialysis as per renal -continue calcium binders -follow renals/divalents 3.Asthma/COPD overlap -no acute exacerbation -albuterol p.r.n. 4.CAD -stable well compensated -continue beta-pamela, statin, asa SCPs, early ambulation FUll code Given patient's significant volume overload with ongoing dyspnea, patient will require hemodialysis and close monitoring of renal function and electrolyte levels as well as strict monitoring of I and O Quality Stroke Does the patient have a stroke diagnosis?: No VTE Prior VTE?: No VTE Risk Level:: Medical - moderate - high VTE Device Contraindication: Treatment Not Indicated VTE Drug Contraindication: N/A - Med Ordered
--- NOTE | 2023-07-16 18:06 | MHC.EDTECH ---
Addendum entered by Sweta Toth 07/16/23 18:12: note was documented by this this tech Original Note: At 1900 refuse the gait belt patient ambulated 2 laps around the Main ER gait was steady no complaints of SOB.
--- NOTE | 2023-07-16 18:11 | PC.NURSE ---
pt stating she is uncomfortable d/t alternating between hospital stretcher and recliner since last night. pt ambulated around the ED w/ tech w/ use of walker as an assistive device. 1:1 assist needed.
--- NOTE | 2023-07-16 18:42 | MHC.EDTECH ---
@[id number] Gave the patient her dinner.
[2023-07-16 18:44] VITALS: BP 171/81; PULSE 58; RESP 17; TEMP 36.7; O2SAT 97
[2023-07-16 22:06] VITALS: BP 158/80; PULSE 63
[2023-07-16] MEDS: rOPINIRole HCL 0.5 MG TABLET PO (22:09)
[2023-07-16 22:12] VITALS: PULSE 64; RESP 20; TEMP 36.7; O2SAT 96
[2023-07-16] MEDS: hydrOXYzine HCL 25 MG TABLET PO (22:12)
--- NOTE | 2023-07-16 23:30 | PC.NURSE ---
Pt ambulated independently with walker around unit, reports it helps with back pain.
[2023-07-17] VITALS (8 sets, daily range): BP systolic 121–170; BP diastolic 57–82; PULSE 55–66; RESP 16–20; TEMP 36.2–36.6; O2SAT 92–96
[2023-07-17] MEDS: Levothyroxine Sodium 88 MCG TABLET PO (05:49)
[2023-07-17 06:22] LABS: MANUAL DIFF FLAG NO
[2023-07-17 06:24] LABS: Basophils Absolute Auto 0.1 X10*3/uL (0.0-0.2); Basophils Percent Auto 0.8 % (0-2); Eosinophils Absolute Auto 0.3 X10*3/uL (0.0-0.4); Eosinophils Percent Auto 4.8 % (0-4); Hematocrit 36.5 % (37.0-47.0); Hemoglobin 11.6 g/dl (12.0-16.0); Imm Gran Abs Auto 0.02 X10*3/uL (0.00-0.03); Imm Gran Pct Auto 0.3 % (0.0-0.4); Lymphocytes Absolute Auto 1.8 X10*3/uL (1.2-4.9); Mean Corpuscular HGB Conc 31.8 g/dl (31.0-35.0); Mean Corpuscular Hemoglobin 30.4 pg (27.0-33.0); Mean Corpuscular Volume 95.5 fL (80.0-98.0); Mean Platelet Volume 10.7 fL (9.4-12.3); Monocytes Absolute Auto 0.7 X10*3/uL (0.1-1.2); Monocytes Percent Auto 10.9 % (2-11); Neutrophils Absolute Auto 3.3 x10*3/uL (2.0-8.3); Neutrophils Percent Auto 54.2 % (45-73); Platelet Count 229 X10*3/uL (160-400); Red Blood Count 3.82 X10*6/uL (4.20-5.50)
[2023-07-17 09:06] LABS: Alanine Aminotransferase 8 U/L (0-31); Albumin Level 2.7 g/dL (3.5-5.0); Alkaline Phosphatase 83 U/L (39-117); Anion Gap 15 (12-20); Aspartate Amino Transferase 22 U/L (5-31); Bilirubin Total 0.5 mg/dL (0.0-1.0); Blood Urea Nitrogen 30 mg/dL (9-16); Calcium 8.1 mg/dL (8.4-10.2); Carbon Dioxide 23 mmol/L (22-29); Chloride 103 mmol/L (96-108); Creatinine Clr Calc Pharmacy 9.2; Estimated Glomerular Filt Rate 7; Glucose Fasting 75 mg/dL (60-99); Potassium 4.9 mmol/L (3.3-5.1); Sodium 136 mmol/L (135-145); Total Protein 6.1 g/dL (6.5-8.0)
--- NOTE | 2023-07-17 12:51 | W.PM.DNNEP ---
Subjective Subjective This patient was seen during dialysis. Interval history: Shortness of breath markedly improved Physical Exam Vital Signs: Vital Signs: Last Vital Signs Temp 97.2 F 07/17/23 08:00 Pulse 58 07/17/23 08:00 Resp 20 07/17/23 08:00 BP 166/75 H 07/17/23 08:00 Pulse Ox 96 07/17/23 08:00 O2 Del Method Room Air 07/17/23 08:00 BMI result Body Mass Index 24.1 Const: Other: chronically ill female looking older than stated age Nutritional Appearance: average body habitus Orientation/consciousness: oriented to person and patient oriented x3 Limitations: no limitations Eyes: General: appearance normal, both eyes and all related structures Neck: Other: supple Neck: Yes normal visual inspection Chest: Chest palpation & inspection: normal inspection of the chest Resp: Other: Bilateral rales in lower lobes Cardio: Jugular venous distension: no JVD Rate: regular rate Rhythm: regular rhythm Heart sounds: S1 normal heart sound present and S2 normal heart sound present GI: Inspection: Yes normal to inspection Palpation (GI): Soft to palpation, nontender and No hepatosplenomegaly present Auscultation: normal bowel sounds : General: Yes no CVA tenderness Back/Spine/Pelvis: Back: no CVA tenderness Skin: General skin exam: no rashes or lesions noted Neuro: General: oriented to person and patient oriented x3 Cranial nerves: Yes CN's II-XII intact bilaterally Sensory Exam: No Sensory deficit (Neuro) Extrem: Other: good thrill left arm Psych: Appearance: grossly normal Assessment & Plan Assessment and plan (1) ESRD (end stage renal disease) on dialysis: Status: Acute Plan Elderly woman with end stage renal disease presenting with fluid overload. On dialysis on Saturdays. 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 Concur with other medical management and we will follow along with the team. Time Spent With Patient Time: Total time managing care of this patient today ____ minutes. Procedures Date of Service Date of Service: 07/20/23
[2023-07-17] MEDS: allopurinoL 100 MG TABLET PO (13:18)
[2023-07-17] MEDS: Venlafaxine HCL 25 MG TABLET PO (13:18)
[2023-07-17] MEDS: Cholecalciferol (Vitamin D3) 25 MCG TABLET 50 MCG PO (13:18)
[2023-07-17] MEDS: Atorvastatin Calcium 20 MG TABLET PO (13:18)
[2023-07-17] MEDS: Tacrolimus 0.5 MG CAPSULE PO ×2 (13:18→22:25)
[2023-07-17] MEDS: Aspirin Enteric Coated 81 MG TABLET.DR PO (13:19)
[2023-07-17] MEDS: Sevelamer Carbonate Tablet 800 MG TABLET PO (13:19)
[2023-07-17] MEDS: Metoprolol Tartrate 25 MG TABLET PO (13:19)
[2023-07-17] MEDS: Famotidine 20 MG TABLET PO ×2 (13:19→22:19)
--- NOTE | 2023-07-17 14:05 | P.PNIM_ITS ---
Subjective Subjective Date of Service: 07/17/23 Interval History: Notable improvement with dialysis. Echo reviewed; Review of Systems Denies chest pain Denies shortness of breath Denies nausea vomiting diarrhea Denies fever chills Physical Exam 2 Vital Signs: Vital Signs: Last Vital Signs Temp 97.2 F 07/17/23 13:24 Pulse 66 07/17/23 13:24 Resp 20 07/17/23 13:24 BP 121/57 L 07/17/23 13:24 Pulse Ox 96 07/17/23 13:24 O2 Del Method Room Air 07/17/23 13:24 BMI result Body Mass Index 24.1 Const: Other: Awake alert no acute distress Resp: Other: Clear to auscultation bilaterally no rales rhonchi or wheezes Cardio: Other: No S4; positive S1-S2; no S3 murmurs rubs or gallops GI: Other: Soft nontender nondistended normoactive bowel sounds Extrem: Other: No edema bilaterally Objective Data Active Medications Acetaminophen (Acetaminophen 325 Mg Tablet) 650 mg PO Q6H PRN PRN Reason: Pain, Mild (Pain Scale 1-3) Albuterol Sulfate (Albuterol Sulfate 90 Mcg 8 Gm Inhaler) 1 puff INHALE Q6H PRN PRN Reason: wheezing Allopurinol (Allopurinol 100 Mg Tablet) 100 mg PO DAILY [facility] Last Admin: 07/17/23 13:18 Dose: 100 mg Documented By: YAYA Aspirin (Aspirin Enteric Coated 81 Mg Tablet.) 81 mg PO DAILY [facility] Last Admin: 07/17/23 13:19 Dose: 81 mg Documented By: YAYA Atorvastatin Calcium (Atorvastatin Calcium 20 Mg Tablet) 20 mg PO DAILY [facility] Last Admin: 07/17/23 13:18 Dose: 20 mg Documented By: YAYA Calcium Carbonate (Calcium Carbonate 500 Mg Tablet) 500 mg PO BID [facility] Last Admin: 07/17/23 13:19 Dose: 500 mg Documented By: YAYA Clonazepam (Clonazepam 1 Mg Tablet) 1 mg PO DAILY PRN PRN Reason: anxiety Famotidine (Famotidine 20 Mg Tablet) 20 mg PO BID [facility] Last Admin: 07/17/23 13:19 Dose: 20 mg Documented By: YAYA Hydroxyzine HCl (Hydroxyzine Hcl 25 Mg Tablet) 25 mg PO TID PRN PRN Reason: Itching Last Admin: 07/16/23 22:12 Dose: 25 mg Documented By: LIZ Levothyroxine Sodium (Levothyroxine Sodium 88 Mcg Tablet) 88 mcg PO DAILY@0600 [facility] Last Admin: 07/17/23 05:49 Dose: 88 mcg Documented By: LIZ Metoprolol Tartrate (Metoprolol Tartrate 25 Mg Tablet) 25 mg PO BID [facility]; Protocol Last Admin: 07/17/23 13:19 Dose: 25 mg Documented By: YAYA Ondansetron HCl (Ondansetron Hcl 4 Mg/2 Ml Vial) 4 mg IVPUSH Q8H PRN PRN Reason: Nausea and Vomiting Oxycodone HCl (Oxycodone Hcl Immed Release 5 Mg Tablet) 5 mg PO BID PRN PRN Reason: Moderate Pain (Scale Score 5-6) Last Admin: 07/15/23 23:48 Dose: 5 mg Documented By: JAS Ropinirole HCl (Ropinirole Hcl 0.5 Mg Tablet) 0.5 mg PO BEDTIME [facility] Last Admin: 07/16/23 22:09 Dose: 0.5 mg Documented By: LIZ Senna (Sennosides 8.6 Mg Tablet) 17.2 mg PO BEDTIME PRN PRN Reason: Constipation Sevelamer Carbonate (Sevelamer Carbonate Tablet 800 Mg Tablet) 800 mg PO BIDWM [facility] Last Admin: 07/17/23 13:19 Dose: 800 mg Documented By: YAYA Tacrolimus (Tacrolimus 0.5 Mg Capsule) 0.5 mg PO BID [facility] Last Admin: 07/17/23 13:18 Dose: 0.5 mg Documented By: YAYA Venlafaxine HCl (Venlafaxine Hcl 25 Mg Tablet) 25 mg PO DAILY [facility] Last Admin: 07/17/23 13:18 Dose: 25 mg Documented By: YAYA Vitamin D (Cholecalciferol (Vitamin D3) 25 Mcg Tablet) 50 mcg PO DAILY [facility] Last Admin: 07/17/23 13:18 Dose: 50 mcg Documented By: YAYA Labs 07/17/23 06:05 07/17/23 08:13 Labs: Laboratory Results - last 24 hr 07/17/23 07/17/23 06:05 08:13 MCV 95.5 MCH 30.4 MCHC 31.8 RDW 17.0 H Plt Count 229 MPV 10.7 Immature Gran % (Auto) 0.3 Neut % (Auto) 54.2 Lymph % (Auto) 29.0 [place] % (Auto) 10.9 Eos % (Auto) 4.8 H Baso % (Auto) 0.8 Lymph # (Auto) 1.8 [place] # (Auto) 0.7 Eos # (Auto) 0.3 Baso # (Auto) 0.1 Abs Immat Gran (auto) 0.02 Absolute Neuts (auto) 3.3 Absolute Nucleated RBC 0.000 Nucleated RBC % (auto) 0.0 Hold Purple Top SEE NOTE Anion Gap 15 Estim Creat Clear Calc 9.2 Estimated GFR 7 Fasting Glucose 75 Calcium 8.1 L Total Bilirubin 0.5 AST 22 ALT 8 Alkaline Phosphatase 83 Total Protein 6.1 L Albumin 2.7 L Assessment and Plan (1) Acute diastolic congestive heart failure: Status: Acute (2) ESRD (end stage renal disease) on dialysis: Status: Acute Plan 72-year-old female with history of CAD with history of NSTEMI, asthma/COPD overlap, hepatic cirrhosis, ESRD on dialysis awaiting renal transplant with AV fistula in placed, and heart failure reduced ejection fraction admitted for acute CHF exacerbation 1.Acute diastolic CHF exacerbation -markedly improved after dialysis -repeat echocardiogram... No major changes from 02/02/2021 -follow renals/divalents 2.ESRD on dialysis -hemodialysis as per renal -continue calcium binders -follow renals/divalents 3.Asthma/COPD overlap -no acute exacerbation -albuterol p.r.n. 4.CAD -stable well compensated -continue beta-pamela, statin, asa SCPs, early ambulation FUll code Given patient's significant volume overload with ongoing dyspnea, patient will require hemodialysis and close monitoring of renal function and electrolyte levels as well as strict monitoring of I and O Quality Stroke Does the patient have a stroke diagnosis?: No VTE Prior VTE?: No VTE Risk Level:: Medical - moderate - high VTE Device Contraindication: Treatment Not Indicated VTE Drug Contraindication: N/A - Med Ordered
[2023-07-17] MEDS: rOPINIRole HCL 0.5 MG TABLET PO (22:18)
[2023-07-17] MEDS: oxyCODONE HCl Immed Release 5 MG TABLET PO (22:19)
[2023-07-18] VITALS (10 sets, daily range): BP systolic 148–165; BP diastolic 67–82; PULSE 62–79; RESP 16–20; TEMP 36.1–36.6; O2SAT 92–97
[2023-07-18] MEDS: Albuterol/Iprat 2.5/0.5MG 3 ML AMPUL.NEB INHALE (00:25)
[2023-07-18] MEDS: Furosemide 40 MG/4 ML VIAL IVPUSH (02:29)
[2023-07-18] MEDS: Levothyroxine Sodium 88 MCG TABLET PO (06:18)
[2023-07-18] MEDS: Metoprolol Tartrate 25 MG TABLET PO ×2 (09:28→21:48)
[2023-07-18] MEDS: Famotidine 20 MG TABLET PO ×2 (09:29→21:48)
[2023-07-18] MEDS: Sevelamer Carbonate Tablet 800 MG TABLET PO ×2 (09:30→17:18)
[2023-07-18] MEDS: Aspirin Enteric Coated 81 MG TABLET.DR PO (09:30)
[2023-07-18] MEDS: Cholecalciferol (Vitamin D3) 25 MCG TABLET 50 MCG PO (09:30)
[2023-07-18] MEDS: allopurinoL 100 MG TABLET PO (09:30)
[2023-07-18] MEDS: Atorvastatin Calcium 20 MG TABLET PO (09:30)
[2023-07-18] MEDS: Venlafaxine HCL 25 MG TABLET PO (09:31)
[2023-07-18] MEDS: Tacrolimus 0.5 MG CAPSULE PO ×2 (09:31→21:49)
--- NOTE | 2023-07-18 14:35 | P.PNIM_ITS ---
Subjective Subjective Date of Service: 07/18/23 Interval History: Notes improvement with dialysis however still feels mildly short of breath Review of Systems Denies chest pain Denies shortness of breath Denies nausea vomiting diarrhea Denies fever chills Physical Exam 2 Vital Signs: Vital Signs: Last Vital Signs Temp 97.6 F 07/18/23 11:34 Pulse 62 07/18/23 11:34 Resp 20 07/18/23 11:34 BP 152/67 H 07/18/23 11:34 Pulse Ox 97 07/18/23 11:34 O2 Del Method Room Air 07/18/23 11:34 BMI result Body Mass Index 24.1 Const: Other: Awake alert no acute distress Resp: Other: Clear to auscultation bilaterally no rales rhonchi or wheezes Cardio: Other: No S4; positive S1-S2; no S3 murmurs rubs or gallops GI: Other: Soft nontender nondistended normoactive bowel sounds Extrem: Other: No edema bilaterally Objective Data Active Medications Acetaminophen (Acetaminophen 325 Mg Tablet) 650 mg PO Q6H PRN PRN Reason: Pain, Mild (Pain Scale 1-3) Albuterol Sulfate (Albuterol Sulfate 90 Mcg 8 Gm Inhaler) 1 puff INHALE Q6H PRN PRN Reason: wheezing Allopurinol (Allopurinol 100 Mg Tablet) 100 mg PO DAILY [facility] Last Admin: 07/18/23 09:30 Dose: 100 mg Documented By: ADAN Aspirin (Aspirin Enteric Coated 81 Mg Tablet.) 81 mg PO DAILY [facility] Last Admin: 07/18/23 09:30 Dose: 81 mg Documented By: ADAN Atorvastatin Calcium (Atorvastatin Calcium 20 Mg Tablet) 20 mg PO DAILY [facility] Last Admin: 07/18/23 09:30 Dose: 20 mg Documented By: ADAN Calcium Carbonate (Calcium Carbonate 500 Mg Tablet) 500 mg PO BID [facility] Last Admin: 07/18/23 09:30 Dose: 500 mg Documented By: ADAN Clonazepam (Clonazepam 1 Mg Tablet) 1 mg PO DAILY PRN PRN Reason: anxiety Famotidine (Famotidine 20 Mg Tablet) 20 mg PO BID [facility] Last Admin: 07/18/23 09:29 Dose: 20 mg Documented By: ADAN Hydroxyzine HCl (Hydroxyzine Hcl 25 Mg Tablet) 25 mg PO TID PRN PRN Reason: Itching Last Admin: 07/16/23 22:12 Dose: 25 mg Documented By: LIZ Levothyroxine Sodium (Levothyroxine Sodium 88 Mcg Tablet) 88 mcg PO DAILY@0600 [facility] Last Admin: 07/18/23 06:18 Dose: 88 mcg Documented By: JULIANO Metoprolol Tartrate (Metoprolol Tartrate 25 Mg Tablet) 25 mg PO BID [facility]; Protocol Last Admin: 07/18/23 09:28 Dose: 25 mg Documented By: ADAN Ondansetron HCl (Ondansetron Hcl 4 Mg/2 Ml Vial) 4 mg IVPUSH Q8H PRN PRN Reason: Nausea and Vomiting Oxycodone HCl (Oxycodone Hcl Immed Release 5 Mg Tablet) 5 mg PO BID PRN PRN Reason: Moderate Pain (Scale Score 5-6) Last Admin: 07/17/23 22:19 Dose: 5 mg Documented By: JULIANO Ropinirole HCl (Ropinirole Hcl 0.5 Mg Tablet) 0.5 mg PO BEDTIME [facility] Last Admin: 07/17/23 22:18 Dose: 0.5 mg Documented By: JULIANO Senna (Sennosides 8.6 Mg Tablet) 17.2 mg PO BEDTIME PRN PRN Reason: Constipation Sevelamer Carbonate (Sevelamer Carbonate Tablet 800 Mg Tablet) 800 mg PO BIDWM [facility] Last Admin: 07/18/23 09:30 Dose: 800 mg Documented By: ADAN Tacrolimus (Tacrolimus 0.5 Mg Capsule) 0.5 mg PO BID [facility] Last Admin: 07/18/23 09:31 Dose: 0.5 mg Documented By: ADAN Venlafaxine HCl (Venlafaxine Hcl 25 Mg Tablet) 25 mg PO DAILY [facility] Last Admin: 07/18/23 09:31 Dose: 25 mg Documented By: ADAN Vitamin D (Cholecalciferol (Vitamin D3) 25 Mcg Tablet) 50 mcg PO DAILY [facility] Last Admin: 07/18/23 09:30 Dose: 50 mcg Documented By: ADAN Labs 07/17/23 06:05 07/17/23 08:13 Assessment and Plan (1) Acute diastolic congestive heart failure: Status: Acute (2) ESRD (end stage renal disease) on dialysis: Status: Acute Plan 72-year-old female with history of CAD with history of NSTEMI, asthma/COPD overlap, hepatic cirrhosis, ESRD on dialysis awaiting renal transplant with AV fistula in placed, and heart failure reduced ejection fraction admitted for acute CHF exacerbation 1.Acute diastolic CHF exacerbation -markedly improved after dialysis -repeat echocardiogram... No major changes from 02/02/2021 -follow renals/divalents 2.ESRD on dialysis -hemodialysis as per renal... Likely discharge tomorrow after dialysis -continue calcium binders -follow renals/divalents 3.Asthma/COPD overlap -no acute exacerbation -albuterol p.r.n. 4.CAD -stable well compensated -continue beta-pamela, statin, asa SCPs, early ambulation FUll code Given patient's significant volume overload with ongoing dyspnea, patient will require hemodialysis and close monitoring of renal function and electrolyte levels as well as strict monitoring of I and O Quality Stroke Does the patient have a stroke diagnosis?: No VTE Prior VTE?: No VTE Risk Level:: Medical - moderate - high VTE Device Contraindication: Treatment Not Indicated VTE Drug Contraindication: N/A - Med Ordered
--- NOTE | 2023-07-18 19:22 | P.PNNP_ITS ---
Subjective Subjective Date of Service: 07/18/23 Interval history: Notes improvement with dialysis however still feels mildly short of breath; All recent data reviewed Physical Exam 2 Vital Signs: Vital Signs: Last Vital Signs Temp 97.8 F 07/18/23 16:00 Pulse 64 07/18/23 16:00 Resp 20 07/18/23 16:00 BP 165/72 H 07/18/23 16:00 Pulse Ox 97 07/18/23 16:00 O2 Del Method Room Air 07/18/23 16:00 BMI result Body Mass Index 24.1 Const: General: comfortable and no acute distress O rientation/consciousness: patient oriented x3 HEENT: Head: Yes normocephalic Mouth: Normal oral and palatal mucosa present Eyes: EOM: EOMs intact bilaterally Neck: Neck: Yes supple Resp: Auscultation: clear to auscultation bilaterally Cardio: Jugular venous distension: no JVD Rate: regular rate GI: Palpation (GI): Soft to palpation Auscultation: normal bowel sounds : General: Yes no CVA tenderness Back/Spine/Pelvis: Back: no CVA tenderness Skin: General skin exam: no rashes or lesions noted Neuro: General: patient oriented x3 Objective Data Labs 07/17/23 06:05 07/17/23 08:13 Procedures Date of Service Date of Service: 07/18/23 Assessment & Plan Assessment and plan (1) ESRD (end stage renal disease) on dialysis: Status: Acute Plan Usually gets HD on TTS Serum potassium OK Volume status better; Needs to bring dry weight down Renal Diet; No change in tacrolimus dosage Continue rest of current management Next HD tomorrow AM Progress Note: Quality Stroke Does the patient have a stroke diagnosis?: No
[2023-07-18] MEDS: rOPINIRole HCL 0.5 MG TABLET PO (21:48)
--- NOTE | 2023-07-19 00:13 | ECG_ITS ---
Test Reason : dysrhythmia Blood Pressure : / mmHG Vent. Rate : 081 BPM Atrial Rate : 081 BPM P-R Int : 284 ms QRS Dur : 092 ms QT Int : 442 ms P-R-T Axes : 045 -36 102 degrees QTc Int : 513 ms Sinus rhythm with 1st degree A-V block Left axis deviation Minimal voltage criteria for LVH, may be normal variant ( [place] product ) Septal infarct (cited on or before 02-FEB-2021) Prolonged QT Abnormal ECG When compared with ECG of 15-JUL-2023 06:04, QT has lengthened Referred By: Dolores Cowan Electronically Signed By:NEY VIVEROS
[2023-07-19 04:00] VITALS: BP 162/60; PULSE 60; RESP 16; TEMP 36.6; O2SAT 96
[2023-07-19 10:01] VITALS: BP 94/50; PULSE 67; RESP 20; TEMP 36.2; O2SAT 94
[2023-07-19] MEDS: Aspirin Enteric Coated 81 MG TABLET.DR PO (11:07)
[2023-07-19] MEDS: Sevelamer Carbonate Tablet 800 MG TABLET PO (11:07)
[2023-07-19] MEDS: Venlafaxine HCL 25 MG TABLET PO (11:07)
[2023-07-19] MEDS: Tacrolimus 0.5 MG CAPSULE PO (11:07)
[2023-07-19] MEDS: Cholecalciferol (Vitamin D3) 25 MCG TABLET 50 MCG PO (11:08)
[2023-07-19] MEDS: allopurinoL 100 MG TABLET PO (11:10)
[2023-07-19] MEDS: Atorvastatin Calcium 20 MG TABLET PO (11:10)
[2023-07-19] MEDS: Famotidine 20 MG TABLET PO (11:10)
[2023-07-19 11:12] VITALS: BP 119/60; PULSE 70; RESP 19; TEMP 36.2; O2SAT 95
[2023-07-19 11:13] VITALS: BP 119/60; PULSE 70
[2023-07-19] MEDS: Metoprolol Tartrate 25 MG TABLET PO (11:13)
--- NOTE | 2023-07-19 12:35 | P.DS_ITS ---
DS: Providers Provider Date of Service: 07/19/23 Date of admission: 07/15/23 10:09 Date of discharge: 07/19/23 Primary care physician: Vanessa Hu MD DS: Diagnosis Discharge Diagnosis (1) ESRD (end stage renal disease) on dialysis: Status: Acute DS: Summary Hospital Course Hospital Course: 72-year-old female with history of CAD with history of NSTEMI, asthma/COPD overlap, hepatic cirrhosis, ESRD on dialysis awaiting renal transplant with AV fistula in placed, and heart failure reduced ejection fraction presented to the ED earlier today for evaluation of worsening dyspnea with exertion ongoing for 2.5 days. She is also reporting 10/10 retrosternal chest pressure that is nonradiating. There is also orthopnea, no ble edema or weight gain. Denies any shortness a breath at rest, lightheadedness, palpitations, or diaphoresis. No n ausea or vomiting. She does make a small amount of urine and is on dialysis scheduled for Friday, /Friday. Since arrival, vital signs stable. Hematology studies significant for a stable normocytic anemia with H/H 10.4/33.1%. Creatinine 6.87, BUN 28, electrolyte levels normal. Hepatic function within normal limits. Initial troponin 18.3, repeat pending. Negative for COVID-19, RSV, influenza. Chest x-ray shows vascular congestion interstitial edema. EKG shows sinus rhythm with first-degree AV aron block but no acute ischemic changes. ED discuss case with nephrology recommending admission for volume overload and dialysis. Hospital Course Admitted to telemetry and received 2 separate dialysis episode with marked improvement in her symptoms. At this point in time she is medically acceptable for discharge home and resume her services. She will follow-up with her dialysis as scheduled Friday and Friday Time Attestation Discharge Coordination Time (in mins): 35 Quality: Safe Use of Opioids Does Pt have an Active Cancer Diagnosis on the Problem List?: No Quality: Stroke Does the patient have a stroke diagnosis?: No Physical Exam 2 Vital Signs: Vital Signs: Last Vital Signs Temp 97.2 F 07/19/23 11:12 Pulse 70 07/19/23 11:13 Resp 19 07/19/23 11:12 BP 119/60 07/19/23 11:13 Pulse Ox 95 07/19/23 11:12 O2 Del Method Room Air 07/19/23 11:12 BMI result Body Mass Index 24.1 Const: Other: Awake alert no acute distress Resp: Other: Clear to auscultation bilaterally no rales rhonchi or wheezes Cardio: Other: No S4; positive S1-S2; no S3 murmurs rubs or gallops GI: Other: Soft nontender nondistended normoactive bowel sounds Extrem: Other: No edema bilaterally DS: Data Data Completed and Pending Completed studies during hospitalization [Text1]: Procedures Performance of Urinary Filtration, Intermittent, Less than 6 Hours Per Day (06/09/23) Supplement Left Inguinal Region with Synthetic Substitute, Open Approach (08/14/20) Discharge Plan Discharge Anticipated Discharge Date/Time: 07/19/23 12:33 Patient Disposition: Home Health Service Discharge Diagnosis: Acute diastolic congestive heart failure Referrals: Vanessa Hu MD [Primary Care Provider] - 1 Week Discharge Medications: Continued venlafaxine 25 mg tablet 1 tab PO DAILY ropinirole 0.5 mg tablet 1 tab PO BEDTIME hydroxyzine HCl 25 mg tablet 1 tab PO TID PRN (Reason: Itching) cholecalciferol (vitamin D3) 50 mcg (2,000 unit) tablet 1 tab PO DAILY allopurinol 100 mg tablet 100 mg PO DAILY oxycodone 5 mg tablet 1 tab PO BID PRN (Reason: Moderate Pain (Scale Score 5-6)) metoprolol tartrate 25 mg Tablet 25 mg PO BID Qty: 0 0RF Protocol: Hold for SBP/HR < HOLD for SBP < : 90 HOLD for HR < : 60 clonazepam 1 mg tablet 1 tab PO DAILY PRN (Reason: anxiety ) famotidine 20 mg tablet 1 tab PO BID rosuvastatin 5 mg tablet 1 tab PO DAILY albuterol sulfate [Ventolin HFA] 90 mcg/actuation HFA aerosol inhaler 1 puff INHALATION Q6H PRN (Reason: wheezing) calcium citrate 200 mg (950 mg) tablet 200 mg PO BID sevelamer carbonate 800 mg tablet 800 mg PO BIDWMEAL levothyroxine 88 mcg tablet 88 mcg PO DAILY tacrolimus 0.5 mg capsule 0.5 mg PO BID aspirin 81 mg tablet,delayed release (DR/EC) 81 mg PO DAILY Discharge Orders: Discharge Order (Routine); Ordered 07/19/23 Ordered By: Steve M Snow Diet: Advance to usual diet Activity on Discharge: As tolerated Stand Alone Forms: Patient Portal Discharge page Print Language: Sami Care Plan Goals: Resume all medicines as taken prior to hospitalization Health Concerns: Follow up with PCP next available appointment Plan of Treatment: Resume outpatient services/HD Assessment: See discharge summary
--- NOTE | 2023-07-19 12:50 | MHC.CM.PN ---
Patient has been medically cleared for dc to home today, with services. Patient is active with Rolanda SOTO, who has been notified of today's dc. IMM addressed with Patient; original was given to her and a copy has been placed on the chart.
== END 2023-07-19 13:55 | disposition home health service (06) | DRG 291 ==
LOC: HO.ED 09:06 → HO.EDOVER 10:18 → HO.IMC 07-16 07:49 → HO.EDOVER 07-16 08:23 → HO.IMC 07-17 06:09
PROVIDERS: Admitting Provider Physician Assistant; Emergency Provider Emergency Medicine; PCP Pediatrics; Visit Provider Hospitalist
DX: I50.23 Acute on chronic systolic (congestive) heart failure (principal); N18.6 End stage renal disease; Z94.4 Liver transplant status; D63.1 Anemia in chronic kidney disease; E03.9 Hypothyroidism, unspecified; I25.10 Atherosclerotic heart disease of native coronary artery without angina pectoris; Z76.82 Awaiting organ transplant status; Z20.822 Contact with and (suspected) exposure to COVID-19; Z87.891 Personal history of nicotine dependence; Z99.2 Dependence on renal dialysis; Z79.82 Long term (current) use of aspirin; Z79.621 Long term (current) use of calcineurin inhibitor; Z79.890 Hormone replacement therapy; Z79.899 Other long term (current) drug therapy
CPT/HCPCS: 0241U; 36415; 71045; 80048; 80053; 84484; 85025; 90999; 93005; 93306; 94640; 97162; 99285; J1940; Q9957

== ENCOUNTER → 2023-07-15 06:04 | Outpatient (BNV) | payer OTHER, SELFPAY | PROVIDERS: Admitting Provider Physician Assistant; Emergency Provider Emergency Medicine; PCP Pediatrics; Visit Provider Internal Medicine | DX: I44.0 Atrioventricular block, first degree (principal) | CPT/HCPCS: 93010 ==

== ENCOUNTER 2023-07-15 10:09 | Outpatient (BNV) | payer OTHER, SELFPAY | END 2023-07-19 00:13 | PROVIDERS: Admitting Provider Physician Assistant; Emergency Provider Emergency Medicine; PCP Pediatrics; Visit Provider Internal Medicine | DX: I44.0 Atrioventricular block, first degree (principal) | CPT/HCPCS: 93010 ==

== ENCOUNTER 2023-07-15 10:09 | Outpatient (BNV) | payer OTHER, SELFPAY | END 2023-07-16 07:00 | PROVIDERS: Admitting Provider Physician Assistant; Emergency Provider Emergency Medicine; PCP Pediatrics; Visit Provider Internal Medicine | DX: I50.30 Unspecified diastolic (congestive) heart failure (principal); I34.0 Nonrheumatic mitral (valve) insufficiency | CPT/HCPCS: 93306 ==

== ENCOUNTER → 2023-07-15 10:09 | Outpatient (BNV) | payer OTHER, SELFPAY | PROVIDERS: Admitting Provider Physician Assistant; Emergency Provider Emergency Medicine; PCP Pediatrics; Visit Provider Physician Assistant | DX: N18.6 End stage renal disease (principal); Z99.2 Dependence on renal dialysis | CPT/HCPCS: 99223; 99232; 99239 ==

== ENCOUNTER → 2023-07-15 10:09 | Outpatient (BNV) | payer OTHER, SELFPAY | PROVIDERS: Admitting Provider Physician Assistant; Emergency Provider Emergency Medicine; PCP Pediatrics; Visit Provider Internal Medicine Hypertension Specialist | DX: N18.6 End stage renal disease (principal); Z99.2 Dependence on renal dialysis | CPT/HCPCS: 99223; 99232 ==

== ENCOUNTER 2023-09-26 17:46 | Outpatient (REF) | payer OTHER, SELFPAY | END 2023-09-26 17:47 | disposition home or self-care (01) | LOC: HO.HHCLNP 17:46 | PROVIDERS: Visit Provider Pediatrics | DX: S31.109A Unspecified open wound of abdominal wall, unspecified quadrant without penetration into peritoneal cavity, initial encounter (principal) | CPT/HCPCS: 87070; 87077; 87186; 87205 ==

== ENCOUNTER 2023-11-03 13:04 | Outpatient (REF) | payer OTHER, SELFPAY ==
[2023-11-03 13:15] VITALS: BP 191/80; PULSE 58; RESP 17; TEMP 36.2; O2SAT 97; BMI 22.8
== END 2023-11-03 13:05 | disposition home or self-care (01) ==
LOC: HO.MS 13:04
PROVIDERS: PCP Pediatrics; Visit Provider Ophthalmology
PROC: (CPT 66821; principal; 2023-11-03 13:30)
DX: H26.491 Other secondary cataract, right eye (principal)
CPT/HCPCS: 66821

== ENCOUNTER 2023-11-04 15:28 | Outpatient (REF) | payer OTHER, SELFPAY ==
--- NOTE | ~2023-11-04 | CT_ITS ---
EXAMINATION: CT CHEST WITHOUT CONTRAST CLINICAL INFORMATION: Laryngeal lesion COMPARISON: Same day neck CT TECHNIQUE: Multidetector volumetric CT imaging of the chest was done. Axial MIP volume rendering provided. Sagittal and coronal reformatted images were obtained. This CT examination was performed using dose optimization techniques as appropriate, variously including the following: *Automated exposure control *Adjustment of mA and/or kV according to patient size (this includes techniques or standardized protocols for targeted exams where dose is matched to indication/reason for exam; i.e. extremities or head) *Use of iterative reconstruction technique DLP: 281 mGy-cm FINDINGS: [employer]: Intrathecal device and upper abdominal surgical clips. Right base atelectasis. TAVR prosthesis. LUNGS: Trachea bronchi are patent. Bilateral lower lobe, right middle, left upper and lingular atelectasis. No consolidations or groundglass opacities. No suspicious lung nodules. MEDIASTINUM: No thyroid abnormality. Mildly thickened esophagus small hiatal hernia. Nonspecific mediastinal lymph node prominence, largest measures 1.3 cm in the pretracheal region. Heart is enlarged. No pericardial effusion. Mild calcifications nonaneurysmal aorta. Mildly ectatic pulmonary arteries. CORONARY ARTERY CALCIFICATION: Mild PLEURA: There is no pleural effusion. No pleural mass or thickening. AXILLA: No lymphadenopathy. UPPER ABDOMEN: Multiple upper abdominal surgical clips. Atrophic kidneys with vascular calcifications versus nonobstructing calculi. OSSEOUS STRUCTURES: Degenerative changes. Mild compression deformities. Thoracic intrathecal device. CT/CT chest wo IV con IMPRESSION: No CT evidence of intrathoracic metastatic disease. Prominent, nonspecific mediastinal lymph nodes. Atelectasis. Electronically signed by: Kiah Mejia MD 12/02/2023 03:32 PM EDT
--- NOTE | ~2023-11-04 | CT_ITS ---
NECK CT WITH IV CONTRAST INDICATION: Laryngeal lesion. COMPARISON: Cervical spine CT June 12, 2023. TECHNIQUE: Multidetector CT acquisition of the neck was obtained following the administration of 60 cc of Omnipaque 350IV contrast. Multiplanar reformats were acquired and utilized for image interpretation. This CT examination was performed using dose optimization techniques as appropriate, variously including the following: *Automated exposure control *Adjustment of mA and/or kV according to patient size (this includes techniques or standardized protocols for targeted exams where dose is matched to indication/reason for exam; i.e. extremities or head) *Use of iterative reconstruction technique FINDINGS: Possible nodular soft tissue density involving the posterior commissure of the glottis just above and posterior to the arytenoids can be correlated with laryngoscopy or PET/CT. Asymmetric enlargement of the left laryngeal ventricle which remains well aerated. The parotid glands are homogeneous in attenuation. The submandibular glands are normal. The thyroid gland is normal. No retropharyngeal fluid collection is seen. The parapharyngeal fat is preserved. Retropharyngeal course of the common carotid arteries bilaterally and the proximal internal carotid arteries bilaterally. The superior mediastinum is unremarkable. The lung apices are clear. The mastoid air cells and visualized portions of the paranasal sinuses are well-aerated. There is advanced multilevel cervical spondylosis. No suspicious osseous findings. The paranasal sinuses and the mastoid air cells are clear. TMJs are unremarkable. The imaged portions of the brain parenchyma are unremarkable. CT/CT soft tissue neck w IV con IMPRESSION: * Possible nodular soft tissue density involving the posterior commissure of the glottis just above and posterior to the arytenoids can be correlated with laryngoscopy or PET/CT. Asymmetric enlargement of the left laryngeal ventricle which remains well aerated. * Retropharyngeal course of the common carotid arteries bilaterally and the proximal internal carotid arteries bilaterally. * Advanced cervical spondylosis. Electronically signed by: Kevin Yarbrough MD 11/30/2023 12:39 PM EDT
[2023-11-04] MEDS: iohexoL 350 MG/ML 75 ML INFUS..BTL 60 ML IV (16:20)
[2023-11-10 08:36] LABS: Creatinine POC 1.8 mg/dL (0.5-1.4); GFR POC 30
== END 2023-11-04 15:29 | disposition home or self-care (01) ==
LOC: HO.CT 15:28
PROVIDERS: PCP Pediatrics; Visit Provider Otolaryngology
DX: J38.2 Nodules of vocal cords (principal); J38.01 Paralysis of vocal cords and larynx, unilateral
CPT/HCPCS: 70491; 71250; 82565; Q9967

== ENCOUNTER 2023-11-11 21:11 | Emergency (ER) | payer OTHER, SELFPAY ==
[2023-11-11 21:38] VITALS: BP 122/76; PULSE 68; O2SAT 100
[2023-11-11 21:52] VITALS: BP 124/70; PULSE 68; RESP 18; TEMP 37.2; O2SAT 95
[2023-11-11 22:27] VITALS: BP 124/70; PULSE 68; RESP 18; TEMP 37.2; O2SAT 95; BMI 23.0
--- NOTE | 2023-11-11 22:46 | PC.NURSE ---
pt presents to department from home s/p mohs procedure on back and left jawline. per pt incision at left jawline began ozzing en route home via EMS from [place]. Pt sts that she attempted to hold pressure to the site however the bleeding continued and she called EMS. on arrival pt has soaked through a large towel and a t-shirt. of note pt is on dialysis, last dialysis prior to procedure. This nurse rec phonce call from Angeles Mir MD at [facility] (cell#[phone]) sts that pt procedure was routine in nature, no complications, sts pt has deep monochrome sutures in place, in addition to prolene. pt a &o x4 vital signs stable, bleeding to site controlled to a slow ooze at this time. pt continues to hold pressure to area. awaiting provider evaluation.
--- NOTE | 2023-11-11 23:16 | ED_ITS ---
HPI - General Adult General Chief complaint: Extremity Problem Stated complaint: SURGICAL SITE ON FACE BLEEDING SINCE 3PM Time Seen by Provider: 11/11/23 23:16 History of Present Illness ED Provider: Osiel PINTO narrative: The patient is a 73-year-old woman who had a Mohs procedure for a biopsy on the left side of her neck just under the left jaw at a dermatology clinic at [facility] in [place] earlier today. As she was being driven back home to [place] she started to have bleeding from the site of the procedure. The bleeding has been persistent and she ultimately came to the emergency room. Related Data Home Medications ?Medication ?Instructions ?Recorded ?Confirmed aspirin 81 mg tablet,delayed 81 mg PO DAILY 01/26/20 07/15/23 release allopurinol 100 mg tablet 100 mg PO DAILY 03/08/20 07/15/23 cholecalciferol (vitamin D3) 50 1 tab PO DAILY 08/14/20 07/15/23 mcg (2,000 unit) tablet hydroxyzine HCl 25 mg tablet 1 tab PO TID PRN Itching 08/14/20 07/15/23 ropinirole 0.5 mg tablet 1 tab PO BEDTIME 08/14/20 07/15/23 venlafaxine 25 mg tablet 1 tab PO DAILY 08/14/20 07/15/23 oxycodone 5 mg tablet 1 tab PO BID PRN Moderate Pain 02/01/21 07/15/23 (Scale Score 5-6) clonazepam 1 mg tablet 1 tab PO DAILY PRN anxiety 01/14/22 07/15/23 famotidine 20 mg tablet 1 tab PO BID 01/14/22 07/15/23 rosuvastatin 5 mg tablet 1 tab PO DAILY 01/14/22 07/15/23 levothyroxine 88 mcg tablet 88 mcg PO DAILY 01/20/23 07/15/23 albuterol sulfate 90 mcg/actuation 1 puff inhalation Q6H PRN wheezing 06/09/23 07/15/23 aerosol inhaler (Ventolin HFA) calcium citrate 200 mg (950 mg) 200 mg PO BID 06/09/23 07/15/23 tablet sevelamer carbonate 800 mg tablet 800 mg PO BIDWMEAL 06/09/23 07/15/23 tacrolimus 0.5 mg capsule, 0.5 mg PO BID 07/15/23 07/15/23 immediate-release Previous Rx's ?Medication ?Instructions ?Recorded metoprolol tartrate 25 mg tablet 25 mg PO BID #0 tabs 02/07/21 Allergies Allergy/AdvReac Type Severity Reaction Status Date / Time Sulfa (Sulfonamide Allergy Intermediate HIVES Verified 11/12/23 12:30 Antibiotics) Heparin Analogues Allergy Unknown UNKNOWN Verified 11/12/23 12:30 [Heparin Agents] verapamil Allergy Unknown unknown Verified 11/12/23 12:30 Review of Systems Review of Systems: Yes all other systems are reviewed and are negative [facility] Past Medical History Medical History ESRD (end stage renal disease) on dialysis Congestive heart failure Patient on waiting list for kidney transplant Gout History of transcatheter aortic valve replacement (TAVR) History of blood transfusion GERD (gastroesophageal reflux disease) Anxiety and depression AV fistula Hemodialysis patient COVID-19 vaccine series completed Murmur Hyperkalemia Left inguinal hernia DJD (degenerative joint disease) of thoracic spine Neuropathy End-stage renal disease (ESRD) COPD (chronic obstructive pulmonary disease) Coronary artery disease Bronchitis Asthma Arthritis Anemia Cirrhosis Surgical History Hx of colonoscopy History of liver transplant History of surgery on arm Social History Social History Household Members: None Housing: Apartment Are you a primary direct care worker to a significant other at home: No Do you presently have visiting nurse or other home services: Yes Unable to assess alcohol history related to: Unable to respond Alcohol intake: former Year quit: 2008 Comment: pt refused bed alarm Patient Tobacco Use Status: Former Tobacco user Tobacco use type: Cigarette Cigarette Packs Per Day: 2 Cigarettes Per Day: 40.0 Years Smoked: 25 e-Cigarette/Vaping Use: Never Used Second Hand Smoke Exposure: No Advance Directives Date on File: 03/08/20 service: No Current occupational status: retired Physical Exam ED Vital Signs: Vital Signs - 24 hr 11/11/23 21:52 11/11/23 22:27 Temperature 98.9 F 98.9 F Pulse Rate 68 68 Respiratory Rate 18 18 Blood Pressure 124/70 124/70 Pulse Oximetry 95 95 Oxygen Delivery Method Room Air Room Air BMI result Body Mass Index 23.0 Const Other: The patient is a chronically ill-appearing 73-year-old woman who was awake and alert. She does not appear obviously acutely ill and she was holding a blood- soaked gauze to the left side of her neck. HENNJ Other: No facial lesions. There is a wound to the left upper neck described separately. Eyes General: appearance normal, both eyes and all related structures Neck Other: The patient has a sutured wound just under the angle of the left jaw. There was blood oozing from the center of the wound. The wound was about 4 cm in length. There was no dehiscence or opening of the wound. Resp Effort & Inspection: normal respiratory effort Auscultation: clear to auscultation bilaterally Cardio Rate: regular rate Rhythm: regular rhythm Heart sounds: S1 normal heart sound present and S2 normal heart sound present Skin Other: The patient has blood oozing from a surgical sutured wound under the angle of the left jaw. She also has a dressing on her upper back which I took down. There was no bleeding from the wound on the upper back. Extrem Other: No peripheral edema Medications Administered Discontinued Medications Generic Name Dose Route Start Last Admin Trade Name Yuvalq PRN Reason Stop Dose Admin Lidocaine/Epinephrine 10 ml 11/11/23 23:24 11/11/23 23:56 Lidocaine Hcl 1%/Epi 1:100,000 30 Ml Vial INFILTRATI 11/11/23 23:25 10 ml ONCE ONE Administration Medical Decision Making Medical Decision Making [facility] Narrative: Patient presents with bleeding from a surgical wound following a Mohs procedure several hours ago. The patient is not on anticoagulation although she does take aspirin. I prepped the skin and injected the area with lidocaine with epinephrine. I then placed a single [id number]-[id number] suture using 5 0 Prolene in the region of the bleeding. This was placed across the sutures that are in place. I then placed a Surgicel gauze over the sutured wound. The patient was observed for a couple of hours with no significant bleeding. I felt she was appropriate for discharge at that point. Procedure note: Procedure: Placement of a [id number]-[id number] suture for bleeding control Details: There was blood oozing from a sutured wound on the left side of the upper neck under the angle of the jaw where the patient had had a Mohs biopsy procedure several hours earlier in the day. The skin was prepped with Betadine. The area of bleeding in the center of the wound where oozing was present was injected with 1% lidocaine with epinephrine. Under sterile conditions I placed a [id number] suture across the region of bleeding using 5 0 Prolene. I applied some mild tension to the closure of the suture. I then placed a Surgicel dressing over the suture and then a larger dressing around the patient's head. Patient tolerated the procedure well. Discharge Plan Discharge Clinical Impression: Bleeding from wound Patient Disposition: Home, Self-Care Additional Instructions: I placed a ?figure of 8 suture in the area of bleeding at the wound under your left dior. This seems to have helped stop the bleeding. This suture should be removed in about a week. Visiting nurses may change your dressings on as scheduled. Please stay in touch with the dermatology team at [place]. Return to the emergency room if significantly worse. Prescriptions: No Action venlafaxine 25 mg tablet 1 tab PO DAILY ropinirole 0.5 mg tablet 1 tab PO BEDTIME hydroxyzine HCl 25 mg tablet 1 tab PO TID PRN (Reason: Itching) cholecalciferol (vitamin D3) 50 mcg (2,000 unit) tablet 1 tab PO DAILY allopurinol 100 mg tablet 100 mg PO DAILY oxycodone 5 mg tablet 1 tab PO BID PRN (Reason: Moderate Pain (Scale Score 5-6)) metoprolol tartrate 25 mg Tablet 25 mg PO BID Qty: 0 0RF Protocol: Hold for SBP/HR < HOLD for SBP < : 90 HOLD for HR < : 60 clonazepam 1 mg tablet 1 tab PO DAILY PRN (Reason: anxiety ) famotidine 20 mg tablet 1 tab PO BID rosuvastatin 5 mg tablet 1 tab PO DAILY albuterol sulfate [Ventolin HFA] 90 mcg/actuation HFA aerosol inhaler 1 puff INHALATION Q6H PRN (Reason: wheezing) calcium citrate 200 mg (950 mg) tablet 200 mg PO BID sevelamer carbonate 800 mg tablet 800 mg PO BIDWMEAL levothyroxine 88 mcg tablet 88 mcg PO DAILY tacrolimus 0.5 mg capsule 0.5 mg PO BID aspirin 81 mg tablet,delayed release (DR/EC) 81 mg PO DAILY Referrals: Vanessa Hu MD [Primary Care Provider] - Interventions: ED Discharge Assessment Last Done: 11/12/23 01:42 Discharge Date/Time: 11/12/23 03:06 Print Language: [place]
[2023-11-12 01:42] VITALS: BP 124/70; PULSE 68; RESP 18; TEMP 37.2; O2SAT 95
== END 2023-11-12 03:06 | disposition home or self-care (01) ==
PROVIDERS: Emergency Provider Emergency Medicine; PCP Pediatrics
DX: L76.21 Postprocedural hemorrhage of skin and subcutaneous tissue following a dermatologic procedure (principal); Y83.8 Other surgical procedures as the cause of abnormal reaction of the patient, or of later complication, without mention of misadventure at the time of the procedure; Y92.810 Car as the place of occurrence of the external cause; D69.6 Thrombocytopenia, unspecified; J45.909 Unspecified asthma, uncomplicated; I12.0 Hypertensive chronic kidney disease with stage 5 chronic kidney disease or end stage renal disease; N18.6 End stage renal disease; Z99.2 Dependence on renal dialysis; I48.0 Paroxysmal atrial fibrillation; Z95.2 Presence of prosthetic heart valve; Z87.891 Personal history of nicotine dependence
CPT/HCPCS: 12002; 99284

== ENCOUNTER 2023-11-12 11:59 | Emergency (ER) | payer OTHER, SELFPAY ==
[2023-11-12] VITALS (7 sets, daily range): BP systolic 155–193; BP diastolic 64–94; PULSE 53–65; RESP 15–18; TEMP 36.6–36.7; O2SAT 97–100; BMI 23.5
--- NOTE | 2023-11-12 12:01 | ED.GENADULT ---
HPI - General Adult General Chief complaint: Wound/Laceration Stated complaint: FACIAL BLEEDING S/P SURGERY T-1 PER EMS Source: patient and EMS Mode of arrival: EMS Limitations: no limitations History of Present Illness ED Provider: MAGNO HPI narrative: 73 yo female with PMH of NSTEMI, PAF, ESRD on HD, UTI, AMS, s/p TAVR, angina, metabolic encephalopathy, hypothyroidism, HLD, only on aspirin daily here with recent Mohs procedure L jaw at [facility] in [facility] yesterday she didn't even make the ride home and it started to bleed. She was just seen here and discharged with figure 8 stitch went home and notes there are just puddles and drops of blood everywhere. She has a pad of blood here with clots as well. She did take aspirin. She also notes that at HD yesterday they had a hard time stopping the bleeding but told her they nicked the artery. MD complaint: bleeding from surgical site Onset (ago): hour(s) (24) Location: face Radiation: non-radiation Severity: moderate Relieving factors: none Exacerbating factors: movement Associated symptoms: denies other symptoms Treatments prior to arrival: other (s/p injection of lidocaine and figure 8 stitch) Related Data Home Medications ?Medication ?Instructions ?Recorded ?Confirmed aspirin 81 mg tablet,delayed 81 mg PO DAILY 01/26/20 07/15/23 release allopurinol 100 mg tablet 100 mg PO DAILY 03/08/20 07/15/23 cholecalciferol (vitamin D3) 50 1 tab PO DAILY 08/14/20 07/15/23 mcg (2,000 unit) tablet hydroxyzine HCl 25 mg tablet 1 tab PO TID PRN Itching 08/14/20 07/15/23 ropinirole 0.5 mg tablet 1 tab PO BEDTIME 08/14/20 07/15/23 venlafaxine 25 mg tablet 1 tab PO DAILY 08/14/20 07/15/23 oxycodone 5 mg tablet 1 tab PO BID PRN Moderate Pain 02/01/21 07/15/23 (Scale Score 5-6) clonazepam 1 mg tablet 1 tab PO DAILY PRN anxiety 01/14/22 07/15/23 famotidine 20 mg tablet 1 tab PO BID 01/14/22 07/15/23 rosuvastatin 5 mg tablet 1 tab PO DAILY 01/14/22 07/15/23 levothyroxine 88 mcg tablet 88 mcg PO DAILY 01/20/23 07/15/23 albuterol sulfate 90 mcg/actuation 1 puff inhalation Q6H PRN wheezing 06/09/23 07/15/23 aerosol inhaler (Ventolin HFA) calcium citrate 200 mg (950 mg) 200 mg PO BID 06/09/23 07/15/23 tablet sevelamer carbonate 800 mg tablet 800 mg PO BIDWMEAL 06/09/23 07/15/23 tacrolimus 0.5 mg capsule, 0.5 mg PO BID 07/15/23 07/15/23 immediate-release Previous Rx's ?Medication ?Instructions ?Recorded metoprolol tartrate 25 mg tablet 25 mg PO BID #0 tabs 02/07/21 Allergies Allergy/AdvReac Type Severity Reaction Status Date / Time Sulfa (Sulfonamide Allergy Intermediate HIVES Verified 11/12/23 12:30 Antibiotics) Heparin Analogues Allergy Unknown UNKNOWN Verified 11/12/23 12:30 [Heparin Agents] verapamil Allergy Unknown unknown Verified 11/12/23 12:30 Review of Systems Review of Systems: Constitutional : No Fever, No Chills, No Fatigue ENT/Mouth : No sore throat, No Rhinorrhea Eyes: No Eye Pain, No Swelling, No Redness Cardiovascular : No Chest Pain, No SOB, No Dyspnea on Exertion Respiratory : No Cough, No Sputum Gastrointestinal : No Nausea, No Vomiting, No Diarrhea, No abdominal Pain Genitourinary : No Dysuria, No Urinary Frequency, No Hematuria, Musculoskeletal : No joint pain, No Myalgias, No Joint Swelling Skin : pos bleeding skin lesion, No rash Neuro : No Weakness, No Numbness, No Dizziness, no Headache Psych : No Anxiety/Panic, No Depression Heme/Lymph: No Bruising, No Bleeding,No Lymphadenopathy All other systems reviewed and are negative [facility] Past Medical History Attestation statement: The following information was validated with the patient. Source: old records reviewed Medical History ESRD (end stage renal disease) on dialysis Congestive heart failure Patient on waiting list for kidney transplant Gout History of transcatheter aortic valve replacement (TAVR) History of blood transfusion GERD (gastroesophageal reflux disease) Anxiety and depression AV fistula Hemodialysis patient COVID-19 vaccine series completed Murmur Hyperkalemia Left inguinal hernia DJD (degenerative joint disease) of thoracic spine Neuropathy End-stage renal disease (ESRD) COPD (chronic obstructive pulmonary disease) Coronary artery disease Bronchitis Asthma Arthritis Anemia Cirrhosis Surgical History Hx of colonoscopy History of liver transplant History of surgery on arm Social History Social History Household Members: None Housing: Apartment Are you a primary lead caregiver to a significant other at home: No Do you presently have visiting nurse or other home services: Yes Unable to assess alcohol history related to: Unable to respond Alcohol intake: former Year quit: 2008 Comment: pt refused bed alarm Patient Tobacco Use Status: Former Tobacco user Tobacco use type: Cigarette Cigarette Packs Per Day: 2 Cigarettes Per Day: 40.0 Years Smoked: 25 e-Cigarette/Vaping Use: Never Used Second Hand Smoke Exposure: No Advance Directives: Yes Advance Directives on File: Yes Advance Directives Date on File: 03/08/20 Do you have a plan to hurt others: No Plan service: No Current occupational status: retired Physical Exam ED Vital Signs: Vital Signs - 24 hr 11/12/23 12:16 11/12/23 12:17 Temperature 98 F Pulse Rate 53 53 Respiratory Rate 18 15 Blood Pressure 159/64 H 159/94 H Pulse Oximetry 100 97 Oxygen Delivery Method Room Air Room Air BMI result Body Mass Index 23.5 Appearance: Alert. Oriented X3. No acute distress. Eyes: Pupils equal, round and reactive to light. ENT: Pharynx normal. active oozing from Mohs site she has a bandage that is saturated with blood and clots are noted it is not pulsatile Neck: Normal inspection. Neck supple. CVS: Normal heart rate and rhythm. Pulses normal. Respiratory: No respiratory distress. Breath sounds normal. Abdomen: Soft and nontender. Skin: Skin warm and dry. Normal skin color. Normal skin turgor. Extremities: No lower extremity edema. No calf ttp Neuro: Oriented X 3. No motor deficit. No sensory deficit. Medications Administered Discontinued Medications Generic Name Dose Route Start Last Admin Trade Name Freq PRN Reason Stop Dose Admin Lidocaine/Epinephrine 10 ml 11/12/23 12:19 11/12/23 12:31 Lidocaine Hcl 1%/Epi 1:100,000 10 Ml Vial SUBCUT 11/12/23 12:20 10 ml ONCE ONE Administration Medical Decision Making Medical Decision Making [facility] Narrative: 73 yo female with PMH of NSTEMI, PAF, UTI, AMS, s/p TAVR, angina, metabolic encephalopathy, hypothyroidism, HLD, only on aspirin daily here with c/o persistent bleeding from Mohs site at this time will need basic labs check plts I am going to call surgery as she is continuing to bleed despite a good placement of sutures - she may need CTA imaging as well. Differential Diagnosis Differential Diagnoses: The differential diagnosis associated with the presentation includes bleeding from surgical site, thrombocytopenia Admission/Observation Consideration of admission/observation: Escalation of care including admission/observation considered 9.1 hemoglobin slightly lower but last check 2022 VS stable no further bleeding will have them recheck hemoglobin tomorrow at HD Consult Healthcare Provider Management of the patient was discussed with: Customs Investigator Dr. Hyde attempting local procedure no imaging indicated at this time states this does happen post Mohs reinforced stitches and surgicel with pressure dressing Lab Data [facility] Lab Attestation statement: I reviewed the patient's lab results. 11/12/23 12:48 11/12/23 12:48 Labs: Lab Results 11/12/23 Range/Units 12:48 WBC 6.4 (4.8-10.8) X10*3/uL RBC 2.99 L D (4.20-5.50) X10*6/uL Hgb 9.1 L D (12.0-16.0) g/dl Hct 29.4 L (37.0-47.0) % MCV 98.3 H (80.0-98.0) fL MCH 30.4 (27.0-33.0) pg MCHC 31.0 (31.0-35.0) g/dl RDW 14.7 (11.0-16.0) % Plt Count 180 (160-400) X10*3/uL MPV 11.9 (9.4-12.3) fL Immature Gran % (Auto) 0.2 (0.0-0.4) % Neut % (Auto) 63.2 (45-73) % Lymph % (Auto) 18.6 L (20-40) % Moffat % (Auto) 13.5 H (2-11) % Eos % (Auto) 4.2 H (0-4) % Baso % (Auto) 0.3 (0-2) % Lymph # (Auto) 1.2 (1.2-4.9) X10*3/uL Moffat # (Auto) 0.9 (0.1-1.2) X10*3/uL Eos # (Auto) 0.3 (0.0-0.4) X10*3/uL Baso # (Auto) 0.0 (0.0-0.2) X10*3/uL Abs Immat Gran (auto) 0.01 (0.00-0.03) X10*3/uL Absolute Neuts (auto) 4.0 (2.0-8.3) x10*3/uL Absolute Nucleated RBC 0.000 (0.0-0.012) X10*3/uL Nucleated RBC % (auto) 0.0 (0.0-0.2) /100WBC PT 11.8 (11.1-13.3) SEC INR 1.0 (0.9-1.1) Sodium 139 (135-145) mmol/L Potassium 5.3 H (3.3-5.1) mmol/L Chloride 103 (96-108) mmol/L Carbon Dioxide 27 (22-29) mmol/L Anion Gap 14 (12-20) BUN 21 H (9-16) mg/dL Creatinine 4.85 H* (0.5-1.4) mg/dL Estim Creat Clear Calc 10.5 Estimated GFR 9 Random Glucose 90 (60-115) mg/dL Calcium 9.8 D (8.4-10.2) mg/dL Blood Type B Positive Antibody Screen POSITIVE Antibody Identification Anti-K YUVAL, Polyspecific NEGATIVE Positive YUVAL Work-up TNP Crossmatch (AHG) See Detail Independent Historian Clinical information obtained from an independent historian. History obtained from or confirmed by: EMS External Record Review External record reviewed: Inpatient record Discharge Plan Discharge Clinical Impression: Bleeding Patient Disposition: Home, Self-Care Instructions: Care For Your Stitches (DC) Additional Instructions: can change dressing tomorrow follow up with Dr. Hyde in one week call to schedule appointment return for increased pain, redness, fever, yellow drainage you did drop your hemoglobin slightly to 9.1 dialysis your doctor should recheck tomorrow. Prescriptions: No Action venlafaxine 25 mg tablet 1 tab PO DAILY ropinirole 0.5 mg tablet 1 tab PO BEDTIME hydroxyzine HCl 25 mg tablet 1 tab PO TID PRN (Reason: Itching) cholecalciferol (vitamin D3) 50 mcg (2,000 unit) tablet 1 tab PO DAILY allopurinol 100 mg tablet 100 mg PO DAILY oxycodone 5 mg tablet 1 tab PO BID PRN (Reason: Moderate Pain (Scale Score 5-6)) metoprolol tartrate 25 mg Tablet 25 mg PO BID Qty: 0 0RF Protocol: Hold for SBP/HR < HOLD for SBP < : 90 HOLD for HR < : 60 clonazepam 1 mg tablet 1 tab PO DAILY PRN (Reason: anxiety ) famotidine 20 mg tablet 1 tab PO BID rosuvastatin 5 mg tablet 1 tab PO DAILY albuterol sulfate [Ventolin HFA] 90 mcg/actuation HFA aerosol inhaler 1 puff INHALATION Q6H PRN (Reason: wheezing) calcium citrate 200 mg (950 mg) tablet 200 mg PO BID sevelamer carbonate 800 mg tablet 800 mg PO BIDWMEAL levothyroxine 88 mcg tablet 88 mcg PO DAILY tacrolimus 0.5 mg capsule 0.5 mg PO BID aspirin 81 mg tablet,delayed release (DR/EC) 81 mg PO DAILY Print Language: Albanian
[2023-11-12] MEDS: Lidocaine HCl 1%/Epi 1:100,000 10 ML VIAL SUBCUT (12:31)
[2023-11-12 12:54] LABS: MANUAL DIFF FLAG NO
[2023-11-12 13:09] LABS: Prothrombin Time 11.8 SEC (11.1-13.3)
--- NOTE | 2023-11-12 13:17 | P.CONGS_ITS ---
History of Present Illness Consult details Consult date: 11/12/23 Requesting physician: Jessica Neal Narrative: 73-year-old female patient with a history of end-stage renal disease, cirrhosis, status post TAVR, status post Mohs surgery to left face at the angle of the mandible for a squamous cell carcinoma ([facility], Dr. Tillman) performed yesterday returning to the ED this morning with bleeding from the incision. An attempt at a [id number] suture placement did not stop the bleeding. She reports being only on baby aspirin and is not currently on oral anticoagulants. Surgical consultation was requested to obtain hemostasis. Review of Systems 2 Review of Systems: Yes all other systems are reviewed and are negative Constitutional: Constitutional: Denies chills, Denies fever(s), Denies headache(s), Denies poor appetite and Denies weakness ENT: Denies headache(s) Cardiovascular: Cardiovascular: Denies chest pain, Denies irregular heart rhythm, Denies palpitations and Denies dyspnea Respiratory: Respiratory: Denies cough, Denies excessive phlegm production and Denies dyspnea Gastrointestinal: Gastrointestinal: Denies abdominal pain, Denies bloating, Denies change in bowel habits, Denies constipation, Denies heartburn, Denies diarrhea, Denies nausea and Denies vomiting Genitourinary: Genitourinary: Denies urinary frequency Musculoskeletal: Musculoskeletal: Denies back pain, Denies muscle weakness and Denies numbness Integumentary/Breasts: Skin/Breast: Denies changing lesions and Denies unusual bruising Neurologic: Denies headache(s), Denies numbness, Denies paresthesias and Denies weakness Psychiatric: Psychiatric: Denies anxiety and Denies depression Endocrine: Endocrine: Denies palpitations Hematologic/Lymphatic: Hematologic/Lymphatic: Denies lymphadenopathy [facility] Past Medical History Medical History ESRD (end stage renal disease) on dialysis Congestive heart failure Patient on waiting list for kidney transplant Gout History of transcatheter aortic valve replacement (TAVR) History of blood transfusion GERD (gastroesophageal reflux disease) Anxiety and depression AV fistula Hemodialysis patient COVID-19 vaccine series completed Murmur Hyperkalemia Left inguinal hernia DJD (degenerative joint disease) of thoracic spine Neuropathy End-stage renal disease (ESRD) COPD (chronic obstructive pulmonary disease) Coronary artery disease Bronchitis Asthma Arthritis Anemia Cirrhosis Surgical History Surgical History Hx of colonoscopy History of liver transplant History of surgery on arm Social History Social History Household Members: None Housing: Apartment Are you a primary critical care specialist to a significant other at home: No Do you presently have visiting nurse or other home services: Yes Unable to assess alcohol history related to: Unable to respond Alcohol intake: former Year quit: 2008 Comment: pt refused bed alarm Patient Tobacco Use Status: Former Tobacco user Tobacco use type: Cigarette Cigarette Packs Per Day: 2 Cigarettes Per Day: 40.0 Years Smoked: 25 e-Cigarette/Vaping Use: Never Used Second Hand Smoke Exposure: No Advance Directives: Yes Advance Directives on File: Yes Advance Directives Date on File: 03/08/20 Do you have a plan to hurt others: No Plan service: No Current occupational status: retired Meds Allergies Allergy/AdvReac Type Severity Reaction Status Date / Time Sulfa (Sulfonamide Allergy Intermediate HIVES Verified 11/12/23 12:30 Antibiotics) Heparin Analogues Allergy Unknown UNKNOWN Verified 11/12/23 12:30 [Heparin Agents] verapamil Allergy Unknown unknown Verified 11/12/23 12:30 Home Medications ?Medication ?Instructions ?Recorded ?Confirmed ?Last Taken ?Type aspirin 81 mg tablet,delayed 81 mg PO DAILY 01/26/20 07/15/23 07/14/23 History release allopurinol 100 mg tablet 100 mg PO DAILY 03/08/20 07/15/23 07/14/23 History cholecalciferol (vitamin D3) 50 1 tab PO DAILY 08/14/20 07/15/23 07/14/23 History mcg (2,000 unit) tablet hydroxyzine HCl 25 mg tablet 1 tab PO TID PRN Itching 08/14/20 07/15/23 04/04/23 History ropinirole 0.5 mg tablet 1 tab PO BEDTIME 08/14/20 07/15/23 07/14/23 History venlafaxine 25 mg tablet 1 tab PO DAILY 08/14/20 07/15/23 07/14/23 History oxycodone 5 mg tablet 1 tab PO BID PRN Moderate Pain 02/01/21 07/15/23 04/04/23 History (Scale Score 5-6) clonazepam 1 mg tablet 1 tab PO DAILY PRN anxiety 01/14/22 07/15/23 04/04/23 History famotidine 20 mg tablet 1 tab PO BID 01/14/22 07/15/23 07/14/23 History rosuvastatin 5 mg tablet 1 tab PO DAILY 01/14/22 07/15/23 07/14/23 History levothyroxine 88 mcg tablet 88 mcg PO DAILY 01/20/23 07/15/23 07/14/23 History albuterol sulfate 90 mcg/actuation 1 puff inhalation Q6H PRN wheezing 06/09/23 07/15/23 Unknown History aerosol inhaler (Ventolin HFA) calcium citrate 200 mg (950 mg) 200 mg PO BID 06/09/23 07/15/23 07/14/23 History tablet sevelamer carbonate 800 mg tablet 800 mg PO BIDWMEAL 06/09/23 07/15/23 07/14/23 History tacrolimus 0.5 mg capsule, 0.5 mg PO BID 07/15/23 07/15/23 07/14/23 History immediate-release Physical Exam 2 Vital Signs: Vital Signs: Last Vital Signs Temp 98 F 11/12/23 12:16 Pulse 53 11/12/23 12:17 Resp 15 11/12/23 12:17 BP 159/94 H 11/12/23 12:17 Pulse Ox 97 11/12/23 12:17 O2 Del Method Room Air 11/12/23 12:17 BMI result Body Mass Index 23.5 Const: General: cooperative and no acute distress Nutritional Appearance: w ell nourished Orientation/consciousness: patient oriented x3 Limitations: no limitations HEENT: Head: Yes normocephalic and Yes atraumatic Head images: 1. Incision at angle mandible a proximally 3 cm long Ears: hearing grossly normal bilaterally Resp: Effort & Inspection: normal respiratory effort, no audible wheezes, no cough and no respiratory distress Cardio: Jugular venous distension: no JVD GI: Inspection: Yes normal to inspection Skin: Other: Warm, dry, no rash Neuro: General: patient oriented x3 Extrem: General: Yes no clubbing, cyanosis or edema Results Labs 11/12/23 12:48 11/12/23 12:48 Labs: All other labs normal. Assessment and Plan (1) Bleeding from wound: Status: Acute Plan 73-year-old female patient status post Mohs surgery to left face presenting with bleeding from the incision. A running suture was placed over the previously placed suture and hemostasis was achieved. Wound was dressed with Surgicel followed by pressure dressing. Patient tolerated the procedure well. She will follow up my office in a proximally week for suture removal. Procedures Date of Service Date of Service: 11/12/23 Laceration Laceration 1: Consent for Procedure: Emergent-no informed consent obtained Site: face Side (if applicable): left Size (cm): 3 Description: linear Depth: simple, single layer Anesthetic used: with epi Anesthesia technique: local infiltration Skin layer closed with: other (Nylon) Size (cm): 5-0 Technique: running Additional comments: After assuring informed consent and confirming the site of surgery, the skin was prepped with Betadine and draped in a sterile fashion. Local anesthesia was then infiltrated using lidocaine 1% with epinephrine. The previous suture was removed. A running suture remained in place. A 5 0 nylon suture was then placed in a running fashion over the previous closure. Good hemostasis was achieved with the suture. Wound was watched for several minutes and no bleeding could be identified. Wound was then covered with a pack of Surgicel followed by 4 x 4 gauze and paper tape. The patient tolerated the procedure well. She will be observed for a short period of time in the emergency department before discharge.
[2023-11-12 13:20] LABS: Anion Gap 14 (12-20); Blood Urea Nitrogen 21 mg/dL (9-16); Calcium 9.8 mg/dL (8.4-10.2); Carbon Dioxide 27 mmol/L (22-29); Chloride 103 mmol/L (96-108); Creatinine Clr Calc Pharmacy 10.5; Estimated Glomerular Filt Rate 9; Glucose Random 90 mg/dL (60-115); Potassium 5.3 mmol/L (3.3-5.1); Sodium 139 mmol/L (135-145)
[2023-11-12 13:30] LABS: Basophils Percent Auto 0.3 % (0-2); Eosinophils Absolute Auto 0.3 X10*3/uL (0.0-0.4); Eosinophils Percent Auto 4.2 % (0-4); Hematocrit 29.4 % (37.0-47.0); Hemoglobin 9.1 g/dl (12.0-16.0); Imm Gran Abs Auto 0.01 X10*3/uL (0.00-0.03); Imm Gran Pct Auto 0.2 % (0.0-0.4); Lymphocytes Absolute Auto 1.2 X10*3/uL (1.2-4.9); Lymphocytes Percent Auto 18.6 % (20-40); Mean Corpuscular Hemoglobin 30.4 pg (27.0-33.0); Mean Corpuscular Volume 98.3 fL (80.0-98.0); Mean Platelet Volume 11.9 fL (9.4-12.3); Monocytes Absolute Auto 0.9 X10*3/uL (0.1-1.2); Monocytes Percent Auto 13.5 % (2-11); Neutrophils Percent Auto 63.2 % (45-73); Platelet Count 180 X10*3/uL (160-400); Red Blood Count 2.99 X10*6/uL (4.20-5.50); Red Cell Distribution Width 14.7 % (11.0-16.0); White Blood Count 6.4 X10*3/uL (4.8-10.8)
--- NOTE | 2023-11-12 16:16 | PC.NURSE ---
Notified by KAILEE Manuel that patient's site has bled through the bandage. Bandage removed, signficiant amount of bloody drainage noted from suture site. Message sent to Dr. Hyde, provider unable to assist any further, Dr. Neal made aware, Patient to be transferred to [facility] to f/u with original surgeon.
--- NOTE | 2023-11-12 16:57 | PC.NURSE ---
Verbal order from Dr. Neal to apply 1000 - 2000 units of topical thrombin and reapply dressing.
[2023-11-12] MEDS: Lidocaine HCl 1%/Epi 1:100,000 10 ML VIAL INFILTRATI (17:35)
--- NOTE | 2023-11-12 17:35 | PC.NURSE ---
Dr. Sanders took over patient case, attempted 2 purse string stitches. No residual bleeding noted. Thrombin on hold to see if suture site continues to bleed or not.
--- NOTE | 2023-11-12 19:01 | MHC.EDTECH ---
This tech took over care of patient at 1900,rounds and vitals completed,patient is resting quietly,waiting for transport back home,call hernandez in reach
--- NOTE | 2023-11-12 19:39 | PC.NURSE ---
Thrombin not needed to be given per Dr. Sanders
== END 2023-11-12 22:46 | disposition home or self-care (01) ==
PROVIDERS: Emergency Medicine; Emergency Provider Internal Medicine; PCP Pediatrics
DX: L76.21 Postprocedural hemorrhage of skin and subcutaneous tissue following a dermatologic procedure (principal); Y83.8 Other surgical procedures as the cause of abnormal reaction of the patient, or of later complication, without mention of misadventure at the time of the procedure; Y92.810 Car as the place of occurrence of the external cause; D69.6 Thrombocytopenia, unspecified; J45.909 Unspecified asthma, uncomplicated; I12.0 Hypertensive chronic kidney disease with stage 5 chronic kidney disease or end stage renal disease; N18.6 End stage renal disease; Z99.2 Dependence on renal dialysis; I48.0 Paroxysmal atrial fibrillation; Z95.2 Presence of prosthetic heart valve; Z87.891 Personal history of nicotine dependence; Z79.82 Long term (current) use of aspirin; Z79.899 Other long term (current) drug therapy; Z79.02 Long term (current) use of antithrombotics/antiplatelets
CPT/HCPCS: 12002; 12042; 36415; 80048; 85025; 85610; 86850; 86870; 86880; 86900; 86901; 86902; 86920; 86922; 99284; 99285

== ENCOUNTER → 2023-11-12 12:44 | Outpatient (BNV) | payer OTHER, SELFPAY | PROVIDERS: Emergency Provider Emergency Medicine; PCP Pediatrics; Visit Provider Surgery | DX: L76.22 Postprocedural hemorrhage of skin and subcutaneous tissue following other procedure (principal) | CPT/HCPCS: 12013; 12042; 99283 ==

== ENCOUNTER 2023-11-14 00:27 | Emergency (ER) | payer OTHER, SELFPAY ==
[2023-11-14 00:34] VITALS: BP 156/78; BP 167/65; PULSE 75; PULSE 80; RESP 18; TEMP 37.7; O2SAT 98; BMI 22.9
--- NOTE | 2023-11-14 00:48 | ED.SKABFB ---
HPI - Skin/Abscess/Foreign Bdy General Chief complaint: Skin/Abscess/Foreign Body Stated complaint: excessive bleeding on face Time Seen by Provider: 11/14/23 00:38 Source: patient Mode of arrival: ambulatory Limitations: no limitations History of Present Illness ED Provider: Luhco SMYTH HPI narrative: 73-year-old female history of NSTEMI, paroxysmal AFib not on anticoagulants, status post TAVR, metabolic encephalopathy, ESRD ( ,Friday), alcohol use disorder, cirrhosis s/p liver transplant , CAD, COPD, status post Mohs (d/t squamous cell carcinoma) procedure on Friday ( [facility], Dr. Tillman) presenting with bleeding from site of Mohs procedure intermittently since the day of the procedure. She has been seen here multiple times for the same thing. Last time she had sutures placed it stop bleeding. However prior to this she was going to be transferred to [facility] where the Mohs procedure had been done. She reports fatigue and malaise. Denies chest pain, shortness breath, nausea, vomiting, abdominal pain, headache, vision changes, dizziness and weakness. No known bleeding dO. Only takes baby asprin no other blood thinners. Related Data Home Medications ?Medication ?Instructions ?Recorded ?Confirmed aspirin 81 mg tablet,delayed 81 mg PO DAILY 01/26/20 07/15/23 release allopurinol 100 mg tablet 100 mg PO DAILY 03/08/20 07/15/23 cholecalciferol (vitamin D3) 50 1 tab PO DAILY 08/14/20 07/15/23 mcg (2,000 unit) tablet hydroxyzine HCl 25 mg tablet 1 tab PO TID PRN Itching 08/14/20 07/15/23 ropinirole 0.5 mg tablet 1 tab PO BEDTIME 08/14/20 07/15/23 venlafaxine 25 mg tablet 1 tab PO DAILY 08/14/20 07/15/23 oxycodone 5 mg tablet 1 tab PO BID PRN Moderate Pain 02/01/21 07/15/23 (Scale Score 5-6) clonazepam 1 mg tablet 1 tab PO DAILY PRN anxiety 01/14/22 07/15/23 famotidine 20 mg tablet 1 tab PO BID 01/14/22 07/15/23 rosuvastatin 5 mg tablet 1 tab PO DAILY 01/14/22 07/15/23 levothyroxine 88 mcg tablet 88 mcg PO DAILY 01/20/23 07/15/23 albuterol sulfate 90 mcg/actuation 1 puff inhalation Q6H PRN wheezing 06/09/23 07/15/23 aerosol inhaler (Ventolin HFA) calcium citrate 200 mg (950 mg) 200 mg PO BID 06/09/23 07/15/23 tablet sevelamer carbonate 800 mg tablet 800 mg PO BIDWMEAL 06/09/23 07/15/23 tacrolimus 0.5 mg capsule, 0.5 mg PO BID 07/15/23 07/15/23 immediate-release Previous Rx's ?Medication ?Instructions ?Recorded metoprolol tartrate 25 mg tablet 25 mg PO BID #0 tabs 02/07/21 Allergies Allergy/AdvReac Type Severity Reaction Status Date / Time Sulfa (Sulfonamide Allergy Intermediate HIVES Verified 11/14/23 00:36 Antibiotics) Heparin Analogues Allergy Unknown UNKNOWN Verified 11/14/23 00:36 [Heparin Agents] verapamil Allergy Unknown unknown Verified 11/14/23 00:36 Review of Systems Review of Systems: Yes all other systems are reviewed and are negative [facility] Past Medical History Attestation statement: The following information was validated with the patient. Source: old records reviewed and nursing notes reviewed Medical History ESRD (end stage renal disease) on dialysis Congestive heart failure Patient on waiting list for kidney transplant Gout History of transcatheter aortic valve replacement (TAVR) History of blood transfusion GERD (gastroesophageal reflux disease) Anxiety and depression AV fistula Hemodialysis patient COVID-19 vaccine series completed Murmur Hyperkalemia Left inguinal hernia DJD (degenerative joint disease) of thoracic spine Neuropathy End-stage renal disease (ESRD) COPD (chronic obstructive pulmonary disease) Coronary artery disease Bronchitis Asthma Arthritis Anemia Cirrhosis Surgical History Hx of colonoscopy History of liver transplant History of surgery on arm Social History Social History Household Members: None Housing: Apartment Are you a primary intensive care anaesthetist to a significant other at home: No Do you presently have visiting nurse or other home services: Yes Unable to assess alcohol history related to: Unable to respond Alcohol intake: former Year quit: 2008 Comment: pt refused bed alarm Patient Tobacco Use Status: Former Tobacco user Tobacco use type: Cigarette Cigarette Packs Per Day: 2 Cigarettes Per Day: 40.0 Years Smoked: 25 e-Cigarette/Vaping Use: Never Used Second Hand Smoke Exposure: No Advance Directives Date on File: 03/08/20 Do you have a plan to hurt others: No Plan service: No Current occupational status: retired Physical Exam Vital Signs: Vital Signs: Last Vital Signs Temp 99.8 F 11/14/23 00:34 Pulse 75 11/14/23 00:34 Resp 18 11/14/23 00:34 BP 167/65 H 11/14/23 00:34 Pulse Ox 98 11/14/23 00:34 O2 Del Method Room Air 11/14/23 00:34 BMI result Body Mass Index 22.9 vss Appearance: Alert.? Oriented X3.? No acute distress.? Head: Normocephalic, atraumatic, no step-offs or deformities Eyes: Pupils equal, round and reactive to light.? ENT: Pharynx normal.?Active oozing from Mohs site she @ left angle of the mandible has a bandage that is saturated with blood and clots. Underneath the bandage there is sutures noted which appeared to have oozing between them. No pulsatile bleeding These replaced by General surgery and emergency medicine provider 2 days ago Neck: Normal inspection.? Neck supple.? CVS: Normal heart rate and rhythm.? Pulses normal.? Respiratory: No respiratory distress.? Breath sounds normal.? Abdomen: Soft and nontender.? Skin: Skin warm and dry.? Normal skin color.? Normal skin turgor.? Extremities: No lower extremity edema.? No calf ttp. 5/5 strength to bilateral upper and lower extremities + AV fistula to LUE Back: No midline tenderness, no C-spine tenderness, full range of motion, no CVA tenderness bilaterally Neuro: Oriented X 3.? No motor deficit.? No sensory deficit. CN 2-12 intact Course Reevaluation(s) Reevaluation #1: Applied Surgicel & tegaderm overlying the sutures. Upon chart review general surgery tried a [id number] suture placement however bleeding was not controlled. Time: 00:59 Reevaluation #2: Dr. 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 Cota accepts transfer will speak to transfer center at this time. Time: 01:16 Medical Decision Making Medical Decision Making MDM Narrative: 73-year-old female presents with bleeding from Mohs procedure site. Physical exam bleeding noted from site. There sutures placed however still oozing with a large amount of blood. History and physical exam concerning for poor wound healing versus acute blood loss anemia versus uncontrolled bleeding. No signs of hemodynamic instability at this time. Bleeding disorder can not be ruled out at this time. Plan labs, will reach out to EMS Differential Diagnosis Differential Diagnoses: The differential diagnosis associated with the presentation includes History and physical exam concerning for poor wound healing versus acute blood loss anemia versus uncontrolled bleeding. No signs of hemodynamic instability at this time. Bleeding disorder can not be ruled out at this time. Admission/Observation Consideration of admission/observation: Escalation of care including admission/observation considered Consult Healthcare Provider Management of the patient was discussed with: Assistant At Surgery Critical Care Time Critical Care Time Critical Care Time: Yes Total Critical Care Time: 35 Attestation: I attest to this time spent taking care of the patient, obtaining history, physical, reviewing labs, imaging, speaking to my attending, specialist or hospitalist. Discharge Plan Discharge Clinical Impression: Status post Mohs surgery, Bleeding from wound Patient Disposition: Xfer [facility] Prescriptions: No Action venlafaxine 25 mg tablet 1 tab PO DAILY ropinirole 0.5 mg tablet 1 tab PO BEDTIME hydroxyzine HCl 25 mg tablet 1 tab PO TID PRN (Reason: Itching) cholecalciferol (vitamin D3) 50 mcg (2,000 unit) tablet 1 tab PO DAILY allopurinol 100 mg tablet 100 mg PO DAILY oxycodone 5 mg tablet 1 tab PO BID PRN (Reason: Moderate Pain (Scale Score 5-6)) metoprolol tartrate 25 mg Tablet 25 mg PO BID Qty: 0 0RF Protocol: Hold for SBP/HR < HOLD for SBP < : 90 HOLD for HR < : 60 clonazepam 1 mg tablet 1 tab PO DAILY PRN (Reason: anxiety ) famotidine 20 mg tablet 1 tab PO BID rosuvastatin 5 mg tablet 1 tab PO DAILY albuterol sulfate [Ventolin HFA] 90 mcg/actuation HFA aerosol inhaler 1 puff INHALATION Q6H PRN (Reason: wheezing) calcium citrate 200 mg (950 mg) tablet 200 mg PO BID sevelamer carbonate 800 mg tablet 800 mg PO BIDWMEAL levothyroxine 88 mcg tablet 88 mcg PO DAILY tacrolimus 0.5 mg capsule 0.5 mg PO BID aspirin 81 mg tablet,delayed release (DR/EC) 81 mg PO DAILY Print Language: Singaporean
[2023-11-14 01:05] LABS: MANUAL DIFF FLAG NO
[2023-11-14 01:06] LABS: Basophils Percent Auto 0.7 % (0-2); Eosinophils Absolute Auto 0.2 X10*3/uL (0.0-0.4); Hematocrit 27.8 % (37.0-47.0); Hemoglobin 8.9 g/dl (12.0-16.0); Imm Gran Abs Auto 0.01 X10*3/uL (0.00-0.03); Imm Gran Pct Auto 0.2 % (0.0-0.4); Lymphocytes Absolute Auto 1.4 X10*3/uL (1.2-4.9); Lymphocytes Percent Auto 22.8 % (20-40); Mean Corpuscular Hemoglobin 31.3 pg (27.0-33.0); Mean Corpuscular Volume 97.9 fL (80.0-98.0); Mean Platelet Volume 11.6 fL (9.4-12.3); Monocytes Absolute Auto 0.9 X10*3/uL (0.1-1.2); Monocytes Percent Auto 14.1 % (2-11); Neutrophils Absolute Auto 3.5 x10*3/uL (2.0-8.3); Neutrophils Percent Auto 58.2 % (45-73); Platelet Count 164 X10*3/uL (160-400); Red Blood Count 2.84 X10*6/uL (4.20-5.50); Red Cell Distribution Width 14.6 % (11.0-16.0)
[2023-11-14 01:11] LABS: Prothrombin Time 12.2 SEC (11.1-13.3)
--- NOTE | 2023-11-14 01:15 | PC.NURSE ---
pt brianmagdy from home reporting skin surgery to the left jaw friday, has had increased bleeding since. reports jaw pain. previous dressing in place saturated in blood. Dr. Valle and Earlene LOCKE at bedside removed dressing and redressed. bleeding controlled at this time. iv established to R. forearm. labs obtained. vss. pt axox4 speaking full clear sentences. placed on heart monitor and changed into hospital gown. 67 bpm nsr on monitor.
[2023-11-14 01:23] LABS: Alanine Aminotransferase 8 U/L (0-31); Albumin Level 2.9 g/dL (3.5-5.0); Alkaline Phosphatase 105 U/L (39-117); Anion Gap 13 (12-20); Aspartate Amino Transferase 24 U/L (5-31); Bilirubin Total 0.5 mg/dL (0.0-1.0); Blood Urea Nitrogen 13 mg/dL (9-16); Calcium 9.4 mg/dL (8.4-10.2); Carbon Dioxide 30 mmol/L (22-29); Chloride 103 mmol/L (96-108); Creatinine Clr Calc Pharmacy 14.5; Estimated Glomerular Filt Rate 13; Glucose Random 88 mg/dL (60-115); Potassium 3.6 mmol/L (3.3-5.1); Sodium 142 mmol/L (135-145)
[2023-11-14 02:00] VITALS: BP 164/67; PULSE 76; RESP 16; TEMP 36.9; O2SAT 98
--- NOTE | 2023-11-14 02:20 | PC.NURSE ---
dressing appears saturated with blood. dressing cleaned and redressed with Dr. james. ems here at this time for transfer to [facility] ED. report given Cam at the transfer center [facility] .
[2023-11-14 02:23] VITALS: BP 164/67; PULSE 76; RESP 16; TEMP 36.9; O2SAT 98
== END 2023-11-14 02:24 | disposition short-term general hospital (02) ==
PROVIDERS: Physician Assistant; Emergency Provider Internal Medicine; PCP Pediatrics
DX: L76.21 Postprocedural hemorrhage of skin and subcutaneous tissue following a dermatologic procedure (principal); Y83.8 Other surgical procedures as the cause of abnormal reaction of the patient, or of later complication, without mention of misadventure at the time of the procedure; R53.83 Other fatigue; R53.81 Other malaise; Z87.891 Personal history of nicotine dependence; Z79.82 Long term (current) use of aspirin; Z79.899 Other long term (current) drug therapy
CPT/HCPCS: 36415; 80053; 85025; 85610; 99285

== ENCOUNTER 2023-11-17 | Outpatient (REF) | payer OTHER, SELFPAY | END 2023-11-17 00:01 | disposition home or self-care (01) | LOC: HO.MS | PROVIDERS: PCP Pediatrics; Visit Provider Ophthalmology | DX: H26.492 Other secondary cataract, left eye (principal); Z53.9 Procedure and treatment not carried out, unspecified reason ==

== ENCOUNTER 2023-12-29 11:44 | Outpatient (REF) | payer OTHER, SELFPAY ==
[2023-12-29 12:48] VITALS: BP 145/86; PULSE 68; RESP 16; TEMP 36.2; O2SAT 100
[2023-12-29 12:50] VITALS: BMI 22.5
== END 2023-12-29 11:45 | disposition home or self-care (01) ==
LOC: HO.MS 11:44
PROVIDERS: PCP Pediatrics; Visit Provider Ophthalmology
PROC: (CPT 66821; principal; 2023-12-29 13:50)
DX: H26.492 Other secondary cataract, left eye (principal)
CPT/HCPCS: 66821

== ENCOUNTER 2024-02-04 03:49 | Inpatient (IN) | payer OTHER, SELFPAY ==
[2024-02-04] VITALS (8 sets, daily range): BP systolic 112–175; BP diastolic 61–76; PULSE 56–61; RESP 14–18; TEMP 36.2–37.1; O2SAT 95–99; BMI 21.3; BMI 22.7
--- NOTE | 2024-02-04 | ECG_ITS ---
Test Reason : WEAKNESS Blood Pressure : / mmHG Vent. Rate : 060 BPM Atrial Rate : 060 BPM P-R Int : 258 ms QRS Dur : 102 ms QT Int : 440 ms P-R-T Axes : 034 -37 045 degrees QTc Int : 440 ms Sinus rhythm with 1st degree A-V block Left axis deviation Minimal voltage criteria for LVH, may be normal variant ( Crimora product ) Septal infarct (cited on or before 02-FEB-2021) Abnormal ECG When compared with ECG of 19-JUL-2023 00:14, Serial changes of Septal infarct Present Referred By: Generic ED Physician Electronically Signed By:JACKIE KING MD
--- NOTE | ~2024-02-04 | XR_ITS ---
EXAMINATION: XR CHEST CLINICAL INFORMATION: Pulmonary edema COMPARISON: X-ray dated July 15, 2023 TECHNIQUE: 2 views of the chest were obtained. FINDINGS: Indistinct margins in the perihilar regions with prominence of the interstitial markings and linear opacities in the lung bases. No pneumothorax. No gross pleural effusion. Cardiomediastinal silhouette margins are indistinct. Calcified plaque Arctic arch. There is a stent in the region of the ascending aorta/aortic valve. There is an electrode leads within the lower thoracic spine likely neurostimulator spinal device. Multiple vascular clips in the gastroesophageal junction region. Multilevel thoracic and upper lumbar spondylosis. Osteopenia versus osteoporosis. XR/XR chest 2V IMPRESSION: Pulmonary edema Electronically signed by: Nico Pruett MD 02/04/2024 09:26 AM [facility]
--- NOTE | ~2024-02-04 | XR_ITS ---
EXAMINATION: XR SHOULDER, LEFT CLINICAL INFORMATION: Pain. Injury. COMPARISON: Left shoulder films dated 09/19/2014. TECHNIQUE: Two views of the left shoulder. FINDINGS: Diffuse osteopenia. No acute fracture or dislocation. Glenohumeral joint is intact with mild degenerative change noted. Acromioclavicular joint is intact with mild degenerative change. Coracoclavicular distance is normal. Included left ribs are intact. Low lung volumes are noted with vascular congestion and perihilar opacities and small left effusion, incompletely assessed, but suspicious for pulmonary edema. XR/XR shoulder LT min 2V IMPRESSION: 1. Osteopenia. No acute fracture or dislocation. 2. Mild degenerative changes in the glenohumeral and acromioclavicular joints. Findings suspicious for pulmonary edema. Clinical correlation requested. Consider chest x-ray evaluation. Electronically signed by: Olena Lr MD 02/04/2024 08:00 AM [facility] [place]
[2024-02-04 05:05] LABS: MANUAL DIFF FLAG NO
[2024-02-04 05:06] LABS: Basophils Percent Auto 0.4 % (0-2); Eosinophils Absolute Auto 0.4 X10*3/uL (0.0-0.4); Eosinophils Percent Auto 5.4 % (0-4); Hematocrit 35.6 % (37.0-47.0); Hemoglobin 11.7 g/dl (12.0-16.0); Imm Gran Abs Auto 0.03 X10*3/uL (0.00-0.03); Imm Gran Pct Auto 0.4 % (0.0-0.4); Lymphocytes Absolute Auto 1.8 X10*3/uL (1.2-4.9); Lymphocytes Percent Auto 22.3 % (20-40); Mean Corpuscular HGB Conc 32.9 g/dl (31.0-35.0); Mean Corpuscular Hemoglobin 30.1 pg (27.0-33.0); Mean Corpuscular Volume 91.5 fL (80.0-98.0); Mean Platelet Volume 10.1 fL (9.4-12.3); Monocytes Absolute Auto 0.9 X10*3/uL (0.1-1.2); Monocytes Percent Auto 11.5 % (2-11); Neutrophils Absolute Auto 4.7 x10*3/uL (2.0-8.3); Platelet Count 195 X10*3/uL (160-400); Red Blood Count 3.89 X10*6/uL (4.20-5.50); Red Cell Distribution Width 13.8 % (11.0-16.0); White Blood Count 7.9 X10*3/uL (4.8-10.8)
[2024-02-04 05:24] LABS: Alanine Aminotransferase 15 U/L (0-31); Albumin Level 3.3 g/dL (3.5-5.0); Alkaline Phosphatase 98 U/L (39-117); Anion Gap 17 (12-20); Aspartate Amino Transferase 28 U/L (5-31); Bilirubin Total 0.4 mg/dL (0.0-1.0); Blood Urea Nitrogen 29 mg/dL (9-16); Carbon Dioxide 22 mmol/L (22-29); Chloride 104 mmol/L (96-108); Creatinine Clr Calc Pharmacy 5.2; Estimated Glomerular Filt Rate 4; Glucose Random 87 mg/dL (60-115); Potassium 4.3 mmol/L (3.3-5.1); Sodium 139 mmol/L (135-145); Total Protein 6.9 g/dL (6.5-8.0)
[2024-02-04 05:28] LABS: Troponin-I High Sensitivity 19.1 ng/L (<3.5-17.0)
[2024-02-04 05:35] LABS: B Type Natriuretic Peptide 2459 pg/mL (<100)
[2024-02-04 06:38] LABS: Influenza A PCR NEGATIVE (Negative); Influenza B PCR NEGATIVE (Negative); Resp Syncy Virus RNA Qual PCR NEGATIVE (Negative); SARS COV2 PCR INHOUSE NEGATIVE (Negative)
--- NOTE | 2024-02-04 06:49 | ED_ITS ---
HPI - General Adult General Chief complaint: General Medical Stated complaint: weakness, nausea Time Seen by Provider: 02/04/24 06:40 Source: patient and EMS Mode of arrival: EMS Limitations: no limitations History of Present Illness ED Provider: Marie Vargas PA-C HPI narrative: 73-year-old female with a PMH of afib, COPD, GERD, thyroid CA on radiation, and ESRD on dialysis presents to the ED today with chief complaints of L shoulder pain, weakness, and a rash on her stomach. She receives dialysis Tuesdays, Wednesdays, and . She missed her dialysis on Friday due to feeling unwell after pre-radiation treatment on Friday and Friday and the last dialysis she received was on 01/29/24. 2 weeks ago she started pre-radiation treatment at [facility] for thyroid CA. On Friday she received a second round of pre-radiaion shots and started to feel very weak and confused afterwards. She was scheduled to receive her first round of radiation today. Patient cannot recall the name of her oncologist. She also reports sudden onset L shoulder pain and cannot recall if she fell on it. Patient also reports receiving an antibiotic shot 2 weeks ago during her pre-radiation treatment that caused her to develop a punctate rash on her abdomen. Denies burning or itching. Endorses weakness and N/V. Denies abd pain, SOB or chest pain. Relieving factors: none Exacerbating factors: none Associated symptoms: rash and weakness Treatments prior to arrival: none Related Data Home Medications ?Medication ?Instructions ?Recorded ?Confirmed aspirin 81 mg tablet,delayed 81 mg PO DAILY 01/26/20 07/15/23 release allopurinol 100 mg tablet 100 mg PO DAILY 03/08/20 07/15/23 cholecalciferol (vitamin D3) 50 1 tab PO DAILY 08/14/20 07/15/23 mcg (2,000 unit) tablet hydroxyzine HCl 25 mg tablet 1 tab PO TID PRN Itching 08/14/20 07/15/23 ropinirole 0.5 mg tablet 1 tab PO BEDTIME 08/14/20 07/15/23 venlafaxine 25 mg tablet 1 tab PO DAILY 08/14/20 07/15/23 oxycodone 5 mg tablet 1 tab PO BID PRN Moderate Pain 02/01/21 07/15/23 (Scale Score 5-6) clonazepam 1 mg tablet 1 tab PO DAILY PRN anxiety 01/14/22 07/15/23 famotidine 20 mg tablet 1 tab PO BID 01/14/22 07/15/23 rosuvastatin 5 mg tablet 1 tab PO DAILY 01/14/22 07/15/23 levothyroxine 88 mcg tablet 88 mcg PO DAILY 01/20/23 07/15/23 albuterol sulfate 90 mcg/actuation 1 puff inhalation Q6H PRN wheezing 06/09/23 07/15/23 aerosol inhaler (Ventolin HFA) calcium citrate 200 mg (950 mg) 200 mg PO BID 06/09/23 07/15/23 tablet sevelamer carbonate 800 mg tablet 800 mg PO BIDWMEAL 06/09/23 07/15/23 tacrolimus 0.5 mg capsule, 0.5 mg PO BID 07/15/23 07/15/23 immediate-release folic acid 1 mg tablet 1 mg PO DAILY 02/04/24 Previous Rx's ?Medication ?Instructions ?Recorded metoprolol tartrate 25 mg tablet 25 mg PO BID #0 tabs 02/07/21 Allergies Allergy/AdvReac Type Severity Reaction Status Date / Time Sulfa (Sulfonamide Allergy Intermediate HIVES Verified 02/04/24 04:07 Antibiotics) Heparin Analogues Allergy Unknown UNKNOWN Verified 02/04/24 04:07 [Heparin Agents] verapamil Allergy Unknown unknown Verified 02/04/24 04:07 Review of Systems 2 Constitutional: Constitutional: Denies chills, Reports fatigue, Denies fever(s), Denies night sweats and Reports weakness Eyes: Eyes: Reports no additional eye complaints, Denies blurry vision, Denies change in vision, Denies diplopia, Denies eye discharge, Denies loss of vision and Denies eye pain ENT: Denies dizziness Cardiovascular: Cardiovascular: Reports no additional cardiovascular complaints, Denies chest pain, Denies lightheadedness, Denies Loss of Consciousness and Denies dyspnea Respiratory: Respiratory: Reports no additional respiratory complaints and Denies dyspnea Gastrointestinal: Gastrointestinal: Reports no additional gastrointestinal complaints, Denies abdominal pain, Denies melena, Denies hematochezia, Denies change in bowel habits, Denies change in stool character, Reports nausea and Reports vomiting Genitourinary: Genitourinary: Denies hematuria, Denies urinary frequency, Denies dysuria, Denies urinary incontinence, Denies urinary hesitancy and Denies urinary urgency Musculoskeletal: Musculoskeletal: Reports arthralgias (L shoulder), Reports limited range of motion (L shoulder), Denies numbness and Denies tingling Integumentary/Breasts: Skin/Breast: Reports rash (abdomen ) Neurologic: Denies dizziness, Denies loss of vision, Denies numbness, Denies tingling and Reports weakness Psychiatric: Psychiatric: Reports no additional psychiatric complaints Endocrine: Endocrine: Reports no additional endocrine complaints and Reports fatigue Hematologic/Lymphatic: Hematologic/Lymphatic: Reports no additional hematologic/lymphatic complaints Allergic/Immunologic: Allergic/Immunologic: Reports no additional allergic/immunologic complaints [facility] Past Medical History Attestation statement: The following information was validated with the patient. Source: old records reviewed and nursing notes reviewed Medical History ESRD (end stage renal disease) on dialysis Congestive heart failure Patient on waiting list for kidney transplant Gout History of transcatheter aortic valve replacement (TAVR) History of blood transfusion GERD (gastroesophageal reflux disease) Anxiety and depression AV fistula Hemodialysis patient COVID-19 vaccine series completed Murmur Hyperkalemia Left inguinal hernia DJD (degenerative joint disease) of thoracic spine Neuropathy End-stage renal disease (ESRD) COPD (chronic obstructive pulmonary disease) Coronary artery disease Bronchitis Asthma Arthritis Anemia Cirrhosis Surgical History Hx of colonoscopy History of liver transplant History of surgery on arm Social History Social History Household Members: None Housing: Apartment Are you a primary resident care provider to a significant other at home: No Do you presently have visiting nurse or other home services: Yes Unable to assess alcohol history related to: Unable to respond Alcohol intake: never Comment: pt refused bed alarm Patient Tobacco Use Status: Former Tobacco user Tobacco use type: Cigarette Cigarette Packs Per Day: 2 Cigarettes Per Day: 40.0 Years Smoked: 25 Smoked in Last 30 Days: No e-Cigarette/Vaping Use: Never Used Second Hand Smoke Exposure: No Use of substances other than those prescribed or required for medical reasons: No Advance Directives: Yes Advance Directives on File: Yes Advance Directives Date on File: 12/09/20 service: No Current occupational status: retired Physical Exam ED Vital Signs: Vital Signs - 24 hr 02/04/24 03:59 02/04/24 04:07 02/04/24 06:16 Temperature 98.7 F 98.7 F 97.3 F Pulse Rate 59 61 60 Respiratory Rate 18 17 18 Blood Pressure 161/66 H 161/66 H 158/75 H Pulse Oximetry 97 97 99 Oxygen Delivery Method Room Air Room Air Room Air 02/04/24 09:53 Temperature Pulse Rate 59 Respiratory Rate 14 Blood Pressure 175/76 H Pulse Oximetry 97 Oxygen Delivery Method Room Air BMI result Body Mass Index 21.3 Const General: cooperative, no acute distress, alert and awake Nutritional Appearance: well nourished Orientation/consciousness: patient oriented x3 Limitations: no limitations HENMT Head: Yes normal to inspection and Yes atraumatic Ears: hearing grossly normal bilaterally and external ears normal General nose exam: Normal external nose present, no nasal discharge noted and no epistaxis Face and sinus: Yes normal facial exam, No abrasion and No laceration Mouth: Normal oral and palatal mucosa present, no drooling and no muffled voice Eyes General: appearance normal, both eyes and all related structures Periorbital: periorbital findings normal Eyelids: Yes eyelids normal Conjunctivae: conjunctivae normal Pupils: Equal, round and reactive pupils present EOM: EOMs intact bilaterally Neck Neck: Yes normal visual inspection, Yes full ROM and Yes no lymphadenopathy Chest Chest palpation & inspection: normal inspection of the chest Resp Effort & Inspection: normal respiratory effort and able to speak in complete sentences Auscultation: crackles bilateral at the base GI Inspection: Yes normal to inspection Neuro General: patient oriented x3 and moves all extremities Cranial nerves: Yes Equal, round and reactive pupils present Cognition (Neuro): normal cognition Extrem General: Yes normal to inspection and Yes capillary refill normal Left upper extremity: shoulder/upper arm Details: tenderness Location: of the A- C joint and abnormal ROM Details: pain with active ROM and pain with passive ROM Psych Appearance: grossly normal Mental Status: mental status grossly normal Affect: normal affect Attitude: cooperative Thought process: Normal thought process present Thought content: Normal thought content present Insight: Good insight present (Psych) Medical Decision Making Medical Decision Making MDM Narrative: Patient is a 73 year old assigned female at with a history of ESRD on dialysis Friday / Friday / , atrial fib, Thyroid cancer, and s/p TAVR presenting to the emergency department today with weakness and left shoulder pain. Patient's physical exam was as noted in the physical exam portion of this note. Patient's blood work showed a CR of 9.7, BUN of 29, and BNP of 2459. Patient's EKG was unremarkable. Patient's chest x-ray showed pulmonary edema. Patient's left shoulder x-ray showed no acute process. I spoke to the cash management specialist chronic condition nurse who recommended admission for dialysis. I spoke to the hospitalist team who agreed to admission. I explained my physical exam findings as well as all test results to the patient. I answered all questions asked by the patient. Patient verbalized agreement and understanding with this treatment plan and admission. Differential Diagnosis Differential Diagnoses: The differential diagnosis associated with the presentation includes Weakness Kidney failure Admission/Observation Consideration of admission/observation: Escalation of care including admission/observation considered Patient admitted. Consult Healthcare Provider Management of the patient was discussed with: Hospitalist (agreed to admission as noted in the MDM Rationale portion of this note) and Boss Miner (spoke to the cash management specialist as noted in the MDM Rationale portion of this note) Lab Data [facility] Lab Attestation statement: I reviewed the patient's lab results. My interpretation of these results are in the MDM Rationale portion of this note. 02/04/24 05:01 02/04/24 05:01 Labs: Lab Results 02/04/24 Range/Units 05:01 WBC 7.9 (4.8-10.8) X10*3/uL RBC 3.89 L D (4.20-5.50) X10*6/uL Hgb 11.7 L D (12.0-16.0) g/dl Hct 35.6 L D (37.0-47.0) % MCV 91.5 (80.0-98.0) fL MCH 30.1 (27.0-33.0) pg MCHC 32.9 (31.0-35.0) g/dl RDW 13.8 (11.0-16.0) % Plt Count 195 (160-400) X10*3/uL MPV 10.1 (9.4-12.3) fL Immature Gran % (Auto) 0.4 (0.0-0.4) % Neut % (Auto) 60.0 (45-73) % Lymph % (Auto) 22.3 (20-40) % [place] % (Auto) 11.5 H (2-11) % Eos % (Auto) 5.4 H (0-4) % Baso % (Auto) 0.4 (0-2) % Lymph # (Auto) 1.8 (1.2-4.9) X10*3/uL [place] # (Auto) 0.9 (0.1-1.2) X10*3/uL Eos # (Auto) 0.4 (0.0-0.4) X10*3/uL Baso # (Auto) 0.0 (0.0-0.2) X10*3/uL Abs Immat Gran (auto) 0.03 (0.00-0.03) X10*3/uL Absolute Neuts (auto) 4.7 (2.0-8.3) x10*3/uL Absolute Nucleated RBC 0.000 (0.0-0.012) X10*3/uL Nucleated RBC % (auto) 0.0 (0.0-0.2) /100WBC Sodium 139 (135-145) mmol/L Potassium 4.3 (3.3-5.1) mmol/L Chloride 104 (96-108) mmol/L Carbon Dioxide 22 (22-29) mmol/L Anion Gap 17 (12-20) BUN 29 H (9-16) mg/dL Creatinine 9.70 H* (0.5-1.4) mg/dL Estim Creat Clear Calc 5.2 Estimated GFR 4 Random Glucose 87 (60-115) mg/dL Calcium 10.0 D (8.4-10.2) mg/dL Total Bilirubin 0.4 (0.0-1.0) mg/dL AST 28 (5-31) U/L ALT 15 (0-31) U/L Alkaline Phosphatase 98 (39-117) U/L Troponin I High Sens 19.1 H (<3.5-17.0) ng/L B-Natriuretic Peptide 2459 H (<100) pg/mL Total Protein 6.9 (6.5-8.0) g/dL Albumin 3.3 L (3.5-5.0) g/dL Influenza Type A (PCR) NEGATIVE (Negative) Influenza Type B (PCR) NEGATIVE (Negative) RSV RNA Qual (PCR) NEGATIVE (Negative) SARS-CoV-2 RNA (RT-PCR) NEGATIVE (Negative) Independent Interpretation I performed an independent interpretation of an: EKG and Plain X-Ray Interpretation: My interpretation is in agreement with the radiologist's impression of these imaging studies. L EXAMINATION: XR SHOULDER, LEFT CLINICAL INFORMATION: Pain. Injury. COMPARISON: Left shoulder films dated 09/19/2014. TECHNIQUE: Two views of the left shoulder. FINDINGS: Diffuse osteopenia. No acute fracture or dislocation. Glenohumeral joint is intact with mild degenerative change noted. Acromioclavicular joint is intact with mild degenerative change. Coracoclavicular distance is normal. Included left ribs are intact. Low lung volumes are noted with vascular congestion and perihilar opacities and small left effusion, incompletely assessed, but suspicious for pulmonary edema. XR/XR shoulder LT min 2V IMPRESSION: 1. Osteopenia. No acute fracture or dislocation. 2. Mild degenerative changes in the glenohumeral and acromioclavicular joints. Findings suspicious for pulmonary edema. Clinical correlation requested. Consider chest x-ray evaluation. Electronically signed by: Olena Lr MD 02/04/2024 08:00 AM [facility] Dictated By: Olena Lr MD Signed By: Electronically signed by Olena Lr MD 02/04/24 0800 EXAMINATION: XR CHEST CLINICAL INFORMATION: Pulmonary edema COMPARISON: X-ray dated July 15, 2023 TECHNIQUE: 2 views of the chest were obtained. FINDINGS: Indistinct margins in the perihilar regions with prominence of the interstitial markings and linear opacities in the lung bases. No pneumothorax. No gross pleural effusion. Cardiomediastinal silhouette margins are indistinct. Calcified plaque Arctic arch. There is a stent in the region of the ascending aorta/aortic valve. There is an electrode leads within the lower thoracic spine likely neurostimulator spinal device. Multiple vascular clips in the gastroesophageal junction region. Multilevel thoracic and upper lumbar spondylosis. Osteopenia versus osteoporosis. XR/XR chest 2V IMPRESSION: Pulmonary edema Electronically signed by: Nico Pruett MD 02/04/2024 09:26 AM [facility] Dictated By: Nico Syed MD Signed By: Electronically signed by Nico Soler MD 02/04/24 0926 Vent. Rate: 060 BPM Atrial Rate: 060 BPM P-R Int: 258 ms QRS Dur: 102 ms QT Int: 440 ms P-R-T Axes: 034 -37 045 degrees QTc Int: 440 ms Sinus rhythm with 1st degree A-V block Left axis deviation Minimal voltage criteria for LVH, may be normal variant ( [place] product ) Septal infarct (cited on or before 02-FEB-2021) Abnormal ECG When compared with ECG of 19-JUL-2023 00:14, Serial changes of Septal infarct Present Referred By: Generic ED Physician Electronically Signed By:JERMAINE KING MD Dictated By: Jermaine King MD Signed By: Electronically signed by Jermaine King MD 02/04/24 0824 Radiology Impression Discussion of test interpretation with radiology: I have reviewed the radiologist's reading. Independent Historian Clinical information obtained from an independent historian. History obtained from or confirmed by: EMS (EMS provided additional history and confirmed the history provided by the patient.) Critical Care Time Critical Care Time Critical Care Time: Yes Total Critical Care Time: 41 Attestation: I spent 41 minutes of Critical Care Time with this patient. This does not include time spent on separately reported billable procedures. Discharge Plan Discharge Clinical Impression: Chronic kidney failure, Weakness Patient Disposition: Admitted As Inpatient Prescriptions: No Action venlafaxine 25 mg tablet 1 tab PO DAILY ropinirole 0.5 mg tablet 1 tab PO BEDTIME hydroxyzine HCl 25 mg tablet 1 tab PO TID PRN (Reason: Itching) cholecalciferol (vitamin D3) 50 mcg (2,000 unit) tablet 1 tab PO DAILY allopurinol 100 mg tablet 100 mg PO DAILY oxycodone 5 mg tablet 1 tab PO BID PRN (Reason: Moderate Pain (Scale Score 5-6)) metoprolol tartrate 25 mg Tablet 25 mg PO BID Qty: 0 0RF Protocol: Hold for SBP/HR < HOLD for SBP < : 90 HOLD for HR < : 60 clonazepam 1 mg tablet 1 tab PO DAILY PRN (Reason: anxiety ) famotidine 20 mg tablet 1 tab PO BID rosuvastatin 5 mg tablet 1 tab PO DAILY albuterol sulfate [Ventolin HFA] 90 mcg/actuation HFA aerosol inhaler 1 puff INHALATION Q6H PRN (Reason: wheezing) calcium citrate 200 mg (950 mg) tablet 200 mg PO BID sevelamer carbonate 800 mg tablet 800 mg PO BIDWMEAL folic acid 1 mg tablet 1 mg PO DAILY levothyroxine 88 mcg tablet 88 mcg PO DAILY tacrolimus 0.5 mg capsule 0.5 mg PO BID aspirin 81 mg tablet,delayed release (DR/EC) 81 mg PO DAILY Print Language: Greenlandic
--- NOTE | 2024-02-04 11:10 | PC.NURSE ---
re: Overdue Heparin- order is to be given in dialysis
--- NOTE | 2024-02-04 11:12 | PM.CNNEP ---
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 she reports she called EMS at about 3a.m. this morning as she was hallucinating (seeing towel in the bathtub move and snakes underneath it), as well as left shoulder pain and lower abdominal pain. Last HD was 01/28, she states she was dealing with pre-radiation treatments for thyroid cancer and so was not able to make her regular HD sessions. She states she is receiving treatment at [facility] but is not certain who her oncologist is. Her electrolytes are wihtin normal limits on arrival CO2 22, BUN 29, Cr 9.7 (last on file 3.52 from 11/13) troponin and BNP elevated she states she is having some shortness of breath as well as chest tightness, along with left shoulder pain reports some lower abdominal discomfort as well for a few days and some constipation denies fevers urination is rare with ESRD, states does void every few days, small amount, no dysuria or difficulty urinating states she has had some blurry vision along with hallucinations, states no unilateral weakness, moving all extremities, no dysphagia denies other concerns/complaints Review of Systems Constitutional: Reports as per HPI [facility] Past Medical History Medical History (Updated 02/04/24 @ 12:12 by Jenna Muro, ROBERT, JOB SERVICE CONSULTANT-BC) ESRD (end stage renal disease) on dialysis Congestive heart failure Patient on waiting list for kidney transplant Gout History of transcatheter aortic valve replacement (TAVR) History of blood transfusion GERD (gastroesophageal reflux disease) Anxiety and depression AV fistula Hemodialysis patient COVID-19 vaccine series completed Murmur Hyperkalemia Left inguinal hernia DJD (degenerative joint disease) of thoracic spine Neuropathy End-stage renal disease (ESRD) COPD (chronic obstructive pulmonary disease) Coronary artery disease Bronchitis Asthma Arthritis Anemia Cirrhosis Surgical History Surgical History Hx of colonoscopy History of liver transplant History of surgery on arm Social History Social History Household Members: None Housing: Apartment Are you a primary managed care manager to a significant other at home: No Do you presently have visiting nurse or other home services: Yes Unable to assess alcohol history related to: Unable to respond Alcohol intake: never Comment: pt refused bed alarm Patient Tobacco Use Status: Former Tobacco user Tobacco use type: Cigarette Cigarette Packs Per Day: 2 Cigarettes Per Day: 40.0 Years Smoked: 25 Smoked in Last 30 Days: No e-Cigarette/Vaping Use: Never Used Second Hand Smoke Exposure: No Use of substances other than those prescribed or required for medical reasons: No Advance Directives: Yes Advance Directives on File: Yes Advance Directives Date on File: 03/08/20 service: No Current occupational status: retired Meds Allergies Allergy/AdvReac Type Severity Reaction Status Date / Time Sulfa (Sulfonamide Allergy Intermediate HIVES Verified 02/04/24 04:07 Antibiotics) Heparin Analogues Allergy Unknown UNKNOWN Verified 02/04/24 04:07 [Heparin Agents] verapamil Allergy Unknown unknown Verified 02/04/24 04:07 Home Medications ?Medication ?Instructions ?Recorded ?Confirmed ?Last Taken ?Type aspirin 81 mg tablet,delayed 81 mg PO DAILY@1200 01/26/20 02/04/24 02/03/24 History release allopurinol 100 mg tablet 100 mg PO DAILY@1200 03/08/20 02/04/24 02/03/24 History cholecalciferol (vitamin D3) 50 1 tab PO DAILY@1200 08/14/20 02/04/24 02/03/24 History mcg (2,000 unit) tablet hydroxyzine HCl 25 mg tablet 1 tab PO TID PRN Itching 08/14/20 02/04/24 04/04/23 History ropinirole 0.5 mg tablet 1 tab PO BEDTIME@2200 08/14/20 02/04/24 02/03/24 History venlafaxine 25 mg tablet 1 tab PO DAILY@1200 08/14/20 02/04/24 02/03/24 History famotidine 20 mg tablet 1 tab PO BID@1200,2200 01/14/22 02/04/24 02/03/24 History rosuvastatin 5 mg tablet 1 tab PO DAILY@1200 01/14/22 02/04/24 02/03/24 History levothyroxine 88 mcg tablet 88 mcg PO DAILY@0600 01/20/23 02/04/24 02/03/24 History albuterol sulfate 90 mcg/actuation 1 puff inhalation Q6H PRN wheezing 06/09/23 02/04/24 Unknown History aerosol inhaler (Ventolin HFA) calcium citrate 200 mg (950 mg) 400 mg PO BID@1200,2200 06/09/23 02/04/24 02/03/24 History tablet tacrolimus 0.5 mg capsule, 0.5 mg PO BID@1200,2200 07/15/23 02/04/24 02/03/24 History immediate-release folic acid 1 mg tablet 1 mg PO DAILY@1200 02/04/24 02/04/24 02/03/24 History metoprolol tartrate 25 mg tablet 25 mg PO BID@1200,2200 02/04/24 02/04/24 02/03/24 History Physical Exam Vital Signs: Last Vital Signs Temp 97.3 F 02/04/24 06:16 Pulse 59 02/04/24 09:53 Resp 14 02/04/24 09:53 BP 175/76 H 02/04/24 09:53 Pulse Ox 97 02/04/24 09:53 O2 Del Method Room Air 02/04/24 09:53 BMI result Body Mass Index 21.3 Const General: no acute distress, alert and awake Orientation/consciousness: oriented to person and oriented to time Resp Effort & Inspection: normal respiratory effort and able to speak in complete sentences Auscultation: crackles Cardio Rate: regular rate Rhythm: regular rhythm Heart sounds: S1 normal heart sound present, S2 normal heart sound present and Murmur heart sound present GI Palpation (GI): Soft to palpation and Tenderness to palpation present (GI) (reports tenderness across lower abdomen to palpation) Skin Lesions: no lesions Rashes: no rashes Neuro Other: moves all extremities spontaneously. General: oriented to person and oriented to time Extrem General: No edema Results Lab Results 02/04/24 05:01 02/04/24 05:01 Lab results: Chemistry 02/04/24 05:01 Sodium 139 Potassium 4.3 Carbon Dioxide 22 BUN 29 H Creatinine 9.70 H* Calcium 10.0 D Hematology 02/04/24 05:01 WBC 7.9 Hgb 11.7 L D Plt Count 195 Assessment and Plan (1) ESRD (end stage renal disease) on dialysis: Status: Chronic (2) Weakness: Status: Acute (3) Immunosuppressed status: Status: Acute (4) AMS (altered mental status): Qualifiers: Altered mental status type: unspecified Qualified Code(s): R41.82 - Altered mental status, unspecified Status: Acute Plan 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
--- NOTE | 2024-02-04 11:35 | P.HPHOSP_ITS ---
History of Present Illness Date of Service: 02/04/24 Attending physician on admission: Erick Venegas Chief Complaint: weakness, SOB, R shoulder pain Patient is a 73-year-old female with a past medical history significant for ESRD on dialysis (Friday, Friday, ) AFib, stage I COPD, GERD, thyroid cancer currently receiving radiation therapy, mild intermittent asthma, status post TAVR, CAD, cirrhosis status post liver transplant, and gout, who presented to ED this morning due to left shoulder pain and weakness. She recalls since starting pre radiation injections she has felt very weak and has not gone to dialysis since 01/29/2024. She usually goes 3 times weekly on Friday and . She is unsure if she has had a fall causing her left shoulder pain. She complains of sharp chest pain and upper abdominal pain worse with inspiration. She has also had a headache, shortness of breath, and orthopnea. She used her nebulizer at home without any improvement. She denies any recent sick contacts or wheezing but has had runny nose and congestion. She is unsure when the last time was that she urinated, questionably . Review of Systems 2 Constitutional: Constitutional: Denies chills, Reports fatigue, Denies fever(s) and Reports headache(s) Eyes: Eyes: Denies blurry vision and Denies change in vision ENT: Reports headache(s), Reports nasal congestion and Reports nasal discharge Cardiovascular: Cardiovascular: Reports chest pain, Reports Epigastric Pain, Denies pedal edema, Denies leg edema, Reports dyspnea and Reports dyspnea on exertion Respiratory: Respiratory: Denies chest congestion, Denies cough, Reports dyspnea, Reports dyspnea on exertion and Denies wheezing Gastrointestinal: Gastrointestinal: Denies diarrhea, Denies nausea and Denies vomiting Genitourinary: Comments: oliguria Musculoskeletal: Musculoskeletal: Denies numbness and Denies tingling Integumentary/Breasts: Skin/Breast: Reports rash (chronic, on abd) Neurologic: Reports confusion, Reports headache(s), Denies numbness and Denies tingling Psychiatric: Psychiatric: Reports confusion Endocrine: Endocrine: Reports fatigue Allergic/Immunologic: Allergic/Immunologic: Denies wheezing [facility] Medical History (Updated 02/04/24 @ 11:48 by Padmaja Ruiz PA-C) ESRD (end stage renal disease) on dialysis Congestive heart failure Patient on waiting list for kidney transplant Gout History of transcatheter aortic valve replacement (TAVR) History of blood transfusion GERD (gastroesophageal reflux disease) Anxiety and depression AV fistula Hemodialysis patient COVID-19 vaccine series completed Murmur Hyperkalemia Left inguinal hernia DJD (degenerative joint disease) of thoracic spine Neuropathy End-stage renal disease (ESRD) COPD (chronic obstructive pulmonary disease) Coronary artery disease Bronchitis Asthma Arthritis Anemia Cirrhosis Functional capacity: uses cane/walker Surgical History Hx of colonoscopy History of liver transplant History of surgery on arm Social History Household Members: None Housing: Apartment Are you a primary acute care nurse practitioner to a significant other at home: No Do you presently have visiting nurse or other home services: Yes Unable to assess alcohol history related to: Unable to respond Alcohol intake: never Comment: pt refused bed alarm Patient Tobacco Use Status: Former Tobacco user Tobacco use type: Cigarette Cigarette Packs Per Day: 2 Cigarettes Per Day: 40.0 Years Smoked: 25 Smoked in Last 30 Days: No e-Cigarette/Vaping Use: Never Used Second Hand Smoke Exposure: No Use of substances other than those prescribed or required for medical reasons: No Advance Directives: Yes Advance Directives on File: Yes Advance Directives Date on File: 03/08/20 service: No Current occupational status: retired Meds Allergies Allergy/AdvReac Type Severity Reaction Status Date / Time Sulfa (Sulfonamide Allergy Intermediate HIVES Verified 02/04/24 04:07 Antibiotics) Heparin Analogues Allergy Unknown UNKNOWN Verified 02/04/24 04:07 [Heparin Agents] verapamil Allergy Unknown unknown Verified 02/04/24 04:07 Home Medications ?Medication ?Instructions ?Recorded ?Confirmed ?Last Taken ?Type aspirin 81 mg tablet,delayed 81 mg PO DAILY 01/26/20 07/15/23 07/14/23 History release allopurinol 100 mg tablet 100 mg PO DAILY 03/08/20 07/15/23 07/14/23 History cholecalciferol (vitamin D3) 50 1 tab PO DAILY 08/14/20 07/15/23 07/14/23 History mcg (2,000 unit) tablet hydroxyzine HCl 25 mg tablet 1 tab PO TID PRN Itching 08/14/20 07/15/23 04/04/23 History ropinirole 0.5 mg tablet 1 tab PO BEDTIME 08/14/20 07/15/23 07/14/23 History venlafaxine 25 mg tablet 1 tab PO DAILY 08/14/20 07/15/23 07/14/23 History oxycodone 5 mg tablet 1 tab PO BID PRN Moderate Pain 02/01/21 07/15/23 04/04/23 History (Scale Score 5-6) clonazepam 1 mg tablet 1 tab PO DAILY PRN anxiety 01/14/22 07/15/23 04/04/23 History famotidine 20 mg tablet 1 tab PO BID 01/14/22 07/15/23 07/14/23 History rosuvastatin 5 mg tablet 1 tab PO DAILY 01/14/22 07/15/23 07/14/23 History levothyroxine 88 mcg tablet 88 mcg PO DAILY 01/20/23 07/15/23 07/14/23 History albuterol sulfate 90 mcg/actuation 1 puff inhalation Q6H PRN wheezing 06/09/23 07/15/23 Unknown History aerosol inhaler (Ventolin HFA) calcium citrate 200 mg (950 mg) 200 mg PO BID 06/09/23 07/15/23 07/14/23 History tablet sevelamer carbonate 800 mg tablet 800 mg PO BIDWMEAL 06/09/23 07/15/23 07/14/23 History tacrolimus 0.5 mg capsule, 0.5 mg PO BID 07/15/23 07/15/23 07/14/23 History immediate-release folic acid 1 mg tablet 1 mg PO DAILY 02/04/24 Unknown History Physical Exam 2 Vital Signs and Narrative: Vital Signs: Last Vital Signs Temp 97.3 F 02/04/24 06:16 Pulse 59 02/04/24 09:53 Resp 14 02/04/24 09:53 BP 175/76 H 02/04/24 09:53 Pulse Ox 97 02/04/24 09:53 O2 Del Method Room Air 02/04/24 09:53 BMI result Body Mass Index 21.3 General: AOx3, no acute distress Resp: bilateral crackles at bases, no respiratory distress CVS: S1, S2, RRR GI: +BS, NT, no distention Skin: Warm, dry. scattered erythematous circular rash on abd with mild erythema, does not appear infected Neuro: Cranial nerves II-XII grossly intact bilaterally. Motor grossly intact bilaterally Extremities: No edema Psych: Appropriate affect Const: General: confusion Orientation/consciousness: confusion Neuro: General: confusion Results Labs 02/04/24 05:01 02/04/24 05:01 Labs: Laboratory Results - last 24 hr 02/04/24 05:01 MCV 91.5 MCH 30.1 MCHC 32.9 RDW 13.8 Plt Count 195 MPV 10.1 Immature Gran % (Auto) 0.4 Neut % (Auto) 60.0 Lymph % (Auto) 22.3 [place] % (Auto) 11.5 H Eos % (Auto) 5.4 H Baso % (Auto) 0.4 Lymph # (Auto) 1.8 [place] # (Auto) 0.9 Eos # (Auto) 0.4 Baso # (Auto) 0.0 Abs Immat Gran (auto) 0.03 Absolute Neuts (auto) 4.7 Absolute Nucleated RBC 0.000 Nucleated RBC % (auto) 0.0 Anion Gap 17 Estim Creat Clear Calc 5.2 Estimated GFR 4 Random Glucose 87 Calcium 10.0 D Total Bilirubin 0.4 AST 28 ALT 15 Alkaline Phosphatase 98 Troponin I High Sens 19.1 H B-Natriuretic Peptide 2459 H Total Protein 6.9 Albumin 3.3 L Influenza Type A (PCR) NEGATIVE Influenza Type B (PCR) NEGATIVE RSV RNA Qual (PCR) NEGATIVE SARS-CoV-2 RNA (RT-PCR) NEGATIVE Imaging Radiologist's Impressions: Impressions Shoulder X-Ray 02/04/24 07:22 IMPRESSION: 1. Osteopenia. No acute fracture or dislocation. 2. Mild degenerative changes in the glenohumeral and acromioclavicular joints. Findings suspicious for pulmonary edema. Clinical correlation requested. Consider chest x-ray evaluation. Electronically signed by: Olena Lr MD 02/04/2024 08:00 AM EST RP Chest X-Ray 02/04/24 08:10 IMPRESSION: Pulmonary edema Electronically signed by: Nico Pruett MD 02/04/2024 09:26 AM EST RP Assessment and Plan (1) Acute congestive heart failure: Status: Acute (2) ESRD (end stage renal disease) on dialysis: Status: Chronic Plan Patient is a 73-year-old female with a past medical history significant for ESRD on dialysis (Friday, Friday, ), AFib, grade I COPD, GERD, thyroid cancer currently receiving radiation therapy, mild intermittent asthma, status post TAVR, CAD, cirrhosis status post liver transplant, HLD, and gout, who presented to ED this morning due to left shoulder pain, dyspnea and weakness. Chest x-ray with pulmonary edema, shoulder x-ray without acute fracture. Labs consistent with end-stage renal disease, patient has not been going for dialysis, creatinine 9.7. BNP 2459. End-stage renal disease on dialysis - patient has not been going due to weakness from thyroid cancer treatment - nephrology consult - dialysis today - monitor BMP Acute CHF exacerbation secondary to skipping dialysis - plan as above - monitor BNP AFib - EKG with first-degree AV block, no current AFib - continue metoprolol Grade I COPD/mild intermittent asthma without exacerbation - continue albuterol as needed GERD - continue famotidine Thyroid cancer - continue levothyroxine CAD - continue ASA 81 Status post liver transplant - LFTs normal - continue tacrolimus HLD - continue rosuvastatin Gout - continue allopurinol Full code VTE prophylaxis: Pneumoboots and Xarelto secondary to heparin allergy Patient with end-stage renal disease complicated by severe weakness secondary to her thyroid cancer treatment thus missing 2 sessions of dialysis causing acute CHF exacerbation requiring admission for dialysis and monitoring for at least 2 midnights stay. Quality Stroke Does the patient have a stroke diagnosis?: No VTE Prior VTE?: No VTE Risk Level:: Medical - moderate - high VTE Device Contraindication: N/A - Device Ordered VTE Drug Contraindication: N/A - Med Ordered
--- NOTE | 2024-02-04 12:08 | PHA.MEDREC ---
Addendum entered by Bertha Mccrary RPh 02/04/24 13:59: Reviewed by [facility] Original Note: Pharmacy Consult ? Medication Reconciliation Pharmacy has completed the medication reconciliation. Confirmed medications with patient, patient very sleepy and fell asleep a few times while taking. Patient had med box list and confirmed medications on list too that. Albuterol Inhaler, Clonazepam, Famotidine, Hydroxyzine, Oxycodone and sevelamer Carbonate were not on the med box and I asked the patient about those. Patient confirmed she has is taking the Albuterol inhaler as needed, she takes the Famotidine 20mg tab 1 BID, Clonazepam she states she does not take anymore and does not remember the last time taking that, she states she finished the Oxycodone regimen in the last month and the Sevelamer Carbonate was discontinued by dialysis 1 month ago.
--- NOTE | 2024-02-04 13:30 | PC.NURSE ---
Pt taken to dialysis by ED transport
[2024-02-04] MEDS: oxyCODONE HCl Immed Release 5 MG TABLET PO (17:46)
[2024-02-04] MEDS: 0.9 % Sodium Chloride Flush 3 ML SYRINGE IVFLUSH (21:44)
[2024-02-05] MEDS: Morphine Sulfate 4 MG/ML CARTRIDGE 2 MG IVPUSH (02:13)
[2024-02-05 03:51] VITALS: BP 126/53; PULSE 60; RESP 19; TEMP 36.4; O2SAT 95
[2024-02-05 06:36] LABS: MANUAL DIFF FLAG NO
[2024-02-05 06:44] LABS: Basophils Percent Auto 0.3 % (0-2); Eosinophils Absolute Auto 0.4 X10*3/uL (0.0-0.4); Eosinophils Percent Auto 4.9 % (0-4); Hematocrit 35.5 % (37.0-47.0); Hemoglobin 11.5 g/dl (12.0-16.0); Imm Gran Abs Auto 0.02 X10*3/uL (0.00-0.03); Imm Gran Pct Auto 0.3 % (0.0-0.4); Lymphocytes Absolute Auto 1.7 X10*3/uL (1.2-4.9); Lymphocytes Percent Auto 21.9 % (20-40); Mean Corpuscular HGB Conc 32.4 g/dl (31.0-35.0); Mean Corpuscular Hemoglobin 29.9 pg (27.0-33.0); Mean Corpuscular Volume 92.2 fL (80.0-98.0); Mean Platelet Volume 10.4 fL (9.4-12.3); Monocytes Absolute Auto 0.8 X10*3/uL (0.1-1.2); Monocytes Percent Auto 10.7 % (2-11); Neutrophils Absolute Auto 4.7 x10*3/uL (2.0-8.3); Neutrophils Percent Auto 61.9 % (45-73); Platelet Count 190 X10*3/uL (160-400); Red Blood Count 3.85 X10*6/uL (4.20-5.50); Red Cell Distribution Width 13.6 % (11.0-16.0); White Blood Count 7.6 X10*3/uL (4.8-10.8)
[2024-02-05 06:57] LABS: Anion Gap 14 (12-20); Blood Urea Nitrogen 15 mg/dL (9-16); Calcium 9.3 mg/dL (8.4-10.2); Carbon Dioxide 30 mmol/L (22-29); Chloride 100 mmol/L (96-108); Creatinine Clr Calc Pharmacy 9.2; Estimated Glomerular Filt Rate 7; Glucose Random 87 mg/dL (60-115); Potassium 4.4 mmol/L (3.3-5.1); Sodium 140 mmol/L (135-145)
[2024-02-05 07:00] LABS: B Type Natriuretic Peptide 1562 pg/mL (<100)
[2024-02-05 07:18] VITALS: BP 118/58; PULSE 53; RESP 18; TEMP 36.3; O2SAT 97
--- NOTE | 2024-02-05 09:11 | PM.PNNEP ---
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 she called EMS at about 3a.m. 02/03 as she was hallucinating (seeing towel in the bathtub move and snakes underneath it), as well as left shoulder pain and lower abdominal pain. Last HD prior to admission was 01/28 (missed due to pre-radiation treatment appts with [facility] for thyroid cancer. Her electrolytes are within normal limits on arrival CO2 22, BUN 29, Cr 9.7 (last on file 3.52 from 11/13) troponin and BNP elevated chest xray suggestive of pulmonary edema today reports some continued chest tightness though improvement since yesterday reports some ongoing shortness of breath but feels this has also improved since HD reports some continued abdominal pain in her left lower abdomen since admission, some constipation denies hallucinations/confusion today urination is rare with ESRD, states does void every few days, small amount, no dysuria or difficulty urinating denies other concerns/complaints Physical Exam Vital Signs: Vital Signs: Last Vital Signs Temp 97.3 F 02/05/24 07:18 Pulse 53 02/05/24 07:18 Resp 18 02/05/24 07:18 BP 118/58 L 02/05/24 07:18 Pulse Ox 97 02/05/24 07:18 O2 Del Method Room Air 02/05/24 07:18 BMI result Body Mass Index 22.7 Const: General: no acute distress, alert and awake Resp: Effort & Inspection: normal respiratory effort and able to speak in complete sentences Auscultation: crackles Cardio: Rate: regular rate Rhythm: regular rhythm Heart sounds: S1 normal heart sound present, S2 normal heart sound present and Murmur heart sound present GI: Palpation (GI): Soft to palpation and Tenderness to palpation present (GI) (reports tenderness to palpation of LLQ) : General: Yes no CVA tenderness Back/Spine/Pelvis: Back: no CVA tenderness Skin: Lesions: no lesions Rashes: no rashes Neuro: Other: moves all extremities spontaneously. Extrem: General: No edema Objective Data Labs 02/05/24 06:17 02/05/24 06:17 Labs: Laboratory Results - last 24 hr 02/05/24 06:17 WBC 7.6 RBC 3.85 L Hgb 11.5 L Hct 35.5 L MCV 92.2 MCH 29.9 MCHC 32.4 RDW 13.6 Plt Count 190 MPV 10.4 Immature Gran % (Auto) 0.3 Neut % (Auto) 61.9 Lymph % (Auto) 21.9 [place] % (Auto) 10.7 Eos % (Auto) 4.9 H Baso % (Auto) 0.3 Lymph # (Auto) 1.7 [place] # (Auto) 0.8 Eos # (Auto) 0.4 Baso # (Auto) 0.0 Abs Immat Gran (auto) 0.02 Absolute Neuts (auto) 4.7 Absolute Nucleated RBC 0.000 Nucleated RBC % (auto) 0.0 Sodium 140 Potassium 4.4 Chloride 100 Carbon Dioxide 30 H Anion Gap 14 BUN 15 Creatinine 5.58 H* Estim Creat Clear Calc 9.2 Estimated GFR 7 Random Glucose 87 Calcium 9.3 D B-Natriuretic Peptide 1562 H Procedures Date of Service Date of Service: 02/05/24 Assessment & Plan Assessment and plan (1) ESRD (end stage renal disease) on dialysis: Status: Chronic (2) Immunosuppressed status: Status: Acute Plan 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 ~15 years ago) on HD here with weakness, hallucinations, left shoulder pain, concern for infection given immunosuppressed status recommend workup for infection remains clinically fluid overloaded Will get HD today to resume , , Fri schedule H&H 11.5 and 35.5, no indication for procrit at this time electrolytes including potassium and calcium within normal limits not acidotic at this time- bicarb of 34 today due to CO2 of 30 has left upper extremity AV fistula with +bruit, +thrill oliguric at baseline (small amount every few days per pt) Time Spent With Patient Time: Total time managing care of this patient today ____ minutes. Progress Note: Quality Stroke Does the patient have a stroke diagnosis?: No
--- NOTE | 2024-02-05 09:49 | MHC.CM.PN ---
Addendum entered by Jenna Srinivasan RN 02/05/24 10:18: PT'S [employer] BY [employer]UN[employer] WEEKLY BY [employer]. Original Note: IMM 02/05/24, EMR REVIEWED, PT ADMITTED W/ESRD/SON/ACUTE CHF, CM MET W/PT WHO REPORTS SHE LIVES ALONE, USES A WALKER, HAS 2 WALKERS AT HOME, CANE, GRAB BARS, RAILING, TUB CUTOUT FOR DME AND [facility] RESEARCH RN 7.5HRS/WK AND OUTPT HD [facility] IN [place] T//FRI, PT'S GOAL FOR DC IS HOME W/RESMUP OF SERVICES. PCP VERIFIED [facility] PHIPPS AND HCP ON FILE VERIFIED.
--- NOTE | 2024-02-05 10:26 | P.PNIM_ITS ---
Subjective Subjective Date of Service: 02/05/24 Interval History: feeling better Physical Exam 2 Vital Signs: Vital Signs: Last Vital Signs Temp 97.3 F 02/05/24 07:18 Pulse 53 02/05/24 07:18 Resp 18 02/05/24 07:18 BP 118/58 L 02/05/24 07:18 Pulse Ox 97 02/05/24 07:18 O2 Del Method Room Air 02/05/24 07:18 BMI result Body Mass Index 22.7 General: AO X 3, no acute distress Resp: CTA bilateral, no accessory muscles used CVS: S1,S2,RRR GI: soft, non tender, non distended Neuro: motor grossly intact, alert Psych: appropriate affect, appropriate insight Objective Data Active Medications Acetaminophen (Acetaminophen 325 Mg Tablet) 650 mg PO Q6H PRN PRN Reason: Pain, Mild (Pain Scale 1-3), fever or headache Albuterol Sulfate (Albuterol Sulfate 90 Mcg 8 Gm Inhaler) 1 puff INHALE Q6H PRN PRN Reason: wheezing Allopurinol (Allopurinol 100 Mg Tablet) 100 mg PO DAILY@1200 [facility] Aspirin (Aspirin Enteric Coated 81 Mg Tablet.Dr) 81 mg PO DAILY@1200 [facility] Atorvastatin Calcium (Atorvastatin Calcium 20 Mg Tablet) 20 mg PO BEDTIME [facility] Calcium Carbonate (Calcium Carbonate 750 Mg Tab.Chew) 750 mg PO Q4H PRN PRN Reason: Heartburn Famotidine (Famotidine 20 Mg Tablet) 20 mg PO BID@1200,2200 [facility] Folic Acid (Folic Acid 1 Mg Tablet) 1 mg PO DAILY@1200 [facility] Hydroxyzine HCl (Hydroxyzine Hcl 25 Mg Tablet) 25 mg PO TID PRN PRN Reason: Itching Levothyroxine Sodium (Levothyroxine Sodium 88 Mcg Tablet) 88 mcg PO DAILY@0600 [facility] Magnesium Hydroxide (Milk Of Magnesia 30 Ml Oral.Susp) 30 ml PO DAILY PRN PRN Reason: Constipation Melatonin (Melatonin 3 Mg Tablet) 6 mg PO BEDTIME PRN PRN Reason: Insomnia Metoprolol Tartrate (Metoprolol Tartrate 25 Mg Tablet) 25 mg PO BID@1200,2200 [facility]; Protocol Morphine Sulfate (Morphine Sulfate 4 Mg/Ml Cartridge) 2 mg IVPUSH Q6H PRN; Protocol PRN Reason: Pain, Severe (Pain Scale 7-10) Last Admin: 02/05/24 02:13 Dose: 2 mg Documented By: MIKKI Ondansetron HCl (Ondansetron Hcl 4 Mg/2 Ml Vial) 4 mg IVPUSH Q8H PRN PRN Reason: Nausea and Vomiting Oxycodone HCl (Oxycodone Hcl Immed Release 5 Mg Tablet) 5 mg PO Q6H PRN PRN Reason: Pain, Moderate(Pain Scale 4-6) Last Admin: 02/04/24 17:46 Dose: 5 mg Documented By: LEONARDO Ropinirole HCl (Ropinirole Hcl 0.5 Mg Tablet) 0.5 mg PO BEDTIME@2200 [facility] Sodium Chloride (0.9 % Sodium Chloride Flush 3 Ml Syringe) 3 ml IVFLUSH QSHIFT [facility] Last Admin: 02/04/24 21:44 Dose: 3 ml Documented By: MIKKI Tacrolimus (Tacrolimus 0.5 Mg Capsule) 0.5 mg PO BID@1200,2200 [facility] Venlafaxine HCl (Venlafaxine Hcl 25 Mg Tablet) 25 mg PO DAILY@1200 [facility] Vitamin D (Cholecalciferol (Vitamin D3) 25 Mcg Tablet) 50 mcg PO DAILY@1200 [facility] Labs 02/05/24 06:17 02/05/24 06:17 Labs: Laboratory Results - last 24 hr 02/05/24 06:17 MCV 92.2 MCH 29.9 MCHC 32.4 RDW 13.6 Plt Count 190 MPV 10.4 Immature Gran % (Auto) 0.3 Neut % (Auto) 61.9 Lymph % (Auto) 21.9 [place] % (Auto) 10.7 Eos % (Auto) 4.9 H Baso % (Auto) 0.3 Lymph # (Auto) 1.7 [place] # (Auto) 0.8 Eos # (Auto) 0.4 Baso # (Auto) 0.0 Abs Immat Gran (auto) 0.02 Absolute Neuts (auto) 4.7 Absolute Nucleated RBC 0.000 Nucleated RBC % (auto) 0.0 Anion Gap 14 Estim Creat Clear Calc 9.2 Estimated GFR 7 Random Glucose 87 Calcium 9.3 D B-Natriuretic Peptide 1562 H Assessment and Plan (1) Paroxysmal atrial fibrillation: Status: Acute Plan 73F PMH end-stage renal disease, paroxysmal AFib, COPD, GERD, thyroid cancer, mild intermittent asthma, tavr, CAD, cirrhosis status post liver transplant, hyperlipidemia, gout presented with shortness breath and weakness and confusion Acute metabolic encephalopathy due to uremic encephalopathy as well as acute on chronic diastolic CHF due to missed hemodialysis Much improved after hemodialysis, continue dialysis today, nephro following Paroxysmal atrial fibrillation Continue metoprolol, not on anticoagulation Coronary artery disease Continue aspirin, statin History of liver transplant Continue tacrolimus DVT prophylaxis-mechanical due to heparin allergy Full code reason for continued hospitalization: Ongoing dialysis for uremic encephalopathy Quality Stroke Does the patient have a stroke diagnosis?: No VTE Prior VTE?: No VTE Risk Level:: Medical - moderate - high VTE Device Contraindication: N/A - Device Ordered VTE Drug Contraindication: N/A - Med Ordered
[2024-02-05 14:17] VITALS: BP 144/67; PULSE 57; RESP 20; TEMP 36.2; O2SAT 99
[2024-02-05] MEDS: Aspirin Enteric Coated 81 MG TABLET.DR PO (14:48)
[2024-02-05] MEDS: Metoprolol Tartrate 25 MG TABLET PO (14:49)
[2024-02-05] MEDS: Folic Acid 1 MG TABLET PO (14:49)
[2024-02-05] MEDS: Venlafaxine HCL 25 MG TABLET PO (14:49)
[2024-02-05] MEDS: Famotidine 20 MG TABLET PO (14:49)
[2024-02-05] MEDS: allopurinoL 100 MG TABLET PO (14:49)
[2024-02-05] MEDS: Cholecalciferol (Vitamin D3) 25 MCG TABLET 50 MCG PO (14:49)
[2024-02-05] MEDS: Tacrolimus 0.5 MG CAPSULE PO (14:50)
--- NOTE | 2024-02-05 15:48 | PM.DS ---
DS: Providers Provider Date of Service: 02/05/24 Date of admission: 02/04/24 11:28 Date of discharge: 02/05/24 Primary care physician: Vanessa Hu MD Consults: 02/04/24 11:28 Consult to Nephrology Routine Consulting Provider: [facility] Reason for consultation: ESRD, missed last 2 dialysis Has provider been notified: Yes DS: Diagnosis Discharge Diagnosis (1) Paroxysmal atrial fibrillation: Status: Acute DS: Summary Hospital Course Hospital Course: from initial hpi: 73-year-old female with a past medical history significant for ESRD on dialysis (Friday, Friday, ) AFib, stage I COPD, GERD, thyroid cancer currently receiving radiation therapy, mild intermittent asthma, status post TAVR, CAD, cirrhosis status post liver transplant, and gout, who presented to ED this morning due to left shoulder pain and weakness. She recalls since starting pre radiation injections she has felt very weak and has not gone to dialysis since 01/29/2024. She usually goes 3 times weekly on Friday and . She is unsure if she has had a fall causing her left shoulder pain. She complains of sharp chest pain and upper abdominal pain worse with inspiration. She has also had a headache, shortness of breath, and orthopnea. She used her nebulizer at home without any improvement. She denies any recent sick contacts or wheezing but has had runny nose and congestion. She is unsure when the last time was that she urinated, questionably . hospital course: Patient was admitted for acute metabolic encephalopathy due to uremic encephalopathy as well as acute on chronic diastolic CHF due to missed hemodialysis. She underwent 2 sessions of hemodialysis with much improvement. Shortness of breath is resolved and weakness is much improved, altered mental status is back to baseline. For paroxysmal atrial fibrillation was continued on metoprolol, patient is not on anticoagulation at home. For coronary artery disease was continued on aspirin statin. For history of liver transplant is continued on tacrolimus. Patient is doing better will be discharged home. Time Attestation Discharge Coordination Time (in mins): 34 Quality: Safe Use of Opioids Does Pt have an Active Cancer Diagnosis on the Problem List?: No Quality: Stroke Does the patient have a stroke diagnosis?: No Physical Exam Vital Signs: Vital Signs: Last Vital Signs Temp 97.2 F 02/05/24 14:17 Pulse 57 02/05/24 14:17 Resp 20 02/05/24 14:17 BP 144/67 H 02/05/24 14:17 Pulse Ox 99 02/05/24 14:17 O2 Del Method Room Air 02/05/24 14:17 BMI result Body Mass Index 22.7 General: AO X 3, no acute distress Resp: CTA bilateral, no accessory muscles used CVS: S1,S2,RRR GI: soft, non tender, non distended Neuro: motor grossly intact, alert Psych: appropriate affect, appropriate insight DS: Data Data Completed and Pending Completed studies during hospitalization [Text1]: Procedures Performance of Urinary Filtration, Intermittent, Less than 6 Hours Per Day (07/15/23) Supplement Left Inguinal Region with Synthetic Substitute, Open Approach (08/14/20) Labs on day of discharge: Laboratory Results - last 24 hr 02/05/24 06:17 WBC 7.6 RBC 3.85 L Hgb 11.5 L Hct 35.5 L MCV 92.2 MCH 29.9 MCHC 32.4 RDW 13.6 Plt Count 190 MPV 10.4 Immature Gran % (Auto) 0.3 Neut % (Auto) 61.9 Lymph % (Auto) 21.9 [place] % (Auto) 10.7 Eos % (Auto) 4.9 H Baso % (Auto) 0.3 Lymph # (Auto) 1.7 [place] # (Auto) 0.8 Eos # (Auto) 0.4 Baso # (Auto) 0.0 Abs Immat Gran (auto) 0.02 Absolute Neuts (auto) 4.7 Absolute Nucleated RBC 0.000 Nucleated RBC % (auto) 0.0 Sodium 140 Potassium 4.4 Chloride 100 Carbon Dioxide 30 H Anion Gap 14 BUN 15 Creatinine 5.58 H* Estim Creat Clear Calc 9.2 Estimated GFR 7 Random Glucose 87 Calcium 9.3 D B-Natriuretic Peptide 1562 H Discharge Plan Discharge Anticipated Discharge Date/Time: 02/05/24 15:45 Patient Disposition: Home, Self-Care Discharge Diagnosis: esrd, chf Referrals: Vanessa Hu MD [Primary Care Provider] - 1 Week Discharge Medications: Continued venlafaxine 25 mg tablet 1 tab PO DAILY@1200 ropinirole 0.5 mg tablet 1 tab PO BEDTIME@2200 hydroxyzine HCl 25 mg tablet 1 tab PO TID PRN (Reason: Itching) cholecalciferol (vitamin D3) 50 mcg (2,000 unit) tablet 1 tab PO DAILY@1200 allopurinol 100 mg tablet 100 mg PO DAILY@1200 famotidine 20 mg tablet 1 tab PO BID@1200,2200 rosuvastatin 5 mg tablet 1 tab PO BEDTIME albuterol sulfate [Ventolin HFA] 90 mcg/actuation HFA aerosol inhaler 1 puff INHALATION Q6H PRN (Reason: wheezing) calcium citrate 200 mg (950 mg) tablet 400 mg PO BID@1200,2200 folic acid 1 mg tablet 1 mg PO DAILY@1200 metoprolol tartrate 25 mg tablet 25 mg PO BID@1200,2200 Protocol: Hold for SBP/HR < HOLD for SBP < : 90 HOLD for HR < : 60 levothyroxine 88 mcg tablet 88 mcg PO DAILY@0600 tacrolimus 0.5 mg capsule 0.5 mg PO BID@1200,2200 aspirin 81 mg tablet,delayed release (DR/EC) 81 mg PO DAILY@1200 Diet: Advance to usual diet Activity on Discharge: As tolerated Stand Alone Forms: Patient Portal Discharge page Print Language: Icelandic Care Plan Goals: recovery Health Concerns: esrd Plan of Treatment: follow up with HD Assessment: see above
== END 2024-02-05 17:20 | disposition home or self-care (01) | DRG 291 ==
LOC: HO.ED 07:48 → HO.EDOVER 11:38 → HO.IMC 16:19
PROVIDERS: Admitting Provider Physician Assistant; Emergency Provider Emergency Medicine; PCP Pediatrics; Visit Provider Internal Medicine
DX: I50.33 Acute on chronic diastolic (congestive) heart failure (principal); G93.41 Metabolic encephalopathy; N18.6 End stage renal disease; Z94.0 Kidney transplant status; D84.821 Immunodeficiency due to drugs; C73 Malignant neoplasm of thyroid gland; J44.9 Chronic obstructive pulmonary disease, unspecified; I25.10 Atherosclerotic heart disease of native coronary artery without angina pectoris; M10.9 Gout, unspecified; I48.0 Paroxysmal atrial fibrillation; E78.5 Hyperlipidemia, unspecified; J45.20 Mild intermittent asthma, uncomplicated; Z20.822 Contact with and (suspected) exposure to COVID-19; Z99.2 Dependence on renal dialysis; Z95.2 Presence of prosthetic heart valve; Z91.158 Patient's noncompliance with renal dialysis for other reason; Z87.891 Personal history of nicotine dependence; Z79.82 Long term (current) use of aspirin; Z79.621 Long term (current) use of calcineurin inhibitor; Z79.890 Hormone replacement therapy; Z79.899 Other long term (current) drug therapy
CPT/HCPCS: 0241U; 36415; 71046; 73030; 80048; 80053; 83880; 84484; 85025; 90999; 93005; 99222; 99285; J2270

== ENCOUNTER → 2024-02-04 04:36 | Outpatient (BNV) | payer OTHER, SELFPAY | PROVIDERS: Emergency Provider Emergency Medicine; Visit Provider Internal Medicine Cardiovascular Disease | DX: R94.31 Abnormal electrocardiogram [ECG] [EKG] (principal) | CPT/HCPCS: 93010 ==

== ENCOUNTER → 2024-02-04 08:10 | Outpatient (BNV) | payer OTHER, SELFPAY | PROVIDERS: Emergency Provider Emergency Medicine; Visit Provider Radiology Diagnostic Radiology | DX: J81.1 Chronic pulmonary edema (principal) | CPT/HCPCS: 71046 ==

== ENCOUNTER → 2024-02-04 11:28 | Outpatient (BNV) | payer OTHER, SELFPAY | PROVIDERS: Admitting Provider Physician Assistant; Emergency Provider Emergency Medicine; Visit Provider Nurse Practitioner Family | DX: N18.6 End stage renal disease (principal); Z99.2 Dependence on renal dialysis; D84.9 Immunodeficiency, unspecified | CPT/HCPCS: 90935 ==

== ENCOUNTER → 2024-02-04 11:28 | Outpatient (BNV) | payer OTHER, SELFPAY | PROVIDERS: Admitting Provider Physician Assistant; Emergency Provider Emergency Medicine; Visit Provider Physician Assistant | DX: I48.0 Paroxysmal atrial fibrillation (principal) | CPT/HCPCS: 99223; 99239; 99499 ==

== ENCOUNTER 2024-02-10 16:12 | Inpatient (IN) | payer OTHER, SELFPAY ==
--- NOTE | ~2024-02-10 | CT_ITS ---
EXAMINATION: CT HEAD WITHOUT CONTRAST CLINICAL INFORMATION: Altered mental status COMPARISON: None available. TECHNIQUE: Contiguous axial imaging was performed from the skull base to vertex without intravenous administration of contrast. This CT examination was performed using dose optimization techniques as appropriate, variously including the following: *Automated exposure control *Adjustment of mA and/or kV according to patient size (this includes techniques or standardized protocols for targeted exams where dose is matched to indication/reason for exam; i.e. extremities or head) *Use of iterative reconstruction technique DLP: 798 mGy-cm FINDINGS: There is prominence to the sulci and ventricles with deep white matter gliosis compatible with involutional change however, no evidence of intra or extra-axial fluid collection or hemorrhage, mass, or mass effect. Calvarium is intact. CT/CT head/brain wo IV con IMPRESSION: Chronic changes noted but no evidence for acute intracranial pathology. Electronically signed by: Von Mendez MD 02/10/2024 06:03 PM [facility]
--- NOTE | ~2024-02-10 | XR_ITS ---
EXAMINATION: XR CHEST CLINICAL INFORMATION: Weakness COMPARISON: Prior chest 02/04/2024 TECHNIQUE: Frontal view of the chest was obtained. FINDINGS: Lungs and pleural spaces: Minimal opacities at the bases unchanged. Lungs otherwise clear. TAVR stent noted unchanged. Electronic device noted overlying the dorsal spine unchanged. Cardiomediastinal silhouette normal unchanged. Surgical clips overlie the upper abdomen. Bone and soft tissues unremarkable. XR/XR chest 1V IMPRESSION: Minimal bibasilar opacities unchanged. Nonspecific. Could reflect atelectasis or persistent infiltrate/consolidation. Electronically signed by: Quang Ng MD 02/10/2024 06:03 PM [facility]
--- NOTE | ~2024-02-10 | CT_ITS ---
EXAMINATION: CT ABDOMEN AND PELVIS WITHOUT CONTRAST CLINICAL INFORMATION: Abdominal pain. COMPARISON: CT abdomen and pelvis 06/12/2023. CT abdomen and pelvis 12/29/2019. TECHNIQUE: Multidetector volumetric imaging was performed from the superior aspect of the liver through the pubic symphysis. Sagittal and coronal reformatted images were obtained on the technologist's workstation. This CT examination was performed using dose optimization techniques as appropriate, variously including the following: *Automated exposure control *Adjustment of mA and/or kV according to patient size (this includes techniques or standardized protocols for targeted exams where dose is matched to indication/reason for exam; i.e. extremities or head) *Use of iterative reconstruction technique DLP: 514 mGy-cm FINDINGS: LUNG BASES: Partial visualization is made of a TAVR stent. LIVER, GALLBLADDER, AND BILIARY TREE: Again noted are multiple surgical clips along the posterior margin of the liver. Gallbladder is not visualized likely status post cholecystectomy. No intrahepatic biliary duct dilatation. PANCREAS: Unremarkable. SPLEEN: Unremarkable. ADRENAL GLANDS: Unremarkable. KIDNEYS AND URETERS: Marked diffuse atrophy of the [place] kidneys noted. BLADDER: Decompressed GASTROINTESTINAL TRACT: Mild colonic diverticulosis. Normal appearance of the appendix. Findings suggestive of mild concentric mural thickening of the distal sigmoid colon are noted. Findings are diminished in prominence compared with 06/12/2023. No inflammatory changes of the sigmoid mesentery identified. Normal appearance of the small bowel mesentery. No free intraperitoneal fluid or gas collections identified. ABDOMINAL WALL: Chronic appearing subcutaneous scarring within the right upper abdominal quadrant unchanged compared with 06/12/2023 LYMPH NODES: Multiple enlarged periaortic and left iliac lymph nodes with discrete lymph nodes demonstrating short axis diameters of up to 1.7 cm. These enlarged lymph nodes are slightly decreased in size compared with 06/12/2023. Similar-appearing enlarged lymph nodes were present on the examination of 12/29/2019. VASCULAR: Diffuse calcific atherosclerosis. Normal abdominal aortic caliber. PELVIC VISCERA: Uterus is atrophic. No adnexal lesions noted. OSSEOUS STRUCTURES: A densely sclerotic focus is present in the left sacral alar. This finding is without definitive aggressive features and this finding is unchanged compared with 12/29/2019.. Vertebral plasty cement is noted in the L5 vertebral body which exhibits irregular deformity of the superior endplate of 25% loss of craniocaudal height unchanged compared with 06/12/2023. Partial visualization is made of lower thoracic central canal electrostimulation leads. CT/CT abdomen pelvis wo IV con IMPRESSION: *Borderline mild concentric mural thickening of the distal sigmoid colon. Findings may represent mild diverticulitis. Moderate diverticulosis is present elsewhere within the sigmoid colon. More prominent sigmoid colon mural thickening was present on the comparison study of 06/12/2023. No free intraperitoneal fluid or gas collections. No focal inflammatory changes of the sigmoid mesentery. Mural thickening of the sigmoid colon could also represent neoplasm. However, a discrete tumor of the sigmoid colon is not identified. Consider further evaluation with sigmoidoscopy as clinically indicated. *Chronic retroperitoneal lymphadenopathy. Multiple enlarged periaortic and left common iliac lymph nodes are present. Similar findings have been present on multiple comparison studies dating back to at least 12/29/2019. *Status post cholecystectomy. *Marked bilateral renal atrophy. Electronically signed by: Markos Bazan MD 02/11/2024 12:32 AM [facility]
--- NOTE | ~2024-02-10 | CT_ITS ---
EXAMINATION: CT CHEST WITHOUT CONTRAST CLINICAL INFORMATION: Equivocal chest x-ray COMPARISON: Multiple prior chest x-rays most recent 02/10/2024. CT chest 11/04/2023 TECHNIQUE: Multidetector volumetric CT imaging of the chest was done. Axial MIP volume rendering provided. Sagittal and coronal reformatted images were obtained. This CT examination was performed using dose optimization techniques as appropriate, variously including the following: *Automated exposure control *Adjustment of mA and/or kV according to patient size (this includes techniques or standardized protocols for targeted exams where dose is matched to indication/reason for exam; i.e. extremities or head) *Use of iterative reconstruction technique DLP: 328 mGy-cm FINDINGS: LUNGS AND PLEURAL SPACES: There is linear opacity in the lower lungs bilaterally compatible with persistent discoid atelectasis and/or scarring essentially unchanged. Lungs otherwise clear. No pneumothorax. No pleural effusions. MEDIASTINUM: Heart size within normal limits no pericardial effusion. Mild coronary artery calcification and calcification of the aorta Esophagus normal. No significant lymphadenopathy. CORONARY ARTERY CALCIFICATION: Mild coronary artery calcification AXILLA: No lymphadenopathy. UPPER ABDOMEN: Atrophic kidneys bilaterally unchanged. Upper abdominal surgical clips OSSEOUS STRUCTURES: Electronic device noted within the spinal canal Multilevel spondylosis of the dorsal spine. Chronic compression fracture superior endplate of L1 CT/CT chest wo IV con IMPRESSION: Bilateral lower lung opacities compatible with chronic scarring and/or discoid atelectasis. Chronic findings as above Fleischner guidelines were followed. Electronically signed by: Quang Ng MD 02/10/2024 10:06 PM [facility]
[2024-02-10 16:23] VITALS: BP 140/70; PULSE 70; O2SAT 95
[2024-02-10 16:30] VITALS: BP 131/59; PULSE 65; RESP 16; TEMP 36.9; O2SAT 97; BMI 24.2
--- NOTE | 2024-02-10 17:03 | ED.GENADULT ---
HPI - General Adult General Chief complaint: Altered Mental Status Stated complaint: periods of confusion, had dialysis this morning Time Seen by Provider: 02/10/24 17:03 History of Present Illness ED Provider: Osiel PINTO narrative: The patient is a 73-year-old woman who was a dialysis patient. She also has a history of liver cirrhosis and has had a liver transplant. The patient has dialysis on Tuesdays, , and Saturdays. Last week the patient was hospitalized at this hospital for altered mental status that was felt to be an acute metabolic encephalopathy due to uremia as well as chronic diastolic congestive heart failure and missed hemodialysis. The patient was admitted to the hospital here last week on FridayFebruary 03 and discharged the following day on February 04. History today is limited because the patient is confused. According to paramedics the patient was brought by ambulance from home. The patient has been at dialysis earlier in the day. Apparently at dialysis staff has been concerned about possible confusion and visual hallucinations. The patient apparently refused to transport to the hospital that time and went home. At home somebody called 911 because of her confusion. Whether this was a friend or possibly a social media strategist who had come to check on her is not clear. The patient admits that she has been confused a lot recently and that she has had visual hallucinations. She does not think she has had a fever. She has chronic low back pain for which he takes oxycodone. Related Data Home Medications ?Medication ?Instructions ?Recorded ?Confirmed aspirin 81 mg tablet,delayed 81 mg PO DAILY@1200 01/26/20 02/04/24 release allopurinol 100 mg tablet 100 mg PO DAILY@1200 03/08/20 02/04/24 cholecalciferol (vitamin D3) 50 1 tab PO DAILY@119908/14/20 02/04/24 mcg (2,000 unit) tablet hydroxyzine HCl 25 mg tablet 1 tab PO TID PRN Itching 08/14/20 02/04/24 ropinirole 0.5 mg tablet 1 tab PO BEDTIME@2200 08/14/20 02/04/24 venlafaxine 25 mg tablet 1 tab PO DAILY@1200 08/14/20 02/04/24 famotidine 20 mg tablet 1 tab PO BID@1200,2200 01/14/22 02/04/24 rosuvastatin 5 mg tablet 1 tab PO BEDTIME 01/14/22 02/04/24 levothyroxine 88 mcg tablet 88 mcg PO DAILY@0600 01/20/23 02/04/24 albuterol sulfate 90 mcg/actuation 1 puff inhalation Q6H PRN wheezing 06/09/23 02/04/24 aerosol inhaler (Ventolin HFA) calcium citrate 200 mg (950 mg) 400 mg PO BID@1200,2200 06/09/23 02/04/24 tablet tacrolimus 0.5 mg capsule, 0.5 mg PO BID@1200,2200 07/15/23 02/04/24 immediate-release folic acid 1 mg tablet 1 mg PO DAILY@1200 02/04/24 02/04/24 metoprolol tartrate 25 mg tablet 25 mg PO BID@1200,2200 02/04/24 02/04/24 Allergies Allergy/AdvReac Type Severity Reaction Status Date / Time Sulfa (Sulfonamide Allergy Intermediate HIVES Verified 02/10/24 16:31 Antibiotics) Heparin Analogues Allergy Unknown UNKNOWN Verified 02/10/24 16:31 [Heparin Agents] verapamil Allergy Unknown unknown Verified 02/10/24 16:31 Review of Systems Review of Systems: Yes all other systems are reviewed and are negative PMFSH Past Medical History Medical History (Updated 02/10/24 @ 23:51 by Jose Cartagena MD) ESRD (end stage renal disease) on dialysis Congestive heart failure Patient on waiting list for kidney transplant Gout History of transcatheter aortic valve replacement (TAVR) History of blood transfusion GERD (gastroesophageal reflux disease) Anxiety and depression AV fistula Hemodialysis patient COVID-19 vaccine series completed Murmur Hyperkalemia Left inguinal hernia DJD (degenerative joint disease) of thoracic spine Neuropathy End-stage renal disease (ESRD) COPD (chronic obstructive pulmonary disease) Coronary artery disease Bronchitis Asthma Arthritis Anemia Cirrhosis Surgical History (Updated 02/10/24 @ 23:51 by Jose Cartagena MD) Hx of colonoscopy History of liver transplant History of surgery on arm Social History Social History Household Members: None Housing: Apartment Are you a primary medicare interviewer to a significant other at home: No Do you presently have visiting nurse or other home services: Yes Unable to assess alcohol history related to: Unable to respond Alcohol intake: never Comment: pt refused bed alarm Patient Tobacco Use Status: Former Tobacco user Tobacco use type: Cigarette Cigarette Packs Per Day: 2 Cigarettes Per Day: 40.0 Years Smoked: 25 Smoked in Last 30 Days: No e-Cigarette/Vaping Use: Never Used Second Hand Smoke Exposure: No Use of substances other than those prescribed or required for medical reasons: No Advance Directives: Yes Advance Directives on File: Yes Advance Directives Date on File: 03/08/20 Do you have a plan to hurt others: No Plan service: No Current occupational status: retired Physical Exam ED Vital Signs: Vital Signs - 24 hr 02/10/24 16:30 02/10/24 18:08 02/10/24 19:16 Temperature 98.4 F 98.6 F 97.5 F Pulse Rate 65 57 59 Respiratory Rate 16 14 18 Blood Pressure 131/59 L 141/60 H 150/56 H Pulse Oximetry 97 97 100 Oxygen Delivery Method Room Air Room Air Room Air 02/10/24 22:01 Temperature 98.3 F Pulse Rate 58 Respiratory Rate 12 Blood Pressure 148/62 H Pulse Oximetry 100 Oxygen Delivery Method Room Air BMI result Body Mass Index 24.2 Const Other: The patient is a frail looking 73-year-old who seems quite chronically ill. She seems sleepy. She was arousable. She seems a very poorly oriented historian. HENMT Other: Face is symmetrical. Mucous membranes moist. Eyes Other: Pupils are round equal, conjunctivae are clear, extraocular movements intact Neck Other: Moving her neck easily, neck is supple, no JVD Resp Effort & Inspection: normal respiratory effort Auscultation: clear to auscultation bilaterally Cardio Rate: regular rate Rhythm: regular rhythm Heart sounds: S1 normal heart sound present and S2 normal heart sound present GI Other: The abdomen is flat and soft. She reports some generalized diffuse tenderness but overall the abdomen seems benign. Skin Other: Skin is pale and dry. Neuro Other: The patient was sleepy but arousable. She seemed mildly confused and was a very rambling historian. She was poorly oriented. Occasionally she seemed coherent and other times her mind seemd to wander. Cranial nerves are grossly intact. She moves her extremities symmetrically. Do not feel she has any dysarthria or aphasia. Overall her neurological exam is nonfocal but with some generalized confusion and disorientation. Extrem Other: No peripheral edema Medications Administered Generic Name Dose Route Start Last Admin Trade Name Freq PRN Reason Stop Dose Admin Ceftriaxone Sodium 1 gm 02/11/24 00:00 02/11/24 01:02 Ceftriaxone Sodium 1 Gm Vial IVPUSH 1 gm Q24H STACI Administration Heparin Sodium (Porcine) 5,000 unit 02/10/24 23:45 02/11/24 00:57 Heparin Sodium,Porcine 5,000 Unit/Ml Vial SUBCUT 5,000 unit Q12H STACI Administration Sodium Chloride 3 ml 02/11/24 00:00 02/11/24 00:58 0.9 % Sodium Chloride Flush 3 Ml Syringe IVFLUSH 3 ml QSHIFT STACI Administration Medical Decision Making Medical Decision Making [facility] Narrative: The patient is a 73-year-old female who was a dialysis patient and who was also a liver transplant patient who was brought to the hospital by ambulance because of concerns about the patient's mental status. I spoke to the patient's sister, her healthcare proxy, to try to get more information but the patient is sister was unaware of any recent details. Clinically the patient seems to be mildly encephalopathic. Do not think she is showing any signs of meningitis or obvious toxicity. She has an elevated white count but she does not have a fever. CRP is not higher than previous CRPs. The patient says she makes a small amount of urine. We obtained a very small amount of urine from a straight cath. This showed greater than 50 white cells. A culture was set up. Head CT is negative. A CT of the chest shows chronic changes. I consulted the hospitalist and the patient will be admitted for what I think is a metabolic encephalopathy.. The patient has a TSH of 68. It is not clear what role this is playing in the patient's mental status. The patient was given a dose of ceftriaxone. Urine culture is pending. Blood cultures are also pending. My overall suspicion for an acute infectious process is not terribly high but the patient is a transplant patient on immune suppressants. Lab Data 02/10/24 18:22 02/10/24 18:22 Labs: Lab Results 02/10/24 02/10/24 02/10/24 Range/Units 18:22 18:28 22:15 WBC 17.9 H (4.8-10.8) X10*3/uL RBC 4.18 L (4.20-5.50) X10*6/uL Hgb 12.5 (12.0-16.0) g/dl Hct 39.6 (37.0-47.0) % MCV 94.7 (80.0-98.0) fL MCH 29.9 (27.0-33.0) pg MCHC 31.6 (31.0-35.0) g/dl RDW 14.4 (11.0-16.0) % Plt Count 214 (160-400) X10*3/uL MPV 10.3 (9.4-12.3) fL Immature Gran % (Auto) 0.4 (0.0-0.4) % Neut % (Auto) 85.7 H (45-73) % Lymph % (Auto) 7.8 L (20-40) % [place] % (Auto) 5.0 (2-11) % Eos % (Auto) 0.8 (0-4) % Baso % (Auto) 0.3 (0-2) % Lymph # (Auto) 1.4 (1.2-4.9) X10*3/uL [place] # (Auto) 0.9 (0.1-1.2) X10*3/uL Eos # (Auto) 0.2 (0.0-0.4) X10*3/uL Baso # (Auto) 0.1 (0.0-0.2) X10*3/uL Abs Immat Gran (auto) 0.07 H (0.00-0.03) X10*3/uL Absolute Neuts (auto) 15.3 H (2.0-8.3) x10*3/uL Absolute Nucleated RBC 0.020 H (0.0-0.012) X10*3/uL Nucleated RBC % (auto) 0.1 (0.0-0.2) /100WBC PT 12.1 (10.9-12.4) SEC INR 1.0 (0.9-1.1) VBG pH 7.36 (7.32-7.43) VBG pCO2 55 mmHg VBG pO2 32 mmHg VBG HCO3 31 H (22-26) mmol/L VBG O2 Saturation 45.0 % VBG Base Excess 5.0 mmol/L Sodium 138 (135-145) mmol/L Potassium 4.8 (3.3-5.1) mmol/L Chloride 102 (96-108) mmol/L Carbon Dioxide 30 H (22-29) mmol/L Anion Gap 11 L (12-20) BUN 15 (9-16) mg/dL Creatinine 4.61 H* (0.5-1.4) mg/dL Estim Creat Clear Calc 11.1 Estimated GFR 9 Random Glucose 100 (60-115) mg/dL Lactic Acid 1.6 (0.5-2.0) mmol/L Calcium 9.7 (8.4-10.2) mg/dL Magnesium 2.3 (1.6-2.6) mg/dL Total Bilirubin 0.4 (0.0-1.0) mg/dL Direct Bilirubin 0.2 (0.0-0.5) mg/dL AST 33 H (5-31) U/L ALT 10 (0-31) U/L Alkaline Phosphatase 99 (39-117) U/L Troponin I High Sens 24.4 H (<3.5-17.0) ng/L C-Reactive Protein 2.76 H (< or = 0.50) mg/dL B-Natriuretic Peptide 287 H (<100) pg/mL Total Protein 7.0 (6.5-8.0) g/dL Albumin 3.2 L (3.5-5.0) g/dL TSH 68.06 H (0.32-4.0) uIU/mL Urine Color Urine Appearance Urine pH Ur Specific [place] Urine Protein Urine Glucose (UA) Urine Ketones Urine Blood Urine Nitrite Ur Leukocyte Esterase Urine RBC (0-2) /HPF Urine WBC (0-5) /HPF Ur Squamous Epith Cells (0-2) /HPF Urine Bacteria (None Seen) Hyaline Casts (0-2) /LPF Ethyl Alcohol 10 mg/dL Influenza Type A (PCR) NEGATIVE (Negative) Influenza Type B (PCR) NEGATIVE (Negative) RSV RNA Qual (PCR) NEGATIVE (Negative) SARS-CoV-2 RNA (RT-PCR) NEGATIVE (Negative) 02/10/24 Range/Units 22:55 WBC (4.8-10.8) X10*3/uL RBC (4.20-5.50) X10*6/uL Hgb (12.0-16.0) g/dl Hct (37.0-47.0) % MCV (80.0-98.0) fL MCH (27.0-33.0) pg MCHC (31.0-35.0) g/dl RDW (11.0-16.0) % Plt Count (160-400) X10*3/uL MPV (9.4-12.3) fL Immature Gran % (Auto) (0.0-0.4) % Neut % (Auto) (45-73) % Lymph % (Auto) (20-40) % [place] % (Auto) (2-11) % Eos % (Auto) (0-4) % Baso % (Auto) (0-2) % Lymph # (Auto) (1.2-4.9) X10*3/uL [place] # (Auto) (0.1-1.2) X10*3/uL Eos # (Auto) (0.0-0.4) X10*3/uL Baso # (Auto) (0.0-0.2) X10*3/uL Abs Immat Gran (auto) (0.00-0.03) X10*3/uL Absolute Neuts (auto) (2.0-8.3) x10*3/uL Absolute Nucleated RBC (0.0-0.012) X10*3/uL Nucleated RBC % (auto) (0.0-0.2) /100WBC PT (10.9-12.4) SEC INR (0.9-1.1) VBG pH (7.32-7.43) VBG pCO2 mmHg VBG pO2 mmHg VBG HCO3 (22-26) mmol/L VBG O2 Saturation % VBG Base Excess mmol/L Sodium (135-145) mmol/L Potassium (3.3-5.1) mmol/L Chloride (96-108) mmol/L Carbon Dioxide (22-29) mmol/L Anion Gap (12-20) BUN (9-16) mg/dL Creatinine (0.5-1.4) mg/dL Estim Creat Clear Calc Estimated GFR Random Glucose (60-115) mg/dL Lactic Acid (0.5-2.0) mmol/L Calcium (8.4-10.2) mg/dL Magnesium (1.6-2.6) mg/dL Total Bilirubin (0.0-1.0) mg/dL Direct Bilirubin (0.0-0.5) mg/dL AST (5-31) U/L ALT (0-31) U/L Alkaline Phosphatase (39-117) U/L Troponin I High Sens (<3.5-17.0) ng/L C-Reactive Protein (< or = 0.50) mg/dL B-Natriuretic Peptide (<100) pg/mL Total Protein (6.5-8.0) g/dL Albumin (3.5-5.0) g/dL TSH (0.32-4.0) uIU/mL Urine Color Brown A Urine Appearance Cloudy Urine pH QNS Ur Specific [place] QNS Urine Protein QNS Urine Glucose (UA) QNS Urine Ketones QNS Urine Blood QNS Urine Nitrite QNS Ur Leukocyte Esterase QNS Urine RBC 3-5 H (0-2) /HPF Urine WBC >50 H (0-5) /HPF Ur Squamous Epith Cells 3-5 (0-2) /HPF Urine Bacteria Trace (None Seen) Hyaline Casts 0-2 (0-2) /LPF Ethyl Alcohol mg/dL Influenza Type A (PCR) (Negative) Influenza Type B (PCR) (Negative) RSV RNA Qual (PCR) (Negative) SARS-CoV-2 RNA (RT-PCR) (Negative) Independent Interpretation I performed an independent interpretation of an: EKG Interpretation: EKG at 18:16 shows sinus bradycardia with first-degree AV block at 59 beats per minute. No acute findings. Critical Care Time Critical Care Time Critical Care Time: Yes Total Critical Care Time: 35 Attestation: The patient was critically ill with a high probability of imminent or life-threatening deterioration. ?I spent greater than 30 minutes of discontinuous time evaluating the patient, delivering critical care at the bedside, discussing evaluating data with consultants. ?Critical care time does not include time spent performing separately billable procedures or teaching. ?Time spent performing critical care with 35 minutes. Discharge Plan Discharge Clinical Impression: Acute metabolic encephalopathy, Chronic renal failure, Urinary tract infection, Adult hypothyroidism, Liver transplant recipient Patient Disposition: Admitted As Inpatient
--- NOTE | 2024-02-10 17:34 | ECG_ITS ---
Test Reason : altered meantal staatus Blood Pressure : / mmHG Vent. Rate : 059 BPM Atrial Rate : 059 BPM P-R Int : 212 ms QRS Dur : 092 ms QT Int : 410 ms P-R-T Axes : 073 -21 080 degrees QTc Int : 405 ms Sinus bradycardia with 1st degree A-V block Anteroseptal infarct (cited on or before 02-FEB-2021) Abnormal ECG When compared with ECG of 04-FEB-2024 04:36, No significant changes seen Referred By: Jose Cartagena Electronically Signed By:Ralf Daniel
[2024-02-10 18:08] VITALS: BP 141/60; PULSE 57; RESP 14; TEMP 37; O2SAT 97
[2024-02-10 18:29] LABS: MANUAL DIFF FLAG NO
[2024-02-10 18:33] LABS: Basophils Absolute Auto 0.1 X10*3/uL (0.0-0.2); Basophils Percent Auto 0.3 % (0-2); Eosinophils Absolute Auto 0.2 X10*3/uL (0.0-0.4); Eosinophils Percent Auto 0.8 % (0-4); Hematocrit 39.6 % (37.0-47.0); Hemoglobin 12.5 g/dl (12.0-16.0); Imm Gran Abs Auto 0.07 X10*3/uL (0.00-0.03); Imm Gran Pct Auto 0.4 % (0.0-0.4); Lymphocytes Absolute Auto 1.4 X10*3/uL (1.2-4.9); Lymphocytes Percent Auto 7.8 % (20-40); Mean Corpuscular HGB Conc 31.6 g/dl (31.0-35.0); Mean Corpuscular Hemoglobin 29.9 pg (27.0-33.0); Mean Corpuscular Volume 94.7 fL (80.0-98.0); Mean Platelet Volume 10.3 fL (9.4-12.3); Monocytes Absolute Auto 0.9 X10*3/uL (0.1-1.2); NRBC Pct Auto 0.1 /100WBC (0.0-0.2); Neutrophils Absolute Auto 15.3 x10*3/uL (2.0-8.3); Neutrophils Percent Auto 85.7 % (45-73); Platelet Count 214 X10*3/uL (160-400); Red Blood Count 4.18 X10*6/uL (4.20-5.50); Red Cell Distribution Width 14.4 % (11.0-16.0); White Blood Count 17.9 X10*3/uL (4.8-10.8)
[2024-02-10 18:34] LABS: VBG HCO3 31 mmol/L (22-26); VBG pCO2 55 mmHg; VBG pH 7.36 (7.32-7.43); VBG pO2 32 mmHg
[2024-02-10 18:35] LABS: Venous Blood Gas Refer to POC result
[2024-02-10 18:44] LABS: Prothrombin Time 12.1 SEC (10.9-12.4)
[2024-02-10 18:51] LABS: Ethanol 10 mg/dL
[2024-02-10 18:57] LABS: B Type Natriuretic Peptide 287 pg/mL (<100)
[2024-02-10 19:03] LABS: Troponin-I High Sensitivity 24.4 ng/L (<3.5-17.0)
[2024-02-10 19:05] LABS: Alanine Aminotransferase 10 U/L (0-31); Albumin Level 3.2 g/dL (3.5-5.0); Alkaline Phosphatase 99 U/L (39-117); Anion Gap 11 (12-20); Aspartate Amino Transferase 33 U/L (5-31); Bilirubin Direct 0.2 mg/dL (0.0-0.5); Bilirubin Total 0.4 mg/dL (0.0-1.0); Blood Urea Nitrogen 15 mg/dL (9-16); C Reactive Protein 2.76 mg/dL (< or = 0.50); Calcium 9.7 mg/dL (8.4-10.2); Carbon Dioxide 30 mmol/L (22-29); Chloride 102 mmol/L (96-108); Creatinine Clr Calc Pharmacy 11.1; Estimated Glomerular Filt Rate 9; Glucose Random 100 mg/dL (60-115); Magnesium 2.3 mg/dL (1.6-2.6); Potassium 4.8 mmol/L (3.3-5.1); Sodium 138 mmol/L (135-145)
[2024-02-10 19:13] LABS: Influenza A PCR NEGATIVE (Negative); Influenza B PCR NEGATIVE (Negative); Resp Syncy Virus RNA Qual PCR NEGATIVE (Negative); SARS COV2 PCR INHOUSE NEGATIVE (Negative)
[2024-02-10 19:16] VITALS: BP 150/56; PULSE 59; RESP 18; TEMP 36.4; O2SAT 100
[2024-02-10 19:19] LABS: Thyroid Stimulating Hormone 68.06 uIU/mL (0.32-4.0)
[2024-02-10 22:01] VITALS: BP 148/62; PULSE 58; RESP 12; TEMP 36.8; O2SAT 100
[2024-02-10 22:33] LABS: Lactic Acid 1.6 mmol/L (0.5-2.0)
--- NOTE | 2024-02-10 22:59 | PC.NURSE ---
Straight catheterization inserted. Obtained 1-2ml of concentrated urine. Sent to lab for analysis. Primary RN (Mimi Nicholas) notified.
[2024-02-10 23:24] LABS: Appearance Urine Cloudy; Color Urine Brown; UMIC TRIGGER UACC YES
[2024-02-10 23:26] LABS: Glucose Urine UA QNS mg/dL (Negative); Leukocyte Esterase Urine QNS (Negative); Nitrite Urine QNS (Negative); PH QNS (5.0-9.0); Specific Gravity - Urine QNS (1.005-1.025); Urine Blood QNS (Negative); Urine Ketones QNS mg/dL (Negative); Urine Protein QNS mg/dL (Neg-Trace); WBC Urine >50 /HPF (0-5)
[2024-02-10 23:27] LABS: Bacteria Urine Trace (None Seen); Hyaline Casts Urine 0-2 /LPF (0-2)
--- NOTE | 2024-02-10 23:38 | PM.IMHP ---
History of Present Illness Date of Service: 02/10/24 Chief Complaint: Confusion This is a 73-year-old female with pertinent history of ESRD on dialysis (T/T/S), atrial fibrillation not on anticoagulation, COPD not on home oxygen, gastroesophageal reflux disease, thyroid cancer status post radiation therapy, status post TAVR, coronary artery disease, cirrhosis status post liver transplant, gout, mood disorder, hypothyroidism who was sent to the emergency department for evaluation of confusion. Patient was recently admitted to the hospital for acute encephalopathy due to uremia and acute on chronic congestive heart failure in the setting of missed dialysis. History is limited due to confusion. Patient does endorse ongoing confusion and weakness. Also has been having some hallucinations. As per paramedics, patient was at dialysis and was confused. She was sent to the ER for further evaluation. Patient states that she has been in and out of the hospital and hence has not been taking her medications. She could not say if she was taking her thyroid medications regularly. Does endorse abdominal discomfort. No fever, chills, chest pain, palpitations, shortness of breath, changes in bowel habits. In the emergency department, white count found to be elevated and urine with more than 50 WBC Review of Systems Review of Systems: Yes Unobtainable due to mental status [facility] Medical History (Updated 02/10/24 @ 23:51 by Jose Cartagena MD) ESRD (end stage renal disease) on dialysis Congestive heart failure Patient on waiting list for kidney transplant Gout History of transcatheter aortic valve replacement (TAVR) History of blood transfusion GERD (gastroesophageal reflux disease) Anxiety and depression AV fistula Hemodialysis patient COVID-19 vaccine series completed Murmur Hyperkalemia Left inguinal hernia DJD (degenerative joint disease) of thoracic spine Neuropathy End-stage renal disease (ESRD) COPD (chronic obstructive pulmonary disease) Coronary artery disease Bronchitis Asthma Arthritis Anemia Cirrhosis Surgical History (Updated 02/10/24 @ 23:51 by Jose Cartagena MD) Hx of colonoscopy History of liver transplant History of surgery on arm Social History Household Members: None Housing: Apartment Are you a primary live in caregiver to a significant other at home: No Do you presently have visiting nurse or other home services: Yes Unable to assess alcohol history related to: Unable to respond Alcohol intake: never Comment: pt refused bed alarm Patient Tobacco Use Status: Former Tobacco user Tobacco use type: Cigarette Cigarette Packs Per Day: 2 Cigarettes Per Day: 40.0 Years Smoked: 25 Smoked in Last 30 Days: No e-Cigarette/Vaping Use: Never Used Second Hand Smoke Exposure: No Use of substances other than those prescribed or required for medical reasons: No Advance Directives: Yes Advance Directives on File: Yes Advance Directives Date on File: 03/08/20 Do you have a plan to hurt others: No Plan service: No Current occupational status: retired Meds Allergies Allergy/AdvReac Type Severity Reaction Status Date / Time Sulfa (Sulfonamide Allergy Intermediate HIVES Verified 02/10/24 16:31 Antibiotics) Heparin Analogues Allergy Unknown UNKNOWN Verified 02/10/24 16:31 [Heparin Agents] verapamil Allergy Unknown unknown Verified 02/10/24 16:31 Active Medications: Current Medications Acetaminophen (Acetaminophen 325 Mg Tablet) 650 mg PO Q6H PRN PRN Reason: Pain, Mild (Pain Scale 1-3), fever or headache Calcium Carbonate (Calcium Carbonate 750 Mg Tab.Chew) 750 mg PO Q4H PRN PRN Reason: Heartburn Heparin Sodium (Porcine) (Heparin Sodium,Porcine 5,000 Unit/Ml Vial) 5,000 unit SUBCUT Q12H STACI Magnesium Hydroxide (Milk Of Magnesia 30 Ml Oral.Susp) 30 ml PO DAILY PRN PRN Reason: Constipation Melatonin (Melatonin 3 Mg Tablet) 6 mg PO BEDTIME PRN PRN Reason: Insomnia Sodium Chloride (0.9 % Sodium Chloride Flush 3 Ml Syringe) 3 ml IVFLUSH QSHIFT STACI Home Medications ?Medication ?Instructions ?Recorded ?Confirmed ?Last Taken ?Type aspirin 81 mg tablet,delayed 81 mg PO DAILY@119901/26/20 02/04/24 02/03/24 History release allopurinol 100 mg tablet 100 mg PO DAILY@119903/08/20 02/04/24 02/03/24 History cholecalciferol (vitamin D3) 50 1 tab PO DAILY@119908/14/20 02/04/24 02/03/24 History mcg (2,000 unit) tablet hydroxyzine HCl 25 mg tablet 1 tab PO TID PRN Itching 08/14/20 02/04/24 04/04/23 History ropinirole 0.5 mg tablet 1 tab PO BEDTIME@2200 08/14/20 02/04/2402/02/24 History venlafaxine 25 mg tablet 1 tab PO DAILY@1200 08/14/20 02/04/24 02/03/24 History famotidine 20 mg tablet 1 tab PO BID@1200,2200 01/14/22 02/04/24 02/03/24 History rosuvastatin 5 mg tablet 1 tab PO BEDTIME 01/14/22 02/04/24 02/03/24 History levothyroxine 88 mcg tablet 88 mcg PO DAILY@0600 01/20/23 02/04/24 02/03/24 History albuterol sulfate 90 mcg/actuation 1 puff inhalation Q6H PRN wheezing 06/09/23 02/04/24 Unknown History aerosol inhaler (Ventolin HFA) calcium citrate 200 mg (950 mg) 400 mg PO BID@1200,2200 06/09/23 02/04/24 02/03/24 History tablet tacrolimus 0.5 mg capsule, 0.5 mg PO BID@1200,2200 07/15/23 02/04/24 02/03/24 History immediate-release folic acid 1 mg tablet 1 mg PO DAILY@1200 02/04/24 02/04/24 02/03/24 History metoprolol tartrate 25 mg tablet 25 mg PO BID@1200,2200 02/04/24 02/04/24 02/03/24 History Physical Exam Vital Signs and Narrative: Vital Signs: Last Vital Signs Temp 98.3 F 02/10/24 22:01 Pulse 58 02/10/24 22:01 Resp 12 02/10/24 22:01 BP 148/62 H 02/10/24 22:01 Pulse Ox 100 02/10/24 22:01 O2 Del Method Room Air 02/10/24 22:01 BMI result Body Mass Index 24.2 Middle-aged female lying in bed in no distress Neck supple, no JVD Regular rate and rhythm, S1-S2 heard Regular breath sounds bilaterally, no wheezing or crackles appreciated Abdomen with mild tenderness, no guarding, no rigidity Patient is awake, alert and oriented to self, place, disoriented to time and person ; no focal motor deficit Psych: Normal mood No pedal edema Results Labs 02/10/24 18:22 02/10/24 18:22 Labs: Laboratory Results - last 24 hr 11/03/2302/10/24 02/10/24 18:22 18:28 22:15 MCV 94.7 MCH 29.9 MCHC 31.6 RDW 14.4 Plt Count 214 MPV 10.3 Immature Gran % (Auto) 0.4 Neut % (Auto) 85.7 H Lymph % (Auto) 7.8 L [place] % (Auto) 5.0 Eos % (Auto) 0.8 Baso % (Auto) 0.3 Lymph # (Auto) 1.4 [place] # (Auto) 0.9 Eos # (Auto) 0.2 Baso # (Auto) 0.1 Abs Immat Gran (auto) 0.07 H Absolute Neuts (auto) 15.3 H Absolute Nucleated RBC 0.020 H Nucleated RBC % (auto) 0.1 PT 12.1 INR 1.0 VBG pH 7.36 VBG pCO2 55 VBG pO2 32 VBG HCO3 31 H VBG O2 Saturation 45.0 VBG Base Excess 5.0 Anion Gap 11 L Estim Creat Clear Calc 11.1 Estimated GFR 9 Random Glucose 100 Lactic Acid 1.6 Calcium 9.7 Magnesium 2.3 Total Bilirubin 0.4 Direct Bilirubin 0.2 AST 33 H ALT 10 Alkaline Phosphatase 99 Troponin I High Sens 24.4 H C-Reactive Protein 2.76 H B-Natriuretic Peptide 287 H Total Protein 7.0 Albumin 3.2 L TSH 68.06 H Urine Color Urine Appearance Urine pH Ur Specific [place] Urine Protein Urine Glucose (UA) Urine Ketones Urine Blood Urine Nitrite Ur Leukocyte Esterase Urine RBC Urine WBC Ur Squamous Epith Cells Urine Bacteria Hyaline Casts Ethyl Alcohol 10 Influenza Type A (PCR) NEGATIVE Influenza Type B (PCR) NEGATIVE RSV RNA Qual (PCR) NEGATIVE SARS-CoV-2 RNA (RT-PCR) NEGATIVE 02/10/24 22:55 MCV MCH MCHC RDW Plt Count MPV Immature Gran % (Auto) Neut % (Auto) Lymph % (Auto) [place] % (Auto) Eos % (Auto) Baso % (Auto) Lymph # (Auto) [place] # (Auto) Eos # (Auto) Baso # (Auto) Abs Immat Gran (auto) Absolute Neuts (auto) Absolute Nucleated RBC Nucleated RBC % (auto) PT INR VBG pH VBG pCO2 VBG pO2 VBG HCO3 VBG O2 Saturation VBG Base Excess Anion Gap Estim Creat Clear Calc Estimated GFR Random Glucose Lactic Acid Calcium Magnesium Total Bilirubin Direct Bilirubin AST ALT Alkaline Phosphatase Troponin I High Sens C-Reactive Protein B-Natriuretic Peptide Total Protein Albumin TSH Urine Color Brown A Urine Appearance Cloudy Urine pH QNS Ur Specific [place] QNS Urine Protein QNS Urine Glucose (UA) QNS Urine Ketones QNS Urine Blood QNS Urine Nitrite QNS Ur Leukocyte Esterase QNS Urine RBC 3-5 H Urine WBC >50 H Ur Squamous Epith Cells 3-5 Urine Bacteria Trace Hyaline Casts 0-2 Ethyl Alcohol Influenza Type A (PCR) Influenza Type B (PCR) RSV RNA Qual (PCR) SARS-CoV-2 RNA (RT-PCR) Imaging Radiologist's Impressions: Impressions Head CT 02/10/24 17:36 IMPRESSION: Chronic changes noted but no evidence for acute intracranial pathology. Electronically signed by: Von Mendez MD 02/10/2024 06:03 PM EST RP Chest X-Ray 02/10/24 17:45 IMPRESSION: Minimal bibasilar opacities unchanged. Nonspecific. Could reflect atelectasis or persistent infiltrate/consolidation. Electronically signed by: Quang Ng MD 02/10/2024 06:03 PM EST RP Chest CT 02/10/24 20:13 IMPRESSION: Bilateral lower lung opacities compatible with chronic scarring and/or discoid atelectasis. Chronic findings as above Fleischner guidelines were followed. Electronically signed by: Quang Ng MD 02/10/2024 10:06 PM EST RP Assessment and Plan (1) Acute encephalopathy: Status: Acute (2) Acute UTI: Status: Acute (3) Hypothyroidism: Status: Acute Plan This is a 73-year-old female with pertinent history of ESRD on dialysis (Friday/Friday/), atrial fibrillation not on anticoagulation, COPD not on home oxygen, gastroesophageal reflux disease, thyroid cancer status post radiation therapy, status post TAVR, coronary artery disease, cirrhosis status post liver transplant, gout, mood disorder, hypothyroidism who was sent to the emergency department for evaluation of confusion. #. Acute encephalopathy due to acute UTI: Will admit patient with IV ceftriaxone. Monitor mentation. UA with more than 50 WBC and bacteria. No sepsis #. Acute diverticulitis: Will add Flagyl to ceftriaxone. #. Hypothyroidism: Noncompliant with Synthroid. Noted elevated TSH. Hypothyroidism likely contributing to weakness. Will resume home Synthroid dose and repeat TSH in 4 weeks. Obtaining T3 and T4 #. ESRD on hemodialysis: [facility] #. Paroxysmal atrial fibrillation: Not on anticoagulation #. COPD: Continue home inhaler. No exacerbation during admission #. Gastroesophageal reflux disease: On famotidine #. Coronary artery disease: On aspirin and statin #. Status post liver transplant: On tacrolimus #. Gout: On allopurinol Med rec pending DVT prophylaxis: Heparin Full code Admit as inpatient and will require two night minimum hospital stay for IV antibiotics (as above), which is not possible in a lesser acute setting. Quality Stroke Does the patient have a stroke diagnosis?: No VTE Prior VTE?: No VTE Risk Level:: Medical - moderate - high VTE Device Contraindication: Treatment Not Indicated VTE Drug Contraindication: N/A - Med Ordered
[2024-02-11] MEDS: Heparin Sodium,Porcine 5,000 UNIT/ML VIAL 5000 UNIT SUBCUT ×3 (00:57→23:42)
[2024-02-11] MEDS: 0.9 % Sodium Chloride Flush 3 ML SYRINGE IVFLUSH ×4 (00:58→23:42)
[2024-02-11] MEDS: cefTRIAXone sodium 1 GM VIAL IVPUSH ×2 (01:02→23:42)
[2024-02-11] MEDS: metroNIDAZOLE/NS 500 MG/100 ML PIGGYBACK 100 MG IV ×3 (02:32→18:20)
[2024-02-11 04:00] VITALS: BP 134/59; PULSE 64; RESP 14; TEMP 36.7; O2SAT 97
[2024-02-11 05:17] LABS: MANUAL DIFF FLAG NO
[2024-02-11 05:22] LABS: Basophils Absolute Auto 0.1 X10*3/uL (0.0-0.2); Basophils Percent Auto 0.3 % (0-2); Eosinophils Absolute Auto 0.5 X10*3/uL (0.0-0.4); Hemoglobin 12.6 g/dl (12.0-16.0); Imm Gran Abs Auto 0.11 X10*3/uL (0.00-0.03); Imm Gran Pct Auto 0.7 % (0.0-0.4); Lymphocytes Absolute Auto 1.8 X10*3/uL (1.2-4.9); Lymphocytes Percent Auto 11.8 % (20-40); Mean Corpuscular HGB Conc 31.5 g/dl (31.0-35.0); Mean Corpuscular Hemoglobin 29.9 pg (27.0-33.0); Mean Corpuscular Volume 94.8 fL (80.0-98.0); Monocytes Absolute Auto 1.1 X10*3/uL (0.1-1.2); Monocytes Percent Auto 7.2 % (2-11); NRBC Pct Auto 0.1 /100WBC (0.0-0.2); Neutrophils Absolute Auto 11.7 x10*3/uL (2.0-8.3); Platelet Count 199 X10*3/uL (160-400); Red Blood Count 4.22 X10*6/uL (4.20-5.50); Red Cell Distribution Width 14.4 % (11.0-16.0); White Blood Count 15.2 X10*3/uL (4.8-10.8)
[2024-02-11 05:58] LABS: Anion Gap 17 (12-20); Blood Urea Nitrogen 18 mg/dL (9-16); Calcium 9.7 mg/dL (8.4-10.2); Carbon Dioxide 23 mmol/L (22-29); Chloride 102 mmol/L (96-108); Creatinine Clr Calc Pharmacy 9.2; Estimated Glomerular Filt Rate 8; Glucose Random 73 mg/dL (60-115); Potassium 5.1 mmol/L (3.3-5.1); Sodium 137 mmol/L (135-145)
[2024-02-11 06:00] LABS: Free T4 (Free Thyroxine) 1.19 ng/dL (0.71-1.85)
[2024-02-11 06:11] LABS: Folate 16.4 ng/mL (> or = 4.0); Vitamin B12 777 pg/mL (200-900)
--- NOTE | 2024-02-11 08:20 | PM.CNNEP ---
History of Present Illness Reason for Consult Consult date: 02/11/24 Chief Complaint Chief complaint: AMS History of Present Illness Narrative: 73 y/o female with ESRD on HD ([facility], [facility], [facility]). She is a patient of Dr Umanzor. 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 Was sent to ED from outpatient dialysis on 02/09 for reports of confusion and hallucinations. Nephrology consulted for ESRD and HD management patient reports today that she has had ongoing confusion and hallucinations since last hospitalization states she sees a spider in her toilet and the towel in her bathtub moving, uses her cane to check underneath it and nothing is there. Sates she also has a ceramic duck on her windowsill that looks like it is moving. She states this is ongoing and not isolated from prior to last hospitalization (at which time she reported similar episode). she states she did receive HD session on 02/09 she states she has some mild abdominal pain some mild dyspnea no chest pain no pain with urination (voids every few days per pt) denies other concerns/new symptoms 02/09 imaging: head CT unremarkable for acute changes chest CT shows basilar scarring and/or discoid atelectasis abdominal CT suggests mild diverticulitis, bilateral renal atrophy 02/10 H&H 12.6 and 40, creatinine 5.55, BUN 18, electrolytes including potassium and calcium within normal limits Review of Systems Constitutional: Denies headache(s) and Reports weakness Comments: reports weakness, hallucinations/confusion ongoing Denies dizziness and Denies headache(s) Cardiovascular: Denies chest pain, Denies leg edema, Denies lightheadedness and Reports dyspnea (reports some mild sensation of dyspnea) Respiratory: Denies cough and Reports dyspnea (reports some mild sensation of dyspnea) Gastrointestinal: Reports abdominal pain (reports mild lower abdominal pain ongoing), Denies constipation, Denies diarrhea, Denies nausea and Denies vomiting Genitourinary: Denies hematuria, Denies difficulty voiding, Denies dysuria, Denies flank pain, Denies urinary hesitancy and Denies urinary urgency Musculoskeletal: Denies arthralgias and Denies muscle cramps Skin/Breast: Denies rash Reports confusion, Denies dizziness, Denies headache(s) and Reports weakness Psychiatric: Reports confusion PMFSH Past Medical History Medical History (Updated 02/11/24 @ 10:02 by Jenna Muro, ROBERT, MEDICAL CENTER DIRECTOR-BC) Hallucinations, visual ESRD (end stage renal disease) on dialysis Congestive heart failure Patient on waiting list for kidney transplant Gout History of transcatheter aortic valve replacement (TAVR) History of blood transfusion GERD (gastroesophageal reflux disease) Anxiety and depression AV fistula Hemodialysis patient COVID-19 vaccine series completed Murmur Hyperkalemia Left inguinal hernia DJD (degenerative joint disease) of thoracic spine Neuropathy End-stage renal disease (ESRD) COPD (chronic obstructive pulmonary disease) Coronary artery disease Bronchitis Asthma Arthritis Anemia Cirrhosis Surgical History Surgical History (Updated 02/10/24 @ 23:51 by Jose Cartagena MD) Hx of colonoscopy History of liver transplant History of surgery on arm Social History Social History Household Members: None Housing: Apartment Are you a primary resident care director to a significant other at home: No Do you presently have visiting nurse or other home services: Yes Unable to assess alcohol history related to: Unable to respond Alcohol intake: never Comment: pt refused bed alarm Patient Tobacco Use Status: Former Tobacco user Tobacco use type: Cigarette Cigarette Packs Per Day: 2 Cigarettes Per Day: 40.0 Years Smoked: 25 Smoked in Last 30 Days: No e-Cigarette/Vaping Use: Never Used Second Hand Smoke Exposure: No Use of substances other than those prescribed or required for medical reasons: No Advance Directives: Yes Advance Directives on File: Yes Advance Directives Date on File: 03/08/20 Do you have a plan to hurt others: No Plan Nutrition Risks: No Nutritional Risk service: No Current occupational status: retired Meds Allergies Allergy/AdvReac Type Severity Reaction Status Date / Time Sulfa (Sulfonamide Allergy Intermediate HIVES Verified 02/10/24 16:31 Antibiotics) Heparin Analogues Allergy Unknown UNKNOWN Verified 02/10/24 16:31 [Heparin Agents] verapamil Allergy Unknown unknown Verified 02/10/24 16:31 Active Medications: Current Medications Acetaminophen (Acetaminophen 325 Mg Tablet) 650 mg PO Q6H PRN PRN Reason: Pain, Mild (Pain Scale 1-3), fever or headache Calcium Carbonate (Calcium Carbonate 750 Mg Tab.Chew) 750 mg PO Q4H PRN PRN Reason: Heartburn Ceftriaxone Sodium (Ceftriaxone Sodium 1 Gm Vial) 1 gm IVPUSH Q24H [facility] Last Admin: 02/11/24 01:02 Dose: 1 gm Heparin Sodium (Porcine) (Heparin Sodium,Porcine 5,000 Unit/Ml Vial) 5,000 unit SUBCUT Q12H [facility] Last Admin: 02/11/24 00:57 Dose: 5,000 unit Metronidazole (Flagyl) 500 mg in 100 mls @ 100 mls/hr IV Q8H [facility] Last Infusion: 02/11/24 03:26 Dose: Infused Magnesium Hydroxide (Milk Of Magnesia 30 Ml Oral.Susp) 30 ml PO DAILY PRN PRN Reason: Constipation Melatonin (Melatonin 3 Mg Tablet) 6 mg PO BEDTIME PRN PRN Reason: Insomnia Ondansetron HCl (Ondansetron Hcl 4 Mg/2 Ml Vial) 4 mg IVPUSH Q8H PRN PRN Reason: Nausea and Vomiting Sodium Chloride (0.9 % Sodium Chloride Flush 3 Ml Syringe) 3 ml IVFLUSH QSHIFT [facility] Last Admin: 02/11/24 08:46 Dose: 3 ml Home Medications ?Medication ?Instructions ?Recorded ?Confirmed ?Last Taken ?Type aspirin 81 mg tablet,delayed 81 mg PO DAILY@1200 01/26/20 02/11/24 02/03/24 History release allopurinol 100 mg tablet 100 mg PO DAILY@1200 03/08/20 02/11/24 02/03/24 History cholecalciferol (vitamin D3) 50 1 tab PO DAILY@1200 08/14/20 02/11/24 02/03/24 History mcg (2,000 unit) tablet hydroxyzine HCl 25 mg tablet 1 tab PO TID PRN Itching 08/14/20 02/11/24 04/04/23 History ropinirole 0.5 mg tablet 1 tab PO BEDTIME@2200 08/14/20 02/11/24 02/03/24 History venlafaxine 25 mg tablet 1 tab PO DAILY@1200 08/14/20 02/11/24 02/03/24 History famotidine 20 mg tablet 1 tab PO BID@1200,2200 01/14/22 02/11/24 02/03/24 History rosuvastatin 5 mg tablet 1 tab PO BEDTIME 01/14/22 02/11/24 02/03/24 History levothyroxine 88 mcg tablet 88 mcg PO DAILY@0600 01/20/23 02/11/24 02/03/24 History albuterol sulfate 90 mcg/actuation 1 puff inhalation Q6H PRN wheezing 06/09/23 02/11/24 Unknown History aerosol inhaler (Ventolin HFA) calcium citrate 200 mg (950 mg) 400 mg PO BID@1200,2200 06/09/23 02/11/24 02/03/24 History tablet tacrolimus 0.5 mg capsule, 0.5 mg PO BID@1200,2200 07/15/23 02/11/24 02/03/24 History immediate-release folic acid 1 mg tablet 1 mg PO DAILY@1200 02/04/24 02/11/24 02/03/24 History metoprolol tartrate 25 mg tablet 25 mg PO BID@1200,2200 02/04/24 02/11/24 02/03/24 History Physical Exam Vital Signs: Last Vital Signs Temp 98.1 F 02/11/24 04:00 Pulse 104 H 02/11/24 08:48 Resp 16 02/11/24 08:48 BP 113/53 L 02/11/24 08:48 Pulse Ox 97 02/11/24 08:48 O2 Del Method Room Air 02/11/24 08:48 BMI result Body Mass Index 24.2 Const General: no acute distress, alert, awake and confusion Orientation/consciousness: oriented to person, oriented to place and confusion Neck Neck: Yes no JVD Resp Effort & Inspection: normal respiratory effort and able to speak in complete sentences Auscultation: clear to auscultation bilaterally Cardio Jugular venous distension: no JVD Rate: regular rate Rhythm: regular rhythm Heart sounds: S1 normal heart sound present, S2 normal heart sound present and Murmur heart sound present GI Palpation (GI): Soft to palpation and Tenderness to palpation present (GI) (reportedly tender to palpation of lower abdomen) General: Yes no CVA tenderness Back/Spine/Pelvis Back: no CVA tenderness Skin Lesions: no lesions Rashes: no rashes Neuro General: oriented to person, oriented to place and confusion Extrem General: No edema and No pedal edema Results Lab Results 02/11/24 04:40 02/11/24 04:40 Lab results: Chemistry 02/10/24 02/11/24 18:22 04:40 Sodium 138 137 Potassium 4.8 5.1 Carbon Dioxide 30 H 23 BUN 15 18 H Creatinine 4.61 H* 5.55 H* Calcium 9.7 9.7 Hematology 02/10/24 02/11/24 18:22 04:40 WBC 17.9 H 15.2 H Hgb 12.5 12.6 Plt Count 214 199 Urinalysis 02/10/24 22:55 Urine Color Brown A Urine Appearance Cloudy Urine pH QNS Ur Specific [place] QNS Urine Protein QNS Urine Glucose (UA) QNS Urine Ketones QNS Urine Blood QNS Urine Nitrite QNS Ur Leukocyte Esterase QNS Urine RBC 3-5 H Urine WBC >50 H Ur Squamous Epith Cells 3-5 Hyaline Casts 0-2 Assessment and Plan (1) ESRD (end stage renal disease) on dialysis: Status: Chronic (2) Weakness: Status: Acute (3) Acute diverticulitis: Status: Acute (4) Liver transplant recipient: Status: Acute (5) Hallucinations, visual: Status: Acute Plan 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 ~15 years ago) on HD here with weakness, hallucinations, concern for infection given immunosuppressed status recommend workup for infection- continue treatment of diverticulitis as planned Orders in for HD , , Fri schedule as she is outpatient clinically euvolemic at this time 02/10 H&H 12.6 and 40, no indication for procrit at this time electrolytes including potassium and calcium within normal limits not acidotic at this time- serum bicarb of 23 has left upper extremity AV fistula with +bruit, +thrill oliguric at baseline (small amount every few days per pt) Will continue to follow Discussed with Dr Juma Rowan Date of Service Date of Service: 02/11/24
[2024-02-11 08:48] VITALS: BP 113/53; PULSE 104; RESP 16; O2SAT 97
--- NOTE | 2024-02-11 09:08 | PC.NURSE ---
Dr. Pandya to bedside. No new orders received.
--- NOTE | 2024-02-11 09:36 | PHA.MEDREC ---
Addendum entered by Dwayne Hernandez RPh 02/11/24 09:44: Last discharged 02/05/24 Addendum entered by Dwayne Hernandez RPh 02/11/24 09:43: Reviewed by [facility] Original Note: Pharmacy Consult ? Medication Reconciliation Pharmacy has completed the medication reconciliation. Spoke to patent to confirm med list. Patient was a little confused on what she takes. Patient was just discharged from [facility] [place] [place] 10/09/23 patent states there was no changes since discharge. Utilized discharge packet to confirm med list.
[2024-02-11 12:57] VITALS: BP 123/54; PULSE 66; RESP 18; TEMP 37.1; O2SAT 100
--- NOTE | 2024-02-11 13:32 | MHC.CM.PN ---
PT LIVES IN [facility] SHE HAS SERVICES [employer],CLEANING AND LAUNDRY PT GOES TO DIALYSIS , [facility] SISTER IS HER HCP GABRIEL MANCIA [phone] PT HAS OWN RIDE HOME
--- NOTE | 2024-02-11 13:42 | MHC.CM.PN ---
PT LIVES WITH GRANDDAUGHTER SHE HAD NO SERVIES PRIOR TO HOSPITAL STAY,PT HAS OWN RIDE HOME DC PLAN HOME W/FAMILY
--- NOTE | 2024-02-11 15:41 | P.PNIM_ITS ---
Subjective Subjective Date of Service: 02/11/24 Interval History: No acute issues overnight. Pain control acceptable Review of Systems Denies chest pain Denies shortness of breath Denies nausea vomiting diarrhea Admits to diffuse abdominal pain that is well controlled with current therapies. Denies fever chills Physical Exam 2 Vital Signs: Vital Signs: Last Vital Signs Temp 98.8 F 02/11/24 12:57 Pulse 66 02/11/24 12:57 Resp 18 02/11/24 12:57 BP 123/54 L 02/11/24 12:57 Pulse Ox 100 02/11/24 12:57 O2 Del Method Room Air 02/11/24 12:57 BMI result Body Mass Index 24.2 Const: Other: Awake alert no acute distress Resp: Other: Clear to auscultation bilaterally no rales rhonchi or wheezes Cardio: Other: No S4; positive S1-S2; no S3 murmurs rubs or gallops GI: Other: Soft nontender nondistended normoactive bowel sounds Extrem: Other: No edema bilaterally Objective Data Active Medications Acetaminophen (Acetaminophen 325 Mg Tablet) 650 mg PO Q6H PRN PRN Reason: Pain, Mild (Pain Scale 1-3), fever or headache Calcium Carbonate (Calcium Carbonate 750 Mg Tab.Chew) 750 mg PO Q4H PRN PRN Reason: Heartburn Ceftriaxone Sodium (Ceftriaxone Sodium 1 Gm Vial) 1 gm IVPUSH Q24H [facility] Last Admin: 02/11/24 01:02 Dose: 1 gm Documented By: ANNE Heparin Sodium (Porcine) (Heparin Sodium,Porcine 5,000 Unit/Ml Vial) 5,000 unit SUBCUT Q12H [facility] Last Admin: 02/11/24 11:42 Dose: 5,000 unit Documented By: RONY Metronidazole (Flagyl) 500 mg in 100 mls @ 100 mls/hr IV Q8H [facility] Last Admin: 02/11/24 10:42 Dose: 100 mls/hr Documented By: DOTTIE Magnesium Hydroxide (Milk Of Magnesia 30 Ml Oral.Susp) 30 ml PO DAILY PRN PRN Reason: Constipation Melatonin (Melatonin 3 Mg Tablet) 6 mg PO BEDTIME PRN PRN Reason: Insomnia Ondansetron HCl (Ondansetron Hcl 4 Mg/2 Ml Vial) 4 mg IVPUSH Q8H PRN PRN Reason: Nausea and Vomiting Sodium Chloride (0.9 % Sodium Chloride Flush 3 Ml Syringe) 3 ml IVFLUSH QSHIFT [facility] Last Admin: 02/11/24 08:46 Dose: 3 ml Documented By: DILAN Labs 02/11/24 04:40 02/11/24 04:40 Labs: Laboratory Results - last 24 hr 02/10/24 02/10/24 02/10/24 18:22 18:28 22:15 MCV 94.7 MCH 29.9 MCHC 31.6 RDW 14.4 Plt Count 214 MPV 10.3 Immature Gran % (Auto) 0.4 Neut % (Auto) 85.7 H Lymph % (Auto) 7.8 L [place] % (Auto) 5.0 Eos % (Auto) 0.8 Baso % (Auto) 0.3 Lymph # (Auto) 1.4 [place] # (Auto) 0.9 Eos # (Auto) 0.2 Baso # (Auto) 0.1 Abs Immat Gran (auto) 0.07 H Absolute Neuts (auto) 15.3 H Absolute Nucleated RBC 0.020 H Nucleated RBC % (auto) 0.1 PT 12.1 INR 1.0 VBG pH 7.36 VBG pCO2 55 VBG pO2 32 VBG HCO3 31 H VBG O2 Saturation 45.0 VBG Base Excess 5.0 Anion Gap 11 L Estim Creat Clear Calc 11.1 Estimated GFR 9 Random Glucose 100 Lactic Acid 1.6 Calcium 9.7 Magnesium 2.3 Total Bilirubin 0.4 Direct Bilirubin 0.2 AST 33 H ALT 10 Alkaline Phosphatase 99 Troponin I High Sens 24.4 H C-Reactive Protein 2.76 H B-Natriuretic Peptide 287 H Total Protein 7.0 Albumin 3.2 L Vitamin B12 Folate TSH 68.06 H Free T4 Urine Color Urine Appearance Urine pH Ur Specific [place] Urine Protein Urine Glucose (UA) Urine Ketones Urine Blood Urine Nitrite Ur Leukocyte Esterase Urine RBC Urine WBC Ur Squamous Epith Cells Urine Bacteria Hyaline Casts Ethyl Alcohol 10 Influenza Type A (PCR) NEGATIVE Influenza Type B (PCR) NEGATIVE RSV RNA Qual (PCR) NEGATIVE SARS-CoV-2 RNA (RT-PCR) NEGATIVE 02/10/24 02/11/24 22:55 04:40 MCV 94.8 MCH 29.9 MCHC 31.5 RDW 14.4 Plt Count 199 MPV 11.0 Immature Gran % (Auto) 0.7 H Neut % (Auto) 77.0 H Lymph % (Auto) 11.8 L [place] % (Auto) 7.2 Eos % (Auto) 3.0 Baso % (Auto) 0.3 Lymph # (Auto) 1.8 [place] # (Auto) 1.1 Eos # (Auto) 0.5 H Baso # (Auto) 0.1 Abs Immat Gran (auto) 0.11 H Absolute Neuts (auto) 11.7 H Absolute Nucleated RBC 0.020 H Nucleated RBC % (auto) 0.1 PT INR VBG pH VBG pCO2 VBG pO2 VBG HCO3 VBG O2 Saturation VBG Base Excess Anion Gap 17 Estim Creat Clear Calc 9.2 Estimated GFR 8 Random Glucose 73 Lactic Acid Calcium 9.7 Magnesium Total Bilirubin Direct Bilirubin AST ALT Alkaline Phosphatase Troponin I High Sens C-Reactive Protein B-Natriuretic Peptide Total Protein Albumin Vitamin B12 777 Folate 16.4 TSH Free T4 1.19 Urine Color Brown A Urine Appearance Cloudy Urine pH QNS Ur Specific [place] QNS Urine Protein QNS Urine Glucose (UA) QNS Urine Ketones QNS Urine Blood QNS Urine Nitrite QNS Ur Leukocyte Esterase QNS Urine RBC 3-5 H Urine WBC >50 H Ur Squamous Epith Cells 3-5 Urine Bacteria Trace Hyaline Casts 0-2 Ethyl Alcohol Influenza Type A (PCR) Influenza Type B (PCR) RSV RNA Qual (PCR) SARS-CoV-2 RNA (RT-PCR) Microbiology Microbiology Results: Microbiology 02/10/24 22:55 Urine Culture - Preliminary Urine Catheterized - Straight Catheter Culture too young to evaluate. Assessment and Plan (1) Acute metabolic encephalopathy: Status: Acute (2) Liver transplant recipient: Status: Acute (3) Acute UTI: Status: Acute Plan This is a 73-year-old female with pertinent history of ESRD on dialysis (Friday/Friday/), atrial fibrillation not on anticoagulation, COPD not on home oxygen, gastroesophageal reflux disease, thyroid cancer status post radiation therapy, status post TAVR, coronary artery disease, cirrhosis status post liver transplant, gout, mood disorder, hypothyroidism who was sent to the emergency department for evaluation of confusion. 1.Acute encephalopathy likely secondary to acute UTI -ceftriaxone (1) -adjust pending cultures -mentation improved 2.Acute diverticulitis -ceftriaxone/Flagyl (1) -continue clear liquids; advance as tolerated 3.Hypothyroidism -noncompliant with Synthroid -resume outpatient supplementation 4.ESRD on hemodialysis -appreciate renal input -hemodialysis as ordered -follow renals/divalents 5.Paroxysmal atrial fibrillation -acceptable control on current therapies -adjust as indicated 6.Status post liver transplant -tacrolimus as ordered Heparin Full code Requires ongoing hospitalization for IV antibiotics to treat acute diverticulitis as well as acute UTI pending culture. Specialty consultation as indicated Quality Stroke Does the patient have a stroke diagnosis?: No VTE Prior VTE?: No VTE Risk Level:: Medical - moderate - high VTE Device Contraindication: Treatment Not Indicated VTE Drug Contraindication: N/A - Med Ordered
[2024-02-11 17:48] VITALS: BP 150/76; PULSE 63; RESP 16; TEMP 37.2; O2SAT 100
--- NOTE | 2024-02-11 18:23 | PC.NURSE ---
Pt c/o lower abd pain with radiation to her back. Pain is 10/10. Pt with Tylenol order in place however Pt reports Tylenol is ineffective in her pain relief and that she typically take oxycodone at home. Message sent to Dr. Pandya with above noted information and request for additional pain management order--awaiting reply/new order..
[2024-02-11 20:22] VITALS: BP 164/80; PULSE 66; RESP 18; TEMP 36.9; O2SAT 99
[2024-02-11] MEDS: oxyCODONE HCl Immed Release 5 MG TABLET PO (20:41)
[2024-02-12] MEDS: metroNIDAZOLE/NS 500 MG/100 ML PIGGYBACK 100 MG IV ×3 (02:29→16:53)
[2024-02-12] MEDS: oxyCODONE HCl Immed Release 5 MG TABLET PO ×3 (02:37→12:28)
[2024-02-12 03:19] VITALS: BP 153/70; PULSE 64; RESP 18; TEMP 36.8; O2SAT 98
[2024-02-12 06:53] LABS: MANUAL DIFF FLAG NO
[2024-02-12 07:02] LABS: Basophils Percent Auto 0.2 % (0-2); Eosinophils Absolute Auto 0.2 X10*3/uL (0.0-0.4); Eosinophils Percent Auto 1.7 % (0-4); Hemoglobin 11.9 g/dl (12.0-16.0); Imm Gran Abs Auto 0.12 X10*3/uL (0.00-0.03); Imm Gran Pct Auto 0.9 % (0.0-0.4); Lymphocytes Absolute Auto 1.7 X10*3/uL (1.2-4.9); Lymphocytes Percent Auto 12.1 % (20-40); Mean Corpuscular HGB Conc 32.2 g/dl (31.0-35.0); Mean Corpuscular Hemoglobin 29.8 pg (27.0-33.0); Mean Corpuscular Volume 92.7 fL (80.0-98.0); Mean Platelet Volume 11.3 fL (9.4-12.3); Monocytes Absolute Auto 1.3 X10*3/uL (0.1-1.2); Neutrophils Absolute Auto 10.5 x10*3/uL (2.0-8.3); Neutrophils Percent Auto 76.1 % (45-73); Platelet Count 187 X10*3/uL (160-400); Red Blood Count 3.99 X10*6/uL (4.20-5.50); Red Cell Distribution Width 14.5 % (11.0-16.0); White Blood Count 13.8 X10*3/uL (4.8-10.8)
[2024-02-12 07:26] LABS: Parathyroid Hormone Intact 78.4 pg/mL (8.7-77.1)
[2024-02-12 07:27] LABS: Alanine Aminotransferase < 6 U/L (0-31); Albumin Level 2.8 g/dL (3.5-5.0); Alkaline Phosphatase 92 U/L (39-117); Anion Gap 18 (12-20); Aspartate Amino Transferase 28 U/L (5-31); Bilirubin Total 0.5 mg/dL (0.0-1.0); Blood Urea Nitrogen 36 mg/dL (9-16); Calcium 9.1 mg/dL (8.4-10.2); Carbon Dioxide 21 mmol/L (22-29); Chloride 100 mmol/L (96-108); Creatinine Clr Calc Pharmacy 7.1; Estimated Glomerular Filt Rate 6; Glucose Fasting 76 mg/dL (60-99); Phosphorus 1.7 mg/dL (2.7-4.5); Potassium 5.2 mmol/L (3.3-5.1); Sodium 134 mmol/L (135-145); Total Protein 6.3 g/dL (6.5-8.0)
[2024-02-12 08:00] VITALS: BP 141/66; PULSE 68; RESP 16; TEMP 36.9; O2SAT 95
--- NOTE | 2024-02-12 08:20 | PM.PNNEP ---
Subjective Subjective Date of Service: 02/12/24 Interval history: 73 y/o female with ESRD on HD ([place], [place], Sat). She is a patient of Dr Umanzor. 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 Was sent to ED from outpatient dialysis on 02/09 for reports of confusion and hallucinations. Nephrology consulted for ESRD and HD management she states she has some continued abdominal pain (receiving abx for diverticulitis and UTI) some mild dyspnea no chest pain no pain with urination (voids every few days per pt) denies other concerns/new symptoms 02/09 imaging: head CT unremarkable for acute changes chest CT shows basilar scarring and/or discoid atelectasis abdominal CT suggests mild diverticulitis, bilateral renal atrophy 02/11 H&H 11.6 and 37, creatinine 7.26, BUN 36, potassium mildly elevateda t 5.2, serum bicarb 21, calcium normal, phos low at 1.7 Physical Exam Vital Signs: Vital Signs: Last Vital Signs Temp 98.5 F 02/12/24 08:00 Pulse 68 02/12/24 08:00 Resp 16 02/12/24 08:00 BP 141/66 H 02/12/24 08:00 Pulse Ox 95 02/12/24 08:00 O2 Del Method Room Air 02/12/24 08:00 BMI result Body Mass Index 24.2 Const: General: no acute distress, alert, awake and confusion Orientation/consciousness: oriented to person, oriented to place and confusion Neck: Neck: Yes no JVD Resp: Effort & Inspection: normal respiratory effort and able to speak in complete sentences Auscultation: clear to auscultation bilaterally Cardio: Jugular venous distension: no JVD Rate: regular rate Rhythm: regular rhythm Heart sounds: S1 normal heart sound present, S2 normal heart sound present and Murmur heart sound present GI: Palpation (GI): Soft to palpation and Tenderness to palpation present (GI) (reports tender to palpation of lower abdomen) : General: Yes no CVA tenderness Back/Spine/Pelvis: Back: no CVA tenderness Skin: Lesions: no lesions Rashes: no rashes Neuro: General: oriented to person, oriented to place and confusion Extrem: General: No edema and No pedal edema Objective Data Labs 02/12/24 06:04 02/12/24 06:04 Labs: Laboratory Results - last 24 hr 02/12/24 06:04 WBC 13.8 H RBC 3.99 L Hgb 11.9 L Hct 37.0 MCV 92.7 MCH 29.8 MCHC 32.2 RDW 14.5 Plt Count 187 MPV 11.3 Immature Gran % (Auto) 0.9 H Neut % (Auto) 76.1 H Lymph % (Auto) 12.1 L [place] % (Auto) 9.0 Eos % (Auto) 1.7 Baso % (Auto) 0.2 Lymph # (Auto) 1.7 [place] # (Auto) 1.3 H Eos # (Auto) 0.2 Baso # (Auto) 0.0 Abs Immat Gran (auto) 0.12 H Absolute Neuts (auto) 10.5 H Absolute Nucleated RBC 0.000 Nucleated RBC % (auto) 0.0 Sodium 134 L Potassium 5.2 H Chloride 100 Carbon Dioxide 21 L Anion Gap 18 BUN 36 H Creatinine 7.26 H* Estim Creat Clear Calc 7.1 Estimated GFR 6 Fasting Glucose 76 Calcium 9.1 D Phosphorus 1.7 L Total Bilirubin 0.5 AST 28 ALT < 6 Alkaline Phosphatase 92 Total Protein 6.3 L Albumin 2.8 L PTH Intact 78.4 H Microbiology Microbiology Results: Microbiology 02/10/24 22:55 Urine Catheterized - Straight Catheter Urine Culture - Final 02/10/24 22:27 Blood - Venous Blood Culture - Preliminary No growth after 24 hours. 02/10/24 22:15 Blood - Venous Blood Culture - Preliminary No growth after 24 hours. Procedures Date of Service Date of Service: 02/12/24 Assessment & Plan Assessment and plan (1) ESRD (end stage renal disease) on dialysis: Status: Chronic (2) Immunosuppressed status: Status: Acute Plan 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 ~15 years ago) on HD here with weakness, hallucinations with immunosuppressed status continue treatment of diverticulitis, UTI as planned Orders in for HD , , Sat schedule as she is outpatient - scheduled for HD today clinically euvolemic at this time 02/11 H&H 11.9 and 37, no indication for procrit at this time hyperkalemia at 5.2, mildly metabolic acidosis calcium within normal limits phosphorous low at 1.7- will contnue to monitor, no phos restriction in diet has left upper extremity AV fistula with +bruit, +thrill oliguric at baseline (small amount every few days per pt) Will continue to follow Discussed with Dr Dennison Time Spent With Patient Time: Total time managing care of this patient today ____ minutes. Progress Note: Quality Stroke Does the patient have a stroke diagnosis?: No
[2024-02-12] MEDS: 0.9 % Sodium Chloride Flush 3 ML SYRINGE IVFLUSH ×3 (08:33→23:52)
[2024-02-12 14:20] VITALS: BP 159/72; PULSE 69; RESP 14; TEMP 36.6; O2SAT 97
--- NOTE | 2024-02-12 14:54 | P.CDIM_ITS ---
PROVIDER RESPONSE TEXT: To clarify, the appropriate diagnosis supported by the clinical indicators: Toxic metabolic QUERY TEXT: PHYSICIAN'S DOCUMENTATION REQUEST Date of Query: 02/12/2024 06:23 AM EST Patient Name: Guadalupe Kay Admit Date: 02/11/2024 Dear Steve Pandya DO, A review of the medical record indicates additional documentation may be needed. Please review below and update the documentation accordingly. Clinical Indicators: Progress note Assessment and Plan list 02/10: Acute metabolic encephalopathy Plan: Acute encephalopathy likely secondary to acute UTI. Based on the above, please further specify, in the Progress Notes, the known or suspected type of enc ephalopathy within the body of the Plan: Metabolic Toxic Toxic metabolic Other (explain) Clinically unable to determine (explain) Thank you, Cande Covarrubias, CCS, CDIS Use of terms such as suspected, likely, concern for, or probable (associated with a specific diagnosi s that is being evaluated, monitored, or treated as if it exists) are acceptable and can be coded in the inpatient se tting, when documented at the time of discharge. Please use your independent medical judgment in providing your response. THIS QUERY IS PART OF THE PERMANENT MEDICAL RECORD
--- NOTE | 2024-02-12 14:54 | P.CDIM_ITS ---
PROVIDER RESPONSE TEXT: To clarify, the appropriate diagnosis supported by the clinical indicators: Other (explain): Secondary to missed dialysis QUERY TEXT: PHYSICIAN'S DOCUMENTATION REQUEST Date of Query: 02/12/2024 09:36 AM EST Patient Name: Guadalupe Kay Admit Date: 02/11/2024 Dear Steve Pandya DO, A review of the medical record indicates additional documentation may be needed. Please review below and update the documentation accordingly. Clinical Indicators: H&P 02/09 - Patient was recently admitted to the hospital for acute encephalopathy due to uremia and acute on chronic congestive heart failure in the setting of missed dialysis. BNP 287 H Please provide further specificity regarding any further specifics to the noted CHF: Systolic Please specify if Acute, Chronic, or Acute on chronic, or Unable to determine Diastolic Please specify if Acute, Chronic, or Acute on chronic, or Unable to determine Combined Systolic/Diastolic Please specify if Acute, Chronic, or Acute on chronic, or Unable to determine Other (explain) Clinically unable to determine (explain) Thank you, Cande Covarrubias, CCS, CDIS Use of terms such as suspected, likely, concern for, or probable (associated with a specific diagnosi s that is being evaluated, monitored, or treated as if it exists) are acceptable and can be coded in the inpatient se tting, when documented at the time of discharge. Please use your independent medical judgment in providing your response. THIS QUERY IS PART OF THE PERMANENT MEDICAL RECORD
--- NOTE | 2024-02-12 14:54 | P.PNIM_ITS ---
Subjective Subjective Date of Service: 02/12/24 Interval History: No acute issues overnight. Hemodialysis without issue. Staff notes some mild hallucinations Review of Systems Denies chest pain Denies shortness of breath Denies nausea vomiting diarrhea Admits to diffuse abdominal pain that is well controlled with current therapies. Denies fever chills Physical Exam 2 Vital Signs: Vital Signs: Last Vital Signs Temp 97.9 F 02/12/24 14:20 Pulse 69 02/12/24 14:20 Resp 14 02/12/24 14:20 BP 159/72 H 02/12/24 14:20 Pulse Ox 97 02/12/24 14:20 O2 Del Method Room Air 02/12/24 14:20 BMI result Body Mass Index 24.2 Const: Other: Awake alert no acute distress Resp: Other: Clear to auscultation bilaterally no rales rhonchi or wheezes Cardio: Other: No S4; positive S1-S2; no S3 murmurs rubs or gallops GI: Other: Soft nontender nondistended normoactive bowel sounds Extrem: Other: No edema bilaterally Objective Data Active Medications Acetaminophen (Acetaminophen 325 Mg Tablet) 650 mg PO Q6H PRN PRN Reason: Pain, Mild (Pain Scale 1-3), fever or headache Calcium Carbonate (Calcium Carbonate 750 Mg Tab.Chew) 750 mg PO Q4H PRN PRN Reason: Heartburn Ceftriaxone Sodium (Ceftriaxone Sodium 1 Gm Vial) 1 gm IVPUSH Q24H [facility] Last Admin: 02/11/24 23:42 Dose: 1 gm Documented By: BLANCA Heparin Sodium (Porcine) (Heparin Sodium,Porcine 5,000 Unit/Ml Vial) 5,000 unit SUBCUT Q12H [facility] Last Admin: 02/12/24 13:25 Dose: Not Given Documented By: BRUNO Non-Admin Reason: Patient Refused Metronidazole (Flagyl) 500 mg in 100 mls @ 100 mls/hr IV Q8H [facility] Last Infusion: 02/12/24 09:38 Dose: Infused Documented By: BRUNO Magnesium Hydroxide (Milk Of Magnesia 30 Ml Oral.Susp) 30 ml PO DAILY PRN PRN Reason: Constipation Melatonin (Melatonin 3 Mg Tablet) 6 mg PO BEDTIME PRN PRN Reason: Insomnia Ondansetron HCl (Ondansetron Hcl 4 Mg/2 Ml Vial) 4 mg IVPUSH Q8H PRN PRN Reason: Nausea and Vomiting Oxycodone HCl (Oxycodone Hcl Immed Release 5 Mg Tablet) 10 mg PO Q4H PRN PRN Reason: Pain, Moderate(Pain Scale 4-6) Sodium Chloride (0.9 % Sodium Chloride Flush 3 Ml Syringe) 3 ml IVFLUSH QSHIFT [facility] Last Admin: 02/12/24 08:33 Dose: 3 ml Documented By: BRUNO Labs 02/12/24 06:04 02/12/24 06:04 Labs: Laboratory Results - last 24 hr 02/12/24 06:04 MCV 92.7 MCH 29.8 MCHC 32.2 RDW 14.5 Plt Count 187 MPV 11.3 Immature Gran % (Auto) 0.9 H Neut % (Auto) 76.1 H Lymph % (Auto) 12.1 L [place] % (Auto) 9.0 Eos % (Auto) 1.7 Baso % (Auto) 0.2 Lymph # (Auto) 1.7 [place] # (Auto) 1.3 H Eos # (Auto) 0.2 Baso # (Auto) 0.0 Abs Immat Gran (auto) 0.12 H Absolute Neuts (auto) 10.5 H Absolute Nucleated RBC 0.000 Nucleated RBC % (auto) 0.0 Anion Gap 18 Estim Creat Clear Calc 7.1 Estimated GFR 6 Fasting Glucose 76 Calcium 9.1 D Phosphorus 1.7 L Total Bilirubin 0.5 AST 28 ALT < 6 Alkaline Phosphatase 92 Total Protein 6.3 L Albumin 2.8 L PTH Intact 78.4 H Microbiology Microbiology Results: Microbiology 02/10/24 22:55 Urine Culture - Final Urine Catheterized - Straight Catheter 02/10/24 22:27 Blood Culture - Preliminary Blood - Venous No growth after 24 hours. 02/10/24 22:15 Blood Culture - Preliminary Blood - Venous No growth after 24 hours. Assessment and Plan (1) Urinary tract infection: Status: Acute (2) Acute metabolic encephalopathy: Status: Acute (3) Acute UTI: Status: Acute Plan This is a 73-year-old female with pertinent history of ESRD on dialysis (Friday/Friday/), atrial fibrillation not on anticoagulation, COPD not on home oxygen, gastroesophageal reflux disease, thyroid cancer status post radiation therapy, status post TAVR, coronary artery disease, cirrhosis status post liver transplant, gout, mood disorder, hypothyroidism who was sent to the emergency department for evaluation of confusion. 1.Acute encephalopathy likely secondary to acute UTI -ceftriaxone (2) -mixed valeriy; we will continue ceftriaxone -mentation improved... But now with some auditory hallucinations. We will consult psych 2.Acute diverticulitis -ceftriaxone/Flagyl (2) -continue clear liquids; advance as tolerated 3.Hypothyroidism -noncompliant with Synthroid -resume outpatient supplementation 4.ESRD on hemodialysis -appreciate renal input -hemodialysis as ordered -follow renals/divalents 5.Paroxysmal atrial fibrillation -acceptable control on current therapies -adjust as indicated 6.Status post liver transplant -tacrolimus as ordered Heparin Full code Requires ongoing hospitalization for IV antibiotics to treat acute diverticulitis as well as acute UTI pending culture. Specialty consultation as indicated Quality Stroke Does the patient have a stroke diagnosis?: No VTE Prior VTE?: No VTE Risk Level:: Medical - moderate - high VTE Device Contraindication: Treatment Not Indicated VTE Drug Contraindication: N/A - Med Ordered
[2024-02-12 15:40] VITALS: BP 147/65; PULSE 73; RESP 16; TEMP 36.8; O2SAT 97
[2024-02-12] MEDS: oxyCODONE HCl Immed Release 5 MG TABLET 10 MG PO ×2 (16:58→22:21)
[2024-02-12 19:35] VITALS: BP 105/58; PULSE 100; RESP 16; TEMP 36.7; O2SAT 95
[2024-02-12] MEDS: cefTRIAXone sodium 1 GM VIAL IVPUSH (23:52)
[2024-02-13 00:39] LABS: Triiodothyronine T3 Free 2.1 pg/mL (2.3-4.2)
[2024-02-13] MEDS: metroNIDAZOLE/NS 500 MG/100 ML PIGGYBACK 100 MG IV ×3 (02:01→17:31)
[2024-02-13] MEDS: ondansetron HCL 4 MG/2 ML VIAL IVPUSH ×3 (02:09→19:21)
[2024-02-13 03:31] VITALS: BP 137/65; PULSE 60; RESP 16; TEMP 36.1; O2SAT 95
[2024-02-13] MEDS: oxyCODONE HCl Immed Release 5 MG TABLET 10 MG PO ×4 (03:36→19:25)
[2024-02-13 06:27] LABS: MANUAL DIFF FLAG NO
[2024-02-13 06:35] LABS: Basophils Percent Auto 0.4 % (0-2); Eosinophils Absolute Auto 0.3 X10*3/uL (0.0-0.4); Eosinophils Percent Auto 2.8 % (0-4); Hematocrit 38.3 % (37.0-47.0); Hemoglobin 12.1 g/dl (12.0-16.0); Imm Gran Abs Auto 0.09 X10*3/uL (0.00-0.03); Lymphocytes Absolute Auto 1.7 X10*3/uL (1.2-4.9); Lymphocytes Percent Auto 18.4 % (20-40); Mean Corpuscular HGB Conc 31.6 g/dl (31.0-35.0); Mean Corpuscular Hemoglobin 29.5 pg (27.0-33.0); Mean Corpuscular Volume 93.4 fL (80.0-98.0); Mean Platelet Volume 11.4 fL (9.4-12.3); Monocytes Absolute Auto 1.2 X10*3/uL (0.1-1.2); Monocytes Percent Auto 13.1 % (2-11); Neutrophils Absolute Auto 5.9 x10*3/uL (2.0-8.3); Neutrophils Percent Auto 64.3 % (45-73); Platelet Count 176 X10*3/uL (160-400); Red Cell Distribution Width 14.5 % (11.0-16.0); White Blood Count 9.2 X10*3/uL (4.8-10.8)
[2024-02-13 06:58] LABS: Alanine Aminotransferase < 6 U/L (0-31); Albumin Level 2.9 g/dL (3.5-5.0); Alkaline Phosphatase 92 U/L (39-117); Anion Gap 16 (12-20); Aspartate Amino Transferase 21 U/L (5-31); Bilirubin Total 0.4 mg/dL (0.0-1.0); Blood Urea Nitrogen 18 mg/dL (9-16); Carbon Dioxide 22 mmol/L (22-29); Chloride 100 mmol/L (96-108); Creatinine Clr Calc Pharmacy 10.4; Estimated Glomerular Filt Rate 9; Glucose Fasting 90 mg/dL (60-99); Potassium 4.2 mmol/L (3.3-5.1); Sodium 134 mmol/L (135-145); Total Protein 6.6 g/dL (6.5-8.0)
[2024-02-13] MEDS: 0.9 % Sodium Chloride Flush 3 ML SYRINGE IVFLUSH ×3 (07:14→22:25)
[2024-02-13 07:37] VITALS: BP 146/69; PULSE 56; RESP 18; TEMP 36; O2SAT 96
--- NOTE | 2024-02-13 08:15 | P.PNNP_ITS ---
Subjective Subjective Date of Service: 02/13/24 Interval history: 73 y/o female with ESRD on HD (lucho, Th, Sat). She is a patient of Dr Umanzor. 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 Was sent to ED from outpatient dialysis on 02/09 for reports of confusion and hallucinations. Nephrology consulted for ESRD and HD management she states she has some continued abdominal pain (receiving abx for diverticulitis and UTI) some mild dyspnea no chest pain no pain with urination (voids every few days per pt) denies other concerns/new symptoms 02/09 imaging: head CT unremarkable for acute changes chest CT shows basilar scarring and/or discoid atelectasis abdominal CT suggests mild diverticulitis, bilateral renal atrophy 02/11 H&H 11.6 and 37, creatinine 7.26, BUN 36, potassium mildly elevateda t 5.2, serum bicarb 21, calcium normal, phos low at 1.7 Physical Exam 2 Vital Signs: Vital Signs: Last Vital Signs Temp 96.8 F 02/13/24 07:37 Pulse 56 02/13/24 07:37 Resp 18 02/13/24 07:37 BP 146/69 H 02/13/24 07:37 Pulse Ox 96 02/13/24 07:37 O2 Del Method Room Air 02/13/24 07:37 BMI result Body Mass Index 24.2 Const: General: no acute distress, alert, awake and confusion O rientation/consciousness: oriented to person, oriented to place and confusion Neck: Neck: Yes no JVD Resp: Effort & Inspection: normal respiratory effort and able to speak in complete sentences Auscultation: clear to auscultation bilaterally Cardio: Jugular venous distension: no JVD Rate: regular rate Rhythm: r egular rhythm Heart sounds: S1 normal heart sound present, S2 normal heart sound present and Murmur heart sound present GI: Palpation (GI): Soft to palpation and Tenderness to palpation present (GI) (reports tender to palpation of lower abdomen) : General: Yes no CVA tenderness Back/Spine/Pelvis: Back: no CVA tenderness Skin: Lesions: no lesions Rashes: no rashes Neuro: General: oriented to person, oriented to place and confusion Extrem: General: No edema and No pedal edema Objective Data Labs 02/13/24 05:45 02/13/24 05:45 Labs: Laboratory Results - last 24 hr 02/11/24 02/13/24 04:40 05:45 WBC 9.2 RBC 4.10 L Hgb 12.1 Hct 38.3 MCV 93.4 MCH 29.5 MCHC 31.6 RDW 14.5 Plt Count 176 MPV 11.4 Immature Gran % (Auto) 1.0 H Neut % (Auto) 64.3 Lymph % (Auto) 18.4 L [place] % (Auto) 13.1 H Eos % (Auto) 2.8 Baso % (Auto) 0.4 Lymph # (Auto) 1.7 [place] # (Auto) 1.2 Eos # (Auto) 0.3 Baso # (Auto) 0.0 Abs Immat Gran (auto) 0.09 H Absolute Neuts (auto) 5.9 Absolute Nucleated RBC 0.000 Nucleated RBC % (auto) 0.0 Sodium 134 L Potassium 4.2 Chloride 100 Carbon Dioxide 22 Anion Gap 16 BUN 18 H Creatinine 4.93 H* Estim Creat Clear Calc 10.4 Estimated GFR 9 Fasting Glucose 90 Calcium 9.0 Total Bilirubin 0.4 AST 21 ALT < 6 Alkaline Phosphatase 92 Total Protein 6.6 Albumin 2.9 L Free T3 2.1 L Microbiology Microbiology Results: Microbiology 02/10/24 22:27 Blood - Venous Blood Culture - Preliminary No growth after 48 hours. 02/10/24 22:15 Blood - Venous Blood Culture - Preliminary No growth after 48 hours. 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 ~15 years ago) on HD here with weakness, hallucinations with immunosuppressed status continue treatment of diverticulitis, UTI as planned Orders in for HD , , Fri schedule as she is outpatient clinically euvolemic at this time 02/12 H&H 12.1 and 38, no indication for procrit at this time potassium normal, not metabolically acidotic at this time calcium within normal limits phosphorous low at 1.7- will continue to monitor, no phos restriction in diet has left upper extremity AV fistula with +bruit, +thrill oliguric at baseline (small amount every few days per pt) Will continue to follow Discussed with Dr Dennison Time Spent With Patient Time: Total time managing care of this patient today ____ minutes. Progress Note: Quality Stroke Does the patient have a stroke diagnosis?: No
--- NOTE | 2024-02-13 12:29 | MHC.CM.PN ---
EMR REVIEWED AND PER MD ROUNDS, PT IS NOT MEDICALLY CLEARED FOR DC (PSYCH CONSULT PENDING, CONFUSION, HALLUCINATIONS) CM WILL CONTINUE TO FOLLOW FOR ANY CHANGE TO DC PLAN/NEEDS.
--- NOTE | 2024-02-13 14:42 | P.PNIM_ITS ---
Subjective Subjective Date of Service: 02/13/24 Interval History: Remains stable however intermittent confusion. Very depressed Review of Systems Denies chest pain Denies shortness of breath Denies nausea vomiting diarrhea Admits to diffuse abdominal pain that is well controlled with current therapies. Denies fever chills Physical Exam 2 Vital Signs: Vital Signs: Last Vital Signs Temp 96.8 F 02/13/24 07:37 Pulse 56 02/13/24 07:37 Resp 18 02/13/24 07:37 BP 146/69 H 02/13/24 07:37 Pulse Ox 96 02/13/24 07:37 O2 Del Method Room Air 02/13/24 07:37 BMI result Body Mass Index 24.2 Const: Other: Awake alert no acute distress Resp: Other: Clear to auscultation bilaterally no rales rhonchi or wheezes Cardio: Other: No S4; positive S1-S2; no S3 murmurs rubs or gallops GI: Other: Soft nontender nondistended normoactive bowel sounds Extrem: Other: No edema bilaterally Objective Data Active Medications Acetaminophen (Acetaminophen 325 Mg Tablet) 650 mg PO Q6H PRN PRN Reason: Pain, Mild (Pain Scale 1-3), fever or headache Calcium Carbonate (Calcium Carbonate 750 Mg Tab.Chew) 750 mg PO Q4H PRN PRN Reason: Heartburn Ceftriaxone Sodium (Ceftriaxone Sodium 1 Gm Vial) 1 gm IVPUSH Q24H [facility] Last Admin: 02/12/24 23:52 Dose: 1 gm Documented By: BLANCA Heparin Sodium (Porcine) (Heparin Sodium,Porcine 5,000 Unit/Ml Vial) 5,000 unit SUBCUT Q12H [facility] Last Admin: 02/13/24 11:04 Dose: Not Given Documented By: JAQUELIN Non-Admin Reason: Patient Refused Metronidazole (Flagyl) 500 mg in 100 mls @ 100 mls/hr IV Q8H [facility] Last Infusion: 02/13/24 10:55 Dose: Infused Documented By: BRUNO Magnesium Hydroxide (Milk Of Magnesia 30 Ml Oral.Susp) 30 ml PO DAILY PRN PRN Reason: Constipation Melatonin (Melatonin 3 Mg Tablet) 6 mg PO BEDTIME PRN PRN Reason: Insomnia Ondansetron HCl (Ondansetron Hcl 4 Mg/2 Ml Vial) 4 mg IVPUSH Q8H PRN PRN Reason: Nausea and Vomiting Last Admin: 02/13/24 11:04 Dose: 4 mg Documented By: JAQUELIN Oxycodone HCl (Oxycodone Hcl Immed Release 5 Mg Tablet) 10 mg PO Q4H PRN PRN Reason: Pain, Moderate(Pain Scale 4-6) Last Admin: 02/13/24 11:04 Dose: 10 mg Documented By: JAQUELIN Sodium Chloride (0.9 % Sodium Chloride Flush 3 Ml Syringe) 3 ml IVFLUSH QSHIFT [facility] Last Admin: 02/13/24 07:14 Dose: 3 ml Documented By: JAQUELIN Labs 02/13/24 05:45 02/13/24 05:45 Labs: Laboratory Results - last 24 hr 02/11/24 02/13/24 04:40 05:45 MCV 93.4 MCH 29.5 MCHC 31.6 RDW 14.5 Plt Count 176 MPV 11.4 Immature Gran % (Auto) 1.0 H Neut % (Auto) 64.3 Lymph % (Auto) 18.4 L [place] % (Auto) 13.1 H Eos % (Auto) 2.8 Baso % (Auto) 0.4 Lymph # (Auto) 1.7 [place] # (Auto) 1.2 Eos # (Auto) 0.3 Baso # (Auto) 0.0 Abs Immat Gran (auto) 0.09 H Absolute Neuts (auto) 5.9 Absolute Nucleated RBC 0.000 Nucleated RBC % (auto) 0.0 Anion Gap 16 Estim Creat Clear Calc 10.4 Estimated GFR 9 Fasting Glucose 90 Calcium 9.0 Total Bilirubin 0.4 AST 21 ALT < 6 Alkaline Phosphatase 92 Total Protein 6.6 Albumin 2.9 L Free T3 2.1 L Microbiology Microbiology Results: Microbiology 02/10/24 22:27 Blood Culture - Preliminary Blood - Venous No growth after 48 hours. 02/10/24 22:15 Blood Culture - Preliminary Blood - Venous No growth after 48 hours. 02/10/24 22:55 Urine Culture - Final Urine Catheterized - Straight Catheter Assessment and Plan (1) Acute metabolic encephalopathy: Status: Acute (2) Urinary tract infection: Status: Acute Plan This is a 73-year-old female with pertinent history of ESRD on dialysis (Friday/Friday/), atrial fibrillation not on anticoagulation, COPD not on home oxygen, gastroesophageal reflux disease, thyroid cancer status post radiation therapy, status post TAVR, coronary artery disease, cirrhosis status post liver transplant, gout, mood disorder, hypothyroidism who was sent to the emergency department for evaluation of confusion. 1.Acute encephalopathy likely secondary to acute UTI -ceftriaxone (3) -mixed valeriy; we will continue ceftriaxone -mentation improved... But now with some auditory hallucinations. We will consult psych -follow clinically in a.m. to assess response to therapy 2.Acute diverticulitis -ceftriaxone/Flagyl (3) -continue clear liquids; advance as tolerated 3.Hypothyroidism -noncompliant with Synthroid -resume outpatient supplementation 4.ESRD on hemodialysis -appreciate renal input -hemodialysis as ordered -follow renals/divalents 5.Paroxysmal atrial fibrillation -acceptable control on current therapies -adjust as indicated 6.Status post liver transplant -tacrolimus as ordered Heparin Full code Requires ongoing hospitalization for IV antibiotics to treat acute diverticulitis as well as acute UTI pending culture. Specialty consultation as indicated Quality Stroke Does the patient have a stroke diagnosis?: No VTE Prior VTE?: No VTE Risk Level:: Medical - moderate - high VTE Device Contraindication: Treatment Not Indicated VTE Drug Contraindication: N/A - Med Ordered
[2024-02-13 15:39] VITALS: BP 144/79; PULSE 78; RESP 16; TEMP 36.7; O2SAT 96
--- NOTE | 2024-02-13 16:55 | PM.PSYCN ---
History of Present Illness Date of Service: 02/13/2024 Chief Complaint: AMS Reason for Consult: psychosis Requesting physician: Steve Pandya Discussed with referring provider: Yes Sources of Information: patient interviewed, chart reviewed and crisis/core team assessment reviewed HPI Narrative: Ms. Kay is a 73 year-old woman who was [place] [facility] due to increase confusion. She was recently admitted to medical floor for encephalopathy due to uremia. She has ESRD on dialysis. There has been concern in terms of psychosis. Psychiatry asked to assessed psychosis. Pt seen in her room. She presents as pleasant. She reports she was confused and was sent here. She reports feeling better. She is not sure how she got here (note that she was sent from doctor's office). She reports she lives alone and although she reports some forgetfulness thinks she is able to care for herself. She is oriented to place, month, year and situation. Note date. In terms of hallucinations, pt reports she had in the past seen something that later realized it was not there. She states she does not remember when. She denies current VH/AH. She does not appear internally preoccupied. [facility] Medical History (Updated 02/13/24 @ 00:03 by Background Daemon) Hallucinations, visual ESRD (end stage renal disease) on dialysis Congestive heart failure Patient on waiting list for kidney transplant Gout History of transcatheter aortic valve replacement (TAVR) History of blood transfusion GERD (gastroesophageal reflux disease) Anxiety and depression AV fistula Hemodialysis patient COVID-19 vaccine series completed Murmur Hyperkalemia Left inguinal hernia DJD (degenerative joint disease) of thoracic spine Neuropathy End-stage renal disease (ESRD) COPD (chronic obstructive pulmonary disease) Coronary artery disease Bronchitis Asthma Arthritis Anemia Cirrhosis Surgical History (Updated 02/13/24 @ 00:03 by Background Daemon) Hx of colonoscopy History of liver transplant History of surgery on arm Diagnostics Vital Signs (24Hr): Vital Signs - 24 hr 02/12/24 19:35 02/13/24 03:31 02/13/24 07:37 Temperature 98.1 F 97.0 F 96.8 F Pulse Rate 100 60 56 Respiratory Rate 16 16 18 Blood Pressure 105/58 L 137/65 146/69 H Pulse Oximetry 95 95 96 Oxygen Delivery Method Room Air Room Air Room Air 02/13/24 15:39 Temperature 98.0 F Pulse Rate 78 Respiratory Rate 16 Blood Pressure 144/79 H Pulse Oximetry 96 Oxygen Delivery Method Room Air BMI result Body Mass Index 24.2 Labs 02/15/24 05:55 02/15/24 05:55 Labs: Laboratory Results - last 48 hr 02/11/24 02/12/24 02/13/24 04:40 06:04 05:45 WBC 13.8 H 9.2 RBC 3.99 L 4.10 L Hgb 11.9 L 12.1 Hct 37.0 38.3 MCV 92.7 93.4 MCH 29.8 29.5 MCHC 32.2 31.6 RDW 14.5 14.5 Plt Count 187 176 MPV 11.3 11.4 Immature Gran % (Auto) 0.9 H 1.0 H Neut % (Auto) 76.1 H 64.3 Lymph % (Auto) 12.[address] [place] % (Auto) 9.0 13.1 H Eos % (Auto) 1.7 2.8 Baso % (Auto) 0.2 0.4 Lymph # (Auto) 1.[address] [place] # (Auto) 1.3 H 1.2 Eos # (Auto) 0.2 0.3 Baso # (Auto) 0.0 0.0 Abs Immat Gran (auto) 0.12 H 0.09 H Absolute Neuts (auto) 10.5 H 5.9 Absolute Nucleated RBC 0.000 0.000 Nucleated RBC % (auto) 0.0 0.0 Sodium 134 L 134 L Potassium 5.2 H 4.2 Chloride 100 100 Carbon Dioxide 21 L 22 Anion Gap 18 16 BUN 36 H 18 H Creatinine 7.26 H* 4.93 H* Estim Creat Clear Calc 7.1 10.4 Estimated GFR 6 9 Fasting Glucose 76 90 Calcium 9.1 D 9.0 Phosphorus 1.7 L Total Bilirubin 0.5 0.4 AST 28 21 ALT < 6 < 6 Alkaline Phosphatase 92 92 Total Protein 6.3 L 6.6 Albumin 2.8 L 2.9 L Free T3 2.1 L PTH Intact 78.4 H Imaging Radiology Impressions: ITS Impressions Head CT 02/10/24 17:36 IMPRESSION: Chronic changes noted but no evidence for acute intracranial pathology. Electronically signed by: Von Mendez MD 02/10/2024 06:03 PM [facility] Chest X-Ray 02/10/24 17:45 IMPRESSION: Minimal bibasilar opacities unchanged. Nonspecific. Could reflect atelectasis or persistent infiltrate/consolidation. Electronically signed by: Quang Ng MD 02/10/2024 06:03 PM EST RP Chest CT 02/10/24 20:13 IMPRESSION: Bilateral lower lung opacities compatible with chronic scarring and/or discoid atelectasis. Chronic findings as above Fleischner guidelines were followed. Electronically signed by: Quang Ng MD 02/10/2024 10:06 PM EST RP Abdomen/Pelvis CT 02/10/24 23:30 IMPRESSION: *Borderline mild concentric mural thickening of the distal sigmoid colon. Findings may represent mild diverticulitis. Moderate diverticulosis is present elsewhere within the sigmoid colon. More prominent sigmoid colon mural thickening was present on the comparison study of 06/12/2023. No free intraperitoneal fluid or gas collections. No focal inflammatory changes of the sigmoid mesentery. Mural thickening of the sigmoid colon could also represent neoplasm. However, a discrete tumor of the sigmoid colon is not identified. Consider further evaluation with sigmoidoscopy as clinically indicated. *Chronic retroperitoneal lymphadenopathy. Multiple enlarged periaortic and left common iliac lymph nodes are present. Similar findings have been present on multiple comparison studies dating back to at least 12/29/2019. *Status post cholecystectomy. *Marked bilateral renal atrophy. Electronically signed by: Markos Bazan MD 02/11/2024 12:32 AM EST RP Mental Status Exam Mental Status Exam Narrative: Appearance: wearing hospital gown, appears malnourished, in NAD Behavior: cooperative Psychomotor: no agitation or retardation noted Speech: clear, normal rate/rhythm/volume, spontaneous TP: mostly linear TC: wanting to go home soon Mood: okay Affect: congruent. SI: denies HI: denies VH/AH: not at the moment but suspect between periods of encephalophathy secondary to uremia, possibly fluctuating level of hallucinations. Delusions: none Insight/judgment: fair x 2. memory/cog: alert, oriented x 3. may benefit from MOCA and ACL. I do suspect that although pt presents with fairly intact orientation that there may be underlying cognitive impairments but unclear to what extend. Medications Medications Current Medications Acetaminophen (Acetaminophen 325 Mg Tablet) 650 mg PO Q6H PRN PRN Reason: Pain, Mild (Pain Scale 1-3), fever or headache Calcium Carbonate (Calcium Carbonate 750 Mg Tab.Chew) 750 mg PO Q4H PRN PRN Reason: Heartburn Ceftriaxone Sodium (Ceftriaxone Sodium 1 Gm Vial) 1 gm IVPUSH Q24H [facility] Last Admin: 02/12/24 23:52 Dose: 1 gm Heparin Sodium (Porcine) (Heparin Sodium,Porcine 5,000 Unit/Ml Vial) 5,000 unit SUBCUT Q12H [facility] Last Admin: 02/13/24 11:04 Dose: Not Given Metronidazole (Flagyl) 500 mg in 100 mls @ 100 mls/hr IV Q8H [facility] Last Infusion: 02/13/24 10:55 Dose: Infused Magnesium Hydroxide (Milk Of Magnesia 30 Ml Oral.Susp) 30 ml PO DAILY PRN PRN Reason: Constipation Melatonin (Melatonin 3 Mg Tablet) 6 mg PO BEDTIME PRN PRN Reason: Insomnia Ondansetron HCl (Ondansetron Hcl 4 Mg/2 Ml Vial) 4 mg IVPUSH Q8H PRN PRN Reason: Nausea and Vomiting Last Admin: 02/13/24 11:04 Dose: 4 mg Oxycodone HCl (Oxycodone Hcl Immed Release 5 Mg Tablet) 10 mg PO Q4H PRN PRN Reason: Pain, Moderate(Pain Scale 4-6) Last Admin: 02/13/24 11:04 Dose: 10 mg Sodium Chloride (0.9 % Sodium Chloride Flush 3 Ml Syringe) 3 ml IVFLUSH QSHIFT [facility] Last Admin: 02/13/24 16:34 Dose: 3 ml Allergies Allergies Allergy/AdvReac Type Severity Reaction Status Date / Time Sulfa (Sulfonamide Allergy Intermediate HIVES Verified 02/10/24 16:31 Antibiotics) Heparin Analogues Allergy Unknown UNKNOWN Verified 02/10/24 16:31 [Heparin Agents] verapamil Allergy Unknown unknown Verified 02/10/24 16:31 Assessment & Plan Assessment & Plan (1) Acute encephalopathy: Status: Acute Code(s): G93.40 - Encephalopathy, unspecified Plan Ms. Kay is a 73 year-old woman with hx of ESRD on dialysis who was [place] [facility] [place] due to confusion in setting of uremia. At time of assessment, pt did not present as delirious. She also did not present with hallucinations. Although suspect her mentation may fluctuate base on level of uremia. If noted more consistent pattern of hallucinations, can try low dose of haldol between 1-2mg PO BID, while treating underlying source of encephalopathy. PLAN 1. if needed can do haldol 1 or 2mg po BID PRN or schedule if more consistent s/s of psychosis noted. Suspect psychosis is in context of encephalopathy, nor primarily psychiatric illness nor in setting of dementing process at this time. Monitor Qtc<500ms, K>4, Mg>2. Currently, Qtc 405, although she does have 1s degree A-V block. 2. May consider doing MOCA/ ACL by OT should cognitive and memory is of concern. Total time managing care of this patient today ____ minutes.
[2024-02-13 19:36] VITALS: BP 132/64; PULSE 84; RESP 16; TEMP 37.2; O2SAT 97
--- NOTE | 2024-02-13 22:00 | PC.NURSE ---
Pt asking for night meds, upon review of medications, home meds not ordered, Dr. Sheikh made aware, and placed new orders per MAR. Per MAR not able to give tacrolimus due to being in main pharmacy, with no access. Pt very upset and worried about missing immunosuppressant medication for this long, stating I haven't taken my meds since i've been here. Per pt request supervisor beehive kiln Serenity at bedside. Pt reassured about medications. New U/S guided IV placed to RFA,
[2024-02-14] VITALS (7 sets, daily range): BP systolic 125–154; BP diastolic 59–78; PULSE 62–99; RESP 12–16; TEMP 36–36.6; O2SAT 96–99
[2024-02-14] MEDS: cefTRIAXone sodium 1 GM VIAL IVPUSH (00:38)
[2024-02-14] MEDS: metroNIDAZOLE/NS 500 MG/100 ML PIGGYBACK 100 MG IV ×3 (01:24→16:44)
[2024-02-14] MEDS: oxyCODONE HCl Immed Release 5 MG TABLET 10 MG PO ×2 (02:35→08:45)
[2024-02-14] MEDS: Levothyroxine Sodium 88 MCG TABLET PO (06:12)
[2024-02-14] MEDS: 0.9 % Sodium Chloride Flush 3 ML SYRINGE IVFLUSH ×3 (08:40→20:37)
[2024-02-14] MEDS: hydrOXYzine HCL 25 MG TABLET PO (09:10)
[2024-02-14] MEDS: ondansetron HCL 4 MG/2 ML VIAL IVPUSH (09:13)
--- NOTE | 2024-02-14 13:59 | HO.PM.IMPN ---
Subjective Subjective Date of Service: 02/14/24 Interval History: Much clear today. No evidence of any auditory or visual hallucinations. Dialysis without issue Review of Systems Denies chest pain Denies shortness of breath Denies nausea vomiting diarrhea Admits to diffuse abdominal pain that is well controlled with current therapies. Denies fever chills Physical Exam Vital Signs: Vital Signs: Last Vital Signs Temp 97.6 F 02/14/24 07:32 Pulse 62 02/14/24 07:32 Resp 16 02/14/24 07:32 BP 146/75 H 02/14/24 03:27 Pulse Ox 97 02/14/24 07:32 O2 Del Method Room Air 02/14/24 07:32 BMI result Body Mass Index 24.2 Const: Other: Awake alert no acute distress Resp: Other: Clear to auscultation bilaterally no rales rhonchi or wheezes Cardio: Other: No S4; positive S1-S2; no S3 murmurs rubs or gallops GI: Other: Soft nontender nondistended normoactive bowel sounds Extrem: Other: No edema bilaterally Objective Data Active Medications Acetaminophen (Acetaminophen 325 Mg Tablet) 650 mg PO Q6H PRN PRN Reason: Pain, Mild (Pain Scale 1-3), fever or headache Allopurinol (Allopurinol 100 Mg Tablet) 100 mg PO Q48H [facility] Aspirin (Aspirin Enteric Coated 81 Mg Tablet.Dr) 81 mg PO DAILY@1200 [facility] Atorvastatin Calcium (Atorvastatin Calcium 20 Mg Tablet) 20 mg PO BEDTIME [facility] Calcium Carbonate (Calcium Carbonate 750 Mg Tab.Chew) 750 mg PO Q4H PRN PRN Reason: Heartburn Ceftriaxone Sodium (Ceftriaxone Sodium 1 Gm Vial) 1 gm IVPUSH Q24H [facility] Last Admin: 02/14/24 00:38 Dose: 1 gm Documented By: VIKTORIYA Folic Acid (Folic Acid 1 Mg Tablet) 1 mg PO DAILY@1200 [facility] Heparin Sodium (Porcine) (Heparin Sodium,Porcine 5,000 Unit/Ml Vial) 5,000 unit SUBCUT Q12H [facility] Last Admin: 02/13/24 22:23 Dose: Not Given Documented By: VIKTORIYA Non-Admin Reason: Patient Refused Hydroxyzine HCl (Hydroxyzine Hcl 25 Mg Tablet) 25 mg PO Q6H PRN PRN Reason: Itching Last Admin: 02/14/24 09:10 Dose: 25 mg Documented By: GEORGE Metronidazole (Flagyl) 500 mg in 100 mls @ 100 mls/hr IV Q8H [facility] Last Infusion: 02/14/24 09:46 Dose: Infused Documented By: GEORGE Levothyroxine Sodium (Levothyroxine Sodium 88 Mcg Tablet) 88 mcg PO DAILY@0600 [facility] Last Admin: 02/14/24 06:12 Dose: 88 mcg Documented By: VIKTORIYA Magnesium Hydroxide (Milk Of Magnesia 30 Ml Oral.Susp) 30 ml PO DAILY PRN PRN Reason: Constipation Melatonin (Melatonin 3 Mg Tablet) 6 mg PO BEDTIME PRN PRN Reason: Insomnia Metoprolol Tartrate (Metoprolol Tartrate 25 Mg Tablet) 25 mg PO BID@1200,2200 [facility]; Protocol Ondansetron HCl (Ondansetron Hcl 4 Mg/2 Ml Vial) 4 mg IVPUSH Q8H PRN PRN Reason: Nausea and Vomiting Last Admin: 02/14/24 09:13 Dose: 4 mg Documented By: GEORGE Oxycodone HCl (Oxycodone Hcl Immed Release 5 Mg Tablet) 10 mg PO Q4H PRN PRN Reason: Pain, Moderate(Pain Scale 4-6) Last Admin: 02/14/24 08:45 Dose: 10 mg Documented By: GEORGE Ropinirole HCl (Ropinirole Hcl 0.5 Mg Tablet) 0.5 mg PO BEDTIME@2200 [facility] Last Admin: 02/14/24 00:38 Dose: Not Given Documented By: VIKTORIYA Non-Admin Reason: Patient Refused Sodium Chloride (0.9 % Sodium Chloride Flush 3 Ml Syringe) 3 ml IVFLUSH [facility] Last Admin: 02/14/24 08:40 Dose: 3 ml Documented By: GEORGE Tacrolimus (Tacrolimus 0.5 Mg Capsule) 0.5 mg PO BID@1200,2200 [facility] Last Admin: 02/14/24 00:03 Dose: Not Given Documented By: VIKTORIYA Non-Admin Reason: not given due to no access to main pharmacy Venlafaxine HCl (Venlafaxine Hcl 25 Mg Tablet) 25 mg PO DAILY@1200 [facility] Vitamin D (Cholecalciferol (Vitamin D3) 25 Mcg Tablet) 50 mcg PO DAILY@1200 [facility] Labs 02/13/24 05:45 02/13/24 05:45 Assessment and Plan (1) Urinary tract infection: Status: Acute (2) Acute metabolic encephalopathy: Status: Acute Plan This is a 73-year-old female with pertinent history of ESRD on dialysis (Friday/Friday/), atrial fibrillation not on anticoagulation, COPD not on home oxygen, gastroesophageal reflux disease, thyroid cancer status post radiation therapy, status post TAVR, coronary artery disease, cirrhosis status post liver transplant, gout, mood disorder, hypothyroidism who was sent to the emergency department for evaluation of confusion. 1.Acute encephalopathy likely secondary to acute UTI -ceftriaxone (4) -mixed valeriy; we will continue ceftriaxone -mentation improved... No further evidence of auditory or visual hallucinations 2.Acute diverticulitis -ceftriaxone/Flagyl (4) -tolerating advancement of diet 3.Hypothyroidism -noncompliant with Synthroid -resume outpatient supplementation 4.ESRD on hemodialysis -appreciate renal input -hemodialysis as ordered -follow renals/divalents 5.Paroxysmal atrial fibrillation -acceptable control on current therapies -adjust as indicated 6.Status post liver transplant -tacrolimus as ordered Heparin Full code Requires ongoing hospitalization for IV antibiotics to treat acute diverticulitis as well as acute UTI pending culture. Specialty consultation as indicated Quality Stroke Does the patient have a stroke diagnosis?: No VTE Prior VTE?: No VTE Risk Level:: Medical - moderate - high VTE Device Contraindication: Treatment Not Indicated VTE Drug Contraindication: N/A - Med Ordered
[2024-02-14] MEDS: Venlafaxine HCL 25 MG TABLET PO (14:53)
[2024-02-14] MEDS: Aspirin Enteric Coated 81 MG TABLET.DR PO (14:53)
[2024-02-14] MEDS: allopurinoL 100 MG TABLET PO (14:53)
[2024-02-14] MEDS: Cholecalciferol (Vitamin D3) 25 MCG TABLET 50 MCG PO (14:53)
[2024-02-14] MEDS: Folic Acid 1 MG TABLET PO (14:54)
[2024-02-14] MEDS: Metoprolol Tartrate 25 MG TABLET PO ×2 (14:55→20:32)
[2024-02-14] MEDS: Tacrolimus 0.5 MG CAPSULE PO ×2 (15:56→20:33)
[2024-02-14] MEDS: rOPINIRole HCL 0.5 MG TABLET PO (20:31)
[2024-02-14] MEDS: Atorvastatin Calcium 20 MG TABLET PO (20:31)
[2024-02-15] MEDS: cefTRIAXone sodium 1 GM VIAL IVPUSH (00:53)
[2024-02-15] MEDS: metroNIDAZOLE/NS 500 MG/100 ML PIGGYBACK 100 MG IV ×2 (00:58→08:44)
[2024-02-15 04:00] VITALS: BP 111/60; PULSE 76; RESP 16; TEMP 36.4; O2SAT 96
[2024-02-15] MEDS: Levothyroxine Sodium 88 MCG TABLET PO (05:33)
[2024-02-15 06:48] LABS: MANUAL DIFF FLAG NO
[2024-02-15 06:56] LABS: Basophils Absolute Auto 0.1 X10*3/uL (0.0-0.2); Basophils Percent Auto 0.8 % (0-2); Eosinophils Absolute Auto 0.2 X10*3/uL (0.0-0.4); Eosinophils Percent Auto 2.5 % (0-4); Hematocrit 39.9 % (37.0-47.0); Hemoglobin 12.8 g/dl (12.0-16.0); Imm Gran Abs Auto 0.07 X10*3/uL (0.00-0.03); Imm Gran Pct Auto 0.8 % (0.0-0.4); Lymphocytes Percent Auto 22.8 % (20-40); Mean Corpuscular HGB Conc 32.1 g/dl (31.0-35.0); Mean Corpuscular Hemoglobin 29.8 pg (27.0-33.0); Mean Corpuscular Volume 92.8 fL (80.0-98.0); Mean Platelet Volume 11.2 fL (9.4-12.3); Monocytes Absolute Auto 1.1 X10*3/uL (0.1-1.2); Monocytes Percent Auto 12.1 % (2-11); Neutrophils Absolute Auto 5.4 x10*3/uL (2.0-8.3); Platelet Count 217 X10*3/uL (160-400); Red Cell Distribution Width 14.8 % (11.0-16.0); White Blood Count 8.9 X10*3/uL (4.8-10.8)
[2024-02-15 07:36] LABS: Alanine Aminotransferase < 6 U/L (0-31); Albumin Level 2.9 g/dL (3.5-5.0); Alkaline Phosphatase 97 U/L (39-117); Anion Gap 14 (12-20); Aspartate Amino Transferase 25 U/L (5-31); Bilirubin Total 0.2 mg/dL (0.0-1.0); Blood Urea Nitrogen 14 mg/dL (9-16); Calcium 8.4 mg/dL (8.4-10.2); Carbon Dioxide 22 mmol/L (22-29); Chloride 103 mmol/L (96-108); Creatinine Clr Calc Pharmacy 12.2; Estimated Glomerular Filt Rate 10; Glucose Fasting 89 mg/dL (60-99); Potassium 3.9 mmol/L (3.3-5.1); Sodium 135 mmol/L (135-145); Total Protein 6.4 g/dL (6.5-8.0)
[2024-02-15 07:46] VITALS: BP 131/60; PULSE 60; RESP 16; TEMP 36.1; O2SAT 98
[2024-02-15] MEDS: 0.9 % Sodium Chloride Flush 3 ML SYRINGE IVFLUSH ×3 (08:44→21:35)
[2024-02-15] MEDS: polyethylene glycoL 3350 17 GM POWD.PACK PO (10:57)
[2024-02-15] MEDS: Aspirin Enteric Coated 81 MG TABLET.DR PO (11:04)
[2024-02-15] MEDS: Folic Acid 1 MG TABLET PO (11:04)
[2024-02-15] MEDS: Tacrolimus 0.5 MG CAPSULE PO ×2 (11:04→21:35)
[2024-02-15] MEDS: Cholecalciferol (Vitamin D3) 25 MCG TABLET 50 MCG PO (11:04)
[2024-02-15] MEDS: Venlafaxine HCL 25 MG TABLET PO (11:04)
[2024-02-15 11:11] VITALS: BP 104/61; PULSE 59
--- NOTE | 2024-02-15 11:56 | P.PNIM_ITS ---
Subjective Subjective Date of Service: 02/15/24 Interval History: Complaining of abdominal pain with radiation to back and constipation, denies fever, no chills, no shortness a breath, no headache no dizziness, answering questions appropriately. Review of Systems All other symptoms reviewed and are negative. Physical Exam 2 Vital Signs: Vital Signs: Last Vital Signs Temp 96.9 F 02/15/24 07:46 Pulse 59 02/15/24 11:11 Resp 16 02/15/24 07:46 BP 104/61 02/15/24 11:11 Pulse Ox 98 02/15/24 07:46 O2 Del Method Room Air 02/15/24 07:46 BMI result Body Mass Index 24.2 Const: Other: General resting comfortably in no acute distress. Moist mucous membranes Neck no JVD. CVS regular rate rhythm, Respiratory lungs clear to auscultation, no respiratory distress, no wheeze, no rhonchi. Gastrointestinal abdomen soft, non tender, bowel sounds audible, no guarding , no rigidity. Extremities no edema. Neuro non focal Skin no rash Psych appropriate affect Objective Data Active Medications Acetaminophen (Acetaminophen 325 Mg Tablet) 650 mg PO Q6H PRN PRN Reason: Pain, Mild (Pain Scale 1-3), fever or headache Allopurinol (Allopurinol 100 Mg Tablet) 100 mg PO Q48H REPLACED BY [facility] Last Admin: 02/14/24 14:53 Dose: 100 mg Documented By: GEORGE Aspirin (Aspirin Enteric Coated 81 Mg Tablet.Dr) 81 mg PO DAILY@1200 REPLACED BY [facility] Last Admin: 02/15/24 11:04 Dose: 81 mg Documented By: GEORGE Atorvastatin Calcium (Atorvastatin Calcium 20 Mg Tablet) 20 mg PO BEDTIME REPLACED BY [facility] Last Admin: 02/14/24 20:31 Dose: 20 mg Documented By: VIKTORIYA Calcium Carbonate (Calcium Carbonate 750 Mg Tab.Chew) 750 mg PO Q4H PRN PRN Reason: Heartburn Ceftriaxone Sodium (Ceftriaxone Sodium 1 Gm Vial) 1 gm IVPUSH Q24H REPLACED BY [facility] Last Admin: 02/15/24 00:53 Dose: 1 gm Documented By: VIKTORIYA Folic Acid (Folic Acid 1 Mg Tablet) 1 mg PO DAILY@1200 REPLACED BY [facility] Last Admin: 02/15/24 11:04 Dose: 1 mg Documented By: GEORGE Heparin Sodium (Porcine) (Heparin Sodium,Porcine 5,000 Unit/Ml Vial) 5,000 unit SUBCUT Q12H REPLACED BY [facility] Last Admin: 02/15/24 10:59 Dose: Not Given Documented By: GEORGE Non-Admin Reason: Patient Refused Hydroxyzine HCl (Hydroxyzine Hcl 25 Mg Tablet) 25 mg PO Q6H PRN PRN Reason: Itching Last Admin: 02/14/24 09:10 Dose: 25 mg Documented By: GEORGE Metronidazole (Flagyl) 500 mg in 100 mls @ 100 mls/hr IV Q8H REPLACED BY [facility] Last Infusion: 02/15/24 09:46 Dose: Infused Documented By: GEORGE Levothyroxine Sodium (Levothyroxine Sodium 88 Mcg Tablet) 88 mcg PO DAILY@0600 REPLACED BY [facility] Last Admin: 02/15/24 05:33 Dose: 88 mcg Documented By: VIKTORIYA Magnesium Hydroxide (Milk Of Magnesia 30 Ml Oral.Susp) 30 ml PO DAILY PRN PRN Reason: Constipation Melatonin (Melatonin 3 Mg Tablet) 6 mg PO BEDTIME PRN PRN Reason: Insomnia Metoprolol Tartrate (Metoprolol Tartrate 25 Mg Tablet) 25 mg PO BID@1200,2200 REPLACED BY [facility]; Protocol Last Admin: 02/15/24 11:11 Dose: Not Given Documented By: GEORGE Non-Admin Reason: Decreased Heart Rate Ondansetron HCl (Ondansetron Hcl 4 Mg/2 Ml Vial) 4 mg IVPUSH Q8H PRN PRN Reason: Nausea and Vomiting Last Admin: 02/14/24 09:13 Dose: 4 mg Documented By: GEORGE Oxycodone HCl (Oxycodone Hcl Immed Release 5 Mg Tablet) 10 mg PO Q4H PRN PRN Reason: Pain, Moderate(Pain Scale 4-6) Last Admin: 02/14/24 08:45 Dose: 10 mg Documented By: GEORGE Polyethylene Glycol (Polyethylene Glycol 3350 17 Gm Powd.Pack) 17 gm PO DAILY REPLACED BY [facility] Last Admin: 02/15/24 10:57 Dose: 17 gm Documented By: GEORGE Ropinirole HCl (Ropinirole Hcl 0.5 Mg Tablet) 0.5 mg PO BEDTIME@2200 REPLACED BY [facility] Last Admin: 02/14/24 20:31 Dose: 0.5 mg Documented By: VIKTORIYA Sodium Chloride (0.9 % Sodium Chloride Flush 3 Ml Syringe) 3 ml IVFLUSH QSHIFT REPLACED BY [facility] Last Admin: 02/15/24 08:44 Dose: 3 ml Documented By: GEORGE Tacrolimus (Tacrolimus 0.5 Mg Capsule) 0.5 mg PO BID@1200,2200 REPLACED BY [facility] Last Admin: 02/15/24 11:04 Dose: 0.5 mg Documented By: GEORGE Venlafaxine HCl (Venlafaxine Hcl 25 Mg Tablet) 25 mg PO DAILY@1200 REPLACED BY [facility] Last Admin: 02/15/24 11:04 Dose: 25 mg Documented By: GEORGE Vitamin D (Cholecalciferol (Vitamin D3) 25 Mcg Tablet) 50 mcg PO DAILY@1200 REPLACED BY [facility] Last Admin: 02/15/24 11:04 Dose: 50 mcg Documented By: GEORGE Labs 02/15/24 05:55 02/15/24 05:55 Labs: Laboratory Results - last 24 hr 02/15/24 05:55 MCV 92.8 MCH 29.8 MCHC 32.1 RDW 14.8 Plt Count 217 MPV 11.2 Immature Gran % (Auto) 0.8 H Neut % (Auto) 61.0 Lymph % (Auto) 22.8 [place] % (Auto) 12.1 H Eos % (Auto) 2.5 Baso % (Auto) 0.8 Lymph # (Auto) 2.0 [place] # (Auto) 1.1 Eos # (Auto) 0.2 Baso # (Auto) 0.1 Abs Immat Gran (auto) 0.07 H Absolute Neuts (auto) 5.4 Absolute Nucleated RBC 0.000 Nucleated RBC % (auto) 0.0 Anion Gap 14 Estim Creat Clear Calc 12.2 Estimated GFR 10 Fasting Glucose 89 Calcium 8.4 D Total Bilirubin 0.2 AST 25 ALT < 6 Alkaline Phosphatase 97 Total Protein 6.4 L Albumin 2.9 L Assessment and Plan (1) Hallucinations, visual: Status: Acute (2) Liver transplant recipient: Status: Acute (3) Adult hypothyroidism: Status: Acute (4) Chronic renal failure: Status: Acute (5) Acute metabolic encephalopathy: Status: Acute Plan 73-year-old female with pertinent history of ESRD on dialysis (Friday/Friday/), atrial fibrillation not on anticoagulation, COPD not on home oxygen, gastroesophageal reflux disease, thyroid cancer status post radiation therapy, status post TAVR, coronary artery disease, cirrhosis status post liver transplant, gout, mood disorder, hypothyroidism who was sent to the emergency department for evaluation of confusion. 1.Acute toxic metabolic encephalopathy likely multifactorial secondary to hypothyroidism, acute UTI and diverticulitis with a backdrop of end-stage renal disease -ceftriaxone d5 -mixed valeriy; we will dc iv ceftriaxone after today's dose -mentation improved... No further evidence of auditory or visual hallucinations 2.Acute diverticulitis -ceftriaxone/Flagyl (d5) will transition to by mouth antibiotics for 2 more days -tolerating advancement of diet -add stool softeners for constipation 3.Hypothyroidism -noncompliant with Synthroid -resume outpatient supplementation, outpatient TSH in 6 weeks 4.ESRD on hemodialysis -appreciate renal input -hemodialysis as ordered -follow renals/divalents 5.Paroxysmal atrial fibrillation -continue metoprolol, not on anticoagulation 6.Status post liver transplant -tacrolimus as ordered Heparin Full code Will require continued inpatient hospitalization for close monitoring of mental status and safe disposition home waiting for PT eval Quality Stroke Does the patient have a stroke diagnosis?: No VTE Prior VTE?: No VTE Risk Level:: Medical - moderate - high VTE Device Contraindication: Treatment Not Indicated VTE Drug Contraindication: N/A - Med Ordered
[2024-02-15] MEDS: cefuroxime axetiL 500 MG TABLET PO (13:46)
[2024-02-15] MEDS: metroNIDAZOLE 500 MG TABLET PO ×2 (13:46→21:28)
[2024-02-15 15:18] VITALS: BP 122/49; PULSE 63; RESP 15; TEMP 36.1; O2SAT 98
[2024-02-15 19:08] VITALS: BP 123/55; PULSE 69; RESP 16; TEMP 36.2; O2SAT 96
[2024-02-15] MEDS: rOPINIRole HCL 0.5 MG TABLET PO (21:28)
[2024-02-15] MEDS: Atorvastatin Calcium 20 MG TABLET PO (21:28)
[2024-02-15 21:30] VITALS: BP 125/72; PULSE 62
[2024-02-15] MEDS: Metoprolol Tartrate 25 MG TABLET PO (21:30)
[2024-02-16] VITALS (9 sets, daily range): BP systolic 91–148; BP diastolic 47–72; PULSE 55–95; RESP 16–18; TEMP 36–37; O2SAT 93–98
[2024-02-16] MEDS: metroNIDAZOLE 500 MG TABLET PO ×3 (05:36→21:03)
[2024-02-16] MEDS: Levothyroxine Sodium 88 MCG TABLET PO (05:36)
[2024-02-16] MEDS: oxyCODONE HCl Immed Release 5 MG TABLET 10 MG PO ×3 (05:41→14:02)
[2024-02-16] MEDS: polyethylene glycoL 3350 17 GM POWD.PACK PO (08:44)
--- NOTE | 2024-02-16 09:20 | P.PNNP_ITS ---
Subjective Subjective Date of Service: 02/16/24 Interval history: 73 y/o female with ESRD on HD ([place], [place], Sat). She is a patient of Dr Umanzor. 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 Was sent to ED from outpatient dialysis on 02/09 for reports of confusion and hallucinations. Nephrology consulted for ESRD and HD management she states her abdominal pain is improving, more mild now states breathing is comfortable today no chest pain no pain with urination (continues to void every few days per pt) denies other concerns/new symptoms 02/09 imaging: head CT unremarkable for acute changes chest CT shows basilar scarring and/or discoid atelectasis abdominal CT suggests mild diverticulitis, bilateral renal atrophy Physical Exam 2 Vital Signs: Vital Signs: Last Vital Signs Temp 96.8 F 02/16/24 11:42 Pulse 61 02/16/24 12:30 Resp 16 02/16/24 11:42 BP 145/72 H 02/16/24 12:30 Pulse Ox 98 02/16/24 11:42 O2 Del Method Room Air 02/16/24 11:42 BMI result Body Mass Index 24.2 Const: General: no acute distress, alert, awake and confusion O rientation/consciousness: oriented to person, oriented to place and confusion Neck: Neck: Yes no JVD Resp: Effort & Inspection: normal respiratory effort and able to speak in complete sentences Auscultation: clear to auscultation bilaterally Cardio: Jugular venous distension: no JVD Rate: regular rate Rhythm: r egular rhythm Heart sounds: S1 normal heart sound present, S2 normal heart sound present and Murmur heart sound present GI: Palpation (GI): Soft to palpation and Tenderness to palpation present (GI) (reports tender to palpation of lower abdomen) : General: Yes no CVA tenderness Back/Spine/Pelvis: Back: no CVA tenderness Skin: Lesions: no lesions Rashes: no rashes Neuro: General: oriented to person, oriented to place and confusion Extrem: General: No edema and No pedal edema Objective Data Labs 02/15/24 05:55 02/15/24 05:55 Microbiology Microbiology Results: Microbiology 02/10/24 22:27 Blood - Venous Blood Culture - Final No growth after 5 days. 02/10/24 22:15 Blood - Venous Blood Culture - Final No growth after 5 days. 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 ~15 years ago) on HD here with weakness, hallucinations with immunosuppressed status continue treatment of diverticulitis, UTI as planned; waiting safe placement Orders in for HD , , Fri schedule as she is outpatient clinically euvolemic at this time 02/15 H&H 12.8 and 39.9, no indication for procrit at this time potassium normal, not metabolically acidotic at this time calcium within normal limits phosphorous low at 1.7- will continue to monitor, no phos restriction in diet has left upper extremity AV fistula with +bruit, +thrill oliguric at baseline (small amount every few days per pt) Will continue to follow Discussed with Dr Schilling Time Spent With Patient Time: Total time managing care of this patient today ____ minutes. Progress Note: Quality Stroke Does the patient have a stroke diagnosis?: No
[2024-02-16] MEDS: Metoprolol Tartrate 25 MG TABLET PO ×2 (12:30→21:05)
[2024-02-16] MEDS: Cholecalciferol (Vitamin D3) 25 MCG TABLET 50 MCG PO (12:30)
[2024-02-16] MEDS: Aspirin Enteric Coated 81 MG TABLET.DR PO (12:31)
[2024-02-16] MEDS: allopurinoL 100 MG TABLET PO (12:31)
[2024-02-16] MEDS: Venlafaxine HCL 25 MG TABLET PO (12:31)
[2024-02-16] MEDS: Folic Acid 1 MG TABLET PO (12:31)
[2024-02-16] MEDS: Tacrolimus 0.5 MG CAPSULE PO ×2 (12:31→21:03)
[2024-02-16] MEDS: cefuroxime axetiL 500 MG TABLET PO (12:31)
--- NOTE | 2024-02-16 13:33 | HO.WOUND ---
Wound Consult: Initial 73 yr old?female admitted to [facility] on 02/10/24 - See progress notes and H&P for detailed history.? Wound consult placed for Left Breast and Abdomen wound.? Patient agreeable to assessment and photo documentation.? Patient reports she has had the wounds over over 7 years in various stages of healing. She reports they have never fully resurfaced. She reports initially they started after her liver surgery 7 years ago. She reports she has followed with numerous doctors including dermatology which little improvment. She denies biopsy to her knowledge and is agreeable to follow up with our outp wound clinic at time of d/c. Left Abdomen Midline Abdomen Etiology: ?Unclear Etiology not consistent with pressure or moisture Measurements: see charting for detailed measurements Wound Bed: red moist wound bed Drainage / Odor: moderate amount of yellow serous drainage Edges: ? well defined Jillian wound: ?Mild erythema , No Induration, Fluctuance or Warmth noted Pain: tenderness reported Goals of Treatment: ? Moisture Management with [employer] Recommendations: 1. Abdomen - Cleanse with NS, moist gauze, May shower and wash with soap and water instead. Apply skin prep to periwound. Cover Wound bed with [employer], Foam dressing. Change every other day to start. If drainage decreases consider every 3rd day change. Recommend follow up out patient Wound Clinic at [address] [place] [id number] and to call for an appointment at time of discharge. [phone].? 4. Provide adequate and supplemental nutrition.? Re-consult wound care Nurse for wound deterioration or wound changes.
--- NOTE | 2024-02-16 14:20 | MHC.CM.PN ---
Addendum entered by Jeana Horne 02/16/24 14:58: Met with the patient again to discuss discharge plan. She refuses STR. She was active with [facility] in the past. A referral has been sent to the agency. [facility] is following for discharge. Original Note: The PT eval has been done. The recommendation is for STR. Met with patient to obtain preferences for STR. Patient states that she does not want to go to STR. She has HD T/T/S [facility]. She receives transportation to HD thru [facility]. CM will continue to follow for discharge.
--- NOTE | 2024-02-16 15:19 | P.PNIM_ITS ---
Subjective Subjective Date of Service: 02/16/24 Interval History: Complaining of left-sided neck pain, no bowel movement, concern about to open wounds and abdomen that are present since liver transplant, denies fever, no chills, no other acute events overnight. Review of Systems All other system reviewed and are negative. Physical Exam 2 Vital Signs: Vital Signs: Last Vital Signs Temp 98.1 F 02/16/24 15:17 Pulse 56 02/16/24 15:17 Resp 18 02/16/24 15:17 BP 118/47 L 02/16/24 15:17 Pulse Ox 96 02/16/24 15:17 O2 Del Method Room Air 02/16/24 15:17 BMI result Body Mass Index 24.2 Const: Other: General resting comfortably in no acute distress. Moist mucous membranes Neck no JVD, mild tenderness left trapezius, no spasm. CVS regular rate rhythm, Respiratory lungs clear to auscultation, no respiratory distress, no wheeze, no rhonchi. Gastrointestinal abdomen soft, non tender, bowel sounds audible, no guarding , no rigidity, small open wound with no drainage surrounding moist skin. Extremities no edema. Neuro non focal Skin no rash Psych appropriate affect Objective Data Active Medications Acetaminophen (Acetaminophen 325 Mg Tablet) 650 mg PO Q6H PRN PRN Reason: Pain, Mild (Pain Scale 1-3), fever or headache Allopurinol (Allopurinol 100 Mg Tablet) 100 mg PO Q48H [facility] Last Admin: 02/16/24 12:31 Dose: 100 mg Documented By: IDALMIS Aspirin (Aspirin Enteric Coated 81 Mg Tablet.) 81 mg PO DAILY@1200 [facility] Last Admin: 02/16/24 12:31 Dose: 81 mg Documented By: IDALMIS Atorvastatin Calcium (Atorvastatin Calcium 20 Mg Tablet) 20 mg PO BEDTIME [facility] Last Admin: 02/15/24 21:28 Dose: 20 mg Documented By: RIZWAN Calcium Carbonate (Calcium Carbonate 750 Mg Tab.Chew) 750 mg PO Q4H PRN PRN Reason: Heartburn Cefuroxime Axetil (Cefuroxime Axetil 500 Mg Tablet) 500 mg PO Q24H [facility] Last Admin: 02/16/24 12:31 Dose: 500 mg Documented By: IDALMIS Folic Acid (Folic Acid 1 Mg Tablet) 1 mg PO DAILY@1200 [facility] Last Admin: 02/16/24 12:31 Dose: 1 mg Documented By: IDALMIS Heparin Sodium (Porcine) (Heparin Sodium,Porcine 5,000 Unit/Ml Vial) 5,000 unit SUBCUT Q12H [facility] Last Admin: 02/16/24 12:30 Dose: Not Given Documented By: IDALMIS Non-Admin Reason: Patient Refused Hydroxyzine HCl (Hydroxyzine Hcl 25 Mg Tablet) 25 mg PO Q6H PRN PRN Reason: Itching Last Admin: 02/14/24 09:10 Dose: 25 mg Documented By: GEORGE Lactulose (Lactulose 20 Gm/30 Ml Solution) 20 gm PO DAILY PRN PRN Reason: Constipation Levothyroxine Sodium (Levothyroxine Sodium 88 Mcg Tablet) 88 mcg PO DAILY@0600 [facility] Last Admin: 02/16/24 05:36 Dose: 88 mcg Documented By: RIZWAN Magnesium Hydroxide (Milk Of Magnesia 30 Ml Oral.Susp) 30 ml PO DAILY PRN PRN Reason: Constipation Melatonin (Melatonin 3 Mg Tablet) 6 mg PO BEDTIME PRN PRN Reason: Insomnia Metoprolol Tartrate (Metoprolol Tartrate 25 Mg Tablet) 25 mg PO BID@1200,2200 [facility]; Protocol Last Admin: 02/16/24 12:30 Dose: 25 mg Documented By: IDALMIS Metronidazole (Metronidazole 500 Mg Tablet) 500 mg PO Q8H [facility] Last Admin: 02/16/24 12:31 Dose: 500 mg Documented By: IDALMIS Ondansetron HCl (Ondansetron Hcl 4 Mg/2 Ml Vial) 4 mg IVPUSH Q8H PRN PRN Reason: Nausea and Vomiting Last Admin: 02/14/24 09:13 Dose: 4 mg Documented By: GEORGE Oxycodone HCl (Oxycodone Hcl Immed Release 5 Mg Tablet) 10 mg PO Q4H PRN PRN Reason: Pain, Moderate(Pain Scale 4-6) Last Admin: 02/16/24 14:02 Dose: 10 mg Documented By: JAQUELIN Polyethylene Glycol (Polyethylene Glycol 3350 17 Gm Powd.Pack) 17 gm PO DAILY [facility] Last Admin: 02/16/24 08:44 Dose: 17 gm Documented By: JAQUELIN Ropinirole HCl (Ropinirole Hcl 0.5 Mg Tablet) 0.5 mg PO BEDTIME@2200 [facility] Last Admin: 02/15/24 21:28 Dose: 0.5 mg Documented By: RIZWAN Sodium Chloride (0.9 % Sodium Chloride Flush 3 Ml Syringe) 3 ml IVFLUSH QSHIFT [facility] Last Admin: 02/16/24 08:46 Dose: Not Given Documented By: JAQUELIN Non-Admin Reason: Previously Administered Tacrolimus (Tacrolimus 0.5 Mg Capsule) 0.5 mg PO BID@1200,2200 [facility] Last Admin: 02/16/24 12:31 Dose: 0.5 mg Documented By: IDALMIS Venlafaxine HCl (Venlafaxine Hcl 25 Mg Tablet) 25 mg PO DAILY@1200 [facility] Last Admin: 02/16/24 12:31 Dose: 25 mg Documented By: IDALMIS Vitamin D (Cholecalciferol (Vitamin D3) 25 Mcg Tablet) 50 mcg PO DAILY@1200 [facility] Last Admin: 02/16/24 12:30 Dose: 50 mcg Documented By: IDALMIS Labs 02/15/24 05:55 02/15/24 05:55 Microbiology Microbiology Results: Microbiology 02/10/24 22:27 Blood Culture - Final Blood - Venous No growth after 5 days. 02/10/24 22:15 Blood Culture - Final Blood - Venous No growth after 5 days. Assessment and Plan (1) Hallucinations, visual: Status: Acute (2) Liver transplant recipient: Status: Acute (3) Adult hypothyroidism: Status: Acute (4) Chronic renal failure: Status: Acute (5) Acute metabolic encephalopathy: Status: Acute Plan 73-year-old female with pertinent history of ESRD on dialysis (Friday/Friday/), atrial fibrillation not on anticoagulation, COPD not on home oxygen, gastroesophageal reflux disease, thyroid cancer status post radiation therapy, status post TAVR, coronary artery disease, cirrhosis status post liver transplant, gout, mood disorder, hypothyroidism who was sent to the emergency department for evaluation of confusion. 1.Acute toxic metabolic encephalopathy -all likely multifactorial secondary to hypothyroidism, acute UTI and diverticulitis with a backdrop of end-stage renal disease -finished course of antibiotics -mentation improved... No further evidence of auditory or visual hallucinations -muscular neck pain will place on [place] and hot pack. 2.Acute diverticulitis -s/p ceftriaxone/Flagyl x 5 days, now on by mouth Ceftin and Flagyl day 6 -tolerating regular diet -add stool softeners for constipation 3.Hypothyroidism -noncompliant with Synthroid -resume outpatient supplementation, outpatient TSH in 6 weeks 4.ESRD on hemodialysis -appreciate renal input -hemodialysis as ordered -follow renals/divalents 5.Paroxysmal atrial fibrillation -continue metoprolol, not on anticoagulation 6.Status post liver transplant -tacrolimus as ordered 7. Chronic abdominal wounds present on admissions since liver transplant will obtain wound nurse consult Heparin Full code Will require continued inpatient hospitalization for close monitoring of mental status and safe disposition , seen by Physical therapy they recommending short- term rehab versus home PT patient declined rehab recommend ambulation TID while in-house. Quality Stroke Does the patient have a stroke diagnosis?: No VTE Prior VTE?: No VTE Risk Level:: Medical - moderate - high VTE Device Contraindication: Treatment Not Indicated VTE Drug Contraindication: N/A - Med Ordered
[2024-02-16] MEDS: 0.9 % Sodium Chloride Flush 3 ML SYRINGE IVFLUSH ×2 (15:20→21:08)
[2024-02-16] MEDS: Docusate Sodium 100 MG CAPSULE 200 MG PO (16:02)
[2024-02-16] MEDS: Lidocaine 4 % Patch ADH..PATCH 1 PATCH TRANSDERMA (16:03)
[2024-02-16] MEDS: Atorvastatin Calcium 20 MG TABLET PO (21:03)
[2024-02-16] MEDS: rOPINIRole HCL 0.5 MG TABLET PO (21:03)
[2024-02-17 03:24] VITALS: BP 112/61; PULSE 73; RESP 16; TEMP 36.3; O2SAT 99
[2024-02-17] MEDS: metroNIDAZOLE 500 MG TABLET PO ×2 (05:30→15:53)
[2024-02-17] MEDS: Levothyroxine Sodium 88 MCG TABLET PO (05:30)
[2024-02-17 07:27] VITALS: BP 112/61; PULSE 73; O2SAT 99
[2024-02-17 07:32] LABS: Phosphorus 3.5 mg/dL (2.7-4.5)
[2024-02-17 07:35] VITALS: BP 103/60; PULSE 55; RESP 16; TEMP 36.2; O2SAT 94
[2024-02-17] MEDS: Lidocaine 4 % Patch ADH..PATCH 1 PATCH TRANSDERMA (07:52)
[2024-02-17] MEDS: 0.9 % Sodium Chloride Flush 3 ML SYRINGE IVFLUSH ×2 (07:54→15:55)
[2024-02-17] MEDS: polyethylene glycoL 3350 17 GM POWD.PACK PO (07:54)
--- NOTE | 2024-02-17 09:15 | P.PNNP_ITS ---
Subjective Subjective Date of Service: 02/17/24 Interval history: 73 y/o female with ESRD on HD ([place], [place], Sat). She is a patient of Dr Umanzor. 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 Was sent to ED from outpatient dialysis on 02/09 for reports of confusion and hallucinations. Nephrology consulted for ESRD and HD management states breathing is comfortable today no chest pain no pain with urination (continues to void every few days per pt) denies other concerns/new symptoms 02/09 imaging: head CT unremarkable for acute changes chest CT shows basilar scarring and/or discoid atelectasis abdominal CT suggests mild diverticulitis, bilateral renal atrophy Physical Exam 2 Vital Signs: Vital Signs: Last Vital Signs Temp 97.1 F 02/17/24 07:35 Pulse 55 02/17/24 07:35 Resp 16 02/17/24 07:35 BP 103/60 02/17/24 07:35 Pulse Ox 94 02/17/24 07:35 O2 Del Method Room Air 02/17/24 07:35 BMI result Body Mass Index 24.2 Const: General: no acute distress, alert, awake and confusion O rientation/consciousness: oriented to person, oriented to place and confusion Neck: Neck: Yes no JVD Resp: Effort & Inspection: normal respiratory effort and able to speak in complete sentences Auscultation: clear to auscultation bilaterally Cardio: Jugular venous distension: no JVD Rate: regular rate Rhythm: r egular rhythm Heart sounds: S1 normal heart sound present, S2 normal heart sound present and Murmur heart sound present GI: Palpation (GI): Soft to palpation and nontender (reports tender to palpation of lower abdomen) : General: Yes no CVA tenderness Back/Spine/Pelvis: Back: no CVA tenderness Skin: Lesions: no lesions Rashes: no rashes Neuro: General: oriented to person, oriented to place and confusion Extrem: General: No edema and No pedal edema Objective Data Labs 02/15/24 05:55 02/15/24 05:55 Labs: Laboratory Results - last 24 hr 02/17/24 05:10 Hold Purple Top SEE NOTE Phosphorus 3.5 Microbiology Microbiology Results: Microbiology 02/10/24 22:27 Blood - Venous Blood Culture - Final No growth after 5 days. 02/10/24 22:15 Blood - Venous Blood Culture - Final No growth after 5 days. 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 ~15 years ago) on HD here with weakness, hallucinations with immunosuppressed status continue treatment of diverticulitis, UTI as planned; waiting safe placement HD , , Fri schedule as she is outpatient, plan for HD today clinically euvolemic at this time 02/15 H&H 12.8 and 39.9, no indication for procrit at this time potassium normal, not metabolically acidotic at this time calcium within normal limits phosphorous 3.5 on 02/16 has left upper extremity AV fistula with +bruit, +thrill oliguric at baseline (small amount every few days per pt) Will continue to follow Discussed with Dr Schilling Time Spent With Patient Time: Total time managing care of this patient today ____ minutes. Progress Note: Quality Stroke Does the patient have a stroke diagnosis?: No
--- NOTE | 2024-02-17 11:49 | MHC.CM.PN ---
Addendum entered by Jeana Horne 02/17/24 14:49: Patient will transport home via [facility]. 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 Addendum entered by Jeana Horne 02/17/24 14:07: Patients sister is not able to provide transportation home. She is called this lyric writer to notify that the patient will need transport home. Original Note: IMM 02/17/24 Patient is discharged today. She qualified for STR. She refused the offer of STR. She will discharge with resumption of services with [facility]. She will transport home after HD. Pts sister will provide transportation home. [facility] has been notified that the patient will resume HD .
--- NOTE | 2024-02-17 15:28 | W.MHC.F2F ---
Service Date Service Date: 02/17/24 Encounter Date of encounter: 02/17/24 Reasons for Services Signs and symptoms assessed: End-stage renal disease on hemodialysis/encephalopathy resolved/diverticulitis resolved/constipation Reason for fci: medication management and GI/ assessment Reason for physical therapy: home safety and mobility Homebound: Leaving the home is medically contraindicated at this time without the asist of a device and/or another person due th the listed conditions above and below. Reason homebound: immunosuppression / infection risk and weakness related to hospital stay Certification: Based on the above findings, I certify that this patient is confined to the home and needs intermittent fci care, physical therapy and/or speech therapy, or continues to need occupational therapy. The patient is under my care, and I have initiated the establishment of the plan of care. The patient will be followed by a physician who will periodically review the plan of care. Time Spent With Patient Time: Total time managing care of this patient today ____ minutes.
--- NOTE | 2024-02-17 15:29 | P.DS_ITS ---
DS: Providers Provider Date of Service: 02/17/24 Date of admission: 02/10/24 23:36 Date of discharge: 02/17/24 Primary care physician: Vanessa Hu MD Consults: 02/10/24 23:37 Consult to Nephrology Routine Consulting Provider: [facility] [place] Reason for consultation: ESRD on HD 02/12/24 14:56 Consult to Psychiatry Routine Consulting Provider: Psych Covering Reason for consultation: Hlaaucinations Has provider been notified: No 02/12/24 23:13 Consult to Wound Care Routine Reason for consultation: small open area under abd fold on left side Has provider been notified: No 02/16/24 15:19 Consult to Wound Care Routine Reason for consultation: abd wounds chronic DS: Diagnosis Discharge Diagnosis (1) ESRD (end stage renal disease) on dialysis: Status: Resolved (2) Immunosuppressed status: Status: Acute DS: Summary Hospital Course Hospital Course: History of presenting illness: Date of Service: 02/10/24 Chief Complaint: Confusion This is a 73-year-old female with pertinent history of ESRD on dialysis (T/T/S), atrial fibrillation not on anticoagulation, COPD not on home oxygen, gastroesophageal reflux disease, thyroid cancer status post radiation therapy, status post TAVR, coronary artery disease, cirrhosis status post liver transplant, gout, mood disorder, hypothyroidism who was sent to the emergency department for evaluation of confusion. Patient was recently admitted to the hospital for acute encephalopathy due to uremia and acute on chronic congestive heart failure in the setting of missed dialysis. History is limited due to confusion. Patient does endorse ongoing confusion and weakness. Also has been having some hallucinations. As per paramedics, patient was at dialysis and was confused. She was sent to the ER for further evaluation. Patient states that she has been in and out of the hospital and hence has not been taking her medications. She could not say if she was taking her thyroid medications regularly. Does endorse abdominal discomfort. No fever, chills, chest pain, palpitations, shortness of breath, changes in bowel habits. In the emergency department, white count found to be elevated and urine with more than 50 WBC. Hospital course: 73-year-old female with pertinent history of ESRD on dialysis (Friday/Friday/), atrial fibrillation not on anticoagulation, COPD not on home oxygen, gastroesophageal reflux disease, thyroid cancer status post radiation therapy, status post TAVR, coronary artery disease, cirrhosis status post liver transplant, gout, mood disorder, hypothyroidism who was sent to the emergency department for evaluation of confusion and admitted with following diagnosis. 1.Acute toxic metabolic encephalopathy likely multifactorial secondary to hypothyroidism, acute UTI and diverticulitis with a backdrop of end-stage renal disease, treated with antibiotics and finished course of ceftriaxone and Flagyl currently tolerating regular diet, CT abdomen showed moderate diverticulosis, and mural thickening of sigmoid colon, recommend outpatient Gastroenterology follow-up for possible colonoscopy to rule out underlying neoplasm, confusion resolved patient seems to be at baseline. 2.Hypothyroidism -noncompliant with Synthroid, recommend compliance with home dose of Synthroid and follow-up TSH in 6 weeks. 3.ESRD on hemodialysis continue hemodialysis as previously planned. 4.Paroxysmal atrial fibrillation -continue metoprolol, not on anticoagulation 5.Status post liver transplant continue immunosuppressants as before 6. Chronic abdominal wounds present on admissions seen by wound nurse continue dressing change as ordered. Time Attestation Discharge Coordination Time (in mins): 38 Quality: Safe Use of Opioids Does Pt have an Active Cancer Diagnosis on the Problem List?: No Quality: Stroke Does the patient have a stroke diagnosis?: No Physical Exam Vital Signs: Vital Signs: Last Vital Signs Temp 97.1 F 02/17/24 07:35 Pulse 55 02/17/24 07:35 Resp 16 02/17/24 07:35 BP 103/60 02/17/24 07:35 Pulse Ox 94 02/17/24 07:35 O2 Del Method Room Air 02/17/24 07:35 BMI result Body Mass Index 24.2 Const: Other: General resting comfortably in no acute distress. Moist mucous membranes Neck no JVD, mild tenderness left trapezius, no spasm. CVS regular rate rhythm, Respiratory lungs clear to auscultation, no respiratory distress, no wheeze, no rhonchi. Gastrointestinal abdomen soft, non tender, bowel sounds audible, no guarding , no rigidity, small open wound with no drainage surrounding moist skin. Extremities no edema. Neuro non focal Skin no rash Psych appropriate affect DS: Data Data Completed and Pending Completed studies during hospitalization [Text1]: Procedures Performance of Urinary Filtration, Intermittent, Less than 6 Hours Per Day (02/04/24) Supplement Left Inguinal Region with Synthetic Substitute, Open Approach (08/14/20) Labs on day of discharge: Laboratory Results - last 24 hr 02/17/24 05:10 Hold Purple Top SEE NOTE Phosphorus 3.5 Discharge Plan Discharge Anticipated Discharge Date/Time: 02/17/24 11:08 Patient Disposition: Home Health Service Discharge Diagnosis: Acute toxic metabolic encephalopathy Acute diverticulitis End-stage renal disease on hemodialysis Paroxysmal atrial fibrillation. Referrals: Rolanda SOTO [Other] - 1 Week (Services will resume) Vanessa Hu MD [Primary Care Provider] - 1 Week Discharge Medications: New Metamucil 3.4 gram/5.4 gram powder 1 tbsp PO DAILY Qty: 660 0RF Rx Instructions: mix into at least 8 oz of water or juice before administering Continued venlafaxine 25 mg tablet 1 tab PO DAILY@1200 ropinirole 0.5 mg tablet 1 tab PO BEDTIME@2200 hydroxyzine HCl 25 mg tablet 1 tab PO TID PRN (Reason: Itching) cholecalciferol (vitamin D3) 50 mcg (2,000 unit) tablet 1 tab PO DAILY@1200 allopurinol 100 mg tablet 100 mg PO DAILY@1200 famotidine 20 mg tablet 1 tab PO BID@1200,2200 rosuvastatin 5 mg tablet 1 tab PO BEDTIME albuterol sulfate [Ventolin HFA] 90 mcg/actuation HFA aerosol inhaler 1 puff INHALATION Q6H PRN (Reason: wheezing) calcium citrate 200 mg (950 mg) tablet 400 mg PO BID@1200,2200 folic acid 1 mg tablet 1 mg PO DAILY@1200 metoprolol tartrate 25 mg tablet 25 mg PO BID@1200,2200 Protocol: Hold for SBP/HR < HOLD for SBP < : 90 HOLD for HR < : 60 levothyroxine 88 mcg tablet 88 mcg PO DAILY@0600 tacrolimus 0.5 mg capsule 0.5 mg PO BID@1200,2200 aspirin 81 mg tablet,delayed release (DR/EC) 81 mg PO DAILY@1200 Discharge Orders: Discharge Order (Routine); Ordered 02/17/24 Ordered By: Alvino Jones Diet: Advance to usual diet Activity on Discharge: As tolerated Stand Alone Forms: Patient Portal Discharge page Print Language: Icelandic Activity Restrictions/Additional Instructions: Topical Wound Care Recommendations: Abdomen - Cleanse with NS, moist gauze, May shower and wash with soap and water instead. Apply skin prep to periwound. Cover Wound bed with Durafiber AG, Foam dressing. Change every other day to start. If drainage decreases consider every 3rd day change. Recommend follow up out patient Wound Clinic at [address] [place] [id number] and to call for an appointment at time of discharge. [phone].? Care Plan Goals: Acute encephalopathy resolved Mild acute diverticulitis finished course of antibiotic recommend outpatient Gastroenterology follow-up for colonoscopy Recommend daily fiber/fluids and ambulation Health Concerns: End-stage renal disease continue hemodialysis as before Plan of Treatment: Outpatient follow-up with primary care physician call for appointment Outpatient follow-up with nephrology as previously planned Assessment: As above Discharge Date/Time: 02/17/24 18:58
[2024-02-17 15:45] VITALS: BP 109/56; PULSE 76; RESP 18; TEMP 36.4; O2SAT 96
[2024-02-17] MEDS: Venlafaxine HCL 25 MG TABLET PO (15:53)
[2024-02-17] MEDS: Cholecalciferol (Vitamin D3) 25 MCG TABLET 50 MCG PO (15:53)
[2024-02-17] MEDS: Metoprolol Tartrate 25 MG TABLET PO (15:53)
[2024-02-17] MEDS: cefuroxime axetiL 500 MG TABLET PO (15:54)
[2024-02-17] MEDS: Aspirin Enteric Coated 81 MG TABLET.DR PO (15:55)
[2024-02-17] MEDS: Tacrolimus 0.5 MG CAPSULE PO (15:55)
[2024-02-17] MEDS: Docusate Sodium 100 MG CAPSULE 200 MG PO (15:55)
[2024-02-17] MEDS: Folic Acid 1 MG TABLET PO (15:55)
== END 2024-02-17 18:58 | disposition home health service (06) | DRG 689 ==
LOC: HO.ED 23:51 → HO.EDOVER 23:59 → HO.S3 02-11 19:04
PROVIDERS: Hospitalist; Nurse Practitioner Family; Admitting Provider Student in an Organized Health Care Education/Training Program; Emergency Provider Emergency Medicine; PCP Pediatrics; Visit Provider Hospitalist
DX: N39.0 Urinary tract infection, site not specified (principal); G92.8 Other toxic encephalopathy; N18.6 End stage renal disease; I13.2 Hypertensive heart and chronic kidney disease with heart failure and with stage 5 chronic kidney disease, or end stage renal disease; Z94.4 Liver transplant status; K57.32 Diverticulitis of large intestine without perforation or abscess without bleeding; D84.9 Immunodeficiency, unspecified; I48.0 Paroxysmal atrial fibrillation; K21.9 Gastro-esophageal reflux disease without esophagitis; M10.9 Gout, unspecified; I25.10 Atherosclerotic heart disease of native coronary artery without angina pectoris; Z99.2 Dependence on renal dialysis; I50.9 Heart failure, unspecified; E03.9 Hypothyroidism, unspecified; J44.9 Chronic obstructive pulmonary disease, unspecified; Z20.822 Contact with and (suspected) exposure to COVID-19; Z95.2 Presence of prosthetic heart valve; Z87.891 Personal history of nicotine dependence; Z91.148 Patient's other noncompliance with medication regimen for other reason; Z85.850 Personal history of malignant neoplasm of thyroid; Z79.82 Long term (current) use of aspirin; Z79.621 Long term (current) use of calcineurin inhibitor; Z79.890 Hormone replacement therapy; Z79.899 Other long term (current) drug therapy
CPT/HCPCS: 0241U; 36415; 70450; 71045; 71250; 74176; 80048; 80053; 80076; 80307; 81001; 82607; 82746; 82803; 83605; 83735; 83880; 83970; 84100; 84439; 84443; 84481; 84484; 85025; 85610; 86140; 87040; 87086; 90999; 93005; 97110; 97116; 97161; 99285; J0696; J1644; J1836; J2405

== ENCOUNTER → 2024-02-10 17:34 | Outpatient (BNV) | payer OTHER, SELFPAY | PROVIDERS: Admitting Provider Student in an Organized Health Care Education/Training Program; Emergency Provider Emergency Medicine; PCP Pediatrics; Visit Provider Internal Medicine Cardiovascular Disease | DX: R94.31 Abnormal electrocardiogram [ECG] [EKG] (principal) | CPT/HCPCS: 93010 ==

== ENCOUNTER → 2024-02-10 23:36 | Outpatient (BNV) | payer OTHER, SELFPAY | PROVIDERS: Admitting Provider Student in an Organized Health Care Education/Training Program; Emergency Provider Emergency Medicine; PCP Pediatrics; Visit Provider Student in an Organized Health Care Education/Training Program | DX: N18.6 End stage renal disease (principal); Z99.2 Dependence on renal dialysis; D84.9 Immunodeficiency, unspecified | CPT/HCPCS: 99223; 99232; 99239; G0180 ==

== ENCOUNTER → 2024-02-10 23:36 | Outpatient (BNV) | payer OTHER, SELFPAY | PROVIDERS: Admitting Provider Student in an Organized Health Care Education/Training Program; Emergency Provider Emergency Medicine; PCP Pediatrics; Visit Provider Nurse Practitioner Family | DX: N18.6 End stage renal disease (principal); Z99.2 Dependence on renal dialysis; D84.9 Immunodeficiency, unspecified | CPT/HCPCS: 90935; 99222; 99232 ==

== ENCOUNTER → 2024-02-10 23:36 | Outpatient (BNV) | payer OTHER, SELFPAY | PROVIDERS: Admitting Provider Student in an Organized Health Care Education/Training Program; Emergency Provider Emergency Medicine; PCP Pediatrics; Visit Provider Social Worker | DX: F09 Unspecified mental disorder due to known physiological condition (principal); R31.9 Hematuria, unspecified; G93.40 Encephalopathy, unspecified | CPT/HCPCS: 99232 ==

== ENCOUNTER 2024-02-19 14:43 | Inpatient (IN) | payer OTHER, SELFPAY ==
[2024-02-19] VITALS (7 sets, daily range): BP systolic 93–141; BP diastolic 47–66; PULSE 63–82; RESP 16; TEMP 36.6–36.9; O2SAT 97–100; BMI 21.0
--- NOTE | ~2024-02-19 | CT_ITS ---
EXAMINATION: CT ABDOMEN AND PELVIS WITH CONTRAST CLINICAL INFORMATION: Left lower quadrant pain with question diverticulitis COMPARISON: CT chest abdomen pelvis 02/10/2024 TECHNIQUE: Multidetector volumetric imaging was performed from the superior aspect of the liver through the pubic symphysis with intravenous contrast. A total of 85 mL of Omnipaque 350 was utilized for the study. Sagittal and coronal reformatted images were obtained on the technologist's workstation. This CT examination was performed using dose optimization techniques as appropriate, variously including the following: *Automated exposure control *Adjustment of mA and/or kV according to patient size (this includes techniques or standardized protocols for targeted exams where dose is matched to indication/reason for exam; i.e. extremities or head) *Use of iterative reconstruction technique DLP: 452 mGy-cm FINDINGS: LUNG BASES: Bibasilar scarring/atelectasis is present. TAVR is again seen. LIVER, GALLBLADDER, AND BILIARY TREE: The liver is normal in size, shape, and attenuation. Multiple surgical clips are present in the itz hepatis suggesting prior liver transplantation. Please correlate with history. No focal hepatic lesion or biliary ductal dilatation is present. The gallbladder is not seen PANCREAS: Unremarkable. SPLEEN: Unremarkable. ADRENAL GLANDS: Unremarkable. KIDNEYS AND URETERS: The kidneys are tiny and atrophic . Bilateral benign Bosniak class I renal cysts are noted which require no additional imaging or follow-up. No solid renal masses are seen. Question of bilateral nephrolithiasis. BLADDER: Empty and cannot be evaluated GASTROINTESTINAL TRACT: There is diverticulosis involving the sigmoid colon with mucosal hypertrophy but no definite findings to suggest acute diverticulitis. The small and large bowel are otherwise unremarkable. The appendix is unremarkable. ABDOMINAL WALL: There is a right inguinal hernia present containing a loop of unobstructed small bowel. At the time of the prior study, this containing only fat LYMPH NODES: No retroperitoneal lymphadenopathy VASCULAR: The IMV is dilated with a large collateral that drains into the left ovarian vein which is markedly dilated at 2.3 cm draining into the renal vein. The portal vein appears patent. PELVIC VISCERA: The retroverted uterus and adnexa are unremarkable. OSSEOUS STRUCTURES: Severe degenerative changes present throughout the spine. Compression fractures are present involving the superior endplates of L1 and L3. Kyphoplasty cement at L5. CT/CT abdomen pelvis w IV con IMPRESSION: 1. A cause for the patient's left lower quadrant pain has not been found. There is diverticulosis without diverticulitis. 2. Incidental note made of a right inguinal hernia containing a loop of unobstructed small bowel. 3. The IMV is quite dilated with large collateral draining into the left ovarian vein as described above probably indicative of portal hypertension. 4. Other incidental findings as described above including TAVR, cholecystectomy, TAVR, atrophic kidneys with question of bilateral nephrolithiasis, severe degenerative changes in the spine with compression fractures and kyphoplasty cement at L5. Fleischner guidelines were followed. Electronically signed by: Zane Waters MD 02/19/2024 08:33 PM [facility]
--- NOTE | ~2024-02-19 | XR_ITS ---
EXAMINATION: XR CHEST CLINICAL INFORMATION: sob COMPARISON: Chest radiograph and chest CT 02/10/2024 TECHNIQUE: Frontal view of the chest was obtained. FINDINGS: There is mild cardiac enlargement. A TAVR is present. Leads from a spinal stimulator are present at the level of the shawanda. Multiple surgical clips are present at the GE junction. There is no evidence of CHF. Bibasilar atelectasis, similar to prior. XR/XR chest 1V IMPRESSION: No acute pulmonary disease. Bibasilar atelectasis. Electronically signed by: Zane Waters MD 02/19/2024 08:00 PM [facility]
--- NOTE | 2024-02-19 16:13 | ECG_ITS ---
Test Reason : SOB Blood Pressure : / mmHG Vent. Rate : 063 BPM Atrial Rate : 063 BPM P-R Int : 224 ms QRS Dur : 104 ms QT Int : 468 ms P-R-T Axes : 074 -33 089 degrees QTc Int : 478 ms Sinus rhythm with 1st degree A-V block Left axis deviation Minimal voltage criteria for LVH, may be normal variant ( [place] product ) Septal infarct (cited on or before 02-FEB-2021) T wave abnormality, consider lateral ischemia Abnormal ECG When compared with ECG of 10-FEB-2024 18:16, Questionable change in initial forces of Anterior leads QT has lengthened Referred By: Bree Vance Electronically Signed By:JACKIE KING MD
--- NOTE | 2024-02-19 16:14 | ED_ITS ---
HPI - General Adult General Chief complaint: General Medical Stated complaint: WEAKNESS, SOB PER EMS Time Seen by Provider: 02/19/24 16:12 Source: patient Limitations: no limitations History of Present Illness ED Provider: Layne Vance PA-C HPI narrative: 73-year-old female with a history of end-stage renal disease on hemodialysis, liver failure status post transplant on tacrolimus, coronary artery disease with prior NSTEMI, paroxysmal AFib not anticoagulated, Presents with weakness since this morning. Associated dyspnea with exertion, generalized malaise, and abdominal pain. Pain most prominent over left lower quadrant, radiates across the suprapubic region. Unable to describe the nature of her discomfort. Associated nausea,vomiting and diarrhea. Denies fever. Related Data Home Medications ?Medication ?Instructions ?Recorded ?Confirmed aspirin 81 mg tablet,delayed 81 mg PO DAILY@1200 01/26/20 02/11/24 release allopurinol 100 mg tablet 100 mg PO DAILY@1200 03/08/20 02/11/24 cholecalciferol (vitamin D3) 50 1 tab PO DAILY@1200 08/14/20 02/11/24 mcg (2,000 unit) tablet hydroxyzine HCl 25 mg tablet 1 tab PO TID PRN Itching 08/14/20 02/11/24 ropinirole 0.5 mg tablet 1 tab PO BEDTIME@2200 08/14/20 02/11/24 venlafaxine 25 mg tablet 1 tab PO DAILY@1200 08/14/20 02/11/24 famotidine 20 mg tablet 1 tab PO BID@1200,2200 01/14/22 02/11/24 rosuvastatin 5 mg tablet 1 tab PO BEDTIME 01/14/22 02/11/24 levothyroxine 88 mcg tablet 88 mcg PO DAILY@0600 01/20/23 02/11/24 albuterol sulfate 90 mcg/actuation 1 puff inhalation Q6H PRN wheezing 06/09/23 02/11/24 aerosol inhaler (Ventolin HFA) calcium citrate 400 mg PO BID@1200,2200 06/09/23 02/11/24 tacrolimus 0.5 mg capsule, 0.5 mg PO BID@1200,2200 07/15/23 02/11/24 immediate-release folic acid 1 mg tablet 1 mg PO DAILY@1200 02/04/24 02/11/24 metoprolol tartrate 25 mg tablet 25 mg PO BID@1200,2200 02/04/24 02/11/24 Previous Rx's ?Medication ?Instructions ?Recorded psyllium husk 3.4 gram/5.4 gram 1 tbsp PO DAILY #660 grams 02/17/24 oral powder (Metamucil) Allergies Allergy/AdvReac Type Severity Reaction Status Date / Time Sulfa (Sulfonamide Allergy Intermediate HIVES Verified 02/19/24 15:14 Antibiotics) Heparin Analogues Allergy Unknown UNKNOWN Verified 02/19/24 15:14 [Heparin Agents] verapamil Allergy Unknown unknown Verified 02/19/24 15:14 Review of Systems 2 Review of Systems: Yes all other systems are reviewed and are negative Constitutional: Constitutional: Reports fatigue, Denies fever(s) and Reports malaise Cardiovascular: Cardiovascular: Denies chest pain and Reports dyspnea Respiratory: Respiratory: Denies cough and Reports dyspnea Gastrointestinal: Gastrointestinal: Reports abdominal pain, Reports diarrhea, Reports nausea and Reports vomiting Endocrine: Endocrine: Reports fatigue PMFSH Past Medical History Attestation statement: The following information was validated with the patient. Medical History (Updated 02/20/24 @ 01:17 by CHUCKY Lara) Hallucinations, visual ESRD (end stage renal disease) on dialysis Congestive heart failure Patient on waiting list for kidney transplant Gout History of transcatheter aortic valve replacement (TAVR) History of blood transfusion GERD (gastroesophageal reflux disease) Anxiety and depression AV fistula Hemodialysis patient COVID-19 vaccine series completed Murmur Hyperkalemia Left inguinal hernia DJD (degenerative joint disease) of thoracic spine Neuropathy End-stage renal disease (ESRD) COPD (chronic obstructive pulmonary disease) Coronary artery disease Bronchitis Asthma Arthritis Anemia Cirrhosis Surgical History (Updated 02/13/24 @ 00:03 by Jenny Adames) Hx of colonoscopy History of liver transplant History of surgery on arm Social History Social History Household Members: None Housing: Apartment Are you a primary rn home care to a significant other at home: No Do you presently have visiting nurse or other home services: No Unable to assess alcohol history related to: Unable to respond Alcohol intake: never Comment: pt refused bed alarm Patient Tobacco Use Status: Former Tobacco user Tobacco use type: Cigarette Cigarette Packs Per Day: 2 Cigarettes Per Day: 40.0 Years Smoked: 25 Smoked in Last 30 Days: No e-Cigarette/Vaping Use: Never Used Second Hand Smoke Exposure: No Advance Directives: Yes Advance Directives on File: Yes Advance Directives Date on File: 03/08/20 service: No Current occupational status: retired Physical Exam ED Vital Signs: Vital Signs - 24 hr 02/19/24 15:10 02/19/24 16:25 02/19/24 17:46 Temperature 98.3 F 98.3 F Pulse Rate 64 66 64 Respiratory Rate 16 16 16 Blood Pressure 93/47 L 98/53 L 141/57 H Pulse Oximetry 99 99 100 Oxygen Delivery Method Room Air Room Air Room Air 02/19/24 17:58 02/19/24 19:58 02/19/24 22:04 Temperature 98.3 F 97.9 F 98.4 F Pulse Rate 65 71 63 Respiratory Rate 16 16 16 Blood Pressure 129/66 115/65 115/66 Pulse Oximetry 98 99 97 Oxygen Delivery Method Room Air Room Air Room Air 02/20/24 00:24 Temperature 97.7 F Pulse Rate 76 Respiratory Rate 15 Blood Pressure 94/57 L Pulse Oximetry 98 Oxygen Delivery Method Room Air BMI result Body Mass Index 21.0 Const Other: Alert, cachectic, appears as if she does not feel well Orientation/consciousness: patient oriented x3 Resp Other: nonlabored respirations Cardio Other: normal peripheral perfusion GI Other: abdomen is soft, nondistended, moderate tenderness that is focal to the left lower quadrant, with a mild involuntary guarding Skin Other: warm dry no rash Neuro General: patient oriented x3, no focal motor deficits and CN's II-XI intact bilaterally Psych Other: calm cooperative Course Reevaluation(s) Reevaluation #1: Spoke with the case management. As we knew, the patient lives in independent living, lives alone. She has limited services to the home which include wound care that come a few times a week, and elder Services that come for a total of 7 hours per week. This is not adequate for her current needs. She is so weak she can not ambulate, it is also known that she has missed dialysis 3 times this month, due to her weakness, failure to thrive. The family has been contacted, they state that the patient is difficult, that she has her own barrier to care, that she has refused rehab in the past. The patient is coming to terms with the fact that she requires additional assistance. Medications Administered Discontinued Medications Generic Name Dose Route Start Last Admin Trade Name Anais PRN Reason Stop Dose Admin Iohexol 100 ml 02/19/24 17:44 02/19/24 17:44 Iohexol 350 Mg/Ml 100 Ml Infus..Btl IV 02/19/24 17:45 85 ml ONCE ONE Administration Ketorolac Tromethamine 15 mg 02/19/24 23:52 02/20/24 01:12 Ketorolac Tromethamine 15 Mg/Ml Vial IVPUSH 02/19/24 23:53 15 mg ONCE ONE Administration Lorazepam 1 mg 02/19/24 16:30 02/19/24 17:45 Lorazepam 2 Mg/Ml Vial IVPUSH 02/19/24 16:31 1 mg ONCE ONE Administration Methocarbamol 750 mg 02/19/24 23:52 02/20/24 01:13 Methocarbamol 750 Mg Tablet PO 02/19/24 23:53 750 mg ONCE ONE Administration Medical Decision Making Medical Decision Making [facility] Narrative: 73-year-old female with a history of end-stage renal disease on hemodialysis, liver failure status post transplant on tacrolimus, coronary artery disease with prior NSTEMI, paroxysmal AFib not anticoagulated, Presents with weakness since this morning. Associated dyspnea with exertion, generalized malaise, and abdominal pain. Pain most prominent over left lower quadrant, radiates across the suprapubic region. Unable to describe the nature of her discomfort. Associated nausea,vomiting and diarrhea. Denies fever. problem: Immunocompromise, end-stage renal, coronary artery disease History: Per patient I have considered the following differential diagnoses: Volume overload, ACS, new heart failure,pneumonia, viral syndrome, diverticulitis, C diff, viral gastroenteritis Plan: in regard to the patient's shortness of breath it is highly subjective, she is not hypoxic, her lungs are clear, she is not tachypneic. perhaps this is a cardiac equivalent, we will be obtaining troponin, BNP, chest x-ray and EKG. To note no chest pain. She is not volume overloaded on exam, her pressures are normal, she is not tachycardic. In regard to the belly pain, it is very focal to the left lower quadrant, I am considering diverticulitis. She does not have any known risk factors for infectious disease such as C diff. this could also be viral gastroenteritis as well given such illness has been prevalent within the community. We will give Ativan for nausea and discomfort. I have independently reviewed the following tests: Labs: leukocytosis with left shift not EKG: Sinus rhythm with first-degree AV block, rate of 63, no ischemic changes, QT 478 Chest x-ray: XR/XR chest 1V IMPRESSION: No acute pulmonary disease. Bibasilar atelectasis. Electronically signed by: Zane Waters MD 02/19/2024 08:[address] abdomen and pelvis: CT/CT abdomen pelvis w IV con IMPRESSION: 1. A cause for the patient's left lower quadrant pain has not been found. There is diverticulosis without diverticulitis. 2. Incidental note made of a right inguinal hernia containing a loop of unobstructed small bowel. 3. The IMV is quite dilated with large collateral draining into the left ovarian vein as described above probably indicative of portal hypertension. 4. Other incidental findings as described above including TAVR, cholecystectomy, TAVR, atrophic kidneys with question of bilateral nephrolithiasis, severe degenerative changes in the spine with compression fractures and kyphoplasty cement at L5. Fleischner guidelines were followed. Electronically signed by: Zane Waters MD 02/19/2024 08:33 PM [facility] RP Discussed with patient that her assessment was normal, given her failure to thrive, weakness, the fact that she lives alone, I will be placing a case management and physical therapy consult Lab Data 02/19/24 16:37 02/19/24 16:37 Labs: Lab Results 02/19/24 02/19/24 02/19/24 Range/Units 16:37 17:14 18:12 WBC 13.3 H (4.8-10.8) X10*3/uL RBC 4.27 (4.20-5.50) X10*6/uL Hgb 12.7 (12.0-16.0) g/dl Hct 39.5 (37.0-47.0) % MCV 92.5 (80.0-98.0) fL MCH 29.7 (27.0-33.0) pg MCHC 32.2 (31.0-35.0) g/dl RDW 16.1 H (11.0-16.0) % Plt Count 308 D (160-400) X10*3/uL MPV 10.2 (9.4-12.3) fL Immature Gran % (Auto) 0.8 H (0.0-0.4) % Neut % (Auto) 74.5 H (45-73) % Lymph % (Auto) 12.3 L (20-40) % [place] % (Auto) 10.4 (2-11) % Eos % (Auto) 1.6 (0-4) % Baso % (Auto) 0.4 (0-2) % Lymph # (Auto) 1.6 (1.2-4.9) X10*3/uL [place] # (Auto) 1.4 H (0.1-1.2) X10*3/uL Eos # (Auto) 0.2 (0.0-0.4) X10*3/uL Baso # (Auto) 0.1 (0.0-0.2) X10*3/uL Abs Immat Gran (auto) 0.11 H (0.00-0.03) X10*3/uL Absolute Neuts (auto) 9.9 H (2.0-8.3) x10*3/uL Absolute Nucleated RBC 0.020 H (0.0-0.012) X10*3/uL Nucleated RBC % (auto) 0.2 (0.0-0.2) /100WBC Sodium 138 (135-145) mmol/L Potassium 3.7 (3.3-5.1) mmol/L Chloride 97 (96-108) mmol/L Carbon Dioxide 26 (22-29) mmol/L Anion Gap 19 (12-20) BUN 23 H (9-16) mg/dL Creatinine 7.60 H* (0.5-1.4) mg/dL Estim Creat Clear Calc 6.2 Estimated GFR 5 Random Glucose 136 H (60-115) mg/dL Calcium 8.7 (8.4-10.2) mg/dL Magnesium 2.4 (1.6-2.6) mg/dL Total Bilirubin 0.3 (0.0-1.0) mg/dL AST 30 (5-31) U/L ALT < 6 (0-31) U/L Alkaline Phosphatase 99 (39-117) U/L Troponin I High Sens 177.6 H* D 148.8 H* (<3.5-17.0) ng/L B-Natriuretic Peptide 198 H (<100) pg/mL Total Protein 6.6 (6.5-8.0) g/dL Albumin 3.0 L (3.5-5.0) g/dL Influenza Type A (PCR) NEGATIVE (Negative) Influenza Type B (PCR) NEGATIVE (Negative) RSV RNA Qual (PCR) NEGATIVE (Negative) SARS-CoV-2 RNA (RT-PCR) NEGATIVE (Negative) Discharge Plan Discharge Clinical Impression: Weakness, Adult failure to thrive Patient Disposition: Still a Patient Prescriptions: No Action venlafaxine 25 mg tablet 1 tab PO DAILY@1200 ropinirole 0.5 mg tablet 1 tab PO BEDTIME@2200 hydroxyzine HCl 25 mg tablet 1 tab PO TID PRN (Reason: Itching) cholecalciferol (vitamin D3) 50 mcg (2,000 unit) tablet 1 tab PO DAILY@1200 allopurinol 100 mg tablet 100 mg PO DAILY@1200 famotidine 20 mg tablet 1 tab PO BID@1200,2200 rosuvastatin 5 mg tablet 1 tab PO BEDTIME albuterol sulfate [Ventolin HFA] 90 mcg/actuation HFA aerosol inhaler 1 puff INHALATION Q6H PRN (Reason: wheezing) calcium citrate 200 mg (950 mg) tablet 400 mg PO BID@1200,2200 folic acid 1 mg tablet 1 mg PO DAILY@1200 metoprolol tartrate 25 mg tablet 25 mg PO BID@1200,2200 Protocol: Hold for SBP/HR < HOLD for SBP < : 90 HOLD for HR < : 60 Metamucil 3.4 gram/5.4 gram powder 1 tbsp PO DAILY Qty: 660 0RF Rx Instructions: mix into at least 8 oz of water or juice before administering levothyroxine 88 mcg tablet 88 mcg PO DAILY@0600 tacrolimus 0.5 mg capsule 0.5 mg PO BID@1200,2200 aspirin 81 mg tablet,delayed release (DR/EC) 81 mg PO DAILY@1200 Print Language: Burkinan
[2024-02-19 16:42] LABS: MANUAL DIFF FLAG NO
[2024-02-19 16:44] LABS: Basophils Absolute Auto 0.1 X10*3/uL (0.0-0.2); Basophils Percent Auto 0.4 % (0-2); Eosinophils Absolute Auto 0.2 X10*3/uL (0.0-0.4); Eosinophils Percent Auto 1.6 % (0-4); Hematocrit 39.5 % (37.0-47.0); Hemoglobin 12.7 g/dl (12.0-16.0); Imm Gran Abs Auto 0.11 X10*3/uL (0.00-0.03); Imm Gran Pct Auto 0.8 % (0.0-0.4); Lymphocytes Absolute Auto 1.6 X10*3/uL (1.2-4.9); Lymphocytes Percent Auto 12.3 % (20-40); Mean Corpuscular HGB Conc 32.2 g/dl (31.0-35.0); Mean Corpuscular Hemoglobin 29.7 pg (27.0-33.0); Mean Corpuscular Volume 92.5 fL (80.0-98.0); Mean Platelet Volume 10.2 fL (9.4-12.3); Monocytes Absolute Auto 1.4 X10*3/uL (0.1-1.2); Monocytes Percent Auto 10.4 % (2-11); NRBC Pct Auto 0.2 /100WBC (0.0-0.2); Neutrophils Absolute Auto 9.9 x10*3/uL (2.0-8.3); Neutrophils Percent Auto 74.5 % (45-73); Platelet Count 308 X10*3/uL (160-400); Red Blood Count 4.27 X10*6/uL (4.20-5.50); Red Cell Distribution Width 16.1 % (11.0-16.0); White Blood Count 13.3 X10*3/uL (4.8-10.8)
[2024-02-19 17:18] LABS: B Type Natriuretic Peptide 198 pg/mL (<100)
[2024-02-19 17:21] LABS: Troponin-I High Sensitivity 177.6 ng/L (<3.5-17.0)
[2024-02-19 17:22] LABS: Alanine Aminotransferase < 6 U/L (0-31); Alkaline Phosphatase 99 U/L (39-117); Anion Gap 19 (12-20); Aspartate Amino Transferase 30 U/L (5-31); Bilirubin Total 0.3 mg/dL (0.0-1.0); Blood Urea Nitrogen 23 mg/dL (9-16); Calcium 8.7 mg/dL (8.4-10.2); Carbon Dioxide 26 mmol/L (22-29); Chloride 97 mmol/L (96-108); Creatinine Clr Calc Pharmacy 6.2; Estimated Glomerular Filt Rate 5; Glucose Random 136 mg/dL (60-115); Magnesium 2.4 mg/dL (1.6-2.6); Potassium 3.7 mmol/L (3.3-5.1); Sodium 138 mmol/L (135-145); Total Protein 6.6 g/dL (6.5-8.0)
[2024-02-19] MEDS: iohexoL 350 MG/ML 100 ML INFUS..BTL IV (17:44)
[2024-02-19] MEDS: LORazepam 2 MG/ML VIAL 1 MG IVPUSH (17:45)
[2024-02-19 18:14] LABS: Influenza A PCR NEGATIVE (Negative); Influenza B PCR NEGATIVE (Negative); Resp Syncy Virus RNA Qual PCR NEGATIVE (Negative); SARS COV2 PCR INHOUSE NEGATIVE (Negative)
[2024-02-19 18:55] LABS: Troponin-I High Sensitivity 148.8 ng/L (<3.5-17.0)
--- NOTE | 2024-02-19 21:29 | MHC.CM.ED ---
CM met with patient at the request of Annalise LOCKE. Pt was admitted to [facility] on 02/03- and 02/09-02/16. PT recommended STR and patient refused. Pt returned to [facility] ED today with weakness and inability to ambulate due weakness and pain. Pt missed dialysis today. Pt appears to have missed dialysis multiple times this month. Pt attends [facility] HD in [place] on T/T/S schedule. Pt has a very complex medical history, including liver transplant, ESRD, a=fib, COPD, GERD TAVR, CAD, Gout, abdominal wounds, mood disorder and hx thyroid CA. Pt is active with [facility] with [facility] 7.5 hours/wk. Rolanda SOTO and has transportation to HD from [facility]. Pt lives alone in low income elderly housing. She has a walker and a cane. HCP is on file. Sister/HCP Jena Duffy ([phone]). Pt is hyperfocused on her 2 cats; she refused STR on last admission due to cats. Sister, Jena tells CM that her sister should have gone to STR last admission and that her sister does not make good decisions. She also tells CM that the family always cares for her cats when needed. Pt does admit that she is very weak and cannot walk, but would still like to go home and care for her cats. CM explained that she has tried that and failed. Pt is very weak and falls asleep while CM is speaking with her. Explained that she now needs to go to STR and have HD and that her cats will be cared for by her family. Explained that if she cannot walk, she cannot safely go home. Provider aware. [facility] place [facility]. Will alert Rolanda SOTO that patient is in the ED. CM will follow for safe discharge plan.
--- NOTE | 2024-02-19 22:36 | PC.NURSE ---
pt arrives via EMS from independent living, on dialysis ([facility], sat @ [facility]) here for complaints of generalized weakness/malaise causing her to miss dialysis today. Fistula presemt in L arm. pt sts that she has had a revent deb loss of approx 10lbs and states I cannot get comfortable , Pt also complaints of diarrhea, however she believes this is due to a bowel regimen that she recently completed. Denies recent abx use- Pt has 20g IV in R-AC. labs were obtained, per CHUCKY Vance pt is at baseline. Pt had consult with CM (see note). during CM consult pt admitted to water reuse program manager that she is unable to ambulate which is a change from her baseline ambulating with a cane.. pt is under Phys obs at this time-- pt to have physical therapy eval in AM. hospital bed requested for pt. pt currently resting on exam room stretcher call hernandez within reach
--- NOTE | 2024-02-19 23:00 | PC.NURSE ---
This RN assumed care of patient from Angeles Gilmore LPN. Care ongoing. CHUCKY Vance notified about patient's 10/10 right shoulder pain . Patient appears to be resting comfortably and is able to make needs known. Plan for PT evaluation tomorrow. Was previously seen by Case Management (Annalise Estrada) today. Moved to hospital bed for comfort. IV access remains patent/functional in right AC.
[2024-02-20] VITALS (9 sets, daily range): BP systolic 94–137; BP diastolic 48–88; PULSE 51–76; RESP 12–20; TEMP 36–37.1; O2SAT 96–99; BMI 23.8
[2024-02-20] MEDS: Ketorolac Tromethamine 15 MG/ML VIAL IVPUSH (01:12)
[2024-02-20] MEDS: methocarbamoL 750 MG TABLET PO (01:13)
--- NOTE | 2024-02-20 01:59 | PC.NURSE ---
Patient is sleeping at this time, easily arousable. Laying in right side tilt position. Call hernandez within reach.
--- NOTE | 2024-02-20 08:16 | PC.NURSE ---
Pt has been sleeping since this RN arrival at 7am. Awaits PT eval this am.
--- NOTE | 2024-02-20 09:11 | PHA.MEDREC ---
Addendum entered by Amara Mcpherson RPh 02/20/24 10:22: Med rec was reviewed by [facility]. Original Note: Pharmacy Consult ? Medication Reconciliation Pharmacy has completed the medication reconciliation. Spoke to patient to confirm med list. Patient had a medbox list with her. Utilized medbox list and claims to confirm med list. patient states she is no longer taking Calcium citrate 400 mg and Metamucil powder. Patient states she last took her medications yesterday afternoon. She didn't get her night time medications.
[2024-02-20] MEDS: Levothyroxine Sodium 88 MCG TABLET PO (10:45)
[2024-02-20 11:36] LABS: Anion Gap 15 (12-20); Blood Urea Nitrogen 30 mg/dL (9-16); Calcium 8.5 mg/dL (8.4-10.2); Carbon Dioxide 30 mmol/L (22-29); Chloride 95 mmol/L (96-108); Creatinine Clr Calc Pharmacy 5.3; Estimated Glomerular Filt Rate 4; Glucose Random 169 mg/dL (60-115); Magnesium 2.6 mg/dL (1.6-2.6); Phosphorus 2.5 mg/dL (2.7-4.5); Potassium 4.1 mmol/L (3.3-5.1); Sodium 136 mmol/L (135-145)
[2024-02-20] MEDS: Metoprolol Tartrate 25 MG TABLET PO (11:58)
[2024-02-20] MEDS: allopurinoL 100 MG TABLET PO (11:59)
[2024-02-20] MEDS: Aspirin Enteric Coated 81 MG TABLET.DR PO (11:59)
[2024-02-20] MEDS: Folic Acid 1 MG TABLET PO (12:00)
[2024-02-20] MEDS: oxyCODONE HCl Immed Release 5 MG TABLET PO (12:00)
[2024-02-20] MEDS: Cholecalciferol (Vitamin D3) 25 MCG TABLET 50 MCG PO (12:00)
[2024-02-20] MEDS: Famotidine 20 MG TABLET PO ×2 (12:01→20:16)
--- NOTE | 2024-02-20 12:11 | MHC.CM.ED ---
Patient remains in ER. Physical therapy eval completed. Short term rehab is recommended. [facility] not have a bed today. Waiting to hear from [facility]. Continue to monitor for d/c needs.
[2024-02-20] MEDS: Tacrolimus 0.5 MG CAPSULE PO ×2 (12:16→20:16)
[2024-02-20] MEDS: Venlafaxine HCL 25 MG TABLET PO (12:16)
--- NOTE | 2024-02-20 12:31 | PC.NURSE ---
no distress. states she doesn't make urine. awaiting nephro consult and STR placement
--- NOTE | 2024-02-20 14:54 | MHC.CM.ED ---
Patient remains in ER. [facility] is not able to admit patient over the weekend. Regi LOCKE aware. Continue to monitor for d/c needs.
--- NOTE | 2024-02-20 15:33 | PC.NURSE ---
Care of Pt assumed at 3pm. Pt is resting comfortably in bed with lights low. VSS, A&Ox3, afebrile. Pt reports L shoulder and back pain and states the oxycodone does not adequately provide relief--will request new order. Pt is currently awaiting inpatient bed assignment.
--- NOTE | 2024-02-20 15:54 | PM.CNNEP ---
History of Present Illness Reason for Consult Consult date: 02/20/24 Chief Complaint Chief complaint: WEAKNESS, SOB PER EMS History of Present Illness Narrative: 73 y/o female with ESRD on HD (, , Fri). She is a patient of Dr Umanzor. 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 she has had multiple admissions recently, most recently discharged 02/16 for acute metabolic encephalopathy, acute diverticulitis. Nephrology consulted for ESRD and HD management reports she did not receive HD on , 02/18 did not feel well enough to go states her visiting nurse came to her home and felt she needed to return to the hospital, fatigue, failure to thrive, pt reports my house is a mess she reports her breathing is ok, reports feels slightly heavier as it is before she gets HD she reports some ongoing LLQ abdominal pain, states this has improved over time but still has some residual pain Denies other concerns, new symptoms 02/18 CT abd/pelvis: 1. A cause for the patient's left lower quadrant pain has not been found. There is diverticulosis without diverticulitis. 2. Incidental note made of a right inguinal hernia containing a loop of unobstructed small bowel. 3. The IMV is quite dilated with large collateral draining into the left ovarian vein as described above probably indicative of portal hypertension. 02/18 H&H 12.7 and 39.5 creatinine 8.97, BUN 30, potassium, calcium within normal limits. serum bicarb slightly elevated at 30 pt unable to get rehab placement today for HD tomorrow when she is due Review of Systems Constitutional: Reports fatigue, Denies headache(s), Reports lethargy and Reports poor appetite Denies dizziness and Denies headache(s) Cardiovascular: Denies chest pain, Denies leg edema, Denies lightheadedness and Reports dyspnea (states mild as she gets day prior to HD ) Respiratory: Reports dyspnea (states mild as she gets day prior to HD ) Gastrointestinal: Reports abdominal pain (reports mild LLQ pain), Denies constipation, Denies diarrhea, Denies nausea and Denies vomiting Genitourinary: Denies difficulty voiding, Denies dysuria and Denies flank pain Comments: oliguria at baseline Musculoskeletal: Reports back pain (reports ongoing lower back pain across lower back/buttock) Skin/Breast: Denies rash Denies dizziness and Denies headache(s) Endocrine: Reports fatigue PMFSH Past Medical History Medical History (Updated 02/20/24 @ 16:07 by Jenna Muro, DNP, PROCESSING ASSOCIATE-BC) ESRD (end stage renal disease) on dialysis Hallucinations, visual Congestive heart failure Patient on waiting list for kidney transplant Gout History of transcatheter aortic valve replacement (TAVR) History of blood transfusion GERD (gastroesophageal reflux disease) Anxiety and depression AV fistula Hemodialysis patient COVID-19 vaccine series completed Murmur Hyperkalemia Left inguinal hernia DJD (degenerative joint disease) of thoracic spine Neuropathy End-stage renal disease (ESRD) COPD (chronic obstructive pulmonary disease) Coronary artery disease Bronchitis Asthma Arthritis Anemia Cirrhosis Surgical History Surgical History Hx of colonoscopy History of liver transplant History of surgery on arm Social History Social History Household Members: None Housing: Apartment Are you a primary palliative care physician to a significant other at home: No Do you presently have visiting nurse or other home services: No Unable to assess alcohol history related to: Unable to respond Alcohol intake: never Comment: pt refused bed alarm Patient Tobacco Use Status: Former Tobacco user Tobacco use type: Cigarette Cigarette Packs Per Day: 2 Cigarettes Per Day: 40.0 Years Smoked: 25 Smoked in Last 30 Days: No e-Cigarette/Vaping Use: Never Used Second Hand Smoke Exposure: No Advance Directives: Yes Advance Directives on File: Yes Advance Directives Date on File: 03/08/20 service: No Current occupational status: retired Meds Allergies Allergy/AdvReac Type Severity Reaction Status Date / Time Sulfa (Sulfonamide Allergy Intermediate HIVES Verified 02/19/24 15:14 Antibiotics) Heparin Analogues Allergy Unknown UNKNOWN Verified 02/19/24 15:14 [Heparin Agents] verapamil Allergy Unknown unknown Verified 02/19/24 15:14 Active Medications: Current Medications Albuterol Sulfate (Albuterol Sulfate 90 Mcg 8 Gm Inhaler) 1 puff INHALE Q6H PRN PRN Reason: wheezing Allopurinol (Allopurinol 100 Mg Tablet) 100 mg PO DAILY@1200 [facility] Last Admin: 02/20/24 11:59 Dose: 100 mg Aspirin (Aspirin Enteric Coated 81 Mg Tablet.) 81 mg PO DAILY@1200 [facility] Last Admin: 02/20/24 11:59 Dose: 81 mg Atorvastatin Calcium (Atorvastatin Calcium 20 Mg Tablet) 20 mg PO DAILY [facility] Famotidine (Famotidine 20 Mg Tablet) 20 mg PO BID@1200,2200 [facility] Last Admin: 02/20/24 12:01 Dose: 20 mg Folic Acid (Folic Acid 1 Mg Tablet) 1 mg PO DAILY@1200 [facility] Last Admin: 02/20/24 12:00 Dose: 1 mg Hydroxyzine HCl (Hydroxyzine Hcl 25 Mg Tablet) 25 mg PO TID PRN PRN Reason: Itching Levothyroxine Sodium (Levothyroxine Sodium 88 Mcg Tablet) 88 mcg PO DAILY@0600 [facility] Last Admin: 02/20/24 10:45 Dose: 88 mcg Metoprolol Tartrate (Metoprolol Tartrate 25 Mg Tablet) 25 mg PO BID@1200,2200 [facility]; Protocol Last Admin: 02/20/24 11:58 Dose: 25 mg Ropinirole HCl (Ropinirole Hcl 0.5 Mg Tablet) 0.5 mg PO BEDTIME@2200 [facility] Tacrolimus (Tacrolimus 0.5 Mg Capsule) 0.5 mg PO BID@1200,2200 [facility] Last Admin: 02/20/24 12:16 Dose: 0.5 mg Venlafaxine HCl (Venlafaxine Hcl 25 Mg Tablet) 25 mg PO DAILY@1200 [facility] Last Admin: 02/20/24 12:16 Dose: 25 mg Vitamin D (Cholecalciferol (Vitamin D3) 25 Mcg Tablet) 50 mcg PO DAILY@1200 [facility] Last Admin: 02/20/24 12:00 Dose: 50 mcg Home Medications ?Medication ?Instructions ?Recorded ?Confirmed ?Last Taken ?Type aspirin 81 mg tablet,delayed 81 mg PO DAILY@1200 01/26/20 02/20/24 02/03/24 History release allopurinol 100 mg tablet 100 mg PO DAILY@1200 03/08/20 02/20/24 02/03/24 History cholecalciferol (vitamin D3) 50 1 tab PO DAILY@1200 08/14/20 02/20/24 02/03/24 History mcg (2,000 unit) tablet hydroxyzine HCl 25 mg tablet 1 tab PO TID PRN Itching 08/14/20 02/20/24 04/04/23 History ropinirole 0.5 mg tablet 1 tab PO BEDTIME@2200 08/14/20 02/20/24 02/03/24 History venlafaxine 25 mg tablet 1 tab PO DAILY@1200 08/14/20 02/20/24 02/03/24 History famotidine 20 mg tablet 1 tab PO BID@1200,2200 01/14/22 02/20/24 02/03/24 History rosuvastatin 5 mg tablet 1 tab PO BEDTIME 01/14/22 02/20/24 02/03/24 History levothyroxine 88 mcg tablet 88 mcg PO DAILY@0600 01/20/23 02/20/24 02/03/24 History albuterol sulfate 90 mcg/actuation 1 puff inhalation Q6H PRN wheezing 06/09/23 02/20/24 Unknown History aerosol inhaler (Ventolin HFA) tacrolimus 0.5 mg capsule, 0.5 mg PO BID@1200,2200 07/15/23 02/20/24 02/03/24 History immediate-release folic acid 1 mg tablet 1 mg PO DAILY@1200 02/04/24 02/20/24 02/03/24 History metoprolol tartrate 25 mg tablet 25 mg PO BID@1200,2200 02/04/24 02/20/24 02/03/24 History Physical Exam Vital Signs: Last Vital Signs Temp 97.6 F 02/20/24 15:16 Pulse 57 02/20/24 15:16 Resp 18 02/20/24 15:16 BP 118/63 02/20/24 15:16 Pulse Ox 99 02/20/24 15:16 O2 Del Method Room Air 02/20/24 15:16 BMI result Body Mass Index 21.0 Const General: no acute distress, alert and awake Neck Neck: Yes no JVD Resp Effort & Inspection: normal respiratory effort and able to speak in complete sentences Auscultation: clear to auscultation bilaterally Cardio Jugular venous distension: no JVD Rate: regular rate Rhythm: regular rhythm Heart sounds: S1 normal heart sound present and S2 normal heart sound present GI Palpation (GI): Soft to palpation and Tenderness to palpation present (GI) (tender to palpation of LLQ) General: Yes no CVA tenderness Back/Spine/Pelvis Back: no CVA tenderness Skin Lesions: no lesions Rashes: no rashes Neuro Other: no myoclonus or asterixis Extrem General: No edema Results Lab Results 02/19/24 16:37 02/20/24 11:10 Lab results: Chemistry 02/19/24 02/20/24 16:37 11:10 Sodium 138 136 Potassium 3.7 4.1 Carbon Dioxide 26 30 H BUN 23 H 30 H Creatinine 7.60 H* 8.97 H* Calcium 8.7 8.5 Phosphorus 2.5 L Hematology 02/19/24 16:37 WBC 13.3 H Hgb 12.7 Plt Count 308 D Assessment and Plan (1) Weakness: Status: Acute (2) ESRD (end stage renal disease) on dialysis: Status: Acute (3) Adult failure to thrive: Status: Acute Plan 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 to continue her regular schedule; no uremic symptoms or other urgent indication for HD this evening clinically slightly hypervolemic, will get HD tomorrow a.m. 02/15 H&H 12.7 and 39.5, no indication for procrit at this time potassium normal, not metabolically acidotic at this time calcium within normal limits phosphorous 2.9, liberalize diet as tolerated has left upper extremity AV fistula with +bruit, +thrill oliguric at baseline (small amount every few days per pt) Will continue to follow Discussed with Dr Juma Rowan Date of Service Date of Service: 02/20/24
--- NOTE | 2024-02-20 16:26 | P.HPHOSP_ITS ---
History of Present Illness Date of Service: 02/20/24 Attending physician on admission: Jonny Nathan Chief Complaint: weakness, shoulder pain This is a 73-year-old female who was recently admitted for UTI and diverticulitis who returns the emergency department with weakness and shoulder pain. Patient was discharged home on the , finish course of antibiotics during her hospital stay. She returned to the emergency department yesterday with generalized weakness. She was evaluated by Physical therapy who recommended short-term rehab. Unfortunately she was unable to be placed in rehab and due to need for dialysis the plan was made to admit her to the hospital for further management. She currently denies any shortness of breath, fever, chills, diarrhea, cough. In the emergency department she was noted to have leukocytosis on arrival but no source of infection was identified. Chest x-ray and belly CT were unremarkable, unable to obtain urine sample even by straight catheterization per patient but she denies any urinary symptoms. Left shoulder pain present on previous admission, imaging c/w with chronic degenerative changes. She missed several dialysis sessions due to weakness and last went to HD on Friday. Review of Systems 2 Review of Systems: Yes all other systems are reviewed and are negative Constitutional: Constitutional: Denies chills and Denies fever(s) Cardiovascular: Cardiovascular: Denies chest pain, Denies palpitations and Denies dyspnea Respiratory: Respiratory: Denies cough and Denies dyspnea Gastrointestinal: Gastrointestinal: Denies abdominal pain, Denies nausea and Denies vomiting Endocrine: Endocrine: Denies palpitations [facility] Medical History ESRD (end stage renal disease) on dialysis Hallucinations, visual Congestive heart failure Patient on waiting list for kidney transplant Gout History of transcatheter aortic valve replacement (TAVR) History of blood transfusion GERD (gastroesophageal reflux disease) Anxiety and depression AV fistula Hemodialysis patient COVID-19 vaccine series completed Murmur Hyperkalemia Left inguinal hernia DJD (degenerative joint disease) of thoracic spine Neuropathy End-stage renal disease (ESRD) COPD (chronic obstructive pulmonary disease) Coronary artery disease Bronchitis Asthma Arthritis Anemia Cirrhosis Surgical History Hx of colonoscopy History of liver transplant History of surgery on arm Social History Household Members: None Housing: Apartment Are you a primary care technician to a significant other at home: No Do you presently have visiting nurse or other home services: No Unable to assess alcohol history related to: Unable to respond Alcohol intake: never Comment: pt refused bed alarm Patient Tobacco Use Status: Former Tobacco user Tobacco use type: Cigarette Cigarette Packs Per Day: 2 Cigarettes Per Day: 40.0 Years Smoked: 25 Smoked in Last 30 Days: No e-Cigarette/Vaping Use: Never Used Second Hand Smoke Exposure: No Advance Directives: Yes Advance Directives on File: Yes Advance Directives Date on File: 03/08/20 service: No Current occupational status: retired Meds Allergies Allergy/AdvReac Type Severity Reaction Status Date / Time Sulfa (Sulfonamide Allergy Intermediate HIVES Verified 02/19/24 15:14 Antibiotics) Heparin Analogues Allergy Unknown UNKNOWN Verified 02/19/24 15:14 [Heparin Agents] verapamil Allergy Unknown unknown Verified 02/19/24 15:14 Active Medications: Current Medications Albuterol Sulfate (Albuterol Sulfate 90 Mcg 8 Gm Inhaler) 1 puff INHALE Q6H PRN PRN Reason: wheezing Allopurinol (Allopurinol 100 Mg Tablet) 100 mg PO DAILY@1200 [facility] Last Admin: 02/20/24 11:59 Dose: 100 mg Aspirin (Aspirin Enteric Coated 81 Mg Tablet.Dr) 81 mg PO DAILY@1200 [facility] Last Admin: 02/20/24 11:59 Dose: 81 mg Atorvastatin Calcium (Atorvastatin Calcium 20 Mg Tablet) 20 mg PO DAILY [facility] Famotidine (Famotidine 20 Mg Tablet) 20 mg PO BID@1200,2200 [facility] Last Admin: 02/20/24 12:01 Dose: 20 mg Folic Acid (Folic Acid 1 Mg Tablet) 1 mg PO DAILY@1200 [facility] Last Admin: 02/20/24 12:00 Dose: 1 mg Hydroxyzine HCl (Hydroxyzine Hcl 25 Mg Tablet) 25 mg PO TID PRN PRN Reason: Itching Levothyroxine Sodium (Levothyroxine Sodium 88 Mcg Tablet) 88 mcg PO DAILY@0600 [facility] Last Admin: 02/20/24 10:45 Dose: 88 mcg Metoprolol Tartrate (Metoprolol Tartrate 25 Mg Tablet) 25 mg PO BID@1200,2200 [facility]; Protocol Last Admin: 02/20/24 11:58 Dose: 25 mg Ropinirole HCl (Ropinirole Hcl 0.5 Mg Tablet) 0.5 mg PO BEDTIME@2200 [facility] Tacrolimus (Tacrolimus 0.5 Mg Capsule) 0.5 mg PO BID@1200,2200 [facility] Last Admin: 02/20/24 12:16 Dose: 0.5 mg Venlafaxine HCl (Venlafaxine Hcl 25 Mg Tablet) 25 mg PO DAILY@1200 [facility] Last Admin: 02/20/24 12:16 Dose: 25 mg Vitamin D (Cholecalciferol (Vitamin D3) 25 Mcg Tablet) 50 mcg PO DAILY@1200 [facility] Last Admin: 02/20/24 12:00 Dose: 50 mcg Home Medications ?Medication ?Instructions ?Recorded ?Confirmed ?Last Taken ?Type aspirin 81 mg tablet,delayed 81 mg PO DAILY@1200 01/26/20 02/20/24 02/03/24 History release allopurinol 100 mg tablet 100 mg PO DAILY@1200 03/08/20 02/20/24 02/03/24 History cholecalciferol (vitamin D3) 50 1 tab PO DAILY@1200 08/14/20 02/20/24 02/03/24 History mcg (2,000 unit) tablet hydroxyzine HCl 25 mg tablet 1 tab PO TID PRN Itching 08/14/20 02/20/24 04/04/23 History ropinirole 0.5 mg tablet 1 tab PO BEDTIME@0 08/14/20 02/20/24 02/03/24 History venlafaxine 25 mg tablet 1 tab PO DAILY@1200 08/14/20 02/20/24 02/03/24 History famotidine 20 mg tablet 1 tab PO BID@1200,2200 01/14/22 02/20/24 02/03/24 History rosuvastatin 5 mg tablet 1 tab PO BEDTIME 01/14/22 02/20/24 02/03/24 History levothyroxine 88 mcg tablet 88 mcg PO DAILY@0600 01/20/23 02/20/24 02/03/24 History albuterol sulfate 90 mcg/actuation 1 puff inhalation Q6H PRN wheezing 06/09/23 02/20/24 Unknown History aerosol inhaler (Ventolin HFA) tacrolimus 0.5 mg capsule, 0.5 mg PO BID@1200,2200 07/15/23 02/20/24 02/03/24 History immediate-release folic acid 1 mg tablet 1 mg PO DAILY@1200 02/04/24 02/20/24 02/03/24 History metoprolol tartrate 25 mg tablet 25 mg PO BID@1200,2200 02/04/24 02/20/24 02/03/24 History Physical Exam 2 Vital Signs and Narrative: Vital Signs: Last Vital Signs Temp 97.6 F 02/20/24 15:16 Pulse 57 02/20/24 15:16 Resp 18 02/20/24 15:16 BP 118/63 02/20/24 15:16 Pulse Ox 99 02/20/24 15:16 O2 Del Method Room Air 02/20/24 15:16 BMI result Body Mass Index 21.0 Const: General: cooperative, comfortable, no acute distress, alert and awake Nutritional Appearance: average body habitus Orientation/consciousness: p atient oriented x3 Resp: Effort & Inspection: normal respiratory effort, able to speak in complete sentences, no respiratory distress and no use of accessory muscles A uscultation: clear to auscultation bilaterally Skin: Other: two small abdominal wounds covered with clean dressings Neuro: General: patient oriented x3, moves all extremities and CN's II-XI intact bilaterally Extrem: Other: LUE fistula with palpable thrill Results Labs 02/19/24 16:37 02/20/24 11:10 Labs: Laboratory Results - last 24 hr 02/19/24 02/19/24 02/19/24 16:37 17:14 18:12 MCV 92.5 MCH 29.7 MCHC 32.2 RDW 16.1 H Plt Count 308 D MPV 10.2 Immature Gran % (Auto) 0.8 H Neut % (Auto) 74.5 H Lymph % (Auto) 12.3 L Boyd % (Auto) 10.4 Eos % (Auto) 1.6 Baso % (Auto) 0.4 Lymph # (Auto) 1.6 Boyd # (Auto) 1.4 H Eos # (Auto) 0.2 Baso # (Auto) 0.1 Abs Immat Gran (auto) 0.11 H Absolute Neuts (auto) 9.9 H Absolute Nucleated RBC 0.020 H Nucleated RBC % (auto) 0.2 Anion Gap 19 Estim Creat Clear Calc 6.2 Estimated GFR 5 Random Glucose 136 H Calcium 8.7 Phosphorus Magnesium 2.4 Total Bilirubin 0.3 AST 30 ALT < 6 Alkaline Phosphatase 99 Troponin I High Sens 177.6 H* D 148.8 H* B-Natriuretic Peptide 198 H Total Protein 6.6 Albumin 3.0 L Influenza Type A (PCR) NEGATIVE Influenza Type B (PCR) NEGATIVE RSV RNA Qual (PCR) NEGATIVE SARS-CoV-2 RNA (RT-PCR) NEGATIVE 02/20/24 11:10 MCV MCH MCHC RDW Plt Count MPV Immature Gran % (Auto) Neut % (Auto) Lymph % (Auto) Boyd % (Auto) Eos % (Auto) Baso % (Auto) Lymph # (Auto) Boyd # (Auto) Eos # (Auto) Baso # (Auto) Abs Immat Gran (auto) Absolute Neuts (auto) Absolute Nucleated RBC Nucleated RBC % (auto) Anion Gap 15 Estim Creat Clear Calc 5.3 Estimated GFR 4 Random Glucose 169 H Calcium 8.5 Phosphorus 2.5 L Magnesium 2.6 Total Bilirubin AST ALT Alkaline Phosphatase Troponin I High Sens B-Natriuretic Peptide Total Protein Albumin Influenza Type A (PCR) Influenza Type B (PCR) RSV RNA Qual (PCR) SARS-CoV-2 RNA (RT-PCR) Imaging Radiologist's Impressions: Impressions Chest X-Ray 02/19/24 16:15 IMPRESSION: No acute pulmonary disease. Bibasilar atelectasis. Electronically signed by: Zane Waters MD 02/19/2024 08:00 PM [facility] Abdomen/Pelvis CT 02/19/24 17:37 IMPRESSION: 1. A cause for the patient's left lower quadrant pain has not been found. There is diverticulosis without diverticulitis. 2. Incidental note made of a right inguinal hernia containing a loop of unobstructed small bowel. 3. The IMV is quite dilated with large collateral draining into the left ovarian vein as described above probably indicative of portal hypertension. 4. Other incidental findings as described above including TAVR, cholecystectomy, TAVR, atrophic kidneys with question of bilateral nephrolithiasis, severe degenerative changes in the spine with compression fractures and kyphoplasty cement at L5. Fleischner guidelines were followed. Electronically signed by: Zane Waters MD 02/19/2024 08:33 PM [facility] Assessment and Plan (1) ESRD (end stage renal disease) on dialysis: Status: Acute (2) Adult failure to thrive: Status: Acute Plan This is a 73-year-old female with pertinent history of ESRD on dialysis (Friday/Friday/), atrial fibrillation not on anticoagulation, COPD not on home oxygen, gastroesophageal reflux disease, thyroid cancer status post radiation therapy, status post TAVR, coronary artery disease, cirrhosis status post liver transplant, gout, mood disorder, hypothyroidism, recent admission for UTI/diverticulitis, discharged on 02/16 who returns with generalized weakness generalized weakness PT -. STR recommended elevated trop ekg with no acute changes, no chest pain likely decreased clearance due to renal dz tele monitoring leukocytosis no obvious source of infection identified ? reactive does not make much urine, unable to get urine sample thus far but no urinary symptoms CT AP unremarkable, chest x-ray unremarkable follow CBC ESRD on hemodialysis: no uremia, hyperkalemia or hypoxia, no indication for urgent HD plan to continue HD on regular , , schedule Nephrology following Paroxysmal atrial fibrillation: Continue metoprolol Not on anticoagulation COPD: not on baseline oxygen Continue home inhaler. No exacerbation Gastroesophageal reflux disease: famotidine Coronary artery disease: aspirin and statin Status post liver transplant: continue tacrolimus hypothyroidism documented as non-compliant with meds continue Synthroid chronic abdominal wounds, POA continue local wound care Mood Continue baseline meds dvt ppx - mehcanical due to heparin allergy Quality Stroke Does the patient have a stroke diagnosis?: No VTE Prior VTE?: No VTE Risk Level:: Medical - moderate - high VTE Device Contraindication: N/A - Device Ordered VTE Drug Contraindication: Drug Allergy
--- NOTE | 2024-02-20 17:11 | MHC.CM.PN ---
IMM 02/19 at 1705. CM reviewed IMM and how to appeal hospital discharge if needed. Copy given and original to medical records. Pt aware that we are waiting for a bed assignment. She will have dialysis tomorrow morning. [facility]. CM will need to follow up with them on Friday. [facility] does not have a bed. Pt normally has outpatient HD at [facility] in [place] on T//Fri. Pt has services with [facility] and [facility]. Uses a walker and cane. HCP on file. THRIVE assessment positive. Adult failure to thrive. Pt has services. PT recommending STR. D/C plan: Awaiting placement with HD. Do not expect discharge this weekend. CM will follow for discharge needs.
[2024-02-20] MEDS: oxyCODONE HCl Immed Release 5 MG TABLET 2.5 MG PO (17:12)
[2024-02-20] MEDS: rOPINIRole HCL 0.5 MG TABLET PO (20:16)
[2024-02-20] MEDS: 0.9 % Sodium Chloride Flush 3 ML SYRINGE IVFLUSH (20:17)
[2024-02-20] MEDS: HYDROmorphone HCl 0.5 MG/0.5 ML SYRINGE IVPUSH (21:45)
[2024-02-21] VITALS (7 sets, daily range): BP systolic 93–138; BP diastolic 55–82; PULSE 67–97; RESP 17–20; TEMP 36.1–36.9; O2SAT 94–98
[2024-02-21] MEDS: ondansetron HCL 4 MG/2 ML VIAL IVPUSH (00:36)
[2024-02-21] MEDS: Morphine Sulfate 4 MG/ML CARTRIDGE IVPUSH (03:57)
--- NOTE | 2024-02-21 05:08 | HO.SKINPHOTO ---
[place] [place] Category: Stage: Length: 1.0cm Width: 1.0cm Depth: cm Location: Category: Stage: Length: Width: Depth: cm Location: Category: Stage: Length: Width: Depth: cm Location: Category: Stage: Length: Width: Depth: cm Location: Category: Stage: Length: Width: Depth: cm Location: Category: Stage: Length: Width: Depth: cm
--- NOTE | 2024-02-21 05:29 | HO.SKINPHOTO ---
Location: mid abdomen
--- NOTE | 2024-02-21 05:32 | HO.SKINPHOTO ---
Location: left side of abdomen Category: Stage:
[2024-02-21] MEDS: Levothyroxine Sodium 88 MCG TABLET PO (06:21)
[2024-02-21 08:05] LABS: Hematocrit 38.3 % (37.0-47.0); Hemoglobin 12.2 g/dl (12.0-16.0); Mean Corpuscular HGB Conc 31.9 g/dl (31.0-35.0); Mean Corpuscular Hemoglobin 29.8 pg (27.0-33.0); Mean Corpuscular Volume 93.4 fL (80.0-98.0); Mean Platelet Volume 10.4 fL (9.4-12.3); NRBC Pct Auto 0.1 /100WBC (0.0-0.2); Platelet Count 340 X10*3/uL (160-400); Red Cell Distribution Width 16.3 % (11.0-16.0); White Blood Count 16.5 X10*3/uL (4.8-10.8)
[2024-02-21 08:33] LABS: Anion Gap 21 (12-20); Blood Urea Nitrogen 40 mg/dL (9-16); Calcium 8.5 mg/dL (8.4-10.2); Carbon Dioxide 26 mmol/L (22-29); Chloride 94 mmol/L (96-108); Creatinine Clr Calc Pharmacy 4.6; Estimated Glomerular Filt Rate 4; Glucose Random 85 mg/dL (60-115); Potassium 5.5 mmol/L (3.3-5.1); Sodium 135 mmol/L (135-145)
--- NOTE | 2024-02-21 11:10 | HO.PM.IMPN ---
Subjective Subjective Date of Service: 02/21/24 Review of Systems Follow up ESRD Needs STR Physical Exam Vital Signs: Vital Signs: Last Vital Signs Temp 97.4 F 02/21/24 07:26 Pulse 67 02/21/24 07:26 Resp 18 02/21/24 07:26 BP 120/61 02/21/24 07:26 Pulse Ox 97 02/21/24 07:26 O2 Del Method Room Air 02/21/24 07:26 BMI result Body Mass Index 23.8 Appearing in no acute distress lung sounds are clear to auscultation heart regular rate rhythm, clear S1, S2 positive bowel sounds, abdomen is soft, nontender neuro patient is alert x3, no focal deficits Objective Data Active Medications Acetaminophen (Acetaminophen 325 Mg Tablet) 650 mg PO Q6H PRN PRN Reason: Pain, Mild (Pain Scale 1-3), fever or headache Albuterol Sulfate (Albuterol Sulfate 90 Mcg 8 Gm Inhaler) 1 puff INHALE Q6H PRN PRN Reason: wheezing Allopurinol (Allopurinol 100 Mg Tablet) 100 mg PO DAILY@1200 [facility] Last Admin: 02/20/24 11:59 Dose: 100 mg Documented By: ROOSEVELT Aspirin (Aspirin Enteric Coated 81 Mg Tablet.Dr) 81 mg PO DAILY@1200 [facility] Last Admin: 02/20/24 11:59 Dose: 81 mg Documented By: ROOSEVELT Atorvastatin Calcium (Atorvastatin Calcium 20 Mg Tablet) 20 mg PO DAILY [facility] Calcium Carbonate (Calcium Carbonate 750 Mg Tab.Chew) 750 mg PO Q4H PRN PRN Reason: Heartburn Famotidine (Famotidine 20 Mg Tablet) 20 mg PO BID@1200,2200 [facility] Last Admin: 02/20/24 20:16 Dose: 20 mg Documented By: ANDMARGARITA Folic Acid (Folic Acid 1 Mg Tablet) 1 mg PO DAILY@1200 [facility] Last Admin: 02/20/24 12:00 Dose: 1 mg Documented By: ROOSEVELT Hydroxyzine HCl (Hydroxyzine Hcl 25 Mg Tablet) 25 mg PO TID PRN PRN Reason: Itching Levothyroxine Sodium (Levothyroxine Sodium 88 Mcg Tablet) 88 mcg PO DAILY@0600 [facility] Last Admin: 02/21/24 06:21 Dose: 88 mcg Documented By: REMBERTO Metoprolol Tartrate (Metoprolol Tartrate 25 Mg Tablet) 25 mg PO BID@1200,2200 [facility]; Protocol Last Admin: 02/20/24 20:16 Dose: Not Given Documented By: REMBERTO Non-Admin Reason: Decreased Heart Rate Ondansetron HCl (Ondansetron Hcl 4 Mg/2 Ml Vial) 4 mg IVPUSH Q6H PRN PRN Reason: Nausea and Vomiting Last Admin: 02/21/24 00:36 Dose: 4 mg Documented By: REMBERTO Polyethylene Glycol (Polyethylene Glycol 3350 17 Gm Powd.Pack) 17 gm PO DAILY PRN PRN Reason: Constipation Ropinirole HCl (Ropinirole Hcl 0.5 Mg Tablet) 0.5 mg PO BEDTIME@2200 [facility] Last Admin: 02/20/24 20:16 Dose: 0.5 mg Documented By: REMBERTO Sodium Chloride (0.9 % Sodium Chloride Flush 3 Ml Syringe) 3 ml IVFLUSH QSHIFT [facility] Last Admin: 02/20/24 20:17 Dose: 3 ml Documented By: REMBERTO Tacrolimus (Tacrolimus 0.5 Mg Capsule) 0.5 mg PO BID@1200,2200 [facility] Last Admin: 02/20/24 20:16 Dose: 0.5 mg Documented By: REMBERTO Venlafaxine HCl (Venlafaxine Hcl 25 Mg Tablet) 25 mg PO DAILY@1200 [facility] Last Admin: 02/20/24 12:16 Dose: 25 mg Documented By: ROOSEVELT Vitamin D (Cholecalciferol (Vitamin D3) 25 Mcg Tablet) 50 mcg PO DAILY@1200 [facility] Last Admin: 02/20/24 12:00 Dose: 50 mcg Documented By: ROOSEVELT Labs 02/21/24 07:17 02/21/24 07:17 Labs: Laboratory Results - last 24 hr 02/20/24 02/21/24 11:10 07:17 MCV 93.4 MCH 29.8 MCHC 31.9 RDW 16.3 H Plt Count 340 MPV 10.4 Absolute Nucleated RBC 0.020 H Nucleated RBC % (auto) 0.1 Anion Gap 15 21 H Estim Creat Clear Calc 5.3 4.6 Estimated GFR 4 4 Random Glucose 169 H 85 Calcium 8.5 8.5 Phosphorus 2.5 L Magnesium 2.6 Assessment and Plan (1) Hallucinations, visual: Status: Acute Plan This is a 73-year-old female with pertinent history of ESRD on dialysis (Friday/Friday/), atrial fibrillation not on anticoagulation, COPD not on home oxygen, gastroesophageal reflux disease, thyroid cancer status post radiation therapy, status post TAVR, coronary artery disease, cirrhosis status post liver transplant, gout, mood disorder, hypothyroidism, recent admission for UTI/diverticulitis, discharged on 02/16 who returns with generalized weakness generalized weakness PT rec STR elevated trop ekg with no acute changes, no chest pain likely decreased clearance due to renal dz tele monitoring leukocytosis no obvious source of infection identified ? reactive does not make much urine, unable to get urine sample thus far but no urinary symptoms CT AP unremarkable, chest x-ray unremarkable follow CBC ESRD on hemodialysis no uremia, hyperkalemia or hypoxia, no indication for urgent HD plan to continue HD on regular , , schedule Nephrology following Paroxysmal atrial fibrillation: Continue metoprolol Not on anticoagulation COPD not on baseline oxygen Continue home inhaler. No exacerbation Gastroesophageal reflux disease famotidine Coronary artery disease aspirin and statin Status post liver transplan continue tacrolimus hypothyroidism documented as non-compliant with meds continue Synthroid chronic abdominal wounds, POA continue local wound care Mood Continue baseline meds dvt ppx - mehcanical due to heparin allergy Attending Dr. Henriquez Quality Stroke Does the patient have a stroke diagnosis?: No VTE Prior VTE?: No VTE Risk Level:: Medical - moderate - high VTE Device Contraindication: N/A - Device Ordered VTE Drug Contraindication: Drug Allergy
[2024-02-21] MEDS: Morphine Sulfate 2 MG/ML CARTRIDGE 1 MG IVPUSH (11:38)
[2024-02-21] MEDS: 0.9 % Sodium Chloride Flush 3 ML SYRINGE IVFLUSH ×2 (11:40→21:19)
[2024-02-21] MEDS: oxyCODONE HCl Immed Release 5 MG TABLET PO (12:51)
[2024-02-21] MEDS: Atorvastatin Calcium 20 MG TABLET PO (13:58)
[2024-02-21] MEDS: Aspirin Enteric Coated 81 MG TABLET.DR PO (13:58)
[2024-02-21] MEDS: Famotidine 20 MG TABLET PO ×2 (13:58→21:19)
[2024-02-21] MEDS: Folic Acid 1 MG TABLET PO (13:58)
[2024-02-21] MEDS: Metoprolol Tartrate 25 MG TABLET PO ×2 (13:58→21:19)
[2024-02-21] MEDS: Cholecalciferol (Vitamin D3) 25 MCG TABLET 50 MCG PO (13:58)
[2024-02-21] MEDS: Tacrolimus 0.5 MG CAPSULE PO ×2 (13:58→21:19)
[2024-02-21] MEDS: Venlafaxine HCL 25 MG TABLET PO (13:58)
[2024-02-21] MEDS: allopurinoL 100 MG TABLET PO (13:58)
[2024-02-21] MEDS: rOPINIRole HCL 0.5 MG TABLET PO (21:19)
[2024-02-21] MEDS: Morphine Sulfate 2 MG/ML CARTRIDGE IVPUSH (21:20)
[2024-02-22] VITALS (7 sets, daily range): BP systolic 92–128; BP diastolic 51–62; PULSE 55–64; RESP 16–20; TEMP 36.3–36.8; O2SAT 97–98
[2024-02-22] MEDS: Levothyroxine Sodium 88 MCG TABLET PO (05:12)
[2024-02-22] MEDS: Morphine Sulfate 2 MG/ML CARTRIDGE IVPUSH (05:12)
[2024-02-22] MEDS: Cholecalciferol (Vitamin D3) 25 MCG TABLET 50 MCG PO (09:12)
[2024-02-22] MEDS: Venlafaxine HCL 25 MG TABLET PO (09:12)
[2024-02-22] MEDS: Metoprolol Tartrate 25 MG TABLET PO ×2 (09:12→21:56)
[2024-02-22] MEDS: Folic Acid 1 MG TABLET PO (09:12)
[2024-02-22] MEDS: Aspirin Enteric Coated 81 MG TABLET.DR PO (09:12)
[2024-02-22] MEDS: allopurinoL 100 MG TABLET PO (09:12)
[2024-02-22] MEDS: Atorvastatin Calcium 20 MG TABLET PO (09:12)
[2024-02-22] MEDS: Famotidine 20 MG TABLET PO ×2 (09:13→22:02)
[2024-02-22] MEDS: 0.9 % Sodium Chloride Flush 3 ML SYRINGE IVFLUSH ×2 (09:13→17:10)
[2024-02-22] MEDS: Tacrolimus 0.5 MG CAPSULE PO ×2 (09:13→21:56)
--- NOTE | 2024-02-22 09:19 | P.PNIM_ITS ---
Subjective Subjective Date of Service: 02/22/24 Review of Systems Follow up ESRD neck and back pain Needs STR Physical Exam 2 Vital Signs: Vital Signs: Last Vital Signs Temp 97.4 F 02/22/24 07:47 Pulse 55 02/22/24 07:47 Resp 20 02/22/24 07:47 BP 111/58 L 02/22/24 07:47 Pulse Ox 97 02/22/24 07:47 O2 Del Method Room Air 02/22/24 07:47 BMI result Body Mass Index 23.8 Appearing in no acute distress lung sounds are clear to auscultation heart regular rate rhythm, clear S1, S2 positive bowel sounds, abdomen is soft, nontender neuro patient is alert x3, no focal deficits Objective Data Active Medications Acetaminophen (Acetaminophen 325 Mg Tablet) 650 mg PO Q6H PRN PRN Reason: Pain, Mild (Pain Scale 1-3), fever or headache Albuterol Sulfate (Albuterol Sulfate 90 Mcg 8 Gm Inhaler) 1 puff INHALE Q6H PRN PRN Reason: wheezing Allopurinol (Allopurinol 100 Mg Tablet) 100 mg PO DAILY@1200 [facility] Last Admin: 02/22/24 09:12 Dose: 100 mg Documented By: LEXUS Aspirin (Aspirin Enteric Coated 81 Mg Tablet.Dr) 81 mg PO DAILY@1200 [facility] Last Admin: 02/22/24 09:12 Dose: 81 mg Documented By: LEXUS Atorvastatin Calcium (Atorvastatin Calcium 20 Mg Tablet) 20 mg PO DAILY [facility] Last Admin: 02/22/24 09:12 Dose: 20 mg Documented By: LEXUS Calcium Carbonate (Calcium Carbonate 750 Mg Tab.Chew) 750 mg PO Q4H PRN PRN Reason: Heartburn Famotidine (Famotidine 20 Mg Tablet) 20 mg PO BID@1200,2200 [facility] Last Admin: 02/22/24 09:13 Dose: 20 mg Documented By: LEXUS Folic Acid (Folic Acid 1 Mg Tablet) 1 mg PO DAILY@1200 [facility] Last Admin: 02/22/24 09:12 Dose: 1 mg Documented By: LEXUS Hydroxyzine HCl (Hydroxyzine Hcl 25 Mg Tablet) 25 mg PO TID PRN PRN Reason: Itching Levothyroxine Sodium (Levothyroxine Sodium 88 Mcg Tablet) 88 mcg PO DAILY@0600 [facility] Last Admin: 02/22/24 05:12 Dose: 88 mcg Documented By: MARGA Lorazepam (Lorazepam 0.5 Mg Tablet) 0.25 mg PO Q8H PRN PRN Reason: Anxiety Metoprolol Tartrate (Metoprolol Tartrate 25 Mg Tablet) 25 mg PO BID@1200,2200 [facility]; Protocol Last Admin: 02/22/24 09:12 Dose: 25 mg Documented By: LEXUS Morphine Sulfate (Morphine Sulfate 2 Mg/Ml Cartridge) 2 mg IVPUSH Q6H PRN; Protocol PRN Reason: Pain, Severe (Pain Scale 7-10) Last Admin: 02/22/24 05:12 Dose: 2 mg Documented By: MARGA Ondansetron HCl (Ondansetron Hcl 4 Mg/2 Ml Vial) 4 mg IVPUSH Q6H PRN PRN Reason: Nausea and Vomiting Last Admin: 02/21/24 00:36 Dose: 4 mg Documented By: REMBERTO Oxycodone HCl (Oxycodone Hcl Immed Release 5 Mg Tablet) 5 mg PO Q6H PRN PRN Reason: Pain, Moderate(Pain Scale 4-6) Last Admin: 02/21/24 12:51 Dose: 5 mg Documented By: LEXUS Polyethylene Glycol (Polyethylene Glycol 3350 17 Gm Powd.Pack) 17 gm PO DAILY PRN PRN Reason: Constipation Ropinirole HCl (Ropinirole Hcl 0.5 Mg Tablet) 0.5 mg PO BEDTIME@2200 [facility] Last Admin: 02/21/24 21:19 Dose: 0.5 mg Documented By: MARGA Sodium Chloride (0.9 % Sodium Chloride Flush 3 Ml Syringe) 3 ml IVFLUSH [facility] Last Admin: 02/22/24 09:13 Dose: 3 ml Documented By: LEXUS Tacrolimus (Tacrolimus 0.5 Mg Capsule) 0.5 mg PO BID@1200,2200 [facility] Last Admin: 02/22/24 09:13 Dose: 0.5 mg Documented By: LEXUS Venlafaxine HCl (Venlafaxine Hcl 25 Mg Tablet) 25 mg PO DAILY@1200 [facility] Last Admin: 02/22/24 09:12 Dose: 25 mg Documented By: LEXUS Vitamin D (Cholecalciferol (Vitamin D3) 25 Mcg Tablet) 50 mcg PO DAILY@1200 [facility] Last Admin: 02/22/24 09:12 Dose: 50 mcg Documented By: LEXUS Labs 02/21/24 07:17 02/21/24 07:17 Assessment and Plan (1) Hallucinations, visual: Status: Acute Plan 73-year-old female with pertinent history of ESRD on dialysis (Friday/Friday/), atrial fibrillation not on anticoagulation, COPD not on home oxygen, gastroesophageal reflux disease, thyroid cancer status post radiation therapy, status post TAVR, coronary artery disease, cirrhosis status post liver transplant, gout, mood disorder, hypothyroidism, recent admission for UTI/diverticulitis, discharged on 02/16 who returned with generalized weakness Neck and back pain seems [facility] was on morphine, but seems to be making drowsy, stopped continue oxycodone and lidocaine patch generalized weakness PT rec STR elevated trop ekg with no acute changes, no chest pain likely decreased clearance due to renal dz tele monitoring leukocytosis no obvious source of infection identified ? reactive does not make much urine, unable to get urine sample thus far but no urinary symptoms CT AP unremarkable, chest x-ray unremarkable follow CBC ESRD on hemodialysis plan to continue HD on regular , , schedule Nephrology following Paroxysmal atrial fibrillation Continue metoprolol Not on anticoagulation COPD not on baseline oxygen Continue home inhaler. No exacerbation Gastroesophageal reflux disease famotidine Coronary artery disease aspirin and statin Status post liver transplan continue tacrolimus hypothyroidism documented as non-compliant with meds continue Synthroid chronic abdominal wounds, POA continue local wound care Mood Continue baseline meds dvt ppx - mechanical due to heparin allergy Attending Dr. Henriquez full code Quality Stroke Does the patient have a stroke diagnosis?: No VTE Prior VTE?: No VTE Risk Level:: Medical - moderate - high VTE Device Contraindication: N/A - Device Ordered VTE Drug Contraindication: Drug Allergy
[2024-02-22] MEDS: Lidocaine 4 % Patch ADH..PATCH 1 PATCH TRANSDERMA (09:30)
[2024-02-22 12:45] LABS: Anion Gap 18 (12-20); Blood Urea Nitrogen 21 mg/dL (9-16); Calcium 8.7 mg/dL (8.4-10.2); Carbon Dioxide 30 mmol/L (22-29); Chloride 93 mmol/L (96-108); Creatinine Clr Calc Pharmacy 7.6; Estimated Glomerular Filt Rate 7; Glucose Random 101 mg/dL (60-115); Potassium 4.6 mmol/L (3.3-5.1); Sodium 136 mmol/L (135-145)
[2024-02-22] MEDS: Ketorolac Tromethamine 15 MG/ML VIAL IVPUSH (18:05)
[2024-02-22] MEDS: rOPINIRole HCL 0.5 MG TABLET PO (21:56)
[2024-02-23] VITALS: BP 106/54; PULSE 55; RESP 20; TEMP 36.2; O2SAT 97
[2024-02-23] MEDS: Ketorolac Tromethamine 15 MG/ML VIAL IVPUSH ×2 (01:08→06:39)
[2024-02-23] MEDS: 0.9 % Sodium Chloride Flush 3 ML SYRINGE IVFLUSH ×2 (01:09→10:02)
[2024-02-23 04:00] VITALS: BP 124/76; PULSE 70; RESP 20; TEMP 36.6; O2SAT 96
[2024-02-23] MEDS: Levothyroxine Sodium 88 MCG TABLET PO (06:39)
[2024-02-23 07:13] VITALS: BP 117/59; PULSE 57; RESP 18; TEMP 36.5; O2SAT 96
[2024-02-23 07:22] LABS: Alanine Aminotransferase < 6 U/L (0-31); Albumin Level 2.5 g/dL (3.5-5.0); Alkaline Phosphatase 94 U/L (39-117); Aspartate Amino Transferase 33 U/L (5-31); Bilirubin Direct < 0.2 mg/dL (0.0-0.5); Bilirubin Total 0.2 mg/dL (0.0-1.0); Total Protein 5.8 g/dL (6.5-8.0)
--- NOTE | 2024-02-23 08:25 | PM.PNNEP ---
Subjective Subjective Date of Service: 02/23/24 Interval history: 73 y/o female with ESRD on HD (, , Fri). She is a patient of Dr Umanzor. 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 she has had multiple admissions recently, most recently discharged 02/16 for acute metabolic encephalopathy, acute diverticulitis. Nephrology consulted for ESRD and HD management reports she did not receive HD on , 02/18 did not feel well enough to go states her visiting nurse came to her home and felt she needed to return to the hospital, fatigue, failure to thrive, pt reports my house is a mess she reports her breathing is ok, reports feels slightly heavier as it is before she gets HD she reports some ongoing LLQ abdominal pain, states this has improved over time but still has some residual pain Denies other concerns, new symptoms 02/18 CT abd/pelvis: 1. A cause for the patient's left lower quadrant pain has not been found. There is diverticulosis without diverticulitis. 2. Incidental note made of a right inguinal hernia containing a loop of unobstructed small bowel. 3. The IMV is quite dilated with large collateral draining into the left ovarian vein as described above probably indicative of portal hypertension. 02/18 H&H 12.7 and 39.5 creatinine 8.97, BUN 30, potassium, calcium within normal limits. serum bicarb slightly elevated at 30 pt unable to get rehab placement today for HD tomorrow when she is due Physical Exam Vital Signs: Vital Signs: Last Vital Signs Temp 97.7 F 02/23/24 07:13 Pulse 57 02/23/24 07:13 Resp 18 02/23/24 07:13 BP 117/59 L 02/23/24 07:13 Pulse Ox 96 02/23/24 07:13 O2 Del Method Room Air 02/23/24 07:13 BMI result Body Mass Index 23.8 Objective Data Labs 02/23/24 08:56 02/23/24 08:56 Labs: Laboratory Results - last 24 hr 02/22/24 02/23/24 02/23/24 11:40 06:02 08:56 WBC 8.9 RBC 4.08 L Hgb 12.2 Hct 38.1 MCV 93.4 MCH 29.9 MCHC 32.0 RDW 15.9 Plt Count 314 MPV 10.3 Absolute Nucleated RBC 0.000 Nucleated RBC % (auto) 0.0 Sodium 136 132 L Potassium 4.6 4.4 Chloride 93 L 96 Carbon Dioxide 30 H 25 Anion Gap 18 15 BUN 21 H 28 H Creatinine 6.27 H* 7.44 H* Estim Creat Clear Calc 7.6 6.4 Estimated GFR 7 5 Random Glucose 101 79 Calcium 8.7 8.5 Total Bilirubin 0.2 Direct Bilirubin < 0.2 AST 33 H ALT < 6 Alkaline Phosphatase 94 Total Protein 5.8 L Albumin 2.5 L Procedures Date of Service Date of Service: 02/23/24 Assessment & Plan Assessment and plan (1) ESRD (end stage renal disease) on dialysis: Status: Acute (2) Adult failure to thrive: Status: Acute (3) Weakness: Status: Acute Plan 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 ~15 years ago) on HD here with weakness, failure to thrive needing safe disposition HD , , Fri schedule as she is outpatient, plan for HD today 02/22 (Friday) due to Holiday this - pt will get HD Friday and Friday at her facility ([facility]) no uremic symptoms pt appears euvolemic 02/22 H&H 12.2 and 38.1, no indication for procrit at this time potassium normal, not metabolically acidotic at this time calcium within normal limits sodium 132, likely dilution (just prior to HD) phosphorous 2.9, liberalize diet as tolerated has left upper extremity AV fistula with +bruit, +thrill oliguric at baseline (small amount every few days per pt) Will continue to follow Discussed with Dr Schilling Time Spent With Patient Time: Total time managing care of this patient today ____ minutes. Progress Note: Quality Stroke Does the patient have a stroke diagnosis?: No
[2024-02-23 09:44] LABS: Hematocrit 38.1 % (37.0-47.0); Hemoglobin 12.2 g/dl (12.0-16.0); Mean Corpuscular Hemoglobin 29.9 pg (27.0-33.0); Mean Corpuscular Volume 93.4 fL (80.0-98.0); Mean Platelet Volume 10.3 fL (9.4-12.3); Platelet Count 314 X10*3/uL (160-400); Red Blood Count 4.08 X10*6/uL (4.20-5.50); Red Cell Distribution Width 15.9 % (11.0-16.0); White Blood Count 8.9 X10*3/uL (4.8-10.8)
[2024-02-23] MEDS: Lidocaine 4 % Patch ADH..PATCH 1 PATCH TRANSDERMA (09:59)
[2024-02-23] MEDS: Atorvastatin Calcium 20 MG TABLET PO (09:59)
[2024-02-23 10:14] LABS: Anion Gap 15 (12-20); Blood Urea Nitrogen 28 mg/dL (9-16); Calcium 8.5 mg/dL (8.4-10.2); Carbon Dioxide 25 mmol/L (22-29); Chloride 96 mmol/L (96-108); Creatinine Clr Calc Pharmacy 6.4; Estimated Glomerular Filt Rate 5; Glucose Random 79 mg/dL (60-115); Potassium 4.4 mmol/L (3.3-5.1); Sodium 132 mmol/L (135-145)
--- NOTE | 2024-02-23 11:07 | PM.DS ---
DS: Providers Provider Date of Service: 02/23/24 Date of admission: 02/20/24 16:27 Date of discharge: 02/23/24 Primary care physician: Vanessa Hu MD Consults: 02/20/24 11:39 Consult to Nephrology Stat Consulting Provider: [facility] Reason for consultation: ESRD on HD T//Fri Attending physician on discharge: [facility] Discharging clinician: Natalie Fernandez DS: Diagnosis Discharge Diagnosis (1) ESRD (end stage renal disease) on dialysis: Status: Acute (2) Adult failure to thrive: Status: Acute (3) Weakness: Status: Acute DS: Summary Hospital Course Hospital Course: From H&P on the day of admission This is a 73-year-old female who was recently admitted for UTI and diverticulitis who returns the emergency department with weakness and shoulder pain. Patient was discharged home on the , finish course of antibiotics during her hospital stay. She returned to the emergency department yesterday with generalized weakness. She was evaluated by Physical therapy who recommended short-term rehab. Unfortunately she was unable to be placed in rehab and due to need for dialysis the plan was made to admit her to the hospital for further management. She currently denies any shortness of breath, fever, chills, diarrhea, cough. In the emergency department she was noted to have leukocytosis on arrival but no source of infection was identified. Chest x-ray and belly CT were unremarkable, unable to obtain urine sample even by straight catheterization per patient but she denies any urinary symptoms. Left shoulder pain present on previous admission, imaging c/w with chronic degenerative changes. She missed several dialysis sessions due to weakness and last went to HD on Friday. leukocytosis no obvious source of infection identified ? reactive. CT AP unremarkable, chest x-ray unremarkable, no urinary symptoms. leukocytosis resolve. has remained afebrile. ESRD on hemodialysis admitted for hemodialysis as the plan was for STR. She had HD over the weekend and on day of discharge, will plan for outpatient dialysis on Friday due to the upcoming holiday. For generalized weakness she was seen by Physical therapy who recommended short-term rehab. Patient has declined short-term rehab and has elected to return home with home services. chronic abdominal wounds, POA continue local wound care: Cleanse with NS, moist gauze, May shower and wash with soap and water instead. Apply skin prep to periwound. Cover Wound bed with Durafiber AG, Foam dressing. Change every other day to start. If drainage decreases consider every 3rd day change. elevated trop chronic, but slightly elevated compared to baseline. ekg with no acute changes appreciated, no chest pain. continued on baseline BB, ASA, statin. likely due to decreased clearance due to renal dz. no events on monitor hyperkalemia resolved with HD hyponatremia - will be treated with HD Time Attestation Discharge Coordination Time (in mins): 36 Quality: Safe Use of Opioids Does Pt have an Active Cancer Diagnosis on the Problem List?: No Quality: Stroke Does the patient have a stroke diagnosis?: No Physical Exam Vital Signs: Vital Signs: Last Vital Signs Temp 97.7 F 02/23/24 07:13 Pulse 57 02/23/24 07:13 Resp 18 02/23/24 07:13 BP 117/59 L 02/23/24 07:13 Pulse Ox 96 02/23/24 07:13 O2 Del Method Room Air 02/23/24 07:13 BMI result Body Mass Index 23.8 Const: General: cooperative, comfortable, no acute distress, alert and awake Nutritional Appearance: average body habitus Orientation/consciousness: No oriented to time and patient oriented x3 Resp: Effort & Inspection: normal respiratory effort, able to speak in complete sentences, no respiratory distress and no use of accessory muscles Auscultation: clear to auscultation bilaterally Skin: Other: two small abdominal wounds, left side nearly closed; right side minimal drainage on dressing. no surrounding erythema; appears to be healing well Neuro: General: No oriented to time, patient oriented x3, moves all extremities and CN's II-XI intact bilaterally Extrem: Other: LUE fistula with palpable thrill DS: Data Data Completed and Pending Completed studies during hospitalization [Text1]: Procedures Performance of Urinary Filtration, Intermittent, Less than 6 Hours Per Day (02/10/24) Supplement Left Inguinal Region with Synthetic Substitute, Open Approach (08/14/20) Labs on day of discharge: Laboratory Results - last 24 hr 02/22/24 02/23/24 02/23/24 11:40 06:02 08:56 WBC 8.9 RBC 4.08 L Hgb 12.2 Hct 38.1 MCV 93.4 MCH 29.9 MCHC 32.0 RDW 15.9 Plt Count 314 MPV 10.3 Absolute Nucleated RBC 0.000 Nucleated RBC % (auto) 0.0 Sodium 136 132 L Potassium 4.6 4.4 Chloride 93 L 96 Carbon Dioxide 30 H 25 Anion Gap 18 15 BUN 21 H 28 H Creatinine 6.27 H* 7.44 H* Estim Creat Clear Calc 7.6 6.4 Estimated GFR 7 5 Random Glucose 101 79 Calcium 8.7 8.5 Total Bilirubin 0.2 Direct Bilirubin < 0.2 AST 33 H ALT < 6 Alkaline Phosphatase 94 Total Protein 5.8 L Albumin 2.5 L Discharge Plan Discharge Anticipated Discharge Date/Time: 02/23/24 16:00 Patient Disposition: Home Health Service Discharge Diagnosis: ESRD on HD Referrals: [facility] [Outside] - 1 Week Vanessa Hu MD [Primary Care Provider] - 1 Week Discharge Medications: Continued venlafaxine 25 mg tablet 1 tab PO DAILY@1200 ropinirole 0.5 mg tablet 1 tab PO BEDTIME@2200 hydroxyzine HCl 25 mg tablet 1 tab PO TID PRN (Reason: Itching) cholecalciferol (vitamin D3) 50 mcg (2,000 unit) tablet 1 tab PO DAILY@1200 allopurinol 100 mg tablet 100 mg PO DAILY@1200 famotidine 20 mg tablet 1 tab PO BID@1200,2200 rosuvastatin 5 mg tablet 1 tab PO BEDTIME albuterol sulfate [Ventolin HFA] 90 mcg/actuation HFA aerosol inhaler 1 puff INHALATION Q6H PRN (Reason: wheezing) folic acid 1 mg tablet 1 mg PO DAILY@1200 metoprolol tartrate 25 mg tablet 25 mg PO BID@1200,2200 Protocol: Hold for SBP/HR < HOLD for SBP < : 90 HOLD for HR < : 60 levothyroxine 88 mcg tablet 88 mcg PO DAILY@0600 tacrolimus 0.5 mg capsule 0.5 mg PO BID@1200,2200 aspirin 81 mg tablet,delayed release (DR/EC) 81 mg PO DAILY@1200 Discharge Orders: Discharge Order (Routine); Ordered 02/23/24 Ordered By: Natalie Fernandez Activity on Discharge: As tolerated Stand Alone Forms: Patient Portal Discharge page Print Language: Maori Care Plan Goals: see below Health Concerns: ESRD on HD leukocytosis resolved Plan of Treatment: this week plan for HD on friday instead of and then resume regular schedule Last HD on day of discharge, 02/22 recommended STR but since you have declined rehab, vna and home PT will be set up recommend to schedule follow up appointment with PCP Assessment: see discharge summary
[2024-02-23 11:34] VITALS: BP 129/94
[2024-02-23] MEDS: Midodrine HCl 5 MG TABLET PO (11:34)
--- NOTE | 2024-02-23 12:38 | MHC.CM.PN ---
Per PA, Patient will be medically cleared for dc today to home, with services. A referral was made to [facility], who has been made aware of today's dc. CM met with Patient at bedside, in HD and addressed IMM with her, providing Patient with the original and a copy has been placed on the chart. Patient stated that she prefers to inform her family herself, regarding the dc plan.Patient will dc to home today at 4PM, via [facility] and [facility] auth # for transport is [id number].
--- NOTE | 2024-02-23 13:02 | W.MHC.F2F ---
Service Date Service Date: 02/23/24 Encounter Date of encounter: 02/23/24 Reasons for Services Signs and symptoms assessed: assisted for wound care, medication management Reason for assisted: CV/CP assess and/or care and wound care (Cleanse with NS, moist gauze, May shower and wash with soap and water instead. Apply skin prep to periwound. Cover Wound bed with Durafiber AG, Foam dressing. Change every other day to start. If drainage decreases consider every 3rd day change. ) Reason for physical therapy: home safety and mobility and therapeutic exercises Overseeing Care: Vanessa Hu Homebound: Leaving the home is medically contraindicated at this time without the asist of a device and/or another person due th the listed conditions above and below. Reason homebound: weakness related to hospital stay Certification: Based on the above findings, I certify that this patient is confined to the home and needs intermittent assisted care, physical therapy and/or speech therapy, or continues to need occupational therapy. The patient is under my care, and I have initiated the establishment of the plan of care. The patient will be followed by a physician who will periodically review the plan of care. Time Spent With Patient Time: Total time managing care of this patient today ____ minutes.
[2024-02-23] MEDS: Famotidine 20 MG TABLET PO (14:58)
[2024-02-23] MEDS: Tacrolimus 0.5 MG CAPSULE PO (14:58)
[2024-02-23] MEDS: Aspirin Enteric Coated 81 MG TABLET.DR PO (14:59)
[2024-02-23] MEDS: allopurinoL 100 MG TABLET PO (14:59)
[2024-02-23] MEDS: Folic Acid 1 MG TABLET PO (14:59)
[2024-02-23] MEDS: Cholecalciferol (Vitamin D3) 25 MCG TABLET 50 MCG PO (14:59)
[2024-02-23] MEDS: Venlafaxine HCL 25 MG TABLET PO (15:03)
[2024-02-23 15:07] VITALS: BP 114/61; PULSE 59; RESP 16; TEMP 36.2; O2SAT 99
[2024-02-23 15:23] VITALS: PULSE 57
== END 2024-02-23 17:13 | disposition home health service (06) | DRG 640 ==
LOC: HO.ED 02-20 15:01 → HO.EDOVER 02-20 16:27 → HO.IMC 02-20 17:19
PROVIDERS: Nurse Practitioner Acute Care; Physician Assistant; Physician Assistant Medical; Admitting Provider Physician Assistant Medical; Emergency Provider Internal Medicine; PCP Pediatrics; Visit Provider Physician Assistant Medical
DX: E87.5 Hyperkalemia (principal); N18.6 End stage renal disease; Z94.4 Liver transplant status; E03.9 Hypothyroidism, unspecified; I25.10 Atherosclerotic heart disease of native coronary artery without angina pectoris; F39 Unspecified mood [affective] disorder; I48.0 Paroxysmal atrial fibrillation; Z99.2 Dependence on renal dialysis; K21.9 Gastro-esophageal reflux disease without esophagitis; Z91.148 Patient's other noncompliance with medication regimen for other reason; Z91.158 Patient's noncompliance with renal dialysis for other reason; Z20.822 Contact with and (suspected) exposure to COVID-19; Z87.891 Personal history of nicotine dependence; Z85.850 Personal history of malignant neoplasm of thyroid; Z79.82 Long term (current) use of aspirin; Z79.621 Long term (current) use of calcineurin inhibitor; Z79.890 Hormone replacement therapy; Z79.899 Other long term (current) drug therapy
CPT/HCPCS: 0241U; 36415; 71045; 74177; 80048; 80053; 80076; 83735; 83880; 84100; 84484; 85025; 85027; 90999; 93005; 97116; 97162; 99222; 99285; J1171; J1885; J2060; J2270; J2405; Q9967

== ENCOUNTER → 2024-02-19 15:20 | Outpatient (BNV) | payer OTHER, SELFPAY | PROVIDERS: Emergency Provider Internal Medicine; PCP Pediatrics; Visit Provider Nurse Practitioner Family | DX: N18.6 End stage renal disease (principal); Z99.2 Dependence on renal dialysis; R62.7 Adult failure to thrive; Z91.158 Patient's noncompliance with renal dialysis for other reason; R53.1 Weakness | CPT/HCPCS: 90935; 99222 ==

== ENCOUNTER → 2024-02-19 16:13 | Outpatient (BNV) | payer OTHER, SELFPAY | PROVIDERS: Emergency Provider Internal Medicine; PCP Pediatrics; Visit Provider Internal Medicine Cardiovascular Disease | DX: R94.31 Abnormal electrocardiogram [ECG] [EKG] (principal) | CPT/HCPCS: 93010 ==

== ENCOUNTER → 2024-02-20 16:27 | Outpatient (BNV) | payer OTHER, SELFPAY | PROVIDERS: Admitting Provider Physician Assistant Medical; Emergency Provider Internal Medicine; PCP Pediatrics; Visit Provider Nurse Practitioner Acute Care | DX: R44.1 Visual hallucinations (principal); R62.7 Adult failure to thrive | CPT/HCPCS: 99223; 99232; G0180 ==

== ENCOUNTER 2024-03-11 03:56 | Inpatient (IN) | payer OTHER, SELFPAY ==
[2024-03-11] VITALS (7 sets, daily range): BP systolic 98–157; BP diastolic 46–80; PULSE 45–60; RESP 15–16; TEMP 37–37.3; O2SAT 94–100; BMI 22.1
--- NOTE | ~2024-03-11 | CT_ITS ---
EXAMINATION: CT ABDOMEN AND PELVIS WITHOUT CONTRAST CLINICAL INFORMATION: Left lower quadrant pain. Nausea. History of diverticulitis. COMPARISON: CT abdomen pelvis 02/19/2024. TECHNIQUE: Multidetector volumetric imaging was performed from the superior aspect of the liver through the pubic symphysis. Sagittal and coronal reformatted images were obtained on the technologist's workstation. This CT examination was performed using dose optimization techniques as appropriate, variously including the following: *Automated exposure control *Adjustment of mA and/or kV according to patient size (this includes techniques or standardized protocols for targeted exams where dose is matched to indication/reason for exam; i.e. extremities or head) *Use of iterative reconstruction technique DLP: 444 mGy-cm FINDINGS: LUNG BASES: The visualized lung bases are unremarkable. Partial visualization of a TAVR stent. LIVER, GALLBLADDER, AND BILIARY TREE: Again noted are multiple surgical clips in the region of the itz hepatis which may relate to prior liver transplantation as previously suggested on the comparison study of 02/19/2024. No focal parenchymal lesions of the liver. The gallbladder is absent. PANCREAS: Unremarkable. SPLEEN: Unremarkable. ADRENAL GLANDS: Unremarkable. KIDNEYS AND URETERS: Marked diffuse atrophy of the kiana kidneys is present. Bilateral rounded low density benign-appearing simple cyst warranting additional imaging follow-up are noted. Multiple punctate calcifications are present in association with the left and right kidneys may represent a combination of vascular calcifications or possible nephrolithiasis with discrete calculi measuring up to 4 mm in diameter. No hydronephrosis. No perinephric inflammatory changes. BLADDER: Decompressed GASTROINTESTINAL TRACT: Moderate sigmoid diverticulosis is noted. Central mural thickening is noted in the middle segment of the sigmoid colon and is associated with mild reticulation of the adjacent sigmoid mesenteric fat (series 7 image 50, series 3 image 55. No free intraperitoneal fluid collections are noted. No free intraperitoneal gas identified. Normal appearance of the appendix. No small bowel dilatation or mural thickening. Normal appearance of the stomach and duodenum. ABDOMINAL WALL: Right inguinal hernia containing fat is identified. No intestinal abdominal wall hernia is visualized. Right upper quadrant subcutaneous abdominal wall course reticular densities are present and have the appearance of chronic scar. LYMPH NODES: Normal. VASCULAR: Marked diffuse calcific atherosclerosis PELVIC VISCERA: The uterus is retroverted and atrophic. No adnexal lesions identified. OSSEOUS STRUCTURES: Partial visualization is made of an epidural electrode stimulation lead at the level of T9 along the dorsal aspect of the central canal. Annular leads extending towards the left gluteal region. Vertebral plasty cement is present in the L5 vertebral body which demonstrates approximately 50% loss of craniocaudal height within or deformity of the superior and inferior endplates unchanged in configuration compared with 02/19/2024. Anterior wedge deformity with 50% loss of craniocaudal height of L3 is unchanged compared with 02/19/2024. Focal lordotic deformity of the superior endplate of L1 is unchanged compared with 02/19/2024. CT/CT abdomen pelvis wo IV con IMPRESSION: 1. Findings suspicious for mild acute uncomplicated diverticulitis of the middle segment of the sigmoid colon. Mild focal inflammatory changes of the middle segment of the sigmoid mesentery are present adjacent to an area of focal asymmetric mural thickening of the sigmoid colon, suspicious for uncomplicated diverticulitis. No free intraperitoneal fluid collections or free intraperitoneal gas. Moderate sigmoid diverticulosis. 2. Marked diffuse calcific atherosclerosis. 3. Marked diffuse renal atrophy unchanged compared with 02/19/2024. Bilateral nonobstructing nephrolithiasis. 4. Chronic multilevel compression deformities of the lumbar spine unchanged compared with 02/19/2024. Electronically signed by: Markos Bazan MD 03/11/2024 05:28 AM ADRIANA
--- NOTE | 2024-03-11 03:58 | ECG_ITS ---
Test Reason : MICHELLE Blood Pressure : / mmHG Vent. Rate : 058 BPM Atrial Rate : 058 BPM P-R Int : 240 ms QRS Dur : 106 ms QT Int : 470 ms P-R-T Axes : 054 085 000 degrees QTc Int : 461 ms Sinus bradycardia with 1st degree A-V block Septal infarct (cited on or before 02-FEB-2021) Abnormal ECG When compared with ECG of 19-FEB-2024 16:35, QRS axis Shifted right Serial changes of Septal infarct Present Referred By: Jessica Neal Electronically Signed By:JACKIE KING MD
--- NOTE | 2024-03-11 04:38 | ED.ABDPAIN ---
HPI - Abdominal Pain General Chief Complaint: Abdominal Pain Stated Complaint: Ab & back pain Time Seen by Provider: 03/11/24 04:04 Source: patient, EMS and old records reviewed Mode of arrival: EMS Limitations: no limitations History of Present Illness ED Provider: MAGNO PINTO narrative: 73 yo female with PMH of NSTEMI, PAF, ESRD on HD T Th S, UTI, AMS, liver transplant, s/p TAVR, angina, metabolic encephalopathy, hypothyroidism, HLD here with c/o 3 days of LLQ abdominal pain and loose stool but not diarrhea with mild nausea. She denies fevers. She denies blood in stool. She thinks she has diverticulitis again. Pain has been constant and dull ache in LLQ. Made worse with movements MD elicited complaint: abdominal pain Pertinent past history: diverticulitis Onset (ago): day(s) (3) Pain Consistency: constant Location: LLQ Severity: mild Quality: aching Radiation: none Migration to: no migration Exacerbating factors: movement Relieving factors: nothing Context: history of similar episodes Associated symptoms: nausea Related Data Home Medications ?Medication ?Instructions ?Recorded ?Confirmed aspirin 81 mg tablet,delayed 81 mg PO DAILY@1200 01/26/20 02/20/24 release allopurinol 100 mg tablet 100 mg PO DAILY@1200 03/08/20 02/20/24 cholecalciferol (vitamin D3) 50 1 tab PO DAILY@1200 08/14/20 02/20/24 mcg (2,000 unit) tablet hydroxyzine HCl 25 mg tablet 1 tab PO TID PRN Itching 08/14/20 02/20/24 ropinirole 0.5 mg tablet 1 tab PO BEDTIME@2200 08/14/20 02/20/24 venlafaxine 25 mg tablet 1 tab PO DAILY@1200 08/14/20 02/20/24 famotidine 20 mg tablet 1 tab PO BID@1200,2200 01/14/22 02/20/24 rosuvastatin 5 mg tablet 1 tab PO BEDTIME 01/14/22 02/20/24 levothyroxine 88 mcg tablet 88 mcg PO DAILY@0600 01/20/23 02/20/24 albuterol sulfate 90 mcg/actuation 1 puff inhalation Q6H PRN wheezing 06/09/23 02/20/24 aerosol inhaler (Ventolin HFA) tacrolimus 0.5 mg capsule, 0.5 mg PO BID@1200,2200 07/15/23 02/20/24 immediate-release folic acid 1 mg tablet 1 mg PO DAILY@1200 02/04/24 02/20/24 metoprolol tartrate 25 mg tablet 25 mg PO BID@1200,2200 02/04/24 02/20/24 Allergies Allergy/AdvReac Type Severity Reaction Status Date / Time Sulfa (Sulfonamide Allergy Intermediate HIVES Verified 03/11/24 04:57 Antibiotics) Heparin Analogues Allergy Unknown UNKNOWN Verified 03/11/24 04:57 [Heparin Agents] verapamil Allergy Unknown unknown Verified 03/11/24 04:57 Review of Systems Review of Systems Constitutional : No Weight loss, No Fever, No Chills ENT/Mouth : No sore throat, No Rhinorrhea Eyes: No Swelling, No Redness Cardiovascular : No Chest Pain, No SOB, NoEdema Respiratory : No Cough, No Sputum, No Wheezing Gastrointestinal : Positive Nausea, no Vomiting, no Diarrhea, positive abdominal Pain, No Hematochezia, No Melena Genitourinary : No Dysuria, No Urinary Frequency, No Hematuria, No Urgency Musculoskeletal : No joint pain, No Myalgias, No Joint Swelling Skin : No Skin Lesions, No rash Neuro : No Weakness, No Numbness, No Dizziness, No Headache All other systems reviewed and are negative. [facility] Past Medical History Attestation statement: The following information was validated with the patient. Source: old records reviewed Medical History ESRD (end stage renal disease) on dialysis Congestive heart failure Patient on waiting list for kidney transplant Gout History of transcatheter aortic valve replacement (TAVR) History of blood transfusion GERD (gastroesophageal reflux disease) Anxiety and depression AV fistula Hemodialysis patient COVID-19 vaccine series completed Murmur Hyperkalemia Left inguinal hernia DJD (degenerative joint disease) of thoracic spine Neuropathy End-stage renal disease (ESRD) COPD (chronic obstructive pulmonary disease) Coronary artery disease Bronchitis Asthma Arthritis Anemia Cirrhosis Surgical History Hx of colonoscopy History of liver transplant History of surgery on arm Social History Social History Household Members: None Housing: Apartment Are you a primary acute care nursing assistant to a significant other at home: No Do you presently have visiting nurse or other home services: No Unable to assess alcohol history related to: Unable to respond Alcohol intake: never Comment: pt refused bed alarm Patient Tobacco Use Status: Former Tobacco user Tobacco use type: Cigarette Cigarette Packs Per Day: 2 Cigarettes Per Day: 40.0 Years Smoked: 25 Smoked in Last 30 Days: No e-Cigarette/Vaping Use: Never Used Second Hand Smoke Exposure: No Use of substances other than those prescribed or required for medical reasons: No Advance Directives: Yes Advance Directives on File: Yes Advance Directives Date on File: 03/08/20 service: No Current occupational status: retired Physical Exam ED Vital Signs: Vital Signs - 24 hr 03/11/24 04:13 Temperature 98.7 F Pulse Rate 56 Respiratory Rate 16 Blood Pressure 157/64 H Pulse Oximetry 100 Oxygen Delivery Method Room Air BMI result Body Mass Index 22.1 Appearance: Alert. Oriented X3. No acute distress. Eyes: Pupils equal, round and reactive to light. ENT: Pharynx normal. Neck: Normal inspection. Neck supple. CVS: Normal heart rate and rhythm. Pulses normal. Respiratory: No respiratory distress. Breath sounds normal. Abdomen: Soft and moderate ttp in LLQ no rebound Skin: Skin warm and dry. dark tanned skin color. Normal skin turgor. Extremities: No lower extremity edema. Neuro: Oriented X 3. No motor deficit. No sensory deficit. Course Course Course Narrative: no SIRS criteria renal dis is chronic and not related to infection or severe sepsis IV ceftriaxone and flagyl ordered - has no signs of sepsis Medical Decision Making Medical Decision Making MDM Narrative: 73 yo female with PMH of NSTEMI, PAF, ESRD on HD T S, liver transplant, UTI, AMS, s/p TAVR, angina, metabolic encephalopathy, hypothyroidism, HLD here with c/o LLQ pain nausea and change in stools - no bleeding at this time will obtain basic labs, CT scan for SBO, diverticulitis, renal colic. IV morphine for pain Differential Diagnosis Differential Diagnoses: The differential diagnosis associated with the presentation includes SBO, diverticulitis, renal colic. Admission/Observation Consideration of admission/observation: Escalation of care including admission/observation considered states she is too weak and nauseated to go home - IV antibiotics ordered hospitalist to admit Consult Healthcare Provider Management of the patient was discussed with: Hospitalist (will admit notified [id number]) Lab Data MDM Lab Attestation statement: I reviewed the patient's lab results. 03/11/24 05:05 03/11/24 05:05 Labs: Lab Results 03/11/24 Range/Units 05:05 WBC 9.4 (4.8-10.8) X10*3/uL RBC 3.69 L (4.20-5.50) X10*6/uL Hgb 11.0 L (12.0-16.0) g/dl Hct 34.4 L (37.0-47.0) % MCV 93.2 (80.0-98.0) fL MCH 29.8 (27.0-33.0) pg MCHC 32.0 (31.0-35.0) g/dl RDW 15.7 (11.0-16.0) % Plt Count 243 (160-400) X10*3/uL MPV 10.6 (9.4-12.3) fL Immature Gran % (Auto) 0.4 (0.0-0.4) % Neut % (Auto) 68.1 (45-73) % Lymph % (Auto) 17.5 L (20-40) % Martin % (Auto) 9.9 (2-11) % Eos % (Auto) 3.5 (0-4) % Baso % (Auto) 0.6 (0-2) % Lymph # (Auto) 1.6 (1.2-4.9) X10*3/uL Martin # (Auto) 0.9 (0.1-1.2) X10*3/uL Eos # (Auto) 0.3 (0.0-0.4) X10*3/uL Baso # (Auto) 0.1 (0.0-0.2) X10*3/uL Abs Immat Gran (auto) 0.04 H (0.00-0.03) X10*3/uL Absolute Neuts (auto) 6.4 (2.0-8.3) x10*3/uL Absolute Nucleated RBC 0.000 (0.0-0.012) X10*3/uL Nucleated RBC % (auto) 0.0 (0.0-0.2) /100WBC Sodium 140 (135-145) mmol/L Potassium 4.9 (3.3-5.1) mmol/L Chloride 102 (96-108) mmol/L Carbon Dioxide 28 (22-29) mmol/L Anion Gap 15 (12-20) BUN 35 H (9-16) mg/dL Creatinine 5.77 H* (0.5-1.4) mg/dL Estim Creat Clear Calc 8.8 Estimated GFR 7 Random Glucose 77 (60-115) mg/dL Calcium 9.9 D (8.4-10.2) mg/dL Magnesium 2.5 (1.6-2.6) mg/dL Total Bilirubin 0.4 (0.0-1.0) mg/dL Direct Bilirubin 0.2 (0.0-0.5) mg/dL AST 27 (5-31) U/L ALT 12 (0-31) U/L Alkaline Phosphatase 85 (39-117) U/L Troponin I High Sens 17.5 H D (<3.5-17.0) ng/L Total Protein 6.8 (6.5-8.0) g/dL Albumin 3.0 L (3.5-5.0) g/dL Lipase 33 (8-78) U/L Independent Interpretation I performed an independent interpretation of an: EKG and CT Scan (mild diverticulitis) Interpretation: Rate: 58 Rhythm: SB with 1st degree AVB [place]: normal Normal P waves. Normal [place]. Normal QRS complex. ST T wave : no MARIA E, inverted t waves III and V1 qTC: 461 prior studies: no acute ischemia The study has been interpreted contemporaneously by me. . Radiology Impression Discussion of test interpretation with radiology: I have reviewed the radiologist's reading. Independent Historian Clinical information obtained from an independent historian. History obtained from or confirmed by: EMS External Record Review External record reviewed: Inpatient record and Outpatient record Medications Administered Discontinued Medications Generic Name Dose Route Start Last Admin Trade Name Freq PRN Reason Stop Dose Admin Morphine Sulfate 4 mg 03/11/24 04:16 03/11/24 05:11 Morphine Sulfate 4 Mg/Ml Cartridge IVPUSH 03/11/24 04:17 4 mg ONCE ONE Administration Protocol Ondansetron HCl 4 mg 03/11/24 04:16 03/11/24 05:11 Ondansetron Hcl 4 Mg/2 Ml Vial IVPUSH 03/11/24 04:17 4 mg ONCE ONE Administration Discharge Plan Discharge Clinical Impression: Diverticulitis Abdominal pain Qualifiers: Abdominal location: left lower quadrant Qualified Code(s): R10.32 - Left lower quadrant pain Nausea & vomiting Qualifiers: Vomiting type: unspecified Qualified Code(s): R11.2 - Nausea with vomiting, unspecified Patient Disposition: Admitted As Inpatient Print Language: Korean
--- OUTSIDE RECORDS SUMMARY | 2024-03-11 05:03 | XMS_ITS | Data Portability ---
Author Organization [employer] Address [address] [place] [address] Care Team Providers Care Proof Technician Name Role Phone MAYLIN HDZ Primary Care Provider [phone] HIM CCA OTHER Assessment Encounter Date Assessment Date Assessment LastModified by Organization Details LastModified Time 01/19/2024 01/19/2024 I provided real -time medical direction via phone for this encounter, and was available for additional phone based assistance as needed. I have reviewed and agree with the Assessment and Plan as documented by the Adobe Flex Developer. We discussed the diagnostic uncertainty of home visits and the risk associated with this. In this case the patient and I felt this to be an acceptable and reasonable amount of risk given the benefit of avoiding an ED visit at this time, but advise she has to have a low threshold to go in-Red flags reviewed as below and advised follow-up with her transplant surgeon as soon as possible. The patient given the opportunity to ask questions. Advised if develops CP/severe SOB/turning blue/increasing abdominal pain uncontrolled n/v/d / AMS/ syncope/ any fever to call 911- verbalized understanding of instructions [email or web address] Not available 01/19/2024 14:40:17 01/22/2024 01/22/2024 As noted, we were called to see this patient regarding concerns of rash.Evaluation in the field was performed by my registered diet technician colleague, as noted above, I provided real-time direction and supervision for this visit. Pt is a 73 F w hx of liver transplant, on tacrolimus, ESRD, chronic abd wall fistula, initially evaluated 01/18 for abd wall redness and pain, started on doxycycline for presumed cellulitis. On that same day developed itchy papular rash on face and extremities, no mucosal lesions, no open lesions. she is not sure if she has had doxy before. denies sun exposure. reviewed image of abdomen, largely unchanged focal area of redness. no features of sepsis, no purulence or drainage. abd redness hurts when she puts pants on but otherwise not very painful. Impression: doxycycline rash Plan: dc doxycycline, benadryl prn, switch to keflex Primary care, consider nonemergent abd imaging as necessary Disposition: We discussed the diagnostic uncertainty of home visits and the risk associated with this. In this case, the patient and I felt this to be an acceptable and reasonable amount of risk given the benefit of avoiding an ED visit. We discussed the need to seek care urgently/emergen tly in the setting of any new or worsening serious symptoms, particularly ___ OR We discussed the situation and I recommended referral to the emergency department. This was based on Not available 01/22/2024 13:21:38 02/19/2024 02/19/2024 I have reviewed and agree with the Assessment and Plan as documented by the Adobe Flex Developer. I provided real-time medical direction via phone for this encounter, and was available for additional phone based assistance as needed. I would add/emphasize: Patient reportedly discharged from hospital where rehab due to poor functional status was recommended but patient declined. Now unable to get to dialysis, severe pain, and hypotension. TO ED for further eval and consideration of rehab placement pallfather Not available 02/20/2024 14:27:45 Plan of Treatment Reminders Order Date Submit Date Provider Last Modified By Organization Details Last Modified Time Details Appointments None recorded. Lab None recorded. Referral None recorded. Procedures None recorded. Surgeries None recorded. Imaging None recorded. Medication Orders doxycycline hyclate 100 mg capsule 2023 [facility], [address] [place] [address], [place], [place], [id number], 09:33:49 ceftriaxone 1 gram solution for injection 2023 [email or web address] 0 Not available 14:37:54 doxycycline hyclate 100 mg tablet 2023 [email or web address] 0 Not available 14:37:54 Benadryl 25 mg capsule 2023 [facility], [address] [place] [address], [id number], 13:31:29 diphenhydra mine 25 mg tablet 2023 024 [email or web address] [facility], [address] [place], [place], [id number], 17:58:06 cephalexin 500 mg capsule 2023 024 [facility], [address] [place] [address], [id number], 13:22:49 Patient TargetsNo targets recorded. Patient InstructionsNo instructions recorded. Reason for Referral None Reported. Medical Equipment None Reported. Allergies Allergen ID Allergen Name Allergen Category Reaction Reaction Severity Criticality Documentation Date Start Date Code Code System Note Provider Name and Address Organization Details Recorded Time 5648 Bactrim medicatio n hives Not available Not available 10/24/2023 [id number] RxNorm AROLDO DUTTA MD [address] [place] [address],[address], [place], [address] [place] [address] - [facility] 14:26:29 6672 heparin medicatio n Not available Not available Not available 01/19/2024 5224 RxNorm Not Available [facility] - production 12:50:18 6721 doxycycli ne Not available Not available Not available Not available 01/22/2024 3640 RxNorm Not Available [facility] - production 12:50:18 Medications Name Sig Start Date Stop Date Status Note LastModified by Organization Details LastModified Time eq allergy tab TAKE 1 TABLET BY MOUTH ONCE DAILY FOR 10 DAYS active Not Available Not Available No t Available eql allergy tab 25mg active Not Available Not Available Not Available medbox status USE DIRECTED active Not Available Not Available No t Available cyclobenzapr ine 10 mg tablet TAKE 1 TABLET BY MOUTH THREE TIMES DAILY NEEDED FOR MUSCLE PAIN/SPASMS active Not Available Not Available Not Available Anti-Diarrhe al (loperamide) 2 mg tablet TAKE 2 TABLETS 4 MG) BY ANTONIO AFTER 1ST LOOSE STOOL AND 1 TABLET 2 MG) AFTER EACH NEXT BOWEL MOVEMENT; DO NOT EXCEED 8 TABLETS 16MG) IN active Not Available Not Available No t Available furosemide 40 mg tablet TAKE 3 TABLETS BY MOUTH ON FRIDAY, FRIDAY, FRIDAY AND FRIDAY active Not Available Not Available N ot Available hydrocortiso ne 0.5 % topical cream APPLY ONE APPLICATION EXTERNAL TWICE A DAY TO THE AFFECTED AREA(S) active Not Available Not Available No t Available doxycycline hyclate 100 mg capsule TAKE ONE CAPSULE TWICE DAILY UNTIL FINISHED active Not Available Not Available No t Available albuterol sulfate 2.5 mg/3 mL (0.083 %) solution for nebulization USE 1 VIAL IN NEBULIZER EVERY 6 HOURS NEEDED FOR WHEEZING active Not Available Not Available No t Available loperamide 2 mg capsule TAKE 1 TO 2 CAPSULES in the morning, at noon, in the evening, and at bedtime NEEDED FOR DIARRHEA active Not Available Not Available No t Available polyethylene glycol 3350 17 gram oral powder packet DISSOLVE 1 PACKET (17 GRAMS) IN BEVERAGE AND DRINK BY MOUTH TWICE DAILY active Not Available Not Available Not Available azithromycin 250 mg tablet TAKE 2 TABLETS BY MOUTH ON DAY 1, AND THEN TAKE 1 TABLET BY MOUTH ONCE A DAY ON DAY 2 THROUGH DAY 5 active Not Available Not Available No t Available cephalexin 250 mg capsule TAKE 1 CAPSULE BY MOUTH EVERY DAY FOR 7 DAYS active Not Available Not Available No t Available venlafaxine 25 mg tablet TAKE ONE TABLET BY MOUTH AT NOON WITH FOOD active Not Available Not Available No t Available ondansetron HCl 4 mg tablet TAKE ONE TABLET BY MOUTH EVERY 8 HOURS NEEDED FOR VOMITING active Not Available Not Available No t Available fluorouracil 5 % topical cream APPLY TOPICALLY TO ROUGH SPOTS ON BACKS OF HANDS AND ARMS FOR 4 WEEKS active Not Available Not Available No t Available clonazepam 1 mg tablet TAKE 1 TABLET BY MOUTH ONCE DAILY NEEDED FOR PANIC ATTACKS active Not Available Not Available No t Available midodrine 5 mg tablet TAKE 1 TABLET BY MOUTH THREE TIMES A WEEK ON THE MORNING OF DIALYSIS ONLY active Not Available Not Available No t Available bacitracin 500 unit/gram topical ointment USE TOPICALLY TWO TIMES A DAY ON AFFECTED AREA active Not Available Not Available No t Available metronidazol e 500 mg tablet TAKE 1 TABLET BY MOUTH THREE TIMES DAILY WITH MEALS OR FOOD TO REDUCE STOMACH UPSET active Not Available Not Available No t Available allopurinol 100 mg tablet TAKE ONE TABLET BY MOUTH AT NOON active Not Available Not Available No t Available ciprofloxaci n 500 mg tablet TAKE 1 TABLET BY MOUTH TWICE DAILY active Not Available Not Available No t Available aspirin 81 mg tablet,delay ed release TAKE ONE TABLET BY MOUTH AT NOON active Not Available Not Available No t Available levothyroxin e 100 mcg tablet TAKE 1 TABLET DAILY EXCEPT ON SUNDAYS TAKE 1/2 TABLET active Not Available Not Available No t Available levothyroxin e 88 mcg tablet TAKE ONE TABLET BY MOUTH EVERY MORNING active Not Available Not Available No t Available ceftriaxone 1 gram solution for injection Take 1 g by injection route. 2023 active Not Available Not Available Not Avai lable famotidine 20 mg tablet TAKE ONE TABLET TWICE DAILY active Not Available Not Available Not Available prednisolone acetate 1 % eye drops,suspen claudia INSTILL 1 DROP INTO SURGICAL EYE 4 TIMES DAILY FOR 4 DAYS. BRING MEDICATION UNOPENED TO SURGERY active Not Available Not Available No t Available triamcinolon e acetonide 0.1 % dental paste USE TOPICALLY IN THE MOUTH OR THROAT 2 TIMES DAILY DIRECTED BY THE PRESCRIBER active Not Available Not Available N ot Available benzonatate 100 mg capsule TAKE 1 CAPSULE BY MOUTH THREE TIMES DAILY IN THE MORNING,AT NOON, AND AT BEDTIME NEEDED FOR COUGH active Not Available Not Available No t Available hydrocortiso ne 1 % topical cream APPLY BY TOPICAL ROUTE 2 TIMES A DAY TO THE AFFECTED AREA(S) active Not Available Not Available No t Available cephalexin 500 mg capsule Take 1 capsule every 6 hours by oral route. active Not Available Not Available Not Available diphenhydram ine 25 mg capsule Take 1 capsule every 4 hours by oral route as needed, for itchiness. active Not Available Not Available N ot Available ropinirole 0.5 mg tablet TAKE ONE TABLET EVERY NIGHT AT BEDTIME ONE TO THREE HOURS BEFORE BEDTIME active Not Available Not Available No t Available nystatin 100,000 unit/gram topical cream APPLY CREAM TOPICALLY TWICE DAILY FOR 14 DAYS active Not Available Not Available Not Available diphenhydram ine 25 mg tablet Take 2 tablets by oral route. 2023 active Not Available Not Available Not Avai lable lidocaine 5 % topical patch APPLY 1 PATCH TOPICALLY IN THE MORNING . REMOVE AND DISCARD PATCH WITHIN 12 HOURS OR DIRECTED BY MD. active Not Available Not Available No t Available docusate sodium 100 mg capsule TAKE 1 CAPSULE BY MOUTH TWICE DAILY active Not Available Not Available No t Available folic acid 1 mg tablet TAKE ONE TABLET BY MOUTH AT NOON active Not Available Not Available No t Available hydrocortiso ne 2.5 % topical cream APPLY 1 APPLICATION TOPICALLY 2 TIMES A DAY NEEDED FOR SKIN IRRITATION. active Not Available Not Available Not Available hydroxyzine HCl 25 mg tablet TAKE ONE TABLET EVERY 8 HOURS NEEDED FOR ITCHING OR FOR ANXIETY active Not Available Not Available Not Available mometasone 0.1 % topical ointment MIX 1:1 RATIO WITH MUPIROCIN OINTMENT AND APPLY TO ABDOMINAL ULCERS DAILY FOR 4 WEEKS WITH BANDAGE CHANGES DIRECTED active Not Available Not Available No t Available mupirocin 2 % topical ointment APPLY TOPICALLY TO OPEN WOUNDS ONCE DAILY OR WITH EACH DRESSING CHANGE active Not Available Not Available No t Available alclometason e 0.05 % topical ointment APPLY TO AFFECTED AREAS OF BODY UP TO TWO TIMES A DAY, AND TAPER WITH IMPOVEMENT. active Not Available Not Available Not Available estradiol 0.01% (0.1 mg/gram) vaginal cream APPLY 1 GRAM INTRAVAGINA LLY DAILY FOR 2 WEEKS, THEN ONCE WEEKLY THEREAFTER active Not Available Not Available N ot Available sodium polystyrene sulfonate oral powder TAKE 15 GRAMS ORALLY 3 TIMES A WEEK FOR HYPER KALEMIA; USE THIS 3 TIMES A WEEK ON NON-DIALYSI S DAYS. active Not Available Not Available No t Available fluticasone propionate 50 mcg/actuatio n nasal spray,suspen claudia USE 1 TO 2 SPRAY(S) IN EACH NOSTRIL ONCE DAILY. SHAKE GENTLY BEFORE FIRST USE, PRIME PUMP. AFTER USE, CLEAN TIP AND REPLACE CAP. active Not Available Not Available No t Available tacrolimus 1 mg capsule, immediate-re lease TAKE 1 CAPSULE BY MOUTH IN THE MORNING AND 1 IN THE EVENING active Not Available Not Available Not Available doxycycline hyclate 100 mg tablet Take 1 tablet by oral route. 2023 active Not Available Not Available Not Avai lable amoxicillin 500 mg-potassium clavulanate 125 mg tablet TAKE 1 TABLET BY MOUTH EVERY 12 HOURS active Not Available Not Available No t Available tacrolimus 0.5 mg capsule, immediate-re lease TAKE ONE CAPSULE TWICE DAILY AT NOON AND BEDTIME active Not Available Not Available No t Available Ventolin HFA 90 mcg/actuatio n aerosol inhaler INHALE 1 PUFF BY MOUTH EVERY 6 HOURS NEEDED FOR WHEEZING active Not Available Not Available No t Available oxycodone 5 mg tablet TAKE ONE TABLET BY MOUTH TWICE DAILY IN THE MORNING AND AT BEDTIME NEEDED FOR SEVERE PAIN active Not Available Not Available Not Available calcium 200 mg (as calcium citrate 950 mg) tablet TAKE TWO TABLETS BY MOUTH TWICE DAILY AT NOON AND BEDTIME active Not Available Not Available No t Available cyclobenzapr ine 5 mg tablet TAKE ONE TABLET THREE TIMES DAILY NEEDED FOR MUSCLE SPASMS active Not Available Not Available No t Available Stool Softener-Lax ative 8.6 mg-50 mg tablet TAKE 2 TABLETS BY MOUTH NIGHTLY active Not Available Not Available No t Available rosuvastatin 5 mg tablet TAKE ONE TABLET BY MOUTH EVERY NIGHT AT BEDTIME active Not Available Not Available No t Available metoprolol tartrate 25 mg tablet TAKE 1 TABLET TWICE DAILY AT NOON AND BEDTIME active Not Available Not Available No t Available sevelamer carbonate 800 mg tablet TAKE 1 TABLET BY MOUTH THREE TIMES A DAY WITH MEALS active Not Available Not Available N ot Available oxycodone 10 mg tablet TAKE ONE TABLET BY MOUTH EVERY 6 HOURS NEEDED FOR SEVERE PAIN active Not Available Not Available Not Available diclofenac 1 % topical gel APPLY EXTERNALLY 4 TIMES A DAY. active Not Available Not Available No t Available cholecalcife rol (vitamin D3) 50 mcg (2,000 unit) tablet TAKE ONE TABLET AT NOON active Not Available Not Available No t Available Poly Bacitracin (zinc) 500 unit-10,000 unit/gram topical ointment APPLY TOPICALLY TWO TIMES A DAY active Not Available Not Available No t Available Vitals Date Recorded Respiratory rate Heart rate Body temperature Oxygen saturation Oxygen saturation in Arterial blood by Pulse oximetry Systolic blood pressure Diastolic blood pressure Provider Name and Address Organization Details Last Updated DateTime 4 18 /min 74 /min 98.7 [degF] 99 % 99 % 177 mm[Hg] 79 mm[Hg] Not Available [employer] 4 13:27:47 Date Recorded Body temperature Respiratory rate Body height Heart rate Oxygen saturation Oxygen saturation in Arterial blood by Pulse oximetry Body weight Systolic blood pressure Diastolic blood pressure Provider Name and Address Organization Details Last Updated DateTime 4 98.6 [degF] 16 /min 172.72 cm 84 /min 99 % 99 % 36101.2 08 g 169 mm[Hg] 77 mm[Hg] Not Available [employer] 4 14:18:33 Date Recorded Heart rate Body temperature Oxygen saturation Oxygen saturation in Arterial blood by Pulse oximetry Respiratory rate Systolic blood pressure Diastolic blood pressure Provider Name and Address Organization Details Last Updated DateTime 4 58 /min 98.7 [degF] 99 % 99 % 18 /min 153 mm[Hg] 69 mm[Hg] Not Available [facility] - production 4 13:02:48 Date Recorded Heart rate Body temperature Respiratory rate Oxygen saturation Oxygen saturation in Arterial blood by Pulse oximetry Systolic blood pressure Diastolic blood pressure Provider Name and Address Organization Details Last Updated DateTime 4 90 /min 98.4 [degF] 14 /min 98 % 98 % 114 mm[Hg] 80 mm[Hg] Not Available [employer] - production 4 15:43:19 Date Recorded Body weight Body temperature Body height Respiratory rate Oxygen saturation Oxygen saturation in Arterial blood by Pulse oximetry Heart rate Systolic blood pressure Diastolic blood pressure Systolic blood pressure Diastolic blood pressure Provider Name and Address Organization Details Last Updated DateTime 4 42966.0 64 g 98.6 [degF] 172.72 cm 16 /min 100 % 100 % 72 /min 91 mm[Hg] 56 mm[Hg] 89 mm[Hg] 58 mm[Hg] Not Available [employer] - production 4 19:44:41 Social History None recorded. Functional Status None recorded. Mental Status None recorded. Family History Nothing Reported. Medical History No medical history recorded. Gynecological HistoryNo gynecological history recorded. Obstetrics History GPAL:G 0 P 0 0 0 0 Past Encounters Encounter ID Performer Location Encounter Start Date Encounter Closed Date Diagnosis/Indication Diagnosis SNOMED-CT Code Diagnosis ICD10 Code [id number] KYE HAMILTON MD [facility] [address] [place] [id number] 10/14/2022 14:51:29 10/15/2022 10:39:37 Skin lesion 74325447 L98.9 [id number] Joshua Garrett MD [facility] [address] [place] [id number] 01/28/2023 21:19:48 01/28/2023 23:04:53 Chest pain 42780535 R07.9 [id number] Juma Meyer MD [facility] [address] [place] [id number] 04/23/2023 20:53:12 04/24/2023 20:13:39 Abdominal pain 78906666 R10.9 [id number] KYE HAMILTON MD [facility] [address] [place] [phone] 06/09/2023 15:21:59 06/09/2023 23:02:23 Abdominal pain 66462097 R10.9 [id number] Fredy Hensley MD [facility] [address] [place] [address] 0 06/27/2023 17:44:57 06/30/2023 18:19:13 Edema of lower extremity 809078777 R60.0 [id number] AROLDO DUTTA MD [facility] [address] [place] [address] 0 10/24/2023 13:27:40 10/24/2023 14:38:24 Tick bite [id number] W57.XXXA [id number] Jenna Denise MD [facility] [address] [place] [address] 0 01/19/2024 14:18:14 01/20/2024 10:25:55 Abscess of abdominal wall 44547719 L02.211 [id number] Garfield Pereira MD [facility] [address] [place] [phone] 01/22/2024 12:45:18 01/22/2024 22:38:19 Pruritic rash 52723197 L28.2 Cellulitis 016925053 L03 .90 [id number] Kathie Irizarry MD [facility] [address] [place] [id number] 02/10/2024 15:30:05 02/10/2024 18:57:02 Hallucinations 2655496 R44.3 [id number] Oneal Mueller MD [facility] [address] [place] [id number] 02/19/2024 19:44:39 02/20/2024 16:09:06 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 451109877 N18.6 Health Concerns Section Related Observation LastModified by Organization Detai ls LastModified Time None Recorded Concern Status LastModified by Organization Details LastModified Time None Recorded Advance Directives Directive None Recorded Payers Encounter Date Sequence Insurance Name Policy Number Policy Ely Covered Member ID Ely Member ID Guarantor Name 10/24/2023 1 [facility] - DOS ON OR AFTER 2022 - DUAL ELIGIBLE - RETIREMENT OPTIONS AND ONE CARE (MEDICARE REPLACEMENT/ADV ANTAGE - HMO) Guadalupe Chery [id number] Guadalupe Barajas Chery 01/19/2024 1 [facility] DOS ON OR AFTER 2022 - DUAL ELIGIBLE - RETIREMENT OPTIONS AND ONE CARE (MEDICARE REPLACEMENT/ADV ANTAGE - HMO) Guadalupe Chery [id number] Guadalupe Barajas Vik 01/22/2024 1 [facility] - DOS ON OR AFTER 2022 - DUAL ELIGIBLE - RETIREMENT OPTIONS AND ONE CARE (MEDICARE REPLACEMENT/ADV ANTAGE - HMO) Guadalupe Chery [id number] Guadalupe Barajas Chery 02/10/2024 1 [facility] - DOS ON OR AFTER 2022 - DUAL ELIGIBLE - RETIREMENT OPTIONS AND ONE CARE (MEDICARE REPLACEMENT/ADV ANTAGE - HMO) Guadalupe Chery [id number] Guadalupe Barajas Chery 02/19/2024 1 [facility] - DOS ON OR AFTER 2022 - DUAL ELIGIBLE - RETIREMENT OPTIONS AND ONE CARE (MEDICARE REPLACEMENT/ADV ANTAGE - HMO) Guadalupe Chery [id number] Guadalupe Barajas Vik Notes Date Note Type Note Provider Name and Address Organization Details Recorded Time 10/24/2023 text/html HPI: Chronic pain, CAD, Osteoporosis, hypothyroidism, Chronic gout, hyperlipidemia, liver replaced by transplant, ESRD, on renal dialysis, GERD, restless leg syndrome, anxiety, AV block, Asthma, COPD, hx of basil cell carcinoma of skin .................... .................... .................... .................... .................... .................... .................... . [facility] Nurse Triage Notes (Montrell Sherman): Chief Complaints: Wound Care PMH: CHF, Heart Disease, Organ Transplant, Hypertension, Cancer, COPD/Asthma Allergies: Trimethoprim-Sulfame thoxazole Comments: Reviewed HPI .................... .................... .................... .................... .................... .................... .................... . [employer] Flex Developer Note From Mai Caballero: Pt states found a tick on leg yesterday; unsure of when the tick attached or where it came from. Pulled tick yesterday with tweezers but unsure if she got all of it. A&ox3, vs as noted, afebrile; denies acute pain or discomfort, cp, sob, n/v/d, headache vision changes. Tick appears to have been completely removed, no rash or target sign present. [facility] consulted, pt will monitor s/s and seek additional follow up from pcp as needed. Red flags reviewed. [employer] Flex Developer Allergies: Trimethoprim-Sulfame thoxazole .................... .................... .................... .................... .................... .................... .................... . Disposition: Aiyana DUTTA MD [address] [facility],[address], [place], [phone], [place] - [facility] 10/24/2023 14:38:20 01/19/2024 text/html HPI: PMhx: Hx of aortic valve replacement, CKD3, Hypothyroidism, hx of liver recipient, squamous cell carcinoma of skin.Reports having a lump that is three inches under right breast. Per pt the size of a quarter. Tender to touch. Red and warm to touch. No fever. No injury. No insect bite. No spreading rash. Per pt has an open sore that is over years. Pt endorses drainage of green color. No odor. Pt advised of disposition, unable to come into our [facility]. Agrees to [facility] referral. Confirmed address, phone number and allergies. .................... .................... .................... .................... .................... .................... .................... . [facility] Nurse Triage Notes (Alta Hazel): Chief Complaints: Cellulitis PMH: Hypertension, Heart Disease, Organ Transplant, Hypertension, Cancer, COPD/Asthma, CHF Allergies: Trimethoprim-Sulfame thoxazole Other Allergies: Heparin, Sulfa Antibiotics, Verpamil Comments: [facility] RN DID NOT NEED FURTHER INFOSEGMD: Patient is 15 years status post liver transplant. She last saw her transplant surgeon 3 weeks ago. Dermatology has her on mupirocin and mometasone all for chronic draining abdominal fistulae. She states that occasionally they drain purulent material. Patient denies fevers or chills, nausea, vomiting, diarrhea. She has a history of end-stage renal disease and is now on hemodialysis Friday, and Friday. She has healed abdominal scars from her liver transplant. Her squamous cell skin cancers were not on her abdominal wall. The patient does not take Tylenol due to her liver or NSAIDs due to her CKD................. .................... .................... .................... .................... .................... .................... ..... Adobe Flex Developer Note From David Javier: [facility] visit for female pt. Pt presents complaining of a couple of non healing adbominal wounds in addition to a new lump noted on abdomen. Pt had liver replacement 15 year ago and has had non wealing wounds along surgical scar lines for a couple of years Pt noted tender lump slightly red a few inches towards the patient's right side from her umbilicus. Pt has seen surgeon and library clerk for non healing wounds and tried topical medications without improvement or clear diagnosis. V/S taken as listed. Pt afebrile. Images taken for [facility] [place]. Lump on abdomen palpated and firm and roughly the size of a half dollar. Consulted with [facility] [place]. Denise who advised pt follow up with transplant surgeon. Dr. Denise ordered 1 g of IM ceftriaxone in addition to 100 mg of oral doxycycline. Reviewed red flags for ED. Pt given medications. Pt education provided. .................... .................... .................... .................... .................... .................... .................... . Disposition: Fulfilled Jenna Denise MD [address] [facility],[address], [place], [id number], [facility] - [employer] 01/19/2024 16:20:37 01/22/2024 text/html HPI: Member called [facility] stating she was prescribed doxycycline for a possible abscess on her abdomen. Member reports she has developed a rash, associated with taking the antibiotic. Member c/o rash is mostly on her face, but has spread to her body. Rash is bumpy and itchy. Member denies difficulty breathing, swelling in her mouth or fever. This promotion writer advised member to d/c the medication. Offered [facility] visit for re-evaluation. Member agreed. .................... .................... .................... .................... .................... .................... .................... . [facility] Nurse Triage Notes (Susan Hess): Chief Complaints: Rash PMH: Heart Disease, Organ Transplant, Hypertension, Cancer, COPD/Asthma, CHF Allergies: Doxycycline, Trimethoprim-Sulfame thoxazole Other Allergies: heparin, doxycycline Comments: HPI reviewed- NE .................... .................... .................... .................... .................... .................... .................... . [employer] Flex Developer Note From Shayna Pereira: Pt is a 73YOF found sitting on her recliner with her age on the side. Patient is a little oriented times [address] time and event. Patient has Sailaja airway, speaking complete sentences, with equal chest rise and fall. Effort is not labored, no nasal flaring, no intercostal muscle, no clavicular retraction noted. Last Friday, Patient noticed a redness around her 16 years old stitch site post liver transplant, rigid in the middle, no abscess or puss coming out of the site noted. Then Friday, Patient stated that she got a shot from one of the registered diet technician on her right deltoid, followed by 100 mg of doxycycline on Friday as well. Patient said that she started having the redness around her forehead the same day, however, she continues taking doxycycline twice a day 100 mg each, start developing red spots and the patches of redness and itchiness as well all over her forehead and upper extremities. Patient denies any difficulty swallowing, difficulty breathing, chest pain, nausea, vomiting, fever, or chills or any other complaints noted. No other discoloration, bruises, abrasions, contusions, bleeding or pedal edema or swelling or either other injuries noted otherwise. Vitals Assessed and recorded. Lungs sounds are clear and equal bilaterally. Notified: Pictures of the abdominal site wound, skin rash and redness are uploaded. Patient administer 50 mg of Benadryl as per doctors order. Patient is adviced to stop taking doxycycline, bulk picker the new meds prescribed by today? s doc, and to follow up with her PCP or surgeon as per doctors recommendations. Patient is left under the care of her aid. SC8 clear without any incidents .................... .................... .................... .................... .................... .................... .................... . Disposition: Aiyana Pereira MD [address] [facility], [place], [address], [employer] - [employer] 01/22/2024 18:45:00 02/10/2024 text/html HPI: Member's CYBER SECURITY ARCHITECT called CRU requesting home visit for member. She reports member is pale, fatigued, has dizziness and lightheadedness, and severe abd pain, nausea and dry heaves. Member states pain is 10/10. Member is on H/D and was recently discharged from the hospital. Last h/d was 3 days ago. Member is taking oxycontin for chronic back pain. She took her dose this morning. Member had BM this morning. Denies bloody or black stool. Denies fever, or vomiting. PMH: includes but not limited to, Hypertensive heart, chronic stage 5 renal disease, chronic hf, asthma with COPD, anxiety, GERD, liver transplant, CAD. Member is refusing to go to ED. This promotion writer advised, I will send request for [facility] visit. However, they may still refer member to the ED. Member verbalized comprehension and agreed with this plan. Advised if sx's worsen or change, call 911. .................... .................... .................... .................... .................... .................... .................... . [facility] Nurse Triage Notes (Domenic Mir): Chief Complaints: Abdominal pain PMH: Coronary Artery Disease, Organ Transplant, Hypertension, Cancer, COPD/Asthma, Congestive Heart Failure Comments: HPI reviewed by this RN, no further information needed to process visit -Kendrick Mir RN .................... .................... .................... .................... .................... .................... .................... . [employer] Flex Developer Note From Chele Dunlap: Patient seated in chair in apartment. button station worker with patient. Patient complains of lower back pain abdominal pain and visual hallucinations times several days. Patient states hallucinations of objects moving make her scared. Unable to discern onset time of hallucinations.Patie nt also complains of lower back pain, abdominal pain and nausea. Patient states she feels ? lousy? . Patient confirms she sees visual hallucinations, the lamp is moving, she says a towel moved earlier and scared her. Patient states she declined ambulance transportation earlier in the day, states she was able to get cat food and is now ready to go to the hospital. Patient pink warm dry. Secondary exam unremarkable. Patient speaks full sentences, negative increased work of breathing. Abdomen soft, nontender extremities unremarkable.[facility] [place] patient to ED. Patient agrees to ambulance transport at this time.911 system activated report to EMS on scene.[facility] to [place]. .................... .................... .................... .................... .................... .................... .................... . [facility] Consulted: Kathie Irizarry .................... .................... .................... .................... .................... .................... .................... . Disposition: Aiyana Kathie Irizarry MD [address] [facility],[address], [place], [address], [employer] 02/10/2024 16:32:23 02/19/2024 text/html HPI: Member called into the [facility]U stating that she is in so much pain this a.m. she could not bear to walk from her bed to the bathroom to get ready for dialysis, she did not go. Guadalupe states she was discharged from the hospital this past Friday, she had a CT scan of her back and Diverticulitis. Guadalupe states she was taking Colace and MiraLAX and had the runs, so she stopped the meds yesterday. She states she had dialysis on Friday in the hospital. Guadalupe reports also having a history of spinal Stenosis, chronic back pain, history of falls, and liver transplant 2008. Guadalupe states she was told not to take her Oxycodone as it will constipate her, but this promotion writer told her she has the runs, so taking her Oxycodone this a.m. would be beneficial as may provide her some relief. Guadalupe reports 10/10 neck pain, 8/10 shoulder to shoulder and back pain. Guadalupe states she is wearing a diaper, cleaned herself well this morning but it took her a long time due to the pain. She states she is anuric and makes very little urine. Guadalupe states she has applied icy hot to her neck. She states she does not want to go to the hospital. She states she refused to go to rehab after leaving the hospital as she has no one to watch her 2 cats. .................... .................... .................... .................... .................... .................... .................... . [facility] Nurse Triage Notes (Alta Hazel): Chief Complaints: Back pain, Weakness, Joint pain/swelling PMH: Coronary Artery Disease, Organ Transplant, Hypertension, Cancer, COPD/Asthma, Congestive Heart Failure Comments: HPI reviewed .................... .................... .................... .................... .................... .................... .................... . [employer] Developer Note From David Javier: [facility] visit for female pt. Pt presents complaining of abdominal pain in addition to pain in her left trapezius. Pt was supposed to go to dialysis today but could not go due to pain. Pt was recently hospitalized for 8 days for same issue and discharged in the last couple of days. Pt was told to go to rehab after, but declined because she does not have someone to take care of her cats. Pt is prescribed oxycodone but is reluctant to take it out of concerns for possible addiction. V/S taken with hypotension noted. Pt afebrile. Consulted with [facility] Dr. Mueller who advised pt go to ED. Pt stated that she didn't want to go as her CYBER SECURITY ARCHITECT had just arrived. [facility] asked for recheck of BP which was completed and pt agreed to plan of calling 911 herself in a couple of hours time when her CYBER SECURITY ARCHITECT is getting ready to leave. Reviewed red flags. Pt education provided. .................... .................... .................... .................... .................... .................... .................... . [facility] Consulted: Oneal Mueller .................... .................... .................... .................... .................... .................... .................... . Disposition: Fulfilled Oneal Mueller MD [address] [facility] [facility], [place], [phone], [facility] [employer] 02/20/2024 14:28:09 OBGyn Episode No OBEpisode recorded.
--- OUTSIDE RECORDS SUMMARY | 2024-03-11 05:03 | XMS_ITS ---
Author Name Hugh, Clinic Address [address] [place] [id number] Phone [phone] Organization [facility], NA DOCUMENT DISCLAIMER Multiple document versions may exist, please be sure you review the latest version. The information in the [facility] Continuity of Care Document represents a summary of certain health and medical information. It may not contain the complete medical history for the patient and should be independently verified. The represented time in the document is Eastern Time. PROBLEMS Problem Code Status Onset Date Basal cell carcinoma of skin, unspecified C44.91 Active November 07, 2023 Bacterial infection, unspecified A49.9 Active October 08, 2023 Other secondary hypertension I15.8 Active May 16, 2022 Moderate protein-calorie malnutrition E44.0 Act maximo April 26, 2022 Shortness of breath R06.02 Active March 13, 2022 Dependence on renal dialysis Z99.2 Active March 13, 2022 Encounter for immunization Z23 Active D ec2021 Encounter for screening for respiratory tuberculosis Z11.1 Active March 13, 2022 Allergy, unspecified, initial encounter T78.40XA A ctive March 13, 2022 Anaphylactic shock, unspecified, initial encounter T78 .2XXA Active March 13, 2022 Pain, unspecified R52 Active February 282021 Headache, unspecified R51.9 Active Decemb er 2021 Fever, unspecified R50.9 Active March 13, 2022 Cramp and spasm R25.2 Active March 13, 2022 Diarrhea, unspecified R19.7 Active Decemb er 2021 Nausea R11.0 Active March 13 End stage renal disease N18.6 Active Dece mber 2021 Pruritus, unspecified L29.9 Active Decemb er 2021 Hypotension of hemodialysis I95.3 Active March 13, 2022 Angina pectoris, unspecified I20.9 Active March 13, 2022 Other disorders of electroly te and fluid balance, not elsewhere classified E87.8 Active March 13 Coagulation defect, unspecified D68.9 Active March 13, 2022 Anemia in chronic kidney disease D63.1 Active March 13, 2022 Iron deficiency anemia, unspecified D50.9 Activ e March 13, 2022 Gout, unspecified M10.9 Active February 282021 Chronic obstructive pulmonary disease, unspecified J44 .9 Active March 13, 2022 Anxiety disorder, unspecified F41.9 Active March 13, 2022 Liver transplant status Z94.4 Active Dece mb2021 Encounter for screening for malignant neoplasm of colon Z12.11 Active March 13, 2022 Secondary hyperparathyroidism of renal origin N25.81 Active March 13, 2022 Other asthma J45.998 Active March 13 Other hypotension I95.89 Active February 282021 Paroxysmal atrial fibrillation I48.0 Active March 13, 2022 Secondary hypertension, unspecified I15.9 Activ e March 13, 2022 Other idiopathic peripheral autonomic neuropathy G90.0 9 Active March 13, 2022 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 Active February Hyperkalemia E87.5 Active March 13 Erysipelas A46 Active March 13 ALLERGIES AND ADVERSE REACTIONS Substance Reaction Severity Status heparin Hives Active Heparin Analogues Hives Moderate Active verapamil Unknown Active Sulfa (Sulfonamide Antibiotics) Hives Moderate Active SOCIAL HISTORY Tobacco Use Status Tobacco Type Unknown if ever consumed tobacco - Caregiver Characteristics No Information Available Characteristics of Home environment No Information Available Gender and Sex Information Gender Identity Sexual Orientation No Information Available No Information Available MEDICATIONS Prescribed Medications for Dialysis Treatments Medication Instructions Dosage Route Start Date End Date Stat Iron Sucrose (Venofer) 1X Week 50 mg Intravenous - push March 04, 2024 March 03, 2025 Active Vitamin D (Calcitriol) Oral Every Treatment 0.50 mcg Oral January 20, 2024 January 18, 2025 Discontinued Home Medications Medication Instructions Dosage Route Start Date End Date Stat albuterol sulfate 90 mcg/actuation Inhale using inhaler every six hours 1 puff INHALATION March 04, 2024 Active allopurinol 100 mg Take by mouth once a day 1 tablet ORAL June 03, 2023 Active aspirin 81 mg Take by mouth once a day 1 tablet ORAL March 25, 2019 Active Bengay Ultra Strength 4-30-10% Apply to affected area every night at bedtime 1 a small amount TOPICAL June 12, 2023 Active Boost 0.04 gram- 1 kcal/mL Take by mouth twice a day 8 ounce ORAL February 06, 2023 Active calcium citrate 200 mg (950 mg) Take by mouth twice a day 2 tablet ORAL February 10, 2024 Active cholecalciferol (vitamin D3) 50 mcg (2,000 unit) Take by mouth once a day 1 capsule ORAL August 14, 2021 Active clonazepam 1 mg Take by mouth as directed as needed 1 tablet ORAL January 17, 2022 Active Crestor 5 mg Take by mouth once a day 1 tablet ORAL June 21, 2023 Active docusate sodium 100 mg Take by mouth twice a day 1 capsule ORAL June 21, 2023 Active famotidine 20 mg Take by mouth twice a day as directed 1 tablet ORAL January 17, 2022 Active folic acid 1 mg Take by mouth once a day with meals 1 tablet ORAL June 05, 2019 Active furosemide 40 mg Take by mouth as directed 3 tablet ORAL June 21, 2023 Active hydroxyzine HCl 25 mg Take by mouth three times a day 1 tablet ORAL March 20, 2023 Active levothyroxine 88 mcg Take by mouth once a day 1 tablet ORAL June 12, 2023 Active lidocaine-prilocai ne 2.5-2.5% Apply to skin three times a week TOPICAL August 30, 2019 Active lorazepam 0.5 mg Take by mouth once a day 1 tablet ORAL November 18, 2023 Active Metamucil 3.4 gram/5.4 gram Take by mouth once a day 1 ORAL February 19, 2024 Active metoprolol tartrate 25 mg Take by mouth twice a day 1 tablet ORAL June 12, 2023 Active midodrine 5 mg Take by mouth every morning 1 tablet ORAL February 10, 2021 Active Miralax 17 gram/dose Place by mouth once a day 17 gram ORAL June 21, 2023 Active ondansetron HCl 4 mg Take by mouth every eight hours as needed 1 tablet ORAL May 29, 2019 Active oxycodone IR Take by mouth twice a day 5 mg by mouth June 12, 2023 Active ropinirole 0.5 mg ORAL May 302023 Active Senna with Docusate Sodium 8.6-50 mg Take by mouth every night 2 tablet ORAL June 21, 2023 Active tacrolimus 0.5 mg Take by mouth twice a day 1 capsule ORAL July 22, 2023 Active venlafaxine 25 mg Take by mouth once a day 1 tablet ORAL July 20, 2019 Active Xifaxan 550 mg Take by mouth once a day 1 tablet ORAL February 25, 2024 Active atorvastatin 10 mg Take by mouth once a day 1 tablet ORAL February 19, 2024 Discontinued doxycycline hyclate 100 mg Take by mouth twice a day 1 capsule ORAL February 10, 2024 Discontinued estradiol 0.01% (0.1 mg/gram) Insert into vagina 2 gram VAGINAL February 19, 2024 Discontinued VITAL SIGNS Post-Treatment Vital Signs Vital Sign Value Date / Time Blood Pressure-sitting 110/54 mmHg March 09, 2024 05:34 AM Heart Rate 59 beats per minute March 09, 2024 05:34 AM Respiratory Rate 18 breaths per minute March 09, 2024 05:34 AM Temperature 97.8 deg. F March 09 05:34 AM Weight Vital Sign Value Date / Time Estimated Dry Weight 66.5 kg January 11:59 PM Pre-Dialysis 68.10 kg March 09 05:34 AM Post-Dialysis 66.60 kg March 09 05:34 AM Other Other Value Date / Time Height 168 cm April 18, 2022 12:00 AM Body Mass Index 23.56 kg/m2 March 02 10:02 AM HEALTH CONCERNS Tuberculosis Testing TST Date Administered TST Date Read TST Result 03/19/2022 03/21/2022 Negative (<5) mm LAB RESULTS Hematology Result Type Result Value Relevant Referen ce Range Interpretation Date TIBC (Calc) 266 mcg/dL 185 - 515 mcg/dL - August UIBC/TIBC 209 mcg/dL 155 - 355 mcg/dL - September 18, 2023 Transferrin Sat. (Calc) 21 % 20 - 55 % - September 18, 2023 Ferritin 255 ng/mL 10 - 291 ng/mL - September 17 WBC (No Diff) 7.09 1000/mcL 4.80 - 10.80 1000/mcL - October 23, 2023 TIBC (Calc) 172 mcg/dL 185 - 515 mcg/dL Low September UIBC/TIBC 132 mcg/dL 155 - 355 mcg/dL Low October 23, 2023 Transferrin Sat. (Calc) 23 % 20 - 55 % - October 23, 2023 Ferritin 572 ng/mL 10 - 291 ng/mL High October 22 024 Ferritin 489 ng/mL 10 - 291 ng/mL High November 20, 2023 Transferrin Sat. (Calc) 34 % 20 - 55 % - November 20, 2023 TIBC (Calc) 244 mcg/dL 185 - 515 mcg/dL - November 20, 2023 UIBC/TIBC 162 mcg/dL 155 - 355 mcg/dL - October 302023 Hemoglobin x 3 30.9 % 36.0 - 48.0 % Low Septemb er 2023 Hemoglobin x 3 31.2 % 36.0 - 48.0 % Low Septemb er 2023 Ferritin 370 ng/mL 10 - 291 ng/mL High December 18, 2023 TIBC (Calc) 242 mcg/dL 185 - 515 mcg/dL - Novemb er 2023 UIBC/TIBC 174 mcg/dL 155 - 355 mcg/dL - Novembe r 2023 Iron 68 mcg/dL 30 - 160 mcg/dL - December 18, 2023 Transferrin Sat. (Calc) 28 % 20 - 55 % - December 17 Hemoglobin x 3 35.1 % 36.0 - 48.0 % Low January 01, 2024 Hemoglobin x 3 36.6 % 36.0 - 48.0 % - January 08, 2024 Ferritin 888 ng/mL 10 - 291 ng/mL High December Transferrin Sat. (Calc) 33 % 20 - 55 % - January 15, 2024 TIBC (Calc) 215 mcg/dL 185 - 515 mcg/dL - January 15, 2024 UIBC/TIBC 143 mcg/dL 155 - 355 mcg/dL Low January 15, 2024 Iron 72 mcg/dL 30 - 160 mcg/dL - December 292023 WBC (No Diff) 5.74 1000/mcL 4.80 - 10.80 1000/mcL - January 15, 2024 RDW 15.2 % 11.5 - 14.5 % High January 15, 2024 MCHC 31.3 g/dL 30.0 - 36.0 g/dL - January 15, 2024 MCH 30.3 pg 27.0 - 31.0 pg - December Retic HGB (CHr) 30.7 pg 25.4 - 31.8 pg - 2023 Hemoglobin x 3 34.5 % 36.0 - 48.0 % Low January 15, 2024 Hemoglobin x 3 36.6 % 36.0 - 48.0 % - January 22, 2024 Hemoglobin x 3 35.4 % 36.0 - 48.0 % Low January 29, 2024 Hemoglobin x 3 38.7 % 36.0 - 48.0 % - 2023 Ferritin 637 ng/mL 10 - 291 ng/mL High January 312023 Hemoglobin x 3 33 % 36.0 - 48.0 % Low Novem r 2023 TIBC (Calc) 156 mcg/dL 185 - 515 mcg/dL Low 2023 Transferrin Sat. (Calc) 22 % 20 - 55 % - February 27 Iron 34 mcg/dL 30 - 160 mcg/dL - February 28, 2024 UIBC/TIBC 122 mcg/dL 155 - 355 mcg/dL Low February 28, 2024 HGB 11.0 g/dL 12.0 - 16.0 g/dL Low February 28, 2024 HGB 11.6 g/dL 12.0 - 16.0 g/dL Low March 04, 2024 Hemoglobin x 3 34.8 % 36.0 - 48.0 % Low [facility] Metabolic/Renal Result Type Result Value Relevant Referen ce Range Interpretation Date Sodium 139 mEq/L 136 - 145 mEq/L - December 18, 2023 Creatinine, Serum 7.28 mg/dL 0.60 - 1.30 mg/dL High December 18, 2023 Bicarbonate 22 mEq/L 22 - 29 mEq/L - December 18, 2023 Potassium 4.9 mEq/L 3.5 - 5.1 mEq/L - December 18, 2023 BUN 37 mg/dL 6 - 19 mg/dL High January 01, 2024 URR, Calc 81 % 65 - 80 % High December 31 BUN, Post 7 mg/dL 6 - 19 mg/dL - January 01, 2024 Sodium 140 mEq/L 136 - 145 mEq/L - December 292023 Bicarbonate 24 mEq/L 22 - 29 mEq/L - December Potassium 4.6 mEq/L 3.5 - 5.1 mEq/L - December 292023 Creatinine, Serum 6.49 mg/dL 0.60 - 1.30 mg/dL High January 15, 2024 URR, Calc 74 % 65 - 80 % - February 06, 2 024 BUN, Post 6 mg/dL 6 - 19 mg/dL - February 07, 2024 BUN 23 mg/dL 6 - 19 mg/dL High February 07, 2024 Bicarbonate 20 mEq/L 22 - 29 mEq/L Low January 312023 Sodium 138 mEq/L 136 - 145 mEq/L - February 28, 2024 Potassium 5.4 mEq/L 3.5 - 5.1 mEq/L High February 28, 2024 Creatinine, Serum 9.63 mg/dL 0.60 - 1.30 mg/dL High February 28, 2024 URR, Calc 79 % 65 - 80 % - March 04, 2 024 BUN, Post 9 mg/dL 6 - 19 mg/dL - March 04, 2024 BUN 43 mg/dL 6 - 19 mg/dL High March 04, 2024 HD Adequacy Result Type Result Value Relevant Referen ce Range Interpretation Date Krt/V 0.00 No Reference Ran ge Provided - October 02, 2023 Krt/V 0.00 No Reference Ran ge Provided - November 06, 2023 Krt/V 0.00 No Reference Ran ge Provided - December 04, 2023 spKt/V Gotch 1.97 No Reference Ran ge Provided - January 01, 2024 wstdKt/V without residual 2.7 No Reference Range Provided - January 01, 2024 wstdKt/V, residual 0.0 No Reference Range Provided - January 01, 2024 Krt/V 0.00 No Reference Ran ge Provided - January 01, 2024 eKt/V ([place]) 1.64 No Reference Range Provided - January 01, 2024 spKt/V (Daugirdas II) 1.93 No Reference Range Provided - January 01, 2024 wstdKt/V 2.7 No Reference Ran ge Provided - January 01, 2024 eKt/V ([place]) 1.27 No Reference Range Provided - February 07, 2024 wstdKt/V 0.8 No Reference Ran ge Provided - February 07, 2024 wstdKt/V without residual 0.8 No Reference Range Provided - February 07, 2024 spKt/V (Daugirdas II) 1.50 No Reference Range Provided - February 07, 2024 wstdKt/V, residual 0.0 No Reference Range Provided - February 07, 2024 eKt/V ([place]) 1.47 No Reference Range Provided - March 04, 2024 wstdKt/V without residual 2.6 No Reference Range Provided - March 04, 2024 Krt/V 0.00 No Reference Ran ge Provided - March 04, 2024 spKt/V Gotch 1.77 No Reference Ran ge Provided - March 04, 2024 wstdKt/V 2.6 No Reference Ran ge Provided - March 04, 2024 wstdKt/V, residual 0.0 No Reference Range Provided - March 04, 2024 spKt/V (Daugirdas II) 1.75 No Reference Range Provided - March 04, 2024 Bone/Mineral Result Type Result Value Relevant Referen ce Range Interpretation Date Vitamin D 25 Hydroxy 77.3 ng/mL 30.0 - 100.0 ng/mL - April 17, 2023 PTH-Intact, Plasma 268 pg/mL 16 - 80 pg/mL High Aug PTH-Intact, Plasma 29 pg/mL 16 - 80 pg/mL - Sep PTH-Intact, Plasma 25 pg/mL 16 - 80 pg/mL - Oct us2023 PTH-Intact, Plasma 167 pg/mL 16 - 80 pg/mL High Sep tember 2023 Calcium, Total 8.9 mg/dL 8.4 - 10.2 mg/dL - Nov Ca x P Product 20 - December 18, 2023 Phosphorus 2.3 mg/dL 2.6 - 4.5 mg/dL Low December 18, 2023 Corrected Ca x P Product - December 17 Alkaline Phosphatase 80 U/L 35 - 104 U/L - Oc tob2023 Calcium, Total 8.0 mg/dL 8.4 - 10.2 mg/dL Low 2023 PTH-Intact, Plasma 470 pg/mL 16 - 80 pg/mL High Dec darryl2023 Phosphorus 1.8 mg/dL 2.6 - 4.5 mg/dL Low December 292023 Ca x P Product 14 - December Corrected Ca x P Product 15 - January 15, 2024 Phosphorus 2.2 mg/dL 2.6 - 4.5 mg/dL Low December 302023 Calcium, Total 9.4 mg/dL 8.4 - 10.2 mg/dL - Deco 2023 PTH-Intact, Plasma 157 pg/mL 16 - 80 pg/mL High Jan Corrected Ca x P Product 22 0 - - February 27 Phosphorus 2.3 mg/dL 2.6 - 4.5 mg/dL Low February 28, 2024 Ca x P Product 0 - 54 - January 312023 Calcium, Total 8.6 mg/dL 8.4 - 10.2 mg/dL - 2023 Liver/Nutrition Result Type Result Value Relevant Reference Range Interpre tation Date Albumin (BCG) 3.1 g/dL 3.5 - 5.2 g/dL Low 2023 eNPCR 0.73 No Reference Ran ge Provided - January 01, 2024 Albumin (BCG) 3.3 g/dL 3.5 - 5.2 g/dL Low January 15, 2024 Albumin (BCG) 2.9 g/dL 3.5 - 5.2 g/dL Low 2023 eNPCR 0.77 No Reference Ran ge Provided - March 04, 2024 Immunochemistry Result Type Result Value Relevant Reference Range Interpre tation Date HCV s/co ratio 0.16 0.00 - 0.79 - December 292023 Trace Elements Result Type Result Value Relevant Reference Range Interpre tation Date Aluminum 37 mcg/L 0 - 10 mcg/L High April 17, 2023 Infectious Diseases Result Type Result Value Relevant Referen ce Range Interpretation Date Hep B Surface Ab (anti-HBs) > 1000 mIU/mL No Reference Range Provided - October 23, 2023 HCV Ab (anti-HCV) Nonreactive No Reference R priscilla Provided - January 15, 2024 Hep B Surface Ag (HBsAg) Negative No Reference Range Provided - February 28, 2024 DIALYSIS PRESCRIPTION Conventional Hemodialysis Data Element Value Order Date/Time February 07, 2024 Frequency 3X Week Treatment Days TueThuSat Dialyzer 160NRe Optiflux Treatment Time (Total Minutes) 195 min Blood Flow Rate (mL/min) 450 mL/min Dialysate Flow Rate Manual 500 Estimated Dry Weight 66.5 kg Dialysate Concentrate 2.0 K, 2.50 Ca, 1. 0 Mg, 100 Dextrose ([id number]) Sodium (mEq/L) 138 mEq/L Bicarb Machine Setting (mEq/L) 33 mEq/L Dialysis Access Hemodialysis-AV Fist taylor-Unknown, Left Forearm, Radial Artery to Basilic Vein Arterial Needle Size 15g1 Venous Needle Size 15g1 IMMUNIZATIONS Vaccine Date Dose Route Status HEPLISAV-B, Series 4 of 4 September 18, 2023 20.0 mcg Intramu scular Completed Heplisav-B Series 3, Series 3 of July 22, 2023 20.0 mcg Intramuscular Completed HEPLISAV-B, Series 1 of May 22, 2023 20.0 mcg Int ramuscular Completed Moderna COVID-19 Vaccine, Bivalent, Booster January 03, 2022 0.5 mL Intramuscular Completed Moderna COVID-19 Vaccine, Booster September 15, 2021 0.25 mL Intramuscular Completed HEPLISAV-B March 08, 2021 20.0 mcg Intramuscular Comp leted HEPLISAV-B September 07, 2020 20.0 mcg Intramuscular Complete d CZTXFGR-O-NOLAM, series 2 of August 10, 2020 40.0 mcg Int ramuscular Completed YRXJNEX-C-OGEEP, series 1 of July 15, 2020 40.0 mcg I ntramuscular Completed Moderna COVID-19 Vaccine, Do se 2 of June 01, 2020 0.5 mL Intramuscular Completed Moderna COVID-19 Vaccine, Do se 1 of May 04, 2020 0.5 mL Intramuscular Completed PNEUMOVAX October 28, 2019 0.5 mL Intramuscular Comple camacho BVBOHZD-Z-FTETA, series 4 of October 09, 2019 40.0 mcg In tramuscular Completed UXMVPNI-K-YPKTS, series 3 of June 12, 2019 40.0 mcg I ntramuscular Completed HTDKWKK-U-CPZQO, series 2 of May 13, 2019 40.0 mcg Intramuscular Completed POOGJDV-J-LMAKR, series 1 of April 10, 2019 40.0 mcg Intramuscular Completed TRANSPLANT WAITLIST STATUS Transplant List Type Transplant State/Center Tra nsplant List Status Kidney transplant list [facility] Active ADVANCE DIRECTIVES Directive Description Ordered By Effective Date Resuscitation status Full Code Breezy Marianohern Mar 22, 2024 DIALYSIS TREATMENTS Conventional Hemodialysis Date Pre-Treatment Vitals Post-Treatment Martha ls Duration (hr) BFR (mL/min) Dialysate Dialyzer Dialysis Access Meds Admin Decem halima 05, 2024 Weight 66.90 kg Weight 66.60 kg 03:07:00 450 2.0 K, 2.50 Ca, 1.0 Mg, 100 Dextrose ([id number]) 160nre Optifl ux Blood Pressure-sitting 141/71 mmHg Blood Pressure-sit ting 104/65 mmHg Heart Rate 67 beats per minute Heart Rate 80 beats per minute Respiratory Rate 18 breaths per minute Respiratory Rate 18 breaths per minute Temperature 97.8 deg. F Temperature 97.8 deg. F March 06, 2024 Weight 67.10 kg Weight 66.30 kg 03:23:00 450 2.0 K, 2.50 Ca, 1.0 Mg, 100 Dextrose ([id number]) 160nre Optiflux Hemodialysis-AV Fistula-Unknown, Left Forearm, Radial Artery to Basilic Vein - Blood Pressure-sitting 139/94 mmHg Blood Pressure-sit ting 114/64 mmHg Heart Rate 66 beats per minute Heart Rate 69 beats per minute Respiratory Rate 18 breaths per minute Respiratory Rate 18 breaths per minute Temperature 97.8 deg. F Temperature 97.8 deg. F March 09, 2024 Weight 68.10 kg Weight 66.60 kg 03:18:00 400 2.0 K, 2.50 Ca, 1.0 Mg, 100 Dextrose ([id number]) 160nre Optiflux Hemodialysis-AV Fistula-Unknown, Left Forearm, Radial Artery to Basilic Vein - Blood Pressure-sitting 108/50 mmHg Blood Pressure-sit ting 110/54 mmHg Heart Rate 61 beats per minute Heart Rate 59 beats per minute Respiratory Rate 18 breaths per minute Respiratory Rate 18 breaths per minute Temperature 97.8 deg. F Temperature 97.8 deg. F
--- OUTSIDE RECORDS SUMMARY | 2024-03-11 05:03 | XMS_ITS | Continuity of Care Document ---
Author Organization [facility] Address [address] [place] [id number] Care Team Providers Care Can Filler Name Role Phone MAYLIN HDZ Primary Care Provider [phone] HIM REBECA OTHER Assessment No assessment recorded. Plan of Treatment Reminders Order Date Submit Date Provider Last Modified By Organization Details Last Modified Time Details Appointments None record ed. Lab None record ed. Referral None record ed. Procedures None record ed. Surgeries None record ed. Imaging None record ed. Medication Orders None record ed. Patient TargetsNo targets recorded. Patient InstructionsNo instructions recorded. Reason for Referral None Reported. Medical Equipment None Reported. Allergies Allergen ID Allergen Name Allergen Category Reaction Reaction Severity Criticality Documentation Date Start Date Code Code System Note Provider Name and Address Organization Details Recorded Time 5648 Bactrim medicatio n hives Not available Not available 10/24/2023 15273 9 RxNorm AROLDO DUTTA MD [address] [place] [address],[address], [place], [address] [facility] 4 14:26:29 6672 heparin medicatio n Not available Not available Not available 01/19/2024 5224 RxNorm Not Available [facility] - production 4 12:50:18 6721 doxycycli ne Not available Not available Not available Not available 01/22/2024 3640 RxNorm Not Available [facility] - production 4 12:50:18 Medications Name Sig Start Date Stop [...] tablet TAKE 2 TABLETS 4 MG) BY [facility] AFTER 1ST LOOSE STOOL AND 1 TABLET [...] PATCH WITHIN 12 HOURS OR DIRECTED BY . active Not Available Not Available No t [...] Available No t Available Vitals Date Recorded Heart rate Body temperature Respiratory rate Oxygen saturation Oxygen saturation in Arterial blood by Pulse oximetry Systolic blood pressure Diastolic blood pressure Provider Name and Address Organization Details Last Updated DateTime 4 90 /min 98.4 [degF] 14 /min 98 % 98 % 114 mm[Hg] 80 mm[Hg] Not Available [facility] - production 4 15:43:19 Social History None recorded. Functional Status None recorded. Mental Status None recorded. Family History Nothing Reported. Medical History No medical history recorded. Gynecological HistoryNo gynecological history recorded. Obstetrics History GPAL:G 0 P 0 0 0 0 Past Encounters Encounter ID Performer Location Encounter Start Date Encounter Closed Date Diagnosis/Indication Diagnosis SNOMED-CT Code Diagnosis ICD10 Code [id number] Jenna Denise MD [facility] [address] [place] [phone] 01/19/2024 14:18:14 01/20/2024 10:25:55 Abscess of abdominal wall 03578633 L02.211 [id number] Grafield Pereira MD [facility] [address] [place] [phone] 01/22/2024 12:45:18 01/22/2024 22:38:19 Pruritic rash 95388630 L28.2 Cellulitis [id number] L03 .90 [id number] Kathie Irizarry MD [facility] [address] [place] [phone] 02/10/2024 15:30:05 02/10/2024 18:57:02 Hallucinations 1411508 R44.3 Health Concerns Section Related Observation LastModified by Organization Detai ls LastModified Time None Recorded Concern Status LastModified by Organization Details LastModified Time None Recorded Payers Encounter Date Sequence Insurance Name Policy Number Policy Ely Covered Member ID Ely Member ID Guarantor Name 02/10/2024 1 [facility] - DOS ON OR AFTER 2022 - DUAL ELIGIBLE - GROUP HOME OPTIONS AND ONE CARE (MEDICARE REPLACEMENT/ADV ANTAGE - HMO) Guadalupe Chery [id number] Guadalupe Chery Notes Date Note Type Note Provider Name and Address Organization Details Recorded Time 02/10/2024 text/html HPI: Member's RESIN COATER called [facility] requesting home visit for member. [...] is refusing to go to ED. This curriculum writer advised, I will send request for INSTED visit. However, they may still refer member [...] .................... .................... .................... .................... .................... .................... . 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 Patient complains of lower [...] work of breathing. Abdomen soft, nontender extremities unremarkable.[facility] orders patient to ED. Patient agrees to ambulance transport at this time.911 system activated report to EMS on scene.[facility] to [place]. .................... .................... .................... .................... .................... .................... .................... . [facility] Consulted: Kathie Irizarry .................... .................... .................... .................... .................... .................... .................... . Disposition: Fulfilled Kathie Irizarry MD [address] [facility],[address], [place], [address], [place] [facility] 02/10/2024 16:32:23 OBGyn Episode No OBEpisode recorded.
--- OUTSIDE RECORDS SUMMARY | 2024-03-11 05:03 | XMS_ITS | Continuity of Care Document ---
Author Organization [email or web address], [place] in - [employer] Address [address] [place] [address] Care Team Providers Care Box Shook Patcher Name Role Phone MAYLIN HDZ Primary Care Provider HIM [facility] OTHER Assessment Encounter Date Assessment Date Assessment LastModified by Organization Details LastModified Time 01/19/2024 01/19/2024 I provided real -time medical direction via phone for this encounter, and was available for additional phone based assistance as needed. I have reviewed and agree with the Assessment and Plan as documented by the Film Projector Operator. We discussed the diagnostic uncertainty of home [...] to call 911- verbalized understanding of instructions [email or web address] Not available 01/19/2024 14:40:17 Plan of Treatment Reminders Order Date Submit Date Provider Last Modified By Organization Details Last Modified Time Details Appointments None recorded. Lab None recorded. Referral None recorded. Procedures None recorded. Surgeries None recorded. Imaging None recorded. Medication Orders doxycycline hyclate 100 mg capsule 2023 024 [facility], [address] [place] [address], [place], [place], [id number], 09:33:49 ceftriaxone 1 gram solution for injection 2023 024 [email or web address] 0 Not available 14:37:54 doxycycline hyclate 100 mg tablet 2023 024 [email or web address] 0 Not available 14:37:54 Patient TargetsNo targets recorded. Patient InstructionsNo instructions recorded. Reason for Referral None Reported. Medical Equipment None Reported. Allergies Allergen ID Allergen Name Allergen Category Reaction Reaction Severity Criticality Documentation Date Start Date Code Code System Note Provider Name and Address Organization Details Recorded Time 5648 Bactrim medicatio n hives Not available Not available 10/24/2023 71149 9 RxNorm AROLDO DUTTA MD [address] [facility],[address], [place], [address], [facility], [employer] 14:26:29 6672 heparin medicatio n Not available [...] Available No t Available Vitals Date Recorded Body temperature Respiratory rate Body height Heart rate Oxygen saturation Oxygen saturation in Arterial blood by Pulse oximetry Body weight Systolic blood pressure Diastolic blood pressure Provider Name and Address Organization Details Last Updated DateTime 4 98.6 [degF] 16 /min 172.72 cm 84 /min 99 % 99 % 60261.2 08 g 169 mm[Hg] 77 mm[Hg] Not Available [facility] 4 14:18:33 Social History None recorded. Functional Status None recorded. Mental Status None recorded. Family History Nothing Reported. Medical History No medical history recorded. Gynecological HistoryNo gynecological history recorded. Obstetrics History GPAL:G 0 P 0 0 0 0 Past Encounters Encounter ID Performer Location Encounter Start Date Encounter Closed Date Diagnosis/Indication Diagnosis SNOMED-CT Code Diagnosis ICD10 Code [id number] Jenna Denise MD [facility] [address] [place] [phone] 01/19/2024 14:18:14 01/20/2024 10:25:55 Abscess of abdominal wall 47563014 L02.211 Health Concerns Section Related Observation LastModified by Organization Detai ls LastModified Time None Recorded Concern Status LastModified by Organization Details LastModified Time None Recorded Payers Encounter Date Sequence Insurance Name Policy Number Policy Ely Covered Member ID Ely Member ID Guarantor Name 01/19/2024 1 [facility] - DOS ON OR AFTER 2022 - DUAL ELIGIBLE - [facility] OPTIONS AND ONE CARE (MEDICARE REPLACEMENT/ADV ANTAGE - HMO) Guadalupe Chery [id number] Guadalupe Chery Notes Date Note Type Note Provider Name and Address Organization Details Recorded Time 01/19/2024 text/html HPI: PMhx: Hx of aortic [...] of disposition, unable to come into our [facility]. Agrees to [facility] referral. Confirmed address, phone number and allergies. ................... ................... ................... ................... ................... ................... ................... ........ [facility] Nurse Triage Notes (Alta Hazel): Chief Complaints: Cellulitis PMH: Hypertension, Heart Disease, Organ Transplant, Hypertension, Cancer, COPD/Asthma, CHF Allergies: Trimethoprim-Sulfam ethoxazole Other Allergies: Heparin, Sulfa Antibiotics, Verpamil Comments: [...] her liver or NSAIDs due to her CKD................ ................... ................... ................... ................... ................... ................... ............ Film Projector Operator Note From David Javier: [facility] visit for female pt. Pt presents complaining [...] her umbilicus. Pt has seen surgeon and field merchandiser for non healing wounds and tried topical medications without improvement or clear diagnosis. V/S taken as listed. Pt afebrile. Images taken for [facility] review. Lump on abdomen palpated and firm and roughly the size of a half dollar. Consulted with [facility] Dr. Denise who advised pt follow up with transplant surgeon. Dr. Denise ordered 1 g of IM ceftriaxone in addition to 100 mg of oral doxycycline. Reviewed red flags for ED. Pt given medications. Pt education provided. ................... ................... ................... ................... ................... ................... ................... ........ Disposition: Fulfilled Jenna Denise MD [address] [facility],[address], [place], [address], [facility] [employer] 01/19/2024 16:20:37 OBGyn Episode No OBEpisode recorded.
--- OUTSIDE RECORDS SUMMARY | 2024-03-11 05:03 | XMS_ITS | Continuity of Care Document ---
Author Organization [employer], [place] in - [employer] Address [address] [place] [address] Care Team Providers Care Intensive Care Medicine Specialist Name Role Phone MAYLIN HDZ Primary Care Provider [phone] HIM [facility] OTHER Assessment Encounter Date Assessment Date Assessment LastModified by Organization Details LastModified Time 02/19/2024 02/19/2024 I have reviewed and agree with the Assessment and Plan as documented by the Crester. I provided real-time medical direction via phone [...] n hives Not available Not available 10/24/2023 [id number] 9 RxNorm AROLDO DUTTA MD [address] [facility],[address], [place], [address], [facility] 4 14:26:29 6672 heparin medicatio n Not [...] No t Available Vitals Date Recorded Body weight Body temperature Body height Respiratory rate Oxygen saturation Oxygen saturation in Arterial blood by Pulse oximetry Heart rate Systolic blood pressure Diastolic blood pressure Systolic blood pressure Diastolic blood pressure Provider Name and Address Organization Details Last Updated DateTime 4 57877.0 64 g 98.6 [degF] 172.72 cm 16 /min 100 % 100 % 72 /min 91 mm[Hg] 56 mm[Hg] 89 mm[Hg] 58 mm[Hg] Not Available [facility] 19:44:41 Social History None recorded. Functional Status None recorded. Mental Status None recorded. Family History Nothing Reported. Medical History No medical history recorded. Gynecological HistoryNo gynecological history recorded. Obstetrics History GPAL:G 0 P 0 0 0 0 Past Encounters Encounter ID Performer Location Encounter Start Date Encounter Closed Date Diagnosis/Indication Diagnosis SNOMED-CT Code Diagnosis ICD10 Code [id number] Jenna Denise MD [facility] [address] [place] [phone] 01/19/2024 14:18:14 01/20/2024 10:25:55 Abscess of abdominal wall 69445964 L02.211 [id number] Garfield Pereira MD [facility] [address] [place] [phone] 01/22/2024 12:45:18 01/22/2024 22:38:19 Pruritic rash 34427625 L28.2 Cellulitis 174714382 L03 .90 [id number] Kathie Irizarry MD [facility] [address] [place] [phone] 02/10/2024 15:30:05 02/10/2024 18:57:02 Hallucinations 5379377 R44.3 [id number] Oneal Mueller MD [facility] [address] [place] [phone] 02/19/2024 19:44:39 02/20/2024 16:09:06 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 084940717 N18.6 Health Concerns Section Related Observation LastModified by Organization Detai ls LastModified Time None Recorded Concern Status LastModified by Organization Details LastModified Time None Recorded Payers Encounter Date Sequence Insurance Name Policy Number Policy Ely Covered Member ID Ely Member ID Guarantor Name 02/19/2024 1 [facility] - DOS ON OR AFTER 2022 - DUAL ELIGIBLE - [facility] OPTIONS AND ONE CARE (MEDICARE REPLACEMENT/ADV ANTAGE - HMO) Guadalupe Chery [id number] Guadalupe Chery Notes Date Note Type Note Provider Name and Address Organization Details Recorded Time 02/19/2024 text/html HPI: Member called into the [...] as it will constipate her, but this typewriter mechanic told her she has the runs, so [...] no one to watch her 2 cats. .................. .................. .................. .................. .................. .................. .................. ............... [facility] Nurse Triage Notes (Alta Hazel): Chief Complaints: Back pain, Weakness, Joint pain/swelling PMH: Coronary Artery Disease, Organ Transplant, Hypertension, Cancer, COPD/Asthma, Congestive Heart Failure Comments: HPI reviewed .................. .................. .................. .................. .................. .................. .................. ............... Crester Note From David Javier: [facility] visit for female pt. Pt presents complaining [...] with hypotension noted. Pt afebrile. Consulted with [facility] Dr. Mueller who advised pt go to ED. Pt stated that she didn't want to go as her CLASSROOM INSTRUCTIONAL AIDE had just arrived. [facility] asked for recheck of BP which was completed and pt agreed to plan of calling 911 herself in a couple of hours time when her CLASSROOM INSTRUCTIONAL AIDE is getting ready to leave. Reviewed red flags. Pt education provided. .................. .................. .................. .................. .................. .................. .................. ............... [facility] Consulted: Oneal Mueller .................. .................. .................. .................. .................. .................. .................. ............... Disposition: Fulfilled Oneal Mueller MD [address] [place] [address],[address], [place], [address], [facility] 02/20/2024 14:28:09 OBGyn Episode No OBEpisode recorded.
--- OUTSIDE RECORDS SUMMARY | 2024-03-11 05:03 | XMS_ITS | Clinical Summary ---
Author Organization Unknown Care Team Providers Care Coremaker Name Role Phone ANDREINA GUZMÁN, MAYLIN Unavailable Unavailable PONCHO BUNN, ALISSA SHERWOOD Unavailable Unava ilable TAMIKO PT, TASHIA Unavailable Unavailable LUIPPOLD ARMORED CAR MESSENGER, CHERRY Unavailable Unavailable ELIDA CAR ATTENDANT, MIRTHA Unavailable Unavailable SCOTT CAR ATTENDANT, CHI Unavailable Unavailable PENDRISS ARMORED CAR MESSENGER, DAVIDE Unavailable Unavailable MBURU ARMORED CAR MESSENGER, ARTEMIO Unavailable Unavailable Payers Payer Name Policy Type Policy Number Effective Date Expira tion Date MEDICARE.NGS.PDGM [id number] Problems Condition Name Condition Details Condition Category Status Onset Date Resolution Date Last Treatment Date Treating Clinician Comments 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 2020-03 00:00: 00 PAROXYSMAL ATRIAL FIBRILLATION Active 2020-03 00:00: 00 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 Active 2020-03 00:00: 00 HEART FAILURE, UNSPECIFIED Active 2020-03 00:00: 00 END STAGE RENAL DISEASE Active 2020-03 00:00: 00 CHRONIC OBSTRUCTIVE PULMONARY DISEASE, UNSPECIFIED Active 2020-03 00:00: 00 UNSPECIFIED ASTHMA, UNCOMPLICATE D Active 03-31 00:00: 00 GOUT, UNSPECIFIED Active 2020-03 00:00: 00 ANXIETY DISORDER, UNSPECIFIED Active 03-31 00:00: 00 GASTRO-ESOPH AGEAL REFLUX DISEASE WITHOUT ESOPHAGITIS Active 03-31 00:00: 00 HYPERLIPIDEM IA, UNSPECIFIED Active 03-31 00:00: 00 POLYNEUROPAT HY, UNSPECIFIED Active 03-31 00:00: 00 DVRTCLOS OF INTEST, PART UNSP, W/O PERF OR ABSCESS W/O BLEED Active 03-31 00:00: 00 LIVER TRANSPLANT STATUS Active 03-31 00:00: 00 PRESENCE OF NEUROSTIMULA TOR Active 03-31 00:00: 00 OTHER USP (CURRENT) DRUG THERAPY Active 03-31 00:00: 00 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 Ordering Clinician Indication Dosage Frequency Signature (SIG) Comments Components Eliquis 5 mg tablet 2020-03 00:00: 00 Yes [id number] TREATS A FIB 5 mg 2 TIMES DAILY 5 mg 2 TIMES DAILY (route: oral) Med Classific ation: Hematolog ical Agents famotidine 20 mg tablet 2020-03 00:00: 00 Yes [id number] TREATS GERD 20 mg TWICE A DAY 20 mg TWICE A DAY (route: oral) Med Classific ation: Gastroint estinal Therapy Agents oxycodone 5 mg tablet 12-21 00:00: 00 02-10 00:00 :00 No [id number] Per instruc tions TWICE A DAY NEEDED Per instructio ns TWICE A DAY NEEDED (route: oral) Med Classific ation: Analgesic , Anti-infl ammatory or Antipyret ic allopurinol 100 mg tablet 12-03 00:00: 00 Yes [id number] TREATS GOUT 100 mg EVERY DAY 100 mg EVERY DAY (route: oral) Med Classific ation: Gout and Hyperuric emia Therapy oxycodone 5 mg tablet 2020-03 00:00: 00 Yes [id number] TREATS PAIN 5 mg TWICE A DAY NEEDED 5 mg TWICE A DAY NEEDED (route: oral) Med Classific ation: Analgesic , Anti-infl ammatory or Antipyret ic levothyroxi ne 100 mcg tablet 2020-03 0-17 00:00: 00 Yes [id number] TREATS HYPOTHYROID ISM 100 mcg EVERY DAY 100 mcg EVERY DAY (route: oral) Med Classific ation: Endocrine folic acid 1 mg tablet 2020-03 0-31 00:00: 00 Yes [id number] SUPPLEMENT 1 mg EVERY DAY 1 mg SHANEL RY DAY (route: oral) Med Classific ation: Electroly te Balance-N utritiona l Products tacrolimus 1 mg capsule, immediate-r elease 2020-03 017 00:00: 00 Yes [id number] TREATS ORGAN REJECTION 1 mg 2 TIMES DAILY 1 mg 2 TIMES DAILY (route: oral) Med Classific ation: Immunosup pressive Agents rosuvastati n 10 mg tablet 2020-03 00:00: 00 Yes [id number] TREATS HIGH CHOLESTEROL 10 mg BEDTIME 10 mg BEDTIME (route: oral) Med Classific ation: Cardiovas cular Therapy Agents cholecalcif george (vitamin D3) 50 mcg (2,000 unit) tablet 12-05 00:00: 00 Yes [id number] SUPPLEMENT 50 mcg EVERY DAY 50 mcg EVERY DAY (route: oral) Med Classific ation: Electroly te Balance-N utritiona l Products hydroxyzine HCl 25 mg tablet 2020-03 0 00:00: 00 Yes [id number] FOR ITCH 25 mg THREE TIMES A DAY NEEDED 25 mg THREE TIMES A DAY NEEDED (route: oral) Med Classific ation: Central Nervous System Agents calcium citrate 200 mg (950 mg) tablet 10-27 00:00: 00 Yes [id number] SUPPLEMENT 200 mg TWICE A DAY 200 mg TWICE A DAY (route: oral) Med Classific ation: Electroly te Balance-N utritiona l Products ropinirole 0.5 mg tablet 2020-03 018 00:00: 00 Yes [id number] TREATS RESTLESS LEGS 0.5 mg 1 TO 3 HOURS BEFORE BEDTIME 0.5 mg 1 TO 3 HOURS BEFORE BEDTIME (route: oral) Med Classific ation: Central Nervous System Agents clonazepam 0.5 mg tablet 2020-03 022 00:00: 00 Yes [id number] TREATS ANXIETY 0.5 mg EVERY DAY NEEDED 0.5 mg EVERY DAY NEEDED (route: oral) Med Classific ation: Central Nervous System Agents midodrine 5 mg tablet 2020-03 00:00: 00 Yes [id number] TREATS HYPOTENSION 5 mg 3 TIMES A WEEK 5 mg 3 TIMES A WEEK (route: oral) Med Classific ation: Cardiovas cular Therapy Agents venlafaxine 25 mg tablet 2020-03 00:00: 00 02-10 00:00 :00 No [id number] Per instruc tions EVERY DAY Per instructio ns EVERY DAY (route: oral) Med Classific ation: Central Nervous System Agents Aspirin Low Dose 81 mg tablet,neto yed release 2020-03 00:00: 00 Yes [id number] HEART MED 81 mg DAILY 81 mg DAILY (route: oral) Med Classific ation: Hematolog ical Agents Imodium A-D 2 mg capsule 2020-03 00:00: 00 Yes [id number] TREATS DIARRHEA 2 mg EVERY 4 HOURS 2 mg EVERY 4 HOURS (route: oral) Med Classific ation: Gastroint estinal Therapy Agents tacrolimus 1 mg capsule, immediate-r elease 2020-03 00:00: 00 Yes [id number] TREATS ORGAN REJECTION 1 mg 2 TIMES DAILY 1 mg 2 TIMES DAILY (route: oral) Med Classific ation: Immunosup pressive Agents venlafaxine 37.5 mg tablet 2020-03 00:00: 00 Yes [id number] ANTIDEPRESS ANT 37.5 mg DAILY 37.5 mg DAILY (route: oral) Med Classific ation: Central Nervous System Agents Zofran 4 mg tablet 2020-03 00:00: 00 Yes [id number] TREATS NAUSEA 4 mg 3 TIMES DAILY 4 mg 3 TIMES DAILY (route: oral) Med Classific ation: Gastroint estinal Therapy Agents Immunizations Ordered Immunization Name Filled Immunization Name Date Status Comments Refusal Reason DOSE #2, COVID-19 VACCINE 2020-06-02 00:00:00 DOSE #1, COVID-19 VACCINE 2020-05-04 00:00:00 PNEUMOCOCCAL (PPV), PPV 2020-05-04 00:00:00 INFLUENZA, TIV (INACTIVATED) 2020-01-18 00:00:00 SINGLE DOSE REGIMEN, COVID-19 VACCINE 2019-12-22 00:00:00 Vital Signs Vital Name Observation Time Observation Value Commen ts Temperature 2021-03-12 11:05:00.000 98 [degF] Temperature 2021-02-28 12:27:00.000 98.2 [degF] Temperature 2021-02-26 10:07:00.000 97.9 [degF] Temperature 2021-02-20 10:48:00.000 97.7 [degF] Temperature 2021-02-16 12:16:00.000 97.7 [degF] Temperature 2021-02-14 11:17:00.000 98.1 [degF] Temperature 2021-02-12 10:43:00.000 97.7 [degF] Temperature 2021-02-10 13:00:00.000 98 [degF] Height 2021-02-10 13:00:00.000 67 [in_us] Pulse 2021-03-12 11:05:00.000 70 /min Pulse 2021-02-28 12:27:00.000 71 /min Pulse 2021-02-26 10:07:00.000 70 /min Pulse 2021-02-20 10:48:00.000 77 /min Pulse 2021-02-16 12:16:00.000 90 /min Pulse 2021-02-14 11:17:00.000 72 /min Pulse 2021-02-12 10:43:00.000 67 /min Pulse 2021-02-10 13:00:00.000 72 /min O2 Saturation (%) 2021-03-12 11:05:00.000 98 % O2 Saturation (%) 2021-02-28 12:27:00.000 96 % O2 Saturation (%) 2021-02-26 10:07:00.000 97 % O2 Saturation (%) 2021-02-20 10:48:00.000 97 % O2 Saturation (%) 2021-02-16 12:16:00.000 98 % O2 Saturation (%) 2021-02-14 11:17:00.000 97 % O2 Saturation (%) 2021-02-12 10:44:00.000 99 % O2 Saturation (%) 2021-02-10 13:00:00.000 99 % Respirations 2021-03-12 11:05:00.000 18 /min Respirations 2021-02-28 12:27:00.000 18 /min Respirations 2021-02-26 10:12:00.000 20 /min Respirations 2021-02-20 10:48:00.000 18 /min Respirations 2021-02-16 12:16:00.000 18 /min Respirations 2021-02-14 11:17:00.000 18 /min Respirations 2021-02-12 10:43:00.000 18 /min Respirations 2021-02-10 13:00:00.000 18 /min Weight (lbs) 2021-02-26 10:07:00.000 155 [lb_av] Weight (lbs) 2021-02-20 10:48:00.000 155 [lb_av] Weight (lbs) 2021-02-16 12:16:00.000 159 [lb_av] Weight (lbs) 2021-02-14 11:17:00.000 158 [lb_av] Weight (lbs) 2021-02-12 10:43:00.000 160 [lb_av] Weight (lbs) 2021-02-10 13:00:00.000 150 [lb_av] Systolic Blood Pressure 2021-03-12 11:05:00.000 122 mm [Hg] Systolic Blood Pressure 2021-02-28 12:27:00.000 128 mm [Hg] Systolic Blood Pressure 2021-02-26 10:07:00.000 122 mm [Hg] Systolic Blood Pressure 2021-02-20 10:48:00.000 130 mm [Hg] Systolic Blood Pressure 2021-02-16 12:16:00.000 130 mm [Hg] Systolic Blood Pressure 2021-02-14 11:17:00.000 120 mm [Hg] Systolic Blood Pressure 2021-02-12 10:43:00.000 112 mm [Hg] Systolic Blood Pressure 2021-02-10 13:00:00.000 118 mm [Hg] Diastolic Blood Pressure 2021-03-12 11:05:00.000 56 mm [Hg] Diastolic Blood Pressure 2021-02-28 12:27:00.000 60 mm [Hg] Diastolic Blood Pressure 2021-02-26 10:07:00.000 70 mm [Hg] Diastolic Blood Pressure 2021-02-20 10:48:00.000 62 mm [Hg] Diastolic Blood Pressure 2021-02-16 12:16:00.000 80 mm [Hg] Diastolic Blood Pressure 2021-02-14 11:17:00.000 60 mm [Hg] Diastolic Blood Pressure 2021-02-12 10:43:00.000 62 mm [Hg] Diastolic Blood Pressure 2021-02-10 13:00:00.000 60 mm [Hg] Plan of Treatment Planned Activity Planned Date Details Comments Future Scheduled Test SKILLED NU RSE TO ASSESS, EVALUATE, AND DEVELOP AN INDIVIDUALIZED PLAN OF CARE. AGENCY MAY ACCEPT ORDERS FROM CONSULTING PHYSICIANS SN TO OBSERVE/ASSESS RISK FOR FALLS AND INSTRUCT IN FALL PREVENTION, HOME SAFETY, MEDICATION MANAGEMENT, INFECTION PREVENTION, AND NUTRITION MANAGEMENT. SN MAY PERFORM O2 SATURATION LEVEL ON ADMISSION AND PRN FOR TO ASSESS PATIENT, WITH NOTIFICATION TO THE PHYSICIAN IF SATURATION IS 90% IN THE ABSENCE OF MORE SPECIFIC PARAMETERS FROM THE PHYSICIAN. AGENCY MAY PERFORM A RESUMPTION OF CARE VISIT FOLLOWING ANY HOSPITAL ADMISSION. SKILLED NURSE TO ASSESS/EVALUATE CO-MORBID CONDITIONS AND ANY NEW CONDITIONS THAT PRESENT THEMSELVES DURING THIS EPISODE TO IDENTIFY CHANGES AND INTERVENE TO MINIMIZE COMPLICATIONS. [code = SKILLED NURSE TO ASSESS, EVALUATE, AND DEVELOP AN INDIVIDUALIZED PLAN OF CARE. AGENCY MAY ACCEPT ORDERS FROM CONSULTING PHYSICIANS SN TO OBSERVE/ASSESS RISK FOR FALLS AND INSTRUCT IN FALL PREVENTION, HOME SAFETY, MEDICATION MANAGEMENT, INFECTION PREVENTION, AND NUTRITION MANAGEMENT. SN MAY PERFORM O2 SATURATION LEVEL ON ADMISSION AND PRN FOR TO ASSESS PATIENT, WITH NOTIFICATION TO THE PHYSICIAN IF SATURATION IS 90% IN THE ABSENCE OF MORE SPECIFIC PARAMETERS FROM THE PHYSICIAN. AGENCY MAY PERFORM A RESUMPTION OF CARE VISIT FOLLOWING ANY HOSPITAL ADMISSION. SKILLED NURSE TO ASSESS/EVALUATE CO-MORBID CONDITIONS AND ANY NEW CONDITIONS THAT PRESENT THEMSELVES DURING THIS EPISODE TO IDENTIFY CHANGES AND INTERVENE TO MINIMIZE COMPLICATIONS.] Future Scheduled Test MEDICATION MANAGEMENT; SKILLED NURSE TO REVIEW MEDICATIONS FOR INTERACTIONS, EFFECTIVENESS OF DRUG THERAPY, AND SIGNS/SYMPTOMS OF ADVERSE REACTIONS. MAY INSTRUCT AND REINFORCE MEDICATION TEACHING RELATED TO THE USE OF MEDICATIONS, DOSAGE, FREQUENCY, PURPOSE, SIDE EFFECTS, AND TO REPORT COMPLICATIONS. [code = MEDICATION MANAGEMENT; SKILLED NURSE TO REVIEW MEDICATIONS FOR INTERACTIONS, EFFECTIVENESS OF DRUG THERAPY, AND SIGNS/SYMPTOMS OF ADVERSE REACTIONS. MAY INSTRUCT AND REINFORCE MEDICATION TEACHING RELATED TO THE USE OF MEDICATIONS, DOSAGE, FREQUENCY, PURPOSE, SIDE EFFECTS, AND TO REPORT COMPLICATIONS.] Future Scheduled Test RISK FOR H OSPITALIZATION; SKILLED NURSE TO INSTRUCT PATIENT ON RISK FOR HOSPITALIZATION, TEACH SIGNS AND SYMPTOMS THAT PUT PATIENT AT RISK, WHEN TO NOTIFY NURSE OF COMPLICATIONS/DECLINE, AND WHEN TO CALL 911. SKILLED NURSE TO INSTRUCT PATIENT ON: SIGNS AND SYMPTOMS TO BE ON ALERT FOR EARLY INTERVENTION, PRIOR TO NEEDING EMERGENCY SERVICES CALL [facility] NURSE TO KEEP ABNORMAL PSYCHOLOGY TEACHER SYMPTOM REPORT FOR VISIBLE REFERENCE NOTIFY SKILLED NURSE/PHYSICIAN FOR DECLINE IN STATS WHEN AND HOW TO CALL HOME HEALTH AGENCY FACILITATE PHYSICIAN FOLLOW UP APPOINTMENT IDENTIFY SOCIOECONOMIC CONCERNS AND MAKE APPROPRIATE REFERRAL NEEDED [code = RISK FOR HOSPITALIZATION; SKILLED NURSE TO INSTRUCT PATIENT ON RISK FOR HOSPITALIZATION, TEACH SIGNS AND SYMPTOMS THAT PUT PATIENT AT RISK, WHEN TO NOTIFY NURSE OF COMPLICATIONS/DECLINE, AND WHEN TO CALL 911. SKILLED NURSE TO INSTRUCT PATIENT ON: SIGNS AND SYMPTOMS TO BE ON ALERT FOR EARLY INTERVENTION, PRIOR TO NEEDING EMERGENCY SERVICES CALL [facility] NURSE TO KEEP ABNORMAL PSYCHOLOGY TEACHER SYMPTOM REPORT FOR VISIBLE REFERENCE NOTIFY SKILLED NURSE/PHYSICIAN FOR DECLINE IN STATS WHEN AND HOW TO CALL HOME HEALTH AGENCY FACILITATE PHYSICIAN FOLLOW UP APPOINTMENT IDENTIFY SOCIOECONOMIC CONCERNS AND MAKE APPROPRIATE REFERRAL NEEDED] Future Scheduled Test CARDIOVASC ULAR SYSTEM; SKILLED NURSE TO ASSESS AND TEACH RELATED TO ALTERED CARDIOVASCULAR STATUS R/T AN NE TO MINIMIZE COMPLICATIONS AND REDUCE HOSPITALIZATION. [code = CARDIOVASCULAR SYSTEM; SKILLED NURSE TO ASSESS AND TEACH RELATED TO ALTERED CARDIOVASCULAR STATUS R/T AN NE TO MINIMIZE COMPLICATIONS AND REDUCE HOSPITALIZATION.] Future Scheduled Test HEART FAIL URE; SKILLED NURSE TO ASSESS CARDIOPULMONARY SYSTEM TO IDENTIFY SIGNS OF DECOMPENSATION AND INTERVENE TO MINIMIZE THE SEVERITY OF FLUID OVERLOAD. ASSESS PATIENT ABILITY TO MONITOR AND RECORD DAILY WEIGHTS AND VITAL SIGNS, INCLUDING PULSE AND BLOOD PRESSURE; RECORD PATIENT REPORTED WEIGHT, OR WEIGH PATIENT NEEDED. REPORT INCREASED EDEMA OR WEIGHT GAIN OF >2 LBS IN 1 DAY OR >5 LBS IN 1 WEEK OR 5LBS OR MORE OVER TARGET WEIGHT. MAY MEASURE ABDOMINAL GIRTH IF UNABLE TO WEIGH. SCALES AND BP MONITOR TO BE PROVIDED IF NEEDED. [code = HEART FAILURE; SKILLED NURSE TO ASSESS CARDIOPULMONARY SYSTEM TO IDENTIFY SIGNS OF DECOMPENSATION AND INTERVENE TO MINIMIZE THE SEVERITY OF FLUID OVERLOAD. ASSESS PATIENT ABILITY TO MONITOR AND RECORD DAILY WEIGHTS AND VITAL SIGNS, INCLUDING PULSE AND BLOOD PRESSURE; RECORD PATIENT REPORTED WEIGHT, OR WEIGH PATIENT NEEDED. REPORT INCREASED EDEMA OR WEIGHT GAIN OF >2 LBS IN 1 DAY OR >5 LBS IN 1 WEEK OR 5LBS OR MORE OVER TARGET WEIGHT. MAY MEASURE ABDOMINAL GIRTH IF UNABLE TO WEIGH. SCALES AND BP MONITOR TO BE PROVIDED IF NEEDED.] Future Scheduled Test ACUTE MYOC ARDIAL INFARCT; SKILLED NURSE TO ASSESS/TEACH WARNING SIGNS AND SYMPTOMS TO AVOID HOSPITALIZATION. [code = ACUTE MYOCARDIAL INFARCT; SKILLED NURSE TO ASSESS/TEACH WARNING SIGNS AND SYMPTOMS TO AVOID HOSPITALIZATION.] Future Scheduled Test HYPERTENSI ON MANAGEMENT; SKILLED NURSE TO ASSESS/TEACH WARNING SIGNS AND SYMPTOMS TO AVOID HOSPITALIZATION. [code = HYPERTENSION MANAGEMENT; SKILLED NURSE TO ASSESS/TEACH WARNING SIGNS AND SYMPTOMS TO AVOID HOSPITALIZATION.] Future Scheduled Test ATRIAL FIB RILLATION MANAGEMENT; SKILLED NURSE TO ASSESS/TEACH WARNING SIGNS AND SYMPTOMS TO AVOID HOSPITALIZATION. [code = ATRIAL FIBRILLATION MANAGEMENT; SKILLED NURSE TO ASSESS/TEACH WARNING SIGNS AND SYMPTOMS TO AVOID HOSPITALIZATION.] Future Scheduled Test PAIN MANAG EMENT; SKILLED NURSE TO OBSERVE, ASSESS, AND PROVIDE EDUCATION ON PAIN MANAGEMENT TECHNIQUES. [code = PAIN MANAGEMENT; SKILLED NURSE TO OBSERVE, ASSESS, AND PROVIDE EDUCATION ON PAIN MANAGEMENT TECHNIQUES.] Future Scheduled Test RESPIRATOR Y SYSTEM MANAGEMENT; SKILLED NURSE TO ASSESS AND TEACH RELATED TO ALTERED RESPIRATORY STATUS TO MINIMIZE COMPLICATIONS AND REDUCE HOSPITALIZATION. [code = RESPIRATORY SYSTEM MANAGEMENT; SKILLED NURSE TO ASSESS AND TEACH RELATED TO ALTERED RESPIRATORY STATUS TO MINIMIZE COMPLICATIONS AND REDUCE HOSPITALIZATION.] Future Scheduled Test COPD MANAG EMENT; SKILLED NURSE TO ASSESS AND TEACH SIGNS/SYMPTOMS OF COPD EXACERBATION AND PROVIDE EARLY INTERVENTIONS TO MINIMIZE RISK OF HOSPITALIZATION. SKILLED NURSE TO INSTRUCT ON SELF-CARE MANAGEMENT INCLUDING BREATHING TECHNIQUES, AIRWAY CLEARANCE, AND PROPER USE OF COPD MEDICATIONS. ASSESS PATIENT ABILITY TO MONITOR AND RECORD VITALS SIGNS INCLUDING PULSE OXIMETRY AND BLOOD PRESSURE. [code = COPD MANAGEMENT; SKILLED NURSE TO ASSESS AND TEACH SIGNS/SYMPTOMS OF COPD EXACERBATION AND PROVIDE EARLY INTERVENTIONS TO MINIMIZE RISK OF HOSPITALIZATION. SKILLED NURSE TO INSTRUCT ON SELF-CARE MANAGEMENT INCLUDING BREATHING TECHNIQUES, AIRWAY CLEARANCE, AND PROPER USE OF COPD MEDICATIONS. ASSESS PATIENT ABILITY TO MONITOR AND RECORD VITALS SIGNS INCLUDING PULSE OXIMETRY AND BLOOD PRESSURE. ] Future Scheduled Test FALL REDUC TION MANAGEMENT; NURSING TO PROVIDE SKILLED ASSESSMENT, EDUCATION, AND INTERVENTION TO IDENTIFY FALL RISK FACTORS SUCH MEDICATIONS THAT MAY CAUSE DIZZINESS, CHRONIC DISEASES, PSYCHOLOGICAL FACTORS, AND EMPOWER/EDUCATE PATIENT TO MINIMIZE FALL RISK. [code = FALL REDUCTION MANAGEMENT; NURSING TO PROVIDE SKILLED ASSESSMENT, EDUCATION, AND INTERVENTION TO IDENTIFY FALL RISK FACTORS SUCH MEDICATIONS THAT MAY CAUSE DIZZINESS, CHRONIC DISEASES, PSYCHOLOGICAL FACTORS, AND EMPOWER/EDUCATE PATIENT TO MINIMIZE FALL RISK.] Future Scheduled Test DIALYSIS C ENTER; ALL NEEDS RELATED TO ESRD WILL BE MANAGED BY DIALYSIS CENTER. PATIENT RECEIVES DIALYSIS AT [facility] IN [place]. PT GOES THERE TUES THUR AND SAT 6AM TO 11AM [code = DIALYSIS CENTER; ALL NEEDS RELATED TO ESRD WILL BE MANAGED BY DIALYSIS CENTER. PATIENT RECEIVES DIALYSIS AT [facility] C[facility] IN [place]. PT GOES THERE TUES THUR AND SAT 6AM TO 11AM] Future Scheduled Test PRN VISITS ; PATIENT REQUIRES 3 PRN USP VISITS FOR COMPLICATIONS R/T CARDIOVASCULAR STATUS [code = PRN VISITS; PATIENT REQUIRES 3 PRN USP VISITS FOR COMPLICATIONS R/T CARDIOVASCULAR STATUS] Future Scheduled Test AGENCY MAY PERFORM A RESUMPTION OF CARE VISIT FOLLOWING ANY HOSPITAL ADMISSION. PHYSICAL THERAPY TO EVALUATE, ASSESS AND MONITOR, PROVIDE SKILLED THERAPEUTIC INTERVENTION, ACTIVITY, EDUCATION, AND TRAINING TO ADDRESS: TRANSFER TRAINING (PT) GAIT TRAINING (PT) NEUROMUSCULAR RE-EDUCATION / BALANCE RETRAINING (PT) THERAPEUTIC EXERCISES (PT) PHYSICAL THERAPY TO ASSESS AND RECORD PATIENT REPORTED WEIGHT AND NOTIFY CM / COMMUNITY RELATIONS REP FOR MD NOTIFICATION FOR SIGNS AND SYMPTOMS OF EXACERBATION (2LB WEIGHT GAIN IN 1 DAY, 5LBS IN A WEEK OR 5 LBS OVER BASELINE); IDENTIFY FALL RISK FACTORS AND ESTABLISH HOME EXERCISE PROGRAM TO MINIMIZE FALL RISK (PT) [code = AGENCY MAY PERFORM A RESUMPTION OF CARE VISIT FOLLOWING ANY HOSPITAL ADMISSION. PHYSICAL THERAPY TO EVALUATE, ASSESS AND MONITOR, PROVIDE SKILLED THERAPEUTIC INTERVENTION, ACTIVITY, EDUCATION, AND TRAINING TO ADDRESS: TRANSFER TRAINING (PT) GAIT TRAINING (PT) NEUROMUSCULAR RE-EDUCATION / BALANCE RETRAINING (PT) THERAPEUTIC EXERCISES (PT) PHYSICAL THERAPY TO ASSESS AND RECORD PATIENT REPORTED WEIGHT AND NOTIFY CM / COMMUNITY RELATIONS REP FOR MD NOTIFICATION FOR SIGNS AND SYMPTOMS OF EXACERBATION (2LB WEIGHT GAIN IN 1 DAY, 5LBS IN A WEEK OR 5 LBS OVER BASELINE); IDENTIFY FALL RISK FACTORS AND ESTABLISH HOME EXERCISE PROGRAM TO MINIMIZE FALL RISK (PT)] Goal 2021-03-12 Patient Goal - TO GAIN STREN H Goal Provider Goal - A PLAN OF CARE WILL BE ESTABLISHED THAT MEETS THE PATIENTS NEEDS. PATIENT WILL DEMONSTRATE OXYGEN SATURATION WITHIN NORMAL LIMITS OR PATIENTS OPTIMAL LEVEL ESTABLISHED BY THE PHYSICIAN THROUGHOUT CARE. CHANGES TO CO-MORBID CONDITIONS AND ANY NEW CONDITIONS WILL BE IDENTIFIED AND REPORTED TO THE PHYSICIAN. Goal Provider Goal - PATIENT TO VERBALIZE, AND CONSISTENTLY DEMONSTRATE EFFECTIVE, SAFE MANAGEMENT OF MEDICATION INCLUDING KNOWLEDGE OF EFFECTIVENESS, POTENTIAL SIDE EFFECTS AND DRUG REACTIONS AND WHEN TO CONTACT THE APPROPRIATE CARE PROVIDER. PATIENT WILL BE ABLE TO VERBALIZE UNDERSTANDING OF MEDICATION REGIMEN AND ACCURATELY TAKE MEDICATIONS PRESCRIBED WITHOUT ADVERSE EFFECTS BY 02/17 Goal Provider Goal - PATIENT WILL VERBALIZE UNDERSTANDING OF SIGNS AND SYMPTOMS THAT PUT THE PATIENT AT RISK FOR HOSPITALIZATION, WHEN TO NOTIFY SN OF COMPLICATIONS/DECLINE AND WHEN TO CALL 911. Goal Provider Goal - PATIENT WILL VERBALIZE/DEMONSTRATE UNDERSTANDING OF MEASURES TO MANAGE ALTERED CARDIOVASCULAR STATUS BY END OF CERT PERIOD Goal Provider Goal - PATIENT WILL VERBALIZE/DEMONSTRATE AN ABILITY TO ADHERE TO SELF-MANAGEMENT OF HF TO MINIMIZE COMPLICATIONS AND AVOID HOSPITALIZATION BY END OF EPISODE. Goal Provider Goal - PATIENT WILL VERBALIZE/DEMONSTRATE CARE AND SELF-MANAGEMENT OF AMI TO MINIMIZE COMPLICATIONS AND AVOID HOSPITALIZATION BY END OF EPISODE. Goal Provider Goal - PATIENT WILL VERBALIZE/DEMONSTRATE AN ABILITY TO ADHERE TO SELF-MANAGEMENT OF HTN TO MINIMIZE COMPLICATIONS AND AVOID HOSPITALIZATION BY END OF EPISODE. Goal Provider Goal - PATIENT WILL VERBALIZE/DEMONSTRATE AN ABILITY TO ADHERE TO SELF-MANAGEMENT OF ATRIAL FIBRILLATION TO MINIMIZE COMPLICATIONS AND AVOID HOSPITALIZATION BY END OF EPISODE. Goal Provider Goal - PATIENT WILL VERBALIZE / DEMONSTRATE UNDERSTANDING OF PAIN CONTROL MEASURES BY END OF CERT PERIOD Goal Provider Goal - PATIENT / WILL VERBALIZE/DEMONSTRATE UNDERSTANDING OF MEASURES TO MANAGE ALTERED RESPIRATORY STATUS BY END OF EPISODE. Goal Provider Goal - PATIENT WILL VERBALIZE/DEMONSTRATE AN ABILITY TO ADHERE TO SELF-MANAGEMENT OF COPD TO MINIMIZE COMPLICATIONS AND AVOID HOSPITALIZATION BY END OF EPISODE. Goal Provider Goal - PATIENT ABLE TO IDENTIFY FALL RISK FACTORS AND IMPLEMENT STRATEGIES TO MINIMIZE FALL RISK. PATIENT/CAREGIVER WILL VERBALIZE/DEMONSTRATE AN ABILITY TO ADHERE TO FALL REDUCTION SELF MANAGEMENT AND LIFE-STYLE CHANGES AT DISCHARGE. PERSONAL GOAL STATED BY PATIENT WILL BE MET BY END OF CERT PERIOD Goal Provider Goal - Goal Provider Goal - Goal Provider Goal - PT STG: PATIENT WILL DEMONSTRATE IMPROVED TRANSFERS FROM SBA TO INDEPENDENT WITH UE ASSIST WITHIN 4 WEEKS PT STG: PATIENT WILL DEMONSTRATE IMPROVED POSTURE, ADEQUATE STEP LENGTH, CONSISTENT FOOT CLEARANCE AND HEEL STRIKE BILATERALLY TO IMPROVE GAIT PATTERN WITHIN 4 WEEKS PT LTG: PATIENT WILL DEMONSTRATE IMPROVED AMBULATION FROM MIN ASSIST TO INDEPENDENT WITH CANE WITHIN 9 WEEKS PT STG: PATIENT WILL DEMONSTRATE IMPROVING FALL RISK EVIDENCED BY A 4 SECOND DECREASE IN TUG TEST TIME WITHIN 4 WEEKS PT LTG: PATIENT WILL DEMONSTRATE REDUCED FALL RISK EVIDENCED BY TUG TEST (CUT SCORE >11 SECONDS INDICATES INCREASED FALL RISK) IMPROVING FROM 20 SECONDS TO 12 SECONDS WITHIN 9 WEEKS PT STG: PATIENT WILL DEMONSTRATE INDEPENDENCE WITH LOWER EXTREMITY HOME EXERCISE PROGRAM WITHIN 4 WEEKS PT LTG: PATIENT WILL DEMONSTRATE INCREASED STRENGTH OF BILATERAL LES FROM 3+/5 TO 4+/5 WITHIN 9 WEEKS IN ORDER TO IMPROVE SAFETY AND STABILITY WITH GAIT AND TRANSFERS PT GOAL: PATIENTS WEIGHT WILL REMAIN WELL CONTROLLED THROUGHOUT EPISODE OF CARE. PATIENT/CAREGIVER WILL DEMONSTRATE ADHERENCE TO FALL REDUCTION SELF MANAGEMENT TO MINIMIZE FALL RISK BY DISCHARGE. Reason for Visit INDEPENDENT IN THE COMMUNITY Encounters Start Date/Time End Date/Time Encounter Type Admission Type Attending [facility] Care Department Encounter ID Discharge Date Discharge Status Discharge Condition Discharge Reason Percent Goals Met 2021-02-10 00:00:00 2021-03-12 00:00:00 Outpatient NEW ADMISSION ALISSA BACON [facility] [id number] 2021-03-12 00:00:00 DISCHARGE TO HOME OR SELF CARE [facility]DEPENDEN T IN THE COMMUNITY HH OR [facility]- GOALS MET 90.00
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
--- NOTE | 2024-03-11 05:07 | PC.NURSE ---
Pt requesting that staff put her side rail down. education was attempted but she persisted.
[2024-03-11 05:10] LABS: Basophils Absolute Auto 0.1 X10*3/uL (0.0-0.2); Basophils Percent Auto 0.6 % (0-2); Eosinophils Absolute Auto 0.3 X10*3/uL (0.0-0.4); Eosinophils Percent Auto 3.5 % (0-4); Hematocrit 34.4 % (37.0-47.0); Imm Gran Abs Auto 0.04 X10*3/uL (0.00-0.03); Imm Gran Pct Auto 0.4 % (0.0-0.4); Lymphocytes Absolute Auto 1.6 X10*3/uL (1.2-4.9); Lymphocytes Percent Auto 17.5 % (20-40); MANUAL DIFF FLAG NO; Mean Corpuscular Hemoglobin 29.8 pg (27.0-33.0); Mean Corpuscular Volume 93.2 fL (80.0-98.0); Mean Platelet Volume 10.6 fL (9.4-12.3); Monocytes Absolute Auto 0.9 X10*3/uL (0.1-1.2); Monocytes Percent Auto 9.9 % (2-11); Neutrophils Absolute Auto 6.4 x10*3/uL (2.0-8.3); Neutrophils Percent Auto 68.1 % (45-73); Platelet Count 243 X10*3/uL (160-400); Red Blood Count 3.69 X10*6/uL (4.20-5.50); Red Cell Distribution Width 15.7 % (11.0-16.0); White Blood Count 9.4 X10*3/uL (4.8-10.8)
[2024-03-11] MEDS: ondansetron HCL 4 MG/2 ML VIAL IVPUSH ×2 (05:11→14:06)
[2024-03-11] MEDS: Morphine Sulfate 4 MG/ML CARTRIDGE IVPUSH (05:11)
[2024-03-11 05:29] LABS: Alanine Aminotransferase 12 U/L (0-31); Alkaline Phosphatase 85 U/L (39-117); Anion Gap 15 (12-20); Aspartate Amino Transferase 27 U/L (5-31); Bilirubin Direct 0.2 mg/dL (0.0-0.5); Bilirubin Total 0.4 mg/dL (0.0-1.0); Blood Urea Nitrogen 35 mg/dL (9-16); Calcium 9.9 mg/dL (8.4-10.2); Carbon Dioxide 28 mmol/L (22-29); Chloride 102 mmol/L (96-108); Creatinine Clr Calc Pharmacy 8.8; Estimated Glomerular Filt Rate 7; Glucose Random 77 mg/dL (60-115); Lipase 33 U/L (8-78); Magnesium 2.5 mg/dL (1.6-2.6); Potassium 4.9 mmol/L (3.3-5.1); Sodium 140 mmol/L (135-145); Total Protein 6.8 g/dL (6.5-8.0)
[2024-03-11 05:30] LABS: Troponin-I High Sensitivity 17.5 ng/L (<3.5-17.0)
[2024-03-11] MEDS: cefTRIAXone sodium 1 GM VIAL IVPUSH (07:13)
[2024-03-11] MEDS: metroNIDAZOLE/NS 500 MG/100 ML PIGGYBACK 100 MG IV ×2 (07:13→18:14)
--- NOTE | 2024-03-11 07:20 | PC.NURSE ---
no blood cultures needed per MD as pt does not meet SIRS criteria. abx administered per provider order. pt resting comfortably in stretcher in no apparent distress. pending admission at this time. no sob/wob noted. respirations even/unlabored. plan of care ongoing.
--- NOTE | 2024-03-11 08:35 | PHA.MEDREC ---
Addendum entered by Dwayne Hernandez [facility] 03/11/24 08:52: Pt states she a medication that begins with M when her blood pressure is low during dialysis, but could not name the medication, I asked if it was Midodrine, but she could not confirm at the time. Original Note: Pharmacy Consult ? Medication Reconciliation Pharmacy has completed the medication reconciliation. Pt provided med list from pill pack. Confirmed meds with pt. pt no longer takes Renvela. She states she was on oxycodone, but this medication was not working.
--- NOTE | 2024-03-11 09:13 | P.HPHOSP_ITS ---
History of Present Illness Date of Service: 03/11/24 Chief Complaint: abdominal pain and weakness The patient is a 73-year-old male with a past medical history of multiple medical issues including ESRD on hemodialysis Friday, , Friday, cirrhosis status post liver transplant, paroxysmal AFib not on anticoagulation, COPD not on baseline oxygen, GERD, CAD, hypothyroidism who presents to the emergency room with complaints of abdominal pain in the bilateral lower quadrants left greater than right of 3 days' duration. She reports inability to keep oral is down. She reports ongoing nausea. She reports chronic constipation. She reports fevers or chills. In the emergency room, her workup revealed diverticulitis. She was treated with IV Zofran and IV antibiotics. She continues to remain symptomatic with an inability to keep areas and hence will be admitted for further workup and treatment. Review of Systems 2 Review of Systems: Negative except HPI/interval history. [facility] Medical History ESRD (end stage renal disease) on dialysis Congestive heart failure Patient on waiting list for kidney transplant Gout History of transcatheter aortic valve replacement (TAVR) History of blood transfusion GERD (gastroesophageal reflux disease) Anxiety and depression AV fistula Hemodialysis patient COVID-19 vaccine series completed Murmur Hyperkalemia Left inguinal hernia DJD (degenerative joint disease) of thoracic spine Neuropathy End-stage renal disease (ESRD) COPD (chronic obstructive pulmonary disease) Coronary artery disease Bronchitis Asthma Arthritis Anemia Cirrhosis Surgical History Hx of colonoscopy History of liver transplant History of surgery on arm Social History Household Members: None Housing: Apartment Are you a primary post acute care nurse to a significant other at home: No Do you presently have visiting nurse or other home services: No Unable to assess alcohol history related to: Unable to respond Alcohol intake: never Comment: pt refused bed alarm Patient Tobacco Use Status: Former Tobacco user Tobacco use type: Cigarette Cigarette Packs Per Day: 2 Cigarettes Per Day: 40.0 Years Smoked: 25 Smoked in Last 30 Days: No e-Cigarette/Vaping Use: Never Used Second Hand Smoke Exposure: No Use of substances other than those prescribed or required for medical reasons: No Advance Directives: Yes Advance Directives on File: Yes Advance Directives Date on File: 03/08/20 service: No Current occupational status: retired Meds Allergies Allergy/AdvReac Type Severity Reaction Status Date / Time Sulfa (Sulfonamide Allergy Intermediate HIVES Verified 03/11/24 04:57 Antibiotics) Heparin Analogues Allergy Unknown UNKNOWN Verified 03/11/24 04:57 [Heparin Agents] verapamil Allergy Unknown unknown Verified 03/11/24 04:57 Home Medications ?Medication ?Instructions ?Recorded ?Confirmed ?Last Taken ?Type aspirin 81 mg tablet,delayed 81 mg PO DAILY@1200 01/26/20 03/11/24 03/10/24 History release allopurinol 100 mg tablet 100 mg PO DAILY@1200 03/08/20 03/11/24 03/10/24 History cholecalciferol (vitamin D3) 50 1 tab PO DAILY@1200 08/14/20 03/11/24 03/10/24 History mcg (2,000 unit) tablet hydroxyzine HCl 25 mg tablet 1 tab PO TID PRN Itching 08/14/20 03/11/24 04/04/23 History ropinirole 0.5 mg tablet 1 tab PO BEDTIME@2200 08/14/20 03/11/24 03/10/24 History venlafaxine 25 mg tablet 1 tab PO DAILY@1200 08/14/20 03/11/24 03/10/24 History famotidine 20 mg tablet 1 tab PO BID@1200,2200 01/14/22 03/11/24 03/10/24 History rosuvastatin 5 mg tablet 1 tab PO BEDTIME 01/14/22 03/11/24 03/10/24 History levothyroxine 88 mcg tablet 88 mcg PO DAILY@0600 01/20/23 03/11/24 03/10/24 History albuterol sulfate 90 mcg/actuation 1 puff inhalation Q6H PRN 06/09/23 03/11/24 Unknown History aerosol inhaler (Ventolin HFA) Shortness Of Breath Or Wheezing tacrolimus 0.5 mg capsule, 0.5 mg PO BID@1200,2200 07/15/23 03/11/24 03/10/24 History immediate-release folic acid 1 mg tablet 1 mg PO DAILY@1200 02/04/24 03/11/24 03/10/24 History metoprolol tartrate 25 mg tablet 25 mg PO BID@1200,2200 02/04/24 03/11/24 03/10/24 History albuterol sulfate 2.5 mg/3 mL 2.5 mg inhalation Q6H PRN 03/11/24 03/11/24 Unknown History (0.083 %) solution for nebulization Shortness Of Breath Or Wheezing calcium citrate 400 mg PO BID@1200,2200 03/11/24 03/11/24 03/10/24 History Physical Exam 2 Vital Signs and Narrative: Vital Signs: Last Vital Signs Temp 98.7 F 03/11/24 06:42 Pulse 60 03/11/24 06:42 Resp 16 03/11/24 06:42 BP 148/62 H 03/11/24 06:42 Pulse Ox 97 03/11/24 06:42 O2 Del Method Room Air 03/11/24 06:42 BMI result Body Mass Index 22.1 Const: Other: Constitutional - Awake and Alert, No apparent distress Eyes - PERRLA, EOMI Cardiovascular - S1S2, RRR, No edema Respiratory - Normal lung expansion, Normal respiratory effort, No respiratory distress, CTA bilaterally Gastrointestinal - mild LLQ TTP without guarding or rebound - No CVA tenderness Extremities - no calf tenderness bilaterally, no swelling Musculoskeletal - Normal inspection, normal ROM Skin - Warm/Dry Neurological - Alert & oriented x3, No focal deficit Psychological - Appropriate affect Results Labs 03/11/24 05:05 03/11/24 05:05 Labs: Laboratory Results - last 24 hr 03/11/24 05:05 MCV 93.2 MCH 29.8 MCHC 32.0 RDW 15.7 Plt Count 243 MPV 10.6 Immature Gran % (Auto) 0.4 Neut % (Auto) 68.1 Lymph % (Auto) 17.5 L Adams % (Auto) 9.9 Eos % (Auto) 3.5 Baso % (Auto) 0.6 Lymph # (Auto) 1.6 Adams # (Auto) 0.9 Eos # (Auto) 0.3 Baso # (Auto) 0.1 Abs Immat Gran (auto) 0.04 H Absolute Neuts (auto) 6.4 Absolute Nucleated RBC 0.000 Nucleated RBC % (auto) 0.0 Anion Gap 15 Estim Creat Clear Calc 8.8 Estimated GFR 7 Random Glucose 77 Calcium 9.9 D Magnesium 2.5 Total Bilirubin 0.4 Direct Bilirubin 0.2 AST 27 ALT 12 Alkaline Phosphatase 85 Troponin I High Sens 17.5 H D Total Protein 6.8 Albumin 3.0 L Lipase 33 Imaging Radiologist's Impressions: Impressions Abdomen/Pelvis CT 03/11/24 04:16 IMPRESSION: 1. Findings suspicious for mild acute uncomplicated diverticulitis of the middle segment of the sigmoid colon. Mild focal inflammatory changes of the middle segment of the sigmoid mesentery are present adjacent to an area of focal asymmetric mural thickening of the sigmoid colon, suspicious for uncomplicated diverticulitis. No free intraperitoneal fluid collections or free intraperitoneal gas. Moderate sigmoid diverticulosis. 2. Marked diffuse calcific atherosclerosis. 3. Marked diffuse renal atrophy unchanged compared with 02/19/2024. Bilateral nonobstructing nephrolithiasis. 4. Chronic multilevel compression deformities of the lumbar spine unchanged compared with 02/19/2024. Electronically signed by: Markos Bazan MD 03/11/2024 05:28 AM [facility] Assessment and Plan (1) Diverticulitis: Status: Acute Plan 73 yo F with multiple medical issues presenting with abdominal pain and found to have diverticulitis. She remains symptomatic despite treatment in the ED and hence will be admitted for further care. 1. Recurrent Diverticulitis unable to take PO will continue IV antibiotics and IVF IV analgesics as needed will ask for GI input given recurrance -- may need eventual scope (unsure of last) 2. ESRD on HD T, TH, S neprhology consult 3. CAD 3a. Paroxysmal atrial fibrillation Continue beta-blockers and statins Not on OAC Continue aspirin 4. COPD At baseline, continue baseline inhalers 5. GERD Continue Pepcid 6. History of Cirrhosis status post liver transplant Continue tacrolimus 7. Hypothyroidism Continue Synthroid Full code DVT prophylaxis, mechanical due to documented heparin Patient with diverticulitis and resultant abdominal pain and nausea, intolerance to oral intake with risk factors of ESRD on hemodialysis as well as liver transplant on anti-rejection drugs, therefore will require intravenous IV antibiotics for the next 48 hours hence will be admitted as inpatient. Quality Stroke Does the patient have a stroke diagnosis?: No VTE Prior VTE?: No VTE Risk Level:: Medical - moderate - high VTE Device Contraindication: N/A - Device Ordered VTE Drug Contraindication: N/A - Med Ordered
--- NOTE | 2024-03-11 10:41 | PC.NURSE ---
sheet of noncontrolled medication found in pt's belongings. medication obtained. verification form filled out/sent to pharmacy.
[2024-03-11] MEDS: Cholecalciferol (Vitamin D3) 25 MCG TABLET 50 MCG PO (11:23)
[2024-03-11] MEDS: Folic Acid 1 MG TABLET PO (11:23)
[2024-03-11] MEDS: Aspirin Enteric Coated 81 MG TABLET.DR PO (11:23)
[2024-03-11] MEDS: Metoprolol Tartrate 25 MG TABLET PO ×2 (11:23→20:48)
[2024-03-11] MEDS: allopurinoL 100 MG TABLET PO (11:23)
[2024-03-11] MEDS: Famotidine 20 MG TABLET PO ×2 (11:23→20:48)
[2024-03-11] MEDS: Levothyroxine Sodium 88 MCG TABLET PO (11:23)
--- NOTE | 2024-03-11 11:39 | P.CNGI_ITS ---
History of Present Illness Data of Consult Service Date: 03/11/24 Requesting physician: Alonzo Pereira Primary Care Provider: Unknown Physician HPI Reason for consult: Diverticulitis 73 YF with history of ESRD (on HD Friday, , Friday), cirrhosis status post liver transplant, paroxysmal AFib not on anticoagulation, COPD not on baseline oxygen, GERD, CAD, hypothyroidism seen at [facility] on 03/11/24 with abdominal pain in the bilateral lower quadrants left greater than right of 3 days' duration. Pt reports she was admitted to [facility] in May, with diverticulitis and was treated with an enema, Miralax and Colace. She notes she has had 3 additional episodes in Jan (of note no diverticulitis noted on imaging studies obtained during ED visits in the past month) Complains of lower abdominal pain radiating to the back with intermittent worsening. Patient complains of nausea and denies fever chills sweating or vomiting, heartburn or dysphagia (except dysphagia with swallowing pills). Pt admits to feeling constipated and feels pain will go away if she is able to have a bowel movement. Pt notes she lost 10 lbs and was able to regain it. 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 Findings suspicious for mild acute uncomplicated diverticulitis of the middle segment of the sigmoid colon. Mild focal inflammatory changes of the middle segment of the sigmoid mesentery are present adjacent to an area of focal asymmetric mural thickening of the sigmoid colon, suspicious for uncomplicated diverticulitis. No free intraperitoneal fluid collections or free intraperitoneal gas. Moderate sigmoid diverticulosis. 2. Marked diffuse calcific atherosclerosis. 3. Marked diffuse renal atrophy unchanged compared with 02/19/2024. Bilateral nonobstructing nephrolithiasis. 4. Chronic multilevel compression deformities of the lumbar spine unchanged compared with 02/19/2024. Review of Systems 2 Review of Systems: Yes all other systems are reviewed and are negative [facility] Past Medical History Medical History ESRD (end stage renal disease) on dialysis Congestive heart failure Patient on waiting list for kidney transplant Gout History of transcatheter aortic valve replacement (TAVR) History of blood transfusion GERD (gastroesophageal reflux disease) Anxiety and depression AV fistula Hemodialysis patient COVID-19 vaccine series completed Murmur Hyperkalemia Left inguinal hernia DJD (degenerative joint disease) of thoracic spine Neuropathy End-stage renal disease (ESRD) COPD (chronic obstructive pulmonary disease) Coronary artery disease Bronchitis Asthma Arthritis Anemia Cirrhosis Surgical History Surgical History (Updated 03/17/24 @ 12:39 by Patria Krueger RN) H/O thyroidectomy H/O hemorrhoidectomy Hx of spinal surgery H/O heart surgery Hx of colonoscopy History of liver transplant History of surgery on arm Social History Social History Household Members: None Housing: Apartment Are you a primary foster care therapist to a significant other at home: No Do you presently have visiting nurse or other home services: No Unable to assess alcohol history related to: Unable to respond Alcohol intake: never Comment: pt refused bed alarm Patient Tobacco Use Status: Former Tobacco user Tobacco use type: Cigarette Cigarette Packs Per Day: 2 Cigarettes Per Day: 40.0 Years Smoked: 25 Smoked in Last 30 Days: No e-Cigarette/Vaping Use: Never Used Second Hand Smoke Exposure: No Use of substances other than those prescribed or required for medical reasons: No Currently Displaying Signs/Symptoms of Drug Intoxication Withdrawal: No Have you been hit, kicked, punched, or otherwise hurt by someone within the past year? If so, by whom?: No Do you feel safe in your current relationship?: No Current Relationship Is there a partner from a previous relationship who is making you feel unsafe now?: No Are you made to feel afraid or neglected: No Are you DNR?: No Advance Directives: Yes Advance Directives Information Provided: Yes Advance Directives on File: Yes Advance Directives Date on File: 09/12/10 Do you have a plan to hurt others: No Plan Recently lost weight without trying: Yes How much weight loss: 2-13 pounds Eating poorly because of decreased appetite: Yes Nutrition screen score: 4 Nutrition Risks: No Nutritional Risk Patient : No : No Poor oral hygiene: Yes (all teeth missing) service: No Current occupational status: retired Meds Allergies Allergy/AdvReac Type Severity Reaction Status Date / Time Sulfa (Sulfonamide Allergy Intermediate HIVES Verified 03/13/24 23:30 Antibiotics) Heparin Analogues Allergy Unknown UNKNOWN Verified 03/13/24 23:30 [Heparin Agents] verapamil Allergy Unknown unknown Verified 03/13/24 23:30 Active Medications: Current Medications Acetaminophen (Acetaminophen 325 Mg Tablet) 650 mg PO Q6H PRN PRN Reason: Pain, Mild (Pain Scale 1-3), fever or headache Albuterol Sulfate (Albuterol Sulfate (0.083%) 2.5 Mg/3 Ml Vial.Neb) 2.5 mg INHALE Q6H PRN PRN Reason: Shortness Of Breath Or Wheezing Allopurinol (Allopurinol 100 Mg Tablet) 100 mg PO DAILY@1200 [facility] Last Admin: 03/11/24 11:23 Dose: 100 mg Aspirin (Aspirin Enteric Coated 81 Mg Tablet.) 81 mg PO DAILY@1200 [facility] Last Admin: 03/11/24 11:23 Dose: 81 mg Atorvastatin Calcium (Atorvastatin Calcium 20 Mg Tablet) 20 mg PO DAILY [facility] Last Admin: 03/11/24 10:18 Dose: Not Given Calcium Carbonate (Calcium Carbonate 750 Mg Tab.Chew) 750 mg PO Q4H PRN PRN Reason: Heartburn Ceftriaxone Sodium (Ceftriaxone Sodium 1 Gm Vial) 1 gm IVPUSH Q24H [facility] Famotidine (Famotidine 20 Mg Tablet) 20 mg PO BID@1200,2200 [facility] Last Admin: 03/11/24 11:23 Dose: 20 mg Folic Acid (Folic Acid 1 Mg Tablet) 1 mg PO DAILY@1200 [facility] Last Admin: 03/11/24 11:23 Dose: 1 mg Hydroxyzine HCl (Hydroxyzine Hcl 25 Mg Tablet) 25 mg PO TID PRN PRN Reason: Itching Metronidazole (Flagyl) 500 mg in 100 mls @ 100 mls/hr IV Q8H [facility] Levothyroxine Sodium (Levothyroxine Sodium 88 Mcg Tablet) 88 mcg PO DAILY@0600 [facility] Last Admin: 03/11/24 11:23 Dose: 88 mcg Magnesium Hydroxide (Milk Of Magnesia 30 Ml Oral.Susp) 30 ml PO DAILY PRN PRN Reason: Constipation Melatonin (Melatonin 3 Mg Tablet) 6 mg PO BEDTIME PRN PRN Reason: Insomnia Metoprolol Tartrate (Metoprolol Tartrate 25 Mg Tablet) 25 mg PO BID@1200,2200 [facility]; Protocol Last Admin: 03/11/24 11:23 Dose: 25 mg Ondansetron HCl (Ondansetron Hcl 4 Mg/2 Ml Vial) 4 mg IVPUSH Q8H PRN PRN Reason: Nausea and Vomiting Ropinirole HCl (Ropinirole Hcl 0.5 Mg Tablet) 0.5 mg PO BEDTIME@2200 [facility] Sodium Chloride (0.9 % Sodium Chloride Flush 3 Ml Syringe) 3 ml IVFLUSH QSHIFT [facility] Tacrolimus (Tacrolimus 0.5 Mg Capsule) 0.5 mg PO BID@1200,2200 [facility] Venlafaxine HCl (Venlafaxine Hcl 25 Mg Tablet) 25 mg PO DAILY@1200 [facility] Vitamin D (Cholecalciferol (Vitamin D3) 25 Mcg Tablet) 50 mcg PO DAILY@1200 [facility] Last Admin: 03/11/24 11:23 Dose: 50 mcg Home Medications ?Medication ?Instructions ?Recorded ?Confirmed ?Last Taken ?Type aspirin 81 mg tablet,delayed 81 mg PO DAILY@1200 01/26/20 03/14/24 03/10/24 History release allopurinol 100 mg tablet 100 mg PO DAILY@1200 03/08/20 03/14/24 03/10/24 History cholecalciferol (vitamin D3) 50 1 tab PO DAILY@1200 08/14/20 03/14/24 03/10/24 History mcg (2,000 unit) tablet hydroxyzine HCl 25 mg tablet 1 tab PO TID PRN Itching 08/14/20 03/14/24 04/04/23 History ropinirole 0.5 mg tablet 1 tab PO BEDTIME@0 08/14/20 03/14/24 03/10/24 History venlafaxine 25 mg tablet 1 tab PO DAILY@1200 08/14/20 03/14/24 03/10/24 History famotidine 20 mg tablet 1 tab PO BID@1200,0 01/14/22 03/14/24 03/10/24 History rosuvastatin 5 mg tablet 1 tab PO BEDTIME 01/14/22 03/14/24 03/10/24 History levothyroxine 88 mcg tablet 88 mcg PO DAILY@0600 01/20/23 03/14/24 03/10/24 History albuterol sulfate 90 mcg/actuation 1 puff inhalation Q6H PRN 06/09/23 03/14/24 Unknown History aerosol inhaler (Ventolin HFA) Shortness Of Breath Or Wheezing tacrolimus 0.5 mg capsule, 0.5 mg PO BID@1200,2200 07/15/23 03/14/24 03/10/24 History immediate-release folic acid 1 mg tablet 1 mg PO DAILY@1200 02/04/24 03/14/24 03/10/24 History metoprolol tartrate 25 mg tablet 25 mg PO BID@1200,2200 02/04/24 03/14/24 03/10/24 History albuterol sulfate 2.5 mg/3 mL 2.5 mg inhalation Q6H PRN 03/11/24 03/14/24 Unknown History (0.083 %) solution for nebulization Shortness Of Breath Or Wheezing calcium citrate 400 mg PO BID@1200,2200 03/11/24 03/14/24 03/10/24 History Physical Exam 2 Vital Signs: Vital Signs: Last Vital Signs Temp 99.1 F 03/11/24 10:10 Pulse 53 03/11/24 10:10 Resp 15 03/11/24 10:10 BP 133/56 L 03/11/24 10:10 Pulse Ox 98 03/11/24 10:10 O2 Del Method Room Air 03/11/24 10:10 BMI result Body Mass Index 22.1 Const: General: no acute distress, alert and awake Resp: Effort & Inspection: normal respiratory effort and able to speak in complete sentences Auscultation: clear to auscultation bilaterally Cardio: Rate: regular rate Rhythm: regular rhythm Heart sounds: S1 normal heart sound present and S2 normal heart sound present GI: Palpation (GI): Soft to palpation and Tenderness to palpation present (GI) (lower abdominal tenderness to palpation) : General: Yes no CVA tenderness Back/Spine/Pelvis: Back: no CVA tenderness Skin: Lesions: no lesions Rashes: no rashes Extrem: General: No edema Results Labs 03/11/24 05:05 03/11/24 05:05 Labs: Short CBC 03/11/24 Range/Units 05:05 WBC 9.4 (4.8-10.8) X10*3/uL Hgb 11.0 L (12.0-16.0) g/dl Hct 34.4 L (37.0-47.0) % Plt Count 243 (160-400) X10*3/uL BMP 03/11/24 05:05 Sodium 140 Potassium 4.9 Chloride 102 Carbon Dioxide 28 BUN 35 H Creatinine 5.77 H* Calcium 9.9 D Liver Function 03/11/24 Range/Units 05:05 Total Bilirubin 0.4 (0.0-1.0) mg/dL Direct Bilirubin 0.2 (0.0-0.5) mg/dL AST 27 (5-31) U/L ALT 12 (0-31) U/L Alkaline Phosphatase 85 (39-117) U/L Albumin 3.0 L (3.5-5.0) g/dL Assessment and Plan (1) Nausea & vomiting: Qualifiers: Vomiting type: unspecified Qualified Code(s): R11.2 - Nausea with vomiting, unspecified Status: Acute (2) Diverticulitis: Status: Acute (3) Abdominal pain: Qualifiers: Abdominal location: left lower quadrant Qualified Code(s): R10.32 - Left lower quadrant pain Status: Acute (4) Liver transplant recipient: Status: Acute Plan 73 YF with history of ESRD (on HD Friday, , Friday), cirrhosis status post liver transplant, paroxysmal AFib not on anticoagulation, COPD not on baseline oxygen, GERD, CAD, hypothyroidism seen at [facility] on 03/11/24 with abdominal pain in the bilateral lower quadrants left greater than right of 3 days' duration. Pt reports she was admitted to [facility] in May, with diverticulitis and was treated with an enema, Miralax and Colace. Abd CT scan showed findings suspicious for mild acute uncomplicated diverticulitis of the middle segment of the sigmoid colon. Pt also complains of feeling constipated RECOMMENDATIONS: 1. Agree with IV antibiotics, pain medications and anti emetics 2. Pt will need further evaluation with a colonoscopy 4-6 weeks after resolution of diverticulitis 3. Miralax twice daily for constipation after pt's acute pain symptoms improve Procedures Date of Service Date of Service: 03/17/24
[2024-03-11] MEDS: Venlafaxine HCL 25 MG TABLET PO (11:56)
[2024-03-11] MEDS: Tacrolimus 0.5 MG CAPSULE PO ×2 (11:56→21:05)
--- NOTE | 2024-03-11 11:57 | PC.NURSE ---
medication delivered from pharmacy/administered. pt verbalizing increase in pain at this time - requesting medication other than tylenol. admitting provider notified/aware of pt request. pt otherwise waiting to go to dialysis at this time. plan of care ongoing.
--- NOTE | 2024-03-11 12:01 | PM.CNNEP ---
History of Present Illness Reason for Consult Consult date: 03/11/24 Chief Complaint Chief complaint: Abdominal pain, nausea, weakness History of Present Illness Narrative: 73 y/o female with ESRD on HD (, Fri). She is a patient of Dr Umanzor. 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 she has had multiple admissions recently, most recently discharged 02/22 for failure to thrive. she presented 03/11 a.m. with lower abdominal pain, CT suggestive of diverticulitis, being treated wtih IV abx. Nephrology consulted for ESRD and HD management while hospitalized. Pt reports last HD session was on Friday, 03/09, and she has not missed any sessions recently. labs stable she states she feels tired and abdominal pain continues, denies other concerns/complaints. Review of Systems Constitutional: Reports fatigue and Denies headache(s) Denies dizziness and Denies headache(s) Cardiovascular: Denies chest pain, Denies leg edema, Denies lightheadedness and Denies dyspnea Respiratory: Denies cough and Denies dyspnea Gastrointestinal: Reports abdominal pain (pain across lower abdomen per pt ), Reports constipation, Denies diarrhea, Denies nausea and Denies vomiting Genitourinary: Denies hematuria, Denies difficulty voiding, Denies dysuria and Denies flank pain Musculoskeletal: Denies back pain and Denies arthralgias Skin/Breast: Denies rash Denies dizziness and Denies headache(s) Endocrine: Reports fatigue PMFSH Past Medical History Medical History ESRD (end stage renal disease) on dialysis Congestive heart failure Patient on waiting list for kidney transplant Gout History of transcatheter aortic valve replacement (TAVR) History of blood transfusion GERD (gastroesophageal reflux disease) Anxiety and depression AV fistula Hemodialysis patient COVID-19 vaccine series completed Murmur Hyperkalemia Left inguinal hernia DJD (degenerative joint disease) of thoracic spine Neuropathy End-stage renal disease (ESRD) COPD (chronic obstructive pulmonary disease) Coronary artery disease Bronchitis Asthma Arthritis Anemia Cirrhosis Surgical History Surgical History Hx of colonoscopy History of liver transplant History of surgery on arm Social History Social History Household Members: None Housing: Apartment Are you a primary child care cook to a significant other at home: No Do you presently have visiting nurse or other home services: No Unable to assess alcohol history related to: Unable to respond Alcohol intake: never Comment: pt refused bed alarm Patient Tobacco Use Status: Former Tobacco user Tobacco use type: Cigarette Cigarette Packs Per Day: 2 Cigarettes Per Day: 40.0 Years Smoked: 25 Smoked in Last 30 Days: No e-Cigarette/Vaping Use: Never Used Second Hand Smoke Exposure: No Use of substances other than those prescribed or required for medical reasons: No Advance Directives: Yes Advance Directives on File: Yes Advance Directives Date on File: 03/08/20 service: No Current occupational status: retired Meds Allergies Allergy/AdvReac Type Severity Reaction Status Date / Time Sulfa (Sulfonamide Allergy Intermediate HIVES Verified 03/11/24 04:57 Antibiotics) Heparin Analogues Allergy Unknown UNKNOWN Verified 03/11/24 04:57 [Heparin Agents] verapamil Allergy Unknown unknown Verified 03/11/24 04:57 Active Medications: Current Medications Acetaminophen (Acetaminophen 325 Mg Tablet) 650 mg PO Q6H PRN PRN Reason: Pain, Mild (Pain Scale 1-3), fever or headache Albuterol Sulfate (Albuterol Sulfate (0.083%) 2.5 Mg/3 Ml Vial.Neb) 2.5 mg INHALE Q6H PRN PRN Reason: Shortness Of Breath Or Wheezing Allopurinol (Allopurinol 100 Mg Tablet) 100 mg PO DAILY@1200 [facility] Last Admin: 03/11/24 11:23 Dose: 100 mg Aspirin (Aspirin Enteric Coated 81 Mg Tablet.Dr) 81 mg PO DAILY@1200 [facility] Last Admin: 03/11/24 11:23 Dose: 81 mg Atorvastatin Calcium (Atorvastatin Calcium 20 Mg Tablet) 20 mg PO DAILY [facility] Last Admin: 03/11/24 10:18 Dose: Not Given Calcium Carbonate (Calcium Carbonate 750 Mg Tab.Chew) 750 mg PO Q4H PRN PRN Reason: Heartburn Ceftriaxone Sodium (Ceftriaxone Sodium 1 Gm Vial) 1 gm IVPUSH Q24H [facility] Famotidine (Famotidine 20 Mg Tablet) 20 mg PO BID@1200,2200 [facility] Last Admin: 03/11/24 11:23 Dose: 20 mg Folic Acid (Folic Acid 1 Mg Tablet) 1 mg PO DAILY@1200 [facility] Last Admin: 03/11/24 11:23 Dose: 1 mg Hydroxyzine HCl (Hydroxyzine Hcl 25 Mg Tablet) 25 mg PO TID PRN PRN Reason: Itching Metronidazole (Flagyl) 500 mg in 100 mls @ 100 mls/hr IV Q8H [facility] Levothyroxine Sodium (Levothyroxine Sodium 88 Mcg Tablet) 88 mcg PO DAILY@0600 [facility] Last Admin: 03/11/24 11:23 Dose: 88 mcg Magnesium Hydroxide (Milk Of Magnesia 30 Ml Oral.Susp) 30 ml PO DAILY PRN PRN Reason: Constipation Melatonin (Melatonin 3 Mg Tablet) 6 mg PO BEDTIME PRN PRN Reason: Insomnia Metoprolol Tartrate (Metoprolol Tartrate 25 Mg Tablet) 25 mg PO BID@1200,2200 [facility]; Protocol Last Admin: 03/11/24 11:23 Dose: 25 mg Ondansetron HCl (Ondansetron Hcl 4 Mg/2 Ml Vial) 4 mg IVPUSH Q8H PRN PRN Reason: Nausea and Vomiting Ropinirole HCl (Ropinirole Hcl 0.5 Mg Tablet) 0.5 mg PO BEDTIME@2200 [facility] Sodium Chloride (0.9 % Sodium Chloride Flush 3 Ml Syringe) 3 ml IVFLUSH QSHIFT [facility] Tacrolimus (Tacrolimus 0.5 Mg Capsule) 0.5 mg PO BID@1200,2200 [facility] Last Admin: 03/11/24 11:56 Dose: 0.5 mg Venlafaxine HCl (Venlafaxine Hcl 25 Mg Tablet) 25 mg PO DAILY@1200 [facility] Last Admin: 03/11/24 11:56 Dose: 25 mg Vitamin D (Cholecalciferol (Vitamin D3) 25 Mcg Tablet) 50 mcg PO DAILY@1200 [facility] Last Admin: 03/11/24 11:23 Dose: 50 mcg Home Medications ?Medication ?Instructions ?Recorded ?Confirmed ?Last Taken ?Type aspirin 81 mg tablet,delayed 81 mg PO DAILY@1200 01/26/20 03/11/24 03/10/24 History release allopurinol 100 mg tablet 100 mg PO DAILY@1200 03/08/20 03/11/24 03/10/24 History cholecalciferol (vitamin D3) 50 1 tab PO DAILY@1200 08/14/20 03/11/24 03/10/24 History mcg (2,000 unit) tablet hydroxyzine HCl 25 mg tablet 1 tab PO TID PRN Itching 08/14/20 03/11/24 04/04/23 History ropinirole 0.5 mg tablet 1 tab PO BEDTIME@2200 08/14/20 03/11/24 03/10/24 History venlafaxine 25 mg tablet 1 tab PO DAILY@1200 08/14/20 03/11/24 03/10/24 History famotidine 20 mg tablet 1 tab PO BID@1200,2200 01/14/22 03/11/24 03/10/24 History rosuvastatin 5 mg tablet 1 tab PO BEDTIME 01/14/22 03/11/24 03/10/24 History levothyroxine 88 mcg tablet 88 mcg PO DAILY@0600 01/20/23 03/11/24 03/10/24 History albuterol sulfate 90 mcg/actuation 1 puff inhalation Q6H PRN 06/09/23 03/11/24 Unknown History aerosol inhaler (Ventolin HFA) Shortness Of Breath Or Wheezing tacrolimus 0.5 mg capsule, 0.5 mg PO BID@1200,2200 07/15/23 03/11/24 03/10/24 History immediate-release folic acid 1 mg tablet 1 mg PO DAILY@1200 02/04/24 03/11/24 03/10/24 History metoprolol tartrate 25 mg tablet 25 mg PO BID@1200,2200 02/04/24 03/11/24 03/10/24 History albuterol sulfate 2.5 mg/3 mL 2.5 mg inhalation Q6H PRN 03/11/24 03/11/24 Unknown History (0.083 %) solution for nebulization Shortness Of Breath Or Wheezing calcium citrate 400 mg PO BID@1200,2200 03/11/24 03/11/24 03/10/24 History Physical Exam Vital Signs: Last Vital Signs Temp 99.1 F 03/11/24 10:10 Pulse 53 03/11/24 10:10 Resp 15 03/11/24 10:10 BP 133/56 L 03/11/24 10:10 Pulse Ox 98 03/11/24 10:10 O2 Del Method Room Air 03/11/24 10:10 BMI result Body Mass Index 22.1 Const General: no acute distress, alert and awake Resp Effort & Inspection: normal respiratory effort and able to speak in complete sentences Auscultation: clear to auscultation bilaterally Cardio Rate: regular rate Rhythm: regular rhythm Heart sounds: S1 normal heart sound present and S2 normal heart sound present GI Palpation (GI): Soft to palpation and Tenderness to palpation present (GI) (lower abdominal tenderness to palpation) General: Yes no CVA tenderness Back/Spine/Pelvis Back: no CVA tenderness Skin Lesions: no lesions Rashes: no rashes Extrem General: No edema Results Lab Results 03/11/24 05:05 03/11/24 05:05 Lab results: Chemistry 03/11/24 05:05 Sodium 140 Potassium 4.9 Carbon Dioxide 28 BUN 35 H Creatinine 5.77 H* Calcium 9.9 D Hematology 03/11/24 05:05 WBC 9.4 Hgb 11.0 L Plt Count 243 Assessment and Plan (1) ESRD (end stage renal disease) on dialysis: Status: Acute Plan 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 HD , , Sat schedule as outpatient ([facility]) - plan for HD today to stay on outpatient schedule no uremic symptoms pt appears euvolemic 02/22 H&H 11.0 and 34.4, no indication for procrit at this time potassium normal, not metabolically acidotic at this time calcium within normal limits phosphorous 2.5 on 02/19, will re-check updated level has left upper extremity AV fistula with +bruit, +thrill oliguric at baseline (small amount every few days per pt) Will continue to follow Discussed with Dr Schilling Procedures Date of Service Date of Service: 03/11/24
--- NOTE | 2024-03-11 12:55 | PC.NURSE ---
pt to dialysis at this time.
[2024-03-11] MEDS: Morphine Sulfate 2 MG/ML CARTRIDGE IVPUSH ×2 (14:06→20:48)
--- NOTE | 2024-03-11 14:10 | PC.NURSE ---
pt remains off unit at dialysis - bee rancher notified this RN that pt has an increase in lower abdominal pain/requesting medication other than Tylenol. admitting provider notified/aware. medication obtained/administered by this RN while pt was receiving dialysis treatment. will resume care of pt when she returns to the ED.
[2024-03-11] MEDS: hydrOXYzine HCL 25 MG TABLET PO (20:48)
[2024-03-11] MEDS: Melatonin 3 MG TABLET 6 MG PO (20:49)
[2024-03-11] MEDS: rOPINIRole HCL 0.5 MG TABLET PO (21:05)
[2024-03-12] VITALS: BP 108/69; PULSE 59; RESP 18; TEMP 36.9; O2SAT 99
--- NOTE | 2024-03-12 00:45 | MHC.EDTECH ---
this tech took over care @[phone]
[2024-03-12] MEDS: metroNIDAZOLE/NS 500 MG/100 ML PIGGYBACK 100 MG IV ×2 (01:46→10:27)
[2024-03-12 05:21] VITALS: BP 99/52; PULSE 50; RESP 16; TEMP 37.1; O2SAT 96
[2024-03-12] MEDS: Levothyroxine Sodium 88 MCG TABLET PO (06:29)
[2024-03-12 07:37] VITALS: BP 119/63; PULSE 55; RESP 13; TEMP 36.3; O2SAT 98
[2024-03-12] MEDS: cefTRIAXone sodium 1 GM VIAL IVPUSH (07:51)
--- NOTE | 2024-03-12 08:35 | PM.PNNEP ---
Subjective Subjective Date of Service: 03/12/24 Interval history: 73 y/o female with ESRD on HD (, , Fri). She is a patient of Dr Umanzor. 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 she has had multiple admissions recently, most recently discharged 02/22 for failure to thrive. she presented 03/11 a.m. with lower abdominal pain, CT suggestive of diverticulitis, being treated wtih IV abx. Nephrology consulted for ESRD and HD management while hospitalized. she has not missed any sessions recently. labs stable she states she feels tired and not sleeping well in hospital- she reports her abdominal pain has improved though not resolved. Physical Exam Vital Signs: Vital Signs: Last Vital Signs Temp 97.4 F 03/12/24 07:37 Pulse 55 03/12/24 07:37 Resp 13 03/12/24 07:37 BP 119/63 03/12/24 07:37 Pulse Ox 98 03/12/24 07:37 O2 Del Method Room Air 03/12/24 07:37 BMI result Body Mass Index 22.1 Const: General: no acute distress, alert and awake Resp: Effort & Inspection: normal respiratory effort and able to speak in complete sentences Auscultation: clear to auscultation bilaterally Cardio: Rate: regular rate Rhythm: regular rhythm Heart sounds: S1 normal heart sound present and S2 normal heart sound present GI: Palpation (GI): Soft to palpation and Tenderness to palpation present (GI) (lower abdominal tenderness to palpation) : General: Yes no CVA tenderness Back/Spine/Pelvis: Back: no CVA tenderness Skin: Lesions: no lesions Rashes: no rashes Extrem: General: No edema Objective Data Labs 03/11/24 05:05 03/11/24 05:05 Procedures Date of Service Date of Service: 03/12/24 Assessment & Plan Assessment and plan (1) ESRD (end stage renal disease) on dialysis: Status: Acute (2) Abdominal pain: Status: Acute Plan 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 HD , , Fri schedule as outpatient ([facility]), pt had HD yesterday and tolerated well. no uremic symptoms pt appears euvolemic 02/22 H&H 11.0 and 34.4, no indication for procrit at this time potassium normal, not metabolically acidotic at this time calcium within normal limits phosphorous 2.5 on 02/19 has left upper extremity AV fistula with +bruit, +thrill oliguric at baseline (small amount every few days per pt) recommend celaic axis angio to rule out stenosis given recurrent hospitalizations for abdominal pain Will continue to follow Discussed with Dr Dennison Time Spent With Patient Time: Total time managing care of this patient today ____ minutes. Progress Note: Quality Stroke Does the patient have a stroke diagnosis?: No
[2024-03-12] MEDS: Atorvastatin Calcium 20 MG TABLET PO (08:58)
--- NOTE | 2024-03-12 09:42 | PM.DS ---
DS: Providers Provider Date of Service: 03/12/24 Date of admission: 03/11/24 09:09 Date of discharge: 03/12/24 Primary care physician: Vanessa Hu MD Consults: 03/11/24 09:09 Consult to Gastroenterology Routine Consulting Provider: Fabian Alonzo Reason for consultation: recurrent diverticulitis Consult to Nephrology Routine Consulting Provider: [facility] Reason for consultation: ESRD on HD DS: Diagnosis Discharge Diagnosis (1) Nausea & vomiting: Status: Acute (2) Diverticulitis: Status: Acute (3) Abdominal pain: Status: Acute (4) Liver transplant recipient: Status: Acute DS: Summary Hospital Course Hospital Course: HPI From admission H&P: The patient is a 73-year-old male with a past medical history of multiple medical issues including ESRD on hemodialysis Friday, , Friday, cirrhosis status post liver transplant, paroxysmal AFib not on anticoagulation, COPD not on baseline oxygen, GERD, CAD, hypothyroidism who presents to the emergency room with complaints of abdominal pain in the bilateral lower quadrants left greater than right of 3 days' duration. She reports inability to keep oral is down. She reports ongoing nausea. She reports chronic constipation. She reports fevers or chills. In the emergency room, her workup revealed diverticulitis. She was treated with IV Zofran and IV antibiotics. She continues to remain symptomatic with an inability to keep areas and hence will be admitted for further workup and treatment. Hospital Course: Patient was admitted and started on IV antibiotics, IV fluids and IV antiemetics as well as IV analgesics. Over the course of 24 hours, the patient improved significantly quicker than expected. Her abdominal pain has essentially resolved and she is tolerant of solids. She was evaluated by GI who recommended MiraLax for chronic constipation which the patient takes as needed. She is advised to take it on a scheduled basis. GI also recommended outpatient follow-up for colonoscopy in 4-6 weeks. Referral has been given. Patient to resume [facility]NA services as before and continue her baseline medications unchanged. Time spent discussing smoking cessation with patient: more than 10 minutes Time Attestation Discharge Coordination Time (in mins): 35 Quality: Safe Use of Opioids Does Pt have an Active Cancer Diagnosis on the Problem List?: No Quality: Stroke Does the patient have a stroke diagnosis?: No Physical Exam Vital Signs: Vital Signs: Last Vital Signs Temp 97.4 F 03/12/24 07:37 Pulse 55 03/12/24 07:37 Resp 13 03/12/24 07:37 BP 119/63 03/12/24 07:37 Pulse Ox 98 03/12/24 07:37 O2 Del Method Room Air 03/12/24 07:37 BMI result Body Mass Index 22.1 Const: Other: General - no acute distress, appears comfortable Cardiovascular - regular rate and rhythm, S1-S2 Lungs - normal respiratory effort, clear to auscultation bilaterally, no wheezing Abdomen - soft, nontender, no rebound or guarding Extremities - no edema bilaterally Neuro - awake and alert, no focal deficits DS: Data Data Completed and Pending Completed studies during hospitalization [Text1]: Procedures Performance of Urinary Filtration, Intermittent, Less than 6 Hours Per Day (02/20/24) Supplement Left Inguinal Region with Synthetic Substitute, Open Approach (08/14/20) Discharge Plan Discharge Anticipated Discharge Date/Time: 03/12/24 09:34 Patient Disposition: Home Health Service Discharge Diagnosis: Recurrent diverticulitis Referrals: Vanessa Hu MD [Primary Care Provider] - 1 Week Fabian Alonzo MD [Physician] - 1 Week Discharge Medications: New cefuroxime axetil 500 mg tablet 500 mg PO DAILY Qty: 5 0RF metronidazole 500 mg tablet 500 mg PO Q8H Qty: 15 0RF Continued venlafaxine 25 mg tablet 1 tab PO DAILY@1200 ropinirole 0.5 mg tablet 1 tab PO BEDTIME@2200 hydroxyzine HCl 25 mg tablet 1 tab PO TID PRN (Reason: Itching) cholecalciferol (vitamin D3) 50 mcg (2,000 unit) tablet 1 tab PO DAILY@1200 allopurinol 100 mg tablet 100 mg PO DAILY@1200 famotidine 20 mg tablet 1 tab PO BID@1200,2200 rosuvastatin 5 mg tablet 1 tab PO BEDTIME albuterol sulfate [Ventolin HFA] 90 mcg/actuation HFA aerosol inhaler 1 puff INHALATION Q6H PRN (Reason: Shortness Of Breath Or Wheezing) folic acid 1 mg tablet 1 mg PO DAILY@1200 metoprolol tartrate 25 mg tablet 25 mg PO BID@1200,2200 Protocol: Hold for SBP/HR < HOLD for SBP < : 90 HOLD for HR < : 60 levothyroxine 88 mcg tablet 88 mcg PO DAILY@0600 tacrolimus 0.5 mg capsule 0.5 mg PO BID@1200,2200 albuterol sulfate 2.5 mg /3 mL (0.083 %) solution for nebulization 2.5 mg inhalation Q6H PRN (Reason: Shortness Of Breath Or Wheezing) calcium citrate 200 mg (950 mg) tablet 400 mg PO BID@1200,2200 aspirin 81 mg tablet,delayed release (DR/EC) 81 mg PO DAILY@1200 Discharge Orders: Discharge Order (Routine); Ordered 03/12/24 Ordered By: Alonzo Pereira Diet: Advance to usual diet Activity on Discharge: As tolerated Stand Alone Forms: Patient Portal Discharge page Print Language: Hungarian Care Plan Goals: Finish antibiotics and follow up with GI clinic Health Concerns: Recurrent diverticulitis Plan of Treatment: Finish antibiotics and follow up with GI clinic Assessment: see discharge summary
--- NOTE | 2024-03-12 09:43 | MHC.CM.PN ---
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
--- NOTE | 2024-03-12 13:44 | P.F2F_ITS ---
Service Date Service Date: 03/12/24 Encounter Date of encounter: 03/12/24 Reasons for Services Signs and symptoms assessed: abdominal symptoms medication mgmt Reason for senior care: teach disease management and GI/ assessment Overseeing Care: Vanessa Hu Homebound: Leaving the home is medically contraindicated at this time without the asist of a device and/or another person due th the listed conditions above and below. Reason homebound: unsteady gait / fall risk Homebound supporting statement: Pt with chronic weakness related to multiple medical conditions. Fall risk and unstead gait Certification: Based on the above findings, I certify that this patient is confined to the home and needs intermittent senior care care, physical therapy and/or speech therapy, or continues to need occupational therapy. The patient is under my care, and I have initiated the establishment of the plan of care. The patient will be followed by a physician who will periodically review the plan of care. Time Spent With Patient Time: Total time managing care of this patient today ____ minutes.
== END 2024-03-12 13:39 | disposition home health service (06) | DRG 391 ==
LOC: HO.ED 06:06 → HO.EDOVER 09:20 → HO.S3 03-12 09:26 → HO.EDOVER 03-12 09:37
PROVIDERS: Admitting Provider Family Medicine; Emergency Provider Emergency Medicine; PCP Pediatrics; Visit Provider Family Medicine
DX: K57.32 Diverticulitis of large intestine without perforation or abscess without bleeding (principal); N18.6 End stage renal disease; Z94.4 Liver transplant status; J44.9 Chronic obstructive pulmonary disease, unspecified; K21.9 Gastro-esophageal reflux disease without esophagitis; I48.0 Paroxysmal atrial fibrillation; E03.9 Hypothyroidism, unspecified; Z99.2 Dependence on renal dialysis; I25.119 Atherosclerotic heart disease of native coronary artery with unspecified angina pectoris; Z87.891 Personal history of nicotine dependence; Z79.621 Long term (current) use of calcineurin inhibitor; Z79.82 Long term (current) use of aspirin; Z79.890 Hormone replacement therapy; Z79.899 Other long term (current) drug therapy
CPT/HCPCS: 36415; 74176; 80048; 80076; 83690; 83735; 84484; 85025; 90999; 93005; 99285; J0696; J1836; J2270; J2405

== ENCOUNTER → 2024-03-11 03:58 | Outpatient (BNV) | payer OTHER, SELFPAY | PROVIDERS: Emergency Provider Emergency Medicine; Visit Provider Internal Medicine Cardiovascular Disease | DX: R94.31 Abnormal electrocardiogram [ECG] [EKG] (principal) | CPT/HCPCS: 93010 ==

== ENCOUNTER → 2024-03-11 09:09 | Outpatient (BNV) | payer OTHER, SELFPAY | PROVIDERS: Admitting Provider Family Medicine; Emergency Provider Emergency Medicine; Visit Provider Family Medicine | DX: R11.2 Nausea with vomiting, unspecified (principal); K57.92 Diverticulitis of intestine, part unspecified, without perforation or abscess without bleeding; R10.32 Left lower quadrant pain; Z94.4 Liver transplant status | CPT/HCPCS: 99222; 99239; G0180 ==

== ENCOUNTER → 2024-03-11 09:09 | Outpatient (BNV) | payer OTHER, SELFPAY | PROVIDERS: Admitting Provider Family Medicine; Emergency Provider Emergency Medicine; PCP Pediatrics; Visit Provider Internal Medicine Gastroenterology | DX: K57.92 Diverticulitis of intestine, part unspecified, without perforation or abscess without bleeding (principal); R11.2 Nausea with vomiting, unspecified; Z94.4 Liver transplant status | CPT/HCPCS: 99222 ==

== ENCOUNTER → 2024-03-11 09:09 | Outpatient (BNV) | payer OTHER, SELFPAY | PROVIDERS: Admitting Provider Family Medicine; Emergency Provider Emergency Medicine; Visit Provider Nurse Practitioner Family | DX: N18.6 End stage renal disease (principal); Z99.2 Dependence on renal dialysis; R10.32 Left lower quadrant pain | CPT/HCPCS: 90935; 99232 ==

== ENCOUNTER 2024-03-13 23:21 | Inpatient (IN) | payer OTHER, SELFPAY ==
--- NOTE | ~2024-03-13 | CT_ITS ---
EXAMINATION: CT ABDOMEN AND PELVIS WITHOUT CONTRAST CLINICAL INFORMATION: Left lower quadrant pain. Recent diagnosis of diverticulitis. COMPARISON: CT abdomen and pelvis 03/11/2024. CT abdomen and pelvis 02/19/2024 TECHNIQUE: Multidetector volumetric imaging was performed from the superior aspect of the liver through the pubic symphysis. Sagittal and coronal reformatted images were obtained on the technologist's workstation. This CT examination was performed using dose optimization techniques as appropriate, variously including the following: *Automated exposure control *Adjustment of mA and/or kV according to patient size (this includes techniques or standardized protocols for targeted exams where dose is matched to indication/reason for exam; i.e. extremities or head) *Use of iterative reconstruction technique DLP: 484 mGy-cm FINDINGS: LUNG BASES: Partial visualization of a TAVR stent. Partial visualization of calcific atherosclerotic plaque in the region of the left stem coronary artery, left descending coronary artery and left circumflex coronary artery. LIVER, GALLBLADDER, AND BILIARY TREE: Again noted are multiple surgical clips in the region of the itz hepatis which is previously suggested may relate to prior liver transplantation. The gallbladder is not visualized. Common bile duct measures approximately 1 cm in diameter and may reflect chronic YOVANY ectasia is status post cholecystectomy. PANCREAS: Unremarkable. SPLEEN: Unremarkable. ADRENAL GLANDS: Unremarkable. KIDNEYS AND URETERS: Diffuse bilateral renal atrophy. Scattered rounded renal lesions some of which are definitively low density and are consistent with simple cyst requiring no additional imaging follow-up. Others are too small to specifically characterize but are statistically overwhelmingly likely to be benign. No definitive suspicious renal lesions. No lesions in the kidneys or the additional imaging follow-up on the basis of this examination. Scattered calcifications are present in the kidneys that are suspicious for vascular calcifications or possible renal calculi measuring up to 4 m diameter. BLADDER: Decompressed GASTROINTESTINAL TRACT: Mild concentric mural thickening is noted within the middle segment of the sigmoid colon. Mild reticulation of the adjacent pericolonic fat is present. No free intraperitoneal fluid or gas collections identified. Moderate sigmoid diverticulosis is present. Mild diverticulosis of the descending colon is visualized. Mild-moderate quantity of physiologic stool is present in the ascending transverse colon. The appendix measures 5 mm wall diameter, within normal limits of size. The appendix is normal in appearance. (Series 3 image 65). Overall appearance of the stomach and duodenum. ABDOMINAL WALL: No significant hernia is appreciated. LYMPH NODES: Mildly prominent periaortic lymph nodes are present and a mildly prominent portacaval lymph node is again noted. Findings may be chronic and related to prior liver transplantation. VASCULAR: Diffuse calcific atherosclerosis. PELVIC VISCERA: Uterus is atrophic. No adnexal lesions identified. OSSEOUS STRUCTURES: Vertebroplasty cement noted in the L5 vertebral body compression deformities of the L3, L1 vertebral bodies are unchanged compared with 02/19/2024. Diffuse osteopenia. Multilevel endplate Schmorl's node deformities. CT/CT abdomen pelvis wo IV con IMPRESSION: *Moderate concentric mural thickening of the middle segment of the sigmoid colon and mild reticulation of the adjacent pericolonic fat in the setting of moderate sigmoid diverticulosis. Findings are similar to findings present 03/11/2024 are suspicious for uncomplicated diverticulitis. Findings could alternatively represent sigmoid neoplasm with mild adjacent inflammatory changes., As clinically indicated, consider further evaluation with sigmoidoscopy and direct visualization. No free intraperitoneal fluid or gas collections. No evidence of intestinal perforation or obstruction. *Status post liver transplant. Mild chronic retroperitoneal lymphadenopathy is present with similar findings reported on comparison studies dating back to 12/29/2019. The prominent lymph nodes may be secondary/chronic related to prior liver transplantation. *Status post cholecystectomy. *Diffuse bilateral renal atrophy. 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 Fleischner guidelines were followed. Electronically signed by: Markos Bazan MD 03/14/2024 12:42 AM EST
--- NOTE | ~2024-03-13 | CT_ITS ---
EXAMINATION: CT HEAD WITHOUT CONTRAST CLINICAL INFORMATION: Double vision COMPARISON: CT dated February 10, 2024. TECHNIQUE: Contiguous axial imaging was performed from the skull base to vertex without intravenous administration of contrast. This CT examination was performed using dose optimization techniques as appropriate, variously including the following: *Automated exposure control *Adjustment of mA and/or kV according to patient size (this includes techniques or standardized protocols for targeted exams where dose is matched to indication/reason for exam; i.e. extremities or head) *Use of iterative reconstruction technique DLP: 780 mGy-cm FINDINGS: Bony calvarium is intact. Skull base is intact. Incomplete fusion of the posterior arch of C1. Osteopenia versus osteoporosis. No acute intracranial hemorrhage, mass effect, midline shift, hydrocephalus or herniation. Multifocal patchy and confluent deep periventricular white matter hypodensities involving centrum semiovale, bustillo radiata, extracapsular. Old lacunar infarcts, basal ganglia and bustillo radiata white matter. Prominence of the extra-axial CSF spaces cerebral sulci involving mostly the frontal and to a lesser extent temporal regions. Posterior cranial fossa contents demonstrated no acute intracranial hemorrhage. Calcified plaques, V4 segments and cavernous supraclinoid segments both ICA, trifurcation/bifurcation right MCA and distal basilar artery. Sellar/suprasellar region demonstrated no gross masses or focal hemorrhage. 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 No air-fluid levels in the included paranasal sinuses. Lizy bullosa right middle turbinate. Tympanic cavities and mastoid cells are aerated. Pneumatized petrous apices, congenital. Calcified plaques in the ophthalmic arteries, bilaterally. CT/CT head/brain wo IV con IMPRESSION: No acute intracranial hemorrhage. Small vessel occlusive disease. Superimposed acute ischemia/stroke cannot be excluded. Atherosclerosis disease, intracranial. Focal calcification at the bifurcation//trifurcation right MCA. Calcified aneurysm cannot be excluded. Bifrontal cerebral atrophy Electronically signed by: Nico Pruett MD 03/19/2024 08:20 AM EST
[2024-03-13 23:25] VITALS: BP 122/64; PULSE 66; O2SAT 100
[2024-03-13 23:30] VITALS: BMI 23.2
--- NOTE | 2024-03-13 23:33 | ED_ITS ---
HPI - Abdominal Pain General Chief Complaint: Abdominal Pain Stated Complaint: Discharged 03/13 w/ diverticulitis LL Ab &backpain Time Seen by Provider: 03/13/24 23:27 Source: patient and EMS Mode of arrival: EMS Limitations: no limitations History of Present Illness ED Provider: Dr. Tamiko Mcdonald HPI narrative: Patient comes to the emergency room complaining of abdominal pain. Patient was discharged from the hospital from the inpatient floor. Patient states that the pain got worse. Patient was diagnosed with diverticulitis, discharged with cefuroxime and metronidazole. Patient states that she has been taking her antibiotics but the pain got worse. Patient feeling nauseous, no significant vomiting or diarrhea. Patient states that the pain is now constant Related Data Home Medications ?Medication ?Instructions ?Recorded ?Confirmed aspirin 81 mg tablet,delayed 81 mg PO DAILY@1200 01/26/20 03/11/24 release allopurinol 100 mg tablet 100 mg PO DAILY@1200 03/08/20 03/11/24 cholecalciferol (vitamin D3) 50 1 tab PO DAILY@1200 08/14/20 03/11/24 mcg (2,000 unit) tablet hydroxyzine HCl 25 mg tablet 1 tab PO TID PRN Itching 08/14/20 03/11/24 ropinirole 0.5 mg tablet 1 tab PO BEDTIME@2200 08/14/20 03/11/24 venlafaxine 25 mg tablet 1 tab PO DAILY@1200 08/14/20 03/11/24 famotidine 20 mg tablet 1 tab PO BID@1200,2200 01/14/22 03/11/24 rosuvastatin 5 mg tablet 1 tab PO BEDTIME 01/14/22 03/11/24 levothyroxine 88 mcg tablet 88 mcg PO DAILY@0600 01/20/23 03/11/24 albuterol sulfate 90 mcg/actuation 1 puff inhalation Q6H PRN 06/09/23 03/11/24 aerosol inhaler (Ventolin HFA) Shortness Of Breath Or Wheezing tacrolimus 0.5 mg capsule, 0.5 mg PO BID@1200,2200 07/15/23 03/11/24 immediate-release folic acid 1 mg tablet 1 mg PO DAILY@1200 02/04/24 03/11/24 metoprolol tartrate 25 mg tablet 25 mg PO BID@1200,2200 02/04/24 03/11/24 albuterol sulfate 2.5 mg/3 mL 2.5 mg inhalation Q6H PRN 03/11/24 03/11/24 (0.083 %) solution for nebulization Shortness Of Breath Or Wheezing calcium citrate 400 mg PO BID@1200,2200 03/11/24 03/11/24 Previous Rx's ?Medication ?Instructions ?Recorded cefuroxime axetil 500 mg tablet 500 mg PO DAILY #5 tabs 03/12/24 metronidazole 500 mg tablet 500 mg PO Q8H #15 tabs 03/12/24 Allergies Allergy/AdvReac Type Severity Reaction Status Date / Time Sulfa (Sulfonamide Allergy Intermediate HIVES Verified 03/13/24 23:30 Antibiotics) Heparin Analogues Allergy Unknown UNKNOWN Verified 03/13/24 23:30 [Heparin Agents] verapamil Allergy Unknown unknown Verified 03/13/24 23:30 Review of Systems Review of Systems Constitutional : No Weight loss, No Fever, No Chills, No Night Sweats, No Fatigue, No Malaise ENT/Mouth : No Hearing loss, No Ear Pain, No Nasal Congestion, No Sinus Pain, No Hoarseness, No sore throat, No Rhinorrhea, No Swallowing Difficulty Eyes: No Eye Pain, No Swelling, No Redness, No Foreign Body, No Discharge, No Vision Changes Cardiovascular : No Chest Pain, No SOB, No Dyspnea on Exertion, No Orthopnea, No Edema, No Palpitations Respiratory : No Cough, No Sputum, No Wheezing, No Smoke Exposure, No Dyspnea Gastrointestinal : Complaining of Nausea, No Vomiting, No Diarrhea, No Constipation, complaining of worsening left lower quadrant pain, Genitourinary : no irregular bleeding, No Dysuria, No Urinary Frequency, No Hematuria, No Urinary Incontinence, No Urgency, No Flank Pain, No Urinary Flow Changes, No Hesitancy Musculoskeletal : No joint pain, No Myalgias, No Joint Swelling Skin : No Skin Lesions, No rash Neuro : No Weakness, No Numbness, No Paresthesias, No Loss of Consciousness, No Dizziness, No Headache Psych : No Anxiety/Panic, No Depression, No SI/HI/AH/VH, No Social Issues, Heme/Lymph: No Bruising, No Bleeding,No Lymphadenopathy Endocrine : No Polyuria, No Polydipsia, No Temperature Intolerance [facility] Past Medical History Medical History ESRD (end stage renal disease) on dialysis Congestive heart failure Patient on waiting list for kidney transplant Gout History of transcatheter aortic valve replacement (TAVR) History of blood transfusion GERD (gastroesophageal reflux disease) Anxiety and depression AV fistula Hemodialysis patient COVID-19 vaccine series completed Murmur Hyperkalemia Left inguinal hernia DJD (degenerative joint disease) of thoracic spine Neuropathy End-stage renal disease (ESRD) COPD (chronic obstructive pulmonary disease) Coronary artery disease Bronchitis Asthma Arthritis Anemia Cirrhosis Surgical History Hx of colonoscopy History of liver transplant History of surgery on arm Social History Social History Household Members: None Housing: Apartment Are you a primary ambulatory care nurse to a significant other at home: No Do you presently have visiting nurse or other home services: No Unable to assess alcohol history related to: Unable to respond Alcohol intake: never Comment: pt refused bed alarm Patient Tobacco Use Status: Former Tobacco user Tobacco use type: Cigarette Cigarette Packs Per Day: 2 Cigarettes Per Day: 40.0 Years Smoked: 25 Smoked in Last 30 Days: No e-Cigarette/Vaping Use: Never Used Second Hand Smoke Exposure: No Use of substances other than those prescribed or required for medical reasons: No Advance Directives Date on File: 03/08/20 service: No Current occupational status: retired Physical Exam ED Vital Signs: Vital Signs - 24 hr 03/13/24 23:36 Temperature 97.5 F Pulse Rate 59 Respiratory Rate 16 Blood Pressure 131/67 Pulse Oximetry 100 Oxygen Delivery Method Room Air BMI result Body Mass Index 23.2 Const Other: Appearance: Alert. Oriented X3. No acute distress. Eyes: Pupils equal, round and reactive to light. ENT: Pharynx normal. Neck: Normal inspection. Neck supple. No lymph nodes noted. No crepitus CVS: Normal heart rate and rhythm. Pulses normal. Normal S1 and S2 Respiratory: No respiratory distress. Breath sounds normal. No Wheezing. No rales Abdomen: Soft , tenderness to palpation in left lower quadrant and suprapubic area, no flank pain Skin: Skin warm and dry. Normal skin color. Normal skin turgor. Extremities: No lower extremity edema. No Lacerations. No Rash Neuro: Oriented X 3. No motor deficit. No sensory deficit. Moving all extremities. No slurred speech. CN 2 through 12 grossly intact Psych: calm, cooperative, normal affect Course Course Course Narrative: Patient was discharged yesterday from this facility for diverticulitis, patient states that once she got home, the pain got worse. -patient receiving IV fluids, Zofran, IV antibiotics and morphine -we will repeat CT scan to make sure she is not developing an abscess phlegmon Medical Decision Making Medical Decision Making [facility] Narrative: My interpretation of labs: Patient's hematology and chemistry remain unchanged from previous admission. I discussed the CT scan with Dr. Mcdaniel from Radiology, the CT scan seems to be unchanged. However, inflammatory carcinoma can not be ruled out, patient will likely need eventually a colonoscopy. Overall, patient is still complaining of left lower quadrant pain. I discussed the patient with Dr. Sheikh, patient being admitted Differential Diagnosis Differential Diagnoses: The differential diagnosis associated with the presentation includes (Diverticulitis, inflammatory carcinoma, SBO, perforation, sigmoid abscess) Admission/Observation Consideration of admission/observation: Escalation of care including admission/observation considered Consult Healthcare Provider Management of the patient was discussed with: Hospitalist and Press Setter (Radiology) Lab Data [facility] Lab Attestation statement: I reviewed the patient's lab results. 03/13/24 23:48 03/13/24 23:48 Labs: Lab Results 03/13/24 03/14/24 Range/Units 23:48 00:16 WBC 7.2 (4.8-10.8) X10*3/uL RBC 3.79 L (4.20-5.50) X10*6/uL Hgb 11.3 L (12.0-16.0) g/dl Hct 35.5 L (37.0-47.0) % MCV 93.7 (80.0-98.0) fL MCH 29.8 (27.0-33.0) pg MCHC 31.8 (31.0-35.0) g/dl RDW 15.6 (11.0-16.0) % Plt Count 268 (160-400) X10*3/uL MPV 10.8 (9.4-12.3) fL Immature Gran % (Auto) 0.3 (0.0-0.4) % Neut % (Auto) 69.9 (45-73) % Lymph % (Auto) 15.6 L (20-40) % [place] % (Auto) 10.2 (2-11) % Eos % (Auto) 3.6 (0-4) % Baso % (Auto) 0.4 (0-2) % Lymph # (Auto) 1.1 L (1.2-4.9) X10*3/uL [place] # (Auto) 0.7 (0.1-1.2) X10*3/uL Eos # (Auto) 0.3 (0.0-0.4) X10*3/uL Baso # (Auto) 0.0 (0.0-0.2) X10*3/uL Abs Immat Gran (auto) 0.02 (0.00-0.03) X10*3/uL Absolute Neuts (auto) 5.0 (2.0-8.3) x10*3/uL Absolute Nucleated RBC 0.000 (0.0-0.012) X10*3/uL Nucleated RBC % (auto) 0.0 (0.0-0.2) /100WBC Sodium 139 (135-145) mmol/L Potassium 4.2 (3.3-5.1) mmol/L Chloride 104 (96-108) mmol/L Carbon Dioxide 29 (22-29) mmol/L Anion Gap 10 L (12-20) BUN 17 H (9-16) mg/dL Creatinine 3.33 H (0.5-1.4) mg/dL Estim Creat Clear Calc 15.4 Estimated GFR 14 Random Glucose 105 (60-115) mg/dL Lactic Acid 1.3 (0.5-2.0) mmol/L Calcium 8.0 L D (8.4-10.2) mg/dL Total Bilirubin 0.3 (0.0-1.0) mg/dL Direct Bilirubin 0.2 (0.0-0.5) mg/dL AST 23 (5-31) U/L ALT 10 (0-31) U/L Alkaline Phosphatase 79 (39-117) U/L Total Protein 6.6 (6.5-8.0) g/dL Albumin 2.9 L (3.5-5.0) g/dL Lipase 42 (8-78) U/L Independent Interpretation I performed an independent interpretation of an: CT Scan Radiology Impression Radiologist Impression: FINDINGS: LUNG BASES: Partial visualization of a TAVR stent. Partial visualization of calcific atherosclerotic plaque in the region of the left stem coronary artery, left descending coronary artery and left circumflex coronary artery. LIVER, GALLBLADDER, AND BILIARY TREE: Again noted are multiple surgical clips in the region of the itz hepatis which is previously suggested may relate to prior liver transplantation. The gallbladder is not visualized. Common bile duct measures approximately 1 cm in diameter and may reflect chronic YOVANY ectasia is status post cholecystectomy. PANCREAS: Unremarkable. SPLEEN: Unremarkable. ADRENAL GLANDS: Unremarkable. KIDNEYS AND URETERS: Diffuse bilateral renal atrophy. Scattered rounded renal lesions some of which are definitively low density and are consistent with simple cyst requiring no additional imaging follow-up. Others are too small to specifically characterize but are statistically overwhelmingly likely to be benign. No definitive suspicious renal lesions. No lesions in the kidneys or the additional imaging follow-up on the basis of this examination. Scattered calcifications are present in the kidneys that are suspicious for vascular calcifications or possible renal calculi measuring up to 4 m diameter. BLADDER: Decompressed GASTROINTESTINAL TRACT: Mild concentric mural thickening is noted within the middle segment of the sigmoid colon. Mild reticulation of the adjacent pericolonic fat is present. No free intraperitoneal fluid or gas collections identified. Moderate sigmoid diverticulosis is present. Mild diverticulosis of the descending colon is visualized. Mild-moderate quantity of physiologic stool is present in the ascending transverse colon. The appendix measures 5 mm wall diameter, within normal limits of size. The appendix is normal in appearance. (Series 3 image 65). Overall appearance of the stomach and duodenum. ABDOMINAL WALL: No significant hernia is appreciated. LYMPH NODES: Mildly prominent periaortic lymph nodes are present and a mildly prominent portacaval lymph node is again noted. Findings may be chronic and related to prior liver transplantation. VASCULAR: Diffuse calcific atherosclerosis. PELVIC VISCERA: Uterus is atrophic. No adnexal lesions identified. OSSEOUS STRUCTURES: Vertebroplasty cement noted in the L5 vertebral body compression deformities of the L3, L1 vertebral bodies are unchanged compared with 02/19/2024. Diffuse osteopenia. Multilevel endplate Schmorl's node deformities. CT/CT abdomen pelvis wo IV con IMPRESSION: *Moderate concentric mural thickening of the middle segment of the sigmoid colon and mild reticulation of the adjacent pericolonic fat in the setting of moderate sigmoid diverticulosis. Findings are similar to findings present 03/11/2024 are suspicious for uncomplicated diverticulitis. Findings could alternatively represent sigmoid neoplasm with mild adjacent inflammatory changes., As clinically indicated, consider further evaluation with sigmoidoscopy and direct visualization. No free intraperitoneal fluid or gas collections. No evidence of intestinal perforation or obstruction. *Status post liver transplant. Mild chronic retroperitoneal lymphadenopathy is present with similar findings reported on comparison studies dating back to 12/29/2019. The prominent lymph nodes may be secondary/chronic related to prior liver transplantation. *Status post cholecystectomy. *Diffuse bilateral renal atrophy. 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 Medications Administered Discontinued Medications Generic Name Dose Route Start Last Admin Trade Name Freq PRN Reason Stop Dose Admin Sodium Chloride 1,000 mls @ 999 mls/hr 03/13/24 23:42 03/14/24 00:33 Ns IVCONT 03/14/24 00:42 999 mls/hr .Q1H1M ONE Administration Metronidazole 500 mg in 100 mls @ 100 mls/hr 03/13/24 23:44 03/14/24 00:32 Flagyl IV 03/14/24 00:43 100 mls/hr ONCE ONE Administration Morphine Sulfate 4 mg 03/13/24 23:42 03/14/24 00:33 Morphine Sulfate 4 Mg/Ml Cartridge IVPUSH 03/13/24 23:43 4 mg ONCE ONE Administration Protocol Ondansetron HCl 4 mg 03/13/24 23:42 03/14/24 00:33 Ondansetron Hcl 4 Mg/2 Ml Vial IVPUSH 03/13/24 23:43 4 mg ONCE ONE Administration Critical Care Time Critical Care Time Critical Care Time: Yes Total Critical Care Time: 60 Attestation: I have personally provided critical care time. Time includes review of lab data, radiology results, discussion with consultants, and monitoring for potential decompensation. Intervention performed as documented. Discharge Plan Discharge Clinical Impression: Diverticulitis Patient Disposition: Admitted As Inpatient Prescriptions: No Action venlafaxine 25 mg tablet 1 tab PO DAILY@1200 ropinirole 0.5 mg tablet 1 tab PO BEDTIME@2200 hydroxyzine HCl 25 mg tablet 1 tab PO TID PRN (Reason: Itching) cholecalciferol (vitamin D3) 50 mcg (2,000 unit) tablet 1 tab PO DAILY@1200 allopurinol 100 mg tablet 100 mg PO DAILY@1200 famotidine 20 mg tablet 1 tab PO BID@1200,2200 rosuvastatin 5 mg tablet 1 tab PO BEDTIME albuterol sulfate [Ventolin HFA] 90 mcg/actuation HFA aerosol inhaler 1 puff INHALATION Q6H PRN (Reason: Shortness Of Breath Or Wheezing) folic acid 1 mg tablet 1 mg PO DAILY@1200 metoprolol tartrate 25 mg tablet 25 mg PO BID@1200,2200 Protocol: Hold for SBP/HR < HOLD for SBP < : 90 HOLD for HR < : 60 levothyroxine 88 mcg tablet 88 mcg PO DAILY@0600 tacrolimus 0.5 mg capsule 0.5 mg PO BID@1200,2200 albuterol sulfate 2.5 mg /3 mL (0.083 %) solution for nebulization 2.5 mg inhalation Q6H PRN (Reason: Shortness Of Breath Or Wheezing) calcium citrate 200 mg (950 mg) tablet 400 mg PO BID@1200,2200 cefuroxime axetil 500 mg tablet 500 mg PO DAILY Qty: 5 0RF metronidazole 500 mg tablet 500 mg PO Q8H Qty: 15 0RF aspirin 81 mg tablet,delayed release (DR/EC) 81 mg PO DAILY@1200 Print Language: Mauritanian
[2024-03-13 23:36] VITALS: BP 131/67; PULSE 59; RESP 16; TEMP 36.4; O2SAT 100
[2024-03-13 23:54] LABS: Basophils Percent Auto 0.4 % (0-2); Eosinophils Absolute Auto 0.3 X10*3/uL (0.0-0.4); Eosinophils Percent Auto 3.6 % (0-4); Hematocrit 35.5 % (37.0-47.0); Hemoglobin 11.3 g/dl (12.0-16.0); Imm Gran Abs Auto 0.02 X10*3/uL (0.00-0.03); Imm Gran Pct Auto 0.3 % (0.0-0.4); Lymphocytes Absolute Auto 1.1 X10*3/uL (1.2-4.9); Lymphocytes Percent Auto 15.6 % (20-40); MANUAL DIFF FLAG NO; Mean Corpuscular HGB Conc 31.8 g/dl (31.0-35.0); Mean Corpuscular Hemoglobin 29.8 pg (27.0-33.0); Mean Corpuscular Volume 93.7 fL (80.0-98.0); Mean Platelet Volume 10.8 fL (9.4-12.3); Monocytes Absolute Auto 0.7 X10*3/uL (0.1-1.2); Monocytes Percent Auto 10.2 % (2-11); Neutrophils Percent Auto 69.9 % (45-73); Platelet Count 268 X10*3/uL (160-400); Red Blood Count 3.79 X10*6/uL (4.20-5.50); Red Cell Distribution Width 15.6 % (11.0-16.0); White Blood Count 7.2 X10*3/uL (4.8-10.8)
[2024-03-14] VITALS (11 sets, daily range): BP systolic 142–165; BP diastolic 56–76; PULSE 56–61; RESP 14–18; TEMP 36.1–36.7; O2SAT 97–100
[2024-03-14 00:07] LABS: Alanine Aminotransferase 10 U/L (0-31); Albumin Level 2.9 g/dL (3.5-5.0); Alkaline Phosphatase 79 U/L (39-117); Anion Gap 10 (12-20); Aspartate Amino Transferase 23 U/L (5-31); Bilirubin Direct 0.2 mg/dL (0.0-0.5); Bilirubin Total 0.3 mg/dL (0.0-1.0); Blood Urea Nitrogen 17 mg/dL (9-16); Carbon Dioxide 29 mmol/L (22-29); Chloride 104 mmol/L (96-108); Creatinine Clr Calc Pharmacy 15.4; Estimated Glomerular Filt Rate 14; Glucose Random 105 mg/dL (60-115); Lipase 42 U/L (8-78); Potassium 4.2 mmol/L (3.3-5.1); Sodium 139 mmol/L (135-145); Total Protein 6.6 g/dL (6.5-8.0)
[2024-03-14] MEDS: metroNIDAZOLE/NS 500 MG/100 ML PIGGYBACK 100 MG IV ×3 (00:32→16:33)
[2024-03-14] MEDS: ondansetron HCL 4 MG/2 ML VIAL IVPUSH ×2 (00:33→12:06)
[2024-03-14] MEDS: 0.9 % Sodium Chloride 1,000 ML 999 ML IVCONT (00:33)
[2024-03-14] MEDS: Morphine Sulfate 4 MG/ML CARTRIDGE IVPUSH (00:33)
--- NOTE | 2024-03-14 00:48 | MHC.EDTECH ---
patient states that she does not produce urine due to low kidney function, no urine sample able to be collected
[2024-03-14 00:50] LABS: Lactic Acid 1.3 mmol/L (0.5-2.0)
--- OUTSIDE RECORDS SUMMARY | 2024-03-14 01:19 | XMS_ITS | Data Portability ---
Author Organization [employer] Address [address] [place] [address] Care Team Providers Care Logging Tractor Operator Name Role Phone MAYLIN HDZ Primary Care Provider HIM CCA OTHER Assessment Encounter Date Assessment Date Assessment LastModified by Organization Details LastModified Time 01/19/2024 01/19/2024 I provided real -time medical direction via phone for this encounter, and was available for additional phone based assistance as needed. I have reviewed and agree with the Assessment and Plan as documented by the Skills Trainer. We discussed the diagnostic uncertainty of home [...] to call 911- verbalized understanding of instructions [email or web address] Not available 01/19/2024 14:40:17 01/22/2024 01/22/2024 As noted, we were called to see this patient regarding concerns of rash.Evaluation in the field was performed by my professor of historical theology colleague, as noted above, I provided real-time [...] Assessment and Plan as documented by the Skills Trainer. I provided real-time medical direction via phone [...] Orders doxycycline hyclate 100 mg capsule 2023 [facility], [address] [place] [address], [place], [place], [id number], 09:33:49 ceftriaxone 1 gram solution for injection 2023 [email or web address] 0 Not available 14:37:54 doxycycline hyclate 100 mg tablet 2023 [email or web address] 0 Not available 14:37:54 Benadryl 25 mg capsule 2023 [facility], [address] [place] [address], [id number], 13:31:29 diphenhydra mine 25 mg tablet 2023 024 [email or web address] [facility], [address] [place], [place], [id number], 17:58:06 cephalexin 500 mg capsule 2023 024 [facility], [address] [place] [address], [id number], 13:22:49 Patient TargetsNo targets recorded. Patient InstructionsNo instructions recorded. Reason for Referral None Reported. Medical Equipment None Reported. Allergies Allergen ID Allergen Name Allergen Category Reaction Reaction Severity Criticality Documentation Date Start Date Code Code System Note Provider Name and Address Organization Details Recorded Time 5648 Bactrim medicatio n hives Not available Not available 10/24/2023 01705 9 RxNorm AROLDO DUTTA MD [address] [place] [address],[address], [place], [address] [place] [address] - [employer] 14:26:29 6672 heparin medicatio n Not available [...] % 177 mm[Hg] 79 mm[Hg] Not Available [employer] 4 13:27:47 Date Recorded Body temperature Respiratory rate Body height Heart rate Oxygen saturation Oxygen saturation in Arterial blood by Pulse oximetry Body weight Systolic blood pressure Diastolic blood pressure Provider Name and Address Organization Details Last Updated DateTime 4 98.6 [degF] 16 /min 172.72 cm 84 /min 99 % 99 % 33838.2 08 g 169 mm[Hg] 77 mm[Hg] Not Available [facility] 4 14:18:33 Date Recorded Heart rate Body [...] % 114 mm[Hg] 80 mm[Hg] Not Available [employer] - [employer] 4 15:43:19 Date Recorded Body weight Body temperature Body height Respiratory rate Oxygen saturation Oxygen saturation in Arterial blood by Pulse oximetry Heart rate Systolic blood pressure Diastolic blood pressure Systolic blood pressure Diastolic blood pressure Provider Name and Address Organization Details Last Updated DateTime 4 59529.0 64 g 98.6 [degF] 172.72 cm 16 /min 100 % 100 % 72 /min 91 mm[Hg] 56 mm[Hg] 89 mm[Hg] 58 mm[Hg] Not Available [facility] - production 4 19:44:41 Social History None recorded. Functional Status None recorded. Mental Status None recorded. Family History Nothing Reported. Medical History No medical history recorded. Gynecological HistoryNo gynecological history recorded. Obstetrics History GPAL:G 0 P 0 0 0 0 Past Encounters Encounter ID Performer Location Encounter Start Date Encounter Closed Date Diagnosis/Indication Diagnosis SNOMED-CT Code Diagnosis ICD10 Code [id number] KYE HAMILTON MD [facility] [address] [place] [phone] 10/14/2022 14:51:29 10/15/2022 10:39:37 Skin lesion 24215920 L98.9 [id number] Joshua Garrett MD [facility] [address] [place] [address] 01/28/2023 21:19:48 01/28/2023 23:04:53 Chest pain 98596233 R07.9 [id number] Juma Meyer MD [facility] [address] [place] [address] 04/23/2023 20:53:12 04/24/2023 20:13:39 Abdominal pain 50508989 R10.9 [id number] KYE HAMILTON MD [facility] [address] [place] [address] 06/09/2023 15:21:59 06/09/2023 23:02:23 Abdominal pain 85119535 R10.9 [id number] Fredy Hensley MD [facility] [address] [place] [address] 0 06/27/2023 17:44:57 06/30/2023 18:19:13 Edema of lower extremity 858129300 R60.0 [id number] AROLDO DUTTA MD [facility] [address] [place] [address] 0 10/24/2023 13:27:40 10/24/2023 14:38:24 Tick bite 77029047 W57.XXXA [id number] Jenna Denise MD [facility] - [facility] [address] [place] [address] 0 01/19/2024 14:18:14 01/20/2024 10:25:55 Abscess of abdominal wall 69227397 L02.211 [id number] Garfield Pereira MD [facility] - [facility] [address] [place] [address] 01/22/2024 12:45:18 01/22/2024 22:38:19 Pruritic rash 66672018 L28.2 Cellulitis 772074055 L03 .90 [id number] Kathie Irizarry MD [facility] - [facility] [address] [place] [phone] 02/10/2024 15:30:05 02/10/2024 18:57:02 Hallucinations 1872129 R44.3 [id number] Oneal Mueller MD Main - [facility] [address] [place] [address] 02/19/2024 19:44:39 02/20/2024 16:09:06 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 777323898 N18.6 Health Concerns Section Related Observation LastModified by Organization Detai ls LastModified Time None Recorded Concern Status LastModified by Organization Details LastModified Time None Recorded Advance Directives Directive None Recorded Payers Encounter Date Sequence Insurance Name Policy Number Policy Ely Covered Member ID Ely Member ID Guarantor Name 10/24/2023 1 [facility] - DOS ON OR AFTER 2022 - DUAL ELIGIBLE - CORRECTION OPTIONS AND ONE CARE (MEDICARE REPLACEMENT/ADV ANTAGE - HMO) Guadalupe Chery [id number] Guadalupe Barajas Chery 01/19/2024 1 [facility] - DOS ON OR AFTER 2022 - DUAL ELIGIBLE - CORRECTION OPTIONS AND ONE CARE (MEDICARE REPLACEMENT/ADV ANTAGE - HMO) Guadalupe Chery [id number] Guadalupe Barajas Vik 01/22/2024 1 [facility] - DOS ON OR AFTER 2022 - DUAL ELIGIBLE - CORRECTION OPTIONS AND ONE CARE (MEDICARE REPLACEMENT/ADV ANTAGE - HMO) Guadalupe Chery [id number] Guadalupe Barajas Chery 02/10/2024 1 [facility] - DOS ON OR AFTER 2022 - DUAL ELIGIBLE - CORRECTION OPTIONS AND ONE CARE (MEDICARE REPLACEMENT/ADV ANTAGE - HMO) Guadalupe Chery [id number] Guadalupe Barajas Chery 02/19/2024 1 [facility] - DOS ON OR AFTER 2022 - DUAL ELIGIBLE - CORRECTION OPTIONS AND ONE CARE (MEDICARE REPLACEMENT/ADV ANTAGE - HMO) Guadalupe Chery [id number] Guadalupe Barajas Vik Notes Date Note Type [...] .................... .................... .................... .................... .................... .................... . Skills Trainer Note From Mai Caballero: Pt states found [...] from pcp as needed. Red flags reviewed. Skills Trainer Allergies: Trimethoprim-Sulfame thoxazole .................... .................... .................... .................... .................... .................... .................... . Disposition: Aiyana DUTTA MD [address] [facility],[address], [place], [address], [place] - [employer] 10/24/2023 14:38:20 01/19/2024 text/html HPI: PMhx: Hx [...] of disposition, unable to come into our [facility]. Agrees to inst[facility] referral. Confirmed address, phone [...] .................... .................... .................... .................... .................... .................... ..... Skills Trainer Note From David Javier: [facility] visit for female pt. Pt presents complaining [...] her umbilicus. Pt has seen surgeon and order puller for non healing wounds and tried topical medications without improvement or clear diagnosis. V/S taken as listed. Pt afebrile. Images taken for [facility] review. Lump on abdomen palpated and firm and roughly the size of a half dollar. Consulted with [facility] Dr. Denise who advised pt follow up with transplant surgeon. Dr. Denise ordered 1 g of IM ceftriaxone in addition to 100 mg of oral doxycycline. Reviewed red flags for ED. Pt given medications. Pt education provided. .................... .................... .................... .................... .................... .................... .................... . Disposition: Fulfilled Jenna Denise MD [address] [facility],[address], [place], [address], [facility] - [employer] 01/19/2024 16:20:37 01/22/2024 text/html HPI: Member called [facility] stating she was prescribed doxycycline for a possible abscess on her abdomen. Member reports she has developed a rash, associated with taking the antibiotic. Member c/o rash is mostly on her face, but has spread to her body. Rash is bumpy and itchy. Member denies difficulty breathing, swelling in her mouth or fever. This service writer advised member to d/c the medication. Offered [facility] visit for re-evaluation. Member agreed. .................... .................... .................... .................... .................... .................... .................... . CRC Nurse Triage Notes (Susan Hess): Chief Complaints: Rash PMH: Heart Disease, Organ Transplant, Hypertension, Cancer, COPD/Asthma, CHF Allergies: Doxycycline, Trimethoprim-Sulfame thoxazole Other Allergies: heparin, doxycycline Comments: HPI reviewed- NE .................... .................... .................... .................... .................... .................... .................... . Skills Trainer Note From Shayna Pereira: Pt is a [...] got a shot from one of the professor of historical theology on her right deltoid, followed by 100 [...] Patient is adviced to stop taking doxycycline, medicinal plant picker the new meds prescribed by today? s doc, and to follow up with her PCP or surgeon as per doctors recommendations. Patient is left under the care of her aid. SC8 clear without any incidents .................... .................... .................... .................... .................... .................... .................... . Disposition: Aiyana Pereira MD [address] [facility], [place], [address], [employer] 01/22/2024 18:45:00 02/10/2024 text/html HPI: Member's MEDIA TRAFFIC MANAGER called [facility] requesting home visit for member. [...] is refusing to go to ED. This service writer advised, [facility], they may still refer member [...] .................... .................... .................... .................... .................... .................... . Skills Trainer Note From Chele Dunlap: Patient seated in chair in apartment. hospital social worker with patient. Patient complains of lower [...] work of breathing. Abdomen soft, nontender extremities unremarkable.[facility] orders patient to ED. Patient agrees to ambulance transport at this time.911 system activated report to EMS on scene.SHFD to [place]. .................... .................... .................... .................... .................... .................... .................... . [facility] Consulted: Kathie Irizarry .................... .................... .................... .................... .................... .................... .................... . Disposition: Aiyana Kathie Irizarry MD [address] [facility],[address], [place], [address], [employer] 02/10/2024 16:32:23 02/19/2024 text/html HPI: Member called [...] as it will constipate her, but this service writer told her she has the runs, [...] .................... .................... .................... .................... .................... .................... . Skills Trainer Note From Dvaid Javier: [facility] visit for female pt. Pt presents complaining [...] with hypotension noted. Pt afebrile. Consulted with [facility] Dr. Mueller who advised pt go to ED. Pt stated that she didn't want to go as her MEDIA TRAFFIC MANAGER had just arrived. [facility] asked for recheck of BP which was completed and pt agreed to plan of calling 911 herself in a couple of hours time when her MEDIA TRAFFIC MANAGER is getting ready to leave. Reviewed red flags. Pt education provided. .................... .................... .................... .................... .................... .................... .................... . [facility] Consulted: Oneal Mueller .................... .................... .................... .................... .................... .................... .................... . Disposition: Fulfilled Oneal Mueller MD [address] [facility],[address] [facility], [place], [address], [employer] 02/20/2024 14:28:09 OBGyn Episode No OBEpisode recorded.
--- OUTSIDE RECORDS SUMMARY | 2024-03-14 01:19 | XMS_ITS | Continuity of Care Document ---
Author Organization [employer] Address [address] [place] [address] Care Team Providers Care Asset Card Clerk Name Role Phone MAYLIN HDZ Primary Care Provider [phone] HIM CCA OTHER Assessment Encounter Date Assessment Date Assessment LastModified by Organization Details LastModified Time 02/19/2024 02/19/2024 I have reviewed and agree with the Assessment and Plan as documented by the Mill Control Operator. I provided real-time medical direction via phone [...] n hives Not available Not available 10/24/2023 30137 9 RxNorm AROLDO DUTTA MD [address] [facility],[address], [place], [address], [employer] 4 14:26:29 6672 heparin medicatio n Not [...] Address Organization Details Last Updated DateTime 4 59832.0 64 g 98.6 [degF] 172.72 cm 16 [...] Diagnosis/Indication Diagnosis SNOMED-CT Code Diagnosis ICD10 Code [id number] Jenna Denise MD [facility] - [facility] [address] [place] [address] 01/19/2024 14:18:14 01/20/2024 10:25:55 Abscess of abdominal wall 90554877 L02.211 [id number] Garfield Pereira MD Main - [facility] [address] [place] [id number] 01/22/2024 12:45:18 01/22/2024 22:38:19 Pruritic rash 27643941 L28.2 Cellulitis 331661580 L03 .90 [id number] Kathie Irizarry MD Main - [facility] [address] [place] [address] 02/10/2024 15:30:05 02/10/2024 18:57:02 Hallucinations 1919000 R44.3 [id number] Oneal Mueller MD Main - [facility] [address] [place] [phone] 02/19/2024 19:44:39 02/20/2024 16:09:06 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 978070422 N18.6 Health Concerns Section Related Observation LastModified by Organization Detai ls LastModified Time None Recorded Concern Status LastModified by Organization Details LastModified Time None Recorded Payers Encounter Date Sequence Insurance Name Policy Number Policy Ely Covered Member ID Ely Member ID Guarantor Name 02/19/2024 1 [facility] - DOS ON OR AFTER 2022 - DUAL ELIGIBLE - SENIOR LIVING OPTIONS AND ONE CARE (MEDICARE REPLACEMENT/ADV ANTAGE - HMO) Guadalupe Chery [id number] Guadalupe Chery Notes Date Note Type Note [...] as it will constipate her, but this communications writer told her she has the runs, [...] .................. .................. .................. .................. .................. .................. ............... Mill Control Operator Note From David Javier: [facility] visit for female pt. Pt presents complaining [...] with hypotension noted. Pt afebrile. Consulted with [facility] Dr. Mueller who advised pt go to ED. Pt stated that she didn't want to go as her DISHROOM ATTENDANT had just arrived. [facility] asked for recheck of BP which was completed and pt agreed to plan of calling 911 herself in a couple of hours time when her DISHROOM ATTENDANT is getting ready to leave. Reviewed red flags. Pt education provided. .................. .................. .................. .................. .................. .................. .................. ............... [facility] Consulted: Oneal Mueller .................. .................. .................. .................. .................. .................. .................. ............... Disposition: Fulfilled Oneal Mueller MD [address] [place] [address],[address], [place], [address], [employer] 02/20/2024 14:28:09 OBGyn Episode No OBEpisode recorded.
--- OUTSIDE RECORDS SUMMARY | 2024-03-14 01:19 | XMS_ITS | Continuity of Care Document ---
Author Organization [employer] Address [address] [place] [address] Care Team Providers Care Valet Manager Name Role Phone MAYLIN HDZ Primary Care Provider HIM REBECA OTHER Assessment No assessment recorded. [...] n hives Not available Not available 10/24/2023 88613 9 RxNorm AROLDO DUTTA MD [address] [place] [address],[address], [place], [address] [facility] 4 14:26:29 6672 heparin medicatio n Not [...] % 114 mm[Hg] 80 mm[Hg] Not Available [employer] 4 15:43:19 Social History None recorded. Functional Status None recorded. Mental Status None recorded. Family History Nothing Reported. Medical History No medical history recorded. Gynecological HistoryNo gynecological history recorded. Obstetrics History GPAL:G 0 P 0 0 0 0 Past Encounters Encounter ID Performer Location Encounter Start Date Encounter Closed Date Diagnosis/Indication Diagnosis SNOMED-CT Code Diagnosis ICD10 Code [id number] Jenna Denise MD [facility] [address] [place] [phone] 01/19/2024 14:18:14 01/20/2024 10:25:55 Abscess of abdominal wall 24212465 L02.211 [id number] Garfield Pereira MD Main - [facility] [address] [place] [phone] 0 01/22/2024 12:45:18 01/22/2024 22:38:19 Pruritic rash 36495408 L28.2 Cellulitis 484781904 L03 .90 [id number] Kathie Irizarry MD Main - [facility] [address] [place] [phone] 02/10/2024 15:30:05 02/10/2024 18:57:02 Hallucinations 7819314 R44.3 Health Concerns Section Related Observation LastModified by Organization Detai ls LastModified Time None Recorded Concern Status LastModified by Organization Details LastModified Time None Recorded Payers Encounter Date Sequence Insurance Name Policy Number Policy Ely Covered Member ID Ely Member ID Guarantor Name 02/10/2024 1 [facility] - DOS ON OR AFTER 2022 - DUAL ELIGIBLE - PENITENTIARY OPTIONS AND ONE CARE (MEDICARE REPLACEMENT/ADV ANTAGE - HMO) Guadalupe Chery [id number] Guadalupe Chery Notes Date Note Type Note Provider Name and Address Organization Details Recorded Time 02/10/2024 text/html HPI: Member's NANOSCIENCE TECHNICIAN called [facility] requesting home visit for member. [...] is refusing to go to ED. This ad copy writer advised, I will send request for [...] .................... .................... .................... .................... .................... .................... . Manager Floral Note From Chele Dunlap: Patient seated in chair in apartment. die try out worker with patient. Patient complains of lower [...] work of breathing. Abdomen soft, nontender extremities unremarkable.[facility] patient to [facility]. Patient agrees to ambulance transport at this time.911 system activated report to EMS on scene.SHFD to [place]. .................... .................... .................... .................... .................... .................... .................... . [facility] Consulted: Kathie Irizarry .................... .................... .................... .................... .................... .................... .................... . Disposition: Fulfilled Kathie Irizarry MD [address] [facility],[address], [place], [address], [place] [facility] 02/10/2024 16:32:23 OBGyn Episode No OBEpisode recorded.
--- OUTSIDE RECORDS SUMMARY | 2024-03-14 01:20 | XMS_ITS | Clinical Summary ---
Author Organization Unknown Care Team Providers Care Art Psychotherapist Or Therapist Name Role Phone ANDREINA GUZMÁN, MAYLIN Unavailable Unavailable PONCHO BUNN, ALISSA SHREWOOD Unavailable Unava ilable TAMIKO PT, TASHIA Unavailable Unavailable LUIPPOLD SKEIN INSPECTOR, CHERRY Unavailable Unavailable ELIDA AVIATION CONSULTANT, MIRTHA Unavailable Unavailable SCOTT AVIATION CONSULTANT, CHI Unavailable Unavailable PENDRISS SKEIN INSPECTOR, DAVIDE Unavailable Unavailable MBURU SKEIN INSPECTOR, ARTEMIO Unavailable Unavailable Payers Payer Name Policy Type Policy Number Effective Date Expira tion Date MEDICARE.NGS.PDGM [id number] Problems Condition Name Condition Details Condition Category Status Onset Date Resolution Date Last Treatment Date Treating Clinician Comments 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 [...] NEUROSTIMULA TOR Active 03-31 00:00: 00 OTHER [facility] (CURRENT) DRUG THERAPY Active 03-31 00:00: 00 SHIP'S ENGINEER (CURRENT) USE OF ANTICOAGULAN TS Active 03-31 [...] 5 mg tablet 2020-03 00:00: 00 Yes [id number] TREATS A FIB 5 mg 2 TIMES DAILY 5 mg 2 TIMES DAILY (route: oral) Med Classific ation: Hematolog ical Agents famotidine 20 mg tablet 2020-03 00:00: 00 Yes [id number] TREATS GERD 20 mg TWICE A DAY 20 mg TWICE A DAY (route: oral) Med Classific ation: Gastroint estinal Therapy Agents oxycodone 5 mg tablet 12-21 00:00: 00 02-10 00:00 :00 No [id number] Per instruc tions TWICE A DAY NEEDED Per instructio ns TWICE A DAY NEEDED (route: oral) Med Classific ation: Analgesic , Anti-infl ammatory or Antipyret ic allopurinol 100 mg tablet 12-03 00:00: 00 Yes [id number] TREATS GOUT 100 mg EVERY DAY 100 mg EVERY DAY (route: oral) Med Classific ation: Gout and Hyperuric emia Therapy oxycodone 5 mg tablet 2020-03 00:00: 00 Yes [id number] TREATS PAIN 5 mg TWICE A DAY NEEDED 5 mg TWICE A DAY NEEDED (route: oral) Med Classific ation: Analgesic , Anti-infl ammatory or Antipyret ic levothyroxi ne 100 mcg tablet 2020-03 0-17 00:00: 00 Yes [id number] TREATS HYPOTHYROID ISM 100 mcg EVERY DAY 100 mcg EVERY DAY (route: oral) Med Classific ation: Endocrine folic acid 1 mg tablet 2020-03 0-31 00:00: 00 Yes [id number] SUPPLEMENT 1 mg EVERY DAY 1 mg SHANEL RY DAY (route: oral) Med Classific ation: Electroly te Balance-N utritiona l Products tacrolimus 1 mg capsule, immediate-r elease 2020-03 017 00:00: 00 Yes [id number] TREATS ORGAN REJECTION 1 mg 2 TIMES DAILY 1 mg 2 TIMES DAILY (route: oral) Med Classific ation: Immunosup pressive Agents rosuvastati n 10 mg tablet 2020-03 00:00: 00 Yes [id number] TREATS HIGH CHOLESTEROL 10 mg BEDTIME 10 mg BEDTIME (route: oral) Med Classific ation: Cardiovas cular Therapy Agents cholecalcif george (vitamin D3) 50 mcg (2,000 unit) tablet 12-05 00:00: 00 Yes [id number] SUPPLEMENT 50 mcg EVERY DAY 50 mcg EVERY DAY (route: oral) Med Classific ation: Electroly te Balance-N utritiona l Products hydroxyzine HCl 25 mg tablet 2020-03 0 00:00: 00 Yes [id number] FOR ITCH 25 mg THREE TIMES A DAY NEEDED 25 mg THREE TIMES A DAY NEEDED (route: oral) Med Classific ation: Central Nervous System Agents calcium citrate 200 mg (950 mg) tablet 10-27 00:00: 00 Yes [id number] SUPPLEMENT 200 mg TWICE A DAY 200 mg TWICE A DAY (route: oral) Med Classific ation: Electroly te Balance-N utritiona l Products ropinirole 0.5 mg tablet 2020-03 018 00:00: 00 Yes [id number] TREATS RESTLESS LEGS 0.5 mg 1 TO 3 HOURS BEFORE BEDTIME 0.5 mg 1 TO 3 HOURS BEFORE BEDTIME (route: oral) Med Classific ation: Central Nervous System Agents clonazepam 0.5 mg tablet 2020-03 022 00:00: 00 Yes [id number] TREATS ANXIETY 0.5 mg EVERY DAY NEEDED 0.5 mg EVERY DAY NEEDED (route: oral) Med Classific ation: Central Nervous System Agents midodrine 5 mg tablet 2020-03 00:00: 00 Yes [id number] TREATS HYPOTENSION 5 mg 3 TIMES A WEEK 5 mg 3 TIMES A WEEK (route: oral) Med Classific ation: Cardiovas cular Therapy Agents venlafaxine 25 mg tablet 2020-03 00:00: 00 02-10 00:00 :00 No [id number] Per instruc tions EVERY DAY Per instructio ns EVERY DAY (route: oral) Med Classific ation: Central Nervous System Agents Aspirin Low Dose 81 mg tablet,neto yed release 2020-03 00:00: 00 Yes [id number] HEART MED 81 mg DAILY 81 mg DAILY (route: oral) Med Classific ation: Hematolog ical Agents Imodium A-D 2 mg capsule 2020-03 00:00: 00 Yes [id number] TREATS DIARRHEA 2 mg EVERY 4 HOURS 2 mg EVERY 4 HOURS (route: oral) Med Classific ation: Gastroint estinal Therapy Agents tacrolimus 1 mg capsule, immediate-r elease 2020-03 00:00: 00 Yes [id number] TREATS ORGAN REJECTION 1 mg 2 TIMES DAILY 1 mg 2 TIMES DAILY (route: oral) Med Classific ation: Immunosup pressive Agents venlafaxine 37.5 mg tablet 2020-03 00:00: 00 Yes [id number] ANTIDEPRESS ANT 37.5 mg DAILY 37.5 mg DAILY (route: oral) Med Classific ation: Central Nervous System Agents Zofran 4 mg tablet 2020-03 00:00: 00 Yes [id number] TREATS NAUSEA 4 mg 3 TIMES DAILY [...] EMERGENCY SERVICES CALL [facility] NURSE TO KEEP RAM CAR OPERATOR SYMPTOM REPORT FOR VISIBLE REFERENCE NOTIFY SKILLED [...] EMERGENCY SERVICES CALL [facility] NURSE TO KEEP RAM CAR OPERATOR SYMPTOM REPORT FOR VISIBLE REFERENCE NOTIFY SKILLED NURSE/PHYSICIAN FOR DECLINE IN STATS WHEN AND HOW TO CALL HOME HEALTH AGENCY FACILITATE PHYSICIAN FOLLOW UP APPOINTMENT IDENTIFY SOCIOECONOMIC CONCERNS AND MAKE APPROPRIATE REFERRAL NEEDED] Future Scheduled Test CARDIOVASC ULAR SYSTEM; SKILLED NURSE TO ASSESS AND TEACH RELATED TO ALTERED CARDIOVASCULAR STATUS R/T AN HI TO MINIMIZE COMPLICATIONS AND REDUCE HOSPITALIZATION. [code = CARDIOVASCULAR SYSTEM; SKILLED NURSE TO ASSESS AND TEACH RELATED TO ALTERED CARDIOVASCULAR STATUS R/T AN HI TO MINIMIZE COMPLICATIONS AND REDUCE HOSPITALIZATION.] Future [...] PATIENT RECEIVES DIALYSIS AT [facility] IN [place]. PT GOES THERE TUES THUR AND SAT 6AM TO 11AM [code = DIALYSIS CENTER; ALL NEEDS RELATED TO ESRD WILL BE MANAGED BY DIALYSIS CENTER. PATIENT RECEIVES DIALYSIS AT [facility] IN [place]. PT GOES THERE TUES THUR AND SAT 6AM TO 11AM] Future Scheduled Test PRN VISITS ; PATIENT REQUIRES 3 PRN DETENTION VISITS FOR COMPLICATIONS R/T CARDIOVASCULAR STATUS [code = PRN VISITS; PATIENT REQUIRES 3 PRN DETENTION VISITS FOR COMPLICATIONS R/T CARDIOVASCULAR STATUS] Future [...] PATIENT REPORTED WEIGHT AND NOTIFY CM / STITCHDOWNS TOE FORMER FOR MD NOTIFICATION FOR SIGNS AND SYMPTOMS [...] PATIENT REPORTED WEIGHT AND NOTIFY CM / STITCHDOWNS TOE FORMER FOR MD NOTIFICATION FOR SIGNS AND SYMPTOMS [...] End Date/Time Encounter Type Admission Type Attending [facility] Care Department Encounter ID Discharge Date Discharge Status Discharge Condition Discharge Reason Percent Goals Met 2021-02-10 00:00:00 2021-03-12 00:00:00 Outpatient NEW ADMISSION ALISSA BACNO [facility] [id number] 2021-03-12 00:00:00 DISCHARGE TO HOME OR SELF CARE INDEPENDEN T IN THE COMMUNITY HH OR PAL- GOALS MET 90.00
--- OUTSIDE RECORDS SUMMARY | 2024-03-14 01:20 | XMS_ITS | Continuity of Care Document ---
Author Organization [employer] [place] Address [address] [place] [address] Care Team Providers Care Shuttle Veneering Supervisor Name Role Phone MAYLIN HDZ Primary Care Provider [phone] HIM CCA OTHER Assessment Encounter Date Assessment Date Assessment LastModified by Organization Details LastModified Time 01/19/2024 01/19/2024 I provided real -time medical direction via phone for this encounter, and was available for additional phone based assistance as needed. I have reviewed and agree with the Assessment and Plan as documented by the Science Tutor. We discussed the diagnostic uncertainty of home [...] to call 911- verbalized understanding of instructions [email or web address] Not available 01/19/2024 14:40:17 Plan of Treatment Reminders Order Date Submit Date Provider Last Modified By Organization Details Last Modified Time Details Appointments None recorded. Lab None recorded. Referral None recorded. Procedures None recorded. Surgeries None recorded. Imaging None recorded. Medication Orders doxycycline hyclate 100 mg capsule 2023 024 [facility], [address] [place] [address], [place], [id number], 09:33:49 ceftriaxone 1 gram solution for injection [...] n hives Not available Not available 10/24/2023 [id number] RxNorm AROLDO DUTTA MD [address] [facility],[address], [place], [phone], [employer] [facility], [employer] 14:26:29 6672 heparin medicatio n Not available [...] cm 84 /min 99 % 99 % 10775.2 08 g 169 mm[Hg] 77 mm[Hg] Not [...] Diagnosis/Indication Diagnosis SNOMED-CT Code Diagnosis ICD10 Code [id number] Jenna Denise MD Main - [facility] [address] [place] [phone] 01/19/2024 14:18:14 01/20/2024 10:25:55 Abscess of abdominal wall 62481975 L02.211 Health Concerns Section Related Observation LastModified by Organization Detai ls LastModified Time None Recorded Concern Status LastModified by Organization Details LastModified Time None Recorded Payers Encounter Date Sequence Insurance Name Policy Number Policy Ely Covered Member ID Ely Member ID Guarantor Name 01/19/2024 1 [facility] - DOS ON OR AFTER 2022 - DUAL ELIGIBLE - NURSING HOME OPTIONS AND ONE CARE (MEDICARE REPLACEMENT/ADV ANTAGE - HMO) Guadalupe Chery [id number] Guadalupe Chery Notes Date Note Type Note [...] of disposition, unable to come into our [facility]. Agrees to [facility] referral. Confirmed address, phone [...] ................... ................... ................... ................... ................... ................... ............ Science Tutor Note From David Javier: [facility] visit for female pt. Pt presents [...] her umbilicus. Pt has seen surgeon and scaling machine operator for non healing wounds and tried topical medications without improvement or clear diagnosis. V/S taken as listed. Pt afebrile. Images taken for [facility] review. Lump on abdomen palpated and firm and roughly the size of a half dollar. Consulted with [facility] Dr. Denise who advised pt follow up with transplant surgeon. Dr. Denise ordered 1 g of IM ceftriaxone in addition to 100 mg of oral doxycycline. Reviewed red flags for ED. Pt given medications. Pt education provided. ................... ................... ................... ................... ................... ................... ................... ........ Disposition: Fulfilled Jenna Denise MD [address] [facility],[address], [place], [address], [employer] 01/19/2024 16:20:37 OBGyn Episode No OBEpisode recorded.
--- OUTSIDE RECORDS SUMMARY | 2024-03-14 01:20 | XMS_ITS | Continuity of Care Document ---
Author Organization [employer] [facility] [employer] Address [address] [place] [address] Care Team Providers Care Paper Conservator Name Role Phone MAYLIN HDZ Primary Care Provider HIM REBECA OTHER Assessment Encounter Date Assessment Date Assessment LastModified by Organization Details LastModified Time 01/22/2024 01/22/2024 As noted, we were called to see this patient regarding concerns of rash.Evaluation in the field was performed by my dean of education colleague, as noted above, I provided real-time [...] the emergency department. This was based on [email or web address] Not available 01/22/2024 13:21:38 Plan of Treatment Reminders Order Date Submit Date Provider Last Modified By Organization Details Last Modified Time Details Appointments None recorded. Lab None recorded. Referral None recorded. Procedures None recorded. Surgeries None recorded. Imaging None recorded. Medication Orders Benadryl 25 mg capsule 2023 [facility], [address] [place] [address], [id number], 4 13:31:29 diphenhydra mine 25 mg tablet 2023 024 [email or web address] [facility], [address] [place] [address], [id number], 4 17:58:06 cephalexin 500 mg capsule 2023 [facility], [address] [place] [address], [id number], 13:22:49 Patient TargetsNo targets recorded. Patient InstructionsNo instructions recorded. Reason for Referral None Reported. Medical Equipment None Reported. Allergies Allergen ID Allergen Name Allergen Category Reaction Reaction Severity Criticality Documentation Date Start Date Code Code System Note Provider Name and Address Organization Details Recorded Time 5648 Bactrim medicatio n hives Not available Not available 10/24/2023 [id number] RxNorm AROLDO DUTTA MD [address] [place] [address],[address] [facility], [place], [phone], [place] [employer] 14:26:29 6672 heparin medicatio n Not available [...] Diagnosis/Indication Diagnosis SNOMED-CT Code Diagnosis ICD10 Code [id number] Jenna Denise MD Main - [address] [phone] 01/19/2024 14:18:14 01/20/2024 10:25:55 Abscess of abdominal wall [id number] L02.211 [id number] Garfield Pereira MD Main - [address] [phone] 01/22/2024 12:45:18 01/22/2024 22:38:19 Pruritic rash 32702014 L28.2 Cellulitis [id number] L03 .90 Health Concerns Section Related Observation LastModified by Organization Detai ls LastModified Time None Recorded Concern Status LastModified by Organization Details LastModified Time None Recorded Payers Encounter Date Sequence Insurance Name Policy Number Policy Ely Covered Member ID Ely Member ID Guarantor Name 01/22/2024 1 [facility] - DOS ON OR AFTER 2022 - DUAL ELIGIBLE - HALF-WAY OPTIONS AND ONE CARE (MEDICARE REPLACEMENT/ADV ANTAGE - HMO) Guadalupe Chery [id number] Guadalupe Chery Notes Date Note Type Note [...] swelling in her mouth or fever. This screenplay writer advised member to d/c the medication. Offered [facility] visit for re-evaluation. Member agreed. .................. .................. .................. .................. .................. .................. .................. ............... CRC Nurse Triage Notes (Susan Hess): Chief Complaints: Rash PMH: Heart Disease, Organ Transplant, Hypertension, Cancer, COPD/Asthma, CHF Allergies: Doxycycline, Trimethoprim-Sulfa methoxazole Other Allergies: heparin, doxycycline Comments: HPI reviewed- NE .................. .................. .................. .................. .................. .................. .................. ............... Contracts Representative Note From Shayna Pereira: Pt is a [...] got a shot from one of the dean of education on her right deltoid, followed by 100 [...] Patient is adviced to stop taking doxycycline, moss picker the new meds prescribed by today? s doc, and to follow up with her PCP or surgeon as per doctors recommendations. Patient is left under the care of her aid. SC8 clear without any incidents .................. .................. .................. .................. .................. .................. .................. ............... Disposition: Fulfilled Garfield Pereira MD [address] [place] [address],[address], [place], [address], [employer] 01/22/2024 18:45:00 OBGyn Episode No OBEpisode recorded.
--- OUTSIDE RECORDS SUMMARY | 2024-03-14 01:20 | XMS_ITS | Clinical Summary ---
Author Organization Unknown Care Team Providers Care Production Reproduction Manager Name Role Phone ANDREINA GUZMÁN, MAYLIN Unavailable Unavailable PONCHO BUNN, ALISSA SHERWOOD Unavailable Unava ilable TAMIKO PT, TASHIA Unavailable Unavailable LUIPPOLD SUPPLY REQUIREMENTS OFFICER, CHERRY Unavailable Unavailable ELIDA EDITORIAL WRITER, MIRTHA Unavailable Unavailable SCOTT EDITORIAL WRITER, CHI Unavailable Unavailable PENDRISS SUPPLY REQUIREMENTS OFFICER, DAVIDE Unavailable Unavailable MBURU SUPPLY REQUIREMENTS OFFICER, ARTEMIO Unavailable Unavailable Payers Payer Name Policy Type Policy Number Effective Date Expira tion Date MEDICARE.NGS.PDGM [id number] Problems Condition Name Condition Details Condition Category Status Onset Date Resolution Date Last Treatment Date Treating Clinician Comments 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 [...] NEUROSTIMULA TOR Active 03-31 00:00: 00 OTHER [facility] (CURRENT) DRUG THERAPY Active 03-31 00:00: 00 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 (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) USE OF ANTICOAGULAN TS Active 03-31 [...] 5 mg tablet 2020-03 00:00: 00 Yes [id number] TREATS A FIB 5 mg 2 TIMES DAILY 5 mg 2 TIMES DAILY (route: oral) Med Classific ation: Hematolog ical Agents famotidine 20 mg tablet 2020-03 00:00: 00 Yes [id number] TREATS GERD 20 mg TWICE A DAY 20 mg TWICE A DAY (route: oral) Med Classific ation: Gastroint estinal Therapy Agents oxycodone 5 mg tablet 12-21 00:00: 00 02-10 00:00 :00 No [id number] Per instruc tions TWICE A DAY NEEDED Per instructio ns TWICE A DAY NEEDED (route: oral) Med Classific ation: Analgesic , Anti-infl ammatory or Antipyret ic allopurinol 100 mg tablet 12-03 00:00: 00 Yes [id number] TREATS GOUT 100 mg EVERY DAY 100 mg EVERY DAY (route: oral) Med Classific ation: Gout and Hyperuric emia Therapy oxycodone 5 mg tablet 2020-03 00:00: 00 Yes [id number] TREATS PAIN 5 mg TWICE A DAY NEEDED 5 mg TWICE A DAY NEEDED (route: oral) Med Classific ation: Analgesic , Anti-infl ammatory or Antipyret ic levothyroxi ne 100 mcg tablet 2020-03 0-17 00:00: 00 Yes [id number] TREATS HYPOTHYROID ISM 100 mcg EVERY DAY 100 mcg EVERY DAY (route: oral) Med Classific ation: Endocrine folic acid 1 mg tablet 2020-03 0-31 00:00: 00 Yes [id number] SUPPLEMENT 1 mg EVERY DAY 1 mg SHANEL RY DAY (route: oral) Med Classific ation: Electroly te Balance-N utritiona l Products tacrolimus 1 mg capsule, immediate-r elease 2020-03 017 00:00: 00 Yes [id number] TREATS ORGAN REJECTION 1 mg 2 TIMES DAILY 1 mg 2 TIMES DAILY (route: oral) Med Classific ation: Immunosup pressive Agents rosuvastati n 10 mg tablet 2020-03 00:00: 00 Yes [id number] TREATS HIGH CHOLESTEROL 10 mg BEDTIME 10 mg BEDTIME (route: oral) Med Classific ation: Cardiovas cular Therapy Agents cholecalcif george (vitamin D3) 50 mcg (2,000 unit) tablet 12-05 00:00: 00 Yes [id number] SUPPLEMENT 50 mcg EVERY DAY 50 mcg EVERY DAY (route: oral) Med Classific ation: Electroly te Balance-N utritiona l Products hydroxyzine HCl 25 mg tablet 2020-03 0 00:00: 00 Yes [id number] FOR ITCH 25 mg THREE TIMES A DAY NEEDED 25 mg THREE TIMES A DAY NEEDED (route: oral) Med Classific ation: Central Nervous System Agents calcium citrate 200 mg (950 mg) tablet 10-27 00:00: 00 Yes [id number] SUPPLEMENT 200 mg TWICE A DAY 200 mg TWICE A DAY (route: oral) Med Classific ation: Electroly te Balance-N utritiona l Products ropinirole 0.5 mg tablet 2020-03 018 00:00: 00 Yes [id number] TREATS RESTLESS LEGS 0.5 mg 1 TO 3 HOURS BEFORE BEDTIME 0.5 mg 1 TO 3 HOURS BEFORE BEDTIME (route: oral) Med Classific ation: Central Nervous System Agents clonazepam 0.5 mg tablet 2020-03 022 00:00: 00 Yes [id number] TREATS ANXIETY 0.5 mg EVERY DAY NEEDED 0.5 mg EVERY DAY NEEDED (route: oral) Med Classific ation: Central Nervous System Agents midodrine 5 mg tablet 2020-03 00:00: 00 Yes [id number] TREATS HYPOTENSION 5 mg 3 TIMES A WEEK 5 mg 3 TIMES A WEEK (route: oral) Med Classific ation: Cardiovas cular Therapy Agents venlafaxine 25 mg tablet 2020-03 00:00: 00 02-10 00:00 :00 No [id number] Per instruc tions EVERY DAY Per instructio ns EVERY DAY (route: oral) Med Classific ation: Central Nervous System Agents Aspirin Low Dose 81 mg tablet,neto yed release 2020-03 00:00: 00 Yes [id number] HEART MED 81 mg DAILY 81 mg DAILY (route: oral) Med Classific ation: Hematolog ical Agents Imodium A-D 2 mg capsule 2020-03 00:00: 00 Yes [id number] TREATS DIARRHEA 2 mg EVERY 4 HOURS 2 mg EVERY 4 HOURS (route: oral) Med Classific ation: Gastroint estinal Therapy Agents tacrolimus 1 mg capsule, immediate-r elease 2020-03 00:00: 00 Yes [id number] TREATS ORGAN REJECTION 1 mg 2 TIMES DAILY 1 mg 2 TIMES DAILY (route: oral) Med Classific ation: Immunosup pressive Agents venlafaxine 37.5 mg tablet 2020-03 00:00: 00 Yes [id number] ANTIDEPRESS ANT 37.5 mg DAILY 37.5 mg DAILY (route: oral) Med Classific ation: Central Nervous System Agents Zofran 4 mg tablet 2020-03 00:00: 00 Yes [id number] TREATS NAUSEA 4 mg 3 TIMES DAILY [...] EMERGENCY SERVICES CALL [facility] NURSE TO KEEP BEEKEEPER FARMER SYMPTOM REPORT FOR VISIBLE REFERENCE NOTIFY SKILLED [...] EMERGENCY SERVICES CALL [facility] NURSE TO KEEP BEEKEEPER FARMER SYMPTOM REPORT FOR VISIBLE REFERENCE NOTIFY SKILLED NURSE/PHYSICIAN FOR DECLINE IN STATS WHEN AND HOW TO CALL HOME HEALTH AGENCY FACILITATE PHYSICIAN FOLLOW UP APPOINTMENT IDENTIFY SOCIOECONOMIC CONCERNS AND MAKE APPROPRIATE REFERRAL NEEDED] Future Scheduled Test CARDIOVASC ULAR SYSTEM; SKILLED NURSE TO ASSESS AND TEACH RELATED TO ALTERED CARDIOVASCULAR STATUS R/T AN GA TO MINIMIZE COMPLICATIONS AND REDUCE HOSPITALIZATION. [code = CARDIOVASCULAR SYSTEM; SKILLED NURSE TO ASSESS AND TEACH RELATED TO ALTERED CARDIOVASCULAR STATUS R/T AN GA TO MINIMIZE COMPLICATIONS AND REDUCE HOSPITALIZATION.] Future [...] PATIENT RECEIVES DIALYSIS AT [facility] IN [place]. PT GOES THERE TUES THUR AND SAT 6AM TO 11AM [code = DIALYSIS CENTER; ALL NEEDS RELATED TO ESRD WILL BE MANAGED BY DIALYSIS CENTER. PATIENT RECEIVES DIALYSIS AT [facility] IN [place]. PT GOES THERE TUES THUR AND SAT 6AM TO 11AM] Future Scheduled Test PRN VISITS ; PATIENT REQUIRES 3 PRN PENITENTIARY VISITS FOR COMPLICATIONS R/T CARDIOVASCULAR STATUS [code = PRN VISITS; PATIENT REQUIRES 3 PRN PENITENTIARY VISITS FOR COMPLICATIONS R/T CARDIOVASCULAR STATUS] Future [...] PATIENT REPORTED WEIGHT AND NOTIFY CM / OIL WELL SERVICES SUPERINTENDENT FOR MD NOTIFICATION FOR SIGNS AND SYMPTOMS [...] PATIENT REPORTED WEIGHT AND NOTIFY CM / OIL WELL SERVICES SUPERINTENDENT FOR MD NOTIFICATION FOR SIGNS AND SYMPTOMS [...] End Date/Time Encounter Type Admission Type Attending [facility] Care Department Encounter ID Discharge Date Discharge Status Discharge Condition Discharge Reason Percent Goals Met 2021-02-10 00:00:00 2021-03-12 00:00:00 Outpatient NEW ADMISSION ALISSA BACON [facility] [id number] 2021-03-12 00:00:00 DISCHARGE TO HOME OR SELF CARE INDEPENDEN T IN THE COMMUNITY HH OR PAL- GOALS MET 90.00
--- OUTSIDE RECORDS SUMMARY | 2024-03-14 01:20 | XMS_ITS ---
Author Name Hugh, Clinic Address [address] [place] [id number] Phone [phone] Organization [facility], NA DOCUMENT DISCLAIMER Multiple document versions may exist, please be sure you review the latest version. The information in the [facility] Continuity of Care Document [...] SOCIAL HISTORY Tobacco Use Status Tobacco Type Former smoker Cigarettes Caregiver Characteristics No Information Available Characteristics of [...] 1 tablet ORAL June 12, 2023 Active metronidazole 500 mg Take by mouth once a day 1 tablet ORAL March 13, 2024 Active metronidazole 500 mg Take by mouth twice a day 1 tablet ORAL March 13, 2024 Active midodrine 5 mg Take by mouth [...] 1 tablet ORAL February 19, 2024 Discontinued estradiol 0.01% (0.1 mg/gram) Insert into vagina 2 gram VAGINAL February 19, 2024 Discontinued VITAL SIGNS Post-Treatment Vital Signs Vital Sign Value Date / Time Blood Pressure-sitting 110/58 mmHg March 13, 2024 05:36 AM Blood Pressure-standing 99/58 mmHg March 13, 2024 05:36 AM Heart Rate 62 beats per minute March 13, 2024 05:36 AM Respiratory Rate 16 breaths per minute March 13, 2024 05:36 AM Temperature 97.3 deg. F March 13 05:36 AM Weight Vital Sign Value Date / Time Estimated Dry Weight 66.5 kg January 11:59 PM Pre-Dialysis 66.20 kg March 13 05:36 AM Post-Dialysis 66.30 kg March 13 05:36 AM Other Other Value Date / Time [...] mcg/dL - October 302023 Hemoglobin x 3 31.2 % 36.0 - 48.0 % Low Novemb er 2023 Ferritin 370 ng/mL 10 - 291 ng/mL High December 18, 2023 TIBC (Calc) 242 mcg/dL 185 - 515 mcg/dL - Septemb er 2023 UIBC/TIBC 174 mcg/dL 155 - [...] 38.7 % 36.0 - 48.0 % - Novem r 2023 Ferritin 637 ng/mL 10 - 291 ng/mL High January [id number] Hemoglobin x 3 33 % 36.0 - 48.0 % Low Novembe r 2023 TIBC (Calc) 156 mcg/dL 185 - 515 mcg/dL Low r 2023 Transferrin Sat. (Calc) 22 % 20 [...] 34.8 % 36.0 - 48.0 % Low Decee r 2023 Metabolic/Renal Result Type Result Value [...] pg/mL 16 - 80 pg/mL High Aug e 2023 PTH-Intact, Plasma 29 pg/mL 16 - 80 pg/mL - Sep PTH-Intact, Plasma 25 pg/mL 16 - 80 pg/mL - Oct ust 2023 PTH-Intact, Plasma 167 pg/mL 16 - 80 pg/mL High Sep tember 2023 Calcium, Total 8.9 mg/dL 8.4 - 10.2 mg/dL - Nov emb2023 Ca x P Product - December 18, 2023 Phosphorus 2.3 mg/dL [...] 2.9 g/dL 3.5 - 5.2 g/dL Low Novem r 2023 eNPCR 0.77 No Reference Ran ge [...] 2.50 Ca, 1. 0 Mg, 100 Dextrose ([id number]) Sodium (mEq/L) 138 mEq/L Bicarb Machine Setting (mEq/L) 33 mEq/L Dialysis Access Hemodialysis-AV Fist taylor-Unknown, Left Forearm, Radial Artery to Basilic Vein Arterial Needle Size 15g1 Venous Needle Size 15g1 IMMUNIZATIONS Vaccine Date Dose Route Status HEPLISAV-B, Series 4 of September 18, 2023 20.0 mcg Intramu scular [...] 07, 2020 20.0 mcg Intramuscular Complete d [id number]-M-[id number], series 2 of August 10, 2020 40.0 mcg Int ramuscular Completed [id number]-[id number], series 1 of July 15, 2020 40.0 mcg I ntramuscular Completed Moderna COVID-19 Vaccine, Do se 2 of June 01, 2020 0.5 mL Intramuscular Completed Moderna COVID-19 Vaccine, Do se 1 of May 04, 2020 0.5 mL Intramuscular Completed PNEUMOVAX October 28, 2019 0.5 mL Intramuscular Comple camacho [id number]-V-[id number], series 4 of October 09, 2019 40.0 mcg In tramuscular Completed HOVHTZA-M-OODXU, series 3 of June 12, 2019 40.0 mcg I ntramuscular Completed HJODZMD-U-GUDBY, series 2 of May 13, 2019 40.0 mcg Intramuscular Completed [id number]-K-DVAJV, series 1 of April 10, 2019 40.0 mcg Intramuscular Completed TRANSPLANT WAITLIST STATUS Transplant List Type Transplant State/Center Tra nsplant List Status Kidney transplant list [facility] Active ADVANCE DIRECTIVES Directive Description Ordered By Effective Date Resuscitation status Full Code Breezy Mehtan Mar 22, 2024 DIALYSIS TREATMENTS Conventional Hemodialysis Date Pre-Treatment Vitals Post-Treatment Martha ls Duration (hr) BFR (mL/min) Dialysate Dialyzer Dialysis Access Meds Admin Decem 2023 Weight 67.10 kg Weight 66.30 kg 03:23:00 450 2.0 K, 2.50 Ca, 1.0 Mg, 100 Dextrose ([id number]) 160nre Optifl ux Blood Pressure-sitting 139/94 mmHg Blood Pressure-sit ting 114/64 mmHg Heart Rate 66 beats per minute Heart Rate 69 beats per minute Respiratory Rate 18 breaths per minute Respiratory Rate 18 breaths per minute Temperature 97.8 deg. F Temperature 97.8 deg. F March 09, 2024 Weight 68.10 kg Weight 66.60 kg 03:18:00 400 2.0 K, 2.50 Ca, 1.0 Mg, 100 Dextrose ([id number]) 160nre Optiflux Hemodialysis-AV Fistula-Unknown, Left Forearm, Radial Artery to Basilic Vein - Blood Pressure-sitting 108/50 mmHg Blood Pressure-sit ting 110/54 mmHg Heart Rate 61 beats per minute Heart Rate 59 beats per minute Respiratory Rate 18 breaths per minute Respiratory Rate 18 breaths per minute Temperature 97.8 deg. F Temperature 97.8 deg. F March 13, 2024 Weight 66.20 kg Weight 66.30 kg 03:17:00 450 2.0 K, 2.50 Ca, 1.0 Mg, 100 Dextrose ([id number]) 160nre Optiflux Hemodialysis-AV Fistula-Unknown, Left Forearm, Radial Artery to Basilic Vein - Blood Pressure-sitting 133/73 mmHg Blood Pressure-sit ting 110/58 mmHg Heart Rate 65 beats per minute Blood Pressure-standi ng 99/58 mmHg Respiratory Rate 16 breaths per minute Heart Rate 62 beats per minute Temperature 96.3 deg. F Respiratory Rate 16 breaths per minute - - Temperature 97.3 deg. F
[2024-03-14] MEDS: levoFLOXacin/D5W 500 MG/100 ML PIGGYBACK 100 MG IV (01:40)
--- NOTE | 2024-03-14 02:01 | P.HPHOSP_ITS ---
History of Present Illness Date of Service: 03/14/24 Attending physician on admission: Dolores Cowan Chief Complaint: Abdominal pain Guadalupe Kay is a 73 years old woman with past medical history significant for ESRD on HD, cirrhosis status post liver transplant, paroxysmal AFib, COPD -no home O2, GERD, CAD and hypothyroidism presents to the emergency department complaining of severe LLQ pain that started yesterday around 1:30 PM. She was discharged from the hospital yesterday with diagnosis of diverticulitis. At the time she discharge she was free of abdominal pain. She has not eating to date due to poor appetite. She also reported nausea,and diarrhea x2. Denies fever or chills. She mentioned that she is not interested in having colonoscopy as she recently had once. Denied chest pain, palpitations, dizziness or shortness on breath. In the ED, she was found to have normal vital signs. Blood workup showed no leukocytosis or lactic acidosis. Hemoglobin is 11.3 which is her baseline. There are no electrolyte imbalances. BUN 17 and creatinine is 3.33, much better than prior. LFTs and lipase are normal. Abdomen pelvis CT scan showed finding consistent with moderate sigmoid diverticulosis and suspicious for uncomplicated diverticulitis, findings could be alternately represents sigmoid neoplasm with mild adjacent inflammatory changes. ED tx: NS 1 L bolus, morphine 4 mg IV, Zofran 4 mg IV, Flagyl 500 mg IV, Levaquin 500 mg IV Review of Systems 2 Review of Systems: All 12 systems were reviewed and normal except as noted in HPI. [facility] Medical History ESRD (end stage renal disease) on dialysis Congestive heart failure Patient on waiting list for kidney transplant Gout History of transcatheter aortic valve replacement (TAVR) History of blood transfusion GERD (gastroesophageal reflux disease) Anxiety and depression AV fistula Hemodialysis patient COVID-19 vaccine series completed Murmur Hyperkalemia Left inguinal hernia DJD (degenerative joint disease) of thoracic spine Neuropathy End-stage renal disease (ESRD) COPD (chronic obstructive pulmonary disease) Coronary artery disease Bronchitis Asthma Arthritis Anemia Cirrhosis Surgical History Hx of colonoscopy History of liver transplant History of surgery on arm Social History Household Members: None Housing: Apartment Are you a primary rn acute care to a significant other at home: No Do you presently have visiting nurse or other home services: No Unable to assess alcohol history related to: Unable to respond Alcohol intake: never Comment: pt refused bed alarm Patient Tobacco Use Status: Former Tobacco user Tobacco use type: Cigarette Cigarette Packs Per Day: 2 Cigarettes Per Day: 40.0 Years Smoked: 25 Smoked in Last 30 Days: No e-Cigarette/Vaping Use: Never Used Second Hand Smoke Exposure: No Use of substances other than those prescribed or required for medical reasons: No Advance Directives: Yes Advance Directives on File: Yes Advance Directives Date on File: 03/08/20 service: No Current occupational status: retired Meds Allergies Allergy/AdvReac Type Severity Reaction Status Date / Time Sulfa (Sulfonamide Allergy Intermediate HIVES Verified 03/13/24 23:30 Antibiotics) Heparin Analogues Allergy Unknown UNKNOWN Verified 03/13/24 23:30 [Heparin Agents] verapamil Allergy Unknown unknown Verified 03/13/24 23:30 Home Medications ?Medication ?Instructions ?Recorded ?Confirmed ?Last Taken ?Type aspirin 81 mg tablet,delayed 81 mg PO DAILY@1200 01/26/20 03/11/24 03/10/24 History release allopurinol 100 mg tablet 100 mg PO DAILY@1200 03/08/20 03/11/24 03/10/24 History cholecalciferol (vitamin D3) 50 1 tab PO DAILY@1200 08/14/20 03/11/24 03/10/24 History mcg (2,000 unit) tablet hydroxyzine HCl 25 mg tablet 1 tab PO TID PRN Itching 08/14/20 03/11/24 04/04/23 History ropinirole 0.5 mg tablet 1 tab PO BEDTIME@2200 08/14/20 03/11/24 03/10/24 History venlafaxine 25 mg tablet 1 tab PO DAILY@1200 08/14/20 03/11/24 03/10/24 History famotidine 20 mg tablet 1 tab PO BID@1200,2200 01/14/22 03/11/24 03/10/24 History rosuvastatin 5 mg tablet 1 tab PO BEDTIME 01/14/22 03/11/24 03/10/24 History levothyroxine 88 mcg tablet 88 mcg PO DAILY@0600 01/20/23 03/11/24 03/10/24 History albuterol sulfate 90 mcg/actuation 1 puff inhalation Q6H PRN 06/09/23 03/11/24 Unknown History aerosol inhaler (Ventolin HFA) Shortness Of Breath Or Wheezing tacrolimus 0.5 mg capsule, 0.5 mg PO BID@1200,2200 07/15/23 03/11/24 03/10/24 History immediate-release folic acid 1 mg tablet 1 mg PO DAILY@1200 02/04/24 03/11/24 03/10/24 History metoprolol tartrate 25 mg tablet 25 mg PO BID@1200,2200 02/04/24 03/11/24 03/10/24 History albuterol sulfate 2.5 mg/3 mL 2.5 mg inhalation Q6H PRN 03/11/24 03/11/24 Unknown History (0.083 %) solution for nebulization Shortness Of Breath Or Wheezing calcium citrate 400 mg PO BID@1200,2200 03/11/24 03/11/24 03/10/24 History Physical Exam 2 Vital Signs and Narrative: Vital Signs: Last Vital Signs Temp 97.7 F 03/14/24 01:24 Pulse 61 03/14/24 01:24 Resp 16 03/14/24 01:24 BP 148/56 H 03/14/24 01:24 Pulse Ox 100 03/14/24 01:24 O2 Del Method Room Air 03/14/24 01:24 BMI result Body Mass Index 23.2 Constitutional - Awake and Alert, No apparent distress. Pleasant. Cooperative. HEENT - PER, EOMI. Normal sclerae. Dry oral mucosa. Heart - S1S2, RRR, No murmurs. Lungs - Normal lung expansion, Normal respiratory effort, No respiratory distress, CTA bilaterally Abdomen - Increased bowel sounds. Nondistended. Left lower quadrant tenderness with guarding. No rebound. Extremities - no calf tenderness bilaterally, no swelling Musculoskeletal - Normal inspection, normal ROM Skin - Warm/Dry Neurological - Alert & oriented x3. No acute focal weakness. Normal speech. Psychological - Appropriate affect Results Labs 03/13/24 23:48 03/13/24 23:48 Labs: Laboratory Results - last 24 hr 03/13/24 03/14/24 23:48 00:16 MCV 93.7 MCH 29.8 MCHC 31.8 RDW 15.6 Plt Count 268 MPV 10.8 Immature Gran % (Auto) 0.3 Neut % (Auto) 69.9 Lymph % (Auto) 15.6 L [place] % (Auto) 10.2 Eos % (Auto) 3.6 Baso % (Auto) 0.4 Lymph # (Auto) 1.1 L [place] # (Auto) 0.7 Eos # (Auto) 0.3 Baso # (Auto) 0.0 Abs Immat Gran (auto) 0.02 Absolute Neuts (auto) 5.0 Absolute Nucleated RBC 0.000 Nucleated RBC % (auto) 0.0 Anion Gap 10 L Estim Creat Clear Calc 15.4 Estimated GFR 14 Random Glucose 105 Lactic Acid 1.3 Calcium 8.0 L D Total Bilirubin 0.3 Direct Bilirubin 0.2 AST 23 ALT 10 Alkaline Phosphatase 79 Total Protein 6.6 Albumin 2.9 L Lipase 42 Imaging Radiologist's Impressions: Impressions Abdomen/Pelvis CT 03/13/24 23:42 IMPRESSION: *Moderate concentric mural thickening of the middle segment of the sigmoid colon and mild reticulation of the adjacent pericolonic fat in the setting of moderate sigmoid diverticulosis. Findings are similar to findings present 03/11/2024 are suspicious for uncomplicated diverticulitis. Findings could alternatively represent sigmoid neoplasm with mild adjacent inflammatory changes., As clinically indicated, consider further evaluation with sigmoidoscopy and direct visualization. No free intraperitoneal fluid or gas collections. No evidence of intestinal perforation or obstruction. *Status post liver transplant. Mild chronic retroperitoneal lymphadenopathy is present with similar findings reported on comparison studies dating back to 12/29/2019. The prominent lymph nodes may be secondary/chronic related to prior liver transplantation. *Status post cholecystectomy. *Diffuse bilateral renal atrophy. 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 Fleischner guidelines were followed. Electronically signed by: Markos Bazan MD 03/14/2024 12:42 AM EST Assessment and Plan (1) Diverticulitis: Status: Acute (2) ESRD (end stage renal disease) on dialysis: Status: Acute Plan Guadalupe Kay is a 73 y/o woman admitted with: * Recurrent diverticulitis, ?Neoplasm. Admit to hospitalist service. Advance diet as tolerated. Continue empiric IV antibiotic therapy. Patient is to scheduled follow-up colonoscopy as an outpatient with GI service, however she mentioned that she is not interested in having this study again. * ESRD on HD (TTS). Nephrology consult for inpatient hemodialysis. * Paroxysmal atrial fibrillation. Continue beta paemla and aspirin. Not taking anticoagulation. * CAD. Continue beta-pamela, aspirin and statin. * GERD. Continue Pepcid. * COPD. Continue inhalers. * Cirrhosis s/p liver transplant. Continue tacrolimus. * Hypothyroidism. Continue Synthroid. DVT prophylaxis: SCDs Code status: Full Patient will need hospitalization for at least 2 midnights for recurrent diverticulitis/abdominal pain treatment with IV antibiotic therapy and IV pain meds Quality Stroke Does the patient have a stroke diagnosis?: No VTE Prior VTE?: No VTE Risk Level:: Medical - moderate - high VTE Device Contraindication: N/A - Device Ordered VTE Drug Contraindication: Treatment Not Indicated
[2024-03-14] MEDS: HYDROmorphone HCl 0.5 MG/0.5 ML SYRINGE IVPUSH (04:03)
[2024-03-14 05:51] LABS: MANUAL DIFF FLAG NO
--- NOTE | 2024-03-14 05:59 | PC.NURSE ---
pt unable to provide urine sample, pt is a dialysis pt (L arm) and barely makes urine . 20g IV RAC, pain comes and goes, pt resting comfortably at this time, call hernandez w/in reach. walked with care to bathroom independently.
[2024-03-14 06:07] LABS: Anion Gap 12 (12-20); Blood Urea Nitrogen 18 mg/dL (9-16); Calcium 8.2 mg/dL (8.4-10.2); Carbon Dioxide 27 mmol/L (22-29); Chloride 104 mmol/L (96-108); Creatinine Clr Calc Pharmacy 14.5; Estimated Glomerular Filt Rate 13; Glucose Random 94 mg/dL (60-115); Potassium 3.6 mmol/L (3.3-5.1); Sodium 139 mmol/L (135-145)
[2024-03-14 06:25] LABS: Basophils Absolute Auto 0.1 X10*3/uL (0.0-0.2); Basophils Percent Auto 0.6 % (0-2); Eosinophils Absolute Auto 0.3 X10*3/uL (0.0-0.4); Eosinophils Percent Auto 4.1 % (0-4); Hematocrit 35.6 % (37.0-47.0); Hemoglobin 11.2 g/dl (12.0-16.0); Imm Gran Abs Auto 0.04 X10*3/uL (0.00-0.03); Imm Gran Pct Auto 0.5 % (0.0-0.4); Lymphocytes Absolute Auto 1.9 X10*3/uL (1.2-4.9); Lymphocytes Percent Auto 23.1 % (20-40); Mean Corpuscular HGB Conc 31.5 g/dl (31.0-35.0); Mean Corpuscular Hemoglobin 29.8 pg (27.0-33.0); Mean Corpuscular Volume 94.7 fL (80.0-98.0); Mean Platelet Volume 11.4 fL (9.4-12.3); Monocytes Absolute Auto 0.9 X10*3/uL (0.1-1.2); Monocytes Percent Auto 10.5 % (2-11); Neutrophils Absolute Auto 4.9 x10*3/uL (2.0-8.3); Neutrophils Percent Auto 61.2 % (45-73); Platelet Count 305 X10*3/uL (160-400); Red Blood Count 3.76 X10*6/uL (4.20-5.50); Red Cell Distribution Width 15.5 % (11.0-16.0); White Blood Count 8.1 X10*3/uL (4.8-10.8)
--- NOTE | 2024-03-14 06:43 | PC.NURSE ---
admission note: pt BIBA from home for LLQ pain, was d/c yesterday from [facility] for diverticulitis. pt was pain free on d/c, now 10/10 pain. 20g IV RAC, no labs/BP in L arm (dialysis). pt A/Ox4, ambulatory with cane/walker. calm and cooperative with care. clear liquid diet. ADMIT: diverticulitis, ESRD
[2024-03-14] MEDS: HYDROmorphone HCl 0.5 MG/0.5 ML SYRINGE 1.1 MG IVPUSH (07:47)
[2024-03-14] MEDS: 0.9 % Sodium Chloride Flush 3 ML SYRINGE IVFLUSH ×3 (07:47→22:06)
--- NOTE | 2024-03-14 08:10 | PHA.MEDREC ---
Addendum entered by Dustin Lowery RPh 03/14/24 08:51: MED REC CHECKED BY [facility] Original Note: Pharmacy Consult ? Medication Reconciliation Pharmacy has completed the medication reconciliation. Pt discharged on 03/12/24. Utilized discharge packet to confirm meds.
--- NOTE | 2024-03-14 08:59 | MHC.CM.PN ---
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
--- NOTE | 2024-03-14 10:22 | PC.NURSE ---
Patient requested Syntroid since she did not take it this am
[2024-03-14] MEDS: Tacrolimus 0.5 MG CAPSULE PO ×2 (10:34→22:01)
[2024-03-14] MEDS: Levothyroxine Sodium 88 MCG TABLET PO (10:34)
[2024-03-14] MEDS: Folic Acid 1 MG TABLET PO (10:39)
[2024-03-14] MEDS: Venlafaxine HCL 25 MG TABLET PO (10:40)
[2024-03-14] MEDS: Aspirin Enteric Coated 81 MG TABLET.DR PO (10:40)
[2024-03-14] MEDS: allopurinoL 100 MG TABLET PO (10:40)
[2024-03-14] MEDS: Cholecalciferol (Vitamin D3) 25 MCG TABLET 50 MCG PO (10:40)
[2024-03-14] MEDS: Famotidine 20 MG TABLET PO ×2 (10:40→22:01)
[2024-03-14] MEDS: HYDROmorphone HCl 0.5 MG/0.5 ML SYRINGE 1 MG IVPUSH ×3 (12:28→20:19)
[2024-03-14] MEDS: Atorvastatin Calcium 20 MG TABLET PO (20:07)
[2024-03-14] MEDS: rOPINIRole HCL 0.5 MG TABLET PO (22:01)
[2024-03-15] MEDS: metroNIDAZOLE/NS 500 MG/100 ML PIGGYBACK 100 MG IV (00:36)
[2024-03-15] MEDS: hydrOXYzine HCL 25 MG TABLET PO (00:36)
[2024-03-15] MEDS: HYDROmorphone HCl 0.5 MG/0.5 ML SYRINGE 1 MG IVPUSH ×5 (00:38→20:17)
[2024-03-15 03:22] VITALS: BP 162/89; PULSE 65; RESP 16; TEMP 36.2; O2SAT 99
[2024-03-15] MEDS: Levothyroxine Sodium 88 MCG TABLET PO (05:38)
[2024-03-15 07:29] VITALS: BP 143/82; PULSE 62; RESP 16; TEMP 36.2; O2SAT 99
[2024-03-15] MEDS: metroNIDAZOLE 500 MG TABLET PO ×2 (08:27→16:33)
[2024-03-15] MEDS: cefTRIAXone sodium 1 GM VIAL IVPUSH (08:27)
[2024-03-15] MEDS: 0.9 % Sodium Chloride Flush 3 ML SYRINGE IVFLUSH ×3 (08:27→20:18)
[2024-03-15] MEDS: ondansetron HCL 4 MG/2 ML VIAL IVPUSH (08:36)
[2024-03-15] MEDS: Cholecalciferol (Vitamin D3) 25 MCG TABLET 50 MCG PO (11:22)
[2024-03-15] MEDS: Folic Acid 1 MG TABLET PO (11:22)
[2024-03-15] MEDS: Famotidine 20 MG TABLET PO ×2 (11:22→20:09)
[2024-03-15] MEDS: Metoprolol Tartrate 25 MG TABLET PO ×2 (11:22→20:09)
[2024-03-15] MEDS: Venlafaxine HCL 25 MG TABLET PO (11:22)
[2024-03-15] MEDS: allopurinoL 100 MG TABLET PO (11:23)
[2024-03-15] MEDS: Aspirin Enteric Coated 81 MG TABLET.DR PO (11:23)
[2024-03-15] MEDS: Tacrolimus 0.5 MG CAPSULE PO ×2 (11:23→20:09)
[2024-03-15 11:30] VITALS: BP 164/76; PULSE 66; RESP 16; TEMP 36.2; O2SAT 99
--- NOTE | 2024-03-15 12:24 | P.PNIM_ITS ---
Subjective Subjective Date of Service: 03/15/24 Interval History: seen and examined reports abdominal pain even with clears denies diarrhea Review of Systems Negative except HPI/interval history. Physical Exam 2 Vital Signs: Vital Signs: Last Vital Signs Temp 97.2 F 03/15/24 11:30 Pulse 66 03/15/24 11:30 Resp 16 03/15/24 11:30 BP 164/76 H 03/15/24 11:30 Pulse Ox 99 03/15/24 11:30 O2 Del Method Room Air 03/15/24 11:30 BMI result Body Mass Index 23.2 Const: Other: General - no acute distress, appears comfortable Cardiovascular - regular rate and rhythm, S1-S2 Lungs - normal respiratory effort, clear to auscultation bilaterally, no wheezing Abdomen - mild lower quad TTP without rebound/guarding Extremities - no edema bilaterally Neuro - awake and alert, no focal deficits Objective Data Active Medications Acetaminophen (Acetaminophen 325 Mg Tablet) 975 mg PO Q6H PRN PRN Reason: Pain, Mild (Pain Scale 1-3), fever or headache Albuterol Sulfate (Albuterol Sulfate (0.083%) 2.5 Mg/3 Ml Vial.[facility]) 2.5 mg INHALE Q6H PRN PRN Reason: Shortness Of Breath Or Wheezing Allopurinol (Allopurinol 100 Mg Tablet) 100 mg PO DAILY@1200 [facility] Last Admin: 03/15/24 11:23 Dose: 100 mg Documented By: BRUNO Aspirin (Aspirin Enteric Coated 81 Mg Tablet.) 81 mg PO DAILY@1200 [facility] Last Admin: 03/15/24 11:23 Dose: 81 mg Documented By: BRUNO Atorvastatin Calcium (Atorvastatin Calcium 20 Mg Tablet) 20 mg PO BEDTIME [facility] Last Admin: 03/14/24 20:07 Dose: 20 mg Documented By: RIZWAN Ceftriaxone Sodium (Ceftriaxone Sodium 1 Gm Vial) 1 gm IVPUSH Q24H [facility] Last Admin: 03/15/24 08:27 Dose: 1 gm Documented By: BRNUO Famotidine (Famotidine 20 Mg Tablet) 20 mg PO BID@1200,2200 [facility] Last Admin: 03/15/24 11:22 Dose: 20 mg Documented By: BRUNO Folic Acid (Folic Acid 1 Mg Tablet) 1 mg PO DAILY@1200 [facility] Last Admin: 12/16/24 11:22 Dose: 1 mg Documented By: BRUNO Hydromorphone HCl (Hydromorphone Hcl 0.5 Mg/0.5 Ml Syringe) 1 mg IVPUSH Q4H PRN; Protocol PRN Reason: Pain, Severe (Pain Scale 7-10) Last Admin: 03/15/24 10:26 Dose: 1 mg Documented By: BRUNO Hydroxyzine HCl (Hydroxyzine Hcl 25 Mg Tablet) 25 mg PO TID PRN PRN Reason: Itching Last Admin: 03/15/24 00:36 Dose: 25 mg Documented By: RIZWAN Levothyroxine Sodium (Levothyroxine Sodium 88 Mcg Tablet) 88 mcg PO DAILY@0600 [facility] Last Admin: 03/15/24 05:38 Dose: 88 mcg Documented By: RIZWAN Metoprolol Tartrate (Metoprolol Tartrate 25 Mg Tablet) 25 mg PO BID@1200,2200 [facility]; Protocol Last Admin: 03/15/24 11:22 Dose: 25 mg Documented By: BRUNO Metronidazole (Metronidazole 500 Mg Tablet) 500 mg PO Q8H [facility] Last Admin: 03/15/24 08:27 Dose: 500 mg Documented By: BRUNO Ondansetron HCl (Ondansetron Hcl 4 Mg/2 Ml Vial) 4 mg IVPUSH Q8H PRN PRN Reason: Nausea and Vomiting Last Admin: 03/15/24 08:36 Dose: 4 mg Documented By: BRUNO Ropinirole HCl (Ropinirole Hcl 0.5 Mg Tablet) 0.5 mg PO BEDTIME@2200 [facility] Last Admin: 03/14/24 22:01 Dose: 0.5 mg Documented By: RIZWAN Sodium Chloride (0.9 % Sodium Chloride Flush 3 Ml Syringe) 3 ml IVFLUSH QSHIFT [facility] Last Admin: 03/15/24 08:27 Dose: 3 ml Documented By: BRUNO Tacrolimus (Tacrolimus 0.5 Mg Capsule) 0.5 mg PO BID@1200,2200 [facility] Last Admin: 03/15/24 11:23 Dose: 0.5 mg Documented By: BRUNO Venlafaxine HCl (Venlafaxine Hcl 25 Mg Tablet) 25 mg PO DAILY@1200 [facility] Last Admin: 03/15/24 11:22 Dose: 25 mg Documented By: BRUNO Vitamin D (Cholecalciferol (Vitamin D3) 25 Mcg Tablet) 50 mcg PO DAILY@1200 [facility] Last Admin: 03/15/24 11:22 Dose: 50 mcg Documented By: BRUNO Labs 03/14/24 05:42 03/14/24 05:42 Microbiology Microbiology Results: Microbiology 03/14/24 00:34 Blood Culture - Preliminary Blood - Venous No growth after 24 hours. 03/14/24 00:16 Blood Culture - Preliminary Blood - Venous No growth after 24 hours. Assessment and Plan (1) Diverticulitis: Status: Acute Plan 73 yo F with multiple medical problems presenting less than 24 hours after discharge after treatment for diverticulitis. Repeat CT showing on going diverticulitis with question raised about neoplastic process. 1. Recurrent diverticulitis continue antibotics - transition to oral once tolerating seen by GI during previous admission with recs for ouptatient colonoscopy will slowly advance diet -- on clears now, change to full liquids 2. ESRD on TTS dilaysis per nephrology 3. CAD/PAF continue baseline meds 4. GERD pepcid 5. COPD at baseline, continue inhalers 6. History of cirrhosis - s/p transplant in 2008 continue anti-rejection meds 7. hypothyroidism synthroid Full Code DVT pptx due to documented allergy with heparin products pt with recurrent diverticulitis and recurrent admission surrounding this -- will continue with IV antibotics and advance diet very slowly to avoid frequent readmissions. Quality Stroke Does the patient have a stroke diagnosis?: No VTE Prior VTE?: No VTE Risk Level:: Medical - moderate - high VTE Device Contraindication: N/A - Device Ordered VTE Drug Contraindication: Treatment Not Indicated
--- NOTE | 2024-03-15 13:36 | HO.WOUND ---
Wound Consult: Initial 73 yr old?female admitted to [facility] on 03/14/24 - See progress notes and H&P for detailed history.? Wound consult placed for Chronic Abdomen wound.? Patient agreeable to assessment and photo documentation.? Patient is known to this designer writer from previous admission. She reports since starting Durafiber [employer] which she continued at home she reports improvement in wound size and drainage. Patient reports she has had the wounds over over 7 years in various stages of healing. She reports they have never fully resurfaced. She reports initially they started after her liver surgery.. She reports she has followed with numerous doctors including dermatology with little improvement. She denies biopsy to her knowledge and is agreeable to follow up with our outp wound clinic at time of d/c. Left Abdomen Midline Abdomen Etiology: ?Unclear Etiology not consistent with pressure or moisture Wound Bed: red moist wound bed Drainage / Odor: small amount of serosang drainage Edges: ? well defined Jillian wound: ?Mild erythema , No Induration, Fluctuance or Warmth noted Pain: tenderness reported Goals of Treatment: ? Moisture Management with Durafiber AG Recommendations: 1. Abdomen - Cleanse abdomen with CHG wipes, cleanse wound bed with NS moist gauze. May shower and wash with soap and water. Apply skin prep to periwound. Cover and lightly pack Wound bed with Durafiber AG, Foam dressing. Change every other day to start. If drainage decreases consider every 3rd day change. Recommend follow up out patient Wound Clinic at [address] [place] [id number] and to call for an appointment at time of discharge. [phone].? 4. Provide adequate and supplemental nutrition.? Re-consult wound care Nurse for wound deterioration or wound changes.
[2024-03-15 15:31] VITALS: BP 131/60; PULSE 59; RESP 18; TEMP 36.6; O2SAT 99
[2024-03-15 18:58] VITALS: BP 145/64; PULSE 60; RESP 17; TEMP 36.2; O2SAT 100
[2024-03-15] MEDS: rOPINIRole HCL 0.5 MG TABLET PO (20:09)
[2024-03-15] MEDS: Atorvastatin Calcium 20 MG TABLET PO (20:09)
[2024-03-15 23:45] VITALS: BP 174/86; PULSE 61; RESP 17; TEMP 36.2; O2SAT 100
[2024-03-16] MEDS: metroNIDAZOLE 500 MG TABLET PO ×3 (00:10→16:32)
[2024-03-16] MEDS: HYDROmorphone HCl 0.5 MG/0.5 ML SYRINGE 1 MG IVPUSH ×4 (00:14→22:16)
[2024-03-16 03:10] VITALS: BP 146/65; PULSE 63; RESP 17; TEMP 36.2; O2SAT 97
[2024-03-16] MEDS: Levothyroxine Sodium 88 MCG TABLET PO (04:32)
[2024-03-16 07:41] VITALS: BP 139/60; PULSE 62; RESP 16; TEMP 36.3; O2SAT 97
[2024-03-16] MEDS: cefTRIAXone sodium 1 GM VIAL IVPUSH (08:03)
[2024-03-16] MEDS: 0.9 % Sodium Chloride Flush 3 ML SYRINGE IVFLUSH ×2 (08:03→22:17)
--- NOTE | 2024-03-16 09:00 | PM.CNNEP ---
History of Present Illness Reason for Consult Consult date: 03/16/24 Chief Complaint Chief complaint: Recurrent Diverticulitis History of Present Illness Narrative: 73 y/o female with ESRD on HD ([place], [place], Sat). She is a patient of Dr Umanzor. 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 she has had multiple admissions recently, most recently discharged 03/12/24. she presented 12/15 a.m. with lower abdominal pain, CT suggestive of mild diverticulitis vs neoplasm, being treated wtih IV abx, being followed by GI. Nephrology consulted for ESRD and HD management while hospitalized. she has not missed any sessions recently. Last session was on Friday, 03/13 per pt. labs stable she states abdominal pain is same as before, on left lower side. She does not think abdominal pain worsens during dialysis but she will watch for this. she states breathing is at her baseline (exertional dyspnea, comfortable at rest). she remains oliguric (baseline), denies pain with urination, flank pain, difficulty emptying bladder. denies other concerns/symptoms. Review of Systems Constitutional: Reports fatigue and Denies headache(s) Denies dizziness and Denies headache(s) Cardiovascular: Denies chest pain, Denies leg edema, Denies lightheadedness and Denies dyspnea Respiratory: Denies cough and Denies dyspnea Gastrointestinal: Reports abdominal pain (pain across lower abdomen, worse on left side), Reports constipation, Denies diarrhea, Denies nausea and Denies vomiting Genitourinary: Denies hematuria, Denies difficulty voiding, Denies dysuria and Denies flank pain Musculoskeletal: Denies back pain and Denies arthralgias Skin/Breast: Denies rash Denies dizziness and Denies headache(s) Endocrine: Reports fatigue PMFSH Past Medical History Medical History ESRD (end stage renal disease) on dialysis Congestive heart failure Patient on waiting list for kidney transplant Gout History of transcatheter aortic valve replacement (TAVR) History of blood transfusion GERD (gastroesophageal reflux disease) Anxiety and depression AV fistula Hemodialysis patient COVID-19 vaccine series completed Murmur Hyperkalemia Left inguinal hernia DJD (degenerative joint disease) of thoracic spine Neuropathy End-stage renal disease (ESRD) COPD (chronic obstructive pulmonary disease) Coronary artery disease Bronchitis Asthma Arthritis Anemia Cirrhosis Surgical History Surgical History Hx of colonoscopy History of liver transplant History of surgery on arm Social History Social History Household Members: None Housing: Apartment Are you a primary day care teacher to a significant other at home: No Do you presently have visiting nurse or other home services: Yes Unable to assess alcohol history related to: Unable to respond Alcohol intake: never Comment: pt refused bed alarm Patient Tobacco Use Status: Former Tobacco user Tobacco use type: Cigarette Cigarette Packs Per Day: 2 Cigarettes Per Day: 40.0 Years Smoked: 25 Smoked in Last 30 Days: No e-Cigarette/Vaping Use: Never Used Second Hand Smoke Exposure: No Use of substances other than those prescribed or required for medical reasons: No Currently Displaying Signs/Symptoms of Drug Intoxication Withdrawal: No Have you been hit, kicked, punched, or otherwise hurt by someone within the past year? If so, by whom?: No Do you feel safe in your current relationship?: No Current Relationship Is there a partner from a previous relationship who is making you feel unsafe now?: No Are you made to feel afraid or neglected: No Advance Directives: Yes Advance Directives on File: Yes Advance Directives Date on File: 03/08/20 Do you have a plan to hurt others: No Plan Recently lost weight without trying: No Nutrition Risks: No Nutritional Risk Patient : No : No Poor oral hygiene: No service: No Current occupational status: retired Meds Allergies Allergy/AdvReac Type Severity Reaction Status Date / Time Sulfa (Sulfonamide Allergy Intermediate HIVES Verified 03/13/24 23:30 Antibiotics) Heparin Analogues Allergy Unknown UNKNOWN Verified 03/13/24 23:30 [Heparin Agents] verapamil Allergy Unknown unknown Verified 03/13/24 23:30 Active Medications: Current Medications Acetaminophen (Acetaminophen 325 Mg Tablet) 975 mg PO Q6H PRN PRN Reason: Pain, Mild (Pain Scale 1-3), fever or headache Albuterol Sulfate (Albuterol Sulfate (0.083%) 2.5 Mg/3 Ml Vial.Neb) 2.5 mg INHALE Q6H PRN PRN Reason: Shortness Of Breath Or Wheezing Allopurinol (Allopurinol 100 Mg Tablet) 100 mg PO DAILY@1200 [facility] Last Admin: 03/15/24 11:23 Dose: 100 mg Aspirin (Aspirin Enteric Coated 81 Mg Tablet.Dr) 81 mg PO DAILY@1200 [facility] Last Admin: 03/15/24 11:23 Dose: 81 mg Atorvastatin Calcium (Atorvastatin Calcium 20 Mg Tablet) 20 mg PO BEDTIME [facility] Last Admin: 03/15/24 20:09 Dose: 20 mg Ceftriaxone Sodium (Ceftriaxone Sodium 1 Gm Vial) 1 gm IVPUSH Q24H [facility] Last Admin: 03/16/24 08:03 Dose: 1 gm Famotidine (Famotidine 20 Mg Tablet) 20 mg PO BID@1200,2200 [facility] Last Admin: 03/15/24 20:09 Dose: 20 mg Folic Acid (Folic Acid 1 Mg Tablet) 1 mg PO DAILY@1200 [facility] Last Admin: 03/15/24 11:22 Dose: 1 mg Hydromorphone HCl (Hydromorphone Hcl 0.5 Mg/0.5 Ml Syringe) 1 mg IVPUSH Q4H PRN; Protocol PRN Reason: Pain, Severe (Pain Scale 7-10) Last Admin: 03/16/24 04:31 Dose: 1 mg Hydroxyzine HCl (Hydroxyzine Hcl 25 Mg Tablet) 25 mg PO TID PRN PRN Reason: Itching Last Admin: 03/15/24 00:36 Dose: 25 mg Levothyroxine Sodium (Levothyroxine Sodium 88 Mcg Tablet) 88 mcg PO DAILY@0600 [facility] Last Admin: 03/16/24 04:32 Dose: 88 mcg Metoprolol Tartrate (Metoprolol Tartrate 25 Mg Tablet) 25 mg PO BID@1200,2200 [facility]; Protocol Last Admin: 03/15/24 20:09 Dose: 25 mg Metronidazole (Metronidazole 500 Mg Tablet) 500 mg PO Q8H [facility] Last Admin: 03/16/24 08:02 Dose: 500 mg Ondansetron HCl (Ondansetron Hcl 4 Mg/2 Ml Vial) 4 mg IVPUSH Q8H PRN PRN Reason: Nausea and Vomiting Last Admin: 03/15/24 08:36 Dose: 4 mg Ropinirole HCl (Ropinirole Hcl 0.5 Mg Tablet) 0.5 mg PO BEDTIME@2200 [facility] Last Admin: 03/15/24 20:09 Dose: 0.5 mg Sodium Chloride (0.9 % Sodium Chloride Flush 3 Ml Syringe) 3 ml IVFLUSH QSHIFT [facility] Last Admin: 03/16/24 08:03 Dose: 3 ml Tacrolimus (Tacrolimus 0.5 Mg Capsule) 0.5 mg PO BID@1200,2200 [facility] Last Admin: 03/15/24 20:09 Dose: 0.5 mg Venlafaxine HCl (Venlafaxine Hcl 25 Mg Tablet) 25 mg PO DAILY@1200 [facility] Last Admin: 03/15/24 11:22 Dose: 25 mg Vitamin D (Cholecalciferol (Vitamin D3) 25 Mcg Tablet) 50 mcg PO DAILY@1200 [facility] Last Admin: 03/15/24 11:22 Dose: 50 mcg Home Medications ?Medication ?Instructions ?Recorded ?Confirmed ?Last Taken ?Type aspirin 81 mg tablet,delayed 81 mg PO DAILY@1200 01/26/20 03/14/24 03/10/24 History release allopurinol 100 mg tablet 100 mg PO DAILY@1200 03/08/20 03/14/24 03/10/24 History cholecalciferol (vitamin D3) 50 1 tab PO DAILY@1200 08/14/20 03/14/24 03/10/24 History mcg (2,000 unit) tablet hydroxyzine HCl 25 mg tablet 1 tab PO TID PRN Itching 08/14/20 03/14/24 04/04/23 History ropinirole 0.5 mg tablet 1 tab PO BEDTIME@2200 08/14/20 03/14/24 03/10/24 History venlafaxine 25 mg tablet 1 tab PO DAILY@1200 08/14/20 03/14/24 03/10/24 History famotidine 20 mg tablet 1 tab PO BID@1200,2200 01/14/22 03/14/24 03/10/24 History rosuvastatin 5 mg tablet 1 tab PO BEDTIME 01/14/22 03/14/24 03/10/24 History levothyroxine 88 mcg tablet 88 mcg PO DAILY@0600 01/20/23 03/14/24 03/10/24 History albuterol sulfate 90 mcg/actuation 1 puff inhalation Q6H PRN 06/09/23 03/14/24 Unknown History aerosol inhaler (Ventolin HFA) Shortness Of Breath Or Wheezing tacrolimus 0.5 mg capsule, 0.5 mg PO BID@1200,2200 07/15/23 03/14/24 03/10/24 History immediate-release folic acid 1 mg tablet 1 mg PO DAILY@1200 02/04/24 03/14/24 03/10/24 History metoprolol tartrate 25 mg tablet 25 mg PO BID@1200,2200 02/04/24 03/14/24 03/10/24 History albuterol sulfate 2.5 mg/3 mL 2.5 mg inhalation Q6H PRN 03/11/24 03/14/24 Unknown History (0.083 %) solution for nebulization Shortness Of Breath Or Wheezing calcium citrate 400 mg PO BID@1200,2200 03/11/24 03/14/24 03/10/24 History Physical Exam Vital Signs: Last Vital Signs Temp 97.4 F 03/16/24 07:41 Pulse 62 03/16/24 07:41 Resp 16 03/16/24 07:41 BP 139/60 03/16/24 07:41 Pulse Ox 97 03/16/24 07:41 O2 Del Method Room Air 03/16/24 07:41 BMI result Body Mass Index 23.2 Const General: no acute distress, alert and awake Resp Effort & Inspection: normal respiratory effort and able to speak in complete sentences Auscultation: clear to auscultation bilaterally Cardio Rate: regular rate Rhythm: regular rhythm Heart sounds: S1 normal heart sound present and S2 normal heart sound present GI Palpation (GI): Soft to palpation and Tenderness to palpation present (GI) (lower abdominal tenderness to palpation) General: Yes no CVA tenderness Back/Spine/Pelvis Back: no CVA tenderness Skin Lesions: no lesions Rashes: no rashes Extrem General: No edema Results Lab Results 03/14/24 05:42 03/14/24 05:42 Lab results: Chemistry 03/13/24 03/14/24 23:48 05:42 Sodium 139 139 Potassium 4.2 3.6 Carbon Dioxide 29 27 BUN 17 H 18 H Creatinine 3.33 H 3.54 H Calcium 8.0 L D 8.2 L Hematology 03/13/24 03/14/24 23:48 05:42 WBC 7.2 8.1 Hgb 11.3 L 11.2 L Plt Count [id number] Assessment and Plan (1) ESRD (end stage renal disease) on dialysis: Status: Acute Plan 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 ~15 years ago) on HD here with LLQ abdominal pain, ?recurrent diverticulitis. HD , , Sat schedule as outpatient ([facility]) - plan for HD today to stay on outpatient schedule no uremic symptoms pt appears euvolemic 02/22 H&H 11.2 and 35.6, no indication for procrit at this time potassium normal, not metabolically acidotic at this time calcium within normal limits phosphorous 2.5 on 02/19, will re-check updated level has left upper extremity AV fistula with +bruit, +thrill oliguric at baseline (small amount every few days per pt) Will continue to follow Discussed with Dr Schilling Procedures Date of Service Date of Service: 03/16/24
--- NOTE | 2024-03-16 09:03 | P.PNIM_ITS ---
Subjective Subjective Date of Service: 03/16/24 Review of Systems Follow up abd pain, ? diverticulitis mild abd pain Physical Exam 2 Vital Signs: Vital Signs: Last Vital Signs Temp 97.4 F 03/16/24 07:41 Pulse 62 03/16/24 07:41 Resp 16 03/16/24 07:41 BP 139/60 03/16/24 07:41 Pulse Ox 97 03/16/24 07:41 O2 Del Method Room Air 03/16/24 07:41 BMI result Body Mass Index 23.2 Appearing in no acute distress lung sounds are clear to auscultation heart regular rate rhythm, clear S1, S2 positive bowel sounds, abdomen is soft, nontender neuro patient is alert x3, no focal deficits Objective Data Active Medications Acetaminophen (Acetaminophen 325 Mg Tablet) 975 mg PO Q6H PRN PRN Reason: Pain, Mild (Pain Scale 1-3), fever or headache Albuterol Sulfate (Albuterol Sulfate (0.083%) 2.5 Mg/3 Ml Vial.Veena) 2.5 mg INHALE Q6H PRN PRN Reason: Shortness Of Breath Or Wheezing Allopurinol (Allopurinol 100 Mg Tablet) 100 mg PO DAILY@1200 [facility] Last Admin: 03/15/24 11:23 Dose: 100 mg Documented By: BRUNO Aspirin (Aspirin Enteric Coated 81 Mg Tablet.) 81 mg PO DAILY@1200 [facility] Last Admin: 03/15/24 11:23 Dose: 81 mg Documented By: BRUNO Atorvastatin Calcium (Atorvastatin Calcium 20 Mg Tablet) 20 mg PO BEDTIME [facility] Last Admin: 03/15/24 20:09 Dose: 20 mg Documented By: BOBBY Ceftriaxone Sodium (Ceftriaxone Sodium 1 Gm Vial) 1 gm IVPUSH Q24H [facility] Last Admin: 03/16/24 08:03 Dose: 1 gm Documented By: IDALMIS Famotidine (Famotidine 20 Mg Tablet) 20 mg PO BID@1200,2200 [facility] Last Admin: 03/15/24 20:09 Dose: 20 mg Documented By: BOBBY Folic Acid (Folic Acid 1 Mg Tablet) 1 mg PO DAILY@1200 [facility] Last Admin: 03/15/24 11:22 Dose: 1 mg Documented By: BRUNO Hydromorphone HCl (Hydromorphone Hcl 0.5 Mg/0.5 Ml Syringe) 1 mg IVPUSH Q4H PRN; Protocol PRN Reason: Pain, Severe (Pain Scale 7-10) Last Admin: 03/16/24 04:31 Dose: 1 mg Documented By: BOBBY Hydroxyzine HCl (Hydroxyzine Hcl 25 Mg Tablet) 25 mg PO TID PRN PRN Reason: Itching Last Admin: 03/15/24 00:36 Dose: 25 mg Documented By: RIZWAN Levothyroxine Sodium (Levothyroxine Sodium 88 Mcg Tablet) 88 mcg PO DAILY@0600 [facility] Last Admin: 03/16/24 04:32 Dose: 88 mcg Documented By: BOBBY Metoprolol Tartrate (Metoprolol Tartrate 25 Mg Tablet) 25 mg PO BID@1200,2200 [facility]; Protocol Last Admin: 03/15/24 20:09 Dose: 25 mg Documented By: BOBBY Metronidazole (Metronidazole 500 Mg Tablet) 500 mg PO Q8H [facility] Last Admin: 03/16/24 08:02 Dose: 500 mg Documented By: IDALMIS Ondansetron HCl (Ondansetron Hcl 4 Mg/2 Ml Vial) 4 mg IVPUSH Q8H PRN PRN Reason: Nausea and Vomiting Last Admin: 03/15/24 08:36 Dose: 4 mg Documented By: BRUNO Ropinirole HCl (Ropinirole Hcl 0.5 Mg Tablet) 0.5 mg PO BEDTIME@2200 [facility] Last Admin: 03/15/24 20:09 Dose: 0.5 mg Documented By: BOBBY Sodium Chloride (0.9 % Sodium Chloride Flush 3 Ml Syringe) 3 ml IVFLUSH QSHIFT [facility] Last Admin: 03/16/24 08:03 Dose: 3 ml Documented By: IDALMIS Tacrolimus (Tacrolimus 0.5 Mg Capsule) 0.5 mg PO BID@1200,2200 [facility] Last Admin: 03/15/24 20:09 Dose: 0.5 mg Documented By: BOBBY Venlafaxine HCl (Venlafaxine Hcl 25 Mg Tablet) 25 mg PO DAILY@1200 [facility] Last Admin: 03/15/24 11:22 Dose: 25 mg Documented By: BRUNO Vitamin D (Cholecalciferol (Vitamin D3) 25 Mcg Tablet) 50 mcg PO DAILY@1200 [facility] Last Admin: 03/15/24 11:22 Dose: 50 mcg Documented By: BRUNO Labs 03/14/24 05:42 03/14/24 05:42 Microbiology Microbiology Results: Microbiology 03/14/24 00:34 Blood Culture - Preliminary Blood - Venous No growth after 48 hours. 03/14/24 00:16 Blood Culture - Preliminary Blood - Venous No growth after 48 hours. Assessment and Plan (1) Diverticulitis: Status: Acute Plan 73 yo F with multiple medical problems presenting less than 24 hours after discharge after treatment for diverticulitis. Repeat CT showing on going diverticulitis with question raised about neoplastic process. Recurrent diverticulitis continue antibotics - transition to oral once tolerating seen by GI> plan for colonoscopy in am, continue clears will slowly advance diet -- on clears now, change to full liquids ESRD on TTS dialysis per nephrology CAD/PAF continue baseline meds GERD pepcid COPD at baseline, continue inhalers History of cirrhosis - s/p transplant in 2008 continue anti-rejection meds Hypothyroidism synthroid Full Code DVT ppt with SCD, due to documented allergy with heparin products Quality Stroke Does the patient have a stroke diagnosis?: No VTE Prior VTE?: No VTE Risk Level:: Medical - moderate - high VTE Device Contraindication: N/A - Device Ordered VTE Drug Contraindication: Treatment Not Indicated
--- NOTE | 2024-03-16 09:39 | P.CNGI_ITS ---
History of Present Illness Data of Consult Service Date: 03/16/24 Primary Care Provider: Vanessa Hu MD HPI Reason for consult: ?diverticulitis 73 years old woman with hx of ESRD on HD, cirrhosis status post liver transplant, paroxysmal AFib, COPD -no home O2, GERD, CAD and hypothyroidism who I am seeing for diverticulitis Patient was d/c'ed few days ago wt dx of diverticulitis. Howevere she then had severe 10/10 LLQ pain with nausea,and diarrhea x2 with some blood noted. She denies chest pain, palpitations, dizziness or shortness on breath, fever and chills. she does admit to poor appetite and weight loss 10 # over last several weeks. Today she feels more relaxed and is receiving flagyl and ceftriaxone. CT imaging read as uncomplicated diverticulitis but neoplasia not excluded. Review of Systems 2 Review of Systems: Constitutional : + Weight loss, No Fever, No Chills ENT/Mouth : No sore throat, No Rhinorrhea Eyes: No Swelling, No Redness Cardiovascular : No Chest Pain, No SOB, No Edema Respiratory : No Cough, No Sputum, No Wheezing Gastrointestinal : see HPI Genitourinary : NO Dysuria, No Urinary Frequency, No Hematuria, No Urgency Musculoskeletal : + joint pain, No Myalgias, No Joint Swelling Skin : No Skin Lesions, No rash Neuro : No Weakness, No Numbness, No Dizziness, No Headache Psych : No Anxiety/Panic, No Depression Heme/Lymph: No Bruising, No Lymphadenopathy Endocrine : No Polyuria, No Polydipsia All other systems reviewed and are negative. [facility] Past Medical History Medical History ESRD (end stage renal disease) on dialysis Congestive heart failure Patient on waiting list for kidney transplant Gout History of transcatheter aortic valve replacement (TAVR) History of blood transfusion GERD (gastroesophageal reflux disease) Anxiety and depression AV fistula Hemodialysis patient COVID-19 vaccine series completed Murmur Hyperkalemia Left inguinal hernia DJD (degenerative joint disease) of thoracic spine Neuropathy End-stage renal disease (ESRD) COPD (chronic obstructive pulmonary disease) Coronary artery disease Bronchitis Asthma Arthritis Anemia Cirrhosis Family History Pertinent family history: no FH of CRC Surgical History Surgical History Hx of colonoscopy History of liver transplant History of surgery on arm Social History Social History Household Members: None Housing: Apartment Are you a primary skin care therapist to a significant other at home: No Do you presently have visiting nurse or other home services: Yes Unable to assess alcohol history related to: Unable to respond Alcohol intake: never Comment: pt refused bed alarm Patient Tobacco Use Status: Former Tobacco user Tobacco use type: Cigarette Cigarette Packs Per Day: 2 Cigarettes Per Day: 40.0 Years Smoked: 25 Smoked in Last 30 Days: No e-Cigarette/Vaping Use: Never Used Second Hand Smoke Exposure: No Use of substances other than those prescribed or required for medical reasons: No Currently Displaying Signs/Symptoms of Drug Intoxication Withdrawal: No Have you been hit, kicked, punched, or otherwise hurt by someone within the past year? If so, by whom?: No Do you feel safe in your current relationship?: No Current Relationship Is there a partner from a previous relationship who is making you feel unsafe now?: No Are you made to feel afraid or neglected: No Advance Directives: Yes Advance Directives on File: Yes Advance Directives Date on File: 03/08/20 Do you have a plan to hurt others: No Plan Recently lost weight without trying: No Nutrition Risks: No Nutritional Risk Patient : No : No Poor oral hygiene: No service: No Current occupational status: retired Meds Allergies Allergy/AdvReac Type Severity Reaction Status Date / Time Sulfa (Sulfonamide Allergy Intermediate HIVES Verified 03/13/24 23:30 Antibiotics) Heparin Analogues Allergy Unknown UNKNOWN Verified 03/13/24 23:30 [Heparin Agents] verapamil Allergy Unknown unknown Verified 03/13/24 23:30 Active Medications: Current Medications Acetaminophen (Acetaminophen 325 Mg Tablet) 975 mg PO Q6H PRN PRN Reason: Pain, Mild (Pain Scale 1-3), fever or headache Albuterol Sulfate (Albuterol Sulfate (0.083%) 2.5 Mg/3 Ml Vial.Neb) 2.5 mg INHALE Q6H PRN PRN Reason: Shortness Of Breath Or Wheezing Allopurinol (Allopurinol 100 Mg Tablet) 100 mg PO DAILY@1200 [facility] Last Admin: 03/15/24 11:23 Dose: 100 mg Aspirin (Aspirin Enteric Coated 81 Mg Tablet.Dr) 81 mg PO DAILY@1200 [facility] Last Admin: 03/15/24 11:23 Dose: 81 mg Atorvastatin Calcium (Atorvastatin Calcium 20 Mg Tablet) 20 mg PO BEDTIME [facility] Last Admin: 03/15/24 20:09 Dose: 20 mg Ceftriaxone Sodium (Ceftriaxone Sodium 1 Gm Vial) 1 gm IVPUSH Q24H [facility] Last Admin: 03/16/24 08:03 Dose: 1 gm Famotidine (Famotidine 20 Mg Tablet) 20 mg PO BID@1200,2200 [facility] Last Admin: 03/15/24 20:09 Dose: 20 mg Folic Acid (Folic Acid 1 Mg Tablet) 1 mg PO DAILY@1200 [facility] Last Admin: 03/15/24 11:22 Dose: 1 mg Hydromorphone HCl (Hydromorphone Hcl 0.5 Mg/0.5 Ml Syringe) 1 mg IVPUSH Q4H PRN; Protocol PRN Reason: Pain, Severe (Pain Scale 7-10) Last Admin: 03/16/24 04:31 Dose: 1 mg Hydroxyzine HCl (Hydroxyzine Hcl 25 Mg Tablet) 25 mg PO TID PRN PRN Reason: Itching Last Admin: 03/15/24 00:36 Dose: 25 mg Levothyroxine Sodium (Levothyroxine Sodium 88 Mcg Tablet) 88 mcg PO DAILY@0600 [facility] Last Admin: 03/16/24 04:32 Dose: 88 mcg Metoprolol Tartrate (Metoprolol Tartrate 25 Mg Tablet) 25 mg PO BID@1200,2200 [facility]; Protocol Last Admin: 03/15/24 20:09 Dose: 25 mg Metronidazole (Metronidazole 500 Mg Tablet) 500 mg PO Q8H [facility] Last Admin: 03/16/24 08:02 Dose: 500 mg Ondansetron HCl (Ondansetron Hcl 4 Mg/2 Ml Vial) 4 mg IVPUSH Q8H PRN PRN Reason: Nausea and Vomiting Last Admin: 03/15/24 08:36 Dose: 4 mg Ropinirole HCl (Ropinirole Hcl 0.5 Mg Tablet) 0.5 mg PO BEDTIME@2200 [facility] Last Admin: 03/15/24 20:09 Dose: 0.5 mg Sodium Chloride (0.9 % Sodium Chloride Flush 3 Ml Syringe) 3 ml IVFLUSH QSHIFT [facility] Last Admin: 03/16/24 08:03 Dose: 3 ml Tacrolimus (Tacrolimus 0.5 Mg Capsule) 0.5 mg PO BID@1200,2200 [facility] Last Admin: 03/15/24 20:09 Dose: 0.5 mg Venlafaxine HCl (Venlafaxine Hcl 25 Mg Tablet) 25 mg PO DAILY@1200 [facility] Last Admin: 03/15/24 11:22 Dose: 25 mg Vitamin D (Cholecalciferol (Vitamin D3) 25 Mcg Tablet) 50 mcg PO DAILY@1200 [facility] Last Admin: 03/15/24 11:22 Dose: 50 mcg Home Medications ?Medication ?Instructions ?Recorded ?Confirmed ?Last Taken ?Type aspirin 81 mg tablet,delayed 81 mg PO DAILY@1200 01/26/20 03/14/24 03/10/24 History release allopurinol 100 mg tablet 100 mg PO DAILY@1200 03/08/20 03/14/24 03/10/24 History cholecalciferol (vitamin D3) 50 1 tab PO DAILY@1200 08/14/20 03/14/24 03/10/24 History mcg (2,000 unit) tablet hydroxyzine HCl 25 mg tablet 1 tab PO TID PRN Itching 08/14/20 03/14/24 04/04/23 History ropinirole 0.5 mg tablet 1 tab PO BEDTIME@2200 08/14/20 03/14/24 03/10/24 History venlafaxine 25 mg tablet 1 tab PO DAILY@1200 08/14/20 03/14/24 03/10/24 History famotidine 20 mg tablet 1 tab PO BID@1200,2200 01/14/22 03/14/24 03/10/24 History rosuvastatin 5 mg tablet 1 tab PO BEDTIME 01/14/22 03/14/24 03/10/24 History levothyroxine 88 mcg tablet 88 mcg PO DAILY@0600 01/20/23 03/14/24 03/10/24 History albuterol sulfate 90 mcg/actuation 1 puff inhalation Q6H PRN 06/09/23 03/14/24 Unknown History aerosol inhaler (Ventolin HFA) Shortness Of Breath Or Wheezing tacrolimus 0.5 mg capsule, 0.5 mg PO BID@1200,2200 07/15/23 03/14/24 03/10/24 History immediate-release folic acid 1 mg tablet 1 mg PO DAILY@1200 02/04/24 03/14/24 03/10/24 History metoprolol tartrate 25 mg tablet 25 mg PO BID@1200,2200 02/04/24 03/14/24 03/10/24 History albuterol sulfate 2.5 mg/3 mL 2.5 mg inhalation Q6H PRN 03/11/24 03/14/24 Unknown History (0.083 %) solution for nebulization Shortness Of Breath Or Wheezing calcium citrate 400 mg PO BID@1200,2200 03/11/24 03/14/24 03/10/24 History Physical Exam 2 Vital Signs: Vital Signs: Last Vital Signs Temp 97.4 F 03/16/24 07:41 Pulse 62 03/16/24 07:41 Resp 16 03/16/24 07:41 BP 139/60 03/16/24 07:41 Pulse Ox 97 03/16/24 07:41 O2 Del Method Room Air 03/16/24 07:41 BMI result Body Mass Index 23.2 EXAM: GENERAL: The patient is frail and thin VITAL SIGNS:see workflow HEENT: Nonicteric sclerae, PERRLA, EOMI. Oropharynx clear. Moist mucous membranes. Conjunctivae appear well perfused. No thyroid mass. CHEST: Chest wall is nontender. HEART: Regular rate and rhythm without murmurs. LUNGS: Clear to auscultation bilaterally. ABDOMEN: Soft, positive bowel sounds, tender LLQ +, no organomegaly.no flank tenderness SKIN: No rash, no excessive bruising, petechiae, or purpura. NEUROLOGIC: Cranial nerves II-XII intact without motor/sensory deficit. Psych: normal affect Results Labs 03/14/24 05:42 03/14/24 05:42 Microbiology Microbiology Results: Microbiology 03/14/24 00:34 Blood - Venous Blood Culture - Preliminary No growth after 48 hours. 03/14/24 00:16 Blood - Venous Blood Culture - Preliminary No growth after [address] scan - abdomen: Attestation: I personally reviewed and interpreted this imaging study as follows: (sigmoid thickening and mild stranding ) Assessment and Plan (1) Diverticulitis: Status: Acute Plan 1/ Diverticulitis, concern for underlying mass PLAN: 1/ Sigmoidoscopy tomorrow -can use soap anisha enemas before hand 2/ allow clears today Procedures Date of Service Date of Service: 03/16/24
[2024-03-16] MEDS: Venlafaxine HCL 25 MG TABLET PO (14:57)
[2024-03-16] MEDS: Tacrolimus 0.5 MG CAPSULE PO ×2 (14:57→20:18)
[2024-03-16] MEDS: Metoprolol Tartrate 25 MG TABLET PO (14:58)
[2024-03-16] MEDS: Aspirin Enteric Coated 81 MG TABLET.DR PO (14:58)
[2024-03-16] MEDS: Folic Acid 1 MG TABLET PO (14:58)
[2024-03-16] MEDS: Cholecalciferol (Vitamin D3) 25 MCG TABLET 50 MCG PO (14:58)
[2024-03-16 14:59] VITALS: BP 126/60; PULSE 52; RESP 16; TEMP 36.6; O2SAT 98
[2024-03-16] MEDS: allopurinoL 100 MG TABLET PO (14:59)
[2024-03-16] MEDS: Famotidine 20 MG TABLET PO ×2 (14:59→20:18)
[2024-03-16] MEDS: ondansetron HCL 4 MG/2 ML VIAL IVPUSH (16:32)
[2024-03-16 19:54] VITALS: PULSE 60; RESP 18; TEMP 36.6; O2SAT 98
[2024-03-16 20:17] VITALS: BP 114/61
[2024-03-16] MEDS: rOPINIRole HCL 0.5 MG TABLET PO (20:18)
[2024-03-16] MEDS: Atorvastatin Calcium 20 MG TABLET PO (20:18)
[2024-03-17] VITALS (9 sets, daily range): BP systolic 94–155; BP diastolic 39–92; PULSE 52–65; RESP 14–18; TEMP 36–37.1; O2SAT 97–100
[2024-03-17] MEDS: metroNIDAZOLE 500 MG TABLET PO ×3 (00:04→16:33)
[2024-03-17] MEDS: hydrOXYzine HCL 25 MG TABLET PO ×3 (00:07→19:08)
[2024-03-17] MEDS: HYDROmorphone HCl 0.5 MG/0.5 ML SYRINGE 1 MG IVPUSH ×4 (02:40→19:04)
[2024-03-17] MEDS: Levothyroxine Sodium 88 MCG TABLET PO (05:25)
[2024-03-17 07:57] LABS: Hematocrit 32.1 % (37.0-47.0); Hemoglobin 10.3 g/dl (12.0-16.0); Mean Corpuscular HGB Conc 32.1 g/dl (31.0-35.0); Mean Corpuscular Hemoglobin 29.5 pg (27.0-33.0); Platelet Count 247 X10*3/uL (160-400); Red Blood Count 3.49 X10*6/uL (4.20-5.50); Red Cell Distribution Width 15.6 % (11.0-16.0)
[2024-03-17] MEDS: cefTRIAXone sodium 1 GM VIAL IVPUSH (08:02)
[2024-03-17] MEDS: 0.9 % Sodium Chloride Flush 3 ML SYRINGE IVFLUSH ×3 (08:02→19:05)
[2024-03-17 08:06] LABS: Parathyroid Hormone Intact 451.8 pg/mL (8.7-77.1)
[2024-03-17 08:09] LABS: Anion Gap 14 (12-20); Blood Urea Nitrogen 16 mg/dL (9-16); Calcium 7.6 mg/dL (8.4-10.2); Carbon Dioxide 26 mmol/L (22-29); Chloride 97 mmol/L (96-108); Estimated Glomerular Filt Rate 10; Glucose Random 77 mg/dL (60-115); Phosphorus 2.2 mg/dL (2.7-4.5); Potassium 4.1 mmol/L (3.3-5.1); Sodium 133 mmol/L (135-145)
--- NOTE | 2024-03-17 08:19 | HO.PM.IMPN ---
Subjective Subjective Date of Service: 03/17/24 Review of Systems Follow up abd pain, ? diverticulitis mild abd pain Physical Exam Vital Signs: Vital Signs: Last Vital Signs Temp 97.0 F 03/17/24 07:44 Pulse 65 03/17/24 07:44 Resp 14 03/17/24 07:44 BP 146/70 H 03/17/24 07:44 Pulse Ox 100 03/17/24 07:44 O2 Del Method Room Air 03/17/24 07:44 BMI result Body Mass Index 23.2 Appearing in no acute distress lung sounds are clear to auscultation heart regular rate rhythm, clear S1, S2 positive bowel sounds, abdomen is soft, nontender neuro patient is alert x3, no focal deficits Objective Data Active Medications Acetaminophen (Acetaminophen 325 Mg Tablet) 975 mg PO Q6H PRN PRN Reason: Pain, Mild (Pain Scale 1-3), fever or headache Albuterol Sulfate (Albuterol Sulfate (0.083%) 2.5 Mg/3 Ml Vial.Veena) 2.5 mg INHALE Q6H PRN PRN Reason: Shortness Of Breath Or Wheezing Allopurinol (Allopurinol 100 Mg Tablet) 100 mg PO DAILY@1200 [facility] Last Admin: 03/16/24 14:59 Dose: 100 mg Documented By: IDALMIS Aspirin (Aspirin Enteric Coated 81 Mg Tablet.) 81 mg PO DAILY@1200 [facility] Last Admin: 03/16/24 14:58 Dose: 81 mg Documented By: IDALMIS Atorvastatin Calcium (Atorvastatin Calcium 20 Mg Tablet) 20 mg PO BEDTIME [facility] Last Admin: 03/16/24 20:18 Dose: 20 mg Documented By: BOBBY Ceftriaxone Sodium (Ceftriaxone Sodium 1 Gm Vial) 1 gm IVPUSH Q24H [facility] Last Admin: 03/17/24 08:02 Dose: 1 gm Documented By: IDALMIS Famotidine (Famotidine 20 Mg Tablet) 20 mg PO BID@1200,2200 [facility] Last Admin: 03/16/24 20:18 Dose: 20 mg Documented By: BOBBY Folic Acid (Folic Acid 1 Mg Tablet) 1 mg PO DAILY@1200 [facility] Last Admin: 03/16/24 14:58 Dose: 1 mg Documented By: IDALMIS Hydromorphone HCl (Hydromorphone Hcl 0.5 Mg/0.5 Ml Syringe) 1 mg IVPUSH Q4H PRN; Protocol PRN Reason: Pain, Severe (Pain Scale 7-10) Last Admin: 03/17/24 02:40 Dose: 1 mg Documented By: BOBBY Hydroxyzine HCl (Hydroxyzine Hcl 25 Mg Tablet) 25 mg PO TID PRN PRN Reason: Itching Last Admin: 03/17/24 00:07 Dose: 25 mg Documented By: BOBBY Levothyroxine Sodium (Levothyroxine Sodium 88 Mcg Tablet) 88 mcg PO DAILY@0600 [facility] Last Admin: 03/17/24 05:25 Dose: 88 mcg Documented By: BOBBY Metoprolol Tartrate (Metoprolol Tartrate 25 Mg Tablet) 25 mg PO BID@1200,2200 [facility]; Protocol Last Admin: 03/16/24 20:18 Dose: Not Given Documented By: BOBBY Non-Admin Reason: HR low Metronidazole (Metronidazole 500 Mg Tablet) 500 mg PO Q8H [facility] Last Admin: 03/17/24 08:02 Dose: 500 mg Documented By: IDALMIS Ondansetron HCl (Ondansetron Hcl 4 Mg/2 Ml Vial) 4 mg IVPUSH Q8H PRN PRN Reason: Nausea and Vomiting Last Admin: 03/16/24 16:32 Dose: 4 mg Documented By: IDALMIS Ropinirole HCl (Ropinirole Hcl 0.5 Mg Tablet) 0.5 mg PO BEDTIME@2200 [facility] Last Admin: 03/16/24 20:18 Dose: 0.5 mg Documented By: BOBBY Sodium Chloride (0.9 % Sodium Chloride Flush 3 Ml Syringe) [facility] Last Admin: 03/17/24 08:02 Dose: 3 ml Documented By: IDALMIS Tacrolimus (Tacrolimus 0.5 Mg Capsule) 0.5 mg PO BID@1200,2200 [facility] Last Admin: 03/16/24 20:18 Dose: 0.5 mg Documented By: BOBBY Venlafaxine HCl (Venlafaxine Hcl 25 Mg Tablet) 25 mg PO DAILY@1200 [facility] Last Admin: 03/16/24 14:57 Dose: 25 mg Documented By: IDALMIS Vitamin D (Cholecalciferol (Vitamin D3) 25 Mcg Tablet) 50 mcg PO DAILY@1200 [facility] Last Admin: 03/16/24 14:58 Dose: 50 mcg Documented By: IDALMIS Labs 03/17/24 07:11 03/17/24 07:11 Labs: Laboratory Results - last 24 hr 03/17/24 07:11 MCV 92.0 MCH 29.5 MCHC 32.1 RDW 15.6 Plt Count 247 MPV 11.0 Absolute Nucleated RBC 0.000 Nucleated RBC % (auto) 0.0 Anion Gap 14 Estim Creat Clear Calc 12.0 Estimated GFR 10 Random Glucose 77 Calcium 7.6 L D Phosphorus 2.2 L PTH Intact 451.8 H Assessment and Plan (1) Diverticulitis: Status: Acute Plan 73 yo F with multiple medical problems presenting less than 24 hours after discharge after treatment for diverticulitis. Repeat CT showing on going diverticulitis with question raised about neoplastic process. Recurrent diverticulitis continue antibotics - transition to oral once tolerating po seen by GI> plan for colonoscopy today, continue clears Analgesia and antiemetics as needed ESRD on TTS dialysis per nephrology CAD/PAF continue baseline meds GERD pepcid COPD at baseline, continue inhalers History of cirrhosis - s/p transplant in 2008 continue anti-rejection meds Hypothyroidism synthroid Full Code DVT ppt with SCD, due to documented allergy with heparin products Quality Stroke Does the patient have a stroke diagnosis?: No VTE Prior VTE?: No VTE Risk Level:: Medical - moderate - high VTE Device Contraindication: N/A - Device Ordered VTE Drug Contraindication: Treatment Not Indicated
--- NOTE | 2024-03-17 08:25 | PM.PNNEP ---
Subjective Subjective Date of Service: 03/17/24 Interval history: 73 y/o female with ESRD on HD ([place], [place], Sat). She is a patient of Dr Umanzor. 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 she has had multiple admissions recently, most recently discharged 02/22 for failure to thrive. she presented 03/11 a.m. with lower abdominal pain, CT suggestive of diverticulitis, being treated wtih IV abx. Nephrology consulted for ESRD and HD management while hospitalized. received HD 03/16 per her normal TTS schedule labs stable she states she feels tired and not sleeping well in hospital- she reports her abdominal pain has improved somewhat though is still significant- plan for sigmoidoscopy today per GI. states her abdominal pain is not worsening/changing during dialysis sessions. Denies other new complaints/concerns/symptoms. Physical Exam Vital Signs: Vital Signs: Last Vital Signs Temp 97.0 F 03/17/24 07:44 Pulse 65 03/17/24 07:44 Resp 14 03/17/24 07:44 BP 146/70 H 03/17/24 07:44 Pulse Ox 100 03/17/24 07:44 O2 Del Method Room Air 03/17/24 07:44 BMI result Body Mass Index 23.2 Const: General: no acute distress, alert and awake Resp: Effort & Inspection: normal respiratory effort and able to speak in complete sentences Auscultation: clear to auscultation bilaterally Cardio: Rate: regular rate Rhythm: regular rhythm Heart sounds: S1 normal heart sound present and S2 normal heart sound present GI: Palpation (GI): Soft to palpation and Tenderness to palpation present (GI) (lower abdominal tenderness to palpation) : General: Yes no CVA tenderness Back/Spine/Pelvis: Back: no CVA tenderness Skin: Lesions: no lesions Rashes: no rashes Extrem: General: No edema Objective Data Labs 03/17/24 07:11 03/17/24 07:11 Labs: Laboratory Results - last 24 hr 03/17/24 07:11 WBC 6.0 RBC 3.49 L Hgb 10.3 L Hct 32.1 L MCV 92.0 MCH 29.5 MCHC 32.1 RDW 15.6 Plt Count 247 MPV 11.0 Absolute Nucleated RBC 0.000 Nucleated RBC % (auto) 0.0 Sodium 133 L Potassium 4.1 Chloride 97 Carbon Dioxide 26 Anion Gap 14 BUN 16 Creatinine 4.26 H* Estim Creat Clear Calc 12.0 Estimated GFR 10 Random Glucose 77 Calcium 7.6 L D Phosphorus 2.2 L PTH Intact 451.8 H Microbiology Microbiology Results: Microbiology 03/14/24 00:34 Blood - Venous Blood Culture - Preliminary No growth after 48 hours. 03/14/24 00:16 Blood - Venous Blood Culture - Preliminary No growth after 48 hours. 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 HD , , [facility] pt had HD yesterday and tolerated well. no uremic symptoms pt appears euvolemic 03/17 H&H 10.3 and 32.1, no indication for procrit at this time potassium normal, not metabolically acidotic at this time calcium mildly low at 7.6 phosphorous 2.2, recommend liberalize diet has left upper extremity AV fistula with +bruit, +thrill oliguric at baseline (small amount every few days per pt) Will continue to follow Discussed with Dr Dennison Time Spent With Patient Time: Total time managing care of this patient today ____ minutes. Progress Note: Quality Stroke Does the patient have a stroke diagnosis?: No
[2024-03-17] MEDS: Folic Acid 1 MG TABLET PO (11:07)
[2024-03-17] MEDS: Venlafaxine HCL 25 MG TABLET PO (11:07)
[2024-03-17] MEDS: Cholecalciferol (Vitamin D3) 25 MCG TABLET 50 MCG PO (11:07)
[2024-03-17] MEDS: Aspirin Enteric Coated 81 MG TABLET.DR PO (11:07)
[2024-03-17] MEDS: allopurinoL 100 MG TABLET PO (11:07)
[2024-03-17] MEDS: Famotidine 20 MG TABLET PO ×2 (11:07→21:48)
[2024-03-17] MEDS: Tacrolimus 0.5 MG CAPSULE PO ×2 (11:07→21:48)
--- NOTE | 2024-03-17 12:42 | P.CONAN_ITS ---
HPI - Anesthesia Eval Consult details Narrative: for flex sig. poss mass. PMFSH Active Problems Active Problems: All Active Problems Diverticulitis (Acute) Nausea & vomiting (Acute) Diverticulitis (Acute) Abdominal pain (Acute) Adult failure to thrive (Acute) Weakness (Acute) Liver transplant recipient (Acute) Adult hypothyroidism (Acute) Chronic renal failure (Acute) Hypothyroidism (Acute) Immunosuppressed status (Acute) Rash (Acute) NSTEMI (non-ST elevated myocardial infarction) (Acute) Unstable angina (Acute) Paroxysmal atrial fibrillation (Acute) Elevated troponin (Acute) Pneumonia (Acute) Acute hyperkalemia (Acute) Metabolic encephalopathy (Acute) S/P TAVR (transcatheter aortic valve replacement) (Acute) Acute UTI (Acute) ESRD (end stage renal disease) on dialysis (Acute) Past Medical History Medical History ESRD (end stage renal disease) on dialysis Congestive heart failure Patient on waiting list for kidney transplant Gout History of transcatheter aortic valve replacement (TAVR) History of blood transfusion GERD (gastroesophageal reflux disease) Anxiety and depression AV fistula Hemodialysis patient COVID-19 vaccine series completed Murmur Hyperkalemia Left inguinal hernia DJD (degenerative joint disease) of thoracic spine Neuropathy End-stage renal disease (ESRD) COPD (chronic obstructive pulmonary disease) Coronary artery disease Bronchitis Asthma Arthritis Anemia Cirrhosis Family History Family history of problems with anesthesia: No Surgical History Surgical History (Updated 03/17/24 @ 12:39 by Patria Krueger RN) H/O thyroidectomy H/O hemorrhoidectomy Hx of spinal surgery H/O heart surgery Hx of colonoscopy History of liver transplant History of surgery on arm History of Problems with Anesthesia: No Social History Social History Household Members: None Housing: Apartment Are you a primary patient care technician instructor to a significant other at home: No Do you presently have visiting nurse or other home services: No Unable to assess alcohol history related to: Unable to respond Alcohol intake: never Comment: pt refused bed alarm Patient Tobacco Use Status: Former Tobacco user Tobacco use type: Cigarette Cigarette Packs Per Day: 2 Cigarettes Per Day: 40.0 Years Smoked: 25 Smoked in Last 30 Days: No e-Cigarette/Vaping Use: Never Used Second Hand Smoke Exposure: No Use of substances other than those prescribed or required for medical reasons: No Currently Displaying Signs/Symptoms of Drug Intoxication Withdrawal: No Have you been hit, kicked, punched, or otherwise hurt by someone within the past year? If so, by whom?: No Do you feel safe in your current relationship?: No Current Relationship Is there a partner from a previous relationship who is making you feel unsafe now?: No Are you made to feel afraid or neglected: No Are you DNR?: No Advance Directives: Yes Advance Directives Information Provided: Yes Advance Directives on File: Yes Advance Directives Date on File: 09/12/10 Do you have a plan to hurt others: No Plan Recently lost weight without trying: Yes How much weight loss: 2-13 pounds Eating poorly because of decreased appetite: Yes Nutrition screen score: 4 Nutrition Risks: No Nutritional Risk Patient : No : No Poor oral hygiene: Yes (all teeth missing) service: No Current occupational status: retired Meds Allergies Allergy/AdvReac Type Severity Reaction Status Date / Time Sulfa (Sulfonamide Allergy Intermediate HIVES Verified 03/13/24 23:30 Antibiotics) Heparin Analogues Allergy Unknown UNKNOWN Verified 03/13/24 23:30 [Heparin Agents] verapamil Allergy Unknown unknown Verified 03/13/24 23:30 Active Medications: Current Medications Acetaminophen (Acetaminophen 325 Mg Tablet) 975 mg PO Q6H PRN PRN Reason: Pain, Mild (Pain Scale 1-3), fever or headache Albuterol Sulfate (Albuterol Sulfate (0.083%) 2.5 Mg/3 Ml Vial.Neb) 2.5 mg INHALE Q6H PRN PRN Reason: Shortness Of Breath Or Wheezing Allopurinol (Allopurinol 100 Mg Tablet) 100 mg PO DAILY@1200 [facility] Last Admin: 03/17/24 11:07 Dose: 100 mg Aspirin (Aspirin Enteric Coated 81 Mg Tablet.) 81 mg PO DAILY@1200 [facility] Last Admin: 03/17/24 11:07 Dose: 81 mg Atorvastatin Calcium (Atorvastatin Calcium 20 Mg Tablet) 20 mg PO BEDTIME [facility] Last Admin: 03/16/24 20:18 Dose: 20 mg Ceftriaxone Sodium (Ceftriaxone Sodium 1 Gm Vial) 1 gm IVPUSH Q24H [facility] Last Admin: 03/17/24 08:02 Dose: 1 gm Famotidine (Famotidine 20 Mg Tablet) 20 mg PO BID@1200,2200 [facility] Last Admin: 03/17/24 11:07 Dose: 20 mg Folic Acid (Folic Acid 1 Mg Tablet) 1 mg PO DAILY@1200 [facility] Last Admin: 03/17/24 11:07 Dose: 1 mg Hydromorphone HCl (Hydromorphone Hcl 0.5 Mg/0.5 Ml Syringe) 1 mg IVPUSH Q4H PRN; Protocol PRN Reason: Pain, Severe (Pain Scale 7-10) Last Admin: 03/17/24 08:34 Dose: 1 mg Hydroxyzine HCl (Hydroxyzine Hcl 25 Mg Tablet) 25 mg PO TID PRN PRN Reason: Itching Last Admin: 03/17/24 10:36 Dose: 25 mg Levothyroxine Sodium (Levothyroxine Sodium 88 Mcg Tablet) 88 mcg PO DAILY@0600 [facility] Last Admin: 03/17/24 05:25 Dose: 88 mcg Metoprolol Tartrate (Metoprolol Tartrate 25 Mg Tablet) 25 mg PO BID@1200,2200 [facility]; Protocol Last Admin: 03/17/24 11:11 Dose: Not Given Metronidazole (Metronidazole 500 Mg Tablet) 500 mg PO Q8H [facility] Last Admin: 03/17/24 08:02 Dose: 500 mg Ondansetron HCl (Ondansetron Hcl 4 Mg/2 Ml Vial) 4 mg IVPUSH Q8H PRN PRN Reason: Nausea and Vomiting Last Admin: 03/16/24 16:32 Dose: 4 mg Ropinirole HCl (Ropinirole Hcl 0.5 Mg Tablet) 0.5 mg PO BEDTIME@2200 [facility] Last Admin: 03/16/24 20:18 Dose: 0.5 mg Sodium Chloride (0.9 % Sodium Chloride Flush 3 Ml Syringe) 3 ml IVFLUSH QSHIFT [facility] Last Admin: 03/17/24 08:02 Dose: 3 ml Tacrolimus (Tacrolimus 0.5 Mg Capsule) 0.5 mg PO BID@1200,2200 [facility] Last Admin: 03/17/24 11:07 Dose: 0.5 mg Venlafaxine HCl (Venlafaxine Hcl 25 Mg Tablet) 25 mg PO DAILY@1200 [facility] Last Admin: 03/17/24 11:07 Dose: 25 mg Vitamin D (Cholecalciferol (Vitamin D3) 25 Mcg Tablet) 50 mcg PO DAILY@1200 [facility] Last Admin: 03/17/24 11:07 Dose: 50 mcg Home Medications ?Medication ?Instructions ?Recorded ?Confirmed ?Last Taken ?Type aspirin 81 mg tablet,delayed 81 mg PO DAILY@1200 01/26/20 03/14/24 03/10/24 History release allopurinol 100 mg tablet 100 mg PO DAILY@1200 03/08/20 03/14/24 03/10/24 History cholecalciferol (vitamin D3) 50 1 tab PO DAILY@1200 08/14/20 03/14/24 03/10/24 History mcg (2,000 unit) tablet hydroxyzine HCl 25 mg tablet 1 tab PO TID PRN Itching 08/14/20 03/14/24 04/04/23 History ropinirole 0.5 mg tablet 1 tab PO BEDTIME@2200 08/14/20 03/14/24 03/10/24 History venlafaxine 25 mg tablet 1 tab PO DAILY@1200 08/14/20 03/14/24 03/10/24 History famotidine 20 mg tablet 1 tab PO BID@1200,2200 01/14/22 03/14/24 03/10/24 History rosuvastatin 5 mg tablet 1 tab PO BEDTIME 01/14/22 03/14/24 03/10/24 History levothyroxine 88 mcg tablet 88 mcg PO DAILY@0600 01/20/23 03/14/24 03/10/24 History albuterol sulfate 90 mcg/actuation 1 puff inhalation Q6H PRN 06/09/23 03/14/24 Unknown History aerosol inhaler (Ventolin HFA) Shortness Of Breath Or Wheezing tacrolimus 0.5 mg capsule, 0.5 mg PO BID@1200,2200 07/15/23 03/14/24 03/10/24 History immediate-release folic acid 1 mg tablet 1 mg PO DAILY@1200 02/04/24 03/14/24 03/10/24 History metoprolol tartrate 25 mg tablet 25 mg PO BID@1200,2200 02/04/24 03/14/2402/28 History albuterol sulfate 2.5 mg/3 mL 2.5 mg inhalation Q6H PRN 03/11/24 03/14/24 Unknown History (0.083 %) solution for nebulization Shortness Of Breath Or Wheezing calcium citrate 400 mg PO BID@1200,2200 03/11/24 03/14/24 03/10/24 History Exam Height,Weight and Vital Signs: Height 5 ft 8 in Weight 69.2 kg Last Vital Signs Temp 97.0 F 03/17/24 07:44 Pulse 65 03/17/24 07:44 Resp 14 03/17/24 07:44 BP 146/70 H 03/17/24 07:44 Pulse Ox 100 03/17/24 07:44 O2 Del Method Room Air 03/17/24 07:44 Pertinent Lab Results Pertinent Lab Results: Laboratory Tests 03/13/24 03/14/24 03/14/24 23:48 00:16 05:42 WBC 7.2 8.1 RBC 3.79 L 3.76 L Hgb 11.3 L 11.2 L Hct 35.5 L 35.6 L MCV 93.7 94.7 MCH 29.8 29.8 MCHC 31.8 31.5 RDW 15.6 15.5 Plt Count 268 305 MPV 10.8 11.4 Immature Gran % (Auto) 0.3 0.5 H Neut % (Auto) 69.9 61.2 Lymph % (Auto) 15.6 L 23.1 [place] % (Auto) 10.2 10.5 Eos % (Auto) 3.6 4.1 H Baso % (Auto) 0.4 0.6 Lymph # (Auto) 1.1 L 1.9 [place] # (Auto) 0.7 0.9 Eos # (Auto) 0.3 0.3 Baso # (Auto) 0.0 0.1 Abs Immat Gran (auto) 0.02 0.04 H Absolute Neuts (auto) 5.0 4.9 Absolute Nucleated RBC 0.000 0.000 Nucleated RBC % (auto) 0.0 0.0 Sodium 139 139 Potassium 4.2 3.6 Chloride 104 104 Carbon Dioxide 29 27 Anion Gap 10 L 12 BUN 17 H 18 H Creatinine 3.33 H 3.54 H Estim Creat Clear Calc 15.4 14.5 Estimated GFR 14 13 Random Glucose 105 94 Lactic Acid 1.3 Calcium 8.0 L D 8.2 L Phosphorus Total Bilirubin 0.3 Direct Bilirubin 0.2 AST 23 ALT 10 Alkaline Phosphatase 79 Total Protein 6.6 Albumin 2.9 L Lipase 42 PTH Intact 03/17/24 07:11 WBC 6.0 RBC 3.49 L Hgb 10.3 L Hct 32.1 L MCV 92.0 MCH 29.5 MCHC 32.1 RDW 15.6 Plt Count 247 MPV 11.0 Immature Gran % (Auto) Neut % (Auto) Lymph % (Auto) [place] % (Auto) Eos % (Auto) Baso % (Auto) Lymph # (Auto) [place] # (Auto) Eos # (Auto) Baso # (Auto) Abs Immat Gran (auto) Absolute Neuts (auto) Absolute Nucleated RBC 0.000 Nucleated RBC % (auto) 0.0 Sodium 133 L Potassium 4.1 Chloride 97 Carbon Dioxide 26 Anion Gap 14 BUN 16 Creatinine 4.26 H* Estim Creat Clear Calc 12.0 Estimated GFR 10 Random Glucose 77 Lactic Acid Calcium 7.6 L D Phosphorus 2.2 L Total Bilirubin Direct Bilirubin AST ALT Alkaline Phosphatase Total Protein Albumin Lipase PTH Intact 451.8 H Airway Mallampati Class: II TM Dist: >3cm Neck ROM: Full Denture: Upper and Lower Heart: ok Lungs: ok Assessment and Plan Assessment Anesthesia Assessment: Anesthesia Plan Discussed and Chart Reviewed Final Anesthetic Review Family History of Problems with Anesthesia: No History of Problems with Anesthesia: No NPO: Yes ASA Class: IV Final Preanesthetic Review: No Changes in Pt Med Stat, Meds/Allgs Chart Reviewed, Consent Obtained/Reviewed and Anes Risks/Benef Reviewed Patient Risk: High Procedure Risk: Low Anesthetic Plan Anesthetic Plan: MAC: and Agree w/ Assess. and Plan Disposition: Standard PACU
--- NOTE | 2024-03-17 12:52 | MHC.CM.PN ---
EMR REVIEWED AND PER MD ROUNDS, PT IS NOT MEDICALLY CLEARED FOR DC. PT WILL HAVE A COLONOSCOPY TODAY. PT CONTINUES TO DECLINE STR AND WOULD LIKE TO RETURN HOME WITH RESUMPTION OF SERVICES VIA [facility] AND [facility]. CM WILL CONTINUE TO FOLLOW FOR ANY CHANGE TO DC PLAN/NEEDS.
--- NOTE | 2024-03-17 12:58 | P.PNGI_ITS ---
Subjective Subjective Date of Service: 03/17/24 Interval History: still has llq pain, but better than on admission, nausea no fever no diarrhea Critical Care Time (minutes): 0 Physical Exam 2 Vital Signs: Vital Signs: Last Vital Signs Temp 97.7 F 03/17/24 12:39 Pulse 55 03/17/24 12:39 Resp 16 03/17/24 12:39 BP 120/54 L 03/17/24 12:39 Pulse Ox 99 03/17/24 12:39 O2 Del Method Room Air 03/17/24 12:39 BMI result Body Mass Index 23.2 EXAM: GENERAL: The patient is frail VITAL SIGNS:see workflow HEENT: Nonicteric sclerae, PERRLA, EOMI. Oropharynx clear. Moist mucous membranes. Conjunctivae appear well perfused. No thyroid mass. CHEST: Chest wall is nontender. HEART: Regular rate and rhythm without murmurs. LUNGS: Clear to auscultation bilaterally. ABDOMEN: Soft, positive bowel sounds, tender LLQ, no organomegaly.no flank tenderness SKIN: No rash, no excessive bruising, petechiae, or purpura. NEUROLOGIC: Cranial nerves II-XII intact without motor/sensory deficit. Psych: normal affect Objective Data Labs 03/17/24 07:11 03/17/24 07:11 Labs: Laboratory Results - last 24 hr 03/17/24 07:11 WBC 6.0 RBC 3.49 L Hgb 10.3 L Hct 32.1 L MCV 92.0 MCH 29.5 MCHC 32.1 RDW 15.6 Plt Count 247 MPV 11.0 Absolute Nucleated RBC 0.000 Nucleated RBC % (auto) 0.0 Sodium 133 L Potassium 4.1 Chloride 97 Carbon Dioxide 26 Anion Gap 14 BUN 16 Creatinine 4.26 H* Estim Creat Clear Calc 12.0 Estimated GFR 10 Random Glucose 77 Calcium 7.6 L D Phosphorus 2.2 L PTH Intact 451.8 H Microbiology Microbiology Results: Microbiology 03/14/24 00:34 Blood - Venous Blood Culture - Preliminary No growth after 48 hours. 03/14/24 00:16 Blood - Venous Blood Culture - Preliminary No growth after 48 hours. Procedures Date of Service Date of Service: 03/17/24 Progress Note: A&P Assessment and plan (1) Diverticulitis: Status: Acute Plan 1/Recurrent diverticulitis, concern for underlying mass on imaging PLAN: 1/ Sigmoidoscopy today for assessment. 2/ cont AB x for the moment Time Spent With Patient Time: Total time managing care of this patient today ____ minutes. Quality Stroke Does the patient have a stroke diagnosis?: No VTE Prior VTE?: No VTE Risk Level:: Medical - moderate - high VTE Device Contraindication: N/A - Device Ordered VTE Drug Contraindication: Treatment Not Indicated
--- NOTE | 2024-03-17 13:04 | MHC.SHP ---
Pre-Procedural Eval Section A - 24 Hr Update-Section A only Date of Service: 03/17/24 The patient is an INPATIENT: Yes The patient has been examined within 24 hours of the surgical procedure. The History & Physical has been completed within 30 days and I have reviewed it.: Yes Section B - Complete if H&P > 30 days Chief Complaint: Recurrent Diverticulitis Allergies: Allergies Allergy/AdvReac Type Severity Reaction Status Date / Time Sulfa (Sulfonamide Allergy Intermediate HIVES Verified 03/13/24 23:30 Antibiotics) Heparin Analogues Allergy Unknown UNKNOWN Verified 03/13/24 23:30 [Heparin Agents] verapamil Allergy Unknown unknown Verified 03/13/24 23:30 Plan Diagnosis/Plan: Unchanged I have reviewed the history and physical and performed a pertinent physical examination on my patient. No changes have occurred unless specified. Time Spent With Patient Time: Total time managing care of this patient today ____ minutes.
--- NOTE | 2024-03-17 13:23 | W.PM.OPN ---
Operative Note Operative Note Date of Service: 03/17/24 Narrative: Procedure Description: sigmoidoscopy Indication: ?sigmoid mass Anesthesia: MAC Sigmoidoscopy Instrument: Upper endoscope Colonoscopy Monitoring: Vital signs and clinical assessment, continuous EKG monitoring, Pulse oximetry, Carbon Dioxide monitoring and blood pressure monitoring were done throughout the procedure. Procedure: The patient was placed in the left lateral decubitis position and pre-procedure medications were administered. After a digital rectal examination of the ano-rectum, the video colonoscope was inserted into the rectum and advanced through the colon to the sigmoid colon The scope was slowly withdrawn in a retrograde panoramic fashion and the colon mucosa was carefully examined . Findings and interventions are described below. Procedure Difficulty: moderate Findings: Sigmoid Colon: diverticulsois, at 25 cm from anal verge there was edema and swelling with pale mucosa, I was unable to bypass this area with the scope Rectum: internal hemorrhoids Anorectum - normal Colon preparation: fair Impression and Post Procedure Diagnosis: sigmoid diverticulosis area of edema and stricture possibly from inflammation - Plan: recommend ba enema for further evaluation Above findings were reviewed with the patient and relevant handouts were provided if indicated.
[2024-03-17] MEDS: Atorvastatin Calcium 20 MG TABLET PO (21:48)
[2024-03-17] MEDS: Metoprolol Tartrate 25 MG TABLET PO (21:48)
[2024-03-17] MEDS: rOPINIRole HCL 0.5 MG TABLET PO (21:48)
[2024-03-17] MEDS: Hydrocortisone 1 % Ointment 28.35 GM TUBE 1 APPL TOPICAL (21:49)
[2024-03-18] MEDS: metroNIDAZOLE 500 MG TABLET PO ×3 (00:01→16:58)
[2024-03-18] MEDS: HYDROmorphone HCl 0.5 MG/0.5 ML SYRINGE 1 MG IVPUSH ×2 (00:04→12:43)
[2024-03-18 03:18] VITALS: BP 119/76; PULSE 67; RESP 18; TEMP 36.1; O2SAT 99
[2024-03-18] MEDS: Levothyroxine Sodium 88 MCG TABLET PO (05:53)
[2024-03-18 07:27] VITALS: BP 136/63; PULSE 59; RESP 14; TEMP 36.9; O2SAT 97
[2024-03-18 09:27] LABS: Blood Urea Nitrogen 18 mg/dL (9-16); Calcium 7.7 mg/dL (8.4-10.2); Creatinine Clr Calc Pharmacy 12.9; Estimated Glomerular Filt Rate 11; Glucose Random 84 mg/dL (60-115)
--- NOTE | 2024-03-18 09:30 | W.PM.DNNEP ---
Subjective Subjective Date of Service: 03/18/24 This patient was seen during dialysis. Interval history: 73 y/o female with ESRD on HD (, Fri). She is a patient of Dr Umanzor. 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 she has had multiple admissions recently, most recently discharged 02/22 for failure to thrive. she presented 03/11 a.m. with lower abdominal pain, CT suggestive of diverticulitis, being treated wtih IV abx. Had sigmoidoscopy 03/17 due to recurrent abdominal pain, plan for barium enema per GI for further investigation. Nephrology consulted for ESRD and HD management while hospitalized. receiving HD currently per her normal TTS schedule labs stable she states she feels tired and not sleeping well in hospital- she reports her abdominal pain remains the same, states moderate in severity. states her abdominal pain is not worsening/changing during dialysis sessions. Denies other new complaints/concerns/symptoms. Physical Exam Vital Signs: Vital Signs: Last Vital Signs Temp 98.5 F 03/18/24 07:27 Pulse 59 03/18/24 07:27 Resp 14 03/18/24 07:27 BP 136/63 03/18/24 07:27 Pulse Ox 97 03/18/24 07:27 O2 Del Method Room Air 03/18/24 07:27 BMI result Body Mass Index 23.2 Const: General: no acute distress, alert and awake Resp: Effort & Inspection: normal respiratory effort and able to speak in complete sentences Auscultation: clear to auscultation bilaterally Cardio: Rate: regular rate Rhythm: regular rhythm Heart sounds: S1 normal heart sound present and S2 normal heart sound present GI: Palpation (GI): Soft to palpation and Tenderness to palpation present (GI) (lower abdominal tenderness to palpation) : General: Yes no CVA tenderness Back/Spine/Pelvis: Back: no CVA tenderness Skin: Lesions: no lesions Rashes: no rashes Extrem: General: No edema Assessment & Plan Assessment and plan (1) ESRD (end stage renal disease) on dialysis: Status: Acute (2) Abdominal pain: Status: Acute Plan 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 HD Clarissa Villasenor, Fri schedule as outpatient ([facility])- receiving HD this a.m. no uremic symptoms pt appears euvolemic 03/17 H&H 10.3 and 32.1, no indication for procrit at this time potassium normal, not metabolically acidotic at this time calcium mildly low at 7.7, PTH 451, will continue to monitor periodically phosphorous 2.2, recommend liberalize diet has left upper extremity AV fistula with +bruit, +thrill oliguric at baseline (small amount every few days per pt) Will continue to follow Discussed with Dr Dennison Time Spent With Patient Time: Total time managing care of this patient today ____ minutes. Procedures Date of Service Date of Service: 03/18/24
[2024-03-18 09:41] LABS: Anion Gap 14 (12-20); Carbon Dioxide 23 mmol/L (22-29); Chloride 100 mmol/L (96-108); Potassium 3.2 mmol/L (3.3-5.1); Sodium 134 mmol/L (135-145)
[2024-03-18 12:38] VITALS: BP 106/56; PULSE 62; RESP 16; TEMP 36.5; O2SAT 98
--- NOTE | 2024-03-18 12:57 | MHC.CM.PN ---
THIS CM RECEIVED WORD FROM DIALYSIS THAT HOLIDAY SCHDULE WILL BE IN EFFECT FOR THE NEXT 2 WEEKS, PT WILL ATTEND HD --FRI X 2 WKS STARTING 03/22/24. TRANSPORTATION HAS BEEN ARRANGED BY DIALYSIS TO REFLECT THIS. PT MADE AWARE. CONTACT AT HD [facility] BROCK ([phone])
[2024-03-18] MEDS: Cholecalciferol (Vitamin D3) 25 MCG TABLET 50 MCG PO (13:11)
[2024-03-18] MEDS: Folic Acid 1 MG TABLET PO (13:11)
[2024-03-18] MEDS: Famotidine 20 MG TABLET PO ×2 (13:12→21:28)
[2024-03-18] MEDS: Metoprolol Tartrate 25 MG TABLET PO ×2 (13:12→21:28)
[2024-03-18] MEDS: Aspirin Enteric Coated 81 MG TABLET.DR PO (13:12)
[2024-03-18] MEDS: allopurinoL 100 MG TABLET PO (13:12)
[2024-03-18] MEDS: Venlafaxine HCL 25 MG TABLET PO (13:12)
[2024-03-18] MEDS: Tacrolimus 0.5 MG CAPSULE PO ×2 (13:12→21:28)
[2024-03-18] MEDS: cefTRIAXone sodium 1 GM VIAL IVPUSH (13:22)
--- NOTE | 2024-03-18 13:47 | HO.POSTANES ---
Post Anesthesia Evaluation Post Anesthesia Evaluation Date of Service: 03/18/24 Vital Signs: Vital Signs Temp Pulse Resp BP Pulse Ox O2 Del Method 03/18/24 12:38 97.7 F 62 16 106/56 L 98 Room Air 03/18/24 07:27 98.5 F 59 14 136/63 97 Room Air 03/18/24 03:18 96.9 F 67 18 119/76 99 Room Air Anesthesia: Monitored Mental Status: Awake Pain Control: Satisfactory Nausea/Vomiting: None Hydration: Adequate Anesthesia-Related Issues: No Anes. Related Issues
[2024-03-18 16:00] VITALS: BP 89/54; PULSE 52; RESP 16; TEMP 37.2; O2SAT 96
[2024-03-18] MEDS: 0.9 % Sodium Chloride Flush 3 ML SYRINGE IVFLUSH ×2 (16:59→21:29)
--- NOTE | 2024-03-18 17:15 | P.PNIM_ITS ---
Subjective Subjective Date of Service: 03/18/24 Interval History: seen and examined this morning follow up for diverticulitis mild lower abdominal pain, not eating much Review of Systems Review of Systems: Yes all other systems are reviewed and are negative Constitutional Constitutional: Denies chills and Denies fever(s) Physical Exam 2 Vital Signs: Vital Signs: Last Vital Signs Temp 98.9 F 03/18/24 16:00 Pulse 52 03/18/24 16:00 Resp 16 03/18/24 16:00 BP 89/54 L 03/18/24 16:00 Pulse Ox 96 03/18/24 16:00 O2 Del Method Room Air 03/18/24 16:00 BMI result Body Mass Index 23.2 Const: General: cooperative, comfortable, no acute distress, alert and awake Nutritional Appearance: average body habitus Orientation/consciousness: p atient oriented x3 Resp: Effort & Inspection: normal respiratory effort, able to speak in complete sentences, no respiratory distress and no use of accessory muscles Cardio: Rate: regular rate GI: Inspection: No distended Palpation (GI): Soft to palpation and nontender Neuro: General: patient oriented x3, moves all extremities and CN's II-XI intact bilaterally Extrem: General: Yes no pedal edema Objective Data Active Medications Acetaminophen (Acetaminophen 325 Mg Tablet) 975 mg PO Q6H PRN PRN Reason: Pain, Mild (Pain Scale 1-3), fever or headache Albuterol Sulfate (Albuterol Sulfate (0.083%) 2.5 Mg/3 Ml Vial.Neb) 2.5 mg INHALE Q6H PRN PRN Reason: Shortness Of Breath Or Wheezing Allopurinol (Allopurinol 100 Mg Tablet) 100 mg PO DAILY@1200 [facility] Last Admin: 03/18/24 13:12 Dose: 100 mg Documented By: TEGAN Aspirin (Aspirin Enteric Coated 81 Mg Tablet.) 81 mg PO DAILY@1200 [facility] Last Admin: 03/18/24 13:12 Dose: 81 mg Documented By: TEGAN Atorvastatin Calcium (Atorvastatin Calcium 20 Mg Tablet) 20 mg PO BEDTIME [facility] Last Admin: 03/17/24 21:48 Dose: 20 mg Documented By: BOBBY Ceftriaxone Sodium (Ceftriaxone Sodium 1 Gm Vial) 1 gm IVPUSH Q24H [facility] Last Admin: 03/18/24 13:22 Dose: 1 gm Documented By: TEGAN Famotidine (Famotidine 20 Mg Tablet) 20 mg PO BID@1200,2200 [facility] Last Admin: 03/18/24 13:12 Dose: 20 mg Documented By: TEGAN Folic Acid (Folic Acid 1 Mg Tablet) 1 mg PO DAILY@1200 [facility] Last Admin: 03/18/24 13:11 Dose: 1 mg Documented By: TEGAN Hydrocortisone (Hydrocortisone 1 % Ointment 28.35 Gm Tube) 1 appl TOPICAL BID PRN; Protocol PRN Reason: Itching Last Admin: 03/17/24 21:49 Dose: 1 appl Documented By: BOBBY Hydromorphone HCl (Hydromorphone Hcl 0.5 Mg/0.5 Ml Syringe) 1 mg IVPUSH Q4H PRN; Protocol PRN Reason: Pain, Severe (Pain Scale 7-10) Last Admin: 03/18/24 12:43 Dose: 1 mg Documented By: BRENDAN Hydroxyzine HCl (Hydroxyzine Hcl 25 Mg Tablet) 25 mg PO TID PRN PRN Reason: Itching Last Admin: 03/17/24 19:08 Dose: 25 mg Documented By: BOBBY Levothyroxine Sodium (Levothyroxine Sodium 88 Mcg Tablet) 88 mcg PO DAILY@0600 [facility] Last Admin: 03/18/24 05:53 Dose: 88 mcg Documented By: BOBBY Metoprolol Tartrate (Metoprolol Tartrate 25 Mg Tablet) 25 mg PO BID@1200,2200 [facility]; Protocol Last Admin: 03/18/24 13:12 Dose: 25 mg Documented By: TEGAN Metronidazole (Metronidazole 500 Mg Tablet) 500 mg PO Q8H [facility] Last Admin: 03/18/24 16:58 Dose: 500 mg Documented By: TEGAN Naloxone HCl (Naloxone Hcl 0.4 Mg/Ml Vial) 0.04 mg IVPUSH Q5M PRN PRN Reason: Excessive sedation or RR < 8 Ondansetron HCl (Ondansetron Hcl 4 Mg/2 Ml Vial) 4 mg IVPUSH Q8H PRN PRN Reason: Nausea and Vomiting Last Admin: 03/16/24 16:32 Dose: 4 mg Documented By: IDALMIS Ropinirole HCl (Ropinirole Hcl 0.5 Mg Tablet) 0.5 mg PO BEDTIME@2200 [facility] Last Admin: 03/17/24 21:48 Dose: 0.5 mg Documented By: BOBBY Sodium Chloride (0.9 % Sodium Chloride Flush 3 Ml Syringe) 3 ml IVFLUSH QSHIFT [facility] Last Admin: 03/18/24 16:59 Dose: 3 ml Documented By: TEGAN Tacrolimus (Tacrolimus 0.5 Mg Capsule) 0.5 mg PO BID@1200,2200 [facility] Last Admin: 03/18/24 13:12 Dose: 0.5 mg Documented By: TEGAN Venlafaxine HCl (Venlafaxine Hcl 25 Mg Tablet) 25 mg PO DAILY@1200 [facility] Last Admin: 03/18/24 13:12 Dose: 25 mg Documented By: TEGAN Vitamin D (Cholecalciferol (Vitamin D3) 25 Mcg Tablet) 50 mcg PO DAILY@1200 [facility] Last Admin: 03/18/24 13:11 Dose: 50 mcg Documented By: TEGAN Labs 03/17/24 07:11 03/18/24 08:58 Labs: Laboratory Results - last 24 hr 03/18/24 08:58 Anion Gap 14 Estim Creat Clear Calc 12.9 Estimated GFR 11 Random Glucose 84 Calcium 7.7 L Assessment and Plan (1) Diverticulitis: Status: Acute Plan 73 yo F with multiple medical problems presenting less than 24 hours after discharge after treatment for diverticulitis. Repeat CT showing on going diverticulitis with question raised about neoplastic process. Recurrent diverticulitis continue antibotics - transition to oral once tolerating po seen by GI> attempted sigmoidoscopy 03/17 but areas of edema and swelling and unable to pass the scope. IR didn't feel barium enema would be beneficial. per GI conservative management and rec repeat scope in 6 weeks blood cultures negative supportive care diet advanced ESRD on TTS dialysis per nephrology last HD 03/18 nephrology following CAD/PAF continue baseline meds GERD pepcid COPD at baseline, continue inhalers History of cirrhosis - s/p transplant in 2008 continue anti-rejection meds Hypothyroidism synthroid Full Code DVT ppt with SCD, due to documented allergy with heparin products dispo - refuses placement, likely home in am Quality Stroke Does the patient have a stroke diagnosis?: No VTE Prior VTE?: No VTE Risk Level:: Medical - moderate - high VTE Device Contraindication: N/A - Device Ordered VTE Drug Contraindication: Treatment Not Indicated
[2024-03-18] MEDS: 0.9 % Sodium Chloride 250 ML 500 ML IV (17:55)
[2024-03-18 19:06] VITALS: BP 99/52; PULSE 62; RESP 18; TEMP 36.6; O2SAT 99
[2024-03-18] MEDS: Atorvastatin Calcium 20 MG TABLET PO (21:28)
[2024-03-18] MEDS: rOPINIRole HCL 0.5 MG TABLET PO (21:28)
[2024-03-19] MEDS: HYDROmorphone HCl 1 MG/ML SYRINGE IVPUSH (01:01)
[2024-03-19] MEDS: metroNIDAZOLE 500 MG TABLET PO ×3 (01:01→16:42)
--- NOTE | 2024-03-19 02:05 | PC.NURSE ---
Patient was uncooperative, annoyed, and demanding during interactions. She refused to participate in some assessments, saying why are you asking these stupid questions? and I'm going to do what I want to do. She also demanded not to wake her up for her 0100 antibiotics and refused to take one, claiming it is partially because staff was not addressing her pain properly when she clearly had been getting Dilaudid (The med was D/C'd during the day). After speaking to the evening provider, one time dose of 1mg Dilaudid was ordered. When the antibiotic and pain medication was brought in, the patient said, You should be shot for waking people up, and refused to get up. Once the staff walked out of the room, patient then pressed the patient hernandez and said, I'll take the damn pill. Patient demanded that she takes the pill with apple sauce, and when questioned, since she had no difficulty taking pills with fluid with no issue, she stated, what part of apple sauce did you not understand? I take it with apple sauce! Once the apple sauce was delivered to the patient, she sit herself up, took the pill, and went back to bed. When informed of her 0600 medication, she said, Just leave me alone. If I'm asleep, don't wake me up.
[2024-03-19 03:20] VITALS: BP 101/54; PULSE 61; RESP 16; TEMP 36.6; O2SAT 97
[2024-03-19] MEDS: hydrOXYzine HCL 25 MG TABLET PO (03:29)
[2024-03-19] MEDS: Levothyroxine Sodium 88 MCG TABLET PO (06:11)
--- NOTE | 2024-03-19 06:22 | PC.NURSE ---
Addendum entered by Diane Neal RN 03/19/24 06:40: Dr. Vasquez ordered stat head CT. Original Note: pt c/o a stiff neck and double vision. tiger text to Dr. Vasquez, who came to see her at the bedside. she then explained that she had laser surgery on her eyes a couple months ago and that this has been happening periodically. will continue to monitor.
--- NOTE | 2024-03-19 06:27 | PM.EVENT ---
Event Note Date of Service: 03/19/24 Event Note: Patient reporting double vision. Patient states it has been going on and off for 2 months. Patient had laser surgery 2 months ago. Double vision is only present when both eyes are open and resolves when either eye is closed indicating binocular diplopia. No facial droop, focal extremity weakness. Will obtain CT head, get Neurology evaluation and obtain TSH Time Spent With Patient Time: Total time managing care of this patient today ____ minutes.
[2024-03-19 07:50] VITALS: BP 112/57; PULSE 54; RESP 18; TEMP 37; O2SAT 98
[2024-03-19] MEDS: cefTRIAXone sodium 1 GM VIAL IVPUSH (08:10)
[2024-03-19] MEDS: 0.9 % Sodium Chloride Flush 3 ML SYRINGE IVFLUSH (08:10)
[2024-03-19 08:28] LABS: Hematocrit 34.3 % (37.0-47.0); Hemoglobin 11.2 g/dl (12.0-16.0); Mean Corpuscular HGB Conc 32.7 g/dl (31.0-35.0); Mean Corpuscular Hemoglobin 30.2 pg (27.0-33.0); Mean Corpuscular Volume 92.5 fL (80.0-98.0); Mean Platelet Volume 10.7 fL (9.4-12.3); Platelet Count 242 X10*3/uL (160-400); Red Blood Count 3.71 X10*6/uL (4.20-5.50); Red Cell Distribution Width 15.8 % (11.0-16.0)
[2024-03-19 08:33] LABS: Thyroid Stimulating Hormone 0.12 uIU/mL (0.32-4.0)
--- NOTE | 2024-03-19 08:40 | P.PNNP_ITS ---
Subjective Subjective Date of Service: 03/19/24 Interval history: 73 y/o female with ESRD on HD ([place], [place], Sat). She is a patient of Dr Umanzor. 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 she has had multiple admissions recently, most recently discharged 02/22 for failure to thrive. she presented 03/11 a.m. with lower abdominal pain, CT suggestive of diverticulitis, being treated wtih IV abx. Nephrology consulted for ESRD and HD management while hospitalized. received HD 03/16 per her normal TTS schedule labs stable she states she feels tired and not sleeping well in hospital- she reports her abdominal pain has improved somewhat though is still significant- plan for sigmoidoscopy today per GI. states her abdominal pain is not worsening/changing during dialysis sessions. Denies other new complaints/concerns/symptoms. Physical Exam 2 Vital Signs: Vital Signs: Last Vital Signs Temp 98.6 F 03/19/24 07:50 Pulse 54 03/19/24 07:50 Resp 18 03/19/24 07:50 BP 112/57 L 03/19/24 07:50 Pulse Ox 98 03/19/24 07:50 O2 Del Method Room Air 03/19/24 07:50 BMI result Body Mass Index 23.2 Const: General: no acute distress, alert and awake Resp: Effort & Inspection: normal respiratory effort and able to speak in complete sentences Auscultation: clear to auscultation bilaterally Cardio: Rate: regular rate Rhythm: regular rhythm Heart sounds: S1 normal heart sound present and S2 normal heart sound present GI: Palpation (GI): Soft to palpation and Tenderness to palpation present (GI) (lower abdominal tenderness to palpation) : General: Yes no CVA tenderness Back/Spine/Pelvis: Back: no CVA tenderness Skin: Lesions: no lesions Rashes: no rashes Extrem: General: No edema Objective Data Labs 03/19/24 08:22 03/19/24 08:22 Labs: Laboratory Results - last 24 hr 03/18/24 03/19/24 03/19/24 08:58 07:23 08:22 WBC 7.0 RBC 3.71 L Hgb 11.2 L Hct 34.3 L MCV 92.5 MCH 30.2 MCHC 32.7 RDW 15.8 Plt Count 242 MPV 10.7 Absolute Nucleated RBC 0.000 Nucleated RBC % (auto) 0.0 Sodium 134 L Potassium 3.2 L D Chloride 100 Carbon Dioxide 23 Anion Gap 14 BUN 18 H Creatinine 3.97 H Estim Creat Clear Calc 12.9 Estimated GFR 11 Random Glucose 84 Calcium 7.7 L TSH 0.12 L Microbiology Microbiology Results: Microbiology 03/14/24 00:34 Blood - Venous Blood Culture - Final No growth after 5 days. 03/14/24 00:16 Blood - Venous Blood Culture - Final No growth after 5 days. 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 HD , , [facility] last session yesterday 03/18. no uremic symptoms pt appears euvolemic 03/17 H&H 11.2 and 34.3, no indication for procrit at this time potassium normal at 4.1, mild metabolic acidosis with serum bicarb 20 calcium mildly low at 8.3, PTH 451, will continue to monitor periodically phosphorous 2.2, recommend liberalize diet has left upper extremity AV fistula with +bruit, +thrill oliguric at baseline (small amount every few days per pt) Will continue to follow Discussed with Dr Dennison Time Spent With Patient Time: Total time managing care of this patient today ____ minutes. Progress Note: Quality Stroke Does the patient have a stroke diagnosis?: No
[2024-03-19 09:29] LABS: Anion Gap 16 (12-20); Blood Urea Nitrogen 15 mg/dL (9-16); Calcium 8.3 mg/dL (8.4-10.2); Carbon Dioxide 20 mmol/L (22-29); Chloride 103 mmol/L (96-108); Creatinine Clr Calc Pharmacy 12.8; Estimated Glomerular Filt Rate 11; Glucose Random 82 mg/dL (60-115); Potassium 4.1 mmol/L (3.3-5.1); Sodium 135 mmol/L (135-145)
--- NOTE | 2024-03-19 09:56 | P.DS_ITS ---
DS: Providers Provider Date of Service: 03/19/24 Date of admission: 03/14/24 02:18 Date of discharge: 03/19/24 Primary care physician: Vanessa Hu MD Consults: 03/14/24 10:06 Consult to Wound Care Routine Reason for consultation: chronic 2 open wounds upper mid abdomen and LUQ 03/16/24 07:41 Consult to Gastroenterology Routine Consulting Provider: [facility] Reason for consultation: recurrent diverticulitis 03/19/24 06:29 Consult to Neurology Routine Consulting Provider: [facility] Reason for consultation: Binocular diplopia DS: Diagnosis Discharge Diagnosis (1) ESRD (end stage renal disease) on dialysis: Status: Inactive (2) Abdominal pain: Status: Resolved DS: Summary Hospital Course Hospital Course: Admission Chief Complaint: Abdominal pain Guadalupe Kay is a 73 years old woman with past medical history significant for ESRD on HD, cirrhosis status post liver transplant, paroxysmal AFib, COPD -no home O2, GERD, CAD and hypothyroidism presents to the emergency department complaining of severe LLQ pain that started yesterday around 1:30 PM. She was discharged from the hospital yesterday with diagnosis of diverticulitis. At the time she discharge she was free of abdominal pain. She has not eating to date due to poor appetite. She also reported nausea,and diarrhea x2. Denies fever or chills. She mentioned that she is not interested in having colonoscopy as she recently had once. Denied chest pain, palpitations, dizziness or shortness on breath. In the ED, she was found to have normal vital signs. Blood workup showed no leukocytosis or lactic acidosis. Hemoglobin is 11.3 which is her baseline. There are no electrolyte imbalances. BUN 17 and creatinine is 3.33, much better than prior. LFTs and lipase are normal. Abdomen pelvis CT scan showed finding consistent with moderate sigmoid diverticulosis and suspicious for uncomplicated diverticulitis, findings could be alternately represents sigmoid neoplasm with mild adjacent inflammatory changes. ED tx: NS 1 L bolus, morphine 4 mg IV, Zofran 4 mg IV, Flagyl 500 mg IV, Lev aquin 500 mg IV Hospital course: The patient was admitted for management of recurrent diverticulitis and was treated with IV antibiotics. She was seen by GI, and an attempt was made to perform a sigmoidoscopy on 03/17. However, due to areas of edema and swelling, the scope could not be passed. IR did not feel that a barium enema would be beneficial. GI recommends conservative management and a repeat sigmoidoscopy in 6 weeks. She will be discharged with oral antibiotics to complete a 10-day course. She is tolerating a regular diet. Double Vision: The patient states it has been occurring on and off for 2 months. She had laser surgery 2 months ago. The double vision is only present when both eyes are open and resolves when either eye is closed, indicating binocular diplopia. No facial droop or focal extremity weakness is noted. A CT head will be obtained, Neurology will be consulted, and TSH levels will be checked. ESRD on TTS: -Dialysis per nephrology. -Last HD: 03/18. -Nephrology is following. CAD/PAF: -Continue baseline medications. GERD: -Pepcid. COPD: -At baseline, continue inhalers. History of Cirrhosis - s/p Transplant in 2008: -Continue anti-rejection medications. Hypothyroidism: -Synthroid. Time Attestation Discharge Coordination Time (in mins): 45 Quality: Safe Use of Opioids Does Pt have an Active Cancer Diagnosis on the Problem List?: No Quality: Stroke Does the patient have a stroke diagnosis?: No Physical Exam Vital Signs: Vital Signs: Last Vital Signs Temp 98.6 F 03/19/24 07:50 Pulse 54 03/19/24 07:50 Resp 18 03/19/24 07:50 BP 112/57 L 03/19/24 07:50 Pulse Ox 98 03/19/24 07:50 O2 Del Method Room Air 03/19/24 07:50 BMI result Body Mass Index 23.2 DS: Data Data Completed and Pending Completed studies during hospitalization [Text1]: Procedures Performance of Urinary Filtration, Intermittent, Less than 6 Hours Per Day (02/20/24) Supplement Left Inguinal Region with Synthetic Substitute, Open Approach (08/14/20) Labs on day of discharge: Laboratory Results - last 24 hr 03/19/24 03/19/24 07:23 08:22 WBC 7.0 RBC 3.71 L Hgb 11.2 L Hct 34.3 L MCV 92.5 MCH 30.2 MCHC 32.7 RDW 15.8 Plt Count 242 MPV 10.7 Absolute Nucleated RBC 0.000 Nucleated RBC % (auto) 0.0 Sodium 135 Potassium 4.1 D Chloride 103 Carbon Dioxide 20 L Anion Gap 16 BUN 15 Creatinine 4.02 H* Estim Creat Clear Calc 12.8 Estimated GFR 11 Random Glucose 82 Calcium 8.3 L D TSH 0.12 L Discharge Plan Discharge Anticipated Discharge Date/Time: 03/19/24 16:02 Patient Disposition: Home Health Service Discharge Diagnosis: Acute recurrent diverticulitis Referrals: [facility] [Outside] - 3-5 Days (RESUMPTION OF HOME CARE SERVICES: A NURSE WILL CALL YOU TO SET UP RESUMPTION VISIT) Vanessa Hu MD [Primary Care Provider] - 1 Week Jim Vazquez MD [Physician] - 1 Week (monocular diplopia) Discharge Medications: New amoxicillin-pot clavulanate [Augmentin] 500-125 mg tablet 1 tab PO BID Qty: 10 0RF metronidazole 500 mg Tablet 500 mg PO Q8H Qty: 15 0RF Continued venlafaxine 25 mg tablet 1 tab PO DAILY@1200 ropinirole 0.5 mg tablet 1 tab PO BEDTIME@2200 hydroxyzine HCl 25 mg tablet 1 tab PO TID PRN (Reason: Itching) cholecalciferol (vitamin D3) 50 mcg (2,000 unit) tablet 1 tab PO DAILY@1200 allopurinol 100 mg tablet 100 mg PO DAILY@1200 famotidine 20 mg tablet 1 tab PO BID@1200,2200 rosuvastatin 5 mg tablet 1 tab PO BEDTIME albuterol sulfate [Ventolin HFA] 90 mcg/actuation HFA aerosol inhaler 1 puff INHALATION Q6H PRN (Reason: Shortness Of Breath Or Wheezing) folic acid 1 mg tablet 1 mg PO DAILY@1200 metoprolol tartrate 25 mg tablet 25 mg PO BID@1200,2200 Protocol: Hold for SBP/HR < HOLD for SBP < : 90 HOLD for HR < : 60 levothyroxine 88 mcg tablet 88 mcg PO DAILY@0600 tacrolimus 0.5 mg capsule 0.5 mg PO BID@1200,2200 albuterol sulfate 2.5 mg /3 mL (0.083 %) solution for nebulization 2.5 mg inhalation Q6H PRN (Reason: Shortness Of Breath Or Wheezing) calcium citrate 200 mg (950 mg) tablet 400 mg PO BID@1200,2200 metronidazole 500 mg tablet 500 mg PO Q8H Qty: 15 0RF Rx Instructions: END DATE: 03/16/24 aspirin 81 mg tablet,delayed release (DR/EC) 81 mg PO DAILY@1200 Discontinued cefuroxime axetil 500 mg tablet 500 mg PO DAILY Qty: 5 0RF Rx Instructions: END DATE: 03/16/24 Discharge Orders: Discharge Order (Routine); Ordered 03/19/24 Ordered By: Juancho Henriquez Diet: Advance to usual diet Activity on Discharge: As tolerated Stand Alone Forms: Patient Portal Discharge page Print Language: [place] Islander Care Plan Goals: recovery from diverticulitis Health Concerns: recurrent diverticulitis Plan of Treatment: take augmentin and flagyl as prescribed follow up with Dialysis as usual follow up with your doctor in a week follow up with Neurologist about double vision Assessment: see above Discharge Date/Time: 03/19/24 20:36
--- NOTE | 2024-03-19 10:33 | HO.PM.IMPN ---
Subjective Subjective Date of Service: 03/19/24 Interval History: pt reported double vision overnight and reportedly has been intermittent for 2 monts since a laser surgery, ct show no acute finding low bp from yesterday resolved. Physical Exam Vital Signs: Vital Signs: Last Vital Signs Temp 98.6 F 03/19/24 07:50 Pulse 54 03/19/24 07:50 Resp 18 03/19/24 07:50 BP 112/57 L 03/19/24 07:50 Pulse Ox 98 03/19/24 07:50 O2 Del Method Room Air 03/19/24 07:50 BMI result Body Mass Index 23.2 General: AO X 3, no acute distress Heent: no double vision at the time of this exam Resp: CTA bilateral CVS: S1,S2,RRR GI: +BS, NT, no distention Skin: No rash Neuro: motor grossly intact Psych: appropriate affect Objective Data Active Medications Acetaminophen (Acetaminophen 325 Mg Tablet) 975 mg PO Q6H PRN PRN Reason: Pain, Mild (Pain Scale 1-3), fever or headache Albuterol Sulfate (Albuterol Sulfate (0.083%) 2.5 Mg/3 Ml Vial.Neb) 2.5 mg INHALE Q6H PRN PRN Reason: Shortness Of Breath Or Wheezing Allopurinol (Allopurinol 100 Mg Tablet) 100 mg PO DAILY@1200 [facility] Last Admin: 03/18/24 13:12 Dose: 100 mg Documented By: TEGAN Aspirin (Aspirin Enteric Coated 81 Mg Tablet.) 81 mg PO DAILY@1200 [facility] Last Admin: 03/18/24 13:12 Dose: 81 mg Documented By: TEGAN Atorvastatin Calcium (Atorvastatin Calcium 20 Mg Tablet) 20 mg PO BEDTIME [facility] Last Admin: 03/18/24 21:28 Dose: 20 mg Documented By: URSULA Ceftriaxone Sodium (Ceftriaxone Sodium 1 Gm Vial) 1 gm IVPUSH Q24H [facility] Last Admin: 03/19/24 08:10 Dose: 1 gm Documented By: TEGAN Famotidine (Famotidine 20 Mg Tablet) 20 mg PO BID@1200,2200 [facility] Last Admin: 03/18/24 21:28 Dose: 20 mg Documented By: URSULA Folic Acid (Folic Acid 1 Mg Tablet) 1 mg PO DAILY@1200 [facility] Last Admin: 03/18/24 13:11 Dose: 1 mg Documented By: TEGAN Hydrocortisone (Hydrocortisone 1 % Ointment 28.35 Gm Tube) 1 appl TOPICAL BID PRN; Protocol PRN Reason: Itching Last Admin: 03/17/24 21:49 Dose: 1 appl Documented By: BOBBY Hydroxyzine HCl (Hydroxyzine Hcl 25 Mg Tablet) 25 mg PO TID PRN PRN Reason: Itching Last Admin: 03/19/24 03:29 Dose: 25 mg Documented By: URSULA Levothyroxine Sodium (Levothyroxine Sodium 88 Mcg Tablet) 88 mcg PO DAILY@0600 [facility] Last Admin: 03/19/24 06:11 Dose: 88 mcg Documented By: BOBBY Metoprolol Tartrate (Metoprolol Tartrate 25 Mg Tablet) 25 mg PO BID@1200,2200 [facility]; Protocol Last Admin: 03/18/24 21:28 Dose: 25 mg Documented By: URSULA Metronidazole (Metronidazole 500 Mg Tablet) 500 mg PO Q8H [facility] Last Admin: 03/19/24 08:10 Dose: 500 mg Documented By: TEGAN Naloxone HCl (Naloxone Hcl 0.4 Mg/Ml Vial) 0.04 mg IVPUSH Q5M PRN PRN Reason: Excessive sedation or RR < 8 Ondansetron HCl (Ondansetron Hcl 4 Mg/2 Ml Vial) 4 mg IVPUSH Q8H PRN PRN Reason: Nausea and Vomiting Last Admin: 03/16/24 16:32 Dose: 4 mg Documented By: IDALMIS Ropinirole HCl (Ropinirole Hcl 0.5 Mg Tablet) 0.5 mg PO BEDTIME@2200 [facility] Last Admin: 03/18/24 21:28 Dose: 0.5 mg Documented By: URSULA Sodium Chloride (0.9 % Sodium Chloride Flush 3 Ml Syringe) 3 ml IVFLUSH HIFT [facility] Last Admin: 03/19/24 08:10 Dose: 3 ml Documented By: TEGAN Tacrolimus (Tacrolimus 0.5 Mg Capsule) 0.5 mg PO BID@1200,2200 [facility] Last Admin: 03/18/24 21:28 Dose: 0.5 mg Documented By: URSULA Venlafaxine HCl (Venlafaxine Hcl 25 Mg Tablet) 25 mg PO DAILY@1200 [facility] Last Admin: 03/18/24 13:12 Dose: 25 mg Documented By: TEGAN Vitamin D (Cholecalciferol (Vitamin D3) 25 Mcg Tablet) 50 mcg PO DAILY@1200 [facility] Last Admin: 03/18/24 13:11 Dose: 50 mcg Documented By: TEGAN Labs 03/19/24 08:22 03/19/24 08:22 Labs: Laboratory Results - last 24 hr 03/19/24 03/19/24 07:23 08:22 MCV 92.5 MCH 30.2 MCHC 32.7 RDW 15.8 Plt Count 242 MPV 10.7 Absolute Nucleated RBC 0.000 Nucleated RBC % (auto) 0.0 Anion Gap 16 Estim Creat Clear Calc 12.8 Estimated GFR 11 Random Glucose 82 Calcium 8.3 L D TSH 0.12 L Microbiology Microbiology Results: Microbiology 03/14/24 00:34 Blood Culture - Final Blood - Venous No growth after 5 days. 03/14/24 00:16 Blood Culture - Final Blood - Venous No growth after 5 days. Assessment and Plan (1) Diverticulitis: Status: Acute Plan The patient was admitted for management of recurrent diverticulitis and was treated with IV antibiotics. She was seen by GI, and an attempt was made to perform a sigmoidoscopy on 03/17. However, due to areas of edema and swelling, the scope could not be passed. IR did not feel that a barium enema would be beneficial. GI recommends conservative management and a repeat sigmoidoscopy in 6 weeks. She will be discharged with oral antibiotics to complete a 10-day course. She is tolerating a regular diet. Double Vision: The patient states it has been occurring on and off for 2 months. She had laser surgery 2 months ago. The double vision is only present when both eyes are open and resolves when either eye is closed, indicating binocular diplopia. No facial droop or focal extremity weakness is noted. A CT head no acute finding, MRI and Neurology eval ESRD on TTS: -Dialysis per nephrology. -Last HD: 03/18. -Nephrology is following. CAD/PAF: -Continue baseline medications. GERD: -Pepcid. COPD: -At baseline, continue inhalers. History of Cirrhosis - s/p Transplant in 2008: -Continue anti-rejection medications. Hypothyroidism: -Synthroid. DVT ppt with SCD, due to documented allergy with heparin products dispo - refuses placement, so will dc home after MRI Quality Stroke Does the patient have a stroke diagnosis?: No VTE Prior VTE?: No VTE Risk Level:: Medical - moderate - high VTE Device Contraindication: N/A - Device Ordered VTE Drug Contraindication: Treatment Not Indicated
--- NOTE | 2024-03-19 11:07 | MHC.CM.PN ---
DP: PT HAS BEEN MEDICALLY CLEARED FOR DC HOME WITH RESUMPTION OF [facility]. [facility] UPDATED ON TODAY'S DC [facility]) PT WILL RESUME HD 03/20 AT [facility] AND THEY HAVE SECURED TRANSPORT. BLS TRANSPORT BOOKED VIA [facility] FOR 4 PM AND [facility] AUTH OBTAINED. BOOKING ID # [id number]. RN AWARE.
--- NOTE | 2024-03-19 11:18 | P.CNNE_ITS ---
History of Present Illness Data of Consult Service Date: 03/19/24 Primary Care Provider: Vanessa Hu MD [facility] Reason for consult: Diplopia 73 years old woman with medical history of liver transplant was admitted in hospital for abdominal issues. She reported that she was seeing double and this consultation was requested. She said that this started after she had LASIK treatment in summer. When she would watch television at a distance she would see double. There was no associated dizziness or any other symptom. This symptom was not present every day. She said that if she would cover 1 eye, she would say single. Review of Systems 2 Review of Systems: No numbness paralysis or speech or language difficulty or dizziness PMFSH Past Medical History Medical History ESRD (end stage renal disease) on dialysis Congestive heart failure Patient on waiting list for kidney transplant Gout History of transcatheter aortic valve replacement (TAVR) History of blood transfusion GERD (gastroesophageal reflux disease) Anxiety and depression AV fistula Hemodialysis patient COVID-19 vaccine series completed Murmur Hyperkalemia Left inguinal hernia DJD (degenerative joint disease) of thoracic spine Neuropathy End-stage renal disease (ESRD) COPD (chronic obstructive pulmonary disease) Coronary artery disease Bronchitis Asthma Arthritis Anemia Cirrhosis Surgical History Surgical History (Updated 03/17/24 @ 12:39 by Patria Krueger RN) H/O thyroidectomy H/O hemorrhoidectomy Hx of spinal surgery H/O heart surgery Hx of colonoscopy History of liver transplant History of surgery on arm Social History Social History Household Members: None Housing: Apartment Are you a primary child day care center worker to a significant other at home: No Do you presently have visiting nurse or other home services: No Unable to assess alcohol history related to: Unable to respond Alcohol intake: never Comment: pt refused bed alarm Patient Tobacco Use Status: Former Tobacco user Tobacco use type: Cigarette Cigarette Packs Per Day: 2 Cigarettes Per Day: 40.0 Years Smoked: 25 Smoked in Last 30 Days: No e-Cigarette/Vaping Use: Never Used Second Hand Smoke Exposure: No Use of substances other than those prescribed or required for medical reasons: No Currently Displaying Signs/Symptoms of Drug Intoxication Withdrawal: No Have you been hit, kicked, punched, or otherwise hurt by someone within the past year? If so, by whom?: No Do you feel safe in your current relationship?: No Current Relationship Is there a partner from a previous relationship who is making you feel unsafe now?: No Are you made to feel afraid or neglected: No Are you DNR?: No Advance Directives: Yes Advance Directives Information Provided: Yes Advance Directives on File: Yes Advance Directives Date on File: 09/12/10 Do you have a plan to hurt others: No Plan Recently lost weight without trying: Yes How much weight loss: 2-13 pounds Eating poorly because of decreased appetite: Yes Nutrition screen score: 4 Nutrition Risks: No Nutritional Risk Patient : No : No Poor oral hygiene: Yes (all teeth missing) service: No Current occupational status: retired [employer] Allergies Allergy/AdvReac Type Severity Reaction Status Date / Time Sulfa (Sulfonamide Allergy Intermediate HIVES Verified 03/13/24 23:30 Antibiotics) Heparin Analogues Allergy Unknown UNKNOWN Verified 03/13/24 23:30 [Heparin Agents] verapamil Allergy Unknown unknown Verified 03/13/24 23:30 Active Medications: Current Medications Acetaminophen (Acetaminophen 325 Mg Tablet) 975 mg PO Q6H PRN PRN Reason: Pain, Mild (Pain Scale 1-3), fever or headache Albuterol Sulfate (Albuterol Sulfate (0.083%) 2.5 Mg/3 Ml Vial.Neb) 2.5 mg INHALE Q6H PRN PRN Reason: Shortness Of Breath Or Wheezing Allopurinol (Allopurinol 100 Mg Tablet) 100 mg PO DAILY@1200 [facility] Last Admin: 03/18/24 13:12 Dose: 100 mg Aspirin (Aspirin Enteric Coated 81 Mg Tablet.Dr) 81 mg PO DAILY@1200 [facility] Last Admin: 03/18/24 13:12 Dose: 81 mg Atorvastatin Calcium (Atorvastatin Calcium 20 Mg Tablet) 20 mg PO BEDTIME [facility] Last Admin: 03/18/24 21:28 Dose: 20 mg Ceftriaxone Sodium (Ceftriaxone Sodium 1 Gm Vial) 1 gm IVPUSH Q24H [facility] Last Admin: 03/19/24 08:10 Dose: 1 gm Famotidine (Famotidine 20 Mg Tablet) 20 mg PO BID@1200,2200 [facility] Last Admin: 03/18/24 21:28 Dose: 20 mg Folic Acid (Folic Acid 1 Mg Tablet) 1 mg PO DAILY@1200 [facility] Last Admin: 03/18/24 13:11 Dose: 1 mg Hydrocortisone (Hydrocortisone 1 % Ointment 28.35 Gm Tube) 1 appl TOPICAL BID PRN; Protocol PRN Reason: Itching Last Admin: 03/17/24 21:49 Dose: 1 appl Hydroxyzine HCl (Hydroxyzine Hcl 25 Mg Tablet) 25 mg PO TID PRN PRN Reason: Itching Last Admin: 03/19/24 03:29 Dose: 25 mg Levothyroxine Sodium (Levothyroxine Sodium 88 Mcg Tablet) 88 mcg PO DAILY@0600 [facility] Last Admin: 03/19/24 06:11 Dose: 88 mcg Metoprolol Tartrate (Metoprolol Tartrate 25 Mg Tablet) 25 mg PO BID@1200,2200 [facility]; Protocol Last Admin: 03/18/24 21:28 Dose: 25 mg Metronidazole (Metronidazole 500 Mg Tablet) 500 mg PO Q8H [facility] Last Admin: 03/19/24 08:10 Dose: 500 mg Naloxone HCl (Naloxone Hcl 0.4 Mg/Ml Vial) 0.04 mg IVPUSH Q5M PRN PRN Reason: Excessive sedation or RR < 8 Ondansetron HCl (Ondansetron Hcl 4 Mg/2 Ml Vial) 4 mg IVPUSH Q8H PRN PRN Reason: Nausea and Vomiting Last Admin: 03/16/24 16:32 Dose: 4 mg Ropinirole HCl (Ropinirole Hcl 0.5 Mg Tablet) 0.5 mg PO BEDTIME@2200 [facility] Last Admin: 03/18/24 21:28 Dose: 0.5 mg Sodium Chloride (0.9 % Sodium Chloride Flush 3 Ml Syringe) 3 ml IVFLUSH [facility] Last Admin: 03/19/24 08:10 Dose: 3 ml Tacrolimus (Tacrolimus 0.5 Mg Capsule) 0.5 mg PO BID@1200,2200 [facility] Last Admin: 03/18/24 21:28 Dose: 0.5 mg Venlafaxine HCl (Venlafaxine Hcl 25 Mg Tablet) 25 mg PO DAILY@1200 [facility] Last Admin: 03/18/24 13:12 Dose: 25 mg Vitamin D (Cholecalciferol (Vitamin D3) 25 Mcg Tablet) 50 mcg PO DAILY@1200 [facility] Last Admin: 03/18/24 13:11 Dose: 50 mcg Home Medications ?Medication ?Instructions ?Recorded ?Confirmed ?Last Taken ?Type aspirin 81 mg tablet,delayed 81 mg PO DAILY@1200 01/26/20 03/14/24 03/10/24 History release allopurinol 100 mg tablet 100 mg PO DAILY@1200 03/08/20 03/14/24 03/10/24 History cholecalciferol (vitamin D3) 50 1 tab PO DAILY@1200 08/14/20 03/14/24 03/10/24 History mcg (2,000 unit) tablet hydroxyzine HCl 25 mg tablet 1 tab PO TID PRN Itching 08/14/20 03/14/24 04/04/23 History ropinirole 0.5 mg tablet 1 tab PO BEDTIME@2200 08/14/20 03/14/24 03/10/24 History venlafaxine 25 mg tablet 1 tab PO DAILY@1200 08/14/20 03/14/24 03/10/24 History famotidine 20 mg tablet 1 tab PO BID@1200,2200 01/14/22 03/14/24 03/10/24 History rosuvastatin 5 mg tablet 1 tab PO BEDTIME 01/14/22 03/14/24 03/10/24 History levothyroxine 88 mcg tablet 88 mcg PO DAILY@0600 01/20/23 03/14/24 03/10/24 History albuterol sulfate 90 mcg/actuation 1 puff inhalation Q6H PRN 06/09/23 03/14/24 Unknown History aerosol inhaler (Ventolin HFA) Shortness Of Breath Or Wheezing tacrolimus 0.5 mg capsule, 0.5 mg PO BID@1200,2200 07/15/23 03/14/24 03/10/24 History immediate-release folic acid 1 mg tablet 1 mg PO DAILY@1200 02/04/24 03/14/24 03/10/24 History metoprolol tartrate 25 mg tablet 25 mg PO BID@1200,2200 02/04/24 03/14/24 03/10/24 History albuterol sulfate 2.5 mg/3 mL 2.5 mg inhalation Q6H PRN 03/11/24 03/14/24 Unknown History (0.083 %) solution for nebulization Shortness Of Breath Or Wheezing calcium citrate 400 mg PO BID@1200,2200 03/11/24 03/14/24 03/10/24 History Physical Exam 2 Vital Signs: Vital Signs: Last Vital Signs Temp 98.6 F 03/19/24 07:50 Pulse 54 03/19/24 07:50 Resp 18 03/19/24 07:50 BP 112/57 L 03/19/24 07:50 Pulse Ox 98 03/19/24 07:50 O2 Del Method Room Air 03/19/24 07:50 BMI result Body Mass Index 23.2 Neuro: Other: She is alert and awake with normal spontaneity of speech fluency comprehension and flat affect. Pupils are about 3 mm round reactive to light. Extraocular muscles are intact. Visual castano are full. Face is symmetrical. Speech is normal. With covering 1 eye, she stated that she was seeing double and with both eyes open, and single with 1 eye closed. With that, there is no obvious extraocular muscle weakness that IC. With history of many months of this type of problem, more likely diagnosis is microvascular ischemic disease. Neuromuscular disorder is another possibility but seems less likely. As far as microvascular disease is concerned, patient usually recover in 3-6 months. Maybe acetyl choline receptor antibody titer can be done to rule out any possibility of myasthenia gravis. If that is negative, management is ophthalmological with corrective lenses. Results Labs 03/19/24 08:22 03/19/24 08:22 Labs: Short CBC 03/19/24 Range/Units 08:22 WBC 7.0 (4.8-10.8) X10*3/uL Hgb 11.2 L (12.0-16.0) g/dl Hct 34.3 L (37.0-47.0) % Plt Count 242 (160-400) X10*3/uL BMP 03/19/24 08:22 Sodium 135 Potassium 4.1 D Chloride 103 Carbon Dioxide 20 L BUN 15 Creatinine 4.02 H* Calcium 8.3 L D Microbiology Microbiology Results: Microbiology 03/14/24 00:34 Blood - Venous Blood Culture - Final No growth after 5 days. 03/14/24 00:16 Blood - Venous Blood Culture - Final No growth after 5 days. Procedures Date of Service Date of Service: 03/19/24
[2024-03-19] MEDS: Aspirin Enteric Coated 81 MG TABLET.DR PO (11:50)
[2024-03-19] MEDS: Cholecalciferol (Vitamin D3) 25 MCG TABLET 50 MCG PO (11:50)
[2024-03-19] MEDS: Venlafaxine HCL 25 MG TABLET PO (11:50)
[2024-03-19] MEDS: Metoprolol Tartrate 25 MG TABLET PO (11:50)
[2024-03-19] MEDS: Tacrolimus 0.5 MG CAPSULE PO (11:50)
[2024-03-19] MEDS: allopurinoL 100 MG TABLET PO (11:50)
[2024-03-19] MEDS: Folic Acid 1 MG TABLET PO (11:50)
[2024-03-19] MEDS: Famotidine 20 MG TABLET PO (11:50)
[2024-03-19 15:58] VITALS: BP 120/62; PULSE 65; RESP 12; TEMP 36.3; O2SAT 97
[2024-03-25 02:49] LABS: Acetylcholine Receptor Binding <0.30 nmol/L
[2024-03-26 13:38] LABS: Acetylcholine Recept. Blocking <15 (<15)
[2024-03-26 17:39] LABS: Acetylcholine Recep Modulating <1
== END 2024-03-19 20:36 | disposition home health service (06) | DRG 391 ==
LOC: HO.ED 03-14 01:17 → HO.EDOVER 03-14 02:46 → HO.S3 03-14 08:24
PROVIDERS: Internal Medicine Gastroenterology; Nurse Practitioner Family; Physician Assistant Medical; Student in an Organized Health Care Education/Training Program; Admitting Provider Internal Medicine; Emergency Provider Emergency Medicine; PCP Pediatrics; Visit Provider Internal Medicine
PROC: 0DJD8ZZ Inspection of Lower Intestinal Tract, Via Natural or Artificial Opening Endoscopic (ICD-10-PCS; CPT 45330; principal; 2024-03-17 15:00)
DX: K57.32 Diverticulitis of large intestine without perforation or abscess without bleeding (principal); N18.6 End stage renal disease; Z94.4 Liver transplant status; I48.0 Paroxysmal atrial fibrillation; K21.9 Gastro-esophageal reflux disease without esophagitis; J44.9 Chronic obstructive pulmonary disease, unspecified; E86.1 Hypovolemia; I25.10 Atherosclerotic heart disease of native coronary artery without angina pectoris; H53.2 Diplopia; Z99.2 Dependence on renal dialysis; E89.0 Postprocedural hypothyroidism; K64.8 Other hemorrhoids; Z95.2 Presence of prosthetic heart valve; Z85.850 Personal history of malignant neoplasm of thyroid; Z87.891 Personal history of nicotine dependence; Z79.82 Long term (current) use of aspirin; Z79.621 Long term (current) use of calcineurin inhibitor; Z79.890 Hormone replacement therapy; Z79.899 Other long term (current) drug therapy
CPT/HCPCS: 36415; 70450; 74176; 80048; 80076; 83605; 83690; 83970; 84100; 84443; 85025; 85027; 86041; 86042; 86043; 87040; 90999; 99285; J0696; J1171; J1836; J1956; J2003; J2270; J2405; J2704

== ENCOUNTER → 2024-03-14 01:14 | Outpatient (BNV) | payer OTHER, SELFPAY | PROVIDERS: Emergency Provider Emergency Medicine; Visit Provider Internal Medicine | DX: K57.92 Diverticulitis of intestine, part unspecified, without perforation or abscess without bleeding (principal) | CPT/HCPCS: 99223; 99232; 99239; 99499 ==

== ENCOUNTER 2024-03-14 02:18 | Outpatient (BNV) | payer OTHER, SELFPAY | END 2024-03-19 06:50 | PROVIDERS: Admitting Provider Internal Medicine; Emergency Provider Emergency Medicine; PCP Pediatrics; Visit Provider Radiology Diagnostic Radiology | DX: I67.2 Cerebral atherosclerosis (principal) | CPT/HCPCS: 70450 ==

== ENCOUNTER → 2024-03-14 02:18 | Outpatient (BNV) | payer OTHER, SELFPAY | PROVIDERS: Admitting Provider Internal Medicine; Emergency Provider Emergency Medicine; PCP Pediatrics; Visit Provider Internal Medicine Gastroenterology | DX: K57.92 Diverticulitis of intestine, part unspecified, without perforation or abscess without bleeding (principal) | CPT/HCPCS: 99223 ==

== ENCOUNTER → 2024-03-14 02:18 | Outpatient (BNV) | payer OTHER, SELFPAY | PROVIDERS: Admitting Provider Internal Medicine; Emergency Provider Emergency Medicine; PCP Pediatrics; Visit Provider Nurse Practitioner Family | DX: N18.6 End stage renal disease (principal); Z99.2 Dependence on renal dialysis | CPT/HCPCS: 90935 ==

== ENCOUNTER → 2024-03-14 02:18 | Outpatient (BNV) | payer OTHER, SELFPAY | PROVIDERS: Admitting Provider Internal Medicine; Emergency Provider Emergency Medicine; PCP Pediatrics; Visit Provider Psychiatry & Neurology Neurology | DX: I67.82 Cerebral ischemia (principal) | CPT/HCPCS: 99222 ==

== ENCOUNTER 2024-04-10 14:29 | Inpatient (IN) | payer OTHER, SELFPAY ==
[2024-04-10] VITALS (8 sets, daily range): BP systolic 114–175; BP diastolic 55–119; PULSE 64–92; RESP 12–20; TEMP 36.8–39.6; O2SAT 95–100; BMI 24.9
--- NOTE | ~2024-04-10 | CT_ITS ---
CLINICAL HISTORY: pain, sbo? CT abdomen and pelvis without contrast Comparison: 03/13/2024 Findings: Irregular wall thickening in sigmoid colon. Adjacent stranding and fluid noted. Underlying diverticuli are noted. Findings consistent with acute diverticulitis. Small pockets of free air adjacent to colon. Findings consistent with micro perforation. Sigmoid colon mass is not excludable. Small amount of free fluid noted in pelvis. Mild diffuse small bowel distention noted. Finding may represent reactive ileus. New left lower lobe subsegmental atelectasis. Cardiomegaly. Prosthetic aortic valve. Multilevel vertebral body compression fractures. Findings are unchanged from prior study. Degenerative change spine and hips. Liver and spleen within normal limits. Pancreas and adrenal glands unremarkable. Cholecystectomy. Small bilateral kidneys consistent with chronic disease. Nonobstructing left renal stones noted. No ureteral stone or hydronephrosis. No evidence for aortic aneurysm. No significant adenopathy is noted in the pelvis. Appendix not identified. Small right inguinal hernia contains bowel. No significant bowel distention noted. Uterus normal size. No adnexal abnormalities. Impression: Acute sigmoid diverticulitis with localized microperforation Small-bowel distention, possible ileus Free fluid in pelvis without fluid collection This document has been electronically signed by: Robin Raza MD on 04/10/2024 20:49:10
[2024-04-10 15:36] LABS: MANUAL DIFF FLAG NO
[2024-04-10 15:43] LABS: Basophils Percent Auto 0.3 % (0-2); Eosinophils Absolute Auto 0.1 X10*3/uL (0.0-0.4); Eosinophils Percent Auto 0.5 % (0-4); Hematocrit 30.9 % (37.0-47.0); Hemoglobin 9.7 g/dl (12.0-16.0); Imm Gran Abs Auto 0.06 X10*3/uL (0.00-0.03); Imm Gran Pct Auto 0.5 % (0.0-0.4); Lymphocytes Percent Auto 8.6 % (20-40); Mean Corpuscular HGB Conc 31.4 g/dl (31.0-35.0); Mean Corpuscular Hemoglobin 29.8 pg (27.0-33.0); Mean Corpuscular Volume 95.1 fL (80.0-98.0); Mean Platelet Volume 11.2 fL (9.4-12.3); Monocytes Percent Auto 8.5 % (2-11); Neutrophils Absolute Auto 9.5 x10*3/uL (2.0-8.3); Neutrophils Percent Auto 81.6 % (45-73); Platelet Count 251 X10*3/uL (160-400); Red Blood Count 3.25 X10*6/uL (4.20-5.50); Red Cell Distribution Width 16.1 % (11.0-16.0); White Blood Count 11.7 X10*3/uL (4.8-10.8)
[2024-04-10 16:03] LABS: Alanine Aminotransferase < 6 U/L (0-31); Albumin Level 2.9 g/dL (3.5-5.0); Anion Gap 13 (12-20); Aspartate Amino Transferase 37 U/L (5-31); Bilirubin Total 0.6 mg/dL (0.0-1.0); Blood Urea Nitrogen 15 mg/dL (9-16); Calcium 8.5 mg/dL (8.4-10.2); Carbon Dioxide 27 mmol/L (22-29); Chloride 103 mmol/L (96-108); Creatinine Clr Calc Pharmacy 19.1; Estimated Glomerular Filt Rate 17; Glucose Random 100 mg/dL (60-115); Lipase 19 U/L (8-78); Magnesium 1.9 mg/dL (1.6-2.6); Potassium 4.3 mmol/L (3.3-5.1); Sodium 139 mmol/L (135-145); Total Protein 7.4 g/dL (6.5-8.0)
[2024-04-10 16:15] LABS: Influenza A PCR NEGATIVE (Negative); Influenza B PCR NEGATIVE (Negative); Resp Syncy Virus RNA Qual PCR NEGATIVE (Negative); SARS COV2 PCR INHOUSE NEGATIVE (Negative)
[2024-04-10 16:26] LABS: Alkaline Phosphatase 73 U/L (39-117)
--- NOTE | 2024-04-10 16:34 | PC.NURSE ---
Pt BIBA from home for c/o of abdominal pain with nausea that became worse last night. Pt reports hasn't had a BM x2days. Hx Diverticulitis. c/o 10/ abdominal pain, provider made aware. Kidney failure, currently goes to Dialysis, left arm fistula present. Alert and oriented. 20g Right AC IV placed. Labs obtained.
--- NOTE | 2024-04-10 17:18 | ED_ITS ---
HPI - Abdominal Pain General Chief Complaint: Abdominal Pain Stated Complaint: ABD PAIN, NO BM X2D PER EMS Time Seen by Provider: 04/10/24 17:17 Source: patient Limitations: no limitations History of Present Illness ED Provider: Bree Serrano PA-C HPI narrative: 73-year-old female with a history of end-stage renal disease on hemodialysis, liver failure status post transplant on tacrolimus, coronary artery disease with prior NSTEMI, paroxysmal AFib not anticoagulated, presents with weakness AP x 1-2 days. Pain is generalized over lower abdomen, unable to describe the nature of her discomfort. Associated abdominal bloating, nausea,vomiting and she reports having 1 loose stool. Denies inability to pass flatus or fever. Related Data Home Medications ?Medication ?Instructions ?Recorded ?Confirmed aspirin 81 mg tablet,delayed 81 mg PO DAILY@1200 01/26/20 03/14/24 release allopurinol 100 mg tablet 100 mg PO DAILY@1200 03/08/20 03/14/24 cholecalciferol (vitamin D3) 50 1 tab PO DAILY@1200 08/14/20 03/14/24 mcg (2,000 unit) tablet hydroxyzine HCl 25 mg tablet 1 tab PO TID PRN Itching 08/14/20 03/14/24 ropinirole 0.5 mg tablet 1 tab PO BEDTIME@2200 08/14/20 03/14/24 venlafaxine 25 mg tablet 1 tab PO DAILY@1200 08/14/20 03/14/24 famotidine 20 mg tablet 1 tab PO BID@1200,2200 01/14/22 03/14/24 rosuvastatin 5 mg tablet 1 tab PO BEDTIME 01/14/22 03/14/24 levothyroxine 88 mcg tablet 88 mcg PO DAILY@0600 01/20/23 03/14/24 albuterol sulfate 90 mcg/actuation 1 puff inhalation Q6H PRN 06/09/23 03/14/24 aerosol inhaler (Ventolin HFA) Shortness Of Breath Or Wheezing tacrolimus 0.5 mg capsule, 0.5 mg PO BID@1200,2200 07/15/23 03/14/24 immediate-release folic acid 1 mg tablet 1 mg PO DAILY@1200 02/04/24 03/14/24 metoprolol tartrate 25 mg tablet 25 mg PO BID@1200,2200 02/04/24 03/14/24 albuterol sulfate 2.5 mg/3 mL 2.5 mg inhalation Q6H PRN 03/11/24 03/14/24 (0.083 %) solution for nebulization Shortness Of Breath Or Wheezing calcium citrate 400 mg PO BID@1200,2200 03/11/24 03/14/24 Previous Rx's ?Medication ?Instructions ?Recorded metronidazole 500 mg tablet 500 mg PO Q8H #15 tabs 03/12/24 amoxicillin 500 mg-potassium 1 tab PO BID #10 tabs 03/19/24 clavulanate 125 mg tablet (Augmentin) metronidazole 500 mg tablet 500 mg PO Q8H #15 tabs 03/19/24 Allergies Allergy/AdvReac Type Severity Reaction Status Date / Time Sulfa (Sulfonamide Allergy Intermediate HIVES Verified 04/10/24 14:57 Antibiotics) Heparin Analogues Allergy Unknown UNKNOWN Verified 04/10/24 14:57 [Heparin Agents] verapamil Allergy Unknown unknown Verified 04/10/24 14:57 Review of Systems Review of Systems Yes all other systems are reviewed and are negative Constitutional: Denies fatigue and Denies fever(s) Cardiovascular: Denies chest pain and Denies dyspnea Respiratory: Denies cough and Denies dyspnea Gastrointestinal: Reports abdominal pain, Reports bloating, Denies constipation, Reports diarrhea, Reports nausea and Reports vomiting Endocrine: Denies fatigue PMFSH Past Medical History Attestation statement: The following information was validated with the patient. Medical History (Updated 04/10/24 @ 22:55 by Padmaja Ruiz PA-C) ESRD (end stage renal disease) on dialysis Congestive heart failure Patient on waiting list for kidney transplant Gout History of transcatheter aortic valve replacement (TAVR) History of blood transfusion GERD (gastroesophageal reflux disease) Anxiety and depression AV fistula Hemodialysis patient COVID-19 vaccine series completed Murmur Hyperkalemia Left inguinal hernia DJD (degenerative joint disease) of thoracic spine Neuropathy End-stage renal disease (ESRD) COPD (chronic obstructive pulmonary disease) Coronary artery disease Bronchitis Asthma Arthritis Anemia Cirrhosis Surgical History Liver transplant recipient H/O thyroidectomy H/O hemorrhoidectomy Hx of spinal surgery H/O heart surgery Hx of colonoscopy History of liver transplant History of surgery on arm Social History Social History Household Members: None Housing: Apartment Are you a primary primary care sales representative to a significant other at home: No Do you presently have visiting nurse or other home services: No Unable to assess alcohol history related to: Unable to respond Alcohol intake: never Comment: pt refused bed alarm Patient Tobacco Use Status: Former Tobacco user Tobacco use type: Cigarette Cigarette Packs Per Day: 2 Cigarettes Per Day: 40.0 Years Smoked: 25 Smoked in Last 30 Days: No e-Cigarette/Vaping Use: Never Used Second Hand Smoke Exposure: No Use of substances other than those prescribed or required for medical reasons: No Advance Directives: Yes Advance Directives on File: Yes Advance Directives Date on File: 03/08/20 Do you have a plan to hurt others: No Plan service: No Current occupational status: retired Physical Exam ED Vital Signs: Vital Signs - 24 hr 04/10/24 14:54 04/10/24 17:23 04/10/24 17:27 Temperature 98.3 F 98.9 F Pulse Rate 83 69 Respiratory Rate 20 20 20 Blood Pressure 170/91 H 175/75 H Pulse Oximetry 100 100 Oxygen Delivery Method Room Air Room Air 04/10/24 20:11 04/10/24 21:14 04/10/24 21:40 Temperature 103.3 F H 101.1 F H Pulse Rate 77 92 Respiratory Rate 20 17 18 Blood Pressure 165/75 H 118/61 Pulse Oximetry 97 95 Oxygen Delivery Method Room Air Room Air BMI result Body Mass Index 24.9 Const Other: Alert, ill in appearance, cachectic Orientation/consciousness: patient oriented x3 HENMT Other: Dry oral mucosa Resp Other: Nonlabored respiration Cardio Other: Normal peripheral perfusion GI Other: Abdomen is soft, nondistended, generalized tenderness to palpation across entire lower abdomen without guarding Skin Other: Warm dry no rash Neuro General: patient oriented x3, no focal motor deficits and CN's II-XI intact bilaterally Psych Other: Cooperative Course Reevaluation(s) Reevaluation #1: sepsis identified, she is now febrile, CT scan pending of the abdomen. She has end-stage renal, is anuric, we will be giving 250 mL bolus of saline, to note she is not hypotensive, she is not tachycardic .... We will give Toradol, start ceftriaxone and we will be collecting blood cultures and a lactic acid Time: 20:13 Consultations Consultation #1: Dr. Bueno he assessed the patient, nothing surgical at this time, she could be managed on the medical service with surgery consulting as needed Time: 21:00 Medical Decision Making Medical Decision Making MDM Narrative: 73-year-old female with a history of end-stage renal disease on hemodialysis, liver failure status post transplant on tacrolimus, coronary artery disease with prior NSTEMI, paroxysmal AFib not anticoagulated, presents with weakness AP x 1-2 days. Pain is generalized over lower abdomen, unable to describe the nature of her discomfort. Associated abdominal bloating, nausea,vomiting and she reports having 1 loose stool. Denies inability to pass flatus or fever. Problem: End-stage renal, transplant patient, coronary artery disease, AFib History: Per patient I have considered the following differential diagnoses: Diverticulitis, bowel obstruction, viral gastroenteritis, mesenteric ischemia Plan: Patient's pain is somewhat out of proportion with the her exam, I am considering mesenteric ischemia she has a history of AFib and hypertension. Given her symptoms, this could be viral gastroenteritis given such illness has been prevalent within the community. Thought about diverticulitis, she has known diverticulosis, however her exam was nonfocal. Regardless she will be getting a CT scan. I also considered bowel obstruction given the patient states she feels bloated, however she is not really having obstructive symptoms. We will be giving Dilaudid for her discomfort with low-dose Ativan. I have independently reviewed the following tests: Labs: Leukocytosis with left shift, stable anemia, no electrolyte abnormality for her, lactic acid 1.9 CT abdomen and pelvis, Impression: Acute sigmoid diverticulitis with localized microperforation Small-bowel distention, possible ileus Free fluid in pelvis without fluid collection This document has been electronically signed by: Robin Raza MD on 04/10/2024 20:49:10 Lab Data 04/10/24 15:31 04/10/24 15:31 Labs: Lab Results 04/10/24 04/10/24 04/10/24 Range/Units 15:31 17:37 20:32 WBC 11.7 H (4.8-10.8) X10*3/uL RBC 3.25 L (4.20-5.50) X10*6/uL Hgb 9.7 L (12.0-16.0) g/dl Hct 30.9 L (37.0-47.0) % MCV 95.1 (80.0-98.0) fL MCH 29.8 (27.0-33.0) pg MCHC 31.4 (31.0-35.0) g/dl RDW 16.1 H (11.0-16.0) % Plt Count 251 (160-400) X10*3/uL MPV 11.2 (9.4-12.3) fL Immature Gran % (Auto) 0.5 H (0.0-0.4) % Neut % (Auto) 81.6 H (45-73) % Lymph % (Auto) 8.6 L (20-40) % [place] % (Auto) 8.5 (2-11) % Eos % (Auto) 0.5 (0-4) % Baso % (Auto) 0.3 (0-2) % Lymph # (Auto) 1.0 L (1.2-4.9) X10*3/uL [place] # (Auto) 1.0 (0.1-1.2) X10*3/uL Eos # (Auto) 0.1 (0.0-0.4) X10*3/uL Baso # (Auto) 0.0 (0.0-0.2) X10*3/uL Abs Immat Gran (auto) 0.06 H (0.00-0.03) X10*3/uL Absolute Neuts (auto) 9.5 H (2.0-8.3) x10*3/uL Absolute Nucleated RBC 0.000 (0.0-0.012) X10*3/uL Nucleated RBC % (auto) 0.0 (0.0-0.2) /100WBC Sodium 139 (135-145) mmol/L Potassium 4.3 (3.3-5.1) mmol/L Chloride 103 (96-108) mmol/L Carbon Dioxide 27 (22-29) mmol/L Anion Gap 13 (12-20) BUN 15 (9-16) mg/dL Creatinine 2.68 H (0.5-1.4) mg/dL Estim Creat Clear Calc 19.1 Estimated GFR 17 Random Glucose 100 (60-115) mg/dL Lactic Acid 1.9 (0.5-2.0) mmol/L Calcium 8.5 (8.4-10.2) mg/dL Magnesium 1.9 (1.6-2.6) mg/dL Total Bilirubin 0.6 (0.0-1.0) mg/dL AST 37 H (5-31) U/L ALT < 6 (0-31) U/L Alkaline Phosphatase 73 (39-117) U/L Troponin I High Sens 25.0 H 22.3 H (<3.5-17.0) ng/L Total Protein 7.4 (6.5-8.0) g/dL Albumin 2.9 L (3.5-5.0) g/dL Lipase 19 (8-78) U/L Influenza Type A (PCR) NEGATIVE (Negative) Influenza Type B (PCR) NEGATIVE (Negative) RSV RNA Qual (PCR) NEGATIVE (Negative) SARS-CoV-2 RNA (RT-PCR) NEGATIVE (Negative) Medications Administered Generic Name Dose Route Start Last Admin Trade Name Anais PRN Reason Stop Dose Admin Lactated Ringer's 1,000 mls @ 100 mls/hr 04/10/24 22:30 04/10/24 23:00 Lr IVCONT 100 mls/hr .Q10H STACI Administration Tacrolimus 0.5 mg 04/10/24 22:30 04/10/24 22:41 Tacrolimus 0.5 Mg Capsule PO 0.5 mg BID STACI Administration Discontinued Medications Generic Name Dose Route Start Last Admin Trade Name Anais PRN Reason Stop Dose Admin Ceftriaxone Sodium 2 gm 04/10/24 20:11 04/10/24 20:36 Ceftriaxone Sodium 2 Gm Vial IVPUSH 04/10/24 20:12 2 gm ONCE ONE Administration Hydromorphone HCl 0.5 mg 04/10/24 17:20 04/10/24 17:27 Hydromorphone Hcl 0.5 Mg/0.5 Ml Syringe IVPUSH 04/10/24 17:21 0.5 mg ONCE ONE Administration Protocol Hydromorphone HCl 0.5 mg 04/10/24 21:06 04/10/24 21:14 Hydromorphone Hcl 0.5 Mg/0.5 Ml Syringe IVPUSH 04/10/24 21:07 0.5 mg ONCE ONE Administration Protocol Sodium Chloride 500 mls @ 250 mls/hr 04/10/24 20:11 04/10/24 22:59 Ns IV 04/10/24 22:10 Infused .Q2H ONE Infusion Metronidazole 500 mg in 100 mls @ 100 mls/hr 04/10/24 20:52 04/10/24 22:40 Flagyl IV 04/10/24 21:51 Infused ONCE ONE Infusion Ketorolac Tromethamine 15 mg 04/10/24 20:39 04/10/24 20:44 Ketorolac Tromethamine 15 Mg/Ml Vial IVPUSH 04/10/24 20:40 15 mg ONCE ONE Administration Lorazepam 1 mg 04/10/24 17:22 04/10/24 17:27 Lorazepam 2 Mg/Ml Vial IVPUSH 04/10/24 17:23 1 mg ONCE ONE Administration Ondansetron HCl 4 mg 04/10/24 21:06 04/10/24 21:14 Ondansetron Hcl 4 Mg/2 Ml Vial IVPUSH 04/10/24 21:07 4 mg ONCE ONE Administration Discharge Plan Discharge Clinical Impression: Perforation of sigmoid colon due to diverticulitis, Sepsis Patient Disposition: Admitted As Inpatient
[2024-04-10] MEDS: LORazepam 2 MG/ML VIAL 1 MG IVPUSH (17:27)
[2024-04-10] MEDS: HYDROmorphone HCl 0.5 MG/0.5 ML SYRINGE IVPUSH ×2 (17:27→21:14)
[2024-04-10 18:14] LABS: Troponin-I High Sensitivity 22.3 ng/L (<3.5-17.0)
[2024-04-10] MEDS: 0.9 % Sodium Chloride 500 ML 250 ML IV (20:35)
[2024-04-10] MEDS: cefTRIAXone sodium 2 GM VIAL IVPUSH (20:36)
[2024-04-10] MEDS: Ketorolac Tromethamine 15 MG/ML VIAL IVPUSH (20:44)
--- NOTE | 2024-04-10 20:55 | MHC.EDTECH ---
This pct assumed care of Patient at 1900 ,vitals taken ,Provider was was made aware that Patient has a high temp of 103.3 ,Lactic acid and both sets of blood culture drawn and sent to lab ,Patient was change and reposition ,Patient requested diet yin keny which was given ,all safety measure in Place .
[2024-04-10 20:58] LABS: Lactic Acid 1.9 mmol/L (0.5-2.0)
[2024-04-10] MEDS: metroNIDAZOLE/NS 500 MG/100 ML PIGGYBACK 100 MG IV (21:05)
[2024-04-10] MEDS: ondansetron HCL 4 MG/2 ML VIAL IVPUSH (21:14)
--- NOTE | 2024-04-10 21:39 | P.CONGS_ITS ---
History of Present Illness Consult details Consult date: 04/10/24 Narrative: 73F with multiple medical problems including ESRD on HD, hx of liver transplant, on immunosuppression, CAD, hx of TAVR, here in the ED for lower abdominal pain. SHe says this started yesterday and has been constantt. She describes having some chills. She denies vomitting. She does have a hx of acute diverticulitis and was admitted last month for a similar episode. She had a flexible sigmoidoscopy done by Dr. Beltran last month and was noted to have diverticulitis. The scope could not be passed past the sigmoid. She says she thinks she probably has had at least 5 episodes already the past year. She also describes frequent loose stools. She had a liver transplant about 15 years ago. She has been on hemodialysis for about 5 years. Review of Systems 2 Constitutional: Constitutional: Reports chills and Denies fever(s) Cardiovascular: Cardiovascular: Denies chest pain, Denies dyspnea and Denies dyspnea on exertion Respiratory: Respiratory: Denies cough, Denies dyspnea and Denies dyspnea on exertion Gastrointestinal: Gastrointestinal: Denies hematochezia and Denies change in bowel habits Genitourinary: Genitourinary: Denies hematuria Musculoskeletal: Musculoskeletal: Denies back pain and Denies limited range of motion Neurologic: Denies focal weakness and Denies convulsions Psychiatric: Psychiatric: Denies depression and Denies mood swings PMFSH Past Medical History Medical History ESRD (end stage renal disease) on dialysis Congestive heart failure Patient on waiting list for kidney transplant Gout History of transcatheter aortic valve replacement (TAVR) History of blood transfusion GERD (gastroesophageal reflux disease) Anxiety and depression AV fistula Hemodialysis patient COVID-19 vaccine series completed Murmur Hyperkalemia Left inguinal hernia DJD (degenerative joint disease) of thoracic spine Neuropathy End-stage renal disease (ESRD) COPD (chronic obstructive pulmonary disease) Coronary artery disease Bronchitis Asthma Arthritis Anemia Cirrhosis Surgical History Surgical History Liver transplant recipient H/O thyroidectomy H/O hemorrhoidectomy Hx of spinal surgery H/O heart surgery Hx of colonoscopy History of liver transplant History of surgery on arm Social History Social History Household Members: None Housing: House Are you a primary senior care manager to a significant other at home: No Do you presently have visiting nurse or other home services: No Unable to assess alcohol history related to: Unable to respond Alcohol intake: never Comment: pt refused bed alarm Patient Tobacco Use Status: Former Tobacco user Tobacco use type: Cigarette Cigarette Packs Per Day: 2 Cigarettes Per Day: 40.0 Years Smoked: 25 e-Cigarette/Vaping Use: Never Used Second Hand Smoke Exposure: No Advance Directives Date on File: 03/08/20 service: No Current occupational status: retired Meds Allergies Allergy/AdvReac Type Severity Reaction Status Date / Time Sulfa (Sulfonamide Allergy Intermediate HIVES Verified 04/10/24 14:57 Antibiotics) Heparin Analogues Allergy Unknown UNKNOWN Verified 04/10/24 14:57 [Heparin Agents] verapamil Allergy Unknown unknown Verified 04/10/24 14:57 Active Medications: Current Medications Sodium Chloride (Ns) 500 mls @ 250 mls/hr IV .Q2H ONE Stop: 04/10/24 22:10 Last Admin: 04/10/24 20:35 Dose: 250 mls/hr Metronidazole (Flagyl) 500 mg in 100 mls @ 100 mls/hr IV ONCE ONE Stop: 04/10/24 21:51 Last Admin: 04/10/24 21:05 Dose: 100 mls/hr Home Medications ?Medication ?Instructions ?Recorded ?Confirmed ?Last Taken ?Type aspirin 81 mg tablet,delayed 81 mg PO DAILY@1200 01/26/20 04/11/24 03/10/24 History release allopurinol 100 mg tablet 100 mg PO DAILY@119903/08/20 04/11/24 03/10/24 History cholecalciferol (vitamin D3) 50 1 tab PO DAILY@119908/14/20 04/11/24 03/10/24 History mcg (2,000 unit) tablet hydroxyzine HCl 25 mg tablet 1 tab PO TID PRN Itching 08/14/20 04/11/24 04/04/23 History ropinirole 0.5 mg tablet 1 tab PO BEDTIME@2200 08/14/20 04/11/24 03/10/24 History venlafaxine 25 mg tablet 1 tab PO DAILY@119908/14/20 04/11/24/11/24 History famotidine 20 mg tablet 1 tab PO BID@1200,2200 01/14/22 04/11/24 03/10/24 History rosuvastatin 5 mg tablet 1 tab PO BEDTIME 01/14/22 04/11/24 03/10/24 History levothyroxine 88 mcg tablet 88 mcg PO DAILY@0600 01/20/23 04/11/24 03/10/24 History albuterol sulfate 90 mcg/actuation 1 puff inhalation Q6H PRN 06/09/23 04/11/24 Unknown History aerosol inhaler (Ventolin HFA) Shortness Of Breath Or Wheezing tacrolimus 0.5 mg capsule, 0.5 mg PO BID@1200,2200 07/15/23 04/11/24 03/10/24 History immediate-release folic acid 1 mg tablet 1 mg PO DAILY@1200 02/04/24 04/11/24 03/10/24 History metoprolol tartrate 25 mg tablet 25 mg PO BID@1200,2200 02/04/24 04/11/24 03/10/24 History albuterol sulfate 2.5 mg/3 mL 2.5 mg inhalation Q6H PRN 03/11/24 04/11/24 Unknown History (0.083 %) solution for nebulization Shortness Of Breath Or Wheezing calcium citrate 400 mg PO BID@1200,2200 03/11/24 04/11/24 03/10/24 History Physical Exam 2 Vital Signs: Vital Signs: Last Vital Signs Temp 103.3 F H 04/10/24 20:11 Pulse 77 04/10/24 20:11 Resp 17 04/10/24 21:14 BP 165/75 H 04/10/24 20:11 Pulse Ox 97 04/10/24 20:11 O2 Del Method Room Air 04/10/24 20:11 BMI result Body Mass Index 24.9 Const: General: comfortable and no acute distress O rientation/consciousness: patient oriented x3 Neck: Neck: Yes no lymphadenopathy Resp: Auscultation: clear to auscultation bilaterally Cardio: Rhythm: regular rhythm GI: Other: tender on the lower abdomen, no guarding or rebound Palpation (GI): Soft to palpation, nontender and no guarding Neuro: General: patient oriented x3 Results Labs 04/13/24 15:26 04/13/24 05:58 Labs: Abnormal lab results 04/10/24 04/10/24 Range/Units 15:31 17:37 WBC 11.7 H (4.8-10.8) X10*3/uL RBC 3.25 L (4.20-5.50) X10*6/uL Hgb 9.7 L (12.0-16.0) g/dl Hct 30.9 L (37.0-47.0) % RDW 16.1 H (11.0-16.0) % Immature Gran % (Auto) 0.5 H (0.0-0.4) % Neut % (Auto) 81.6 H (45-73) % Lymph % (Auto) 8.6 L (20-40) % Lymph # (Auto) 1.0 L (1.2-4.9) X10*3/uL Abs Immat Gran (auto) 0.06 H (0.00-0.03) X10*3/uL Absolute Neuts (auto) 9.5 H (2.0-8.3) x10*3/uL Creatinine 2.68 H (0.5-1.4) mg/dL AST 37 H (5-31) U/L Troponin I High Sens 25.0 H 22.3 H (<3.5-17.0) ng/L Albumin 2.9 L (3.5-5.0) g/dL Short CBC 04/10/24 Range/Units 15:31 WBC 11.7 H (4.8-10.8) X10*3/uL Hgb 9.7 L (12.0-16.0) g/dl Hct 30.9 L (37.0-47.0) % Plt Count 251 (160-400) X10*3/uL BMP 04/10/24 15:31 Sodium 139 Potassium 4.3 Chloride 103 Carbon Dioxide 27 BUN 15 Creatinine 2.68 H Calcium 8.5 Liver Function 04/10/24 Range/Units 15:31 Total Bilirubin 0.6 (0.0-1.0) mg/dL AST 37 H (5-31) U/L ALT < 6 (0-31) U/L Alkaline Phosphatase 73 (39-117) U/L Albumin 2.9 L (3.5-5.0) g/dL All other labs normal. Imaging Abdomen CT scan report/results: report reviewed CT scan - chest: image reviewed CT scan - pelvis: report reviewed and image reviewed Additional studies: Laboratory Results WBC 11.7 X10*3/uL (4.8-10.8) H 04/10/24 15:31 RBC 3.25 X10*6/uL (4.20-5.50) L 04/10/24 15:31 Hgb 9.7 g/dl (12.0-16.0) L 04/10/24 15:31 Hct 30.9 % (37.0-47.0) L 04/10/24 15:31 MCV 95.1 fL (80.0-98.0) 04/10/24 15: MCH 29.8 pg (27.0-33.0) 04/10/24 15: MCHC 31.4 g/dl (31.0-35.0) 04/10/24 15: RDW 16.1 % (11.0-16.0) H 04/10/24 15:31 Plt Count 251 X10*3/uL (160-400) 04/10/24 15:31 MPV 11.2 fL (9.4-12.3) 04/10/24 15:31 Immature Gran % (Auto) 0.5 % (0.0-0.4) H 04/10/24 15:31 Neut % (Auto) 81.6 % (45-73) H 04/10/24 15:31 Lymph % (Auto) 8.6 % (20-40) L 04/10/24 15:31 [place] % (Auto) 8.5 % (2-11) 04/10/24 15:31 Eos % (Auto) 0.5 % (0-4) 04/10/24 15:31 Baso % (Auto) 0.3 % (0-2) 04/10/24 15:31 Lymph # (Auto) 1.0 X10*3/uL (1.2-4.9) L 04/10/24 15:31 [place] # (Auto) 1.0 X10*3/uL (0.1-1.2) 04/10/24 15:31 Eos # (Auto) 0.1 X10*3/uL (0.0-0.4) 04/10/24 15:31 Baso # (Auto) 0.0 X10*3/uL (0.0-0.2) 04/10/24 15:31 Abs Immat Gran (auto) 0.06 X10*3/uL (0.00-0.03) H 04/10/24 15:31 Absolute Neuts (auto) 9.5 x10*3/uL (2.0-8.3) H 04/10/24 15:31 Absolute Nucleated RBC 0.000 X10*3/uL (0.0-0.012) 04/10/24 15:31 Nucleated RBC % (auto) 0.0 /100WBC (0.0-0.2) 04/10/24 15:31 Sodium 139 mmol/L (135-145) 04/10/24 15:31 Potassium 4.3 mmol/L (3.3-5.1) 04/10/24 15:31 Chloride 103 mmol/L (96-108) 04/10/24 15:31 Carbon Dioxide 27 mmol/L (22-29) 04/10/24 15:31 Anion Gap 13 (12-20) 04/10/24 15:31 BUN 15 mg/dL (9-16) 04/10/24 15:31 Creatinine 2.68 mg/dL (0.5-1.4) H 04/10/24 15:31 Estim Creat Clear Calc 19.1 04/10/24 15:31 Estimated GFR 17 04/10/24 15:31 Random Glucose 100 mg/dL (60-115) 04/10/24 15:31 Lactic Acid 1.9 mmol/L (0.5-2.0) 04/10/24 20:32 Calcium 8.5 mg/dL (8.4-10.2) 04/10/24 15:31 Magnesium 1.9 mg/dL (1.6-2.6) 04/10/24 15:31 Total Bilirubin 0.6 mg/dL (0.0-1.0) 04/10/24 15:31 AST 37 U/L (5-31) H 04/10/24 15:31 ALT < 6 U/L (0-31) 04/10/24 15:31 Alkaline Phosphatase 73 U/L (39-117) 04/10/24 15:31 Troponin I High Sens 22.3 ng/L (<3.5-17.0) H 04/10/24 17:37 Total Protein 7.4 g/dL (6.5-8.0) 04/10/24 15: Albumin 2.9 g/dL (3.5-5.0) L 04/10/24 15: Lipase 19 U/L (8-78) 04/10/24 15:31 Influenza Type A (PCR) NEGATIVE (Negative) 04/10/24 15: Influenza Type B (PCR) NEGATIVE (Negative) 04/10/24 15: RSV RNA Qual (PCR) NEGATIVE (Negative) 04/10/24: SARS-CoV-2 RNA (RT-PCR) NEGATIVE (Negative) 04/10/24 15: Assessment and Plan (1) Diverticulitis: Status: Acute She has abdominal pain with a CT scan showing findings consistent with acute sigmoid diverticulitis with a microperforation. There are small locules of extraluminal air near the sigmoid. She is nontoxic looking. Her abdominal exam is benign. She does have a fever but the rest of her vital signs are unremarkable. Her lactate is normal. I would recommend admission for IV antibiotics. She has multiple medical problems. She should be on bowel rest. She is on HD for ESRD and her electrolyes are ok at this time. She is not on anticoagulation. I will follow along closely while she is in the hospital for serial abdominal exams. According to her sister, she had the liver transplant in view of cirrhosis from ETOH abuse. They state that she has had significant steady decline of her health the past several months. She is barely able to ambulate. Procedures Date of Service Date of Service: 04/13/24
--- NOTE | 2024-04-10 22:38 | P.HPHOSP_ITS ---
History of Present Illness Date of Service: 04/10/24 Attending physician on admission: Dolores Cowan Chief Complaint: abd pain, nausea Pt is a 73 yo f with a pmhx significant for ESRD on HD, hx of liver transplant on immunosuppression, CAD, hx of TAVR, and recurrent diverticulitis, who presented to the ED today with LLQ pain and nausea x1-2 days. She has a hx of diverticulitis and feels this is the same. rates the pain 10/10, with bloating. fever of 103.3 measured here. last BM was yesterday, able to pass gas today. has not been able to tolerate much PO and feels dehydrated. she has ESRD on HD Fri, , , last went today. Review of Systems 2 Constitutional: Constitutional: Denies chills, Denies fatigue, Reports fever(s) and Denies headache(s) Eyes: Eyes: Denies change in vision ENT: Denies headache(s), Denies nasal congestion, Denies nasal discharge and Denies sore throat Cardiovascular: Cardiovascular: Denies chest pain, Denies rapid heart rate, Denies leg edema and Denies dyspnea Respiratory: Respiratory: Denies chest congestion, Denies cough, Denies dyspnea and Denies wheezing Gastrointestinal: Gastrointestinal: Reports as per HPI Genitourinary: Genitourinary: Reports other Comments: anuria Musculoskeletal: Musculoskeletal: Reports back pain (radiating from abd) Integumentary/Breasts: Skin/Breast: Denies rash Neurologic: Denies confusion and Denies headache(s) Psychiatric: Psychiatric: Denies confusion Endocrine: Endocrine: Denies fatigue Hematologic/Lymphatic: Hematologic/Lymphatic: Denies easy bleeding and Denies easy bruising Allergic/Immunologic: Allergic/Immunologic: Denies wheezing [facility] Medical History (Updated 04/10/24 @ 22:55 by Padmaja Ruiz PA-C) ESRD (end stage renal disease) on dialysis Congestive heart failure Patient on waiting list for kidney transplant Gout History of transcatheter aortic valve replacement (TAVR) History of blood transfusion GERD (gastroesophageal reflux disease) Anxiety and depression AV fistula Hemodialysis patient COVID-19 vaccine series completed Murmur Hyperkalemia Left inguinal hernia DJD (degenerative joint disease) of thoracic spine Neuropathy End-stage renal disease (ESRD) COPD (chronic obstructive pulmonary disease) Coronary artery disease Bronchitis Asthma Arthritis Anemia Cirrhosis Surgical History Liver transplant recipient H/O thyroidectomy H/O hemorrhoidectomy Hx of spinal surgery H/O heart surgery Hx of colonoscopy History of liver transplant History of surgery on arm Social History Household Members: None Housing: Apartment Are you a primary animal care service worker to a significant other at home: No Do you presently have visiting nurse or other home services: No Unable to assess alcohol history related to: Unable to respond Alcohol intake: never Comment: pt refused bed alarm Patient Tobacco Use Status: Former Tobacco user Tobacco use type: Cigarette Cigarette Packs Per Day: 2 Cigarettes Per Day: 40.0 Years Smoked: 25 Smoked in Last 30 Days: No e-Cigarette/Vaping Use: Never Used Second Hand Smoke Exposure: No Use of substances other than those prescribed or required for medical reasons: No Advance Directives: Yes Advance Directives on File: Yes Advance Directives Date on File: 03/08/20 Do you have a plan to hurt others: No Plan service: No Current occupational status: retired Meds Allergies Allergy/AdvReac Type Severity Reaction Status Date / Time Sulfa (Sulfonamide Allergy Intermediate HIVES Verified 04/10/24 14:57 Antibiotics) Heparin Analogues Allergy Unknown UNKNOWN Verified 04/10/24 14:57 [Heparin Agents] verapamil Allergy Unknown unknown Verified 04/10/24 14:57 Active Medications: Current Medications Acetaminophen (Acetaminophen 325 Mg Tablet) 975 mg PO Q6H PRN PRN Reason: Pain, Mild 1-3,fever,headache Ceftriaxone Sodium (Ceftriaxone Sodium 1 Gm Vial) 1 gm IVPUSH Q24H [facility] Hydromorphone HCl (Hydromorphone Hcl 0.5 Mg/0.5 Ml Syringe) 0.5 mg IVPUSH Q4H PRN; Protocol PRN Reason: Pain, Severe (Pain Scale 7-10) Lactated Ringer's (Lr) 1,000 mls @ 100 mls/hr IVCONT .Q10H [facility] Melatonin (Melatonin 3 Mg Tablet) 6 mg PO BEDTIME PRN PRN Reason: Insomnia Metronidazole (Metronidazole 500 Mg Tablet) 500 mg PO Q8H [facility] Ondansetron HCl (Ondansetron Hcl 4 Mg/2 Ml Vial) 4 mg IVPUSH Q8H PRN PRN Reason: Nausea and Vomiting Polyethylene Glycol (Polyethylene Glycol 3350 17 Gm Powd.Pack) 17 gm PO DAILY PRN PRN Reason: Constipation Tacrolimus (Tacrolimus 0.5 Mg Capsule) 0.5 mg PO BID [facility] Home Medications ?Medication ?Instructions ?Recorded ?Confirmed ?Last Taken ?Type aspirin 81 mg tablet,delayed 81 mg PO DAILY@1200 01/26/20 03/14/24 03/10/24 History release allopurinol 100 mg tablet 100 mg PO DAILY@1200 03/08/20 03/14/24 03/10/24 History cholecalciferol (vitamin D3) 50 1 tab PO DAILY@1200 08/14/20 03/14/24 03/10/24 History mcg (2,000 unit) tablet hydroxyzine HCl 25 mg tablet 1 tab PO TID PRN Itching 08/14/20 03/14/24 04/04/23 History ropinirole 0.5 mg tablet 1 tab PO BEDTIME@2200 08/14/20 03/14/24 03/10/24 History venlafaxine 25 mg tablet 1 tab PO DAILY@1200 08/14/20 03/14/24 03/10/24 History famotidine 20 mg tablet 1 tab PO BID@1200,2200 01/14/22 03/14/24 03/10/24 History rosuvastatin 5 mg tablet 1 tab PO BEDTIME 01/14/22 03/14/24 03/10/24 History levothyroxine 88 mcg tablet 88 mcg PO DAILY@0600 01/20/23 03/14/24 03/10/24 History albuterol sulfate 90 mcg/actuation 1 puff inhalation Q6H PRN 06/09/23 03/14/24 Unknown History aerosol inhaler (Ventolin HFA) Shortness Of Breath Or Wheezing tacrolimus 0.5 mg capsule, 0.5 mg PO BID@1200,2200 07/15/23 03/14/24 03/10/24 History immediate-release folic acid 1 mg tablet 1 mg PO DAILY@1200 02/04/24 03/14/24 03/10/24 History metoprolol tartrate 25 mg tablet 25 mg PO BID@1200,2200 02/04/24 03/14/24 03/10/24 History albuterol sulfate 2.5 mg/3 mL 2.5 mg inhalation Q6H PRN 03/11/24 03/14/24 Unknown History (0.083 %) solution for nebulization Shortness Of Breath Or Wheezing calcium citrate 400 mg PO BID@1200,2200 03/11/24 03/14/24 03/10/24 History Physical Exam 2 Vital Signs and Narrative: Vital Signs: Last Vital Signs Temp 101.1 F H 04/10/24 21:40 Pulse 92 04/10/24 21:40 Resp 18 04/10/24 21:40 BP 118/61 04/10/24 21:40 Pulse Ox 95 04/10/24 21:40 O2 Del Method Room Air 04/10/24 21:40 BMI result Body Mass Index 24.9 General: AOx3, no acute distress Resp: CTA bilaterally CVS: S1, S2, RRR GI: +BS, tender LLQ, no distention Skin: Warm, dry Neuro: Cranial nerves II-XII grossly intact bilaterally. Motor grossly intact bilaterally Extremities: No LE edema Psych: Appropriate affect Const: General: No confusion Orientation/consciousness: No confusion Neuro: General: No confusion Results Labs 04/10/24 15:31 04/10/24 15:31 Labs: Laboratory Results - last 24 hr 04/10/24 04/10/24 04/10/24 15:31 17:37 20:32 MCV 95.1 MCH 29.8 MCHC 31.4 RDW 16.1 H Plt Count 251 MPV 11.2 Immature Gran % (Auto) 0.5 H Neut % (Auto) 81.6 H Lymph % (Auto) 8.6 L [place] % (Auto) 8.5 Eos % (Auto) 0.5 Baso % (Auto) 0.3 Lymph # (Auto) 1.0 L [place] # (Auto) 1.0 Eos # (Auto) 0.1 Baso # (Auto) 0.0 Abs Immat Gran (auto) 0.06 H Absolute Neuts (auto) 9.5 H Absolute Nucleated RBC 0.000 Nucleated RBC % (auto) 0.0 Anion Gap 13 Estim Creat Clear Calc 19.1 Estimated GFR 17 Random Glucose 100 Lactic Acid 1.9 Calcium 8.5 Magnesium 1.9 Total Bilirubin 0.6 AST 37 H ALT < 6 Alkaline Phosphatase 73 Troponin I High Sens 25.0 H 22.3 H Total Protein 7.4 Albumin 2.9 L Lipase 19 Influenza Type A (PCR) NEGATIVE Influenza Type B (PCR) NEGATIVE RSV RNA Qual (PCR) NEGATIVE SARS-CoV-2 RNA (RT-PCR) NEGATIVE Assessment and Plan (1) Sepsis: Status: Acute (2) Diverticulitis: Status: Acute (3) Perforation of sigmoid colon due to diverticulitis: Status: Acute (4) ESRD (end stage renal disease) on dialysis: Status: Chronic Plan Pt is a 73 yo f with a pmhx significant for ESRD on HD, hx of liver transplant on immunosuppression, CAD, hx of TAVR, and recurrent diverticulitis, who presented to the ED today with LLQ pain and nausea x1-[address] with acute diverticultis sigmoid colon with micro perforation. surgery was consulted and suggested admission for abx and monitoring. sepsis secondary to diverticulitis and micro perforation of sigmoid colon - WBC 11.7, fever of 103.3, mild tachycardia, lactic acid normal, blood cultures x2 pending, not severe sepsis - CT with acute sigmoid diverticulitis with localized microperforation small- bowel distention, possible ileus, free fluid in pelvis without fluid collection - started on flagyl and ceftraizone per surgery recommendation, continue - surgery following - GI consult due to recurrent diverticulitis - NPO - monitor CBC and BMP ESRD on HD Sat, - nephrology consult for management during stay, not due until Friday - electrolytes normal - admit to [facility] tele anemia - hemoglobin 9.7, hematocrit 30.9 - no need for transfusion at this time - monitor CBC paroxysmal a fib - continue beta pamela and ASA, not taking anticoagulant GERD - continue PPI hypothyroid - continue levothyroxine hx liver transplant - continue tacrolimus BID full code VTE prophy: pneumoboots, documented heparin allergy Pt with sepsis secondary to diverticultis with micro perforation of the sigmoid colon requring admission for at least 2 midnights say for IV abx and monitoring. Quality Stroke Does the patient have a stroke diagnosis?: No VTE Prior VTE?: No VTE Risk Level:: Medical - moderate - high VTE Device Contraindication: N/A - Device Ordered VTE Drug Contraindication: Drug Allergy
[2024-04-10] MEDS: Tacrolimus 0.5 MG CAPSULE PO (22:41)
[2024-04-10] MEDS: Lactated Ringers 1,000 ML 100 ML IVCONT (23:00)
[2024-04-11] VITALS (12 sets, daily range): BP systolic 133–157; BP diastolic 64–90; PULSE 70–89; RESP 13–18; TEMP 37.3–37.9; O2SAT 92–98
[2024-04-11] MEDS: HYDROmorphone HCl 0.5 MG/0.5 ML SYRINGE IVPUSH ×5 (03:07→21:37)
[2024-04-11] MEDS: ondansetron HCL 4 MG/2 ML VIAL IVPUSH (03:10)
[2024-04-11] MEDS: metroNIDAZOLE/NS 500 MG/100 ML PIGGYBACK 100 MG IV ×3 (05:29→21:36)
--- NOTE | 2024-04-11 05:37 | PC.NURSE ---
Ice packs given to PT, and educated pt on not using many blankets to keep body temp down
--- NOTE | 2024-04-11 05:59 | PC.NURSE ---
provider notified of pt low grade fever. d/t pt's liver transplant and kidney disease, provider advised to treat low grade fever with ice packs and to monitor.
[2024-04-11 06:19] LABS: MANUAL DIFF FLAG NO
[2024-04-11 06:24] LABS: Basophils Percent Auto 0.2 % (0-2); Eosinophils Absolute Auto 0.1 X10*3/uL (0.0-0.4); Eosinophils Percent Auto 0.4 % (0-4); Hematocrit 32.8 % (37.0-47.0); Hemoglobin 10.4 g/dl (12.0-16.0); Imm Gran Abs Auto 0.07 X10*3/uL (0.00-0.03); Imm Gran Pct Auto 0.5 % (0.0-0.4); Lymphocytes Absolute Auto 0.6 X10*3/uL (1.2-4.9); Lymphocytes Percent Auto 4.1 % (20-40); Mean Corpuscular HGB Conc 31.7 g/dl (31.0-35.0); Mean Corpuscular Hemoglobin 30.5 pg (27.0-33.0); Mean Corpuscular Volume 96.2 fL (80.0-98.0); Mean Platelet Volume 11.5 fL (9.4-12.3); Monocytes Absolute Auto 1.2 X10*3/uL (0.1-1.2); Monocytes Percent Auto 7.6 % (2-11); Neutrophils Absolute Auto 13.3 x10*3/uL (2.0-8.3); Neutrophils Percent Auto 87.2 % (45-73); Platelet Count 237 X10*3/uL (160-400); Red Blood Count 3.41 X10*6/uL (4.20-5.50); Red Cell Distribution Width 16.4 % (11.0-16.0); White Blood Count 15.2 X10*3/uL (4.8-10.8)
[2024-04-11 06:39] LABS: Anion Gap 14 (12-20); Blood Urea Nitrogen 24 mg/dL (9-16); Calcium 8.4 mg/dL (8.4-10.2); Carbon Dioxide 25 mmol/L (22-29); Chloride 105 mmol/L (96-108); Creatinine Clr Calc Pharmacy 14.6; Estimated Glomerular Filt Rate 13; Glucose Random 64 mg/dL (60-115); Potassium 4.4 mmol/L (3.3-5.1); Sodium 140 mmol/L (135-145)
[2024-04-11] MEDS: Lactated Ringers 1,000 ML 100 ML IVCONT ×2 (08:19→18:33)
[2024-04-11] MEDS: Tacrolimus 0.5 MG CAPSULE PO ×2 (08:19→22:05)
--- NOTE | 2024-04-11 09:13 | PM.GICN ---
History of Present Illness Data of Consult Service Date: 04/11/24 Requesting physician: Padmaja Ruiz Primary Care Provider: Vanessa Hu MD HPI Reason for consult: Recurrent diverticulitis 73 YF with ESRD on HD, hx of liver transplant on immunosuppression, CAD, hx of TAVR, and recurrent diverticulitis, seen at [facility] [place] 04/10/24 LLQ pain and nausea x1-2 days. Pt has a hx of diverticulitis and reported similar symptoms in the past (pt reports she has had 5 episodes of diverticulitis over the past year) Pt complained of 10/10 abdominal pain associated with bloating and fever of 103.3 measured here. Last BM was on 04/09/24 and she was able to pass some gas on 04/10/24. has not been able to tolerate much PO and feels dehydrated. Pt reports she was admitted to [facility] in May, with diverticulitis and was treated with an enema, Miralax and Colace. She notes she has had 4 additional episodes in Nov (of note no diverticulitis noted on imaging studies obtained during ED visits in the past month) and Dec Complains of lower abdominal pain radiating to the back with intermittent worsening. Patient complains of nausea and denies fever chills sweating or vomiting, heartburn or dysphagia (except dysphagia with swallowing pills). Pt notes she lost 10 lbs and was able to regain it. 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 FERNÁNDEZ: Sigmoid Colon: diverticulsois, at 25 cm from anal verge there was edema and swelling with pale mucosa, I was unable to bypass this area with the scope Rectum: internal hemorrhoids Anorectum - normal Impression and Post Procedure Diagnosis: sigmoid diverticulosis area of edema and stricture possibly from inflammation - Plan: recommend ba enema for further evaluation - which was not performed Review of Systems Review of Systems: Yes all other systems are reviewed and are negative [facility] Past Medical History Medical History (Updated 04/10/24 @ 22:55 by Padmaja Ruiz PA-C) ESRD (end stage renal disease) on dialysis Congestive heart failure Patient on waiting list for kidney transplant Gout History of transcatheter aortic valve replacement (TAVR) History of blood transfusion GERD (gastroesophageal reflux disease) Anxiety and depression AV fistula Hemodialysis patient COVID-19 vaccine series completed Murmur Hyperkalemia Left inguinal hernia DJD (degenerative joint disease) of thoracic spine Neuropathy End-stage renal disease (ESRD) COPD (chronic obstructive pulmonary disease) Coronary artery disease Bronchitis Asthma Arthritis Anemia Cirrhosis Surgical History Surgical History Liver transplant recipient H/O thyroidectomy H/O hemorrhoidectomy Hx of spinal surgery H/O heart surgery Hx of colonoscopy History of liver transplant History of surgery on arm Social History Social History Household Members: None Housing: Apartment Are you a primary care program director to a significant other at home: No Do you presently have visiting nurse or other home services: No Unable to assess alcohol history related to: Unable to respond Alcohol intake: never Comment: pt refused bed alarm Patient Tobacco Use Status: Former Tobacco user Tobacco use type: Cigarette Cigarette Packs Per Day: 2 Cigarettes Per Day: 40.0 Years Smoked: 25 Smoked in Last 30 Days: No e-Cigarette/Vaping Use: Never Used Second Hand Smoke Exposure: No Use of substances other than those prescribed or required for medical reasons: No Advance Directives: Yes Advance Directives on File: Yes Advance Directives Date on File: 03/08/20 Do you have a plan to hurt others: No Plan service: No Current occupational status: retired Meds Allergies Allergy/AdvReac Type Severity Reaction Status Date / Time Sulfa (Sulfonamide Allergy Intermediate HIVES Verified 04/10/24 14:57 Antibiotics) Heparin Analogues Allergy Unknown UNKNOWN Verified 04/10/24 14:57 [Heparin Agents] verapamil Allergy Unknown unknown Verified 04/10/24 14:57 Active Medications: Current Medications Acetaminophen (Acetaminophen 325 Mg Tablet) 975 mg PO Q6H PRN PRN Reason: Pain, Mild 1-3,fever,headache Ceftriaxone Sodium (Ceftriaxone Sodium 1 Gm Vial) 1 gm IVPUSH Q24H [facility] Hydromorphone HCl (Hydromorphone Hcl 0.5 Mg/0.5 Ml Syringe) 0.5 mg IVPUSH Q4H PRN; Protocol PRN Reason: Pain, Severe (Pain Scale 7-10) Last Admin: 04/11/24 07:38 Dose: 0.5 mg Lactated Ringer's (Lr) 1,000 mls @ 100 mls/hr IVCONT .Q10H [facility] Last Admin: 04/11/24 08:19 Dose: 100 mls/hr Metronidazole (Flagyl) 500 mg in 100 mls @ 100 mls/hr IV Q8H [facility] Last Infusion: 04/11/24 07:08 Dose: Infused Melatonin (Melatonin 3 Mg Tablet) 6 mg PO BEDTIME PRN PRN Reason: Insomnia Ondansetron HCl (Ondansetron Hcl 4 Mg/2 Ml Vial) 4 mg IVPUSH Q8H PRN PRN Reason: Nausea and Vomiting Last Admin: 04/11/24 03:10 Dose: 4 mg Polyethylene Glycol (Polyethylene Glycol 3350 17 Gm Powd.Pack) 17 gm PO DAILY PRN PRN Reason: Constipation Tacrolimus (Tacrolimus 0.5 Mg Capsule) 0.5 mg PO BID [facility] Last Admin: 04/11/24 08:19 Dose: 0.5 mg Home Medications ?Medication ?Instructions ?Recorded ?Confirmed ?Last Taken ?Type aspirin 81 mg tablet,delayed 81 mg PO DAILY@119901/26/20 04/11/24 03/10/24 History release allopurinol 100 mg tablet 100 mg PO DAILY@119903/08/20 04/11/24 03/10/24 History cholecalciferol (vitamin D3) 50 1 tab PO DAILY@119908/14/20 04/11/24 03/10/24 History mcg (2,000 unit) tablet hydroxyzine HCl 25 mg tablet 1 tab PO TID PRN Itching 08/14/20 04/11/24 04/04/23 History ropinirole 0.5 mg tablet 1 tab PO BEDTIME@219908/14/20 04/11/24 03/10/24 History venlafaxine 25 mg tablet 1 tab PO DAILY@1200 08/14/20 04/11/24 03/10/24 History famotidine 20 mg tablet 1 tab PO BID@1200,2200 01/14/22 04/11/24 03/10/24 History rosuvastatin 5 mg tablet 1 tab PO BEDTIME 01/14/22 04/11/24 03/10/24 History levothyroxine 88 mcg tablet 88 mcg PO DAILY@0600 01/20/23 04/11/24 03/10/24 History albuterol sulfate 90 mcg/actuation 1 puff inhalation Q6H PRN 06/09/23 04/11/24 Unknown History aerosol inhaler (Ventolin HFA) Shortness Of Breath Or Wheezing tacrolimus 0.5 mg capsule, 0.5 mg PO BID@1200,2200 07/15/23 04/11/24 03/10/24 History immediate-release folic acid 1 mg tablet 1 mg PO DAILY@1200 02/04/24 04/11/24 03/10/24 History metoprolol tartrate 25 mg tablet 25 mg PO BID@1200,2200 02/04/24 04/11/24 03/10/24 History albuterol sulfate 2.5 mg/3 mL 2.5 mg inhalation Q6H PRN 03/11/24 04/11/24 Unknown History (0.083 %) solution for nebulization Shortness Of Breath Or Wheezing calcium citrate 400 mg PO BID@1200,2200 03/11/24 04/11/24 03/10/24 History Physical Exam Vital Signs: Vital Signs: Last Vital Signs Temp 100.3 F 04/11/24 05:21 Pulse 81 04/11/24 08:34 Resp 16 04/11/24 08:34 BP 150/68 H 04/11/24 08:34 Pulse Ox 97 04/11/24 08:34 O2 Del Method Room Air 04/11/24 08:34 BMI result Body Mass Index 24.9 General: AO X 3, no acute distress Resp: CTA bilateral CVS: S1,S2,RRR GI: +BS, lower abd pain Skin: No rash Neuro: motor grossly intact Psych: appropriate affect Const: Other: General: AO X 3, no acute distress Resp: CTA bilateral CVS: S1,S2,RRR GI: +BS, lower abd pain Skin: No rash Neuro: motor grossly intact Psych: appropriate affect Results Labs 04/11/24 05:57 04/11/24 05:57 Labs: Short CBC 04/10/24 04/11/24 Range/Units 15:31 05:57 WBC 11.7 H 15.2 H (4.8-10.8) X10*3/uL Hgb 9.7 L 10.4 L (12.0-16.0) g/dl Hct 30.9 L 32.8 L (37.0-47.0) % Plt Count 251 237 (160-400) X10*3/uL BMP 04/10/24 04/11/24 15:31 05:57 Sodium 139 140 Potassium 4.3 4.4 Chloride 103 105 Carbon Dioxide 27 25 BUN 15 24 H Creatinine 2.68 H 3.49 H Calcium 8.5 8.4 Liver Function 04/10/24 Range/Units 15:31 Total Bilirubin 0.6 (0.0-1.0) mg/dL AST 37 H (5-31) U/L ALT < 6 (0-31) U/L Alkaline Phosphatase 73 (39-117) U/L Albumin 2.9 L (3.5-5.0) g/dL Assessment and Plan (1) Perforation of sigmoid colon due to diverticulitis: Status: Acute (2) Diverticulitis: Status: Acute Plan 73 YF with ESRD on HD, hx of liver transplant on immunosuppression, CAD, hx of TAVR, and recurrent diverticulitis, seen at [facility] [place] 04/10/24 LLQ pain and nausea x1-2 days. Pt has a hx of diverticulitis and reported similar symptoms in the past (pt reports she has had 5 episodes of diverticulitis over the past year) Abd CT scan showed sigmoid diverticulitis with micro perforation RECOMMENDATIONS: 1. Agree with IV antibiotics, pain medications and anti emetics 2. If no improvement in symptoms, agree with surgical management 3. If pt improves, repeat CT scan in 3 days to confirm micro perforation has resolved 4. After microperforation resolves, pt can be switched to PO antibiotics for 3 to 4 weeks to prevent recurrence 5. Miralax twice daily for constipation after pt's acute pain symptoms improve Procedures Date of Service Date of Service: 04/11/24
--- NOTE | 2024-04-11 09:33 | ECG_ITS ---
Test Reason : ABNORMAL RHYTM Blood Pressure : */* mmHG Vent. Rate : 80 BPM Atrial Rate : 80 BPM P-R Int : 202 ms QRS Dur : 88 ms QT Int : 360 ms P-R-T Axes : 42 -26 72 degrees QTcB Int : 415 ms Normal sinus rhythm Normal ECG When compared with ECG of 11-Mar-2024 04:47, OK interval has decreased QRS axis Shifted left T wave inversion no longer evident in Inferior leads T wave inversion now evident in Lateral leads Referred By: Juancho Escalante Electronically Signed By: NEY VIVEROS
--- NOTE | 2024-04-11 09:34 | PC.NURSE ---
Alerted that pt had arrhythmia on monitor, provider updated and sent strip. Pt is alert and oriented, reporting the same abdominal and back pain as before. EKG order placed and vitals assessed.
--- NOTE | 2024-04-11 11:14 | PHA.MEDREC ---
Pharmacy Consult ? Medication Reconciliation Pharmacy has completed the medication reconciliation. Spoke with patient, patient recently discharged, no changes in meds. Dr. Henriquez contacted med rec is complete.
--- NOTE | 2024-04-11 11:17 | PM.PNGS ---
Subjective Subjective Date of Service: 04/11/24 Interval history: States she still has same lower abdominal pain No nausea or vomiting overnight Passing flatus Physical Exam Vital Signs: Vital Signs: Last Vital Signs Temp 99.8 F 04/11/24 09:47 Pulse 82 04/11/24 09:47 Resp 14 04/11/24 09:47 BP 150/71 H 04/11/24 09:47 Pulse Ox 97 04/11/24 09:47 O2 Del Method Room Air 04/11/24 09:47 BMI result Body Mass Index 24.9 Const: General: no acute distress Resp: Effort & Inspection: normal respiratory effort Cardio: Rate: regular rate GI: Inspection: No distended Palpation (GI): Soft to palpation, not firm, Tenderness to palpation present (GI) (Tender in lower abdomen) and no guarding Objective Data Active Medications Acetaminophen (Acetaminophen 325 Mg Tablet) 975 mg PO Q6H PRN PRN Reason: Pain, Mild 1-3,fever,headache Ceftriaxone Sodium (Ceftriaxone Sodium 1 Gm Vial) 1 gm IVPUSH Q24H [facility] Hydromorphone HCl (Hydromorphone Hcl 0.5 Mg/0.5 Ml Syringe) 0.5 mg IVPUSH Q4H PRN; Protocol PRN Reason: Pain, Severe (Pain Scale 7-10) Last Admin: 04/11/24 07:38 Dose: 0.5 mg Documented By: MICHELA Lactated Ringer's (Lr) 1,000 mls @ 100 mls/hr IVCONT .Q10H [facility] Last Admin: 04/11/24 08:19 Dose: 100 mls/hr Documented By: STEVAN Metronidazole (Flagyl) 500 mg in 100 mls @ 100 mls/hr IV Q8H [facility] Last Infusion: 04/11/24 07:08 Dose: Infused Documented By: MICHELA Melatonin (Melatonin 3 Mg Tablet) 6 mg PO BEDTIME PRN PRN Reason: Insomnia Ondansetron HCl (Ondansetron Hcl 4 Mg/2 Ml Vial) 4 mg IVPUSH Q8H PRN PRN Reason: Nausea and Vomiting Last Admin: 04/11/24 03:10 Dose: 4 mg Documented By: MONTESHINE Polyethylene Glycol (Polyethylene Glycol 3350 17 Gm Powd.Pack) 17 gm PO DAILY PRN PRN Reason: Constipation Tacrolimus (Tacrolimus 0.5 Mg Capsule) 0.5 mg PO BID [facility] Last Admin: 04/11/24 08:19 Dose: 0.5 mg Documented By: STEVAN Labs 04/11/24 05:57 04/11/24 05:57 Labs: Laboratory Results - last 24 hr 04/10/24 04/10/24 04/10/24 15:31 17:37 20:32 MCV 95.1 MCH 29.8 MCHC 31.4 RDW 16.1 H Plt Count 251 MPV 11.2 Immature Gran % (Auto) 0.5 H Neut % (Auto) 81.6 H Lymph % (Auto) 8.6 L [place] % (Auto) 8.5 Eos % (Auto) 0.5 Baso % (Auto) 0.3 Lymph # (Auto) 1.0 L [place] # (Auto) 1.0 Eos # (Auto) 0.1 Baso # (Auto) 0.0 Abs Immat Gran (auto) 0.06 H Absolute Neuts (auto) 9.5 H Absolute Nucleated RBC 0.000 Nucleated RBC % (auto) 0.0 Anion Gap 13 Estim Creat Clear Calc 19.1 Estimated GFR 17 Random Glucose 100 Lactic Acid 1.9 Calcium 8.5 Magnesium 1.9 Total Bilirubin 0.6 AST 37 H ALT < 6 Alkaline Phosphatase 73 Troponin I High Sens 25.0 H 22.3 H Total Protein 7.4 Albumin 2.9 L Lipase 19 Influenza Type A (PCR) NEGATIVE Influenza Type B (PCR) NEGATIVE RSV RNA Qual (PCR) NEGATIVE SARS-CoV-2 RNA (RT-PCR) NEGATIVE 04/11/24 05:57 MCV 96.2 MCH 30.5 MCHC 31.7 RDW 16.4 H Plt Count 237 MPV 11.5 Immature Gran % (Auto) 0.5 H Neut % (Auto) 87.2 H Lymph % (Auto) 4.1 L [place] % (Auto) 7.6 Eos % (Auto) 0.4 Baso % (Auto) 0.2 Lymph # (Auto) 0.6 L [place] # (Auto) 1.2 Eos # (Auto) 0.1 Baso # (Auto) 0.0 Abs Immat Gran (auto) 0.07 H Absolute Neuts (auto) 13.3 H Absolute Nucleated RBC 0.000 Nucleated RBC % (auto) 0.0 Anion Gap 14 Estim Creat Clear Calc 14.6 Estimated GFR 13 Random Glucose 64 Lactic Acid Calcium 8.4 Magnesium Total Bilirubin AST ALT Alkaline Phosphatase Troponin I High Sens Total Protein Albumin Lipase Influenza Type A (PCR) Influenza Type B (PCR) RSV RNA Qual (PCR) SARS-CoV-2 RNA (RT-PCR) Procedures Date of Service Date of Service: 04/11/24 Progress Note: A&P Assessment and plan (1) Diverticulitis: Status: Acute Assessment and Plan: With microperforation Fever pattern seems better However, she still has tenderness WBC elevated Exam remains benign Non septic looking I told her that if she does not improve in the next 24-48 hours, we may have to do laparotomy and resection and colostomy She does have multiple medical problems and presents with significant perioperative risks We will continue to follow closely Continue IV antibiotics Time Spent With Patient Time: Total time managing care of this patient today ____ minutes. Quality Stroke Does the patient have a stroke diagnosis?: No VTE Prior VTE?: No VTE Risk Level:: Medical - moderate - high VTE Device Contraindication: N/A - Device Ordered VTE Drug Contraindication: Drug Allergy
--- NOTE | 2024-04-11 11:17 | HO.PM.IMPN ---
Subjective Subjective Date of Service: 04/11/24 Interval History: seen in f/u for abdominal pain d/t acute diverticulitis interval history: abdominal pain persists Physical Exam Vital Signs: Vital Signs: Last Vital Signs Temp 99.8 F 04/11/24 09:47 Pulse 82 04/11/24 09:47 Resp 14 04/11/24 09:47 BP 150/71 H 04/11/24 09:47 Pulse Ox 97 04/11/24 09:47 O2 Del Method Room Air 04/11/24 09:47 BMI result Body Mass Index 24.9 General: AO X 3, no acute distress Resp: CTA bilateral CVS: S1,S2,RRR GI: +BS, lower abd pain Skin: No rash Neuro: motor grossly intact Psych: appropriate affect Objective Data Active Medications Acetaminophen (Acetaminophen 325 Mg Tablet) 975 mg PO Q6H PRN PRN Reason: Pain, Mild 1-3,fever,headache Ceftriaxone Sodium (Ceftriaxone Sodium 1 Gm Vial) 1 gm IVPUSH Q24H [facility] Hydromorphone HCl (Hydromorphone Hcl 0.5 Mg/0.5 Ml Syringe) 0.5 mg IVPUSH Q4H PRN; Protocol PRN Reason: Pain, Severe (Pain Scale 7-10) Last Admin: 04/11/24 07:38 Dose: 0.5 mg Documented By: MICHELA Lactated Ringer's (Lr) 1,000 mls @ 100 mls/hr IVCONT .Q10H [facility] Last Admin: 04/11/24 08:19 Dose: 100 mls/hr Documented By: STEVAN Metronidazole (Flagyl) 500 mg in 100 mls @ 100 mls/hr IV Q8H [facility] Last Infusion: 04/11/24 07:08 Dose: Infused Documented By: MICHELA Melatonin (Melatonin 3 Mg Tablet) 6 mg PO BEDTIME PRN PRN Reason: Insomnia Ondansetron HCl (Ondansetron Hcl 4 Mg/2 Ml Vial) 4 mg IVPUSH Q8H PRN PRN Reason: Nausea and Vomiting Last Admin: 04/11/24 03:10 Dose: 4 mg Documented By: MONTESHINE Polyethylene Glycol (Polyethylene Glycol 3350 17 Gm Powd.Pack) 17 gm PO DAILY PRN PRN Reason: Constipation Tacrolimus (Tacrolimus 0.5 Mg Capsule) 0.5 mg PO BID [facility] Last Admin: 04/11/24 08:19 Dose: 0.5 mg Documented By: STEVAN Labs 04/11/24 05:57 04/11/24 05:57 Labs: Laboratory Results - last 24 hr 04/10/24 04/10/24 04/10/24 15:31 17:37 20:32 MCV 95.1 MCH 29.8 MCHC 31.4 RDW 16.1 H Plt Count 251 MPV 11.2 Immature Gran % (Auto) 0.5 H Neut % (Auto) 81.6 H Lymph % (Auto) 8.6 L [place] % (Auto) 8.5 Eos % (Auto) 0.5 Baso % (Auto) 0.3 Lymph # (Auto) 1.0 L [place] # (Auto) 1.0 Eos # (Auto) 0.1 Baso # (Auto) 0.0 Abs Immat Gran (auto) 0.06 H Absolute Neuts (auto) 9.5 H Absolute Nucleated RBC 0.000 Nucleated RBC % (auto) 0.0 Anion Gap 13 Estim Creat Clear Calc 19.1 Estimated GFR 17 Random Glucose 100 Lactic Acid 1.9 Calcium 8.5 Magnesium 1.9 Total Bilirubin 0.6 AST 37 H ALT < 6 Alkaline Phosphatase 73 Troponin I High Sens 25.0 H 22.3 H Total Protein 7.4 Albumin 2.9 L Lipase 19 Influenza Type A (PCR) NEGATIVE Influenza Type B (PCR) NEGATIVE RSV RNA Qual (PCR) NEGATIVE SARS-CoV-2 RNA (RT-PCR) NEGATIVE 04/11/24 05:57 MCV 96.2 MCH 30.5 MCHC 31.7 RDW 16.4 H Plt Count 237 MPV 11.5 Immature Gran % (Auto) 0.5 H Neut % (Auto) 87.2 H Lymph % (Auto) 4.1 L [place] % (Auto) 7.6 Eos % (Auto) 0.4 Baso % (Auto) 0.2 Lymph # (Auto) 0.6 L [place] # (Auto) 1.2 Eos # (Auto) 0.1 Baso # (Auto) 0.0 Abs Immat Gran (auto) 0.07 H Absolute Neuts (auto) 13.3 H Absolute Nucleated RBC 0.000 Nucleated RBC % (auto) 0.0 Anion Gap 14 Estim Creat Clear Calc 14.6 Estimated GFR 13 Random Glucose 64 Lactic Acid Calcium 8.4 Magnesium Total Bilirubin AST ALT Alkaline Phosphatase Troponin I High Sens Total Protein Albumin Lipase Influenza Type A (PCR) Influenza Type B (PCR) RSV RNA Qual (PCR) SARS-CoV-2 RNA (RT-PCR) Assessment and Plan (1) ESRD (end stage renal disease) on dialysis: Status: Chronic (2) Perforation of sigmoid colon due to diverticulitis: Status: Acute (3) Diverticulitis: Status: Acute Plan 73 yo f with a pmhx significant for ESRD on HD, hx of liver transplant on immunosuppression, CAD, hx of TAVR, and recurrent diverticulitis, who presented to the ED today with LLQ pain and nausea x1-[address] with acute diverticultis sigmoid colon with micro perforation. surgery was consulted and suggested admission for abx and monitoring. sepsis secondary to diverticulitis and micro perforation of sigmoid colon - WBC 11.7, fever of 103.3, mild tachycardia, lactic acid normal, blood cultures x2 pending, not severe sepsis - CT with acute sigmoid diverticulitis with localized microperforation small-bowel distention, possible ileus, free fluid in pelvis without fluid collection - started on flagyl and ceftraizone per surgery recommendation, continue - surgery consult - GI consult due to recurrent diverticulitis - NPO - monitor CBC and BMP ESRD on HD Fri, - nephrology consult for management during stay, not due until Friday - electrolytes normal - admit to med tele anemia - hemoglobin 9.7, hematocrit 30.9 - no need for transfusion at this time - monitor CBC paroxysmal a fib - continue beta pamela and ASA, not taking anticoagulant GERD - continue PPI hypothyroid - continue levothyroxine hx liver transplant - continue tacrolimus BID full code VTE prophy: pneumoboots, documented heparin allergy need for inpt: perforated diverticulitis Quality Stroke Does the patient have a stroke diagnosis?: No VTE Prior VTE?: No VTE Risk Level:: Medical - moderate - high VTE Device Contraindication: N/A - Device Ordered VTE Drug Contraindication: Drug Allergy
[2024-04-11] MEDS: Levothyroxine Sodium 88 MCG TABLET PO (11:58)
[2024-04-11] MEDS: Folic Acid 1 MG TABLET PO (11:59)
[2024-04-11] MEDS: Famotidine 20 MG TABLET PO ×2 (11:59→21:36)
[2024-04-11] MEDS: Aspirin Enteric Coated 81 MG TABLET.DR PO (11:59)
[2024-04-11] MEDS: allopurinoL 100 MG TABLET PO (12:00)
[2024-04-11] MEDS: Metoprolol Tartrate 25 MG TABLET PO ×2 (12:00→21:36)
[2024-04-11] MEDS: Cholecalciferol (Vitamin D3) 25 MCG TABLET 50 MCG PO (12:00)
[2024-04-11] MEDS: Venlafaxine HCL 25 MG TABLET PO (12:01)
--- NOTE | 2024-04-11 14:47 | PC.NURSE ---
Pt has been resting in bed, intermittent requests pain meds. medicated per MAR
--- NOTE | 2024-04-11 15:17 | PM.EVENT ---
Event Note Date of Service: 04/12/24 Event Note: Seen on afternoon rounds Says she is ?okay? Still has lower abdominal pain although she thinks this may be a little better She appears comfortable Abdomen remains tender but soft and benign Continue IV antibiotics Re-evaluate in the morning Follow CBC Possibly repeat the CT scan depending on clinical exam Time Spent With Patient Time: Total time managing care of this patient today ____ minutes.
--- NOTE | 2024-04-11 18:18 | PC.NURSE ---
Hospitalist reported to hold off on meds for fever and monitor closely.
[2024-04-11] MEDS: cefTRIAXone sodium 1 GM VIAL IVPUSH (21:00)
[2024-04-11] MEDS: Atorvastatin Calcium 20 MG TABLET PO (21:36)
[2024-04-11] MEDS: rOPINIRole HCL 0.5 MG TABLET PO (22:05)
[2024-04-12] VITALS (9 sets, daily range): BP systolic 107–161; BP diastolic 56–76; PULSE 74–108; RESP 16–20; TEMP 36.6–38.4; O2SAT 95–99; BMI 24.1
--- NOTE | 2024-04-12 03:11 | PC.NURSE ---
assist pt with cleaning dentures, warm blanket given
[2024-04-12] MEDS: Lactated Ringers 1,000 ML 100 ML IVCONT (05:09)
[2024-04-12 05:26] LABS: MANUAL DIFF FLAG NO
[2024-04-12 05:30] LABS: Basophils Percent Auto 0.2 % (0-2); Eosinophils Percent Auto 0.2 % (0-4); Hematocrit 26.7 % (37.0-47.0); Hemoglobin 8.6 g/dl (12.0-16.0); Imm Gran Pct Auto 0.8 % (0.0-0.4); Lymphocytes Absolute Auto 0.8 X10*3/uL (1.2-4.9); Lymphocytes Percent Auto 6.2 % (20-40); Mean Corpuscular HGB Conc 32.2 g/dl (31.0-35.0); Mean Corpuscular Hemoglobin 30.4 pg (27.0-33.0); Mean Corpuscular Volume 94.3 fL (80.0-98.0); Mean Platelet Volume 11.4 fL (9.4-12.3); Monocytes Absolute Auto 1.3 X10*3/uL (0.1-1.2); Monocytes Percent Auto 10.4 % (2-11); Neutrophils Absolute Auto 10.1 x10*3/uL (2.0-8.3); Neutrophils Percent Auto 82.2 % (45-73); Platelet Count 231 X10*3/uL (160-400); Red Blood Count 2.83 X10*6/uL (4.20-5.50); Red Cell Distribution Width 15.9 % (11.0-16.0); White Blood Count 12.4 X10*3/uL (4.8-10.8)
[2024-04-12] MEDS: metroNIDAZOLE/NS 500 MG/100 ML PIGGYBACK 100 MG IV ×3 (05:36→20:10)
[2024-04-12] MEDS: HYDROmorphone HCl 0.5 MG/0.5 ML SYRINGE IVPUSH ×3 (05:47→19:33)
[2024-04-12 05:48] LABS: Anion Gap 16 (12-20); Blood Urea Nitrogen 41 mg/dL (9-16); Calcium 7.8 mg/dL (8.4-10.2); Carbon Dioxide 22 mmol/L (22-29); Chloride 100 mmol/L (96-108); Creatinine Clr Calc Pharmacy 10.7; Estimated Glomerular Filt Rate 9; Glucose Random 45 mg/dL (60-115); Potassium 4.4 mmol/L (3.3-5.1); Sodium 134 mmol/L (135-145)
[2024-04-12] MEDS: Levothyroxine Sodium 88 MCG TABLET PO (05:48)
--- NOTE | 2024-04-12 06:41 | PC.NURSE ---
critical labs: glucose 45, creatinine 4.76 pt NPO, per provider given juice
[2024-04-12 06:45] LABS: Glucose, Whole Blood 68 mg/dL (60-115)
[2024-04-12] MEDS: Dextrose 5 % and 0.45 % NaCl 1,000 ML 100 ML IVCONT (07:12)
--- NOTE | 2024-04-12 08:05 | P.PNGS_ITS ---
Subjective Subjective Date of Service: 04/13/24 Interval history: States she feels okay Had temperature this morning otherwise no fever overnight Says she still has lower abdominal pain when she moves No nausea or vomiting Physical Exam 2 Vital Signs: Vital Signs: Last Vital Signs Temp 101.2 F H 04/12/24 06:00 Pulse 76 04/12/24 06:00 Resp 16 04/12/24 06:00 BP 147/70 H 04/12/24 06:00 Pulse Ox 96 04/12/24 06:00 O2 Del Method Room Air 04/12/24 06:00 BMI result Body Mass Index 24.9 Const: General: comfortable and no acute distress Resp: Effort & Inspection: normal respiratory effort Cardio: Rate: regular rate GI: Other: Tender mostly in the lower abdomen with no guarding or rebound Palpation (GI): Soft to palpation Objective Data Active Medications Acetaminophen (Acetaminophen 325 Mg Tablet) 975 mg PO Q6H PRN PRN Reason: Pain, Mild 1-3,fever,headache Albuterol Sulfate (Albuterol Sulfate (0.083%) 2.5 Mg/3 Ml Vial.Neb) 2.5 mg INHALE Q6H PRN PRN Reason: Shortness Of Breath Or Wheezing Albuterol Sulfate (Albuterol Sulfate 90 Mcg 8 Gm Inhaler) 1 puff INHALE Q6H PRN PRN Reason: Shortness Of Breath Or Wheezing Allopurinol (Allopurinol 100 Mg Tablet) 100 mg PO DAILY@1200 [facility] Last Admin: 04/11/24 12:00 Dose: 100 mg Documented By: MICHELA Aspirin (Aspirin Enteric Coated 81 Mg Tablet.) 81 mg PO DAILY@1200 [facility] Last Admin: 04/11/24 11:59 Dose: 81 mg Documented By: MICHELA Atorvastatin Calcium (Atorvastatin Calcium 20 Mg Tablet) 20 mg PO BEDTIME [facility] Last Admin: 04/11/24 21:36 Dose: 20 mg Documented By: ELISSA Ceftriaxone Sodium (Ceftriaxone Sodium 1 Gm Vial) 1 gm IVPUSH Q24H [facility] Last Admin: 04/11/24 21:00 Dose: 1 gm Documented By: ELISSA Famotidine (Famotidine 20 Mg Tablet) 20 mg PO BID@1200,2200 [facility] Last Admin: 04/11/24 21:36 Dose: 20 mg Documented By: ELISSA Folic Acid (Folic Acid 1 Mg Tablet) 1 mg PO DAILY@1200 [facility] Last Admin: 04/11/24 11:59 Dose: 1 mg Documented By: MICHELA Glucose (Glucose Gel 15 Gm Gel..Gram.) 15 gm PO Q15M PRN; Protocol PRN Reason: per Hypoglycemia Standing Ord. Hydromorphone HCl (Hydromorphone Hcl 0.5 Mg/0.5 Ml Syringe) 0.5 mg IVPUSH Q4H PRN; Protocol PRN Reason: Pain, Severe (Pain Scale 7-10) Last Admin: 04/12/24 05:47 Dose: 0.5 mg Documented By: ELISSA Hydroxyzine HCl (Hydroxyzine Hcl 25 Mg Tablet) 25 mg PO TID PRN PRN Reason: Itching Metronidazole (Flagyl) 500 mg in 100 mls @ 100 mls/hr IV Q8H [facility] Last Infusion: 04/12/24 06:38 Dose: Infused Documented By: ELISSA Dextrose (D10) 250 mls @ 750 mls/hr IV Q15M PRN; Protocol PRN Reason: per Hypoglycemia Standing Ord. Dextrose/Sodium Chloride (D51/2ns) 1,000 mls @ 100 mls/hr IVCONT .Q10H [facility] Last Admin: 04/12/24 07:12 Dose: 100 mls/hr Documented By: MICHELA Levothyroxine Sodium (Levothyroxine Sodium 88 Mcg Tablet) 88 mcg PO DAILY@0600 [facility] Last Admin: 04/12/24 05:48 Dose: 88 mcg Documented By: ELISSA Melatonin (Melatonin 3 Mg Tablet) 6 mg PO BEDTIME PRN PRN Reason: Insomnia Metoprolol Tartrate (Metoprolol Tartrate 25 Mg Tablet) 25 mg PO BID@1200,2200 [facility]; Protocol Last Admin: 04/11/24 21:36 Dose: 25 mg Documented By: ELISSA Ondansetron HCl (Ondansetron Hcl 4 Mg/2 Ml Vial) 4 mg IVPUSH Q8H PRN PRN Reason: Nausea and Vomiting Last Admin: 04/11/24 03:10 Dose: 4 mg Documented By: CHEPE Polyethylene Glycol (Polyethylene Glycol 3350 17 Gm Powd.Pack) 17 gm PO DAILY PRN PRN Reason: Constipation Ropinirole HCl (Ropinirole Hcl 0.5 Mg Tablet) 0.5 mg PO BEDTIME@2200 [facility] Last Admin: 04/11/24 22:05 Dose: 0.5 mg Documented By: ELISSA Tacrolimus (Tacrolimus 0.5 Mg Capsule) 0.5 mg PO BID [facility] Last Admin: 04/11/24 22:05 Dose: 0.5 mg Documented By: ELISSA Venlafaxine HCl (Venlafaxine Hcl 25 Mg Tablet) 25 mg PO DAILY@1200 [facility] Last Admin: 04/11/24 12:01 Dose: 25 mg Documented By: MICHELA Vitamin D (Cholecalciferol (Vitamin D3) 25 Mcg Tablet) 50 mcg PO DAILY@1200 [facility] Last Admin: 04/11/24 12:00 Dose: 50 mcg Documented By: MICHELA Labs 04/13/24 05:58 04/13/24 05:58 Labs: Laboratory Results - last 24 hr 04/11/24 04/12/24 04/12/24 05:57 04:54 06:41 MCV 94.3 MCH 30.4 MCHC 32.2 RDW 15.9 Plt Count 231 MPV 11.4 Immature Gran % (Auto) 0.8 H Neut % (Auto) 82.2 H Lymph % (Auto) 6.2 L [place] % (Auto) 10.4 Eos % (Auto) 0.2 Baso % (Auto) 0.2 Lymph # (Auto) 0.8 L [place] # (Auto) 1.3 H Eos # (Auto) 0.0 Baso # (Auto) 0.0 Abs Immat Gran (auto) 0.10 H Absolute Neuts (auto) 10.1 H Absolute Nucleated RBC 0.000 Nucleated RBC % (auto) 0.0 Anion Gap 16 Estim Creat Clear Calc 10.7 Estimated GFR 9 POC Glucose 68 Random Glucose 45 L* Calcium 7.8 L D Magnesium 2.0 Microbiology Microbiology Results: Microbiology 04/10/24 20:35 Blood Culture - Preliminary Blood - Venous No growth after 24 hours. 04/10/24 20:32 Blood Culture - Preliminary Blood - Venous No growth after 24 hours. 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 Quality Stroke Does the patient have a stroke diagnosis?: No VTE Prior VTE?: No VTE Risk Level:: Medical - moderate - high VTE Device Contraindication: N/A - Device Ordered VTE Drug Contraindication: Drug Allergy
[2024-04-12] MEDS: Tacrolimus 0.5 MG CAPSULE PO ×2 (09:19→22:01)
[2024-04-12] MEDS: Aspirin Enteric Coated 81 MG TABLET.DR PO (11:35)
[2024-04-12] MEDS: allopurinoL 100 MG TABLET PO (11:35)
[2024-04-12] MEDS: Cholecalciferol (Vitamin D3) 25 MCG TABLET 50 MCG PO (11:35)
[2024-04-12] MEDS: Famotidine 20 MG TABLET PO ×2 (11:36→21:59)
[2024-04-12] MEDS: Folic Acid 1 MG TABLET PO (11:36)
[2024-04-12] MEDS: Metoprolol Tartrate 25 MG TABLET PO ×2 (11:36→21:59)
[2024-04-12] MEDS: Venlafaxine HCL 25 MG TABLET PO (11:39)
--- NOTE | 2024-04-12 11:57 | PC.NURSE ---
Pt taken to dialysis
--- NOTE | 2024-04-12 12:09 | HO.PM.IMPN ---
Subjective Subjective Date of Service: 04/12/24 Interval History: seen in f/u for abdominal pain d/t acute diverticulitis persistent abdominal pain and feels horrible. Fever or 101 this morning Physical Exam Vital Signs: Vital Signs: Last Vital Signs Temp 98.3 F 04/12/24 10:57 Pulse 100 04/12/24 11:36 Resp 18 04/12/24 10:57 BP 141/76 H 04/12/24 11:36 Pulse Ox 99 04/12/24 10:57 O2 Del Method Room Air 04/12/24 10:57 BMI result Body Mass Index 24.9 Const: Other: General: AO X 3, no acute distress Resp: CTA bilateral CVS: S1,S2,RRR GI: +BS tender to mild touch, no distention Skin: No rash Neuro: motor grossly intact Psych: appropriate affect Objective Data Active Medications Acetaminophen (Acetaminophen 325 Mg Tablet) 975 mg PO Q6H PRN PRN Reason: Pain, Mild 1-3,fever,headache Albuterol Sulfate (Albuterol Sulfate (0.083%) 2.5 Mg/3 Ml Vial.Neb) 2.5 mg INHALE Q6H PRN PRN Reason: Shortness Of Breath Or Wheezing Albuterol Sulfate (Albuterol Sulfate 90 Mcg 8 Gm Inhaler) 1 puff INHALE Q6H PRN PRN Reason: Shortness Of Breath Or Wheezing Allopurinol (Allopurinol 100 Mg Tablet) 100 mg PO DAILY@1200 [facility] Last Admin: 04/12/24 11:35 Dose: 100 mg Documented By: MICHELA Aspirin (Aspirin Enteric Coated 81 Mg Tablet.) 81 mg PO DAILY@1200 [facility] Last Admin: 04/12/24 11:35 Dose: 81 mg Documented By: MICHELA Atorvastatin Calcium (Atorvastatin Calcium 20 Mg Tablet) 20 mg PO BEDTIME [facility] Last Admin: 04/11/24 21:36 Dose: 20 mg Documented By: ELISSA Ceftriaxone Sodium (Ceftriaxone Sodium 1 Gm Vial) 1 gm IVPUSH Q24H [facility] Last Admin: 04/11/24 21:00 Dose: 1 gm Documented By: ELISSA Famotidine (Famotidine 20 Mg Tablet) 20 mg PO BID@1200,2200 [facility] Last Admin: 04/12/24 11:36 Dose: 20 mg Documented By: MICHELA Folic Acid (Folic Acid 1 Mg Tablet) 1 mg PO DAILY@1200 [facility] Last Admin: 04/12/24 11:36 Dose: 1 mg Documented By: MICHELA Glucose (Glucose Gel 15 Gm Gel..Gram.) 15 gm PO Q15M PRN; Protocol PRN Reason: per Hypoglycemia Standing Ord. Hydromorphone HCl (Hydromorphone Hcl 0.5 Mg/0.5 Ml Syringe) 0.5 mg IVPUSH Q4H PRN; Protocol PRN Reason: Pain, Severe (Pain Scale 7-10) Last Admin: 04/12/24 05:47 Dose: 0.5 mg Documented By: ELISSA Hydroxyzine HCl (Hydroxyzine Hcl 25 Mg Tablet) 25 mg PO TID PRN PRN Reason: Itching Metronidazole (Flagyl) 500 mg in 100 mls @ 100 mls/hr IV Q8H [facility] Last Infusion: 04/12/24 06:38 Dose: Infused Documented By: ELISSA Dextrose (D10) 250 mls @ 750 mls/hr IV Q15M PRN; Protocol PRN Reason: per Hypoglycemia Standing Ord. Dextrose/Sodium Chloride (D51/2ns) 1,000 mls @ 100 mls/hr IVCONT .Q10H [facility] Last Admin: 04/12/24 07:12 Dose: 100 mls/hr Documented By: MICHELA Levothyroxine Sodium (Levothyroxine Sodium 88 Mcg Tablet) 88 mcg PO DAILY@0600 [facility] Last Admin: 04/12/24 05:48 Dose: 88 mcg Documented By: ELISSA Melatonin (Melatonin 3 Mg Tablet) 6 mg PO BEDTIME PRN PRN Reason: Insomnia Metoprolol Tartrate (Metoprolol Tartrate 25 Mg Tablet) 25 mg PO BID@1200,2200 [facility]; Protocol Last Admin: 04/12/24 11:36 Dose: 25 mg Documented By: MICHELA Ondansetron HCl (Ondansetron Hcl 4 Mg/2 Ml Vial) 4 mg IVPUSH Q8H PRN PRN Reason: Nausea and Vomiting Last Admin: 04/11/24 03:10 Dose: 4 mg Documented By: MONTESHINE Polyethylene Glycol (Polyethylene Glycol 3350 17 Gm Powd.Pack) 17 gm PO DAILY PRN PRN Reason: Constipation Ropinirole HCl (Ropinirole Hcl 0.5 Mg Tablet) 0.5 mg PO BEDTIME@2200 [facility] Last Admin: 04/11/24 22:05 Dose: 0.5 mg Documented By: ELISSA Tacrolimus (Tacrolimus 0.5 Mg Capsule) 0.5 mg PO BID [facility] Last Admin: 04/12/24 09:19 Dose: 0.5 mg Documented By: PALLAVI Venlafaxine HCl (Venlafaxine Hcl 25 Mg Tablet) 25 mg PO DAILY@1200 [facility] Last Admin: 04/12/24 11:39 Dose: 25 mg Documented By: MICHELA Vitamin D (Cholecalciferol (Vitamin D3) 25 Mcg Tablet) 50 mcg PO DAILY@1200 [facility] Last Admin: 04/12/24 11:35 Dose: 50 mcg Documented By: MICHELA Labs 04/12/24 04:54 04/12/24 04:54 Labs: Laboratory Results - last 24 hr 04/12/24 04/12/24 04:54 06:41 MCV 94.3 MCH 30.4 MCHC 32.2 RDW 15.9 Plt Count 231 MPV 11.4 Immature Gran % (Auto) 0.8 H Neut % (Auto) 82.2 H Lymph % (Auto) 6.2 L [place] % (Auto) 10.4 Eos % (Auto) 0.2 Baso % (Auto) 0.2 Lymph # (Auto) 0.8 L [place] # (Auto) 1.3 H Eos # (Auto) 0.0 Baso # (Auto) 0.0 Abs Immat Gran (auto) 0.10 H Absolute Neuts (auto) 10.1 H Absolute Nucleated RBC 0.000 Nucleated RBC % (auto) 0.0 Anion Gap 16 Estim Creat Clear Calc 10.7 Estimated GFR 9 POC Glucose 68 Random Glucose 45 L* Calcium 7.8 L D Microbiology Microbiology Results: Microbiology 04/10/24 20:35 Blood Culture - Preliminary Blood - Venous No growth after 24 hours. 04/10/24 20:32 Blood Culture - Preliminary Blood - Venous No growth after 24 hours. Assessment and Plan (1) ESRD (end stage renal disease) on dialysis: Status: Chronic (2) Perforation of sigmoid colon due to diverticulitis: Status: Acute (3) Diverticulitis: Status: Acute Plan 73 yo f with a pmhx significant for ESRD on HD, hx of liver transplant on immunosuppression, CAD, hx of TAVR, and recurrent diverticulitis, who presented to the ED today with LLQ pain and nausea x1-[address] with acute diverticultis sigmoid colon with micro perforation. surgery was consulted and suggested admission for abx and monitoring. sepsis secondary to diverticulitis and micro perforation of sigmoid colon - WBC higher at 12, fever of 101 this morning, mild tachycardia, lactic acid normal, blood cultures negaitive so far - CT with acute sigmoid diverticulitis with localized microperforation small-bowel distention, possible ileus, free fluid in pelvis without fluid collection - started on flagyl and ceftraizone - surgery consult considering colectomy -NPO for now, IVF with glucose -at risk for post op complication and would give icu headsup ESRD on HD Fri, --HD today for surgery tomorrow - nephrology consult for management during stay, not due until Friday - electrolytes normal anemia - hemoglobin 9.7, hematocrit 30.9 - no need for transfusion at this time - monitor CBC paroxysmal a fib - continue beta pamela and ASA, not taking anticoagulant GERD - continue PPI hypothyroid - continue levothyroxine hx liver transplant - continue tacrolimus BID full code VTE prophy: pneumoboots, documented heparin allergy need for inpt: perforated diverticulitis Quality Stroke Does the patient have a stroke diagnosis?: No VTE Prior VTE?: No VTE Risk Level:: Medical - moderate - high VTE Device Contraindication: N/A - Device Ordered VTE Drug Contraindication: Drug Allergy
--- NOTE | 2024-04-12 13:51 | MHC.CM.PN ---
CM met with Patient at bedside, in HD, and addressed IMM with her (original was given to Patient and a copy has been placed on the chart). Patient lives alone in an apartment, uses a walker to assist with mobility, and is active with [facility]. Patient receives her HD at [facility]. Home/resume said services is the goal and CM has initiated and will follow for dc planning. PCP is Dr. Vanessa Hu and Patient will require S transport to home.
--- NOTE | 2024-04-12 15:40 | PM.EVENT ---
Event Note Date of Service: 04/13/24 Event Note: Patient undergoing hemodialysis I had a long discussion with her it does not appear that her abdominal pain is improving She has had multiple admission an episode the past year I explained to her that because of her being on immuno suppression she will likely require resection for resolution of her diverticulitis/inflammation I explained to her the option of proceeding with hand assisted laparoscopic sigmoid resection with a stoma I reviewed the risks including but not limited to bleeding, infections, injury to other organs including bowel and the urinary tract, stoma complications, NC, pneumonia, respiratory failure She understands that she presents with significant perioperative risks in view of her overall frailty, multiple medical problems She says she has been bed-bound practically for the past 2-3 months She is very hesitant to proceed with surgery but she says she will think about it tonight I had involved her sister with the discussion I have put her on the schedule for tomorrow Time Spent With Patient Time: Total time managing care of this patient today ____ minutes.
[2024-04-12] MEDS: Piperacillin Sodium/Tazobactam 2.25 GM in 0.9 % Sodium Chloride 50 ML IV (17:38)
--- NOTE | 2024-04-12 18:10 | PC.NURSE ---
assumed care of patient at 1630, patient noted to be febrile, inpatient attending made aware that patient had tylenol ordered and patient states she can not take tylenol and motrin due to her liver transplant. attending advised to give motrin if temp rises above 101 with limit. patient given zosyn IV per provider order, patient is now afebrile. patient is awake and alert, patient orientation fluctuates, sister at bedside states this is normal. patient has D5 1/2 NS at 100ml/hr.
[2024-04-12] MEDS: Melatonin 3 MG TABLET 6 MG PO (21:59)
[2024-04-12] MEDS: rOPINIRole HCL 0.5 MG TABLET PO (21:59)
[2024-04-12] MEDS: Atorvastatin Calcium 20 MG TABLET PO (21:59)
[2024-04-13] VITALS (31 sets, daily range): BP systolic 77–150; BP diastolic 17–60; PULSE 50–101; RESP 16–37; TEMP 36.2–37.2; O2SAT 95–100
--- NOTE | 2024-04-13 | ECG_ITS ---
Test Reason : ICU Evaluation Blood Pressure : */* mmHG Vent. Rate : 51 BPM Atrial Rate : 51 BPM P-R Int : 182 ms QRS Dur : 96 ms QT Int : 588 ms P-R-T Axes : 49 -15 37 degrees QTcB Int : 541 ms Sinus bradycardia Septal infarct , age undetermined Prolonged QT Abnormal ECG When compared with ECG of 11-Apr-2024 09:37, Vent. rate has decreased by 29 bpm T wave inversion no longer evident in Lateral leads QT has lengthened Referred By: Megan Brown Electronically Signed By: Ralf Daniel
[2024-04-13] MEDS: Piperacillin Sodium/Tazobactam 2.25 GM in 0.9 % Sodium Chloride 50 ML IV ×3 (01:13→17:12)
[2024-04-13 06:26] LABS: MANUAL DIFF FLAG NO
[2024-04-13 06:42] LABS: Anion Gap 12 (12-20); Blood Urea Nitrogen 27 mg/dL (9-16); Calcium 7.6 mg/dL (8.4-10.2); Carbon Dioxide 21 mmol/L (22-29); Chloride 102 mmol/L (96-108); Creatinine Clr Calc Pharmacy 14.2; Estimated Glomerular Filt Rate 12; Glucose Random 80 mg/dL (60-115); Potassium 3.6 mmol/L (3.3-5.1); Sodium 131 mmol/L (135-145)
[2024-04-13 06:46] LABS: Basophils Percent Auto 0.2 % (0-2); Eosinophils Absolute Auto 0.2 X10*3/uL (0.0-0.4); Eosinophils Percent Auto 1.6 % (0-4); Hematocrit 24.2 % (37.0-47.0); Imm Gran Abs Auto 0.07 X10*3/uL (0.00-0.03); Imm Gran Pct Auto 0.7 % (0.0-0.4); Lymphocytes Absolute Auto 0.8 X10*3/uL (1.2-4.9); Lymphocytes Percent Auto 8.7 % (20-40); Mean Corpuscular HGB Conc 33.1 g/dl (31.0-35.0); Mean Corpuscular Hemoglobin 30.1 pg (27.0-33.0); Mean Platelet Volume 11.7 fL (9.4-12.3); Monocytes Absolute Auto 1.1 X10*3/uL (0.1-1.2); Monocytes Percent Auto 11.3 % (2-11); Neutrophils Absolute Auto 7.5 x10*3/uL (2.0-8.3); Neutrophils Percent Auto 77.5 % (45-73); Platelet Count 215 X10*3/uL (160-400); Red Blood Count 2.66 X10*6/uL (4.20-5.50); White Blood Count 9.7 X10*3/uL (4.8-10.8)
[2024-04-13] MEDS: Tacrolimus 0.5 MG CAPSULE PO (07:35)
[2024-04-13] MEDS: HYDROmorphone HCl 0.5 MG/0.5 ML SYRINGE IVPUSH (07:35)
[2024-04-13] MEDS: Dextrose 5 % and 0.45 % NaCl 1,000 ML 100 ML IVCONT ×2 (07:44→14:25)
--- NOTE | 2024-04-13 08:15 | PM.PNGS ---
Subjective Subjective Date of Service: 04/13/24 Interval history: Seen earlier this morning Says her abdominal pain is the same and not better She says she aches all over as well No events overnight She had dialysis yesterday Physical Exam Vital Signs: Vital Signs: Last Vital Signs Temp 97.3 F 04/13/24 07:13 Pulse 65 04/13/24 07:13 Resp 18 04/13/24 07:13 BP 116/56 L 04/13/24 07:13 Pulse Ox 99 04/13/24 07:13 O2 Del Method Room Air 04/13/24 07:13 BMI result Body Mass Index 24.1 Const: Other: Frail looking General: comfortable and no acute distress Resp: Effort & Inspection: normal respiratory effort Cardio: Rate: regular rate GI: Other: Significantly tender on the lower abdomen Palpation (GI): Soft to palpation, not firm, Tenderness to palpation present (GI) (Mostly in lower abdomen) and Guarding due to palpation present (GI) (Some voluntary guarding) Objective Data Active Medications Acetaminophen (Acetaminophen 325 Mg Tablet) 975 mg PO Q6H PRN PRN Reason: Pain, Mild 1-3,fever,headache Albuterol Sulfate (Albuterol Sulfate (0.083%) 2.5 Mg/3 Ml Vial.Neb) 2.5 mg INHALE Q6H PRN PRN Reason: Shortness Of Breath Or Wheezing Albuterol Sulfate (Albuterol Sulfate 90 Mcg 8 Gm Inhaler) 1 puff INHALE Q6H PRN PRN Reason: Shortness Of Breath Or Wheezing Allopurinol (Allopurinol 100 Mg Tablet) 100 mg PO DAILY@1200 [facility] Last Admin: 04/12/24 11:35 Dose: 100 mg Documented By: MICHELA Aspirin (Aspirin Enteric Coated 81 Mg Tablet.) 81 mg PO DAILY@1200 [facility] Last Admin: 04/12/24 11:35 Dose: 81 mg Documented By: MICHELA Atorvastatin Calcium (Atorvastatin Calcium 20 Mg Tablet) 20 mg PO BEDTIME [facility] Last Admin: 04/12/24 21:59 Dose: 20 mg Documented By: AMY Famotidine (Famotidine 20 Mg Tablet) 20 mg PO BID@1200,2200 [facility] Last Admin: 04/12/24 21:59 Dose: 20 mg Documented By: AMY Folic Acid (Folic Acid 1 Mg Tablet) 1 mg PO DAILY@1200 [facility] Last Admin: 04/12/24 11:36 Dose: 1 mg Documented By: MICHELA Glucose (Glucose Gel 15 Gm Gel..Gram.) 15 gm PO Q15M PRN; Protocol PRN Reason: per Hypoglycemia Standing Ord. Hydromorphone HCl (Hydromorphone Hcl 0.5 Mg/0.5 Ml Syringe) 0.5 mg IVPUSH Q4H PRN; Protocol PRN Reason: Pain, Severe (Pain Scale 7-10) Last Admin: 04/13/24 07:35 Dose: 0.5 mg Documented By: JIM Hydroxyzine HCl (Hydroxyzine Hcl 25 Mg Tablet) 25 mg PO TID PRN PRN Reason: Itching Metronidazole (Flagyl) 500 mg in 100 mls @ 100 mls/hr IV Q8H [facility] Last Admin: 04/13/24 06:03 Dose: Not Given Documented By: ABUNDIO Non-Admin Reason: Patient Refused Dextrose (D10) 250 mls @ 750 mls/hr IV Q15M PRN; Protocol PRN Reason: per Hypoglycemia Standing Ord. Dextrose/Sodium Chloride (D51/2ns) 1,000 mls @ 100 mls/hr IVCONT .Q10H [facility] Last Admin: 04/13/24 07:44 Dose: 100 mls/hr Documented By: JIM Piperacillin Sod/Tazobactam (Sod 2.25 gm/ Sodium Chloride) 50 mls @ 100 mls/hr IV Q8H [facility] Last Admin: 04/13/24 07:35 Dose: 100 mls/hr Documented By: JIM Levothyroxine Sodium (Levothyroxine Sodium 88 Mcg Tablet) 88 mcg PO DAILY@0600 [facility] Last Admin: 04/13/24 06:39 Dose: Not Given Documented By: ABUNDIO Non-Admin Reason: Patient Refused Melatonin (Melatonin 3 Mg Tablet) 6 mg PO BEDTIME PRN PRN Reason: Insomnia Last Admin: 04/12/24 21:59 Dose: 6 mg Documented By: AMY Metoprolol Tartrate (Metoprolol Tartrate 25 Mg Tablet) 25 mg PO BID@1200,2200 [facility]; Protocol Last Admin: 04/12/24 21:59 Dose: 25 mg Documented By: AMY Ondansetron HCl (Ondansetron Hcl 4 Mg/2 Ml Vial) 4 mg IVPUSH Q8H PRN PRN Reason: Nausea and Vomiting Last Admin: 04/11/24 03:10 Dose: 4 mg Documented By: CHEPE Polyethylene Glycol (Polyethylene Glycol 3350 17 Gm Powd.Pack) 17 gm PO DAILY PRN PRN Reason: Constipation Ropinirole HCl (Ropinirole Hcl 0.5 Mg Tablet) 0.5 mg PO BEDTIME@2200 [facility] Last Admin: 04/12/24 21:59 Dose: 0.5 mg Documented By: AMY Tacrolimus (Tacrolimus 0.5 Mg Capsule) 0.5 mg PO BID [facility] Last Admin: 04/13/24 07:35 Dose: 0.5 mg Documented By: JIM Venlafaxine HCl (Venlafaxine Hcl 25 Mg Tablet) 25 mg PO DAILY@1200 [facility] Last Admin: 04/12/24 11:39 Dose: 25 mg Documented By: MICHELA Vitamin D (Cholecalciferol (Vitamin D3) 25 Mcg Tablet) 50 mcg PO DAILY@1200 [facility] Last Admin: 04/12/24 11:35 Dose: 50 mcg Documented By: MICHELA Labs 04/13/24 15:26 04/13/24 05:58 Labs: Laboratory Results - last 24 hr 04/13/24 05:58 MCV 91.0 MCH 30.1 MCHC 33.1 RDW 16.0 Plt Count 215 MPV 11.7 Immature Gran % (Auto) 0.7 H Neut % (Auto) 77.5 H Lymph % (Auto) 8.7 L [place] % (Auto) 11.3 H Eos % (Auto) 1.6 Baso % (Auto) 0.2 Lymph # (Auto) 0.8 L [place] # (Auto) 1.1 Eos # (Auto) 0.2 Baso # (Auto) 0.0 Abs Immat Gran (auto) 0.07 H Absolute Neuts (auto) 7.5 Absolute Nucleated RBC 0.000 Nucleated RBC % (auto) 0.0 Anion Gap 12 Estim Creat Clear Calc 14.2 Estimated GFR 12 Random Glucose 80 Calcium 7.6 L Microbiology Microbiology Results: Microbiology 04/10/24 20:35 Blood Culture - Preliminary Blood - Venous No growth after 48 hours. 04/10/24 20:32 Blood Culture - Preliminary Blood - Venous No growth after 48 hours. Procedures Date of Service Date of Service: 04/13/24 Progress Note: A&P Assessment and plan (1) Diverticulitis: Status: Acute Assessment and Plan: No fever spikes overnight However remains tender She has had multiple episodes and says she has been in and out of the hospital for almost a year for her abdominal pain I had a long discussion with her again about option of proceeding with a resection She says she wants to proceed She understands that she has multiple medical problems and presents with significant perioperative risks She has low level of activity, and has a poor frailty score She understands the technique of hand assisted sigmoid resection possible open, with colostomy I have talked to her sister Jena I have discussed this case with the financial services professional event that the patient will require postop care in the ICU Time Spent With Patient Time: Total time managing care of this patient today ____ minutes. Quality Stroke Does the patient have a stroke diagnosis?: No VTE Prior VTE?: No VTE Risk Level:: Medical - moderate - high VTE Device Contraindication: N/A - Device Ordered VTE Drug Contraindication: Drug Allergy
[2024-04-13] MEDS: 0.9 % Sodium Chloride 1,000 ML 80 ML IVCONT (09:42)
--- NOTE | 2024-04-13 09:49 | MHC.CM.PN ---
EMR REVIEWED, PT W/DIVERTICULITIS/MICRO PERFERATION, PER SURGICAL PLAN FOR SIGMOID RESECTION W/OSTOMY, ANTIC STR VS HOME W/RESUMP OF [facility] AND OUTPT HD [facility] AND [facility], CM WILL CONT TO FOLLOW DC NEEDS.
--- NOTE | 2024-04-13 10:27 | PM.CNNEP ---
History of Present Illness Reason for Consult Consult date: 04/13/24 Reason for consult: End stage renal disease Chief Complaint Chief complaint: Diverticulitis, micro perf, on HD History of Present Illness Narrative: 73 yo f with a pmhx significant for ESRD on HD, hx of liver transplant on immunosuppression, CAD, hx of TAVR, and recurrent diverticulitis, who presented to the ED today with LLQ pain and nausea x1-2 days. She has a hx of diverticulitis and feels this is the same. rates the pain 10/10, with bloating. fever of 103.3 measured here. last BM was yesterday, able to pass gas today. has not been able to tolerate much PO and feels dehydrated. she has ESRD on HD Fri, , She is scheduled for surgery and therefore underwent hemodialysis yesterday/Friday [facility] Past Medical History Medical History (Updated 04/10/24 @ 22:55 by Padmaja Ruiz PA-C) ESRD (end stage renal disease) on dialysis Congestive heart failure Patient on waiting list for kidney transplant Gout History of transcatheter aortic valve replacement (TAVR) History of blood transfusion GERD (gastroesophageal reflux disease) Anxiety and depression AV fistula Hemodialysis patient COVID-19 vaccine series completed Murmur Hyperkalemia Left inguinal hernia DJD (degenerative joint disease) of thoracic spine Neuropathy End-stage renal disease (ESRD) COPD (chronic obstructive pulmonary disease) Coronary artery disease Bronchitis Asthma Arthritis Anemia Cirrhosis Surgical History Surgical History Liver transplant recipient H/O thyroidectomy H/O hemorrhoidectomy Hx of spinal surgery H/O heart surgery Hx of colonoscopy History of liver transplant History of surgery on arm Social History Social History Household Members: None Housing: House Are you a primary manager intensive care unit to a significant other at home: No Do you presently have visiting nurse or other home services: No Unable to assess alcohol history related to: Unable to respond Alcohol intake: never Comment: pt refused bed alarm Patient Tobacco Use Status: Former Tobacco user Tobacco use type: Cigarette Cigarette Packs Per Day: 2 Cigarettes Per Day: 40.0 Years Smoked: 25 e-Cigarette/Vaping Use: Never Used Second Hand Smoke Exposure: No Advance Directives Date on File: 12/09/20 service: No Current occupational status: retired Meds Allergies Allergy/AdvReac Type Severity Reaction Status Date / Time Sulfa (Sulfonamide Allergy Intermediate HIVES Verified 04/10/24 14:57 Antibiotics) Heparin Analogues Allergy Unknown UNKNOWN Verified 04/10/24 14:57 [Heparin Agents] verapamil Allergy Unknown unknown Verified 04/10/24 14:57 Active Medications: Current Medications Acetaminophen (Acetaminophen 325 Mg Tablet) 975 mg PO Q6H PRN PRN Reason: Pain, Mild 1-3,fever,headache Albuterol Sulfate (Albuterol Sulfate (0.083%) 2.5 Mg/3 Ml Vial.Neb) 2.5 mg INHALE Q6H PRN PRN Reason: Shortness Of Breath Or Wheezing Albuterol Sulfate (Albuterol Sulfate 90 Mcg 8 Gm Inhaler) 1 puff INHALE Q6H PRN PRN Reason: Shortness Of Breath Or Wheezing Allopurinol (Allopurinol 100 Mg Tablet) 100 mg PO DAILY@1200 [facility] Last Admin: 04/12/24 11:35 Dose: 100 mg Aspirin (Aspirin Enteric Coated 81 Mg Tablet.) 81 mg PO DAILY@1200 [facility] Last Admin: 04/12/24 11:35 Dose: 81 mg Atorvastatin Calcium (Atorvastatin Calcium 20 Mg Tablet) 20 mg PO BEDTIME [facility] Last Admin: 04/12/24 21:59 Dose: 20 mg Famotidine (Famotidine 20 Mg Tablet) 20 mg PO BID@1200,2200 [facility] Last Admin: 04/12/24 21:59 Dose: 20 mg Folic Acid (Folic Acid 1 Mg Tablet) 1 mg PO DAILY@1200 [facility] Last Admin: 04/12/24 11:36 Dose: 1 mg Glucose (Glucose Gel 15 Gm Gel..Gram.) 15 gm PO Q15M PRN; Protocol PRN Reason: per Hypoglycemia Standing Ord. Hydromorphone HCl (Hydromorphone Hcl 0.5 Mg/0.5 Ml Syringe) 0.5 mg IVPUSH Q4H PRN; Protocol PRN Reason: Pain, Severe (Pain Scale 7-10) Last Admin: 04/13/24 07:35 Dose: 0.5 mg Hydroxyzine HCl (Hydroxyzine Hcl 25 Mg Tablet) 25 mg PO TID PRN PRN Reason: Itching Metronidazole (Flagyl) 500 mg in 100 mls @ 100 mls/hr IV Q8H [facility] Last Admin: 04/13/24 06:03 Dose: Not Given Dextrose (D10) 250 mls @ 750 mls/hr IV Q15M PRN; Protocol PRN Reason: per Hypoglycemia Standing Ord. Dextrose/Sodium Chloride (D51/2ns) 1,000 mls @ 100 mls/hr IVCONT .Q10H [facility] Last Admin: 04/13/24 07:44 Dose: 100 mls/hr Piperacillin Sod/Tazobactam (Sod 2.25 gm/ Sodium Chloride) 50 mls @ 100 mls/hr IV Q8H [facility] Last Infusion: 04/13/24 08:27 Dose: Infused Sodium Chloride (Ns) 1,000 mls @ 80 mls/hr IVCONT .[id number] [facility] Last Admin: 04/13/24 09:42 Dose: 80 mls/hr Levothyroxine Sodium (Levothyroxine Sodium 88 Mcg Tablet) 88 mcg PO DAILY@0600 [facility] Last Admin: 04/13/24 06:39 Dose: Not Given Melatonin (Melatonin 3 Mg Tablet) 6 mg PO BEDTIME PRN PRN Reason: Insomnia Last Admin: 04/12/24 21:59 Dose: 6 mg Metoprolol Tartrate (Metoprolol Tartrate 25 Mg Tablet) 25 mg PO BID@1200,2200 [facility]; Protocol Last Admin: 04/12/24 21:59 Dose: 25 mg Ondansetron HCl (Ondansetron Hcl 4 Mg/2 Ml Vial) 4 mg IVPUSH Q8H PRN PRN Reason: Nausea and Vomiting Last Admin: 04/11/24 03:10 Dose: 4 mg Polyethylene Glycol (Polyethylene Glycol 3350 17 Gm Powd.Pack) 17 gm PO DAILY PRN PRN Reason: Constipation Ropinirole HCl (Ropinirole Hcl 0.5 Mg Tablet) 0.5 mg PO BEDTIME@2200 [facility] Last Admin: 04/12/24 21:59 Dose: 0.5 mg Tacrolimus (Tacrolimus 0.5 Mg Capsule) 0.5 mg PO BID [facility] Last Admin: 04/13/24 07:35 Dose: 0.5 mg Venlafaxine HCl (Venlafaxine Hcl 25 Mg Tablet) 25 mg PO DAILY@1200 [facility] Last Admin: 04/12/24 11:39 Dose: 25 mg Vitamin D (Cholecalciferol (Vitamin D3) 25 Mcg Tablet) 50 mcg PO DAILY@1200 [facility] Last Admin: 04/12/24 11:35 Dose: 50 mcg Home Medications ?Medication ?Instructions ?Recorded ?Confirmed ?Last Taken ?Type aspirin 81 mg tablet,delayed 81 mg PO DAILY@1200 01/26/20 04/11/24 03/10/24 History release allopurinol 100 mg tablet 100 mg PO DAILY@1200 03/08/20 04/11/24 03/10/24 History cholecalciferol (vitamin D3) 50 1 tab PO DAILY@1200 08/14/20 04/11/24 03/10/24 History mcg (2,000 unit) tablet hydroxyzine HCl 25 mg tablet 1 tab PO TID PRN Itching 08/14/20 04/11/24 04/04/23 History ropinirole 0.5 mg tablet 1 tab PO BEDTIME@2200 08/14/20 04/11/24 03/10/24 History venlafaxine 25 mg tablet 1 tab PO DAILY@1200 08/14/20 04/11/24 03/10/24 History famotidine 20 mg tablet 1 tab PO BID@1200,2200 01/14/22 04/11/24 03/10/24 History rosuvastatin 5 mg tablet 1 tab PO BEDTIME 01/14/22 04/11/24 03/10/24 History levothyroxine 88 mcg tablet 88 mcg PO DAILY@0600 01/20/23 04/11/24 03/10/24 History albuterol sulfate 90 mcg/actuation 1 puff inhalation Q6H PRN 06/09/23 04/11/24 Unknown History aerosol inhaler (Ventolin HFA) Shortness Of Breath Or Wheezing tacrolimus 0.5 mg capsule, 0.5 mg PO BID@1200,2200 07/15/23 04/11/24 03/10/24 History immediate-release folic acid 1 mg tablet 1 mg PO DAILY@1200 02/04/24 04/11/24 03/10/24 History metoprolol tartrate 25 mg tablet 25 mg PO BID@1200,2200 02/04/24 04/11/24 03/10/24 History albuterol sulfate 2.5 mg/3 mL 2.5 mg inhalation Q6H PRN 03/11/24 04/11/24 Unknown History (0.083 %) solution for nebulization Shortness Of Breath Or Wheezing calcium citrate 400 mg PO BID@1200,2200 03/11/24 04/11/24 03/10/24 History Physical Exam Vital Signs: Last Vital Signs Temp 98.9 F 04/13/24 09:21 Pulse 69 04/13/24 09:21 Resp 16 04/13/24 09:21 BP 123/50 L 04/13/24 09:21 Pulse Ox 98 04/13/24 09:21 O2 Del Method Room Air 04/13/24 09:21 BMI result Body Mass Index 24.1 Comfortable Neck supple no JVD. Lungs entry equal no rales. Heart S1-S2 heard no gallop or rub. Abdomen soft Neuro alert awake oriented. No asterixis. Extremities no edema. Results Lab Results 04/13/24 05:58 04/13/24 05:58 Lab results: Chemistry 04/10/24 04/11/24 04/12/24 15:31 05:57 04:54 Sodium 139 140 134 L Potassium 4.3 4.4 4.4 Carbon Dioxide 27 25 22 BUN 15 24 H 41 H Creatinine 2.68 H 3.49 H 4.76 H* Calcium 8.5 8.4 7.8 L D 04/13/24 05:58 Sodium 131 L Potassium 3.6 Carbon Dioxide 21 L BUN 27 H Creatinine 3.60 H Calcium 7.6 L Hematology 04/10/24 04/11/24 04/12/24 15:31 05:57 04:54 WBC 11.7 H 15.2 H 12.4 H Hgb 9.7 L 10.4 L 8.6 L Plt Count 251 237 231 04/13/24 05:58 WBC 9.7 Hgb 8.0 L Plt Count 215 Assessment and Plan (1) ESRD (end stage renal disease) on dialysis: Status: Chronic Plan No signs or symptoms of uremia. Underwent hemodialysis on 04/12/2024. Next hemodialysis will be on 04/14/2024. Anemia due to end stage renal disease. We will administer Epogen. Mild hyponatremia. Restrict hypotonic fluids she will watch for now. Await surgery Procedures Date of Service Date of Service: 04/13/24
--- NOTE | 2024-04-13 10:28 | HO.ANESPROP2 ---
HPI - Anesthesia Eval Consult details Narrative: colectomy [facility] Active Problems Active Problems: All Active Problems ESRD (end stage renal disease) on dialysis (Chronic) Sepsis (Acute) Perforation of sigmoid colon due to diverticulitis (Acute) Diverticulitis (Acute) Adult failure to thrive (Acute) Weakness (Acute) Adult hypothyroidism (Acute) Chronic renal failure (Acute) Hypothyroidism (Acute) Immunosuppressed status (Acute) Rash (Acute) NSTEMI (non-ST elevated myocardial infarction) (Acute) Unstable angina (Acute) Paroxysmal atrial fibrillation (Acute) Elevated troponin (Acute) Pneumonia (Acute) Acute hyperkalemia (Acute) Metabolic encephalopathy (Acute) S/P TAVR (transcatheter aortic valve replacement) (Acute) Acute UTI (Acute) Past Medical History Medical History ESRD (end stage renal disease) on dialysis Congestive heart failure Patient on waiting list for kidney transplant Gout History of transcatheter aortic valve replacement (TAVR) History of blood transfusion GERD (gastroesophageal reflux disease) Anxiety and depression AV fistula Hemodialysis patient COVID-19 vaccine series completed Murmur Hyperkalemia Left inguinal hernia DJD (degenerative joint disease) of thoracic spine Neuropathy End-stage renal disease (ESRD) COPD (chronic obstructive pulmonary disease) Coronary artery disease Bronchitis Asthma Arthritis Anemia Cirrhosis Family History Family history of problems with anesthesia: No Surgical History Surgical History Liver transplant recipient H/O thyroidectomy H/O hemorrhoidectomy Hx of spinal surgery H/O heart surgery Hx of colonoscopy History of liver transplant History of surgery on arm History of Problems with Anesthesia: No Social History Social History Household Members: None Housing: House Are you a primary veterinarian laboratory animal care to a significant other at home: No Do you presently have visiting nurse or other home services: No Unable to assess alcohol history related to: Unable to respond Alcohol intake: never Comment: pt refused bed alarm Patient Tobacco Use Status: Former Tobacco user Tobacco use type: Cigarette Cigarette Packs Per Day: 2 Cigarettes Per Day: 40.0 Years Smoked: 25 e-Cigarette/Vaping Use: Never Used Second Hand Smoke Exposure: No Advance Directives Date on File: 03/08/20 service: No Current occupational status: retired Meds Allergies Allergy/AdvReac Type Severity Reaction Status Date / Time Sulfa (Sulfonamide Allergy Intermediate HIVES Verified 04/10/24 14:57 Antibiotics) Heparin Analogues Allergy Unknown UNKNOWN Verified 04/10/24 14:57 [Heparin Agents] verapamil Allergy Unknown unknown Verified 04/10/24 14:57 Active Medications: Current Medications Acetaminophen (Acetaminophen 325 Mg Tablet) 975 mg PO Q6H PRN PRN Reason: Pain, Mild 1-3,fever,headache Albuterol Sulfate (Albuterol Sulfate (0.083%) 2.5 Mg/3 Ml Vial.Neb) 2.5 mg INHALE Q6H PRN PRN Reason: Shortness Of Breath Or Wheezing Albuterol Sulfate (Albuterol Sulfate 90 Mcg 8 Gm Inhaler) 1 puff INHALE Q6H PRN PRN Reason: Shortness Of Breath Or Wheezing Allopurinol (Allopurinol 100 Mg Tablet) 100 mg PO DAILY@1200 [facility] Last Admin: 04/12/24 11:35 Dose: 100 mg Aspirin (Aspirin Enteric Coated 81 Mg Tablet.Dr) 81 mg PO DAILY@1200 [facility] Last Admin: 04/12/24 11:35 Dose: 81 mg Atorvastatin Calcium (Atorvastatin Calcium 20 Mg Tablet) 20 mg PO BEDTIME [facility] Last Admin: 04/12/24 21:59 Dose: 20 mg Famotidine (Famotidine 20 Mg Tablet) 20 mg PO BID@1200,2200 [facility] Last Admin: 04/12/24 21:59 Dose: 20 mg Folic Acid (Folic Acid 1 Mg Tablet) 1 mg PO DAILY@1200 [facility] Last Admin: 04/12/24 11:36 Dose: 1 mg Glucose (Glucose Gel 15 Gm Gel..Gram.) 15 gm PO Q15M PRN; Protocol PRN Reason: per Hypoglycemia Standing Ord. Hydromorphone HCl (Hydromorphone Hcl 0.5 Mg/0.5 Ml Syringe) 0.5 mg IVPUSH Q4H PRN; Protocol PRN Reason: Pain, Severe (Pain Scale 7-10) Last Admin: 04/13/24 07:35 Dose: 0.5 mg Hydroxyzine HCl (Hydroxyzine Hcl 25 Mg Tablet) 25 mg PO TID PRN PRN Reason: Itching Metronidazole (Flagyl) 500 mg in 100 mls @ 100 mls/hr IV Q8H [facility] Last Admin: 04/13/24 06:03 Dose: Not Given Dextrose (D10) 250 mls @ 750 mls/hr IV Q15M PRN; Protocol PRN Reason: per Hypoglycemia Standing Ord. Dextrose/Sodium Chloride (D51/2ns) 1,000 mls @ 100 mls/hr IVCONT .Q10H [facility] Last Admin: 04/13/24 07:44 Dose: 100 mls/hr Piperacillin Sod/Tazobactam (Sod 2.25 gm/ Sodium Chloride) 50 mls @ 100 mls/hr IV Q8H [facility] Last Infusion: 04/13/24 08:27 Dose: Infused Sodium Chloride (Ns) 1,000 mls @ 80 mls/hr IVCONT .[id number] [facility] Last Admin: 04/13/24 09:42 Dose: 80 mls/hr Levothyroxine Sodium (Levothyroxine Sodium 88 Mcg Tablet) 88 mcg PO DAILY@0600 [facility] Last Admin: 04/13/24 06:39 Dose: Not Given Melatonin (Melatonin 3 Mg Tablet) 6 mg PO BEDTIME PRN PRN Reason: Insomnia Last Admin: 04/12/24 21:59 Dose: 6 mg Metoprolol Tartrate (Metoprolol Tartrate 25 Mg Tablet) 25 mg PO BID@1200,2200 [facility]; Protocol Last Admin: 04/12/24 21:59 Dose: 25 mg Ondansetron HCl (Ondansetron Hcl 4 Mg/2 Ml Vial) 4 mg IVPUSH Q8H PRN PRN Reason: Nausea and Vomiting Last Admin: 04/11/24 03:10 Dose: 4 mg Polyethylene Glycol (Polyethylene Glycol 3350 17 Gm Powd.Pack) 17 gm PO DAILY PRN PRN Reason: Constipation Ropinirole HCl (Ropinirole Hcl 0.5 Mg Tablet) 0.5 mg PO BEDTIME@2200 [facility] Last Admin: 04/12/24 21:59 Dose: 0.5 mg Tacrolimus (Tacrolimus 0.5 Mg Capsule) 0.5 mg PO BID [facility] Last Admin: 04/13/24 07:35 Dose: 0.5 mg Venlafaxine HCl (Venlafaxine Hcl 25 Mg Tablet) 25 mg PO DAILY@1200 [facility] Last Admin: 04/12/24 11:39 Dose: 25 mg Vitamin D (Cholecalciferol (Vitamin D3) 25 Mcg Tablet) 50 mcg PO DAILY@1200 [facility] Last Admin: 04/12/24 11:35 Dose: 50 mcg Home Medications ?Medication ?Instructions ?Recorded ?Confirmed ?Last Taken ?Type aspirin 81 mg tablet,delayed 81 mg PO DAILY@1200 01/26/20 04/11/24 03/10/24 History release allopurinol 100 mg tablet 100 mg PO DAILY@1200 03/08/20 04/11/24 03/10/24 History cholecalciferol (vitamin D3) 50 1 tab PO DAILY@1200 08/14/20 04/11/24 03/10/24 History mcg (2,000 unit) tablet hydroxyzine HCl 25 mg tablet 1 tab PO TID PRN Itching 08/14/20 04/11/24 04/04/23 History ropinirole 0.5 mg tablet 1 tab PO BEDTIME@2200 08/14/20 04/11/24 03/10/24 History venlafaxine 25 mg tablet 1 tab PO DAILY@1200 08/14/20 04/11/24 03/10/24 History famotidine 20 mg tablet 1 tab PO BID@1200,2200 01/14/22 04/11/24 03/10/24 History rosuvastatin 5 mg tablet 1 tab PO BEDTIME 01/14/22 04/11/24 03/10/24 History levothyroxine 88 mcg tablet 88 mcg PO DAILY@0600 01/20/23 04/11/24 03/10/24 History albuterol sulfate 90 mcg/actuation 1 puff inhalation Q6H PRN 06/09/23 04/11/24 Unknown History aerosol inhaler (Ventolin HFA) Shortness Of Breath Or Wheezing tacrolimus 0.5 mg capsule, 0.5 mg PO BID@1200,2200 07/15/23 04/11/24 03/10/24 History immediate-release folic acid 1 mg tablet 1 mg PO DAILY@1200 02/04/24 04/11/24 03/10/24 History metoprolol tartrate 25 mg tablet 25 mg PO BID@1200,2200 02/04/24 04/11/24 03/10/24 History albuterol sulfate 2.5 mg/3 mL 2.5 mg inhalation Q6H PRN 03/11/24 04/11/24 Unknown History (0.083 %) solution for nebulization Shortness Of Breath Or Wheezing calcium citrate 400 mg PO BID@1200,2200 03/11/24 04/11/24 03/10/24 History Exam Height,Weight and Vital Signs: Height 5 ft 8 in Weight 72 kg Last Vital Signs Temp 98.9 F 04/13/24 09:21 Pulse 69 04/13/24 09:21 Resp 16 04/13/24 09:21 BP 123/50 L 04/13/24 09:21 Pulse Ox 98 04/13/24 09:21 O2 Del Method Room Air 04/13/24 09:21 Pertinent Lab Results Pertinent Lab Results: Laboratory Tests 04/10/24 04/10/24 04/10/24 15:31 17:37 20:32 WBC 11.7 H RBC 3.25 L Hgb 9.7 L Hct 30.9 L MCV 95.1 MCH 29.8 MCHC 31.4 RDW 16.1 H Plt Count 251 MPV 11.2 Immature Gran % (Auto) 0.5 H Neut % (Auto) 81.6 H Lymph % (Auto) 8.6 L [place] % (Auto) 8.5 Eos % (Auto) 0.5 Baso % (Auto) 0.3 Lymph # (Auto) 1.0 L [place] # (Auto) 1.0 Eos # (Auto) 0.1 Baso # (Auto) 0.0 Abs Immat Gran (auto) 0.06 H Absolute Neuts (auto) 9.5 H Absolute Nucleated RBC 0.000 Nucleated RBC % (auto) 0.0 Sodium 139 Potassium 4.3 Chloride 103 Carbon Dioxide 27 Anion Gap 13 BUN 15 Creatinine 2.68 H Estim Creat Clear Calc 19.1 Estimated GFR 17 POC Glucose Random Glucose 100 Lactic Acid 1.9 Calcium 8.5 Magnesium 1.9 Total Bilirubin 0.6 AST 37 H ALT < 6 Alkaline Phosphatase 73 Troponin I High Sens 25.0 H 22.3 H Total Protein 7.4 Albumin 2.9 L Lipase 19 Influenza Type A (PCR) NEGATIVE Influenza Type B (PCR) NEGATIVE RSV RNA Qual (PCR) NEGATIVE SARS-CoV-2 RNA (RT-PCR) NEGATIVE Blood Type Antibody Screen 04/11/24 04/12/24 04/12/24 05:57 04:54 06:41 WBC 15.2 H 12.4 H RBC 3.41 L 2.83 L Hgb 10.4 L 8.6 L Hct 32.8 L 26.7 L MCV 96.2 94.3 MCH 30.5 30.4 MCHC 31.7 32.2 RDW 16.4 H 15.9 Plt Count 237 231 MPV 11.5 11.4 Immature Gran % (Auto) 0.5 H 0.8 H Neut % (Auto) 87.2 H 82.2 H Lymph % (Auto) 4.1 L 6.2 L [place] % (Auto) 7.6 10.4 Eos % (Auto) 0.4 0.2 Baso % (Auto) 0.2 0.2 Lymph # (Auto) 0.6 L 0.8 L [place] # (Auto) 1.2 1.3 H Eos # (Auto) 0.1 0.0 Baso # (Auto) 0.0 0.0 Abs Immat Gran (auto) 0.07 H 0.10 H Absolute Neuts (auto) 13.3 H 10.1 H Absolute Nucleated RBC 0.000 0.000 Nucleated RBC % (auto) 0.0 0.0 Sodium 140 134 L Potassium 4.4 4.4 Chloride 105 100 Carbon Dioxide 25 22 Anion Gap 14 16 BUN 24 H 41 H Creatinine 3.49 H 4.76 H* Estim Creat Clear Calc 14.6 10.7 Estimated GFR 13 9 POC Glucose 68 Random Glucose 64 45 L* Lactic Acid Calcium 8.4 7.8 L D Magnesium 2.0 Total Bilirubin AST ALT Alkaline Phosphatase Troponin I High Sens Total Protein Albumin Lipase Influenza Type A (PCR) Influenza Type B (PCR) RSV RNA Qual (PCR) SARS-CoV-2 RNA (RT-PCR) Blood Type Antibody Screen 04/13/24 04/13/24 05:58 09:44 WBC 9.7 RBC 2.66 L Hgb 8.0 L Hct 24.2 L MCV 91.0 MCH 30.1 MCHC 33.1 RDW 16.0 Plt Count 215 MPV 11.7 Immature Gran % (Auto) 0.7 H Neut % (Auto) 77.5 H Lymph % (Auto) 8.7 L [place] % (Auto) 11.3 H Eos % (Auto) 1.6 Baso % (Auto) 0.2 Lymph # (Auto) 0.8 L [place] # (Auto) 1.1 Eos # (Auto) 0.2 Baso # (Auto) 0.0 Abs Immat Gran (auto) 0.07 H Absolute Neuts (auto) 7.5 Absolute Nucleated RBC 0.000 Nucleated RBC % (auto) 0.0 Sodium 131 L Potassium 3.6 Chloride 102 Carbon Dioxide 21 L Anion Gap 12 BUN 27 H Creatinine 3.60 H Estim Creat Clear Calc 14.2 Estimated GFR 12 POC Glucose Random Glucose 80 Lactic Acid Calcium 7.6 L Magnesium Total Bilirubin AST ALT Alkaline Phosphatase Troponin I High Sens Total Protein Albumin Lipase Influenza Type A (PCR) Influenza Type B (PCR) RSV RNA Qual (PCR) SARS-CoV-2 RNA (RT-PCR) Blood Type B Positive Antibody Screen NEGATIVE Airway Mallampati Class: II TM Dist: >3cm Neck ROM: Limited Denture: Upper and Lower (no teeth) Heart: rrr Lungs: cta Assessment and Plan Assessment Anesthesia Assessment: Anesthesia Plan Discussed Final Anesthetic Review Family History of Problems with Anesthesia: No History of Problems with Anesthesia: No NPO: Yes ASA Class: III Final Preanesthetic Review: No Changes in Pt Med Stat, Meds/Allgs Chart Reviewed, Consent Obtained/Reviewed and Anes Risks/Benef Reviewed Patient Risk: Intermediate Procedure Risk: Intermediate Anesthetic Plan Anesthetic Plan: GA and Regional Block Disposition: Standard PACU
--- NOTE | 2024-04-13 12:27 | P.PNIM_ITS ---
Subjective Subjective Date of Service: 04/13/24 Interval History: seen in f/u for abdominal pain d/t acute diverticulitis s/p loop colostomy for severe diverticulitis with micro perforation Pt was doing well after surgery but then developped Hypotension, bradycardia and rapid response, called. Pt was awake alert but drowsy systolic BP was in the 60s and HR in the 50s, started on IVF with no improvement in BP and had to be initiated on vasopressor to be transfered to the ICU Her sister was at the bedside with her Physical Exam 2 Vital Signs: Vital Signs: Last Vital Signs Temp 98.9 F 04/13/24 09:21 Pulse 69 04/13/24 09:21 Resp 16 04/13/24 09:21 BP 123/50 L 04/13/24 09:21 Pulse Ox 98 04/13/24 09:21 O2 Del Method Room Air 04/13/24 09:21 BMI result Body Mass Index 24.1 Comfortable Neck supple no JVD. Lungs entry equal no rales. Heart S1-S2 heard no gallop or rub. Abdomen soft Neuro alert awake oriented. No asterixis. Extremities no edema. Objective Data Active Medications Acetaminophen (Acetaminophen 325 Mg Tablet) 975 mg PO Q6H PRN PRN Reason: Pain, Mild 1-3,fever,headache Albuterol Sulfate (Albuterol Sulfate (0.083%) 2.5 Mg/3 Ml Vial.Neb) 2.5 mg INHALE Q6H PRN PRN Reason: Shortness Of Breath Or Wheezing Albuterol Sulfate (Albuterol Sulfate 90 Mcg 8 Gm Inhaler) 1 puff INHALE Q6H PRN PRN Reason: Shortness Of Breath Or Wheezing Allopurinol (Allopurinol 100 Mg Tablet) 100 mg PO DAILY@1200 [facility] Last Admin: 04/12/24 11:35 Dose: 100 mg Documented By: MICHELA Aspirin (Aspirin Enteric Coated 81 Mg Tablet.) 81 mg PO DAILY@1200 [facility] Last Admin: 04/12/24 11:35 Dose: 81 mg Documented By: MICHELA Atorvastatin Calcium (Atorvastatin Calcium 20 Mg Tablet) 20 mg PO BEDTIME [facility] Last Admin: 04/12/24 21:59 Dose: 20 mg Documented By: AMY Famotidine (Famotidine 20 Mg Tablet) 20 mg PO BID@1200,2200 [facility] Last Admin: 04/12/24 21:59 Dose: 20 mg Documented By: AMY Fentanyl (Fentanyl Citrate/Pf 100 Mcg/2 Ml Vial) 25 mcg IVPUSH Q5M PRN PRN Reason: Pain, Moderate to Severe (Pain Scale 4-10) Stop: 04/13/24 16:29 Folic Acid (Folic Acid 1 Mg Tablet) 1 mg PO DAILY@1200 [facility] Last Admin: 04/12/24 11:36 Dose: 1 mg Documented By: MICHELA Glucose (Glucose Gel 15 Gm Gel..Gram.) 15 gm PO Q15M PRN; Protocol PRN Reason: per Hypoglycemia Standing Ord. Hydromorphone HCl (Hydromorphone Hcl 0.5 Mg/0.5 Ml Syringe) 0.5 mg IVPUSH Q4H PRN; Protocol PRN Reason: Pain, Severe (Pain Scale 7-10) Last Admin: 04/13/24 07:35 Dose: 0.5 mg Documented By: JIM Hydroxyzine HCl (Hydroxyzine Hcl 25 Mg Tablet) 25 mg PO TID PRN PRN Reason: Itching Metronidazole (Flagyl) 500 mg in 100 mls @ 100 mls/hr IV Q8H [facility] Last Admin: 04/13/24 06:03 Dose: Not Given Documented By: ABUNDIO Non-Admin Reason: Patient Refused Dextrose (D10) 250 mls @ 750 mls/hr IV Q15M PRN; Protocol PRN Reason: per Hypoglycemia Standing Ord. Dextrose/Sodium Chloride (D51/2ns) 1,000 mls @ 100 mls/hr IVCONT .Q10H [facility] Last Admin: 04/13/24 07:44 Dose: 100 mls/hr Documented By: JIM Piperacillin Sod/Tazobactam (Sod 2.25 gm/ Sodium Chloride) 50 mls @ 100 mls/hr IV Q8H [facility] Last Infusion: 04/13/24 08:27 Dose: Infused Documented By: JIM Sodium Chloride (Ns) 1,000 mls @ 80 mls/hr IVCONT .[id number] [facility] Last Admin: 04/13/24 09:42 Dose: 80 mls/hr Documented By: SARAH Levothyroxine Sodium (Levothyroxine Sodium 88 Mcg Tablet) 88 mcg PO DAILY@0600 [facility] Last Admin: 04/13/24 06:39 Dose: Not Given Documented By: ABUNDIO Non-Admin Reason: Patient Refused Melatonin (Melatonin 3 Mg Tablet) 6 mg PO BEDTIME PRN PRN Reason: Insomnia Last Admin: 04/12/24 21:59 Dose: 6 mg Documented By: AMY Metoprolol Tartrate (Metoprolol Tartrate 25 Mg Tablet) 25 mg PO BID@1200,2200 [facility]; Protocol Last Admin: 04/12/24 21:59 Dose: 25 mg Documented By: AMY Naloxone HCl (Naloxone Hcl 0.4 Mg/Ml Vial) 0.04 mg IVPUSH Q5M PRN PRN Reason: Excessive sedation or RR < 8 Ondansetron HCl (Ondansetron Hcl 4 Mg/2 Ml Vial) 4 mg IVPUSH Q8H PRN PRN Reason: Nausea and Vomiting Last Admin: 04/11/24 03:10 Dose: 4 mg Documented By: CHEPE Ondansetron HCl (Ondansetron Hcl 4 Mg/2 Ml Vial) 4 mg IVPUSH ONCE PRN PRN Reason: Nausea and Vomiting Stop: 04/13/24 16:29 Polyethylene Glycol (Polyethylene Glycol 3350 17 Gm Powd.Pack) 17 gm PO DAILY PRN PRN Reason: Constipation Ropinirole HCl (Ropinirole Hcl 0.5 Mg Tablet) 0.5 mg PO BEDTIME@2200 [facility] Last Admin: 04/12/24 21:59 Dose: 0.5 mg Documented By: AMY Tacrolimus (Tacrolimus 0.5 Mg Capsule) 0.5 mg PO BID [facility] Last Admin: 04/13/24 07:35 Dose: 0.5 mg Documented By: JIM Venlafaxine HCl (Venlafaxine Hcl 25 Mg Tablet) 25 mg PO DAILY@1200 [facility] Last Admin: 04/12/24 11:39 Dose: 25 mg Documented By: MICHELA Vitamin D (Cholecalciferol (Vitamin D3) 25 Mcg Tablet) 50 mcg PO DAILY@1200 [facility] Last Admin: 04/12/24 11:35 Dose: 50 mcg Documented By: MICHELA Labs 04/13/24 15:26 04/13/24 05:58 Labs: Laboratory Results - last 24 hr 04/13/24 04/13/24 05:58 09:44 MCV 91.0 MCH 30.1 MCHC 33.1 RDW 16.0 Plt Count 215 MPV 11.7 Immature Gran % (Auto) 0.7 H Neut % (Auto) 77.5 H Lymph % (Auto) 8.7 L [place] % (Auto) 11.3 H Eos % (Auto) 1.6 Baso % (Auto) 0.2 Lymph # (Auto) 0.8 L [place] # (Auto) 1.1 Eos # (Auto) 0.2 Baso # (Auto) 0.0 Abs Immat Gran (auto) 0.07 H Absolute Neuts (auto) 7.5 Absolute Nucleated RBC 0.000 Nucleated RBC % (auto) 0.0 Anion Gap 12 Estim Creat Clear Calc 14.2 Estimated GFR 12 Random Glucose 80 Calcium 7.6 L Blood Type B Positive Antibody Screen NEGATIVE Crossmatch (AHG) See Detail Microbiology Microbiology Results: Microbiology 04/10/24 20:35 Blood Culture - Preliminary Blood - Venous No growth after 48 hours. 04/10/24 20:32 Blood Culture - Preliminary Blood - Venous No growth after 48 hours. Assessment and Plan (1) ESRD (end stage renal disease) on dialysis: Status: Chronic (2) Perforation of sigmoid colon due to diverticulitis: Status: Acute (3) Diverticulitis: Status: Acute Plan 73 yo f with a pmhx significant for ESRD on HD, hx of liver transplant on immunosuppression, CAD, hx of TAVR, and recurrent diverticulitis, who presented to the ED today with LLQ pain and nausea x1-[address] with acute diverticultis sigmoid colon with micro perforation. surgery was consulted and suggested admission for abx and monitoring. sepsis secondary to diverticulitis and micro perforation of sigmoid colon -s/p loop colostomy, lysis of adhesion today Hypotension, possiblly becoming more septic d/t bacterial translocation post surgery, blood loss -she will need blood culture drawn, getting IVF (in limitted amount due to ESRD), and vasopressors, lactic acid may need to be drawn, already on broad spec Abx. Discussed with ICU and is being transfered to ICU ESRD on HD Fri, --HD, last dialysis 04/12 - nephrology consult for management during stay, not due until Friday - electrolytes normal anemia, H/H slightly lower post surgery -follow, and transfuse with Hgb < 7 - no need for transfusion at this time paroxysmal a fib - Hold BB d/t hypotension GERD - continue PPI hypothyroid - continue levothyroxine hx liver transplant - continue tacrolimus full code VTE prophy: pneumoboots, documented heparin allergy need for inpt: perforated diverticulitis Quality Stroke Does the patient have a stroke diagnosis?: No VTE Prior VTE?: No VTE Risk Level:: Medical - moderate - high VTE Device Contraindication: N/A - Device Ordered VTE Drug Contraindication: Drug Allergy
--- NOTE | 2024-04-13 12:54 | W.PM.OPN ---
Operative Note Operative Note Date of Service: 04/13/24 Narrative: Preop diagnosis: Persistent sigmoid diverticulitis Postop diagnosis: Severely indurated distal sigmoid all the way to the rectum, with ?frozen pelvis Procedure: Hand assisted diagnostic laparoscopy, lysis of adhesions, mobilization of the colon and splenic flexure, sigmoid loop colostomy Surgeon: Ramirez Bueno MD commercial escrow assistant: CHUCKY Toscano The patient is a 71-year-old female who has had persistent lower abdominal pain what appeared to be diverticulitis on CT scan. She has had multiple episodes. She has been in the hospital for 3 days and she does not feel that her pain has been improving at all. I therefore explained to her the plan of sigmoid resection, hand assisted laparoscopic with colostomy. She understood the technique of the procedure as well as the risks, benefits, and alternatives. Her sisters were involved with the decision making. The understand the inherent perioperative risks in view of her significant frailty, multiple medical problems The patient was brought to the operating room. A TAP block was done by the anesthesiologist. She was placed in modified lithotomy position under general anesthesia via endotracheal tube. The abdomen was prepped and draped in the usual sterile fashion. A surgical time-out was done. The patient was receiving scheduled IV antibiotics I made a short low midline with a blade 15. This was carried down through the full-thickness of the skin and subcutaneous fat down to the fascia. The fascia was incised. The peritoneum was entered. The Jose Antonio wound retractor was positioned. We then excision of the GelPort along with the insufflating port. We insufflated to a pressure of 15 mm Hg. With laparoscopic visualization and inserted a 5/12 mm port in the epigastric area. There was note of adhesions on the upper abdomen from her liver transplant I removed the insufflating port. I positioned the laparoscope into the epigastric port. I inserted my hand into the GelPort. The patient was placed in head down position. I retracted the small bowel loops away from the pelvis. He would see the sigmoid as well as the rectosigmoid. There was note of severe induration, thickening and obvious inflammatory changes of the distal sigmoid. I proceeded to trace this distally. The rectosigmoid and the distal sigmoid appeared to be frozen in place. I could not feel any plane of dissection in the distal sigmoid and rectosigmoid. This appeared to be very indurated all the way into the pelvis without any obvious planes. Proceeded to try to gently dissect the distal sigmoid with my hand bluntly to see if I can develop any plane but we could not identify any plane at all. We had noted significant oozing during this in view of the severe inflammatory process. There was no abscess cavity. There was no free air . We tried to continue to dissect bluntly with the tip of the suction residential glazier to see if we can achieve any plane this. We did this carefully and deliberately because of the oozing with dissection. Eventually, I felt that in view of the very severe inflammatory changes all the way to the pelvis, the risks of continuing with aggressive dissection was high with subsequent bleeding and injury to other organs. I therefore decided to see if we can proceed with a loop sigmoid colostomy. Again, the distal sigmoid was tethered to the pelvis and we could not mobilize this any further. We therefore had to mobilize the proximal sigmoid, left colon and splenic flexure by dividing the peritoneal attachments along the white line of [place] using the LigaSure. Proceeded with this all the way to the sigmoid to allow us adequate length to bring out a loop colostomy. After mobilization of the entire left colon and the splenic flexure, felt that we had adequate length to bring out a loop of sigmoid despite very limited length distally due to the distal sigmoid being markedly adherent to the pelvis I therefore removed the GelPort and the Jose Antonio wound retractor. I created a mesenteric window at the proximal sigmoid. I passed a Cony drain around this. I then proceeded to create the stoma opening. I excised a discoid piece of skin on the left lower quadrant that had been earlier marked. I dissected down to the anterior sheath and divided the anterior sheath. I did muscle-splitting and created the stoma opening. We dilated this to about 3-0 of my fingers I pulled up the [place] drain along with the loop of sigmoid. I passed the bridge through this and removed the Cony drain. It appeared that we had just enough length to bring this loop out through the abdominal wall I then proceeded to inspect the pelvis for any bleeding. It appeared that we had good hemostasis. Again I directly visualize and palpated the pelvis and this appeared frozen with severe induration. Once hemostasis was confirmed, I proceeded then closed the fascia with a running Maxon 1 stitch. I closed the skin of the midline incision had skin maninder. We matured the stoma by making a transverse incision on the anterior wall of the sigmoid loop. I entered the lumen. I secured the wall of the sigmoid to the subdermal layer circumferentially with Polysorb 3-0 simple interrupted sutures. I was able to insert my finger through the both the efferent and afferent limbs and these were patent past the fascial level I examined the abdomen laparoscopically. There were no bowel loops caught by the sutures on the midline. The stoma loop was not twisted We therefore desufflated. I removed the epigastric port. We closed the rest of the skin incision with a skin maninder The procedure was then completed The patient tolerated the procedure well. There were no immediate complications. Initial final counts of sponges and instruments were correct. Estimated blood loss was about 50 cc. The patient was extubated without difficulty and transferred to the recovery room with stable vital signs.
[2024-04-13] MEDS: fentaNYL citrate/PF 100 MCG/2 ML VIAL 25 MCG IVPUSH (13:25)
[2024-04-13] MEDS: ondansetron HCL 4 MG/2 ML VIAL IVPUSH (13:26)
[2024-04-13] MEDS: metroNIDAZOLE/NS 500 MG/100 ML PIGGYBACK 100 MG IV (14:26)
[2024-04-13 15:29] LABS: Glucose, Whole Blood 90 mg/dL (60-115)
[2024-04-13] MEDS: Norepinephrine Bitartrate/D5W 8 MG/250 ML PLAST..BAG 6.75 MG IVCONT (15:45)
[2024-04-13 15:52] LABS: Hematocrit 23.4 % (37.0-47.0); Hemoglobin 7.5 g/dl (12.0-16.0); Mean Corpuscular HGB Conc 32.1 g/dl (31.0-35.0); Mean Corpuscular Hemoglobin 29.9 pg (27.0-33.0); Mean Corpuscular Volume 93.2 fL (80.0-98.0); Mean Platelet Volume 11.6 fL (9.4-12.3); Platelet Count 225 X10*3/uL (160-400); Red Blood Count 2.51 X10*6/uL (4.20-5.50); Red Cell Distribution Width 16.3 % (11.0-16.0)
--- NOTE | 2024-04-13 15:58 | PHA.PROG ---
Admission Date/Time: April 10, 2024 22:21 Indication: Other Weight in k kg Adjusted body weight in Kg: [place] body weight in Kg: Obesity Dosing Indication % IBW: Serum Creatinine - Last 168 Hours 04/10/24 04/11/24 04/12/24 15:31 05:57 04:54 Creatinine 2.68 H 3.49 H 4.76 H* 04/13/24 05:58 Creatinine 3.60 H Estimated CrCl and GFR - Last 168 Hours 04/10/24 04/11/24 04/12/24 15:31 05:57 04:54 Estim Creat Clear Calc 19.1 14.6 10.7 Estimated GFR 17 13 9 04/13/24 05:58 Estim Creat Clear Calc 14.2 Estimated GFR 12 Vancomycin Loading Dose: 1500mg x 1 Current Vancomycin Dosing Regimen: 500mg pending post - HD levels Vancomycin Monitoring using AUC goal of 400 - 600 range with trough as surrogate marker: N/A Date and Time for next Vancomycin Level to be drawn: pending HD schedule Pharmacist Comments on Vancomycin Plan: Will give loading dose now, and pend the 500mg dose for now until we know when dialysis will take place. Vancomycin dosing will take advantage of [employer] as a clinical decision support tool that uses Bayesian modeling to calculate individual patient's pharmacokinetic parameters and forecast the patient's drug concentration time course with the target goal AUC 24 range of 400 - 600 mg/L/hr.
[2024-04-13 16:12] LABS: Lactic Acid 1.7 mmol/L (0.5-2.0)
--- NOTE | 2024-04-13 16:24 | PM.EVENT ---
Event Note Date of Service: 04/16/24 Event Note: Patient was back in her room from PACU Noted to be hypotensive, hypothermic bradycardic Drowsy as well and according to sister at bedside was ?drifting in and out? Patient was transferred to the ICU Labs taken Hemoglobin 7.5 from 8.0 Now on pressors Both sisters contemplating DNR DNI - understands she has had significant medical issues for many years and has been declining steadily Etiology of bradycardia, hypothermia and hypotension uncertain but sepsis a likely differential Case discussed with emergency preparedness manager Both sisters Jena and Treva updated Time Spent With Patient Time: Total time managing care of this patient today ____ minutes.
--- NOTE | 2024-04-13 17:04 | P.EN_ITS ---
Event Note Date of Service: 04/13/24 Event Note: Patient is a 73 Y F w/ alcohol misuse, c/b cirrhosis, s/p liver transplant, end- stage renal failure on hemodialysis, recurrent diverticulitis, presenting initially on 04/10 w/ signs/symptoms consistent with prior diverticulitis, initially medically-managed; patient taken to operating room on 04/13; later in after, patient found to be bradycardic, hypotensive, and hypothermic; patient transferred to ICU; to start vasopressors, broaden antibiotics, follow-up repeat labs, blood cultures, CT chest, abdomen, pelvis as possible Time Spent With Patient Time: Total time managing care of this patient today ____ minutes.
[2024-04-13] MEDS: vancomycin HCL 1,500 MG in 0.9 % Sodium Chloride 500 ML 333.33 MG IV (17:15)
--- NOTE | 2024-04-13 17:15 | W.MHC.ACPN ---
Advanced Care Planning Note Advanced Care Planning Note Discussed with: patient and family member(s) Time spent (in minutes): 60 Narrative: Upon evaluation, Ms. Chery is alert, oriented to person, place, time, and situation; I engaged in a goals of care conversation with Ms. Chery, who answered questions intermittently; when asked if CPR and intubation/ventilation are within her wishes, Ms. Chery stated she was unsure, though does not want to ; I was unable to obtain any definitive answers from Ms. Chery with regards to CPR, intubation/ventilation, and central line; I asked Ms. Chery who her healthcare proxy is, for which she responded her sister Jena; I asked Ms. Chery if she prefer I ask questions and decisions regarding her care to Jena, for which she responded yes; I had an extensive conversation with Jena and Ms. Chery' other sister, Mari, who described Ms. Chery as a chronically ill person for which Jena has cared for for the past 15 years; they expressed that they have tried to engage in goals of care conversations with Ms. Chery, though are also unable to obtain definitive answers; however, they stated Ms. Chery loves her cats, would never want to live at a nursing facility, and has been ready to see her loved ones in [facility]; Jena and Mari expressed concern for Ms. Chery's chronic and acute diseases and believe that Ms. Marcials code status should be changed to DNR, DNI to limit additional suffering; moreover, they feel that comfort-focused care would be appropriate at this time, though they want an opportunity for Ms. Chery's son and other sister, Claudia, to see her in the hospital before starting this process; I expressed that we will continue to manage her medically with vasopressors and antibiotics, and await to hear their final Problems Discussed (1) Diverticulitis:
[2024-04-13 17:16] LABS: Anion Gap 11 (12-20); Blood Urea Nitrogen 31 mg/dL (9-16); Calcium 6.8 mg/dL (8.4-10.2); Carbon Dioxide 21 mmol/L (22-29); Chloride 105 mmol/L (96-108); Creatinine Clr Calc Pharmacy 13.9; Estimated Glomerular Filt Rate 12; Glucose Random 103 mg/dL (60-115); Potassium 3.6 mmol/L (3.3-5.1); Sodium 133 mmol/L (135-145)
--- NOTE | 2024-04-13 17:16 | PM.EVENT ---
Event Note Date of Service: 04/16/24 Event Note: Patient with increasing doses of pressors Systolic in the low 100s Abdomen is soft Heart rate in the 50s Had a long discussion with care proxy Jena and another sister Treva They do not want her intubated although they are still waiting for her son to be able to come by At this time, they want no further invasive measures Continue ICU care for now Time Spent With Patient Time: Total time managing care of this patient today ____ minutes.
--- NOTE | 2024-04-13 17:47 | PC.NURSE ---
Pt arrived from PACU at 1350. Vital Signs upon arrival were BP 127/48, T 97.2, HR 53, O2 98% RA, R17, At 1520 upon entering the room, pt lethargic, diaphoretic, pale;rapid response called at 1521; Dr. Henriquez at bed side; ; Initial vitals at 1525 BP 71/30, temp 95.1, 99% on RA , POC 90. Phlebotomy at bed side to draw labs. At 1528 BP 68/38, Heart Rate 48; IVF bolus started per Dr. Henriquez's verbal order. EKG obtained; at 1531 BP 70/40, HR in 30s, pacer pads applied. At 1538 BP 60/25. Per Dr. Henriquez's verbal order to initiate levo qtt at 1542. Drip started by BLISTER RUST ERADICATOR. At 1546 BP 149/58. Pt transferred to ICU by BLISTER RUST ERADICATOR, supervisor propellant charge loading, Dr. Henriquez, and Dr. Brown.
[2024-04-13] MEDS: Acetaminophen 1,000 MG/100 ML PIGGYBACK 400 MG IV (17:58)
[2024-04-13] MEDS: fentaNYL citrate/NS 1,000 MCG/100 ML PLAST..BAG 2.5 MCG IVCONT (18:49)
[2024-04-13] MEDS: Scopolamine 1.5 MG PATCH.TD.3 TRANSDERMA (18:51)
--- NOTE | 2024-04-13 20:41 | P.DN_ITS ---
Discharge Sum: Prov Provider Primary care physician: Vanessa Hu MD Attending physician on admission: [facility] Consults: 04/11/24 11:15 Consult to General Surgery Routine Consulting Provider: [facility] [place] General Surgeons Reason for consultation: acute diverticultis Has provider been notified: No Pronouncing clinician: Marialuisa Holloway Discharge Sum: Diag Contributing Factors (1) Cardiac arrest: (2) Perforation of sigmoid colon due to diverticulitis: (3) Diverticulitis: (4) Sepsis: (5) ESRD (end stage renal disease) on dialysis: (6) Cirrhosis: (7) Congestive heart failure: Discharge Sum: Summary Date and Time Date of admission: 04/10/24 22:21 Date of : 04/13/24 Time of : 20:19 Summary Details: Patient is a 73 Y F w/ alcohol misuse, c/b cirrhosis, s/p liver transplant, end- stage renal failure on hemodialysis, recurrent diverticulitis, presenting initially on 04/10 symptoms consistent with prior diverticulitis.? She was initially? medically managed,? but later was taken to the operating room? today 04/13/2024? by Dr. Bueno due to? perforation of sigmoid colon due to diverticulitis.? Later during the evening patient was a rapid response, she became bradycardic, hypotensive, hypothermic.? Required transferred to the? ICU? to start vasopressin and broaden antibiotic.? ?Goals of care conversation held by ICU attending Dr. Brown as well as Dr. Bueno,? family? decided to make patient comfort cares only The patient reached asystole at 2019.? On my assessment, the patient had absent peripheral pulses.? Pupils fixed and dilated.? Absent heart sounds? and no spontaneous breathing. ? Official time of 2019. ? Patient?s healthcare proxy Jena as well as multiple family members at bedside at [facility]. Not a medical exam candidate.? Organ donation was notified by nursing.? Attending Dr Brown notified? Additional Data Attending physician: Megan Brown MD
--- NOTE | 2024-04-13 21:54 | PC.NURSE ---
Code status changed to CONTRACTS REPRESENTATIVE on previous shift. Levophed paused per MAR per SENIOR PROJECT ACCOUNTANT Amie. Asystole/TOD at 2019. Family at bedside. Belongings sent home with family. NEDS called- case #[id number].
== END 2024-04-13 22:53 | disposition expired | DRG 853 ==
LOC: HO.ED 21:34 → HO.EDOVER 22:33 → HO.IMC 04-12 19:01 → HO.ICU 04-13 15:49
PROVIDERS: Internal Medicine; Physician Assistant; Physician Assistant Medical; Surgery; Admitting Provider Physician Assistant; Emergency Provider Emergency Medicine; PCP Pediatrics; Visit Provider Internal Medicine Critical Care Medicine
PROC: 0DTE0ZZ Resection of Large Intestine, Open Approach (ICD-10-PCS; principal; 2024-04-13 10:30)
DX: A41.9 Sepsis, unspecified organism (principal); N18.6 End stage renal disease; Z94.4 Liver transplant status; K56.7 Ileus, unspecified; D84.821 Immunodeficiency due to drugs; K57.20 Diverticulitis of large intestine with perforation and abscess without bleeding; Z51.5 Encounter for palliative care; K21.9 Gastro-esophageal reflux disease without esophagitis; E03.9 Hypothyroidism, unspecified; G89.18 Other acute postprocedural pain; I50.9 Heart failure, unspecified; I25.10 Atherosclerotic heart disease of native coronary artery without angina pectoris; I46.9 Cardiac arrest, cause unspecified; Z95.2 Presence of prosthetic heart valve; D63.1 Anemia in chronic kidney disease; I48.0 Paroxysmal atrial fibrillation; K66.0 Peritoneal adhesions (postprocedural) (postinfection); Z20.822 Contact with and (suspected) exposure to COVID-19; Z87.891 Personal history of nicotine dependence; Z79.82 Long term (current) use of aspirin; Z99.2 Dependence on renal dialysis; Z79.621 Long term (current) use of calcineurin inhibitor; Z79.890 Hormone replacement therapy; Z79.899 Other long term (current) drug therapy
CPT/HCPCS: 0241U; 36415; 74176; 80048; 80053; 82947; 83605; 83690; 83735; 84484; 85025; 85027; 86850; 86900; 86901; 86920; 86922; 87040; 90999; 93005; 99285; J0131; J0696; J1171; J1836; J1885; J2003; J2060; J2405; J2543; J2704; J2795; J3010; J3371; J7120

== ENCOUNTER → 2024-04-10 17:23 | Outpatient (BNV) | payer OTHER, SELFPAY | PROVIDERS: Emergency Provider Emergency Medicine; PCP Pediatrics; Visit Provider Radiology Diagnostic Radiology | DX: K57.20 Diverticulitis of large intestine with perforation and abscess without bleeding (principal); K63.89 Other specified diseases of intestine | CPT/HCPCS: 74176 ==

== ENCOUNTER 2024-04-10 22:21 | Outpatient (BNV) | payer OTHER, SELFPAY | END 2024-04-11 09:33 | PROVIDERS: Admitting Provider Physician Assistant; Emergency Provider Emergency Medicine; PCP Pediatrics; Visit Provider Internal Medicine | DX: R00.9 Unspecified abnormalities of heart beat (principal) | CPT/HCPCS: 93010 ==

== ENCOUNTER 2024-04-10 22:21 | Outpatient (BNV) | payer OTHER, SELFPAY | END 2024-04-13 15:24 | PROVIDERS: Admitting Provider Physician Assistant; Emergency Provider Emergency Medicine; PCP Pediatrics; Visit Provider Internal Medicine Cardiovascular Disease | DX: R94.31 Abnormal electrocardiogram [ECG] [EKG] (principal) | CPT/HCPCS: 93010 ==

== ENCOUNTER → 2024-04-10 22:21 | Outpatient (BNV) | payer OTHER, SELFPAY | PROVIDERS: Admitting Provider Physician Assistant; Emergency Provider Emergency Medicine; PCP Pediatrics; Visit Provider Internal Medicine | DX: A41.9 Sepsis, unspecified organism (principal); K57.92 Diverticulitis of intestine, part unspecified, without perforation or abscess without bleeding; K57.20 Diverticulitis of large intestine with perforation and abscess without bleeding; N18.6 End stage renal disease; Z99.2 Dependence on renal dialysis | CPT/HCPCS: 99223; 99233 ==

== ENCOUNTER → 2024-04-10 22:21 | Outpatient (BNV) | payer OTHER, SELFPAY | PROVIDERS: Admitting Provider Physician Assistant; Emergency Provider Emergency Medicine; PCP Pediatrics; Visit Provider Surgery | DX: K57.20 Diverticulitis of large intestine with perforation and abscess without bleeding (principal) | CPT/HCPCS: 99024; 99223; 99232; 99499 ==

== ENCOUNTER → 2024-04-10 22:21 | Outpatient (BNV) | payer OTHER, SELFPAY | PROVIDERS: Admitting Provider Physician Assistant; Emergency Provider Emergency Medicine; PCP Pediatrics; Visit Provider Internal Medicine Hypertension Specialist | DX: N18.6 End stage renal disease (principal); Z99.2 Dependence on renal dialysis | CPT/HCPCS: 99223 ==

== ENCOUNTER → 2024-04-10 22:21 | Outpatient (BNV) | payer OTHER, SELFPAY | PROVIDERS: Admitting Provider Physician Assistant; Emergency Provider Emergency Medicine; PCP Pediatrics; Visit Provider Internal Medicine Critical Care Medicine | DX: I46.9 Cardiac arrest, cause unspecified (principal); A41.9 Sepsis, unspecified organism; K57.20 Diverticulitis of large intestine with perforation and abscess without bleeding; K57.92 Diverticulitis of intestine, part unspecified, without perforation or abscess without bleeding; N18.6 End stage renal disease; Z99.2 Dependence on renal dialysis; K74.60 Unspecified cirrhosis of liver; I50.9 Heart failure, unspecified | CPT/HCPCS: 99238 ==

== ENCOUNTER → 2024-04-10 22:21 | Outpatient (BNV) | payer OTHER, SELFPAY | PROVIDERS: Admitting Provider Physician Assistant; Emergency Provider Emergency Medicine; PCP Pediatrics; Visit Provider Internal Medicine Gastroenterology | DX: K57.20 Diverticulitis of large intestine with perforation and abscess without bleeding (principal) | CPT/HCPCS: 99222 ==